=== PATIENT | female | born 1935 | race Hispanic/Latino ===

== ENCOUNTER 2017-12-26 11:17 | Emergency (ER) | payer OTHER, MEDICAID ==
[2017-12-26 12:27] LABS: Absolute Lymphocytes (CBC) 0.4 K/uL (0.7-4.9); Absolute Monocytes 0.3 K/uL (0.1-1.3); Absolute Neutrophil 2.7 K/uL (1.8-8.0); Basophils % 7.4 % (0-1.3); Eosinophils % 3.9 % (0-4.4); Hematocrit 35.8 % (36.0-45.0); Lymphocytes % 9.8 % (15.3-44.8); MCH 31.4 pg (27.0-35.0); MCV 90.5 fL (80-100); MPV 8.7 fL (7.6-11.3); Monocytes % 8.9 % (3.3-12.3); RBC Red Blood Cell Count 3.95 M/uL (3.86-4.86)
[2017-12-26] MEDS ORDERED: ALBUTEROL 2.5 MG/3 ML NEB SOL ONE (12:38)
[2017-12-26] MEDS ORDERED: predniSONE 20 MG TAB ONE (12:38)
[2017-12-26] MEDS ORDERED: IPRATROPIUM BROM 0.5MG/2.5ML ONE (12:38)
--- NOTE | 2017-12-26 12:38 | RAD REPORT ---
EXAM DESCRIPTION: RAD - Chest Pa And Lat (2 Views) - 12/26/2017 12:29 pm CLINICAL HISTORY: COPD Chest pain. COMPARISON: Chest Single View dated 02/20/2016; CHEST SINGLE VIEW dated 05/05/2015; CHEST SINGLE VIEW dated 02/13/2011; CHEST PA AND LAT 2 VIEW dated 02/08/2011 FINDINGS: Mild basilar lung opacity is seen on the left associated with a small left pleural effusio n, suggesting developing pneumonia. The heart is mildly prominent size. No displaced fractures. IMPRESSION: Developing left base pneumonia suspected.
[2017-12-26 12:39] LABS: Protime INR 0.98
[2017-12-26 12:52] LABS: BUN Blood Urea Nitrogen 11 mg/dL (7-18); Bicarbonate 27 mmol/L (21-32); Glucose Level 86 mg/dL (74-106); NT PRO-BNP 467 pg/mL (<450); Sodium Level 138 mmol/L (136-145); Troponin (Emerg Dept Use Only) < 0.02 ng/mL (0.0-0.045)
[2017-12-26 12:53] LABS: Blood Morphology Comment NOT SEEN (NOT SEEN); Platelet Estimate ADEQ; Urine White Blood Cell Casts OK
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
[2017-12-26 14:05] VITALS: O2SAT 99
[2017-12-26 14:06] VITALS: BP 168/82; TEMP 97.9
--- NOTE | 2017-12-26 22:07 | EKG ---
Test Date: 2017-12-26 Test Time: 11:42:27 Senior Adults Director: DIETER MEASUREMENT RESULTS: Intervals: Rate: 66 NH: 316 QRSD: 64 QT: 416 QTc: 436 Hibbs: P: 110 NH: 316 QRS: -40 T: -4 INTERPRETIVE STATEMENTS: Sinus rhythm with 1st degree AV block Left axis deviation Inferior infarct, age undetermined Anterior infarct, age undetermined Abnormal ECG Compared to ECG 02/20/2016 10:52:26 No significant changes Electronically Signed On 12-26-17 22:06:12 TABLEAU ANALYST by Thom Bautista
== END 2017-12-26 13:53 | disposition home or self-care (01) ==
LOC: ER 11:17
DX: J18.1 Lobar pneumonia, unspecified organism (principal); R94.31 Abnormal electrocardiogram [ECG] [EKG]; I25.2 Old myocardial infarction; I44.0 Atrioventricular block, first degree
CPT/HCPCS: 36415; 71046; 80048; 83880; 84484; 85025; 85610; 87804; 93005; 99284; J7512

== ENCOUNTER 2018-02-02 12:44 | Emergency (ER) | payer MEDICAID, OTHER ==
[2018-02-02] MEDS ORDERED: ALBUTEROL 2.5 MG/3 ML NEB SOL ONE (14:17)
[2018-02-02 14:45] LABS: Urine Bacteria <20 /HPF (<20); Urine Culture Reflex Order NOT NEEDED; Urine RBC NONE SEEN /HPF (NONE SEEN)
--- NOTE | 2018-02-02 14:47 | RAD REPORT ---
EXAM DESCRIPTION: Janeth Single View02/02/2018 2:18 pm CLINICAL HISTORY: Cough COMPARISON: December 2017 FINDINGS: Lungs are hyperaerated. The lungs appear clear of acute infiltrate. The heart is normal si ze IMPRESSION: No acute abnormalities displayed
--- NOTE | 2018-02-02 15:33 | EKG ---
Test Date: 2018-02-02 Test Time: 14:51:25 Payroll Services Analyst: DIETER MEASUREMENT RESULTS: Intervals: Rate: 95 WI: 284 QRSD: 68 QT: 434 QTc: 545 [place]: P: 77 WI: 284 QRS: -59 T: 66 INTERPRETIVE STATEMENTS: Sinus rhythm with 1st degree AV block Left anterior fascicular block Anterior infarct, age undetermined Prolonged QT Abnormal ECG Compared to ECG 12/26/2017 11:42:27 Left anterior fascicular block now present Prolonged QT interval now present Left-axis deviation no longer present Myocardial infarct finding still present Electronically Signed On 02-02-18 15:32:51 SENIOR CIVIL ENGINEER by Bryon Dsouza
[2018-02-02 15:51] LABS: Absolute Lymphocytes (CBC) 1.4 K/uL (0.7-4.9); Absolute Monocytes 0.6 K/uL (0.1-1.3); Absolute Neutrophil 11.2 K/uL (1.8-8.0); Basophils % 0.6 % (0-1.3); Eosinophils % 0.4 % (0-4.4); Hematocrit 41.1 % (36.0-45.0); Lymphocytes % 10.3 % (15.3-44.8); Monocytes % 4.8 % (3.3-12.3)
[2018-02-02 16:01] LABS: ALT/SGPT 30 U/L (12-78); AST/SGOT 37 U/L (15-37); Albumin 3.6 g/dL (3.4-5.0); Alkaline Phosphatase 162 U/L (45-117); BUN Blood Urea Nitrogen 16 mg/dL (7-18); Bicarbonate 28 mmol/L (21-32); Bilirubin Direct 0.3 mg/dL (0-0.2); Bilirubin Total 0.9 mg/dL (0.2-1.0); Glucose Level 92 mg/dL (74-106); Magnesium 2.1 mg/dL (1.8-2.4); Potassium 3.9 mmol/L (3.5-5.1); Protein, Total 7.9 g/dL (6.4-8.2); Sodium Level 134 mmol/L (136-145); Troponin (Emerg Dept Use Only) < 0.02 ng/mL (0.0-0.045)
[2018-02-02 16:42] LABS: Urine Blood TRACE (NEG); Urine Glucose NEGATIVE (NEG); Urine Protein NEGATIVE (NEG); Urine Specific Gravity 1.015 (1.005-1.030)
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
[2018-02-02] MEDS ORDERED: KETOROLAC 30 MG/ML INJ ONE (17:11)
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
[2018-02-02] MEDS ORDERED: NA CHLORIDE 0.9% 500 ML ONE (17:41)
[2018-02-02] MEDS ORDERED: levoFLOXacin 500 MG TAB ONE (17:41)
[2018-02-02 20:04] VITALS: TEMP 99.6
[2018-02-02 20:07] VITALS: O2SAT 95
[2018-02-02 20:08] VITALS: BP 162/57
== END 2018-02-02 18:46 | disposition home or self-care (01) ==
LOC: ER 12:44
DX: E86.9 Volume depletion, unspecified (principal); J40 Bronchitis, not specified as acute or chronic; R53.81 Other malaise; R53.83 Other fatigue; I10 Essential (primary) hypertension; I25.2 Old myocardial infarction; G20 Parkinson's disease; Z88.0 Allergy status to penicillin; Z88.2 Allergy status to sulfonamides; Z88.5 Allergy status to narcotic agent; Z88.8 Allergy status to other drugs, medicaments and biological substances
CPT/HCPCS: 36415; 71045; 74176; 76377; 80048; 80076; 81003; 81015; 83735; 84145; 84484; 85025; 87040; 87077; 87086; 87088; 87186; 87804; 93005; 96361; 96374; 99285

== ENCOUNTER 2018-09-12 18:56 | Observation (INO) | payer OTHER ==
[2018-09-12] MEDS ORDERED: ONDANSETRON 4 MG/2 ML VIAL ONE (19:40)
[2018-09-12] MEDS ORDERED: NA CHLORIDE 0.9% 1,000 ML ONE (19:40)
--- NOTE | 2018-09-12 19:52 | RAD REPORT ---
EXAM DESCRIPTION: CT - Head Brain Wo Cont - 09/12/2018 7:43 pm CLINICAL HISTORY: Headache, vomiting COMPARISON: February 2016 TECHNIQUE: Axial 5 mm thick images of the head were obtained without IV contrast. All CT scans are performed using dose optimization technique as appropriate and may include automated exposure control or mA/KV adjustment according to patient size. FINDINGS: No intracranial hemorrhage, mass, edema or shift of mid-line structures. No acute cortical based infarction. No cortical edema or sulcal effacement. Atrophy and chronic ischemic changes are m ild and stable. Ventricles are in proportion. No abnormal extra-axial fluid collections. Intracranial findings are stable since comparison. Mastoid air cells and visualized portions of the paranasal sinuses are clear. No acute bony findings. IMPRESSION: Negative non-contrast CT head examination for acute finding. Mild atrophy and chronic ischemic change matching comparison.
--- NOTE | 2018-09-12 19:59 | RAD REPORT ---
EXAM DESCRIPTION: RAD - Chest Single View - 09/12/2018 7:36 pm CLINICAL HISTORY: Cough, hypertension, shortness of breath COMPARISON: January 2018 TECHNIQUE: AP portable chest image was obtained 1938 hour . FINDINGS: Chronic interstitial opacification is present. Left pericardial fat pad noted. No acute rocio ng parenchymal process seen. Heart and vasculature are normal. No measurable pleural effusion and no pneumothorax. No acute bony abnormality seen. No acute aortic findings suspected. IMPRESSION: Chronic interstitial lung disease similar to comparison. No acute chest finding.
[2018-09-12 20:09] LABS: Absolute Lymphocytes (CBC) 1.3 K/uL (0.7-4.9); Basophils % 1.1 % (0-1.3); Hematocrit 45.6 % (36.0-45.0); Lymphocytes % 17.3 % (15.3-44.8); MPV 8.6 fL (7.6-11.3); RBC Red Blood Cell Count 4.97 M/uL (3.86-4.86)
[2018-09-12 20:10] LABS: Protime INR 0.96
[2018-09-12 20:27] LABS: ALT/SGPT 20 U/L (12-78); AST/SGOT 20 U/L (15-37); Albumin 4.3 g/dL (3.4-5.0); Alkaline Phosphatase 139 U/L (45-117); BUN Blood Urea Nitrogen 19 mg/dL (7-18); Bicarbonate 29 mmol/L (21-32); Bilirubin Direct 0.3 mg/dL (0-0.2); Bilirubin Total 1.4 mg/dL (0.2-1.0); Glucose Level 102 mg/dL (74-106); Lipase 219 U/L (73-393); Magnesium 2.2 mg/dL (1.8-2.4); NT PRO-BNP 136 pg/mL (<450); Potassium 3.7 mmol/L (3.5-5.1); Protein, Total 8.4 g/dL (6.4-8.2); Sodium Level 139 mmol/L (136-145); Troponin (Emerg Dept Use Only) < 0.02 ng/mL (0.0-0.045)
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
[2018-09-12 21:41] LABS: Urine Blood TRACE (NEG); Urine Glucose NEGATIVE (NEG); Urine Protein 1+ (NEG); Urine Specific Gravity 1.025 (1.005-1.030)
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
[2018-09-12] MEDS ORDERED: METOPROLOL TAR 50 MG TAB ONE (22:26)
[2018-09-12] MEDS ORDERED: ONDANSETRON 4 MG/2 ML VIAL IV PRN (23:43)
[2018-09-12] MEDS ORDERED: ACETAMINOPHEN 500 MG TAB PO PRN (23:43)
[2018-09-12] MEDS ORDERED: IPRATROPIUM BROM 0.5MG/2.5ML NEB PRN (23:43)
[2018-09-12] MEDS ORDERED: HYDRALAZINE HCL 20 MG/ML VIAL IV PRN (23:43)
[2018-09-12] MEDS ORDERED: NA CHLORIDE 0.9% 1,000 ML IV SCH (23:43)
[2018-09-12] MEDS ORDERED: ALBUTEROL 2.5 MG/3 ML NEB SOL NEB PRN (23:43)
[2018-09-12 23:45] VITALS: BMI 26.0
[2018-09-13 04:38] LABS: CKMB Creatine Kinase MB 1.4 ng/mL (0.3-3.6); Creatine Phosphokinase 63 U/L (26-192); Magnesium 2.1 mg/dL (1.8-2.4); Potassium 3.5 mmol/L (3.5-5.1); Thyroid Stimulating Hormone 1.85 uIU/mL (0.360-3.740); Troponin I < 0.02 ng/mL (0.0-0.045)
[2018-09-13] MEDS ORDERED: METOPROLOL TAR 25 MG TAB PO SCH (06:00)
--- NOTE | 2018-09-13 07:10 | EKG ---
Test Date: 2018-09-12 Test Time: 20:18:05 Car Cleaner: JOURDAN MEASUREMENT RESULTS: Intervals: Rate: 86 OH: 328 QRSD: 72 QT: 362 QTc: 433 Cope: P: 88 OH: 328 QRS: -64 T: 50 INTERPRETIVE STATEMENTS: Sinus rhythm with 1st degree AV block Incomplete right bundle branch block Left anterior fascicular block Cannot rule out Inferior infarct (masked by fascicular block?), age undetermined Anterior infarct, age undetermined Abnormal ECG Compared to ECG 02/02/2018 14:51:25 Incomplete right bundle branch block now present Myocardial infarct finding still present Electronically Signed On 09-13-18 07:10:04 CDT by Thom Bautista
[2018-09-13] MEDS ORDERED: ARFORMOTEROL TARTRATE 15 MCG/2 ML VIAL.NEB NEB SCH (08:00)
[2018-09-13] MEDS ORDERED: ASPIRIN EC 81 MG TAB PO SCH (09:00)
[2018-09-13] MEDS ORDERED: ENOXAPARIN 30 MG/0.3 ML SQ SCH (09:00)
[2018-09-13] MEDS ORDERED: LISINOPRIL 10 MG TAB PO SCH (09:00)
[2018-09-13] MEDS ORDERED: LORAZEPAM 0.5 MG TABLET PO ONE (09:10)
--- NOTE | 2018-09-13 10:30 | RAD REPORT ---
EXAM DESCRIPTION: MRI - Brain Wo Cont - 09/13/2018 10:17 am CLINICAL HISTORY: CVA/dizziness/hypertension emergency COMPARISON: 2016 MRI TECHNIQUE: Axial, sagittal, and coronal magnetic images of the brain were obtained. Contrast was not requested FINDINGS: Mild to moderate signal within periventricular, deep and subcortical white matter is witho ut significant change. Small old left thalamus lacunar infarction Diffusion-weighted/ADC mapping does not reveal evidence of acute infarction. The ventricles are normal caliber. An extra-axial fluid collection is not present The sinuses and mastoids are clear. IMPRESSION: Mild to moderate signal within periventricular, deep and subcortical white matter is wit hout significant change likely ischemic changes secondary to small vessel disease
--- NOTE | 2018-09-13 10:37 | RAD REPORT ---
EXAM DESCRIPTION: MRI - MRA Neck W/Wo Cont - 09/13/2018 10:16 am CLINICAL HISTORY: CVA/dizziness/hypertension emergency COMPARISON: None. TECHNIQUE: Magnetic resonance angiogram of the neck was performed. 13 cc MultiHance was administered intravenously. 3D MIPS reconstruction performed FINDINGS: Mild narrowing of the proximal right subclavian artery The proximal left internal carotid artery is tortuous. Mild plaque is present within the internal carotid arteries. Mild to moderate stenosis involves the proximal left external carotid artery. An aneurysm is not seen . The vertebral arteries are codominant without visualization of an abnormality. IMPRESSION: Mild plaque within the internal carotid arteries NASCET criteria used. Mild 0-49% stenosis Moderate 50-69% stenosis Severe 70-99% stenosis
[2018-09-13] MEDS ORDERED: hydrOXYzine HCl 25 MG TAB PO PRN (10:44)
--- NOTE | 2018-09-13 10:44 | RAD REPORT ---
EXAM DESCRIPTION: MRI - MRA Head Wo Cont - 09/13/2018 10:13 am CLINICAL HISTORY: CVA/dizziness/hypertension emergency COMPARISON: None. TECHNIQUE: Magnetic resonance angiogram was performed. 3D MIPS reconstruction performed FINDINGS: Images are mildly suboptimal secondary to patient motion artifact 3 millimeter bulge of the A 1 segment of the right anterior cerebral artery appears to be present. Ev aluation however is limited. The remainder of the anterior cerebral, middle cerebral, posterior cerebral, distal internal carotid and basilar arteries do not demonstrate a significant stenosis. An aneurysm is not displayed. IMPRESSION: 3 millimeter bulge of the A 1 segment of the right anterior cerebral artery appears to b e present. Evaluation however is limited. It is unclear if this represents a very small aneurysm or h as appearance of one secondary to technical factors. As a precaution it is recommended that the patie nt a followup MRA head in 3 months for re-evaluation
[2018-09-13] MEDS ORDERED: CYANOCOBALAMIN 1000MCG/ML INJ IM SCH (11:00)
[2018-09-13 11:04] VITALS: O2SAT 97
[2018-09-13] MEDS ORDERED: POTASSIUM CL SA 10 MEQ TAB PO ONE (11:20)
[2018-09-13 12:45] LABS: CKMB Creatine Kinase MB 1.5 ng/mL (0.3-3.6); Creatine Phosphokinase 68 U/L (26-192); Troponin I < 0.02 ng/mL (0.0-0.045)
--- NOTE | 2018-09-13 13:00 | ECHO ---
HEIGHT: 5 ft 0 in WEIGHT: 133 lb 8 oz DATE OF STUDY: 09/13/[address]: Luis Hudson DO 2-DIMENSIONAL: YES M.MODE: YES DOPPLER: YES COLOR FLOW: YES TDS: NO PORTABLE: NO DEFINITY: NO BUBBLE STUDY: NO DIAGNOSIS: HYPERTENSION CARDIAC HISTORY: CATHERIZATION: YES SURGERY: NO PROSTHETIC VALVE: NO PACEMAKER: NO MEASUREMENTS (cm) DIASTOLIC (NORMALS) SYSTOLIC (NORMALS) IVSd 0.9 (0.6-1.2) LA Diam 3.2 (1.9-4.0) LVEF 84% LVIDd 4.2 (3.5-5.7) LVIDs 2.0 (2.0-3.5) %FS 52% LVPWd 1.0 (0.6-1.2) Ao Diam 2.6 (2.0-3.7) 2 DIMENSIONAL ASSESSMENT: RIGHT ATRIUM: NORMAL LEFT ATRIUM: NORMAL RIGHT VENTRICLE: NORMAL LEFT VENTRICLE: NORMAL TRICUSPID VALVE: NORMAL MITRAL VALVE: NORMAL PULMONIC VALVE: NORMAL AORTIC VALVE: NORMAL PERICARDIAL EFFUSION: NONE AORTIC ROOT: NORMAL LEFT VENTRICULAR WALL MOTION: NORMAL. DOPPLER/COLOR FLOW: MILD AORTIC, MITRAL AND TRICUSPID REGURGITATION. NORMAL RIGHT VENTRICULAR SYSTOLIC PRESSURE. COMMENTS: NORMAL 2D ECHO. MILD AORTIC, MITRAL AND TRICUSPID REGURGITATION. TECHNOLOGIST: ALE P[place]TMAN
[2018-09-13] MEDS ORDERED: ROPINIROLE HCL 1 MG TAB PO SCH (14:00)
[2018-09-13 14:52] VITALS: BP 147/59; TEMP 98
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
[2018-09-14] MEDS ORDERED: LEVOTHYROXINE SOD 0.05 MG TABLET PO SCH (06:00)
[2018-09-14] MEDS ORDERED: PANTOPRAZOLE 40MG TABLET PO SCH (06:30)
[2018-09-14] MEDS ORDERED: predniSONE 10 MG TAB PO SCH (09:00)
[2018-09-14] MEDS ORDERED: LISINOPRIL 10 MG TAB PO SCH (09:00)
[2018-09-14] MEDS ORDERED: HOME MED 1 EA UNK (Fluticasone/Vilanterol [Breo Ellipta 200-25 Mcg Inh] 1 EACH) IH SCH (09:00)
[2018-09-14] MEDS ORDERED: DULOXETINE 30 MG CAP PO SCH (09:00)
== END 2018-09-13 14:40 | disposition home or self-care (01) ==
LOC: ER 18:56 → ERHOLD 22:04 → 4TH 22:55
PROVIDERS: ADMIT Family Medicine; ATTEND Family Medicine
DX: I16.0 Hypertensive urgency (principal); J44.9 Chronic obstructive pulmonary disease, unspecified; F03.90 Unspecified dementia, unspecified severity, without behavioral disturbance, psychotic disturbance, mood disturbance, and anxiety; F44.5 Conversion disorder with seizures or convulsions; N17.9 Acute kidney failure, unspecified; I25.10 Atherosclerotic heart disease of native coronary artery without angina pectoris; G47.30 Sleep apnea, unspecified; I10 Essential (primary) hypertension; I25.2 Old myocardial infarction; G20 Parkinson's disease; I34.0 Nonrheumatic mitral (valve) insufficiency; I07.1 Rheumatic tricuspid insufficiency; I35.1 Nonrheumatic aortic (valve) insufficiency; I45.2 Bifascicular block; R94.31 Abnormal electrocardiogram [ECG] [EKG]; Z91.128 Patient's intentional underdosing of medication regimen for other reason; Z86.73 Personal history of transient ischemic attack (TIA), and cerebral infarction without residual deficits; I65.23 Occlusion and stenosis of bilateral carotid arteries
CPT/HCPCS: 96361; 93005; 93306; 87088; 85025; 87086; 80048 ×2; 36415; 83735 ×2; 82550 ×2; 85610; 80061; 80076; 84443; 81003; 84484 ×3; 82553 ×2; 84439; 83690; 83880; 70450; 71045; 70551; 70544; 70549; 97161; 94660; 96374; 99285; A9577 ×2; J0360; J1650; J7605; J7030; J2405 ×2; G0378 ×2; 70553

== ENCOUNTER 2018-12-21 11:56 | Emergency (ER) | payer OTHER ==
--- NOTE | 2018-12-21 12:56 | RAD REPORT ---
EXAM DESCRIPTION: RAD - Chest Single View - 12/21/2018 12:50 pm CLINICAL HISTORY: CHEST PAIN Chest pain. COMPARISON: Chest Single View dated 09/12/2018; Chest Single View dated 02/02/2018; Chest Pa And Lat ( 2 Views) dated 12/26/2017; Chest Single View dated 02/20/2016 FINDINGS: Portable technique limits examination quality. The lungs are mildly emphysematous but grossly clear. The heart is normal in size. No displaced fract ures. IMPRESSION: Mild COPD.
[2018-12-21 13:10] LABS: Absolute Lymphocytes (CBC) 1.4 K/uL (0.7-4.9); Basophils % 1.3 % (0-1.3); Hematocrit 40.7 % (36.0-45.0); Lymphocytes % 24.9 % (15.3-44.8)
[2018-12-21 13:11] LABS: Protime INR 0.94
[2018-12-21 13:27] LABS: ALT/SGPT 18 U/L (12-78); AST/SGOT 19 U/L (15-37); Alkaline Phosphatase 112 U/L (45-117); BUN Blood Urea Nitrogen 15 mg/dL (7-18); Bicarbonate 29 mmol/L (21-32); Bilirubin Direct 0.3 mg/dL (0-0.2); Bilirubin Total 1.2 mg/dL (0.2-1.0); Glucose Level 97 mg/dL (74-106); Magnesium 2.2 mg/dL (1.8-2.4); NT PRO-BNP 81 pg/mL (<450); Potassium 3.4 mmol/L (3.5-5.1); Protein, Total 7.4 g/dL (6.4-8.2); Sodium Level 142 mmol/L (136-145); Troponin (Emerg Dept Use Only) < 0.02 ng/mL (0.0-0.045)
--- NOTE | 2018-12-21 13:52 | RAD REPORT ---
EXAM DESCRIPTION: CT - Abdomen Pelvis W Contrast - 12/21/2018 1:42 pm CLINICAL HISTORY: Abdominal pain COMPARISON: 2016 TECHNIQUE: Computed axial tomography of the abdomen pelvis was obtained. 100 cc Isovue-300 was admin istered intravenously. Oral contrast was not requested which limits evaluation of bowel. All CT scans are performed using dose optimization technique as appropriate and may include automated exposure control or mA/KV adjustment according to patient size. FINDINGS: Areas of scarring are present within right anterior lung base. The liver, spleen, pancreas, adrenal and kidneys appear unremarkable. There is no evidence of diverticulitis. Normal appendix Small hiatal hernia. Hysterectomy IMPRESSION: No acute abnormality is displayed.
--- NOTE | 2018-12-21 14:30 | EKG ---
Test Date: 2018-12-21 Test Time: 12:04:47 [facility]: [facility]ATA MEASUREMENT RESULTS: Intervals: Rate: 82 PA: 326 QRSD: 70 QT: 388 QTc: 453 Edna: P: 86 PA: 326 QRS: -66 T: 40 INTERPRETIVE STATEMENTS: Sinus rhythm with 1st degree AV block Left axis deviation Inferior infarct, age undetermined Cannot rule out Anterior infarct, age undetermined Abnormal ECG Compared to ECG 09/12/2018 20:18:05 Left-axis deviation now present Incomplete right bundle-branch block no longer present Left anterior fascicular block no longer present Myocardial infarct finding still present Electronically Signed On 12-21-18 14:29:56 PORT TRAFFIC MANAGER by Bryon Dsouza
[2018-12-21 15:17] LABS: Urine Blood NEGATIVE (NEG); Urine Glucose NEGATIVE (NEG); Urine Protein NEGATIVE (NEG); Urine Specific Gravity 1.015 (1.005-1.030)
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
[2018-12-21 17:37] VITALS: TEMP 97.8
[2018-12-21 17:38] VITALS: O2SAT 96
[2018-12-21 17:40] VITALS: BP 165/76
== END 2018-12-21 16:00 | disposition home or self-care (01) ==
LOC: ER 11:56
DX: R10.9 Unspecified abdominal pain (principal); I10 Essential (primary) hypertension; E78.5 Hyperlipidemia, unspecified; I25.2 Old myocardial infarction; G20 Parkinson's disease; Z88.0 Allergy status to penicillin; Z88.2 Allergy status to sulfonamides; Z88.5 Allergy status to narcotic agent; Z88.8 Allergy status to other drugs, medicaments and biological substances
CPT/HCPCS: 93005; 85025; 80048; 36415; 83735; 85610; 80076; 81003; 84484; 83880; 74177; 71045; 99285; Q9967

== ENCOUNTER 2020-06-15 15:54 | Observation (INO) | payer OTHER ==
[2020-06-15 16:44] LABS: Absolute Lymphocytes (CBC) 1.8 K/uL (0.7-4.9); Basophils % 1.1 % (0-1.3); Hematocrit 44.1 % (36.0-45.0); Lymphocytes % 18.2 % (15.3-44.8); RBC Red Blood Cell Count 4.76 M/uL (3.86-4.86)
[2020-06-15] MEDS ORDERED: NA CHLORIDE 0.9% 500 ML ONE ×2 (16:47→18:03)
[2020-06-15 16:50] LABS: Protime INR 0.97
[2020-06-15 17:09] LABS: Albumin 4.2 g/dL (3.4-5.0); Bilirubin Direct 0.3 mg/dL (0-0.2); Bilirubin Total 1.6 mg/dL (0.2-1.0); Magnesium 2.2 mg/dL (1.8-2.4); Potassium 3.7 mmol/L (3.5-5.1); Protein, Total 7.8 g/dL (6.4-8.2); Thyroid Stimulating Hormone 2.01 uIU/mL (0.360-3.740); Troponin (Emerg Dept Use Only) 0.03 ng/mL (0.0-0.045)
[2020-06-15 17:41] LABS: SARS-COV-2 RT PCR NEGATIVE (NEGATIVE)
--- NOTE | 2020-06-15 17:46 | RAD REPORT ---
EXAM DESCRIPTION: Janeth Single View06/15/2020 5:04 pm CLINICAL HISTORY: Chest pain COMPARISON: 2018 FINDINGS: The lungs appear clear of acute infiltrate. The heart is normal size IMPRESSION: No acute abnormalities displayed
[2020-06-15] MEDS ORDERED: METOPROLOL TARTRATE 5 MG/5 ML INJ IV ONE (18:03)
[2020-06-15] MEDS ORDERED: METOPROLOL TAR 25 MG TAB ONE (18:03)
[2020-06-15] MEDS ORDERED: ENOXAPARIN 60 MG/0.6 ML SQ ONE (18:04)
--- NOTE | 2020-06-15 18:22 | ER ---
Nurse's Notes [facility] Name: Madiha Breaux Age: 85 yrs Sex: Female : 1935 Arrival Date: 06/15/2020 Time: 15:56 Bed 4 Private MD: Diagnosis: Atrial fibrillation and flutter;Chest pain, unspecified;Shortness of breath Presentation: 06/15 16:18 Chief complaint: Patient's son or daughter states: CP/SOB x3 DAYS. Coronavirus screen: bp At this time, the client does not indicate any symptoms associated with coronavirus-19. Ebola Screen: No symptoms or risks identified at this time. Initial Sepsis Screen: Does the patient meet any 2 criteria? HR > 90 bpm. No. Patient's initial sepsis screen is negative. Does the patient have a suspected source of infection? No. Patient's initial sepsis screen is negative. Risk Assessment: Do you want to hurt yourself or someone else? Patient reports no desire to harm self or others. Onset of symptoms is unknown. 16:18 Method Of Arrival: Wheelchair bp 16:18 Acuity: DAMIR 2 bp Triage Assessment: 16:20 General: Appears distressed, uncomfortable, Behavior is cooperative, appropriate for bp age, anxious. Pain: Complains of pain in chest. EENT: No deficits noted. Neuro: No deficits noted. Cardiovascular: Rhythm is sinus tachycardia. Respiratory: Reports shortness of breath. GI: No signs and/or symptoms were reported involving the gastrointestinal system. : No signs and/or symptoms were reported regarding the genitourinary system. Derm: No deficits noted. Musculoskeletal: No deficits noted. Historical: - Allergies: 16:20 Codeine; bp 16:20 Demerol; bp 16:20 lamital; bp 16:20 PENICILLINS; bp 16:20 Sulfa (Sulfonamide Antibiotics); bp - Home Meds: 16:20 amlodipine 5 mg tab 1 tab once daily [Active]; clonazepam 0.5 mg Oral tab [Active]; bp duloxetine 60 mg Oral cpDR 1 cap once daily [Active]; hydroxyzine HCl 25 mg Oral tab [Active]; lisinopril 20 mg Oral tab 1 tab once daily [Active]; omeprazole 20 mg Oral TbEC [Active]; pramipexole 1 mg Oral tab 3 times per day [Active]; primidone 50 mg Oral tab [Active]; ropinirole 1 mg Oral tab 3 times per day [Active]; tamsulosin 0.4 mg Oral cp24 1 cap once daily [Active]; - PMHx: 16:20 CVA; Hyperlipidemia; Hypertension; Myocardial infarction; Parkinsons; bp - Immunization history:: Adult Immunizations unknown. - Social history:: Smoking status: unknown. Screenin:22 Abuse screen: Denies threats or abuse. Denies injuries from another. Nutritional bp screening: No deficits noted. Tuberculosis screening: No symptoms or risk factors identified. Fall Risk None identified. Assessment: 16:22 General: SEE TRIAGE NOTE. bp 16:30 General: Appears in no apparent distress. comfortable, Behavior is calm, cooperative, ld1 appropriate for age. Pain: Denies pain. Pain: Denies pain. Complains of pain in anterior aspect of left upper chest and left breast Pain does not radiate. Pain currently is 5 out of 10 on a pain scale. Quality of pain is described as heavy, pressure, Pain began 2-3 days ago. Is continuous. Neuro: Level of Consciousness is awake, alert, obeys commands, Oriented to person, place, time, situation. Cardiovascular: Capillary refill < 3 seconds Patient's skin is warm and dry. Respiratory: Airway is patent Respiratory effort is even, unlabored, Respiratory pattern is regular, symmetrical. GI: Abdomen is flat, non-distended. : No signs and/or symptoms were reported regarding the genitourinary system. EENT: No signs and/or symptoms were reported regarding the EENT system. Derm: No signs and/or symptoms reported regarding the dermatologic system. 17:56 Reassessment: Patient is alert, oriented x 3, equal unlabored respirations, skin ld1 warm/dry/pink. Pt in bed with daughter at bedside. Waiting on results. Denies any concerns at this time. 18:45 Reassessment: No changes from previously documented assessment. Patient and/or family ld1 updated on plan of care and expected duration. Pain level reassessed. Pt c/o chest pain 8/10. Notified ERP. See MAR for orders. 20:00 Reassessment: Patient reports chest pain, 6/10 on pain scale; daughter at bedside, lp1 aware of pending plan of admission. 20:00 Neuro: Level of Consciousness is awake, alert, obeys commands. Cardiovascular: lp1 Patient's skin is warm and dry. Respiratory: Respiratory effort is even, unlabored. Derm: Skin is thin, Skin is dry, Skin is pink, warm \T\ dry. 20:28 Reassessment: Hospitalist at bedside to discuss care with patient and patient's lp1 daughter. Vital Signs: 16:18 BP 140 / 75; Pulse 134; Resp 24; Temp 97.5; Pulse Ox 95% ; Weight 56.7 kg; bp 16:29 BP 150 / 63; Pulse 124; Resp 15; Temp 97.5(O); Pulse Ox 97% 2 lpm ; Weight 56.7 kg; ld1 Height 5 ft. 3 in. (160.02 cm); Pain 0/10; 17:00 BP 122 / 69; Pulse 88; Resp 14; Pulse Ox 96% ; sv 17:56 BP 136 / 58; Pulse 75; Resp 15; Pulse Ox 98% on 2 lpm NC; Pain 4/10; ld1 18:45 BP 2 / 63; Pulse 77; Resp 16; Pulse Ox 97% on R/A; ld1 19:30 BP 171 / 64; Pulse 60; Resp 17; Pulse Ox 97% on 2 lpm NC; lp1 20:00 BP 192 / 58; Pulse 56; Resp 14; Pulse Ox 98% on 2 lpm NC; Pain 6/10; lp1 21:24 BP 192 / 64; Pulse 58; Resp 14; Temp 97.8(O); Pulse Ox 96% on 2 lpm NC; lp1 16:29 Body Mass Index 22.14 (56.70 kg, 160.02 cm) ld1 ED Course: 15:56 Patient arrived in ED. bg2 16:13 Donnell Omer NP is PHCP. pm1 16:13 Hao Joyce MD is Attending Physician. pm1 16:15 Inge Holliday, AMY is Primary Nurse. ld1 16:19 Triage completed. bp 16:21 Arm band placed on. bp 16:22 Patient has correct armband on for positive identification. Placed in gown. Bed in low bp position. Call light in reach. Side rails up X2. contact lens edge buffer on. Pulse ox on. NIBP on. 16:29 EKG completed in triage. Results shown to MD. ld1 16:30 No provider procedures requiring assistance completed. Inserted saline lock: 20 gauge ld1 in right forearm, using aseptic technique. Oxygen administration via nasal cannula \T\ 2L/min. 16:30 Initial lab(s) drawn, by ED staff, sent to lab. EKG done, by ED staff, reviewed by ld1 Donnell Omer NP COVID swab sent to lab. Flu and/or RSV swab sent to lab. 17:02 XRAY Chest (1 view) In Process Unspecified. EDMS 17:33 Flu Sent. sv 17:34 Basic Metabolic Panel Sent. sv 17:34 CBC with Diff Sent. sv 17:34 NT PRO-BNP Sent. sv 17:34 Magnesium Sent. sv 17:34 LFT's Sent. sv 18:22 Desmond Molina PA is Hospitalizing Provider. pm1 20:06 Luis Hudson DO is Hospitalizing Provider. pm1 20:29 Patient admitted, IV remains in place. lp1 Administered Medications: 16:42 Drug: NS 0.9% 500 ml Route: IV; Rate: bolus; Site: right forearm; ld1 17:56 Follow up: Response: No adverse reaction; IV Status: Completed infusion ld1 17:06 Not Given (Physician Discretion): Lopressor (metoprolol) 5 mg IVP once; Hold for SBP pm1 <100 or HR <60. 17:54 Drug: Lovenox (enoxaparin) 1 mg/kg Route: Sub-Q; Site: abdomen; ld1 17:56 Follow up: Response: No adverse reaction ld1 17:55 Drug: Lopressor (metoprolol TARTRATE)) 25 mg Route: PO; ld1 18:40 Follow up: Response: No adverse reaction ld1 17:55 Drug: Lopressor (metoprolol) 2.5 mg Route: IVP; Site: left forearm; ld1 18:40 Follow up: Response: No adverse reaction ld1 17:55 Drug: NS 0.9% 500 ml Volume: 500 ml; Route: IV; Rate: 1 bolus; Site: right forearm; ld1 18:43 Follow up: Response: No adverse reaction; IV Status: Completed infusion ld1 18:56 Drug: morphine 2 mg Route: IVP; Site: right forearm; ld1 20:27 Drug: morphine 2 mg Route: IVP; Site: right forearm; lp1 21:22 Follow up: Response: Pain is decreased lp1 Outcome: 18:22 Decision to Hospitalize by Provider. pm1 20:29 Condition: stable lp1 20:29 Instructed on the need for admit. 21:55 Admitted to Tele with chart, Other Bedside report to be given lp1 22:04 Patient left the ED. mw2 Signatures: Dispatcher [employer] EDMS Jodi Bellamy RN Kiersten Heart RN RN lp1 Sheeba Jacobson 2 Donnell Omer, CLIENT SERVICE ADMINISTRATOR CLIENT SERVICE ADMINISTRATOR pm1 Seth Morse RN RN bp Keyshawn Canseco mw2 Inge Holliday, AMY RN ld1 Corrections: (The following items were deleted from the chart) 20:29 20:00 BP 192 / 58; Pulse 56bpm; Resp 14bpm; Pulse Ox 98% 2 lpm Nasal Cannula; lp1 lp1
--- NOTE | 2020-06-15 18:22 | EDPHYS ---
Physician Documentation [facility] Name: Madiha Breaux Age: 85 yrs Sex: Female : 1935 Arrival Date: 06/15/2020 Time: 15:56 Bed 4 Private MD: Hao Mahmood HPI: 06/15 16:47 This 85 yrs old Female presents to ER via Wheelchair with complaints of Chest pm1 Pain, Breathing Difficulty. 16:47 The patient or guardian reports chest pain that is located primarily in the anterior pm1 aspect of left upper chest. Onset: 3 day(s) ago. The pain does not radiate. Associated signs and symptoms: Pertinent positives: cough, shortness of breath, Pertinent negatives: abdominal pain, diaphoresis, dizziness, headache, nausea, vomiting. The chest pain is described as aching. Duration: The patient or guardian reports a single episode, that is still ongoing. Modifying factors: The symptoms are alleviated by nothing. the symptoms are aggravated by nothing. Severity of pain: in the emergency department the pain is actually worse. The patient has not recently seen a physician. Historical: - Allergies: 16:20 Codeine; bp 16:20 Demerol; bp 16:20 lamital; bp 16:20 PENICILLINS; bp 16:20 Sulfa (Sulfonamide Antibiotics); bp - Home Meds: 16:20 amlodipine 5 mg tab 1 tab once daily [Active]; clonazepam 0.5 mg Oral tab [Active]; bp duloxetine 60 mg Oral cpDR 1 cap once daily [Active]; hydroxyzine HCl 25 mg Oral tab [Active]; lisinopril 20 mg Oral tab 1 tab once daily [Active]; omeprazole 20 mg Oral TbEC [Active]; pramipexole 1 mg Oral tab 3 times per day [Active]; primidone 50 mg Oral tab [Active]; ropinirole 1 mg Oral tab 3 times per day [Active]; tamsulosin 0.4 mg Oral cp24 1 cap once daily [Active]; - PMHx: 16:20 CVA; Hyperlipidemia; Hypertension; Myocardial infarction; Parkinsons; bp - Immunization history:: Adult Immunizations unknown. - Social history:: Smoking status: unknown. 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 16:47 Abdomen/GI: Negative for abdominal pain, nausea, vomiting, diarrhea, and constipation, Back: Negative for injury and pain, : Negative for injury, bleeding, discharge, and swelling, MS/Extremity: Negative for injury and deformity, Skin: Negative for injury, rash, and discoloration, Neuro: Negative for headache, weakness, numbness, tingling, and seizure. 16:47 Cardiovascular: Positive for chest pain, Negative for edema. 16:47 Respiratory: Positive for cough, shortness of breath. Exam: 16:47 Constitutional: This is a well developed, well nourished patient who is awake, alert, pm1 and in no acute distress. 16:47 Head/Face: Normocephalic, atraumatic. Eyes: Pupils equal round and reactive to light, extra-ocular motions intact. Lids and lashes normal. Conjunctiva and sclera are non-icteric and not injected. Cornea within normal limits. Periorbital areas with no swelling, redness, or edema. 16:47 Chest/axilla: Normal chest wall appearance and motion. Nontender with no deformity. No lesions are appreciated. 16:47 Back: No spinal tenderness. No costovertebral tenderness. Full range of motion. Skin: Warm, dry with normal turgor. Normal color with no rashes, no lesions, and no evidence of cellulitis. MS/ Extremity: Pulses equal, no cyanosis. Neurovascular intact. Full, normal range of motion. 16:47 ENT: External ear(s): are unremarkable, Posterior pharynx: is normal, airway is patent, no erythema, no exudate, no peritonsilar mass, no pooling of secretions, no swelling, no acute changes, Voice: is normal. 16:47 Cardiovascular: Rate: tachycardic, actual rate is 130 bpm, Rhythm: regular, Pulses: no pulse deficits are appreciated, Heart sounds: normal, normal S1and S2, no murmur, no rub, no gallop, Edema: is not appreciated. 16:47 ECG was reviewed by the Attending Physician. 16:47 Respiratory: Exam negative for acute changes, respiratory distress, shortness of breath, Breath sounds: are clear throughout. 16:47 Abdomen/GI: Inspection: abdomen appears normal, Palpation: abdomen is soft and non-tender, in all quadrants. 16:47 Neuro: Exam negative for acute changes, Orientation: is normal, Mentation: is normal, Motor: is normal, moves all fours, Sensation: is normal, no obvious gross deficits. Vital Signs: 16:18 BP 140 / 75; Pulse 134; Resp 24; Temp 97.5; Pulse Ox 95% ; Weight 56.7 kg; bp 16:29 BP 150 / 63; Pulse 124; Resp 15; Temp 97.5(O); Pulse Ox 97% 2 lpm ; Weight 56.7 kg; ld1 Height 5 ft. 3 in. (160.02 cm); Pain 0/10; 17:00 BP 122 / 69; Pulse 88; Resp 14; Pulse Ox 96% ; sv 17:56 BP 136 / 58; Pulse 75; Resp 15; Pulse Ox 98% on 2 lpm NC; Pain 4/10; ld1 18:45 BP 2 / 63; Pulse 77; Resp 16; Pulse Ox 97% on R/A; ld1 19:30 BP 171 / 64; Pulse 60; Resp 17; Pulse Ox 97% on 2 lpm NC; lp1 20:00 BP 192 / 58; Pulse 56; Resp 14; Pulse Ox 98% on 2 lpm NC; Pain 6/10; lp1 21:24 BP 192 / 64; Pulse 58; Resp 14; Temp 97.8(O); Pulse Ox 96% on 2 lpm NC; lp1 16:29 Body Mass Index 22.14 (56.70 kg, 160.02 cm) ld1 MDM: 16:14 Patient medically screened. [facility] 16:47 Data interpreted: Pulse oximetry: on room air is 96 %. Interpretation: normal. pm1 17:40 Data reviewed: vital signs. pm1 18:21 Counseling: I had a detailed discussion with the patient and/or guardian regarding: the pm1 historical points, exam findings, and any diagnostic results supporting the discharge/admit diagnosis, lab results, radiology results, the need for further work-up and treatment in the hospital. 20:11 Physician consultation: Desmond OCHOA was contacted at 20:11, regarding admission, pm1 patient's condition, and will see patient in ED. 06/15 16:23 Order name: Basic Metabolic Panel pm1 06/15 16:23 Order name: CBC with Diff pm1 06/15 16:23 Order name: LFT's pm06/15 16:23 Order name: Magnesium pm1 06/15 16:23 Order name: NT PRO-BNP pm1 06/15 16:23 Order name: PT-INR; Complete Time: 16:59 pm1 06/15 16:23 Order name: Troponin (emerg Dept Use Only); Complete Time: 17:13 pm1 06/15 16:24 Order name: Basic Metabolic Panel; Complete Time: 17:13 EDMS 06/15 16:24 Order name: CBC with Automated Diff; Complete Time: 16:59 EDMS 06/15 16:24 Order name: Liver (Hepatic) Function; Complete Time: 17:13 EDMS 06/15 16:24 Order name: Magnesium; Complete Time: 17:13 EDMS 06/15 16:24 Order name: NT PRO-BNP; Complete Time: 17:13 EDMS 06/15 16:26 Order name: Flu pm1 06/15 16:23 Order name: XRAY Chest (1 view); Complete Time: 17:47 pm1 06/15 16:23 Order name: EKG; Complete Time: 16:25 pm1 06/15 16:23 Order name: Cardiac monitoring; Complete Time: 16:41 pm1 06/15 16:48 Order name: Thyroid Stimulating Hormone; Complete Time: 17:13 EDMS 06/15 17:07 Order name: EKG; Complete Time: 17:08 pm1 06/15 17:41 Order name: COVID-19/FLU A+B; Complete Time: 17:46 EDMS 06/15 20:41 Order name: CONS Physician Consult EDMS 06/15 16:23 Order name: EKG - Nurse/Tech; Complete Time: 16:41 pm1 06/15 16:23 Order name: IV Saline Lock; Complete Time: 16:41 pm1 06/15 16:23 Order name: Labs collected and sent; Complete Time: 16:43 pm1 06/15 16:23 Order name: O2 Per Protocol; Complete Time: 16:43 pm1 06/15 16:23 Order name: O2 Sat Monitoring; Complete Time: 16:42 pm1 06/15 17:07 Order name: EKG - Nurse/Tech; Complete Time: 18:43 pm1 EC:47 Rate is 130 beats/min. Rhythm is regular, A flutter. No Q waves. T waves are Normal. No pm1 ST changes noted. Clinical impression: Atrial Flutter. 18:20 Rate is 74 beats/min. Rhythm is regular, Normal Sinus Rhythm with 1st degree heart pm1 block. No Q waves. T waves are Normal. No ST changes noted. Clinical impression: NSR with first degree block. Administered Medications: 16:42 Drug: NS 0.9% 500 ml Route: IV; Rate: bolus; Site: right forearm; ld1 17:56 Follow up: Response: No adverse reaction; IV Status: Completed infusion ld1 17:06 Not Given (Physician Discretion): Lopressor (metoprolol) 5 mg IVP once; Hold for SBP pm1 <100 or HR <60. 17:54 Drug: Lovenox (enoxaparin) 1 mg/kg Route: Sub-Q; Site: abdomen; ld1 17:56 Follow up: Response: No adverse reaction ld1 17:55 Drug: Lopressor (metoprolol TARTRATE)) 25 mg Route: PO; ld1 18:40 Follow up: Response: No adverse reaction ld1 17:55 Drug: Lopressor (metoprolol) 2.5 mg Route: IVP; Site: left forearm; ld1 18:40 Follow up: Response: No adverse reaction ld1 17:55 Drug: NS 0.9% 500 ml Volume: 500 ml; Route: IV; Rate: 1 bolus; Site: right forearm; ld1 18:43 Follow up: Response: No adverse reaction; IV Status: Completed infusion ld1 18:56 Drug: morphine 2 mg Route: IVP; Site: right forearm; ld1 20:27 Drug: morphine 2 mg Route: IVP; Site: right forearm; lp1 21:22 Follow up: Response: Pain is decreased lp1 Disposition: 06/16 09:53 Co-signature as Attending Physician, Hao Joyce MD I agree with the assessment and salvador plan of care. Disposition: 06/15/20 18:22 Hospitalization ordered by Luis Hudson for Observation. Preliminary diagnosis are Atrial fibrillation and flutter, Chest pain, unspecified, Shortness of breath. - Bed requested for Telemetry/MedSurg (observation). - Status is Observation. mw2 - Condition is Stable. - Problem is new. - Symptoms have improved. Signatures: Dispatcher [employer] EDVT Ghazal Yun RN Hao Elmore MD MD cha Pena, Laura, RN RN lp1 Donnell Omer, MEAT HANGER MEAT HANGER pm1 Seth Morse, RN RN Keyshawn Canseco mw2 Inge Holliday, RN RN ld1 Corrections: (The following items were deleted from the chart) 05 16:48 16:29 THYROID STIMULAT HORMONE+C.LAB.BRZ ordered. EDVT EDMS 16:57 16:27 Influenza Screen (A ordered. EDVT EDMS 16:58 16:24 CORONAVIRUS+MR.LAB.BRZ ordered. [facility] EDMS 20:06 18:22 Hospitalization Ordered by Desmond OCHOA for Observation. Preliminary diagnosis pm1 is Atrial fibrillation and flutter; Chest pain, unspecified; Shortness of breath. Bed requested for Telemetry/MedSurg (observation). Status is Observation. Condition is Stable. Problem is new. Symptoms have improved. pm1 20:54 20:06 06/15/2020 18:22 Hospitalization Ordered by Luis Hudson DO for Observation. mw Preliminary diagnosis is Atrial fibrillation and flutter; Chest pain, unspecified; Shortness of breath. Bed requested for Telemetry/MedSurg (observation). Status is Observation. Condition is Stable. Problem is new. Symptoms have improved. pm1 22:04 20:54 06/15/2020 18:22 Hospitalization Ordered by Luis Hudson DO for Observation. mw2 Preliminary diagnosis is Atrial fibrillation and flutter; Chest pain, unspecified; Shortness of breath. Bed requested for Telemetry/MedSurg (observation). Status is Observation. Condition is Stable. Problem is new. Symptoms have improved. mw
[2020-06-15] MEDS ORDERED: MORPHINE 2 MG/ML SYR ONE ×2 (19:12→20:41)
[2020-06-15] MEDS ORDERED: NITROGLYCERIN 0.4 MG/TAB SL PRN (21:10)
[2020-06-15] MEDS ORDERED: ACETAMINOPHEN 500 MG TAB PO PRN (21:10)
[2020-06-15] MEDS ORDERED: MORPHINE 2 MG/ML SYR IV PRN (21:10)
[2020-06-15] MEDS ORDERED: NA CHLORIDE 0.9% 1,000 ML IV SCH (21:10)
[2020-06-15] MEDS ORDERED: ONDANSETRON 4 MG/2 ML VIAL IV PRN (21:10)
[2020-06-15] MEDS ORDERED: HYDRALAZINE HCL 20 MG/ML VIAL IV PRN ×2 (21:10→22:49)
[2020-06-15] MEDS: INSULIN -REGULAR HUMAN 50 UNIT/0.5 ML ML SQ SCH (21:10)
[2020-06-15 22:30] VITALS: BMI 3605.0
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
[2020-06-15 22:40] VITALS: O2SAT 97
[2020-06-15] MEDS ORDERED: HYDRALAZINE HCL 20 MG/ML VIAL IV ONE (22:46)
[2020-06-16 03:57] LABS: Urine Appearance CLOUDY (Clear); Urine Bilirubin NEGATIVE (Negataive); Urine Blood NEGATIVE (Negative); Urine Color YELLOW (Yellow); Urine Glucose NEGATIVE (Negative); Urine Protein NEGATIVE (Negative); Urine Specific Gravity 1.015 (1.005-1.030)
[2020-06-16 03:59] LABS: Urine Microscopic Reflex ORDER UMIC
[2020-06-16 04:04] LABS: Absolute Lymphocytes (CBC) 1.3 K/uL (0.7-4.9); Basophils % 2.1 % (0-1.3); Hematocrit 38.4 % (36.0-45.0); Lymphocytes % 24.1 % (15.3-44.8); MPV 9.1 fL (7.6-11.3); RBC Red Blood Cell Count 4.15 M/uL (3.86-4.86)
[2020-06-16 04:21] LABS: Albumin 3.4 g/dL (3.4-5.0); Bilirubin Total 0.9 mg/dL (0.2-1.0); Phosphorus 3.4 mg/dL (2.5-4.9); Potassium 3.3 mmol/L (3.5-5.1); Protein, Total 6.5 g/dL (6.4-8.2)
[2020-06-16 04:39] LABS: Urine Bacteria >50 /HPF (<20); Urine RBC <5 /HPF (NONE SEEN)
[2020-06-16] MEDS ORDERED: METOPROLOL TAR 25 MG TAB PO SCH (06:00)
[2020-06-16] MEDS ORDERED: POTASSIUM 25 MEQ EFFERV TAB PO ONE (06:08)
[2020-06-16] MEDS ORDERED: POTASSIUM CL SA 10 MEQ TAB PO ONE (06:24)
[2020-06-16] MEDS: INSULIN -REGULAR HUMAN 50 UNIT/0.5 ML ML SQ SCH ×2 (07:30→11:30)
[2020-06-16] MEDS ORDERED: DULERA 200/5 (MOMETASONE/FORMOTEROL) INHALER IH SCH (08:00)
[2020-06-16] MEDS ORDERED: HEPARIN 5000 UNIT/ML 1 ML VIAL SQ SCH (09:00)
[2020-06-16] MEDS ORDERED: GLYCERIN OPTH SCH ×2 (09:00→21:00)
[2020-06-16] MEDS ORDERED: ASPIRIN EC 81 MG TAB PO SCH (09:00)
[2020-06-16] MEDS ORDERED: APIXABAN 5 MG TABLET PO SCH ×2 (09:00)
[2020-06-16] MEDS ORDERED: CARBOXYMETHYLCELLULOSE OPTH SCH ×2 (09:00→21:00)
--- NOTE | 2020-06-16 10:23 | P.DS ---
Admission Date: 06/15/20 Discharge Date: 06/16/20 Primary Care Provider: Dr. Nieto Disposition: ROUTINE DISCHARGE Discharge Condition: GOOD Reason for Admission: atrial flutter, chest pain Consultations: Cardiology-Dr. Dsouza Procedures: COVID: Negative CXR: CLINICAL HISTORY: Chest pain COMPARISON: 2019 FINDINGS: The lungs appear clear of acute infiltrate. The heart is normal size IMPRESSION: No acute abnormalities displayed Medical Problem List: Atrial fibrillation with RVR Hyperlipidemia Hypothyroidism COPD Brief History of Present Illness: 85 yo female with HTN, HLD, COPD, afib s/p cardiac ablation, h/o ME and CVA here today for 3 days of chest pain and SOB. She describes 8/10 left sided dull, heavy chest pain that is constant but worse with exertion. She reports feeling like she is about to pass out when she has the chest pain, and both of her arms will feel numb. She says she has noticed her BP has been higher when she is active. Does not take BP medications at home. When she rests the pain subsides but doesn't disappear. Her power press operator is Dr. Elizabeth who she last saw 2 years ago. EKG showed aflutter, rate 130bpm. Rate controlled with lopressor in the ED. BP 192/58 at bedisde. BUN 26, GFR 40, Glu 154. Patient was admitted for further evaluation and treatment. Hospital Course: Patient presented with chest pain and shortness of breath. Patient with history of atrial fibrillation, hypertension, hyperlipidemia. Patient also with history of cardiac ablation. She had been without medication as she recently moved back to the area. Blood pressures were elevated. Patient with atrial fibrillation upon admission. Patient was given IV metoprolol and hydralazine with improvement. Patient now in sinus rhythm. Patient seen and evaluated by cardiology. Patient without chest pain or shortness of breath. At discharge cardiology recommends to continue Eliquis 5 mg 1 pill twice daily for chronic anticoagulation therapy. Education provided. Education on Eliquis and atrial fibrillation provided. Recommend follow-up with cardiology in 1 week to follow- up hospitalization and continue her care. Patient had elevated blood pressure upon admission. Patient was given IV hydralazine and metoprolol. Patient not able to tolerate metoprolol due to low heart rate. Patient was given hydralazine instead. At discharge patient will continue with hydralazine 25 mg 1 pill twice daily for hypertension. Hold medication if blood pressure systolic less than 110. Recommend blood pressure less than 130/80. Further adjustment in medication can be done by PCP or cardiology. Recommend follow-up with cardiology within 1 week to follow-up his hospitalization and continue her care. Patient with hyperlipidemia. LDL elevated at 130. At discharge patient will continue with Lipitor 10 mg daily. Recommend to recheck fasting lipid panel in 4 to 6 weeks to monitor her progress. Further adjustment can be done by her PCP or cardiology. Patient with COPD. At discharge patient will continue with Symbicort 2 puffs t wice daily. Recommend follow-up with pulmonology as an outpatient to further monitor and address. Advance care planning addressed in detail. Patient is full code. Patient will go home at discharge. Vital Signs/Physical Exam: Temp Pulse Resp BP Pulse Ox 96.9 F 53 18 141/64 H 96 06/16/20 07:40 06/16/20 07:40 06/16/20 07:40 06/16/20 07:40 06/16/20 07:40 General: Alert, In no apparent distress, Oriented x3, Cooperative HEENT: Atraumatic Neck: Supple Respiratory: Clear to auscultation bilaterally, Normal air movement Cardiovascular: Normal pulses, Regular rate/rhythm Gastrointestinal: Normal bowel sounds, No tenderness, No masses, No rebound, No guarding Musculoskeletal: No erythema, No tenderness, No warmth Integumentary: No tenderness/swelling Neurological: Normal speech, Normal strength at 5/5 x4 extr, Normal tone, Normal affect Laboratory Data at Discharge: WBC 5.30 K/uL (4.3-10.9) D 06/16/20 02:56 Hgb 12.9 g/dL (12.0-15.0) 06/16/20 02:56 Hct 38.4 % (36.0-45.0) 06/16/20 02:56 Plt Count 198 K/uL (152-406) D 06/16/20 02:56 PT 11.2 SECONDS (9.5-12.5) 06/15/20 16:30 INR 0.97 06/15/20 16:30 Sodium 144 mmol/L (136-145) 06/16/20 02:56 Potassium 3.3 mmol/L (3.5-5.1) L 06/16/20 02:56 BUN 20 mg/dL (7-18) H 06/16/20 02:56 Creatinine 0.89 mg/dL (0.55-1.3) 06/16/20 02:56 Glucose 128 mg/dL (74-106) H 06/16/20 02:56 Phosphorus 3.4 mg/dL (2.5-4.9) 06/16/20 02:56 Magnesium 2.0 mg/dL (1.8-2.4) 06/16/20 02:56 Total Bilirubin 0.9 mg/dL (0.2-1.0) 06/16/20 02:56 AST 15 U/L (15-37) 06/16/20 02:56 ALT 15 U/L (12-78) 06/16/20 02:56 Alkaline Phosphatase 74 U/L (45-117) 06/16/20 02:56 Troponin I 0.04 ng/mL (0.0-0.045) 06/16/20 02:56 Triglycerides 104 mg/dL (<150) 06/16/20 02:56 Cholesterol 215 mg/dL (<200) H 06/16/20 02:56 HDL Cholesterol 64 mg/dL (40-60) H 06/16/20 02:56 Cholesterol/HDL Ratio 3.36 06/16/20 02:56 Home Medications: Carboxymethylcellulos/Glycerin [Refresh Relieva 0.5-0.9% Drop] 1 drop LEFT EYE DAILY 06/15/20 Latanoprost Ophth [Xalatan 0.005%*] 1 drop LEFT EYE BEDTIME 06/15/20 Propylene Glycol [Systane Balance] 2 drops LEFT EYE BEDTIME 06/15/20 Apixaban [Eliquis] 5 mg PO BID #60 tablet 06/16/20 Atorvastatin Calcium [Lipitor] 10 mg PO BEDTIME #30 tab 06/16/20 Budesonide/Formoterol Fumarate [Symbicort 160-4.5 Mcg Inhaler] 2 puff PO BID #1 MDD 2 puffs 06/16/20 Hydralazine [Apresoline*] 25 mg PO BID #60 tab 06/16/20 New Medications: Hydralazine [Apresoline*] 25 mg PO BID #60 tab Apixaban [Eliquis] 5 mg PO BID #60 tablet Atorvastatin Calcium [Lipitor] 10 mg PO BEDTIME #30 tab Budesonide/Formoterol Fumarate [Symbicort 160-4.5 Mcg Inhaler] 2 puff PO BID #1 MDD 2 puffs Physician Discharge Instructions: Patient presented with chest pain and shortness of breath. Patient with history of atrial fibrillation, hypertension, hyperlipidemia. Patient also with history of cardiac ablation. She had been without medication as she recently moved back to the area. Blood pressures were elevated. Patient with atrial fibrillation upon admission. Patient was given IV metoprolol and hydralazine with improvement. Patient now in sinus rhythm. Patient seen and evaluated by cardiology. Patient without chest pain or shortness of breath. At discharge cardiology recommends to continue Eliquis 5 mg 1 pill twice daily for chronic anticoagulation therapy. Education provided. Education on Eliquis and atrial fibrillation provided. Recommend follow-up with cardiology in 1 week to follow- up hospitalization and continue her care. Patient had elevated blood pressure upon admission. Patient was given IV hydralazine and metoprolol. Patient not able to tolerate metoprolol due to low heart rate. Patient was given hydralazine instead. At discharge patient will continue with hydralazine 25 mg 1 pill twice daily for hypertension. Hold medication if blood pressure systolic less than 110. Recommend blood pressure less than 130/80. Further adjustment in medication can be done by PCP or cardiology. Recommend follow-up with cardiology within 1 week to follow-up his hospitalization and continue her care. Patient with hyperlipidemia. LDL elevated at 130. At discharge patient will continue with Lipitor 10 mg daily. Recommend to recheck fasting lipid panel in 4 to 6 weeks to monitor her progress. Further adjustment can be done by her PCP or cardiology. Patient with COPD. At discharge patient will continue with Symbicort 2 puffs twice daily. Recommend follow-up with pulmonology as an outpatient to further monitor and address. Advance care planning addressed in detail. Patient is full code. Patient will go home at discharge. Diet: AHA Activity: Ad angle Followup: Darryl Nieto MD [Primary Care Provider] - Time spent managing pt's care (in minutes): 55
[2020-06-16 12:05] VITALS: BP 138/64; TEMP 97.9
[2020-06-16] MEDS ORDERED: LATANOPROST 0.005% 2.5ML OPTH OPTH SCH (21:00)
[2020-06-16] MEDS ORDERED: SYSTANE BALANCE OPTH SCH (21:00)
[2020-06-16] MEDS ORDERED: ATORVASTATIN 10 MG TAB PO SCH (21:00)
--- NOTE | 2020-06-17 08:24 | ECHO ---
HEIGHT: 5 ft 0 in WEIGHT: 128 lb 3.2 oz DATE OF STUDY: 06/16/[address]: Luis Hudson DO 2-DIMENSIONAL: YES M.MODE: YES DOPPLER: YES COLOR FLOW: YES TDS: NO PORTABLE: NO DEFINITY: NO BUBBLE STUDY: NO DIAGNOSIS: ATRIAL FIBRILLATION CARDIAC HISTORY: CATHERIZATION: YES SURGERY: YES PROSTHETIC VALVE: NO PACEMAKER: NO MEASUREMENTS (cm) DIASTOLIC (NORMALS) SYSTOLIC (NORMALS) IVSd 1.0 (0.6-1.2) LA Diam 4.1 (1.9-4.0) LVEF 60-65% LVIDd 3.9 (3.5-5.7) LVIDs 2.1 (2.0-3.5) %FS 47% LVPWd 1.1 (0.6-1.2) Ao Diam 2.8 (2.0-3.7) 2 DIMENSIONAL ASSESSMENT: RIGHT ATRIUM: NORMAL LEFT ATRIUM: NORMAL RIGHT VENTRICLE: NORMAL LEFT VENTRICLE: NORMAL TRICUSPID VALVE: MITRAL VALVE: PULMONIC VALVE: AORTIC VALVE: PERICARDIAL EFFUSION: NONE AORTIC ROOT: NORMAL LEFT VENTRICULAR WALL MOTION: NORMAL DOPPLER/COLOR FLOW: SEE BELOW. COMMENTS: NORMAL LEFT VENTRICULAR EJECTION FRACTION 60-65% WITH NORMAL WALL MOTION. MILD TRICUSPID, PULMONARY AND MITRAL REGURGITATION. MODERATE AORTIC INSUFFICENCY. TECHNOLOGIST: Danay ELLSWORTH
[2020-06-17] MEDS ORDERED: levoFLOXacin 500 MG TAB PO SCH (09:00)
--- NOTE | 2020-06-18 08:56 | CON ---
Date of Consultation: 06/16/2020 Reason For Consultation: Chest pain, atrial flutter, and shortness of breath. History Of Present Illness: Ms. Breaux is an 85-year-old woman, who has had history of CVA, has had history atrial fibrillation and ablation many years ago. Has a history of hypertension, dyslipidemia , coronary artery disease, neuropathy, gastroesophageal reflux disease. Has had and depre ssion. She normally sees Emilia. Came into the hospital mostly with atypical chest pain and shortness of breath, palpitation, was found to be in flutter, potassium of 3.3. Troponin was negative. She i s in sinus rhythm now, on IV beta-blockers. She is asymptomatic at this point. Past Medical History: As stated above. Allergies: SHE IS ALLERGIC TO FENTANYL, PENICILLIN, SULFA, AND HYDROCODONE. Medications: At home include inhalers only. She is presently being placed on hydralazine, Lipitor, aspirin, and Eliquis because of hypertension and atrial flutter. Review of Systems: Negative. Social History: Negative. Family History: Negative. Physical Examination: Vital Signs: She was in sinus bradycardia at heart rate of 53. HEENT: Negative. Neck: Supple with no bruit. Chest: Clear. Cardiac: Revealed bradycardia with S4 gallops. No murmurs or rubs. Abdomen: Benign. Extremities: Revealed no clubbing, cyanosis, or edema. Diagnostic Data: As listed earlier. Impression And Plan: 1.Paroxysmal atrial flutter. I think the patient should be on a low-dose Eliquis. 2.History of cerebrovascular accident, coronary artery disease, and dyslipidemia. She should be on Lipitor and hydralazine and aspirin. Her other problems including neuropathy, gastroesophageal reflu x disease, arthritis, and depression are stable. Ms. Breaux has already had an ablation. She has a heart rate of 53 right now without any beta-blockers and I am uncomfortable putting her on Betapace o r amiodarone or metoprolol. I think . Meanwhile, I would like to see her in the office as an outpatient. She has an echocardiogram pending outpatient Lexiscan. MCNALLY/KATTY Voice ID: [id number] Report ID: [id number]
== END 2020-06-16 13:05 | disposition home or self-care (01) ==
LOC: ER 15:54 → ERHOLD 20:51 → INTOOBSV 20:51 → 4TH 22:27
PROVIDERS: ADMIT Family Medicine; ATTEND Family Medicine
DX: I48.91 Unspecified atrial fibrillation (principal); E78.5 Hyperlipidemia, unspecified; E03.9 Hypothyroidism, unspecified; J44.9 Chronic obstructive pulmonary disease, unspecified; N39.0 Urinary tract infection, site not specified; Z20.822 Contact with and (suspected) exposure to COVID-19; I10 Essential (primary) hypertension; I25.10 Atherosclerotic heart disease of native coronary artery without angina pectoris; K21.9 Gastro-esophageal reflux disease without esophagitis; G62.9 Polyneuropathy, unspecified; I48.92 Unspecified atrial flutter; Z86.73 Personal history of transient ischemic attack (TIA), and cerebral infarction without residual deficits; M19.90 Unspecified osteoarthritis, unspecified site; F32.9 Major depressive disorder, single episode, unspecified; I25.2 Old myocardial infarction; G47.33 Obstructive sleep apnea (adult) (pediatric); R94.31 Abnormal electrocardiogram [ECG] [EKG]
CPT/HCPCS: 93005 ×4; 93306; 87088; 85025 ×2; 87086; 80048; 36415; 83735 ×2; 84100; 85610; 80061; 82947 ×3; 80076; 84443; 83036; 84484 ×3; 84439; 80053; 83880; 0240U; 71045; 94760; 96372; 99285; J0360; J1650; J2270 ×2; J7040 ×2; J7030; J2405; 81003; 81015; 87077; 87186; G0378

== ENCOUNTER 2021-01-25 13:54 | Emergency (ER) | payer OTHER ==
[2021-01-25 14:41] LABS: Absolute Lymphocytes (CBC) 1.6 K/uL (0.7-4.9); Basophils % 2.9 % (0-1.3); Hematocrit 41.8 % (36.0-45.0); Lymphocytes % 21.4 % (15.3-44.8); MPV 8.4 fL (7.6-11.3); Protime INR 0.94; RBC Red Blood Cell Count 4.53 M/uL (3.86-4.86)
[2021-01-25 14:59] LABS: ALT/SGPT 20 U/L (12-78); AST/SGOT 19 U/L (15-37); Alkaline Phosphatase 117 U/L (45-117); BUN Blood Urea Nitrogen 21 mg/dL (7-18); Bicarbonate 28 mmol/L (21-32); Bilirubin Direct 0.2 mg/dL (0-0.2); Bilirubin Total 0.8 mg/dL (0.2-1.0); Glucose Level 102 mg/dL (74-106); Potassium 3.8 mmol/L (3.5-5.1); Sodium Level 143 mmol/L (136-145)
[2021-01-25 15:00] LABS: Albumin 3.9 g/dL (3.4-5.0); Magnesium 2.3 mg/dL (1.8-2.4); NT PRO-BNP 157 pg/mL (<450); Protein, Total 7.7 g/dL (6.4-8.2); Troponin (Emerg Dept Use Only) < 0.02 ng/mL (0.0-0.045)
--- NOTE | 2021-01-25 15:55 | RAD REPORT ---
EXAM DESCRIPTION: CT - Angio Aorta For Dissection - 01/25/2021 3:33 pm CLINICAL HISTORY: . Chest and abd pain COMPARISON: 2019 TECHNIQUE: Computed tomography angiography of the chest, abdomen pelvis were obtained. 100 cc Isovue 370 was administered intravenously. Coronal and sagittal reconstruction were performed. MIP 3D reconstruction was performed All CT scans are performed using dose optimization technique as appropriate and may include automated exposure control or mA/KV adjustment according to patient size. FINDINGS: Some images are degraded by motion artifact An aortic dissection is not seen. An aortic aneurysm is not displayed. The celiac, SMA and AUBRIE are patent . Mild tree-in-bud opacities right lung. A pericardial effusion is not seen. A pleural effusion is not noted. The liver,spleen, pancreas, adrenals and kidneys demonstrate no acute abnormality. Cortical thinning involves the kidneys. There no evidence diverticulitis. Spondylosis involves lumbar spine resulting in spinal stenosis. No rmal appendix IMPRESSION: Negative for an aortic dissection. Mild tree-in-bud opacities right lung may indicate an atypical pneumonia
--- NOTE | 2021-01-25 15:56 | RAD REPORT ---
EXAM DESCRIPTION: Janeth Single View01/25/2021 2:27 pm CLINICAL HISTORY: Chest pain COMPARISON: 2018 FINDINGS: Mild reticulonodular opacities right lung may indicate a mild atypical pneumonia Left lung appears clear. Heart is normal size
[2021-01-25] MEDS ORDERED: cloNIDine HCL 0.1 MG TAB ONE (16:25)
[2021-01-25] MEDS ORDERED: KETOROLAC 30 MG/ML INJ ONE (16:48)
[2021-01-25] MEDS ORDERED: METHYLPREDNISOLONE 125 MG INJ ONE (16:48)
[2021-01-25] MEDS ORDERED: Levofloxacin500mg IV 500 MG/100 ML BAG IV ONE (16:49)
[2021-01-25 17:06] LABS: SARS-COV-2 RT PCR NEGATIVE (NEGATIVE)
--- NOTE | 2021-01-25 17:12 | ER ---
Nurse's Notes [facility] Name: Madiha Breaux Age: 86 yrs Sex: Female : 1935 Arrival Date: 01/25/2021 Time: 13:57 Bed 2 Private MD: Diagnosis: Pneumonia, unspecified organism;Pleurisy Presentation: 01/25 14:21 Chief complaint: EMS states: Back and shoulder pain that began about an hour ago; vg1 states pain with deep inhalation and movement. Pt family stated pt c/o difficulty breathing and shortness of breath. Coronavirus screen: Vaccine status: Patient reports being unvaccinated. Client denies travel out of the [place] in the last 14 days. Ebola Screen: Patient negative for fever greater than or equal to 101.5 degrees Fahrenheit, and additional compatible Ebola Virus Disease symptoms. Initial Sepsis Screen: Does the patient meet any 2 criteria? No. Patient's initial sepsis screen is negative. Does the patient have a suspected source of infection? No. Patient's initial sepsis screen is negative. Risk Assessment: Do you want to hurt yourself or someone else? Patient reports no desire to harm self or others. Onset of symptoms was January 25, 2021. 14:21 Method Of Arrival: EMS: [facility] vg1 14:21 Acuity: DAMIR 3 vg1 Triage Assessment: 14:22 General: Appears in no apparent distress. comfortable, Behavior is calm, cooperative. vg1 Pain: Complains of pain in left scapular area, right scapular area and thoracic area Pain currently is 7 out of 10 on a pain scale. Pain began 1 hour ago. EENT: No signs and/or symptoms were reported regarding the EENT system. Neuro: Level of Consciousness is awake, alert, obeys commands, Oriented to person, place, time, situation. Cardiovascular: Patient's skin is warm and dry. Respiratory: Reports shortness of breath pain with movement pain with respiration Airway is patent Respiratory effort is even, unlabored. GI: No signs and/or symptoms were reported involving the gastrointestinal system. : No signs and/or symptoms were reported regarding the genitourinary system. Derm: Skin Skin is pink, warm \\T\\ dry. Musculoskeletal: Circulation, motion, and sensation intact. Historical: - Allergies: 14:22 Codeine; vg1 14:22 Demerol; vg1 14:22 lamital; vg1 14:22 PENICILLINS; vg1 14:22 Sulfa (Sulfonamide Antibiotics); vg1 - Home Meds: 14:22 Hydralazine Oral [Active]; atorvastatin oral [Active]; potassium chloride Oral vg1 [Active]; budesonide oral [Active]; - PMHx: 14:22 CVA; Hyperlipidemia; Hypertension; Myocardial infarction; Parkinsons; Congestive heart vg1 failure; PTSD; Hyperlipidemia; - Immunization history:: Client reports having NOT received the Covid vaccine. - Social history:: Smoking status: Patient denies any tobacco usage or history of. - Family history:: not pertinent. - Hospitalizations: : No recent hospitalization is reported. Screenin:29 Abuse screen: Denies threats or abuse. Nutritional screening: No deficits noted. vg1 Tuberculosis screening: No symptoms or risk factors identified. Fall Risk No fall in past 12 months (0 pts). No secondary diagnosis (0 pts). IV access (20 points). Ambulatory Aid- None/Bed Rest/Nurse Assist (0 pts). Gait- Normal/Bed Rest/Wheelchair (0 pts) Mental Status- Oriented to own ability (0 pts). Total Haro Fall Scale indicates No Risk (0-24 pts). Assessment: 14:30 General: see triage. [facility] 15:30 Reassessment: Patient appears in no apparent distress at this time. No changes from [facility] previously documented assessment. Patient and/or family updated on plan of care and expected duration. Pain level reassessed. Patient is alert, oriented x 3, equal unlabored respirations, skin warm/dry/pink. 16:31 Reassessment: Patient appears in no apparent distress at this time. No changes from [facility] previously documented assessment. Patient and/or family updated on plan of care and expected duration. Pain level reassessed. Patient is alert, oriented x 3, equal unlabored respirations, skin warm/dry/pink. Pt reports "They've been trying to get my blood pressure under control from years and can't seem to do it.". 17:16 Reassessment: Pt will be discharged once medication is done infusing. 7 Vital Signs: 14:21 BP 184 / 82; Pulse 85; Resp 20; Temp 98.5; Pulse Ox 96% ; Weight 56.7 kg; Height 5 ft. vg1 0 in. (152.40 cm); Pain 7/10; 15:00 BP 178 / 69; Pulse 69; Resp 15; Pulse Ox 94% ; jl7 15:45 BP 196 / 82; Pulse 81; Resp 17; Pulse Ox 97% ; jl7 16:21 BP 206 / 85; Pulse 79; Resp 15; Pulse Ox 94% ; jl7 17:13 BP 179 / 75; Pulse 72; Resp 16; Pulse Ox 95% ; jl7 18:00 BP 136 / 69; Pulse 62; Resp 15; Pulse Ox 94% ; jl7 14:21 Body Mass Index 24.41 (56.70 kg, 152.40 cm) vg1 ED Course: 13:57 Patient arrived in ED. vg1 14:00 Gatito Stanley MD is Attending Physician. rn 14:00 lift builder whole on. Pulse ox on. NIBP on. jl7 14:21 Celena Britton RN is Primary Nurse. vg1 14:22 Triage completed. vg1 14:22 Arm band placed on. vg1 14:27 XRAY Chest (1 view) In Process Unspecified. EDMS 14:28 Maintain EMS IV. Dressing intact. Good blood return noted. Site clean \\T\\ dry. Gauge \\T\\ vg 1 site: 18 L FA. 14:29 Patient has correct armband on for positive identification. Placed in gown. Bed in low vg1 position. Call light in reach. Side rails up X2. Adult w/ patient. 14:29 No provider procedures requiring assistance completed. vg1 14:30 Initial lab(s) drawn, by ED staff, sent to lab. jl7 15:32 CT Aorta for Dissection In Process Unspecified. EDMS 15:45 EKG done, by ED staff, reviewed by Gatito Stanley MD. jl7 18:18 IV discontinued, intact, bleeding controlled, No redness/swelling at site. Pressure jl7 dressing applied. Administered Medications: 16:28 Drug: cloNIDine 0.1 mg Route: PO; jl7 17:13 Follow up: Response: No adverse reaction; Blood pressure is lowered jl7 17:00 Drug: Ketorolac 15 mg Route: IVP; Site: left antecubital; jl7 17:30 Follow up: Response: No adverse reaction; Pain is decreased jl7 17:03 Drug: SOLU-Medrol (methylPrednisoLONE) 125 mg Route: IVP; Site: left antecubital; jl7 17:30 Follow up: Response: No adverse reaction jl7 17:05 Drug: LevaQUIN (levofloxacin) 500 mg Volume: 100 ml; Route: IVPB; Infused Over: 60 jl7 mins; Site: left antecubital; 18:05 Follow up: Response: No adverse reaction; IV Status: Completed infusion jl7 Outcome: 17:12 Discharge ordered by . rn 18:18 Discharged to home ambulatory, with family. jl7 18:18 Condition: stable 18:18 Discharge instructions given to patient, family, Instructed on discharge instructions, follow up and referral plans. medication usage, Demonstrated understanding of instructions, follow-up care, medications, Prescriptions given X 1. 18:19 Patient left the ED. jl Signatures: Dispatcher [employer] Gatito Carroll MD MD rn Leal, Jahala, RN RN jl7 Celena Britton RN RN vg1
--- NOTE | 2021-01-25 17:13 | EDPHYS ---
Physician Documentation [facility] Name: Madiha Breaux Age: 86 yrs Sex: Female : 1935 Arrival Date: 01/25/2021 Time: 13:57 Bed 2 Private MD: ED Physician Gatito Stanley HPI: 01/25 14:24 This 86 yrs old Female presents to ER via EMS with complaints of Back pain/mid rn scapular pain. 14:24 The patient presents with pain that is acute. The symptoms are located in the thoracic rn area. Onset: The symptoms/episode began/occurred just prior to arrival. The pain does not radiate. 14:25 Associated signs and symptoms: Pertinent negatives: abdominal pain, fever, headache, rn hematuria, incontinence, tingling, urinary retention, vomiting, weakness. Modifying factors: The patient symptoms are alleviated by nothing, the patient symptoms are aggravated by any movement. Severity of symptoms: At their worst the symptoms were moderate, in the emergency department the symptoms have improved. The patient has not experienced similar symptoms in the past. The patient has not recently seen a physician. 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 States radiates down the spine. Denies any chest pain or abdominal pain. Does report pain with deep breath and with movement. Has had back problems in the past but this is more severe. Has not felt ill recently. Denies new cough or hemoptysis. Patient does have COPD. Historical: - Allergies: 14:22 Codeine; vg1 14:22 Demerol; vg1 14:22 lamital; vg1 14:22 PENICILLINS; vg1 14:22 Sulfa (Sulfonamide Antibiotics); vg1 - Home Meds: 14:22 Hydralazine Oral [Active]; atorvastatin oral [Active]; potassium chloride Oral vg1 [Active]; budesonide oral [Active]; - PMHx: 14:22 CVA; Hyperlipidemia; Hypertension; Myocardial infarction; Parkinsons; Congestive heart vg1 failure; PTSD; Hyperlipidemia; - Immunization history:: Client reports having NOT received the Covid vaccine. - Social history:: Smoking status: Patient denies any tobacco usage or history of. - Family history:: not pertinent. - Hospitalizations: : No recent hospitalization is reported. ROS: 14:25 Constitutional: Negative for fever, chills, and weight loss, Eyes: Negative for injury, rn pain, redness, and discharge, Neck: Negative for injury, pain, and swelling, Cardiovascular: Negative for chest pain, palpitations, and edema, Respiratory: Negative for wheezing Abdomen/GI: Negative for abdominal pain, nausea, vomiting, diarrhea, and constipation, Back: Negative for injury : Negative for injury, bleeding, discharge, and swelling, MS/Extremity: Negative for injury and deformity, Skin: Negative for injury, rash, and discoloration, Neuro: Negative for headache, weakness, numbness, tingling, and seizure. Exam: 14:25 Constitutional: This is a well developed, well nourished patient who is awake, alert, rn and in no acute distress. Head/Face: Normocephalic, atraumatic. Eyes: Periorbital areas with no swelling, redness, or edema. Cardiovascular: Regular rate and rhythm. No pulse deficits. Respiratory: No increased work of breathing, no retractions or nasal flaring. Abdomen/GI: Soft, non-tender Back: No spinal tenderness. No costovertebral tenderness. Skin: Warm, dry MS/ Extremity: Pulses equal, no cyanosis. Neurovascular intact. Full, normal range of motion. Equal circumference. Neuro: Awake and alert, GCS 15, oriented to person, place, time, and situation. Cranial nerves II-XII grossly intact. Motor strength 5/5 in all extremities. Sensory grossly intact. Cerebellar exam normal. Vital Signs: 14:21 BP 184 / 82; Pulse 85; Resp 20; Temp 98.5; Pulse Ox 96% ; Weight 56.7 kg; Height 5 ft. vg1 0 in. (152.40 cm); Pain 7/10; 15:00 BP 178 / 69; Pulse 69; Resp 15; Pulse Ox 94% ; jl7 15:45 BP 196 / 82; Pulse 81; Resp 17; Pulse Ox 97% ; jl7 16:21 BP 206 / 85; Pulse 79; Resp 15; Pulse Ox 94% ; jl7 17:13 BP 179 / 75; Pulse 72; Resp 16; Pulse Ox 95% ; jl7 18:00 BP 136 / 69; Pulse 62; Resp 15; Pulse Ox 94% ; jl7 14:21 Body Mass Index 24.41 (56.70 kg, 152.40 cm) vg1 MDM: 14:00 Patient medically screened. rn 17:08 Differential diagnosis: arthritis, Osteoarthritis. rn 17:08 Data reviewed: vital signs, nurses notes, lab test result(s), EKG, radiologic studies, rn CT scan, plain films, and as a result, I will discharge patient. Data interpreted: Pulse oximetry: on room air is 96 %. Interpretation: acceptable. Counseling: I had a detailed discussion with the patient and/or guardian regarding: the historical points, exam findings, and any diagnostic results supporting the discharge/admit diagnosis, lab results, radiology results, the need for outpatient follow up, to return to the emergency department if symptoms worsen or persist or if there are any questions or concerns that arise at home. Response to treatment: the patient's symptoms have mildly improved after treatment, and as a result, I will discharge patient. Special discussion: I discussed with the patient/guardian in detail that at this point there is no indication for admission to the hospital. It is understood, however, that if the symptoms persist or worsen the patient needs to return immediately for re-evaluation. ED course: CT chest abdomen pelvis negative for aortic dissection. Chest x-ray and CT show right atypical pneumonia. Patient with COPD and recurrent pneumonia, but no increase in oxygen requirement. Stable vital signs. Current blood pressure 179/75. Will DC home with steroids and antibiotics with return precautions.. 01/25 14:08 Order name: Basic Metabolic Panel; Complete Time: 15:09 rn 01/25 14:08 Order name: CBC with Diff; Complete Time: 14:59 rn 01/25 14:08 Order name: LFT's; Complete Time: 15:09 rn 01/25 14:08 Order name: Magnesium; Complete Time: 15:09 rn 01/25 14:08 Order name: NT PRO-BNP; Complete Time: 15:09 rn 01/25 14:08 Order name: PT-INR; Complete Time: 14:59 rn 01/25 14:08 Order name: Troponin (emerg Dept Use Only); Complete Time: 15:09 rn 01/25 14:08 Order name: XRAY Chest (1 view); Complete Time: 15:59 rn 01/25 14:08 Order name: CT Aorta for Dissection; Complete Time: 15:59 rn 01/25 16:24 Order name: COVID-19/FLU A+B; Complete Time: 17:07 EDMS 01/25 14:08 Order name: EKG; Complete Time: 14:09 rn 01/25 14:08 Order name: Cardiac monitoring; Complete Time: 14:55 rn 01/25 14:08 Order name: EKG - Nurse/Tech; Complete Time: 15:04 rn 01/25 14:08 Order name: IV Saline Lock; Complete Time: 14:30 rn 01/25 14:08 Order name: Labs collected and sent; Complete Time: 14:30 rn 01/25 14:08 Order name: O2 Per Protocol; Complete Time: 14:30 rn 01/25 14:08 Order name: O2 Sat Monitoring; Complete Time: 14:30 rn Administered Medications: 16:28 Drug: cloNIDine 0.1 mg Route: PO; jl7 17:13 Follow up: Response: No adverse reaction; Blood pressure is lowered jl7 17:00 Drug: Ketorolac 15 mg Route: IVP; Site: left antecubital; jl7 17:30 Follow up: Response: No adverse reaction; Pain is decreased jl7 17:03 Drug: SOLU-Medrol (methylPrednisoLONE) 125 mg Route: IVP; Site: left antecubital; jl7 17:30 Follow up: Response: No adverse reaction jl7 17:05 Drug: LevaQUIN (levofloxacin) 500 mg Volume: 100 ml; Route: IVPB; Infused Over: 60 jl7 mins; Site: left antecubital; 18:05 Follow up: Response: No adverse reaction; IV Status: Completed infusion jl7 Disposition Summary: 01/25/21 17:12 Discharge Ordered Location: Home rn Problem: new rn Symptoms: have improved rn Condition: Stable rn Diagnosis - Pneumonia, unspecified organism rn - Pleurisy rn Followup: rn - With: Private Physician - When: 2 - 3 days - Reason: Recheck today's complaints, Re-evaluation by your physician Discharge Instructions: - Discharge Summary Sheet rn - Pleurisy rn - Community-Acquired Pneumonia, Adult rn Forms: - Medication Reconciliation Form rn - Thank You Letter rn - Antibiotic designer and patternmaker - Prescription Opioid Use rn Prescriptions: - Prednisone 20 mg Oral Tablet - take 3 tablets by ORAL route once daily for 5 days; 15 tablet; Refills: 0, rn Product Selection Permitted - levofloxacin 500 mg Oral Tablet - take 1 tablet by ORAL route once daily for 7 days; 7 tablet; Refills: 0, rn Product Selection Permitted Signatures: Dispatcher [employer] EDGatito Montalvo MD MD rn Leal, Jahala RN RN jl7 Celena Britton, RN RN vg1 Corrections: (The following items were deleted from the chart) 16:24 16:01 SARS-COV-2 RT PCR+MOL.[email or web address].BRZ ordered. EDMS EDMS 16:31 16:01 Influenza Screen (A \T\ B)+BA.LAB.BRZ ordered. EDMS EDMS
[2021-01-25 18:24] VITALS: TEMP 98.5
[2021-01-25 18:31] VITALS: BP 136/69; O2SAT 94
--- NOTE | 2021-01-26 08:10 | EKG ---
Test Date: 2021-01-25 Test Time: 15:02:51 Tool Turret Lathe Set Up Operator: ARTURO MEASUREMENT RESULTS: Intervals: Rate: 69 AK: 324 QRSD: 76 QT: 418 QTc: 447 Elizabeth: P: 60 AK: 324 QRS: -60 T: 36 INTERPRETIVE STATEMENTS: Sinus rhythm with 1st degree AV block with premature atrial complexes Left anterior fascicular block Minimal voltage criteria for LVH, may be normal variant Septal infarct, age undetermined Cannot rule out Inferior infarct (masked by fascicular block?), age undetermined Abnormal ECG Compared to ECG 06/16/2020 12:06:23 Atrial premature complex(es) now present Left anterior fascicular block now present Left ventricular hypertrophy now present Sinus bradycardia no longer present Left-axis deviation no longer present Myocardial infarct finding still present Electronically Signed On 01-26-21 08:08:54 EMERGENCY VEHICLE TECHNICIAN by Bryon Dsouza
== END 2021-01-25 18:19 | disposition home or self-care (01) ==
LOC: ER 13:54
DX: J18.9 Pneumonia, unspecified organism (principal); R09.1 Pleurisy; I10 Essential (primary) hypertension; G20 Parkinson's disease; Z88.0 Allergy status to penicillin; Z88.2 Allergy status to sulfonamides; Z88.5 Allergy status to narcotic agent; Z88.8 Allergy status to other drugs, medicaments and biological substances; Z20.822 Contact with and (suspected) exposure to COVID-19
CPT/HCPCS: 96365; 93005; 85025; 80048; 36415; 83735; 85610; 82565; 80076; 84484; 83880; 0240U; 71275; 74175; 71045; 96375; 99285; Q9967; J2930

== ENCOUNTER 2021-08-19 11:21 | Inpatient (IN) | payer OTHER ==
--- NOTE | 2021-08-19 12:33 | RAD REPORT ---
EXAM DESCRIPTION: CT - Head Brain Wo Cont - 08/19/2021 12:22 pm CLINICAL HISTORY: Seizure COMPARISON: 2019 TECHNIQUE: Computed axial tomography of the head was obtained. IV contrast was not requested. All CT scans are performed using dose optimization technique as appropriate and may include automated exposure control or mA/KV adjustment according to patient size. FINDINGS: An intracranial bleed is not seen . The ventricles are normal in caliber. No extra-axial fluid collection is noted. No significant hypodensity within the brain. Fluid within the sinuses/ mastoids is not seen. IMPRESSION: No acute intracranial abnormality is seen. If patient's symptoms persist MRI of the bra in would be recommended.
[2021-08-19 12:50] LABS: Absolute Lymphocytes (CBC) 0.9 K/uL (0.7-4.9); Hematocrit 39.8 % (36.0-45.0); Lymphocytes % 13.2 % (15.3-44.8); MPV 8.3 fL (7.6-11.3); RBC Red Blood Cell Count 4.32 M/uL (3.86-4.86)
[2021-08-19 12:57] LABS: Protime INR 0.86
--- NOTE | 2021-08-19 13:00 | RAD REPORT ---
EXAM DESCRIPTION: RAD - Chest Single View - 08/19/2021 12:33 pm CLINICAL HISTORY: CHEST PAIN COMPARISON: Portable 01/25/2021 TECHNIQUE: AP portable chest image was obtained 08/19/2021 12:33 pm . FINDINGS: Lung volumes are low accentuating the baseline interstitial fibrotic pattern. The accentua shazia bibasilar pattern is probably atelectasis. A mild edema or infiltrate in 1 or both lung bases cou ld be masked. No dense consolidation. Heart and vasculature are normal. No measurable pleural effusion and no pneumothorax. No acute bony abnormality seen. No acute aortic findings suspected. IMPRESSION: Accentuated fibrotic lung pattern due to low lung volumes. Bibasilar increased interstitial pattern is probably fibrosis and atelectasis combination. Mild inter stitial edema or infiltrate could potentially be masked.
[2021-08-19 13:08] LABS: Albumin 3.6 g/dL (3.4-5.0); Bilirubin Direct 0.3 mg/dL (0-0.2); Bilirubin Total 1.1 mg/dL (0.2-1.0); Potassium 3.5 mmol/L (3.5-5.1); Protein, Total 6.7 g/dL (6.4-8.2); Troponin High Sensitivity 49.1 pg/mL (<58.9)
--- NOTE | 2021-08-19 14:51 | EDPHYS ---
Physician Documentation [facility] Name: Madiha Breaux Age: 86 yrs Sex: Female : 1935 Arrival Date: 08/19/2021 Time: 11:28 Bed 17 Private MD: Hao Mahmood HPI: 08/19 12:16 This 86 yrs old Female presents to ER via EMS with complaints of Probable Seizure. pm1 12:16 The patient presents after having a possible seizure episode, Family reports that she pm1 was having pseudo seizures. Patient complaining of chest pain with left arm pain. Character of seizure(s): generalized shaking and chattering of her teeth without any postictal phase. Seizure onset: today. Context: the seizure(s) was witnessed, by family, occurred at home, Contributing factors: unknown, Family reports stress. Associated injury: The patient did not suffer any apparent associated injury. Current symptoms: Currently, the patient is not experiencing any symptoms. The patient has experienced similar episodes in the past, multiple times. The patient has not recently seen a physician, [facility]. Historical: - Allergies: 11:34 Codeine; bp 11:34 Demerol; bp 11:34 lamital; bp 11:34 PENICILLINS; bp 11:34 Sulfa (Sulfonamide Antibiotics); bp - Home Meds: 11:34 amlodipine 5 mg tab 1 tab once daily [Active]; atorvastatin Oral [Active]; budesonide bp Oral [Active]; clonazepam 0.5 mg Oral tab [Active]; duloxetine 60 mg Oral cpDR 1 cap once daily [Active]; Hydralazine Oral [Active]; hydroxyzine HCl 25 mg Oral tab [Active]; lisinopril 20 mg Oral tab 1 tab once daily [Active]; omeprazole 20 mg Oral TbEC [Active]; Potassium Chloride Oral [Active]; pramipexole 1 mg Oral tab 3 times per day [Active]; primidone 50 mg Oral tab [Active]; ropinirole 1 mg Oral tab 3 times per day [Active]; tamsulosin 0.4 mg Oral cp24 1 cap once daily [Active]; - PMHx: 11:34 Congestive heart failure; Hyperlipidemia; CVA; Hyperlipidemia; Hypertension; Myocardial bp infarction; Parkinsons; PTSD; - Immunization history:: Adult Immunizations up to date. - Social history:: Smoking status: unknown. ROS: 12:16 Constitutional: Negative for fever, chills, and weight loss. pm1 12:16 Respiratory: Negative for shortness of breath, cough, wheezing, and pleuritic chest pain, Abdomen/GI: Negative for abdominal pain, nausea, vomiting, diarrhea, and constipation, Back: Negative for injury and pain, MS/Extremity: Negative for injury and deformity, Skin: Negative for injury, rash, and discoloration. 12:16 Cardiovascular: Positive for chest pain, of the mid-sternal area. 12:16 Neuro: Positive for seizure activity. 12:16 All other systems are negative. Exam: 12:16 Constitutional: This is a well developed, well nourished patient who is awake, alert, pm1 and in no acute distress. Head/Face: Normocephalic, atraumatic. 12:16 Back: No spinal tenderness. No costovertebral tenderness. Full range of motion. Skin: Warm, dry with normal turgor. Normal color with no rashes, no lesions, and no evidence of cellulitis. MS/ Extremity: Pulses equal, no cyanosis. Neurovascular intact. Full, normal range of motion. 12:16 Eyes: Exam is negative for acute changes, Periorbital structures: appear normal, Pupils: no acute changes, Extraocular movements: no acute changes, Conjunctiva: no acute changes, no injection. 12:16 Cardiovascular: Exam negative for acute changes, Rate: tachycardic, Rhythm: regular, Pulses: no pulse deficits are appreciated, Heart sounds: normal, normal S1and S2. 12:16 Respiratory: Exam negative for acute changes, respiratory distress, shortness of breath, Breath sounds: are clear throughout. 12:16 Abdomen/GI: Exam negative for acute changes, Inspection: abdomen appears normal, Palpation: abdomen is soft and non-tender, in all quadrants. 12:16 Neuro: Exam negative for acute changes, Orientation: is normal, Mentation: is normal, Motor: is normal, moves all fours. Vital Signs: 11:32 BP 119 / 63; Pulse 128; Resp 16; Temp 97.5; Pulse Ox 95% on 2 lpm NC; bp 12:30 BP 121 / 58; Pulse 110; Resp 13; Pulse Ox 94% ; Weight 56.7 kg; bp 14:00 BP 114 / 61; Pulse 121; Resp 13; Pulse Ox 96% ; bp 15:00 BP 112 / 59; Pulse 117; Resp 15; Pulse Ox 94% ; bp 16:00 BP 121 / 61; Pulse 74; Resp 12; Pulse Ox 93% ; bp 17:00 BP 150 / 55; Pulse 71; Resp 13; Pulse Ox 93% ; bp 18:00 BP 132 / 43; Pulse 69; Resp 20; Pulse Ox 96% ; bp 20:33 BP 124 / 54; Pulse 70; Resp 15; Pulse Ox 93% on R/A; kd3 Dinesh Coma Score: 11:34 Eye Response: spontaneous(4). Verbal Response: oriented(5). Motor Response: obeys bp commands(6). Total: 15. MDM: 11:41 Patient medically screened. pm1 14:48 Data reviewed: vital signs. Data interpreted: Pulse oximetry: on room air is 96 %. pm1 Interpretation: normal. Counseling: I had a detailed discussion with the patient and/or guardian regarding: the historical points, exam findings, and any diagnostic results supporting the discharge/admit diagnosis, lab results, radiology results, the need for outpatient follow up, to return to the emergency department if symptoms worsen or persist or if there are any questions or concerns that arise at home. 16:04 ED course: Patient's chest pain resolved with digoxin 0.5 IV and metoprolol 5 mg IV x pm1 1. BP 121/61 BPM 72. 08/19 12:07 Order name: Basic Metabolic Panel; Complete Time: 13:20 pm08/19 12:07 Order name: CBC with Diff; Complete Time: 13:20 pm08/19 12:07 Order name: LFT's; Complete Time: 13:20 pm08/19 12:07 Order name: Magnesium; Complete Time: 13:20 pm08/19 12:07 Order name: NT PRO-BNP; Complete Time: 13:20 pm08/19 12:07 Order name: PT-INR; Complete Time: 13:20 pm08/19 12:07 Order name: Troponin HS; Complete Time: 13:20 pm08/19 12:07 Order name: XRAY Chest (1 view); Complete Time: 13:20 pm08/19 12:07 Order name: CT Head Brain wo Cont pm08/19 12:11 Order name: Head Brain Wo Cont; Complete Time: 13:20 EDMS 08/19 15:20 Order name: SARS-COV-2 RT PCR (Document "Date of Onset" if Symptomatic); Complete Time: bp 19:00 08/19 12:07 Order name: EKG; Complete Time: 12:08 pm1 08/19 12:07 Order name: Cardiac monitoring; Complete Time: 12:22 pm08/19 12:07 Order name: EKG - Nurse/Tech; Complete Time: 12:22 pm08/19 12:07 Order name: IV Saline Lock; Complete Time: 12:22 pm08/19 12:07 Order name: Labs collected and sent; Complete Time: 12:51 pm08/19 12:07 Order name: O2 Per Protocol; Complete Time: 12:22 pm08/19 12:07 Order name: O2 Sat Monitoring; Complete Time: 12:22 pm08/19 16:03 Order name: EKG; Complete Time: 16:05 pm08/19 16:03 Order name: EKG - Nurse/Tech; Complete Time: 18:23 pm1 EC:26 Rate is 121 beats/min. Rhythm is regular, A flutter with No ectopy. QRS [place] is Normal. pm1 [place] interval is normal. QRS interval is normal. QT interval is normal. No Q waves. T waves are Normal. No ST changes noted. Clinical impression: Atrial Flutter. Administered Medications: 15:20 Drug: NS 0.9% 500 ml Route: IV; Rate: bolus; Site: left forearm; bp 16:38 Follow up: IV Status: Completed infusion; IV Intake: 500ml bp 15:20 Drug: morphine 4 mg Route: IVP; Infused Over: 4 mins; Site: left antecubital; bp 16:38 Follow up: Response: Pain is decreased bp 15:20 Drug: Zofran (Ondansetron) 4 mg Route: IVP; Site: left antecubital; bp 16:39 Follow up: Response: No adverse reaction bp 15:20 Drug: NS 0.9% 500 ml Route: IV; Rate: bolus; Site: left antecubital; bp 16:39 Follow up: IV Status: Completed infusion; IV Intake: 500ml bp 15:30 Drug: Digoxin 0.5 mg Route: IVP; Site: left forearm; bp 16:39 Follow up: Response: Pain is decreased bp 15:30 Drug: Metoprolol 5 mg Route: IVP; Site: left forearm; bp 16:38 Follow up: Response: Cardiac rhythm changed bp 16:45 Drug: Lovenox (enoxaparin) 1 mg/kg Route: Sub-Q; Site: right lower abdomen; bp 18:32 Follow up: Response: No adverse reaction bp 20:35 Follow up: Response: No adverse reaction kd3 17:15 Drug: Zofran (Ondansetron) 4 mg Route: IVP; Site: left forearm; bp 18:32 Follow up: Response: No change in condition bp 20:34 Follow up: Response: No adverse reaction kd3 18:29 CANCELLED (Physician Discretion): Reglan (metoCLOPramide) 10 mg IVP once; over 1 to 2 pm1 minutes 18:32 Drug: Phenergan (promethazine) 6.25 mg Route: IVP; Site: left forearm; bp 20:34 Follow up: Response: No adverse reaction kd3 Disposition Summary: 08/19/21 14:51 Hospitalization Ordered Hospitalization Status: Observation pm1 Location: Telemetry/MedSurg (observation) pm1 Condition: Stable pm1 Problem: new pm1 Symptoms: have improved pm1 Bed/Room Type: Standard pm1 Provider: Michael Burkett(08/19/21 16:58) pm1 Room Assignment: 403(08/19/21 20:23) eb1 Diagnosis - Chest pain, unspecified pm1 Forms: - Medication Reconciliation Form pm1 - SBAR form pm1 Addendum: 08/23/2021 14:07 Co-signature as Attending Physician, Hao Joyce MD I agree with the assessment and c saldana plan of care. Signatures: Dispatcher [employer] EDNE Hao Joyce MD MD cha Marinas, Patrick, LAURA WELL LOGGING CAPTAIN MUD ANALYSIS pm1 Seth Morse RN RN Leslie Tobin RN RN eb1 Marni Waldrop RN kd3 Corrections: (The following items were deleted from the chart) 08/19 16:56 14:51 Michael Burkett pm1 pm1 16:58 16:56 Siobhan Barillas pm1 pm1 18:29 18:26 Reglan (metoCLOPramide) 10 mg IVP once; over 1 to 2 minutes ordered. pm1 pm1 20:23 14:51 pm1 eb1
--- NOTE | 2021-08-19 14:51 | ER ---
Nurse's Notes [facility] Name: Madiha Breaux Age: 86 yrs Sex: Female : 1935 Arrival Date: 08/19/2021 Time: 11:28 Bed 17 Private MD: Diagnosis: Chest pain, unspecified Presentation: 08/19 11:32 Chief complaint: EMS states: [place] [facility] AT HOME. Coronavirus screen: At bp this time, the client does not indicate any symptoms associated with coronavirus-19. Ebola Screen: No symptoms or risks identified at this time. Initial Sepsis Screen: Does the patient meet any 2 criteria? HR > 90 bpm. No. Patient's initial sepsis screen is negative. Does the patient have a suspected source of infection? No. Patient's initial sepsis screen is negative. Risk Assessment: Do you want to hurt yourself or someone else? Patient reports no desire to harm self or others. Onset of symptoms is unknown. Care prior to arrival: IV initiated. 18 GA, in the left forearm, Glucose check: 111. 11:32 Method Of Arrival: EMS: [facility] bp 11:32 Acuity: DAMIR 3 bp Triage Assessment: 11:34 General: Appears in no apparent distress. comfortable, Behavior is cooperative, bp appropriate for age, anxious. Pain: Denies pain. EENT: No deficits noted. Neuro: Level of Consciousness is awake, alert, obeys commands, Oriented to Appropriate for age. Cardiovascular: Rhythm is sinus tachycardia. Respiratory: No deficits noted. GI: No signs and/or symptoms were reported involving the gastrointestinal system. : No signs and/or symptoms were reported regarding the genitourinary system. Derm: No deficits noted. Musculoskeletal: No deficits noted. Historical: - Allergies: 11:34 Codeine; bp 11:34 Demerol; bp 11:34 lamital; bp 11:34 PENICILLINS; bp 11:34 Sulfa (Sulfonamide Antibiotics); bp - Home Meds: 11:34 amlodipine 5 mg tab 1 tab once daily [Active]; atorvastatin Oral [Active]; budesonide bp Oral [Active]; clonazepam 0.5 mg Oral tab [Active]; duloxetine 60 mg Oral cpDR 1 cap once daily [Active]; Hydralazine Oral [Active]; hydroxyzine HCl 25 mg Oral tab [Active]; lisinopril 20 mg Oral tab 1 tab once daily [Active]; omeprazole 20 mg Oral TbEC [Active]; Potassium Chloride Oral [Active]; pramipexole 1 mg Oral tab 3 times per day [Active]; primidone 50 mg Oral tab [Active]; ropinirole 1 mg Oral tab 3 times per day [Active]; tamsulosin 0.4 mg Oral cp24 1 cap once daily [Active]; - PMHx: 11:34 Congestive heart failure; Hyperlipidemia; CVA; Hyperlipidemia; Hypertension; Myocardial bp infarction; Parkinsons; PTSD; - Immunization history:: Adult Immunizations up to date. - Social history:: Smoking status: unknown. Screenin:36 Abuse screen: Denies threats or abuse. Denies injuries from another. Nutritional bp screening: No deficits noted. Tuberculosis screening: No symptoms or risk factors identified. Fall Risk None identified. Assessment: 11:36 General: SEE TRIAGE NOTE. bp 12:30 Reassessment: No changes from previously documented assessment. Patient and/or family bp updated on plan of care and expected duration. Pain level reassessed. 14:00 Reassessment: No changes from previously documented assessment. Patient and/or family bp updated on plan of care and expected duration. Pain level reassessed. 15:00 Reassessment: No changes from previously documented assessment. Patient and/or family bp updated on plan of care and expected duration. Pain level reassessed. 16:00 Reassessment: No changes from previously documented assessment. ADMIT INITIATED. bp 18:00 Reassessment: No changes from previously documented assessment. Patient and/or family bp updated on plan of care and expected duration. Pain level reassessed. Vital Signs: 11:32 BP 119 / 63; Pulse 128; Resp 16; Temp 97.5; Pulse Ox 95% on 2 lpm NC; bp 12:30 BP 121 / 58; Pulse 110; Resp 13; Pulse Ox 94% ; Weight 56.7 kg; bp 14:00 BP 114 / 61; Pulse 121; Resp 13; Pulse Ox 96% ; bp 15:00 BP 112 / 59; Pulse 117; Resp 15; Pulse Ox 94% ; bp 16:00 BP 121 / 61; Pulse 74; Resp 12; Pulse Ox 93% ; bp 17:00 BP 150 / 55; Pulse 71; Resp 13; Pulse Ox 93% ; bp 18:00 BP 132 / 43; Pulse 69; Resp 20; Pulse Ox 96% ; bp 20:33 BP 124 / 54; Pulse 70; Resp 15; Pulse Ox 93% on R/A; kd3 [place] Coma Score: 11:34 Eye Response: spontaneous(4). Verbal Response: oriented(5). Motor Response: obeys bp commands(6). Total: 15. ED Course: 11:28 Patient arrived in ED. iw 11:32 Seth Morse, RN is Primary Nurse. bp 11:33 Triage completed. bp 11:35 Arm band placed on. bp 11:36 Patient has correct armband on for positive identification. Bed in low position. Call bp light in reach. Side rails up X2. Adult w/ patient. Client placed on continuous cardiac and pulse oximetry monitoring. NIBP monitoring applied. 11:36 Maintain EMS IV. Dressing intact. Good blood return noted. Site clean \T\ dry. Gauge \T\ bp site: 18 GA LEFT FA. 11:41 Donnell Omer NP is PHCP. pm1 11:41 Hao Joyce MD is Attending Physician. pm1 12:24 Head Brain Wo Cont In Process Unspecified. EDMS 12:35 XRAY Chest (1 view) In Process Unspecified. EDMS 14:50 Michael Burkett is Hospitalizing Provider. pm1 16:56 Siobhan Barillas MD is Hospitalizing Provider. pm1 16:58 Michael Burkett is Hospitalizing Provider. pm1 20:33 Seizure precautions initiated. kd3 21:41 No provider procedures requiring assistance completed. Patient admitted, IV remains in kd3 place. Administered Medications: 15:20 Drug: NS 0.9% 500 ml Route: IV; Rate: bolus; Site: left forearm; bp 16:38 Follow up: IV Status: Completed infusion; IV Intake: 500ml bp 15:20 Drug: morphine 4 mg Route: IVP; Infused Over: 4 mins; Site: left antecubital; bp 16:38 Follow up: Response: Pain is decreased bp 15:20 Drug: Zofran (Ondansetron) 4 mg Route: IVP; Site: left antecubital; bp 16:39 Follow up: Response: No adverse reaction bp 15:20 Drug: NS 0.9% 500 ml Route: IV; Rate: bolus; Site: left antecubital; bp 16:39 Follow up: IV Status: Completed infusion; IV Intake: 500ml bp 15:30 Drug: Digoxin 0.5 mg Route: IVP; Site: left forearm; bp 16:39 Follow up: Response: Pain is decreased bp 15:30 Drug: Metoprolol 5 mg Route: IVP; Site: left forearm; bp 16:38 Follow up: Response: Cardiac rhythm changed bp 16:45 Drug: Lovenox (enoxaparin) 1 mg/kg Route: Sub-Q; Site: right lower abdomen; bp 18:32 Follow up: Response: No adverse reaction bp 20:35 Follow up: Response: No adverse reaction kd3 17:15 Drug: Zofran (Ondansetron) 4 mg Route: IVP; Site: left forearm; bp 18:32 Follow up: Response: No change in condition bp 20:34 Follow up: Response: No adverse reaction kd3 18:29 CANCELLED (Physician Discretion): Reglan (metoCLOPramide) 10 mg IVP once; over 1 to 2 pm1 minutes 18:32 Drug: Phenergan (promethazine) 6.25 mg Route: IVP; Site: left forearm; bp 20:34 Follow up: Response: No adverse reaction kd3 Medication: 11:36 VIS not applicable for this client. bp Intake: 16:38 IV: 500ml; Total: 500ml. bp 16:39 IV: 500ml; Total: 1000ml. bp Outcome: 14:51 Decision to Hospitalize by Provider. pm1 21:41 Admitted to Med/surg room 403. kd3 21:41 Condition: stable 21:41 Discharge instructions given to patient, family, Instructed on the need for admit, Demonstrated understanding of instructions. 22:02 Patient left the ED. kd3 Signatures: Dispatcher [employer] EDMS Yamini Noyola RN RN iw Donnell Omer NP ACCOUNT RELATIONSHIP MANAGER pm1 Seth Morse RN RN bp Marni Waldrop RN RN kd3 Corrections: (The following items were deleted from the chart) 16:29 12:30 BP 121 / 58; Pulse 110bpm; Resp 13bpm; Pulse Ox 94%; bp bp
[2021-08-19] MEDS ORDERED: METOPROLOL TARTRATE 5 MG/5 ML INJ IV ONE (15:45)
[2021-08-19] MEDS ORDERED: MORPHINE 4 MG/ML SYR ONE (15:45)
[2021-08-19] MEDS ORDERED: ONDANSETRON 4 MG/2 ML VIAL ONE ×2 (15:45→17:17)
[2021-08-19] MEDS ORDERED: NA CHLORIDE 0.9% 1,000 ML ONE (15:46)
[2021-08-19] MEDS ORDERED: DIGOXIN 0.25 MG/ML AMP ONE (15:47)
[2021-08-19] MEDS ORDERED: ENOXAPARIN 60 MG/0.6 ML SQ ONE (16:29)
[2021-08-19] MEDS ORDERED: METOCLOPRAMIDE 10 MG/2mL INJ ONE (18:35)
[2021-08-19] MEDS ORDERED: PROMETHAZINE INJ 25 MG/ML AMP ONE (18:37)
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
[2021-08-19] MEDS ORDERED: ONDANSETRON 4 MG/2 ML VIAL IV PRN (21:52)
[2021-08-19] MEDS ORDERED: ACETAMINOPHEN 500 MG TAB PO PRN (21:52)
[2021-08-19 23:27] VITALS: BMI 26.2
[2021-08-19] MEDS ORDERED: HEPARIN 5000 UNIT/ML 1 ML VIAL IV SCH (23:45)
[2021-08-19] MEDS ORDERED: HEPARIN/D5W 25,000 UNIT/500 ML BAG IV SCH (23:45)
[2021-08-20 04:40] LABS: Absolute Lymphocytes (CBC) 1.6 K/uL (0.7-4.9); Hematocrit 33.9 % (36.0-45.0); Lymphocytes % 27.6 % (15.3-44.8); MCV 91.1 fL (80-100); MPV 8.4 fL (7.6-11.3); RBC Red Blood Cell Count 3.72 M/uL (3.86-4.86)
[2021-08-20 05:19] LABS: Phosphorus 3.3 mg/dL (2.5-4.9); Potassium 4.1 mmol/L (3.5-5.1); Thyroid Stimulating Hormone 3.06 uIU/mL (0.360-3.740)
[2021-08-20] MEDS ORDERED: PNEUMOCOCCAL VACCINE 0.5 ML IMVAC ONE (08:00)
[2021-08-20] MEDS ORDERED: ENOXAPARIN 40 MG/0.4 ML SQ SCH (09:00)
[2021-08-20] MEDS: ASPIRIN EC 81 MG TAB PO SCH (09:10)
--- NOTE | 2021-08-20 13:06 | EKG ---
Test Date: 2021-08-19 Test Time: 18:21:17 Geriatrician: HARSHAD MEASUREMENT RESULTS: Intervals: Rate: 69 [place]: QRSD: 68 QT: 412 QTc: 441 [place]: P: [place]: QRS: 243 T: 147 INTERPRETIVE STATEMENTS: Suspect arm lead reversal, interpretation assumes no reversal Sinus tachycardia with 2nd degree AV block (Mob[place] I) Inferior infarct, age undetermined Anterolateral infarct, age undetermined Abnormal ECG Compared to ECG 08/19/2021 11:49:09 Left anterior fascicular block no longer present Myocardial infarct finding still present Electronically Signed On 08-20-21 13:04:21 CDT by Chris Strauss
--- NOTE | 2021-08-20 13:07 | EKG ---
Test Date: 2021-08-19 Test Time: 11:49:09 Diamond Sorter: BP MEASUREMENT RESULTS: Intervals: Rate: 121 NC: QRSD: 68 QT: 346 QTc: 491 [place]: P: [place]: QRS: -59 T: 77 INTERPRETIVE STATEMENTS: Supraventricular tachycardia RSR' or QR pattern in V1 suggests right ventricular conduction delay Left anterior fascicular block Anterior infarct, age undetermined Abnormal ECG Compared to ECG 01/25/2021 15:02:51 RSR' in V1 or V2 now present Sinus rhythm no longer present Atrial premature complex(es) no longer present First degree AV block no longer present Left ventricular hypertrophy no longer present Myocardial infarct finding still present Electronically Signed On 08-20-21 13:06:09 CDT by Chris Strauss
--- NOTE | 2021-08-20 14:38 | P.PN ---
Subjective Date of Service: 08/20/21 Chief Complaint: Chest Pain, Psuedoseizure, Afib Patient denies any complaint today. She is awake and alert. No reported seizures since admission. She denies any chest pain at this time. Physical Examination - Vital Signs Temperature: 98.6 F Blood Pressure: 107/51 Pulse: 57 Respirations: 14 Pulse Ox (%): 94 - Physical Exam General: Alert, In no apparent distress, Oriented x3 HEENT: Mucous membr. moist/pink Neck: Supple, JVD not distended Respiratory: Clear to auscultation bilaterally, Normal air movement Cardiovascular: No edema, Regular rate/rhythm, Normal S1 S2 Gastrointestinal: Normal bowel sounds, Soft and benign, Non-distended, No tenderness Musculoskeletal: No clubbing, No swelling Integumentary: No rashes, No erythema, No cyanosis Neurological: Normal speech, Normal strength at 5/5 x4 extr, Cranial nerves 3-12 intact - Studies Laboratory Data (last 24 hrs) 08/20/21 04:26: APTT 95.9 H 08/20/21 04:26: Sodium 139, Potassium 4.1, BUN 22 H, Creatinine 1.12, Glucose 92, Phosphorus 3.3, Magnesium 2.0, Triglycerides 77, Cholesterol 162, HDL Cholesterol 60, Cholesterol/HDL Ratio 2.70 08/20/21 04:26: WBC 5.8 D, Hgb 11.8 L, Hct 33.9 L, Plt Count 205 Assessment And Plan - Current Problems (Diagnosis) (1) Seizure-like activity Current Visit: Yes Status: Acute (2) Atrial fibrillation and flutter Current Visit: Yes Status: Acute (3) Chest pain Current Visit: Yes Status: Acute Qualifiers: Chest pain type: unspecified Qualified Code(s): R07.9 - Chest pain, unspecified (4) History of CVA (cerebrovascular accident) Current Visit: No Status: Chronic (5) History of [place] (myocardial infarction) Current Visit: No Status: Chronic (6) NSTEMI (non-ST elevated myocardial infarction) Current Visit: Yes Status: Acute - Plan Continue heparin drip, aspirin for NSTEMI. Patient seen by cardiology-Dr. Dsouza who is planning cardiac catheterization tomorrow. She is bradycardic precluding beta-javier use. LDL within normal limits but above target of 70. Increase home dose Lipitor from 10 mg to 20 mg daily. EEG done to further evaluate seizure-like activity and the result is pending. Neurology-Dr. So consulted to evaluate.
[2021-08-20] MEDS ORDERED: HOME MED [ALBUTEROL INHALER 60 PUFF/8 GM] IH PRN (14:43)
[2021-08-20 14:51] LABS: Urine Appearance Clear (Clear); Urine Bilirubin NEGATIVE (Negative); Urine Blood Negative (Negative); Urine Color Yellow (Yellow); Urine Glucose NEGATIVE (Negative)
[2021-08-20 14:52] LABS: Urine Protein NEGATIVE (Negative); Urine Urobilinogen 0.2 mg/dL (0.2-1.0)
[2021-08-20] MEDS ORDERED: ATORVASTATIN 20 MG TAB PO SCH (21:00)
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
[2021-08-21 04:48] LABS: Absolute Lymphocytes (CBC) 1.7 K/uL (0.7-4.9); Hematocrit 32.6 % (36.0-45.0); Lymphocytes % 36.4 % (15.3-44.8); MCV 92.4 fL (80-100); MPV 8.6 fL (7.6-11.3); RBC Red Blood Cell Count 3.53 M/uL (3.86-4.86)
[2021-08-21 04:58] LABS: Potassium 3.6 mmol/L (3.5-5.1)
[2021-08-21] MEDS ORDERED: HEPA 1000U/500MLS 1,000 UNIT/500 ML BAG IV ONE (06:53)
[2021-08-21] MEDS: ASPIRIN EC 81 MG TAB PO SCH (08:05)
[2021-08-21] MEDS ORDERED: ATROPINE SULF 1 MG/10 ML SYR IV ONE (08:14)
[2021-08-21] MEDS ORDERED: MIDAZOLAM HCL 2 MG/2 ML INJ ONE ×2 (08:14→08:53)
[2021-08-21] MEDS ORDERED: NITROGLYCERIN 100 MCG/ML SYR (for cath lab use only) IV ONE (08:14)
[2021-08-21] MEDS ORDERED: FENTANYL CITR 100 MCG/2 ML ONE (08:14)
[2021-08-21] MEDS ORDERED: NA CHLORIDE 0.9% 0 ML IV ONE (08:15)
[2021-08-21] MEDS ORDERED: NA CHLORIDE 0.9% 500 ML ONE (08:16)
--- NOTE | 2021-08-21 08:26 | ECHO ---
HEIGHT: 5 ft 0 in WEIGHT: 134 lb 0 oz DATE OF STUDY: 08/20/[address]: Zenaida Canales 2-DIMENSIONAL: YES M.MODE: YES DOPPLER: YES COLOR FLOW: YES TDS: NO PORTABLE: YES DEFINITY: NO BUBBLE STUDY: NO DIAGNOSIS: ATRIAL FIBRILLATION, CONGESTIVE HEART FAILURE, CHEST PAIN CARDIAC HISTORY: CATHERIZATION:YES SURGERY: NO PROSTHETIC VALVE: NO PACEMAKER: NO MEASUREMENTS (cm) DIASTOLIC (NORMALS) SYSTOLIC (NORMALS) IVSd 1.0 (0.6-1.2) LA Diam 2.7 (1.9-4.0) LVEF 78% LVIDd 3.6 (3.5-5.7) LVIDs 1.9 (2.0-3.5) %FS 45% LVPWd 1.1 (0.6-1.2) Ao Diam 2.4 (2.0-3.7) 2 DIMENSIONAL ASSESSMENT: RIGHT ATRIUM: NORMAL LEFT ATRIUM: NORMAL RIGHT VENTRICLE: NORMAL LEFT VENTRICLE: NORMAL TRICUSPID VALVE: NORMAL MITRAL VALVE: NORMAL PULMONIC VALVE: NORMAL AORTIC VALVE: NORMAL PERICARDIAL EFFUSION: NONE AORTIC ROOT: NORMAL LEFT VENTRICULAR WALL MOTION: NORMAL DOPPLER/COLOR FLOW: MILD TRICUSPID REGURGITATION. COMMENTS: NORMAL LEFT VENTRICULAR SIZE AND FUNCTION. ATRIAL FIBRILLATION. NO THROMBUS. NORMAL LEFT ATRIAL SIZE. TECHNOLOGIST: Alisa ROSAS
[2021-08-21] MEDS ORDERED: HYDRALAZINE HCL 20 MG/ML VIAL ONE (09:23)
[2021-08-21 09:56] VITALS: O2SAT 100
[2021-08-21 12:15] VITALS: BP 154/55; TEMP 97.1
--- NOTE | 2021-08-21 15:04 | P.DS ---
Admission Date: 08/20/21 Discharge Date: 08/21/21 Disposition: ROUTINE DISCHARGE Discharge Condition: FAIR Reason for Admission: Chest Pain, Psuedoseizure, Afib - Problems (1) Seizure-like activity Current Visit: Yes Status: Acute (2) Atrial fibrillation and flutter Current Visit: Yes Status: Acute (3) Chest pain Current Visit: Yes Status: Acute Qualifiers: Chest pain type: unspecified Qualified Code(s): R07.9 - Chest pain, unspecified (4) History of CVA (cerebrovascular accident) Current Visit: No Status: Chronic (5) History of [place] (myocardial infarction) Current Visit: No Status: Chronic (6) NSTEMI (non-ST elevated myocardial infarction) Current Visit: Yes Status: Acute Brief History of Present Illness: Patient is an 86-year-old female with CAD, afib, diastolic CHF, hypertension, history of CVA and [place] who presented to the ED via EMS with complaints of chest pain and subjective seizure. Patient reports feeling weak and experiencing pain in her chest that radiated to her left arm. Her daughter states that she also had a seizure (has history). EKG showed aflutter 2:1. She converted to NSR after 0.5 mg of digoxin and 5 mg IV metoprolol. Labs without significant abnormalities. Troponin negative. Patient reports her chest pain resolved when her rhythm converted. She states that she is a patient of Dr. So but had not seen him in 2 years. She was not taking any rate controlling medications or blood thinners. She was given therapeutic Lovenox in the ED. Patient hospitalized for further management. Hospital Course: Patient admitted to the medical floor. Her troponin trended up. She was started on heparin drip and evaluated by cardiology-Dr. Dsouza who performed cardiac catheterization. Dr. Dsouza reports no coronary artery occlusion noted during the cardiac catheterization. Patient also seen by neurology Dr. So and EEG done which per Dr. So is unremarkable. Patient diagnosed with pseudoseizures and follow-up with a psychiatrist recommended by Dr. So. Patient is currently asymptomatic and deemed stable for discharge. Vital Signs/Physical Exam: Temp Pulse Resp BP Pulse Ox 97.1 F 73 16 154/55 H 93 08/21/21 12:00 08/21/21 12:00 08/21/21 12:00 08/21/21 12:00 08/21/21 12:00 General: Alert, In no apparent distress, Oriented x3 HEENT: Mucous membr. moist/pink Neck: Supple, JVD not distended Respiratory: Clear to auscultation bilaterally, Normal air movement Cardiovascular: No edema, Regular rate/rhythm, Normal S1 S2 Capillary refill: <2 Seconds Gastrointestinal: Normal bowel sounds, Soft and benign, Non-distended, No tenderness Musculoskeletal: No swelling Integumentary: No rashes, No cyanosis Neurological: Normal strength at 5/5 x4 extr Laboratory Data at Discharge: WBC 4.5 K/uL (4.3-10.9) D 08/21/21 04:05 Hgb 11.3 g/dL (12.0-15.0) L 08/21/21 04:05 Hct 32.6 % (36.0-45.0) L 08/21/21 04:05 Plt Count 161 K/uL (152-406) D 08/21/21 04:05 PT 10.3 SECONDS (9.2-12.8) 08/19/21 12:35 INR 0.86 08/19/21 12:35 APTT 63.7 SECONDS (24.3-36.9) H 08/21/21 05:42 Sodium 141 mmol/L (136-145) 08/21/21 04:05 Potassium 3.6 mmol/L (3.5-5.1) 08/21/21 04:05 BUN 24 mg/dL (7-18) H 08/21/21 04:05 Creatinine 1.09 mg/dL (0.55-1.3) 08/21/21 04:05 Glucose 87 mg/dL (74-106) 08/21/21 04:05 Phosphorus 3.3 mg/dL (2.5-4.9) 08/20/21 04:26 Magnesium 2.0 mg/dL (1.8-2.4) 08/20/21 04:26 Total Bilirubin 1.1 mg/dL (0.2-1.0) H 08/19/21 12:35 AST 15 U/L (15-37) 08/19/21 12:35 ALT 17 U/L (12-78) 08/19/21 12:35 Alkaline Phosphatase 89 U/L (45-117) 08/19/21 12:35 Triglycerides 77 mg/dL (<150) 08/20/21 04:26 Cholesterol 162 mg/dL (<200) 08/20/21 04:26 HDL Cholesterol 60 mg/dL (40-60) 08/20/21 04:26 Cholesterol/HDL Ratio 2.70 08/20/21 04:26 Home Medications: Albuterol Sulfate [Proair Hfa] 2 puff IH Q4HP PRN 08/19/21 Aspirin Chewable [Aspirin Chewable*] 81 mg PO DAILY 08/19/21 Atorvastatin Calcium [Lipitor*] 10 mg PO BEDTIME 08/19/21 Hydralazine [Apresoline*] 25 mg PO BID 08/19/21 Diet: AHA Activity: Fall precautions Followup: Moisés So MD [ASSOCIATE-ACTIVE - CAN ADMIT] - (Call office for appointment) Deirdre Onofre MD [Primary Care Provider] - 1-2 Weeks Time spent managing pt's care (in minutes): 37
--- NOTE | 2021-08-22 11:11 | CON ---
Date of Consultation: 08/20/2021 The patient was admitted on 08/19/[address] Burkett's service. I saw the patient on 08/20/2021. Reason For Consultation: Unstable angina. History Of Present Illness: Ms. Breaux is an 86-year-old woman. She has a history of posttraumatic stress disorder. Has a history of congestive heart failure, hypertension, dyslipidemia, CVA, radha onism, and seizure disorder. Came in with unstable angina symptoms as well as seizure. Her chest pa in radiating to the left arm and the jaw with shortness of breath and diaphoresis, but was not exerti onal. She has had a negative stress test and echocardiogram in the past, but continued to have sympt oms when I saw her. Past Medical History: As stated above. Allergies: SHE IS ALLERGIC TO CODEINE, DEMEROL, PENICILLIN, AND SULFA. Review of Systems: Negative. Social History: Negative. Family History: Noncontributory. Medications: At home include potassium, primidone, tamsulosin, amlodipine, Lipitor, clonazepam, dulo xetine, hydralazine, hydroxyzine, lisinopril, and omeprazole. Physical Examination: Vital Signs: Stable. She was afebrile. HEENT: Negative. Neck: Supple with no bruit. Chest: Clear to auscultation and percussion. Cardiac: Revealed a regular rhythm and rate. No murmurs, gallops, or rubs. Abdomen: Benign. Extremities: Revealed no clubbing, cyanosis, or edema. Diagnostic Data: Chest x-ray showed fibrotic lung pattern. EKG showed old anterior infarct with lef t anterior hemiblock. Echocardiogram showed an ejection fraction of 78% with mild tricuspid regurgit ation. Normal right ventricular systolic pressure. Impression And Plan: Ms. Breaux' symptoms are very consistent with unstable angina. There is subste rnal chest pressure radiating to the arm and jaw with diaphoresis and shortness of breath. She has a n abnormal EKG. I am very more comfortable with her doing a left heart catheterization with selectiv e coronary arteriogram to define her coronary anatomy. She understands the risk and the benefits of the procedure and she agrees to proceed. There is neurological consultation pending for possible sei zure. Her other problems at this point remain stable and well controlled. She does have a history o f congestive heart failure that is probably diastolic, although her echocardiogram is normal. We albaro l see what the catheterization shows before making further decisions. WESLEY Voice ID: [id number] Report ID: [id number]
--- NOTE | 2021-08-22 12:17 | OP ---
Surgeon: Bryon Dsouza MD Phys Asst: Ms. Jazlyn Britton. Procedures: Left heart catheterization, selective coronary arteriogram, and common femoral artery an giogram. Ms. Breaux came in to the hospital on 08/19/2021. I saw her on 08/20/2021. She underwent left heart catheterization, selective coronary arteriogram, and common femoral artery angiogram on 08/21/2021. Indication: Unstable angina. Procedure In Detail: She was brought to the skilled labor as an inpatient, prepped and draped in routine sterile fashion. Given Versed and fentanyl for sedation. A 6-[place]aur[place] sheath was introduced in the [facility] common femoral artery successfully using 10 cc of Xylocaine and Seldinger technique. Vishal cat heter left and right were used to cannulate the left main and right main respectively. She was right dominant RCA was normal. Her left circumflex, left main, and LAD were also normal. The patient alisa erated the procedure well. There were no complications. Common femoral artery angiogram was normal. Angio-Seal was used to close the case. There were no complications. Blood Loss: 5 cc. Anesthesia: Total conscious sedation was 30 minutes. Final Diagnoses: Unstable angina, normal heart catheterization. Plan: Plan for her to go home in 2 hours after bedrest. Continue home medications and she will see us in the office in the next 2 weeks. ULI/KATTY Voice ID: [id number] Report ID: [id number]
--- NOTE | 2021-08-24 06:52 | EEG ---
CHART: [id number] TEST ID#: [id number] DATE OF STUDY: 08/20/2021 THE EEG WAS RECORDED PORTBALE IN THE PATIENT'S ROOM ON A 17 CHANNEL MACHINE. ELECTRODES WERE APPLIED IN THE USUAL MANNER USING THE INTERNATIONAL 10-20 SYSTEM. THE WAKING BACKGROUND RHYTHM IN THIS RECORD CONSISTS OF VERY WELL DEVELOPED AND WELL ORGANIZED WAVES OF 8.5 HZ., MAXIMAL IN THE POSTERIOR HEAD REGIONS WHICH ATTENUATE NORMALLY WITH EYE OPENING. LOW-VOLTAGE 18-22 HZ ACTIVITY IS EXPRESSED IN TH FRONTAL REGIONS. THERE ARE NO FOCAL OR LATERALIZING FEATURES. NO EPILEPTIFORM ACTIVITY APPEARS. SLEEP DID NOT OCCUR. HYPERVENTILATION WAS NOT PERFORMED. PHOTIC STIMULATION PRODUCED NO DRIVING BILATERALLY. IMPRESSION: NORMAL EEG FOR THE AGE OF THE PATIENT IN [place].
== END 2021-08-21 15:21 | disposition home or self-care (01) | DRG 281 ==
LOC: ER 11:21 → ERHOLD 19:53 → 4TH 21:42 → OBSVTOIN 08-20 08:34 → 2ND 08-21 14:54
PROVIDERS: ADMIT Internal Medicine; ATTEND Internal Medicine
PROC: B2011ZZ Plain Radiography of Multiple Coronary Arteries using Low Osmolar Contrast (ICD-10-PCS; principal; 2021-08-21)
DX: I21.4 Non-ST elevation (NSTEMI) myocardial infarction (principal); I50.32 Chronic diastolic (congestive) heart failure; R56.9 Unspecified convulsions; I11.0 Hypertensive heart disease with heart failure; I48.91 Unspecified atrial fibrillation; J44.9 Chronic obstructive pulmonary disease, unspecified; G47.33 Obstructive sleep apnea (adult) (pediatric); E78.5 Hyperlipidemia, unspecified; F43.10 Post-traumatic stress disorder, unspecified; Z86.73 Personal history of transient ischemic attack (TIA), and cerebral infarction without residual deficits; I25.2 Old myocardial infarction; Z88.2 Allergy status to sulfonamides; Z88.0 Allergy status to penicillin; Z20.822 Contact with and (suspected) exposure to COVID-19; Z23 Encounter for immunization
CPT/HCPCS: 36415; 70450; 71045; 80048; 80061; 80076; 81003; 83735; 83880; 84100; 84443; 84484; 85025; 85610; 85730; 90471; 90732; 93005; 93306; 93454; 95816; 96372; 97116; 97161; 99285; C1893; G0378; J0360; J0583; J1160; J1644; J1650; J2250; J2405; J2550; J2765; J3010; J7030; J7040; Q9966; U0003

== ENCOUNTER 2021-08-25 13:13 | Inpatient (IN) | payer OTHER ==
--- NOTE | 2021-08-25 14:25 | RAD REPORT ---
EXAM DESCRIPTION: RAD - Chest Single View - 08/25/2021 1:49 pm CLINICAL HISTORY: pain all over COMPARISON: Chest Single View dated 08/19/2021; Chest Single View dated 01/25/2021; Chest Single View dated 06/15/2020; Chest Single View dated 12/21/2018; Angio Aorta For Dissection dated 01/25/2021 FINDINGS: Lines: None. Lungs: Nondescript small nodules at the right lung base may be related to the patient's suspected chr onic/indolent infectious process. . Emphysema. No acute process identified. Apical scarring. Pleural: No significant pleural effusions or pneumothorax. Blunting of the left costophrenic angle li aime related to the patient's pericardial fat pad configuration. Cardiac: The heart size is within normal limits. Bones: No acute fractures. Other: IMPRESSION: Chronic changes without a new superimposed acute process identified.
[2021-08-25 15:10] LABS: Protime INR 1.52
[2021-08-25 15:11] LABS: Absolute Lymphocytes (CBC) 0.9 K/uL (0.7-4.9); Hematocrit 38.1 % (36.0-45.0); MPV 8.8 fL (7.6-11.3); RBC Red Blood Cell Count 4.15 M/uL (3.86-4.86)
[2021-08-25 15:28] LABS: Albumin 3.7 g/dL (3.4-5.0); Magnesium 2.1 mg/dL (1.8-2.4); Potassium 3.6 mmol/L (3.5-5.1)
[2021-08-25] MEDS ORDERED: ACETAMINOPHEN 325 MG TABLET ONE (15:41)
[2021-08-25] MEDS ORDERED: NA CHLORIDE 0.9% 250 ML ONE (15:41)
[2021-08-25 15:44] LABS: Bilirubin Direct 0.4 mg/dL (0-0.2); Bilirubin Total 1.6 mg/dL (0.2-1.0); Troponin High Sensitivity 26.3 pg/mL (<58.9)
[2021-08-25] MEDS ORDERED: IBUPROFEN 200 MG TAB PO ONE (15:56)
[2021-08-25] MEDS ORDERED: IBUPROFEN 400 MG TAB ONE (15:56)
[2021-08-25] MEDS ORDERED: MORPHINE 2 MG/ML SYR ONE (16:09)
--- NOTE | 2021-08-25 16:59 | RAD REPORT ---
EXAM DESCRIPTION: CTAngio Aorta For Dissection - 08/25/2021 4:33 pm CLINICAL HISTORY: chest pain, abdomen pain COMPARISON: Angio Aorta For Dissection dated 01/25/2021; Chest Single View dated 08/25/2021 TECHNIQUE: CTA of the chest, abdomen, and pelvis was performed. MIPS were provided of the aorta. All CT scans are performed using dose optimization technique as appropriate and may include automated exposure control or mA/KV adjustment according to patient size. FINDINGS: Thorax: Chest Wall: No abnormal mass Lungs: Scattered mild chronic nodularity and micro nodularity likely reflecting a chronic or indolent infectious process. Pleura: No effusions or pneumothorax. Sandy/Mediastinum: No lymphadenopathy. Mild thickened distal esophagus . Aorta/Pulmonary Arteries: Unremarkable Heart: Normal size. Abdomen/Pelvis: Liver: No acute abnormality or suspicious lesions. Biliary: No biliary ductal dilatation. Stomach: No significant focal abnormality. Duodenum: No significant focal abnormality. Pancreas: No significant abnormality. Spleen: No significant abnormality. Adrenal: No suspicious lesions. Kidney/ureter: No hydronephrosis. No renal calculi. Retroperitoneum: No retroperitoneal adenopathy. Vascular: No aneurysm. Atherosclerosis. Bowel: Sigmoid diverticulitis with pericolonic stranding and reactive wall thickening. No perforation or abscess.. Peritoneum: No ascites or free air. Bladder: Grossly unremarkable. Reproductive: Hysterectomy. Bones: No acute fracture. Other: n/a IMPRESSION: 1. No aortic aneurysm, dissection, or pulmonary embolus identified. 2. Interval development of non perforated sigmoid diverticulitis.
--- NOTE | 2021-08-25 17:23 | ER ---
Nurse's Notes [facility] Name: Madiha Breaux Age: 86 yrs Sex: Female : 1935 Arrival Date: 08/25/2021 Time: 13:16 Bed 5 Private MD: Deirdre Onofre Diagnosis: Diverticulitis of large intestine without perforation or abscess without bleeding Presentation: 08/25 13:31 Chief complaint: Chest pressure, headache, and lower abdominal pain x 2 days, diarrhea hb and nausea today. Recently had a cardiac cath and started Eliquis. Coronavirus screen: At this time, the client does not indicate any symptoms associated with coronavirus-19. Ebola Screen: No symptoms or risks identified at this time. Initial Sepsis Screen: Does the patient meet any 2 criteria? No. Patient's initial sepsis screen is negative. Does the patient have a suspected source of infection? No. Patient's initial sepsis screen is negative. Risk Assessment: Do you want to hurt yourself or someone else? Patient reports no desire to harm self or others. Onset of symptoms was August 25, 2021. 13:31 Method Of Arrival: Wheelchair hb 13:31 Acuity: DAMIR 3 hb Triage Assessment: 13:34 General: Appears in no apparent distress. Behavior is calm, cooperative. Pain: Pain hb currently is 8 out of 10 on a pain scale. Neuro: Level of Consciousness is awake, alert, obeys commands, Oriented to person, place, time, situation. Cardiovascular: Patient's skin is warm and dry. Respiratory: Respiratory effort is even, unlabored, Respiratory pattern is regular, symmetrical. Historical: - Allergies: 13:33 Codeine; hb 13:33 Demerol; hb 13:33 lamital; hb 13:33 PENICILLINS; hb 13:33 Sulfa (Sulfonamide Antibiotics); hb - PMHx: 13:33 Congestive heart failure; Hyperlipidemia; CVA; Hyperlipidemia; Hypertension; Myocardial hb infarction; Parkinsons; PTSD; - Immunization history:: Client reports having NOT received the Covid vaccine. - Social history:: Smoking status: Patient denies any tobacco usage or history of. Screenin:24 Abuse screen: Denies threats or abuse. Denies injuries from another. Nutritional as6 screening: No deficits noted. Tuberculosis screening: No symptoms or risk factors identified. Fall Risk None identified. Assessment: 14:30 Reassessment: Patient is alert, oriented x 3, equal unlabored respirations, skin bm7 warm/dry/pink. 16:13 Reassessment: Patient is alert, oriented x 3, equal unlabored respirations, skin bm7 warm/dry/pink. Patient states symptoms have not improved. pt states she is still having severe lower abdominal pain and a headache. Hao Topete notified and new orders received. In NAP. Granddaughter at bedside. . Vital Signs: 13:31 BP 146 / 69; Pulse 86; Resp 16; Temp 98.5; Pulse Ox 98% on R/A; Pain 8/10; hb 15:31 BP 173 / 57; Pulse 74; Resp 18; Temp 100.0(TE); Pulse Ox 95% on 1 lpm NC; bm7 16:00 BP 204 / 60 LA Sitting (auto/reg); bm7 16:00 BP 200 / 63 RA Sitting (auto/reg); bm7 16:12 BP 163 / 61; Pulse 77; Resp 16; Pulse Ox 97% on 1 lpm NC; Pain 8/10; bm7 20:23 BP 152 / 54; Pulse 57; Resp 11 S; Pulse Ox 96% on R/A; as6 ED Course: 13:16 Patient arrived in ED. mr 13:16 Deirdre Onofre is Private Physician. mr 13:16 Hao Topete PA is PHCP. cp 13:16 Santos Rod DO is Attending Physician. cp 13:33 Triage completed. hb 13:33 Arm band placed on. hb 13:48 XRAY Chest (1 view) In Process Unspecified. EDMS 14:18 Seth Morse, RN is Primary Nurse. bp 14:50 No apparent distress. Resting quietly. Awaiting lab results. bm7 14:50 Initial lab(s) drawn, by me, sent to lab. First set of blood cultures drawn by me, EKG bm7 done, COVID swab sent to lab. Flu and/or RSV swab sent to lab. Inserted saline lock: 20 gauge in right forearm, using aseptic technique. Blood collected. Oxygen administration via nasal cannula \T\ 1L/min. 15:10 Patient has correct armband on for positive identification. Placed in gown. Bed in low bm7 position. Call light in reach. Client placed on continuous cardiac and pulse oximetry monitoring. NIBP monitoring applied. campus monitor on. 15:30 Blood Culture Adult (2) Sent. bm7 15:30 Second set of blood cultures drawn. bm7 16:35 CT Aorta for Dissection In Process Unspecified. EDMS 17:21 Tito Paul is Hospitalizing Provider. cp 18:08 Leo Garcia MD is Hospitalizing Provider. la1 20:24 No provider procedures requiring assistance completed. Patient admitted, IV remains in as6 place. Administered Medications: 15:52 Drug: NS 0.9% 250 ml Route: IV; Rate: bolus; Site: right forearm; bm7 18:49 Follow up: IV Status: Completed infusion; IV Intake: 250ml bp 15:52 Drug: Ibuprofen 600 mg Route: PO; bm7 17:29 Follow up: Response: No adverse reaction bp 15:53 Not Given (Patient Refused): Tylenol 650 mg PO once bm7 16:11 Drug: morphine 2 mg Route: IVP; Infused Over: 4 mins; Site: right forearm; bm7 17:29 Follow up: Response: No adverse reaction; Pain is decreased bp 17:30 Drug: metroNIDAZOLE 500 mg Volume: 100 ml; Route: IVPB; Infused Over: 30 mins; Site: bp right forearm; 18:50 Follow up: IV Status: Completed infusion; IV Intake: 100ml bp 18:30 Drug: Ciprofloxacin 400 mg Volume: 200 ml; Route: IVPB; Infused Over: 60 mins; Site: bp right forearm; 20:03 Follow up: Response: No adverse reaction; IV Status: Completed infusion; IV Intake: as6 200ml Medication: 20:24 VIS not applicable for this client. as6 Intake: 18:49 IV: 250ml; Total: 250ml. bp 18:50 IV: 100ml; Total: 350ml. bp 20:03 IV: 200ml; Total: 550ml. as6 Outcome: 17:22 Decision to Hospitalize by Provider. cp 20:24 Admitted to Med/surg accompanied by tech, via wheelchair, room 224, with chart. as6 20:24 Condition: stable 20:24 Instructed on the need for admit. 20:35 Patient left the ED. kd3 Signatures: Dispatcher [employer] [facility] Lesley Flores mr Tito Paul, BRAKE LINING CURER-C BRAKE LINING CURER-Cla1 Page, GABRIELA Bui cp, Heather, RN RN hb Seth Morse, RN RN bp Sheeba Caballero, RN RN bm7 Rios Agudelo RN RN as6 Marni Wadlrop RN RN kd3 Corrections: (The following items were deleted from the chart) 13:34 13:31 Chief complaint: Chest pressure, headache, and abdominal pain x 2 days. Recently hb had a cardiac cath and started Eliquis. 13:35 13:31 Immunization history: Client reports receiving the 2nd dose of the Covid vaccine, hb hb
--- NOTE | 2021-08-25 17:23 | EDPHYS ---
Physician Documentation [facility] Name: Madiha Breaux Age: 86 yrs Sex: Female : 1935 Arrival Date: 08/25/2021 Time: 13:16 Bed 5 Private MD: Deirdre Onofre ED Physician Santos Rod HPI: 08/25 13:35 This 86 yrs old Female presents to ER via Wheelchair with complaints of cp Reaction to Medication. 13:35 Patient presents to ED with concern for possible reaction to recently started cp medication, Eliquis. Patient c/o chills, body aches, chest pressure, lower abdomen pain. Patient recently discharged from this hospital after undergoing cardiac catheterization. Daughter reports cardiac cath was normal. Historical: - Allergies: 13:33 Codeine; hb 13:33 Demerol; hb 13:33 lamital; hb 13:33 PENICILLINS; hb 13:33 Sulfa (Sulfonamide Antibiotics); hb - PMHx: 13:33 Congestive heart failure; Hyperlipidemia; CVA; Hyperlipidemia; Hypertension; Myocardial hb infarction; Parkinsons; PTSD; - Immunization history:: Client reports having NOT received the Covid vaccine. - Social history:: Smoking status: Patient denies any tobacco usage or history of. ROS: 13:40 Constitutional: Positive for body aches, Negative for fever, poor PO intake. cp 13:40 Eyes: Negative for injury, pain, redness, and discharge. cp 13:40 Cardiovascular: Positive for chest pain, Negative for palpitations. 13:40 Respiratory: Negative for cough, shortness of breath, wheezing. 13:40 Abdomen/GI: Positive for abdominal pain, nausea, diarrhea, Negative for constipation, black/tarry stool, rectal bleeding. 13:40 Neuro: Negative for altered mental status, weakness. 13:40 All other systems are negative. Exam: 13:45 Constitutional: The patient appears in no acute distress, alert, awake, cp non-diaphoretic, non-toxic, well developed, well nourished, uncomfortable. 13:45 Head/Face: Normocephalic, atraumatic. cp 13:45 Eyes: Periorbital structures: appear normal, Conjunctiva: normal, no exudate, no injection, Sclera: no appreciated abnormality, Lids and lashes: appear normal, bilaterally. 13:45 ENT: External ear(s): are unremarkable, Nose: is normal, Mouth: Lips: moist, Oral mucosa: pink and intact, moist, Posterior pharynx: Airway: no evidence of obstruction, patent. 13:45 Neck: ROM/movement: is normal, is supple, without pain, no range of motions limitations. 13:45 Chest/axilla: Inspection: normal. 13:45 Cardiovascular: Rate: normal, Rhythm: regular, Edema: is not appreciated, JVD: is not appreciated. 13:45 Respiratory: the patient does not display signs of respiratory distress, Respirations: normal, no use of accessory muscles, no retractions, labored breathing, is not present, Breath sounds: are clear throughout, no decreased breath sounds, no stridor, no wheezing. 13:45 Abdomen/GI: Inspection: abdomen appears normal, Bowel sounds: active, all quadrants, Palpation: soft, in all quadrants, mild abdominal tenderness, in the right lower quadrant and left lower quadrant, rebound tenderness, is not appreciated, involuntary guarding, is not appreciated. 13:45 Back: CVA tenderness, is absent. 13:45 Skin: cellulitis, is not appreciated, no rash present. 13:45 Neuro: Orientation: to person, place \\T\\ time. Mentation: is normal, Motor: moves all fours, strength is normal. 14:32 ECG was reviewed by the Attending Physician. cp Vital Signs: 13:31 BP 146 / 69; Pulse 86; Resp 16; Temp 98.5; Pulse Ox 98% on R/A; Pain 8/10; hb 15:31 BP 173 / 57; Pulse 74; Resp 18; Temp 100.0(TE); Pulse Ox 95% on 1 lpm NC; bm7 16:00 BP 204 / 60 LA Sitting (auto/reg); bm7 16:00 BP 200 / 63 RA Sitting (auto/reg); bm7 16:12 BP 163 / 61; Pulse 77; Resp 16; Pulse Ox 97% on 1 lpm NC; Pain 8/10; bm7 20:23 BP 152 / 54; Pulse 57; Resp 11 S; Pulse Ox 96% on R/A; as6 MDM: 14:00 Differential diagnosis: viral Infection, bacterial infection, bronchitis, pneumonia cp UTI, gastroenteritis, meningitis. 14:18 Patient medically screened. cp 17:10 Data reviewed: vital signs, nurses notes, lab test result(s), EKG, radiologic studies, cp CT scan, plain films. 17:10 Test interpretation: by ED physician or midlevel provider: ECG, plain radiologic cp studies. 17:20 Physician consultation: Eitan Stanley MD was called at 17:20, was contacted at 17:20, cp regarding admission, to the medical/surgical unit. will await to discuss patient with Tito Paul NP. 08/25 13:39 Order name: Basic Metabolic Panel; Complete Time: 15:46 cp 08/25 15:46 Interpretation: Normal except: GFR 53. 08/25 13:39 Order name: CBC with Diff; Complete Time: 15:21 08/25 15:21 Interpretation: Normal except: WBC 9.5; HCT 38.1; MILADYS% 83.1; LYM% 9.0. 08/25 13:39 Order name: LFT's; Complete Time: 15:46 08/25 15:46 Interpretation: Normal except: BILIT 1.6; BILID 0.4. 08/25 13:39 Order name: Magnesium; Complete Time: 15:46 cp 08/25 13:39 Order name: NT PRO-BNP; Complete Time: 15:46 08/25 13:39 Order name: PT-INR; Complete Time: 15:21 08/25 15:23 Interpretation: Reviewed. 08/25 13:39 Order name: Troponin HS; Complete Time: 15:46 08/25 15:55 Interpretation: Troponin HS 26.3; Reviewed. 08/25 13:39 Order name: Influenza Screen (a \\T\\ B); Complete Time: 15:46 08/25 13:39 Order name: COVID-19 SARS RT PCR (Document "Date of Onset" if Symptomatic); Complete cp Time: 17:08/25 17:07 Interpretation: Reviewed. 08/25 13:39 Order name: Urine Microscopic Only cp 08/25 13:40 Order name: Lactate; Complete Time: 15:46 08/25 13:40 Order name: Procalcitonin; Complete Time: 16:20 08/25 13:40 Order name: Blood Culture Adult (2) 08/25 15:56 Order name: CK; Complete Time: 17:07 cp 08/25 13:39 Order name: XRAY Chest (1 view); Complete Time: 15:21 08/25 15:23 Interpretation: Report review. 08/25 13:39 Order name: EKG; Complete Time: 13:39 08/25 13:39 Order name: Cardiac monitoring; Complete Time: 15:09 08/25 13:39 Order name: EKG - Nurse/Tech; Complete Time: 15:09 08/25 13:39 Order name: IV Saline Lock; Complete Time: 15:09 08/25 13:39 Order name: Labs collected and sent; Complete Time: 15:09 08/25 13:39 Order name: O2 Per Protocol; Complete Time: 15:09 08/25 13:39 Order name: O2 Sat Monitoring; Complete Time: 15: 08/25 15:49 Order name: CT Aorta for Dissection; Complete Time: 17:07 08/25 17:08 Interpretation: Report reviewed. EC:32 Rate is 78 beats/min. Rhythm is regular. WI interval is prolonged at 344 msec. QRS cp interval is normal. QT interval is normal. T waves are Inverted in leads aVR, V2. Interpreted by me. Reviewed by me. Administered Medications: 15:52 Drug: NS 0.9% 250 ml Route: IV; Rate: bolus; Site: right forearm; bm7 18:49 Follow up: IV Status: Completed infusion; IV Intake: 250ml bp 15:52 Drug: Ibuprofen 600 mg Route: PO; bm7 17:29 Follow up: Response: No adverse reaction bp 15:53 Not Given (Patient Refused): Tylenol 650 mg PO once bm7 16:11 Drug: morphine 2 mg Route: IVP; Infused Over: 4 mins; Site: right forearm; bm7 17:29 Follow up: Response: No adverse reaction; Pain is decreased bp 17:30 Drug: metroNIDAZOLE 500 mg Volume: 100 ml; Route: IVPB; Infused Over: 30 mins; Site: bp right forearm; 18:50 Follow up: IV Status: Completed infusion; IV Intake: 100ml bp 18:30 Drug: Ciprofloxacin 400 mg Volume: 200 ml; Route: IVPB; Infused Over: 60 mins; Site: bp right forearm; 20:03 Follow up: Response: No adverse reaction; IV Status: Completed infusion; IV Intake: as6 200ml Disposition: 22:35 Co-signature as Attending Physician, Santos Rod DO I was immediately available on-site ms3 in the Emergency Department for consultation in the care of the patient.. Disposition Summary: 08/25/21 17:22 Hospitalization Ordered Hospitalization Status: Inpatient Admission cp Location: Telemetry/MedSurg (Inpatient) cp Condition: Stable cp Problem: new cp Symptoms: have improved cp Bed/Room Type: Standard cp Provider: Leo Garcia(08/25/21 18:08) rk Room Assignment: [facility](08/25/21 19:38) Diagnosis - Diverticulitis of large intestine without perforation or abscess without bleeding cp Forms: - Medication Reconciliation Form cp - SBAR form cp Signatures: Dispatcher [employer] EDMS Ghazal Yun RN RN mw Attema, Lee, LEAD APPLIER-C LEAD APPLIER-Cla1 Hao Topete PA PA cp Baxter, Heather, RN RN Seth Pruitt RN Santos Davis DO DO ms3 Sheeba Caballero RN RN bm7 Rios Agudelo RN as6 Corrections: (The following items were deleted from the chart) 13:35 13:31 Immunization history: Client reports receiving the 2nd dose of the Covid vaccine, hb hb 18:08 17:22 Tito Paul cp la1 19:38 17:22 cp mw 08/26 15:00 08/25 13:50 Constitutional: Negative for fever, cp cp
[2021-08-25] MEDS ORDERED: METRONIDAZOLE 500mg IVPB 500 MG/100 ML BAG IV ONE (17:38)
[2021-08-25] MEDS ORDERED: CIPROFLOXACIN 400mg IV 400 MG/200 ML BAG IV ONE (17:38)
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
[2021-08-25] MEDS ORDERED: MORPHINE 2 MG/ML SYR IV PRN (20:23)
[2021-08-25] MEDS ORDERED: ONDANSETRON 4 MG/2 ML VIAL IV PRN (20:23)
[2021-08-25] MEDS: HYDRALAZINE HCL 25 MG TABLET PO SCH (21:17)
[2021-08-25] MEDS: NA CHLORIDE 0.9% 1,000 ML IV SCH (21:23)
[2021-08-25 21:50] VITALS: BMI 23.5
[2021-08-25 22:24] LABS: Urine Bacteria <20 /HPF (<20)
[2021-08-26] MEDS: METRONIDAZOLE 500mg IVPB 500 MG/100 ML BAG IV SCH ×3 (00:06→17:43)
[2021-08-26 05:14] LABS: Albumin 3.2 g/dL (3.4-5.0); Bilirubin Total 1.7 mg/dL (0.2-1.0); Potassium 3.4 mmol/L (3.5-5.1); Protein, Total 6.2 g/dL (6.4-8.2)
[2021-08-26 05:15] LABS: Absolute Lymphocytes (CBC) 0.8 K/uL (0.7-4.9); Hematocrit 34.4 % (36.0-45.0); MCV 92.1 fL (80-100); MPV 8.7 fL (7.6-11.3); RBC Red Blood Cell Count 3.74 M/uL (3.86-4.86)
--- NOTE | 2021-08-26 07:23 | EKG ---
Test Date: 2021-08-25 Test Time: 14:25:07 Internal Affairs Commander: LESLY MEASUREMENT RESULTS: Intervals: Rate: 78 MD: 344 QRSD: 70 QT: 384 QTc: 437 [place]: P: 83 MD: 344 QRS: -60 T: 45 INTERPRETIVE STATEMENTS: Sinus rhythm with 1st degree AV block Left axis deviation Anteroseptal infarct, age undetermined Abnormal ECG Compared to ECG 08/19/2021 18:21:17 First degree AV block now present Left-axis deviation now present Sinus tachycardia no longer present Myocardial infarct finding still present Electronically Signed On 08-26-21 07:20:38 CDT by Bryon Dsouza
[2021-08-26] MEDS: APIXABAN 5 MG TABLET PO SCH ×2 (09:00→09:51)
[2021-08-26] MEDS: NA CHLORIDE 0.9% 1,000 ML IV SCH (09:43)
[2021-08-26] MEDS: KCL 20 MEQ/100 mL IVPB 20 MEQ/100 ML BAG IV SCH ×2 (09:47→12:18)
[2021-08-26] MEDS: CIPROFLOXACIN 400mg IV 400 MG/200 ML BAG IV SCH ×2 (09:50→22:29)
[2021-08-26] MEDS: HYDRALAZINE HCL 25 MG TABLET PO SCH ×2 (09:50→21:00)
[2021-08-26] MEDS: ENOXAPARIN 60 MG/0.6 ML SQ SCH ×2 (12:13→22:29)
--- NOTE | 2021-08-26 15:17 | P.CNS ---
Date of Consult: 08/26/21 PC: This 86-year-old female presented to the emergency room with severe abdominal pain for diagnosis and treatment. HPC: Patient apparently recent was in the hospital. Had a cardiac procedure done. She was placed on some Eliquis. She started to have some nausea and vomiting and abdominal pain. She attributed to this medication, but came to the emergency room for evaluation and treatment. On work-up was found to have acute diverticulitis. PSHx: Has had colonoscopy about 12 years ago. PMHx: Coronary artery disease Social Hx: States she is allergic to fentanyl codeine hydrocodone Demerol Sys R: No cough, wheeze, shortness of breath. States she has not had pain like this in the past. Denies any urinary complaints. O/E: Awake alert vital signs are stable, comfortable sitting up chatting HEENT: Nonicteric Chest: Chest movement equal bilaterally Abd: Has some mild lower abdominal tenderness, no true guarding, no masses palpable. Crawford: Intact Data: White cell count 9.8, CT scan suggests acute diverticulitis with some inflammation and congestion, no abscess seen Impression: Acute diverticulitis Plan: Patient is on low residue diet at the moment, is receiving IV antibiotics. Patient is already improved since her initial admission. I imagine this will resolve without any requirements for surgery. We will follow along with you.
--- NOTE | 2021-08-26 18:06 | P.PN ---
Subjective Date of Service: 08/26/21 Chief Complaint: Diverticulitis Subjective: Improving No acute events since admission. She reports that her abdominal pain is still present, but has improved since admission. She denies nausea/vomiting. Review of Systems 10-point ROS is otherwise unremarkable Gastrointestinal: Nausea, Abdominal Pain Physical Examination - Vital Signs Temperature: 98.4 F Blood Pressure: 145/65 Pulse: 85 Respirations: 16 Pulse Ox (%): 91 - Physical Exam General: Alert, In no apparent distress, Oriented x3 HEENT: Atraumatic, Mucous membr. moist/pink, EOMI, Sclerae nonicteric Neck: Supple, JVD not distended Respiratory: Clear to auscultation bilaterally, Normal air movement Cardiovascular: Regular rate/rhythm, Normal S1 S2, No gallops, No rubs, No murmurs Gastrointestinal: Normal bowel sounds, Non-distended, No rebound, No guarding, Tenderness (LLQ) Musculoskeletal: No tenderness Integumentary: No rashes Neurological: Normal speech, Normal affect - Studies Microbiology Data (last 24 hrs): 08/25/21 14:55 Nasopharnyx Influenza Type A Antigen Screen - Final 08/25/21 14:55 Nasopharnyx Influenza Type B Antigen Screen - Final Medications List Reviewed: Yes Assessment And Plan - Plan # Acute Uncomplicated Sigmoid Diverticulitis - General Surgery consulted - recommendations appreciated - CT abdomen/pelvis = "1. No aortic aneurysm, dissection, or pulmonary embolus identified. 2. Interval development of non perforated sigmoid diverticulitis." - Continue ciprofloxacin + metronidazole - NPO - advance diet as tolerated - Lactated Ringers' at 75 mL/hr - Symptomatic treatment with PRN morphine, ondansetron # Chronic Atrial Fibrillation # History of Coronary Artery Disease # History of Prior Cerebrovascular Accident - Switch apixaban to enoxaparin while hospitalized in case surgery is required - Continue atorvastatin # Chronic Compensated Diastolic Congestive Heart Failure - No evidence of acute CHF exacerbation - Resume home medications once able to tolerate PO # Hypertension - Continue hydralazine # Small Pulmonary Nodules - Noted on chest x-ray - Follow-up with PCP for further evaluation Leo Garcia MD Discharge Plan: Home Plan to discharge in: 48 Hours - Code Status/Comfort Care Code Status Assessed: Yes Code Status: Do Not Attempt Resuscitat
[2021-08-26] MEDS: ATORVASTATIN 10 MG TAB PO SCH (21:00)
[2021-08-26] MEDS: Ringers Lactate 1,000 ML IV SCH (22:28)
[2021-08-26 23:00] VITALS: O2SAT 93
[2021-08-27] MEDS: METRONIDAZOLE 500mg IVPB 500 MG/100 ML BAG IV SCH ×3 (01:08→17:06)
[2021-08-27 06:18] LABS: Absolute Lymphocytes (CBC) 0.9 K/uL (0.7-4.9); Hematocrit 32.8 % (36.0-45.0); Lymphocytes % 15.9 % (15.3-44.8); MCV 92.5 fL (80-100); MPV 8.8 fL (7.6-11.3); RBC Red Blood Cell Count 3.55 M/uL (3.86-4.86)
[2021-08-27 06:36] LABS: Albumin 2.9 g/dL (3.4-5.0); Bilirubin Total 1.2 mg/dL (0.2-1.0); Protein, Total 5.7 g/dL (6.4-8.2)
[2021-08-27] MEDS: CIPROFLOXACIN 400mg IV 400 MG/200 ML BAG IV SCH ×2 (09:00→16:20)
[2021-08-27] MEDS: HYDRALAZINE HCL 25 MG TABLET PO SCH ×2 (09:00→21:00)
[2021-08-27] MEDS: ENOXAPARIN 60 MG/0.6 ML SQ SCH ×2 (10:36→22:56)
[2021-08-27 12:50] LABS: Hematocrit 33.4 % (36.0-45.0)
--- NOTE | 2021-08-27 14:53 | P.PN ---
Date of Service: 08/27/21 S: No specific complaints, abdomen feels somewhat better today. O: Abdomen soft, no guarding or rebound A: Abdominal pain appears to be resolving P: Patient is doing well with appearing resolution of her abdominal pain. Recommend diet be advanced as tolerated. Discussed with her possible need for colonoscopy as outpatient. She will not require surgical intervention during his stay and I will sign off the case. Please consult if needed.
[2021-08-27] MEDS: Ringers Lactate 1,000 ML IV SCH (16:20)
--- NOTE | 2021-08-27 19:44 | P.PN ---
Subjective Date of Service: 08/27/21 Chief Complaint: Diverticulitis She reports that her abdominal pain is gradually improving, now reporting a 2- 3/10 in severity. She has had some bloody bowel movements overnight. She is hungry and willing to try a diet today. She denies nausea/vomiting. Review of Systems 10-point ROS is otherwise unremarkable Gastrointestinal: Abdominal Pain, Hematochezia Physical Examination - Vital Signs Temperature: 97.8 F Blood Pressure: 141/62 Pulse: 63 Respirations: 14 Pulse Ox (%): 94 - Studies Medications List Reviewed: Yes Assessment And Plan - Plan - Physical Exam General: Alert, In no apparent distress, Oriented x3 HEENT: Atraumatic, Mucous membr. moist/pink, EOMI, Sclerae nonicteric Neck: Supple, JVD not distended Respiratory: Clear to auscultation bilaterally, Normal air movement Cardiovascular: Regular rate/rhythm, Normal S1 S2, No gallops, No rubs, No murmurs Gastrointestinal: Normal bowel sounds, Non-distended, No rebound, No guarding, Tenderness (mild, LLQ) Musculoskeletal: No tenderness Integumentary: No rashes Neurological: Normal speech, Normal affect ASSESSMENT/PLAN: # Acute Uncomplicated Sigmoid Diverticulitis - General Surgery consulted - recommendations appreciated - CT abdomen/pelvis = "1. No aortic aneurysm, dissection, or pulmonary embolus identified. 2. Interval development of non perforated sigmoid diverticulitis." - Continue ciprofloxacin + metronidazole - Start on Clear Liquid Diet - advance diet as tolerated - Lactated Ringers' at 75 mL/hr - Symptomatic treatment with PRN morphine, ondansetron - Hgb stable. Suspect hematochezia to be self-limiting, but will trend q6 H&H and obtain type & screen - If severe bleeding, will require transfer for Gastroenterology consultation # Chronic Atrial Fibrillation # History of Coronary Artery Disease # History of Prior Cerebrovascular Accident - Switch apixaban to enoxaparin while hospitalized in case surgery is required - Continue atorvastatin # Chronic Compensated Diastolic Congestive Heart Failure - No evidence of acute CHF exacerbation - Resume home medications once able to tolerate PO # Hypertension - Continue hydralazine # Small Pulmonary Nodules - Noted on chest x-ray - Follow-up with PCP for further evaluation # Microscopic Hematuria - Noted on UA - Follow-up with PCP for further evaluation Leo Garcia MD Discharge Plan: Home Plan to discharge in: 48 Hours Physician Review: Patient Assessed, Agree with Above Assessment and Plan Critical Care: No
[2021-08-27] MEDS: ATORVASTATIN 10 MG TAB PO SCH (21:00)
[2021-08-28] MEDS: METRONIDAZOLE 500mg IVPB 500 MG/100 ML BAG IV SCH ×3 (00:30→16:20)
[2021-08-28] MEDS: Ringers Lactate 1,000 ML IV SCH (05:04)
[2021-08-28 06:05] LABS: Absolute Lymphocytes (CBC) 0.8 K/uL (0.7-4.9); Hematocrit 29.2 % (36.0-45.0); Lymphocytes % 21.4 % (15.3-44.8); MCV 91.3 fL (80-100); MPV 8.2 fL (7.6-11.3)
[2021-08-28 06:19] LABS: Albumin 2.8 g/dL (3.4-5.0); Bilirubin Total 0.7 mg/dL (0.2-1.0); Potassium 3.8 mmol/L (3.5-5.1); Protein, Total 5.5 g/dL (6.4-8.2)
[2021-08-28] MEDS ORDERED: POTASSIUM CL SA 10 MEQ TAB PO ONE (07:29)
[2021-08-28] MEDS: CIPROFLOXACIN 400mg IV 400 MG/200 ML BAG IV SCH ×2 (09:16→21:10)
[2021-08-28] MEDS: HYDRALAZINE HCL 25 MG TABLET PO SCH ×2 (09:17→21:10)
[2021-08-28] MEDS: ENOXAPARIN 60 MG/0.6 ML SQ SCH (09:18)
[2021-08-28 12:03] LABS: C.diff Antigen/Toxin Ag neg : Tox neg (NEG : NEG)
--- NOTE | 2021-08-28 15:02 | RAD REPORT ---
EXAM DESCRIPTION: CT - Abdomen Pelvis Wo Contrast - 08/28/2021 2:49 pm CLINICAL HISTORY: Abdominal pain. diverticulitis COMPARISON: Abdomen Pelvis W Contrast dated 12/21/2018; Angio Aorta For Dissection dated 2 TECHNIQUE: CT imaging of the abdomen and pelvis was performed without contrast. Solid organ and vasc ular assessment is limited due to lack of IV contrast. All CT scans are performed using dose optimization technique as appropriate and may include automated exposure control or mA/KV adjustment according to patient size. FINDINGS: Minimal tree-in-bud opacities are seen in both lung bases. The liver, spleen, pancreas, adrenal glands and kidneys are within normal limits for a limited non-co ntrast examination. No bowel obstruction, free air, free fluid or abscess. 6 cm length of sigmoid colon in the left lower quadrant demonstrates mild wall thickening and surrounding inflammation suggesting diverticulitis. T he appendix is normal. No peridiverticular abscess. The osseous structures are within normal limits. IMPRESSION: Mild acute diverticulitis of the sigmoid colon. No abscess is seen. Followup colonoscopy after appropriate therapy would be suggested. A limited non-contrast examination was performed as detailed.
[2021-08-28] MEDS ORDERED: LOPERAMIDE HCL 2 MG CAPSULE PO ONE (16:09)
--- NOTE | 2021-08-28 19:27 | P.PN ---
Subjective Date of Service: 08/28/21 Chief Complaint: Diverticulitis Overnight, she continued to have multiple bouts of diarrhea with hematochezia. She continues to have abdominal pain, grading it a 4/10 in severity this morning. She was able to tolerate a clear liquid diet and denies nausea/vomiting. Review of Systems 10-point ROS is otherwise unremarkable Gastrointestinal: Abdominal Pain, Diarrhea, Hematochezia Physical Examination - Vital Signs Temperature: 98.0 F Blood Pressure: 176/71 Pulse: 59 Respirations: 14 Pulse Ox (%): 95 - Studies Medications List Reviewed: Yes Assessment And Plan - Plan - Physical Exam General: Alert, In no apparent distress, Oriented x3 HEENT: Atraumatic, Mucous membr. moist/pink, EOMI, Sclerae nonicteric Neck: Supple, JVD not distended Respiratory: Clear to auscultation bilaterally, Normal air movement Cardiovascular: Regular rate/rhythm, Normal S1 S2, No gallops, No rubs, No murmurs Gastrointestinal: Normal bowel sounds, Non-distended, No rebound, No guarding, Tenderness (mild, LLQ) Musculoskeletal: No tenderness Integumentary: No rashes Neurological: Normal speech, Normal affect ASSESSMENT/PLAN: # Acute Uncomplicated Sigmoid Diverticulitis - General Surgery consulted - recommendations appreciated - CT abdomen/pelvis = "1. No aortic aneurysm, dissection, or pulmonary embolus identified. 2. Interval development of non perforated sigmoid diverticulitis." - Continue ciprofloxacin + metronidazole - Tolerated clear liquid diet - advance diet as tolerated - Lactated Ringers' at 75 mL/hr - Symptomatic treatment with PRN morphine, ondansetron - Clostridium Difficile stool toxin = negative - Hgb stable, but gradually down-trending. Suspect hematochezia to be self- limiting, will continue to trend H&H - Will hold enoxaparin for now and monitor closely - If severe bleeding, will require transfer for Gastroenterology consultation # Chronic Atrial Fibrillation # History of Coronary Artery Disease # History of Prior Cerebrovascular Accident - Hold enoxaparin for now given hematochezia - Continue atorvastatin # Chronic Compensated Diastolic Congestive Heart Failure - No evidence of acute CHF exacerbation - Resume home medications once able to tolerate PO # Hypertension - Continue hydralazine # Small Pulmonary Nodules - Noted on chest x-ray - Follow-up with PCP for further evaluation # Microscopic Hematuria - Noted on UA - Follow-up with PCP for further evaluation Leo Garcia MD Physician Review: Patient Assessed, Agree with Above Assessment and Plan
[2021-08-28 20:24] LABS: Hematocrit 32.4 % (36.0-45.0)
[2021-08-28] MEDS: ENSURE CLEAR 200 ML CAN PO SCH (21:00)
[2021-08-28] MEDS ORDERED: LOPERAMIDE HCL 2 MG CAPSULE PO STA (21:07)
[2021-08-28] MEDS: ATORVASTATIN 10 MG TAB PO SCH (21:10)
[2021-08-29] MEDS: METRONIDAZOLE 500mg IVPB 500 MG/100 ML BAG IV SCH ×3 (00:06→17:51)
[2021-08-29] MEDS: Ringers Lactate 1,000 ML IV SCH ×3 (00:06→15:10)
[2021-08-29 07:04] LABS: Hematocrit 30.6 % (36.0-45.0); MCV 92.1 fL (80-100); MPV 8.4 fL (7.6-11.3); RBC Red Blood Cell Count 3.32 M/uL (3.86-4.86)
[2021-08-29 07:15] LABS: Magnesium 1.8 mg/dL (1.8-2.4); Phosphorus 2.3 mg/dL (2.5-4.9); Potassium 3.9 mmol/L (3.5-5.1)
[2021-08-29] MEDS: CIPROFLOXACIN 400mg IV 400 MG/200 ML BAG IV SCH ×2 (08:16→20:52)
[2021-08-29] MEDS: HYDRALAZINE HCL 25 MG TABLET PO SCH ×2 (08:16→20:49)
[2021-08-29] MEDS: ENSURE CLEAR 200 ML CAN PO SCH ×2 (08:17→20:52)
--- NOTE | 2021-08-29 19:29 | P.PN ---
Subjective Date of Service: 08/29/21 Chief Complaint: Diverticulitis Subjective: Improving Overnight, she states that her diarrhea has subsided and she is no longer having hematochezia. Her abdominal pain has now also improved, now grading it a 2/10 in severity this morning. She was able to tolerate a clear liquid diet and denies nausea/vomiting. Review of Systems 10-point ROS is otherwise unremarkable Gastrointestinal: Abdominal Pain, Diarrhea Physical Examination - Vital Signs Temperature: 97.6 F Blood Pressure: 142/62 Pulse: 62 Respirations: 16 Pulse Ox (%): 97 - Studies Medications List Reviewed: Yes Assessment And Plan - Plan - Physical Exam General: Alert, In no apparent distress, Oriented x3 HEENT: Atraumatic, Mucous membr. moist/pink, EOMI, Sclerae nonicteric Neck: Supple, JVD not distended Respiratory: Clear to auscultation bilaterally, Normal air movement Cardiovascular: Regular rate/rhythm, Normal S1 S2, No gallops, No rubs, No murmurs Gastrointestinal: Normal bowel sounds, Non-distended, No rebound, No guarding, Tenderness (mild, LLQ) Musculoskeletal: No tenderness Integumentary: No rashes Neurological: Normal speech, Normal affect ASSESSMENT/PLAN: # Acute Uncomplicated Sigmoid Diverticulitis - General Surgery consulted - recommendations appreciated - CT abdomen/pelvis = "1. No aortic aneurysm, dissection, or pulmonary embolus identified. 2. Interval development of non perforated sigmoid diverticulitis." - Continue ciprofloxacin + metronidazole - Tolerated clear liquid diet - advance diet as tolerated - Lactated Ringers' at 75 mL/hr - Symptomatic treatment with PRN morphine, ondansetron - Clostridium Difficile stool toxin = negative - Hematochezia has now completely resolved - last bloody BM about 24 hours ago - Held enoxaparin this morning, will resume tonight - If severe bleeding, will require transfer for Gastroenterology consultation # Chronic Atrial Fibrillation # History of Coronary Artery Disease # History of Prior Cerebrovascular Accident - Held enoxaparin this morning, will resume tonight - Continue atorvastatin # Chronic Compensated Diastolic Congestive Heart Failure - No evidence of acute CHF exacerbation - Resume home medications once able to tolerate PO # Hypertension - Continue hydralazine # Small Pulmonary Nodules - Noted on chest x-ray - Follow-up with PCP for further evaluation # Microscopic Hematuria - Noted on UA - Follow-up with PCP for further evaluation Leo Garcia MD Physician Review: Patient Assessed, Agree with Above Assessment and Plan
[2021-08-29] MEDS: ATORVASTATIN 10 MG TAB PO SCH (20:49)
[2021-08-29] MEDS ORDERED: ENOXAPARIN 60 MG/0.6 ML SQ SCH (21:00)
[2021-08-30] MEDS: METRONIDAZOLE 500mg IVPB 500 MG/100 ML BAG IV SCH ×2 (01:00→09:00)
[2021-08-30 04:33] LABS: Hematocrit 30.8 % (36.0-45.0); MCV 91.5 fL (80-100); MPV 8.1 fL (7.6-11.3); RBC Red Blood Cell Count 3.36 M/uL (3.86-4.86)
[2021-08-30 04:51] LABS: Magnesium 1.6 mg/dL (1.8-2.4); Phosphorus 2.2 mg/dL (2.5-4.9); Potassium 3.5 mmol/L (3.5-5.1)
[2021-08-30] MEDS: Ringers Lactate 1,000 ML IV SCH (05:19)
[2021-08-30] MEDS ORDERED: POTASSIUM CL SA 10 MEQ TAB PO ONE ×2 (06:44→09:00)
--- NOTE | 2021-08-30 08:05 | P.DS ---
Admission Date: 08/25/21 Discharge Date: 08/30/21 Disposition: ROUTINE DISCHARGE Discharge Condition: GOOD Reason for Admission: Diverticulitis Consultations: 1. General Surgery Hospital Course: DIAGNOSES: # Acute Uncomplicated Sigmoid Diverticulitis # Chronic Atrial Fibrillation # History of Coronary Artery Disease # History of Prior Cerebrovascular Accident # Chronic Compensated Diastolic Congestive Heart Failure # Hypertension # Small Pulmonary Nodules # Microscopic Hematuria HOSPITAL COURSE: Ms. Madiha Breaux is a pleasant 86 year old female with a past medical history significant for chronic atrial fibrillation, coronary artery disease, chronic diastolic congestive heart failure, and hypertension who was admitted to the [facility] on 08/25/2021 for abdominal pain. Upon further evaluation, her vital signs were stable. Her laboratory studies were also fairly stable. A CT abdomen/pelvis revealed, "Interval development of non perforated sigmoid diverticulitis." She was admitted for acute uncomplicated sigmoid diverticulitis and General Surgery was consulted. Dr. Busch evaluated her and felt that she could be managed medically. She was placed NPO and started on intravenous ciprofloxacin and metronidazole. Gradually, her symptoms improved and she was advanced to a regular diet without any abdominal pain, nausea, or vomiting. She was educated on a diverticulosis (lowfiber) diet and provided informational worksheets regarding optimal diets for her condition. Of note, I had a detailed discussion with both her and her daughter stating that, in some cases, an episode of diverticulitis can be the preceding event for underlying colonic malignancy. I advised that they follow-up with [facility] to have a colonoscopy in 4-6 weeks for further evaluation. They verbalized understanding and agreed to make this appointment. I have also advised them about her microscopic hematuria and pulmonary nodules, which need to be followed-up by her PCP. On 08/30/2021, she was seen on morning rounds and deemed medically stable for discharge. She was discharged with instructions to schedule follow-up appointments with her PCP (Dr. Onofre) in 3-5 days and with Gastroenterology (Dr. Alcocer) in 2-3 weeks to schedule a colonoscopy in 4-6 weeks. She was provided prescriptions for ciprofloxacin and metronidazole. She and her daughter were given the opportunity to ask questions and reported no further questions. Furthermore, all questions were answered to the best of my ability. Today, I personally spent 35 minutes on her case, of which greater than 50% of the time was spent in patient education, counseling, and coordination of care as described above. - Physical Exam General: Alert, In no apparent distress, Oriented x3 HEENT: Atraumatic, Mucous membr. moist/pink, EOMI, Sclerae nonicteric Neck: Supple, JVD not distended Respiratory: Clear to auscultation bilaterally, Normal air movement Cardiovascular: Regular rate/rhythm, Normal S1 S2, No gallops, No rubs, No murmurs Gastrointestinal: Normal bowel sounds, Non-distended, No rebound, No guarding, Tenderness (mild, LLQ) Musculoskeletal: No tenderness Integumentary: No rashes Neurological: Normal speech, Normal affect Vital Signs/Physical Exam: Temp Pulse Resp BP Pulse Ox 97.4 F 64 19 120/58 L 92 08/30/21 04:00 08/30/21 04:00 08/30/21 04:00 08/30/21 04:00 08/30/21 04:00 Laboratory Data at Discharge: WBC 4.0 K/uL (4.3-10.9) L D 08/30/21 04:02 Hgb 10.9 g/dL (12.0-15.0) L 08/30/21 04:02 Hct 30.8 % (36.0-45.0) L 08/30/21 04:02 Plt Count 217 K/uL (152-406) 08/30/21 04:02 PT 16.9 SECONDS (9.5-12.5) H 08/25/21 14:45 INR 1.52 08/25/21 14:45 Sodium 142 mmol/L (136-145) 08/30/21 04:02 Potassium 3.5 mmol/L (3.5-5.1) 08/30/21 04:02 BUN 4 mg/dL (7-18) L 08/30/21 04:02 Creatinine 0.92 mg/dL (0.55-1.3) 08/30/21 04:02 Glucose 96 mg/dL (74-106) 08/30/21 04:02 Phosphorus 2.2 mg/dL (2.5-4.9) L 08/30/21 04:02 Magnesium 1.6 mg/dL (1.8-2.4) L 08/30/21 04:02 Total Bilirubin 0.7 mg/dL (0.2-1.0) 08/28/21 05:26 AST 13 U/L (15-37) L 08/28/21 05:26 ALT 12 U/L (12-78) 08/28/21 05:26 Alkaline Phosphatase 61 U/L (45-117) 08/28/21 05:26 Home Medications: Aspirin Chewable [Aspirin Chewable*] 81 mg PO DAILY 08/19/21 Atorvastatin Calcium [Lipitor*] 10 mg PO BEDTIME 08/19/21 Hydralazine [Apresoline*] 25 mg PO BID 08/19/21 Apixaban [Eliquis] 5 mg PO BID #60 tablet 08/21/21 Budesonide/Formoterol Fumarate [Symbicort 80-4.5 Mcg Inhaler] 2 puff IH Q4HP PRN 08/25/21 Ciprofloxacin HCl [Cipro 500 MG Tablet] 500 mg PO BID #20 tab 08/30/21 metroNIDAZOLE [Flagyl*] 500 mg PO Q8H #30 tablet 08/30/21 New Medications: Ciprofloxacin HCl [Cipro 500 MG Tablet] 500 mg PO BID #20 tab metroNIDAZOLE [Flagyl*] 500 mg PO Q8H #30 tablet Physician Discharge Instructions: 1. Please schedule a follow-up appointment with your PCP (Dr. Onofre) in 3-5 days for a post-hospital visit and to discuss small amount of blood in urine 2. Please schedule a follow-up appointment with Gastroenterology (Dr. Alcocer) in 2-3 weeks to schedule a colonoscopy in 4-6 weeks Diet: Regular (Diverticulosis diet) Activity: Ad angle Followup: Luiz Alcocer MD [ASSOCIATE-ACTIVE - CAN ADMIT] - Deirdre Onofre MD [Primary Care Provider] - Time spent managing pt's care (in minutes): 35
[2021-08-30] MEDS: HYDRALAZINE HCL 25 MG TABLET PO SCH (09:00)
[2021-08-30] MEDS ORDERED: APIXABAN 5 MG TABLET PO SCH (09:00)
[2021-08-30] MEDS: ENSURE CLEAR 200 ML CAN PO SCH (09:00)
[2021-08-30] MEDS ORDERED: MAGNESIUM SULFATE 1 gm IVPB 1 GM/100 ML BAG IV ONE (09:00)
[2021-08-30] MEDS: CIPROFLOXACIN 400mg IV 400 MG/200 ML BAG IV SCH (09:00)
[2021-08-30 12:09] VITALS: BP 164/70; TEMP 97.7
== END 2021-08-30 13:03 | disposition home or self-care (01) | DRG 378 ==
LOC: ER 13:13 → ERHOLD 19:32 → 2ND 20:00
PROVIDERS: ADMIT Internal Medicine; ATTEND Internal Medicine
DX: K57.33 Diverticulitis of large intestine without perforation or abscess with bleeding (principal); I50.32 Chronic diastolic (congestive) heart failure; I48.20 Chronic atrial fibrillation, unspecified; I11.0 Hypertensive heart disease with heart failure; I25.10 Atherosclerotic heart disease of native coronary artery without angina pectoris; R31.29 Other microscopic hematuria; R91.8 Other nonspecific abnormal finding of lung field; G47.33 Obstructive sleep apnea (adult) (pediatric); J44.9 Chronic obstructive pulmonary disease, unspecified; E78.5 Hyperlipidemia, unspecified; I25.2 Old myocardial infarction; Z88.2 Allergy status to sulfonamides; Z79.01 Long term (current) use of anticoagulants; Z88.0 Allergy status to penicillin; Z79.82 Long term (current) use of aspirin; Z86.73 Personal history of transient ischemic attack (TIA), and cerebral infarction without residual deficits; Z20.822 Contact with and (suspected) exposure to COVID-19
CPT/HCPCS: 36415; 71045; 71275; 74175; 74176; 80048; 80053; 80076; 81015; 82550; 83605; 83735; 83880; 84100; 84145; 84484; 85014; 85018; 85025; 85027; 85610; 86850; 86900; 86901; 87040; 87086; 87088; 87324; 87804; 93005; 96365; 96366; 96367; 96375; 99285; J0744; J1650; J2270; J2405; J3475; J3480; J7030; J7050; J7120; Q9967; U0003

== ENCOUNTER 2021-10-19 11:51 | Emergency (ER) | payer OTHER ==
--- OUTSIDE RECORDS SUMMARY | 2021-10-19 11:56 | XMS REPORT | Continuity of Care Document ---
:1935 Author Organization [facility] t Address [address] [place] [address] Care Team Providers Name Role Phone DENNIS HARRIS Primary Care Physician Unavailable MICHA LYNNE Attending Clinician Unavailable MICHA LYNNE Attending Clinician Unavailable Katya Baum RN Attending Clinician Unavailable Brittanie Sepulveda Attending Clinician Padma Abraham MD Attending Clinician MAO Attending Clinician Unavailable Padma Abraham MD Admitting Clinician MAO Admitting Clinician Unavailable Payers Payer Name Policy Type Policy Number Effective Date Expiration Date Sagar castellano DAWSON/YEMI [id number] 2021 MEDICARE ADVANTAGE 00:00:00 Problems Condition Condition Condition Status Onset Resolution Last Treating Co mments Source Name Details Category Date Date Treatment Clinician Date Rectal Rectal Disease Active Univers bleeding bleeding 10-02 ity of 00:00: [place] 00 Medical Branch Allergies, Adverse Reactions, Alerts Allergy Allergy Status Severity Reaction(s) Onset Inactive Treating Comm ents Source Name Type Date Date Clinician PORK DRUG Active Hives Univers DERIVED INGREDI 10-03 ity of (PORCINE 00:00: [place] ) 00 Medical Branch Pork Propensi Active Hives Eating Univers Derived ty to 10-03 pork gave ity of (Porcine adverse 00:00: [place] ) reaction 00 as a Medical s child Branch HYDROCOD DRUG Active N/V Univers ONE INGREDI 10-02 ity of 00:00: [place] 00 Medical Branch FENTANYL DRUG Active Other-Cmnt Univ ers INGREDI 10-02 ity of 00:00: [place] 00 Medical Branch Codeine Propensi Active Nausea Univers ty to and/or 10-02 ity of adverse Vomiting 00:00: [place] reaction 00 Medical s Branch Meperidi Propensi Active Nausea Univer s ne ty to and/or 10-02 ity of adverse Vomiting 00:00: [place] reaction 00 Medical s Branch Fentanyl Propensi Active Other - See "Put me Univers ty to comments 10-02 in a ity of adverse 00:00: coma" [place] reaction 00 Medical s Branch Hydrocod Propensi Active Nausea Univer s one ty to and/or 10-02 ity of adverse Vomiting 00:00: [place] reaction 00 Medical s Branch Penicill Propensi Active Hives Univer s ins ty to 10-02 ity of adverse 00:00: [place] reaction 00 Medical s Branch Sulfa Propensi Active Other - See Lethargy, Univers (Sulfona ty to comments 10-02 "They ity of mide adverse 00:00: can't [place] Antibiot reaction 00 wake me Medic al ics) s up" Branch MEPERIDI DRUG Active N/V Univers NE INGREDI 10-02 ity of 00:00: [place] 00 Medical Branch PENICILL Drug Active Hives Univers INS Class - ity of 00:00: [place] 00 Medical Branch SULFA Drug Active Other-Cmnt Univer s (SULFONA Class - ity of MIDE 00:00: [place] ANTIBIOT 00 Medical ICS) Branch CODEINE DRUG Active N/V Univers INGREDI 8- ity of 00:00: [place] 00 Medical Branch NO KNOWN Drug Active Univers ALLERGIE Class ity of S [facility] Social History Social Habit Start Date Stop Date Quantity Comments Source History of Cigarette Smoker Universi ty of tobacco use [facility] Exposure to 2021-10-05 2021-10-15 Yes University of SARS-CoV-2 00:00:00 19:48:00 [facility] (event) Branch History SDOH Food 2021-10-06 2021-10-06 1 Univers ity of Worry 00:00:00 00:00:00 [place] [facility] History SDOH Food 2021-10-06 2021-10-06 1 Univers ity of Scarcity 00:00:00 00:00:00 [place] [facility] History SDOH 2021-10-06 2021-10-06 2 University o f Transport Med 00:00:00 00:00:00 [place] Medic al Branch History SDOH 2021-10-06 2021-10-06 2 University o f Transport Non-Med 00:00:00 00:00:00 [facility] edical Branch Tobacco use and 2021-10-02 2021-10-02 Smokeless tobacco Un iversity of exposure 00:00:00 00:00:00 non-user [facility] Alcohol intake 2021-10-02 2021-10-02 Ex-drinker [facility] 00:00:00 00:00:00 (finding) [facility] Sex Ass[birth year] At [birth year] Universit y of 00:00:00 00:00:00 [facility] Smoking Status Start Date Stop Date Source Ex-smoker 2021-10-02 00:00:00 2021-10-02 00:00:00 Universi ty [facility] [place] Medications Ordered Filled Start Stop Current Ordering Indication Dosage Frequency Signature Comments Components Source Medication Medication Date Date Medication? Clinician (SIG) Name Name methylpredn 2021- No 125mg 125 mg, U nivers isolone sod 10-16 Intravenou i ty of succ 02:47: 02:51 s, ONCE, 1 [place] (SOLU-MEDRO 00 :00 dose, On Medi carlyle L) [facility] 10/15/21 Branch injection at 2200, 2 125 mg mL acetaminoph 2021- No 1000mg 1,000 mg, Univers en 10-16 Oral, ONCE ity of (TYLENOL) 01:46: 02:07 NOW, 1 [place] tablet 00 :00 dose, On Medical 1,000 mg Dora 10/15/21 Branc h at 2100, Routine albuterol 2021- No 2{puff} 2 Puff, U nivers (VENTOLIN) 10-16 Inhalation it y of inhaler 2 01:45: 02:18 , ONCE, 1 [place] Puff 00 :00 dose, On Medical Dora 10/15/21 Branch at 2100, HIEU NaCl 0.9% 2021- No 500mL at 999 Univ ers (NS) bolus 10-16 mL/hr, 500 it y of infusion 01:45: 02:53 mL, IV [place] 500 mL 00 :00 Infusion, Medical ONCE, 1 Branch dose, On Dora 10/15/21 at 2045, HIEU nirmatrelvi 2021- Yes [id number] 2{tbl} Take 2 Univers r-ritonavir 10-1514 tablets by i ty of (PAXLOVID, 00:00: 04:59 mouth in [place] EUA,) 00 :00 the Medical 150-100 mg morning Branch tablet and 2 tablets in the evening. Do all this for 5 days. bebtelovima 2021- Yes [id number] 175mg Inject 2 Univers b, No 10-15 mL as ity of Charge, 175 00:00: 04:59 directed [place] mg/2 mL 00 :00 once now Medical (87.5 for 1 Branch mg/mL) Soln dose. atorvastati Yes 10mg Take 10 mg Univers n (LIPITOR) 8-29 by mouth ity of 10 mg 17:52: at [facility] 08 bedtime. Medical Branch zolpidem Yes 5mg Take 5 mg Univ ers (AMBIEN) 5 8-29 by mouth ity o f mg tablet 17:52: at [place] [address] bedtime. Medical Branch brexpiprazo Yes 1mg Take 1 mg U nivers le 8-29 by mouth ity of (REXULTI) 1 17:52: [place]. [place] mg Tab 08 Medical Branch hydrALAZINE Yes 25mg Take 25 mg Univers 25 mg 8-29 by mouth ity of tablet 17:52: in the [place] [address] morning Medical and 25 mg Branch in the evening. FLUoxetine Yes 10mg Take 10 mg U nivers 10 mg 8-29 by mouth ity of capsule 17:52: in the [place] [address] morning. Medical Branch atorvastati Yes 10mg Take 10 mg Univers n (LIPITOR) 8-29 by mouth ity of 10 mg 17:52: at [place] tablet 08 bedtime. Medical Branch zolpidem 2021-0 Yes 5mg Take 5 mg Univ ers (AMBIEN) 5 8-29 by mouth ity o f mg tablet 17:52: at [place] 08 bedtime. Medical Branch brexpiprazo 2021-0 Yes 1mg Take 1 mg U nivers le 8-29 by mouth ity of (REXULTI) 1 17:52: daily. [place] mg Tab 08 Medical Branch hydrALAZINE 0 Yes 25mg Take 25 mg Univers 25 mg 8-29 by mouth ity of tablet 17:52: in the [place] 08 morning Medical and 25 mg Branch in the evening. FLUoxetine 2021-0 Yes 10mg Take 10 mg U nivers 10 mg 8-29 by mouth ity of capsule 17:52: in the [place] 08 morning. Medical Branch atorvastati 2021-0 Yes 10mg Take 10 mg Univers n (LIPITOR) 8-29 by mouth ity of 10 mg 17:52: at [place] tablet 08 bedtime. Medical Branch zolpidem 2021-0 Yes 5mg Take 5 mg Univ ers (AMBIEN) 5 8-29 by mouth ity o f mg tablet 17:52: at [place] 08 bedtime. Medical Branch brexpiprazo 0 Yes 1mg Take 1 mg U nivers le 8-29 by mouth ity of (REXULTI) 1 17:52: daily. [place] mg Tab 08 Medical Branch hydrALAZINE 2021-0 Yes 25mg Take 25 mg Univers 25 mg 8-29 by mouth ity of tablet 17:52: in the [place] 08 morning Medical and 25 mg Branch in the evening. FLUoxetine 2021-0 Yes 10mg Take 10 mg U nivers 10 mg 8-29 by mouth ity of capsule 17:52: in the [place] 08 morning. Medical Branch atorvastati 2021-0 Yes 10mg Take 10 mg Univers n (LIPITOR) 8-29 by mouth ity of 10 mg 17:52: at [place] tablet 08 bedtime. Medical Branch zolpidem 2021-0 Yes 5mg Take 5 mg Univ ers (AMBIEN) 5 8-29 by mouth ity o f mg tablet 17:52: at [place] 08 bedtime. Medical Branch brexpiprazo Yes 1mg Take 1 mg U nivers le 8-29 by mouth ity of (REXULTI) 1 17:52: daily. [place] mg Tab 08 Medical Branch hydrALAZINE Yes 25mg Take 25 mg Univers 25 mg 8-29 by mouth ity of tablet 17:52: in the [place] [address] morning Medical and 25 mg Branch in the evening. FLUoxetine Yes 10mg Take 10 mg U nivers 10 mg 8-29 by mouth ity of capsule 17:52: in the [place] [address] morning. Medical Branch apixaban 0 202- No 5mg Take 5 mg Uni vers (ELIQUIS) 5 -10-05 by mouth ity of mg tablet 14:13: 00:00 in the [place] 20 :00 morning Medical and 5 mg Branch in the evening. apixaban Yes 2.5mg 2.5 mg, Unive rs (ELIQUIS) 8- Oral, BID, ity of tablet 2.5 01:00: First dose [place] mg 00 on [facility] 10/04/21 at Branch 1999, Until Discontinu ed, Routine
Indicatio ns: Non-Valvul ar Atrial Fibrillati on budesonide- Yes [id number] 2{puff} Inhale 2 Univers formoteroL 8-29 Puffs in ity o f 160-4.5 00:00: the [place] mcg/actuati 00 morning Medic al on inhaler and 2 Branch Puffs in the evening. vancomycin Yes [id number] 125mg Take 1 Univers 125 mg 8-29 capsule by ity of capsule 00:00: mouth 4 [place] [address] (four) Medical times Orestes daily. budesonide- Yes [id number] 2{puff} Inhale 2 Univers formoteroL 8-29 Puffs in ity o f 160-4.5 00:00: the [place] mcg/actuati 00 morning Medic al on inhaler and 2 Branch Puffs in the evening. vancomycin Yes [id number] 125mg Take 1 Univers 125 mg 8-29 capsule by ity of capsule 00:00: mouth 4 [place] (four) Medical times Orestes daily. budesonide- Yes [id number] 2{puff} Inhale 2 Univers formoteroL 8-29 Puffs in ity o f 160-4.5 00:00: the [place] mcg/actuati 00 morning Medic al on inhaler and 2 Branch Puffs in the evening. vancomycin Yes [id number] 125mg Take 1 Univers 125 mg 8-29 capsule by ity of capsule 00:00: mouth 4 [place] [address] (four) Medical times Branch daily. budesonide- Yes [id number] 2{puff} Inhale 2 Univers formoteroL 8-29 Puffs in ity o f 160-4.5 00:00: the [place] mcg/actuati 00 morning Medic al on inhaler and 2 Branch Puffs in the evening. vancomycin Yes [id number] 125mg Take 1 Univers 125 mg 8-29 capsule by ity of capsule 00:00: mouth 4 [place] 00 (four) Medical times Branch daily. apixaban 2021- Yes 1358 2.5mg Take 1 Unive rs 2.5 mg 8-29 11-28 tablet by ity of tablet 00:00: 05:59 mouth in [place] 00 :00 the Medical morning Branch and 1 tablet in the evening. Do all this for 90 days. Indication s: atrial fibrillati on apixaban 2021- Yes 1358 2.5mg Take 1 Unive rs 2.5 mg 8-29 11-28 tablet by ity of tablet 00:00: 05:59 mouth in [place] 00 :00 the Medical morning Branch and 1 tablet in the evening. Do all this for 90 days. Indication s: atrial fibrillati on apixaban 2021- Yes 1358 2.5mg Take 1 Unive rs 2.5 mg 8-29 11-28 tablet by ity of tablet 00:00: 05:59 mouth in [place] 00 :00 the Medical morning Branch and 1 tablet in the evening. Do all this for 90 days. Indication s: atrial fibrillati on apixaban 2021- Yes 1358 2.5mg Take 1 Unive rs 2.5 mg 8-29 11-28 tablet by ity of tablet 00:00: 05:59 mouth in [place] 00 :00 the Medical morning Branch and 1 tablet in the evening. Do all this for 90 days. Indication s: atrial fibrillati on vancomycin 2021- No [id number] 125mg Take 1 Univers 125 mg 10-05 capsule by ity of capsule 00:00: 00:00 mouth 4 [place] 00 :00 (four) Medical times Orestes daily for 10 days. zolpidem Yes 5mg 5 mg, Univers (AMBIEN) 10-04 Oral, ity of tablet 5 mg 21:45: QHSPRN, 3 [place] 27 doses, Medical Starting Branch on [place] 10/04/21 at 1645, Until Discontinu ed, Routine, Insomnia brexpiprazo Yes 1mg 1 mg, Unive rs le 10-04 Oral, ity of (REXULTI) 14:00: DAILY, [place] Tab 1 mg 00 First dose Medic al on [facility] 10/04/21 at 0900, Until Discontinu ed, Routine
Medicatio n Name: rexulti
Form: Tablet
Length of Therapy: Indefinite
How soon needed (normally 72 hours needed to procure): 0-24 hrs
Juliana son for non-formul thiago use: PATIENT CURRENTLY TAKING NONFORMULA RY PRODUCT fidaxomicin 2021- Yes 200mg 200 mg, U nivers (DIFICID) 10-04 Oral, BID, ity of tablet 200 13:00: 12:59 20 doses, [place] mg 00 :00 First dose Medical on [facility] 10/04/21 at 0800, Last dose on Tue10/13/21 at 2000, Routine
Reason for Anti-Infec tive: Documented Infection< br>Documen shazia Infection Site: Abdominal< br>Duratio n of Therapy: 10 days atorvastati Yes 10mg 10 mg, Univ ers n (LIPITOR) 10-04 Oral, QHS, it y of tablet 10 02:00: First dose [place] mg 00 on [facility] 10/03/21 at Branch 2100, Until Discontinu ed, Routine budesonide- Yes 2{puff} 2 Puff, Univers formoteroL 10-04 Inhalation ity of (SYMBICORT) 01:00: , BID, [place] 160-4.5 00 First dose Medica l mcg/actuati on Sat Branch on inhaler 10/03/21 at 2 Puff 2000, Until Discontinu ed, Routine zolpidem 2021- No 5mg 5 mg, Univers (AMBIEN) 10-03 Oral, ity of tablet 5 mg 22:04: 02:54 QHSPRN, 1 [place] 06 :00 dose, Medical Starting Branch on 10/03/21 at 1704, Until Discontinu ed, Routine, Insomnia ipratropium Yes 3mL 3 mL, Unive rs -albuteroL 10-03 Inhalation ity of (DUONEB) 14:32: , TIDPRN, [place] 0.5 mg-3 09 Starting Medical mg(2.5 mg on Sat Branch base)/3 mL 10/03/21 at nebulizer 0932, solution 3 Until mL Discontinu ed, Routine, Wheezing, Shortness of Breath pantoprazol Yes 40mg 40 mg, Univ ers e 10-03 Slow IV ity of (PROTONIX) 14:15: Push, [place] injection 00 Q12H, Medical 40 mg First dose Branch (after last modificati on) on 10/03/21 at 0915, Until Discontinu ed FLUoxetine Yes 10mg 10 mg, Unive rs (PROZAC) 10-03 Oral, ity of capsule 10 14:00: DAILY, [place] mg 00 First dose Medical on Sat Branch 10/03/21 at 0900, Until Discontinu ed, Routine pantoprazol No 40mg 40 mg, Uni vers e 10-03 Oral, ity of (PROTONIX) 14:00: 13:58 DAILY, [place] EC tablet 00 :02 First dose Medi carlyle 40 mg on Sat Branch 10/03/21 at 0900, Until Discontinu ed, Routine ARIPiprazol No 5mg 5 mg, Univ ers e (ABILIFY) 10-03 Oral, ity of tablet 5 mg 14:00: 21:35 DAILY, Jeremías as 00 :33 First dose Medical on Sat Branch 10/03/21 at 0900, Until Discontinu ed, Routine metroNIDAZO No 250mg 250 mg, U nivers LE (FLAGYL) 10-03 Oral, ity of tablet 250 13:00: 12:35 Q12H, 20 [place] mg 00 :06 doses, Medical First dose Branch on 10/03/21 at 0800, Last dose on Tue10/12/21 at 2000, Routine
Reason for Anti-Infec tive: Documented Infection< br>Documen shazia Infection Site: Abdominal< br>Duratio n of Therapy: 10 days ciprofloxac 2021- No 500mg 500 mg, U nivers in HCl 10-03 Oral, BID, ity of (CIPRO) 13:00: 12:35 20 doses, [place] tablet 500 00 :06 First dose Med ical mg on Sat Branch 10/03/21 at 0800, Last dose on Tue10/12/21 at 2000, HIEU
Re ason for Anti-Infec tive: Empiric Therapy for Suspected Infection< br>Empiric Therapy Site: Abdominal< br>Duratio n of therapy: 5 days zolpidem 2021- No 5mg 5 mg, Univers (AMBIEN) 10-03 Oral, QHS, ity of tablet 5 mg 03:00: 03:29 1 dose, [place] 00 :00 First dose Medical (after Branch last modificati on) on Tue10/02/21 at 2200, Routine acetaminoph Yes 650mg 650 mg, Un aziza en 10-03 Oral, ity of (TYLENOL) 02:57: Q6HPRN, [place] tablet 650 09 Starting Medic al mg on Fri Branch 10/02/21 at 2157, Until Discontinu ed, Routine, Pain (scale 1-3) iopamidol 2021- No [id number] 60mL 60 mL, U nivers (ISOVUE 10-02 Intravenou ity o f 370-500 mL) 22:30: 22:30 s, ONCE, 1 [place] injection 00 :00 dose, On Medica l 60 mL Fri Branch 10/02/21 at 1730, Routine pantoprazol 2021- No 40mg 40 mg, IV Univers e 10-02 Push, ity of (PROTONIX) 21:30: 21:32 ONCE, 1 [place] as 40 mg in 00 :00 dose, On Medical NaCl 0.9% Fri Branch (NS) 20 mL 10/02/21 at syringe 1630, Administer over 2 Minutes, 20 mL Vital Signs Vital Name Observation Time Observation Value Comments Source Systolic blood 2021-10-16 02:55:00 137 mm[Hg] Univer sity of pressure [facility] Branch Diastolic blood 2021-10-16 02:55:00 53 mm[Hg] Unive rsity of pressure [place] [facility] Heart rate 2021-10-16 02:55:00 67 /min Universi ty of [facility] Branch Respiratory rate 2021-10-16 02:55:00 14 /min Univ ersity of [facility] Branch Oxygen saturation in 2021-10-16 02:55:00 93 /min University of Arterial blood by [employer] Pulse oximetry Branch Body temperature 2021-10-16 00:49:00 38.06 Bel Univ ersity of [place] [facility] Body height 2021-10-16 00:49:00 152.4 cm Universi ty of [place] [facility] Body weight 2021-10-16 00:49:00 55.339 kg Universi ty of [place] [facility] BMI 2021-10-16 00:49:00 23.83 kg/m2 Universi ty of [facility] Branch Systolic blood 2021-10-05 20:21:00 159 mm[Hg] Univer sity of [facility] Branch Diastolic blood 2021-10-05 20:21:00 64 mm[Hg] Unive rsity of pressure [place] [facility] Heart rate 2021-10-05 20:21:00 69 /min Universi ty of [place] [facility] Body temperature 2021-10-05 20:21:00 36.28 Bel Univ ersity of [facility] Branch Respiratory rate 2021-10-05 20:21:00 18 /min Univ ersity of [place] [facility] Oxygen saturation in 2021-10-05 20:21:00 96 /min University of Arterial blood by Modality carlyle Pulse oximetry Branch Body height 2021-10-03 03:00:00 152.4 cm Universi ty of [place] [facility] Body weight 2021-10-03 03:00:00 54.432 kg Universi ty of [facility] Branch BMI 2021-10-03 03:00:00 23.44 kg/m2 [facility] Medical Branch Procedures Procedure Date / Time Performing Source Performed Clinician XR CHEST 1 VW 2021-10-16 Maged [facility] 01:40:24 [facility]00 [facility] TROPONIN I 2021[facility]10-[facility] 01[facility]00 [facility] COMP. METABOLIC PANEL ([id number]) 2021-10-16 Maged [facility] 01:09:00 [facility] CBC WITH DIFF 2021-10-16 Lynne [facility] 01:09:00 [facility] N-TERMINAL PRO-BNP 2021[facility]10[facility]00 [facility] COVID-19 (ID NOW RAPID 2021-10-16 [facility] TESTING) 01:09:00 [facility] LACTIC ACID WHOLE BLOOD [facility]00 [facility] CONSENT/REFUSAL FOR DIAGNOSIS 2021-10-16 Doctor Unassigned, [facility] AND TREATMENT 00:42:00 [place] [facility] Branch MAGNESIUM 2021-10-05 Yimi [facility] 09:12:00 [facility] BASIC METABOLIC PANEL (NA, K, 2021-10-05 Abdoulaye Geller [facility] CL, CO2, GLUCOSE, BUN, 09:12:00 [facility] ran CREATININE, [place]) CBC WITHOUT DIFF 2021-10-05 Yimi [facility] [place] 09:12:00 [facility] ELECTROENCEPHALOGRAM 2021-10-05 Yimi [facility] 00:00:00 [facility] MAGNESIUM 2021-10-04 Daren [facility] 09:50:00 [facility] BASIC METABOLIC PANEL (NA, K, 2021-10-04 [facility], CO2, GLUCOSE, BUN, 09:50:00 [facility] ranch CREATININE, [place]) CBC WITH DIFF 2021-10-04 Kate [facility] 09:50:00 Medical Branch HB ABO GROUPING 2021-10-04 [facility] Branch CBC WITH DIFF 2021-10-04 Nicholas, [facility] 02:49:00 Medical Branch COMP. METABOLIC PANEL ([id number]) 2021-10-03 Nicholas, [facility] 16:43:00 Medical Branch CBC WITH DIFF 2021-10-03 Nicholas, [facility] 16:43:00 Medical Branch CLOSTRIDIUM DIFFICILE TOXIN 2021-10-03 Flash [facility] 11:15:00 Medical Branch FECAL PATHOGENS BY PCR 2021-10-03 [facility] 11:14:00 Medical Branch OCCULT (GUAIAC) BLOOD 2021-10-03 Flash [facility] 11:13:00 Medical Branch PROTHROMBIN TIME / INR 2021-10-03 [facility] 03:52:00 Medical Branch ACTIVATED PARTIAL THRMPLAS 2021-10-03 Flash [facility] ANA 03:52:00 Medical Branch BASIC METABOLIC PANEL (NA, K, 2021-10-03 [facility], CO2, GLUCOSE, BUN, 03:30:00 [facility] B ranch CREATININE, [place]) CBC WITH DIFF 2021-10-03 Flash [facility] 03:30:[address] ABDOMEN PELVIS W CONTRAST 2021-10-02 Brittanie Pal [facility] 21:30:36 Medical Branch ABORH CONFIRMATION (LAB ONLY) 2021-10-02 [facility] 21:30:00 Medical Branch HB ECG ROUTINE & RHYTHM STRIP 2021-10-02 [facility] 20:58:31 Medical Branch COVID-19 (ID NOW RAPID 2021-10-02 Brittanie Pal [facility] TESTING) 20:47:00 Medical Branch LAB ONLY COVID INTERPRETATION 2021-10-02 Brittanie Pal Un [facility] 20:47:00 Medical Branch COMP. METABOLIC PANEL ([id number]) 2021-10-02 Britt[facility] 20:44[facility]00 Medical Branch IRON PANEL 2021-10-02 Yasmani Mercedes [facility] [place] 20:44:00 [facility] CBC WITH DIFF 2021-10-02 Brittanie Pal [facility] xas 20:44:00 Medical Branch GLYCOSYLATED HEMOGLOBIN (A1C) 2021-10-02 T[facility]ha [facility]ales [facility] 20:44:00 Medical Branch PROTHROMBIN TIME / INR 2021-10-02 Brittanie Pal [facility] 20:44:00 Medical Branch ACTIVATED PARTIAL THRMPLAS 2021-10-02 Brittanie Pal [facility] ANA 20:44:00 Medical Branch HB ABO GROUPING 2021-10-02 Brittanie Pal [facility] [place] 20:40:00 Medical Branch NOTICE OF PRIVACY PRACTICES 2021-10-02 Doctor Unassigned, [facility] 19:48:10 [place] [facility] HOSPITAL ADMISSION 2021-10-02 Doctor Unassigned, [facility] 05:01:00 [place] [facility] Branch Encounters Start End Encounter Admission Attending Care Care Encounter Source Date/Time Date/Time Type Type Clinicians Facility Department ID 2021-10-15 2021-10-15 Emergency X LYNNE, MICHA [facility] ERT [id number] Univers 19:43:00 21:57:00 LYNNE, MICHA saima [facility] [place] 2021-10-15 2021-10-15 Emergency Maged [facility] [id number] Univers 19:43:00 21:57:00 Micha AMARO [id number] i ty of [place] [id number] [place] DARDAN[place] [id number] [facility] 084 Branch 2021-10-06 2021-10-06 Transition ADDISON Baum [id number] Univers 00:00:00 00:00:00 of Care Katya GRACIAY [id number] it y of [place] [id number] [place] [id number] [facility] 403 Branch 2021-10-02 2021-10-05 [facility] Brittanie Pal [id number] Univers 15:20:00 17:15:00 Encounter Padma Abraham [id number] ity [facility] [id number] [facility] [place] [id number] [facility] 100 Branch 2021-10-02 2021-10-05 Inpatient X [facility] [id number] Univers 15:20:00 17:15:00 PADMA itjavier [facility] [place] 2021-10-05 2021-10-05 Telephone Mufti [facility] [id number] Univers 00:00:00 00:00:00 Padma [id number] [facility] [id number] [facility] [id number] [facility] AND CHAMPLAIN 067 Branch DIABETES CLINIC 2021-09-02 2021-09-02 Outpatient [facility] [id number] [place] 00:00:00 00:00:00 _MARÍA 0727 [facility] Program Results Test Description Test Time Test Comments Results Result Comments Source TROPONIN I 2021-10-16 01:50:28 Test Item Value Reference Range Interpretation Comme nts TROPONIN I (test code = 0.006 ng/mL See_Comment [Au tomated message] The [id number]) system which ge nerated this result tra nsmitted reference range : <=0.034. The reference r manav was not used to int erpret this result as normal/abnormal . SUZE (test code = SUZE) Reference (Normal) Range (defined by the 99th percentile reference limit): <= 0.034 ng/mL Note: Cardiac troponin begins to rise 3-4 hours after the onset of ischemia. Repeat in 4-6 hours if the sample was drawn within 3-4 hours of the onset of the symptom and found normal. Diagnosis of myocardial injury is made with acute changes in cTn concentrations with at least one serial sample above the 99th percentile upper reference limit (URL), taken together with the patient's clinical presentation. Biotin has been reported to cause a negative bias, interpret results relative to patient's use of biotin. Lab Interpretation Normal (test code = 20740-0) [id number] 01:47:31 Test Item Value Reference Range Interpretation Comments NT-proBNP (test code 488 pg/mL See_Comment H [Autom ated = 7329360157) message] The system which generated this result transmitted reference range : <=450. The reference range was not used to interpret this result as normal/abnormal . SUZE (test code = SUZE) Biotin has been reported to cause a negative bias, interpret results relative to patient's use of biotin. Lab Interpretation Abnormal (test code = 04219-3) [facility]. METABOLIC PANEL ([id number])2021-10-16 01:34:28 Test Item Value Reference Range Interpretation Comments NA (test code = 135 mmol/L 135-145 8693657312) K (test code = 3.6 mmol/L 3.5-5 3033523241) CL (test code = 102 mmol/L 98-108 5641018489) CO2 TOTAL (test code = 25 mmol/L 23-31 5911836820) AGAP (test code = 2-16 9008682842) BUN (test code = 15 mg/dL 7-23 3915012827) GLUCOSE (test code = 92 mg/dL 70-110 0558937103) CREATININE (test code = 0.91 mg/dL 0.5-1.04 9122308262) TOTAL BILI (test code = 1.2 mg/dL 0.1-1.1 H 7501863701) CALCIUM (test code = 9.2 mg/dL 8.6-10.6 2448002854) T PROTEIN (test code = 6.6 g/dL 6.3-8.2 0336507366) ALBUMIN (test code = 4.4 g/dL 3.5-5 4575086391) ALK PHOS (test code = 95 U/L 34-122 2710547710) ALTv (test code = 22 U/L 5-35 1742-6) AST(SGOT) (test code = 34 U/L 13-40 2943829820) eGFR (test code = mL/min/1.73m2 5909023722) SUZE (test code = SUZE) Association of Glomerular Filtration Rate (GFR) and Staging of Kidney Disease* + --+ --+ ------+| GFR (mL/min/1.73 m2) ?| With Kidney Damage ?| ?Without Kidney Damage+ --------+ --------+ +| ?>90 ?| ?Stage one ?| ? Normal ?+ ---+ ---+ -------+| ?60-89 ?| ?Stage two ?| ? Decreased GFR ? + --+ --+ ------+| ?30-59 ?| ?Stage three ?| ? Stage three ? + --+ --+ ------+| ?15-29 ?| ?Stage four ? | ? Stage four ?+ ---+ ---+ -------+| ?<15 (or dialysis) ? ?| ?Stage five ? | ? Stage five ?+ ---+ ---+ -------+ *Each stage assumes the associated GFR level has been in effect for at least three months. ?Stages 1 to 5, with or without kidney disease, indicate chronic kidney disease. Notes: Determination of stages one and two (with eGFR >59mL/min/1.73 m2) requires estimation of kidney damage for at least three months as defined by structural or functional abnormalities of the kidney, manifested by either:Pathological abnormalities or Markers of kidney damage (including abnormalities in the composition of the blood or urine or abnormalities in imaging tests). Lab Interpretation Abnormal (test code = 71839-8) [facility] WITH [id number] 01:21:05 Test Item Value Reference Range Interpretation Comments WBC (test code = See_Comment [Automated 1671-2) message] The sy stem which generated this result transmitted reference range : 4.30 - 11.10 10*3/?L. The reference range was not used to interpret this result as normal/abnormal . RBC (test code = See_Comment [Automated 183-8) message] The sy stem which generated this result transmitted reference range : 3.93 - 5.25 10*6/?L. The reference range was not used to interpret this result as normal/abnormal . HGB (test code = 12.4 g/dL 11.6-15 718-7) HCT (test code = 37.2 % 35.7-45.2 4544-3) MCV (test code = 91.4 fL 80.6-95.5 787-2) MCH (test code = 30.5 pg 25.9-32.8 785-6) MCHC (test code = 33.3 g/dL 31.6-35.1 786-4) RDW-SD (test code = 40.9 fL 39-49.9 11546-3) RDW-CV (test code = 12.2 % 12-15.5 788-0) PLT (test code = See_Comment [Automated 777-3) message] The sy stem which generated this result transmitted reference range : 166 - 358 10*3/ ?L. The reference r manav was not used to interpret this result as normal/abnormal . MPV (test code = 9.9 fL 9.5-12.9 21095-3) NRBC/100 WBC (test See_Comment [Automat ed code = 4422350878) message] The system which generated this result transmitted reference range : 0.0 - 10.0 /100 WBCs. The refer ence range was not u sed to interpret th is result as normal/abnormal . NRBC x10^3 (test code See_Comment [Auto mated = 6359141697) message] The s ystem which generated this result transmitted reference range : 10*3/?L. The reference range was not used to interpret this result as normal/abnormal . GRAN MAT (NEUT) % 76.4 % (test code = 770-8) IMM GRAN % (test code 0.20 % = 3091331701) LYMPH % (test code = 8.3 % 736-9) MONO % (test code = 9.5 % 5905-5) EOS % (test code = 4.4 % 713-8) BASO % (test code = 1.2 % 706-2) GRAN MAT x10^3(ANC) 4.50 10*3/uL 1.88-7.09 (test code = 5771232414) IMM GRAN x10^3 (test 0-0.06 code = 3636286420) LYMPH x10^3 (test code 0.49 10*3/uL 1.32-3.29 L = 731-0) MONO x10^3 (test code 0.56 10*3/uL 0.33-0.92 = 742-7) EOS x10^3 (test code = 0.26 10*3/uL 0.03-0.39 711-2) BASO x10^3 (test code 0.07 10*3/uL 0.01-0.07 = 704-7) Lab Interpretation Abnormal (test code = 90977-2) [facility] METABOLIC PANEL (NA, K, CL, CO2, GLUCOSE, BUN, CREATININE, CA)2021-10-05 10:08:40 Test Item Value Reference Range Interpretation Comments NA (test code = 135 mmol/L 135-145 2097648987) K (test code = 3.9 mmol/L 3.5-5 8010782727) CL (test code = 106 mmol/L 98-108 1135925302) CO2 TOTAL (test code = 27 mmol/L 23-31 3280377784) AGAP (test code = 2-16 9553985719) BUN (test code = 17 mg/dL 7-23 7970656864) GLUCOSE (test code = 100 mg/dL 70-110 0371769894) CREATININE (test code = 1.21 mg/dL 0.5-1.04 H 9274619161) CALCIUM (test code = 8.7 mg/dL 8.6-10.6 9262302497) eGFR (test code = mL/min/1.73m2 0805229471) SUZE (test code = SUZE) Association of Glomerular Filtration Rate (GFR) and Staging of Kidney Disease* + --+ --+ ------+| GFR (mL/min/1.73 m2) ?| With Kidney Damage ?| ?Without Kidney Damage+ --------+ --------+ +| ?>90 ?| ?Stage one ?| ? Normal ?+ ---+ ---+ -------+| ?60-89 ?| ?Stage two ?| ? Decreased GFR ? + --+ --+ ------+| ?30-59 ?| ?Stage three ?| ? Stage three ? + --+ --+ ------+| ?15-29 ?| ?Stage four ? | ? Stage four ?+ ---+ ---+ -------+| ?<15 (or dialysis) ? ?| ?Stage five ? | ? Stage five ?+ ---+ ---+ -------+ *Each stage assumes the associated GFR level has been in effect for at least three months. ?Stages 1 to 5, with or without kidney disease, indicate chronic kidney disease. Notes: Determination of stages one and two (with eGFR >59mL/min/1.73 m2) requires estimation of kidney damage for at least three months as defined by structural or functional abnormalities of the kidney, manifested by either:Pathological abnormalities or Markers of kidney damage (including abnormalities in the composition of the blood or urine or abnormalities in imaging tests). Lab Interpretation Abnormal (test code = 70037-2) [facility] 10:08:40 Test Item Value Reference Range Interpretation Comments MAGNESIUM (test code = 2627356526) 1.8 mg/dL 1.7-2.4 Lab Interpretation (test code = Normal 50136-7) [facility]CBC WITHOUT [id number] 09:30:59 Test Item Value Reference Range Interpretation Comments WBC (test code = 6690-2) See_Comment [A utomated message] The system [employer] generated this result transmit shazia reference range : 4.30 - 11.10 10*3/?L. The reference range was not used to interpret this result as normal/abnormal . RBC (test code = 789-8) See_Comment L [Au tomated message] The system [employer] generated this result transmit shazia reference range : 3.93 - 5.25 10* 6/?L. The reference r manav was not used to interpret this result as normal/abnormal . HGB (test code = 718-7) 10.1 g/dL 11.6-15 L HCT (test code = 4544-3) 29.3 % 35.7-45.2 L MCH (test code = 785-6) 31.9 pg 25.9-32.8 MCV (test code = 787-2) 92.4 fL 80.6-95.5 MCHC (test code = 786-4) 34.5 g/dL 31.6-35.1 PLT (test code = 777-3) See_Comment [Au tomated message] The system [employer] generated this result transmit shazia reference range : 166 - 358 10*3/?L. The reference range was not used to interpret this result as normal/abnormal . MPV (test code = 10.0 fL 9.5-12.9 15312-3) RDW-CV (test code = 12.1 % 12-15.5 788-0) RDW-SD (test code = 41.6 fL 39-49.9 81030-8) NRBC x10^3 (test code = See_Comment [Au tomated message] 2402619194) The system [employer] generated this result transmit shazia reference range : 10*3/?L. The reference range was not used to interpret this result as normal/abnormal . NRBC/100 WBC (test code See_Comment [Au tomated message] = 3229477758) The system [facility] generated this result transmit shazia reference range : 0.0 - 10.0 /100 WBC s. The reference r manav was not used to interpret this result as normal/abnormal . IPF % (test code = 2359983822) Lab Interpretation (test Abnormal code = 58172-4) [facility] WITH [id number] 10:56:20 Test Item Value Reference Range Interpretation Comments WBC (test code = See_Comment L [Automated 6690-2) message] The sy stem which generated this result transmitted reference range : 4.30 - 11.10 10*3/?L. The reference range was not used to interpret this result as normal/abnormal . RBC (test code = See_Comment L [Automated 789-8) message] The sy stem which generated this result transmitted reference range : 3.93 - 5.25 10*6/?L. The reference range was not used to interpret this result as normal/abnormal . HGB (test code = 10.1 g/dL 11.6-15 L 718-7) HCT (test code = 29.1 % 35.7-45.2 L 4544-3) MCV (test code = 92.4 fL 80.6-95.5 787-2) MCH (test code = 32.1 pg 25.9-32.8 785-6) MCHC (test code = 34.7 g/dL 31.6-35.1 786-4) RDW-SD (test code = 41.0 fL 39-49.9 19968-6) RDW-CV (test code = 12.1 % 12-15.5 788-0) PLT (test code = See_Comment [Automated 777-3) message] The sy stem which generated this result transmitted reference range : 166 - 358 10*3/ ?L. The reference r manav was not used to interpret this result as normal/abnormal . MPV (test code = 9.5 fL 9.5-12.9 79700-4) NRBC/100 WBC (test See_Comment [Automat ed code = 3085727117) message] The system which generated this result transmitted reference range : 0.0 - 10.0 /100 WBCs. The refer ence range was not u sed to interpret th is result as normal/abnormal . NRBC x10^3 (test code See_Comment [Auto mated = 4727170051) message] The s ystem which generated this result transmitted reference range : 10*3/?L. The reference range was not used to interpret this result as normal/abnormal . GRAN MAT (NEUT) % 50.7 % (test code = 770-8) IMM GRAN % (test code 0.30 % = 4448310292) LYMPH % (test code = 27.0 % 736-9) MONO % (test code = 10.1 % 5905-5) EOS % (test code = 10.7 % 713-8) BASO % (test code = 1.2 % 706-2) GRAN MAT x10^3(ANC) 1.65 10*3/uL 1.88-7.09 L (test code = 4852232872) IMM GRAN x10^3 (test 0-0.06 code = 4747954055) LYMPH x10^3 (test code 0.88 10*3/uL 1.32-3.29 L = 731-0) MONO x10^3 (test code 0.33 10*3/uL 0.33-0.92 = 742-7) EOS x10^3 (test code = 0.35 10*3/uL 0.03-0.39 711-2) BASO x10^3 (test code 0.04 10*3/uL 0.01-0.07 = 704-7) Lab Interpretation Abnormal (test code = 11328-4) [facility] METABOLIC PANEL (NA, K, CL, CO2, GLUCOSE, BUN, CREATININE, CA)2021-10-04 10:47:23 Test Item Value Reference Range Interpretation Comments NA (test code = 133 mmol/L 135-145 L 5464968763) K (test code = 3.8 mmol/L 3.5-5 6744423197) CL (test code = 105 mmol/L 98-108 0492338574) CO2 TOTAL (test code = 29 mmol/L 23-31 1884175153) AGAP (test code = 2-16 L 0844841232) BUN (test code = 10 mg/dL 7-23 6995695351) GLUCOSE (test code = 89 mg/dL 70-110 1807890703) CREATININE (test code = 1.03 mg/dL 0.5-1.04 0021032151) CALCIUM (test code = 8.6 mg/dL 8.6-10.6 8794547592) eGFR (test code = mL/min/1.73m2 4599907239) SUZE (test code = SUZE) Association of Glomerular Filtration Rate (GFR) and Staging of Kidney Disease* + --+ --+ ------+| GFR (mL/min/1.73 m2) ?| With Kidney Damage ?| ?Without Kidney Damage+ --------+ --------+ +| ?>90 ?| ?Stage one ?| ? Normal ?+ ---+ ---+ -------+| ?60-89 ?| ?Stage two ?| ? Decreased GFR ? + --+ --+ ------+| ?30-59 ?| ?Stage three ?| ? Stage three ? + --+ --+ ------+| ?15-29 ?| ?Stage four ? | ? Stage four ?+ ---+ ---+ -------+| ?<15 (or dialysis) ? ?| ?Stage five ? | ? Stage five ?+ ---+ ---+ -------+ *Each stage assumes the associated GFR level has been in effect for at least three months. ?Stages 1 to 5, with or without kidney disease, indicate chronic kidney disease. Notes: Determination of stages one and two (with eGFR >59mL/min/1.73 m2) requires estimation of kidney damage for at least three months as defined by structural or functional abnormalities of the kidney, manifested by either:Pathological abnormalities or Markers of kidney damage (including abnormalities in the composition of the blood or urine or abnormalities in imaging tests). Lab Interpretation Abnormal (test code = 68003-6) [facility] 10:27:12 Test Item Value Reference Range Interpretation Comments MAGNESIUM (test code = 6107766348) 1.8 mg/dL 1.7-2.4 Lab Interpretation (test code = Normal 49501-9) [facility] WITH [id number] 03:39:50 Test Item Value Reference Range Interpretation Comments WBC (test code = See_Comment L [Automated 6690-2) message] The sy stem which generated this result transmitted reference range : 4.30 - 11.10 10*3/?L. The reference range was not used to interpret this result as normal/abnormal . RBC (test code = See_Comment L [Automated 789-8) message] The sy stem which generated this result transmitted reference range : 3.93 - 5.25 10*6/?L. The reference range was not used to interpret this result as normal/abnormal . HGB (test code = 10.0 g/dL 11.6-15 L 718-7) HCT (test code = 29.4 % 35.7-45.2 L 4544-3) MCV (test code = 92.7 fL 80.6-95.5 787-2) MCH (test code = 31.5 pg 25.9-32.8 785-6) MCHC (test code = 34.0 g/dL 31.6-35.1 786-4) RDW-SD (test code = 40.8 fL 39-49.9 84607-2) RDW-CV (test code = 11.9 % 12-15.5 L 788-0) PLT (test code = See_Comment L [Automated 777-3) message] The sy stem which generated this result transmitted reference range : 166 - 358 10*3/ ?L. The reference r manav was not used to interpret this result as normal/abnormal . MPV (test code = 9.8 fL 9.5-12.9 46333-1) NRBC/100 WBC (test See_Comment [Automat ed code = 6630768784) message] The system which generated this result transmitted reference range : 0.0 - 10.0 /100 WBCs. The refer ence range was not u sed to interpret th is result as normal/abnormal . NRBC x10^3 (test code See_Comment [Auto mated = 8034786840) message] The s ystem which generated this result transmitted reference range : 10*3/?L. The reference range was not used to interpret this result as normal/abnormal . GRAN MAT (NEUT) % 51.4 % (test code = 770-8) IMM GRAN % (test code 0.30 % = 1392357096) LYMPH % (test code = 26.5 % 736-9) MONO % (test code = 10.8 % 5905-5) EOS % (test code = 10.0 % 713-8) BASO % (test code = 1.0 % 706-2) GRAN MAT x10^3(ANC) 1.96 10*3/uL 1.88-7.09 (test code = 3391774236) IMM GRAN x10^3 (test 0-0.06 code = 0564812230) LYMPH x10^3 (test code 1.01 10*3/uL 1.32-3.29 L = 731-0) MONO x10^3 (test code 0.41 10*3/uL 0.33-0.92 = 742-7) EOS x10^3 (test code = 0.38 10*3/uL 0.03-0.39 711-2) BASO x10^3 (test code 0.04 10*3/uL 0.01-0.07 = 704-7) Lab Interpretation Abnormal (test code = 00506-8) [facility] - ONCE [id number] 03:38:54 Test Item Value Reference Range Interpretation Comments ABO & RH (test code O POSITIVE Performe d at [facility] = 20) Laboratory [facility]3 [address] [facility] s [address]Uhxp Free: [phone] A No. [id number] IAT (test code = Negative Performed a t [facility] 1185) Laboratory [facility] s [address]Acio Free: [phone] A No. [id number] [facility] [id number] 15:51:56 Test Item Value Reference Range Interpretation Comments IRON (test code = 8132647776) 78 ug/dL 50-160 TIBC (test code = 7593399102) 296 ug/dL 250-410 % FE SAT (test code = 9007935875) 26 % 20-50 Lab Interpretation (test code = Normal 21654-9) [facility] METABOLIC PANEL (NA, K, CL, CO2, GLUCOSE, BUN, CREATININE, CA)2021-10-03 04:19:41 Test Item Value Reference Range Interpretation Comments NA (test code = 136 mmol/L 135-145 2159799661) K (test code = 3.5 mmol/L 3.5-5 8606650387) CL (test code = 103 mmol/L 98-108 5598378979) CO2 TOTAL (test code = 29 mmol/L 23-31 8011404755) AGAP (test code = 2-16 4009012931) BUN (test code = 14 mg/dL 7-23 2443694622) GLUCOSE (test code = 118 mg/dL 70-110 H 2307932168) CREATININE (test code = 0.90 mg/dL 0.5-1.04 5396315919) CALCIUM (test code = 9.4 mg/dL 8.6-10.6 6840155900) eGFR (test code = mL/min/1.73m2 8273873666) SUZE (test code = SUZE) Association of Glomerular Filtration Rate (GFR) and Staging of Kidney Disease* + --+ --+ ------+| GFR (mL/min/1.73 m2) ?| With Kidney Damage ?| ?Without Kidney Damage+ --------+ --------+ +| ?>90 ?| ?Stage one ?| ? Normal ?+ ---+ ---+ -------+| ?60-89 ?| ?Stage two ?| ? Decreased GFR ? + --+ --+ ------+| ?30-59 ?| ?Stage three ?| ? Stage three ? + --+ --+ ------+| ?15-29 ?| ?Stage four ? | ? Stage four ?+ ---+ ---+ -------+| ?<15 (or dialysis) ? ?| ?Stage five ? | ? Stage five ?+ ---+ ---+ -------+ *Each stage assumes the associated GFR level has been in effect for at least three months. ?Stages 1 to 5, with or without kidney disease, indicate chronic kidney disease. Notes: Determination of stages one and two (with eGFR >59mL/min/1.73 m2) requires estimation of kidney damage for at least three months as defined by structural or functional abnormalities of the kidney, manifested by either:Pathological abnormalities or Markers of kidney damage (including abnormalities in the composition of the blood or urine or abnormalities in imaging tests). Lab Interpretation Abnormal (test code = 01662-0) [facility] WITH [id number] 03:59:15 Test Item Value Reference Range Interpretation Comments WBC (test code = See_Comment [Automated 6943-2) message] The sy stem which generated this result transmitted reference range : 4.30 - 11.10 10*3/?L. The reference range was not used to interpret this result as normal/abnormal . RBC (test code = See_Comment [Automated 989-8) message] The sy stem which generated this result transmitted reference range : 3.93 - 5.25 10*6/?L. The reference range was not used to interpret this result as normal/abnormal . HGB (test code = 12.7 g/dL 11.6-15 718-7) HCT (test code = 37.5 % 35.7-45.2 4544-3) MCV (test code = 93.8 fL 80.6-95.5 787-2) MCH (test code = 31.8 pg 25.9-32.8 785-6) MCHC (test code = 33.9 g/dL 31.6-35.1 786-4) RDW-SD (test code = 42.7 fL 39-49.9 07938-4) RDW-CV (test code = 12.3 % 12-15.5 788-0) PLT (test code = See_Comment [Automated 377-3) message] The sy stem which generated this result transmitted reference range : 166 - 358 10*3/ ?L. The reference r manav was not used to interpret this result as normal/abnormal . MPV (test code = 9.7 fL 9.5-12.9 22325-1) NRBC/100 WBC (test See_Comment [Automat ed code = 1469606426) message] The system which generated this result transmitted reference range : 0.0 - 10.0 /100 WBCs. The refer ence range was not u sed to interpret th is result as normal/abnormal . NRBC x10^3 (test code See_Comment [Auto mated = 0961696348) message] The s ystem which generated this result transmitted reference range : 10*3/?L. The reference range was not used to interpret this result as normal/abnormal . GRAN MAT (NEUT) % 66.4 % (test code = 770-8) IMM GRAN % (test code 0.10 % = 4930987896) LYMPH % (test code = 19.6 % 736-9) MONO % (test code = 7.0 % 5905-5) EOS % (test code = 5.7 % 713-8) BASO % (test code = 1.2 % 706-2) GRAN MAT x10^3(ANC) 4.55 10*3/uL 1.88-7.09 (test code = 5859839052) IMM GRAN x10^3 (test 0-0.06 code = 7709161834) LYMPH x10^3 (test code 1.34 10*3/uL 1.32-3.29 = 731-0) MONO x10^3 (test code 0.48 10*3/uL 0.33-0.92 = 742-7) EOS x10^3 (test code = 0.39 10*3/uL 0.03-0.39 711-2) BASO x10^3 (test code 0.08 10*3/uL 0.01-0.07 H = 704-7) Lab Interpretation Abnormal (test code = 20043-5) [facility] (A1C)2021-10-03 03:46:09 Test Item Value Reference Range Interpretation Comments HGB A1C (test code = 5.0 % 4-5.7 4548-4) SUZE (test code = SUZE) Reference RangesNormal: <5.7%Prediabetes: 5.7 - 6.4%Diabetes: > 6.5% Lab Interpretation (test Normal code = 78040-8) [facility] CampusABOR[facility] Confirmation (Lab Only)2021-10-02 21:53:37 Test Item Value Reference Range Interpretation Comments ABO & RH (test code O Positive Performe d at [facility] = 20) Laboratory [facility] Blood Bank[address] [place], [place] [address]Toll Free: [phone] A No. [id number] [facility] - ONCE [id number] 21:34:44 Test Item Value Reference Range Interpretation Comments ABO & RH (test code O Positive Performe d at [facility] = 20) Laboratory [facility] [place], [place] [address]Toll Free: [phone] A No. [id number] IAT (test code = Negative Performed a t [facility] 1185) Laboratory [facility] [place], [place] [address]Toll Free: [phone] A No. [id number] [facility]. METABOLIC PANEL (72653)2021-10-02 21:13:27 Test Item Value Reference Range Interpretation Comments NA (test code = 139 mmol/L 135-145 0277946285) K (test code = 4.2 mmol/L 3.5-5 3468213544) CL (test code = 102 mmol/L 98-108 9573913184) CO2 TOTAL (test code = 29 mmol/L 23-31 1263490249) AGAP (test code = 2-16 1989744824) BUN (test code = 17 mg/dL 7-23 4689625821) GLUCOSE (test code = 89 mg/dL 70-110 3043303112) CREATININE (test code = 0.85 mg/dL 0.5-1.04 7011613578) TOTAL BILI (test code = 1.5 mg/dL 0.1-1.1 H 7222628934) CALCIUM (test code = 9.5 mg/dL 8.6-10.6 0215027207) T PROTEIN (test code = 6.9 g/dL 6.3-8.2 8446805325) ALBUMIN (test code = 4.5 g/dL 3.5-5 6110157123) ALK PHOS (test code = 83 U/L 34-122 4170034752) ALTv (test code = 24 U/L 5-35 1742-6) AST(SGOT) (test code = 35 U/L 13-40 5063055424) eGFR (test code = mL/min/1.73m2 0615187110) SUZE (test code = SUZE) Association of Glomerular Filtration Rate (GFR) and Staging of Kidney Disease* + --+ --+ ------+| GFR (mL/min/1.73 m2) ?| With Kidney Damage ?| ?Without Kidney Damage+ --------+ --------+ +| ?>90 ?| ?Stage one ?| ? Normal ?+ ---+ ---+ -------+| ?60-89 ?| ?Stage two ?| ? Decreased GFR ? + --+ --+ ------+| ?30-59 ?| ?Stage three ?| ? Stage three ? + --+ --+ ------+| ?15-29 ?| ?Stage four ? | ? Stage four ?+ ---+ ---+ -------+| ?<15 (or dialysis) ? ?| ?Stage five ? | ? Stage five ?+ ---+ ---+ -------+ *Each stage assumes the associated GFR level has been in effect for at least three months. ?Stages 1 to 5, with or without kidney disease, indicate chronic kidney disease. Notes: Determination of stages one and two (with eGFR >59mL/min/1.73 m2) requires estimation of kidney damage for at least three months as defined by structural or functional abnormalities of the kidney, manifested by either:Pathological abnormalities or Markers of kidney damage (including abnormalities in the composition of the blood or urine or abnormalities in imaging tests). Lab Interpretation Abnormal (test code = 02371-2) [facility] CampusACTIVATED PARTIAL THRMPLAS [id number] 21:10:23 Test Item Value Reference Range Interpretation Comments APTT Patient (test See_Comment [Automat ed code = 3173-2) message] The system which generated this result transmitted reference range : 23 - 38 Seconds . The reference range was not used to interpr et this result as normal/abnormal . SUZE (test code = SUZE) The [facility] patient population mean normal value for aPTT is 30 seconds. Lab Interpretation Normal (test code = 88476-9) [facility] / [id number] 21:08:06 Test Item Value Reference Range Interpretation Comments PROTIME PATIENT (test See_Comment H [Auto mated message] code = 5964-2) The system wh ich generated this result transmitted ref erence range: 12.0 - 1 4.7 Seconds. The reference range was not used to int erpret this result as normal/abnormal . INR (test code = 6301-6) Nor mal INR <1.1; Warfarin Therap eutic range 2.0 to 3. 0 or 2.5 to 3.5, dep ending upon the indica tions. Lab Interpretation (test Abnormal code = 20138-9) [facility] WITH [id number] 21:02:42 Test Item Value Reference Range Interpretation Comments WBC (test code = See_Comment [Automated 6690-2) message] The sy stem which generated this result transmitted reference range : 4.30 - 11.10 10*3/?L. The reference range was not used to interpret this result as normal/abnormal . RBC (test code = See_Comment [Automated 569-8) message] The sy stem which generated this result transmitted reference range : 3.93 - 5.25 10*6/?L. The reference range was not used to interpret this result as normal/abnormal . HGB (test code = 13.6 g/dL 11.6-15 718-7) HCT (test code = 40.5 % 35.7-45.2 4544-3) MCV (test code = 93.1 fL 80.6-95.5 787-2) MCH (test code = 31.3 pg 25.9-32.8 785-6) MCHC (test code = 33.6 g/dL 31.6-35.1 786-4) RDW-SD (test code = 42.0 fL 39-49.9 79759-0) RDW-CV (test code = 12.2 % 12-15.5 788-0) PLT (test code = See_Comment [Automated 777-3) message] The sy stem which generated this result transmitted reference range : 166 - 358 10*3/ ?L. The reference r manav was not used to interpret this result as normal/abnormal . MPV (test code = 9.6 fL 9.5-12.9 38739-1) NRBC/100 WBC (test See_Comment [Automat ed code = 4490052021) message] The system which generated this result transmitted reference range : 0.0 - 10.0 /100 WBCs. The refer ence range was not u sed to interpret th is result as normal/abnormal . NRBC x10^3 (test code See_Comment [Auto mated = [id number]) message] The s ystem which generated this result transmitted reference range : 10*3/?L. The reference range was not used to interpret this result as normal/abnormal . GRAN MAT (NEUT) % 66.2 % (test code = 770-8) IMM GRAN % (test code 0.20 % = 6519020955) LYMPH % (test code = 19.5 % 736-9) MONO % (test code = 7.0 % 5905-5) EOS % (test code = 5.7 % 713-8) BASO % (test code = 1.4 % 706-2) GRAN MAT x10^3(ANC) 5.56 10*3/uL 1.88-7.09 (test code = 8676909878) IMM GRAN x10^3 (test 0-0.06 code = 0977593613) LYMPH x10^3 (test code 1.64 10*3/uL 1.32-3.29 = 731-0) MONO x10^3 (test code 0.59 10*3/uL 0.33-0.92 = 742-7) EOS x10^3 (test code = 0.48 10*3/uL 0.03-0.39 H 711-2) BASO x10^3 (test code 0.12 10*3/uL 0.01-0.07 H = 704-7) Lab Interpretation Abnormal (test code = 62142-2) [facility]
[2021-10-19] MEDS ORDERED: NA CHLORIDE 0.9% 500 ML ONE (12:45)
[2021-10-19 12:56] LABS: Urine Blood Negative (Negative); Urine Glucose Negative (Negative); Urine Protein Negative (Negative)
--- NOTE | 2021-10-19 13:18 | RAD REPORT ---
EXAM DESCRIPTION: Janeth Single View10/19/2021 1:12 pm CLINICAL HISTORY: cough COMPARISON: August 2021 FINDINGS: The lungs appear clear of acute infiltrate. The heart is normal size Battery pack overlies the chest IMPRESSION: No acute abnormalities displayed
[2021-10-19 13:39] LABS: Absolute Lymphocytes (CBC) 1.3 K/uL (0.7-4.9); Hematocrit 35.9 % (36.0-45.0); Lymphocytes % 46.9 % (15.3-44.8); MCV 92.8 fL (80-100); MPV 8.2 fL (7.6-11.3); RBC Red Blood Cell Count 3.87 M/uL (3.86-4.86)
[2021-10-19 13:42] LABS: Protime INR 0.96
[2021-10-19] MEDS ORDERED: FAMOTIDINE 20 MG/2 ML VIAL IV ONE (13:46)
[2021-10-19 13:56] LABS: Albumin 3.4 g/dL (3.4-5.0); Bilirubin Direct 0.1 mg/dL (0-0.2); Bilirubin Total 0.4 mg/dL (0.2-1.0); Magnesium 2.2 mg/dL (1.8-2.4); Protein, Total 6.7 g/dL (6.4-8.2); Troponin High Sensitivity 8.2 pg/mL (<58.9)
--- NOTE | 2021-10-19 15:10 | EDPHYS ---
Physician Documentation [facility] Name: Madiha Breaux Age: 86 yrs Sex: Female : 1935 Arrival Date: 10/19/2021 Time: 12:01 Bed 14 Private MD: Darryl Nieto T ED Physician Hao Joyce HPI: 10/19 15:04 This 86 yrs old Female presents to ER via Wheelchair with complaints of salvador COVID+, Doesn't Feel Right. 15:04 This 86 yrs old Female presents to ER via Wheelchair with complaints of salvador COVID+, Doesn't Feel Right. 15:04 WEAK , COVID ON DAY 5 WITH SYMPTOMS, ON PAXLOVID. The patient or guardian reports salvador cough, that is intermittent. Onset: The symptoms/episode began/occurred 3 day(s) ago. Severity of symptoms: At their worst the symptoms were mild, in the emergency department the symptoms are unchanged. Modifying factors: The symptoms are alleviated by nothing, the symptoms are aggravated by nothing. Associated signs and symptoms: Pertinent positives: diarrhea. Severity of symptoms: At their worst the symptoms were mild in the emergency department the symptoms are unchanged. The patient has not experienced similar symptoms in the past. Historical: - Allergies: 12:42 Codeine; bm7 12:42 Demerol; bm7 12:42 lamital; bm7 12:42 PENICILLINS; bm7 12:42 Sulfa (Sulfonamide Antibiotics); bm7 12:42 PORK/PORCINE PRODUCT DERIVATIVES; bm7 12:42 Fentanyl; bm7 12:42 [place]; bm7 - Home Meds: 12:42 amlodipine 5 mg tab 1 tab once daily [Active]; atorvastatin Oral [Active]; budesonide bm7 Oral [Active]; duloxetine 60 mg Oral cpDR 1 cap once daily [Active]; omeprazole 20 mg Oral TbEC [Active]; Hydralazine Oral [Active]; primidone 50 mg Oral tab [Active]; pramipexole 1 mg Oral tab 3 times per day [Active]; tamsulosin 0.4 mg Oral cp24 1 cap once daily [Active]; ropinirole 1 mg Oral tab 3 times per day [Active]; Potassium Chloride Oral [Active]; lisinopril 20 mg Oral tab 1 tab once daily [Active]; hydroxyzine HCl 25 mg Oral tab [Active]; clonazepam 0.5 mg Oral tab [Active]; - PMHx: 12:42 Congestive heart failure; CVA; Hyperlipidemia; Hypertension; Hyperlipidemia; Myocardial bm7 infarction; Parkinsons; PTSD; - Immunization history:: Adult Immunizations up to date, Client reports having NOT received the Covid vaccine. - Social history:: Smoking status: Patient denies any tobacco usage or history of. - Family history:: not pertinent. ROS: 15:04 Constitutional: Negative for fever, chills, and weight loss, Eyes: Negative for injury, salvador pain, redness, and discharge, ENT: Negative for injury, pain, and discharge, Neck: Negative for injury, pain, and swelling, Cardiovascular: Negative for chest pain, palpitations, and edema, Respiratory: Negative for shortness of breath, cough, wheezing, and pleuritic chest pain, Abdomen/GI: Negative for abdominal pain, nausea, vomiting, diarrhea, and constipation, Back: Negative for injury and pain, : Negative for injury, bleeding, discharge, and swelling, MS/Extremity: Negative for injury and deformity, Skin: Negative for injury, rash, and discoloration, Neuro: Negative for headache, weakness, numbness, tingling, and seizure, Psych: Negative for depression, anxiety, suicide ideation, homicidal ideation, and hallucinations, Allergy/Immunology: Negative for hives, rash, and allergies, Endocrine: Negative for neck swelling, polydipsia, polyuria, polyphagia, and marked weight changes, Hematologic/Lymphatic: Negative for swollen nodes, abnormal bleeding, and unusual bruising. Exam: 15:04 Constitutional: This is a well developed, well nourished patient who is awake, alert, salvador and in no acute distress. Head/Face: Normocephalic, atraumatic. Eyes: Pupils equal round and reactive to light, extra-ocular motions intact. Lids and lashes normal. Conjunctiva and sclera are non-icteric and not injected. Cornea within normal limits. Periorbital areas with no swelling, redness, or edema. ENT: Nares patent. No nasal discharge, no septal abnormalities noted. Tympanic membranes are normal and external auditory canals are clear. Oropharynx with no redness, swelling, or masses, exudates, or evidence of obstruction, uvula midline. Mucous membranes moist. Neck: Trachea midline, no thyromegaly or masses palpated, and no cervical lymphadenopathy. Supple, full range of motion without nuchal rigidity, or vertebral point tenderness. No Meningismus. Chest/axilla: Normal chest wall appearance and motion. Nontender with no deformity. No lesions are appreciated. Cardiovascular: Regular rate and rhythm with a normal S1 and S2. No gallops, murmurs, or rubs. Normal PMI, no JVD. No pulse deficits. Respiratory: Lungs have equal breath sounds bilaterally, clear to auscultation and percussion. No rales, rhonchi or wheezes noted. No increased work of breathing, no retractions or nasal flaring. Abdomen/GI: Soft, non-tender, with normal bowel sounds. No distension or tympany. No guarding or rebound. No evidence of tenderness throughout. Back: No spinal tenderness. No costovertebral tenderness. Full range of motion. Female : Normal external genitalia. Skin: Warm, dry with normal turgor. Normal color with no rashes, no lesions, and no evidence of cellulitis. MS/ Extremity: Pulses equal, no cyanosis. Neurovascular intact. Full, normal range of motion. Neuro: Awake and alert, GCS 15, oriented to person, place, time, and situation. Cranial nerves II-XII grossly intact. Motor strength 5/5 in all extremities. Sensory grossly intact. Cerebellar exam normal. Normal gait. Psych: Awake, alert, with orientation to person, place and time. Behavior, mood, and affect are within normal limits. 15:04 ECG was reviewed by the Attending Physician. Vital Signs: 12:36 BP 151 / 59; Pulse 54; Resp 16; Temp 98.7(O); Pulse Ox 95% on R/A; Weight 54.43 kg (R); bm7 Height 5 ft. 4 in. (162.56 cm); Pain 5/10; 14:00 BP 158 / 54; Pulse 50; Resp 17; Pulse Ox 96% ; bp 15:55 BP 173 / 52; Pulse 51; Resp 15; Pulse Ox 96% ; bp 12:36 Body Mass Index 20.60 (54.43 kg, 162.56 cm) bm7 MDM: 12:30 Patient medically screened. salvador 15:13 Differential Diagnosis sepsis, flu, Bronchitis Influenza Upper Respiratory Infection salvador Pharyngitis. Data reviewed: vital signs, nurses notes, lab test result(s), EKG, radiologic studies, plain films. 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 Test interpretation: by ED physician or midlevel provider: ECG, plain radiologic studies. Counseling: I had a detailed discussion with the patient and/or guardian regarding: the historical points, exam findings, and any diagnostic results supporting the discharge/admit diagnosis, lab results, radiology results, the need for outpatient follow up, for definitive care, a family practitioner, a fried cake maker. 10/19 12:32 Order name: Basic Metabolic Panel; Complete Time: 14:31 [facility] 10/19 12:32 Order name: CBC with Diff [facility] 10/19 12:32 Order name: D-Dimer; Complete Time: 14:31 [facility] 10/19 12:32 Order name: LFT's; Complete Time: 14:31 [facility] 10/19 12:32 Order name: Magnesium; Complete Time: 14:31 [facility] 10/19 12:32 Order name: NT PRO-BNP; Complete Time: 14:31 [facility] 10/19 12:32 Order name: PT-INR; Complete Time: 14:31 [facility] 10/19 12:32 Order name: Troponin HS; Complete Time: 14:31 [facility] 10/19 12:32 Order name: XRAY Chest (1 view); Complete Time: 14:31 [facility] 10/19 12:32 Order name: Lipase; Complete Time: 14:31 [facility] 10/19 12:56 Order name: Urine Dipstick-Ancillary; Complete Time: 14:31 [facility] 10/19 15:14 Order name: Manual Differential [facility] 10/19 12:32 Order name: EKG; Complete Time: 12:33 [facility] 10/19 12:32 Order name: Cardiac monitoring; Complete Time: 13:01 [facility] 10/19 12:32 Order name: EKG - Nurse/Tech; Complete Time: 13: [facility] 10/19 12:32 Order name: IV Saline Lock; Complete Time: 13:18 [facility] 10/19 12:32 Order name: Labs collected and sent; Complete Time: 13:18 [facility] 10/19 12:32 Order name: O2 Per Protocol; Complete Time: 13:18 [facility] 10/19 12:32 Order name: O2 Sat Monitoring; Complete Time: 13:18 [facility] 10/19 12:32 Order name: Urine Dipstick-Ancillary (obtain specimen); Complete Time: 13:18 [facility] 10/19 15:04 Order name: Sharon. Order: BEBTELOVIMAB; Complete Time: 15:36 [facility] EC:04 Rate is 52 beats/min. Rhythm is regular. QRS [place] is Normal. CO interval is prolonged [facility] at 294 msec. QRS interval is normal. QT interval is normal. No Q waves. T waves are Normal. No ST changes noted. Clinical impression: NSR w/ Non-specific ST/T Changes and No evidence of ischemia. Interpreted by me. Reviewed by me. Administered Medications: 13:15 Drug: Pepcid (famotidine) 40 mg Route: IVP; Site: right forearm; bp 15:19 Follow up: Response: Pain is decreased bp 13:15 Drug: NS 0.9% 1000 ml Route: IV; Rate: 125 ml/hr; Site: right forearm; bp 15:19 Follow up: IV Status: Completed infusion; IV Intake: 1000ml bp Disposition Summary: 10/19/21 15:10 Discharge Ordered Location: Home [facility] Problem: new [facility] Symptoms: have improved [facility] Condition: Stable salvador Diagnosis - Coronavirus infection, unspecified salvador - SARS-associated coronavirus as the cause of diseases classified elsewhere salvador - Diarrhea, unspecified - RECENT C DIFF salvador Followup: [facility] - With: Darryl Nieto MD - When: 2 - 3 days - Reason: Recheck today's complaints, Continuance of care, Re-evaluation by your physician Discharge Instructions: - Discharge Summary Sheet [facility] - Food Choices to Help Relieve Diarrhea, Adult [facility] - Diarrhea, Adult salvador - Upper Respiratory Infection, Adult salvador - Upper Respiratory Infection, Adult, [id number] [facility] - Diarrhea, Adult, [id number] [facility] - COVID-19 [facility] - Things to Know about the COVID-19 Pandemic - [facility] - 10 Things You Can Do to Manage Your COVID-19 Symptoms at Home - [facility] - Viral Illness, Adult [facility] - COVID-19: Quarantine vs. Isolation - [facility] - Prevent the Spread of COVID-19 if You Are Sick - [facility] Forms: - Medication Reconciliation Form [facility] - Thank You Letter [facility] - Antibiotic Education [facility] - Prescription Opioid Use [facility] Prescriptions: - budesonide 180 mcg/actuation Inhalation aerosol powdr breath activated - inhale 2 puff by INHALATION route 2 times per day; 1 Pump; Refills: 0, Product salvador Selection Permitted - Pepcid 20 mg Oral Tablet - take 1 tablet by ORAL route every 12 hours for 30 days; 60 tablet; Refills: 0, [facility] Product Selection Permitted - Tessalon Perles 100 mg Oral Capsule - take 2 capsule by ORAL route every 8 hours As needed; 30 capsule; Refills: 0, [facility] Product Selection Permitted - Prednisone 20 mg Oral Tablet - take 2 tablets by ORAL route once daily for 5 days; 10 tablet; Refills: 0, [facility] Product Selection Permitted Signatures: Dispatcher [employer] EDHao Rios MD MD cha Peltier, Brian, RN RN Sheeba Pandya RN RN bm7
--- NOTE | 2021-10-19 15:10 | ER ---
Nurse's Notes [facility] Name: Madiha Breaux Age: 86 yrs Sex: Female : 1935 Arrival Date: 10/19/2021 Time: 12:01 Bed 14 Private MD: Darryl Nieto T Diagnosis: Coronavirus infection, unspecified;SARS-associated coronavirus as the cause of diseases classified elsewhere;Diarrhea, unspecified-RECENT C DIFF Presentation: 10/19 12:36 Chief complaint: Patient's son or daughter states: She went to [address] and diagnosed with COVID and they gave her the COVID shot to help but she is getting worse and she is very weak and has been having bad diarrhea. She just finished her medication from getting CDIFF too. Coronavirus screen: Client presents with at least one sign or symptom that may indicate coronavirus-19. Standard/surgical mask placed on the client. Ebola Screen: No symptoms or risks identified at this time. Initial Sepsis Screen: Does the patient meet any 2 criteria? No. Patient's initial sepsis screen is negative. Does the patient have a suspected source of infection? Yes: Other: cdiff and possible cough. Risk Assessment: Do you want to hurt yourself or someone else? Patient reports no desire to harm self or others. Note pt is wearing a continuous heart monitor that gets taken off next week. Onset of symptoms was October 15, 2021. Care prior to arrival: None. 12:36 Method Of Arrival: Wheelchair [facility] 12:36 Acuity: DAMIR 3 [facility] Triage Assessment: 12:42 General: Appears in no apparent distress. comfortable, Behavior is calm, cooperative, 7 appropriate for age. Pain: Complains of pain in chest Pain does not radiate. EENT: No deficits noted. No signs and/or symptoms were reported regarding the EENT system. Neuro: No deficits noted. Cardiovascular: Chest pain is described as vague. Respiratory: Reports cough that is non-productive, dry, hacking, persistent pain with cough pain with respiration Airway is patent Respiratory effort is even, unlabored, Respiratory pattern is regular, symmetrical, Breath sounds are coarse bilaterally. GI: No deficits noted. No signs and/or symptoms were reported involving the gastrointestinal system. : No deficits noted. No signs and/or symptoms were reported regarding the genitourinary system. Derm: No deficits noted. No signs and/or symptoms reported regarding the dermatologic system. Musculoskeletal: No deficits noted. No signs and/or symptoms reported regarding the musculoskeletal system. Historical: - Allergies: 12:42 Codeine; bm7 12:42 Demerol; bm7 12:42 lamital; bm7 12:42 PENICILLINS; bm7 12:42 Sulfa (Sulfonamide Antibiotics); bm7 12:42 PORK/PORCINE PRODUCT DERIVATIVES; bm7 12:42 Fentanyl; bm7 12:42 [place]; bm7 - Home Meds: 12:42 amlodipine 5 mg tab 1 tab once daily [Active]; atorvastatin Oral [Active]; budesonide bm7 Oral [Active]; duloxetine 60 mg Oral cpDR 1 cap once daily [Active]; omeprazole 20 mg Oral TbEC [Active]; Hydralazine Oral [Active]; primidone 50 mg Oral tab [Active]; pramipexole 1 mg Oral tab 3 times per day [Active]; tamsulosin 0.4 mg Oral cp24 1 cap once daily [Active]; ropinirole 1 mg Oral tab 3 times per day [Active]; Potassium Chloride Oral [Active]; lisinopril 20 mg Oral tab 1 tab once daily [Active]; hydroxyzine HCl 25 mg Oral tab [Active]; clonazepam 0.5 mg Oral tab [Active]; - PMHx: 12:42 Congestive heart failure; CVA; Hyperlipidemia; Hypertension; Hyperlipidemia; Myocardial bm7 infarction; Parkinsons; PTSD; - Immunization history:: Adult Immunizations up to date, Client reports having NOT received the Covid vaccine. - Social history:: Smoking status: Patient denies any tobacco usage or history of. - Family history:: not pertinent. Screenin:45 Abuse screen: Denies threats or abuse. Denies injuries from another. Nutritional bp screening: No deficits noted. Tuberculosis screening: No symptoms or risk factors identified. Fall Risk None identified. Assessment: 12:45 General: SEE TRIAGE NOTE. bp 14:00 Reassessment: No changes from previously documented assessment. Patient and/or family bp updated on plan of care and expected duration. Pain level reassessed. 15:56 Reassessment: DC HOME WITH FAMILY. bp Vital Signs: 12:36 BP 151 / 59; Pulse 54; Resp 16; Temp 98.7(O); Pulse Ox 95% on R/A; Weight 54.43 kg (R); bm7 Height 5 ft. 4 in. (162.56 cm); Pain 5/10; 14:00 BP 158 / 54; Pulse 50; Resp 17; Pulse Ox 96% ; bp 15:55 BP 173 / 52; Pulse 51; Resp 15; Pulse Ox 96% ; bp 12:36 Body Mass Index 20.60 (54.43 kg, 162.56 cm) bm7 ED Course: 12:01 Patient arrived in ED. am2 12:02 Darryl Nieto MD is Private Physician. am2 12:23 Seth Morse, AMY is Primary Nurse. bp 12:30 Hao Joyce MD is Attending Physician. salvador 12:42 Triage completed. bm7 12:42 Arm band placed on right wrist. bm7 12:45 Patient has correct armband on for positive identification. Bed in low position. Call bp light in reach. Side rails up X2. Adult w/ patient. 13:01 EKG done, by ED staff, reviewed by Hao Joyce MD. 7 13:14 XRAY Chest (1 view) In Process Unspecified. EDMS 13:15 Inserted saline lock: 22 gauge in right forearm, using aseptic technique. Blood bp collected. 15:09 Darryl Nieto MD is Referral Physician. salvador 15:56 No provider procedures requiring assistance completed. IV discontinued, intact, bp bleeding controlled, No redness/swelling at site. Pressure dressing applied. Administered Medications: 13:15 Drug: Pepcid (famotidine) 40 mg Route: IVP; Site: right forearm; bp 15:19 Follow up: Response: Pain is decreased bp 13:15 Drug: NS 0.9% 1000 ml Route: IV; Rate: 125 ml/hr; Site: right forearm; bp 15:19 Follow up: IV Status: Completed infusion; IV Intake: 1000ml bp Medication: 15:56 VIS not applicable for this client. bp Intake: 15:19 IV: 1000ml; Total: 1000ml. bp Outcome: 15:10 Discharge ordered by . salvador 15:56 Discharged to home via wheelchair, with family. bp 15:56 Condition: stable 15:56 Discharge instructions given to patient, Instructed on discharge instructions, follow up and referral plans. medication usage, Demonstrated understanding of instructions, follow-up care, medications, Prescriptions given X 3. 15:57 Patient left the ED. bp Signatures: Dispatcher [employer] EDMS Hao Joyce MD MD cha Moreno, Amanda am2 Peltier, Brian, RN RN Sheeba Pandya RN RN 7 Lesley Samuel 7
[2021-10-19 15:14] LABS: Blood Morphology Comment NOT SEEN (NOT SEEN); Platelet Estimate ADEQ
[2021-10-19] MEDS ORDERED: BEBTELOVIMAB 175 MG/2 ML VIAL IV ONE (15:32)
[2021-10-19 16:10] VITALS: TEMP 98.7
[2021-10-19 16:20] VITALS: O2SAT 96
[2021-10-19 16:35] VITALS: BP 173/52
--- NOTE | 2021-10-20 15:41 | EKG ---
Test Date: 2021-10-19 Test Time: 13:01:21 Coat Presser: MB MEASUREMENT RESULTS: Intervals: Rate: 52 ME: 294 QRSD: 74 QT: 458 QTc: 425 [place]: P: 79 ME: 294 QRS: -62 T: 60 INTERPRETIVE STATEMENTS: Sinus bradycardia with 1st degree AV block with premature atrial complexes Left anterior fascicular block Anteroseptal infarct, age undetermined Abnormal ECG Compared to ECG 08/25/2021 14:25:07 Atrial premature complex(es) now present Left anterior fascicular block now present Sinus rhythm no longer present Left-axis deviation no longer present Myocardial infarct finding still present Electronically Signed On 10-20-21 15:38:57 CDT by Chris Strauss
== END 2021-10-19 15:57 | disposition home or self-care (01) ==
LOC: ER 11:51
DX: U07.1 COVID-19 (principal); R19.7 Diarrhea, unspecified; I10 Essential (primary) hypertension; G20 Parkinson's disease; Z86.73 Personal history of transient ischemic attack (TIA), and cerebral infarction without residual deficits; Z88.0 Allergy status to penicillin; Z88.2 Allergy status to sulfonamides; Z88.5 Allergy status to narcotic agent; Z91.014 Allergy to mammalian meats
CPT/HCPCS: 96361; 93005; 85025; 80048; 36415; 83735; 85610; 85379; 80076; 81003; 84484; 83690; 83880; 71045; 96374; 99284; J7040

== ENCOUNTER 2022-07-28 06:54 | Emergency (ER) | payer OTHER ==
--- OUTSIDE RECORDS SUMMARY | 2022-07-28 06:59 | XMS REPORT | Continuity of Care Document ---
:1935 Author Organization [facility] t Address [address] [facility]. [address] [place] [address] Care Team Providers Name Role Phone DENNIS HARRIS Primary Care Physician Unavailable LAWANDA ALCARAZ Attending Clinician Unavailable LAWANDA ALCARAZ Attending Clinician Unavailable Doctor Unassigned, [place] Attending Clinician Unavailable Therapist, Ad[facility] Respiratory Attending Clinician Unavailable Una Beltran MD Attending Clinician UNA BELTRAN Attending Clinician Unavailable DANG ESTRELLA Attending Clinician Unavailable Dang Estrella MD Attending Clinician MICHA LYNNE Attending Clinician Unavailable MICHA LYNNE Attending Clinician Unavailable Katya Baum RN Attending Clinician Unavailable Brittanie Sepulveda Attending Clinician Padma Abraham MD Attending Clinician MAO Attending Clinician Unavailable DANG ESTRELLA Admitting Clinician Unavailable Dang Estrella MD Admitting Clinician MICHA LYNNE Admitting Clinician Unavailable Padma Abraham MD Admitting Clinician MAO Admitting Clinician Unavailable Payers Payer Name Policy Type Policy Number Effective Date Expiration Date S ource Problems Condition Condition Condition Status Onset Resolution Last Treating Co mments Source Name Details Category Date Date Treatment Clinician Date Rectal Rectal Disease Active Univers bleeding bleeding 8-26 ity of 00:00: [address] Allergies, Adverse Reactions, Alerts Allergy Allergy Status [...] 00 Medical Branch SULFA Drug Active Other-Cmnt 0 Univer s (SULFONA Class - ity of MIDE 00:00: [place] ANTIBIOT 00 Medical ICS) Branch CODEINE DRUG Active N/V Univers INGREDI 8-26 ity of 00:00: [place] 00 Medical Branch TRAMADOL DRUG Active Med N/V 2017-02 Univers INGREDI 0-30 ity of 00:00: [place] 00 Medical Branch Tramadol Propensi Active Nausea 2017-02 [place] Uni vers ty to and/or 0-30 tions ity of adverse Vomiting 00:00: [place] reaction 00 Medical s Branch NO KNOWN Drug Active Univers ALLERGIE Class ity of S [facility] Social History Social Habit Start Date Stop Date Quantity Comments Source History of Cigarette Smoker Universi ty of tobacco use [facility] Exposure to 2022-04-04 2022-04-14 Not sure [facility] SARS-CoV-2 00:00:00 12:01:00 [facility] (event) [place] Alcohol intake 2022-01-14 2022-01-14 Ex-drinker [facility] 00:00:00 00:00:00 (finding) [facility] Tobacco use and 2022-01-08 2022-01-08 Smokeless tobacco Un iversity of exposure 00:00:00 00:00:00 non-user [place] [facility] History SDOH Food 2021-10-06 2021-10-06 1 Univers ity of Worry 00:00:00 00:00:00 [place] [facility] History SDOH Food 2021-10-06 2021-10-06 1 Univers ity of Scarcity 00:00:00 00:00:00 [place] [facility] History SDOH 2021-10-06 2021-10-06 2 University o f Transport Med 00:00:00 00:00:00 [place] [facility] History SDOH 2021-10-06 2021-10-06 2 University o f Transport Non-Med 00:00:00 00:00:00 [facility] edical Branch Sex Assigned At [birth year] Universit y of 00:00:00 00:00:00 [facility] Smoking Status Start Date Stop Date Source Never smoked tobacco [facility] Ex-smoker 2021-10-02 00:00:00 2021-10-02 00:00:00 Universi ty of [facility] Medications Ordered Filled Start Stop Current Ordering Indication Dosage Frequency Signature Comments Components Source Medication Medication Date Date Medication? Clinician (SIG) Name Name water for 2022-1 2022- No PRN, Univers irrigation 2-08 18- Starting ity of [place] 16:37: 17:56 on Tue [place] solution 00 :43 01/13/22 at Medic al 1037, Branch Until Tue01/13/22 at 1156, Routine, Intra-op simethicone 2021-02- No PRN, Unive rs (GAS RELIEF 03-16 Starting ity of (SIMETHICON 16:37: 17:56 on Tue Jeremías as E)) 40 00 :43 01/13/22 at Medical mg/0.6 mL 1037, Branch drops Until Tue01/13/22 at 1156, Routine, Intra-op lactated 2021-02- [facility] 2- 12-07 mL/hr, ity of infusion 16:15: 16:10 1,000 mL, Jeremías as 1,000 mL 00 :00 IV Medical Infusion, Branch ONCE, 1 dose, On Tue01/13/22 at 1015, Routine, DSU Pre-op lactated 2021-02- No 1000[facility] 2- 12-07 mL/hr, ity of infusion 16:15: 16:10 1,000 mL, Jeremías as 1,000 mL 00 :00 IV Medical Infusion, Branch ONCE, 1 dose, On Tue01/13/22 at 1015, Routine, DSU Pre-op zolpidem 5 2021-02 Yes 5mg Take 5 mg Un aziza mg tablet 2-07 by mouth ity of 13:24: at [place] [address] bedtime. Medical Branch brexpiprazo 2021-02 Yes 1mg Take 1 mg U nivers le 2-07 by mouth ity of (REXULTI) 1 13:24: [place]. [place] mg Tab 06 Medical Branch hydrALAZINE 2021-02 Yes 25mg Take 25 mg Univers 25 mg 2-07 by mouth ity of tablet 13:24: in the [place] [address] morning Medical and 25 mg Branch in the evening. FLUoxetine 2021-02 Yes 20mg Take 20 mg U nivers 20 mg 2-07 by mouth ity of capsule 13:24: in the [place] [address] morning. Medical Branch atorvastati 2021-02 Yes 10mg Take 10 mg Univers n 10 mg 2-07 by mouth ity of tablet 13:24: at [place] [address] bedtime. Medical Branch albuterol 2021-02 Yes 1{ampul Inhale 1 U nivers 0.63 mg/3 2-07 e} Ampule as ity o f mL 13:24: needed. [place] nebulizer 06 Medical solution Branch albuterol 2021-02 Yes 2{puff} Inhale 2 U nivers 90 2-07 Puffs as ity of mcg/actuati 13:24: needed. Jeremías as on inhaler 06 Medical Branch ARIPiprazol 2021-02 Yes 2mg Take 2 mg U nivers e 2 mg 2-07 by mouth ity of tablet 13:24: in the [place] 06 morning. Medical Branch carvediloL 2021-02 Yes 3.125mg Take 3.125 Univers 3.125 mg 2-07 mg by ity of tablet 13:24: mouth in [place] 06 the Medical morning Branch and 3.125 mg in the evening. Take with meals. furosemide 2021-02 Yes 10mg Take 10 mg U nivers 20 mg 2-07 by mouth ity of tablet 13:24: every [place] [address] other day. Medical Branch apixaban 2021-02 Yes 2.5mg Take 2.5 Univ ers (ELIQUIS) 2-07 mg by ity of 2.5 mg 13:24: mouth in [place] [facility] 06 the Medical morning Branch and 2.5 mg in the evening. zolpidem 5 2021-02 Yes 5mg Take 5 mg Un aziza mg tablet 2-07 by mouth ity of 13:24: at [place] [address] bedtime. Medical Branch brexpiprazo 2021-02 Yes 1mg Take 1 mg U nivers le 2-07 by mouth ity of (REXULTI) 1 13:24: [place]. [place] mg Tab Medical Branch hydrALAZINE 2021-02 Yes 25mg Take 25 mg Univers 25 mg 2-07 by mouth ity of tablet 13:24: in the [place] 06 morning Medical and 25 mg Branch in the evening. FLUoxetine 2021-02 Yes 20mg Take 20 mg U nivers 20 mg 2-07 by mouth ity of capsule 13:24: in the [place] 06 morning. Medical Branch atorvastati 2021-02 Yes 10mg Take 10 mg Univers n 10 mg 2-07 by mouth ity of tablet 13:24: at [place] [address] bedtime. Medical Branch albuterol 2021-02 Yes 1{ampul Inhale 1 U nivers 0.63 mg/3 2-07 e} Ampule as ity o f mL 13:24: needed. [place] nebulizer 06 Medical solution Branch albuterol 2021-02 Yes 2{puff} Inhale 2 U nivers 90 2-07 Puffs as ity of mcg/actuati 13:24: needed. Jeremías as on inhaler 06 Medical Branch ARIPiprazol 2021-02 Yes 2mg Take 2 mg U nivers e 2 mg 2-07 by mouth ity of tablet 13:24: in the [place] [address] morning. Medical Branch carvediloL 2021-02 Yes 3.125mg Take 3.125 Univers 3.125 mg 2-07 mg by ity of tablet 13:24: mouth in [place] 06 the Medical morning Branch and 3.125 mg in the evening. Take with meals. furosemide 2021-02 Yes 10mg Take 10 mg U nivers 20 mg 2-07 by mouth ity of tablet 13:24: every [place] [address] other day. Medical Branch apixaban 2021-02 Yes 2.5mg Take 2.5 Univ ers (ELIQUIS) 2-07 mg by ity of 2.5 mg 13:24: mouth in [facility] 06 the Medical morning Branch and 2.5 mg in the evening. zolpidem 5 2021-02 Yes 5mg Take 5 mg Un aziza mg tablet 2-07 by mouth ity of 13:24: at [place] [address] bedtime. Medical Branch brexpiprazo 2021-02 Yes 1mg Take 1 mg U nivers le 2-07 by mouth ity of (REXULTI) 1 13:24: daily. [place] mg Tab Medical Branch hydrALAZINE 2021-02 Yes 25mg Take 25 mg Univers 25 mg 2-07 by mouth ity of tablet 13:24: in the [place] 06 morning Medical and 25 mg Branch in the evening. FLUoxetine 2021-02 Yes 20mg Take 20 mg U nivers 20 mg 2-07 by mouth ity of capsule 13:24: in the [place] [address] morning. Medical Branch atorvastati 2021-02 Yes 10mg Take 10 mg Univers n 10 mg 2-07 by mouth ity of tablet 13:24: at [place] [address] bedtime. Medical Branch albuterol 2021-02 Yes 1{ampul Inhale 1 U nivers 0.63 mg/3 2-07 e} Ampule as ity o f mL 13:24: needed. [place] nebulizer 06 Medical [facility] Branch albuterol 2021-02 Yes 2{puff} Inhale 2 U nivers 90 2-07 Puffs as ity of mcg/actuati 13:24: needed. Jeremías as on inhaler 06 Medical Branch ARIPiprazol 2021-02 Yes 2mg Take 2 mg U nivers e 2 mg 2-07 by mouth ity of tablet 13:24: in the [place] [address] morning. Medical Branch carvediloL 2021-02 Yes 3.125mg Take 3.125 Univers 3.125 mg 2-07 mg by ity of tablet 13:24: mouth in [place] 06 the Medical morning Branch and 3.125 mg in the evening. Take with meals. furosemide 2021-02 Yes 10mg Take 10 mg U nivers 20 mg 2-07 by mouth ity of tablet 13:24: every [place] [address] other day. Medical Branch apixaban 2021-02 Yes 2.5mg Take 2.5 Univ ers (ELIQUIS) 2-07 mg by ity of 2.5 mg 13:24: mouth in [facility] 06 the Medical morning Branch and 2.5 mg in the evening. zolpidem 5 2021-02 Yes 5mg Take 5 mg Un aziza mg tablet 2-07 by mouth ity of 13:24: at [place] [address] bedtime. Medical Branch brexpiprazo 2021-02 Yes 1mg Take 1 mg U nivers le 2-07 by mouth ity of (REXULTI) 1 13:24: [place]. [place] mg Tab Medical Branch hydrALAZINE 2021-02 Yes 25mg Take 25 mg Univers 25 mg 2-07 by mouth ity of tablet 13:24: in the [place] [address] morning Medical and 25 mg Branch in the evening. FLUoxetine 2021-02 Yes 20mg Take 20 mg U nivers 20 mg 2-07 by mouth ity of capsule 13:24: in the [place] [address] morning. Medical Branch atorvastati 2021-02 Yes 10mg Take 10 mg Univers n 10 mg 2-07 by mouth ity of tablet 13:24: at [place] [address] bedtime. Medical Branch albuterol 2021-02 Yes 1{ampul Inhale 1 U nivers 0.63 mg/3 2-07 e} Ampule as ity o f mL 13:24: needed. [place] nebulizer 06 Medical [facility] Branch albuterol 2021-02 Yes 2{puff} Inhale 2 U nivers 90 2-07 Puffs as ity of mcg/actuati 13:24: needed. Jeremías as on inhaler Medical Branch ARIPiprazol 2021-02 Yes 2mg Take 2 mg U nivers e 2 mg 2-07 by mouth ity of tablet 13:24: in the [place] [address] morning. Medical Branch carvediloL 2021-02 Yes 3.125mg Take 3.125 Univers 3.125 mg 2-07 mg by ity of tablet 13:24: mouth in [place] the Medical morning Branch and 3.125 mg in the evening. Take with meals. furosemide 2021-02 Yes 10mg Take 10 mg U nivers 20 mg 2-07 by mouth ity of tablet 13:24: every [place] [address] other day. Medical Branch apixaban 2021-02 Yes 2.5mg Take 2.5 Univ ers (ELIQUIS) 2-07 mg by ity of 2.5 mg 13:24: mouth in [place] [address] the Medical morning Branch and 2.5 mg in the evening. zolpidem 5 2021-02 Yes 5mg Take 5 mg Un aziza mg tablet 2-07 by mouth ity of 13:24: at [place] [address] bedtime. Medical Branch brexpiprazo 2021-02 Yes 1mg Take 1 mg U nivers le 2-07 by mouth ity of (REXULTI) 1 13:24: [place]. [place] mg Tab Medical Branch hydrALAZINE 2021-02 Yes 25mg Take 25 mg Univers 25 mg 2-07 by mouth ity of tablet 13:24: in the [place] [address] morning Medical and 25 mg Branch in the evening. FLUoxetine 2021-02 Yes 20mg Take 20 mg U nivers 20 mg 2-07 by mouth ity of capsule 13:24: in the [place] [address] morning. Medical Branch atorvastati 2021-02 Yes 10mg Take 10 mg Univers n 10 mg 2-07 by mouth ity of tablet 13:24: at [place] [address] bedtime. Medical Branch albuterol 2021-02 Yes 1{ampul Inhale 1 U nivers 0.63 mg/3 2-07 e} Ampule as ity o f mL 13:24: needed. [place] nebulizer 06 Medical [facility] Branch albuterol 2021-02 Yes 2{puff} Inhale 2 U nivers 90 2-07 Puffs as ity of mcg/actuati 13:24: needed. Jeremías as on inhaler 06 Medical Branch ARIPiprazol 2021-02 Yes 2mg Take 2 mg U nivers e 2 mg 2-07 by mouth ity of tablet 13:24: in the [place] [address] morning. Medical Branch carvediloL 2021-02 Yes 3.125mg Take 3.125 Univers 3.125 mg 2-07 mg by ity of tablet 13:24: mouth in [place] 06 the Medical morning Branch and 3.125 mg in the evening. Take with meals. furosemide 2021-02 Yes 10mg Take 10 mg U nivers 20 mg 2-07 by mouth ity of tablet 13:24: every [place] [address] other day. Medical Branch apixaban 2021-02 Yes 2.5mg Take 2.5 Univ ers (ELIQUIS) 2-07 mg by ity of 2.5 mg 13:24: mouth in [facility] 06 the Medical morning Branch and 2.5 mg in the evening. zolpidem 5 2021-02 Yes 5mg Take 5 mg Un aziza mg tablet 2-07 by mouth ity of 13:24: at [place] [address] bedtime. Medical Branch brexpiprazo 2021-02 Yes 1mg Take 1 mg U nivers le 2-07 by mouth ity of (REXULTI) 1 13:24: [place]. [place] mg Tab Medical Branch hydrALAZINE 2021-02 Yes 25mg Take 25 mg Univers 25 mg 2-07 by mouth ity of tablet 13:24: in the [place] [address] morning Medical and 25 mg Branch in the evening. FLUoxetine 2021-02 Yes 20mg Take 20 mg U nivers 20 mg 2-07 by mouth ity of capsule 13:24: in the [place] [address] morning. Medical Branch atorvastati 2021-02 Yes 10mg Take 10 mg Univers n 10 mg 2-07 by mouth ity of tablet 13:24: at [place] [address] bedtime. Medical Branch albuterol 2021-02 Yes 1{ampul Inhale 1 U nivers 0.63 mg/3 2-07 e} Ampule as ity o f mL 13:24: needed. [place] nebulizer [address] [place] [address] Branch albuterol 2021-02 Yes 2{puff} Inhale 2 U nivers 90 2-07 Puffs as ity of mcg/actuati 13:24: needed. Jeremías as on inhaler 06 Medical Branch ARIPiprazol 2021-02 Yes 2mg Take 2 mg U nivers e 2 mg 2-07 by mouth ity of tablet 13:24: in the [place] 06 morning. Medical Branch carvediloL 2021-02 Yes 3.125mg Take 3.125 Univers 3.125 mg 2-07 mg by ity of tablet 13:24: mouth in [place] [address] the Medical morning Branch and 3.125 mg in the evening. Take with meals. furosemide 2021-02 Yes 10mg Take 10 mg U nivers 20 mg 2-07 by mouth ity of tablet 13:24: every [place] [address] other day. Medical Branch apixaban 2021-02 Yes 2.5mg Take 2.5 Univ ers (ELIQUIS) 2-07 mg by ity of 2.5 mg 13:24: mouth in [place] [address] the Medical morning Branch and 2.5 mg in the evening. methylpredn No 125mg 125 mg, U nivers isolone sod 10-16 Intravenou i ty of succ 02:47: 02:51 s, ONCE, 1 [place] (SOLU-MEDRO 00 :00 dose, On Medi carlyle L) [facility] 10/15/21 Branch injection at 2200, 2 125 mg mL acetaminoph 2021- No 1000mg 1,000 mg, Univers en 10-16 Oral, ONCE ity of (TYLENOL) 01:46: 02:07 NOW, 1 [place] tablet 00 :00 dose, On Medical 1,000 [...] Dora 10/15/21 at 2045, HIEU nirmatrelvi 2021- No [id number] 2{tbl} Take 2 Univers r-ritonavir 10-15 tablets by i ty of (PAXLOVID, 00:00: 04:59 [place] in [place] EU[place],) 00 :00 the Medical 150-100 mg morning Branch tablet and 2 tablets in the evening. Do all this for 5 days. bebtelovima 2021- No [id number] 175mg Inject 2 Univers b, No 10-15 mL as ity of Charge, 175 00:00: 04:59 directed [place] mg/2 mL 00 :00 once now Medical (87.5 for 1 Branch mg/mL) Soln dose. zolpidem Yes 5mg Take 5 mg Univ ers (AMBIEN) 5 8-29 by mouth ity o f mg tablet 17:52: at [place] [address] bedtime. Medical Branch brexpiprazo Yes 1mg Take 1 mg U nivers le 8-29 by mouth ity of (REXULTI) 1 17:52: daily. [place] mg Tab Medical Branch hydrALAZINE Yes 25mg Take 25 mg Univers 25 mg 8-29 by mouth ity of tablet 17:52: in the [place] [address] morning Medical and 25 mg Branch in the evening. FLUoxetine Yes 10mg Take 10 mg U nivers 10 mg 8-29 by mouth ity of capsule 17:52: in the [place] [address] morning. Medical Branch atorvastati 0 Yes 10mg Take 10 mg Univers n (LIPITOR) 8-29 by mouth ity of 10 mg 17:52: at [facility] 08 bedtime. Medical Branch zolpidem 0 Yes 5mg Take 5 mg Univ ers (AMBIEN) 5 8-29 by mouth ity o f mg tablet 17:52: at [place] 08 bedtime. Medical Branch brexpiprazo 0 Yes [...] mouth ity of capsule 17:52: in the [place] 08 morning. Medical Branch atorvastati 0 Yes 10mg Take 10 mg Univers n (LIPITOR) 8-29 by mouth ity of 10 mg 17:52: at [facility] 08 bedtime. Medical Branch zolpidem 0 Yes 5mg Take 5 mg Univ ers (AMBIEN) 5 8-29 by mouth ity o f mg tablet 17:52: at [place] [address] bedtime. Medical Branch brexpiprazo 0 Yes 1mg Take 1 mg U nivers le 8-29 by mouth ity of (REXULTI) 1 17:52: daily. [place] mg Tab Medical Branch hydrALAZINE 0 Yes 25mg Take 25 mg Univers 25 mg 8-29 by mouth ity of tablet 17:52: in the [place] 08 morning Medical and 25 mg Branch in the evening. FLUoxetine 2021-0 Yes 10mg Take 10 mg U nivers 10 mg 8-29 by mouth ity of capsule 17:52: in the [place] [address] morning. Medical Branch atorvastati 0 Yes 10mg Take 10 mg Univers n (LIPITOR) 8-29 by mouth ity of 10 mg 17:52: at [place] tablet 08 bedtime. Medical Branch zolpidem 2021-0 Yes 5mg Take 5 mg Univ ers (AMBIEN) 5 8-29 by mouth ity o f mg tablet 17:52: at [place] [address] bedtime. Medical Branch brexpiprazo 0 Yes 1mg Take 1 mg U nivers le 8-29 by mouth ity of (REXULTI) 1 17:52: daily. [place] mg Tab 08 Medical Branch hydrALAZINE 2021-0 Yes 25mg Take 25 mg Univers 25 mg 8-29 by mouth ity of tablet 17:52: in the [place] 08 morning Medical and 25 mg Branch in the evening. FLUoxetine 2021-0 Yes 10mg Take 10 mg U nivers 10 mg 8-29 by mouth ity of capsule 17:52: in the [place] 08 morning. Medical Branch atorvastati 2021-0 Yes 10mg Take 10 mg Univers n (LIPITOR) 8-29 by mouth ity of 10 mg 17:52: at [facility] 08 bedtime. Medical Branch zolpidem 2021-0 Yes 5mg Take 5 mg Univ ers (AMBIEN) 5 8-29 by mouth ity o f mg tablet 17:52: at [place] [address] bedtime. Medical Branch brexpiprazo 2021-0 Yes 1mg Take 1 mg U nivers le 8-29 by mouth ity of (REXULTI) 1 17:52: daily. [place] mg Tab 08 Medical Branch hydrALAZINE 2021-0 Yes 25mg Take 25 mg Univers 25 mg 8-29 by mouth ity of tablet 17:52: in the [place] 08 morning Medical and 25 mg Branch in the evening. FLUoxetine 2021-0 Yes 10mg Take 10 mg U nivers 10 mg 8-29 by mouth ity of capsule 17:52: in the [place] [address] morning. Medical Branch atorvastati 2021-0 Yes 10mg Take 10 mg Univers n (LIPITOR) 8-29 by mouth ity of 10 mg 17:52: at [facility] 08 bedtime. Medical Branch zolpidem 2021-0 Yes 5mg Take 5 mg Univ ers (AMBIEN) 5 8-29 by mouth ity o f mg tablet 17:52: at [place] [address] bedtime. Medical Branch brexpiprazo 2021-0 Yes 1mg Take 1 mg U nivers le 8-29 by mouth ity of (REXULTI) 1 17:52: daily. [place] mg Tab 08 Medical Branch hydrALAZINE 2021-0 Yes 25mg Take 25 mg Univers 25 mg 8-29 by mouth ity of tablet 17:52: in the [place] 08 morning Medical and 25 mg Branch in the evening. FLUoxetine 2-0 Yes 10mg Take 10 mg U nivers 10 mg 8-29 by mouth ity of capsule 17:52: in the [place] 08 morning. Medical Branch atorvastati Yes 10mg Take 10 mg Univers n (LIPITOR) - by mouth ity of 10 mg 17:52: at [place] tablet 08 bedtime. Medical Branch zolpidem 0 Yes 5mg Take 5 mg Univ ers (AMBIEN) 5 10-05 by mouth ity o f mg tablet 17:52: at [place] 08 bedtime. Medical Branch brexpiprazo Yes 1mg Take 1 mg U nivers le 10-05 by mouth ity of (REXULTI) 1 17:52: daily. [place] mg Tab 08 Medical Branch hydrALAZINE Yes 25mg Take 25 mg Univers 25 mg 8-29 by mouth ity of tablet 17:52: in the [place] 08 morning Medical and 25 mg Branch in the evening. FLUoxetine Yes 10mg Take 10 mg U nivers 10 mg 10-05 by mouth ity of capsule 17:52: in the [place] 08 morning. Medical Branch atorvastati Yes 10mg Take 10 mg Univers n (LIPITOR) 10-05 by mouth ity of 10 mg 17:52: at [place] tablet 08 bedtime. Medical Branch apixaban 2021- No 5mg Take 5 mg Uni vers (ELIQUIS) 5 10-05 by mouth ity of mg tablet 14:13: 00:00 in the [place] 20 :00 morning Medical and 5 mg Branch in the evening. apixaban Yes 2.5mg 2.5 mg, Unive rs (ELIQUIS) 10-05 Oral, BID, ity of tablet 2.5 01:00: First dose [place] mg 00 on Sun Medical 10/04/21 at Branch 1999, Until Discontinu ed, Routine
Indicatio ns: Non-Valvul ar Atrial Fibrillati on budesonide- Yes [id number] 2{puff} Inhale 2 Univers formoteroL 8-29 Puffs in ity o f 160-4.5 00:00: the [place] mcg/actuati 00 morning Medic al on inhaler and 2 Branch Puffs in the evening. vancomycin Yes [id number] 125mg Take 1 Univers 125 mg 8-29 capsule by ity of capsule 00:00: mouth 4 [place] ([facility]) Medical times Branch daily. budesonide- Yes [id number] 2{puff} Inhale 2 Univers formoteroL 8-29 Puffs in ity o f 160-4.5 00:00: the [place] mcg/actuati 00 morning Medic al on inhaler and 2 Branch Puffs in the evening. vancomycin Yes [id number] 125mg Take 1 Univers 125 mg 8-29 capsule by ity of capsule 00:00: mouth 4 [place] ([facility]) Medical times Branch daily. budesonide- Yes [id number] 2{puff} Inhale 2 Univers formoteroL 8-29 Puffs in ity o f 160-4.5 00:00: the [place] mcg/actuati 00 morning Medic al on inhaler and 2 Branch Puffs in the evening. vancomycin Yes [id number] 125mg Take 1 Univers 125 mg 8-29 capsule by ity of capsule 00:00: mouth 4 [place] ([facility]) Medical times Branch daily. budesonide- Yes [id number] 2{puff} Inhale 2 Univers formoteroL 8-29 Puffs in ity o f 160-4.5 00:00: the [place] mcg/actuati morning Medic al on inhaler and 2 Branch Puffs in the evening. vancomycin Yes [id number] 125mg Take 1 Univers 125 mg 8-29 capsule by ity of capsule 00:00: mouth 4 [place] ([facility]) Medical times Branch daily. budesonide- Yes [id number] 2{puff} Inhale 2 Univers formoteroL 8-29 Puffs in ity o f 160-4.5 00:00: the [place] mcg/actuati 00 morning Medic al on inhaler and 2 Branch Puffs in the evening. vancomycin 0 Yes [id number] 125mg Take 1 Univers 125 mg 8-29 capsule by ity of capsule 00:00: mouth 4 [place] ([facility]) Medical times Branch daily. budesonide- 0 Yes [id number] 2{puff} Inhale 2 Univers formoteroL 8-29 Puffs in ity o f 160-4.5 00:00: the [place] mcg/actuati 00 morning Medic al on inhaler and 2 Branch Puffs in the evening. vancomycin Yes [id number] 125mg Take 1 Univers 125 mg 8-29 capsule by ity of capsule 00:00: mouth 4 [place] (four) Medical times Branch daily. budesonide- Yes [id number] 2{puff} Inhale 2 Univers formoteroL 8-29 Puffs in ity o f 160-4.5 00:00: the [place] mcg/actuati 00 morning Medic al on inhaler and 2 Branch Puffs in the evening. vancomycin Yes [id number] 125mg Take 1 Univers 125 mg 8-29 capsule by ity of capsule 00:00: mouth 4 [place] (four) Medical times Branch daily. budesonide- Yes [id number] 2{puff} Inhale 2 Univers formoteroL 8-29 Puffs in ity o f 160-4.5 00:00: the [place] mcg/actuati 00 morning Medic al on inhaler and 2 Branch Puffs in the evening. vancomycin Yes [id number] 125mg Take 1 Univers 125 mg 8-29 capsule by ity of capsule 00:00: mouth 4 [place] (four) Medical times Branch daily. budesonide- Yes [id number] 2{puff} Inhale 2 Univers formoteroL 8-29 Puffs in ity o f 160-4.5 00:00: the [place] mcg/actuati 00 morning Medic al on inhaler and 2 Branch Puffs in the evening. vancomycin Yes [id number] 125mg Take 1 Univers 125 mg 8-29 capsule by ity of capsule 00:00: mouth 4 [place] (four) Medical times Branch daily. budesonide- Yes [id number] 2{puff} Inhale 2 Univers formoteroL 8-29 Puffs in ity o f 160-4.5 00:00: the [place] mcg/actuati 00 morning Medic al on inhaler and 2 Branch Puffs in the evening. vancomycin 0 Yes [id number] 125mg Take 1 Univers 125 mg 8-29 capsule by ity of capsule 00:00: mouth 4 [place] (four) Medical times Branch daily. budesonide- Yes [id number] 2{puff} Inhale 2 Univers formoteroL 8-29 Puffs in ity o f 160-4.5 00:00: the [place] mcg/actuati 00 morning Medic al on inhaler and 2 Branch Puffs in the evening. vancomycin Yes [id number] 125mg Take 1 Univers 125 mg 8-29 capsule by ity of capsule 00:00: mouth 4 [place] 00 (four) Medical times Branch daily. budesonide- Yes [id number] 2{puff} Inhale 2 Univers formoteroL 8-29 Puffs in ity o f 160-4.5 00:00: the [place] mcg/actuati 00 morning Medic al on inhaler and 2 Branch Puffs in the evening. vancomycin Yes [id number] 125mg Take 1 Univers 125 mg 8-29 capsule by ity of capsule 00:00: mouth 4 [place] 00 (four) Medical times Branch daily. budesonide- Yes [id number] 2{puff} Inhale 2 Univers formoteroL 8-29 Puffs in ity o f 160-4.5 00:00: the [place] mcg/actuati morning Medic al on inhaler and 2 Branch Puffs in the evening. vancomycin Yes [id number] 125mg Take 1 Univers 125 mg 8-29 capsule by ity of capsule 00:00: mouth 4 [place] [address] (four) Medical times Branch daily. apixaban 2021- No 1358 2.5mg Take 1 Unive rs 2.5 mg 8-29 11-28 tablet by ity of tablet 00:00: 05:59 mouth in [place] 00 :00 the Medical morning Branch and 1 tablet in the evening. Do all this for 90 days. Indication s: atrial fibrillati on apixaban 2021-0 2- No 1358 2.5mg Take 1 Unive rs 2.5 mg 8-29 11-28 tablet by ity of tablet 00:00: 05:59 mouth in [place] 00 :00 the Medical morning Branch and 1 tablet in the evening. Do all this for 90 days. Indication s: atrial fibrillati on apixaban 2021-0 2- No 1358 2.5mg Take 1 Unive rs 2.5 mg 8-29 11-28 tablet by ity of tablet 00:00: 05:59 mouth in [place] 00 :00 the Medical morning Branch and 1 tablet in the evening. Do all this for 90 days. Indication s: atrial fibrillati on apixaban 2021-0 2021- No 1358 2.5mg Take 1 Unive rs 2.5 mg 8-29 11-28 tablet by ity of tablet 00:00: 05:59 mouth in [place] 00 :00 the Medical morning Branch and 1 tablet in the evening. Do all this for 90 days. Indication s: atrial fibrillati on apixaban 2021-0 2021- No 1358 2.5mg Take 1 Unive rs 2.5 mg 8-29 11-28 tablet by ity of tablet 00:00: 05:59 mouth in [place] 00 :00 the Medical morning Branch and 1 tablet in the evening. Do all this for 90 days. Indication s: atrial fibrillati on apixaban 2021-0 2021- No 1358 2.5mg Take 1 Unive rs 2.5 mg 8-29 11-28 tablet by ity of tablet 00:00: 05:59 mouth in [place] 00 :00 the Medical morning Branch and 1 tablet in the evening. Do all this for 90 days. Indication s: atrial fibrillati on apixaban 2021-0 2021- No 1358 2.5mg Take 1 Unive rs 2.5 mg 8-29 11-28 tablet by ity of tablet 00:00: 05:59 mouth in [place] 00 :00 the Medical morning Branch and 1 tablet in the evening. Do all this for 90 days. Indication s: atrial fibrillati on apixaban 2021-0 2021- No 1358 2.5mg Take 1 Unive rs 2.5 mg 8-29 11-28 tablet by ity of tablet 00:00: 05:59 mouth in [place] 00 :00 the Medical morning Branch and 1 tablet in the evening. Do all this for 90 days. Indication s: atrial fibrillati on apixaban 2021-0 2021- No 1358 2.5mg Take 1 Unive rs 2.5 mg 8-29 11-28 tablet by ity of tablet 00:00: 05:59 mouth in [place] 00 :00 the Medical morning Branch and 1 tablet in the evening. Do all this for 90 days. Indication s: atrial fibrillati on vancomycin 2021-2- No [id number] 125mg Take 1 Univers 125 mg 8-29 08-29 capsule by ity of capsule 00:00: 00:00 mouth 4 [place] 00 :00 (four) Medical times Branch daily for 10 days. zolpidem Yes 5mg 5 mg, Univers (AMBIEN) 10-04 Oral, ity of tablet 5 mg 21:45: QHSPRN, 3 [place] 27 doses, Medical Starting Branch on [place] 10/04/21 at 1645, Until Discontinu ed, Routine, Insomnia brexpiprazo Yes 1mg 1 mg, Unive rs le 10-04 Oral, ity of (REXULTI) 14:00: DAILY, [place] Tab 1 mg 00 First dose Medic al on [place] Branch 10/04/21 at 0900, Until Discontinu ed, Routine
Medicatio n Name: rexulti
Form: Tablet
Length of Therapy: Indefinite
How soon needed (normally 72 hours needed to procure): 0-24 hrs
Juliana son for non-formul thiago use: PATIENT CURRENTLY TAKING NONFORMULA RY PRODUCT fidaxomicin No 200mg 200 mg, U nivers (DIFICID) 10-04 09-07 Oral, BID, ity of tablet 200 13:00: 12:59 20 doses, [place] mg 00 :00 First dose Medical on [place] Branch 10/04/21 at 0800, Last dose on Tue10/13/21 at 2000, Routine
Reason for Anti-Infec tive: Documented Infection< br>Documen shazia Infection Site: Abdominal< br>Duratio n of Therapy: 10 days atorvastati Yes 10mg 10 mg, Univ ers n (LIPITOR) 10-04 Oral, QHS, it y of tablet 10 02:00: First dose [place] 00 on [facility] 10/03/21 at Branch 2100, Until Discontinu ed, Routine budesonide- Yes 2{puff} 2 Puff, [facility] formoteroL 10-04 Inhalation ity of (SYMBICORT) 01:00: , BID, [place] 160-4.5 00 First dose Medica l mcg/actuati on [facility] Branch on inhaler 10/03/21 at 2 Puff [...] at 0900, Until Discontinu ed, Routine pantoprazol 2021- No 40mg 40 mg, Uni vers e 10-03 Oral, ity of (PROTONIX) 14:00: 13:58 DAILY, [place] EC tablet 00 :02 First dose Medi carlyle 40 mg on Sat Branch 10/03/21 at 0900, Until Discontinu ed, Routine ARIPiprazol 2021- No 5mg 5 mg, Univ ers e (ABILIFY) 10-03 Oral, ity of tablet 5 mg 14:00: 21:35 DAILY, Jeremías as 00 :33 First dose Medical on Sat Branch 10/03/21 at 0900, Until Discontinu ed, Routine metroNIDAZO 2021- No 250mg 250 mg, U elvi HENSON (FLAGYL) 10-03 Oral, ity of tablet 250 13:00: 12:35 Q12H, 20 [place] mg 00 :06 doses, Medical First dose Branch on 10/03/21 at 0800, Last dose on 10/12/21 at 2000, Routine
Reason for Anti-Infec tive: Documented Infection< br>Documen shazia Infection Site: Abdominal< br>Duratio n of Therapy: 10 days ciprofloxac 2021- No 500mg 500 mg, U nivers in HCl 10-03 Oral, BID, ity of (CIPRO) 13:00: 12:35 20 doses, [place] tablet 500 00 :06 First dose Med ical mg on Sat Branch 10/03/21 at 0800, Last dose on 10/12/21 at 2000, HIEU
Re ason for Anti-Infec [...] 650 09 Starting Medic al mg on Tue Branch 10/02/21 at 2157, Until Discontinu ed, Routine, Pain (scale 1-3) iopamidol 2021- No [id number] 60mL 60 mL, U nivers (ISOVUE 10-02 [...] Time Observation Value Comments Source Systolic blood 2022-01-13 18:10:00 170 mm[Hg] Univer sity of pressure [place] [facility] Diastolic blood 2022-01-13 18:10:00 60 mm[Hg] Unive rsity of pressure [place] [facility] Heart rate 2022-01-13 18:10:00 78 /min Universi ty [facility] [place] [facility] Respiratory rate 2022-01-13 18:10:00 18 /min Univ ersity of [place] [facility] Oxygen saturation in 2022-01-13 18:10:00 94 /min University of Arterial blood by [place] [employer] carlyle Pulse oximetry Branch Body temperature 2022-01-13 17:40:00 36.17 Bel Univ ersity of [place] [facility] Body weight 2022-01-08 18:00:00 52.164 kg [facility]i ty [facility] [place] [facility] BMI 2022-01-08 18:00:00 22.46 kg/m2 [facility] ty [facility] [place] [facility] Systolic blood 2022-01-13 17:50:00 158 mm[Hg] Univer sity of pressure [place] [facility] Diastolic blood 2022-01-13 17:50:00 62 mm[Hg] Unive rsity of pressure [place] [facility] Heart rate 2022-01-13 17:50:00 77 /min Universi ty [facility] [place] [facility] Respiratory rate 2022-01-13 17:50:00 13 /min Univ ersity of [place] [facility] Oxygen saturation in 2022-01-13 17:50:00 95 /min University of Arterial blood by [employer] carlyle Pulse oximetry Branch Body temperature 2022-01-13 17:40:00 36.17 Bel Univ ersity [facility] [place] [facility] Body weight 2022-01-08 18:00:00 52.164 kg Universi ty [facility] [place] [facility] BMI 2022-01-08 18:00:00 22.46 kg/m2 [facility] [place] [facility] Systolic blood 2021-10-16 02:55:00 137 mm[Hg] Univer sity of pressure [place] [facility] Diastolic blood 2021-10-16 02:55:00 53 mm[Hg] Unive rsity of pressure [place] [facility] Heart rate 2021-10-16 02:55:00 67 /min [facility]i ty [facility] [place] [facility] Respiratory rate 2021-10-16 02:55:00 14 /min [facility] ersity [facility] Oxygen saturation in 2021-10-16 02:55:00 93 /min University of Arterial blood by [facility] Pulse oximetry Branch Body temperature 2021-10-16 00:49:00 38.06 Bel [facility] ersity of [place] [facility] [place] Body height 2021-10-16 00:49:00 152.4 cm [facility]i [facility] [place] [facility] Body weight 2021-10-16 00:49:00 55.339 kg [facility] [place] [facility] BMI 2021-10-16 00:49:00 23.83 kg/m2 [facility] [place] [facility] Systolic blood 2021-10-05 20:21:00 159 mm[Hg] Univer sity of [facility] [place] Diastolic blood 2021-10-05 20:21:00 64 mm[Hg] [facility] [place] Heart rate 2021-10-05 20:21:00 69 /min Universi ty [facility] [place] [facility] Body temperature 2021-10-05 20:21:00 36.28 [facility] [place] Respiratory rate 2021-10-05 20:21:00 18 /min [facility] Oxygen saturation in 2021-10-05 20:21:00 96 /min University of Arterial blood by [facility] Pulse oximetry Branch Body height 2021-10-03 03:00:00 152.4 cm [facility] ty [facility] [place] [facility] Body weight 2021-10-03 03:00:00 54.432 kg [facility] [place] [facility] BMI 2021-10-03 03:00:00 23.44 kg/m2 Universi ty [facility] [place] Procedures Procedure Date / Time Performing Source Performed Clinician REFERRAL- REQUEST/RESPONSE 2022-06-30 Doctor Unassigned, [facility] 05:01:00 [place] [facility] ASSIGNMENT OF BENEFITS 2022-04-14 Doctor Unassigned, [facility] 17:43:44 [place] [facility] COLONOSCOPY (ENDO) 2022-01-13 Allyson Ortega [facility] 17:07:41 Medical Branch COLONOSCOPY (ENDO) 2022-01-13 Allyson Ortega [facility] o f [place] 17:07:41 Medical Branch COLONOSCOPY 2022-01-13 Dang Estrella Churdan o f [place] 17:01:00 C Medical Branch PATIENT QUESTIONNAIRE 2022-01-13 Doctor Unassigned, [facility] 06:01:00 [place] [facility] EXTERNAL PROVIDER RECORDS 2021-12-28 Doctor Unassigned, Uni versity [facility] 06:01:00 [place] [facility] EXTERNAL PROVIDER RECORDS 2021-12-28 Doctor Unassigned, Uni versity [facility] 06:01:00 [place] [facility] EXTERNAL PROVIDER RECORDS 2021-12-25 Doctor [facility]igned, [facility] [place] [facility] 06:01:00 [place] [facility] EXTERNAL PROVIDER RECORDS 2021-12-25 Doctor Unassigned, [facility] [place] [facility] 06:01:00 [place] [facility] DIRECTIVE TO PHYSICIAN 2021-10-26 Doctor Unassigned, [facility] 05:01:00 [place] [facility] XR CHEST 1 VW [facility] Branch [facility]YSIS [facility]-10[facility]16 [facility] 01:26:00 [facility] TROPONIN I 2021-10-16 [facility] 01:09:00 [facility] COMP. METABOLIC PANEL (89812) 2021-10-16 Micha Lynne [facility] 01:09:00 Medical Branch CBC WITH DIFF 2021-10-16 [facility] 01:09:00 [facility] N-TERMINAL PRO-BNP 2021-10-16 [facility] 01:09:00 [facility] COVID-19 (ID NOW RAPID [facility] 01:09:00 Medical Branch LACTIC ACID WHOLE BLOOD 2021[facility] 01:08[facility]00 Medical Branch CONSENT/REFUSAL FOR DIAGNOSIS 2021-10-16 [facility] 00:42:00 [place] [facility] [place] [facility] - OTHER 2021-10-07 Doctor Unakrunaligned, [facility] 05:01:00 [place] [facility] AUTHORIZATION FOR RELEASE OF 2021-10-06 Doctor [facility]igned, [facility] PHI 05:01:00 [place] [facility] MAGNESIUM 2021-10-05 Rosalva [facility] xa 09:12:00 Medical Branch BASIC METABOLIC PANEL (NA, K, 2021-10-05 Abdoulaye Geller [facility] CL, CO2, GLUCOSE, BUN, 09:12:00 Medical B ran CREATININE, CA) CBC WITHOUT DIFF 2021-10-05 Rosalva [facility] [place]as 09:12:00 Medical Branch ELECTROENCEPHALOGRAM 2021-10-[address] [facility] 00:00:00 Medical Branch MAGNESIUM 2021-10-04 [facility] xa 09:50:00 [facility] BASIC METABOLIC PANEL (NA, K, 2021-10-04 Daren [facility] CL, CO2, GLUCOSE, BUN, 09:50:00 [facility] ran CREATININE, CA) CBC WITH DIFF 2021-10-04 Long, [facility] 09:50:00 [facility] HB ABO GROUPING 2021-10-04 [facility] xa 02:50:00 [facility] CBC WITH DIFF 2021-10-04 Long, [facility] 02:49:00 Medical Branch COMP. METABOLIC PANEL ([id number]) 2021-10-03 Long, [facility] 16:43:00 Medical Branch CBC WITH DIFF 2021-10-03 Long, [facility] 16:43:00 Medical Branch CLOSTRIDIUM DIFFICILE TOXIN 2021-10-03 Flash [facility] 11:15:00 Medical Branch FECAL PATHOGENS BY PCR 2021-10-03 Vidales [facility] 11:14:00 Medical Branch OCCULT (GUAIAC) BLOOD 2021-10-03 Flash [facility] 11:13:00 Medical Branch PROTHROMBIN TIME / INR 2021-10-03 Flash [facility] 03:52:00 Medical Branch ACTIVATED PARTIAL THRMPLAS 2021-10-03 Flash [facility] ANA 03:52:00 Medical Branch BASIC METABOLIC PANEL (NA, K, 2021-10-03 Tyesha [facility] [place] [facility] CL, CO2, GLUCOSE, BUN, 03:30:00 Medical B ranch CREATININE, [place]) CBC WITH DIFF 2021-10-03 Tyesha Vidales [facility] xa 03:30:[address] ABDOMEN PELVIS W CONTRAST 2021-10-02 Brittanie [facility] [place] 21:30:36 Medical Branch ABORH CONFIRMATION (LAB ONLY) 2021-10-02 Brittanie [facility] [place] 21:30:00 Medical Branch HB ECG ROUTINE & RHYTHM STRIP 2021-10-02 Brittanie [facility] [place] 20:58:31 Medical Branch COVID-19 (ID NOW RAPID 2021-10-02 Brittanie Pal [facility] TESTING) 20:47:00 Medical Branch LAB ONLY COVID INTERPRETATION 2021-10-02 Brittanie Pal [facility] 20:47:00 Medical Branch COMP. METABOLIC PANEL ([id number]) 2021-10-02 Brittanie Pal [facility] 20:44:00 Medical Branch IRON PANEL 2021-10-02 Yasmani Mercedes [facility] 20:44:00 [facility] Branch CBC WITH DIFF 2021-10-02 Brittanie Pal [facility] 20:44:00 Medical Branch GLYCOSYLATED HEMOGLOBIN (A1C) 2021-10-02 Tyesha Vidales [facility] 20:44:00 Medical Branch PROTHROMBIN TIME / INR 2021-10-02 Brittanie Pal [facility] 20:44:00 Medical Branch ACTIVATED PARTIAL THRMPLAS 2021-10-02 Brittanie Pal [facility] ANA 20:44:00 Medical Branch HB ABO GROUPING 2021-10-02 Brittanie Pal [facility] xa 20:40:00 Medical Branch NOTICE OF PRIVACY PRACTICES 2021-10-02 Doctor Unassigned, [facility] 19:48:10 [place] [facility] HOSPITAL ADMISSION 2021-10-02 [facility] 05:01:00 [place] [facility] Encounters Start End Encounter Admission Attending Care Care Encounter Source Date/Time Date/Time Type Type Clinicians Facility Department ID 2022-06-30 2022-06-30 Orders Doctor ROSALVA [id number] Univers 00:00:00 00:00:00 Only Unassigned, ALYSSIA 350.1.13.10 ity of [place] [facility] 4.2.7.2.686 Jeremías as [phone] [address] 2022-06-29 2022-06-29 Outpatient SFA SFA [facility] 10:14:51 10:14:51 [id number] [place] 2022-05-06 2022-05-06 Outpatient SFA [facility] Karlo 13:57:04 13:57:04 [id number] [address] [place] 2022-04-14 2022-04-14 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, [facility] Respiratory [facility] 1.2.840.114 [id number] Univers 11:30:00 12:40:42 Visit Una Beltran 350.1.13.10 ity [facility] 4.2.7.2.686 [place] [facility] [id number] [place] [id number] Branch 2022-04-14 2022-04-14 Outpatient R DEVIN [facility] [id number] Univers 11:30:00 11:30:00 UNA landaverde o f [facility] 2022-04-14 2022-04-14 Orders Doctor ROSALVA 1.2.840.114 [id number] Univers 00:00:00 00:00:00 Only Unassigned, ALYSSIA 350.1.13.10 [facility] 4.2.7.2.686 Jeremías as [phone] [address] 2022-03-22 2022-03-22 Outpatient SFA SFA [place] 16:55:48 16:55:48 [id number] [place] 2022-03-08 2022-03-08 Outpatient SFA SFA [place] 14:40:04 14:40:04 [id number] [place] 2022-03-04 2022-03-04 Outpatient SFA SFA [place] 11:01:10 11:01:10 [id number] [place] 2022-02-18 2022-02-18 Outpatient SFA SFA [place] 09:00:08 09:00:08 [id number] F [place] 2022-02-04 2022-02-04 Outpatient [facility] [id number] Kar[place] 10:49:39 10:49:39 [id number] [place] 2022-01-13 2022-01-13 Outpatient R [facility] BO 007 [id number] Univers 09:58:00 12:30:00 DANG Faria o f [facility] 2022-01-13 2022-01-13 [facility] 1.2.840.114 [id number] Univers 09:58:00 12:30:00 Encounter eDang 350.1.13.10 ity of [place].2.[place] [id number] [facility] 071 Branch 2022-01-13 2022-01-13 Surgery [facility] 1.2.840.114 [id number] Univers 11:07:00 11:51:00 Dang faria 350.1.13.10 ity [facility] 4.2.7.2.[place] [id number] [facility] 020 Branch 2022-01-13 2022-01-13 Orders Doctor ROSALVA 1.2.840.114 [id number] Univers 00:00:00 00:00:00 Only Unassigned, ALYSSIA 350.1.13.10 ity of [place] [facility] 4.2.7.2.686 Jeremías as [phone] [address] 2021-10-26 2021-10-26 Orders Doctor ROSALVA 1.2.840.114 [id number] Univers 00:00:00 00:00:00 Only Unassigned, ALYSSIA 350.1.13.10 ity of [place] [facility] 4.2.7.2.686 Jeremías as [phone] [address] 2021-10-15 2021-10-15 Emergency X MICHA LYNNE [facility] ERT 1 [id number] Univers 19:43:00 21:57:00 MICHA LYNNE of [facility] 2021-10-15 2021-10-15 Emergency Maged [facility] [id number] Univers 19:43:00 21:57:00 Micha AMARO 350.1.13.10 i ty of [place]2.[place] [id number] [facility] 084 Branch 2021-10-07 2021-10-07 Orders Doctor ROSALVA 1.2.840.114 [id number] Univers 00:00:00 00:00:00 Only Unassigned, ALYSSIA 350.1.13.10 ity of [place] [facility] 4.2.7.2.686 Jeremías as [id number] [facility] 009 Branch 2021-10-06 2021-10-06 Transition ADDISON Baum 1.2.840.114 [id number] Univers 00:00:00 00:00:00 of Care Katya CLARKE 350.1.13.10 it y of [place]2.[place].2.[place] [id number] [facility] 403 Branch 2021-10-06 2021-10-06 Orders Doctor ROSALVA 1.2.840.114 [id number] Univers 00:00:00 00:00:00 Only Unassigned, ALYSSIA 350.1.13.10 ity of [place] [facility] 4.2.7.2.686 Jeremías as [id number] [facility] 009 Branch 2021-10-02 2021-10-05 [facility] Kae, K Kasey JUAREZ 1.2.840.1 [id number] Univers 15:20:00 17:15:00 Encounter Padma Abraham 350.1.13.10 ity of [facility] 4.2.7.2.686 Jeremías as [id number] [facility] 100 Branch 2021-10-02 2021-10-05 Outpatient X MUFTI NJBERRY [facility] [id number] Univers 15:20:00 17:15:00 PADMA ity of [facility] 2021-10-05 2021-10-05 Telephone Mufti NJBERRY [id number] Univers 00:00:00 00:00:00 Padma MULTISPEC 350.1.13.10 ity of [place] 4.2.7.2.686 [facility] [id number] Medi carlyle AND RAVI 067 Branch DIABETES CLINIC 2021-09-02 2021-09-02 Outpatient LOUISE BEAR [facility] 953 [place] 00:00:00 00:00:00 _MARÍA 0727 da [facility] h Program Results Test Description Test Time Test Comments Results Result Comments Source TROPONIN I 2021-10-16 01:50:28 Test Item Value Reference Range Interpretation Comme nts TROPONIN I (test code = 0.006 ng/mL See_Comment [Au tomated message] The [id number]) system which ge nerated this result tra [...] biotin. Lab Interpretation Normal (test code = 92768-9) [id number] 01:47:31 Test Item Value Reference Range Interpretation Comments NT-proBNP (test code 488 pg/mL See_Comment H [Autom ated = 7512589348) message] The system which generated this result transmitted reference range : <=450. The reference range was not used to interpret this result as normal/abnormal . SUZE (test code = SUZE) Biotin has been reported to cause a negative bias, interpret results relative to patient's use of biotin. Lab Interpretation Abnormal (test code = 99737-9) [facility] [place] [facility] (40721)2021-10-16 01:34:28 Test Item Value Reference Range Interpretation Comments NA (test code = 135 mmol/L 135-145 3677381135) K (test code = 3.6 mmol/L 3.5-5 7286275065) CL (test code = 102 mmol/L 98-108 0908787740) CO2 TOTAL (test code = 25 mmol/L 23-31 8354746688) AGAP (test code = 2-16 4686807030) BUN (test code = 15 mg/dL 7-23 9355005119) GLUCOSE (test code = 92 mg/dL 70-110 7315055548) CREATININE (test code = 0.91 mg/dL 0.5-1.04 4176941043) TOTAL BILI (test code = 1.2 mg/dL 0.1-1.1 H 1183323901) CALCIUM (test code = 9.2 mg/dL 8.6-10.6 8478397112) T PROTEIN (test code = 6.6 g/dL 6.3-8.2 9440049149) ALBUMIN (test code = 4.4 g/dL 3.5-5 9976954017) ALK PHOS (test code = 95 U/L 34-122 3501392974) ALTv (test code = 22 U/L 5-35 1742-6) AST(SGOT) (test code = 34 U/L 13-40 9123328967) eGFR (test code = mL/min/1.73m2 8809202351) SUZE (test code = SUZE) Association of [...] tests). Lab Interpretation Abnormal (test code = 36441-7) [facility] WITH [id number] 01:21:05 Test Item Value Reference Range Interpretation Comments WBC (test code = See_Comment [Automated 8890-2) message] The sy stem which generated this result transmitted reference range : 4.30 - 11.10 10*3/?L. The reference range was not used to interpret this result as normal/abnormal . RBC (test code = See_Comment [Automated 269-8) message] The sy stem which generated this [...] RDW-SD (test code = 40.9 fL 39-49.9 03812-5) RDW-CV (test code = 12.2 % 12-15.5 788-0) PLT (test code = See_Comment [Automated 777-3) message] The sy stem which generated this result transmitted reference range : 166 - 358 10*3/ ?L. The reference r manav was not used to interpret this result as normal/abnormal . MPV (test code = 9.9 fL 9.5-12.9 91843-7) NRBC/100 WBC (test See_Comment [Automat ed code = 9189686018) message] The system which generated this result transmitted reference range : 0.0 - 10.0 /100 WBCs. The refer ence range was not u sed to interpret th is result as normal/abnormal . NRBC x10^3 (test code See_Comment [Auto mated = 7468350547) message] The s ystem which generated this result transmitted reference range : 10*3/?L. The reference range was not used to interpret this result as normal/abnormal . GRAN MAT (NEUT) % 76.4 % (test code = 770-8) IMM GRAN % (test code 0.20 % = 7876577760) LYMPH % (test code = 8.3 % 736-9) MONO % (test code = 9.5 % 5905-5) EOS % (test code = 4.4 % 713-8) BASO % (test code = 1.2 % 706-2) GRAN MAT x10^3(ANC) 4.50 10*3/uL 1.88-7.09 (test code = 6194351984) IMM GRAN x10^3 (test 0-0.06 code = 8625134259) LYMPH x10^3 (test code 0.49 10*3/uL 1.32-3.29 L = 731-0) MONO x10^3 (test code 0.56 10*3/uL 0.33-0.92 = 742-7) EOS x10^3 (test code = 0.26 10*3/uL 0.03-0.39 711-2) BASO x10^3 (test code 0.07 10*3/uL 0.01-0.07 = 704-7) Lab Interpretation Abnormal (test code = 94469-7) [facility] [place] [facility] (NA, K, CL, CO2, GLUCOSE, BUN, CREATININE, [place])2021-10-05 10:08:40 Test Item Value Reference Range Interpretation Comments NA (test code = 135 mmol/L 135-145 3561383268) K (test code = 3.9 mmol/L 3.5-5 4655178382) CL (test code = 106 mmol/L 98-108 9839656744) CO2 TOTAL (test code = 27 mmol/L 23-31 7477683025) AGAP (test code = 2-16 5412816119) BUN (test code = 17 mg/dL 7-23 1875865885) GLUCOSE (test code = 100 mg/dL 70-110 6075247335) CREATININE (test code = 1.21 mg/dL 0.5-1.04 H 7248279929) CALCIUM (test code = 8.7 mg/dL 8.6-10.6 1237645706) eGFR (test code = mL/min/1.73m2 5958071557) SUZE (test code = SUZE) Association of [...] tests). Lab Interpretation Abnormal (test code = 16829-0) [facility] Test Item Value Reference Range Interpretation Comments MAGNESIUM (test code = 6849635671) 1.8 mg/dL 1.7-2.4 Lab Interpretation (test code = Normal 11707-9) [facility] WITHOUT [id number] 09:30:59 Test Item Value Reference Range Interpretation Comments WBC (test code = 6690-2) See_Comment [A utomated message] The system [employer] generated this result transmit shazia reference range : 4.30 - 11.10 10*3/?L. The reference range was not used to interpret this result as normal/abnormal . RBC (test code = 789-8) See_Comment L [Au tomated message] The system [employer] generated this result transmit shazia reference range [...] 777-3) See_Comment [Au tomated message] The system [employer] generated this result transmit shazia reference range : 166 - 358 10*3/?L. The reference range was not used to interpret this result as normal/abnormal . MPV (test code = 10.0 fL 9.5-12.9 29467-2) RDW-CV (test code = 12.1 % 12-15.5 788-0) RDW-SD (test code = 41.6 fL 39-49.9 57543-5) NRBC x10^3 (test code = See_Comment [Au tomated message] 4152280442) The system [employer] generated this result transmit shazia reference range : 10*3/?L. The reference range was not used to interpret this result as normal/abnormal . NRBC/100 WBC (test code See_Comment [Au tomated message] = 7986914317) The system [facility] generated this result transmit shazia reference range : 0.0 - 10.0 /100 WBC s. The reference r manav was not used to interpret this result as normal/abnormal . IPF % (test code = 5130819224) Lab Interpretation (test Abnormal code = 47245-3) [facility] WITH [id number] 10:56:20 Test Item Value Reference Range Interpretation [...] RDW-SD (test code = 41.0 fL 39-49.9 71558-6) RDW-CV (test code = 12.1 % 12-15.5 788-0) PLT (test code = See_Comment [Automated 777-3) message] The sy stem which generated this result transmitted reference range : 166 - 358 10*3/ ?L. The reference r manav was not used to interpret this result as normal/abnormal . MPV (test code = 9.5 fL 9.5-12.9 75528-4) NRBC/100 WBC (test See_Comment [Automat ed code = 0965709154) message] The system which generated this result transmitted reference range : 0.0 - 10.0 /100 WBCs. The refer ence range was not u sed to interpret th is result as normal/abnormal . NRBC x10^3 (test code See_Comment [Auto mated = 8410749075) message] The s ystem which generated this result transmitted reference range : 10*3/?L. The reference range was not used to interpret this result as normal/abnormal . GRAN MAT (NEUT) % 50.7 % (test code = 770-8) IMM GRAN % (test code 0.30 % = 6355556119) LYMPH % (test code = 27.0 % 736-9) MONO % (test code = 10.1 % 5905-5) EOS % (test code = 10.7 % 713-8) BASO % (test code = 1.2 % 706-2) GRAN MAT x10^3(ANC) 1.65 10*3/uL 1.88-7.09 L (test code = 4760598450) IMM GRAN x10^3 (test 0-0.06 code = 8505299239) LYMPH x10^3 (test code 0.88 10*3/uL 1.32-3.29 L = 731-0) MONO x10^3 (test code 0.33 10*3/uL 0.33-0.92 = 742-7) EOS x10^3 (test code = 0.35 10*3/uL 0.03-0.39 711-2) BASO x10^3 (test code 0.04 10*3/uL 0.01-0.07 = 704-7) Lab Interpretation Abnormal (test code = 78916-7) [facility] METABOLIC PANEL (NA, K, CL, CO2, GLUCOSE, BUN, CREATININE, [place])2021-10-04 10:47:23 Test Item Value Reference Range Interpretation Comments NA (test code = 133 mmol/L 135-145 L 3836142961) K (test code = 3.8 mmol/L 3.5-5 2951631097) CL (test code = 105 mmol/L 98-108 5700678071) CO2 TOTAL (test code = 29 mmol/L 23-31 4098066419) AGAP (test code = 2-16 L 7106356150) BUN (test code = 10 mg/dL 7-23 0897485963) GLUCOSE (test code = 89 mg/dL 70-110 1759807939) CREATININE (test code = 1.03 mg/dL 0.5-1.04 1970473794) CALCIUM (test code = 8.6 mg/dL 8.6-10.6 9697827647) eGFR (test code = mL/min/1.73m2 6030888236) SUZE (test code = SUZE) Association of [...] tests). Lab Interpretation Abnormal (test code = 08158-1) [facility] 10:27:12 Test Item Value Reference Range Interpretation Comments MAGNESIUM (test code = 1251420503) 1.8 mg/dL 1.7-2.4 Lab Interpretation (test code = Normal 81775-9) [facility] WITH [id number] 03:39:50 Test Item Value Reference Range Interpretation [...] RDW-SD (test code = 40.8 fL 39-49.9 48971-6) RDW-CV (test code = 11.9 % 12-15.5 L 788-0) PLT (test code = See_Comment L [Automated 777-3) message] The sy stem which generated this result transmitted reference range : 166 - 358 10*3/ ?L. The reference r manav was not used to interpret this result as normal/abnormal . MPV (test code = 9.8 fL 9.5-12.9 39088-3) NRBC/100 WBC (test See_Comment [Automat ed code = 4225057041) message] The system which generated this result transmitted reference range : 0.0 - 10.0 /100 WBCs. The refer ence range was not u sed to interpret th is result as normal/abnormal . NRBC x10^3 (test code See_Comment [Auto mated = 7125900813) message] The s ystem which generated this result transmitted reference range : 10*3/?L. The reference range was not used to interpret this result as normal/abnormal . GRAN MAT (NEUT) % 51.4 % (test code = 770-8) IMM GRAN % (test code 0.30 % = 2552439200) LYMPH % (test code = 26.5 % 736-9) MONO % (test code = 10.8 % 5905-5) EOS % (test code = 10.0 % 713-8) BASO % (test code = 1.0 % 706-2) GRAN MAT x10^3(ANC) 1.96 10*3/uL 1.88-7.09 (test code = 0061710536) IMM GRAN x10^3 (test 0-0.06 code = 2749301935) LYMPH x10^3 (test code 1.01 10*3/uL 1.32-3.29 L = 731-0) MONO x10^3 (test code 0.41 10*3/uL 0.33-0.92 = 742-7) EOS x10^3 (test code = 0.38 10*3/uL 0.03-0.39 711-2) BASO x10^3 (test code 0.04 10*3/uL 0.01-0.07 = 704-7) Lab Interpretation Abnormal (test code = 98610-4) [facility] [id number] 03:38:54 Test Item Value Reference Range Interpretation Comments ABO & RH (test code O POSITIVE Performe d at [facility] = 20) Laboratory Serv [facility] Blood [facility] [address] [facility] [address]Rgbb Free: [phone] A No. [id number] IAT (test code = Negative Performed a t [facility] 1185) Laboratory Serv [facility] Blood [facility] [address] [facility] s [address]Frcf Free: [phone] A No. [id number] [facility] [id number] 15:51:56 Test Item Value Reference Range Interpretation Comments IRON (test code = 8492689882) 78 ug/dL 50-160 TIBC (test code = 4698831193) 296 ug/dL 250-410 % FE SAT (test code = 9676785716) 26 % 20-50 Lab Interpretation (test code = Normal 80894-4) [facility] METABOLIC PANEL (NA, K, CL, CO2, GLUCOSE, BUN, CREATININE, [place])2021-10-03 04:19:41 Test Item Value Reference Range Interpretation Comments NA (test code = 136 mmol/L 135-145 5701416094) K (test code = 3.5 mmol/L 3.5-5 8326958310) CL (test code = 103 mmol/L 98-108 4320633906) CO2 TOTAL (test code = 29 mmol/L 23-31 9246255322) AGAP (test code = 2-16 1433469466) BUN (test code = 14 mg/dL 7-23 8428762511) GLUCOSE (test code = 118 mg/dL 70-110 H 9647328343) CREATININE (test code = 0.90 mg/dL 0.5-1.04 6199723160) CALCIUM (test code = 9.4 mg/dL 8.6-10.6 6166782395) eGFR (test code = mL/min/1.73m2 1363782930) SUZE (test code = SUZE) Association of [...] tests). Lab Interpretation Abnormal (test code = 42292-7) [facility] WITH [id number] 03:59:15 Test Item Value Reference Range Interpretation Comments WBC (test code = See_Comment [Automated 6690-2) message] The sy stem which generated this result transmitted reference range : 4.30 - 11.10 10*3/?L. The reference range was not used to interpret this result as normal/abnormal . RBC (test code = See_Comment [Automated 789-8) message] The sy stem which [...] RDW-SD (test code = 42.7 fL 39-49.9 58501-4) RDW-CV (test code = 12.3 % 12-15.5 788-0) PLT (test code = See_Comment [Automated 777-3) message] The sy stem which generated this result transmitted reference range : 166 - 358 10*3/ ?L. The reference r manav was not used to interpret this result as normal/abnormal . MPV (test code = 9.7 fL 9.5-12.9 50011-7) NRBC/100 WBC (test See_Comment [Automat ed code = 6028909073) message] The system which generated this result transmitted reference range : 0.0 - 10.0 /100 WBCs. The refer ence range was not u sed to interpret th is result as normal/abnormal . NRBC x10^3 (test code See_Comment [Auto mated = 0212268005) message] The s ystem which generated this result transmitted reference range : 10*3/?L. The reference range was not used to interpret this result as normal/abnormal . GRAN MAT (NEUT) % 66.4 % (test code = 770-8) IMM GRAN % (test code 0.10 % = 7524958591) LYMPH % (test code = 19.6 % 736-9) MONO % (test code = 7.0 % 5905-5) EOS % (test code = 5.7 % 713-8) BASO % (test code = 1.2 % 706-2) GRAN MAT x10^3(ANC) 4.55 10*3/uL 1.88-7.09 (test code = 8326834117) IMM GRAN x10^3 (test 0-0.06 code = 2523154926) LYMPH x10^3 (test code 1.34 10*3/uL 1.32-3.29 = 731-0) MONO x10^3 (test code 0.48 10*3/uL 0.33-0.92 = 742-7) EOS x10^3 (test code = 0.39 10*3/uL 0.03-0.39 711-2) BASO x10^3 (test code 0.08 10*3/uL 0.01-0.07 H = 704-7) Lab Interpretation Abnormal (test code = 88794-7) [facility] (A1C)2021-10-03 03:46:09 Test Item Value Reference Range Interpretation Comments HGB A1C (test code = 5.0 % 4-5.7 4548-4) SUZE (test code = SUZE) Reference RangesNormal: <5.7%Prediabetes: 5.7 - 6.4%Diabetes: > 6.5% Lab Interpretation (test Normal code = 03804-4) [facility] Conf[facility]ation (Lab Only)2021-10-02 21:53:37 Test Item Value Reference Range Interpretation Comments ABO & RH (test code O Positive Performe d at [facility] = 20) Laboratory Serv [facility] Blood Bank1 [address] [place] [address]Frbs Free: [phone] A No. [id number] [facility] ONCE [id number] 21:34:44 Test Item Value Reference Range Interpretation Comments ABO & RH (test code O Positive Performe d at [facility] = 20) Laboratory Serv [facility] Blood [facility] [address] [place] [address]Iqtr Free: [phone] A No. [id number] IAT (test code = Negative Performed a t [facility] 1185) Laboratory Serv [facility] Blood Bank[address] [place] [address]Yxwc Free: [phone] A No. [id number] [facility]. MET[facility]OLIC PANEL ([address])2021-10-02 21:13:27 Test Item Value Reference Range Interpretation Comments NA (test code = 139 mmol/L 135-145 4588662488) K (test code = 4.2 mmol/L 3.5-5 7706387518) CL (test code = 102 mmol/L 98-108 7467297089) CO2 TOTAL (test code = 29 mmol/L 23-31 5908228846) AGAP (test code = 2-16 5952182808) BUN (test code = 17 mg/dL 7-23 6884609904) GLUCOSE (test code = 89 mg/dL 70-110 9153900329) CREATININE (test code = 0.85 mg/dL 0.5-1.04 5232334268) TOTAL BILI (test code = 1.5 mg/dL 0.1-1.1 H 3477659815) CALCIUM (test code = 9.5 mg/dL 8.6-10.6 0808886864) T PROTEIN (test code = 6.9 g/dL 6.3-8.2 2282009650) ALBUMIN (test code = 4.5 g/dL 3.5-5 1075530113) ALK PHOS (test code = 83 U/L 34-122 3079448795) ALTv (test code = 24 U/L 5-35 1742-6) AST(SGOT) (test code = 35 U/L 13-40 2607130851) eGFR (test code = mL/min/1.73m2 8692210106) SUZE (test code = SUZE) Association of [...] tests). Lab Interpretation Abnormal (test code = 30051-2) [facility]RM[facility] [id number] 21:10:23 Test Item Value Reference Range Interpretation Comments APTT Patient (test See_Comment [Automat ed code = 3173-2) message] The system which generated this result transmitted reference range : 23 - 38 Seconds . The reference range was not used to interpr et this result as normal/abnormal . SUZE (test code = SUZE) The [facility] patient population mean normal value for aPTT is 30 seconds. Lab Interpretation Normal (test code = 79134-1) [facility] CenterProthrombin Time / [id number] 21:08:06 Test Item Value Reference Range Interpretation [...] tions. Lab Interpretation (test Abnormal code = 19896-5) [facility] WITH [id number] 21:02:42 Test Item Value Reference Range Interpretation Comments WBC (test code = See_Comment [Automated 1290-2) message] The sy stem which generated this result transmitted reference range : 4.30 - 11.10 10*3/?L. The reference range was not used to interpret this result as normal/abnormal . RBC (test code = See_Comment [Automated 789-8) message] The sy stem which [...] RDW-SD (test code = 42.0 fL 39-49.9 31349-0) RDW-CV (test code = 12.2 % 12-15.5 788-0) PLT (test code = See_Comment [Automated 777-3) message] The sy stem which generated this result transmitted reference range : 166 - 358 10*3/ ?L. The reference r manav was not used to interpret this result as normal/abnormal . MPV (test code = 9.6 fL 9.5-12.9 27825-5) NRBC/100 WBC (test See_Comment [Automat ed code = 3315113942) message] The system which generated this result transmitted reference range : 0.0 - 10.0 /100 WBCs. The refer ence range was not u sed to interpret th is result as normal/abnormal . NRBC x10^3 (test code See_Comment [Auto mated = 7337121742) message] The s ystem which generated this result transmitted reference range : 10*3/?L. The reference range was not used to interpret this result as normal/abnormal . GRAN MAT (NEUT) % 66.2 % (test code = 770-8) IMM GRAN % (test code 0.20 % = 4372501024) LYMPH % (test code = 19.5 % 736-9) MONO % (test code = 7.0 % 5905-5) EOS % (test code = 5.7 % 713-8) BASO % (test code = 1.4 % 706-2) GRAN MAT x10^3(ANC) 5.56 10*3/uL 1.88-7.09 (test code = 2900181431) IMM GRAN x10^3 (test 0-0.06 code = 1728022819) LYMPH x10^3 (test code 1.64 10*3/uL 1.32-3.29 = 731-0) MONO x10^3 (test code 0.59 10*3/uL 0.33-0.92 = 742-7) EOS x10^3 (test code = 0.48 10*3/uL 0.03-0.39 H 711-2) BASO x10^3 (test code 0.12 10*3/uL 0.01-0.07 H = 704-7) Lab Interpretation Abnormal (test code = 49091-2) [facility]
[2022-07-28] MEDS ORDERED: NA CHLORIDE 0.9% 1,000 ML ONE (07:58)
[2022-07-28 08:01] LABS: Lymphocytes % 20.4 % (15.3-44.8); MCV 90.7 fL (80-100); MPV 7.7 fL (7.6-11.3); Protime INR 1.28; RBC Red Blood Cell Count 4.08 M/uL (3.86-4.86)
[2022-07-28 08:17] LABS: Albumin 3.2 g/dL (3.4-5.0); Bilirubin Direct 0.2 mg/dL (0-0.2); Bilirubin Indirect, Calculated 0.6 mg/dL (0.2-0.8); Bilirubin Total 0.8 mg/dL (0.2-1.0); Magnesium 2.1 mg/dL (1.6-2.4); Potassium 3.9 mEq/L (3.5-5.1); Troponin High Sensitivity 9.3 pg/mL (<58.9)
--- NOTE | 2022-07-28 08:32 | RAD REPORT ---
EXAM DESCRIPTION: RAD - Chest Single View - 07/28/2022 8:26 am CLINICAL HISTORY: COUGH Chest pain. COMPARISON: Chest Single View dated 10/19/2021; Chest Single View dated 08/25/2021; Chest Single View dated 08/19/2021; Chest Single View dated 01/25/2021 FINDINGS: Portable technique limits examination quality. Emphysematous changes are seen with mild reticular opacities bilaterally which may indicate chronic a typical infection. Heart is upper limit normal in size. No displaced fractures.
[2022-07-28 08:43] LABS: Specific Gravity 1.017 (1.005-1.030); Urine Bacteria >50 /HPF (<20); Urine Bilirubin NEGATIVE (Negative); Urine Blood Trace (Negative); Urine Clarity Turbid (Clear); Urine Color Light-Yellow (Yellow); Urine Glucose NEGATIVE (Negative); Urine Mucus Slight /HPF (None Seen); Urine Protein NEGATIVE (Negative); Urine Urobilinogen Normal (Normal); Urine pH 5.5 (5.0-7.0)
--- NOTE | 2022-07-28 08:44 | EDPHYS ---
Physician Documentation [facility] Name: Madiha Breaux Age: 87 yrs Sex: Female : 1935 Arrival Date: 07/28/2022 Time: 06:54 Bed 8 Private MD: ED Physician Hao Joyce HPI: 07/28 07:38 This 87 yrs old Female presents to ER via Wheelchair with complaints of near salvador syncope and hypotension. 07:38 weak, near syncope, low bp , low pulse. The patient has experienced near-syncope. salvador Onset: The symptoms/episode began/occurred 2 day(s) ago. Duration: The patient has had multiple episodes, that last 20 second(s). Context: the episode(s) was witnessed, by family, daughter. Associated injury: The patient did not suffer any apparent associated injury. Associated signs and symptoms: The patient has no apparent associated signs or symptoms. Severity of symptoms: At their worst the symptoms were mild in the emergency department the symptoms are unchanged. Historical: - Allergies: 07:12 Codeine; ph 07:12 Demerol; ph 07:12 Fentanyl; ph 07:12 lamital; ph 07:12 [place]; ph 07:12 PENICILLINS; ph 07:12 PORK/PORCINE PRODUCT DERIVATIVES; ph 07:12 Sulfa (Sulfonamide Antibiotics); ph - PMHx: 07:12 Congestive heart failure; CVA; Hyperlipidemia; Hypertension; Myocardial infarction; ph Parkinsons; PTSD; - Immunization history:: Adult Immunizations up to date. - Social history:: Smoking status: Patient denies any tobacco usage or history of. ROS: 07:38 Constitutional: Negative for fever, chills, and weight loss, Eyes: Negative for injury, salvador pain, redness, and discharge, ENT: Negative for injury, pain, and discharge, Neck: Negative for injury, pain, and swelling, Cardiovascular: Negative for chest pain, palpitations, and edema, Respiratory: Negative for shortness of breath, cough, wheezing, and pleuritic chest pain, Abdomen/GI: Negative for abdominal pain, nausea, vomiting, diarrhea, and constipation, Back: Negative for injury and pain, : Negative for injury, bleeding, discharge, and swelling, MS/Extremity: Negative for injury and deformity, Skin: Negative for injury, rash, and discoloration, Psych: Negative for depression, anxiety, suicide ideation, homicidal ideation, and hallucinations, Allergy/Immunology: Negative for hives, rash, and allergies, Endocrine: Negative for neck swelling, polydipsia, polyuria, polyphagia, and marked weight changes, Hematologic/Lymphatic: Negative for swollen nodes, abnormal bleeding, and unusual bruising. 07:38 Neuro: Positive for dizziness, near syncope, weakness. Exam: 07:38 Constitutional: This is a well developed, well nourished patient who is awake, alert, salvador and in no acute distress. Head/Face: Normocephalic, atraumatic. Eyes: Pupils equal round and reactive to light, extra-ocular motions intact. Lids and lashes normal. Conjunctiva and sclera are non-icteric and not injected. Cornea within normal limits. Periorbital areas with no swelling, redness, or edema. ENT: Nares patent. No nasal discharge, no septal abnormalities noted. Tympanic membranes are normal and external auditory canals are clear. Oropharynx with no redness, swelling, or masses, exudates, or evidence of obstruction, uvula midline. Mucous membranes moist. Neck: Trachea midline, no thyromegaly or masses palpated, and no cervical lymphadenopathy. Supple, full range of motion without nuchal rigidity, or vertebral point tenderness. No Meningismus. Chest/axilla: Normal chest wall appearance and motion. Nontender with no deformity. No lesions are appreciated. Cardiovascular: Regular rate and rhythm with a normal S1 and S2. No gallops, murmurs, or rubs. Normal PMI, no JVD. No pulse deficits. Respiratory: Lungs have equal breath sounds bilaterally, clear to auscultation and percussion. No rales, rhonchi or wheezes noted. No increased work of breathing, no retractions or nasal flaring. Abdomen/GI: Soft, non-tender, with normal bowel sounds. No distension or tympany. No guarding or rebound. No evidence of tenderness throughout. Back: No spinal tenderness. No costovertebral tenderness. Full range of motion. Female : Normal external genitalia. Skin: Warm, dry with normal turgor. Normal color with no rashes, no lesions, and no evidence of cellulitis. MS/ Extremity: Pulses equal, no cyanosis. Neurovascular intact. Full, normal range of motion. Neuro: Awake and alert, GCS 15, oriented to person, place, time, and situation. Cranial nerves II-XII grossly intact. Motor strength 5/5 in all extremities. Sensory grossly intact. Cerebellar exam normal. Normal gait. Psych: Awake, alert, with orientation to person, place and time. Behavior, mood, and affect are within normal limits. 07:38 Musculoskeletal/extremity: DVT Exam: No signs of deep vein thrombosis. no pain, no swelling, no tenderness, negative Homans' sign noted on exam, no appreciated bluish discoloration, no erythema, no increased warmth. 08:07 ECG was reviewed by the Attending Physician. [facility] 10:03 ECG was reviewed by the Attending Physician. [facility] Vital Signs: 07:13 BP 192 / 61; Pulse 55; Resp 18; Temp 97.3; Pulse Ox 94% on R/A; Weight 45.36 kg; Height ph 5 ft. 0 in. ; Pain 0/10; 11:09 BP 196 / 72; Pulse 59; Resp 18; Pulse Ox 95% on R/A; ld1 07:13 Body Mass Index 19.53 (45.36 kg, 152.4 cm) ph 07:13 Pain Scale: Adult ph MDM: 07:16 Patient medically screened. salvador 07:42 Differential Diagnosis: cardiac arrhythmia, cerebrovascular accident, GI bleed, salvador idiopathic syncope, vasovagal episode. Data reviewed: vital signs, nurses notes, lab test result(s), EKG, radiologic studies. Consideration of Admission/Observation Patient was admitted/placed on observation. Escalation of care including admission/observation considered. I considered the following discharge prescriptions or medication management in the emergency department Medications were administered in the Emergency Department. See MAR. Test considered but Not performed: CT: no ct brain. Care significantly affected by the following chronic conditions: Hypertension, Congestive Heart Failure, cva, high lipids. 07/28 07:32 Order name: Basic Metabolic Panel; Complete Time: 08:41 [facility] 07/28 07:32 Order name: CBC with Diff; Complete Time: 08:41 [facility] 07/28 07:32 Order name: LFT's; Complete Time: 08:41 [facility] 07/28 07:32 Order name: Magnesium; Complete Time: 08:41 [facility] 07/28 07:32 Order name: NT PRO-BNP; Complete Time: 08:41 [facility] 07/28 07:32 Order name: PT-INR; Complete Time: 08:41 [facility] 07/28 07:32 Order name: Troponin HS; Complete Time: 08:41 [facility] 07/28 07:32 Order name: Urinalysis w/ reflexes; Complete Time: 09:58 [facility] 07/28 07:32 Order name: Lipase; Complete Time: 08:41 [facility] 07/28 08:45 Order name: Urine Culture EDMD 06 07:32 Order name: XRAY Chest (1 view); Complete Time: 08:41 [facility] 07/28 08:08 Order name: Echo w/ Doppler [facility] 07/28 07:32 Order name: EKG; Complete Time: 07:36 [facility] 07/28 07:32 Order name: Cardiac monitoring; Complete Time: 07:54 [facility] 07/28 07:32 Order name: EKG - Nurse/Tech; Complete Time: 07:54 [facility] 07/28 07:32 Order name: IV Saline Lock; Complete Time: 07:54 [facility] 07/28 07:32 Order name: Labs collected and sent; Complete Time: 07:54 [facility] 07/28 07:32 Order name: O2 Per Protocol; Complete Time: 07:35 [facility] 07/28 07:32 Order name: O2 Sat Monitoring; Complete Time: 07:35 [facility] EC:07 Rate is 57 beats/min. Rhythm is regular. QRS [place] is Normal. [place] interval is prolonged salvador at 384 msec. QRS interval is normal. QT interval is normal. No Q waves. T waves are Normal. No ST changes noted. Clinical impression: NSR w/ Non-specific ST/T Changes, 1st degree heart block, and No evidence of ischemia. Interpreted by me. Reviewed by me. 10:03 Rate is 62 beats/min. Rhythm is regular. QRS [place] is Normal. [place] interval is prolonged salvador at 422 msec. QRS interval is normal. QT interval is normal. No Q waves. T waves are Normal. No ST changes noted. Clinical impression: Abnormal EKG without significant change, 1st degree heart block, and No evidence of ischemia. Interpreted by me. Reviewed by me. Administered Medications: 08:23 Drug: NS 0.9% IV 1000 ml Route: IV; Rate: 125 ml/hr; Site: right antecubital; ld1 08:23 Drug: NS 0.9% IV 500 ml Route: IV; Rate: bolus; Site: right antecubital; ld1 10:13 Drug: Rocephin IV 1 grams Route: IV; Rate: per protocol; Site: right antecubital; bp Disposition Summary: 07/28/22 10:21 Discharge Ordered Location: Home(07/28/22 10:21) salvador Problem: new(07/28/22 10:21) salvador Symptoms: have improved(07/28/22 10:21) salvador Condition: Stable(07/28/22 10:21) salvador Diagnosis - Bradycardia, unspecified(07/28/22 10:21) salvador - Hypotension due to drugs salvador - Essential (primary) hypertension salvador - UTI/ Urinary tract infection, site not specified(07/28/22 10:21) salvador - Adverse effect of other drugs, medicaments and biological substances - COREG salvador - Syncope Near(07/28/22 10:21) salvador Followup: salvador - With: Allyson Ortega MD - When: Upon discharge from the Emergency Department - Reason: Recheck today's complaints, Continuance of care, Re-evaluation by your physician Discharge Instructions: - Discharge Summary Sheet salvador - Bradycardia, Adult salvador - Hypertension, Adult salvador - Hypotension salvador - Near-Syncope salvador - Urinary Tract Infection, Adult salvador - Urinary Tract Infection, Adult, Dmum-lm-Wqcz salvador - Near-Syncope, Nbxo-km-Drxu salvador - Hypertension, Adult, Qfgg-ce-Ibmo salvador - How to Take Your Blood Pressure, Xdsb-gb-Lrdi salvador - Weakness, Vsxi-nr-Uusb salvador - Managing Your Hypertension salvador Forms: - Medication Reconciliation Form salvador - Thank You Letter salvador - Antibiotic Education salvador - Prescription Opioid Use salvador Prescriptions: - Cipro 250 mg Oral Tablet - take 1 tablet by ORAL route every 12 hours; 14 tablet; Refills: 0, Product salvador Selection Permitted Signatures: Dispatcher [employer] EDMS Hao Joyce MD MD cha Hall, Patricia RN RN ph Seth Morse RN RN Inge Licona RN RN ld1 Corrections: (The following items were deleted from the chart) 07:36 07:34 Urinalysis+U.LAB.BRZ ordered. EDMD EDMS 10: 08:43 Observation salvador salvador 10: 08:43 Leo Garcia cha salvador 10: 08:43 Telemetry/MedSurg (observation) salvador salvador 10: 08:43 Fair salvador salvador 10: 08:43 new salvador salvador 08:43 have improved salvador salvador :43 Standard salvador salvador :43 salvador salvador :43 Bradycardia, unspecified salvador salvador 08:43 Syncope Near salvador salvador 08:43 Weakness salvador salvador 09:59 UTI/ Urinary tract infection, site not specified salvador salvador
--- NOTE | 2022-07-28 08:44 | ER ---
Nurse's Notes [facility] Name: Madiha Breaux Age: 87 yrs Sex: Female : 1935 Arrival Date: 07/28/2022 Time: 06:54 Bed 8 Private MD: Diagnosis: Bradycardia, unspecified;Hypotension due to drugs;Essential (primary) hypertension;UTI/ Urinary tract infection, site not specified;Adverse effect of other drugs, medicaments and biological substances-COREG;Syncope Near Presentation: 07/28 07:13 Coronavirus screen: Vaccine status: Patient reports being unvaccinated. Ebola Screen: ph No symptoms or risks identified at this time. Initial Sepsis Screen: Does the patient meet any 2 criteria? No. Patient's initial sepsis screen is negative. Does the patient have a suspected source of infection? No. Patient's initial sepsis screen is negative. Risk Assessment: Do you want to hurt yourself or someone else? Patient reports no desire to harm self or others. Onset of symptoms was July 28, 2022. 07:13 Acuity: DAMIR 3 ph 07:22 Chief complaint: Patient states: Low BP readings at home the last few days, spoke w/ ph sprayer automatic spray machine who instructed her to take no medications for a day and then to start taking half of prescribed dose today. Pt takes carvedilol and losartan, lowest BP at home 80s systolic. BP in triage elevated, pt states that she has not taken any medicine this morning. 07:22 Method Of Arrival: Wheelchair ph Triage Assessment: 11:09 General: Appears in no apparent distress. comfortable, Behavior is calm, cooperative, ld1 appropriate for age. Pain: Denies pain. Historical: - Allergies: 07:12 Codeine; ph 07:12 Demerol; ph 07:12 Fentanyl; ph 07:12 lamital; ph 07:12 [place]; ph 07:12 PENICILLINS; ph 07:12 PORK/PORCINE PRODUCT DERIVATIVES; ph 07:12 Sulfa (Sulfonamide Antibiotics); ph - PMHx: 07:12 Congestive heart failure; CVA; Hyperlipidemia; Hypertension; Myocardial infarction; ph Parkinsons; PTSD; - Immunization history:: Adult Immunizations up to date. - Social history:: Smoking status: Patient denies any tobacco usage or history of. Screenin:13 [facility] ED Fall Risk Assessment (Adult) History of falling in the last 3 months, ld1 including since admission No falls in past 3 months (0 pts). Abuse screen: Denies threats or abuse. Denies injuries from another. Nutritional screening: No deficits noted. Tuberculosis screening: No symptoms or risk factors identified. Assessment: 08:13 Reassessment: See triage assessment. ld1 08:48 Reassessment: Taylor [place] - [phone]. ld1 Vital Signs: 07:13 BP 192 / 61; Pulse 55; Resp 18; Temp 97.3; Pulse Ox 94% on R/A; Weight 45.36 kg; Height ph 5 ft. 0 in. ; Pain 0/10; 11:09 BP 196 / 72; Pulse 59; Resp 18; Pulse Ox 95% on R/A; ld1 07:13 Body Mass Index 19.53 (45.36 kg, 152.4 cm) ph 07:13 Pain Scale: Adult ph ED Course: 07:05 Patient arrived in ED. ja2 07:14 Triage completed. ph 07:14 Seth Morse, RN is Primary Nurse. bp 07:14 Arm band placed on Patient placed in an exam room. ph 07:16 Hao Joyce MD is Attending Physician. salvador 07:53 Inserted saline lock: 20 gauge in right antecubital area, using aseptic technique. zm Blood collected. 07:53 Initial lab(s) drawn, by sc, sent to lab. zm 07:53 Lipase Sent. zm 07:53 Basic Metabolic Panel Sent. zm 07:53 CBC with Diff Sent. zm 07:53 LFT's Sent. zm 07:53 Magnesium Sent. zm 07:53 NT PRO-BNP Sent. zm 07:53 PT-INR Sent. zm 07:53 Troponin HS Sent. zm 08:13 Patient has correct armband on for positive identification. Placed in gown. Bed in low ld1 position. Call light in reach. Side rails up X2. court monitor on. Pulse ox on. NIBP on. Door closed. Noise minimized. Warm blanket given. 08:13 No provider procedures requiring assistance completed. ld1 08:23 Urinalysis w/ reflexes Sent. ld1 08:28 XRAY Chest (1 view) In Process Unspecified. EDMS 08:43 Leo Garcia MD is Hospitalizing Provider. salvador 10:19 Allyson Ortega MD is Referral Physician. salvador 11:09 IV discontinued, intact, bleeding controlled, No redness/swelling at site. ld1 Administered Medications: 08:23 Drug: NS 0.9% IV 1000 ml Route: IV; Rate: 125 ml/hr; Site: right antecubital; ld1 08:23 Drug: NS 0.9% IV 500 ml Route: IV; Rate: bolus; Site: right antecubital; ld1 10:13 Drug: Rocephin IV 1 grams Route: IV; Rate: per protocol; Site: right antecubital; bp Medication: 08:13 VIS not applicable for this client. ld1 Outcome: 08:43 Decision to Hospitalize by Provider. salvador 10:21 Discharge ordered by . salvador 11:09 Discharged to home via wheelchair, with family. ld1 11:09 Condition: stable 11:09 Discharge instructions given to patient, family, Instructed on discharge instructions, follow up and referral plans. medication usage, Demonstrated understanding of instructions, follow-up care, medications, Prescriptions given X 1. 11:10 Patient left the ED. ld1 Signatures: Dispatcher [employer] EDMS Hao Joyce MD MD cha Hall, Patricia RN RN Seth Freeman RN RN Inge Licona RN RN ld1 Wilda Bush Zaina zm
[2022-07-28] MEDS ORDERED: CEFTRIAXONE 1000 MG/VIAL ONE (10:17)
[2022-07-28] MEDS ORDERED: NA CHLORIDE 0.9% 100 ML ONE (10:18)
[2022-07-28 11:39] VITALS: TEMP 97.3
[2022-07-28 11:41] VITALS: BP 196/72; O2SAT 95
--- NOTE | 2022-07-29 06:40 | ECHO ---
HEIGHT: 5 ft 0 in WEIGHT: 100 lb 0 oz DATE OF STUDY: 07/28/[address]: Hao Joyce MD 2-DIMENSIONAL: YES M.MODE: YES DOPPLER: YES COLOR FLOW: YES TDS: PORTABLE: YES DEFINITY: BUBBLE STUDY: DIAGNOSIS: SYNCOPE CARDIAC HISTORY: CATHERIZATION: YES SURGERY: PROSTHETIC VALVE: PACEMAKER: MEASUREMENTS (cm) DIASTOLIC (NORMALS) SYSTOLIC (NORMALS) IVSd 0.9 (0.6-1.2) LA Diam 3.5 (1.9-4.0) LVEF 76% LVIDd 4.1 (3.5-5.7) LVIDs 2.3 (2.0-3.5) %FS 44% LVPWd 0.9 (0.6-1.2) Ao Diam 2.5 (2.0-3.7) 2 DIMENSIONAL ASSESSMENT: RIGHT ATRIUM: NORMAL LEFT ATRIUM: NORMAL RIGHT VENTRICLE: NORMAL LEFT VENTRICLE: NORMAL TRICUSPID VALVE: MILD TRICUSPID REGURGITATION MITRAL VALVE: MILD MITRAL REGURGITATION PULMONIC VALVE: MILD PULMONIC INSUFFICIENCY AORTIC VALVE: MILD AORTIC INSUFFICIENCY PERICARDIAL EFFUSION: TRACE AORTIC ROOT: NORMAL LEFT VENTRICULAR WALL MOTION: NORMAL DOPPLER/COLOR FLOW: SEE BELOW COMMENTS: 1. NORMAL LEFT VENTRICULAR EJECTION FRACTION GREATER THAN 60%. 2. NORMAL WALL MOTION 3. MILD MITRAL REGURGITATION, AORTIC INSUFFICIENCY, TRICUSPID REGURGITATION, PULMONIC INSUFFICIENCY 4. RIGHT VENTRICULAR SYSTOLIC PRESSURE IS 45-50 mmHg (ELEVATED). TECHNOLOGIST: ALE ELLSWORTH
--- NOTE | 2022-07-29 17:43 | EKG ---
Test Date: 2022-07-28 Test Time: 09:55:22 Manual Lathe Machinist: NIC MEASUREMENT RESULTS: Intervals: Rate: 62 IA: 422 QRSD: 78 QT: 428 QTc: 434 [place]: P: 72 IA: 422 QRS: -64 T: 76 INTERPRETIVE STATEMENTS: Sinus rhythm with 1st degree AV block Left anterior fascicular block Anteroseptal infarct, age undetermined Abnormal ECG Compared to ECG 10/19/2021 13:01:21 Sinus bradycardia no longer present Atrial premature complex(es) no longer present Myocardial infarct finding still present Electronically Signed On 07-29-22 17:40:03 CDT by Chris Strauss
== END 2022-07-28 11:10 | disposition home or self-care (01) ==
LOC: ER 06:54
DX: I95.2 Hypotension due to drugs (principal); R00.1 Bradycardia, unspecified; N39.0 Urinary tract infection, site not specified; T44.7X5A Adverse effect of beta-adrenoreceptor antagonists, initial encounter; I10 Essential (primary) hypertension; I50.9 Heart failure, unspecified; G20 Parkinson's disease; Z86.73 Personal history of transient ischemic attack (TIA), and cerebral infarction without residual deficits; Z88.0 Allergy status to penicillin; Z88.2 Allergy status to sulfonamides; Z88.5 Allergy status to narcotic agent; Z88.8 Allergy status to other drugs, medicaments and biological substances; Z91.014 Allergy to mammalian meats
CPT/HCPCS: 93306; 87088; 85025; 81001; 87086; 80048; 36415; 83735; 85610; 80076; 84484; 83690; 83880; 71045; J7030; J0696; 93005

== ENCOUNTER 2022-08-21 09:19 | Inpatient (IN) | payer OTHER ==
--- OUTSIDE RECORDS SUMMARY | 2022-08-21 09:25 | XMS REPORT | Continuity of Care Document ---
:1935 Author Organization [facility] t Address [address] [place] [address] Care Team Providers Name Role Phone DENNIS HARRIS Primary Care Physician Unavailable LAWANDA ALCARAZ Attending Clinician Unavailable LAWANDA ALCARAZ Attending Clinician Unavailable Doctor Unassigned, [place] Attending Clinician Unavailable Therapist, Ad[facility] Respiratory Attending [...] Univers bleeding bleeding 8-26 ity of 00:00: [address] Allergies, Adverse Reactions, Alerts Allergy Allergy [...] Active Univers ALLERGIE Class ity of S [facility] Social History Social Habit Start Date Stop Date Quantity Comments Source History of Cigarette Smoker Universi ty of tobacco use [facility] Exposure to 2022-04-04 2022-04-14 Not sure [facility] SARS-CoV-2 00:00:00 12:01:00 [facility] (event) May Alcohol intake 2022-01-14 2022-01-14 Ex-drinker [facility] 00:00:00 00:00:00 (finding) [facility] Tobacco use and 2022-01-08 2022-01-08 Smokeless tobacco Un iversity of exposure 00:00:00 00:00:00 non-user [place] [facility] History SDOH Food 2021-10-06 2021-10-06 1 Univers ity of Worry 00:00:00 00:00:00 [place] [facility] History SDOH Food 2021-10-06 2021-10-06 1 Univers ity of Scarcity 00:00:00 00:00:00 [place] [facility] History SDOH 2021-10-06 2021-10-06 2 University o f Transport Med 00:00:00 00:00:00 [place] [facility] History SDOH 2021-10-06 2021-10-06 2 University o f Transport Non-Med 00:00:00 00:00:00 [facility] [place] [facility] edical Branch Sex Assigned At [birth year] Universit y of 00:00:00 00:00:00 [facility] Smoking Status Start Date Stop Date Source Never smoked tobacco [facility] Ex-smoker 2021-10-02 00:00:00 2021-10-02 00:00:00 Universi ty of [facility] Medications Ordered Filled Start Stop Current Ordering [...] Intra-op lactated 2021-02- No 1000mL at 42 [facility] ringers IV 2- 12-07 mL/hr, ity of infusion 16:15: 16:10 1,000 mL, Jeremías as 1,000 mL 00 :00 IV Medical Infusion, Branch ONCE, 1 dose, On Tue01/13/22 at 1015, Routine, DSU Pre-op lactated 2021-02- No 1000mL at 42 [facility] ringers IV 2- 12-07 mL/hr, ity of infusion 16:15: 16:10 1,000 mL, Jeremías as 1,000 mL 00 :00 IV Medical Infusion, Branch ONCE, 1 dose, On Tue01/13/22 at 1015, Routine, DSU Pre-op zolpidem 5 2021-02 Yes 5mg Take 5 mg Un aziza mg tablet 2-07 by mouth ity of 13:24: at [place] [address] bedtime. Medical Branch brexpiprazo 2021-02 Yes 1mg Take 1 mg U nivers le 2-07 by mouth ity of (REXULTI) 1 13:24: [place] Tab 06 [place] hydrALAZINE 2021-02 Yes 25mg Take 25 mg Univers 25 mg 2-07 by mouth ity of tablet 13:24: in the [place] [address] morning Medical and 25 mg Branch in the evening. FLUoxetine 2021-02 Yes 20mg Take 20 mg U nivers 20 mg 2-07 by mouth ity of capsule 13:24: in the [place] [address] morning. Medical Branch atorvastati 2021-02 Yes 10mg Take 10 mg Univers n 10 mg 2-07 by mouth ity of tablet 13:24: at [place] [address] bedtime. Medical Branch albuterol 2021-02 Yes 1{ampul [...] mouth ity of tablet 13:24: in the [place] 06 morning. Medical Branch carvediloL 2021-02 Yes 3.125mg Take 3.125 Univers 3.125 mg 2-07 mg by ity of tablet 13:24: mouth in [place] 06 the Medical morning Branch and 3.125 mg in the evening. Take with meals. furosemide 2021-02 Yes 10mg Take 10 mg U nivers 20 mg 2-07 by mouth ity of tablet 13:24: every [place] [address] other day. Medical Branch apixaban 2021-02 Yes 2.5mg Take 2.5 Univ ers (ELIQUIS) 2-07 mg by ity of 2.5 mg 13:24: mouth in [place] [facility] 06 the Medical morning Branch and 2.5 mg in the evening. zolpidem 5 2021-02 Yes 5mg Take 5 mg Un aziza mg tablet 2-07 by mouth ity of 13:24: at [place] [address] bedtime. Medical Branch brexpiprazo 2021-02 Yes 1mg Take 1 mg U nivers le 2-07 by mouth ity of (REXULTI) 1 13:24: [place]. [place] mg Tab Medical Branch hydrALAZINE 2021-02 Yes 25mg Take 25 mg Univers 25 mg 2-07 by mouth ity of tablet 13:24: in the [place] 06 morning Medical and 25 mg Branch in the evening. FLUoxetine 2021-02 Yes 20mg Take 20 mg U nivers 20 mg 2-07 by mouth ity of capsule 13:24: in the [place] 06 morning. Medical Branch atorvastati 2021-02 Yes 10mg Take 10 mg Univers n 10 mg 2-07 by mouth ity of tablet 13:24: at [place] [address] bedtime. Medical Branch albuterol 2021-02 Yes 1{ampul [...] mouth ity of tablet 13:24: in the [place] [address] morning. Medical Branch carvediloL 2021-02 Yes 3.125mg Take 3.125 Univers 3.125 mg 2-07 mg by ity of tablet 13:24: mouth in [place] 06 the Medical morning Branch and 3.125 mg in the evening. Take with meals. furosemide 2021-02 Yes 10mg Take 10 mg U nivers 20 mg 2-07 by mouth ity of tablet 13:24: every [place] [address] other day. Medical Branch apixaban 2021-02 Yes 2.5mg Take 2.5 Univ ers (ELIQUIS) 2-07 mg by ity of 2.5 mg 13:24: mouth in [facility] 06 the Medical morning Branch and 2.5 mg in the evening. zolpidem 5 2021-02 Yes 5mg Take 5 mg Un aziza mg tablet 2-07 by mouth ity of 13:24: at [place] [address] bedtime. Medical Branch brexpiprazo 2021-02 Yes 1mg Take 1 mg U nivers le 2-07 by mouth ity of (REXULTI) 1 13:24: [place]. [place] mg Tab Medical Branch hydrALAZINE 2021-02 Yes 25mg Take 25 mg Univers 25 mg 2-07 by mouth ity of tablet 13:24: in the [place] 06 morning Medical and 25 mg Branch in the evening. FLUoxetine 2021-02 Yes 20mg Take 20 mg U nivers 20 mg 2-07 by mouth ity of capsule 13:24: in the [place] [address] morning. Medical Branch atorvastati 2021-02 Yes 10mg Take 10 mg Univers n 10 mg 2-07 by mouth ity of tablet 13:24: at [place] [address] bedtime. Medical Branch albuterol 2021-02 Yes 1{ampul Inhale 1 U nivers 0.63 mg/3 2-07 e} Ampule as ity o f mL 13:24: needed. [place] nebulizer 06 Medical [facility] Branch albuterol 2021-02 Yes 2{puff} Inhale 2 U nivers 90 2-07 Puffs as ity of mcg/actuati 13:24: needed. Jeremías as on inhaler 06 Medical Branch ARIPiprazol 2021-02 Yes 2mg Take 2 mg U nivers e 2 mg 2-07 by mouth ity of tablet 13:24: in the [place] [address] morning. Medical Branch carvediloL 2021-02 Yes 3.125mg Take 3.125 Univers 3.125 mg 2-07 mg by ity of tablet 13:24: mouth in [place] 06 the Medical morning Branch and 3.125 mg in the evening. Take with meals. furosemide 2021-02 Yes 10mg Take 10 mg U nivers 20 mg 2-07 by mouth ity of tablet 13:24: every [place] [address] other day. Medical Branch apixaban 2021-02 Yes 2.5mg Take 2.5 Univ ers (ELIQUIS) 2-07 mg by ity of 2.5 mg 13:24: mouth in [facility] 06 the Medical morning Branch and 2.5 mg in the evening. zolpidem 5 2021-02 Yes 5mg Take 5 mg Un aziza mg tablet 2-07 by mouth ity of 13:24: at [place] [address] bedtime. Medical Branch brexpiprazo 2021-02 Yes 1mg Take 1 mg U nivers le 2-07 by mouth ity of (REXULTI) 1 13:24: [place]. [place] mg Tab Medical Branch hydrALAZINE 2021-02 Yes 25mg Take 25 mg Univers 25 mg 2-07 by mouth ity of tablet 13:24: in the [place] [address] morning Medical and 25 mg Branch in the evening. FLUoxetine 2021-02 Yes 20mg Take 20 mg U nivers 20 mg 2-07 by mouth ity of capsule 13:24: in the [place] [address] morning. Medical Branch atorvastati 2021-02 Yes 10mg Take 10 mg Univers n 10 mg 2-07 by mouth ity of tablet 13:24: at [place] [address] bedtime. Medical Branch albuterol 2021-02 Yes 1{ampul Inhale 1 U nivers 0.63 mg/3 2-07 e} Ampule as ity o f mL 13:24: needed. [place] nebulizer 06 Medical [facility] Branch albuterol 2021-02 Yes 2{puff} Inhale 2 U nivers 90 2-07 Puffs as ity of mcg/actuati 13:24: needed. Jeremías as on inhaler Medical Branch ARIPiprazol 2021-02 Yes 2mg Take 2 mg U nivers e 2 mg 2-07 by mouth ity of tablet 13:24: in the [place] [address] morning. Medical Branch carvediloL 2021-02 Yes 3.125mg Take 3.125 Univers 3.125 mg 2-07 mg by ity of tablet 13:24: mouth in [place] the Medical morning Branch and 3.125 mg in the evening. Take with meals. furosemide 2021-02 Yes 10mg Take 10 mg U nivers 20 mg 2-07 by mouth ity of tablet 13:24: every [place] [address] other day. Medical Branch apixaban 2021-02 Yes 2.5mg Take 2.5 Univ ers (ELIQUIS) 2-07 mg by ity of 2.5 mg 13:24: mouth in [place] [address] the Medical morning Branch and 2.5 mg in the evening. zolpidem 5 2021-02 Yes 5mg Take 5 mg Un aziza mg tablet 2-07 by mouth ity of 13:24: at [place] [address] bedtime. Medical Branch brexpiprazo 2021-02 Yes 1mg Take 1 mg U nivers le 2-07 by mouth ity of (REXULTI) 1 13:24: [place]. [place] mg Tab Medical Branch hydrALAZINE 2021-02 Yes 25mg Take 25 mg Univers 25 mg 2-07 by mouth ity of tablet 13:24: in the [place] [address] morning Medical and 25 mg Branch in the evening. FLUoxetine 2021-02 Yes 20mg Take 20 mg U nivers 20 mg 2-07 by mouth ity of capsule 13:24: in the [place] [address] morning. Medical Branch atorvastati 2021-02 Yes 10mg Take 10 mg Univers n 10 mg 2-07 by mouth ity of tablet 13:24: at [place] [address] bedtime. Medical Branch albuterol 2021-02 Yes 1{ampul Inhale 1 U nivers 0.63 mg/3 2-07 e} Ampule as ity o f mL 13:24: needed. [place] nebulizer 06 Medical [facility] Branch albuterol 2021-02 Yes 2{puff} Inhale 2 U nivers 90 2-07 Puffs as ity of mcg/actuati 13:24: needed. Jeremías as on inhaler 06 Medical Branch ARIPiprazol 2021-02 Yes 2mg Take 2 mg U nivers e 2 mg 2-07 by mouth ity of tablet 13:24: in the [place] [address] morning. Medical Branch carvediloL 2021-02 Yes 3.125mg Take 3.125 Univers 3.125 mg 2-07 mg by ity of tablet 13:24: mouth in [place] 06 the Medical morning Branch and 3.125 mg in the evening. Take with meals. furosemide 2021-02 Yes 10mg Take 10 mg U nivers 20 mg 2-07 by mouth ity of tablet 13:24: every [place] [address] other day. Medical Branch apixaban 2021-02 Yes 2.5mg Take 2.5 Univ ers (ELIQUIS) 2-07 mg by ity of 2.5 mg 13:24: mouth in [facility] 06 the Medical morning Branch and 2.5 mg in the evening. zolpidem 5 2021-02 Yes 5mg Take 5 mg Un aziza mg tablet 2-07 by mouth ity of 13:24: at [place] [address] bedtime. Medical Branch brexpiprazo 2021-02 Yes 1mg Take 1 mg U nivers le 2-07 by mouth ity of (REXULTI) 1 13:24: [place]. [place] mg Tab [place] Branch hydrALAZINE 2021-02 Yes 25mg Take 25 mg Univers 25 mg 2-07 by mouth ity of tablet 13:24: in the [place] [address] morning Medical and 25 mg Branch in the evening. FLUoxetine 2021-02 Yes 20mg Take 20 mg U nivers 20 mg 2-07 by mouth ity of capsule 13:24: in the [place] [address] morning. Medical Branch atorvastati 2021-02 Yes 10mg Take 10 mg Univers n 10 mg 2-07 by mouth ity of tablet 13:24: at [place] [address] bedtime. Medical Branch albuterol 2021-02 Yes 1{ampul Inhale 1 U nivers 0.63 mg/3 2-07 e} Ampule as ity o f mL 13:24: needed. [place] nebulizer [address] [place] [address] Branch albuterol 2021-02 Yes 2{puff} Inhale 2 U nivers 90 2-07 Puffs as ity of mcg/actuati 13:24: needed. Jeremías as on inhaler 06 Medical Branch ARIPiprazol 2021-02 Yes 2mg Take 2 mg U nivers e 2 mg 2-07 by mouth ity of tablet 13:24: in the [place] 06 morning. Medical Branch carvediloL 2021-02 Yes 3.125mg Take 3.125 Univers 3.125 mg 2-07 mg by ity of tablet 13:24: mouth in [place] [address] the Medical morning Branch and 3.125 mg in the evening. Take with meals. furosemide 2021-02 Yes 10mg Take 10 mg U nivers 20 mg 2-07 by mouth ity of tablet 13:24: every [place] [address] other day. Medical Branch apixaban 2021-02 Yes 2.5mg Take 2.5 Univ ers (ELIQUIS) 2-07 mg by ity of 2.5 mg 13:24: mouth in [place] [address] the Medical morning Branch and 2.5 mg in the evening. methylpredn No 125mg 125 mg, U nivers isolone sod 10-16 Intravenou i ty of succ 02:47: 02:51 s, ONCE, 1 [place] (SOLU-MEDRO 00 :00 dose, On Medi carlyle L) [facility] 10/15/21 Branch injection at 2200, 2 125 mg mL acetaminoph 2021- No 1000mg 1,000 mg, Univers en 10-16 Oral, ONCE ity of (TYLENOL) 01:46: 02:07 NOW, 1 [place] tablet 00 :00 dose, On Medical 1,000 [...] 10/15/21 at 2045, HIEU nirmatrelvi 2021- No [id number] 2{tbl} Take 2 Univers r-ritonavir 10-15 tablets by i ty of (PAXLOVID, 00:00: 04:59 mouth in [place] EUA,) 00 :00 the Medical 150-100 mg morning Branch tablet and 2 tablets in the evening. Do all this for 5 days. bebtelovima 2021- No [id number] 175mg Inject 2 Univers b, No 10-15 mL as ity of Charge, 175 00:00: 04:59 directed [place] mg/2 mL 00 :00 once now Medical (87.5 for 1 Branch mg/mL) Soln dose. zolpidem Yes 5mg Take 5 mg Univ ers (AMBIEN) 5 8-29 by mouth ity o f mg tablet 17:52: at [place] [address] bedtime. Medical Branch brexpiprazo Yes 1mg Take 1 mg U nivers le 8-29 by mouth ity of (REXULTI) 1 17:52: [place]. [place] mg Tab Medical Branch hydrALAZINE Yes 25mg Take 25 mg Univers 25 mg 8-29 by mouth ity of tablet 17:52: in the [place] [address] morning Medical and 25 mg Branch in the evening. FLUoxetine Yes 10mg Take 10 mg U nivers 10 mg 8-29 by mouth ity of capsule 17:52: in the [place] [address] morning. Medical Branch atorvastati 0 Yes 10mg Take 10 mg Univers n (LIPITOR) 8-29 by mouth ity of 10 mg 17:52: at [facility] 08 bedtime. Medical Branch zolpidem 0 Yes 5mg Take 5 mg Univ ers (AMBIEN) 5 8-29 by mouth ity o f mg tablet 17:52: at [place] 08 bedtime. Medical Branch brexpiprazo 0 Yes [...] mouth ity of capsule 17:52: in the [place] 08 morning. Medical Branch atorvastati 0 Yes 10mg Take 10 mg Univers n (LIPITOR) 8-29 by mouth ity of 10 mg 17:52: at [facility] 08 bedtime. Medical Branch zolpidem 0 Yes 5mg Take 5 mg Univ ers (AMBIEN) 5 8-29 by mouth ity o f mg tablet 17:52: at [place] [address] bedtime. Medical Branch brexpiprazo 0 Yes 1mg Take 1 mg U nivers le 8-29 by mouth ity of (REXULTI) 1 17:52: [place]. [place] mg Tab Medical Branch hydrALAZINE 0 Yes 25mg Take 25 mg Univers 25 mg 8-29 by mouth ity of tablet 17:52: in the [place] 08 morning Medical and 25 mg Branch in the evening. FLUoxetine 2021-0 Yes 10mg Take 10 mg U nivers 10 mg 8-29 by mouth ity of capsule 17:52: in the [place] [address] morning. Medical Branch atorvastati 0 Yes 10mg Take 10 mg Univers n (LIPITOR) 8-29 by mouth ity of 10 mg 17:52: at [place] tablet 08 bedtime. Medical Branch zolpidem 2021-0 Yes 5mg Take 5 mg Univ ers (AMBIEN) 5 8-29 by mouth ity o f mg tablet 17:52: at [place] [address] bedtime. Medical Branch brexpiprazo 0 Yes 1mg Take 1 mg U nivers le 8-29 by mouth ity of (REXULTI) 1 17:52: daily. [place] mg Tab 08 Medical Branch hydrALAZINE 2021-0 Yes 25mg Take 25 mg Univers 25 mg 8-29 by mouth ity of tablet 17:52: in the [place] 08 morning Medical and 25 mg Branch in the evening. FLUoxetine 2021-0 Yes 10mg Take 10 mg U nivers 10 mg 8-29 by mouth ity of capsule 17:52: in the [place] 08 morning. Medical Branch atorvastati 2021-0 Yes 10mg Take 10 mg Univers n (LIPITOR) 8-29 by mouth ity of 10 mg 17:52: at [facility] 08 bedtime. Medical Branch zolpidem 2021-0 Yes 5mg Take 5 mg Univ ers (AMBIEN) 5 8-29 by mouth ity o f mg tablet 17:52: at [place] [address] bedtime. Medical Branch brexpiprazo 2021-0 Yes 1mg Take 1 mg U nivers le 8-29 by mouth ity of (REXULTI) 1 17:52: daily. [place] mg Tab 08 Medical Branch hydrALAZINE 2021-0 Yes 25mg Take 25 mg Univers 25 mg 8-29 by mouth ity of tablet 17:52: in the [place] 08 morning Medical and 25 mg Branch in the evening. FLUoxetine 2021-0 Yes 10mg Take 10 mg U nivers 10 mg 8-29 by mouth ity of capsule 17:52: in the [place] [address] morning. Medical Branch atorvastati 2021-0 Yes 10mg Take 10 mg Univers n (LIPITOR) 8-29 by mouth ity of 10 mg 17:52: at [facility] 08 bedtime. Medical Branch zolpidem 2021-0 Yes 5mg Take 5 mg Univ ers (AMBIEN) 5 8-29 by mouth ity o f mg tablet 17:52: at [place] [address] bedtime. Medical Branch brexpiprazo 2021-0 Yes 1mg Take 1 mg U nivers le 8-29 by mouth ity of (REXULTI) 1 17:52: daily. [place] mg Tab 08 Medical Branch hydrALAZINE 2021-0 Yes 25mg Take 25 mg Univers 25 mg 8-29 by mouth ity of tablet 17:52: in the [place] 08 morning Medical and 25 mg Branch [...] ity o f mg tablet 17:52: at [place] 08 bedtime. Medical Branch brexpiprazo Yes 1mg Take 1 mg U nivers le 10-05 by mouth ity of (REXULTI) 1 17:52: daily. [place] mg Tab 08 Medical Branch hydrALAZINE Yes 25mg Take 25 mg Univers 25 mg 8-29 by mouth ity of tablet 17:52: in the [place] 08 morning Medical and 25 mg Branch in the evening. FLUoxetine Yes 10mg Take 10 mg U nivers 10 mg 10-05 by mouth ity of capsule 17:52: in the [place] 08 morning. Medical Branch atorvastati Yes 10mg Take 10 mg Univers n (LIPITOR) 10-05 by mouth ity of 10 mg 17:52: at [place] tablet 08 bedtime. Medical Branch apixaban 2021- No 5mg Take 5 mg Uni vers (ELIQUIS) 5 10-05 by mouth ity of mg tablet 14:13: 00:00 in the [place] 20 :00 morning Medical and 5 mg Branch in the evening. apixaban Yes 2.5mg 2.5 mg, Unive rs (ELIQUIS) 10-05 Oral, BID, ity of tablet 2.5 01:00: First dose [place] mg 00 on Sun Medical 10/04/21 at Branch 1999, Until Discontinu ed, Routine
Indicatio ns: Non-Valvul ar Atrial Fibrillati on budesonide- Yes [id number] 2{puff} Inhale 2 Univers formoteroL 8-29 Puffs in ity o f 160-4.5 00:00: the [place] mcg/actuati 00 morning Medic al on inhaler and 2 Branch Puffs in the evening. vancomycin Yes [id number] 125mg Take 1 Univers 125 mg 8-29 capsule by ity of capsule 00:00: mouth 4 [place] ([facility]) Medical times Branch daily. budesonide- Yes [id number] 2{puff} Inhale 2 Univers formoteroL 8-29 Puffs in ity o f 160-4.5 00:00: the [place] mcg/actuati 00 morning Medic al on inhaler and 2 Branch Puffs in the evening. vancomycin Yes [id number] 125mg Take 1 Univers 125 mg 8-29 capsule by ity of capsule 00:00: mouth 4 [place] ([facility]) Medical times Branch daily. budesonide- Yes [id number] 2{puff} Inhale 2 Univers formoteroL 8-29 Puffs in ity o f 160-4.5 00:00: the [place] mcg/actuati 00 morning Medic al on inhaler and 2 Branch Puffs in the evening. vancomycin Yes [id number] 125mg Take 1 Univers 125 mg 8-29 capsule by ity of capsule 00:00: mouth 4 [place] ([facility]) Medical times Branch daily. budesonide- Yes [id number] 2{puff} Inhale 2 Univers formoteroL 8-29 Puffs in ity o f 160-4.5 00:00: the [place] mcg/actuati morning Medic al on inhaler and 2 Branch Puffs in the evening. vancomycin Yes [id number] 125mg Take 1 Univers 125 mg 8-29 capsule by ity of capsule 00:00: mouth 4 [place] ([facility]) Medical times Branch daily. budesonide- Yes [id number] 2{puff} Inhale 2 Univers formoteroL 8-29 Puffs in ity o f 160-4.5 00:00: the [place] mcg/actuati 00 morning Medic al on inhaler and 2 Branch Puffs in the evening. vancomycin 0 Yes [id number] 125mg Take 1 Univers 125 mg 8-29 capsule by ity of capsule 00:00: mouth 4 [place] ([facility]) Medical times Branch daily. budesonide- 0 Yes [id number] 2{puff} Inhale 2 Univers formoteroL 8-29 Puffs in ity o f 160-4.5 00:00: the [place] mcg/actuati 00 morning Medic al on inhaler and 2 Branch Puffs in the evening. vancomycin Yes [id number] 125mg Take 1 Univers 125 mg 8-29 capsule by ity of capsule 00:00: mouth 4 [place] (four) Medical times Branch daily. budesonide- Yes [id number] 2{puff} Inhale 2 Univers formoteroL 8-29 Puffs in ity o f 160-4.5 00:00: the [place] mcg/actuati 00 morning Medic al on inhaler and 2 Branch Puffs in the evening. vancomycin Yes [id number] 125mg Take 1 Univers 125 mg 8-29 capsule by ity of capsule 00:00: mouth 4 [place] (four) Medical times Branch daily. budesonide- Yes [id number] 2{puff} Inhale 2 Univers formoteroL 8-29 Puffs in ity o f 160-4.5 00:00: the [place] mcg/actuati 00 morning Medic al on inhaler and 2 Branch Puffs in the evening. vancomycin Yes [id number] 125mg Take 1 Univers 125 mg 8-29 capsule by ity of capsule 00:00: mouth 4 [place] (four) Medical times Branch daily. budesonide- Yes [id number] 2{puff} Inhale 2 Univers formoteroL 8-29 Puffs in ity o f 160-4.5 00:00: the [place] mcg/actuati 00 morning Medic al on inhaler and 2 Branch Puffs in the evening. vancomycin Yes [id number] 125mg Take 1 Univers 125 mg 8-29 capsule by ity of capsule 00:00: mouth 4 [place] (four) Medical times Branch daily. budesonide- Yes [id number] 2{puff} Inhale 2 Univers formoteroL 8-29 Puffs in ity o f 160-4.5 00:00: the [place] mcg/actuati 00 morning Medic al on inhaler and 2 Branch Puffs in the evening. vancomycin 0 Yes [id number] 125mg Take 1 Univers 125 mg 8-29 capsule by ity of capsule 00:00: mouth 4 [place] (four) Medical times Branch daily. budesonide- Yes [id number] 2{puff} Inhale 2 Univers formoteroL 8-29 Puffs in ity o f 160-4.5 00:00: the [place] mcg/actuati 00 morning Medic al on inhaler and 2 Branch Puffs in the evening. vancomycin Yes [id number] 125mg Take 1 Univers 125 mg 8-29 capsule by ity of capsule 00:00: mouth 4 [place] 00 (four) Medical times Branch daily. budesonide- Yes [id number] 2{puff} Inhale 2 Univers formoteroL 8-29 Puffs in ity o f 160-4.5 00:00: the [place] mcg/actuati 00 morning Medic al on inhaler and 2 Branch Puffs in the evening. vancomycin Yes [id number] 125mg Take 1 Univers 125 mg 8-29 capsule by ity of capsule 00:00: mouth 4 [place] 00 (four) Medical times Branch daily. budesonide- Yes [id number] 2{puff} Inhale 2 Univers formoteroL 8-29 Puffs in ity o f 160-4.5 00:00: the [place] mcg/actuati morning Medic al on inhaler and 2 Branch Puffs in the evening. vancomycin Yes [id number] 125mg Take 1 Univers 125 mg 8-29 capsule by ity of capsule 00:00: mouth 4 [place] [address] (four) Medical times Branch daily. apixaban 2021- No 1358 2.5mg Take 1 Unive rs 2.5 mg 8-29 11-28 tablet by ity of tablet 00:00: 05:59 mouth in [place] 00 :00 the Medical morning Branch and [...] ity of tablet 00:00: 05:59 mouth in [place] 00 :00 the Medical morning Branch and 1 tablet in the evening. Do all this for 90 days. Indication s: atrial fibrillati on apixaban 2021-0 2021- No 1358 2.5mg Take 1 Unive rs 2.5 mg 8-29 11-28 tablet by ity of tablet 00:00: 05:59 mouth in [place] 00 :00 the Medical morning Branch and [...] ity of tablet 00:00: 05:59 mouth in [place] 00 :00 the Medical morning Branch and 1 tablet in the evening. Do all this for 90 days. Indication s: atrial fibrillati on apixaban 2021-0 2021- No 1358 2.5mg Take 1 Unive rs 2.5 mg 8-29 11-28 tablet by ity of tablet 00:00: 05:59 mouth in [place] 00 :00 the Medical morning Branch and 1 tablet in the evening. Do all this for 90 days. Indication s: atrial fibrillati on apixaban 2021-0 2021- No 1358 2.5mg Take 1 Unive rs 2.5 mg 8-29 11-28 tablet by ity of tablet 00:00: 05:59 mouth in [place] 00 :00 the Medical morning Branch and 1 tablet in the evening. Do all this for 90 days. Indication s: atrial fibrillati on apixaban 2021-0 2021- No 1358 2.5mg Take 1 Unive rs 2.5 mg 8-29 11-28 tablet by ity of tablet 00:00: 05:59 mouth in [place] 00 :00 the Medical morning Branch and 1 tablet in the evening. Do all this for 90 days. Indication s: atrial fibrillati on vancomycin 2021-2- No [id number] 125mg Take 1 Univers 125 mg 8-29 08-29 capsule by ity of capsule 00:00: 00:00 mouth 4 [place] 00 :00 (four) Medical times Branch daily for 10 days. zolpidem Yes 5mg 5 mg, Univers (AMBIEN) 10-04 Oral, ity of tablet 5 mg 21:45: QHSPRN, 3 [place] 27 doses, Medical Starting Branch on [place] 10/04/21 at 1645, Until Discontinu ed, Routine, Insomnia brexpiprazo Yes 1mg 1 mg, Unive rs le 10-04 Oral, ity of (REXULTI) 14:00: DAILY, [place] Tab 1 mg 00 First dose Medic al on [place] Branch 10/04/21 at 0900, Until Discontinu ed, [...] mg 00 :00 First dose Medical on [place] Branch 10/04/21 at 0800, Last dose on Tue10/13/21 at 2000, Routine
Reason for Anti-Infec tive: Documented Infection< br>Documen shazia Infection Site: Abdominal< br>Duratio n of Therapy: 10 days atorvastati Yes 10mg 10 mg, Univ ers n (LIPITOR) 10-04 Oral, QHS, it y of tablet 10 02:00: [place] 00 on [facility] 10/03/21 at Branch 2100, Until Discontinu ed, Routine budesonide- Yes 2{puff} 2 Puff, [facility] formoteroL 10-04 Inhalation ity of (SYMBICORT) 01:00: , [place] 160-4.5 00 First dose Med[place] l mcg/actuati on [facility] Branch on inhaler 10/03/21 at 2 Puff [...] Routine, Pain (scale 1-3) iopamidol 2021- No [id number] 60mL 60 mL, U nivers (ISOVUE 10-02 [...] 18:10:00 170 mm[Hg] Univer sity of [facility] [place] [facility] Diastolic blood 2022-01-13 18:10:00 60 mm[Hg] Unive rsity of [facility] [place] [facility] Heart rate 2022-01-13 18:10:00 78 /min [facility] [place] [facility] Respiratory rate 2022-01-13 18:10:00 18 /min Univ [facility] [place] [facility] Oxygen saturation in 2022-01-13 18:10:00 94 /min University of Arterial blood by [place] [employer] car[facility]le Pulse oximetry Branch Body temperature 2022-01-13 17:40:00 36.17 Bel [facility] [place] [facility] Body weight 2022-01-08 18:00:00 52.164 kg [facility] [place] [facility] BMI 2022-01-08 18:00:00 22.46 kg/m2 [facility] [place] [facility] Systolic blood 2022-01-13 17:50:00 158 mm[Hg] Univer sity of [facility] [place] [facility] Diastolic blood 2022-01-13 17:50:00 62 mm[Hg] Unive rsity of [facility] [place] [facility] Heart rate 2022-01-13 17:50:00 77 /min [facility] [place] [facility] Respiratory rate 2022-01-13 17:50:00 13 /min [facility] [place] [facility] Oxygen saturation in 2022-01-13 17:50:00 95 /min University of Arterial blood by [employer] carlyle Pulse oximetry Branch Body temperature 2022-01-13 17:40:00 36.17 Bel [facility] [place] [facility] Body weight 2022-01-08 18:00:00 52.164 kg [facility] [place] [facility] BMI 2022-01-08 18:00:00 22.46 kg/m2 [facility] [place] [facility] Systolic blood 2021-10-16 02:55:00 137 mm[Hg] Univer sity of [facility] [place] [facility] Diastolic blood 2021-10-16 02:55:00 53 mm[Hg] Unive rsity of [facility] [place] [facility] Heart rate 2021-10-16 02:55:00 67 /min [facility] [place] [facility] Respiratory rate 2021-10-16 02:55:00 14 /min [facility] ersity [facility] Oxygen saturation in 2021-10-16 02:55:00 93 /min University of Arterial blood by [facility] Pulse oximetry Branch Body temperature 2021-10-16 00:49:[address] [facility] ersity [facility] [place] [facility] Body height 2021-10-16 00:49:00 152.4 cm [facility] [place] [facility] Body weight 2021-10-16 00:49:00 55.339 kg [facility] [place] [facility] BMI 2021-10-16 00:49:00 23.83 kg/m2 [facility] [place] [facility] Systolic blood 2021-10-05 20:21:00 159 mm[Hg] Univer sity of [facility] Medical May Diastolic blood 2021-10-05 20:21:00 64 mm[Hg] [facility] Medical May Heart rate 2021-10-05 20:21:00 69 /min [facility] [place] [facility] Body temperature 2021-10-05 20:21:[address] [facility] Respiratory rate 2021-10-05 20:21:00 18 /min [facility] Oxygen saturation in 2021-10-05 20:21:00 96 /min University of Arterial blood by [facility] Pulse oximetry Branch Body height 2021-10-03 03:00:00 152.4 cm [facility] [place] [facility] Body weight 2021-10-03 03:00:00 54.432 kg [facility] [place] [facility] BMI 2021-10-03 03:00:00 23.44 kg/m2 Universi ty [facility] Medical May Procedures Procedure Date / Time Performing Source Performed Clinician REFERRAL- REQUEST/RESPONSE 2022-06-30 Doctor Unassigned, [facility] 05:01:00 [place] [facility] ASSIGNMENT OF BENEFITS 2022-04-14 Doctor Unassigned, [facility] 17:43:44 [place] [facility] COLONOSCOPY (ENDO) 2022-01-13 Allyson Ortega [facility] 17:07:41 Medical Branch COLONOSCOPY (ENDO) 2022-01-13 Allyson Ortega [facility] [place] 17:07:41 Medical Branch COLONOSCOPY 2022-01-13 Dang Estrella [place] [facility] [place] 17:01:00 C Medical Branch PATIENT QUESTIONNAIRE 2022-01-13 Doctor Unassigned, [facility] 06:01:00 [place] [facility] EXTERNAL PROVIDER RECORDS 2021-12-28 Doctor Unassigned, Uni versity [facility] 06:01:00 [place] [facility] EXTERNAL PROVIDER RECORDS 2021-12-28 Doctor Unassigned, Uni versity [facility] 06:01:00 [place] [facility] EXTERNAL PROVIDER RECORDS 2021-12-25 Doctor [facility]assigned, [facility] 06:01:00 [place] [facility] EXTERNAL PROVIDER RECORDS 2021-12-25 Doctor Unassigned, [facility] 06:01:00 [place] [facility] DIRECTIVE TO PHYSICIAN 2021-10-26 Doctor Unassigned, [facility] 05:01:00 [place] [facility] XR CHEST 1 VW 2021[facility]10[facility] 01[facility]00 [facility] TROPONIN I 2021-10-16 [facility] 01:09:00 [facility] COMP. METABOLIC PANEL (97601) 2021-10-16 Micha Lynne [facility] 01:09:00 Medical Branch CBC WITH DIFF 2021-10-16 [facility] 01:09[facility]00 [facility] N-TERMINAL PRO-BNP 2021-10-16 [facility] 01:09[facility]00 [facility] COVID-19 (ID NOW RAPID 2021-10-16 [facility] 01:09:00 Medical Branch LACTIC ACID WHOLE BLOOD [facility] 01:[facility] CONSENT/REFUSAL FOR DIAGNOSIS 2021-10-16 Doctor Unassigned, [facility] AND TREATMENT 00:42:00 [place] [facility] HOME HEALTH - OTHER 2021-10-07 Doctor Unakrunaligned, [facility] 05:01:00 [place] [facility] AUTHORIZATION FOR RELEASE OF 2021-10-06 Doctor Unassigned, [facility] PHI 05:01:00 [place] [facility] MAGNESIUM 2021-10-05 Rosalva [facility] xa 09:12:00 Medical Branch BASIC METABOLIC PANEL (NA, K, 2021-10-05 Abdoulaye Blackwell [facility] CL, CO2, GLUCOSE, BUN, 09:12:00 Medical B ran CREATININE, CA) CBC WITHOUT DIFF 2021-10-05 Rosalva [facility] 09:12:00 Medical Branch ELECTROENCEPHALOGRAM 2021-10-[address] [facility] 00:00:00 Medical Branch MAGNESIUM 2021-10-04 [facility] xa 09:50:00 [facility] BASIC METABOLIC PANEL (NA, K, 2021-10-04 [facility] CL, CO2, GLUCOSE, BUN, 09:50:00 [facility] ran CREATININE, CA) CBC WITH DIFF 2021-10-04 [facility] 09:50:00 [facility] Branch HB ABO GROUPING 2021-10-04 [facility] xa 02:50:00 [facility] CBC WITH DIFF 2021-10-04 [facility] 02:49:00 Medical Branch COMP. METABOLIC PANEL ([id number]) 2021-10-03 [facility], [facility] 16:43:00 Medical Branch CBC WITH DIFF 2021-10-03 [facility] 16:43:00 Medical Branch CLOSTRIDIUM DIFFICILE TOXIN 2021-10-03 Flash [facility] 11:15:00 Medical Branch FECAL PATHOGENS BY PCR 2021-10-03 [facility] 11:14:00 Medical Branch OCCULT (GUAIAC) BLOOD 2021-10-03 Flash [facility] 11:13:00 Medical Branch PROTHROMBIN TIME / INR 2021-10-03 [facility] 03:52:00 Medical Branch ACTIVATED PARTIAL THRMPLAS 2021-10-03 [facility] ANA 03:52:00 Medical Branch BASIC METABOLIC PANEL (NA, K, 2021-10-03 Tyesha [facility]ales [facility] CL, CO2, GLUCOSE, BUN, 03:30:00 Medical B ranch CREATININE, CA) CBC WITH DIFF 2021-10-03 Tyesha Vidales [facility] xa 03:30:[address] ABDOMEN PELVIS W CONTRAST 2021-10-02 [facility] [place] 21:30:36 Medical Branch ABORH CONFIRMATION (LAB ONLY) 2021-10-02 Britt[facility] [place] 21:30:00 Medical Branch HB ECG ROUTINE & RHYTHM STRIP 2021-10-02 [facility] [place] 20:58:31 Medical Branch COVID-19 (ID NOW RAPID 2021-10-02 Brittanie Pal [facility] TESTING) 20:47:00 Medical Branch LAB ONLY COVID INTERPRETATION 2021-10-02 Brittanie Pal [facility] 20:47:00 Medical Branch COMP. METABOLIC PANEL (81499) 2021-10-02 Brittanie Pal [facility] 20:44:00 Medical Branch IRON PANEL 2021-10-[address] [facility] 20:44:00 [facility] Branch CBC WITH DIFF 2021-10-[address] [facility] 20:44:00 Medical Branch GLYCOSYLATED HEMOGLOBIN (A1C) 2021-10-02 Tyesha Vidales [facility] 20:44:00 Medical Branch PROTHROMBIN TIME / INR 2021-10-02 Brittanie Pal [facility] 20:44:00 Medical Branch ACTIVATED PARTIAL THRMPLAS 2021-10-02 Brittanie Pal [facility] ANA 20:44:00 Medical Branch HB ABO GROUPING 2021-10-02 Brittanie Pal [facility] xa 20:40:00 Medical Branch NOTICE OF PRIVACY PRACTICES 2021-10-02 Doctor Unassigned, [facility] 19:48:10 [place] [facility] HOSPITAL ADMISSION 2021-10-02 Doctor Unassigned, [facility] 05:01:00 [place] [facility] Encounters Start End Encounter Admission Attending Care Care Encounter Source Date/Time Date/Time Type Type Clinicians Facility Department ID 2022-08-17 2022-08-17 Outpatient [facility] Karlo 10:07:27 10:07:27 [id number] F [place] 2022-08-16 2022-08-16 Outpatient [facility] Karlo 09:37:42 09:37:42 [id number] F Bennie 2022-06-30 2022-06-30 Orders Doctor BLACKWELL 1.2.840.114 [id number] Univers 00:00:00 00:00:00 Only Unassigned, ALYSSIA 350.1.13.10 ity of [place] [facility] 4.2.7.2.686 Jeremías as [id number] [address] 2022-06-29 2022-06-29 Outpatient [facility] Karlo 10:14:51 10:14:51 [id number] F [place] 2022-05-06 2022-05-06 Outpatient [facility] Karlo 13:57:04 13:57:04 [id number] F [place] 2022-04-14 2022-04-14 Doctor Of Radiology Therapist, [facility] Respiratory [facility] 1.2.840.114 [id number] Univers 11:30:00 12:40:42 Visit Una Beltran 350.1.13.10 ity of [facility] 4.2.7.2.686 [place] [facility] [id number] [place] [id number] May 2022-04-14 2022-04-14 Outpatient [facility] [id number] Univers 11:30:00 11:30:00 UNA landaverde o f [facility] 2022-04-14 2022-04-14 Orders Doctor BLACKWELL 1.2.840.114 [id number] Univers 00:00:00 00:00:00 Only Unassigned, ALYSSIA 350.1.13.10 ity of [place] [facility] 4.2.7.2.686 Jeremías as [id number] [address] 2022-03-22 2022-03-22 Outpatient [facility] Karlo 16:55:48 16:55:48 [id number] [facility] 2022-03-08 2022-03-08 Outpatient [facility] Karlo 14:40:04 14:40:04 [id number] F [place] 2022-03-04 2022-03-04 Outpatient [facility] [id number] Karlo 11:01:10 11:01:10 [id number] F Bennie 2022-02-18 2022-02-18 Outpatient [facility] [id number] Kar[place] 09:00:08 09:00:08 [id number] F [place] 2022-02-04 2022-02-04 Outpatient [facility] Karlo 10:49:39 10:49:39 [id number] F [place] 2022-01-13 2022-01-13 Outpatient R [facility] BO 157 [id number] Univers 09:58:00 12:30:00 DANG Faria o f [facility] 2022-01-13 2022-01-13 [facility] 1.2.840.114 [id number] Univers 09:58:00 12:30:00 Encounter Dang faria 350.1.13.10 [place] [id number] [facility] 071 Branch 2022-01-13 2022-01-13 Surgery [facility] 1.2.840.114 [id number] Univers 11:07:00 11:51:00 Dang faria 350.1.13.10 [place] [id number] [facility] 020 Branch 2022-01-13 2022-01-13 Orders Doctor BLACKWELL 1.2.840.114 [id number] Univers 00:00:00 00:00:00 Only Unassigned, ALYSSIA 350.1.13.10 ity of [place] [facility] 4.2.7.2.686 Jeremías as [id number] [facility] 009 Branch 2021-10-26 2021-10-26 Orders Doctor ROSALVA 1.2.840.114 [id number] Univers 00:00:00 00:00:00 Only Unassigned, ALYSSIA 350.1.13.10 ity of [place] [facility] 4.2.7.2.686 Jeremías as [id number] [facility] 009 Branch 2021-10-15 2021-10-15 Emergency X MICHA LYNNE [facility] ERT 1 [id number] Univers 19:43:00 21:57:00 MICHA LYNNE itjavier of [facility] 2021-10-15 2021-10-15 Emergency Maged [facility] 1.2.964.039 [id number] Univers 19:43:00 21:57:00 Micha AMARO 350.1.13.10 i ty of [place].2.[place] [id number] [facility] 084 Branch 2021-10-07 2021-10-07 Orders Doctor ROSALVA 1.2.840.114 [id number] Univers 00:00:00 00:00:00 Only Unassigned, ALYSSIA 350.1.13.10 ity of [place] [facility] 4.2.7.2.686 Jeremías as [id number] [facility] 009 Branch 2021-10-06 2021-10-06 Transition ADDISON Baum 1.2.840.114 [id number] Univers 00:00:00 00:00:00 of Care Katya GRACIAY 350.1.13.10 it y [place] [id number] [facility] 403 Branch 2021-10-06 2021-10-06 Orders Doctor ROSALVA 1.2.840.114 [id number] Univers 00:00:00 00:00:00 Only Unassigned, ALYSSIA 350.1.13.10 ity [facility] [place] [facility] 4.2.7.2.686 Jeremías as [id number] [facility] 009 Branch 2021-10-02 2021-10-05 Hospital Brittanie Pal 1.2.840.1 [id number] Univers 15:20:00 17:15:00 Encounter Padma Abraham 350.1.13.10 ity of HOSPITAL 4.2.7.2.686 Jeremías as [id number] [facility] 100 Branch 2021-10-02 2021-10-05 Outpatient X MUFTI WIBERRY [facility] [id number] Univers 15:20:00 17:15:[address] [facility] 2021-10-05 2021-10-05 Telephone JIGNESH Abraham [id number] [id number] Univers 00:00:00 00:00:00 Padma MULTISPEC 350.1.13.10 itKaleb 4.2.7.2.686 [facility] [id number] [facility] AND RAVI 067 Branch DIABETES CLINIC 2021-09-02 2021-09-02 Outpatient TIBURCIO_SANDRA LACODY [facility] [address]53 [place] 00:00:00 00:00:00 _MARÍA 0727 da [facility] Outre h Program Results Test Description Test Time Test Comments Results Result Comments Source TROPONIN I 2021-10-16 01:50:28 Test Item Value Reference Range Interpretation Comme nts TROPONIN I (test code = 0.006 ng/mL See_Comment [Au tomated message] The 5742299149) system which ge nerated this result tra [...] biotin. Lab Interpretation Normal (test code = 06846-4) [id number] 01:47:31 Test Item Value Reference Range Interpretation Comments NT-proBNP (test code 488 pg/mL See_Comment H [Autom ated = 8534330009) message] The system which generated this result transmitted reference range : <=450. The reference range was not used to interpret this result as normal/abnormal . SUZE (test code = SUZE) Biotin has been reported to cause a negative bias, interpret results relative to patient's use of biotin. Lab Interpretation Abnormal (test code = 72626-9) [facility]. METABOLIC PANEL (79769)2021-10-16 01:34:28 Test Item Value Reference Range Interpretation Comments NA (test code = 135 mmol/L 135-145 4718819948) K (test code = 3.6 mmol/L 3.5-5 0716562356) CL (test code = 102 mmol/L 98-108 5297237921) CO2 TOTAL (test code = 25 mmol/L 23-31 7845853859) AGAP (test code = 2-16 8883282327) BUN (test code = 15 mg/dL 7-23 8707179567) GLUCOSE (test code = 92 mg/dL 70-110 1693392220) CREATININE (test code = 0.91 mg/dL 0.5-1.04 0580791460) TOTAL BILI (test code = 1.2 mg/dL 0.1-1.1 H 0723935868) CALCIUM (test code = 9.2 mg/dL 8.6-10.6 0183413644) T PROTEIN (test code = 6.6 g/dL 6.3-8.2 7223208568) ALBUMIN (test code = 4.4 g/dL 3.5-5 2413295888) ALK PHOS (test code = 95 U/L 34-122 7523267012) ALTv (test code = 22 U/L 5-35 1742-6) AST(SGOT) (test code = 34 U/L 13-40 4771803554) eGFR (test code = mL/min/1.73m2 7143013753) SUZE (test code = SUZE) Association of [...] tests). Lab Interpretation Abnormal (test code = 87330-1) [facility] WITH [id number] 01:21:05 Test Item Value Reference Range Interpretation Comments WBC (test code = See_Comment [Automated 4493-2) message] The sy stem which generated this result transmitted reference range : 4.30 - 11.10 10*3/?L. The reference range was not used to interpret this result as normal/abnormal . RBC (test code = See_Comment [Automated 914-8) message] The sy stem which generated this [...] RDW-SD (test code = 40.9 fL 39-49.9 96458-5) RDW-CV (test code = 12.2 % 12-15.5 788-0) PLT (test code = See_Comment [Automated 307-3) message] The sy stem which generated this result transmitted reference range : 166 - 358 10*3/ ?L. The reference r manav was not used to interpret this result as normal/abnormal . MPV (test code = 9.9 fL 9.5-12.9 30971-2) NRBC/100 WBC (test See_Comment [Automat ed code = 2824058389) message] The system which generated this result transmitted reference range : 0.0 - 10.0 /100 WBCs. The refer ence range was not u sed to interpret th is result as normal/abnormal . NRBC x10^3 (test code See_Comment [Auto mated = 8156304865) message] The s ystem which generated this result transmitted reference range : 10*3/?L. The reference range was not used to interpret this result as normal/abnormal . GRAN MAT (NEUT) % 76.4 % (test code = 770-8) IMM GRAN % (test code 0.20 % = 6384838017) LYMPH % (test code = 8.3 % 736-9) MONO % (test code = 9.5 % 5905-5) EOS % (test code = 4.4 % 713-8) BASO % (test code = 1.2 % 706-2) GRAN MAT x10^3(ANC) 4.50 10*3/uL 1.88-7.09 (test code = 1473677511) IMM GRAN x10^3 (test 0-0.06 code = 1917887749) LYMPH x10^3 (test code 0.49 10*3/uL 1.32-3.29 L = 731-0) MONO x10^3 (test code 0.56 10*3/uL 0.33-0.92 = 742-7) EOS x10^3 (test code = 0.26 10*3/uL 0.03-0.39 711-2) BASO x10^3 (test code 0.07 10*3/uL 0.01-0.07 = 704-7) Lab Interpretation Abnormal (test code = 47499-7) [facility] METABOLIC PANEL (NA, K, CL, CO2, GLUCOSE, BUN, CREATININE, CA)2021-10-05 10:08:40 Test Item Value Reference Range Interpretation Comments NA (test code = 135 mmol/L 135-145 2330966599) K (test code = 3.9 mmol/L 3.5-5 0788718712) CL (test code = 106 mmol/L 98-108 9112475477) CO2 TOTAL (test code = 27 mmol/L 23-31 9743091534) AGAP (test code = 2-16 3166829470) BUN (test code = 17 mg/dL 7-23 6884870355) GLUCOSE (test code = 100 mg/dL 70-110 0813853458) CREATININE (test code = 1.21 mg/dL 0.5-1.04 H 4303971810) CALCIUM (test code = 8.7 mg/dL 8.6-10.6 7269588766) eGFR (test code = mL/min/1.73m2 6548836143) SUZE (test code = SUZE) Association of [...] tests). Lab Interpretation Abnormal (test code = 89931-5) [facility] 10:08:40 Test Item Value Reference Range Interpretation Comments MAGNESIUM (test code = 1864818579) 1.8 mg/dL 1.7-2.4 Lab Interpretation (test code = Normal 92324-8) [facility] [id number] 09:30:59 Test Item Value Reference Range Interpretation Comments WBC (test code = 6690-2) See_Comment [A utomated message] The system [employer] generated this result transmit shazia reference range : 4.30 - 11.10 10*3/?L. The reference range was not used to interpret this result as normal/abnormal . RBC (test code = 789-8) See_Comment L [Au tomated message] The system [employer] generated this result transmit shazia reference range [...] 777-3) See_Comment [Au tomated message] The system [employer] generated this result transmit shazia reference range : 166 - 358 10*3/?L. The reference range was not used to interpret this result as normal/abnormal . MPV (test code = 10.0 fL 9.5-12.9 09080-2) RDW-CV (test code = 12.1 % 12-15.5 788-0) RDW-SD (test code = 41.6 fL 39-49.9 38120-6) NRBC x10^3 (test code = See_Comment [Au tomated message] 5449968281) The system [employer] generated this result transmit shazia reference range : 10*3/?L. The reference range was not used to interpret this result as normal/abnormal . NRBC/100 WBC (test code See_Comment [Au tomated message] = 0296993667) The system [employer] ch generated this result transmit shazia reference range : 0.0 - 10.0 /100 WBC s. The reference r manav was not used to interpret this result as normal/abnormal . IPF % (test code = 5194851792) Lab Interpretation (test Abnormal code = 00217-7) [facility] WITH [id number] 10:56:20 Test Item Value Reference Range Interpretation [...] RDW-SD (test code = 41.0 fL 39-49.9 50920-2) RDW-CV (test code = 12.1 % 12-15.5 788-0) PLT (test code = See_Comment [Automated 777-3) message] The sy stem which generated this result transmitted reference range : 166 - 358 10*3/ ?L. The reference r manav was not used to interpret this result as normal/abnormal . MPV (test code = 9.5 fL 9.5-12.9 85390-8) NRBC/100 WBC (test See_Comment [Automat ed code = 7591869593) message] The system which generated this result transmitted reference range : 0.0 - 10.0 /100 WBCs. The refer ence range was not u sed to interpret th is result as normal/abnormal . NRBC x10^3 (test code See_Comment [Auto mated = 2875964271) message] The s ystem which generated this result transmitted reference range : 10*3/?L. The reference range was not used to interpret this result as normal/abnormal . GRAN MAT (NEUT) % 50.7 % (test code = 770-8) IMM GRAN % (test code 0.30 % = 8339492239) LYMPH % (test code = 27.0 % 736-9) MONO % (test code = 10.1 % 5905-5) EOS % (test code = 10.7 % 713-8) BASO % (test code = 1.2 % 706-2) GRAN MAT x10^3(ANC) 1.65 10*3/uL 1.88-7.09 L (test code = 9620973308) IMM GRAN x10^3 (test 0-0.06 code = 3382658031) LYMPH x10^3 (test code 0.88 10*3/uL 1.32-3.29 L = 731-0) MONO x10^3 (test code 0.33 10*3/uL 0.33-0.92 = 742-7) EOS x10^3 (test code = 0.35 10*3/uL 0.03-0.39 711-2) BASO x10^3 (test code 0.04 10*3/uL 0.01-0.07 = 704-7) Lab Interpretation Abnormal (test code = 67552-9) [facility] METABOLIC PANEL (NA, K, CL, CO2, GLUCOSE, BUN, CREATININE, CA)2021-10-04 10:47:23 Test Item Value Reference Range Interpretation Comments NA (test code = 133 mmol/L 135-145 L 9974529389) K (test code = 3.8 mmol/L 3.5-5 5099998406) CL (test code = 105 mmol/L 98-108 1706635276) CO2 TOTAL (test code = 29 mmol/L 23-31 9553823657) AGAP (test code = 2-16 L 4376422212) BUN (test code = 10 mg/dL 7-23 0178569186) GLUCOSE (test code = 89 mg/dL 70-110 2694428309) CREATININE (test code = 1.03 mg/dL 0.5-1.04 3660809377) CALCIUM (test code = 8.6 mg/dL 8.6-10.6 9626894476) eGFR (test code = mL/min/1.73m2 9469807261) SUZE (test code = SUZE) Association of [...] tests). Lab Interpretation Abnormal (test code = 40590-3) [facility] 10:27:12 Test Item Value Reference Range Interpretation Comments MAGNESIUM (test code = 6851994398) 1.8 mg/dL 1.7-2.4 Lab Interpretation (test code = Normal 08037-7) [facility] WITH [id number] 03:39:50 Test Item Value Reference Range Interpretation [...] RDW-SD (test code = 40.8 fL 39-49.9 71108-4) RDW-CV (test code = 11.9 % 12-15.5 L 788-0) PLT (test code = See_Comment L [Automated 777-3) message] The sy stem which generated this result transmitted reference range : 166 - 358 10*3/ ?L. The reference r manav was not used to interpret this result as normal/abnormal . MPV (test code = 9.8 fL 9.5-12.9 07104-1) NRBC/100 WBC (test See_Comment [Automat ed code = 8685527065) message] The system which generated this result transmitted reference range : 0.0 - 10.0 /100 WBCs. The refer ence range was not u sed to interpret th is result as normal/abnormal . NRBC x10^3 (test code See_Comment [Auto mated = 9950778659) message] The s ystem which generated this result transmitted reference range : 10*3/?L. The reference range was not used to interpret this result as normal/abnormal . GRAN MAT (NEUT) % 51.4 % (test code = 770-8) IMM GRAN % (test code 0.30 % = 9788811350) LYMPH % (test code = 26.5 % 736-9) MONO % (test code = 10.8 % 5905-5) EOS % (test code = 10.0 % 713-8) BASO % (test code = 1.0 % 706-2) GRAN MAT x10^3(ANC) 1.96 10*3/uL 1.88-7.09 (test code = 6571551948) IMM GRAN x10^3 (test 0-0.06 code = 5779273891) LYMPH x10^3 (test code 1.01 10*3/uL 1.32-3.29 L = 731-0) MONO x10^3 (test code 0.41 10*3/uL 0.33-0.92 = 742-7) EOS x10^3 (test code = 0.38 10*3/uL 0.03-0.39 711-2) BASO x10^3 (test code 0.04 10*3/uL 0.01-0.07 = 704-7) Lab Interpretation Abnormal (test code = 05825-1) [facility] [id number] 03:38:54 Test Item Value Reference Range Interpretation Comments ABO & RH (test code O POSITIVE Performe d at [facility] = 20) Laboratory Serv [facility] Blood [facility]3 [address] [facility] s [id number] Free: [phone] A No. [id number] IAT (test code = Negative Performed a t [facility] 1185) Laboratory Serv [facility] [address] [facility] s [address]Iphk Free: [phone] A No. [id number] [facility] [id number] 15:51:56 Test Item Value Reference Range Interpretation Comments IRON (test code = 6647744141) 78 ug/dL 50-160 TIBC (test code = 3459364546) 296 ug/dL 250-410 % FE SAT (test code = 8388047174) 26 % 20-50 Lab Interpretation (test code = Normal 21560-3) [facility] (NA, K, CL, CO2, GLUCOSE, BUN, CREATININE, CA)2021-10-03 04:19:41 Test Item Value Reference Range Interpretation Comments NA (test code = 136 mmol/L 135-145 2737599719) K (test code = 3.5 mmol/L 3.5-5 3569383057) CL (test code = 103 mmol/L 98-108 0663145708) CO2 TOTAL (test code = 29 mmol/L 23-31 7182703168) AGAP (test code = 2-16 5267696836) BUN (test code = 14 mg/dL 7-23 4048886573) GLUCOSE (test code = 118 mg/dL 70-110 H 8086967633) CREATININE (test code = 0.90 mg/dL 0.5-1.04 1367286768) CALCIUM (test code = 9.4 mg/dL 8.6-10.6 8421273901) eGFR (test code = mL/min/1.73m2 4138075979) SUZE (test code = SUZE) Association of [...] tests). Lab Interpretation Abnormal (test code = 59100-7) [facility] WITH [id number] 03:59:15 Test Item Value Reference Range Interpretation [...] RDW-SD (test code = 42.7 fL 39-49.9 38964-7) RDW-CV (test code = 12.3 % 12-15.5 788-0) PLT (test code = See_Comment [Automated 777-3) message] The sy stem which generated this result transmitted reference range : 166 - 358 10*3/ ?L. The reference r manav was not used to interpret this result as normal/abnormal . MPV (test code = 9.7 fL 9.5-12.9 62009-5) NRBC/100 WBC (test See_Comment [Automat ed code = 7423619245) message] The system which generated this result transmitted reference range : 0.0 - 10.0 /100 WBCs. The refer ence range was not u sed to interpret th is result as normal/abnormal . NRBC x10^3 (test code See_Comment [Auto mated = 7963350702) message] The s ystem which generated this result transmitted reference range : 10*3/?L. The reference range was not used to interpret this result as normal/abnormal . GRAN MAT (NEUT) % 66.4 % (test code = 770-8) IMM GRAN % (test code 0.10 % = 3295950011) LYMPH % (test code = 19.6 % 736-9) MONO % (test code = 7.0 % 5905-5) EOS % (test code = 5.7 % 713-8) BASO % (test code = 1.2 % 706-2) GRAN MAT x10^3(ANC) 4.55 10*3/uL 1.88-7.09 (test code = 7314804147) IMM GRAN x10^3 (test 0-0.06 code = 5410640976) LYMPH x10^3 (test code 1.34 10*3/uL 1.32-3.29 = 731-0) MONO x10^3 (test code 0.48 10*3/uL 0.33-0.92 = 742-7) EOS x10^3 (test code = 0.39 10*3/uL 0.03-0.39 711-2) BASO x10^3 (test code 0.08 10*3/uL 0.01-0.07 H = 704-7) Lab Interpretation Abnormal (test code = 24967-8) [facility] (A1C)2021-10-03 03:46:09 Test Item Value Reference Range Interpretation Comments HGB A1C (test code = 5.0 % 4-5.7 4548-4) SUZE (test code = SUZE) Reference RangesNormal: <5.7%Prediabetes: 5.7 - 6.4%Diabetes: > 6.5% Lab Interpretation (test Normal code = 15266-7) [facility]AB[facility] Confirmation (Lab Only)2021-10-02 21:53:37 Test Item Value Reference Range Interpretation Comments ABO & RH (test code O Positive Performe d at [facility] = 20) Laboratory Serv [facility] Blood [facility]1 [address] [place] [address]Flxd Free: [phone] A No. [id number] [facility] [id number] 21:34:44 Test Item Value Reference Range Interpretation Comments ABO & RH (test code O Positive Performe d at [facility] = 20) Laboratory Serv [facility]1 [address] [place] [address]Pcom Free: [phone] A No. [id number] IAT (test code = Negative Performed a t [facility] 1185) Laboratory Serv [facility] [address] [place] [address]Kwzw Free: [phone] A No. [id number] [facility]COMP. METABOLIC PANEL (23587)2021-10-02 21:13:27 Test Item Value Reference Range Interpretation Comments NA (test code = 139 mmol/L 135-145 4321330151) K (test code = 4.2 mmol/L 3.5-5 9633462741) CL (test code = 102 mmol/L 98-108 6354162599) CO2 TOTAL (test code = 29 mmol/L 23-31 3060716257) AGAP (test code = 2-16 5282302182) BUN (test code = 17 mg/dL 7-23 1899811212) GLUCOSE (test code = 89 mg/dL 70-110 3265653838) CREATININE (test code = 0.85 mg/dL 0.5-1.04 7676441822) TOTAL BILI (test code = 1.5 mg/dL 0.1-1.1 H 2070237977) CALCIUM (test code = 9.5 mg/dL 8.6-10.6 5923378251) T PROTEIN (test code = 6.9 g/dL 6.3-8.2 2468019386) ALBUMIN (test code = 4.5 g/dL 3.5-5 9226173708) ALK PHOS (test code = 83 U/L 34-122 7559159410) ALTv (test code = 24 U/L 5-35 1742-6) AST(SGOT) (test code = 35 U/L 13-40 8899403450) eGFR (test code = mL/min/1.73m2 6549989655) SUZE (test code = SUZE) Association of [...] tests). Lab Interpretation Abnormal (test code = 59192-3) [facility]ACT[facility] THRMPLAS [id number] 21:10:23 Test Item Value Reference Range Interpretation Comments APTT Patient (test See_Comment [Automat ed code = 3173-2) message] The system which generated this result transmitted reference range : 23 - 38 Seconds . The reference range was not used to interpr et this result as normal/abnormal . SUZE (test code = SUZE) The [facility] patient population mean normal value for aPTT is 30 seconds. Lab Interpretation Normal (test code = 69668-9) [facility] HospitalProthrombin Time / [id number] 21:08:06 Test Item Value Reference Range Interpretation [...] tions. Lab Interpretation (test Abnormal code = 90861-2) [facility] WITH [id number] 21:02:42 Test Item Value Reference Range Interpretation Comments WBC (test code = See_Comment [Automated 4690-2) message] The sy stem which generated this [...] RDW-SD (test code = 42.0 fL 39-49.9 66786-9) RDW-CV (test code = 12.2 % 12-15.5 788-0) PLT (test code = See_Comment [Automated 777-3) message] The sy stem which generated this result transmitted reference range : 166 - 358 10*3/ ?L. The reference r manav was not used to interpret this result as normal/abnormal . MPV (test code = 9.6 fL 9.5-12.9 74196-3) NRBC/100 WBC (test See_Comment [Automat ed code = 0534668896) message] The system which generated this result transmitted reference range : 0.0 - 10.0 /100 WBCs. The refer ence range was not u sed to interpret th is result as normal/abnormal . NRBC x10^3 (test code See_Comment [Auto mated = 1582154379) message] The s ystem which generated this result transmitted reference range : 10*3/?L. The reference range was not used to interpret this result as normal/abnormal . GRAN MAT (NEUT) % 66.2 % (test code = 770-8) IMM GRAN % (test code 0.20 % = 9640735584) LYMPH % (test code = 19.5 % 736-9) MONO % (test code = 7.0 % 5905-5) EOS % (test code = 5.7 % 713-8) BASO % (test code = 1.4 % 706-2) GRAN MAT x10^3(ANC) 5.56 10*3/uL 1.88-7.09 (test code = 9483991986) IMM GRAN x10^3 (test 0-0.06 code = 1786039482) LYMPH x10^3 (test code 1.64 10*3/uL 1.32-3.29 = 731-0) MONO x10^3 (test code 0.59 10*3/uL 0.33-0.92 = 742-7) EOS x10^3 (test code = 0.48 10*3/uL 0.03-0.39 H 711-2) BASO x10^3 (test code 0.12 10*3/uL 0.01-0.07 H = 704-7) Lab Interpretation Abnormal (test code = 09549-3) [facility]
[2022-08-21] MEDS ORDERED: NA CHLORIDE 0.9% 1,000 ML ONE (09:49)
[2022-08-21] MEDS ORDERED: CIPROFLOXACIN 400mg IV 400 MG/200 ML BAG IV ONE (09:49)
[2022-08-21] MEDS ORDERED: ONDANSETRON 4 MG/2 ML VIAL ONE (09:49)
[2022-08-21] MEDS ORDERED: METRONIDAZOLE 500mg IVPB 500 MG/100 ML BAG IV ONE (09:49)
[2022-08-21] MEDS ORDERED: MORPHINE 2 MG/ML SYR ONE (09:53)
[2022-08-21 10:21] LABS: Absolute Lymphocytes (CBC) 0.8 K/uL (0.7-4.9); Hematocrit 32.1 % (36.0-45.0); Lymphocytes % 11.7 % (15.3-44.8); MCV 89.7 fL (80-100); MPV 8.1 fL (7.6-11.3); RBC Red Blood Cell Count 3.58 M/uL (3.86-4.86)
[2022-08-21 10:28] LABS: Protime INR 1.56
--- NOTE | 2022-08-21 10:29 | RAD REPORT ---
EXAM DESCRIPTION: RAD - Chest Single View - 08/21/2022 10:19 am CLINICAL HISTORY: ABDOMINAL DISTENTION Chest pain. COMPARISON: Chest Single View dated 07/28/2022; Chest Single View dated 10/19/2021; Chest Single View dated 08/25/2021; Chest Single View dated 08/19/2021 FINDINGS: Portable technique limits examination quality. The lungs are emphysematous but grossly clear. Trace pleural fluid. The heart is normal in size. No d isplaced fractures. IMPRESSION: Emphysematous changes are present.
[2022-08-21 10:42] LABS: Albumin 2.8 g/dL (3.4-5.0); Bilirubin Direct 0.3 mg/dL (0-0.2); Bilirubin Indirect, Calculated 1.2 mg/dL (0.2-0.8); Bilirubin Total 1.5 mg/dL (0.2-1.0); Magnesium 1.8 mg/dL (1.6-2.4); Potassium 3.8 mEq/L (3.5-5.1); Protein, Total 6.4 g/dL (6.4-8.2); Troponin High Sensitivity 7.4 pg/mL (<58.9)
--- NOTE | 2022-08-21 11:03 | EDPHYS ---
Physician Documentation [facility] Name: Madiha Breaux Age: 87 yrs Sex: Female : 1935 Arrival Date: 08/21/2022 Time: 09:19 Bed 13 Private MD: JANI Physician Hao Joyce HPI: 08/21 10:50 This 87 yrs old Female presents to ER via EMS with complaints of DIARRHEA, LOW salvador BP , WEAKNESS. 10:50 The patient presents with abdominal pain in the upper abdomen, in the lower abdomen. salvador Onset: The symptoms/episode began/occurred 5 day(s) ago. The patient presents to the emergency department with nausea, diarrhea, abdominal pain, of the right upper quadrant, left upper quadrant, right lower quadrant and left lower quadrant. Onset: The symptoms/episode began/occurred 5 day(s) ago. Possible causes: unknown. The symptoms are aggravated by nothing. The symptoms are alleviated by remaining still, prescription meds. Associated signs and symptoms: Pertinent positives: abdominal pain, diarrhea, nausea. The symptoms do not radiate. Associated signs and symptoms: none. Modifying factors: The symptoms are alleviated by nothing, the symptoms are aggravated by nothing. Severity of pain: At its worst the pain was mild moderate in the emergency department the pain is unchanged. Severity of symptoms: At their worst the symptoms were moderate in the emergency department the symptoms are unchanged. Historical: - Allergies: 09:44 Codeine; ko1 09:44 Demerol; ko1 09:44 Fentanyl; ko1 09:44 lamital; ko1 09:44 Rosebud; ko1 09:44 PENICILLINS; ko1 09:44 PORK/PORCINE PRODUCT DERIVATIVES; ko1 09:44 Sulfa (Sulfonamide Antibiotics); ko1 - Immunization history:: Adult Immunizations unknown. - Social history:: Smoking status: Patient/guardian denies using tobacco, but has a distant history of tobacco abuse. - Family history:: not pertinent. ROS: 10:50 Constitutional: Negative for fever, chills, and weight loss, Eyes: Negative for injury, salvador pain, redness, and discharge, ENT: Negative for injury, pain, and discharge, Neck: Negative for injury, pain, and swelling, Cardiovascular: Negative for chest pain, palpitations, and edema, Respiratory: Negative for shortness of breath, cough, wheezing, and pleuritic chest pain, Back: Negative for injury and pain, : Negative for injury, bleeding, discharge, and swelling, MS/Extremity: Negative for injury and deformity, Skin: Negative for injury, rash, and discoloration, Neuro: Negative for headache, weakness, numbness, tingling, and seizure, Psych: Negative for depression, anxiety, suicide ideation, homicidal ideation, and hallucinations, Allergy/Immunology: Negative for hives, rash, and allergies, Endocrine: Negative for neck swelling, polydipsia, polyuria, polyphagia, and marked weight changes, Hematologic/Lymphatic: Negative for swollen nodes, abnormal bleeding, and unusual bruising. 10:50 Abdomen/GI: Positive for abdominal pain, diarrhea. Exam: 10:50 Constitutional: This is a well developed, well nourished patient who is awake, alert, salvador and in no acute distress. Head/Face: Normocephalic, atraumatic. Eyes: Pupils equal round and reactive to light, extra-ocular motions intact. Lids and lashes normal. Conjunctiva and sclera are non-icteric and not injected. Cornea within normal limits. Periorbital areas with no swelling, redness, or edema. ENT: Nares patent. No nasal discharge, no septal abnormalities noted. Tympanic membranes are normal and external auditory canals are clear. Oropharynx with no redness, swelling, or masses, exudates, or evidence of obstruction, uvula midline. Mucous membranes moist. Neck: Trachea midline, no thyromegaly or masses palpated, and no cervical lymphadenopathy. Supple, full range of motion without nuchal rigidity, or vertebral point tenderness. No Meningismus. Chest/axilla: Normal chest wall appearance and motion. Nontender with no deformity. No lesions are appreciated. Cardiovascular: Regular rate and rhythm with a normal S1 and S2. No gallops, murmurs, or rubs. Normal PMI, no JVD. No pulse deficits. Respiratory: Lungs have equal breath sounds bilaterally, clear to auscultation and percussion. No rales, rhonchi or wheezes noted. No increased work of breathing, no retractions or nasal flaring. Back: No spinal tenderness. No costovertebral tenderness. Full range of motion. Female : Normal external genitalia. Skin: Warm, dry with normal turgor. Normal color with no rashes, no lesions, and no evidence of cellulitis. MS/ Extremity: Pulses equal, no cyanosis. Neurovascular intact. Full, normal range of motion. Neuro: Awake and alert, GCS 15, oriented to person, place, time, and situation. Cranial nerves II-XII grossly intact. Motor strength 5/5 in all extremities. Sensory grossly intact. Cerebellar exam normal. Normal gait. Psych: Awake, alert, with orientation to person, place and time. Behavior, mood, and affect are within normal limits. 10:50 Abdomen/GI: Inspection: bruising, Bowel sounds: normal, Palpation: mild abdominal tenderness, in all quadrants, Liver: no appreciated palpable abnormalities, Hernia: not appreciated. 11:29 ECG was reviewed by the Attending Physician. salvador Vital Signs: 09:30 BP 131 / 51; Pulse 66; Resp 16; Temp 98; Pulse Ox 93% ; ko1 10:00 BP 128 / 49; Pulse 64; Resp 18; Pulse Ox 94% ; ko1 10:30 BP 122 / 49; Pulse 60; Resp 16; Pulse Ox 91% ; ko1 11:00 BP 158 / 62; Pulse 66; Resp 16; Pulse Ox 100% on 2 lpm NC; ko1 MDM: 09:26 Patient medically screened. salvador 10:59 Differential diagnosis: Nonspecific abd pain, gastritis, viral gastroenteritis, salvador gastroenteritis, bowel obstruction, diverticulitis, gastritis, Mesenteric ischemia or infarction, non-specific abd pain, Peptic Ulcer Disease, urinary tract infection. Data reviewed: vital signs, nurses notes, EMS record, lab test result(s), EKG, radiologic studies, CT scan, plain films. Consideration of Admission/Observation Patient was admitted/placed on observation. Escalation of care including admission/observation considered. I considered the following discharge prescriptions or medication management in the emergency department Medications were administered in the Emergency Department. See MAR. Test considered but Not performed: Ultrasound NO ABD USG. Historians other than the Patient: Daughter/Son: DAUGHTER. Care significantly affected by the following chronic conditions: Diabetes, Hypertension, Liver Disease. Counseling: I had a detailed discussion with the patient and/or guardian regarding: the historical points, exam findings, and any diagnostic results supporting the discharge/admit diagnosis, lab results, radiology results, the need for further work-up and treatment in the hospital. 08/21 09:28 Order name: Basic Metabolic Panel; Complete Time: 10:43 salvador 08/21 09:28 Order name: CBC with Diff; Complete Time: 10:43 08/21 09:28 Order name: LFT's; Complete Time: 10:43 08/21 09:28 Order name: Magnesium; Complete Time: 10:43 08/21 09:28 Order name: NT PRO-BNP; Complete Time: 10:43 08/21 09:28 Order name: PT-INR; Complete Time: 10:49 08/21 09:28 Order name: Troponin HS; Complete Time: 10:43 08/21 09:28 Order name: Lipase; Complete Time: 10:43 08/21 09:28 Order name: Urinalysis w/ reflexes; Complete Time: 12:49 salvador 08/21 09:28 Order name: Lactate w/ 2H reflex if indic.; Complete Time: 10:43 08/21 09:28 Order name: Fecal Leukocyte Stain [facility] 08/21 09:28 Order name: Stool Culture [facility] 08/21 11:27 Order name: CBC with Automated Diff [facility]AL 08/21 11:27 Order name: CBC with Automated Diff [facility]AL 08/21 11:27 Order name: Comprehensive Metabolic Panel [facility] 08/21 11:27 Order name: Comprehensive Metabolic Panel [facility] 08/21 11:28 Order name: C.difficile GD Ag ; Complete Time: 12:49 EDAL 08/21 09:28 Order name: XRAY Chest (1 view); Complete Time: 10:43 salvador 08/21 09:28 Order name: CT Abd/Pelvis - IV Contrast Only; Complete Time: 12:49 salvador 08/21 09:28 Order name: EKG; Complete Time: 09:29 [facility] 08/21 11:27 Order name: CONS Physician Consult [facility] 08/21 11:27 Order name: Clear Liquid [facility]AL 08/21 09:28 Order name: Cardiac monitoring; Complete Time: 09:31 08/21 09:28 Order name: EKG - Nurse/Tech; Complete Time: 10:15 08/21 09:28 Order name: IV Saline Lock; Complete Time: 10:15 08/21 09:28 Order name: Labs collected and sent; Complete Time: 10:15 08/21 09:28 Order name: O2 Per Protocol; Complete Time: 09:31 08/21 09:28 Order name: O2 Sat Monitoring; Complete Time: :31 salvador EC:29 Rate is 70 beats/min. Rhythm is regular. QRS Ponce is Normal. TN interval is prolonged salvador at 376 msec. QRS interval is normal. QT interval is normal. No Q waves. T waves are Normal. Clinical impression: NSR w/ Non-specific ST/T Changes and 1st degree heart block. Interpreted by me. Reviewed by me. Administered Medications: 10:15 Drug: NS 0.9% IV 1000 ml Route: IV; Rate: 1 bolus; Site: left forearm; ko1 11:17 Follow up: Response: No adverse reaction; IV Status: Completed infusion; IV Intake: ko1 1000ml 10:15 Drug: Ondansetron IVP 4 mg Route: IVP; Site: left forearm; ko1 11:17 Follow up: Response: No adverse reaction; Nausea is decreased ko1 10:21 Drug: morphine IVP or IV 2 mg Route: IVP; Infused Over: 4 mins; Site: left forearm; ko1 11:16 Follow up: Response: No adverse reaction; Pain is decreased ko1 10:23 Drug: metroNIDAZOLE IVPB 500 mg Volume: 100 ml; Route: IVPB; Rate: 200 ml/hr; Infused ko1 Over: 30 mins; Site: left forearm; 11:18 Follow up: Response: No adverse reaction; IV Status: Completed infusion; IV Intake: ko1 100ml 11:10 Drug: Ciprofloxacin IVPB 400 mg Volume: 200 ml; Route: IVPB; Infused Over: 60 mins; ko1 Site: left forearm; 12:10 Follow up: IV Status: Completed infusion; IV Intake: 200ml ko1 12:33 Follow up: Response: No adverse reaction ko1 Disposition Summary: 08/21/22 11:03 Hospitalization Ordered Hospitalization Status: Observation salvador Provider: Hermilo Worthington cha Location: Telemetry/MedSurg (observation) salvador Condition: Fair salvador Problem: new salvador Symptoms: have improved salvdaor Bed/Room Type: Standard salvador Room Assignment: 427(08/21/22 12:17) Diagnosis - Diarrhea, unspecified salvador - Weakness salvador - Hypotension, unspecified salvador - Enterocolitis due to Clostridium difficile salvador Forms: - Medication Reconciliation Form salvador - SBAR form salvador Signatures: Dispatcher [employer] EDMS [place]a herrera RN RN dw Anderson, Corey, MD MD cha Oliver, Kathy, RN RN ko1 Corrections: (The following items were deleted from the chart) 09:44 PMHx: Hypertension; ko1 ko1 09:44 PMHx: Myocardial infarction; ko1 ko1 09:44 PMHx: Parkinsons; ko1 ko1 09:44 PMHx: Hyperlipidemia; ko1 ko1 09:44 PMHx: CVA; ko1 ko1 09:44 PMHx: Congestive heart failure; ko1 ko1 09:44 PMHx: PTSD; ko1 ko1 09:44 PMHx: Hyperlipidemia; ko1 ko1 12:17 11:03 salvador ruggiero
--- NOTE | 2022-08-21 11:03 | ER ---
Nurse's Notes [facility] Name: Madiha Breaux Age: 87 yrs Sex: Female : 1935 Arrival Date: 08/21/2022 Time: 09:19 Bed 13 Private MD: Diagnosis: Diarrhea, unspecified;Weakness;Hypotension, unspecified;Enterocolitis due to Clostridium difficile Presentation: 08/21 09:30 Chief complaint: EMS states: patient called for diarrhea x 2 weeks, has been to her PCP tasha who did a stool sample and it came back negative for c-diff. She has a hx of diverticulitis. Coronavirus screen: At this time, the client does not indicate any symptoms associated with coronavirus-19. Ebola Screen: No symptoms or risks identified at this time. Initial Sepsis Screen: Does the patient meet any 2 criteria? No. Patient's initial sepsis screen is negative. Does the patient have a suspected source of infection? No. Patient's initial sepsis screen is negative. Risk Assessment: Do you want to hurt yourself or someone else? Patient reports no desire to harm self or others. Onset of symptoms is unknown. 09:30 Method Of Arrival: EMS: [facility] ko1 09:30 Acuity: DAMIR 3 ko1 Triage Assessment: 09:30 General: Appears in no apparent distress. comfortable, Behavior is calm, cooperative, ko1 appropriate for age. Pain: Complains of pain in right lower quadrant and left lower quadrant. 09:30 EENT: No deficits noted. ko1 Historical: - Allergies: 09:44 Codeine; ko1 09:44 Demerol; ko1 09:44 Fentanyl; ko1 09:44 lamital; ko1 09:44 Jones; ko1 09:44 PENICILLINS; ko1 09:44 PORK/PORCINE PRODUCT DERIVATIVES; ko1 09:44 Sulfa (Sulfonamide Antibiotics); ko1 - Immunization history:: Adult Immunizations unknown. - Social history:: Smoking status: Patient/guardian denies using tobacco, but has a distant history of tobacco abuse. - Family history:: not pertinent. Screenin:15 [facility] ED Fall Risk Assessment (Adult) History of falling in the last 3 months, ko1 including since admission No falls in past 3 months (0 pts) Confusion or Disorientation No (0 pts) Intoxicated or Sedated No (0 pts) Impaired Gait No (0 pts) Mobility Assist Device Used No (0 pt) Altered Elimination No (0 pt) Score/Fall Risk Level 0 - 2 = Low Risk Oriented to surroundings, Maintained a safe environment, Educated pt \T\ family on fall prevention, incl call for assistance when getting out of bed, Assessed \T\ reinforced patient's understanding of fall precautions, Provided non-skid footwear, Hourly rounding (assess needs \T\ fall precautionary measures) done, Used ambulatory aids as needed (educated on \T\ assisted with), Used gait belt as appropriate. Abuse screen: Denies threats or abuse. Denies injuries from another. Nutritional screening: No deficits noted. Tuberculosis screening: No symptoms or risk factors identified. Assessment: 10:00 General: Appears in no apparent distress. ill, Behavior is calm, cooperative, ko1 appropriate for age. Pain: Complains of pain in abdomen. Neuro: No deficits noted. Cardiovascular: No deficits noted. Respiratory: No deficits noted. GI: No deficits noted. : No deficits noted. EENT: No deficits noted. Derm: Skin is fragile, Wound noted gluteal cleft Wound is purple fragile area at top of gluteal cleft. Decubitus located on top of gluteal cleft approximately 2.6 cm to 7.5 cm. Musculoskeletal: No deficits noted. Vital Signs: 09:30 BP 131 / 51; Pulse 66; Resp 16; Temp 98; Pulse Ox 93% ; ko1 10:00 BP 128 / 49; Pulse 64; Resp 18; Pulse Ox 94% ; ko1 10:30 BP 122 / 49; Pulse 60; Resp 16; Pulse Ox 91% ; ko1 11:00 BP 158 / 62; Pulse 66; Resp 16; Pulse Ox 100% on 2 lpm NC; ko1 ED Course: 09:22 Patient arrived in ED. mm9 09:25 Tami Amado, AMY is Primary Nurse. ko1 09:26 Hao Joyce MD is Attending Physician. salvador 09:30 Arm band placed on right wrist. Patient placed in an exam room, on a stretcher, on ko1 monitoring analyst, on pulse oximetry, Patient notified of wait time. 10:15 Lactate w/ 2H reflex if indic. Sent. ko1 10:15 Lipase Sent. ko1 10:15 Basic Metabolic Panel Sent. ko1 10:15 CBC with Diff Sent. ko1 10:15 LFT's Sent. ko1 10:15 Magnesium Sent. ko1 10:15 NT PRO-BNP Sent. ko1 10:15 PT-INR Sent. ko1 10:15 Troponin HS Sent. ko1 10:15 Inserted saline lock: 22 gauge in left forearm, using aseptic technique. Blood ko1 collected. 10:15 No provider procedures requiring assistance completed. ko1 10:15 Patient has correct armband on for positive identification. Placed in gown. Bed in low ko1 position. Call light in reach. Side rails up X 1. Provided Education on: na. 10:21 XRAY Chest (1 view) In Process Unspecified. EDMS 10:33 Triage completed. ko1 11:01 Hermilo Worthington MD is Hospitalizing Provider. [facility] 11:06 CT Abd/Pelvis - IV Contrast Only In Process Unspecified. EDMS 11:41 Fecal Leukocyte Stain Sent. ko1 11:41 Stool Culture Sent. ko1 11:41 C.difficile GDH Ag Sent. ko1 11:41 Urinalysis w/ reflexes Sent. ko1 12:28 Patient admitted, IV remains in place. ko1 Administered Medications: 10:15 Drug: NS 0.9% IV 1000 ml Route: IV; Rate: 1 bolus; Site: left forearm; ko1 11:17 Follow up: Response: No adverse reaction; IV Status: Completed infusion; IV Intake: ko1 1000ml 10:15 Drug: Ondansetron IVP 4 mg Route: IVP; Site: left forearm; ko1 11:17 Follow up: Response: No adverse reaction; Nausea is decreased ko1 10:21 Drug: morphine IVP or IV 2 mg Route: IVP; Infused Over: 4 mins; Site: left forearm; ko1 11:16 Follow up: Response: No adverse reaction; Pain is decreased ko1 10:23 Drug: metroNIDAZOLE IVPB 500 mg Volume: 100 ml; Route: IVPB; Rate: 200 ml/hr; Infused ko1 Over: 30 mins; Site: left forearm; 11:18 Follow up: Response: No adverse reaction; IV Status: Completed infusion; IV Intake: ko1 100ml 11:10 Drug: Ciprofloxacin IVPB 400 mg Volume: 200 ml; Route: IVPB; Infused Over: 60 mins; ko1 Site: left forearm; 12:10 Follow up: IV Status: Completed infusion; IV Intake: 200ml ko1 12:33 Follow up: Response: No adverse reaction ko1 Medication: 12:26 VIS not applicable for this client. ko1 Intake: 11:17 IV: 1000ml; Total: 1000ml. ko1 11:18 IV: 100ml; Total: 1100ml. ko1 12:10 IV: 200ml; Total: 1300ml. ko1 Outcome: 11:03 Decision to Hospitalize by Provider. salvador 12:28 Admitted to Med/surg ko1 12:28 Condition: stable 12:28 Instructed on the need for admit. 12:48 Admitted to Med/surg accompanied by sancho, via wheelchair, room 427, with chart, Report ko1 called to [place] 12:49 Patient left the ED. ko1 12:52 Patient left the ED. ko1 Signatures: Dispatcher [employer] EDHao Rios MD MD cha Oliver, Kathy, RN RN cr1 Mariela Miranda mm9 Corrections: (The following items were deleted from the chart) 09:44 09:44 PMHx: Hypertension; ko1 ko1 09:44 09:44 PMHx: Myocardial infarction; ko1 ko1 09:44 09:44 PMHx: Parkinsons; ko1 ko1 09:44 09:44 PMHx: Hyperlipidemia; ko1 ko1 09:44 09:44 PMHx: CVA; ko1 ko1 09:44 09:44 PMHx: Congestive heart failure; ko1 ko1 09:44 09:44 PMHx: PTSD; ko1 ko1 09:44 09:44 PMHx: Hyperlipidemia; ko1 ko1
--- NOTE | 2022-08-21 11:13 | RAD REPORT ---
EXAM DESCRIPTION: CTAbdomen Pelvis W Contrast - 08/21/2022 11:05 am CLINICAL HISTORY: Abdominal pain. ABD PAIN COMPARISON: Abdomen Pelvis W Contrast dated 12/21/2018; CT ABD PELVIS W CONTRAST dated 03/27/2015 TECHNIQUE: Biphasic CT imaging of the abdomen and pelvis was performed with 100 ml non-ionic IV cont rast. All CT scans are performed using dose optimization technique as appropriate and may include automated exposure control or mA/KV adjustment according to patient size. FINDINGS: Poorly defined tree-in-bud opacities are present both lung bases probably chronic. The liver, spleen, pancreas, adrenal glands and kidneys are within normal limits. Aortoiliac atherosc lerosis. No bowel obstruction, free air, free fluid or abscess. There is enhancement seen of the rectosigmoid colon wall with small amount of surrounding fluid and edema in lower pelvic fat suspicious may relate to colitis/proctitis. No abscess seen. The appendix is normal. No evidence of significant lymphaden opathy. Mild to moderate lumbosacral degenerative changes. IMPRESSION: Mild to moderate rectosigmoid proctitis pattern is suspected mild fluid and edema within the intrapelvic fat. No abscess seen.
[2022-08-21] MEDS ORDERED: ALBUTEROL 2.5 MG/3 ML NEB SOL NEB PRN (11:23)
[2022-08-21] MEDS ORDERED: LOPERAMIDE HCL 2 MG CAPSULE PO PRN (11:27)
[2022-08-21] MEDS ORDERED: HOME MED 1 EA UNK (Budesonide/Formoterol Fumarate [Symbicort 80-4.5 Mcg Inhaler] 10.2 GM H IH PRN (11:31)
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
[2022-08-21 12:03] LABS: Specific Gravity 1.018 (1.005-1.030); Urine Bacteria None Seen /HPF (<20); Urine Bilirubin NEGATIVE (Negative); Urine Blood 3+ (Negative); Urine Clarity Turbid (Clear); Urine Color Light-Yellow (Yellow); Urine Glucose NEGATIVE (Negative); Urine Mucus Slight /HPF (None Seen); Urine Protein NEGATIVE (Negative); Urine Urobilinogen Normal (Normal); Urine pH 5.5 (5.0-7.0)
[2022-08-21 12:48] LABS: C.diff Antigen/Toxin Ag pos : Tox pos (NEG : NEG)
[2022-08-21] MEDS: NA CHLORIDE 0.9% 1,000 ML IV SCH ×2 (13:10→22:00)
[2022-08-21 13:19] VITALS: BMI 19.5
[2022-08-21] MEDS: IPRATROPIUM BROM 0.5MG/2.5ML NEB SCH ×2 (14:22→20:45)
--- NOTE | 2022-08-21 14:47 | CON ---
Diagnosis: Colitis. History Of Present Illness: This is the case of an 87-year-old patient with history of diarrhea, adm itted to the hospital with diarrhea and bloody stools, found to have colitis. Apparently, not too lo ng ago, she was diagnosed with diverticulitis and also colitis and on multiple occasions C diff colit is. The patient was admitted to the hospital for IV antibiotics and a surgical consult was obtained. She does not recall her last colonoscopy. She denies any trauma, any dysuria, hematuria, hematoche kris other than mentioned above. No melena. Allergies: FENTANYL, CODEINE, HYDROCODONE, MEPERIDINE, PENICILLIN, SULFA. Medications: Include aspirin, Eliquis, Apresoline, Lipitor, Symbicort, Cipro and Flagyl. Social History: She does not smoke. She does not drink alcohol. Family History: Includes heart disease and unknown cancer. Physical Examination: General: The patient is awake, alert, oriented x3. HEENT: Pupils are equal and reactive. Anicteric. Neck: Supple. Chest: Clear. Heart: S1, S2. Abdomen: Left lower quadrant and pelvic pain. No rebound tenderness. Soft and depressible. Rectal: Deferred. Extremities: Good capillary refill. Breasts: Deferred. Laboratory Data: Blood work shows WBC count of 7.1, hemoglobin of 10.7. INR is 1.56, potassium 3.8, total bilirubin of 1.5, lipase 25. Urine is leukocyte 500, WBC count [address] shows [id number] rectosigmoid proctitis pattern and suspect mild fluid and edema within the intrapelv ic fat. No evidence of lymphadenopathy. Appendix seems to be normal by the radiologist. The enhanc ement of the rectosigmoid colon wall may be related to colitis and proctitis. No bowel obstruction s een. Assessment: An 87-year-old patient with colitis. Apparently, this is a problem she has been caring for the last several months, multiple visits to many doctors, multiple diagnoses of diverticulitis, b ut also C diff colitis. We encouraged culture of the stools, encouraged GI evaluation. From the gil gical standpoint, we explained to them the options for emergent situation or perforation that she may encounter. The benefits, alternatives, and risks were fully discussed and obviously she does not li ke the surgical intervention options, but she will be compliant with the treatment of the medical doc tor to see if she can save herself from that and the family is at bedside, they understood. HELIO/KATTY Voice ID: [id number] Report ID: [id number]
[2022-08-21] MEDS: METRONIDAZOLE 500mg IVPB 500 MG/100 ML BAG IV SCH (16:54)
[2022-08-21] MEDS ORDERED: CIPROFLOXACIN 400mg IV 400 MG/200 ML BAG IV SCH (21:00)
[2022-08-22] MEDS: METRONIDAZOLE 500mg IVPB 500 MG/100 ML BAG IV SCH (00:35)
[2022-08-22] MEDS: NA CHLORIDE 0.9% 1,000 ML IV SCH ×4 (00:36→20:59)
[2022-08-22] MEDS: IPRATROPIUM BROM 0.5MG/2.5ML NEB SCH ×4 (02:30→20:45)
[2022-08-22 04:16] LABS: Hematocrit 26.3 % (36.0-45.0); Lymphocytes % 15.1 % (15.3-44.8); MCV 89.8 fL (80-100); MPV 7.9 fL (7.6-11.3); RBC Red Blood Cell Count 2.92 M/uL (3.86-4.86)
[2022-08-22 04:36] LABS: Albumin 2.2 g/dL (3.4-5.0); Bilirubin Total 1.1 mg/dL (0.2-1.0); Potassium 3.7 mEq/L (3.5-5.1); Protein, Total 4.8 g/dL (6.4-8.2)
[2022-08-22] MEDS: FIDAXOMICIN 200 MG TABLET PO SCH ×2 (08:49→21:04)
[2022-08-22] MEDS: LOSARTAN POTASSIUM 50 MG TABLET PO SCH ×2 (09:00→21:00)
[2022-08-22] MEDS: carvediloL 3.125 MG TAB PO SCH ×2 (09:00→21:00)
[2022-08-22] MEDS: SERTRALINE HCL 50 MG TAB PO SCH (09:10)
[2022-08-22] MEDS: APIXABAN 2.5 MG TABLET PO SCH ×2 (09:10→21:01)
--- NOTE | 2022-08-22 09:39 | P.PN ---
Subjective Date of Service: 08/22/22 Chief Complaint: Diarrhea with bleeding Subjective: Improving (Patient is improving frequency of diarrhea is decreasing C. difficile positive) Review of Systems General: Weakness Gastrointestinal: Abdominal Pain, Diarrhea Physical Examination - Vital Signs Temperature: 98.6 F Blood Pressure: 117/41 Pulse: 53 Respirations: 16 Pulse Ox (%): 99 - Physical Exam General: Alert, In no apparent distress, Oriented x3 Cardiovascular: No edema, Regular rate/rhythm, Normal S1 S2 Gastrointestinal: Normal bowel sounds, Tenderness - Studies Laboratory Data (last 24 hrs) 08/21/22 10:05: PT 17.2 H, INR 1.56 08/21/22 10:05: WBC 7.10, Hgb 10.7 L, Hct 32.1 L, Plt Count 222 08/21/22 10:05: Sodium 133 L, Potassium 3.8, BUN 14, Creatinine 0.90, Glucose 90, Magnesium 1.8, Total Bilirubin 1.5 H, AST 17, ALT 12 L, Alkaline Phosphatase 71, Lipase 25 Assessment And Plan - Current Problems (Diagnosis) (1) Colitis Current Visit: Yes Status: Acute Plan: Patient is 87 years of age admitted with C. difficile colitis C. difficile toxin is positive we will start patient on fidaxomicin 100 mg twice a day for 10 days see IV antibiotics continue with IV fluids patient does not want to be resuscitated labs vital signs reviewed medications resumed mildly anemic Discharge Plan: Home Plan to discharge in: 24 Hours
[2022-08-22] MEDS: ZOLPIDEM TARTRATE 10 MG TABLET PO SCH (21:00)
[2022-08-22] MEDS: ATORVASTATIN 10 MG TAB PO SCH (21:01)
[2022-08-23] MEDS: IPRATROPIUM BROM 0.5MG/2.5ML NEB SCH ×4 (01:05→20:15)
[2022-08-23] MEDS: NA CHLORIDE 0.9% 1,000 ML IV SCH ×2 (07:00→17:37)
[2022-08-23] MEDS: carvediloL 3.125 MG TAB PO SCH ×2 (09:00→20:04)
[2022-08-23] MEDS: SERTRALINE HCL 50 MG TAB PO SCH (09:00)
[2022-08-23] MEDS: APIXABAN 2.5 MG TABLET PO SCH ×2 (09:00→20:04)
[2022-08-23] MEDS: LOSARTAN POTASSIUM 50 MG TABLET PO SCH ×2 (09:00→20:05)
--- NOTE | 2022-08-23 11:49 | EKG ---
Test Date: 2022-08-21 Test Time: 09:42:26 Manager [employer]: EM MEASUREMENT RESULTS: Intervals: Rate: 70 AL: 376 QRSD: 74 QT: 396 QTc: 427 [place]: P: 91 AL: 376 QRS: -58 T: 72 INTERPRETIVE STATEMENTS: Sinus rhythm with 1st degree AV block Left axis deviation Anteroseptal infarct, age undetermined Abnormal ECG Compared to ECG 07/28/2022 09:55:22 Left-axis deviation now present Left anterior fascicular block no longer present Myocardial infarct finding still present Electronically Signed On 08-23-22 11:45:45 CDT by Chris Strauss
[2022-08-23] MEDS: FIDAXOMICIN 200 MG TABLET PO SCH ×2 (14:20→20:05)
--- NOTE | 2022-08-23 15:40 | EKG ---
Test Date: 2022-08-23 Test Time: 12:03:22 Coding Clerk: CHATA MEASUREMENT RESULTS: Intervals: Rate: 51 HI: 384 QRSD: 76 QT: 430 QTc: 396 [place]: P: 73 HI: 384 QRS: -62 T: 30 INTERPRETIVE STATEMENTS: Sinus bradycardia with 1st degree AV block Left axis deviation Septal infarct, age undetermined Abnormal ECG Compared to ECG 08/21/2022 09:42:26 Sinus rhythm no longer present Myocardial infarct finding still present Electronically Signed On 08-23-22 15:40:21 CDT by Chris Strauss
--- NOTE | 2022-08-23 17:40 | P.PN ---
Subjective Date of Service: 08/23/22 Chief Complaint: Diarrhea with bleeding Patient denies any diarrhea today. She states that her stools are formed. She reports abdominal pain, decreased appetite. No recorded fever. She has been experiencing episodes of bradycardia. Physical Examination - Vital Signs Temperature: 97.6 F Blood Pressure: 118/57 Pulse: 54 Respirations: 18 Pulse Ox (%): 96 - Physical Exam General: Alert, In no apparent distress HEENT: Mucous membr. moist/pink Neck: Supple, JVD not distended Respiratory: Clear to auscultation bilaterally, Normal air movement Cardiovascular: No edema, Normal S1 S2, Irregular heart rate/rhythm (Bradycardia) Gastrointestinal: Normal bowel sounds, Non-distended, Tenderness (Diffuse) Musculoskeletal: No swelling, No tenderness Integumentary: No rashes Neurological: Normal strength at 5/5 x4 extr Assessment And Plan - Current Problems (Diagnosis) (1) C. difficile colitis Current Visit: Yes Status: Acute (2) Norm-tachy syndrome Current Visit: Yes Status: Acute (3) Atrial fibrillation and flutter Current Visit: No Status: Acute (4) HTN (hypertension) Current Visit: No Status: Chronic Qualifiers: Hypertension type: primary hypertension Qualified Code(s): I10 - Essential (primary) hypertension (5) History of CVA (cerebrovascular accident) Current Visit: No Status: Chronic - Plan 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 Continue Fidoximide. Hold loperamide given high risk for toxic megacolon. Infectious disease consult. PT consult to evaluate functional status. Diet as tolerated. Patient with bradycardia tachycardia syndrome/ afib. Family states she is scheduled for pacemaker placement with Dr. Gamez. Blood pressure has been stable Continue telemetry. Continue Coreg and Eliquis for A-fib anticoagulation.
[2022-08-23] MEDS: ATORVASTATIN 10 MG TAB PO SCH (20:04)
[2022-08-23] MEDS: ZOLPIDEM TARTRATE 10 MG TABLET PO SCH (20:04)
[2022-08-24] MEDS: IPRATROPIUM BROM 0.5MG/2.5ML NEB SCH ×4 (02:15→19:55)
[2022-08-24] MEDS: NA CHLORIDE 0.9% 1,000 ML IV SCH (03:52)
--- NOTE | 2022-08-24 07:24 | P.PN ---
Date of Service: 08/24/22 Subjective: no acute events overnight no further diarrhea feels she is improving remains on mild O2. ROS: 10 point ROS as noted above, otherwise negative Physical Exam: GEN: Alert, oriented, NAD HEENT: Normal conjunctiva, sclera anicteric CV: Bradycardia, no edema Pulm: Nonlabored respirations on 2L NC ABD: Soft, mild diffuse tenderness Neuro: Normal speech, normal affect vitals reviewed Problem List: C. Diff Colitis asymptomatic bacteruria Marek-tachy syndrome Afib, paroxysmal, chronic Hypertension History of CVA C. Difficile Colitis UTI, E. Coli CT Abdomen (08/21): Mild to moderate rectosigmoid proctitis pattern is suspected mild fluid and edema within the intrapelvic fat. No abscess seen. 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 C.diff antigen positive, toxin positive Stool culture: pending Urine culture: E. Coli denies any uti symptoms this is consistent with asymptomatic bacteruria; will hold off on any further antibiotics for now ID consulted Continue Fidoximide (08/22- ~09/01) x10 days Start probiotic Hold loperamide given high risk for toxic megacolon. IVF DCd Atrial fibrillation with h/o marek-tachy syndrome Patient with bradycardia tachycardia syndrome/ afib. Family states she is scheduled for pacemaker placement with Dr. Ortega. Monitor on telemetry Continue Coreg and Eliquis for A-fib. History of CVA PT consult Hypertension Continue home medications VTE: Home Eliquis Code: DNR Dispo: Home, ~1-2 days
[2022-08-24] MEDS: carvediloL 3.125 MG TAB PO SCH ×2 (09:00→21:19)
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
[2022-08-24] MEDS: LOSARTAN POTASSIUM 50 MG TABLET PO SCH ×2 (09:37→21:18)
[2022-08-24] MEDS: FIDAXOMICIN 200 MG TABLET PO SCH ×2 (09:38→21:00)
[2022-08-24] MEDS: APIXABAN 2.5 MG TABLET PO SCH ×2 (09:41→21:18)
[2022-08-24] MEDS: SERTRALINE HCL 50 MG TAB PO SCH (09:42)
--- NOTE | 2022-08-24 13:38 | PN ---
Date of Progress Note: 08/24/2022 Reason For Service: Colitis. Subjective: The patient is doing better. No nausea, no vomiting. Tolerating diet. Abdomen is gerald gn. WBC count was reviewed with the patient and it is getting lower. The patient has been treated f or C diff colitis. Appreciate Infectious Disease service and Dr. Lizeth mancera. From a surgical st andpoint, no indication for surgery at this moment. Hopefully, she will continue improving. She und erstands that if something goes wrong, sometimes colitis can get worse and need emergent surgery. Sury faria has a family member who from toxic megacolon from C diff colitis, so they are familiarize with the worst of this disease, but in her case, she is improving, so we are going to keep an eye on her. Hopefully, she is compliant and improved from this condition. HELIO/KATTY Voice ID: [id number] Report ID: [id number]
[2022-08-24] MEDS ORDERED: ALBUTEROL 2.5 MG/3 ML NEB SOL NEB PRN ×2 (15:00→15:06)
[2022-08-24] MEDS ORDERED: ALBUTEROL INHALER 60 PUFF/8 GM IH PRN (15:10)
[2022-08-24] MEDS: ZOLPIDEM TARTRATE 10 MG TABLET PO SCH (21:18)
[2022-08-24] MEDS: ATORVASTATIN 10 MG TAB PO SCH (21:18)
[2022-08-25] MEDS: IPRATROPIUM BROM 0.5MG/2.5ML NEB SCH ×4 (01:40→20:15)
[2022-08-25 06:41] LABS: Hematocrit 28.2 % (36.0-45.0); Lymphocytes % 23.6 % (15.3-44.8); MCV 90.1 fL (80-100); MPV 7.8 fL (7.6-11.3); RBC Red Blood Cell Count 3.13 M/uL (3.86-4.86)
[2022-08-25 06:55] LABS: Albumin 2.3 g/dL (3.4-5.0); Bilirubin Total 0.4 mg/dL (0.2-1.0); Magnesium 1.7 mg/dL (1.6-2.4); Potassium 3.7 mEq/L (3.5-5.1); Protein, Total 5.2 g/dL (6.4-8.2)
--- NOTE | 2022-08-25 07:23 | P.PN ---
Date of Service: 08/25/22 Subjective: feeling better each day no further diarrhea for a few days breathing improved, weaning O2, off nasal cannula today no fever ROS: 10 point ROS as noted above, otherwise negative Physical Exam: GEN: Alert, oriented, NAD HEENT: Normal conjunctiva, sclera anicteric CV: Bradycardia intermittently, no edema Pulm: Nonlabored respirations on room air at rest ABD: Soft, mild lower abdominal tenderness, non-distended Neuro: Normal speech, normal affect vitals reviewed Problem List: C. Diff Colitis asymptomatic bacteruria Marek-tachy syndrome Afib, paroxysmal, chronic Hypertension History of CVA C. Difficile Colitis UTI, E. Coli CT Abdomen (08/21): Mild to moderate rectosigmoid proctitis pattern is suspected mild fluid and edema within the intrapelvic fat. No abscess seen. 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 C.diff antigen positive, toxin positive Stool culture: pending Urine culture: E. Coli denies any uti symptoms this is consistent with asymptomatic bacteruria; will hold off on any further antibiotics for now ID consulted Continue Fidaxomicin (08/22- ~09/01) x10 days Start probiotic Hold loperamide given high risk for toxic megacolon. IVF DCd lasix x1 08/25 Atrial fibrillation with h/o marek-tachy syndrome Patient with bradycardia tachycardia syndrome/ afib. Family states she is scheduled for pacemaker placement with Dr. Ortega. Monitor on telemetry Continue Coreg and Eliquis for A-fib. family report patient was taking lasix up until last few weeks stopped on their own due to concern for dehydration due to diarrhea small effusion noted on CXR R lung opacity concerning for edema vs infxn, suspect this is more fluid lasix ordered 08/25 History of CVA PT consult Hypertension Continue home medications VTE: Home Eliquis Code: DNR Dispo: Home, ~1-2 days
--- NOTE | 2022-08-25 07:36 | RAD REPORT ---
EXAM DESCRIPTION: RAD - Chest Single View - 08/25/2022 5:08 am CLINICAL HISTORY: hypoxia Chest pain. COMPARISON: Chest Single View dated 08/21/2022; Chest Single View dated 07/28/2022; Chest Single View dated 10/19/2021; Chest Single View dated 08/25/2021 FINDINGS: Portable technique limits examination quality. The lungs are emphysematous. Moderate opacity is seen in the medial right lung base likely representi ng infiltrate/ pneumonia. A small left pleural effusion is present. The heart is upper limit normal i n size. Aortic atherosclerosis. IMPRESSION: Moderate infiltrate in the right lung base likely pneumonia.
[2022-08-25] MEDS: LOSARTAN POTASSIUM 50 MG TABLET PO SCH ×2 (07:48→21:30)
[2022-08-25] MEDS: SERTRALINE HCL 50 MG TAB PO SCH (07:48)
[2022-08-25] MEDS: APIXABAN 2.5 MG TABLET PO SCH ×2 (07:48→21:29)
[2022-08-25] MEDS: carvediloL 3.125 MG TAB PO SCH ×2 (07:49→21:30)
[2022-08-25] MEDS: FIDAXOMICIN 200 MG TABLET PO SCH ×2 (07:50→21:31)
--- NOTE | 2022-08-25 09:59 | P.PN ---
Date of Service: 08/25/22 Chief Complaint: Diarrhea with bleeding Subjective: Patient seen and examined at bedside. Reports improvement in diarrhea. Reports some shortness of breath. Denies any chest pain, abdominal pain, nausea or vomiting. No dysuria, hematuria, urinary frequency, retention or urgency. Daughter at bedside. Physical Examination Temp Pulse Resp BP Pulse Ox 96.9 F 61 17 137/55 L 96 08/25/22 04:00 08/25/22 04:00 08/25/22 04:00 08/25/22 04:00 08/25/22 04:00 General: Alert, In no apparent distress, Oriented x3 HEENT: Atraumatic, Normocephalic Neck: Supple, JVD not distended Respiratory: Normal air movement, breathing comfortably on room air at this time. Bibasilar crackles noted. Cardiovascular: No edema, Normal pulses Gastrointestinal: Normal bowel sounds, Tenderness Musculoskeletal: No clubbing Integumentary: No rashes Neurological: Normal speech, Normal tone, Normal affect Laboratory Data - Reviewed Microbiology Data - Reviewed Imagings Data: - Reviewed Medications List: Reviewed Assessment and Plan Problem List Hypertension Hyperlipidemia CAD Atrial Fibrillation COPD Chronic diastolic congestive heart failure C. difficile Infection, recurrent Anemia Severe PCM C.difficile Infection, Recurrent - CT Abdomen Pelvis 08/21: " Mild to moderate rectosigmoid proctitis pattern is suspected mild fluid and edema within the intrapelvic fat. No abscess seen." - C.diff antigen positive, toxin positive - Currently on Dificid PO (started 08/22) and probiotic - Stool culture 08/21: negative Urinary Tract Infection - Urine culture 08/21: Escherichia coli - Patient denies any symptoms of dysuria, frequency, urgency, retention, flank pain, suprapubic pain or back pain. Recommendations - C.diff: Continue Fidaxomicin x 10 days. Currently day 4 of 10 - Nutritional support - We will hold off on treating E.coli uti at this time as patient is asymptomatic. ID will follow patient as needed Case discussed with Fahad Shankar
[2022-08-25] MEDS ORDERED: FUROSEMIDE 40 MG TABLET PO ONE (12:55)
--- NOTE | 2022-08-25 16:40 | PN ---
Date of Progress Note: 08/25/2022 Diagnoses: Sigmoid colitis, proctitis, C diff colitis positive. Subjective: The patient is doing better. The pain is almost gone. She finally has a good bowel mov ement without diarrhea. Objective: Chest: Clear. Abdomen: Soft and depressible. No guarding or rebound. Extremities: Good capillary refill. Laboratory Data: The blood work reviewed. Plan: Continue treatment per medical doctors. They understand the options also of emergent surgery for a severe colitis at this moment. Apparently, she is going to recover medically. We advised her to consult her dietitian as an outpatient to make sure that she is eating properly and follow recomme ndations from the Infectious Disease and primary doctor about how to preserve her intestinal normal f lora. CAEDT/KATTY Voice ID: [id number] Report ID: [id number]
[2022-08-25] MEDS: ATORVASTATIN 10 MG TAB PO SCH (21:29)
[2022-08-25] MEDS: ZOLPIDEM TARTRATE 10 MG TABLET PO SCH (21:32)
[2022-08-26] MEDS: IPRATROPIUM BROM 0.5MG/2.5ML NEB SCH ×4 (01:35→19:45)
[2022-08-26 07:04] LABS: Absolute Lymphocytes (CBC) 1.3 K/uL (0.7-4.9); Hematocrit 32.8 % (36.0-45.0); Lymphocytes % 31.3 % (15.3-44.8); MCV 88.5 fL (80-100); MPV 7.4 fL (7.6-11.3); RBC Red Blood Cell Count 3.71 M/uL (3.86-4.86)
[2022-08-26 07:12] LABS: Albumin 2.7 g/dL (3.4-5.0); Bilirubin Total 0.6 mg/dL (0.2-1.0); Potassium 3.5 mEq/L (3.5-5.1); Protein, Total 5.9 g/dL (6.4-8.2)
--- NOTE | 2022-08-26 07:40 | P.PN ---
Date of Service: 08/26/22 Subjective: no further episodes of diarrhea desats to 80s after ambulating with PT, needing breaks to recover afebrile ROS: 10 point ROS as noted above, otherwise negative Physical Exam: GEN: Alert, oriented, NAD HEENT: Normal conjunctiva, sclera anicteric CV: Bradycardia intermittently, no edema Pulm: Nonlabored respirations on 2L NC at rest ABD: Soft, mild lower abdominal tenderness, non-distended Neuro: Normal speech, normal affect vitals reviewed Problem List: C. Diff Colitis asymptomatic bacteruria Marek-tachy syndrome Afib, paroxysmal, chronic Hypertension History of CVA C. Difficile Colitis UTI, E. Coli CT Abdomen (08/21): Mild to moderate rectosigmoid proctitis pattern is suspected mild fluid and edema within the intrapelvic fat. No abscess seen. 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 C.diff antigen positive, toxin positive Stool culture: negative Urine culture: E. Coli denies any uti symptoms this is consistent with asymptomatic bacteruria; will hold off on any further antibiotics for now ID consulted Continue Fidaxomicin (08/22- ~09/01) x10 days Start probiotic Hold loperamide given high risk for toxic megacolon. IVF DCd lasix x1 08/25 Atrial fibrillation with h/o marek-tachy syndrome Patient with bradycardia tachycardia syndrome/ afib. Family states she is scheduled for pacemaker placement with Dr. Ortega. Monitor on telemetry Continue Coreg and Eliquis for A-fib. family report patient was taking lasix up until last few weeks stopped on their own due to concern for dehydration due to diarrhea small effusion noted on CXR R lung opacity concerning for edema vs infxn, suspect this is more fluid lasix ordered 08/25 History of CVA PT consult Hypertension Continue home medications VTE: Home Eliquis Code: DNR Dispo: Home, ~1 day ss/cm consulted for Home oxygen setup
[2022-08-26] MEDS: LOSARTAN POTASSIUM 50 MG TABLET PO SCH ×2 (08:33→20:15)
[2022-08-26] MEDS: carvediloL 3.125 MG TAB PO SCH ×2 (08:33→20:16)
[2022-08-26] MEDS: APIXABAN 2.5 MG TABLET PO SCH ×2 (08:34→20:16)
[2022-08-26] MEDS: LACTOBACILLUS/ACIDOPHILUS TAB PO SCH (08:34)
[2022-08-26] MEDS: SERTRALINE HCL 50 MG TAB PO SCH (08:34)
[2022-08-26] MEDS: FIDAXOMICIN 200 MG TABLET PO SCH ×2 (08:35→20:15)
--- NOTE | 2022-08-26 10:00 | P.PN ---
Date of Service: 08/26/22 Chief Complaint: Diarrhea with bleeding Subjective: Improving. Patient seen and examined at bedside. Reports diarrhea has been resolved as she has not had diarrhea in >24 hours. Patient also reports breathing is a bit better than yesterday. Currently on 2L nasal cannula. Daughter at bedside. Physical Examination Temp Pulse Resp BP Pulse Ox 97.1 F 65 12 187/58 H 99 08/26/22 08:00 08/26/22 08:33 08/26/22 08:00 08/26/22 08:33 08/26/22 08:00 General: Alert, In no apparent distress, Oriented x3 HEENT: Atraumatic, Normocephalic Neck: Supple, JVD not distended Respiratory: Normal air movement, breathing comfortably on room air at this time. Bibasilar crackles noted. Cardiovascular: No edema, Normal pulses Gastrointestinal: Normal bowel sounds, Tenderness Musculoskeletal: No clubbing Integumentary: No rashes Neurological: Normal speech, Normal tone, Normal affect Laboratory Data - Reviewed Microbiology Data - Reviewed Imagings Data: - Reviewed Medications List: Reviewed Assessment and Plan Problem List Hypertension Hyperlipidemia CAD Atrial Fibrillation COPD Chronic diastolic congestive heart failure C. difficile Infection, recurrent Anemia Severe PCM C.difficile Infection, Recurrent - C.diff Antigen positive, Toxin positive - CT Abdomen Pelvis 08/21: " Mild to moderate rectosigmoid proctitis pattern is suspected mild fluid and edema within the intrapelvic fat. No abscess seen." - Currently on Dificid PO (started 08/22) and probiotic - Stool culture 08/21: negative - Diarrhea improved. Asymptomatic Bacteruria - Urine culture 08/21: Escherichia coli - Urinalysis 08/21: [3+ blood, Nitrite negative, LE 500, RBC 5-10, WBC 20-50, No bacteria seen] - Patient denies any symptoms of dysuria, frequency, urgency, retention, flank pain, suprapubic pain or back pain. Recommendations - C.difficile: Currently on day 5 of 10 on Fidaxomicin PO - Nutritional supplementation as needed - Asymptomatic bacteruria: urine culture growing E.coli. Patient is asymptomatic. Will hold off treating at this time. Wean off supplemental O2 as tolerated. Patient to reciveve another dose of lasix today and will eval for improvement in SOB. Obtain XR chest tomorrow. ID will follow patient as needed Case discussed with Fahad Shankar
[2022-08-26] MEDS ORDERED: FUROSEMIDE 40 MG TABLET PO ONE (13:51)
[2022-08-26] MEDS: ZOLPIDEM TARTRATE 10 MG TABLET PO SCH (20:15)
[2022-08-26] MEDS: ATORVASTATIN 10 MG TAB PO SCH (20:16)
[2022-08-27] MEDS: IPRATROPIUM BROM 0.5MG/2.5ML NEB SCH ×4 (01:20→19:30)
[2022-08-27 03:59] LABS: Absolute Lymphocytes (CBC) 1.5 K/uL (0.7-4.9); Hematocrit 30.1 % (36.0-45.0); Lymphocytes % 31.6 % (15.3-44.8); MCV 89.4 fL (80-100); MPV 7.6 fL (7.6-11.3); RBC Red Blood Cell Count 3.37 M/uL (3.86-4.86)
[2022-08-27 04:05] LABS: Magnesium 1.5 mg/dL (1.6-2.4); Potassium 3.2 mEq/L (3.5-5.1)
--- NOTE | 2022-08-27 08:10 | P.PN ---
Date of Service: 08/27/22 Subjective: feeling better breathing more comfortably now stating she was having difficulty swallowing / food stuck 2-3 days ago ROS: 10 point ROS as noted above, otherwise negative Physical Exam: GEN: Alert, oriented, NAD HEENT: Normal conjunctiva, sclera anicteric CV: Bradycardia intermittently, no edema Pulm: Nonlabored respirations on 2L NC at rest ABD: Soft, mild lower abdominal tenderness, non-distended Neuro: Normal speech, normal affect vitals reviewed Problem List: C. Diff Colitis acute hypoxemic resp failure b/l lung opacities, effusion Bacteuria, asymptomatic Marek-tachy syndrome Afib, paroxysmal, chronic Hypertension History of CVA C. Difficile Colitis CT Abdomen (08/21): mild-mod rectosigmoid proctitis pattern is suspected mild fluid and edema within the intrapelvic fat. No abscess seen. 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 C.diff antigen positive, toxin positive Stool culture: negative ID consulted Continue Fidaxomicin (08/22- ~09/01) x10 days continue probiotic acute hypoxemic resp failure b/l lung opacities, effusion CXR (08/25): Moderate infiltrate in the right lung base likely pneumonia vs edema opacities felt to be more likely due to pulm edema /effusion, on background of chronic opacities after covid CXR (08/27): pending CT Chest (08/27): Moderate right and mild-mod left tree-in-bud opacities may indicate an atypical pneumonia 1cm nodule ATILIO. f/u CT chest in 6 months recommended to assess stability/resolution pulm consulted for further input prior to just placing patient on further empi fabi antibiotics possibility of pneumonitis vs pneumonia given her episode of choking / food stuck ~2-3 days ago family report patient was taking lasix up until last few weeks stopped on their own due to concern for dehydration due to diarrhea small effusion noted on CXR lasix Bacteuria, asymptomatic reports prior episodes of being told she has a UTI states she is "always told" she has a UTI, everytime her urine is checked, and never has symptoms Urine culture: E. Coli and Enterococcus Avium denies any uti symptoms this is consistent with asymptomatic bacteruria; continue to hold off on any further antibiotics for now Atrial fibrillation with h/o marek-tachy syndrome Patient with bradycardia tachycardia syndrome/ afib. Family states she is scheduled for pacemaker placement with Dr. Ortega. Monitor on telemetry Continue Coreg and Eliquis for A-fib. History of CVA PT consult Hypertension Continue home medications VTE: Home Eliquis Code: DNR Dispo: Home, ~1-2 days ss/cm consulted for Home oxygen setup - approved
[2022-08-27] MEDS: LACTOBACILLUS/ACIDOPHILUS TAB PO SCH (09:00)
[2022-08-27] MEDS: APIXABAN 2.5 MG TABLET PO SCH ×2 (09:22→20:39)
[2022-08-27] MEDS: SERTRALINE HCL 50 MG TAB PO SCH (09:22)
[2022-08-27] MEDS: LOSARTAN POTASSIUM 50 MG TABLET PO SCH ×2 (09:22→20:40)
[2022-08-27] MEDS: carvediloL 3.125 MG TAB PO SCH ×2 (09:23→20:39)
[2022-08-27] MEDS: FIDAXOMICIN 200 MG TABLET PO SCH ×2 (09:24→20:41)
--- NOTE | 2022-08-27 09:49 | P.PN ---
Date of Service: 08/27/22 Chief Complaint: Diarrhea with bleeding Subjective: Patient still requiring intermittent supplemental O2. Family at bedside. Patient denies any worsening complaints. No acute events reported overnight. Physical Examination Temp Pulse Resp BP Pulse Ox 97.5 F 60 18 138/58 L 95 08/27/22 08:00 08/27/22 09:23 08/27/22 08:00 08/27/22 09:23 08/27/22 08:00 General: Alert, In no apparent distress, Oriented x3 HEENT: Atraumatic, Normocephalic Neck: Supple, JVD not distended Respiratory: Normal air movement, bon 2L NC. . Bibasilar crackles noted. Cardiovascular: No edema, Normal pulses Gastrointestinal: Normal bowel sounds, Tenderness Musculoskeletal: No clubbing Integumentary: No rashes Neurological: Normal speech, Normal tone, Normal affect Laboratory Data - Reviewed Microbiology Data - Reviewed Imagings Data: - Reviewed Medications List: Reviewed Assessment and Plan Problem List Hypertension Hyperlipidemia CAD Atrial Fibrillation COPD Chronic diastolic congestive heart failure C. difficile Infection, recurrent Anemia Severe PCM C.difficile Infection, Recurrent - C.diff Antigen positive, Toxin positive - CT Abdomen Pelvis 08/21: " Mild to moderate rectosigmoid proctitis pattern is suspected mild fluid and edema within the intrapelvic fat. No abscess seen." - Currently on Dificid PO (started 08/22) and probiotic - Stool culture 08/21: negative - Diarrhea improved. Asymptomatic Bacteruria - Urine culture 08/21: Escherichia coli and Enterococcus avium - Urinalysis 08/21: [3+ blood, Nitrite negative, LE 500, RBC 5-10, WBC 20-50, No bacteria seen] - Patient denies any symptoms of dysuria, frequency, urgency, retention, flank pain, suprapubic pain or back pain. Recommendations - C.difficile: Currently on day 6 of 10 on Fidaxomicin PO - Nutritional supplementation as needed - urine culture with e.coli and enterococcus avium. She denies any urinary symptoms. we will hold off on antibiotics at this time and continue to monitor. - Wean off supplemental O2 as tolerated. -Follow up with CT chest results ID will follow patient as needed Case discussed with Fahad Shankar
--- NOTE | 2022-08-27 10:32 | RAD REPORT ---
EXAM DESCRIPTION: CT - Thorax Wo Con - 08/27/2022 10:21 am CLINICAL HISTORY: sob COMPARISON: August 27, 2022 chest x-ray TECHNIQUE: Computed axial tomography of the chest was obtained. Contrast was not requested. All CT scans are performed using dose optimization technique as appropriate and may include automated exposure control or mA/KV adjustment according to patient size. FINDINGS: The evaluation of mediastinum, shahnaz and vessels is limited secondary to lack of IV contras t administration. Moderate tree-in-bud opacities scattered throughout the right lung. Mild to moderate tree-in-bud opac ities left lung. 1 centimeter nodule left upper lobe No mediastinal or hilar lymphadenopathy is seen. Small bilateral pleural effusions. Small pericardial effusion IMPRESSION: Moderate right and [id number] left tree-in-bud opacities may indicate an atypical pneumonia 1 centimeter nodule left upper lobe most likely infectious. Followup CT chest in 6 months recommended to assess stability/resolution
--- NOTE | 2022-08-27 10:45 | RAD REPORT ---
EXAM DESCRIPTION: Janeth Single View08/27/2022 4:48 am CLINICAL HISTORY: Shortness of breath COMPARISON: August 25 FINDINGS: Moderate reticulonodular opacities right lung. Mild to moderate reticulonodular opacities left lung. Small bilateral pleural effusions Heart is normal size IMPRESSION: Moderate right and mild to moderate left reticulonodular opacities probably an atypical pneumonia
[2022-08-27] MEDS ORDERED: FUROSEMIDE 40 MG/4 ML VIAL IV ONE (15:11)
[2022-08-27] MEDS ORDERED: FUROSEMIDE 40 MG TABLET PO ONE (15:30)
[2022-08-27] MEDS: ATORVASTATIN 10 MG TAB PO SCH (20:39)
[2022-08-27] MEDS: ZOLPIDEM TARTRATE 10 MG TABLET PO SCH (20:40)
[2022-08-28] MEDS: IPRATROPIUM BROM 0.5MG/2.5ML NEB SCH ×4 (01:20→19:45)
[2022-08-28 04:37] LABS: Absolute Lymphocytes (CBC) 1.4 K/uL (0.7-4.9); Hematocrit 29.9 % (36.0-45.0); Lymphocytes % 32.1 % (15.3-44.8); MCV 89.1 fL (80-100); MPV 7.6 fL (7.6-11.3); RBC Red Blood Cell Count 3.36 M/uL (3.86-4.86)
[2022-08-28 04:54] LABS: Magnesium 1.7 mg/dL (1.6-2.4); Potassium 3.2 mEq/L (3.5-5.1)
--- NOTE | 2022-08-28 07:34 | P.PN ---
Date of Service: 08/28/22 Subjective: continues to improve, breathing feels a little easier per patient - desat to ~84 after getting up to the bathroom, lasting for a few minutes, improved after breathing treatment midl abdominal discomfort ~unchanged ambulating with PT, +SOB on exertion ROS: 10 point ROS as noted above, otherwise negative Physical Exam: GEN: Alert, oriented, NAD HEENT: Normal conjunctiva, sclera anicteric CV: Bradycardia intermittently, no edema Pulm: Nonlabored respirations on 2L NC at rest ABD: Soft, mild lower abdominal tenderness, non-distended Neuro: Normal speech, normal affect vitals reviewed Problem List: C. Diff Colitis acute hypoxemic resp failure b/l lung opacities, effusion Bacteuria, asymptomatic Marek-tachy syndrome Afib, paroxysmal, chronic Hypertension History of CVA h/o copd C. Difficile Colitis CT Abdomen (08/21): mild-mod rectosigmoid proctitis pattern is suspected mild fluid and edema within the intrapelvic fat. No abscess seen. 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 C.diff antigen positive, toxin positive Stool culture: negative ID consulted Continue Fidaxomicin (08/22- ~09/01) x10 days continue probiotic acute hypoxemic resp failure b/l lung opacities, effusion CXR (08/25): Moderate infiltrate in the right lung base likely pneumonia vs edema opacities felt to be more likely due to pulm edema /effusion, on background of chronic opacities after covid CXR (08/27): Moderate right and mild to moderate left reticulonodular opacities probably an atypical pneumonia CT Chest (08/27): Moderate right and mild-mod left tree-in-bud opacities may indicate an atypical pneumonia 1cm nodule ATILIO. f/u CT chest in 6 months recommended to assess stability/resolution pulm consulted for further input prior to just placing patient on further empiric antibiotics possibility of pneumonitis vs pneumonia given her episode of choking / food stuck ~2-3 days ago family report patient was taking lasix up until last few weeks stopped on their own due to concern for dehydration due to diarrhea small effusion noted on CXR increase to IV lasix 08/28 Bacteuria, asymptomatic reports prior episodes of being told she has a UTI states she is "always told" she has a UTI, everytime her urine is checked, and never has symptoms Urine culture: E. Coli and Enterococcus Avium denies any uti symptoms this is consistent with asymptomatic bacteruria; continue to hold off on any further antibiotics for now Atrial fibrillation with h/o marek-tachy syndrome Patient with bradycardia tachycardia syndrome/ afib. Family states she is scheduled for pacemaker placement with Dr. Ortega. Monitor on telemetry Continue Coreg and Eliquis for A-fib. History of CVA PT consult Hypertension Continue home medications VTE: Home Eliquis Code: DNR Dispo: Home, ~1-2 days ss/cm consulted for Home oxygen setup - approved
[2022-08-28] MEDS: LACTOBACILLUS/ACIDOPHILUS TAB PO SCH (09:00)
[2022-08-28] MEDS: FIDAXOMICIN 200 MG TABLET PO SCH ×2 (09:00→20:47)
[2022-08-28] MEDS: SERTRALINE HCL 50 MG TAB PO SCH (09:24)
[2022-08-28] MEDS: carvediloL 3.125 MG TAB PO SCH ×2 (09:25→20:47)
[2022-08-28] MEDS: APIXABAN 2.5 MG TABLET PO SCH ×2 (09:26→20:46)
[2022-08-28] MEDS: LOSARTAN POTASSIUM 50 MG TABLET PO SCH ×2 (09:26→20:47)
[2022-08-28] MEDS ORDERED: FUROSEMIDE 40 MG/4 ML VIAL IV ONE (16:24)
[2022-08-28] MEDS ORDERED: POTASSIUM CL SA 10 MEQ TAB PO ONE (16:25)
[2022-08-28] MEDS: ATORVASTATIN 10 MG TAB PO SCH (20:46)
[2022-08-28] MEDS: ZOLPIDEM TARTRATE 10 MG TABLET PO SCH (20:47)
[2022-08-28 21:40] VITALS: O2SAT 98
[2022-08-29] MEDS: IPRATROPIUM BROM 0.5MG/2.5ML NEB SCH ×2 (01:30→08:09)
[2022-08-29 04:51] LABS: Magnesium 1.7 mg/dL (1.6-2.4); Potassium 3.6 mEq/L (3.5-5.1)
--- NOTE | 2022-08-29 07:13 | RAD REPORT ---
EXAM DESCRIPTION: RAD - Chest Single View - 08/29/2022 6:55 am CLINICAL HISTORY: f/u effusions COMPARISON: Chest Single View dated 08/27/2022; Chest Single View dated 08/25/2022; Chest Single View dated 08/21/2022; Chest Single View dated 07/28/2022; Thorax Wo Con dated 08/27/2022 FINDINGS: Lines: None. Lungs: Widespread nodularity as was seen on the recent chest CT again identified. Modest improvement in aeration of the right lung base. Large lung volumes. Pleural: Small bilateral pleural effusions. Cardiac: The heart size is within normal limits. Mediastinum: Within normal limits. Bones: No acute fractures. Other: None IMPRESSION: Mild improved aeration of the right lung base. Widespread nodularity again noted as seen on the recent chest CT. Small unchanged pleural effusions.
[2022-08-29] MEDS: APIXABAN 2.5 MG TABLET PO SCH (08:54)
[2022-08-29] MEDS: LOSARTAN POTASSIUM 50 MG TABLET PO SCH (08:54)
[2022-08-29] MEDS: SERTRALINE HCL 50 MG TAB PO SCH (08:55)
[2022-08-29] MEDS: LACTOBACILLUS/ACIDOPHILUS TAB PO SCH (08:58)
[2022-08-29] MEDS: carvediloL 3.125 MG TAB PO SCH (09:00)
[2022-08-29] MEDS: FIDAXOMICIN 200 MG TABLET PO SCH (09:00)
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
[2022-08-29 09:35] VITALS: BP 158/57; TEMP 98.2
--- NOTE | 2022-08-29 10:22 | P.DS ---
Admission Date: 08/21/22 Discharge Date: 08/29/22 Disposition: ROUTINE DISCHARGE Reason for Admission: Possible pneumonia possible pneumonia Consultations: General Surgery - Dr. Miranda Infectious Disease - Dr. Worthington Pulmonology - Dr. Worthington Brief History of Present Illness: Patient is 87 years of age who was on a trip developed severe diarrhea ended up here back in [place] she has been having persistent diarrhea with bloody stools. She has had colitis before was diagnosed by a GI specialist in [place] with a diagnosis of diverticulitis and colitis. She also has a history of C. difficile that was again diagnosed in November last year patient denies any nausea or vomiting has general abdominal discomfort Hospital Course: Problem List: C. Diff Colitis acute hypoxemic resp failure b/l lung opacities, effusion Bacteuria, asymptomatic Norm-tachy syndrome Afib, paroxysmal, chronic Hypertension History of CVA h/o copd Patient presented with persistent diarrhea with bloody stools. CT Abdomen reported mild-mod rectosigmoid proctitis pattern is suspected mild fluid and edema within the intrapelvic fat. She was found to have C. Diff Colitis. Infectious disease was consulted. Patient was treated with Fidaxomicin and had significant improvement of her symptoms. No further episodes of diarrhea for several days. Recommended to complete a 10 day course of Fidaxomicin. During her hospitalization, she reports having a history of frequent UTIs. States she is "always told" she has a UTI, everytime her urine is checked, and never has symptoms. Urine culture grew E. Coli and Enterococcus Avium. Patient denied any UTI related symptoms, remained afebrile without leukocytosis, asymptomatic. this is consistent with asymptomatic bacteruria. Discussed with ID, patient was not given any antibiotics, and continued to remain asymptomatic throughout her hospitalization. CT Chest reported moderate right and mild-mod left tree-in-bud opacities, possible atelectasis / edema, or an atypical pneumonia. Pulmonology was consulted. On day of discharge, xray showed improvement of the right lung base. No antibiotics warranted for pneumonia as patient has been asymptomatic and clinically no evidence of pneumonia. Patient remained afebrile throughout hospitalization. Denied worsening shortness of breath. Patient does have underlying COPD. Patient had improvement of her oxygenation and chest x-rays with restarting her lasix. She required 1-2 L of nasal cannula. Given her history of fluid retention and COPD, home O2 was set up on discharge. During her hospitalization a 1cm nodule ATILIO. was incidentally seen on CT. Recommended follow up CT chest in 6 months to assess stability/resolution. new / change in prescriptions Fidaxomicin for ~4 more days (started 08/22) probiotic Follow up: PCP 3-5 days Pulmonology within 1-2 weeks Cardiology as previously planned for pacemaker placement with Dr. Ortega. Physical Exam: GEN: Alert, oriented, NAD HEENT: Normal conjunctiva, sclera anicteric CV: Bradycardia intermittently, no edema Pulm: Nonlabored respirations on 2L NC at rest ABD: Soft, no tenderness, non-distended MSK: no tenderness Integumentary: No rashes Neuro: Normal speech, normal affect Vital Signs/Physical Exam: Temp Pulse Resp BP Pulse Ox 98.2 F 54 18 158/57 H 99 08/29/22 08:00 08/29/22 08:00 08/29/22 08:00 08/29/22 08:00 08/29/22 08:00 Laboratory Data at Discharge: WBC 4.20 thou/uL (4.3-10.9) L 08/28/22 03:58 Hgb 10.3 g/dL (12.0-15.0) L 08/28/22 03:58 Hct 29.9 % (36.0-45.0) L 08/28/22 03:58 Plt Count 243 thou/uL (152-406) 08/28/22 03:58 PT 17.2 SECONDS (9.5-12.5) H 08/21/22 10:05 INR 1.56 08/21/22 10:05 Sodium 135 mEq/L (136-145) L 08/29/22 04:02 Potassium 3.6 mEq/L (3.5-5.1) 08/29/22 04:02 BUN 25 mg/dL (7-18) H 08/29/22 04:02 Creatinine 1.19 mg/dL (0.55-1.02) H 08/29/22 04:02 Glucose 88 mg/dL (74-106) 08/29/22 04:02 Magnesium 1.7 mg/dL (1.6-2.4) 08/29/22 04:02 Total Bilirubin 0.6 mg/dL (0.2-1.0) 08/26/22 06:33 AST 35 U/L (15-37) 08/26/22 06:33 ALT 22 U/L (13-56) 08/26/22 06:33 Alkaline Phosphatase 67 U/L (45-117) 08/26/22 06:33 Lipase 25 U/L (13-75) 08/21/22 10:05 Home Medications: Atorvastatin Calcium [Lipitor*] 10 mg PO BEDTIME 08/19/21 Budesonide/Formoterol Fumarate [Symbicort 80-4.5 Mcg Inhaler] 2 puff IH Q4HP PRN 08/25/21 Albuterol Inhaler [Ventolin Inhaler*] 2 puff IH Q6H PRN 08/21/22 Apixaban [Eliquis] 2.5 mg PO BID 08/21/22 Carvedilol [Coreg] 3.125 mg PO BID 08/21/22 Cholecalciferol (Vitamin D3) [Vitamin D3] 2,000 unit PO DAILY 08/21/22 Losartan Potassium [Cozaar] 12.5 mg PO BID 08/21/22 Sertraline [Zoloft*] 25 mg PO DAILY 08/21/22 Zolpidem Tartrate 10 mg PO BEDTIME 08/21/22 Brexpiprazole [Rexulti] 1 mg PO BEDTIME 08/22/22 Albuterol Sulfate [Proair Hfa] 8.5 gm IH Q6HP PRN 08/24/22 Fidaxomicin [Dificid] 200 mg PO BID 4 Days #8 tab 08/29/22 Lactobacillus Acidophilus [Acidophilus Lactobacillus] 500 gm MC BID 7 Days #14 pkt 08/29/22 New Medications: Lactobacillus Acidophilus [Acidophilus Lactobacillus] 500 gm MC BID 7 Days #14 pkt Fidaxomicin [Dificid] 200 mg PO BID 4 Days #8 tab Physician Discharge Instructions: Patient presented with persistent diarrhea with bloody stools. CT Abdomen reported mild-mod rectosigmoid proctitis pattern is suspected mild fluid and edema within the intrapelvic fat. She was found to have C. Diff Colitis. Infectious disease was consulted. Patient was treated with Fidaxomicin and had significant improvement of her symptoms. No further episodes of diarrhea for several days. Recommended to complete a 10 day course of Fidaxomicin. During her hospitalization, she reports having a history of frequent UTIs. States she is "always told" she has a UTI, everytime her urine is checked, and never has symptoms. Urine culture grew E. Coli and Enterococcus Avium. Patient denied any UTI related symptoms, remained afebrile without leukocytosis, asymptomatic. this is consistent with asymptomatic bacteruria. Discussed with ID, patient was not given any antibiotics, and continued to remain asymptomatic throughout her hospitalization. CT Chest reported moderate right and mild-mod left tree-in-bud opacities, possible atelectasis / edema, or an atypical pneumonia. Pulmonology was consulted. On day of discharge, xray showed improvement of the right lung base. No antibiotics warranted for pneumonia as patient has been asymptomatic and clinically no evidence of pneumonia. Patient remained afebrile throughout hospitalization. Denied worsening shortness of breath. Patient does have underlying COPD. Patient had improvement of her oxygenation and chest x-rays with restarting her lasix. She required 1-2 L of nasal cannula. Given her history of fluid retention and COPD, home O2 was set up on discharge. During her hospitalization a 1cm nodule ATILIO. was incidentally seen on CT. Recommended follow up CT chest in 6 months to assess stability/resolution. new / change in prescriptions Fidaxomicin for ~4 more days (started 08/22) probiotic Follow up: PCP 3-5 days Pulmonology within 1-2 weeks Cardiology as previously planned for pacemaker placement with Dr. Ortega. Followup: NONE,NONE [Primary Care Provider] - Time spent managing pt's care (in minutes): 45
--- NOTE | 2022-08-31 15:09 | EKG ---
Test Date: 2022-08-26 Test Time: 20:31:50 [employer] Worker: Augustus MEASUREMENT RESULTS: Intervals: Rate: 74 LA: 360 QRSD: 74 QT: 444 QTc: 492 [place]: P: 101 LA: 360 QRS: -59 T: 64 INTERPRETIVE STATEMENTS: Sinus rhythm with 1st degree AV block Left axis deviation Anteroseptal infarct, age undetermined Abnormal ECG Compared to ECG 08/26/2022 20:28:26 Atrial premature complex(es) no longer present Myocardial infarct finding still present Electronically Signed On 08-31-22 15:01:06 CDT by Chris Strauss
--- NOTE | 2022-08-31 15:10 | EKG ---
Test Date: 2022-08-26 Test Time: 20:28:26 Scientific Recruiter: Augustus MEASUREMENT RESULTS: Intervals: Rate: 65 AL: 332 QRSD: 72 QT: 458 QTc: 476 [place]: P: 82 AL: 332 QRS: -66 T: 74 INTERPRETIVE STATEMENTS: Sinus rhythm with 1st degree AV block with premature atrial complexes Left axis deviation Anteroseptal infarct, age undetermined Abnormal ECG Compared to ECG 08/23/2022 12:03:22 Atrial premature complex(es) now present Sinus bradycardia no longer present Myocardial infarct finding still present Electronically Signed On 08-31-22 15:01:08 CDT by Chris Strauss
== END 2022-08-29 12:10 | disposition home health service (06) | DRG 371 ==
LOC: ER 09:19 → ERHOLD 11:23 → 4TH 12:36
PROVIDERS: ADMIT Internal Medicine Sleep Medicine; ATTEND Hospitalist
DX: A04.71 Enterocolitis due to Clostridium difficile, recurrent (principal); E43 Unspecified severe protein-calorie malnutrition; J96.01 Acute respiratory failure with hypoxia; E87.1 Hypo-osmolality and hyponatremia; I50.32 Chronic diastolic (congestive) heart failure; I48.92 Unspecified atrial flutter; N39.0 Urinary tract infection, site not specified; Z68.1 Body mass index [BMI] 19.9 or less, adult; Z88.5 Allergy status to narcotic agent; Z88.0 Allergy status to penicillin; Z88.8 Allergy status to other drugs, medicaments and biological substances; Z88.2 Allergy status to sulfonamides; Z91.014 Allergy to mammalian meats; Z87.891 Personal history of nicotine dependence; Z79.82 Long term (current) use of aspirin; Z79.899 Other long term (current) drug therapy; Z79.01 Long term (current) use of anticoagulants; I25.10 Atherosclerotic heart disease of native coronary artery without angina pectoris; Z86.73 Personal history of transient ischemic attack (TIA), and cerebral infarction without residual deficits; J44.9 Chronic obstructive pulmonary disease, unspecified; E78.5 Hyperlipidemia, unspecified; I25.2 Old myocardial infarction; Z90.710 Acquired absence of both cervix and uterus; D64.9 Anemia, unspecified; Z79.51 Long term (current) use of inhaled steroids; Z66 Do not resuscitate; I49.5 Sick sinus syndrome; I48.0 Paroxysmal atrial fibrillation; B96.20 Unspecified Escherichia coli [E. coli] as the cause of diseases classified elsewhere; K62.89 Other specified diseases of anus and rectum; R82.71 Bacteriuria; B95.2 Enterococcus as the cause of diseases classified elsewhere
CPT/HCPCS: 36415; 71045; 71250; 74177; 80048; 80053; 80076; 81001; 83605; 83690; 83735; 83880; 84484; 85025; 85610; 87045; 87046; 87077; 87086; 87088; 87186; 87324; 89055; 93005; 94640; 96365; 96375; 97110; 97116; 97161; 99285; J0744; J1940; J2270; J2405; J7030; J7644; J8499; Q9967

== ENCOUNTER 2022-10-08 00:50 | Emergency (ER) | payer OTHER ==
--- OUTSIDE RECORDS SUMMARY | 2022-10-08 00:53 | XMS REPORT | Continuity of Care Document ---
:1935 Author Organization [facility] t Address [address] [place] [address] Care Team Providers Name Role Phone Unavailable Unavailable Unavailable Problems This patient has no known problems. Allergies, Adverse Reactions, Alerts This patient has no known allergies or adverse reactions. Medications This patient has no known medications. Procedures This patient has no known procedures. Encounters Start End Encounter Admission Attending Care Care Encounter Source Date/Time Date/Time Type Type Clinicians Facility Department ID 2022-09-16 2022-09-16 Outpatient [facility] 15:01:08 15:01:08 [id number] [facility] 2022-08-17 2022-08-17 Outpatient [facility] 10:07:27 10:07:27 [id number] [facility] 2022-08-16 2022-08-16 Outpatient [facility] 09:37:42 09:37:42 [id number] [facility] 2022-06-29 2022-06-29 Outpatient [facility] 10:14:51 10:14:51 [id number] [facility] 2022-05-06 2022-05-06 Outpatient [facility] 13:57:04 13:57:04 [id number] [facility] 2022-03-22 2022-03-22 Outpatient [facility] 16:55:48 16:55:48 [id number] [facility] 2022-03-08 2022-03-08 Outpatient [facility] 14:40:04 14:40:04 [id number] [facility] 2022-03-04 2022-03-04 Outpatient [facility] 11:01:10 11:01:10 [id number] [facility] 2022-02-18 2022-02-18 Outpatient [facility]FA [id number] [facility] 09:00:08 09:00:08 [id number] [facility] 2022-02-04 2022-02-04 Outpatient [facility] [id number] [facility] 10:49:39 10:49:39 [id number] [facility] Results This patient has no known results.
[2022-10-08] MEDS ORDERED: DIPHENHYDRAMINE 25 MG TAB/CAP ONE (01:20)
[2022-10-08] MEDS ORDERED: BUPIVACAINE 0.5% PF 10 ML VIAL ONE (01:20)
[2022-10-08] MEDS ORDERED: ACETAMINOPHEN 500 MG TAB ONE (01:20)
--- NOTE | 2022-10-08 03:36 | EDPHYS ---
Physician Documentation [facility] Name: Madiha Breaux Age: 87 yrs Sex: Female : 1935 Arrival Date: 10/08/2022 Time: 00:50 Bed 6 Private MD: ED Physician Gallo Clay HPI: 10/08 00:57 This 87 yrs old Female presents to ER via Unassigned with complaints of fall sp4 at home, facial injury. 03:25 87-year-old female presents with acute fall at home. Patient went to the bathroom and sp4 stumbled accidentally fell down striking the left side of her face on the floor. Patient sustained laceration to the left lateral eyebrow also abrasion small laceration to the left cheek.. Patient denied LOC, denied any other injury. . Historical: - Allergies: 00:59 Codeine; lg3 00:59 Fentanyl; lg3 00:59 Lidocaine; lg3 00:59 Meperidine; lg3 00:59 Morphine; lg3 00:59 PENICILLINS; lg3 00:59 Sulfa (Sulfonamide Antibiotics); lg3 00:59 Demerol; lg3 00:59 lamital; lg3 00:59 Gleason; lg3 00:59 PORK/PORCINE PRODUCT DERIVATIVES; lg3 - Home Meds: 01:02 Eliquis oral [Active]; lg3 - Immunization history:: Adult Immunizations up to date. - Social history:: Smoking status: Patient denies any tobacco usage or history of. Patient/guardian denies using alcohol, street drugs. - Family history:: not pertinent. ROS: 03:25 Constitutional: Negative for fever, chills, and weight loss, Skin: Positive facial sp4 contusion left eyebrow laceration positive left cheek laceration 03:25 All other systems are negative. Exam: 03:25 Constitutional: This is a well developed, well nourished patient who is awake, alert, sp4 and in no acute distress. Patient is frail elderly female Head/Face: Normocephalic, left lateral eyebrow laceration there is roughly vertical orientation, 3 cm long, there is also left cheek abrasion and small 1 cm laceration. Eyes: Pupils equal round and reactive to light, extra-ocular motions intact. Lids and lashes normal. Conjunctiva and sclera are not injected. Cornea within normal limits. Periorbital areas with no swelling, redness, or edema. ENT: Nares patent. No nasal discharge, no septal abnormalities noted. Tympanic membranes are normal and external auditory canals are clear. Oropharynx with no redness, swelling, or masses, exudates, or evidence of obstruction, uvula midline. Mucous membranes moist. Neck: Trachea midline, no thyromegaly or masses palpated, and no cervical lymphadenopathy. Supple, full range of motion without nuchal rigidity, or vertebral point tenderness. Chest/axilla: Normal chest wall appearance and motion. Nontender with no deformity. No lesions are appreciated. Cardiovascular: Regular rate and rhythm with a normal S1 and S2. No gallops, murmurs, or rubs. Normal PMI, no JVD. No pulse deficits. Respiratory: Lungs have equal breath sounds bilaterally, clear to auscultation and percussion. No rales, rhonchi or wheezes noted. No increased work of breathing, no retractions or nasal flaring. Abdomen/GI: Soft, non-tender, with normal bowel sounds. No distension or tympany. No guarding or rebound. No evidence of tenderness throughout. Back: No spinal tenderness. No costovertebral tenderness. Skin: Warm, dry with normal turgor. Normal color with no rashes, no lesions, and no evidence of cellulitis. MS/ Extremity: Pulses equal, no cyanosis. Neurovascular intact. Full, normal range of motion. Neuro: Awake and alert, GCS 15, oriented to person, place, time, and situation. Cranial nerves II-XII grossly intact. Motor strength 5/5 in all extremities. Sensory grossly intact. Psych: Awake, alert, with orientation to person, place and time. Behavior, mood, and affect are within normal limits 03:32 ECG was reviewed by the Attending Physician. EKG. 0100 reveals atrial flutter at the sp4 rate of 85, left axis deviation, low voltage QRS, no ST elevation or depression. Vital Signs: 00:57 BP 118 / 84; Pulse 86; Resp 24 S; Temp 98.2(O); Pulse Ox 98% on 2 lpm NC; Weight 49.9 lg3 kg (M); Height 5 ft. 0 in. (R); 01:52 BP 178 / 77; Pulse 82; Resp 19 S; Pulse Ox 100% on 2 lpm NC; lg3 03:24 BP 155 / 71; Pulse 76; Resp 21; Pulse Ox 96% ; vc1 00:57 Body Mass Index 21.48 (49.90 kg, 152.4 cm) lg3 Laceration: 03:25 Wound Repair of 3cm ( 1.2in ) subcutaneous laceration to outer aspect of left eyebrow, sp4 left lateral eyebrow laceration 3 cm long. Irregularly shaped.. Minimal bleeding noted.. Vertical orientation. Distal neuro/vascular/tendon intact. Anesthesia: Wound infiltrated with 8 mls of Sensorcaine. Wound prep: Moderate cleansing by me, Copious irrigation. Skin closed with 8 5-0 Prolene using interrupted sutures and sterile technique. Dressed with left to air . Patient tolerated well. 03:25 Wound Repair of 1cm ( 0.4in ) subcutaneous laceration to left cheek. Linear shaped.. sp4 Minimal bleeding noted.. Distal neuro/vascular/tendon intact. Anesthesia: Wound infiltrated with 3 mls of Sensorcaine . Wound prep: Moderate cleansing by me, Copious irrigation. Skin closed with 3 5-0 Prolene using interrupted sutures and sterile technique. Dressed with Neosporin. Patient tolerated well. MDM: 00:58 Patient medically screened. sp4 02:29 ED course: CT head - COMPARISON: 08/19/2021. FINDINGS: Multiple transaxial tomograms of sp4 the brain were obtained from the base of the skull to the vertex without contrast. 2-D multiplanar reformats and the coronal and sagittal plane were performed and reviewed. This exam was performed according to our departmental dose-optimization protocol, which includes automated exposure control, adjustment of the mA and/or kV according to patient size and/or use of iterative reconstruction technique. Brain parenchyma demonstrate mild prominence of the sulci and gyri are corresponding to mild cerebral and cerebellar atrophy the lytic the. There is no midline shift and/or mass effect. There is no evidence for acute intracranial hemorrhage. Lateral ventricles and cisterns displace normal appearance. No intra or extra axial fluid collections were seen. The calvarium is intact with no evidence for fracture. The visualized portions of the paranasal sinuses and orbits demonstrate to be clear. IMPRESSION: No acute intracranial hemorrhage identified. Mild brain atrophy. Electronically signed by: Yimi Polanco MD 10/08/2022 . ED course: CT is negative . 03:32 Differential Diagnosis Acute fall, head injury, closed head injury, laceration, sp4 abrasion, contusion, hematoma. Data reviewed: vital signs, nurses notes, EKG, radiologic studies, CT scan. 03:32 Consideration of Admission/Observation Escalation of care including sp4 admission/observation considered. ED course: CT brain is negative at this time, is no sign of intracranial bleeding, laceration repaired, patient is stable for discharge home. 10/08 00:58 Order name: CT Head C Spine sp4 10/08 00:58 Order name: Dressing - Wound; Complete Time: 01:57 sp4 10/08 00:58 Order name: Gloves, Sterile; Complete Time: :57 sp4 10/08 00:58 Order name: Setup Suture Tray; Complete Time: 01:58 sp4 EC:32 Rate is 85 beats/min. Rhythm is irregularly irregular, A flutter. Left axis deviation sp4 noted. QRS interval is normal. QT interval is normal. No ST changes noted. Clinical impression: No evidence of ischemia. Interpreted by me. Administered Medications: 01:10 Drug: diphenhydrAMINE PO 25 mg Route: PO; lg3 01:58 Follow up: Response: No adverse reaction lg3 01:12 Drug: Acetaminophen PO 500 mg Route: PO; vc1 01:58 Follow up: Response: No adverse reaction lg3 01:26 Not Given (Other Intervention Used): Lidocaine Infiltration (1 %) 20 ml 20 ml lg3 Infiltration once; to bedside 04:06 Drug: Bupivacaine Infiltration (0.5 %) 10 ml {Note: Dr. Aaron.} Volume: 10 ml; pf1 Route: Infiltration; 04:06 Drug: [id number]-Ygetzegedi-[id number] Topical Ointment 1 application Route: Topical; pf1 Site: wound; Disposition Summary: 10/08/22 03:35 Discharge Ordered Location: Home sp4 Problem: new sp4 Symptoms: have improved sp4 Condition: Stable sp4 Diagnosis - Acute fall at home, left facial contusion, closed head injury, left lateral eyebrow sp4 laceration, left cheek laceration, left cheek abrasion Followup: sp4 - With: Private Physician - When: 10 - 14 days - Reason: Recheck today's complaints Discharge Instructions: - Discharge Summary Sheet sp4 - Facial Laceration, [id number] sp4 Forms: - Patient Portal Instructions sp4 - Leadership Thank You Letter sp4 Prescriptions: - Ibuprofen 600 mg Oral Tablet - take 1 tablet by ORAL route every 6 hours As needed take with food; 30 tablet; sp4 Refills: 0, Product Selection Permitted Signatures: Dispatcher [employer] EDMarce Salomon RN RN lg3 Destini Bowie RN RN 1 Ariela Thrasher RN RN pf1 Gallo Clay MD MD sp4 Corrections: (The following items were deleted from the chart) 01:02 00:59 Allergies: Hydrocodone-Acetaminophen; lg3 lg3
--- NOTE | 2022-10-08 03:36 | ER ---
Nurse's Notes [facility] Name: Madiha Breaux Age: 87 yrs Sex: Female : 1935 Arrival Date: 10/08/2022 Time: 00:50 Bed 6 Private MD: Diagnosis: Acute fall at home, left facial contusion, closed head injury, left lateral eyebrow laceration, left cheek laceration, left cheek abrasion Presentation: 10/08 00:57 Chief complaint: EMS states: fell off commode landing on face. laceration to left upper lg3 eyebrow and abrasion to left cheek. denies loc. complaints of headache. Coronavirus screen: Client denies travel out of the [place] in the last 14 days. At this time, the client does not indicate any symptoms associated with coronavirus-19. Ebola Screen: No symptoms or risks identified at this time. Initial Sepsis Screen: Does the patient meet any 2 criteria? No. Patient's initial sepsis screen is negative. Does the patient have a suspected source of infection? No. Patient's initial sepsis screen is negative. Risk Assessment: Do you want to hurt yourself or someone else? Patient reports no desire to harm self or others. Onset of symptoms was October 08, 2022. 00:57 Method Of Arrival: EMS: [place] [id number] 00:57 Acuity: DAMIR 3 lg3 Triage Assessment: 01:02 General: Appears in no apparent distress. comfortable, Behavior is calm, cooperative. lg3 Pain: Complains of pain in head. EENT: No deficits noted. No signs and/or symptoms were reported regarding the EENT system. Neuro: No deficits noted. Vang Agitation-Sedation Scale (RASS): 0 - Alert and Calm Level of Consciousness is awake, alert, obeys commands, Oriented to person, place, time, situation, Reports headache. Cardiovascular: No deficits noted. Denies chest pain, shortness of breath, Capillary refill < 3 seconds Clubbing of nail beds is absent JVD is absent Patient's skin is warm and dry. Rhythm is atrial flutter. Respiratory: No deficits noted. Airway is patent Respiratory effort is even, unlabored, Respiratory pattern is regular, tachypnea. GI: No deficits noted. No signs and/or symptoms were reported involving the gastrointestinal system. Abdomen is flat, non-distended. : No deficits noted. No signs and/or symptoms were reported regarding the genitourinary system. Derm: Skin is intact, is fragile, is thin, Skin is dry, Skin is normal, Skin temperature is warm Wound noted left supraorbital ridge. Musculoskeletal: No deficits noted. No signs and/or symptoms reported regarding the musculoskeletal system. Circulation, motion, and sensation intact. Range of motion: intact in all extremities. Historical: - Allergies: 00:59 Codeine; lg3 00:59 Fentanyl; lg3 00:59 Lidocaine; lg3 00:59 Meperidine; lg3 00:59 Morphine; lg3 00:59 PENICILLINS; lg3 00:59 Sulfa (Sulfonamide Antibiotics); lg3 00:59 Demerol; lg3 00:59 lamital; lg3 00:59 [place]; lg3 00:59 PORK/PORCINE PRODUCT DERIVATIVES; lg3 - Home Meds: 01:02 Eliquis oral [Active]; lg3 - Immunization history:: Adult Immunizations up to date. - Social history:: Smoking status: Patient denies any tobacco usage or history of. Patient/guardian denies using alcohol, street drugs. - Family history:: not pertinent. Screenin:09 [facility] ED Fall Risk Assessment (Adult) History of falling in the last 3 months, lg3 including since admission Yes- single mechanical fall (1 pt) Confusion or Disorientation No (0 pts) Intoxicated or Sedated No (0 pts) Impaired Gait Yes (1 pt) Mobility Assist Device Used Yes (1 pt) Altered Elimination No (0 pt) Score/Fall Risk Level 3 or more points = High Risk Oriented to surroundings, Maintained a safe environment, Educated pt \T\ family on fall prevention, incl call for assistance when getting out of bed, Assessed \T\ reinforced patient's understanding of fall precautions, Provided non-skid footwear, Utilized family, sitter, or virtual assembler equipment as indicated. Abuse screen: Denies threats or abuse. Denies injuries from another. Nutritional screening: No deficits noted. Tuberculosis screening: No symptoms or risk factors identified. Assessment: 01:08 General: see triage assessment . lg3 01:52 Reassessment: Patient appears in no apparent distress at this time. No changes from lg3 previously documented assessment. Patient and/or family updated on plan of care and expected duration. Pain level reassessed. Patient is alert, oriented x 3, equal unlabored respirations, skin warm/dry/pink. Vital Signs: 00:57 BP 118 / 84; Pulse 86; Resp 24 S; Temp 98.2(O); Pulse Ox 98% on 2 lpm NC; Weight 49.9 lg3 kg (M); Height 5 ft. 0 in. (R); 01:52 BP 178 / 77; Pulse 82; Resp 19 S; Pulse Ox 100% on 2 lpm NC; lg3 03:24 BP 155 / 71; Pulse 76; Resp 21; Pulse Ox 96% ; vc1 00:57 Body Mass Index 21.48 (49.90 kg, 152.4 cm) lg3 ED Course: 00:51 Patient arrived in ED. sb4 00:57 Gallo Clay MD is Attending Physician. sp4 00:57 Marce Narvaez, RN is Primary Nurse. lg3 00:59 Triage completed. lg3 01:02 Arm band placed on right wrist. lg3 01:09 Patient has correct armband on for positive identification. Placed in gown. Bed in low lg3 position. Call light in reach. Side rails up X2. Client placed on continuous cardiac and pulse oximetry monitoring. NIBP monitoring applied. vet assistant on. Door closed. Noise minimized. Warm blanket given. Family accompanied patient. 01:09 Maintain EMS IV. Dressing intact. Good blood return noted. Site clean \T\ dry. Gauge \T\ lg 3 site: 20 LFA. Oxygen administration via nasal cannula \T\ 2L/min. 01:30 CT Head C Spine In Process Unspecified. EDMS 04:29 No provider procedures requiring assistance completed. IV discontinued, intact, vc1 bleeding controlled, No redness/swelling at site. Pressure dressing applied. Administered Medications: 01:10 Drug: diphenhydrAMINE PO 25 mg Route: PO; lg3 01:58 Follow up: Response: No adverse reaction lg3 01:12 Drug: Acetaminophen PO 500 mg Route: PO; vc1 01:58 Follow up: Response: No adverse reaction lg3 01:26 Not Given (Other Intervention Used): Lidocaine Infiltration (1 %) 20 ml 20 ml lg3 Infiltration once; to bedside 04:06 Drug: Bupivacaine Infiltration (0.5 %) 10 ml {Note: Dr. Aaron.} Volume: 10 ml; pf1 Route: Infiltration; 04:06 Drug: Fkapeqbl-Jaqsbhtpnm-Xczseyxzv Topical Ointment 1 application Route: Topical; pf1 Site: wound; Medication: 04:29 VIS not applicable for this client. vc1 Outcome: 03:35 Discharge ordered by . sp4 04:29 Discharged to home ambulatory. vc1 04:29 Condition: good 04:29 Discharge instructions given to patient, Instructed on discharge instructions, follow up and referral plans. medication usage, Demonstrated understanding of instructions, follow-up care, medications, Prescriptions given X 1. 04:30 Patient left the ED. vc1 Signatures: Dispatcher [employer] EDMS Marce Narvaez RN RN lg3 Destini Bowie RN RN vc1 Zenaida Canales, PA-C PA-Ariela Newsome RN RN pf1 Gallo Clay MD MD sp4 Corrections: (The following items were deleted from the chart) 01:02 00:59 Allergies: Hydrocodone-Acetaminophen; lg3 lg3
[2022-10-08 04:35] VITALS: TEMP 98.2
[2022-10-08 04:37] VITALS: BP 155/71; O2SAT 96
--- NOTE | 2022-10-08 15:21 | EKG ---
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
--- NOTE | 2022-10-08 18:23 | RAD REPORT ---
EXAM DESCRIPTION: CT - Head C Spine Mpr Wo Con - 10/08/2022 5:24 am CLINICAL HISTORY: 87 years, Female, fall , acute , head injury COMPARISON: 08/19/2021. FINDINGS: Multiple transaxial tomograms of the brain were obtained from the base of the skull to the vertex without contrast. 2-D multiplanar reformats and the coronal and sagittal plane were performed and reviewed. This exam was performed according to our departmental dose-optimization protocol, which includes auto mated exposure control, adjustment of the mA and/or kV according to patient size and/or use of iterat stacy reconstruction technique. Brain parenchyma demonstrate mild prominence of the sulci and gyri are corresponding to mild cerebral and cerebellar atrophy the lytic the. There is no midline shift and/or mass effect. There is no evid ence for acute intracranial hemorrhage. Lateral ventricles and cisterns displace normal appearance. No intra or extra axial fluid collections were seen. The calvarium is intact with no evidence for fracture. The visualized portions of the paranasal sinuses and orbits demonstrate to be clear. IMPRESSION: No acute intracranial hemorrhage identified. Mild brain atrophy. Electronically signed by: Yimi Polanco MD 10/08/2022 1:42 AM CDT Due to temporary technical issues with the PACS/Fluency reporting system, reports are being signed by the in house radiologists without review as a courtesy to insure prompt reporting. The interpreting radiologist is fully responsible for the content of the report.
== END 2022-10-08 04:30 | disposition home or self-care (01) ==
LOC: ER 00:50
PROC: 0HQ1XZZ Repair Face Skin, External Approach (ICD-10-PCS; principal; 2022-10-08)
DX: S01.112A Laceration without foreign body of left eyelid and periocular area, initial encounter (principal); S01.412A Laceration without foreign body of left cheek and temporomandibular area, initial encounter; W18.30XA Fall on same level, unspecified, initial encounter; Y92.009 Unspecified place in unspecified non-institutional (private) residence as the place of occurrence of the external cause; Z88.0 Allergy status to penicillin; Z88.2 Allergy status to sulfonamides; Z88.5 Allergy status to narcotic agent; Z88.6 Allergy status to analgesic agent; Z88.8 Allergy status to other drugs, medicaments and biological substances; Z91.014 Allergy to mammalian meats
CPT/HCPCS: 70450; 72125; 93005; 99285

== ENCOUNTER 2022-10-14 11:40 | Inpatient (IN) | payer OTHER ==
[2022-10-14 12:36] LABS: Absolute Lymphocytes (CBC) 0.9 K/uL (0.7-4.9); Hematocrit 33.7 % (36.0-45.0); Lymphocytes % 15.5 % (15.3-44.8); MCV 91.6 fL (80-100); MPV 7.8 fL (7.6-11.3); Platelets 203 thou/uL (152-406); RBC Red Blood Cell Count 3.68 M/uL (3.86-4.86)
[2022-10-14 12:54] LABS: Albumin 2.9 g/dL (3.4-5.0); Bilirubin Total 0.6 mg/dL (0.2-1.0); Potassium 3.3 mEq/L (3.5-5.1); Protein, Total 6.4 g/dL (6.4-8.2)
--- OUTSIDE RECORDS SUMMARY | 2022-10-14 12:57 | XMS REPORT | Continuity of Care Document ---
:1935 Author Organization [facility] t Address [address] [place] [address] Care Team Providers Name Role Phone DENNIS HARRIS Primary Care Physician Unavailable LAWANDA ALCARAZ Attending Clinician Unavailable LAWANDA ALCARAZ Attending Clinician Unavailable Gissel Ortega Cardiology Attending Clinician Unavailable Lawanda Alcaraz DO Attending Clinician Doctor Unassigned, [place] Attending Clinician Unavailable Therapist, [facility] Respiratory Attending Clinician Unavailable Una Hall MD Attending Clinician UNA HALL Attending Clinician Unavailable GISSELL HARDIN Attending Clinician Unavailable Gissell Hardin MD Attending Clinician ALTAF QUEVEDO Attending Clinician Unavailable ALTAF QUEVEDO Attending Clinician Unavailable Katya Baum RN Attending Clinician Unavailable Brittanie Sepulveda Attending Clinician Padma Abraham MD Attending Clinician MAO Attending Clinician Unavailable Tejinder Toribio Admitting Clinician Unavailable GISSELL HARDIN Admitting Clinician Unavailable Gissell Hardin MD Admitting Clinician ALTAF QUEVEDO Admitting Clinician Unavailable Mufti MCCABE, Padma Admitting Clinician MAO Admitting Clinician Unavailable Payers [...] ents Source Name Type Date Date Clinician lidocain DA Active U [facility]-UN[facility] A e 8-13 [place] 00:00: d [facility] Penicill DA Active [place] HIVES [facility] ins 8-10 [place] 00:00: d [facility] Sulfa DA Active MO MAKES HER [facility] (Sulfona PASS OUT 8-10 [place] 00:00: d Antibiot 00 Medical [facility]) [place] morphine DA Active DC HIVES [facility] 8-10 [place] 00:00: d 00 [facility] codeine DA Active [place] VOMITING 2022- [facility] 8-10 [place] 00:00: d 00 [facility] hydrocod DA Active [place] VOMITING [facility] one 8-10 [place] 00:00: d 00 [facility] fentanyl DA Active SV COMA 2022- [facility] 8-10 [place] 00:00: d 00 [facility] meperidi DA Active MO THROW UP [facility] ne 8-10 [place] 00:00: d 00 [facility] PORK DRUG Active Hives Univers DERIVED INGREDI 10-03 ity of (PORCINE 00:00: [place] ) 00 Medical Branch Pork Propensi Active Hives Eating Univers Derived ty to 10-03 pork gave ity of (Porcine adverse 00:[place] reaction 00 as a Medical [place] Branch HYDROCOD DRUG Active N/V Univers ONE INGREDI 10-02 ity of 00:00: [place] 00 Medical [place] FENTANYL DRUG Active Other-Cmnt Univ ers INGREDI [...] ity of adverse 00:00: coma" [place] reaction Medical s Branch Hydrocod Propensi Active Nausea Univer s one ty to and/or 10-02 ity of adverse Vomiting 00:00: [place] reaction 00 Medical s Branch Penicill Propensi Active Hives Univer s ins ty to 10-02 ity of adverse 00:00: [place] reaction Medical s Branch Sulfa Propensi Active Other [...] Univers INGREDI 8- ity of 00:00: [place] [facility] TRAMADOL DRUG Active Med N/V 2017-02 Univers INGREDI 0-30 ity of 00:00: [place] 00 Medical Branch Tramadol Propensi Active Nausea 2017-02 [place] Uni vers ty to and/or 0-30 tions ity of adverse Vomiting 00:00: [place] reaction 00 Medical s Branch NO KNOWN Drug Active Univers ALLERGIE Class ity of S [facility] Social History Social Habit Start Date Stop Date Quantity Comments Source History of tobacco Cigarette Smoker University of use [facility] Gender identity Universit y of [facility] Sexual orientation Univer sity of [facility] Exposure to 2022-04-04 2022-04-14 Not [facility] of SARS-CoV-2 (event) 00:00:00 12:01:00 [facility] Alcohol intake 2022-01-14 2022-01-14 Ex-drinker [facility] 00:00:00 00:00:00 (finding) [facility] History of Social 2022-01-13 2022-01-13 Univers ity of function 00:00:00 00:00:00 [facility] Tobacco use and 2022-01-08 2022-01-08 Smokeless Universit y of exposure 00:00:00 00:00:00 tobacco non-user [facility] dical Branch History SDOH Food 2021-10-06 2021-10-06 1 Univers ity of Worry 00:00:00 00:00:00 [place] [facility] History SDOH Food 2021-10-06 2021-10-06 1 Univers ity of Scarcity 00:00:00 00:00:00 [place] [facility] History [facility] 2021-10-06 2021-10-06 2 University o f Transport Med 00:00:00 00:00:00 [place] Medic al Branch History [facility] 2021-10-06 2021-10-06 2 University o f Transport Non-Med 00:00:00 00:00:00 [facility] edical [place] Sex Assigned At [birth year] Universit y of 00:00:00 00:00:00 [facility] Smoking Status Start Date Stop Date Source Never smoked tobacco [facility] Ex-smoker 2021-10-02 00:00:00 2021-10-02 00:00:00 Universi [facility] Medications Ordered Filled Start Stop Current Ordering Indication Dosage Frequency Signature Comments Components Source Medication Medication Date Date Medication? Clinician (SIG) Name Name albuterol Yes [id number] 2{puff} Inhale 2 Univers 90 7-25 Puffs ity of mcg/actuati 00:00: every 6 Jeremías as on inhaler 00 (six) Medical hours as Branch needed for Wheezing or Shortness of Breath. albuterol Yes [id number] 2{puff} Inhale 2 Univers 90 7-25 Puffs ity of mcg/actuati 00:00: every 6 Jerem[place] as on inhaler 00 (six) Medical hours as Branch needed for Wheezing or Shortness of Breath. water for 2021-02- No PRN, Univers irrigation 03-16- Starting ity of irrigation 16:37: 17:56 on [...] Intra-op lactated 2021-02- No 1000mL at 42 [facility] rs ringers IV 03-16 12-07 mL/hr, ity of infusion 16:15: 16:10 1,000 mL, Jeremías as 1,000 mL 00 :00 IV Medical Infusion, Branch ONCE, 1 dose, On Tue01/13/22 at 1015, Routine, DSU Pre-op lactated 2021-02- No 1000mL at 42 [facility] rs ringers IV 2 12-07 mL/hr, ity of infusion 16:15: 16:10 1,000 mL, Jeremías as 1,000 mL 00 :00 IV Medical Infusion, Branch ONCE, 1 dose, On Tue01/13/22 at 1015, Routine, DSU Pre-op zolpidem 5 2021-02 Yes 5mg Take 5 mg Un aziza mg tablet 2-07 by mouth ity of 13:24: at [place] [address] bedtime. Medical Branch brexpiprazo 2021-02 Yes 1mg Take 1 mg U nivers le 2-07 by mouth ity of (REXULTI) 1 13:24: [place]. [place] mg Tab 06 [place] Branch hydrALAZINE 2021-02 Yes 25mg Take 25 mg Univers 25 mg 2-07 by mouth ity of tablet 13:24: in the [place] [address] morning Medical and 25 mg Branch in the evening. FLUoxetine 2021-02 Yes 20mg Take 20 mg U nivers 20 mg 2-07 by mouth ity of capsule 13:24: in the [place] [address] morning. Medical Branch atorvastati 2021-02 Yes 10mg Take 10 mg Univers n 10 mg 2-07 by mouth ity of tablet 13:24: at [place] [address] bedtime. Medical Branch albuterol 2021-02 Yes 1{ampul [...] mouth ity of tablet 13:24: in the [place] 06 morning. Medical Branch carvediloL 2021-02 Yes 3.125mg Take 3.125 Univers 3.125 mg 2-07 mg by ity of tablet 13:24: mouth in [place] 06 the Medical morning Branch and 3.125 mg in the evening. Take with meals. furosemide 2021-02 Yes 10mg Take 10 mg U nivers 20 mg 2-07 by mouth ity of tablet 13:24: every [place] [address] other day. Medical Branch apixaban 2021-02 Yes 2.5mg Take 2.5 Univ ers (ELIQUIS) 2-07 mg by ity of 2.5 mg 13:24: mouth in [place] tablet 06 the Medical morning Branch and 2.5 mg in the evening. zolpidem 5 2021-02 Yes 5mg Take 5 mg Un aziza mg tablet 2-07 by mouth ity of 13:24: at [place] [address] bedtime. Medical Branch brexpiprazo 2021-02 Yes 1mg Take 1 mg U nivers le 2-07 by mouth ity of (REXULTI) 1 13:24: [place]. [place] mg Tab Medical Branch hydrALAZINE 2021-02 Yes 25mg Take 25 mg Univers 25 mg 2-07 by mouth ity of tablet 13:24: in the [place] 06 morning Medical and 25 mg Branch in the evening. FLUoxetine 2021-02 Yes 20mg Take 20 mg U nivers 20 mg 2-07 by mouth ity of capsule 13:24: in the [place] 06 morning. Medical Branch atorvastati 2021-02 Yes 10mg Take 10 mg Univers n 10 mg 2-07 by mouth ity of tablet 13:24: at [place] [address] bedtime. Medical Branch albuterol 2021-02 Yes 1{ampul [...] mouth ity of tablet 13:24: in the [place] 06 morning. Medical Branch carvediloL 2021-02 Yes 3.125mg Take 3.125 Univers 3.125 mg 2-07 mg by ity of tablet 13:24: mouth in [place] 06 the Medical morning Branch and 3.125 mg in the evening. Take with meals. furosemide 2021-02 Yes 10mg Take 10 mg U nivers 20 mg 2-07 by mouth ity of tablet 13:24: every [place] [address] other day. Medical Branch apixaban 2021-02 Yes 2.5mg Take 2.5 Univ ers (ELIQUIS) 2-07 mg by ity of 2.5 mg 13:24: mouth in [place] tablet 06 the Medical morning Branch and 2.5 mg in the evening. zolpidem 5 2021-02 Yes 5mg Take 5 mg Un aziza mg tablet 2-07 by mouth ity of 13:24: at [place] [address] bedtime. Medical Branch brexpiprazo 2021-02 Yes 1mg Take 1 mg U nivers le 2-07 by mouth ity of (REXULTI) 1 13:24: [place]. [place] mg Tab Medical Branch hydrALAZINE 2021-02 Yes 25mg Take 25 mg Univers 25 mg 2-07 by mouth ity of tablet 13:24: in the [place] 06 morning Medical and 25 mg Branch in the evening. FLUoxetine 2021-02 Yes 20mg Take 20 mg U nivers 20 mg 2-07 by mouth ity of capsule 13:24: in the [place] 06 morning. Medical Branch atorvastati 2021-02 Yes 10mg Take 10 mg Univers n 10 mg 2-07 by mouth ity of tablet 13:24: at [place] [address] bedtime. Medical Branch albuterol 2021-02 Yes 1{ampul [...] mouth ity of tablet 13:24: in the [place] [address] morning. Medical Branch carvediloL 2021-02 Yes 3.125mg Take 3.125 Univers 3.125 mg 2-07 mg by ity of tablet 13:24: mouth in [place] 06 the Medical morning Branch and 3.125 mg in the evening. Take with meals. furosemide 2021-02 Yes 10mg Take 10 mg U nivers 20 mg 2-07 by mouth ity of tablet 13:24: every [place] [address] other day. Medical Branch apixaban 2021-02 Yes 2.5mg Take 2.5 Univ ers (ELIQUIS) 2-07 mg by ity of 2.5 mg 13:24: mouth in [place] [facility] 06 the Medical morning Branch and 2.5 mg in the evening. zolpidem 5 2021-02 Yes 5mg Take 5 mg Un aziza mg tablet 2-07 by mouth ity of 13:24: at [place] [address] bedtime. Medical Branch brexpiprazo 2021-02 Yes 1mg Take 1 mg U nivers le 2-07 by mouth ity of (REXULTI) 1 13:24: [place]. [place] mg Tab Medical Branch hydrALAZINE 2021-02 Yes 25mg Take 25 mg Univers 25 mg 2-07 by mouth ity of tablet 13:24: in the [place] 06 morning Medical and 25 mg Branch in the evening. FLUoxetine 2021-02 Yes 20mg Take 20 mg U nivers 20 mg 2-07 by mouth ity of capsule 13:24: in the [place] 06 morning. Medical Branch atorvastati 2021-02 Yes 10mg Take 10 mg Univers n 10 mg 2-07 by mouth ity of tablet 13:24: at [place] [address] bedtime. Medical Branch albuterol 2021-02 Yes 1{ampul [...] mouth ity of tablet 13:24: in the [place] [address] morning. Medical Branch carvediloL 2021-02 Yes 3.125mg Take 3.125 Univers 3.125 mg 2-07 mg by ity of tablet 13:24: mouth in [place] 06 the Medical morning Branch and 3.125 mg in the evening. Take with meals. furosemide 2021-02 Yes 10mg Take 10 mg U nivers 20 mg 2-07 by mouth ity of tablet 13:24: every [place] [address] other day. Medical Branch apixaban 2021-02 Yes 2.5mg Take 2.5 Univ ers (ELIQUIS) 2-07 mg by ity of 2.5 mg 13:24: mouth in [facility] 06 the Medical morning Branch and 2.5 mg in the evening. zolpidem 5 2021-02 Yes 5mg Take 5 mg Un aziza mg tablet 2-07 by mouth ity of 13:24: at [place] [address] bedtime. Medical Branch brexpiprazo 2021-02 Yes 1mg Take 1 mg U nivers le 2-07 by mouth ity of (REXULTI) 1 13:24: [place]. [place] mg Tab Medical Branch hydrALAZINE 2021-02 Yes 25mg Take 25 mg Univers 25 mg 2-07 by mouth ity of tablet 13:24: in the [place] [address] morning Medical and 25 mg Branch in the evening. FLUoxetine 2021-02 Yes 20mg Take 20 mg U nivers 20 mg 2-07 by mouth ity of capsule 13:24: in the [place] [address] morning. Medical Branch atorvastati 2021-02 Yes 10mg Take 10 mg Univers n 10 mg 2-07 by mouth ity of tablet 13:24: at [place] [address] bedtime. Medical Branch albuterol 2021-02 Yes 1{ampul Inhale 1 U nivers 0.63 mg/3 2-07 e} Ampule as ity o f mL 13:24: needed. [place] nebulizer 06 Medical [employer] Branch albuterol 2021-02 Yes 2{puff} Inhale 2 U nivers 90 2-07 Puffs as ity of mcg/actuati 13:24: needed. Jeremías as on inhaler 06 Medical Branch ARIPiprazol 2021-02 Yes 2mg Take 2 mg U nivers e 2 mg 2-07 by mouth ity of tablet 13:24: in the [place] [address] morning. Medical Branch carvediloL 2021-02 Yes 3.125mg Take 3.125 Univers 3.125 mg 2-07 mg by ity of tablet 13:24: mouth in [place] 06 the Medical morning Branch and 3.125 mg in the evening. Take with meals. furosemide 2021-02 Yes 10mg Take 10 mg U nivers 20 mg 2-07 by mouth ity of tablet 13:24: every [place] [address] other day. Medical Branch apixaban 2021-02 Yes 2.5mg Take 2.5 Univ ers (ELIQUIS) 2-07 mg by ity of 2.5 mg 13:24: mouth in [facility] 06 the Medical morning Branch and 2.5 mg in the evening. zolpidem 5 2021-02 Yes 5mg Take 5 mg Un aziza mg tablet 2-07 by mouth ity of 13:24: at [place] [address] bedtime. Medical Branch brexpiprazo 2021-02 Yes 1mg Take 1 mg U nivers le 2-07 by mouth ity of (REXULTI) 1 13:24: [place]. [place] mg Tab Medical Branch hydrALAZINE 2021-02 Yes 25mg Take 25 mg Univers 25 mg 2-07 by mouth ity of tablet 13:24: in the [place] [address] morning Medical and 25 mg Branch in the evening. FLUoxetine 2021-02 Yes 20mg Take 20 mg U nivers 20 mg 2-07 by mouth ity of capsule 13:24: in the [place] 06 morning. Medical Branch atorvastati 2021-02 Yes 10mg Take 10 mg Univers n 10 mg 2-07 by mouth ity of tablet 13:24: at [place] [address] bedtime. Medical Branch albuterol 2021-02 Yes 1{ampul Inhale 1 U nivers 0.63 mg/3 2-07 e} Ampule as ity o f mL 13:24: needed. [place] nebulizer 06 Medical [employer] Branch albuterol 2021-02 Yes 2{puff} Inhale 2 U nivers 90 2-07 Puffs as ity of mcg/actuati 13:24: needed. Jeremías as on inhaler Medical Branch ARIPiprazol 2021-02 Yes 2mg Take 2 mg U nivers e 2 mg 2-07 by mouth ity of tablet 13:24: in the [place] [address] morning. Medical Branch carvediloL 2021-02 Yes 3.125mg Take 3.125 Univers 3.125 mg 2-07 mg by ity of tablet 13:24: mouth in [place] the Medical morning Branch and 3.125 mg in the evening. Take with meals. furosemide 2021-02 Yes 10mg Take 10 mg U nivers 20 mg 2-07 by mouth ity of tablet 13:24: every [place] [address] other day. Medical Branch apixaban 2021-02 Yes 2.5mg Take 2.5 Univ ers (ELIQUIS) 2-07 mg by ity of 2.5 mg 13:24: mouth in [place] [address] the Medical morning Branch and 2.5 mg in the evening. zolpidem 5 2021-02 Yes 5mg Take 5 mg Un aziza mg tablet 2-07 by mouth ity of 13:24: at [place] [address] bedtime. Medical Branch brexpiprazo 2021-02 Yes 1mg Take 1 mg U nivers le 2-07 by mouth ity of (REXULTI) 1 13:24: [place]. [place] mg Tab Medical Branch hydrALAZINE 2021-02 Yes 25mg Take 25 mg Univers 25 mg 2-07 by mouth ity of tablet 13:24: in the [place] [address] morning Medical and 25 mg Branch in the evening. FLUoxetine 2021-02 Yes 20mg Take 20 mg U nivers 20 mg 2-07 by mouth ity of capsule 13:24: in the [place] [address] morning. Medical Branch atorvastati 2021-02 Yes 10mg Take 10 mg Univers n 10 mg 2-07 by mouth ity of tablet 13:24: at [place] [address] bedtime. Medical Branch albuterol 2021-02 Yes 1{ampul Inhale 1 U nivers 0.63 mg/3 2-07 e} Ampule as ity o f mL 13:24: needed. [place] nebulizer 06 Medical [employer] Branch albuterol 2021-02 Yes 2{puff} Inhale 2 U nivers 90 2-07 Puffs as ity of mcg/actuati 13:24: needed. Jeremías as on inhaler Medical Branch ARIPiprazol 2021-02 Yes 2mg Take 2 mg U nivers e 2 mg 2-07 by mouth ity of tablet 13:24: in the [place] [address] morning. Medical Branch carvediloL 2021-02 Yes 3.125mg Take 3.125 Univers 3.125 mg 2-07 mg by ity of tablet 13:24: mouth in [place] 06 the Medical morning Branch and 3.125 mg in the evening. Take with meals. furosemide 2021-02 Yes 10mg Take 10 mg U nivers 20 mg 2-07 by mouth ity of tablet 13:24: every [place] [address] other day. Medical Branch apixaban 2021-02 Yes 2.5mg Take 2.5 Univ ers (ELIQUIS) 2-07 mg by ity of 2.5 mg 13:24: mouth in [facility] 06 the Medical morning Branch and 2.5 mg in the evening. zolpidem 5 2021-02 Yes 5mg Take 5 mg Un aziza mg tablet 2-07 by mouth ity of 13:24: at [place] [address] bedtime. Medical Branch brexpiprazo 2021-02 Yes 1mg Take 1 mg U nivers le 2-07 by mouth ity of (REXULTI) 1 13:24: [place]. [place] mg Tab Medical Branch hydrALAZINE 2021-02 Yes 25mg Take 25 mg Univers 25 mg 2-07 by mouth ity of tablet 13:24: in the [place] 06 morning Medical and 25 mg Branch in the evening. FLUoxetine 2021-02 Yes 20mg Take 20 mg U nivers 20 mg 2-07 by mouth ity of capsule 13:24: in the [place] 06 morning. Medical Branch atorvastati 2021-02 Yes 10mg Take 10 mg Univers n 10 mg 2-07 by mouth ity of tablet 13:24: at [place] [address] bedtime. Medical Branch albuterol 2021-02 Yes 1{ampul Inhale 1 U nivers 0.63 mg/3 2-07 e} Ampule as ity o f mL 13:24: needed. [place] nebulizer 06 Medical [employer] Branch albuterol 2021-02 Yes 2{puff} Inhale 2 U nivers 90 2-07 Puffs as ity of mcg/actuati 13:24: needed. Jeremías as on inhaler Medical Branch ARIPiprazol 2021-02 Yes 2mg Take 2 mg U nivers e 2 mg 2-07 by mouth ity of tablet 13:24: in the [place] [address] morning. Medical Branch carvediloL 2021-02 Yes 3.125mg Take 3.125 Univers 3.125 mg 2-07 mg by ity of tablet 13:24: mouth in [place] 06 the Medical morning Branch and 3.125 mg in the evening. Take with meals. furosemide 2021-02 Yes 10mg Take 10 mg U nivers 20 mg 2-07 by mouth ity of tablet 13:24: every [place] [address] other day. Medical Branch apixaban 2021-02 Yes 2.5mg Take 2.5 Univ ers (ELIQUIS) 2-07 mg by ity of 2.5 mg 13:24: mouth in [facility] 06 the Medical morning Branch and 2.5 mg in the evening. zolpidem 5 2021-02 Yes 5mg Take 5 mg Un aziza mg tablet 2-07 by mouth ity of 13:24: at [place] [address] bedtime. Medical Branch brexpiprazo 2021-02 Yes 1mg Take 1 mg U nivers le 2-07 by mouth ity of (REXULTI) 1 13:24: [place]. [place] mg Tab Medical Branch hydrALAZINE 2021-02 Yes 25mg Take 25 mg Univers 25 mg 2-07 by mouth ity of tablet 13:24: in the [place] [address] morning Medical and 25 mg Branch in the evening. FLUoxetine 2021-02 Yes 20mg Take 20 mg U nivers 20 mg 2-07 by mouth ity of capsule 13:24: in the [place] [address] morning. Medical Branch atorvastati 2021-02 Yes 10mg Take 10 mg Univers n 10 mg 2-07 by mouth ity of tablet 13:24: at [place] [address] bedtime. Medical Branch albuterol 2021-02 Yes 1{ampul Inhale 1 U nivers 0.63 mg/3 2-07 e} Ampule as ity o f mL 13:24: needed. [place] nebulizer 06 [facility] Branch albuterol 2021-02 Yes 2{puff} Inhale 2 U nivers 90 2-07 Puffs as ity of mcg/actuati 13:24: needed. Jeremías as on inhaler 06 Medical Branch ARIPiprazol 2021-02 Yes 2mg Take 2 mg U nivers e 2 mg 2-07 by mouth ity of tablet 13:24: in the [place] 06 morning. Medical Branch carvediloL 2021-02 Yes 3.125mg Take 3.125 Univers 3.125 mg 2-07 mg by ity of tablet 13:24: mouth in [place] 06 the Medical morning Branch and 3.125 mg in the evening. Take with meals. furosemide 2021-02 Yes 10mg Take 10 mg U nivers 20 mg 2-07 by mouth ity of tablet 13:24: every [place] [address] other day. Medical Branch apixaban 2021-02 Yes 2.5mg Take 2.5 Univ ers (ELIQUIS) 2-07 mg by ity of 2.5 mg 13:24: mouth in [facility] 06 the Medical morning Branch and 2.5 mg in the evening. methylpredn 2021- No 125mg 125 mg, U nivers isolone sod 10-16 Intravenou i ty of succ 02:47: 02:51 s, ONCE, 1 [place] (SOLU-MEDRO 00 :00 dose, On Medi carlyle L) [facility] 10/15/21 Branch injection at 2200, 2 125 mg mL acetaminoph 2021- No 1000mg 1,000 mg, Univers en 10-16 Oral, ONCE ity of (TYLENOL) 01:46: 02:07 NOW, 1 [place] tablet 00 :00 dose, On Medical 1,000 mg [facility] 10/15/21 Bran h at 2100, Routine albuterol 2021- No [...] 10/15/21 at 2045, HIEU nirmatrelvi 2021- No [id number] 2{tbl} Take 2 Univers r-ritonavir 10-15 tablets by i ty of (PAXLOVID, 00:00: 04:59 [place] in [place] EUA,) 00 :00 the Medical 150-100 mg morning Branch tablet and 2 tablets in the evening. Do all this for 5 days. bebtelovima 2021- No [id number] 175mg Inject 2 Univers b, No 10-15 mL as ity of Charge, 175 00:00: 04:59 directed [place] mg/2 mL 00 :00 once now Medical (87.5 for 1 Branch mg/mL) Soln dose. zolpidem Yes 5mg Take 5 mg Univ ers (AMBIEN) 5 8-29 by mouth ity o f mg tablet 17:52: at [place] [address] bedtime. Medical Branch brexpiprazo Yes 1mg Take 1 mg U nivers le 8-29 by mouth ity of (REXULTI) 1 17:52: [place]. [place] mg Tab 08 Medical Branch hydrALAZINE 0 Yes 25mg Take 25 mg Univers 25 mg 8-29 by mouth ity of tablet 17:52: in the [place] [address] morning Medical and 25 mg Branch in the evening. FLUoxetine 0 Yes 10mg Take 10 mg U nivers 10 mg 8-29 by mouth ity of capsule 17:52: in the [place] [address] morning. Medical Branch atorvastati 0 Yes 10mg Take 10 mg Univers n (LIPITOR) 8-29 by mouth ity of 10 mg 17:52: at [facility] 08 bedtime. Medical Branch zolpidem 0 Yes 5mg Take 5 mg Univ ers (AMBIEN) 5 8-29 by mouth ity o f mg tablet 17:52: at [place] 08 bedtime. Medical Branch brexpiprazo 0 Yes [...] mouth ity of capsule 17:52: in the [place] 08 morning. Medical Branch atorvastati 0 Yes 10mg Take 10 mg Univers n (LIPITOR) 8-29 by mouth ity of 10 mg 17:52: at [facility] 08 bedtime. Medical Branch zolpidem 0 Yes 5mg Take 5 mg Univ ers (AMBIEN) 5 8-29 by mouth ity o f mg tablet 17:52: at [place] [address] bedtime. Medical Branch brexpiprazo 0 Yes 1mg Take 1 mg U nivers le 8-29 by mouth ity of (REXULTI) 1 17:52: [place]. [place] mg Tab Medical Branch hydrALAZINE 0 Yes 25mg Take 25 mg Univers 25 mg 8-29 by mouth ity of tablet 17:52: in the [place] 08 morning Medical and 25 mg Branch in the evening. FLUoxetine 2021-0 Yes 10mg Take 10 mg U nivers 10 mg 8-29 by mouth ity of capsule 17:52: in the [place] 08 morning. Medical Branch atorvastati 0 Yes 10mg Take 10 mg Univers n (LIPITOR) 8-29 by mouth ity of 10 mg 17:52: at [place] tablet 08 bedtime. Medical Branch zolpidem 0 Yes 5mg Take 5 mg Univ ers (AMBIEN) 5 8-29 by mouth ity o f mg tablet 17:52: at [place] 08 bedtime. Medical Branch brexpiprazo 0 Yes 1mg Take 1 mg U nivers le 8-29 by mouth ity of (REXULTI) 1 17:52: [place]. [place] mg Tab 08 Medical Branch hydrALAZINE 2022-0 Yes 25mg Take 25 mg Univers 25 mg 8-29 by mouth ity of tablet 17:52: in the [place] 08 morning Medical and 25 mg Branch in the evening. FLUoxetine 2021-0 Yes 10mg Take 10 mg U nivers 10 mg 8-29 by mouth ity of capsule 17:52: in the [place] 08 morning. Medical Branch atorvastati 2021-0 Yes 10mg Take 10 mg Univers n (LIPITOR) 8-29 by mouth ity of 10 mg 17:52: at [place] [facility] 08 bedtime. Medical Branch zolpidem 2021-0 Yes 5mg Take 5 mg Univ ers (AMBIEN) 5 8-29 by mouth ity o f mg tablet 17:52: at [place] [address] bedtime. Medical Branch brexpiprazo 2021-0 Yes 1mg [...] mouth ity of capsule 17:52: in the [place] 08 morning. Medical Branch atorvastati 0 Yes 10mg Take 10 mg Univers n (LIPITOR) 8-29 by mouth ity of 10 mg 17:52: at [facility] 08 bedtime. Medical Branch zolpidem 2021-0 Yes 5mg Take 5 mg Univ ers (AMBIEN) 5 8-29 by mouth ity o f mg tablet 17:52: at [place] [address] bedtime. Medical Branch brexpiprazo 2021-0 Yes 1mg [...] [place] tablet 08 bedtime. Medical Branch zolpidem Yes 5mg Take 5 mg Univ ers (AMBIEN) 5 10-05 by mouth ity o f mg tablet 17:52: at [place] 08 bedtime. Medical Branch brexpiprazo Yes 1mg Take 1 mg U nivers le - by mouth ity of (REXULTI) 1 17:52: [place]. [place] mg Tab 08 Medical Branch hydrALAZINE Yes 25mg Take 25 mg Univers 25 mg 8-29 by mouth ity of tablet 17:52: in the [place] 08 morning Medical and 25 mg Branch in the evening. FLUoxetine Yes 10mg Take 10 mg U nivers 10 mg - by mouth ity of capsule 17:52: in the [place] 08 morning. Medical Branch atorvastati Yes 10mg Take 10 mg Univers n (LIPITOR) 8- by mouth ity of 10 mg 17:52: at [place] tablet 08 bedtime. Medical Branch apixaban 2021- No 5mg Take 5 mg Uni vers (ELIQUIS) 5 10-05 by mouth ity of mg tablet 14:13: 00:00 in the [place] 20 :00 morning Medical and 5 mg Branch in the evening. apixaban Yes 2.5mg 2.5 mg, Unive rs (ELIQUIS) 8- Oral, BID, ity of tablet 2.5 01:00: First dose [place] mg 00 on Sun Medical 10/04/21 at Branch 1999, Until Discontinu ed, Routine
Indicatio ns: Non-Valvul ar Atrial Fibrillati on budesonide- Yes [id number] 2{puff} Inhale 2 Univers formoteroL 8-29 Puffs in ity o f 160-4.5 00:00: the [place] mcg/actuati 00 morning Medic al on inhaler and 2 Branch Puffs in the evening. vancomycin Yes [id number] 125mg Take 1 Univers 125 mg 8-29 capsule by ity of capsule 00:00: mouth 4 ([facility]) Medical times Branch daily. budesonide- Yes [id number] 2{puff} Inhale 2 Univers formoteroL 8-29 Puffs in ity o f 160-4.5 00:00: the [place] mcg/actuati 00 morning Medic al on inhaler and 2 Branch Puffs in the evening. vancomycin Yes [id number] 125mg Take 1 Univers 125 mg 8-29 capsule by ity of capsule 00:00: mouth 4 [place] ([facility]) Medical times Branch daily. budesonide- Yes [id number] 2{puff} Inhale 2 Univers formoteroL 8-29 Puffs in ity o f 160-4.5 00:00: the [place] mcg/actuati 00 morning Medic al on inhaler and 2 Branch Puffs in the evening. vancomycin Yes [id number] 125mg Take 1 Univers 125 mg 8-29 capsule by ity of capsule 00:00: mouth [place] ([facility]) Medical times Branch daily. budesonide- Yes [id number] 2{puff} Inhale 2 Univers formoteroL 8-29 Puffs in ity o f 160-4.5 00:00: the [place] mcg/actuati morning Medic al on inhaler and 2 Branch Puffs in the evening. vancomycin 0 Yes [id number] 125mg Take 1 Univers 125 mg 8-29 capsule by ity of capsule 00:00: mouth 4 [place] ([facility]) Medical times Branch daily. budesonide- 0 Yes [id number] 2{puff} Inhale 2 Univers formoteroL 8-29 Puffs in ity o f 160-4.5 00:00: the [place] mcg/actuati 00 morning Medic al on inhaler and 2 Branch Puffs in the evening. vancomycin 0 Yes [id number] 125mg Take 1 Univers 125 mg 8-29 capsule by ity of capsule 00:00: mouth 4 [place] ([facility]) Medical times Branch daily. budesonide- 0 Yes [id number] 2{puff} Inhale 2 Univers formoteroL 8-29 Puffs in ity o f 160-4.5 00:00: the [place] mcg/actuati 00 morning Medic al on inhaler and 2 Branch Puffs in the evening. vancomycin Yes [id number] 125mg Take 1 Univers 125 mg 8-29 capsule by ity of capsule 00:00: mouth 4 (four) Medical times Branch daily. budesonide- 0 Yes [id number] 2{puff} Inhale 2 Univers formoteroL 8-29 Puffs in ity o f 160-4.5 00:00: the [place] mcg/actuati 00 morning Medic al on inhaler and 2 Branch Puffs in the evening. vancomycin 0 Yes [id number] 125mg Take 1 Univers 125 mg 8-29 capsule by ity of capsule 00:00: mouth 4 [place] (four) Medical times Branch daily. budesonide- 0 Yes [id number] 2{puff} Inhale 2 Univers formoteroL 8-29 Puffs in ity o f 160-4.5 00:00: the [place] mcg/actuati 00 morning Medic al on inhaler and 2 Branch Puffs in the evening. vancomycin Yes [id number] 125mg Take 1 Univers 125 mg 8-29 capsule by ity of capsule 00:00: mouth 4 [place] ([facility]) Medical times Branch daily. budesonide- 0 Yes [id number] 2{puff} Inhale 2 Univers formoteroL 8-29 Puffs in ity o f 160-4.5 00:00: the [place] mcg/actuati 00 morning Medic al on inhaler and 2 Branch Puffs in the evening. vancomycin 0 Yes [id number] 125mg Take 1 Univers 125 mg 8-29 capsule by ity of capsule 00:00: mouth 4 [place] ([facility]) Medical times Branch daily. budesonide- 0 Yes [id number] 2{puff} Inhale 2 Univers formoteroL 8-29 Puffs in ity o f 160-4.5 00:00: the [place] mcg/actuati 00 morning Medic al on inhaler and 2 Branch Puffs in the evening. vancomycin 0 Yes [id number] 125mg Take 1 Univers 125 mg 8-29 capsule by ity of capsule 00:00: mouth 4 [place] (four) Medical times Branch daily. budesonide- 0 Yes [id number] 2{puff} Inhale 2 Univers formoteroL 8-29 Puffs in ity o f 160-4.5 00:00: the [place] mcg/actuati 00 morning Medic al on inhaler and 2 Branch Puffs in the evening. vancomycin 0 Yes [id number] 125mg Take 1 Univers 125 mg 8-29 capsule by ity of capsule 00:00: mouth 4 (four) Medical times Branch daily. budesonide- Yes [id number] 2{puff} Inhale 2 Univers formoteroL 8-29 Puffs in ity o f 160-4.5 00:00: the [place] mcg/actuati 00 morning Medic al on inhaler and 2 Branch Puffs in the evening. vancomycin Yes [id number] 125mg Take 1 Univers 125 mg 8-29 capsule by ity of capsule 00:00: mouth 4 [place] (four) Medical times Branch daily. budesonide- Yes [id number] 2{puff} Inhale 2 Univers formoteroL 8-29 Puffs in ity o f 160-4.5 00:00: the [place] mcg/actuati morning Medic al on inhaler and 2 Branch Puffs in the evening. vancomycin Yes [id number] 125mg Take 1 Univers 125 mg 8-29 capsule by ity of capsule 00:00: mouth 4 [place] ([facility]) Medical times Branch daily. budesonide- 0 Yes [id number] 2{puff} Inhale 2 Univers formoteroL 8-29 Puffs in ity o f 160-4.5 00:00: the [place] mcg/actuati 00 morning Medic al on inhaler and 2 Branch Puffs in the evening. vancomycin 0 Yes [id number] 125mg Take 1 Univers 125 mg 8-29 capsule by ity of capsule 00:00: mouth 4 [place] (four) Medical times Branch daily. budesonide- 0 Yes [id number] 2{puff} Inhale 2 Univers formoteroL 8-29 Puffs in ity o f 160-4.5 00:00: the [place] mcg/actuati 00 morning Medic al on inhaler and 2 Branch Puffs in the evening. vancomycin 0 Yes [id number] 125mg Take 1 Univers 125 mg 8-29 capsule by ity of capsule 00:00: mouth 4 [place] (four) Medical times Branch daily. budesonide- Yes [id number] 2{puff} Inhale 2 Univers formoteroL 8-29 Puffs in ity o f 160-4.5 00:00: the [facility] morning Medic al on inhaler and 2 Branch Puffs in the evening. vancomycin Yes [id number] 125mg Take 1 Univers 125 mg 8-29 capsule by ity of capsule 00:00: mouth 4 [place] 00 (four) Medical times Branch daily. apixaban 2021- No 1358 2.5mg Take 1 Unive rs 2.5 mg 8-29 11-28 tablet by ity of tablet 00:00: 05:59 mouth in [place] 00 :00 the Medical morning Branch and 1 tablet in the evening. Do all this for 90 days. Indication s: atrial fibrillati on apixaban 2021- No 1358 2.5mg Take 1 Unive rs 2.5 mg 8-29 11-28 tablet by ity of tablet 00:00: 05:59 mouth in [place] 00 :00 the Medical morning Branch and 1 tablet in the evening. Do all this for 90 days. Indication s: atrial fibrillati on apixaban 2021-2021- No 1358 2.5mg Take 1 Unive rs [...] ity of tablet 00:00: 05:59 mouth in [place] 00 :00 the Medical morning Branch and 1 tablet in the evening. Do all this for 90 days. Indication s: atrial fibrillati on apixaban 2021-0 2021- No 1358 2.5mg Take 1 Unive rs 2.5 mg 10-05 tablet by ity of tablet 00:00: 05:59 mouth in [place] 00 :00 the Medical morning Branch and 1 tablet in the evening. Do all this for 90 days. Indication s: atrial fibrillati on apixaban 2021- No 1358 2.5mg Take 1 Unive rs 2.5 mg 10-05 tablet by ity of tablet 00:00: 05:59 mouth in [place] 00 :00 the Medical morning Branch and 1 tablet in the evening. Do all this for 90 days. Indication s: atrial fibrillati on apixaban 2021- No 1358 2.5mg Take 1 Unive rs 2.5 mg 10-05 tablet by ity of tablet 00:00: 05:59 mouth in [place] 00 :00 the Medical morning Branch and 1 tablet in the evening. Do all this for 90 days. Indication s: atrial fibrillati on apixaban 2021- No 1358 2.5mg Take 1 Unive rs 2.5 mg 10-05 tablet by ity of tablet 00:00: 05:59 mouth in [place] 00 :00 the Medical morning Branch and 1 tablet in the evening. Do all this for 90 days. Indication s: atrial fibrillati on vancomycin 2021- No [id number] 125mg Take 1 Univers 125 mg 10-05 capsule by ity of capsule 00:00: 00:00 mouth 4 [place] 00 :00 (four) Medical times Branch daily for 10 days. zolpidem Yes 5mg 5 mg, Univers (AMBIEN) 10-04 Oral, ity of tablet 5 mg 21:45: QHSPRN, 3 [place] 27 doses, Medical Starting Branch on [place] 10/04/21 at 1645, Until Discontinu ed, Routine, Insomnia brexpiprazo Yes 1mg 1 mg, Unive rs le 10-04 Oral, ity of (REXULTI) 14:00: DAILY, [place] Tab 1 mg 00 First dose Medic al on Sun Branch 10/04/21 at 0900, Until Discontinu ed, Routine
Medicatio n Name: rexulti
Form: Tablet
Length of Therapy: Indefinite
How soon needed (normally 72 hours needed to procure): 0-24 hrs
Juliana son for non-formul thiago use: PATIENT CURRENTLY TAKING NONFORMULA RY PRODUCT fidaxomicin 2021- No 200mg 200 mg, U nivers (DIFICID) 10-04 09-07 Oral, BID, ity of tablet 200 13:00: 12:59 20 doses, [place] mg 00 :00 First dose Medical on [place] Branch 10/04/21 at 0800, Last dose on Tue10/13/21 at 2000, Routine
Reason for Anti-Infec tive: Documented Infection< br>Documen shazia Infection Site: Abdominal< br>Duratio n of Therapy: 10 days atorvastati Yes 10mg 10 mg, Univ ers n (LIPITOR) 10-04 Oral, QHS, it y of tablet 10 02:00: First dose [place] 00 on [facility] Medical 10/03/21 at Branch 2100, Until Discontinu ed, Routine budesonide- Yes 2{puff} 2 Puff, Univers formoteroL 10-04 Inhalation ity of (SYMBICORT) 01:00: , BID, [place] 160-4.5 00 First dose Medica l mcg/actuati on [facility] on inhaler 10/03/21 at 2 Puff 2000, Until Discontinu ed, Routine zolpidem No 5mg 5 mg, Univers (AMBIEN) 10-03 Oral, ity of tablet 5 mg 22:04: 02:54 QHSPRN, 1 [place] 06 :00 dose, Medical Starting Branch on 10/03/21 at 1704, Until Discontinu ed, Routine, Insomnia ipratropium Yes 3mL 3 mL, Unive rs -albuteroL 10-03 Inhalation ity of (DUONEB) 14:32: , TIDPRN, [place] 0.5 mg-3 09 Starting Medical mg(2.5 mg on [facility] Branch base)/3 mL 10/03/21 at nebulizer 0932, solution 3 Until mL Discontinu ed, Routine, Wheezing, Shortness of Breath pantoprazol 2022-0 Yes 40mg 40 mg, Univ ers e [...] Routine metroNIDAZO No 250mg 250 mg, U elvi LE (FLAGYL) 10-03 Oral, ity of tablet 250 13:00: 12:35 Q12H, 20 [place] mg 00 :06 doses, Medical First dose Branch on [facility] 10/03/21 at 0800, Last dose on Tue10/12/21 at 2000, Routine
Reason for Anti-Infec tive: Documented Infection< br>Documen shazia Infection Site: Abdominal< br>Duratio n of Therapy: 10 days ciprofloxac No 500mg 500 mg, U elvi in HCl 10-03 Oral, BID, ity of [...] Medical (after Branch last modificati on) on 10/02/21 at 2200, Routine acetaminoph Yes 650mg 650 mg, Un aziza en 10-03 Oral, ity of (TYLENOL) 02:57: Q6HPRN, [place] tablet 650 09 Starting Medic al mg on Fri Branch 10/02/21 at 2157, Until Discontinu ed, Routine, Pain (scale 1-3) iopamidol 2021- No [id number] 60mL 60 mL, U nivers (ISOVUE 10-02 Intravenou ity o f 370-500 mL) 22:30: 22:30 s, ONCE, 1 [place] injection 00 :00 dose, On Medica l 60 mL Fri Branch 10/02/21 at 1730, Routine pantoprazol No 40mg 40 mg, IV Univers e 10-02 Push, ity of (PROTONIX) 21:30: 21:32 ONCE, 1 Jeremías as 40 mg in 00 :00 dose, On Medical NaCl 0.9% Fri Branch (NS) 20 mL 10/02/21 at syringe 1630, Administer over 2 Minutes, 20 mL Vital Signs Vital Name Observation Time Observation Value Comments Source Systolic blood 2022-08-31 16:06:00 166 mm[Hg] Univer [facility]ity of [facility] Diastolic blood 2022-08-31 16:06:00 61 mm[facility]Hg[facility] 2022-08-31 16:06:00 69 /min [facility] Respiratory rate 2022-08-31 16:06:00 17 /min [facility] Body height 2022-08-31 16:06:00 152.4 cm [facility] Body weight 2022-08-31 16:06:00 46.267 kg [facility] BMI 2022-08-31 16:06:00 19.92 kg/m2 [facility]i ty [facility] [place] [facility] Oxygen saturation in 2022-08-31 16:06:00 95 /min University of Arterial blood by [facility] Pulse oximetry Branch Systolic blood 2022-01-13 18:10:00 170 mm[Hg] Univer sity of pressure [place] [facility] Diastolic blood 2022-01-13 18:10:00 60 mm[Hg] Unive rsity of pressure [place] [facility] Heart rate 2022-01-13 18:10:00 78 /min Universi ty [facility] [place] [facility] Respiratory rate 2022-01-13 18:10:00 18 /min Univ ersity [facility] [place] [facility] Oxygen saturation in 2022-01-13 18:10:00 94 /min University of Arterial blood by [facility] Pulse oximetry Branch Body temperature 2022-01-13 17:40:00 36.17 Bel Univ ersity of [place] [facility] Body weight 2022-01-08 18:00:00 52.164 kg Universi ty [facility] [place] [facility] BMI 2022-01-08 18:00:00 22.46 kg/m2 [facility] [place] [facility] Systolic blood 2022-01-13 17:50:00 158 mm[Hg] Univer sity of pressure [place] [facility] Diastolic blood 2022-01-13 17:50:00 62 mm[Hg] Unive rsity of pressure [place] [facility] Heart rate 2022-01-13 17:50:00 77 /min Universi ty [facility] [place] [facility] Respiratory rate 2022-01-13 17:50:00 13 /min Univ ersity of [place] [facility] Oxygen saturation in 2022-01-13 17:50:00 95 /min University of Arterial blood by [facility] Pulse oximetry Branch Body temperature 2022-01-13 17:40:00 36.17 [place] Univ ers[facility] [place] [facility] Body weight 2022-01-08 18:00:00 52.164 kg Universi ty [facility] [place] [facility] BMI 2022-01-08 18:00:00 22.46 kg/m2 Universi ty [facility] [place] [facility] Systolic blood 2021-10-16 02:55:00 137 mm[Hg] Univer sity of pressure [place] [facility] Diastolic blood 2021-10-16 02:55:00 53 mm[Hg] Unive rsity of pressure [place] [facility] Heart rate 2021-10-16 02:55:00 67 /min [facility]i [facility] [place] [facility] Respiratory rate 2021-10-16 02:55:00 14 /min Univ ers[facility] [place] [facility] Oxygen saturation in 2021-10-16 02:55:00 93 /min University of Arterial blood by [place] [facility] car[facility]le Pulse oximetry Branch Body temperature 2021-10-16 00:49:00 38.06 [place] Univ [facility] [place] [facility] Body height 2021-10-16 00:49:00 152.4 cm [facility] [place] [facility] Body weight 2021-10-16 00:49:00 55.339 kg [facility] [place] [facility] BMI 2021-10-16 00:49:00 23.83 kg/m2 [facility] [place] [facility] Systolic blood 2021-10-05 20:21:00 159 mm[Hg] Univer sity of pressure [place] [facility] Diastolic blood 2021-10-05 20:21:00 64 mm[Hg] Unive rsity of pressure [place] [facility] Heart rate 2021-10-05 20:21:00 69 /min [facility] [place] [facility] Body temperature 2021-10-05 20:21:00 36.28 [place] Univ ers[facility] [place] [facility] Respiratory rate 2021-10-05 20:21:00 18 /min Univ ers[facility] [place] [facility] Oxygen saturation in 2021-10-05 20:21:00 96 /min University of Arterial blood by [place] Medi carlyle Pulse oximetry Branch Body height 2021-10-03 03:00:00 152.4 cm [facility] [place] [facility] Body weight 2021-10-03 03:00:00 54.432 kg [facility] [place] [facility] BMI 2021-10-03 03:00:00 23.44 kg/m2 [facility] [place] [facility] Procedures Procedure Date / Time Performing Source Performed Clinician [id number] 2022-09-26 MARCOS [facility] 00:[facility]:00 [facility] [id number] 2022-09-21 MARGARET [facility] 00:00:00 Medical [place] [id number] 2022-09-18 MARCOS [facility] 00[facility]00:00 Medical Center [id number] 2022-09-18 [facility] 00:00:00 Medical Center [id number] 2022-09-18 [facility] 00:00:00 Medical Center NO SHOW OR MISSED APPOINTMENT 2022-08-31 Doctor Unassigned, [facility] POLICY ACKNOWLEDGEMENT 15:26:16 [facility] Medical B ranch ASSIGNMENT OF BENEFITS 2022-08-31 Doctor Unassigned, [facility] 15:25:46 [facility] Branch REFERRAL- REQUEST/RESPONSE 2022-06-30 Doctor Unassigned, [facility] 05:01:00 [facility] Medical Branch ASSIGNMENT OF BENEFITS 2022-04-14 Doctor Unassigned, [facility] 17:43:44 [facility] Branch COLONOSCOPY (ENDO) 2022-01-13 [facility] 17:07:41 Medical Branch COLONOSCOPY (ENDO) 2022-01-13 [facility] 17:07:41 Medical Branch COLONOSCOPY 2022-01-13 [facility] 17:01:00 C Medical Branch PATIENT QUESTIONNAIRE 2022-01-13 Doctor Unassigned, [facility] 06:01:00 [facility] EXTERNAL PROVIDER RECORDS 2021-12-28 Doctor Unassigned, [facility] 06:01:00 [facility] EXTERNAL PROVIDER RECORDS 2021-12-28 Doctor Unassigned, [facility] 06:01:00 [facility] EXTERNAL PROVIDER RECORDS 2021-12-25 Doctor Unassigned, [facility] 06:01:00 [facility] Branch EXTERNAL PROVIDER RECORDS 2021-12-25 Doctor Unassigned, [facility] 06:01:00 [facility] DIRECTIVE TO PHYSICIAN 2021-10-26 Doctor Unassigned, [facility] 05:01:00 [facility] XR CHEST 1 VW 2021-10-16 Maged [facility] xa 01:40:24 Medical Branch [facility]YSIS [facility] 01:[facility] Medical Branch [facility]ONIN [facility] COMP. METABOLIC PANEL ([id number]) 2021-10-16 Altaf Quevedo [facility] 01:09:00 Medical Branch CBC WITH DIFF 2021-10-16 Maged [facility] 01:09:00 [facility] N-TERMINAL PRO-BNP 2021-10-16 Maged [facility] 01:09:00 [facility] Branch COVID-19 (ID NOW RAPID [facility]:09[facility]00 [facility] LACTIC ACID WHOLE BLOOD 2021-10-16 Maged [facility] 01:08:00 Medical Branch CONSENT/REFUSAL FOR DIAGNOSIS 2021-10-16 Doctor Unassigned, [facility] AND TREATMENT 00:42:00 [facility] [place] [facility] - OTHER 2021-10-07 Doctor Unassigned, [facility] 05:01:00 [facility] [place] AUTHORIZATION FOR RELEASE OF 2021-10-06 Doctor Unassigned, [facility] PHI 05:01:00 [facility] MAGNESIUM 2021-10-05 Rosalva [facility] 09:12:00 [facility] BASIC METABOLIC PANEL (NA, K, 2021-10-05 Abdoulaye Blackwell [facility] CL, CO2, GLUCOSE, BUN, 09:12:00 Medical ran CREATININE, [place]) CBC WITHOUT DIFF 2021-10-05 Abdoulaye [facility]well [facility] [place] 09:12:00 [facility] ELECTROENCEPHALOGRAM 2021-10-05 Rosalva [facility] 00:00:00 [facility] Branch MAGNESIUM 2021-10-04 Daren [facility] 09:50:00 [facility] [place] BASIC METABOLIC PANEL (NA, K, 2021-10-04 [facility], CO2, GLUCOSE, BUN, 09:50:00 [facility] ran CREATININE, [place]) CBC WITH DIFF 2021-10-04 Waldo, [facility] 09:50:00 [facility] Branch HB ABO GROUPING 2021-10-04 [place] [facility] 02:50:00 [facility] [place] CBC WITH DIFF 2021-10-04 Waldo, [facility] 02:49:00 [facility] Branch COMP. METABOLIC PANEL ([id number]) 2021-10-03 Lisseth Love e [facility] 16:43:00 Medical Branch CBC WITH DIFF 2021-10-03 [facility] 16:43:00 Medical Branch CLOSTRIDIUM DIFFICILE TOXIN 2021-10-03 Flash [facility] 11:15:00 Medical Branch FECAL PATHOGENS BY PCR 2021-10-03 [facility] 11:14:00 Medical Branch OCCULT (GUAIAC) BLOOD 2021-10-03 Flash [facility] 11:13:00 Medical Branch PROTHROMBIN TIME / INR 2021-10-03 Flash [facility] 03:52:00 Medical Branch ACTIVATED PARTIAL THRMPLAS 2021-10-03 Flash [facility] ANA 03:52:00 Medical Branch BASIC METABOLIC PANEL (NA, K, 2021-10-03 [facility], CO2, GLUCOSE, BUN, 03:30:00 Medical B ranch CREATININE, [place]) CBC WITH DIFF 2021-10-03 Flash [facility] [place] 03:30:[address] ABDOMEN PELVIS W CONTRAST 2021-10-02 Brittanie Pal [facility] 21:30:36 Medical Branch ABORH CONFIRMATION (LAB ONLY) 2021-10-02 Brittanie [facility] [place] 21:30:00 Medical Branch HB ECG ROUTINE & RHYTHM STRIP 2021-10-02 Brittanie Pal [facility] [place] 20:58:31 Medical Branch COVID-19 (ID NOW RAPID 2021-10-[address] [facility] TESTING) 20:47:00 Medical Branch LAB ONLY COVID INTERPRETATION 2021-10-02 Brittanie Pal [facility] [place] 20:47:00 Medical Branch COMP. METABOLIC PANEL ([id number]) 2021-10-02 Brittanie [facility] [place] 20:44:00 Medical Branch IRON PANEL 2021-10-02 Yasmani Mercedes [facility] [place] 20:44:00 [facility] Medical Branch CBC WITH DIFF 2021-10-02 Brittanie Pal [facility] [place] 20:44:00 Medical Branch GLYCOSYLATED HEMOGLOBIN (A1C) 2021-10-02 [facility]ha [facility]ales [facility] 20:44:00 Medical Branch PROTHROMBIN TIME / INR 2021-10-[address] [facility] 20:44:00 Medical Branch ACTIVATED PARTIAL THRMPLAS 2021-10-02 Brittanie Pal [facility] ANA 20:44:00 Medical Branch HB ABO GROUPING 2021-10-02 Brittanie Pal [facility] [place] 20:40:00 Medical Branch NOTICE OF PRIVACY PRACTICES 2021-10-02 Doctor Unassloyda, [facility] 19:48:10 [facility] [place] [facility] ADMISSION 2021-10-02 Doctor Unassigned, [facility] 05:01:00 [facility] Encounters Start End Encounter Admission Attending Care Care Encounter Source Date/Time Date/Time Type Type Clinicians Facility Department ID 2022-10-08 2022-10-08 Outpatient [facility] [id number] Karlo 11:25:17 11:25:17 [id number] F [place] 2022-09-19 2022-10-01 Inpatient KINGSLEY LorenzanaPM INTE.02 [id number] [facility] 12:29:00 15:01:00 Sali 72 [facility] [place] 2022-09-16 2022-09-16 Outpatient [facility] [id number] Karlo 15:01:08 15:01:08 [id number] F [place] 2022-08-31 2022-08-31 Office Glenn NJBERRY [id number] Univers 10:00:00 10:30:00 Visit Lawanda AMARO [id number] i ty of [place]2.[place] PROFESS[place] [id number] Nj dical NAL 085 Branch [facility] 2022-08-31 2022-08-31 Outpatient R LAWANDA ALCARAZ [facility] [id number] Univers 10:00:00 10:00:00 LAWANDA ALCARAZ i ty of [facility] 2022-08-31 2022-08-31 Orders Doctor BLACKWELL [id number] Univers 00:00:00 00:00:00 Only Unassigned, ALYSSIA [id number] ity of [facility] 4.2.7.2.686 Jeremías as [id number] [address] 2022-08-17 2022-08-17 Outpatient [facility] Karlo 10:07:27 10:07:27 [id number] F [place] 2022-08-16 2022-08-16 Outpatient [facility] Karlo 09:37:42 09:37:42 [id number] F [place] 2022-06-30 2022-06-30 Orders Doctor ROSALVA [id number] Univers 00:00:00 00:00:00 Only Unassigned, ALYSSIA [id number] ity of [facility] 4.2.7.2.686 Jeremías as [id number] [address] 2022-06-29 2022-06-29 Outpatient [facility] Karlo 10:14:51 10:14:51 [id number] F [place] 2022-05-06 2022-05-06 Outpatient [facility] Karlo 13:57:04 13:57:04 [id number] F [place] 2022-04-14 2022-04-14 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, 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 [facility] [id number] Univers 11:30:00 12:40:42 Visit Una Hall [id number] ity of [facility] 4[place]2.[place].2.[place] [id number] [place] [id number] [place] 2022-04-14 2022-04-14 Outpatient R DEVIN [facility] [id number] [facility] 11:30:00 11:30:00 UNA landaverde o f [facility] 2022-04-14 2022-04-14 Orders Doctor BLACKWELL [id number] Univers 00:00:00 00:00:00 Only Unassigned, ALYSSIA 350.1.13.10 ity of [facility] 4.2.7.2.686 Jeremías as [phone] [address] 2022-03-22 2022-03-22 Outpatient [facility] Karlo 16:55:48 16:55:48 [id number] F [place] 2022-03-08 2022-03-[address] [facility] [id number] [place] 14:40:04 14:40:04 [address]54 F [place] 2022-03-04 2022-03-[address] [facility] [id number] [place] 11:01:10 11:01:10 [id number] F [place] 2022-02-18 2022-02-18 Outpatient [facility] Kar[place] 09:00:08 09:00:08 [id number] F [place] 2022-02-04 2022-02-[address] [facility] Karlo 10:49:39 10:49:39 [id number] F [place] 2022-01-13 2022-01-13 Outpatient R [facility] BO 969 [id number] Univers 09:58:00 12:30:00 GISSELL Mora o f [facility] 2022-01-13 2022-01-13 [facility] 1.2.840.114 [id number] Univers 09:58:00 12:30:00 Encounter eGissell 350.1.13.10 it[place] [id number] [facility] [address] 2022-01-13 2022-01-13 Surgery [facility] 1.2.840.114 [id number] Univers 11:07:00 11:51:00 Gissell mora 350.1.13.10 ity [facility] [place] [phone] [facility] [address] 2022-01-13 2022-01-13 Orders Doctor BLACKWELL 1.2.840.114 [id number] Univers 00:00:00 00:00:00 Only Unassigned, ALYSSIA 350.1.13.10 [facility] 4.2.7.2.686 Jeremías as [phone] [facility] [address] 2021-10-26 2021-10-26 Orders Doctor BLACKWELL 1.2.840.114 [id number] Univers 00:00:00 00:00:00 Only Unassigned, ALYSSIA 350.1.13.10 ity of [facility] 4.2.7.2.686 Jeremías as [phone] [facility] [address] 2021-10-15 2021-10-15 Emergency X ALTAF QUEVEDO [facility] ERT 1 [id number] Univers 19:43:00 21:57:00 ALTAF QUEVEDO ity of [facility] 2021-10-15 2021-10-15 Emergency Maged [facility] [id number] Univers 19:43:00 21:57:00 Altaf AMARO 350.1.13.10 i ty of [place] [phone] [facility] [address] 2021-10-07 2021-10-07 Orders Doctor ROSALVA 1.2.840.114 [id number] Univers 00:00:00 00:00:00 Only Unassigned, ALYSSIA 350.1.13.10 ity of [facility] 4.2.7.2.686 Jeremías as [phone] [facility] [address]9 [address] 2021-10-06 2021-10-06 Transition ADDISON Baum 1.2.840.114 [id number] Univers 00:00:00 00:00:00 of Care Katya GRACIAY 350.1.13.10 [place] [phone] [facility] 403 [address] 2021-10-06 2021-10-06 Orders Doctor ROSALVA 1.2.840.114 [id number] Univers 00:00:00 00:00:00 Only Unassigned, ALYSSIA 350.1.13.10 ity of [facility] 4.2.7.2.686 Jeremías as [phone] [facility] 009 [address] 2021-10-02 2021-10-05 Hospital Brittanie Pal 1.2.840.1 [id number] Univers 15:20:00 17:15:00 Encounter Mufti Padmaaurora CADE 350.1.13.10 ity of HOSPITAL 4.2.7.2.686 Jeremías as [phone] [facility] 100 [address] 2021-10-02 2021-10-05 Outpatient X JIGNESH ABRAHAM [facility] [id number] Univers 15:20:00 17:15:00 PADMA ity [facility] 2021-10-05 2021-10-05 Telephone JIGNESH Abraham [id number] Univers 00:00:00 00:00:00 Padma MULTISPEC 350.1.13.10 ity [facility] 4.2.7.2.686 [facility] [phone] [facility] AND RAVI [address] [facility] 2021-09-02 2021-09-02 Outpatient TIBURCIO[facility]SANDRA [facility] 953 [place] 00:00:00 00:00:00 _MARÍA 0727 [facility] Program Results Test Description Test Time Test Comments Results Result Comments Source GLUCOSE BEDSIDE TESTING 2022-10-01 12:27:00 Test Item Value Reference Range Interpretation Comme nts GLUCOSE BEDSIDE TESTING (test code = GLUBED) 99 mg/dL 70-110 N BASIC METABOLIC [id number] 05:35:00 Test Item Value Reference Range Interpretation Comments SODIUM (test code 143 mmol/L 134-147 N = NA) POTASSIUM (test 3.7 mmol/L 3.4-5.0 N code = K) CHLORIDE (test 107 mmol/L 100-108 N code = CL) CARBON DIOXIDE 34 mmol/L 21-32 H (test code = CO2) ANION GAP (test 2.0 GAP calc 4.0-15.0 L code = GAP) GLUCOSE (test code 94 MG/DL 70-110 N = GLU) BLOOD UREA 17 MG/DL 7-18 N NITROGEN (test code = BUN) GLOMERULAR >=60 max >60 The Glomerular FILTRATION RATE estimate estGFR Filtratio n Rate is a (test code = GFR) calculated parameterbased on serum Creatinin e, patient age and sex. GFR valuesless than 60 mL/min/1.73 square meters are hipolito cative ofChronic Kidne y Disease. Values less than 15 mL/min/1.73squa re meters indicate Kidney failure. The calculation for GFR is based on the CK D-EPI (2020) calculat ion. This formulais race indifferent and is the recommended formula for GFR by the National Kidney Foundation for Adults.The GFR will not calculate i f the sex is unknown or if thepatient's ag e is <18 years. CREATININE (test 0.9 MG/DL 0.6-1.0 N code = CREAT) CALCIUM (test code 8.3 MG/DL 8.5-10.1 L = CA) [id number] 05:35:00 Test Item Value Reference Range Interpretation Comments PHOSPHOROUS (test code = PHOS) 3.0 MG/DL 2.5-4.9 [id number] 05:35:00 Test Item Value Reference Range Interpretation Comments MAGNESIUM (test code = MAG) 2.0 MG/DL 1.8-2.4 N CBC W/AUTO [id number] 05:06:00 Test Item Value Reference Range Interpretation Comments WHITE BLOOD CELL (test code = 6.3 K/mm3 3.5-11.0 N WBC) RED BLOOD CELL (test code = 3.03 M/mm3 4.70-6.10 L RBC) HEMOGLOBIN (test code = HGB) 9.0 G/DL 10.4-14.9 L HEMATOCRIT (test code = HCT) 27.5 % 31.5-44.1 L MEAN CELL VOLUME (test code = 90.8 Fl 84.5-98.6 N MCV) MEAN CELL HGB (test code = MCH) 29.7 pg 27.0-34.2 N MEAN CELL HGB CONCETRATION 32.7 G/DL 31.5-34.0 N (test code = MCHC) RED CELL DISTRIBUTION WIDTH 14.0 SD 11.5-14.5 N (test code = RDW) PLATELET COUNT (test code = 353 K/mm3 150-450 N PLT) MEAN PLATELET VOLUME (test code 8.70 fL 7.0-10.5 N = MPV) NEUTROPHIL % (test code = NT%) 69.6 % 40-76 N IMMATURE GRANULOCYTE % (test 0.9 % 0.0-5.0 N code = IG%) LYMPHOCYTE % (test code = LY%) 15.0 % 20.5-51.1 L MONOCYTE % (test code = MO%) 5.8 % 1.7-9.3 N EOSINOPHIL % (test code = EO%) 7.9 % 0.0-6.0 H BASOPHIL % (test code = BA%) 0.8 % 0.0-2.0 N NUCLEATED RBC % (test code = 0.0 /100WBC% 0.0-1.0 N NRBC%) NEUTROPHIL # (test code = NT#) 4.4 K/mm3 1.8-7.6 N IMMATURE GRANULOCYTE # (test 0.06 x10 3/uL 0.00-0.03 H code = IG#) LYMPHOCYTE # (test code = LY#) 1.0 K/mm3 0.6-3.2 N MONOCYTE # (test code = MO#) 0.4 K/mm3 0.3-1.1 N EOSINOPHIL # (test code = EO#) 0.5 K/mm3 0.0-0.4 H BASOPHIL # (test code = BA#) 0.1 K/mm3 0.0-0.1 N NUCLEATED RBC # (test code = 0.0 K/mm3 0.0-0.1 N NRBC#) MANUAL DIFF REQUIRED (test code NO DIFF/SCN CRITERIA = MDIFF) BASIC METABOLIC [id number] 05:51:00 Test Item Value Reference Range Interpretation Comments SODIUM (test code = 140 mmol/L 134-147 N NA) POTASSIUM (test 3.0 mmol/L 3.4-5.0 L code = K) CHLORIDE (test code 105 mmol/L 100-108 N = CL) CARBON DIOXIDE 33 mmol/L 21-32 H (test code = CO2) ANION GAP (test 2.0 GAP calc 4.0-15.0 L code = GAP) GLUCOSE (test code 102 MG/DL 70-110 N = GLU) BLOOD UREA NITROGEN 20 MG/DL 7-18 H (test code = BUN) GLOMERULAR 55 estGFR >60 L The Glomerular FILTRATION RATE Filtration R ate is a (test code = GFR) calculated parameterbased on serum Creatinin e, patient age and sex. GFR valuesless than 60 mL/min/1.73 squ are meters are hipolito cative ofChronic Kidne y Disease. Values less than 15 mL/min/1.73squa re meters indicate Kidney failure. The calculation for GFR is based on the CK D-EPI (2020) calculat ion. This formulais race indifferent and is the recommended for dewey for GFRby the N ational Kidney Foundati on for Adults.The GFR will not calculate i f the sex is unknown or if thepatient's ag e is <18 years. CREATININE (test 1.0 MG/DL 0.6-1.0 N code = CREAT) CALCIUM (test code 8.0 MG/DL 8.5-10.1 L = CA) [id number] 05:51:00 Test Item Value Reference Range Interpretation Comments PHOSPHOROUS (test code = PHOS) 1.7 MG/DL 2.5-4.9 L [id number] 05:51:00 Test Item Value Reference Range Interpretation Comments MAGNESIUM (test code = MAG) 1.3 MG/DL 1.8-2.4 L CBC W/AUTO [id number] 05:18:00 Test Item Value Reference Range Interpretation Comments WHITE BLOOD CELL (test code = 7.2 K/mm3 3.5-11.0 N WBC) RED BLOOD CELL (test code = 3.10 M/mm3 4.70-6.10 L RBC) HEMOGLOBIN (test code = HGB) 9.1 G/DL 10.4-14.9 L HEMATOCRIT (test code = HCT) 27.4 % 31.5-44.1 L MEAN CELL VOLUME (test code = 88.4 Fl 84.5-98.6 N MCV) MEAN CELL HGB (test code = MCH) 29.4 pg 27.0-34.2 N MEAN CELL HGB CONCETRATION 33.2 G/DL 31.5-34.0 N (test code = MCHC) RED CELL DISTRIBUTION WIDTH 13.6 SD 11.5-14.5 N (test code = RDW) PLATELET COUNT (test code = 311 K/mm3 150-450 N PLT) MEAN PLATELET VOLUME (test code 8.90 fL 7.0-10.5 N = MPV) NEUTROPHIL % (test code = NT%) 72.0 % 40-76 N IMMATURE GRANULOCYTE % (test 1.0 % 0.0-5.0 N code = IG%) LYMPHOCYTE % (test code = LY%) 13.7 % 20.5-51.1 L MONOCYTE % (test code = MO%) 7.3 % 1.7-9.3 N EOSINOPHIL % (test code = EO%) 5.6 % 0.0-6.0 N BASOPHIL % (test code = BA%) 0.4 % 0.0-2.0 N NUCLEATED RBC % (test code = 0.0 /100WBC% 0.0-1.0 N NRBC%) NEUTROPHIL # (test code = NT#) 5.2 K/mm3 1.8-7.6 N IMMATURE GRANULOCYTE # (test 0.07 x10 3/uL 0.00-0.03 H code = IG#) LYMPHOCYTE # (test code = LY#) 1.0 K/mm3 0.6-3.2 N MONOCYTE # (test code = MO#) 0.5 K/mm3 0.3-1.1 N EOSINOPHIL # (test code = EO#) 0.4 K/mm3 0.0-0.4 N BASOPHIL # (test code = BA#) 0.0 K/mm3 0.0-0.1 N NUCLEATED RBC # (test code = 0.0 K/mm3 0.0-0.1 N NRBC#) MANUAL DIFF REQUIRED (test code NO DIFF/SCN CRITERIA = MDIFF) COMPREHENSIVE METABOLIC [id number] 05:24:00 Test Item Value Reference Range Interpretation Comments SODIUM (test code 139 mmol/L 134-147 N = NA) POTASSIUM (test 3.6 mmol/L 3.4-5.0 N code = K) CHLORIDE (test 104 mmol/L 100-108 N code = CL) CARBON DIOXIDE 29 mmol/L 21-32 N (test code = CO2) ANION GAP (test 6.0 GAP calc 4.0-15.0 N code = GAP) GLUCOSE (test code 93 MG/DL 70-110 N = GLU) BLOOD UREA 21 MG/DL 7-18 H NITROGEN (test code = BUN) GLOMERULAR >=60 max >60 The Glomerular FILTRATION RATE estimate estGFR Filtratio n Rate is a (test code = GFR) calculated parameterbased on serum Creatinin e, patient age and sex. GFR valuesless than 60 mL/min/1.73 square meters are hipolito cative ofChronic Kidne y Disease. Values less than 15 mL/min/1.73squa re meters indicate Kidney failure. The calculation for GFR is based on the CK D-EPI (2020) calculat ion. This formulais race indifferent and is the recommended formula for GFR by the National Kidney Foundation for Adults.The GFR will not calculate i f the sex is unknown or if thepatient's ag e is <18 years. CREATININE (test 0.8 MG/DL 0.6-1.0 N code = CREAT) TOTAL PROTEIN 4.6 G/DL 6.4-8.2 L (test code = PROT) ALBUMIN (test code 1.9 G/DL 3.4-5.0 L = ALB) GLOBULIN (test 2.7 GM/dL code = GLOB) ALBUMIN/GLOBULIN 0.7 RATIO 1.2-2.2 L RATIO (test code = A/G) CALCIUM (test code 8.5 MG/DL 8.5-10.1 N = CA) BILIRUBIN TOTAL 1.00 MG/DL 0.2-1.2 N (test code = BILT) SGOT/AST (test 33 Unit/L 15-37 N code = AST) SGPT/ALT (test 23 Unit/L 12-78 N code = ALT) ALKALINE 109 Unit/L 45-117 N PHOSPHATASE TOTAL (test code = ALKP) [id number] 05:24:00 Test Item Value Reference Range Interpretation Comments PHOSPHOROUS (test code = PHOS) 2.5 MG/DL 2.5-4.9 N [id number] 05:24:00 Test Item Value Reference Range Interpretation Comments MAGNESIUM (test code = MAG) 1.8 MG/DL 1.8-2.4 N CBC W/AUTO [id number] 04:52:00 Test Item Value Reference Range Interpretation Comments WHITE BLOOD CELL (test code = 7.0 K/mm3 3.5-11.0 N WBC) RED BLOOD CELL (test code = 3.01 M/mm3 4.70-6.10 L RBC) HEMOGLOBIN (test code = HGB) 8.9 G/DL 10.4-14.9 L HEMATOCRIT (test code = HCT) 27.0 % 31.5-44.1 L MEAN CELL VOLUME (test code = 89.7 Fl 84.5-98.6 N MCV) MEAN CELL HGB (test code = MCH) 29.6 pg 27.0-34.2 N MEAN CELL HGB CONCETRATION 33.0 G/DL 31.5-34.0 N (test code = MCHC) RED CELL DISTRIBUTION WIDTH 13.7 SD 11.5-14.5 N (test code = RDW) PLATELET COUNT (test code = 286 K/mm3 150-450 N PLT) MEAN PLATELET VOLUME (test code 9.10 fL 7.0-10.5 N = MPV) NEUTROPHIL % (test code = NT%) 72.5 % 40-76 N IMMATURE GRANULOCYTE % (test 1.1 % 0.0-5.0 N code = IG%) LYMPHOCYTE % (test code = LY%) 11.6 % 20.5-51.1 L MONOCYTE % (test code = MO%) 6.9 % 1.7-9.3 N EOSINOPHIL % (test code = EO%) 7.3 % 0.0-6.0 H BASOPHIL % (test code = BA%) 0.6 % 0.0-2.0 N NUCLEATED RBC % (test code = 0.0 /100WBC% 0.0-1.0 N NRBC%) NEUTROPHIL # (test code = NT#) 5.1 K/mm3 1.8-7.6 N IMMATURE GRANULOCYTE # (test 0.08 x10 3/uL 0.00-0.03 H code = IG#) LYMPHOCYTE # (test code = LY#) 0.8 K/mm3 0.6-3.2 N MONOCYTE # (test code = MO#) 0.5 K/mm3 0.3-1.1 N EOSINOPHIL # (test code = EO#) 0.5 K/mm3 0.0-0.4 H BASOPHIL # (test code = BA#) 0.0 K/mm3 0.0-0.1 N NUCLEATED RBC # (test code = 0.0 K/mm3 0.0-0.1 N NRBC#) MANUAL DIFF REQUIRED (test code NO DIFF/SCN CRITERIA = MDIFF) [id number] 06:13:00 Test Item Value Reference Range Interpretation Comments CORTISOL (test code = 18.2 ug/dL 6.2-19.4 Please Note: The CORTR) reference inter kenan and flagging for th is test is for an AM collection. If this is a PM collection please use: Cortisol P M: 2.3-11.9Perform ed At: [facility] [id number] [facility] [place], [place] [id number] alberto Holt MD [phone] BASIC METABOLIC [id number] 02:58:00 Test Item Value Reference Range Interpretation Comments SODIUM (test code 136 mmol/L 134-147 N = NA) POTASSIUM (test 3.8 mmol/L 3.4-5.0 N code = K) CHLORIDE (test 103 mmol/L 100-108 N code = CL) CARBON DIOXIDE 31 mmol/L 21-32 N (test code = CO2) ANION GAP (test 2.0 GAP calc 4.0-15.0 L code = GAP) GLUCOSE (test code 89 MG/DL 70-110 N = GLU) BLOOD UREA 30 MG/DL 7-18 H NITROGEN (test code = BUN) GLOMERULAR >=60 max >60 The Glomerular FILTRATION RATE estimate estGFR Filtratio n Rate is a (test code = GFR) calculated parameterbased on serum Creatinin e, patient age and sex. GFR valuesless than 60 mL/min/1.73 square meters are hipolito cative ofChronic Kidne y Disease. Values less than 15 mL/min/1.73squa re meters indicate Kidney failure. The calculation for GFR is based on the CK D-EPI (2020) calculat ion. This formulais race indifferent and is the recommended formula for GFR by the National Kidney Foundation for Adults.The GFR will not calculate i f the sex is unknown or if thepatient's ag e is <18 years. CREATININE (test 0.7 MG/DL 0.6-1.0 N code = CREAT) CALCIUM (test code 7.9 MG/DL 8.5-10.1 L = CA) [id number] 02:58:00 Test Item Value Reference Range Interpretation Comments PHOSPHOROUS (test code = PHOS) 2.9 MG/DL 2.5-4.9 N [id number] 02:58:00 Test Item Value Reference Range Interpretation Comments MAGNESIUM (test code = MAG) 1.7 MG/DL 1.8-2.4 L CBC W/AUTO [id number] 02:43:00 Test Item Value Reference Range Interpretation Comments WHITE BLOOD CELL (test code = 8.7 K/mm3 3.5-11.0 N WBC) RED BLOOD CELL (test code = 3.08 M/mm3 4.70-6.10 L RBC) HEMOGLOBIN (test code = HGB) 9.2 G/DL 10.4-14.9 L HEMATOCRIT (test code = HCT) 27.5 % 31.5-44.1 L MEAN CELL VOLUME (test code = 89.3 Fl 84.5-98.6 N MCV) MEAN CELL HGB (test code = MCH) 29.9 pg 27.0-34.2 N MEAN CELL HGB CONCETRATION 33.5 G/DL 31.5-34.0 N (test code = MCHC) RED CELL DISTRIBUTION WIDTH 13.7 SD 11.5-14.5 N (test code = RDW) PLATELET COUNT (test code = 241 K/mm3 150-450 N PLT) MEAN PLATELET VOLUME (test code 9.60 fL 7.0-10.5 N = MPV) NEUTROPHIL % (test code = NT%) 74.7 % 40-76 N IMMATURE GRANULOCYTE % (test 0.9 % 0.0-5.0 N code = IG%) LYMPHOCYTE % (test code = LY%) 9.0 % 20.5-51.1 L MONOCYTE % (test code = MO%) 7.6 % 1.7-9.3 N EOSINOPHIL % (test code = EO%) 7.2 % 0.0-6.0 H BASOPHIL % (test code = BA%) 0.6 % 0.0-2.0 N NUCLEATED RBC % (test code = 0.0 /100WBC% 0.0-1.0 N NRBC%) NEUTROPHIL # (test code = NT#) 6.5 K/mm3 1.8-7.6 N IMMATURE GRANULOCYTE # (test 0.08 x10 3/uL 0.00-0.03 H code = IG#) LYMPHOCYTE # (test code = LY#) 0.8 K/mm3 0.6-3.2 N MONOCYTE # (test code = MO#) 0.7 K/mm3 0.3-1.1 N EOSINOPHIL # (test code = EO#) 0.6 K/mm3 0.0-0.4 H BASOPHIL # (test code = BA#) 0.1 K/mm3 0.0-0.1 N NUCLEATED RBC # (test code = 0.0 K/mm3 0.0-0.1 N NRBC#) MANUAL DIFF REQUIRED (test code NO DIFF/SCN CRITERIA = MDIFF) CBC W/AUTO [id number] 03:45:00 Test Item Value Reference Range Interpretation Comments WHITE BLOOD CELL (test code = 14.6 K/mm3 3.5-11.0 H WBC) RED BLOOD CELL (test code = 3.32 M/mm3 4.70-6.10 L RBC) HEMOGLOBIN (test code = HGB) 10.0 G/DL 10.4-14.9 L HEMATOCRIT (test code = HCT) 29.7 % 31.5-44.1 L MEAN CELL VOLUME (test code = 89.5 Fl 84.5-98.6 N MCV) MEAN CELL HGB (test code = MCH) 30.1 pg 27.0-34.2 N MEAN CELL HGB CONCETRATION 33.7 G/DL 31.5-34.0 N (test code = MCHC) RED CELL DISTRIBUTION WIDTH 13.3 SD 11.5-14.5 N (test code = RDW) PLATELET COUNT (test code = 229 K/mm3 150-450 N PLT) MEAN PLATELET VOLUME (test code 9.60 fL 7.0-10.5 N = MPV) NEUTROPHIL % (test code = NT%) 78.8 % 40-76 H IMMATURE GRANULOCYTE % (test 1.0 % 0.0-5.0 N code = IG%) LYMPHOCYTE % (test code = LY%) 6.7 % 20.5-51.1 L MONOCYTE % (test code = MO%) 8.0 % 1.7-9.3 N EOSINOPHIL % (test code = EO%) 5.2 % 0.0-6.0 N BASOPHIL % (test code = BA%) 0.3 % 0.0-2.0 N NUCLEATED RBC % (test code = 0.0 /100WBC% 0.0-1.0 N NRBC%) NEUTROPHIL # (test code = NT#) 11.5 K/mm3 1.8-7.6 H IMMATURE GRANULOCYTE # (test 0.15 x10 3/uL 0.00-0.03 H code = IG#) LYMPHOCYTE # (test code = LY#) 1.0 K/mm3 0.6-3.2 N MONOCYTE # (test code = MO#) 1.2 K/mm3 0.3-1.1 H EOSINOPHIL # (test code = EO#) 0.8 K/mm3 0.0-0.4 H BASOPHIL # (test code = BA#) 0.0 K/mm3 0.0-0.1 N NUCLEATED RBC # (test code = 0.0 K/mm3 0.0-0.1 N NRBC#) MANUAL DIFF REQUIRED (test code NO DIFF/SCN CRITERIA = MDIFF) BASIC METABOLIC [id number] 02:37:00 Test Item Value Reference Range Interpretation Comments SODIUM (test code 134 mmol/L 134-147 N = NA) POTASSIUM (test 3.5 mmol/L 3.4-5.0 N code = K) CHLORIDE (test 101 mmol/L 100-108 N code = CL) CARBON DIOXIDE 29 mmol/L 21-32 N (test code = CO2) ANION GAP (test 4.0 GAP calc 4.0-15.0 N code = GAP) GLUCOSE (test code 107 MG/DL 70-110 N = GLU) BLOOD UREA 45 MG/DL 7-18 H NITROGEN (test code = BUN) GLOMERULAR >=60 max >60 The Glomerular FILTRATION RATE estimate estGFR Filtratio n Rate is a (test code = GFR) calculated parameterbased on serum Creatinin e, patient age and sex. GFR valuesless than 60 mL/min/1.73 square meters are hipolito cative ofChronic Kidne y Disease. Values less than 15 mL/min/1.73squa re meters indicate Kidney failure. The calculation for GFR is based on the CK D-EPI (2020) calculat ion. This formulais race indifferent and is the recommended formula for GFR by the National Kidney Foundation for Adults.The GFR will not calculate i f the sex is unknown or if thepatient's ag e is <18 years. CREATININE (test 0.8 MG/DL 0.6-1.0 N code = CREAT) CALCIUM (test code 8.3 MG/DL 8.5-10.1 L = CA) [id number] 02:37:00 Test Item Value Reference Range Interpretation Comments PHOSPHOROUS (test code = PHOS) 2.4 MG/DL 2.5-4.9 L [id number] 02:37:00 Test Item Value Reference Range Interpretation Comments MAGNESIUM (test code = MAG) 1.9 MG/DL 1.8-2.4 - XR ABDOMEN 1 [id number] 09:57:00 [facility] : 1935 Sex: F Name: LESLEY BREAUX [place] : 1935 Age/S: 87 / [place] [employer] [place] Unit #: [id number] Loc: [place] [address] Phys: Giorgi Chavarria MD Acct: [id number] Dis Date: Status: ADM IN PHONE #: [phone] Exam Date: 09/26/2022929 FAX #: Reason: ABDOMINAL PAIN EXAMS: CPT: [id number] XR ABDOMEN 1 V [id number] Fluoro Time: DAP (Gy m2): Air Kerma (mGy): EXAM: Abdomen 1 view LOCATION:T18 HISTORY: ABDOMINAL PAIN COMPARISON: None available time of interpretation. FINDINGS: Single frontal view of the abdomen. The bowel gas pattern is nonobstructive. No suspicious calcifications identified. No acute osseous findings. IMPRESSION: Nonobstructive bowel gas pattern. at 0957 Reported and signed by: Abhinav Fajardo M.D. CC: Gissel Ortega MD; Giorgi Chavarria MD PAGE 1 Signed Report Name: LESLEY BREAUX [place] : 1935 Age/S: / 1 [facility] [place] Unit #: [id number] Loc: [place] [address] Phys: Giorgi Chavarria MD Acct: [id number] Dis Date: Status: ADM IN PHONE #: [phone] Exam Date: 09/26/2022929 FAX#: Reason: ABDOMINAL PAIN EXAMS: CPT: [id number] XR ABDOMEN 1 V 06632 Fluoro Time: DAP (Gy m2): Air Kerma (mGy): (Continued) Technologist: Justina Keenan, RT(R) Trnscb Date/Time: 09/26/2022 ([id number]) [email or web address] Orig Print D/T: S: 09/26/2022 (1000) PAGE 2 Signed ReportCBC W/AUTO [id number] 06:54:00 Test Item Value Reference Range Interpretation Comments WHITE BLOOD CELL (test code = 21.1 K/mm3 3.5-11.0 H WBC) RED BLOOD CELL (test code = 3.59 M/mm3 4.70-6.10 L RBC) HEMOGLOBIN (test code = HGB) 10.6 G/DL 10.4-14.9 N HEMATOCRIT (test code = HCT) 31.2 % 31.5-44.1 L MEAN CELL VOLUME (test code = 86.9 Fl 84.5-98.6 N MCV) MEAN CELL HGB (test code = MCH) 29.5 pg 27.0-34.2 N MEAN CELL HGB CONCETRATION 34.0 G/DL 31.5-34.0 N (test code = MCHC) RED CELL DISTRIBUTION WIDTH 13.4 SD 11.5-14.5 N (test code = RDW) PLATELET COUNT (test code = 244 K/mm3 150-450 N PLT) MEAN PLATELET VOLUME (test code 9.80 fL 7.0-10.5 N = MPV) NEUTROPHIL % (test code = NT%) 80.4 % 40-76 H IMMATURE GRANULOCYTE % (test 2.2 % 0.0-5.0 N code = IG%) LYMPHOCYTE % (test code = LY%) 5.3 % 20.5-51.1 L MONOCYTE % (test code = MO%) 8.8 % 1.7-9.3 N EOSINOPHIL % (test code = EO%) 3.0 % 0.0-6.0 N BASOPHIL % (test code = BA%) 0.3 % 0.0-2.0 N NUCLEATED RBC % (test code = 0.0 /100WBC% 0.0-1.0 N NRBC%) NEUTROPHIL # (test code = NT#) 16.9 K/mm3 1.8-7.6 H IMMATURE GRANULOCYTE # (test 0.47 x10 3/uL 0.00-0.03 H code = IG#) LYMPHOCYTE # (test code = LY#) 1.1 K/mm3 0.6-3.2 N MONOCYTE # (test code = MO#) 1.9 K/mm3 0.3-1.1 H EOSINOPHIL # (test code = EO#) 0.6 K/mm3 0.0-0.4 H BASOPHIL # (test code = BA#) 0.1 K/mm3 0.0-0.1 N NUCLEATED RBC # (test code = 0.0 K/mm3 0.0-0.1 N NRBC#) MANUAL DIFF REQUIRED (test code NO DIFF/SCN CRITERIA = MDIFF) [id number] 06:46:00 Test Item Value Reference Range Interpretation Comments PHOSPHOROUS (test code = PHOS) 2.8 MG/DL 2.5-4.9 N [id number] 06:46:00 Test Item Value Reference Range Interpretation Comments MAGNESIUM (test code = MAG) 2.3 MG/DL 1.8-2.4 BASIC METABOLIC [id number] 06:46:00 Test Item Value Reference Range Interpretation Comments SODIUM (test code = 129 mmol/L 134-147 L NA) POTASSIUM (test 3.4 mmol/L 3.4-5.0 N code = K) CHLORIDE (test code 97 mmol/L 100-108 L = CL) CARBON DIOXIDE 27 mmol/L 21-32 N (test code = CO2) ANION GAP (test 5.0 GAP calc 4.0-15.0 N code = GAP) GLUCOSE (test code 115 MG/DL 70-110 H = GLU) BLOOD UREA NITROGEN 48 MG/DL 7-18 H (test code = BUN) GLOMERULAR 55 estGFR >60 L The Glomerular FILTRATION RATE Filtration R ate is a (test code = GFR) calculated parameterbased on serum Creatinin e, patient age and sex. GFR valuesless than 60 mL/min/1.73 squ are meters are hipolito cative ofChronic Kidne y Disease. Values less than 15 mL/min/1.73squa re meters indicate Kidney failure. The calculation for GFR is based on the CK D-EPI (2020) calculat ion. This formulais race indifferent and is the recommended for dewey for GFRby the atreplaced by [facility] for Adults.The GFR will not calculate i f the sex is unknown or if thepatient's ag e is <18 years. CREATININE (test 1.0 MG/DL 0.6-1.0 N code = CREAT) CALCIUM (test code 8.2 MG/DL 8.5-10.1 L = CA) - XR CHEST 1 [id number] 06:24:00 [facility] : 1935 Sex: F Name: LESLEY BREAUX [facility] : 1935 Age/S: 87 / F [address] [address] Unit #: [id number] Loc: [place] [address] Phys: LuanaHeath sosaJessikayojanaestefanía APRNNP Acct: [id number] Dis Date: Status: ADM IN PHONE #: [phone] Exam Date: 09/26/2022 0552 FAX #: Reason: S/P PICC LINE PLACEMENT EXAMS: CPT: [id number] XR CHEST 1 V 18203 Fluoro Time: DAP (Gy m2): Air Kerma (mGy): EXAMINATION: - XR CHEST 1 V LOCATION: H101 INDICATION/CLINICAL HISTORY: S/P PICC LINE PLACEMENT COMPARISON: Chest x-ray September 25, 2022 at 2347 TECHNIQUE: AP view of the chest. FINDINGS: Right upper extremity PICC has been placed withtip located in the mid SVC. 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 Cardiac silhouette is normal in s ize. Patchy left basilar opacities are unchanged. No pneumothorax or pleural effusion. IMPRESSION: 1. Interval placement of a right upper extremity PICC with tip located in mid SVC. No pneumothorax. 2.Unchanged mild left basilar opacities, which may reflect atelectasis or pneumonia. ElectronicallySigned by Faith Ford on 09/26/2022 at 0624 Reported and signed by: Blake Ford M.D. CC: Eliu Duarte; Gissel Ortega MD PAGE 1 Signed Report Name: LESLEY BREAUX [facility] : 1935 Age/S: 87 / F [address] [address] Unit #: [id number] Loc: [place] [address] Phys: Everardo Duarte Acct: [id number] Dis Date: Status: ADM IN PHONE #: [phone] Exam Date: 09/26/2022 0552 FAX #: Reason: S/P PICC LINE PLACEMENT EXAMS: CPT: [id number] XR CHEST 1 V 03468Udfcho Time: DAP (Gy m2): Air Kerma (mGy): (Continued) Technologist: Adali Chapman, RT(R)(CT) Trnscb Date/Time: 09/26/2022 (623) [email or web address] Orig Print D/T: S: 09/26/2022 (06) PAGE 2 Signed Report- XR CHEST 1 [id number] 00:37:00 [facility] 1935 Sex: F Name: LESLEY BREAUX [facility] : 1935 Age/S: 87 / F [address] [address] Unit #: [id number] Loc: [place] [address] Phys: Eliu Duarte APRANAHI Acct: [id number] Dis Date: Status: ADM IN PHONE #: [phone] Exam Date: 09/25/2022 1156 FAX #: Reason: SOB/PULM EDEMA EXAMS: CPT: [id number] XR CHEST 1 V 17168 Fluoro Time: DAP (Gy m2): Air Kerma (mGy): AP Portable Chest Location Code M12 HISTORY: SOB/PULM EDEMA FINDINGS: Stable patchy opacity is noted in the left lung base. There are coarse chronic appearing bilateral interstitial markings without evidence of overt edema. There is no significant change from 09/24/2022. There is no pneumothorax. Cardiac silhouette and mediastinum appear within normal limits. Left-sided pacer is in place. IMPRESSION: No significant interval change in faint leftbasilar atelectasis or pneumonia. at 0037 Reported and signed by: Siobhan Friend M.D. CC: Eliu Duarte; Gissel Ortega MD PAGE 1 Signed Report Name: LESLEY BREAUX [facility] : 1935 Age/S:87 / F [address] [address] Unit #: [id number] Loc: [place] [address] Phys: Eliu Duarte APRANAHI Acct: [id number] Dis Date: Status: ADM IN PHONE #: [phone] Exam Date: 09/25/2022 1156 FAX #: Reason: SOB/PULM EDEMA EXAMS: CPT: [id number] XR CHEST 1 V 49729 Fluoro Time: DAP (Gy m2): Air Kerma (mGy): (Continued) Technologist: Munira Hahn Date/Time: 09/26/2022 (0037) Denny Welch PrintD/T: S: 09/26/2022 (5680) PAGE 2 Signed ReportBASIC METABOLIC [id number] 21:20:00 Test Item Value Reference Range Interpretation Comments SODIUM (test code = 129 mmol/L 134-147 L NA) POTASSIUM (test 3.4 mmol/L 3.4-5.0 N code = K) CHLORIDE (test code 97 mmol/L 100-108 L = CL) CARBON DIOXIDE 27 mmol/L 21-32 N (test code = CO2) ANION GAP (test 5.0 GAP calc 4.0-15.0 N code = GAP) GLUCOSE (test code 114 MG/DL 70-110 H = GLU) BLOOD UREA NITROGEN 47 MG/DL 7-18 H (test code = BUN) GLOMERULAR 49 estGFR >60 L The Glomerular FILTRATION RATE Filtration R ate is a (test code = GFR) calculated parameterbased on serum Creatinin e, patient age and sex. GFR valuesless than 60 mL/min/1.73 squ are meters are hipolito cative ofChronic Kidne y Disease. Values less than 15 mL/min/1.73squa re meters indicate Kidney failure. The calculation for GFR is based on the CK D-EPI (2020) calculat ion. This formulais race indifferent and is the recommended for dewey for GFRby the [facility] Kidney Foundati on for Adults.The GFR will not calculate i f the sex is unknown or if thepatient's ag e is <18 years. CREATININE (test 1.1 MG/DL 0.6-1.0 H code = CREAT) CALCIUM (test code 8.3 MG/DL 8.5-10.1 L = CA) [id number] 21:20:00 Test Item Value Reference Range Interpretation Comments MAGNESIUM (test code = MAG) 1.7 MG/DL 1.8-2.4 L CBC W/AUTO [id number] 21:09:00 Test Item Value Reference Range Interpretation Comments WHITE BLOOD CELL (test code = 19.6 K/mm3 3.5-11.0 H WBC) RED BLOOD CELL (test code = 3.51 M/mm3 4.70-6.10 L RBC) HEMOGLOBIN (test code = HGB) 10.4 G/DL 10.4-14.9 N HEMATOCRIT (test code = HCT) 30.5 % 31.5-44.1 L MEAN CELL VOLUME (test code = 86.9 Fl 84.5-98.6 N MCV) MEAN CELL HGB (test code = MCH) 29.6 pg 27.0-34.2 N MEAN CELL HGB CONCETRATION 34.1 G/DL 31.5-34.0 H (test code = MCHC) RED CELL DISTRIBUTION WIDTH 13.6 SD 11.5-14.5 N (test code = RDW) PLATELET COUNT (test code = 191 K/mm3 150-450 N PLT) MEAN PLATELET VOLUME (test code 10.00 fL 7.0-10.5 N = MPV) NEUTROPHIL % (test code = NT%) 82.3 % 40-76 H IMMATURE GRANULOCYTE % (test 1.8 % 0.0-5.0 N code = IG%) LYMPHOCYTE % (test code = LY%) 5.4 % 20.5-51.1 L MONOCYTE % (test code = MO%) 8.4 % 1.7-9.3 N EOSINOPHIL % (test code = EO%) 1.6 % 0.0-6.0 N BASOPHIL % (test code = BA%) 0.5 % 0.0-2.0 N NUCLEATED RBC % (test code = 0.0 /100WBC% 0.0-1.0 N NRBC%) NEUTROPHIL # (test code = NT#) 16.1 K/mm3 1.8-7.6 H IMMATURE GRANULOCYTE # (test 0.35 x10 3/uL 0.00-0.03 H code = IG#) LYMPHOCYTE # (test code = LY#) 1.1 K/mm3 0.6-3.2 N MONOCYTE # (test code = MO#) 1.6 K/mm3 0.3-1.1 H EOSINOPHIL # (test code = EO#) 0.3 K/mm3 0.0-0.4 N BASOPHIL # (test code = BA#) 0.1 K/mm3 0.0-0.1 N NUCLEATED RBC # (test code = 0.0 K/mm3 0.0-0.1 N NRBC#) MANUAL DIFF REQUIRED (test code NO DIFF/SCN CRITERIA = MDIFF) GLUCOSE BEDSIDE [id number] 18:26:00 Test Item Value Reference Range Interpretation Comments GLUCOSE BEDSIDE TESTING (test code 121 mg/dL 70-110 H = GLUBED) CBC W/AUTO [id number] 13:09:00 Test Item Value Reference Range Interpretation Comments WHITE BLOOD CELL (test code = 15.3 K/mm3 3.5-11.0 H WBC) RED BLOOD CELL (test code = 4.03 M/mm3 4.70-6.10 L RBC) HEMOGLOBIN (test code = HGB) 12.0 G/DL 10.4-14.9 N HEMATOCRIT (test code = HCT) 35.9 % 31.5-44.1 N MEAN CELL VOLUME (test code = 89.1 Fl 84.5-98.6 N MCV) MEAN CELL HGB (test code = MCH) 29.8 pg 27.0-34.2 N MEAN CELL HGB CONCETRATION 33.4 G/DL 31.5-34.0 N (test code = MCHC) RED CELL DISTRIBUTION WIDTH 13.4 SD 11.5-14.5 N (test code = RDW) PLATELET COUNT (test code = 186 K/mm3 150-450 N PLT) MEAN PLATELET VOLUME (test code 10.00 fL 7.0-10.5 N = MPV) NEUTROPHIL % (test code = NT%) 86.2 % 40-76 H IMMATURE GRANULOCYTE % (test 0.5 % 0.0-5.0 N code = IG%) LYMPHOCYTE % (test code = LY%) 4.2 % 20.5-51.1 L MONOCYTE % (test code = MO%) 7.8 % 1.7-9.3 N EOSINOPHIL % (test code = EO%) 1.0 % 0.0-6.0 N BASOPHIL % (test code = BA%) 0.3 % 0.0-2.0 N NUCLEATED RBC % (test code = 0.0 /100WBC% 0.0-1.0 N NRBC%) NEUTROPHIL # (test code = NT#) 13.2 K/mm3 1.8-7.6 H IMMATURE GRANULOCYTE # (test 0.08 x10 3/uL 0.00-0.03 H code = IG#) LYMPHOCYTE # (test code = LY#) 0.7 K/mm3 0.6-3.2 N MONOCYTE # (test code = MO#) 1.2 K/mm3 0.3-1.1 H EOSINOPHIL # (test code = EO#) 0.2 K/mm3 0.0-0.4 N BASOPHIL # (test code = BA#) 0.1 K/mm3 0.0-0.1 N NUCLEATED RBC # (test code = 0.0 K/mm3 0.0-0.1 N NRBC#) MANUAL DIFF REQUIRED (test code NO DIFF/SCN CRITERIA = MDIFF) COMPREHENSIVE METABOLIC [id number] 13:07:00 Test Item Value Reference Range Interpretation Comments SODIUM (test code 132 mmol/L 134-147 L = NA) POTASSIUM (test 3.8 mmol/L 3.4-5.0 N code = K) CHLORIDE (test 97 mmol/L 100-108 L code = CL) CARBON DIOXIDE 30 mmol/L 21-32 N (test code = CO2) ANION GAP (test 5.0 GAP calc 4.0-15.0 N code = GAP) GLUCOSE (test code 115 MG/DL 70-110 H = GLU) BLOOD UREA 35 MG/DL 7-18 H NITROGEN (test code = BUN) GLOMERULAR >=60 max >60 The Glomerular FILTRATION RATE estimate estGFR Filtratio n Rate is a (test code = GFR) calculated parameterbased on serum Creatinin e, patient age and sex. GFR valuesless than 60 mL/min/1.73 square meters are hipolito cative ofChronic Kidne y Disease. Values less than 15 mL/min/1.73squa re meters indicate Kidney failure. The calculation for GFR is based on the CK D-EPI (2020) calculat ion. This formulais race indifferent and is the recommended formula for GFR by the National Kidney Foundation for Adults.The GFR will not calculate i f the sex is unknown or if thepatient's ag e is <18 years. CREATININE (test 0.9 MG/DL 0.6-1.0 N code = CREAT) TOTAL PROTEIN 6.1 G/DL 6.4-8.2 L (test code = PROT) ALBUMIN (test code 2.3 G/DL 3.4-5.0 L = ALB) GLOBULIN (test 3.8 GM/dL code = GLOB) ALBUMIN/GLOBULIN 0.6 RATIO 1.2-2.2 L RATIO (test code = A/G) CALCIUM (test code 9.3 MG/DL 8.5-10.1 N = CA) BILIRUBIN TOTAL 1.20 MG/DL 0.2-1.2 N (test code = BILT) SGOT/AST (test 133 Unit/L 15-37 H code = AST) SGPT/ALT (test 65 Unit/L 12-78 N code = ALT) ALKALINE 147 Unit/L 45-117 H PHOSPHATASE TOTAL (test code = ALKP) - XR CHEST 1 [id number] 09:19:00 [facility] : 1935 Sex: F Name: LESLEY BREAUX [facility] : 1935 Age/S: 87 / F [address] [address] [place] Unit #: [id number] Loc: [place] [address] Phys: Art Tavera MD Acct: [id number] Dis Date: Status: ADM IN PHONE #: [phone] Exam Date: 09/24/202228 FAX #: Reason: h/o chest tube EXAMS: CPT: [id number] XR CHEST 1V 18027 Fluoro Time: DAP (Gy m2): Air Kerma (mGy): Chest Radiograph History: h/o chest tube Comparison: September 23, 2022 Location: [facility] A single frontal view of the chest is submitted. The heart appearsunchanged in size. Pulmonary vasculature is unremarkable. There is a minimal patchy opacity in the left lung base. There is a tiny left pleural effusion. The bones appear unchanged. IMPRESSION: Minimalpatchy opacity left lung base. This could be due to atelectasis or pneumonia. There is a tiny left pleural effusion. Compared to the prior exam, there has been no significant change. at 0919 Reported and signed by: Terrence Chapman M.D. CC: Gissel Ortega MD; Art Tavera MD PAGE 1 Signed Report Name: LESLEY BREAUX [facility] : 1935 Age/S: 87 / F [address] [address] [place] Unit #: [id number] Loc: [place] [address] Phys: Art Tavera MD Acct: [id number] Dis Date: Status: ADM IN PHONE #: [phone] Date: 09/24/2022827 FAX #: Reason: h/o chest tube EXAMS: CPT: [id number] XR CHEST 1 V 14976 Fluoro Time: DAP (Gy m2): Air Kerma (mGy): (Continued) Technologist: Verena Frost, RT,(R),(CT) Trnscb Date/Time: 09/24/2022 (918) t.SDR.PMT Orig Print D/T: S: 09/24/2022 (7722) PAGE 2 Signed ReportGLUCOSE BEDSIDE [id number] 08:24:00 Test Item Value Reference Range Interpretation Comments GLUCOSE BEDSIDE TESTING (test code 112 mg/dL 70-110 H = GLUBED) GLUCOSE BEDSIDE [id number] 21:09:00 Test Item Value Reference Range Interpretation Comments GLUCOSE BEDSIDE TESTING (test code 144 mg/dL 70-110 H = GLUBED) - XR CHEST 1 [id number] 17:44:00 [facility] : 1935 Sex: F [facility] 1935 Age/S: 87 / F [address] [address] [place] Unit #: [id number] Loc: [place] [address] Phys: Art Tavera MD Acct: [id number] Dis Date: Status: ADM IN PHONE #: [phone] Exam Date: 09/23/2022 1728 FAX #: Reason: S/p Chest Tube removal EXAMS: CPT: [id number] XR CHEST 1 V 56001 Fluoro Time: DAP (Gy m2): Air Kerma (mGy): EXAMINATION: - XR CHEST 1 V CLINICAL IND ICATION: Female, 87 years year old with S/p Chest Tube removal COMPARISON: 09/22/2022 Location: T 18 FINDINGS: Single view(s) of the chest submitted. Support Devices: Interval removal of the left-sided pigtail catheter. Left subclavian pacemaker is stable. Heart: Cardiac silhouette is normal in size. Me diastinum: Mediastinal contours are unchanged. Lungs: Pulmonary vessels are enlarged consistent withcongestion. Stable bilateral opacities Pleura: Left costophrenic sulcus is minimally blunted, unchanged. No pneumothorax is present. Bones: Visualized skeleton is stable in appearance. IMPRESSION: Interval removal of the left-sided pigtail catheter. No pneumothorax. at 6791 Reported and signed by: Kiersten Padilla MD CC: Gissel Rice MD; Art Tavera MD PAGE 1 Signed Report Name: LESLEY BREAUX [facility] : 1935 Age/S: 87 / F [address] [address] [place] Unit #: [id number] Loc: [place] [address] Phys: Art Tavera MD Acct: [id number] Dis Date: Status: ADM IN PHONE #: [phone] Exam Date: 09/23/2022 1728 FAX #: Reason: S/p Chest Tube removal EXAMS: CPT: [id number] XR CHEST 1 V 42705 Fluoro Time: DAP (Gy m2): Air Kerma (mGy): (Continued) Technologist: Leigh Bright RT(R)(CT) Trnscb Date/Time: 09/23/2022 (9082) [id number] Orig Print D/T: S: 09/23/2022 (6415) PAGE 2 Signed ReportBASIC METABOLIC [id number] 04:07:00 Test Item Value Reference Range Interpretation Comments SODIUM (test code 135 mmol/L 134-147 N = NA) POTASSIUM (test 3.7 mmol/L 3.4-5.0 N code = K) CHLORIDE (test 101 mmol/L 100-108 N code = CL) CARBON DIOXIDE 31 mmol/L 21-32 N (test code = CO2) ANION GAP (test 3.0 GAP calc 4.0-15.0 L code = GAP) GLUCOSE (test code 121 MG/DL 70-110 H = GLU) BLOOD UREA 41 MG/DL 7-18 H NITROGEN (test code = BUN) GLOMERULAR >=60 max >60 The Glomerular FILTRATION RATE estimate estGFR Filtratio n Rate is a (test code = GFR) calculated parameterbased on serum Creatinin e, patient age and sex. GFR valuesless than 60 mL/min/1.73 square meters are hipolito cative ofChronic Kidne y Disease. Values less than 15 mL/min/1.73squa re meters indicate Kidney failure. The calculation for GFR is based on the CK D-EPI (2020) calculat ion. This formulais race indifferent and is the recommended formula for GFR by the National Kidney Foundation for Adults.The GFR will not calculate i f the sex is unknown or if thepatient's ag e is <18 years. CREATININE (test 0.9 MG/DL 0.6-1.0 N code = CREAT) CALCIUM (test code 8.6 MG/DL 8.5-10.1 N = CA) CBC W/AUTO [id number] 03:56:00 Test Item Value Reference Range Interpretation Comments WHITE BLOOD CELL (test code = 12.7 K/mm3 3.5-11.0 H WBC) RED BLOOD CELL (test code = 3.48 M/mm3 4.70-6.10 L RBC) HEMOGLOBIN (test code = HGB) 10.4 G/DL 10.4-14.9 N HEMATOCRIT (test code = HCT) 30.5 % 31.5-44.1 L MEAN CELL VOLUME (test code = 87.6 Fl 84.5-98.6 N MCV) MEAN CELL HGB (test code = MCH) 29.9 pg 27.0-34.2 N MEAN CELL HGB CONCETRATION 34.1 G/DL 31.5-34.0 H (test code = MCHC) RED CELL DISTRIBUTION WIDTH 13.9 SD 11.5-14.5 N (test code = RDW) PLATELET COUNT (test code = 166 K/mm3 150-450 N PLT) MEAN PLATELET VOLUME (test code 10.20 fL 7.0-10.5 N = MPV) NEUTROPHIL % (test code = NT%) 81.7 % 40-76 H IMMATURE GRANULOCYTE % (test 0.5 % 0.0-5.0 N code = IG%) LYMPHOCYTE % (test code = LY%) 7.1 % 20.5-51.1 L MONOCYTE % (test code = MO%) 6.9 % 1.7-9.3 N EOSINOPHIL % (test code = EO%) 3.6 % 0.0-6.0 N BASOPHIL % (test code = BA%) 0.2 % 0.0-2.0 N NUCLEATED RBC % (test code = 0.0 /100WBC% 0.0-1.0 N NRBC%) NEUTROPHIL # (test code = NT#) 10.4 K/mm3 1.8-7.6 H IMMATURE GRANULOCYTE # (test 0.06 x10 3/uL 0.00-0.03 H code = IG#) LYMPHOCYTE # (test code = LY#) 0.9 K/mm3 0.6-3.2 N MONOCYTE # (test code = MO#) 0.9 K/mm3 0.3-1.1 N EOSINOPHIL # (test code = EO#) 0.5 K/mm3 0.0-0.4 H BASOPHIL # (test code = BA#) 0.0 K/mm3 0.0-0.1 N NUCLEATED RBC # (test code = 0.0 K/mm3 0.0-0.1 N NRBC#) MANUAL DIFF REQUIRED (test code NO DIFF/SCN CRITERIA = MDIFF) GLUCOSE BEDSIDE [id number] 20:11:00 Test Item Value Reference Range Interpretation Comments GLUCOSE BEDSIDE TESTING (test code 140 mg/dL 70-110 H = GLUBED) - XR CHEST 1 [id number] 10:47:00 [facility] : 1935 Sex: F Name: LESLEY BREAUX [facility] : 1935 Age/S: 87 / F [address] [address] [place] Unit #: [id number] Loc: [place] [address] Phys: Mauro Arce MD Acct: [id number] Dis Date: Status: ADM IN PHONE #: [phone] Exam Date: 09/22/2022 1011 FAX #: Reason: chest pain EXAMS: CPT: [id number] XR CHEST 1 Q53630 Fluoro Time: DAP (Gy m2): Air Kerma (mGy): EXAMINATION: - XR CHEST 1 V CLINICAL INDICATION: Female, 87 years year old with chest pain COMPARISON: 09/21/2022 Location: T 18 FINDINGS: Single view(s)of the chest submitted. Support Devices: Stable Heart: Cardiac silhouette is stable in size. Mediastinum: Mediastinal contours are unchanged. Lungs: Pulmonary vessels are enlarged consistent with congestion, unchanged. Patchy bilateral opacities are stable. Emphysematous change noted. Pleura: No pleural effusion is identified. No pneumothorax is present. Bones: Degenerative changes are present in the thoracic spine. IMPRESSION: Stable chest. at 1047 Reported and signed by: Kiersten Padilla MD CC: Mauro Arce MD; Gissel Ortega MD PAGE 1 Signed Report Name: LESLEY BREAUX [place] : 1935 Age/S: 87 / F [address] [address] Unit #: [id number] Loc: [place] [address] Phys: Mauro Arce MD Acct: [id number] DisDate: Status: ADM IN PHONE #: [phone] Exam Date: 09/22/2022 1011 FAX #: Reason: chest pain EXAMS: CPT: [id number] XR CHEST 1 V 60417 Fluoro Time: DAP (Gy m2): Air Kerma (mGy): (Continued) Technologist: PARK HAN Trnmab Date/Time: 09/22/2022 (1047) [id number] Orig Print D/T: S: 09/22/2022 (2862) PAGE 2 Signed ReportGLUCOSE BEDSIDE [id number] 08:35:00 Test Item Value Reference Range Interpretation Comments GLUCOSE BEDSIDE TESTING (test code = 83 mg/dL 70-110 N GLUBED) CBC W/AUTO [id number] 06:14:00 Test Item Value Reference Range Interpretation Comments WHITE BLOOD CELL 11.6 K/mm3 3.5-11.0 H (test code = WBC) RED BLOOD CELL (test 3.58 M/mm3 4.70-6.10 L code = RBC) HEMOGLOBIN (test code 10.7 G/DL 10.4-14.9 N = HGB) HEMATOCRIT (test code 31.7 % 31.5-44.1 N = HCT) MEAN CELL VOLUME 88.5 Fl 84.5-98.6 N (test code = MCV) MEAN CELL HGB (test 29.9 pg 27.0-34.2 N code = MCH) MEAN CELL HGB 33.8 G/DL 31.5-34.0 N CONCETRATION (test code = MCHC) RED CELL DISTRIBUTION 13.9 SD 11.5-14.5 N WIDTH (test code = RDW) PLATELET COUNT (test 141 K/mm3 150-450 L code = PLT) MEAN PLATELET VOLUME 10.60 fL 7.0-10.5 H (test code = MPV) NEUTROPHIL % (test 86.8 % 40-76 H code = NT%) IMMATURE GRANULOCYTE 0.3 % 0.0-5.0 N % (test code = IG%) LYMPHOCYTE % (test 5.0 % 20.5-51.1 L code = LY%) MONOCYTE % (test code 6.8 % 1.7-9.3 N = MO%) EOSINOPHIL % (test 0.8 % 0.0-6.0 N code = EO%) BASOPHIL % (test code 0.3 % 0.0-2.0 N = BA%) NUCLEATED RBC % (test 0.0 /100WBC% 0.0-1.0 N code = NRBC%) NEUTROPHIL # (test 10.0 K/mm3 1.8-7.6 H code = NT#) IMMATURE GRANULOCYTE 0.04 x10 3/uL 0.00-0.03 H # (test code = IG#) LYMPHOCYTE # (test 0.6 K/mm3 0.6-3.2 N code = LY#) MONOCYTE # (test code 0.8 K/mm3 0.3-1.1 N = MO#) EOSINOPHIL # (test 0.1 K/mm3 0.0-0.4 N code = EO#) BASOPHIL # (test code 0.0 K/mm3 0.0-0.1 N = BA#) NUCLEATED RBC # (test 0.0 K/mm3 0.0-0.1 N code = NRBC#) MANUAL DIFF REQUIRED NO DIFF/SCN CRITERIA SLIDE R EVIEW (test code = MDIFF) CONSISTA NT WITH AUTO DIFFERENTI AL. BASIC METABOLIC [id number] 04:36:00 Test Item Value Reference Range Interpretation Comments SODIUM (test code = 139 mmol/L 134-147 N NA) POTASSIUM (test 3.9 mmol/L 3.4-5.0 N code = K) CHLORIDE (test code 103 mmol/L 100-108 N = CL) CARBON DIOXIDE 30 mmol/L 21-32 N (test code = CO2) ANION GAP (test 6.0 GAP calc 4.0-15.0 N code = GAP) GLUCOSE (test code 108 MG/DL 70-110 N = GLU) BLOOD UREA NITROGEN 39 MG/DL 7-18 H (test code = BUN) GLOMERULAR 55 estGFR >60 L The Glomerular FILTRATION RATE Filtration R ate is a (test code = GFR) calculated parameterbased on serum Creatinin e, patient age and sex. GFR valuesless than 60 mL/min/1.73 squ are meters are hipolito cative ofChronic Kidne y Disease. Values less than 15 mL/min/1.73squa re meters indicate Kidney failure. The calculation for GFR is based on the CK D-EPI (2020) calculat ion. This formulais race indifferent and is the recommended for dewey for GFRby the [facility] Kidney Foundati on for Adults.The GFR will not calculate i f the sex is unknown or if thepatient's ag e is <18 years. CREATININE (test 1.0 MG/DL 0.6-1.0 N code = CREAT) CALCIUM (test code 8.8 MG/DL 8.5-10.1 N = CA) HGB [id number] 20:26:00 Test Item Value Reference Range Interpretation Comments HEMOGLOBIN (test code = HGB) 9.7 G/DL 10.4-14.9 L HEMATOCRIT (test code = HCT) 28.8 % 31.5-44.1 L - [id number] 14:35:00 [facility] 1935 Sex: F Name: LESLEY BREAUX [facility] : 1935 Age/S: 87 / F [address] [address] Unit #: [id number] Loc: [place] [address] Phys: Gissel Ortega MD Cardiology Acct: [id number] Dis Date: Status: ADM IN PHONE #: [phone] Exam Date: 09/21/2022 1100 FAX #: Reason: LEFT PLEURAL EFFUSION EXAMS: CPT:[id number] [facility]MEDIASTINUM 29533 Ultrasound of the chest History: LEFT PLEURAL EFFUSION Comparison: None at this time Location: 5 A limited ultrasound of the left chest was performed to assess for the possibility of pleural effusion. IMPRESSION: There is a small to moderate complex left pleural effusion. at 1435 Reported and signed by: Terrence Chapman M.D. CC: Gissel Roldan Cardiology Jordan MCCABE Technologist: Shilpa Bauman Trnmab Date/Time: 09/21/2022 (1435) BrettPMT PAGE 1 Signed Report Name: LESLEY BREAUX [facility] : 1935 Age/S: 87 / [birth year] [address] [facility] [place] [facility] [place] Unit #: [id number] Loc: [place] [address] Phys: Gissel Ortega MD Cardiology Acct: [id number] Dis Date: Status: ADM IN PHONE #: [phone] Exam Date: 09/21/2022 1100 FAX #: Reason: LEFT PLEURAL EFFUSION EXAMS: CPT: [id number] [facility] [address]72 (Continued) Orig Print D/T: S: 09/21/2022 (1439) Probe: PAGE 2 Signed Report- XR CHEST 1 [id number] 13:10:00[facility] : 1935 Sex: F Name: LESLEY BREAUX [facility] : 1935 Age/S: 87 / F [id number] [address] [place] [address] [place] Unit #: [id number] Loc: [place] [address] Phys: Mauro Arce MD Acct: [id number] Dis Date: Status: ADM IN PHONE #: [phone] Exam Date: 09/21/2022 1224 FAX #: Reason: S/P CHEST TUBE PLACEMENT EXAMS: CPT: [id number] XR CHEST 1 V 99806 Fluoro Time: DAP (Gy m2): Air Kerma (mGy): EXAM: Portable chest x-ray, one view INDICATION: S/P CHEST TUBE PLACEMENT ADMITTING DIAGNOSIS: LOCATION CODE: C3 COMPARISON: September 20t 1101 hours TECHNIQUE: Single Portable AP upright view of the chest DISCUSSION: Patient is moderately rotated towards the right side. Catheter and Tubes: This a pigtail catheter projects of the leftupper chest. This is newly inserted since previous study. It appears to be in satisfactory position.Lung: Bilateral hyperinflation are noted. Increased lucency throughout suggest emphysematous changes. Previous study demonstrate scattered patchy density bilaterally which has demonstrate improvement. No pneumothorax No Pleural effusion Mediastinum: Unremarkable Cardiac: Unremarkable Osseous structures are within normal limits. IMPRESSION: 1. Emphysematous changes. 2. Improvement of bilateral infiltrate. 3. Interval placement of left pigtail catheter placement. No pneumothorax. at 1310 Reported and signed by: Bandar Kirby M.D. CC: Mauro Arce MD; Gissel Ortega MD PAGE 1 Signed Report Name: LESLEY BREAUX [facility] : 1935 Age/S: 87 / F [address] [address] [place] Unit #: [id number] Loc: [place], [place] [address]Nwou: Mauro Arce MD Acct: [id number] Dis Date: Status: ADM IN PHONE #: [phone] Exam Date: 09/21/2022 1224 FAX #: Reason: S/P CHEST TUBE PLACEMENT EXAMS: CPT: [id number] XR CHEST 1 V 77854 Fluoro Time: DAP (Gy m2): Air Kerma (mGy): (Continued) Technologist: Wilda Burr Trnscb Date/Time: 09/21/2022 (1310) [email or web address] Orig Print D/T: S: 09/21/2022 (1313) PAGE 2 Signed ReportBASIC METABOLIC [id number] 03:46:00 Test Item Value Reference Range Interpretation Comments SODIUM (test code 138 mmol/L 134-147 N = NA) POTASSIUM (test 3.9 mmol/L 3.4-5.0 N code = K) CHLORIDE (test 102 mmol/L 100-108 N code = CL) CARBON DIOXIDE 33 mmol/L 21-32 H (test code = CO2) ANION GAP (test 3.0 GAP calc 4.0-15.0 L code = GAP) GLUCOSE (test code 99 MG/DL 70-110 N = GLU) BLOOD UREA 29 MG/DL 7-18 H NITROGEN (test code = BUN) GLOMERULAR >=60 max >60 The Glomerular FILTRATION RATE estimate estGFR Filtratio n Rate is a (test code = GFR) calculated parameterbased on serum Creatinin e, patient age and sex. GFR valuesless than 60 mL/min/1.73 square meters are hipolito cative ofChronic Kidne y Disease. Values less than 15 mL/min/1.73squa re meters indicate Kidney failure. The calculation for GFR is based on the CK D-EPI (2020) calculat ion. This formulais race indifferent and is the recommended formula for GFR by the National Kid[employer] Foundation for Adults.The GFR will not calculate i f the sex is unknown or if thepatient's ag e is <18 years. CREATININE (test 0.9 MG/DL 0.6-1.0 N code = CREAT) CALCIUM (test code 8.7 MG/DL 8.5-10.1 N = CA) CBC W/AUTO [id number] 03:31:00 Test Item Value Reference Range Interpretation Comments WHITE BLOOD CELL (test code = 9.1 K/mm3 3.5-11.0 N WBC) RED BLOOD CELL (test code = 2.54 M/mm3 4.70-6.10 L RBC) HEMOGLOBIN (test code = HGB) 7.6 G/DL 10.4-14.9 L HEMATOCRIT (test code = HCT) 23.7 % 31.5-44.1 L MEAN CELL VOLUME (test code = 93.3 Fl 84.5-98.6 N MCV) MEAN CELL HGB (test code = MCH) 29.9 pg 27.0-34.2 N MEAN CELL HGB CONCETRATION 32.1 G/DL 31.5-34.0 N (test code = MCHC) RED CELL DISTRIBUTION WIDTH 13.3 SD 11.5-14.5 N (test code = RDW) PLATELET COUNT (test code = 141 K/mm3 150-450 L PLT) MEAN PLATELET VOLUME (test code 10.20 fL 7.0-10.5 N = MPV) NEUTROPHIL % (test code = NT%) 75.8 % 40-76 N IMMATURE GRANULOCYTE % (test 0.4 % 0.0-5.0 N code = IG%) LYMPHOCYTE % (test code = LY%) 12.3 % 20.5-51.1 L MONOCYTE % (test code = MO%) 7.9 % 1.7-9.3 N EOSINOPHIL % (test code = EO%) 3.3 % 0.0-6.0 N BASOPHIL % (test code = BA%) 0.3 % 0.0-2.0 N NUCLEATED RBC % (test code = 0.0 /100WBC% 0.0-1.0 N NRBC%) NEUTROPHIL # (test code = NT#) 6.9 K/mm3 1.8-7.6 N IMMATURE GRANULOCYTE # (test 0.04 x10 3/uL 0.00-0.03 H code = IG#) LYMPHOCYTE # (test code = LY#) 1.1 K/mm3 0.6-3.2 N MONOCYTE # (test code = MO#) 0.7 K/mm3 0.3-1.1 N EOSINOPHIL # (test code = EO#) 0.3 K/mm3 0.0-0.4 N BASOPHIL # (test code = BA#) 0.0 K/mm3 0.0-0.1 N NUCLEATED RBC # (test code = 0.0 K/mm3 0.0-0.1 N NRBC#) MANUAL DIFF REQUIRED (test code NO DIFF/SCN CRITERIA = MDIFF) HGB [id number] 20:15:00 Test Item Value Reference Range Interpretation Comments HEMOGLOBIN (test code = HGB) 8.7 G/DL 10.4-14.9 L HEMATOCRIT (test code = HCT) 26.2 % 31.5-44.1 L - CT ABD PELVIS W/O [id number] 14:37:00 [facility] 1935 Sex: F Name: LESLEY BREAUX [facility] : 1935 Age/S: 87 / F [address] [address] [place] Unit #: [id number] Loc: [place] [address] Phys: Mauro Arce MD Acct: [id number] Dis Date: Status: ADM IN PHONE #: [phone] Exam Date: 09/20/2022 0112 FAX #: Reason: anemia EXAMS: CPT: [id number] CT ABD PELVIS W/OCONT 41568 EXAMINATION: - CT ABD PELVIS W/O CONT COMPARISON: Limited comparison is made to chest CT p erformed the previous day HISTORY: Anemia LOCATION CODE: C3 TECHNIQUE: CT of the Abdomen and Pelviswithout intravenous contrast .Oral contrast was not administered Axial noncontrast enhanced images of the abdomen and pelvis were obtained and reviewed in soft tissue, bone and lung windows. Coronal and sagittal reconstructed images were also provided for review. All CT scans are performed using doseoptimization techniques as appropriate to a performed exam including one or more of the following: ?Automated exposure control ?Adjustment of the mA and/or kV according to patient size ?Use of iterative reconstruction technique FINDINGS ABDOMEN: Within the limits of this noncontrast CT the liver, spleen, pancreas and adrenal glands are normal. High density material in the gallbladder lumen is presentand most likely represents vicarious excreted contrast from the prior CT scan of the chest. Excretedcontrast material is also noted in both renal collecting systems. The kidneys are otherwise grossly n ormal. There is no free air, free fluid or lymphadenopathy. Atheromatous plaquing is present in the vessels. No suspicious bowel lesions are identified. Scattered tree-in-bud opacities in the right lower lung are stable in appearance as are less extensive but similar appearing changes in the visualized portions of the left lung. A small to moderate left pleural effusion with dependent high density material again noted, stable. Bones are osteopenic and degenerative changes are noted in the spine. FINDINGS PELVIS: Urinary bladder is filled with thick excreted contrast material but is otherwise unremarkable. The uterus and ovaries are not visualized presumed surgically absent. There is no free air, fr ee fluid or lymphadenopathy. Atheromatous plaquing is present in the vessels. No PAGE 1 Signed Report (CONTINUED) Name: LESLEY BREAUX [facility] : 1935 Age/S: 87 / F [address] [address] [place] Unit #: [id number] Loc: [place] [address] Phys: Mauro Arce MD Acct: [id number] Dis Date: Status: ADM IN PHONE #: [phone] Exam Date: 09/20/2022 1422 FAX #: Reason: anemia EXAMS: CPT: [id number] CT ABD PELVIS W/O CONT 59560 (Continued) suspicious bowel lesions are identified. Bones are osteopenicand mild osteoarthritic changes are seen in the hips and sacroiliac joints. IMPRESSION: No acute abnormality in the abdomen or pelvis Left pleural effusion with dependent high density material, and scattered tree-in-bud opacities in the visualized portions of both lower lungs, also stable. Other findings as above at 1437 Reported and signed by: Anabela Juares M.D. CC: Mauro Arce MD; Gissel Ortega MD Technologist:Justina Keenan RT(R) CTDI: DLP: Trnscb Date/Time: 09/20/2022 (1437) [email or web address] Orig Print D/T: S: 09/20/2022 (1446) PAGE 2 Signed ReportHGB [id number] 12:06:00 Test Item Value Reference Range Interpretation Comments HEMOGLOBIN (test code = HGB) 8.2 G/DL 10.4-14.9 L HEMATOCRIT (test code = HCT) 25.4 % 31.5-44.1 L PROTHROMBIN [id number] 12:06:00 Test Item Value Reference Range Interpretation Comments PT PATIENT (test 12.7 SECONDS 9.3-12.9 N code = PTP) INTERNATIONAL NORMAL 1.14 INR Unit 0.8-1.2 N TARGE T INR BY RATIO (test code = INDICATIO N Indication INR) INR1. Prophylax is of venous thrombos is 2.0 - 3.0 (orthoped ic surgery), Proph ylaxis of venous throm bosis (other than hig h-risk surgery), Treat ment of Deep Vein Thrombosis/Pulm onary Embolism, Preve ntion of systemic emb olism - Tissue heart va lves, Acute Myocardia l Infarction (to prevent systemic emboli sm), Valvular heart disease, Acute Myocardial Infa rction (to prevent sys temic embolism), Valv ular heart disease, Atrial Fibrillation, Bileaflet mecha nical valve in aortic position.2. Mec hanical prosthetic valv es (high risk), 2. 5 - 3.5 Presence of Lup us Anticoagulant o r Antiphospholipi d Antibodies, Pre vention of systemic emb olism - Acute Myocardia l Infarction (to prevent recurrent infar ct). Comment: FOR L THORACENTESIS 2.5MG BID ELIQUIS - LAST USED 09/14/22 ON HOME MED CHART- XR CHEST 1 [id number] 11:20:00 [facility] : 1935 Sex: F Name: LESLEY BREAUX [facility] : 1935 Age/S: 87 / F [address] [address] [place] [address] [place] Unit #: [id number] Loc: [place] [address] Phys: Ora Mackay Acct: [id number] Dis Date: Status: ADM IN PHONE #: [phone] Exam Date: 09/20/2022 1055 FAX #: Reason: SOB, POSS HEMOTHORAX ON CT EXAMS: CPT: [id number] XRCHEST 1 V 77458 Fluoro Time: DAP (Gy m2): Air Kerma (mGy): Chest Radiograph History: SOB, POSS HEMOTHORAX ON CT Comparison: None at this time Location: H45 A single frontal view of the chest is submitted. The heart appears unchanged in size. Pulmonary vasculature is unremarkable. There are minimal patchy opacities in the lungs bilaterally. There is a small left pleural effusion. The bones appear unc hanged. IMPRESSION: There are minimal patchy opacities in the lungs bilaterally. This could be due to pneumonia. There is a small left pleural effusion. Compared to the prior exam, there has been little change. at 1120 Reported and signed by: Terrence Chapman M.D. CC: Gissel Ortega MD; Ora OCHOA PAGE 1 Signed Report Name: LESLEY BREAUX [facility] : 1935 Age/S: 87 / F [address] [address] [place] Unit #: [id number] Loc: [place] [address] Phys: Ora Mackay Acct: [id number] Dis Date: Status: ADM IN PHONE #: [phone] Exam Date: 09/20/2022 1055 FAX #: Reason: SOB, POSS HEMOTHORAX ON CT EXAMS: CPT: [id number] XR CHEST 1 V 50023 Fluoro Time: DAP (Gy m2): Air Kerma (mGy): (Continued) Technologist: RT Almas,(R),(CT) Trnscb Date/Time: 09/20/2022 (112) [email or web address] Orig Print D/T: S: 09/20/2022 (1123) PAGE 2 Signed ReportBASIC METABOLIC [id number] 04:49:00 Test Item Value Reference Range Interpretation Comments SODIUM (test code = 142 mmol/L 134-147 N NA) POTASSIUM (test 3.7 mmol/L 3.4-5.0 N code = K) CHLORIDE (test code 104 mmol/L 100-108 N = CL) CARBON DIOXIDE 36 mmol/L 21-32 H (test code = CO2) ANION GAP (test 2.0 GAP calc 4.0-15.0 L code = GAP) GLUCOSE (test code 111 MG/DL 70-110 H = GLU) BLOOD UREA NITROGEN 28 MG/DL 7-18 H (test code = BUN) GLOMERULAR 44 estGFR >60 L The Glomerular FILTRATION RATE Filtration R ate is a (test code = GFR) calculated parameterbased on serum Creatinin e, patient age and sex. GFR valuesless than 60 mL/min/1.73 squ are meters are hipolito cative ofChronic Kidne y Disease. Values less than 15 mL/min/1.73squa re meters indicate Kidney failure. The calculation for GFR is based on the CK D-EPI (2020) calculat ion. This formulais race indifferent and is the recommended for dewey for GFRby the N atreplaced by [facility] on for Adults.The GFR will not calculate i f the sex is unknown or if thepatient's ag e is <18 years. CREATININE (test 1.2 MG/DL 0.6-1.0 H code = CREAT) CALCIUM (test code 8.6 MG/DL 8.5-10.1 N = CA) CBC W/AUTO [id number] 04:20:00 Test Item Value Reference Range Interpretation Comments WHITE BLOOD CELL (test code = 9.5 K/mm3 3.5-11.0 N WBC) RED BLOOD CELL (test code = 2.69 M/mm3 4.70-6.10 L RBC) HEMOGLOBIN (test code = HGB) 8.1 G/DL 10.4-14.9 L HEMATOCRIT (test code = HCT) 24.6 % 31.5-44.1 L MEAN CELL VOLUME (test code = 91.4 Fl 84.5-98.6 N MCV) MEAN CELL HGB (test code = MCH) 30.1 pg 27.0-34.2 N MEAN CELL HGB CONCETRATION 32.9 G/DL 31.5-34.0 N (test code = MCHC) RED CELL DISTRIBUTION WIDTH 13.5 SD 11.5-14.5 N (test code = RDW) PLATELET COUNT (test code = 154 K/mm3 150-450 N PLT) MEAN PLATELET VOLUME (test code 10.60 fL 7.0-10.5 H = MPV) NEUTROPHIL % (test code = NT%) 72.8 % 40-76 N IMMATURE GRANULOCYTE % (test 0.4 % 0.0-5.0 N code = IG%) LYMPHOCYTE % (test code = LY%) 14.0 % 20.5-51.1 L MONOCYTE % (test code = MO%) 8.6 % 1.7-9.3 N EOSINOPHIL % (test code = EO%) 3.8 % 0.0-6.0 N BASOPHIL % (test code = BA%) 0.4 % 0.0-2.0 N NUCLEATED RBC % (test code = 0.0 /100WBC% 0.0-1.0 N NRBC%) NEUTROPHIL # (test code = NT#) 6.9 K/mm3 1.8-7.6 N IMMATURE GRANULOCYTE # (test 0.04 x10 3/uL 0.00-0.03 H code = IG#) LYMPHOCYTE # (test code = LY#) 1.3 K/mm3 0.6-3.2 N MONOCYTE # (test code = MO#) 0.8 K/mm3 0.3-1.1 N EOSINOPHIL # (test code = EO#) 0.4 K/mm3 0.0-0.4 N BASOPHIL # (test code = BA#) 0.0 K/mm3 0.0-0.1 N NUCLEATED RBC # (test code = 0.0 K/mm3 0.0-0.1 N NRBC#) MANUAL DIFF REQUIRED (test code NO DIFF/SCN CRITERIA = MDIFF) - CTA CHEST FOR [id number] 11:25:00 [facility] : 1935 Sex: F Name: LESLEY BREAUX [facility] : 1935 Age/S: 87 / F [address] [address] [place] Unit #: [id number] Loc: [place] [address] Phys: Ora Mackay PA Acct: [id number] Dis Date: Status: ADM IN PHONE #: [phone] Exam Date: 09/19/2022 1040 FAX #: Reason: CHEST PAIN, SOB, R/O PE EXAMS: CPT: [id number] [place] [address] EXAM: CTA CHEST WITH CONTRAST. INDICATION: Chest pain, shortness of breath COMPARISON: Chest radiograph dated September 19, 2022 TECHNIQUE: Axial CTA imaging of the chest was obtained with administration of intravenous contrast. Coronal and sagittal MIP images were submitted for review. IVcontrast: 100 mL of Isovue-370 DLP: 142.34 mGy-cm FINDINGS: No filling defect is identified within the pulmonary vasculature. The main pulmonary artery is normal in size. The thoracic aorta and great vessels are normal. The heart size is normal. No pericardial effusion. There are patchy areas of tree-in-bud nodular opacities throughout both lungs most consistent with an infectious/inflammatory process. There is a moderate left pleural effusion with layering hyperdensity. The trachea and central airw ays are patent. No mediastinal, hilar, supraclavicular, or axillary adenopathy is identified. The thyroid gland is normal in appearance. The upper abdomen is unremarkable. No acute osseous abnormality of the thoracic spine. IMPRESSION: No pulmonary embolus is identified. Moderate left pleural effusionwhich appears complex with layering hyperdensity. This may represent hemothorax however fluid sampling should be considered. Patchy areas of tree-in-bud nodular opacities throughout both lungs is most consistent with an acute infectious/inflammatory process. LOCATION: B2 This CT exam was performed according to our departmental dose optimization program, which includes automated exposure control, adjustment of the mA and or kV according to patient size and/or use of iterative reconstruction technique. PAGE 1 Signed Report (CONTINUED) Name: LESLEY BREAUX [facility] : 1935 Age/S: 87 / [id number] [place] Unit #: [id number] Loc: [place] [address] Phys: Ora Mackay Acct: [id number] Dis Date: Status: ADM IN PHONE #: [phone] Exam Date: 09/19/2022 1040 FAX #: Reason: CHEST PAIN, SOB, R/O PE EXAMS: CPT: [id number] [place] [address] (Continued) at 1125 Reported and signed by: Lay Beltrán M.D. CC: Gissel FCardiology Jordan MCCABE; Ora OCHOA Technologist:Justina Keenan, RT(R) CTDI: DLP: Trnscb Date/Time: 09/19/2022 (1124) 16 Orig Print D/T: S: 09/19/2022 (1123) PAGE 2 Signed Report- XR CHEST 1 [id number] 06:11:00 [facility] : 1935 Sex: F Name: LESLEY BREAUX [facility] : 1935 Age/S: 87 / F [address] [address] [place] Unit #: [id number] Loc: [place] [address] Phys: Gissel Ortega MD Cardiology Acct: [id number] Dis Date: Status: ADM IN PHONE #: [phone] Exam Date: 09/19/2022 0252 FAX #: Reason: Post implanted device EXAMS: CPT: [id number] XR CHEST 1 V 45208 Fluoro Time: DAP (Gy m2): Air Kerma (mGy): Location: H 77 EXAM: - XR CHEST 1 V DATE: 09/19/2022 12:01 PM HISTORY: Post implanted device COMPARISON: Chest x-ray 09/18/2022 FINDINGS: Trace left pleural effusion versus thickening. Subsegmental atelectasis versus scarring in the left lung base. The right lung is clear. No pneumothorax. The cardiovascular silhouette is within no rmal limits. The right subclavian central venous line has been removed. Stable position of the left-sided pacemaker. IMPRESSION: Interval removal of the right sided central venous line at 0611 Reported and signed by: Mariela Mancia M.D. CC: Gissel Roldan Cardiology Jordan MCCABE PAGE 1 Signed Report Name: LESLEY BREAUX [facility] : 1935 Age/S: 87 / F [address] [address] [place] Unit #: [id number] Loc: [place] [address] Phys: Gissel Ortega MD Cardiology Acct: [id number] Dis Date: Status: ADM IN PHONE #: [phone] Exam Date: 09/19/2022251 FAX #: Reason: Post implanted device EXAMS: CPT: [id number] XR CHEST 1 V 34502 Fluoro Time: DAP (Gy m2): Air Kerma (mGy): (Continued) Technologist: Adali Chapman, RT(R)(CT) Trnscb Date/Time: 09/19/2022 (610) t.KARI Orig Print D/T: S: 09/19/2022 (14) PAGE 2 Signed ReportBASIC METABOLIC [id number] 05:17:00 Test Item Value Reference Range Interpretation Comments SODIUM (test code = 142 mmol/L 134-147 N NA) POTASSIUM (test 3.6 mmol/L 3.4-5.0 N code = K) CHLORIDE (test code 107 mmol/L 100-108 N = CL) CARBON DIOXIDE 31 mmol/L 21-32 N (test code = CO2) ANION GAP (test 4.0 GAP calc 4.0-15.0 N code = GAP) GLUCOSE (test code 99 MG/DL 70-110 N = GLU) BLOOD UREA NITROGEN 31 MG/DL 7-18 H (test code = BUN) GLOMERULAR 49 estGFR >60 L The Glomerular FILTRATION RATE Filtration R ate is a (test code = GFR) calculated parameterbased on serum Creatinin e, patient age and sex. GFR valuesless than 60 mL/min/1.73 squ are meters are hipolito cative ofChronic Kidne y Disease. Values less than 15 mL/min/1.73squa re meters indicate Kidney failure. The calculation for GFR is based on the CK D-EPI (2020) calculat ion. This formulais race indifferent and is the recommended for dewey for GFRby the [facility] Kidney Foundati on for Adults.The GFR will not calculate i f the sex is unknown or if thepatient's ag e is <18 years. CREATININE (test 1.1 MG/DL 0.6-1.0 H code = CREAT) CALCIUM (test code 8.6 MG/DL 8.5-10.1 N = CA) CBC W/AUTO [id number] 04:50:00 Test Item Value Reference Range Interpretation Comments WHITE BLOOD CELL (test code = 6.0 K/mm3 3.5-11.0 N WBC) RED BLOOD CELL (test code = 3.00 M/mm3 4.70-6.10 L RBC) HEMOGLOBIN (test code = HGB) 9.0 G/DL 10.4-14.9 L HEMATOCRIT (test code = HCT) 27.7 % 31.5-44.1 L MEAN CELL VOLUME (test code = 92.3 Fl 84.5-98.6 N MCV) MEAN CELL HGB (test code = MCH) 30.0 pg 27.0-34.2 N MEAN CELL HGB CONCETRATION 32.5 G/DL 31.5-34.0 N (test code = MCHC) RED CELL DISTRIBUTION WIDTH 13.4 SD 11.5-14.5 N (test code = RDW) PLATELET COUNT (test code = 148 K/mm3 150-450 L PLT) MEAN PLATELET VOLUME (test code 10.30 fL 7.0-10.5 N = MPV) NEUTROPHIL % (test code = NT%) 66.3 % 40-76 N IMMATURE GRANULOCYTE % (test 0.3 % 0.0-5.0 N code = IG%) LYMPHOCYTE % (test code = LY%) 18.8 % 20.5-51.1 L MONOCYTE % (test code = MO%) 7.5 % 1.7-9.3 N EOSINOPHIL % (test code = EO%) 6.3 % 0.0-6.0 H BASOPHIL % (test code = BA%) 0.8 % 0.0-2.0 N NUCLEATED RBC % (test code = 0.0 /100WBC% 0.0-1.0 N NRBC%) NEUTROPHIL # (test code = NT#) 4.0 K/mm3 1.8-7.6 N IMMATURE GRANULOCYTE # (test 0.02 x10 3/uL 0.00-0.03 N code = IG#) LYMPHOCYTE # (test code = LY#) 1.1 K/mm3 0.6-3.2 N MONOCYTE # (test code = MO#) 0.5 K/mm3 0.3-1.1 N EOSINOPHIL # (test code = EO#) 0.4 K/mm3 0.0-0.4 N BASOPHIL # (test code = BA#) 0.1 K/mm3 0.0-0.1 N NUCLEATED RBC # (test code = 0.0 K/mm3 0.0-0.1 N NRBC#) MANUAL DIFF REQUIRED (test code NO DIFF/SCN CRITERIA = MDIFF) - CHEST 1 [id number] 12:45:00 [facility] : 1935 Sex: F Name: LESLEY BREAUX [facility] : 1935 Age/S: 87 / F [address] [address] [place] Unit #: [id number] Loc: [place] [address] Phys: Gissel Ortega MD Cardiology Acct: [id number] Dis Date: Status: ADM IN PHONE #: [phone] Exam Date: 09/18/2022 1208 FAX #: Reason: Post implanted device EXAMS: CPT: [id number] XR CHEST 1 V 07946 Fluoro Time: DAP (Gy m2): Air Kerma (mGy): EXAM: CHEST ONE VIEW INDICATION: Post implanted device LOCATION: B2 COMPARISON: None available TECHNIQUE: AP view of the chest FINDINGS: The heart size is normal. There is a left cardiac pacing device with no apparent discontinuityof the leads. There are mild congestive changes bilaterally. No pneumothorax or pleural effusion is identified. The osseous structures are normal. IMPRESSION: Mild congestive changes bilaterally. at 1245 Reported and signed by: Lay Beltrán M.D. CC: Gissel Roldan Cardiology Jordan MCCABE PAGE 1 Signed Report Name: LESLEY BREAUX [place] : 1935 Age/S: 87 / F [facility] Unit #: [id number] Loc: [place] [address] Phys: Gissel Ortega MD Cardiology Acct: [id number] Dis Date: Status: ADM IN PHONE #: [phone] Date: 09/18/2022 1208 FAX #: Reason: Post implanted device EXAMS: CPT: [id number] XR CHEST 1 V 33171 Fluoro Time: DAP (Gy m2): Air Kerma (mGy): (Continued) Technologist: RT Paolo(R) Trncurtb Date/Time: 09/18/2022 (9401) 16 Orig Print D/T: S: 09/18/2022 (3639) PAGE 2 Signed ReportPROTHROMBIN [id number] 08:52:00 Test Item Value Reference Range Interpretation Comments PT PATIENT (test 11.6 SECONDS 9.3-12.9 N code = PTP) INTERNATIONAL NORMAL 1.04 INR Unit 0.8-1.2 N TARGE T INR BY RATIO (test code = INDICATIO N Indication INR) INR1. Prophylax is of venous thrombos is 2.0 - 3.0 (orthoped ic surgery), Proph ylaxis of venous throm bosis (other than hig h-risk surgery), Treat ment of Deep Vein Thrombosis/Pulm onary Embolism, Preve ntion of systemic emb olism - Tissue heart va lves, Acute Myocardia l Infarction (to prevent systemic emboli sm), Valvular heart disease, Acute Myocardial Infa rction (to prevent sys temic embolism), Valv ular heart disease, Atrial Fibrillation, Bileaflet mecha nical valve in aortic position.2. Mec hanical prosthetic valv es (high risk), 2. 5 - 3.5 Presence of Lup us Anticoagulant o r Antiphospholipi d Antibodies, Pre vention of systemic emb olism - Acute Myocardia l Infarction (to prevent recurrent infar ct). COMPREHENSIVE METABOLIC [id number] 08:50:00 Test Item Value Reference Range Interpretation Comments SODIUM (test code = 140 mmol/L 134-147 N NA) POTASSIUM (test 3.7 mmol/L 3.4-5.0 N code = K) CHLORIDE (test code 104 mmol/L 100-108 N = CL) CARBON DIOXIDE 32 mmol/L 21-32 N (test code = CO2) ANION GAP (test 4.0 GAP calc 4.0-15.0 N code = GAP) GLUCOSE (test code 95 MG/DL 70-110 N = GLU) BLOOD UREA NITROGEN 20 MG/DL 7-18 H (test code = BUN) GLOMERULAR 55 estGFR >60 L The Glomerular FILTRATION RATE Filtration R ate is a (test code = GFR) calculated parameterbased on serum Creatinin e, patient age and sex. GFR valuesless than 60 mL/min/1.73 squ are meters are hipolito cative ofChronic Kidne y Disease. Values less than 15 mL/min/1.73squa re meters indicate Kidney failure. The calculation for GFR is based on the CK D-EPI (2020) calculat ion. This formulais race indifferent and is the recommended for dewey for GFRby the N ational Kidney Foundati on for Adults.The GFR will not calculate i f the sex is unknown or if thepatient's ag e is <18 years. CREATININE (test 1.0 MG/DL 0.6-1.0 N code = CREAT) TOTAL PROTEIN (test 7.6 G/DL 6.4-8.2 N code = PROT) ALBUMIN (test code 3.6 G/DL 3.4-5.0 N = ALB) GLOBULIN (test code 4.0 GM/dL = GLOB) ALBUMIN/GLOBULIN 0.9 RATIO 1.2-2.2 L RATIO (test code = A/G) CALCIUM (test code 9.9 MG/DL 8.5-10.1 N = CA) BILIRUBIN TOTAL 1.10 MG/DL 0.2-1.2 N (test code = BILT) SGOT/AST (test code 21 Unit/L 15-37 N = AST) SGPT/ALT (test code 27 Unit/L 12-78 N = ALT) ALKALINE 99 Unit/L 45-117 N PHOSPHATASE TOTAL (test code = ALKP) LIPID PROFILE (CORONARY RISK)2022-09-18 08:50:00 Test Item Value Reference Range Interpretation Comments TRIGLYCERIDES (test 100 MG/DL 0-150 N code = TRIG) CHOLESTEROL (test 148 MG/DL 133-200 N code = CHOL) CHOLESTEROL/HDL 1.87 RATIO See_Comment RISK ASSOCIA SHAZIA WITH RATIO (test code = CHOL/HDL RATIOS: RISK CHOLHDL) MALE FEMALE1/2 AVERAGE 3.43 3.27AVERAG E 4.97 4.442X AVERAGE 9.55 7.053X AVERAGE 23.39 11.04 NOTE THAT THE REFERENCE VALUE IS RELATED TO RISK LEVELS ASRECOMMENDED B Y [facility] . [Automated mess age] The system which ge nerated this result tra nsmitted reference range : 0-. The reference range was not used to interpr et this result as normal/abnormal . HDL CHOLESTEROL 79 MG/DL 40-59 H (test code = HDL) NON-HDL CHOLESTEROL 69 mg/dL <130 (test code = NHDL) LIPOPROTEIN LDL 58 MG/DL 0-129 N <100 OPTIMA L100 - 129 (test code = LDL) NEAR OPTIM AL/ABOVE [id number] - 15 9 [id number] - 189 HIGH>OR= 190 VE RY HIGHNOTE THAT G UIDELINES ARE PROVIDED BY NATIONAL CHOLESTEROLEDUC ATION PROGRAM ADULT T REATMENT PANEL III LDL/HDL (test code 0.73 Ratio See_Comment L [Automat ed message] The = LDL/HDL) system which ge nerated this result tra nsmitted reference range : 1.48-3.22 Avg. The reference range was not used to interpr et this result as normal/abnormal . [id number] 08:50:00 Test Item Value Reference Range Interpretation Comments MAGNESIUM (test code = MAG) 2.1 MG/DL 1.8-2.4 N CBC W/AUTO [id number] 08:50:00 Test Item Value Reference Range Interpretation Comments WHITE BLOOD CELL (test code = 5.6 K/mm3 3.5-11.0 N WBC) RED BLOOD CELL (test code = 4.11 M/mm3 4.70-6.10 L RBC) HEMOGLOBIN (test code = HGB) 12.2 G/DL 10.4-14.9 N HEMATOCRIT (test code = HCT) 37.4 % 31.5-44.1 N MEAN CELL VOLUME (test code = 91.0 Fl 84.5-98.6 N MCV) MEAN CELL HGB (test code = MCH) 29.7 pg 27.0-34.2 N MEAN CELL HGB CONCETRATION 32.6 G/DL 31.5-34.0 N (test code = MCHC) RED CELL DISTRIBUTION WIDTH 13.1 SD 11.5-14.5 N (test code = RDW) PLATELET COUNT (test code = 217 K/mm3 150-450 N PLT) MEAN PLATELET VOLUME (test code 10.00 fL 7.0-10.5 N = MPV) NEUTROPHIL % (test code = NT%) 61.2 % 40-76 N IMMATURE GRANULOCYTE % (test 0.4 % 0.0-5.0 N code = IG%) LYMPHOCYTE % (test code = LY%) 24.0 % 20.5-51.1 N MONOCYTE % (test code = MO%) 6.1 % 1.7-9.3 N EOSINOPHIL % (test code = EO%) 7.2 % 0.0-6.0 H BASOPHIL % (test code = BA%) 1.1 % 0.0-2.0 N NUCLEATED RBC % (test code = 0.0 /100WBC% 0.0-1.0 N NRBC%) NEUTROPHIL # (test code = NT#) 3.4 K/mm3 1.8-7.6 N IMMATURE GRANULOCYTE # (test 0.02 x10 3/uL 0.00-0.03 N code = IG#) LYMPHOCYTE # (test code = LY#) 1.3 K/mm3 0.6-3.2 N MONOCYTE # (test code = MO#) 0.3 K/mm3 0.3-1.1 N EOSINOPHIL # (test code = EO#) 0.4 K/mm3 0.0-0.4 N BASOPHIL # (test code = BA#) 0.1 K/mm3 0.0-0.1 N NUCLEATED RBC # (test code = 0.0 K/mm3 0.0-0.1 N NRBC#) MANUAL DIFF REQUIRED (test code NO DIFF/SCN CRITERIA = MDIFF) TROPONIN [id number] 01:50:28 Test Item Value Reference Interpretation Comments Range TROPONIN I (test 0.006 ng/mL See_Comment [Automated code = 3823158888) message] The system which generated this result transmitted reference range : <=0.034. The reference range was not used to interpret this result as normal/abnormal . PAL (test code = Reference (Normal) PAL) Range (defined by the 99th percentile reference [...] biotin. Lab Interpretation Normal (test code = 12048-6) [id number] 01:47:31 Test Item Value Reference Range Interpretation Comments NT-proBNP (test code 488 pg/mL See_Comment H [Autom ated = 3758062486) message] The system which generated this result transmitted reference range : <=450. The reference range was not used to interpret this result as normal/abnormal . PAL (test code = PAL) Biotin has been reported to cause a negative bias, interpret results relative to patient's use of biotin. Lab Interpretation Abnormal (test code = 12501-1) [facility]. METABOLIC PANEL ([id number])2021-10-16 01:34:28 Test Item Value Reference Range Interpretation Comments NA (test code = 135 mmol/L 135-145 8420319563) K (test code = 3.6 mmol/L 3.5-5 3708163667) CL (test code = 102 mmol/L 98-108 0104045532) CO2 TOTAL (test code = 25 mmol/L 23-31 4062410141) AGAP (test code = 2-16 6983575872) BUN (test code = 15 mg/dL 7-23 4614657797) GLUCOSE (test code = 92 mg/dL 70-110 3826548445) CREATININE (test code = 0.91 mg/dL 0.5-1.04 1546888508) TOTAL BILI (test code = 1.2 mg/dL 0.1-1.1 H 4730632867) CALCIUM (test code = 9.2 mg/dL 8.6-10.6 3233117906) T PROTEIN (test code = 6.6 g/dL 6.3-8.2 2284982624) ALBUMIN (test code = 4.4 g/dL 3.5-5 1828494768) ALK PHOS (test code = 95 U/L 34-122 0758202067) ALTv (test code = 22 U/L 5-35 1742-6) AST(SGOT) (test code = 34 U/L 13-40 0125900895) eGFR (test code = mL/min/1.73m2 5545209544) PAL (test code = PAL) Association of Glomerular Filtration Rate (GFR) and [...] tests). Lab Interpretation Abnormal (test code = 29026-7) [facility] WITH [id number] 01:21:05 Test Item Value Reference Range Interpretation Comments WBC (test code = See_Comment [Automated 9290-2) message] The sy stem which generated this result transmitted reference range : 4.30 - 11.10 10*3/?L. The reference range was not used to interpret this result as normal/abnormal . RBC (test code = See_Comment [Automated 975-8) message] The sy stem which generated this [...] RDW-SD (test code = 40.9 fL 39-49.9 59340-5) RDW-CV (test code = 12.2 % 12-15.5 788-0) PLT (test code = See_Comment [Automated 777-3) message] The sy stem which generated this result transmitted reference range : 166 - 358 10*3/ ?L. The reference r manav was not used to interpret this result as normal/abnormal . MPV (test code = 9.9 fL 9.5-12.9 11455-6) NRBC/100 WBC (test See_Comment [Automat ed code = 3076319022) message] The system which generated this result transmitted reference range : 0.0 - 10.0 /100 WBCs. The refer ence range was not u sed to interpret th is result as normal/abnormal . NRBC x10^3 (test code See_Comment [Auto mated = 0335552627) message] The s ystem which generated this result transmitted reference range : 10*3/?L. The reference range was not used to interpret this result as normal/abnormal . GRAN MAT (NEUT) % 76.4 % (test code = 770-8) IMM GRAN % (test code 0.20 % = 1144444370) LYMPH % (test code = 8.3 % 736-9) MONO % (test code = 9.5 % 5905-5) EOS % (test code = 4.4 % 713-8) BASO % (test code = 1.2 % 706-2) GRAN MAT x10^3(ANC) 4.50 10*3/uL 1.88-7.09 (test code = 0518965756) IMM GRAN x10^3 (test 0-0.06 code = 3033525500) LYMPH x10^3 (test code 0.49 10*3/uL 1.32-3.29 L = 731-0) MONO x10^3 (test code 0.56 10*3/uL 0.33-0.92 = 742-7) EOS x10^3 (test code = 0.26 10*3/uL 0.03-0.39 711-2) BASO x10^3 (test code 0.07 10*3/uL 0.01-0.07 = 704-7) Lab Interpretation Abnormal (test code = 69878-5) [facility] METABOLIC PANEL (NA, K, CL, CO2, GLUCOSE, BUN, CREATININE, CA)2021-10-05 10:08:40 Test Item Value Reference Range Interpretation Comments NA (test code = 135 mmol/L 135-145 5635346439) K (test code = 3.9 mmol/L 3.5-5 8048268508) CL (test code = 106 mmol/L 98-108 3439670119) CO2 TOTAL (test code = 27 mmol/L 23-31 7065917133) AGAP (test code = 2-16 7138883358) BUN (test code = 17 mg/dL 7-23 2908868051) GLUCOSE (test code = 100 mg/dL 70-110 3832847400) CREATININE (test code = 1.21 mg/dL 0.5-1.04 H 5232850678) CALCIUM (test code = 8.7 mg/dL 8.6-10.6 3584205525) eGFR (test code = mL/min/1.73m2 1788805591) PAL (test code = PAL) Association of Glomerular Filtration Rate (GFR) and [...] tests). Lab Interpretation Abnormal (test code = 40860-9) [facility] 10:08:40 Test Item Value Reference Range Interpretation Comments MAGNESIUM (test code = 1927183849) 1.8 mg/dL 1.7-2.4 Lab Interpretation (test code = Normal 51816-1) [facility] WITHOUT [id number] 09:30:59 Test Item Value Reference Range Interpretation Comments WBC (test code = 6690-2) See_Comment [A utomated message] The system [employer] generated this result transmit shazia reference range : 4.30 - 11.10 10*3/?L. The reference range was not used to interpret this result as normal/abnormal . RBC (test code = 789-8) See_Comment L [Au tomated message] The system [employer] generated this result transmit shazia reference range [...] 777-3) See_Comment [Au tomated message] The system [employer] generated this result transmit shazia reference range : 166 - 358 10*3/?L. The reference range was not used to interpret this result as normal/abnormal . MPV (test code = 10.0 fL 9.5-12.9 49212-7) RDW-CV (test code = 12.1 % 12-15.5 788-0) RDW-SD (test code = 41.6 fL 39-49.9 71496-0) NRBC x10^3 (test code = See_Comment [Au tomated message] 5811331331) The system whic h generated this result transmit shazia reference range : 10*3/?L. The reference range was not used to interpret this result as normal/abnormal . NRBC/100 WBC (test code See_Comment [Au tomated message] = 6721535114) The system [facility] ch generated this result transmit shazia reference range : 0.0 - 10.0 /100 WBC s. The reference r manav was not used to interpret this result as normal/abnormal . IPF % (test code = 5653641825) Lab Interpretation (test Abnormal code = 00139-9) [facility] WITH [id number] 10:56:20 Test Item Value Reference Range Interpretation [...] RDW-SD (test code = 41.0 fL 39-49.9 06270-1) RDW-CV (test code = 12.1 % 12-15.5 788-0) PLT (test code = See_Comment [Automated 777-3) message] The sy stem which generated this result transmitted reference range : 166 - 358 10*3/ ?L. The reference r manav was not used to interpret this result as normal/abnormal . MPV (test code = 9.5 fL 9.5-12.9 49012-0) NRBC/100 WBC (test See_Comment [Automat ed code = 6294500818) message] The system which generated this result transmitted reference range : 0.0 - 10.0 /100 WBCs. The refer ence range was not u sed to interpret th is result as normal/abnormal . NRBC x10^3 (test code See_Comment [Auto mated = 0265791672) message] The s ystem which generated this result transmitted reference range : 10*3/?L. The reference range was not used to interpret this result as normal/abnormal . GRAN MAT (NEUT) % 50.7 % (test code = 770-8) IMM GRAN % (test code 0.30 % = 0049692020) LYMPH % (test code = 27.0 % 736-9) MONO % (test code = 10.1 % 5905-5) EOS % (test code = 10.7 % 713-8) BASO % (test code = 1.2 % 706-2) GRAN MAT x10^3(ANC) 1.65 10*3/uL 1.88-7.09 L (test code = 9528286699) IMM GRAN x10^3 (test 0-0.06 code = 9784605844) LYMPH x10^3 (test code 0.88 10*3/uL 1.32-3.29 L = 731-0) MONO x10^3 (test code 0.33 10*3/uL 0.33-0.92 = 742-7) EOS x10^3 (test code = 0.35 10*3/uL 0.03-0.39 711-2) BASO x10^3 (test code 0.04 10*3/uL 0.01-0.07 = 704-7) Lab Interpretation Abnormal (test code = 17135-0) [facility] (NA, K, CL, CO2, GLUCOSE, BUN, CREATININE, CA)2021-10-04 10:47:23 Test Item Value Reference Range Interpretation Comments NA (test code = 133 mmol/L 135-145 L 0000613668) K (test code = 3.8 mmol/L 3.5-5 6603799147) CL (test code = 105 mmol/L 98-108 9033962238) CO2 TOTAL (test code = 29 mmol/L 23-31 2044204481) AGAP (test code = 2-16 L 5312015136) BUN (test code = 10 mg/dL 7-23 8721048912) GLUCOSE (test code = 89 mg/dL 70-110 6561708886) CREATININE (test code = 1.03 mg/dL 0.5-1.04 3797021302) CALCIUM (test code = 8.6 mg/dL 8.6-10.6 5035036407) eGFR (test code = mL/min/1.73m2 3354804032) PAL (test code = PAL) Association of Glomerular Filtration Rate (GFR) and [...] tests). Lab Interpretation Abnormal (test code = 32741-3) [facility]2022-[facility]-28 10:27:12 Test Item Value Reference Range Interpretation Comments MAGNESIUM (test code = 2165145631) 1.8 mg/dL 1.7-2.4 Lab Interpretation (test code = Normal 61347-6) [facility] WITH [id number] 03:39:50 Test Item Value Reference Range Interpretation [...] RDW-SD (test code = 40.8 fL 39-49.9 09094-5) RDW-CV (test code = 11.9 % 12-15.5 L 788-0) PLT (test code = See_Comment L [Automated 777-3) message] The sy stem which generated this result transmitted reference range : 166 - 358 10*3/ ?L. The reference r manav was not used to interpret this result as normal/abnormal . MPV (test code = 9.8 fL 9.5-12.9 04211-4) NRBC/100 WBC (test See_Comment [Automat ed code = 2747794178) message] The system which generated this result transmitted reference range : 0.0 - 10.0 /100 WBCs. The refer ence range was not u sed to interpret th is result as normal/abnormal . NRBC x10^3 (test code See_Comment [Auto mated = 6371063455) message] The s ystem which generated this result transmitted reference range : 10*3/?L. The reference range was not used to interpret this result as normal/abnormal . GRAN MAT (NEUT) % 51.4 % (test code = 770-8) IMM GRAN % (test code 0.30 % = 0261478589) LYMPH % (test code = 26.5 % 736-9) MONO % (test code = 10.8 % 5905-5) EOS % (test code = 10.0 % 713-8) BASO % (test code = 1.0 % 706-2) GRAN MAT x10^3(ANC) 1.96 10*3/uL 1.88-7.09 (test code = 4969899237) IMM GRAN x10^3 (test 0-0.06 code = 3144204423) LYMPH x10^3 (test code 1.01 10*3/uL 1.32-3.29 L = 731-0) MONO x10^3 (test code 0.41 10*3/uL 0.33-0.92 = 742-7) EOS x10^3 (test code = 0.38 10*3/uL 0.03-0.39 711-2) BASO x10^3 (test code 0.04 10*3/uL 0.01-0.07 = 704-7) Lab Interpretation Abnormal (test code = 68604-5) [facility] and Screen - ONCE [id number] 03:38:54 Test Item Value Reference Range Interpretation Comments ABO & RH (test code O POSITIVE Performe d at [facility] = 20) Laboratory Serv [facility] Blood [facility]3 [address] [facility] s [address]Nzrl Free: [phone] A No. [id number] IAT (test code = Negative Performed a t [facility] 1185) Laboratory Serv [facility] Blood [facility]3 [address] [facility] s [address]Adyu Free: [phone] A No. [id number] [facility] [id number] 15:51:56 Test Item Value Reference Range Interpretation Comments IRON (test code = 6645457791) 78 ug/dL 50-160 TIBC (test code = 0383363357) 296 ug/dL 250-410 % FE SAT (test code = 7757297834) 26 % 20-50 Lab Interpretation (test code = Normal 04537-4) [facility] METABOLIC PANEL (NA, K, CL, CO2, GLUCOSE, BUN, CREATININE, CA)2021-10-03 04:19:41 Test Item Value Reference Range Interpretation Comments NA (test code = 136 mmol/L 135-145 6859218599) K (test code = 3.5 mmol/L 3.5-5 9250181449) CL (test code = 103 mmol/L 98-108 3740428172) CO2 TOTAL (test code = 29 mmol/L 23-31 1381942003) AGAP (test code = 2-16 5621038614) BUN (test code = 14 mg/dL 7-23 4457120398) GLUCOSE (test code = 118 mg/dL 70-110 H 7940552123) CREATININE (test code = 0.90 mg/dL 0.5-1.04 6150173416) CALCIUM (test code = 9.4 mg/dL 8.6-10.6 6754962283) eGFR (test code = mL/min/1.73m2 6546769437) PAL (test code = PAL) Association of Glomerular Filtration Rate (GFR) and [...] tests). Lab Interpretation Abnormal (test code = 27921-0) [facility] WITH [id number] 03:59:15 Test Item Value Reference Range Interpretation Comments WBC (test code = See_Comment [Automated 7990-2) message] The sy stem which generated this [...] RDW-SD (test code = 42.7 fL 39-49.9 56447-7) RDW-CV (test code = 12.3 % 12-15.5 788-0) PLT (test code = See_Comment [Automated 777-3) message] The sy stem which generated this result transmitted reference range : 166 - 358 10*3/ ?L. The reference r manav was not used to interpret this result as normal/abnormal . MPV (test code = 9.7 fL 9.5-12.9 04442-1) NRBC/100 WBC (test See_Comment [Automat ed code = 3891169120) message] The system which generated this result transmitted reference range : 0.0 - 10.0 /100 WBCs. The refer ence range was not u sed to interpret th is result as normal/abnormal . NRBC x10^3 (test code See_Comment [Auto mated = 8992422960) message] The s ystem which generated this result transmitted reference range : 10*3/?L. The reference range was not used to interpret this result as normal/abnormal . GRAN MAT (NEUT) % 66.4 % (test code = 770-8) IMM GRAN % (test code 0.10 % = 5531103949) LYMPH % (test code = 19.6 % 736-9) MONO % (test code = 7.0 % 5905-5) EOS % (test code = 5.7 % 713-8) BASO % (test code = 1.2 % 706-2) GRAN MAT x10^3(ANC) 4.55 10*3/uL 1.88-7.09 (test code = 2954983581) IMM GRAN x10^3 (test 0-0.06 code = 9642873849) LYMPH x10^3 (test code 1.34 10*3/uL 1.32-3.29 = 731-0) MONO x10^3 (test code 0.48 10*3/uL 0.33-0.92 = 742-7) EOS x10^3 (test code = 0.39 10*3/uL 0.03-0.39 711-2) BASO x10^3 (test code 0.08 10*3/uL 0.01-0.07 H = 704-7) Lab Interpretation Abnormal (test code = 93433-9) [facility]YC[facility]YL[facility] HEMOGLOBIN (A1C)2021-10-03 03:46:09 Test Item Value Reference Range Interpretation Comments HGB A1C (test code = 5.0 % 4-5.7 4548-4) PAL (test code = PAL) Reference RangesNormal: <5.7%Prediabetes: 5.7 - 6.4%Diabetes: > 6.5% Lab Interpretation (test Normal code = 81148-4) [facility]ABORH Confirmation (Lab Only)2021-10-02 21:53:37 Test Item Value Reference Range Interpretation Comments ABO & RH (test code O Positive Performe d at [facility] = 20) Laboratory Serv [facility] Blood Bank1 [address] [place], [place] [id number] Free: [phone] A No. [id number] [facility] Screen - ONCE [id number] 21:34:44 Test Item Value Reference Range Interpretation Comments ABO & RH (test code O Positive Performe d at [facility] = 20) Laboratory Serv [facility] Blood Bank1 [address] [place], [place] [address]Toll Free: [phone] A No. [id number] IAT (test code = Negative Performed a t [facility] 1185) Laboratory Serv [facility] Blood Bank1 [address] [place], [place] [address]Toll Free: [phone] A No. [id number] [facility]. METABOLIC PANEL (76238)2021-10-02 21:13:27 Test Item Value Reference Range Interpretation Comments NA (test code = 139 mmol/L 135-145 3946055314) K (test code = 4.2 mmol/L 3.5-5 0116783049) CL (test code = 102 mmol/L 98-108 4439283614) CO2 TOTAL (test code = 29 mmol/L 23-31 2633200463) AGAP (test code = 2-16 3043496543) BUN (test code = 17 mg/dL 7-23 0568920527) GLUCOSE (test code = 89 mg/dL 70-110 3523924158) CREATININE (test code = 0.85 mg/dL 0.5-1.04 5048658214) TOTAL BILI (test code = 1.5 mg/dL 0.1-1.1 H 6743309490) CALCIUM (test code = 9.5 mg/dL 8.6-10.6 4887487565) T PROTEIN (test code = 6.9 g/dL 6.3-8.2 3873052097) ALBUMIN (test code = 4.5 g/dL 3.5-5 3097884844) ALK PHOS (test code = 83 U/L 34-122 8388703850) ALTv (test code = 24 U/L 5-35 1742-6) AST(SGOT) (test code = 35 U/L 13-40 1458363221) eGFR (test code = mL/min/1.73m2 4071188560) PAL (test code = PAL) Association of Glomerular Filtration Rate (GFR) and [...] tests). Lab Interpretation Abnormal (test code = 04363-6) [facility]IV[facility] PARTIAL THRMPLAS [id number] 21:10:23 Test Item Value Reference Range Interpretation Comments APTT Patient (test See_Comment [Automat ed code = 3173-2) message] The system which generated this result transmitted reference range : 23 - 38 Seconds . The reference range was not used to interpr et this result as normal/abnormal . PAL (test code = PAL) The [facility] patient population mean normal value for aPTT is 30 seconds. Lab Interpretation Normal (test code = 00818-5) [facility] SouthProthrombin Time / [id number] 21:08:06 Test Item Value Reference Range Interpretation [...] tions. Lab Interpretation (test Abnormal code = 11437-2) [facility] WITH [id number] 21:02:42 Test Item Value Reference Range Interpretation Comments WBC (test code = See_Comment [Automated 0290-2) message] The sy stem which generated this [...] RDW-SD (test code = 42.0 fL 39-49.9 06901-8) RDW-CV (test code = 12.2 % 12-15.5 788-0) PLT (test code = See_Comment [Automated 777-3) message] The sy stem which generated this result transmitted reference range : 166 - 358 10*3/ ?L. The reference r manav was not used to interpret this result as normal/abnormal . MPV (test code = 9.6 fL 9.5-12.9 83969-2) NRBC/100 WBC (test See_Comment [Automat ed code = 8885533918) message] The system which generated this result transmitted reference range : 0.0 - 10.0 /100 WBCs. The refer ence range was not u sed to interpret th is result as normal/abnormal . NRBC x10^3 (test code See_Comment [Auto mated = 5242033274) message] The s ystem which generated this result transmitted reference range : 10*3/?L. The reference range was not used to interpret this result as normal/abnormal . GRAN MAT (NEUT) % 66.2 % (test code = 770-8) IMM GRAN % (test code 0.20 % = 7536584349) LYMPH % (test code = 19.5 % 736-9) MONO % (test code = 7.0 % 5905-5) EOS % (test code = 5.7 % 713-8) BASO % (test code = 1.4 % 706-2) GRAN MAT x10^3(ANC) 5.56 10*3/uL 1.88-7.09 (test code = 7093275475) IMM GRAN x10^3 (test 0-0.06 code = 9257189087) LYMPH x10^3 (test code 1.64 10*3/uL 1.32-3.29 = 731-0) MONO x10^3 (test code 0.59 10*3/uL 0.33-0.92 = 742-7) EOS x10^3 (test code = 0.48 10*3/uL 0.03-0.39 H 711-2) BASO x10^3 (test code 0.12 10*3/uL 0.01-0.07 H = 704-7) Lab Interpretation Abnormal (test code = 30545-0) [facility] Notes Date/Time Note Provider Source 2022-10-06 18:28:00-00:00 [id number] [address] PATIENT NAME: LESLEY BREAUX ADMIT DATE: ACCOUNT NO: [id number] ROOM NO: [facility] AGE: 87 REPORT TYPE: 360 - QUERY RESPONSE DOCUMENT SEX: F ADMITTING PHYSICIAN: Tejinder Toribio MD ATTENDING PHYSICIAN: Gissel Ortega MD Cardiolo gy Provider Query QUERY TEXT: Clarification Infectious Status POA 360MD Query related questions should be directed to: Yohannes donita [facility] Coding Query Helpline Based on your clinical judgment, please clarify the condition(s) that represent(s) the clinical ind icators listed below and if the condition(s) are presen t on admission (POA). The following definitions are provided based on industry literature and in collaboration with [facility] for your reference only: --Localized Infection - An infection that affect s only one organ or body part (e.g., UTI, Pneumonia) --Bacteremia - Nonspecific laboratory finding of bacteria in the blood --Sepsis - A presumed or confirmed systemic resp onse to infectious process with >2 clinical indicators such as: Temperature >38.3C or <36.0C, tachycardia, > 20 respiratory rate, WBC >12,000 or < 4,000 or > 1 0% bands --Severe Sepsis - Sepsis with additional clinica l indicators such as Organ failure with any of th e following: systolic BP < 90 or MAP < 65 or SBP decrease more 40 mm Hg from last recorded SBP considered normal for patient, Creatinine > 2.0, urine output < 0.5 ml /kg/hour for 2 hours, Bilirubin > 2 mg/dL, platelet coun t < 100,000, INR > 1.5, PTT > 60 sec, lactate > 2 m mol/L --Septic Shock - Severe Sepsis with Lactic acid > 4 mmol/L or persistent hypotension The patient's Clinical Indicators include: SIRS (fever, leukocytosis) likely due to above-I nfectious Dis. Progress Note 10/01/2022 ventricular tachycardia. -CARDIAC CATHETERIZATIO N 09/18/2022 Recurrent C. difficile colitis-Pulmonology Progr ess Note 09/30/2022 ceFAZolin SODIUM 1 GM VIAL-MAR NOREPINEPHRINE BIT/0.9 % NACL 16 MG/250 ML ML - MAR Options provided: -- Sepsis, Please specify POA status (i.e., Y=Ye s, N=No, W=Unable to clinically determine) and causative organism if known. -- Severe Sepsis, Please specify POA status (i.e ., Y=Yes, N=No, W=Unable to clinically determine) and cau sative organism if known. -- Severe Sepsis with septic shock, Please speci fy POA status (i.e., Y=Yes, N=No, W=Unable to clinical ly determine) and causative organism if known. -- Localized infection, Please specify the infec tion and POA status (i.e., Y=Yes, N=No, W=Unable to clin ically determine). -- Other - I will add my own diagnosis -- Dismiss - Not applicable / Not valid -- Dismiss - Clinically unable to determine / Un known -- Assign to another provider QUERY RESPONSE: The patient has localized infection. Query created by: Andre Wilson on 023 1:14 PM Electronically Signed by Art Tavera MD on 0 10/06/22 at 1828 PATIENT NAME: LESLEY BREAUX [id number] 2022-10-01 15:46:00-00:00 [facility] ([facility]) Wound Care Progress Note REPORT#:[id number] REPORT STATUS: Signed DATE:10/01/22 TIME:1546 PATIENT: LESLEY BREAUX UNIT #: [id number] ROOM/BED: [place] [id number] : 36 AGE: 87 SEX: F ATTEND: Tuan Ortega MD Cardiology ADM AUTHOR: Karlo Francis MD * ALL edits or amendments must be made on the Aerospike/computer document * Subjective Chief complaint: Wound Care HPI: no acute events Unable to obtain: medical condition Objective General VS: Last Documented: Result Date Time O2 Delivery Nasal cannula 10/01 1457 O2 Flow Rate 2 10/01 1457 Pulse Ox 94 10/01 1202 B/P 127/71 10/01 1202 B/P Mean 89.3 10/01 1202 Temp 97.7 10/01 1202 Pulse 75 10/01 1202 Resp 18 10/01 1202 FiO2 21 10/01 0640 PATIENT WEIGHT: Weight (lb): 99 Weight (oz): 3.33 Weight (kg): 44.906 Medications: Active Meds + DC'd Last 24 Hrs Patient Own Medication (PATIENT'S OWN MEDICATION ) REXULTI 1MG BEDTIME PO (DCD) Magnesium Oxide (MAG-OX 400) 400 MG Q8H PRN PRN PO (DCD) Magnesium Sulfate (MAGNESIUM SULFATE 2 G IN SWFI 50 ML) 50 ML ASDIR PRN IV (DCD) Magnesium Sulfate (MAGNESIUM SULFATE 2 G IN SWFI 50 ML) 50 ML Q2H PRN PRN IV (DCD) Magnesium Oxide (MAG-OX 400) 400 MG Q8H PRN PRN PO (DCD) Magnesium Sulfate (MAGNESIUM SULFATE 2 G IN SWFI 50 ML) 50 ML ASDIR PRN IV (DCD) Magnesium Sulfate (MAGNESIUM SULFATE 2 G IN SWFI 50 ML) 50 ML Q2H PRN PRN IV (DCD) Potassium Chloride (POTASSIUM CHLORIDE 10 MEQ/SW FI 50 ML) 50 ML ASDIR PRN IV (DCD) Potassium Chloride (KCL 20 MEQ/SWFI 100 ML) 100 ML ASDIR PRN IV (DCD) Potassium Chloride (KCL 20 MEQ/SWFI 100 ML) 100 ML ASDIR PRN IV (DCD) Potassium Chloride (KCL 20 MEQ/SWFI 100 ML) 100 ML ASDIR PRN IV (DCD) Potassium Chloride (K-DUR 20 mEq) 20 MEQ ASDIR P RN PO (DCD) Potassium Chloride (K-DUR 20 mEq) 20 MEQ ASDIR P RN PO (DCD) Midodrine (PROAMATINE) 5 MG TID PO (DCD) Enoxaparin Sodium (lovENOX) 30 MG Q24H SUBQ (DCD ) Metronidazole/Sodium Chloride (metroNIDAZOLE 500 MG / 100 MLNS) 100 ML Q8HR IV (DCD) Nystatin (MYCOSTATIN 15 GM POWDER) 1 APPLIC Q12H TOPICAL (DCD) Ondansetron HCl (ZOFRAN) 4 MG Q6H PRN PRN IV (DC D) Norepinephrine Bitartrate (Levophed 16 MG/250 ML NS) 250 ML ASDIR IV ( DCD) Lactobacillus Acidophilus (BACID) 1 CAP BID PO ( DCD) Fidaxomicin (DIFICID) 200 MG Q12HR PO (DCD) Furosemide (LASIX 20MG INJ) 20 MG Q12HR IV (DCD) Sodium Chloride (SODIUM CHLORIDE) 10 ML ASDIR IV (DCD) Zolpidem Tartrate (AMBIEN) 5 MG BEDTIME PRN PRN PO (DC) Acetylcysteine (MUCOMYST 20% 4 ML) 200 MG RTQ6H NEB (DCD) Iopamidol (ISOVUE-300) 100 ML ONCE PRN IV (DCD) Sodium Chloride (0.9% Sodium Chloride) 50 ML ONC E PRN IV (DCD) Albuterol/Ipratropium (DUONEB) 3 ML RTQ6H PRN NV N NEB (DCD) Iopamidol (ISOVUE-370) 100 ML ONCE PRN IV (DCD) Atorvastatin Calcium (LIPITOR) 10 MG BEDTIME PO (DCD) Sertraline HCl (ZOLOFT) 25 MG DAILY PO (DCD) Acetaminophen (TYLENOL) 650 MG Q4H PRN PRN PO (D CD) Ondansetron HCl (ZOFRAN ODT) 4 MG Q8H PRN PRN PO (DCD) Sodium Chloride (SODIUM CHLORIDE) SALINE FLUSH ASDIR PRN IV (DCD) Dietitian Nutrition assessment The data set between the solid lines has been im ported from the dietitian's assessment. BMI Calculated: 19.3 Nutrition related diagnosis: Severe malnutrition Nutrition diagnosis details: Nutrition problem: Severe malnutrition Nutrition etiology: Acute illness, Decreased/poo r appetite, Diarrhea Nutrition signs and symptoms: Moderate muscle lo ss, Moderate subcutaneous fat loss, 20% or more weight loss, Less than 25% int keesha Nutrition prescription: 1) Continue regular diet , honor food preferences 2) Will d/c Ensure Clear - pt reports they are too sweet 3) Continue Bannatrol 4) Encourage oral intake of food/supplements Dietitian name: Sandi Leal RD,AKOSUA Assessment completed: 09/30/22 Physical Exam General appearance: chronically ill appearing Respiratory: no distress Abdomen: non-tender Extremities: no edema Wound Assessment Wound Assessment 1: Type/cause: pressure Wound location: buttock, sacral region Tissue layers: limited to skin breakdown Site condition: no drainage, no ecchymosis, no erythema Stage of pressure ulcer: stage II Diagnosis, Assessment Plan Problem List/A P: 1. Decubitus ulcer of sacral region, stage 2 slight expansion in dimension. cleanse with soap and water, spray pt's home diaper rash supply then add in nystatin powder leave open to air carry this out once per RN shift. 2. Decubitus ulcer of buttock, stage 2 cleanse with soap and water, spray pt's home diaper rash supply then add in nystatin powder leave open to air carry this out once per RN shift. 3. Intertrigo cleanse with soap and water, spray pt's home diaper rash supply then add in nystatin powder leave open to air carry this out once per RN shift. 4. C. difficile diarrhea Electronically Signed by Karlo Francis MD on at 1547 RPT #: [id number] END OF REPORT 2022-10-01 12:21:00-00:00 [facility] ([facility] Hospitalist Discharge Summary REPORT#:[id number] REPORT STATUS: Signed DATE:10/01/22 TIME:1221 PATIENT: LESLEY BREAUX UNIT #: [id number] ROOM/BED: [place] [id number] : 36 AGE: 87 SEX: F ATTEND: Tuan Ortega MD Cardiology ADM AUTHOR: Art Tavera MD * ALL edits or amendments must be made on the el [email or web address]/computer document * General Information Discharge date: 10/01/22 Discharge diagnosis: Paroxysmal Afib, sick sinus syndrome, tachybrady syndrome s/p PPM placement s/p PPM placement by Cardiology Dr. Ortega 09/18 Complex moderate left pleural effusion / hemotho rax, s/p R sided Cx tube in place with 600c of bloody fluid removed Status post removal of the chest tube Acute normocytic anemia, possibly due to acute b lood loss with possible hemothorax Status post transfusion Hypotension with a history of hypertension COPD C. difficile colitis Hyponatremia Acute kidney injury Hospital course: 87 y/o female with PMHx of H TN, HLD, COPD, paroxysmal Afib, sick sinus syndrome, tachybrady syndome admitted for: Paroxysmal Afib, sick sinus syndrome, tachybrady syndrome s/p PPM placement s/p PPM placement by Cardiology Dr. 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 Pain control with Tylenol/Tramadol PRN Continue home coreg Hold home Eliquis due to anemia with possible he mothorax Complex moderate left pleural effusion / hemotho rax, s/p R sided Cx tube in place with 600c of bloody fluid removed Appreciate pulm medicine, pain control Status post removal of the chest tube Acute normocytic anemia, possibly due to acute b lood loss with possible hemothorax Status post transfusion Monitor H H closely Hypotension with a history of hypertension Hold home coreg, losartan Transferred to ICU Started on Levophed We will try to wean down to MAP of 65 Added on midodrine COPD Not in acute exacerbation Duoneb tx PRN C. difficile colitis Started on fidaxomicin ID consulted Continues to have diarrhea Add on probiotics Hyponatremia Electrolytes monitor and replace accordingly Acute kidney injury Renal parameters monitored DVT prophylaxis with SCDs, held home Eliquis due to anemia Full code Total critical care time used was 33 minutes Off Levophed Noted to have some bleeding in the rectal tube Hemoglobin monitored We will DC rectal tube PT OT evaluation May need placement Discussed with case management Discussed with ID and pulmonology Monitor closely under telemetry Patient has been psychosis , Possibly ICU relate d We will give Seroquel at night Hemoglobin monitored And is stable Awaiting placement Discussed with case management Patient and family wants to go home with home he alth Will DC home today Med Rec Med Rec Discharge meds: Stop taking the following medications: LOSARTAN (COZAAR) 25 MG TAB 12.5 MILLIGRAM ORAL DAILY. CARVEDILOL (COREG) 6.25 MG TAB 3.125 MILLIGRAM ORAL DAILY. Continue taking these medications: APIXABAN (ELIQUIS) 2.5 MG TAB 2.5 MILLIGRAM ORAL TWICE DAILY. FUROSEMIDE (LASIX) 20 MG TAB 10 MILLIGRAM ORAL DAILY. ZOLPIDEM (AMBIEN) 10 MG TAB 10 MILLIGRAM ORAL BEDTIME. SERTRALINE (ZOLOFT) 25 MG TAB 25 MILLIGRAM ORAL DAILY. ATORVASTATIN (LIPITOR) 10 MG TAB 10 MILLIGRAM ORAL DAILY. [REXULTI] 1 MILLIGRAM ORAL BEDTIME. CHOLECALCIFEROL (VITAMIN D3) (VITAMIN D3) 50 MCG (2,000 UNIT) CAP 2,000 UNITS ORAL DAILY. ALBUTEROL (PROAIR DIGIHALER 90 MCG/ACT 0.65 GM) 90 MCG INHALER 2 PUFF INHALATION TWICE DAILY. as needed for SO B Start taking the following new medications: FIDAXOMICIN (DIFICID) 200 MG TAB 200 MILLIGRAM ORAL EVERY 12 HOURS. Qty = 8 No Refills LACTOBACILLUS ACIDOPHILUS (PROBIOTIC ACIDOPHILUS ) 1 CAP CAP 1 CAPSULE ORAL TWICE DAILY. Qty = 20 No Refills metroNIDAZOLE (FLAGYL) 500 MG TAB 500 MILLIGRAM ORAL EVERY 12 HOURS. Qty = 14 No Refills Objective VS/I O Last Documented: Result Date Time Pulse Ox 94 10/01 1202 B/P 127/71 10/01 1202 B/P Mean 89.3 10/01 1202 O2 Delivery Room air 10/01 1202 Temp 97.7 10/01 1202 Pulse 75 10/01 1202 Resp 18 10/01 1202 FiO2 21 10/01 0640 O2 Flow Rate 4 10/01 1999 24 hour I O ending at 0700: 10/01 0700 09/30 1900 Intake Total Output Total 1500 Balance -1500 Output, Urine 1500 General appearance: alert, awake Head/Eyes: atraumatic, normocephalic ENT: dry mucosal membrane Neck: supple/no meningismus Cardiovascular: normal heart sounds, regular rat e rhythm Respiratory: decreased breath sounds, on oxygen, symmetric expansion, no distress, PPM site c/d/i, no overlying edema, er ythema or warmth Abdomen: non-tender, soft Genitourinary: no bladder distention Extremities: moves all, no edema Musculoskeletal: no CVA tenderness Neuro/ENGINEERING INSPECTION ASSISTANT: alert, normal speech Skin: dry Psychiatry: normal affect, normal mood Discharge Instructions PCP Discharge to: Home Health wPlan of Care Additional Discharge Routines: PCP Follow-Up, Co nsultant Follow-Up Diet: Resume Home Diet/Feeds Discharge management: greater than 30 mins Follow-up Appointments PCP follow-up: PCP: Gissel Ortega MD Cardiology PCP follow up timeframe: In 1-2 weeks Consulting provider 1: Provider 1: Mauro Arce MD Specialty: Pulmonary Disease Consult follow up timeframe: In 1-2 weeks Consulting provider 2: Provider 2: Curtis Sun MD Specialty: Infectious Disease Follow up timeframe: In 1-2 weeks Electronically Signed by Art Tavera MD on at 1459 [facility] #: [id number] END OF REPORT 2022-10-01 11:55:00-00:[address] [facility] Pulmonology Progress Note REPORT#:[id number] REPORT STATUS: Signed DATE:10/01/22 TIME:1155 PATIENT: LESLEY BREAUX UNIT #: [id number] ROOM/BED: [place] [id number] : 36 AGE: 87 SEX: F ATTEND: Sa chapo Ortega MD Cardiology ADM AUTHOR: Mauro Arce MD * ALL edits or amendments must be made on the Aerospike/computer document * Subjective Chief complaint: No distress stable breathing on nasal cannula hemodynamically stable HPI: Pleasant 87-year-old lady who underwent pacemake r placement yesterday for tachybradycardia syndrome. She was having more shortnes s of breath and left-sided chest pain for which a CT angiogram of the chest was done, see full report . Images reviewed and discussed with patient and cheyanne hoover. There is a small to moderate size left pleural effusion with different densities suggesting possible blood product. There are als o chronic appearing reticular nodular, tree-in-bud type peripheral mostly lowe r zone infiltrates right more than left, no prior CT images to compare. The patient denies much in the way of chronic sp utum fevers chills sweats or significant weight loss. The patient has emphysema has seen pulmo abisai doctors in the outpatient setting at [facility] but never smoked. Except described above, review of systems x14 is negative and normal. Review of Systems ROS Skin: Denies: itching, laceration. Allergy/Immun: Denies: anaphylaxis, hives. ENT: Denies: hearing loss, mouth pain. GI: Reports: abdominal pain, diarrhea. Denies: hemat emesis, hematochezia. Neuro: Denies: lightheaded, numbness. Objective General VS/I O: Last Documented: Result Date Time Pulse Ox 93 10/01 0646 B/P 115/68 10/01 0746 B/P Mean 83.5 10/01 0646 O2 Delivery Nasal cannula 10/01 745 Temp 36.7 10/01 745 Pulse 84 10/01 0746 Resp 20 10/01 745 FiO2 21 10/01 0640 O2 Flow Rate 4 10/01 1999 24 hour I O ending at 0700: 10/01 0700 09/30 1900 Intake Total Output Total 1500 Balance -1500 Output, Urine 1500 PATIENT WEIGHT: Weight (lb): 99 Weight (oz): 3.33 Weight (kg): 44.906 Medications: Active Meds + DC'd Last 24 Hrs Patient Own Medication (PATIENT'S OWN MEDICATION ) REXULTI 1MG BEDTIME PO Potassium Phosphate (POTASSIUM PHOSPHATE) 15 MMO L ONCE ONE IV (DC) Sodium Chloride (SODIUM CHLORIDE 0.9%) 250 ML Magnesium Oxide (MAG-OX 400) 400 MG Q8H PRN PRN PO Magnesium Sulfate (MAGNESIUM SULFATE 2 G IN SWFI 50 ML) 50 ML ASDIR PRN IV Magnesium Sulfate (MAGNESIUM SULFATE 2 G IN SWFI 50 ML) 50 ML Q2H PRN PRN IV Quetiapine Fumarate (SEROqueL) 12.5 MG BEDTIME P O (DC) Olanzapine (ZyPREXA) 2.5 MG DAILY PO (DC) Magnesium Oxide (MAG-OX 400) 400 MG Q8H PRN PRN PO Magnesium Sulfate (MAGNESIUM SULFATE 2 G IN SWFI 50 ML) 50 ML ASDIR PRN IV Magnesium Sulfate (MAGNESIUM SULFATE 2 G IN SWFI 50 ML) 50 ML Q2H PRN PRN IV Potassium Chloride (POTASSIUM CHLORIDE 10 MEQ/SW FI 50 ML) 50 ML ASDIR PRN IV Potassium Chloride (KCL 20 MEQ/SWFI 100 ML) 100 ML ASDIR PRN IV Potassium Chloride (KCL 20 MEQ/SWFI 100 ML) 100 ML ASDIR PRN IV Potassium Chloride (KCL 20 MEQ/SWFI 100 ML) 100 ML ASDIR PRN IV Potassium Chloride (K-DUR 20 mEq) 20 MEQ ASDIR P RN PO Potassium Chloride (K-DUR 20 mEq) 20 MEQ ASDIR P RN PO Midodrine (PROAMATINE) 5 MG TID PO Enoxaparin Sodium (lovENOX) 30 MG Q24H SUBQ Metronidazole/Sodium Chloride (metroNIDAZOLE 500 MG / 100 MLNS) 100 ML Q8HR IV Nystatin (MYCOSTATIN 15 GM POWDER) 1 APPLIC Q12H TOPICAL Mupirocin (BACTROBAN NASAL-ADULT ICU/STEVE MRSA PATIENTS) 1 APPLIC 0900,1700 NASAL (DC) Ondansetron HCl (ZOFRAN) 4 MG Q6H PRN PRN IV Norepinephrine Bitartrate (Levophed 16 MG/250 ML NS) 250 ML ASDIR IV Lactobacillus Acidophilus (BACID) 1 CAP BID PO Fidaxomicin (DIFICID) 200 MG Q12HR PO Furosemide (LASIX 20MG INJ) 20 MG Q12HR IV Sodium Chloride (SODIUM CHLORIDE) 10 ML ASDIR IV Zolpidem Tartrate (AMBIEN) 5 MG BEDTIME PRN PRN PO (DC) Acetylcysteine (MUCOMYST 20% 4 ML) 200 MG RTQ6H NEB Iopamidol (ISOVUE-300) 100 ML ONCE PRN IV Sodium Chloride (0.9% Sodium Chloride) 50 ML ONC E PRN IV Albuterol/Ipratropium (DUONEB) 3 ML RTQ6H PRN NV N NEB Iopamidol (ISOVUE-370) 100 ML ONCE PRN IV Atorvastatin Calcium (LIPITOR) 10 MG BEDTIME PO Sertraline HCl (ZOLOFT) 25 MG DAILY PO Acetaminophen (TYLENOL) 650 MG Q4H PRN PRN PO Ondansetron HCl (ZOFRAN ODT) 4 MG Q8H PRN PRN PO Sodium Chloride (SODIUM CHLORIDE) SALINE FLUSH ASDIR PRN IV Physical Exam Head/eyes: atraumatic, normocephalic, normal con junctiva/sclera ENT: ENT: moist mucosal membranes, normal pharynx Neck: non-tender, supple/no meningismus Cardiovascular: normal S1/S2, regular rate rhyth m Respiratory/chest: decreased breath sounds, on o xygen, rales, bandage, sling Abdomen: soft, non-tender Extremities: edema, no clubbing, no cyanosis Musculoskeletal: normal inspection, no muscle sp asm Neuro/ENGINEERING INSPECTION ASSISTANT: alert, oriented X 3, no motor deficit s Skin: dry, intact Lymphatics: neck normal, no lymphadenopathy Results Findings/Data: Laboratory Tests 10/01/22451: [Embedded Image Not Available] Laboratory Tests 10/02 451 Chemistry Sodium (134 - 147 mmol/L) 143 Potassium (3.4 - 5.0 mmol/L) 3.7 Chloride (100 - 108 mmol/L) 107 Carbon Dioxide (21 - 32 mmol/L) 34 H Anion Gap (4.0 - 15.0 GAP calc) 2.0 L BUN (7 - 18 MG/DL) 17 Creatinine (0.6 - 1.0 MG/DL) 0.9 Glomerular Filtr Rate (>60 estGFR) >=60 max est imate Glucose (70 - 110 MG/DL) 94 Calcium (8.5 - 10.1 MG/DL) 8.3 L Phosphorus (2.5 - 4.9 MG/DL) 3.0 Magnesium (1.8 - 2.4 MG/DL) 2.0 Laboratory Tests 10/02 451 Hematology WBC (3.5 - 11.0 K/mm3) 6.3 RBC (4.70 - 6.10 M/mm3) 3.03 L Hgb (10.4 - 14.9 G/DL) 9.0 L Hct (31.5 - 44.1 %) 27.5 L MCV (84.5 - 98.6 Fl) 90.8 MCH (27.0 - 34.2 pg) 29.7 MCHC (31.5 - 34.0 G/DL) 32.7 RDW (11.5 - 14.5 SD) 14.0 Plt Count (150 - 450 K/mm3) 353 MPV (7.0 - 10.5 fL) 8.70 Neut % (Auto) (40 - 76 %) 69.6 Lymph % (Auto) (20.5 - 51.1 %) 15.0 L [place] % (Auto) (1.7 - 9.3 %) 5.8 Eos % (Auto) (0.0 - 6.0 %) 7.9 H Baso % (Auto) (0.0 - 2.0 %) 0.8 Neut # (Auto) (1.8 - 7.6 K/mm3) 4.4 Lymph # (Auto) (0.6 - 3.2 K/mm3) 1.0 [place] # (Auto) (0.3 - 1.1 K/mm3) 0.4 Eos # (Auto) (0.0 - 0.4 K/mm3) 0.5 H Baso # (Auto) (0.0 - 0.1 K/mm3) 0.1 Abs Immat Gran (auto) (0.00 - 0.03 x10 3/uL) 0. 06 H Add Manual Diff (CRITERIA DIFF/SCN) NO Immature Gran % (0.0 - 5.0 %) 0.9 Nucleated RBC % (0.0 - 1.0 /100WBC%) 0.0 Diagnosis, Assessment Plan Free Text A P: 1.Status post pacemaker, tachybradycardia syndr ome, history of atrial fibrillation 2. Left hemothorax that was drained 3. Recurrent C. difficile colitis 4. Emphysema 5. Hypertension 6. Lidocaine allergy cont midodrine TID Replace electrolytes She was noted to have C. difficile colitis Antibiotics for C Diff Probiotics Incentive spirometry Last chest x-ray stable ok to DC on home oxygen 2 /M Wound care for sacral wound Electronically Signed by Mauro Arce MD on 09/08 06/29 at 1158 RPT #: [id number] END OF REPORT 2022-10-01 10:32:00-00:00 [facility] ([facility] Hospitalist Progress Note REPORT#:[id number] REPORT STATUS: Signed DATE:10/01/22 TIME:1032 PATIENT: LESLEY BREAUX UNIT #: [id number] ROOM/BED: [address] : 36 AGE: 87 SEX: F ATTEND: Tuan Ortega MD Cardiology ADM AUTHOR: Art Tavera MD * ALL edits or amendments must be made on the el ectronic/computer document * Subjective Chief complaint: Sleeping comfortably Denies any abdominal pain Continues to have some diarrhea on and off Objective General VS/I O: Vital Signs: Date Time Temp Pulse Resp B/P B/P Pulse O2 O2 F low FiO2 Mean Ox Delivery Rate 10/01 0746 98.1 84 20 115/68 83.5 93 Nasal cannula 10/01 0640 92 Room air 21 10/01 0359 97.2 82 12 117/66 82.7 94 09/30 2329 97.5 81 16 127/74 91.8 94 Nasal cannula 09/30 2000 Nasal 4 cannula 09/30 1903 95 Nasal 4 36 cannula 09/30 1228 97.5 77 15 134/73 93.5 96 Nasal cannula 09/30 1100 Nasal 4 cannula 24 hour I O ending at 0700: 10/01 0700 09/30 1900 Intake Total Output Total 1500 Balance -1500 Output, Urine 1500 PATIENT WEIGHT: Weight (lb): 99 Weight (oz): 3.33 Weight (kg): 44.906 Medications: Active Meds + DC'd Last 24 Hrs Patient Own Medication (PATIENT'S OWN MEDICATION ) REXULTI 1MG BEDTIME PO Magnesium Sulfate (MAGNESIUM SULFATE 2 G IN SWFI 50 ML) 50 ML ONCE ONE IV (DC) Potassium Phosphate (POTASSIUM PHOSPHATE) 15 MMO L ONCE ONE IV (DC) Sodium Chloride (SODIUM CHLORIDE 0.9%) 250 ML Magnesium Oxide (MAG-OX 400) 400 MG Q8H PRN PRN PO Magnesium Sulfate (MAGNESIUM SULFATE 2 G IN SWFI 50 ML) 50 ML ASDIR PRN IV Magnesium Sulfate (MAGNESIUM SULFATE 2 G IN SWFI 50 ML) 50 ML Q2H PRN PRN IV Quetiapine Fumarate (SEROqueL) 12.5 MG BEDTIME P O (DC) Olanzapine (ZyPREXA) 2.5 MG DAILY PO (DC) Magnesium Oxide (MAG-OX 400) 400 MG Q8H PRN PRN PO Magnesium Sulfate (MAGNESIUM SULFATE 2 G IN SWFI 50 ML) 50 ML ASDIR PRN IV Magnesium Sulfate (MAGNESIUM SULFATE 2 G IN SWFI 50 ML) 50 ML Q2H PRN PRN IV Potassium Chloride (POTASSIUM CHLORIDE 10 MEQ/SW FI 50 ML) 50 ML ASDIR PRN IV Potassium Chloride (KCL 20 MEQ/SWFI 100 ML) 100 ML ASDIR PRN IV Potassium Chloride (KCL 20 MEQ/SWFI 100 ML) 100 ML ASDIR PRN IV Potassium Chloride (KCL 20 MEQ/SWFI 100 ML) 100 ML ASDIR PRN IV Potassium Chloride (K-DUR 20 mEq) 20 MEQ ASDIR P RN PO Potassium Chloride (K-DUR 20 mEq) 20 MEQ ASDIR P RN PO Midodrine (PROAMATINE) 5 MG TID PO Enoxaparin Sodium (lovENOX) 30 MG Q24H SUBQ Metronidazole/Sodium Chloride (metroNIDAZOLE 500 MG / 100 MLNS) 100 ML Q8HR IV Nystatin (MYCOSTATIN 15 GM POWDER) 1 APPLIC Q12H TOPICAL Mupirocin (BACTROBAN NASAL-ADULT ICU/STEVE MRSA PATIENTS) 1 APPLIC 0900,1700 NASAL (DC) Ondansetron HCl (ZOFRAN) 4 MG Q6H PRN PRN IV Norepinephrine Bitartrate (Levophed 16 MG/250 ML NS) 250 ML ASDIR IV Lactobacillus Acidophilus (BACID) 1 CAP BID PO Fidaxomicin (DIFICID) 200 MG Q12HR PO Furosemide (LASIX 20MG INJ) 20 MG Q12HR IV Sodium Chloride (SODIUM CHLORIDE) 10 ML ASDIR IV Zolpidem Tartrate (AMBIEN) 5 MG BEDTIME PRN PRN PO (DC) Acetylcysteine (MUCOMYST 20% 4 ML) 200 MG RTQ6H NEB Iopamidol (ISOVUE-300) 100 ML ONCE PRN IV Sodium Chloride (0.9% Sodium Chloride) 50 ML ONC E PRN IV Albuterol/Ipratropium (DUONEB) 3 ML RTQ6H PRN NV N NEB Iopamidol (ISOVUE-370) 100 ML ONCE PRN IV Atorvastatin Calcium (LIPITOR) 10 MG BEDTIME PO Sertraline HCl (ZOLOFT) 25 MG DAILY PO Acetaminophen (TYLENOL) 650 MG Q4H PRN PRN PO Ondansetron HCl (ZOFRAN ODT) 4 MG Q8H PRN PRN PO Sodium Chloride (SODIUM CHLORIDE) SALINE FLUSH ASDIR PRN IV Dietitian nutrition assessment The data set between the solid lines has been im ported from the dietitian's assessment. BMI Calculated: 19.3 Nutrition related diagnosis: Severe malnutrition Nutrition diagnosis details: Nutrition problem: Severe malnutrition Nutrition etiology: Acute illness, Decreased/poo r appetite, Diarrhea Nutrition signs and symptoms: Moderate muscle lo ss, Moderate subcutaneous fat loss, 20% or more weight loss, Less than 25% int keesha Nutrition prescription: 1) Continue regular diet , honor food preferences 2) Will d/c Ensure Clear - pt reports they are too sweet 3) Continue Bannatrol 4) Encourage oral intake of food/supplements Dietitian name: Sandi Leal RD,LD Assessment completed: 09/30/22 Physical Exam General appearance: alert, awake Head/Eyes: atraumatic, normocephalic ENT: dry mucosal membrane Neck: supple/no meningismus Cardiovascular: normal heart sounds, regular rat e rhythm Respiratory: decreased breath sounds, on oxygen, symmetric expansion, no distress, PPM site c/d/i, no overlying edema, er ythema or warmth Abdomen: non-tender, soft Genitourinary: no bladder distention Extremities: moves all, no edema Musculoskeletal: no CVA tenderness Neuro/ENGINEERING INSPECTION ASSISTANT: alert, normal speech Skin: dry Psychiatry: normal affect, normal mood Results Findings/Data: Laboratory Tests 10/02 451 Chemistry Sodium (134 - 147 mmol/L) 143 Potassium (3.4 - 5.0 mmol/L) 3.7 Chloride (100 - 108 mmol/L) 107 Carbon Dioxide (21 - 32 mmol/L) 34 H Anion Gap (4.0 - 15.0 GAP calc) 2.0 L BUN (7 - 18 MG/DL) 17 Creatinine (0.6 - 1.0 MG/DL) 0.9 Glomerular Filtr Rate (>60 estGFR) >=60 max est imate Glucose (70 - 110 MG/DL) 94 Calcium (8.5 - 10.1 MG/DL) 8.3 L Phosphorus (2.5 - 4.9 MG/DL) 3.0 Magnesium (1.8 - 2.4 MG/DL) 2.0 Laboratory Tests 10/02 451 Hematology WBC (3.5 - 11.0 K/mm3) 6.3 RBC (4.70 - 6.10 M/mm3) 3.03 L Hgb (10.4 - 14.9 G/DL) 9.0 L Hct (31.5 - 44.1 %) 27.5 L MCV (84.5 - 98.6 Fl) 90.8 MCH (27.0 - 34.2 pg) 29.7 MCHC (31.5 - 34.0 G/DL) 32.7 RDW (11.5 - 14.5 SD) 14.0 Plt Count (150 - 450 K/mm3) 353 MPV (7.0 - 10.5 fL) 8.70 Neut % (Auto) (40 - 76 %) 69.6 Lymph % (Auto) (20.5 - 51.1 %) 15.0 L [place] % (Auto) (1.7 - 9.3 %) 5.8 Eos % (Auto) (0.0 - 6.0 %) 7.9 H Baso % (Auto) (0.0 - 2.0 %) 0.8 Neut # (Auto) (1.8 - 7.6 K/mm3) 4.4 Lymph # (Auto) (0.6 - 3.2 K/mm3) 1.0 [place] # (Auto) (0.3 - 1.1 K/mm3) 0.4 Eos # (Auto) (0.0 - 0.4 K/mm3) 0.5 H Baso # (Auto) (0.0 - 0.1 K/mm3) 0.1 Abs Immat Gran (auto) (0.00 - 0.03 x10 3/uL) 0. 06 H Add Manual Diff (CRITERIA DIFF/SCN) NO Immature Gran % (0.0 - 5.0 %) 0.9 Nucleated RBC % (0.0 - 1.0 /100WBC%) 0.0 Diagnosis, Assessment Plan Free Text DxA P Notes Free text DxA P notes: 87 y/o female with PMHx of H TN, HLD, COPD, paroxysmal Afib, sick sinus syndrome, tachybrady syndome admitted for: Paroxysmal Afib, sick sinus syndrome, tachybrady syndrome s/p PPM placement s/p PPM placement by Cardiology Dr. 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 Pain control with Tylenol/Tramadol PRN Continue home coreg Hold home Eliquis due to anemia with possible he mothorax Complex moderate left pleural effusion / hemotho rax, s/p R sided Cx tube in place with 600c of bloody fluid removed Appreciate pulm medicine, pain control Status post removal of the chest tube Acute normocytic anemia, possibly due to acute b lood loss with possible hemothorax Status post transfusion Monitor H H closely Hypotension with a history of hypertension Hold home coreg, losartan Transferred to ICU Started on Levophed We will try to wean down to MAP of 65 Added on midodrine COPD Not in acute exacerbation Duoneb tx PRN C. difficile colitis Started on fidaxomicin ID consulted Continues to have diarrhea Add on probiotics Hyponatremia Electrolytes monitor and replace accordingly Acute kidney injury Renal parameters monitored DVT prophylaxis with SCDs, held home Eliquis due to anemia Full code Total critical care time used was 33 minutes Off Levophed Noted to have some bleeding in the rectal tube Hemoglobin monitored We will DC rectal tube PT OT evaluation May need placement Discussed with case management Discussed with ID and pulmonology Monitor closely under telemetry Patient has been psychosis , Possibly ICU relate d We will give Seroquel at night Hemoglobin monitored And is stable Awaiting placement Discussed with case management Patient and family wants to go home with home he alth Will DC home today Electronically Signed by Art Tavera MD on at 1443 RPT #: [id number] END OF REPORT 2022-10-01 09:55:00-00:00 [facility] ([facility]) Infectious Dis. Progress Note REPORT#:[id number] REPORT STATUS: Signed DATE:10/01/22 TIME:954 PATIENT: LESLEY BREAUX UNIT #: [id number] ROOM[facility]BED: [facility] : 36 AGE: 87 SEX: F ATTEND: Sa chapo Ortega MD Cardiology ADM AUTHOR: Curtis Sun MD * ALL edits or amendments must be made on the el [email or web address]/computer document * Subjective Chief complaint: Recurrent C. diff. HPI: WBC remains normal. Pt is on fidamoxicin and IV metronidazole. Review of Systems Constitutional: Denies: fever. Objective Physical Exam General appearance: awake Head/Eyes: atraumatic, clear cornea, normal conjunctiva/sclera, normal eyelids/ periorb, normocephalic Neck: full range of motion, non-tender, supple/n o meningismus Cardiovascular: regular rate rhythm Respiratory: symmetric expansion, no distress Abdomen: soft, no CVA tenderness, no distention, no guarding, no mass/ organomegaly, no rebound, Less tenderness Extremities: normal temperature, no cyanosis Neuro/ENGINEERING INSPECTION ASSISTANT: alert, normal speech Skin: normal turgor, no rash Diagnosis, Assessment Plan Free Text A P: Laboratory Tests 10/01/22 0452: [Embedded Image Not Available] Imaging: CXR reviewed 09/24 CTAP reviewed 09/20 Assessment: 1. Recurrent C. difficile colitis. Per family, p t responded better to fidaxomicin compared with vancomycin during prev ious episodes. 2. SIRS (fever, leukocytosis) likely due to abov e. 3. Left pleural effusion s/p chest tube removal. 4. 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 5. Allergy to penicillin (hives) and sulfas (pas sed out). Plan: 1. Fidaxomicin (day 8 of 10). 2. IV metronidazole (day 6 of 7) added as WBC in creased while on fidaxomicin. 3. Avoid systemic abxs if possible. 4. Monitor CBC. 5. Monitor kidney function. at 1149 RPT #: [id number] END OF REPORT 2022-09-30 16:43:00-00:00 [facility] ([facility]) Wound Care Progress Note REPORT#:[id number] REPORT STATUS: Signed DATE:09/30/22 TIME:1642 PATIENT: LESLEY BREAUX UNIT #: [id number] ROOM/BED: [place] [id number] : 36 AGE: 87 SEX: F ATTEND: Taun Ortega MD Cardiology ADM AUTHOR: Karlo Francis MD * ALL edits or amendments must be made on the el [employer]/computer document * Subjective Chief complaint: Wound Care HPI: no acute events Unable to obtain: medical condition Objective General VS: Last Documented: Result Date Time Pulse Ox 96 09/30 1228 B/P 134/73 09/30 1228 B/P Mean 93.5 09/30 1228 O2 Delivery Nasal cannula 09/30 1228 Temp 97.5 09/30 1228 Pulse 77 09/30 1228 Resp 15 09/30 1228 FiO2 32 09/30 0855 O2 Flow Rate 3 09/30 0855 PATIENT WEIGHT: Weight (lb): 99 Weight (oz): 3.33 Weight (kg): 44.906 Medications: Active Meds + DC'd Last 24 Hrs Patient Own Medication (PATIENT'S OWN MEDICATION ) REXULTI 1MG BEDTIME PO (PEND) Magnesium Sulfate (MAGNESIUM SULFATE 2 G IN SWFI 50 ML) 50 ML ONCE ONE IV (DC) Potassium Phosphate (POTASSIUM PHOSPHATE) 15 MMO L ONCE ONE IV (DC) Sodium Chloride (SODIUM CHLORIDE 0.9%) 250 ML Magnesium Oxide (MAG-OX 400) 400 MG Q8H PRN PRN PO Magnesium Sulfate (MAGNESIUM SULFATE 2 G IN SWFI 50 ML) 50 ML ASDIR PRN IV Magnesium Sulfate (MAGNESIUM SULFATE 2 G IN SWFI 50 ML) 50 ML Q2H PRN PRN IV Quetiapine Fumarate (SEROqueL) 12.5 MG BEDTIME P O (DC) Olanzapine (ZyPREXA) 2.5 MG DAILY PO (DC) Magnesium Oxide (MAG-OX 400) 400 MG Q8H PRN PRN PO Magnesium Sulfate (MAGNESIUM SULFATE 2 G IN SWFI 50 ML) 50 ML ASDIR PRN IV Magnesium Sulfate (MAGNESIUM SULFATE 2 G IN SWFI 50 ML) 50 ML Q2H PRN PRN IV Potassium Chloride (POTASSIUM CHLORIDE 10 MEQ/SW FI 50 ML) 50 ML ASDIR PRN IV Potassium Chloride (KCL 20 MEQ/SWFI 100 ML) 100 ML ASDIR PRN IV Potassium Chloride (KCL 20 MEQ/SWFI 100 ML) 100 ML ASDIR PRN IV Potassium Chloride (KCL 20 MEQ/SWFI 100 ML) 100 ML ASDIR PRN IV Potassium Chloride (K-DUR 20 mEq) 20 MEQ ASDIR P RN PO Potassium Chloride (K-DUR 20 mEq) 20 MEQ ASDIR P RN PO Midodrine (PROAMATINE) 5 MG TID PO Enoxaparin Sodium (lovENOX) 30 MG Q24H SUBQ Metronidazole/Sodium Chloride (metroNIDAZOLE 500 MG / 100 MLNS) 100 ML Q8HR IV Nystatin (MYCOSTATIN 15 GM POWDER) 1 APPLIC Q12H TOPICAL Mupirocin (BACTROBAN NASAL-ADULT ICU/STEVE MRSA PATIENTS) 1 APPLIC 0900,1700 NASAL (DC) Ondansetron HCl (ZOFRAN) 4 MG Q6H PRN PRN IV Norepinephrine Bitartrate (Levophed 16 MG/250 ML NS) 250 ML ASDIR IV Lactobacillus Acidophilus (BACID) 1 CAP BID PO Fidaxomicin (DIFICID) 200 MG Q12HR PO Furosemide (LASIX 20MG INJ) 20 MG Q12HR IV Sodium Chloride (SODIUM CHLORIDE) 10 ML ASDIR IV Zolpidem Tartrate (AMBIEN) 5 MG BEDTIME PRN PRN PO Acetylcysteine (MUCOMYST 20% 4 ML) 200 MG RTQ6H NEB Iopamidol (ISOVUE-300) 100 ML ONCE PRN IV Sodium Chloride (0.9% Sodium Chloride) 50 ML ONC E PRN IV Albuterol/Ipratropium (DUONEB) 3 ML RTQ6H PRN NV N NEB Iopamidol (ISOVUE-370) 100 ML ONCE PRN IV Atorvastatin Calcium (LIPITOR) 10 MG BEDTIME PO Sertraline HCl (ZOLOFT) 25 MG DAILY PO Acetaminophen (TYLENOL) 650 MG Q4H PRN PRN PO Ondansetron HCl (ZOFRAN ODT) 4 MG Q8H PRN PRN PO Sodium Chloride (SODIUM CHLORIDE) SALINE FLUSH ASDIR PRN IV Dietitian Nutrition assessment The data set between the solid lines has been im ported from the dietitian's assessment. BMI Calculated: 19.3 Nutrition related diagnosis: Severe malnutrition Nutrition diagnosis details: Nutrition problem: Severe malnutrition Nutrition etiology: Acute illness, Decreased/poo r appetite, Diarrhea Nutrition signs and symptoms: Moderate muscle lo ss, Moderate subcutaneous fat loss, 20% or more weight loss, Less than 25% int keesha Nutrition prescription: 1) Continue regular diet , honor food preferences 2) Will d/c Ensure Clear - pt reports they are too sweet 3) Continue Bannatrol 4) Encourage oral intake of food/supplements Dietitian name: Sandi Leal RD,AKOSUA Assessment completed: 09/30/22 Physical Exam General appearance: chronically ill appearing Respiratory: no distress Abdomen: non-tender Extremities: no edema Wound Assessment Wound Assessment 1: Type/cause: pressure Wound location: buttock, sacral region Tissue layers: limited to skin breakdown Site condition: no drainage, no ecchymosis, no erythema Stage of pressure ulcer: stage II Diagnosis, Assessment Plan Problem List/A P: 1. Decubitus ulcer of sacral region, stage 2 slight expansion in dimension. cleanse with soap and water, spray pt's home diaper rash supply then add in nystatin powder leave open to air carry this out once per RN shift. 2. Decubitus ulcer of buttock, stage 2 cleanse with soap and water, spray pt's home diaper rash supply then add in nystatin powder leave open to air carry this out once per RN shift. 3. Intertrigo cleanse with soap and water, spray pt's home diaper rash supply then add in nystatin powder leave open to air carry this out once per RN shift. 4. C. difficile diarrhea Electronically Signed by Karlo Francis MD on at 1644 RPT #: [id number] END OF REPORT 2022-09-30 12:57:00-00:00 [facility] ([facility]) Infectious Dis. Progress Note REPORT#:[id number] REPORT STATUS: Signed DATE:09/30/22 TIME:1257 PATIENT: LESLEY BREAUX UNIT #: [id number] ROOM/BED: [place] [id number] : 36 AGE: 87 SEX: F ATTEND: Tuan Ortega MD Cardiology ADM AUTHOR: Curtis Sun MD * ALL edits or amendments must be made on the el [employer]/computer document * Subjective Chief complaint: Recurrent C. diff. HPI: WBC remains normal. Pt is on fidamoxicin and IV metronidazole. Review of Systems Constitutional: Denies: fever. Objective General VS/I O: Vital Signs Date Temp Pulse Resp B/P B/P Mean Pulse Ox FiO2 09/29-09/30 36.4-37.3 77-83 15-16 132-147/60-73 87.8-95.4 93-98 32 Last Documented: Result Date Time Pulse Ox 96 09/30 1228 B/P 134/73 09/30 1228 B/P Mean 93.5 09/30 1228 O2 Delivery Nasal cannula 09/30 1228 Temp 36.4 09/30 1228 Pulse 77 09/30 1228 Resp 15 09/30 1228 FiO2 32 09/30 0855 O2 Flow Rate 3 09/30 0855 Vital Signs: Date Time Temp Pulse Resp B/P B/P Pulse O2 O2 F low FiO2 Mean Ox Delivery Rate 09/30 1228 36.4 77 15 134/73 93.5 96 Nasal cannula 09/30 0855 98 Nasal 3 32 cannula 09/30 0828 37.3 77 15 138/72 93.9 93 Room air 09/30 0540 36.4 79 16 147/60 89 98 Nasal 2 cannula 09/30 0043 36.5 82 16 147/70 95.4 95 09/29 2011 95 Nasal 3 cannula 09/29 1609 36.5 83 16 132/66 87.8 96 Room air 09/29 1600 Nasal 2 cannula 24 hour I O ending at 0700: 09/30 0700 09/29 1900 Intake Total 500 625.00 Output Total 1000 2150 Balance -500 -1525.00 Intake, IV 625.00 Intake, Oral 500 Output, Urine 1000 2150 PATIENT WEIGHT: Weight (lb): 99 Weight (oz): 3.33 Weight (kg): 44.906 Physical Exam General appearance: awake Head/Eyes: atraumatic, clear cornea, EOMI, staci l conjunctiva/sclera, normal eyelids/periorb, normocephalic Neck: full range of motion, non-tender, supple/n o meningismus Cardiovascular: regular rate rhythm Respiratory: symmetric expansion, no distress Abdomen: soft, no CVA tenderness, no distention, no guarding, no mass/ organomegaly, no rebound, Less tenderness Genitourinary: no flank pain Extremities: normal temperature, no cyanosis Neuro/ENGINEERING INSPECTION ASSISTANT: alert, normal speech Skin: normal turgor, no rash Diagnosis, Assessment Plan Free Text A P: Laboratory Tests 09/30/22 0421: [Embedded Image Not Available] 09/29/22 0425: [Embedded Image Not Available] Imaging: CXR reviewed 09/24 CTAP reviewed 09/20 Assessment: 1. Recurrent C. difficile colitis. Per family, p t responded better to fidaxomicin compared with vancomycin during prev ious episodes. 2. SIRS (fever, leukocytosis) likely due to abov e. 3. Left pleural effusion s/p chest tube removal. 4. 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 5. Allergy to penicillin (hives) and sulfas (pas sed out). Plan: 1. Fidaxomicin (day 7 of 10). 2. IV metronidazole (day 5 of 7) added as WBC in creased while on fidaxomicin. 3. Avoid systemic abxs if possible. 4. Monitor CBC. 5. Monitor kidney function. at 1259 RPT #: [id number] END OF REPORT 2022-09-30 10:09:00-00:00 [facility] ([facility]) Pulmonology Progress Note REPORT#:[id number] REPORT STATUS: Signed DATE:09/30/22 TIME:1009 PATIENT: LESLEY BREAUX UNIT #: [id number] ROOM/BED: [place] [id number] : 36 AGE: 87 SEX: F ATTEND: Tuan Ortega MD Cardiology ADM AUTHOR: Mauro Arce MD * ALL edits or amendments must be made on the [employer]/computer document * Subjective Chief complaint: mild abdominal pain No distress stable breathing on nasal cannula hemodynamically stable HPI: Pleasant 87-year-old lady who underwent pacemake r placement yesterday for tachybradycardia syndrome. She was having more shortnes s of breath and left-sided chest pain for which a CT angiogram of the chest was done, see full report . Images reviewed and discussed with patient and cheyanne hoover. There is a small to moderate size left pleural effusion with different densities suggesting possible blood product. There are als o chronic appearing reticular nodular, tree-in-bud type peripheral mostly lowe r zone infiltrates right more than left, no prior CT images to compare. The patient denies much in the way of chronic sp utum fevers chills sweats or significant weight loss. The patient has emphysema has seen [facility] doctors in the outpatient setting at [facility] but never smoked. Except described above, review of systems x14 is negative and normal. Review of Systems ROS Skin: Denies: itching, laceration. Allergy/Immun: Denies: anaphylaxis, hives. ENT: Denies: hearing loss, mouth pain. GI: Reports: abdominal pain, diarrhea. Denies: hemat emesis, hematochezia. Neuro: Denies: numbness, seizure. Objective General VS/I O: Last Documented: Result Date Time Pulse Ox 98 09/30 0855 FiO2 32 09/30 0855 O2 Delivery Nasal cannula 09/30 0855 O2 Flow Rate 3 09/30 0855 B/P 138/72 09/30 0828 B/P Mean 93.9 09/30 08 Temp 37.3 09/30 0828 Pulse 77 09/30 0828 Resp 15 09/30 0828 24 hour I O ending at 0700: 09/30 0700 09/29 1900 Intake Total 500 625.00 Output Total 1000 2150 Balance -500 -1525.00 Intake, IV 625.00 Intake, Oral 500 Output, Urine 1000 2150 PATIENT WEIGHT: Weight (lb): 99 Weight (oz): 3.33 Weight (kg): 44.906 Medications: Active Meds + DC'd Last 24 Hrs Magnesium Sulfate (MAGNESIUM SULFATE 2 G IN SWFI 50 ML) 50 ML ONCE ONE IV Potassium Phosphate (POTASSIUM PHOSPHATE) 15 MMO L ONCE ONE IV Sodium Chloride (SODIUM CHLORIDE 0.9%) 250 ML Magnesium Oxide (MAG-OX 400) 400 MG Q8H PRN PRN PO Magnesium Sulfate (MAGNESIUM SULFATE 2 G IN SWFI 50 ML) 50 ML ASDIR PRN IV Magnesium Sulfate (MAGNESIUM SULFATE 2 G IN SWFI 50 ML) 50 ML Q2H PRN PRN IV Quetiapine Fumarate (SEROqueL) 12.5 MG BEDTIME P O Olanzapine (ZyPREXA) 2.5 MG DAILY PO Magnesium Oxide (MAG-OX 400) 400 MG Q8H PRN PRN PO Magnesium Sulfate (MAGNESIUM SULFATE 2 G IN SWFI 50 ML) 50 ML ASDIR PRN IV Magnesium Sulfate (MAGNESIUM SULFATE 2 G IN SWFI 50 ML) 50 ML Q2H PRN PRN IV Potassium Chloride (POTASSIUM CHLORIDE 10 MEQ/SW FI 50 ML) 50 ML ASDIR PRN IV Potassium Chloride (KCL 20 MEQ/SWFI 100 ML) 100 ML ASDIR PRN IV Potassium Chloride (KCL 20 MEQ/SWFI 100 ML) 100 ML ASDIR PRN IV Potassium Chloride (KCL 20 MEQ/SWFI 100 ML) 100 ML ASDIR PRN IV Potassium Chloride (K-DUR 20 mEq) 20 MEQ ASDIR P RN PO Potassium Chloride (K-DUR 20 mEq) 20 MEQ ASDIR P RN PO Midodrine (PROAMATINE) 5 MG TID PO Enoxaparin Sodium (lovENOX) 30 MG Q24H SUBQ Metronidazole/Sodium Chloride (metroNIDAZOLE 500 MG / 100 MLNS) 100 ML Q8HR IV Nystatin (MYCOSTATIN 15 GM POWDER) 1 APPLIC Q12H TOPICAL Mupirocin (BACTROBAN NASAL-ADULT ICU/STEVE MRSA PATIENTS) 1 APPLIC 0900,1700 NASAL Ondansetron HCl (ZOFRAN) 4 MG Q6H PRN PRN IV Norepinephrine Bitartrate (Levophed 16 MG/250 ML NS) 250 ML ASDIR IV Lactated Ringer's (LACTATED RINGERS) 1,000 ML .Q 8H IV (DC) Lactobacillus Acidophilus (BACID) 1 CAP BID PO Fidaxomicin (DIFICID) 200 MG Q12HR PO Furosemide (LASIX 20MG INJ) 20 MG Q12HR IV Sodium Chloride (SODIUM CHLORIDE) 10 ML ASDIR IV Zolpidem Tartrate (AMBIEN) 5 MG BEDTIME PRN PRN PO Acetylcysteine (MUCOMYST 20% 4 ML) 200 MG RTQ6H NEB Iopamidol (ISOVUE-300) 100 ML ONCE PRN IV Sodium Chloride (0.9% Sodium Chloride) 50 ML ON CE PRN IV Tramadol HCl (ULTRAM) 25 MG Q4H PRN PRN PO (DC) Albuterol/Ipratropium (DUONEB) 3 ML RTQ6H PRN NV N NEB Iopamidol (ISOVUE-370) 100 ML ONCE PRN IV Atorvastatin Calcium (LIPITOR) 10 MG BEDTIME PO Sertraline HCl (ZOLOFT) 25 MG DAILY PO Acetaminophen (TYLENOL) 650 MG Q4H PRN PRN PO Ondansetron HCl (ZOFRAN ODT) 4 MG Q8H PRN PRN PO Sodium Chloride (SODIUM CHLORIDE) SALINE FLUSH ASDIR PRN IV Physical Exam Head/eyes: atraumatic, normocephalic, normal con junctiva/sclera ENT: ENT: moist mucosal membranes, normal pharynx Neck: non-tender, supple/no meningismus Cardiovascular: normal S1/S2, regular rate rhyt hm Respiratory/chest: decreased breath sounds, on o xygen, rales, bandage, sling Abdomen: soft, non-tender Extremities: edema, no clubbing, no cyanosis Musculoskeletal: normal inspection, no muscle sp asm Neuro/ENGINEERING INSPECTION ASSISTANT: alert, oriented X 3, no motor deficit s Skin: dry, intact Lymphatics: neck normal, no lymphadenopathy Results Findings/Data: Laboratory Tests 09/30/22420: [Embedded Image Not Available] Laboratory Tests 09/30 420 Chemistry Sodium (134 - 147 mmol/L) 140 Potassium (3.4 - 5.0 mmol/L) 3.0 L Chloride (100 - 108 mmol/L) 105 Carbon Dioxide (21 - 32 mmol/L) 33 H Anion Gap (4.0 - 15.0 GAP calc) 2.0 L BUN (7 - 18 MG/DL) 20 H Creatinine (0.6 - 1.0 MG/DL) 1.0 Glomerular Filtr Rate (>60 estGFR) 55 L Glucose (70 - 110 MG/DL) 102 Calcium (8.5 - 10.1 MG/DL) 8.0 L Phosphorus (2.5 - 4.9 MG/DL) 1.7 L Magnesium (1.8 - 2.4 MG/DL) 1.3 L Laboratory Tests 09/30 420 Hematology WBC (3.5 - 11.0 K/mm3) 7.2 RBC (4.70 - 6.10 M/mm3) 3.10 L Hgb (10.4 - 14.9 G/DL) 9.1 L Hct (31.5 - 44.1 %) 27.4 L MCV (84.5 - 98.6 Fl) 88.4 MCH (27.0 - 34.2 pg) 29.4 MCHC (31.5 - 34.0 G/DL) 33.2 RDW (11.5 - 14.5 SD) 13.6 Plt Count (150 - 450 K/mm3) 311 MPV (7.0 - 10.5 fL) 8.90 Neut % (Auto) (40 - 76 %) 72.0 Lymph % (Auto) (20.5 - 51.1 %) 13.7 L [place] % (Auto) (1.7 - 9.3 %) 7.3 Eos % (Auto) (0.0 - 6.0 %) 5.6 Baso % (Auto) (0.0 - 2.0 %) 0.4 Neut # (Auto) (1.8 - 7.6 K/mm3) 5.2 Lymph # (Auto) (0.6 - 3.2 K/mm3) 1.0 [place] # (Auto) (0.3 - 1.1 K/mm3) 0.5 Eos # (Auto) (0.0 - 0.4 K/mm3) 0.4 Baso # (Auto) (0.0 - 0.1 K/mm3) 0.0 Abs Immat Gran (auto) (0.00 - 0.03 x10 3/uL) 0. 07 H Add Manual Diff (CRITERIA DIFF/SCN) NO Immature Gran % (0.0 - 5.0 %) 1.0 Nucleated RBC % (0.0 - 1.0 /100WBC%) 0.0 Diagnosis, Assessment Plan Free Text A P: 1.Status post pacemaker, tachybradycardia syndr ome, history of atrial fibrillation 2. Left hemothorax that was drained 3. Recurrent C. difficile colitis 4. Emphysema 5. Hypertension 6. Lidocaine allergy cont midodrine TID Replace electrolytes She was noted to have C. difficile colitis Antibiotics for C Diff Probiotics Incentive spirometry Last chest x-ray stable Taper oxygen Wound care for sacral wound Electronically Signed by Mauro Arce MD on 09/08 05/30 at 1009 RPT #: [id number] END OF REPORT 2022-09-30 10:03:00-00:00 [facility] ([facility]) Hospitalist Progress Note REPORT#:[id number] REPORT STATUS: Signed DATE:09/30/22 TIME:1002 PATIENT: LESLEY BREAUX UNIT #: [id number] ROOM/BED: [place] [id number] : 36 AGE: 87 SEX: F ATTEND: Tuan Ortega MD Cardiology ADM AUTHOR: Art Tavera MD * ALL edits or amendments must be made on the [employer] document * Subjective Chief complaint: Sleeping comfortably Denies any abdominal pain Continues to have some diarrhea on and off Objective General VS/I O: Vital Signs: Date Time Temp Pulse Resp B/P B/P Pulse O2 O2 F low FiO2 Mean Ox Delivery Rate 09/30 0855 98 Nasal 3 32 cannula 09/30 0828 99.1 77 15 138/72 93.9 93 Room air 09/30 0540 97.6 79 16 147/60 89 98 Nasal 2 cannula 09/30 0043 97.7 82 16 147/70 95.4 95 09/29 2010 95 Nasal 3 cannula 09/29 1609 97.7 83 16 132/66 87.8 96 Room air 09/29 1600 Nasal 2 cannula 09/29 1236 97.7 75 16 148/63 91.1 96 Nasal cannula 09/29 1200 Nasal 2 cannula 24 hour I O ending at 0700: 09/30 0700 09/29 1900 Intake Total 500 625.00 Output Total 1000 2150 Balance -500 -1525.00 Intake, IV 625.00 Intake, Oral 500 Output, Urine 1000 2150 PATIENT WEIGHT: Weight (lb): 99 Weight (oz): 3.33 Weight (kg): 44.906 Medications: Active Meds + DC'd Last 24 Hrs Magnesium Sulfate (MAGNESIUM SULFATE 2 G IN SWFI 50 ML) 50 ML ONCE ONE IV Potassium Phosphate (POTASSIUM PHOSPHATE) 15 MMO L ONCE ONE IV Sodium Chloride (SODIUM CHLORIDE 0.9%) 250 ML Magnesium Oxide (MAG-OX 400) 400 MG Q8H PRN PRN PO Magnesium Sulfate (MAGNESIUM SULFATE 2 G IN SWFI 50 ML) 50 ML ASDIR PRN IV Magnesium Sulfate (MAGNESIUM SULFATE 2 G IN SWFI 50 ML) 50 ML Q2H PRN PRN IV Quetiapine Fumarate (SEROqueL) 12.5 MG BEDTIME P O Olanzapine (ZyPREXA) 2.5 MG DAILY PO Magnesium Oxide (MAG-OX 400) 400 MG Q8H PRN PRN PO Magnesium Sulfate (MAGNESIUM SULFATE 2 G IN SWFI 50 ML) 50 ML ASDIR PRN IV Magnesium Sulfate (MAGNESIUM SULFATE 2 G IN SWFI 50 ML) 50 ML Q2H PRN PRN IV Potassium Chloride (POTASSIUM CHLORIDE 10 MEQ/SW FI 50 ML) 50 ML ASDIR PRN IV Potassium Chloride (KCL 20 MEQ/SWFI 100 ML) 100 ML ASDIR PRN IV Potassium Chloride (KCL 20 MEQ/SWFI 100 ML) 100 ML ASDIR PRN IV Potassium Chloride (KCL 20 MEQ/SWFI 100 ML) 100 ML ASDIR PRN IV Potassium Chloride (K-DUR 20 mEq) 20 MEQ ASDIR P RN PO Potassium Chloride (K-DUR 20 mEq) 20 MEQ ASDIR P RN PO Midodrine (PROAMATINE) 5 MG TID PO Enoxaparin Sodium (lovENOX) 30 MG Q24H SUBQ Metronidazole/Sodium Chloride (metroNIDAZOLE 500 MG / 100 MLNS) 100 ML Q8HR IV Nystatin (MYCOSTATIN 15 GM POWDER) 1 APPLIC Q12H TOPICAL Mupirocin (BACTROBAN NASAL-ADULT ICU/STEVE MRSA PATIENTS) 1 APPLIC 0900,1700 NASAL Ondansetron HCl (ZOFRAN) 4 MG Q6H PRN PRN IV Norepinephrine Bitartrate (Levophed 16 MG/250 ML NS) 250 ML ASDIR IV Lactated Ringer's (LACTATED RINGERS) 1,000 ML .Q 8H IV (DC) Lactobacillus Acidophilus (BACID) 1 CAP BID PO Fidaxomicin (DIFICID) 200 MG Q12HR PO Furosemide (LASIX 20MG INJ) 20 MG Q12HR IV Sodium Chloride (SODIUM CHLORIDE) 10 ML ASDIR IV Zolpidem Tartrate (AMBIEN) 5 MG BEDTIME PRN PRN PO Acetylcysteine (MUCOMYST 20% 4 ML) 200 MG RTQ6H NEB Iopamidol (ISOVUE-300) 100 ML ONCE PRN IV Sodium Chloride (0.9% Sodium Chloride) 50 ML ONC E PRN IV Tramadol HCl (ULTRAM) 25 MG Q4H PRN PRN PO (DC) Albuterol/Ipratropium (DUONEB) 3 ML RTQ6H PRN NV N NEB Iopamidol (ISOVUE-370) 100 ML ONCE PRN IV Atorvastatin Calcium (LIPITOR) 10 MG BEDTIME PO Sertraline HCl (ZOLOFT) 25 MG DAILY PO Acetaminophen (TYLENOL) 650 MG Q4H PRN PRN PO Ondansetron HCl (ZOFRAN ODT) 4 MG Q8H PRN PRN PO Sodium Chloride (SODIUM CHLORIDE) SALINE FLUSH ASDIR PRN IV Dietitian nutrition assessment The data set between the solid lines has been im ported from the dietitian's assessment. BMI Calculated: 19.3 Nutrition related diagnosis: Severe malnutrition Nutrition diagnosis details: Nutrition problem: Severe malnutrition Nutrition etiology: Acute illness, Decreased/poo r appetite, Diarrhea Nutrition signs and symptoms: Moderate muscle lo ss, Moderate subcutaneous fat loss, 20% or more weight loss, Less than 25% int keesha Nutrition prescription: 1) Continue full liquid diet, advance as tolerated 2) Changed Ensure HP to Ensure clear per pt request . 3) Banatrol for diarrhea 4) Encourage oral intake of food/supplements Dietitian name: Marcia Espinal, DIET Assessment completed: 09/27/22 Physical Exam General appearance: sleeping comfortably Head/Eyes: atraumatic, normocephalic ENT: dry mucosal membrane Neck: supple/no meningismus Cardiovascular: normal heart sounds, regular rat e rhythm Respiratory: decreased breath sounds, on oxygen, symmetric expansion, no distress, PPM site c/d/i, no overlying edema, er ythema or warmth Abdomen: non-tender, soft Genitourinary: no bladder distention Extremities: moves all, no edema Musculoskeletal: no CVA tenderness Neuro/ENGINEERING INSPECTION ASSISTANT: alert, normal speech Skin: dry Psychiatry: normal affect, normal mood Results Findings/Data: Laboratory Tests 09/30/22420: [Embedded Image Not Available] 09/29/22 0426: [Embedded Image Not Available] 09/29/22424: [Embedded Image Not Available] Laboratory Tests 09/30 420 Chemistry Sodium (134 - 147 mmol/L) 140 Potassium (3.4 - 5.0 mmol/L) 3.0 L Chloride (100 - 108 mmol/L) 105 Carbon Dioxide (21 - 32 mmol/L) 33 H Anion Gap (4.0 - 15.0 GAP calc) 2.0 L BUN (7 - 18 MG/DL) 20 H Creatinine (0.6 - 1.0 MG/DL) 1.0 Glomerular Filtr Rate (>60 estGFR) 55 L Glucose (70 - 110 MG/DL) 102 Calcium (8.5 - 10.1 MG/DL) 8.0 L Phosphorus (2.5 - 4.9 MG/DL) 1.7 L Magnesium (1.8 - 2.4 MG/DL) 1.3 L Laboratory Tests 09/30 420 Hematology WBC (3.5 - 11.0 K/mm3) 7.2 RBC (4.70 - 6.10 M/mm3) 3.10 L Hgb (10.4 - 14.9 G/DL) 9.1 L Hct (31.5 - 44.1 %) 27.4 L MCV (84.5 - 98.6 Fl) 88.4 MCH (27.0 - 34.2 pg) 29.4 MCHC (31.5 - 34.0 G/DL) 33.2 RDW (11.5 - 14.5 SD) 13.6 Plt Count (150 - 450 K/mm3) 311 MPV (7.0 - 10.5 fL) 8.90 Neut % (Auto) (40 - 76 %) 72.0 Lymph % (Auto) (20.5 - 51.1 %) 13.7 L [place] % (Auto) (1.7 - 9.3 %) 7.3 Eos % (Auto) (0.0 - 6.0 %) 5.6 Baso % (Auto) (0.0 - 2.0 %) 0.4 Neut # (Auto) (1.8 - 7.6 K/mm3) 5.2 Lymph # (Auto) (0.6 - 3.2 K/mm3) 1.0 [place] # (Auto) (0.3 - 1.1 K/mm3) 0.5 Eos # (Auto) (0.0 - 0.4 K/mm3) 0.4 Baso # (Auto) (0.0 - 0.1 K/mm3) 0.0 Abs Immat Gran (auto) (0.00 - 0.03 x10 3/uL) 0. 07 H Add Manual Diff (CRITERIA DIFF/SCN) NO Immature Gran % (0.0 - 5.0 %) 1.0 Nucleated RBC % (0.0 - 1.0 /100WBC%) 0.0 Diagnosis, Assessment Plan Free Text DxA P Notes Free text DxA P notes: 87 y/o female with PMHx of H TN, HLD, COPD, paroxysmal Afib, sick sinus syndrome, tachybrady syndome admitted for: Paroxysmal Afib, sick sinus syndrome, tachybrady syndrome s/p PPM placement s/p PPM placement by Cardiology Dr. 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 Pain control with Tylenol/Tramadol PRN Continue home coreg Hold home Eliquis due to anemia with possible he mothorax Complex moderate left pleural effusion / hemotho rax, s/p R sided Cx tube in place with 600c of bloody fluid removed Appreciate pulm medicine, pain control Status post removal of the chest tube Acute normocytic anemia, possibly due to acute b lood loss with possible hemothorax Status post transfusion Monitor H H closely Hypotension with a history of hypertension Hold home coreg, losartan Transferred to ICU Started on Levophed We will try to wean down to MAP of 65 Added on midodrine COPD Not in acute exacerbation Duoneb tx PRN C. difficile colitis Started on fidaxomicin ID consulted Continues to have diarrhea Add on probiotics Hyponatremia Electrolytes monitor and replace accordingly Acute kidney injury Renal parameters monitored DVT prophylaxis with SCDs, held home Eliquis due to anemia Full code Total critical care time used was 33 minutes Off Levophed Noted to have some bleeding in the rectal tube Hemoglobin monitored We will DC rectal tube PT OT evaluation May need placement Discussed with case management Discussed with ID and pulmonology Monitor closely under telemetry Patient has been psychosis , Possibly ICU relate d We will give Seroquel at night Hemoglobin monitored And is stable Awaiting placement Discussed with case management Electronically Signed by Art Tavera MD on at 1008 RPT #: [id number] END OF REPORT 2022-09-29 22:39:00-00:00 [facility] ([facility]) Wound Care Progress Note REPORT#:[id number] REPORT STATUS: Signed DATE:09/29/22 TIME:2238 PATIENT: LESLEY BREAUX UNIT #: [id number] ROOM/BED: [place] [id number] : 36 AGE: 87 SEX: F ATTEND: Tuan Ortega MD Cardiology ADM AUTHOR: Karlo Francis MD * ALL edits or amendments must be made on the [employer]/computer document * Subjective Chief complaint: Wound Care HPI: no acute events Unable to obtain: medical condition Objective General VS: Last Documented: Result Date Time Pulse Ox 95 09/29 2010 O2 Delivery Nasal cannula 09/29 2010 O2 Flow Rate 3 09/29 2010 B/P 132/66 09/29 1609 B/P Mean 87.8 09/29 1609 Temp 97.7 09/29 1609 Pulse 83 09/29 1609 Resp 16 09/29 1609 FiO2 30 09/28 1909 PATIENT WEIGHT: Weight (lb): 99 Weight (oz): 3.33 Weight (kg): 44.906 Medications: Active Meds + DC'd Last 24 Hrs Quetiapine Fumarate (SEROqueL) 12.5 MG BEDTIME P O Olanzapine (ZyPREXA) 2.5 MG DAILY PO Magnesium Oxide (MAG-OX 400) 400 MG Q8H PRN PRN PO Magnesium Sulfate (MAGNESIUM SULFATE 2 G IN SWFI 50 ML) 50 ML ASDIR PRN IV Magnesium Sulfate (MAGNESIUM SULFATE 2 G IN SWFI 50 ML) 50 ML Q2H PRN PRN IV Potassium Chloride (POTASSIUM CHLORIDE 10 MEQ/SW FI 50 ML) 50 ML ASDIR PRN IV Potassium Chloride (KCL 20 MEQ/SWFI 100 ML) 100 ML ASDIR PRN IV Potassium Chloride (KCL 20 MEQ/SWFI 100 ML) 100 ML ASDIR PRN IV Potassium Chloride (KCL 20 MEQ/SWFI 100 ML) 100 ML ASDIR PRN IV Potassium Chloride (K-DUR 20 mEq) 20 MEQ ASDIR P RN PO Potassium Chloride (K-DUR 20 mEq) 20 MEQ ASDIR P RN PO Midodrine (PROAMATINE) 5 MG TID PO Enoxaparin Sodium (lovENOX) 30 MG Q24H SUBQ Metronidazole/Sodium Chloride (metroNIDAZOLE 500 MG / 100 MLNS) 100 ML Q8HR IV Nystatin (MYCOSTATIN 15 GM POWDER) 1 APPLIC Q12H TOPICAL Mupirocin (BACTROBAN NASAL-ADULT ICU/STEVE MRSA PATIENTS) 1 APPLIC 0900,1700 NASAL Ondansetron HCl (ZOFRAN) 4 MG Q6H PRN PRN IV Norepinephrine Bitartrate (Levophed 16 MG/250 ML NS) 250 ML ASDIR IV Lactated Ringer's (LACTATED RINGERS) 1,000 ML .Q 8H IV (DC) Lactobacillus Acidophilus (BACID) 1 CAP BID PO Fidaxomicin (DIFICID) 200 MG Q12HR PO Furosemide (LASIX 20MG INJ) 20 MG Q12HR IV Sodium Chloride (SODIUM CHLORIDE) 10 ML ASDIR IV Zolpidem Tartrate (AMBIEN) 5 MG BEDTIME PRN PRN PO Acetylcysteine (MUCOMYST 20% 4 ML) 200 MG RTQ6H NEB Iopamidol (ISOVUE-300) 100 ML ONCE PRN IV Sodium Chloride (0.9% Sodium Chloride) 50 ML ONC E PRN IV Tramadol HCl (ULTRAM) 25 MG Q4H PRN PRN PO (DC) Albuterol/Ipratropium (DUONEB) 3 ML RTQ6H PRN NV N NEB Iopamidol (ISOVUE-370) 100 ML ONCE PRN IV Atorvastatin Calcium (LIPITOR) 10 MG BEDTIME PO Sertraline HCl (ZOLOFT) 25 MG DAILY PO Acetaminophen (TYLENOL) 650 MG Q4H PRN PRN PO Ondansetron HCl (ZOFRAN ODT) 4 MG Q8H PRN PRN PO Sodium Chloride (SODIUM CHLORIDE) SALINE FLUSH ASDIR PRN IV Dietitian Nutrition assessment The data set between the solid lines has been im ported from the dietitian's assessment. BMI Calculated: 19.3 Nutrition related diagnosis: Severe malnutrition Nutrition diagnosis details: Nutrition problem: Severe malnutrition Nutrition etiology: Acute illness, Decreased/poo r appetite, Diarrhea Nutrition signs and symptoms: Moderate muscle lo ss, Moderate subcutaneous fat loss, 20% or more weight loss, Less than 25% int keesha Nutrition prescription: 1) Continue full liquid diet, advance as tolerated 2) Changed Ensure HP to Ensure clear per pt request . 3) Banatrol for diarrhea 4) Encourage oral intake of food/supplements Dietitian name: Marcia Espinal, DIET Assessment completed: 09/27/22 Physical Exam General appearance: chronically ill appearing Respiratory: no distress Abdomen: non-tender Extremities: no edema Wound Assessment Wound Assessment 1: Type/cause: pressure Wound location: buttock, sacral region Tissue layers: limited to skin breakdown Site condition: no drainage, no ecchymosis, no erythema Stage of pressure ulcer: stage II Diagnosis, Assessment Plan Problem List/A P: 1. Decubitus ulcer of sacral region, stage 2 slight expansion in dimension. cleanse with soap and water, spray pt's home diaper rash supply then add in nystatin powder leave open to air carry this out once per RN shift. 2. Decubitus ulcer of buttock, stage 2 cleanse with soap and water, spray pt's home diaper rash supply then add in nystatin powder leave open to air carry this out once per RN shift. 3. Intertrigo cleanse with soap and water, spray pt's home diaper rash supply then add in nystatin powder leave open to air carry this out once per RN shift. 4. C. difficile diarrhea Electronically Signed by Karlo Francis MD on at 2241 RPT #: [id number] END OF REPORT 2022-09-29 11:47:00-00:00 [facility] ([facility] Pulmonology Progress Note REPORT#:[id number] REPORT STATUS: Signed DATE:09/29/22 TIME:1147 PATIENT: LESLEY BREAUX UNIT #: [id number] ROOM/BED: [place] [id number] : 36 AGE: 87 SEX: F ATTEND: Tuan Ortega MD Cardiology ADM AUTHOR: Mauro Arce MD * ALL edits or amendments must be made on the [employer]/computer document * Subjective Chief complaint: mild abdominal pain rectal tube hemodynamically stable HPI: Pleasant 87-year-old lady who underwent pacemake r placement yesterday for tachybradycardia syndrome. She was having more shortnes s of breath and left-sided chest pain for which a CT angiogram of the chest was done, see full report . Images reviewed and discussed with patient and cheyanne hoover. There is a small to moderate size left pleural effusion with different densities suggesting possible blood product. There are als o chronic appearing reticular nodular, tree-in-bud type peripheral mostly lowe r zone infiltrates right more than left, no prior CT images to compare. The patient denies much in the way of chronic sp utum fevers chills sweats or significant weight loss. The patient has emphysema has seen pulmo paly doctors in the outpatient setting at [facility] but never smoked. Except described above, review of systems x14 is negative and normal. Review of Systems ROS Skin: Denies: itching, laceration. Allergy/Immun: Denies: anaphylaxis, hives. ENT: Denies: hearing loss, mouth pain. GI: Reports: abdominal pain, diarrhea. Denies: hemat emesis, hematochezia. Neuro: Denies: numbness, seizure. Objective General VS/I O: Last Documented: Result Date Time O2 Delivery Nasal cannula 09/29 0800 O2 Flow Rate 2 09/29 0800 Pulse Ox 95 09/29 0755 B/P 144/57 09/29 0755 B/P Mean 86.0 09/29 0755 Temp 36.5 09/29 0755 Pulse 89 09/29 0755 Resp 16 09/29 0755 FiO2 30 09/28 1909 24 hour I O ending at 0700: 09/29 0700 09/28 1900 Intake Total 20 Output Total 800 1100 Balance -800 -1080 Intake, Oral 20 Intake, Oral 0 Supplement Number 1 Bowel Movements Output, Urine 800 1100 PATIENT WEIGHT: Weight (lb): 99 Weight (oz): 3.33 Weight (kg): 44.906 Medications: Active Meds + DC'd Last 24 Hrs Magnesium Sulfate/Dextrose (MAGNESIUM SULFATE 1 G IN DEXTROSE 5% 100 ML) 100 ML ONCE ONE IV (CAN) Magnesium Oxide (MAG-OX 400) 400 MG Q8H PRN PRN PO Magnesium Sulfate (MAGNESIUM SULFATE 2 G IN SWFI 50 ML) 50 ML ASDIR PRN IV Magnesium Sulfate (MAGNESIUM SULFATE 2 G IN SWFI 50 ML) 50 ML Q2H PRN PRN IV Potassium Chloride (POTASSIUM CHLORIDE 10 MEQ/SW FI 50 ML) 50 ML ASDIR PRN IV Potassium Chloride (KCL 20 MEQ/SWFI 100 ML) 100 ML ASDIR PRN IV Potassium Chloride (KCL 20 MEQ/SWFI 100 ML) 100 ML ASDIR PRN IV Potassium Chloride (KCL 20 MEQ/SWFI 100 ML) 100 ML ASDIR PRN IV Potassium Chloride (K-DUR 20 mEq) 20 MEQ ASDIR P RN PO Potassium Chloride (K-DUR 20 mEq) 20 MEQ ASDIR P RN PO Midodrine (PROAMATINE) 5 MG TID PO Enoxaparin Sodium (lovENOX) 30 MG Q24H SUBQ Pantoprazole (PROTONIX) 40 MG DAILY PO (DC) Metronidazole/Sodium Chloride (metroNIDAZOLE 500 MG / 100 MLNS) 100 ML Q8HR IV Nystatin (MYCOSTATIN 15 GM POWDER) 1 APPLIC Q12H TOPICAL Mupirocin (BACTROBAN NASAL-ADULT ICU/STEVE MRSA PATIENTS) 1 APPLIC 0900,1700 NASAL Ondansetron HCl (ZOFRAN) 4 MG Q6H PRN PRN IV Norepinephrine Bitartrate (Levophed 16 MG/250 ML NS) 250 ML ASDIR IV Lactated Ringer's (LACTATED RINGERS) 1,000 ML .Q 8H IV Lactobacillus Acidophilus (BACID) 1 CAP BID PO Fidaxomicin (DIFICID) 200 MG Q12HR PO Furosemide (LASIX 20MG INJ) 20 MG Q12HR IV Sodium Chloride (SODIUM CHLORIDE) 10 ML ASDIR IV Zolpidem Tartrate (AMBIEN) 5 MG BEDTIME PRN PRN PO Acetylcysteine (MUCOMYST 20% 4 ML) 200 MG RTQ6H NEB Iopamidol (ISOVUE-300) 100 ML ONCE PRN IV Sodium Chloride (0.9% Sodium Chloride) 50 ML ONC E PRN IV Tramadol HCl (ULTRAM) 25 MG Q4H PRN PRN PO Albuterol/Ipratropium (DUONEB) 3 ML RTQ6H PRN NV N NEB Iopamidol (ISOVUE-370) 100 ML ONCE PRN IV Atorvastatin Calcium (LIPITOR) 10 MG BEDTIME PO Sertraline HCl (ZOLOFT) 25 MG DAILY PO Acetaminophen (TYLENOL) 650 MG Q4H PRN PRN PO Ondansetron HCl (ZOFRAN ODT) 4 MG Q8H PRN PRN PO Sodium Chloride (SODIUM CHLORIDE) SALINE FLUSH ASDIR PRN IV Physical Exam Head/eyes: atraumatic, normocephalic, normal con junctiva/sclera ENT: ENT: moist mucosal membranes, normal pharynx Neck: non-tender, supple/no meningismus Cardiovascular: normal S1/S2, regular rate rhyth m Respiratory/chest: decreased breath sounds, on o xygen, rales, bandage, sling Abdomen: soft, non-tender Extremities: edema, no clubbing, no cyanosis Musculoskeletal: normal inspection, no muscle sp asm Neuro/ENGINEERING INSPECTION ASSISTANT: alert, oriented X 3, no motor deficit s Skin: dry, intact Lymphatics: neck normal, no lymphadenopathy Results Findings/Data: Laboratory Tests 09/29/22425: [Embedded Image Not Available] 09/29/22424: [Embedded Image Not Available] Laboratory Tests 09/29 425 Chemistry Sodium (134 - 147 mmol/L) 139 Potassium (3.4 - 5.0 mmol/L) 3.6 Chloride (100 - 108 mmol/L) 104 Carbon Dioxide (21 - 32 mmol/L) 29 Anion Gap (4.0 - 15.0 GAP calc) 6.0 BUN (7 - 18 MG/DL) 21 H Creatinine (0.6 - 1.0 MG/DL) 0.8 Glomerular Filtr Rate (>60 estGFR) >=60 max est imate Glucose (70 - 110 MG/DL) 93 Calcium (8.5 - 10.1 MG/DL) 8.5 Phosphorus (2.5 - 4.9 MG/DL) 2.5 Magnesium (1.8 - 2.4 MG/DL) 1.8 Total Bilirubin (0.2 - 1.2 MG/DL) 1.00 AST (15 - 37 Unit/L) 33 ALT (12 - 78 Unit/L) 23 Total Alk Phosphatase (45 - 117 Unit/L) 109 Total Protein (6.4 - 8.2 G/DL) 4.6 L Albumin (3.4 - 5.0 G/DL) 1.9 L Globulin (GM/dL) 2.7 Albumin/Globulin Ratio (1.2 - 2.2 RATIO) 0.7 L Laboratory Tests 09/29 0425 Hematology WBC (3.5 - 11.0 K/mm3) 7.0 RBC (4.70 - 6.10 M/mm3) 3.01 L Hgb (10.4 - 14.9 G/DL) 8.9 L Hct (31.5 - 44.1 %) 27.0 L MCV (84.5 - 98.6 Fl) 89.7 MCH (27.0 - 34.2 pg) 29.6 MCHC (31.5 - 34.0 G/DL) 33.0 RDW (11.5 - 14.5 SD) 13.7 Plt Count (150 - 450 K/mm3) 286 MPV (7.0 - 10.5 fL) 9.10 Neut % (Auto) (40 - 76 %) 72.5 Lymph % (Auto) (20.5 - 51.1 %) 11.6 L [place] % (Auto) (1.7 - 9.3 %) 6.9 Eos % (Auto) (0.0 - 6.0 %) 7.3 H Baso % (Auto) (0.0 - 2.0 %) 0.6 Neut # (Auto) (1.8 - 7.6 K/mm3) 5.1 Lymph # (Auto) (0.6 - 3.2 K/mm3) 0.8 [place] # (Auto) (0.3 - 1.1 K/mm3) 0.5 Eos # (Auto) (0.0 - 0.4 K/mm3) 0.5 H Baso # (Auto) (0.0 - 0.1 K/mm3) 0.0 Abs Immat Gran (auto) (0.00 - 0.03 x10 3/uL) 0. 08 H Add Manual Diff (CRITERIA DIFF/SCN) NO Immature Gran % (0.0 - 5.0 %) 1.1 Nucleated RBC % (0.0 - 1.0 /100WBC%) 0.0 Diagnosis, Assessment Plan Free Text A P: 1.Status post pacemaker, tachybradycardia syndr ome, history of atrial fibrillation 2. Left hemothorax that was drained 3. Recurrent C. difficile colitis 4. Emphysema 5. Hypertension 6. Lidocaine allergy cont midodrine TID PT OT She was noted to have C. difficile colitis Antibiotics for C Diff Probiotics Wound care for sacral wound Incentive spirometer Oxygen by nasal cannula Electronically Signed by Mauro Arce MD on 09/08 04/29 at 1149 RPT #: [id number] END OF REPORT 2022-09-29 10:22:00-00:00 [facility] ([facility]) Infectious Dis. Progress Note REPORT#:[id number] REPORT STATUS: Signed DATE:09/29/22 TIME:1022 PATIENT: LESLEY BREAUX UNIT #: [id number] ROOM/BED: [place] [id number] : 36 AGE: 87 SEX: F ATTEND: Tuan Ortega MD Cardiology ADM AUTHOR: Curtis Sun MD * ALL edits or amendments must be made on the el [email or web address] document * Subjective Chief complaint: Recurrent C. diff. HPI: Leukocytosis resolved. Pt is on fidamoxi earl and IV metronidazole. Diarrhea and abdominal pain resolving. Review of Systems Constitutional: Denies: fever. Objective Physical Exam Head/Eyes: atraumatic, clear cornea, EOMI, staci l conjunctiva/sclera, normal eyelids/periorb, normocephalic Neck: full range of motion, non-tender, supple/n o meningismus Cardiovascular: regular rate rhythm Respiratory: symmetric expansion, no distress Abdomen: normal bowel sounds, soft, no CVA tende rness, no distention, no guarding, no mass/organomegaly, no rebound, Less tenderness Extremities: normal temperature, no cyanosis Neuro/ENGINEERING INSPECTION ASSISTANT: alert, normal speech Skin: normal turgor, no rash Diagnosis, Assessment Plan Free Text A P: Laboratory Tests 09/28/22 0221: [Embedded Image Not Available] 09/28/22 0220: [Embedded Image Not Available] Imaging: CXR reviewed 09/24 CTAP reviewed 09/20 Assessment: 1. Recurrent C. difficile colitis. Per family, p t responded better to fidaxomicin compared with vancomycin during prev ious episodes. 2. SIRS (fever, leukocytosis) likely due to abov e. 3. Left pleural effusion s/p chest tube removal. 4. 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 5. Allergy to penicillin (hives) and sulfas (pas sed out). Plan: 1. Fidaxomicin (day 6 of 10). 2. IV metronidazole (day 4) added as WBC increas ed while on fidaxomicin. 3. Avoid systemic abxs if possible. 4. Monitor CBC. 5. Monitor kidney function. at 1316 RPT #: [id number] END OF REPORT 2022-09-29 10:19:00-00:00 [facility] ([facility] Hospitalist Progress Note REPORT#:[id number] REPORT STATUS: Signed DATE:09/29/22 TIME:1019 PATIENT: LESLEY BREAUX UNIT #: [id number] ROOM/BED: [place] [id number] : 36 AGE: 87 SEX: F ATTEND: Tuan Ortega MD Cardiology ADM AUTHOR: Art Tavera MD * ALL edits or amendments must be made on the el [email or web address] document * Subjective Chief complaint: Still has some blood in the rectal tube Denies any abdominal pain Continues to have some diarrhea on and off Objective General VS/I O: Vital Signs: Date Time Temp Pulse Resp B/P B/P Pulse O2 O2 F low FiO2 Mean Ox Delivery Rate 09/29 0755 97.7 89 16 144/57 86.0 95 Room air 09/29 0644 96 Nasal 2 cannula 09/29 0406 97.7 73 16 125/65 85.1 96 09/29 0000 Nasal 2 cannula 09/28 2340 97.7 77 16 134/76 95.4 96 09/28 1948 97.5 74 16 141/63 88.6 96 09/28 1909 97 Nasal 2 30 cannula 09/28 1733 97.5 74 16 118/53 74.3 97 Room air 09/28 1540 99.0 72 14 119/70 86 96 09/28 1341 96 Nasal 2 28 cannula 09/28 1330 70 16 122/45 79 99 09/28 1315 72 14 139/63 91 98 09/28 1300 75 15 101/55 76 99 09/28 1245 78 18 104/53 77 98 09/28 1230 81 17 99/49 70 97 09/28 1215 80 17 107/51 73 96 09/28 1200 72 14 96/49 70 100 09/28 1145 73 16 94/45 65 100 09/28 1130 71 15 101/50 72 100 09/28 1115 73 18 103/49 71 97 24 hour I O ending at 0700: 09/29 0700 09/28 1900 Intake Total 20 Output Total 800 1100 Balance -800 -1080 Intake, Oral 20 Intake, Oral 0 Supplement Number 1 Bowel Movements Output, Urine 800 1100 PATIENT WEIGHT: Weight (lb): 99 Weight (oz): 3.33 Weight (kg): 44.906 Medications: Active Meds + DC'd Last 24 Hrs Magnesium Sulfate/Dextrose (MAGNESIUM SULFATE 1 G IN DEXTROSE 5% 100 ML) 100 ML ONCE ONE IV (CAN) Magnesium Oxide (MAG-OX 400) 400 MG Q8H PRN PRN PO Magnesium Sulfate (MAGNESIUM SULFATE 2 G IN SWFI 50 ML) 50 ML ASDIR PRN IV Magnesium Sulfate (MAGNESIUM SULFATE 2 G IN SWFI 50 ML) 50 ML Q2H PRN PRN IV Potassium Chloride (POTASSIUM CHLORIDE 10 MEQ/SW FI 50 ML) 50 ML ASDIR PRN IV Potassium Chloride (KCL 20 MEQ/SWFI 100 ML) 100 ML ASDIR PRN IV Potassium Chloride (KCL 20 MEQ/SWFI 100 ML) 100 ML ASDIR PRN IV Potassium Chloride (KCL 20 MEQ/SWFI 100 ML) 100 ML ASDIR PRN IV Potassium Chloride (K-DUR 20 mEq) 20 MEQ ASDIR P RN PO Potassium Chloride (K-DUR 20 mEq) 20 MEQ ASDIR PRN PO Midodrine (PROAMATINE) 5 MG TID PO Enoxaparin Sodium (lovENOX) 30 MG Q24H SUBQ Pantoprazole (PROTONIX) 40 MG DAILY PO (DC) Metronidazole/Sodium Chloride (metroNIDAZOLE 500 MG / 100 MLNS) 100 ML Q8HR IV Nystatin (MYCOSTATIN 15 GM POWDER) 1 APPLIC Q12H TOPICAL Mupirocin (BACTROBAN NASAL-ADULT ICU/STEVE MRSA PATIENTS) 1 APPLIC 0900,1700 NASAL Ondansetron HCl (ZOFRAN) 4 MG Q6H PRN PRN IV Norepinephrine Bitartrate (Levophed 16 MG/250 ML NS) 250 ML ASDIR IV Lactated Ringer's (LACTATED RINGERS) 1,000 ML .Q 8H IV Lactobacillus Acidophilus (BACID) 1 CAP BID PO Fidaxomicin (DIFICID) 200 MG Q12HR PO Furosemide (LASIX 20MG INJ) 20 MG Q12HR IV Sodium Chloride (SODIUM CHLORIDE) 10 ML ASDIR IV Zolpidem Tartrate (AMBIEN) 5 MG BEDTIME PRN PRN PO Acetylcysteine (MUCOMYST 20% 4 ML) 200 MG RTQ6H NEB Iopamidol (ISOVUE-300) 100 ML ONCE PRN IV Sodium Chloride (0.9% Sodium Chloride) 50 ML ONC E PRN IV Tramadol HCl (ULTRAM) 25 MG Q4H PRN PRN PO Albuterol/Ipratropium (DUONEB) 3 ML RTQ6H PRN NV N NEB Iopamidol (ISOVUE-370) 100 ML ONCE PRN IV Atorvastatin Calcium (LIPITOR) 10 MG BEDTIME PO Sertraline HCl (ZOLOFT) 25 MG DAILY PO Acetaminophen (TYLENOL) 650 MG Q4H PRN PRN PO Ondansetron HCl (ZOFRAN ODT) 4 MG Q8H PRN PRN P O Sodium Chloride (SODIUM CHLORIDE) SALINE FLUSH ASDIR PRN IV Dietitian nutrition assessment The data set between the solid lines has been im ported from the dietitian's assessment. BMI Calculated: 19.3 Nutrition related diagnosis: Severe malnutrition Nutrition diagnosis details: Nutrition problem: Severe malnutrition Nutrition etiology: Acute illness, Decreased/poo r appetite, Diarrhea Nutrition signs and symptoms: Moderate muscle lo ss, Moderate subcutaneous fat loss, 20% or more weight loss, Less than 25% int keesha Nutrition prescription: 1) Continue full liquid diet, advance as tolerated 2) Changed Ensure HP to Ensure clear per pt request . 3) Banatrol for diarrhea 4) Encourage oral intake of food/supplements Dietitian name: Marcia Kylie, DIET Assessment completed: 09/27/22 Physical Exam General appearance: alert, awake Head/Eyes: atraumatic, normocephalic ENT: dry mucosal membrane Neck: supple/no meningismus Cardiovascular: normal heart sounds, regular rat e rhythm Respiratory: decreased breath sounds, on oxygen, symmetric expansion, no distress, PPM site c/d/i, no overlying edema, er ythema or warmth Abdomen: non-tender, soft Genitourinary: no bladder distention Extremities: moves all, no edema Musculoskeletal: no CVA tenderness Neuro/ENGINEERING INSPECTION ASSISTANT: alert, normal speech Skin: dry Psychiatry: normal affect, normal mood Results Findings/Data: Laboratory Tests 09/29/22425: [Embedded Image Not Available] 09/29/22 0425: [Embedded Image Not Available] 09/28/22 0221: [Embedded Image Not Available] 09/28/22 0220: [Embedded Image Not Available] Laboratory Tests 09/29 425 Chemistry Sodium (134 - 147 mmol/L) 139 Potassium (3.4 - 5.0 mmol/L) 3.6 Chloride (100 - 108 mmol/L) 104 Carbon Dioxide (21 - 32 mmol/L) 29 Anion Gap (4.0 - 15.0 GAP calc) 6.0 BUN (7 - 18 MG/DL) 21 H Creatinine (0.6 - 1.0 MG/DL) 0.8 Glomerular Filtr Rate (>60 estGFR) >=60 max est imate Glucose (70 - 110 MG/DL) 93 Calcium (8.5 - 10.1 MG/DL) 8.5 Phosphorus (2.5 - 4.9 MG/DL) 2.5 Magnesium (1.8 - 2.4 MG/DL) 1.8 Total Bilirubin (0.2 - 1.2 MG/DL) 1.00 AST (15 - 37 Unit/L) 33 ALT (12 - 78 Unit/L) 23 Total Alk Phosphatase (45 - 117 Unit/L) 109 Total Protein (6.4 - 8.2 G/DL) 4.6 L Albumin (3.4 - 5.0 G/DL) 1.9 L Globulin (GM/dL) 2.7 Albumin/Globulin Ratio (1.2 - 2.2 RATIO) 0.7 L Laboratory Tests 09/29 0425 Hematology WBC (3.5 - 11.0 K/mm3) 7.0 RBC (4.70 - 6.10 M/mm3) 3.01 L Hgb (10.4 - 14.9 G/DL) 8.9 L Hct (31.5 - 44.1 %) 27.0 L MCV (84.5 - 98.6 Fl) 89.7 MCH (27.0 - 34.2 pg) 29.6 MCHC (31.5 - 34.0 G/DL) 33.0 RDW (11.5 - 14.5 SD) 13.7 Plt Count (150 - 450 K/mm3) 286 MPV (7.0 - 10.5 fL) 9.10 Neut % (Auto) (40 - 76 %) 72.5 Lymph % (Auto) (20.5 - 51.1 %) 11.6 L [place] % (Auto) (1.7 - 9.3 %) 6.9 Eos % (Auto) (0.0 - 6.0 %) 7.3 H Baso % (Auto) (0.0 - 2.0 %) 0.6 Neut # (Auto) (1.8 - 7.6 K/mm3) 5.1 Lymph # (Auto) (0.6 - 3.2 K/mm3) 0.8 [place] # (Auto) (0.3 - 1.1 K/mm3) 0.5 Eos # (Auto) (0.0 - 0.4 K/mm3) 0.5 H Baso # (Auto) (0.0 - 0.1 K/mm3) 0.0 Abs Immat Gran (auto) (0.00 - 0.03 x10 3/uL) 0. 08 H Add Manual Diff (CRITERIA DIFF/SCN) NO Immature Gran % (0.0 - 5.0 %) 1.1 Nucleated RBC % (0.0 - 1.0 /100WBC%) 0.0 Diagnosis, Assessment Plan Free Text DxA P Notes Free text DxA P notes: 87 y/o female with PMHx of H TN, HLD, COPD, paroxysmal Afib, sick sinus syndrome, tachybrady syndome admitted for: Paroxysmal Afib, sick sinus syndrome, tachybrady syndrome s/p PPM placement s/p PPM placement by Cardiology Dr. 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 Pain control with Tylenol/Tramadol PRN Continue home coreg Hold home Eliquis due to anemia with possible he mothorax Complex moderate left pleural effusion / hemotho rax, s/p R sided Cx tube in place with 600c of bloody fluid removed Appreciate pulm medicine, pain control Status post removal of the chest tube Acute normocytic anemia, possibly due to acute b lood loss with possible hemothorax Status post transfusion Monitor H H closely Hypotension with a history of hypertension Hold home coreg, losartan Transferred to ICU Started on Levophed We will try to wean down to MAP of 65 Added on midodrine COPD Not in acute exacerbation Duoneb tx PRN C. difficile colitis Started on fidaxomicin ID consulted Continues to have diarrhea Add on probiotics Hyponatremia Electrolytes monitor and replace accordingly Acute kidney injury Renal parameters monitored DVT prophylaxis with SCDs, held home Eliquis due to anemia Full code Total critical care time used was 33 minutes Off Levophed Noted to have some bleeding in the rectal tube Hemoglobin monitored We will DC rectal tube PT OT evaluation May need placement Discussed with case management Discussed with ID and pulmonology Electronically Signed by Art Tavera MD on at 1101 RPT #: [id number] END OF REPORT 2022-09-28 19:19:00-00:00 [facility] [place] ([facility]) Wound Care Progress Note REPORT#:[id number] REPORT STATUS: Signed DATE:09/28/22 TIME:1918 PATIENT: LESLEY BREAUX UNIT #: [id number] ROOM/BED: [address] : 36 AGE: 87 SEX: F ATTEND: Tuan Ortega MD Cardiology ADM AUTHOR: Karlo Francis MD * ALL edits or amendments must be made on the el [employer]/computer document * Subjective Chief complaint: Wound Care HPI: downgraded to medsur Patient reports: Yes: able to communicate, feeling better, pain c ontrolled. No: drainage from wound. Objective General VS: Last Documented: Result Date Time Pulse Ox 97 09/28 1733 B/P 118/53 09/28 1733 B/P Mean 74.3 09/28 1733 O2 Delivery Room air 09/28 1733 Temp 97.5 09/28 1733 Pulse 74 09/28 1733 Resp 16 09/28 1733 FiO2 28 09/28 1341 O2 Flow Rate 2 09/28 1341 PATIENT WEIGHT: Weight (lb): 99 Weight (oz): 3.33 Weight (kg): 44.906 Medications: Active Meds + DC'd Last 24 Hrs Magnesium Sulfate/Dextrose (MAGNESIUM SULFATE 1 G IN DEXTROSE 5% 100 ML) 100 ML ONCE ONE IV (CAN) Calcium Gluconate/Sodium Chloride (Calcium Gluco rogelio 1GM/100ML) 100 ML ONCE ONE IV (DC) Magnesium Oxide (MAG-OX 400) 400 MG Q8H PRN PRN PO Magnesium Sulfate (MAGNESIUM SULFATE 2 G IN SWFI 50 ML) 50 ML ASDIR PRN IV Magnesium Sulfate (MAGNESIUM SULFATE 2 G IN SWFI 50 ML) 50 ML Q2H PRN PRN IV Potassium Chloride (POTASSIUM CHLORIDE 10 MEQ/SW FI 50 ML) 50 ML ASDIR PRN IV Potassium Chloride (KCL 20 MEQ/SWFI 100 ML) 100 ML ASDIR PRN IV Potassium Chloride (KCL 20 MEQ/SWFI 100 ML) 100 ML ASDIR PRN IV Potassium Chloride (KCL 20 MEQ/SWFI 100 ML) 100 ML ASDIR PRN IV Potassium Chloride (K-DUR 20 mEq) 20 MEQ ASDIR P RN PO Potassium Chloride (K-DUR 20 mEq) 20 MEQ ASDIR P RN PO Midodrine (PROAMATINE) 5 MG TID PO Enoxaparin Sodium (lovENOX) 30 MG Q24H SUBQ Pantoprazole (PROTONIX) 40 MG DAILY PO (DC) Metronidazole/Sodium Chloride (metroNIDAZOLE 500 MG / 100 MLNS) 100 ML Q8HR IV Nystatin (MYCOSTATIN 15 GM POWDER) 1 APPLIC Q12H TOPICAL Mupirocin (BACTROBAN NASAL-ADULT ICU/STEVE MRSA PATIENTS) 1 APPLIC 0900,1700 NASAL Ondansetron HCl (ZOFRAN) 4 MG Q6H PRN PRN IV Norepinephrine Bitartrate (Levophed 16 MG/250 ML NS) 250 ML ASDIR IV Lactated Ringer's (LACTATED RINGERS) 1,000 ML .Q 8H IV Lactobacillus Acidophilus (BACID) 1 CAP BID PO Fidaxomicin (DIFICID) 200 MG Q12HR PO Furosemide (LASIX 20MG INJ) 20 MG Q12HR IV Sodium Chloride (SODIUM CHLORIDE) 10 ML ASDIR IV Zolpidem Tartrate (AMBIEN) 5 MG BEDTIME PRN PRN PO Acetylcysteine (MUCOMYST 20% 4 ML) 200 MG RTQ6H NEB Iopamidol (ISOVUE-300) 100 ML ONCE PRN IV Sodium Chloride (0.9% Sodium Chloride) 50 ML ONC E PRN IV Tramadol HCl (ULTRAM) 25 MG Q4H PRN PRN PO Albuterol/Ipratropium (DUONEB) 3 ML RTQ6H PRN NV N NEB Iopamidol (ISOVUE-370) 100 ML ONCE PRN IV Atorvastatin Calcium (LIPITOR) 10 MG BEDTIME PO Sertraline HCl (ZOLOFT) 25 MG DAILY PO Acetaminophen (TYLENOL) 650 MG Q4H PRN PRN PO Ondansetron HCl (ZOFRAN ODT) 4 MG Q8H PRN PRN PO Sodium Chloride (SODIUM CHLORIDE) SALINE FLUSH ASDIR PRN IV Dietitian Nutrition assessment The data set between the solid lines has been im ported from the dietitian's assessment. BMI Calculated: 19.3 Nutrition related diagnosis: Severe malnutrition Nutrition diagnosis details: Nutrition problem: Severe malnutrition Nutrition etiology: Acute illness, Decreased/poo r appetite, Diarrhea Nutrition signs and symptoms: Moderate muscle lo ss, Moderate subcutaneous fat loss, 20% or more weight loss, Less than 25% int keesha Nutrition prescription: 1) Continue full liquid diet, advance as tolerated 2) Changed Ensure HP to Ensure clear per pt request . 3) Banatrol for diarrhea 4) Encourage oral intake of food/supplements Dietitian name: Marcia Espinal, DIET Assessment completed: 09/27/22 Physical Exam General appearance: chronically ill appearing Respiratory: no distress Abdomen: non-tender Extremities: no edema Wound Assessment Wound Assessment 1: Type/cause: pressure Wound location: buttock, sacral region Tissue layers: limited to skin breakdown Site condition: no drainage, no ecchymosis, no erythema Stage of pressure ulcer: stage II Diagnosis, Assessment Plan Problem List/A P: 1. Decubitus ulcer of sacral region, stage 2 slight expansion in dimension. cleanse with soap and water, spray pt's home diaper rash supply then add in nystatin powder leave open to air carry this out once per RN shift. 2. Decubitus ulcer of buttock, stage 2 cleanse with soap and water, spray pt's home diaper rash supply then add in nystatin powder leave open to air carry this out once per RN shift. 3. Intertrigo cleanse with soap and water, spray pt's home diaper rash supply then add in nystatin powder leave open to air carry this out once per RN shift. 4. C. difficile diarrhea Electronically Signed by Karlo Francis MD on at 1929 RPT #: [id number] END OF REPORT 2022-09-28 11:35:00-00:[address] [facility] Infectious Dis. Progress Note REPORT#:[id number] REPORT STATUS: Signed DATE:09/28/22 TIME:113 PATIENT: LESLEY BREAUX UNIT #: [id number] [address]BED[address] : [address] AGE: 87 SEX: F ATTEND: Tuan Ortega MD Cardiology ADM AUTHOR: Curtis Sun MD * ALL edits or amendments must be made on the [employer]/computer document * Subjective Chief complaint: Recurrent C. diff. HPI: Leukocytosis resolved. Pt is on fidamoxi earl and IV metronidazole. Diarreha and abdominal pain resolving. Review of Systems Constitutional: Denies: fever. Objective General VS/I O: Vital Signs Date Temp Pulse Resp B/P B/P Mean Pulse Ox FiO2 09/27-09/28 36.3-36.6 60-82 9-21 87-139/35-64 6 1-92 94-100 28 Last Documented: Result Date Time Pulse Ox 97 09/28 0916 B/P 106/51 09/28 0916 B/P Mean 74 09/28 0916 Pulse 76 / 0916 Resp 19 09/28 0916 O2 Delivery Nasal cannula 09/28 0827 O2 Flow Rate 2 09/28 0827 Temp 36.6 09/28 0745 FiO2 28 09/28 0648 Vital Signs: Date Time Temp Pulse Resp B/P B/P Pulse O2 O2 F low FiO2 Mean Ox Delivery Rate 09/28 0916 76 19 106/51 74 97 09/28 0900 82 17 113/56 81 97 09/28 0845 73 17 112/54 78 98 09/28 0830 76 14 112/54 78 96 09/28 0827 Nasal 2 cannula 09/28 0815 73 13 115/52 79 96 09/28 0800 77 14 121/58 84 95 09/28 0745 36.6 79 14 125/63 87 94 09/28 0730 77 15 112/56 81 96 09/28 0715 76 15 112/53 76 97 09/28 0700 73 16 116/57 82 99 09/28 0648 96 Nasal 2 28 cannula 09/28 0645 74 14 108/54 78 98 09/28 0630 76 13 103/49 71 96 08/22 0615 74 14 98/47 68 96 08/22 0600 74 14 103/51 73 98 08/22 0545 75 13 101/50 72 98 08/22 0530 78 13 104/51 73 97 08/22 0515 78 14 91/48 68 97 08/22 0500 80 14 102/50 72 97 08/22 0445 76 14 94/47 68 96 08/22 0430 76 13 97/49 70 96 08/22 0415 80 14 95/48 69 95 08/22 0400 36.3 79 16 97/46 63 95 Nasal 2 cannula 08/22 0400 79 16 97/46 67 95 08/22 0345 79 17 101/49 71 95 08/22 0330 80 16 100/49 71 95 08/22 0315 76 15 100/48 69 96 08/22 0300 76 17 107/49 70 96 08/22 0245 75 17 100/48 69 96 08/22 0230 75 16 93/44 64 96 08/22 0215 75 16 103/50 72 97 08/22 0200 71 13 94/53 72 96 08/22 0145 73 12 104/53 76 97 08/22 0130 73 12 101/49 71 96 08/22 0115 73 12 106/55 79 97 08/22 0100 73 13 101/52 74 97 08/22 0045 74 10 101/52 72 97 08/22 0030 75 12 104/54 76 97 08/22 0015 77 12 103/51 74 97 08/22 0000 36.4 72 16 108/54 72 97 Nasal 2 cannula 08/22 0000 72 12 108/54 78 97 08/21 2345 75 12 102/51 74 96 08/21 2330 75 15 100/49 71 95 08/21 2315 78 12 101/54 75 96 08/21 2300 77 16 108/35 69 96 08/21 2245 77 17 135/62 89 99 08/21 2230 75 18 139/64 92 98 08/21 2215 74 19 131/59 85 99 08/21 2200 76 15 121/57 82 97 08/21 2145 75 14 124/59 85 97 08/21 2130 69 16 118/58 83 99 08/21 2115 71 15 129/61 88 99 08/21 2100 66 15 129/62 89 99 08/21 2045 70 14 117/58 83 98 08/21 2030 64 14 108/54 78 98 08/21 2014 61 14 102/48 69 99 08/21 2000 98 Nasal 2 28 cannula 08/21 1999 36.3 61 15 107/53 71 99 Nasal 2 cannula 08/21 1999 60 17 107/53 76 98 08/21 1945 62 12 110/55 79 98 08/21 1930 62 15 118/56 80 99 08/21 1915 Nasal 2 cannula 08/21 1915 61 14 111/51 74 100 08/21 1900 64 14 106/53 76 98 08/21 1845 67 11 109/54 78 98 08/21 1830 69 12 120/56 81 96 08/21 1815 64 14 125/58 84 98 08/21 1800 68 14 102/51 74 98 08/21 1745 68 13 105/51 74 99 08/21 1730 66 21 111/56 81 99 08/21 1726 67 15 123/60 86 99 08/21 1715 64 15 137/62 90 100 08/21 1704 69 15 92/44 63 99 08/21 1700 73 15 94/42 61 99 08/21 1645 69 15 90/43 62 98 08/21 1630 71 16 98/48 69 98 08/21 1615 76 17 128/58 84 100 08/21 1607 73 11 129/63 90 97 08/21 1600 36.3 08/21 1600 73 14 87/44 63 97 08/21 1545 72 15 93/49 69 96 08/21 1530 69 16 98/51 72 96 08/21 1515 67 14 96/50 69 97 08/21 1500 68 13 96/54 71 97 08/21 1445 60 13 128/58 84 98 08/21 1431 71 13 120/55 79 100 08/21 1415 62 13 117/56 81 98 08/21 1400 63 13 112/56 80 99 08/21 1345 73 14 101/51 74 98 08/21 1330 69 9 103/51 73 99 08/21 1315 68 13 96/48 69 98 08/21 1300 65 13 94/49 69 99 08/21 1245 67 15 115/55 79 98 08/21 1230 65 15 108/53 76 99 08/21 1215 64 14 109/47 68 100 08/21 1200 68 17 112/51 74 100 08/21 1145 68 15 137/62 89 99 24 hour I O ending at 0700: 08/22 0700 09/27 1900 Intake Total 2108.70 2768.83 Output Total 1050 1010 Balance 1058.70 1758.83 Intake, IV 1928.70 1738.83 Intake, Oral 180 930 Intake, Oral 100 Supplement Output, Stool 100 120 Output, Urine 950 890 Patient 44.906 kg Weight PATIENT WEIGHT: Weight (lb): 99 Weight (oz): 3.33 Weight (kg): 44.906 Physical Exam General appearance: alert, awake Head/Eyes: atraumatic, clear cornea, EOMI, staci l conjunctiva/sclera, normal eyelids/periorb, normocephalic Neck: full range of motion, non-tender, supple/n o meningismus Cardiovascular: regular rate rhythm Respiratory: symmetric expansion, no distress Abdomen: normal bowel sounds, soft, no CVA tende rness, no distention, no guarding, no mass/organomegaly, no rebound, Less tenderness Extremities: normal temperature, no cyanosis Neuro/ENGINEERING INSPECTION ASSISTANT: alert, normal speech Skin: normal turgor, no rash Diagnosis, Assessment Plan Free Text A P: Laboratory Tests 09/28/22 0221: [Embedded Image Not Available] 09/28/22 0220: [Embedded Image Not Available] Imaging: CXR reviewed 09/24 CTAP reviewed 09/20 Assessment: 1. Recurrent C. difficile colitis. Per family, p t responded better to fidaxomicin compared with vancomycin during prev ious episodes. 2. SIRS (fever, leukocytosis) likely due to abov e. 3. Left pleural effusion s/p chest tube removal. 4. 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 5. Allergy to penicillin (hives) and sulfas (pas sed out). Plan: 1. Fidaxomicin (day 5 of 10). 2. IV metronidazole (day 3) as WBC increased whi le on fidaxomicin. 3. Avoid systemic abxs if possible. 4. Monitor CBC. 5. Monitor kidney function. 6. Case discussed with hospitalist. at 1319 RPT #: [id number] END OF REPORT 2022-09-28 11:19:00-00:00 [facility] [place] ([facility]) Hospitalist Progress Note REPORT#:[id number] REPORT STATUS: Signed DATE:09/28/22 TIME:1119 PATIENT: LESLEY BREAUX UNIT #: [id number] ROOM/BED: [facility]-1 : 36 AGE: 87 SEX: F ATTEND: Tuan Ortega MD Cardiology ADM AUTHOR: Art Tavera MD * ALL edits or amendments must be made on the [employer] document * Subjective Chief complaint: Had some blood in the rectal tube Denies any abdominal pain Continues to have some diarrhea on and off Off Levophed Objective General VS/I O: Vital Signs: Date Time Temp Pulse Resp B/P B/P Pulse O2 O2 F low FiO2 Mean Ox Delivery Rate 09/28 1948 97.5 74 16 141/63 88.6 96 09/28 1909 97 Nasal 2 30 cannula 09/28 1733 97.5 74 16 118/53 74.3 97 Room air 09/28 1540 99.0 72 14 119/70 86 96 09/28 1341 96 Nasal 2 28 cannula 09/28 1330 70 16 122/45 79 99 09/28 1315 72 14 139/63 91 98 09/28 1300 75 15 101/55 76 99 09/28 1245 78 18 104/53 77 98 09/28 1230 81 17 99/49 70 97 09/28 1215 80 17 107/51 73 96 09/28 1200 72 14 96/49 70 100 09/28 1145 73 16 94/45 65 100 09/28 1130 71 15 101/50 72 100 09/28 1115 73 18 103/49 71 97 09/28 1100 98.1 Nasal 2 cannula 09/28 1100 79 21 122/56 80 97 09/28 1045 75 17 101/51 73 99 09/28 1030 74 17 109/53 76 99 09/28 1015 74 18 113/56 80 98 / 1000 84 18 125/58 84 98 09/28 0945 94 23 129/60 87 88 09/28 0938 82 24 124/58 84 93 09/28 0930 76 13 119/56 81 99 09/28 0916 76 19 106/51 74 97 08/22 0900 82 17 113/56 81 97 08/22 0845 73 17 112/54 78 98 08/22 0830 76 14 112/54 78 96 08/22 0827 Nasal 2 cannula 08/22 0815 73 13 115/52 79 96 08/22 0800 77 14 121/58 84 95 08/22 0745 97.9 79 14 125/63 87 94 08/22 0730 77 15 112/56 81 96 08/22 0715 76 15 112/53 76 97 08/22 0700 73 16 116/57 82 99 08/22 0648 96 Nasal 2 28 cannula 08/22 0645 74 14 108/54 78 98 08/22 0630 76 13 103/49 71 96 08/22 0615 74 14 98/47 68 96 08/22 0600 74 14 103/51 73 98 08/22 0545 75 13 101/50 72 98 08/22 0530 78 13 104/51 73 97 08/22 0515 78 14 91/48 68 97 08/22 0500 80 14 102/50 72 97 08/22 0445 76 14 94/47 68 96 08/22 0430 76 13 97/49 70 96 08/22 0415 80 14 95/48 69 95 08/22 0400 97.4 79 16 97/46 63 95 Nasal 2 cannula 08/22 0400 79 16 97/46 67 95 08/22 0345 79 17 101/49 71 95 08/22 0330 80 16 100/49 71 95 08/22 0315 76 15 100/48 69 96 08/22 0300 76 17 107/49 70 96 08/22 0245 75 17 100/48 69 96 08/22 0230 75 16 93/44 64 96 08/22 0215 75 16 103/50 72 97 08/22 0200 71 13 94/53 72 96 08/22 0145 73 12 104/53 76 97 08/22 0130 73 12 101/49 71 96 08/22 0115 73 12 106/55 79 97 08/22 0100 73 13 101/52 74 97 08/22 0045 74 10 101/52 72 97 08/22 0030 75 12 104/54 76 97 08/22 0015 77 12 103/51 74 97 08/22 0000 97.5 72 16 108/54 72 97 Nasal 2 cannula 08/22 0000 72 12 108/54 78 97 08/21 2345 75 12 102/51 74 96 09/27 2330 75 15 100/49 71 95 09/27 2315 78 12 101/54 75 96 09/27 2300 77 16 108/35 69 96 09/27 2245 77 17 135/62 89 99 09/27 2230 75 18 139/64 92 98 09/27 2215 74 19 131/59 85 99 09/27 2200 76 15 121/57 82 97 24 hour I O ending at 0700: 09/28 0700 09/27 1900 Intake Total 2108.70 2768.83 Output Total 1050 1010 Balance 1058.70 1758.83 Intake, IV 1928.70 1738.83 Intake, Oral 180 930 Intake, Oral 100 Supplement Output, Stool 100 120 Output, Urine 950 890 Patient 99 lb Weight PATIENT WEIGHT: Weight (lb): 99 Weight (oz): 3.33 Weight (kg): 44.906 Medications: Active Meds + DC'd Last 24 Hrs Magnesium Sulfate/Dextrose (MAGNESIUM SULFATE 1 G IN DEXTROSE 5% 100 ML) 100 ML ONCE ONE IV (CAN) Calcium Gluconate/Sodium Chloride (Calcium Gluco rogelio 1GM/100ML) 100 ML ONCE ONE IV (DC) Magnesium Oxide (MAG-OX 400) 400 MG Q8H PRN PRN PO Magnesium Sulfate (MAGNESIUM SULFATE 2 G IN SWFI 50 ML) 50 ML ASDIR PRN IV Magnesium Sulfate (MAGNESIUM SULFATE 2 G IN SWFI 50 ML) 50 ML Q2H PRN PRN IV Potassium Chloride (POTASSIUM CHLORIDE 10 MEQ/SW FI 50 ML) 50 ML ASDIR PRN IV Potassium Chloride (KCL 20 MEQ/SWFI 100 ML) 100 ML ASDIR PRN IV Potassium Chloride (KCL 20 MEQ/SWFI 100 ML) 100 ML ASDIR PRN IV Potassium Chloride (KCL 20 MEQ/SWFI 100 ML) 100 ML ASDIR PRN IV Potassium Chloride (K-DUR 20 mEq) 20 MEQ ASDIR P RN PO Potassium Chloride (K-DUR 20 mEq) 20 MEQ ASDIR P RN PO Midodrine (PROAMATINE) 5 MG TID PO Enoxaparin Sodium (lovENOX) 30 MG Q24H SUBQ Pantoprazole (PROTONIX) 40 MG DAILY PO (DC) Metronidazole/Sodium Chloride (metroNIDAZOLE 500 MG / 100 MLNS) 100 ML Q8HR IV Nystatin (MYCOSTATIN 15 GM POWDER) 1 APPLIC Q12H TOPICAL Mupirocin (BACTROBAN NASAL-ADULT ICU/STEVE MRSA PATIENTS) 1 APPLIC 0900,1700 NASAL Ondansetron HCl (ZOFRAN) 4 MG Q6H PRN PRN IV Norepinephrine Bitartrate (Levophed 16 MG/250 ML NS) 250 ML ASDIR IV Lactated Ringer's (LACTATED RINGERS) 1,000 ML .Q 8H IV Lactobacillus Acidophilus (BACID) 1 CAP BID PO Fidaxomicin (DIFICID) 200 MG Q12HR PO Furosemide (LASIX 20MG INJ) 20 MG Q12HR IV Sodium Chloride (SODIUM CHLORIDE) 10 ML ASDIR IV Zolpidem Tartrate (AMBIEN) 5 MG BEDTIME PRN PRN PO Acetylcysteine (MUCOMYST 20% 4 ML) 200 MG RTQ6H NEB Iopamidol (ISOVUE-300) 100 ML ONCE PRN IV Sodium Chloride (0.9% Sodium Chloride) 50 ML ONC E PRN IV Tramadol HCl (ULTRAM) 25 MG Q4H PRN PRN PO Albuterol/Ipratropium (DUONEB) 3 ML RTQ6H PRN NV N NEB Iopamidol (ISOVUE-370) 100 ML ONCE PRN IV Atorvastatin Calcium (LIPITOR) 10 MG BEDTIME PO Sertraline HCl (ZOLOFT) 25 MG DAILY PO Acetaminophen (TYLENOL) 650 MG Q4H PRN PRN PO Ondansetron HCl (ZOFRAN ODT) 4 MG Q8H PRN PRN PO Sodium Chloride (SODIUM CHLORIDE) SALINE FLUSH ASDIR PRN IV Dietitian nutrition assessment The data set between the solid lines has been im ported from the dietitian's assessment. BMI Calculated: 19.3 Nutrition related diagnosis: Severe malnutrition Nutrition diagnosis details: Nutrition problem: Severe malnutrition Nutrition etiology: Acute illness, Decreased/poo r appetite, Diarrhea Nutrition signs and symptoms: Moderate muscle lo ss, Moderate subcutaneous fat loss, 20% or more weight loss, Less than 25% int keesha Nutrition prescription: 1) Continue full liquid diet, advance as tolerated 2) Changed Ensure HP to Ensure clear per pt request . 3) Banatrol for diarrhea 4) Encourage oral intake of food/supplements Dietitian name: Marcia Espinal, DIET Assessment completed: 09/27/22 Physical Exam General appearance: alert, awake Head/Eyes: atraumatic, normocephalic ENT: dry mucosal membrane Neck: supple/no meningismus Cardiovascular: normal heart sounds, regular rat e rhythm Respiratory: decreased breath sounds, on oxygen, symmetric expansion, no distress, PPM site c/d/i, no overlying edema, er ythema or warmth Abdomen: non-tender, soft Genitourinary: no bladder distention Extremities: moves all, no edema Musculoskeletal: no CVA tenderness Neuro/ENGINEERING INSPECTION ASSISTANT: alert, normal speech Skin: dry Psychiatry: normal affect, normal mood Results Findings/Data: Laboratory Tests 09/28/22220: [Embedded Image Not Available] 09/28/22219: [Embedded Image Not Available] 09/27/22210: [Embedded Image Not Available] Laboratory Tests 09/29 219 Chemistry Sodium (134 - 147 mmol/L) 136 Potassium (3.4 - 5.0 mmol/L) 3.8 Chloride (100 - 108 mmol/L) 103 Carbon Dioxide (21 - 32 mmol/L) 31 Anion Gap (4.0 - 15.0 GAP calc) 2.0 L BUN (7 - 18 MG/DL) 30 H Creatinine (0.6 - 1.0 MG/DL) 0.7 Glomerular Filtr Rate (>60 estGFR) >=60 max est imate Glucose (70 - 110 MG/DL) 89 Calcium (8.5 - 10.1 MG/DL) 7.9 L Phosphorus (2.5 - 4.9 MG/DL) 2.9 Magnesium (1.8 - 2.4 MG/DL) 1.7 L Laboratory Tests 09/28 220 Hematology WBC (3.5 - 11.0 K/mm3) 8.7 RBC (4.70 - 6.10 M/mm3) 3.08 L Hgb (10.4 - 14.9 G/DL) 9.2 L Hct (31.5 - 44.1 %) 27.5 L MCV (84.5 - 98.6 Fl) 89.3 MCH (27.0 - 34.2 pg) 29.9 MCHC (31.5 - 34.0 G/DL) 33.5 RDW (11.5 - 14.5 SD) 13.7 Plt Count (150 - 450 K/mm3) 241 MPV (7.0 - 10.5 fL) 9.60 Neut % (Auto) (40 - 76 %) 74.7 Lymph % (Auto) (20.5 - 51.1 %) 9.0 L [place] % (Auto) (1.7 - 9.3 %) 7.6 Eos % (Auto) (0.0 - 6.0 %) 7.2 H Baso % (Auto) (0.0 - 2.0 %) 0.6 Neut # (Auto) (1.8 - 7.6 K/mm3) 6.5 Lymph # (Auto) (0.6 - 3.2 K/mm3) 0.8 [place] # (Auto) (0.3 - 1.1 K/mm3) 0.7 Eos # (Auto) (0.0 - 0.4 K/mm3) 0.6 H Baso # (Auto) (0.0 - 0.1 K/mm3) 0.1 Abs Immat Gran (auto) (0.00 - 0.03 x10 3/uL) 0. 08 H Add Manual Diff (CRITERIA DIFF/SCN) NO Immature Gran % (0.0 - 5.0 %) 0.9 Nucleated RBC % (0.0 - 1.0 /100WBC%) 0.0 Diagnosis, Assessment Plan Free Text DxA P Notes Free text DxA P notes: 87 y/o female with PMHx of H TN, HLD, COPD, paroxysmal Afib, sick sinus syndrome, tachybrady syndome admitted for: Paroxysmal Afib, sick sinus syndrome, tachybrady syndrome s/p PPM placement s/p PPM placement by Cardiology Dr. 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 Pain control with Tylenol/Tramadol PRN Continue home coreg Hold home Eliquis due to anemia with possible he mothorax Complex moderate left pleural effusion / hemotho rax, s/p R sided Cx tube in place with 600c of bloody fluid removed Appreciate pulm medicine, pain control Status post removal of the chest tube Acute normocytic anemia, possibly due to acute b lood loss with possible hemothorax Status post transfusion Monitor H H closely Hypotension with a history of hypertension Hold home coreg, losartan Transferred to ICU Started on Levophed We will try to wean down to MAP of 65 Added on midodrine COPD Not in acute exacerbation Duoneb tx PRN C. difficile colitis Started on fidaxomicin ID consulted Continues to have diarrhea Add on probiotics Hyponatremia Electrolytes monitor and replace accordingly Acute kidney injury Renal parameters monitored DVT prophylaxis with SCDs, held home Eliquis due to anemia Full code Total critical care time used was 33 minutes Off Levophed Noted to have some bleeding in the rectal tube Hemoglobin stable at 9.2 We will DC rectal tube X-ray findings noted We will downgrade to telemetry PT OT evaluation May need placement Discussed with case management Discussed with ID and pulmonology Electronically Signed by Art Tavera MD on at 2147 RPT #: [id number] END OF REPORT 2022-09-28 09:12:00-00:00 [facility] [place] ([facility]) Pulmonology Progress Note REPORT#:[id number] REPORT STATUS: Signed DATE:09/28/22 TIME:911 PATIENT: LSELEY BREAUX UNIT #: [id number] ROOM/BED: [place] [address]-1 : 36 AGE: 87 SEX: F ATTEND: Tuan Ortega MD Cardiology ADM AUTHOR: Mauro Arce MD * ALL edits or amendments must be made on the el [email or web address]/computer document * Subjective Chief complaint: LESS abdominal pain and diarrhea off pressors stioll hemodynamically stable HPI: Pleasant 87-year-old lady who underwent pacemake r placement yesterday for tachybradycardia syndrome. She was having more shortnes s of breath and left-sided chest pain for which a CT angiogram of the chest was done, see full report . Images reviewed and discussed with patient and cheyanne hoover. There is a small to moderate size left pleural effusion with different densities suggesting possible blood product. There are als o chronic appearing reticular nodular, tree-in-bud type peripheral mostly lowe r zone infiltrates right more than left, no prior CT images to compare. The patient denies much in the way of chronic sp utum fevers chills sweats or significant weight loss. The patient has emphysema has seen pulmo paly doctors in the outpatient setting at [facility] but never smoked. Except described above, review of systems x14 is negative and normal. Review of Systems ROS Allergy/Immun: Denies: anaphylaxis, hives. ENT: Denies: hearing loss, mouth pain. GI: Reports: abdominal pain, diarrhea. Denies: hemat emesis, hematochezia. Neuro: Denies: numbness, seizure. Objective General VS/I O: Last Documented: Result Date Time O2 Delivery Nasal cannula 09/28 826 O2 Flow Rate 2 09/28 826 Pulse Ox 94 09/28 0745 B/P 125/63 09/28 0745 B/P Mean 87 09/28 0745 Temp 36.6 09/28 0745 Pulse 79 09/28 0745 Resp 14 09/28 0745 FiO2 28 09/28 0648 24 hour I O ending at 0700: 09/28 0700 09/27 1900 Intake Total 2108.70 2768.83 Output Total 1050 1010 Balance 1058.70 1758.83 Intake, IV 1928.70 1738.83 Intake, Oral 180 930 Intake, Oral 100 Supplement Output, Stool 100 120 Output, Urine 950 890 Patient 44.906 kg Weight PATIENT WEIGHT: Weight (lb): 99 Weight (oz): 3.33 Weight (kg): 44.906 Medications: Active Meds + DC'd Last 24 Hrs Calcium Gluconate/Sodium Chloride (Calcium Gluco rogelio 1GM/100ML) 100 ML ONCE ONE IV (DC) Magnesium Oxide (MAG-OX 400) 400 MG Q8H PRN PRN PO Magnesium Sulfate (MAGNESIUM SULFATE 2 G IN SWFI 50 ML) 50 ML ASDIR PRN IV Magnesium Sulfate (MAGNESIUM SULFATE 2 G IN SWFI 50 ML) 50 ML Q2H PRN PRN IV Potassium Chloride (POTASSIUM CHLORIDE 10 MEQ/SW FI 50 ML) 50 ML ASDIR PRN IV Potassium Chloride (KCL 20 MEQ/SWFI 100 ML) 100 ML ASDIR PRN IV Potassium Chloride (KCL 20 MEQ/SWFI 100 ML) 100 ML ASDIR PRN IV Potassium Chloride (KCL 20 MEQ/SWFI 100 ML) 100 ML ASDIR PRN IV Potassium Chloride (K-DUR 20 mEq) 20 MEQ ASDIR P RN PO Potassium Chloride (K-DUR 20 mEq) 20 MEQ ASDIR P RN PO Metronidazole (FLAGYL) 500 MG Q8HR PO (CAN) Midodrine (PROAMATINE) 5 MG TID PO Enoxaparin Sodium (lovENOX) 30 MG Q24H SUBQ Pantoprazole (PROTONIX) 40 MG DAILY PO Undefined Medication (POTASSIUM PHOS 15 MMOL/ NS 250ML) 250 ML ONCE ONE IV (DC) Metronidazole/Sodium Chloride (metroNIDAZOLE 500 MG / 100 MLNS) 100 ML Q8HR IV Nystatin (MYCOSTATIN 15 GM POWDER) 1 APPLIC Q12H TOPICAL Mupirocin (BACTROBAN NASAL-ADULT ICU/STEVE MRSA PATIENTS) 1 APPLIC 0900,1700 NASAL Ondansetron HCl (ZOFRAN) 4 MG Q6H PRN PRN IV Norepinephrine Bitartrate (Levophed 16 MG/250 ML NS) 250 ML ASDIR IV Lactated Ringer's (LACTATED RINGERS) 1,000 ML . Q8H IV Lactobacillus Acidophilus (BACID) 1 CAP BID PO Fidaxomicin (DIFICID) 200 MG Q12HR PO Furosemide (LASIX 20MG INJ) 20 MG Q12HR IV Sodium Chloride (SODIUM CHLORIDE) 10 ML ASDIR IV Zolpidem Tartrate (AMBIEN) 5 MG BEDTIME PRN PRN PO Acetylcysteine (MUCOMYST 20% 4 ML) 200 MG RTQ6H NEB Iopamidol (ISOVUE-300) 100 ML ONCE PRN IV Sodium Chloride (0.9% Sodium Chloride) 50 ML ONC E PRN IV Tramadol HCl (ULTRAM) 25 MG Q4H PRN PRN PO Albuterol/Ipratropium (DUONEB) 3 ML RTQ6H PRN NV N NEB Iopamidol (ISOVUE-370) 100 ML ONCE PRN IV Atorvastatin Calcium (LIPITOR) 10 MG BEDTIME PO Sertraline HCl (ZOLOFT) 25 MG DAILY PO Acetaminophen (TYLENOL) 650 MG Q4H PRN PRN PO Ondansetron HCl (ZOFRAN ODT) 4 MG Q8H PRN PRN PO Sodium Chloride (SODIUM CHLORIDE) SALINE FLUSH ASDIR PRN IV Dietitian nutrition assessment The data set between the solid lines has been im ported from the dietitian's assessment. BMI Calculated: 19.3 Nutrition related diagnosis: Severe malnutrition Nutrition diagnosis details: Nutrition problem: Severe malnutrition Nutrition etiology: Acute illness, Decreased/poo r appetite, Diarrhea Nutrition signs and symptoms: Moderate muscle lo ss, Moderate subcutaneous fat loss, 20% or more weight loss, Less than 25% int keesha Nutrition prescription: 1) Continue full liquid diet, advance as tolerated 2) Changed Ensure HP to Ensure clear per pt request . 3) Banatrol for diarrhea 4) Encourage oral intake of food/supplements Dietitian name: Marcia Espinal, DIET Assessment completed: 09/27/22 Physical Exam Head/eyes: atraumatic, normocephalic, normal con junctiva/sclera ENT: ENT: moist mucosal membranes, normal pharynx Neck: non-tender, supple/no meningismus Cardiovascular: normal S1/S2, regular rate rhyth m Respiratory/chest: decreased breath sounds, on o xygen, rales, bandage, sling Abdomen: soft, non-tender Extremities: edema, no clubbing, no cyanosis Musculoskeletal: normal inspection, no muscle sp asm Neuro/ENGINEERING INSPECTION ASSISTANT: alert, oriented X 3, no motor deficit s Skin: dry, intact Lymphatics: neck normal, no lymphadenopathy Results Findings/Data: Laboratory Tests 09/28/22220: [Embedded Image Not Available] 09/28/22219: [Embedded Image Not Available] Laboratory Tests 08/22 0220 Chemistry Sodium (134 - 147 mmol/L) 136 Potassium (3.4 - 5.0 mmol/L) 3.8 Chloride (100 - 108 mmol/L) 103 Carbon Dioxide (21 - 32 mmol/L) 31 Anion Gap (4.0 - 15.0 GAP calc) 2.0 L BUN (7 - 18 MG/DL) 30 H Creatinine (0.6 - 1.0 MG/DL) 0.7 Glomerular Filtr Rate (>60 estGFR) >=60 max est imate Glucose (70 - 110 MG/DL) 89 Calcium (8.5 - 10.1 MG/DL) 7.9 L Phosphorus (2.5 - 4.9 MG/DL) 2.9 Magnesium (1.8 - 2.4 MG/DL) 1.7 L Laboratory Tests 09/28 0221 Hematology WBC (3.5 - 11.0 K/mm3) 8.7 RBC (4.70 - 6.10 M/mm3) 3.08 L Hgb (10.4 - 14.9 G/DL) 9.2 L Hct (31.5 - 44.1 %) 27.5 L MCV (84.5 - 98.6 Fl) 89.3 MCH (27.0 - 34.2 pg) 29.9 MCHC (31.5 - 34.0 G/DL) 33.5 RDW (11.5 - 14.5 SD) 13.7 Plt Count (150 - 450 K/mm3) 241 MPV (7.0 - 10.5 fL) 9.60 Neut % (Auto) (40 - 76 %) 74.7 Lymph % (Auto) (20.5 - 51.1 %) 9.0 L [place] % (Auto) (1.7 - 9.3 %) 7.6 Eos % (Auto) (0.0 - 6.0 %) 7.2 H Baso % (Auto) (0.0 - 2.0 %) 0.6 Neut # (Auto) (1.8 - 7.6 K/mm3) 6.5 Lymph # (Auto) (0.6 - 3.2 K/mm3) 0.8 [place] # (Auto) (0.3 - 1.1 K/mm3) 0.7 Eos # (Auto) (0.0 - 0.4 K/mm3) 0.6 H Baso # (Auto) (0.0 - 0.1 K/mm3) 0.1 Abs Immat Gran (auto) (0.00 - 0.03 x10 3/uL) 0. 08 H Add Manual Diff (CRITERIA DIFF/SCN) NO Immature Gran % (0.0 - 5.0 %) 0.9 Nucleated RBC % (0.0 - 1.0 /100WBC%) 0.0 Diagnosis, Assessment Plan Free Text A P: 1.Status post pacemaker, tachybradycardia syndro me, history of atrial fibrillation 2. Left hemothorax that was drained 3. Recurrent C. difficile colitis 4. Emphysema 5. Hypertension 6. Lidocaine allergy Discussion s/p Volume resusitation cont midodrine TID PT OT She was noted to have C. difficile colitis Antibiotics Deficit Wound care for wond DG to tele Discussed with her daughter and discussed with t nursing staff. Electronically Signed by Mauro Arce MD on 09/08 04/01 at 1147 RPT #: [id number] END OF REPORT 2022-09-27 15:23:00-00:00 [facility] ([facility]) Wound Care Progress Note REPORT#:[id number] REPORT STATUS: Signed DATE:09/27/22 TIME:1523 PATIENT: LESLEY BREAUX UNIT #: [id number] ROOM/BED: [place] [id number] : 36 AGE: 87 SEX: F ATTEND: Tuan Ortgea MD Cardiology ADM AUTHOR: Karlo Francis MD * ALL edits or amendments must be made on the el [employer]/computer document * Subjective Chief complaint: Wound Care HPI: Pt remains in C.diff iso in the ICU Unable to obtain: medical condition Objective General VS: Last Documented: Result Date Time Pulse Ox 97 09/27 1500 B/P 96/54 09/27 1500 B/P Mean 71 09/27 1500 Pulse 68 09/27 1500 Resp 13 09/27 1500 O2 Delivery Nasal cannula 09/27 1115 O2 Flow Rate 2 09/27 1115 Temp 97.4 09/27 1100 FiO2 28 09/27 0741 PATIENT WEIGHT: Weight (lb): 99 Weight (oz): 3.33 Weight (kg): 44.906 Medications: Active Meds + DC'd Last 24 Hrs Metronidazole (FLAGYL) 500 MG Q8HR PO (CAN) Midodrine (PROAMATINE) 5 MG TID PO Enoxaparin Sodium (lovENOX) 30 MG Q24H SUBQ Pantoprazole (PROTONIX) 40 MG DAILY PO Undefined Medication (POTASSIUM PHOS 15 MMOL/ NS 250ML) 250 ML ONCE ONE IV (DC) Metronidazole/Sodium Chloride (metroNIDAZOLE 500 MG / 100 MLNS) 100 ML Q8HR IV Nystatin (MYCOSTATIN 15 GM POWDER) 1 APPLIC Q12H TOPICAL Mupirocin (BACTROBAN NASAL-ADULT ICU/STEVE MRSA PATIENTS) 1 APPLIC 0900,1700 NASAL Ondansetron HCl (ZOFRAN) 4 MG Q6H PRN PRN IV Norepinephrine Bitartrate (Levophed 16 MG/250 ML NS) 250 ML ASDIR IV Lactated Ringer's (LACTATED RINGERS) 1,000 ML .Q 8H IV Lactobacillus Acidophilus (BACID) 1 CAP BID PO Fidaxomicin (DIFICID) 200 MG Q12HR PO Furosemide (LASIX 20MG INJ) 20 MG Q12HR IV Sodium Chloride (SODIUM CHLORIDE) 10 ML ASDIR IV Zolpidem Tartrate (AMBIEN) 5 MG BEDTIME PRN PRN PO Acetylcysteine (MUCOMYST 20% 4 ML) 200 MG RTQ6H NEB Iopamidol (ISOVUE-300) 100 ML ONCE PRN IV Sodium Chloride (0.9% Sodium Chloride) 50 ML ONC E PRN IV Tramadol HCl (ULTRAM) 25 MG Q4H PRN PRN PO Albuterol/Ipratropium (DUONEB) 3 ML RTQ6H PRN NV N NEB Iopamidol (ISOVUE-370) 100 ML ONCE PRN IV Atorvastatin Calcium (LIPITOR) 10 MG BEDTIME PO Sertraline HCl (ZOLOFT) 25 MG DAILY PO Acetaminophen (TYLENOL) 650 MG Q4H PRN PRN PO Ondansetron HCl (ZOFRAN ODT) 4 MG Q8H PRN PRN PO Sodium Chloride (SODIUM CHLORIDE) SALINE FLUSH ASDIR PRN IV Dietitian Nutrition assessment The data set between the solid lines has been im ported from the dietitian's assessment. BMI Calculated: 19.4 Nutrition related diagnosis: Nutrition diagnosis details: Nutrition problem: Nutrition etiology: Nutrition signs and symptoms: Nutrition prescription: Dietitian name: Assessment completed: Physical Exam General appearance: chronically ill appearing Respiratory: no distress Abdomen: non-tender Extremities: no edema Wound Assessment Wound Assessment 1: Type/cause: pressure Wound location: buttock, sacral region Tissue layers: limited to skin breakdown Site condition: no drainage, no ecchymosis, no erythema Stage of pressure ulcer: stage II Diagnosis, Assessment Plan Problem List/A P: 1. Decubitus ulcer of sacral region, stage 2 cleanse with soap and water, spray pt's home diaper rash supply then add in nystatin powder leave open to air carry this out once per RN shift. 2. Decubitus ulcer of buttock, stage 2 cleanse with soap and water, spray pt's home diaper rash supply then add in nystatin powder leave open to air carry this out once per RN shift. 3. Intertrigo cleanse with soap and water, spray pt's home diaper rash supply then add in nystatin powder leave open to air carry this out once per RN shift. 4. C. difficile diarrhea Electronically Signed by Karlo Francis MD on at 1526 RPT #: [id number] END OF REPORT 2022-09-27 13:02:00-00:[address] [facility] Infectious Dis. Progress Note REPORT#:[id number] REPORT STATUS: Signed DATE:09/27/22 TIME:1302 PATIENT: LESLEY BREAUX UNIT #: [id number] ROOM/BED: [place] [id number] : 36 AGE: 87 SEX: F ATTEND: Tuan Ortega MD Cardiology ADM AUTHOR: Curtis Sun MD * ALL edits or amendments must be made on the el [employer]/computer document * Subjective Chief complaint: Recurrent C. diff. HPI: Leukocytosis decreased. Pt is on fidamoxicin and IV metronidazole. Review of Systems Constitutional: Denies: fever. Objective General VS/I O: Vital Signs Date Temp Pulse Resp B/P B/P Mean Pulse Ox FiO2 09/26-09/27 36.1-36.4 63-85 12-22 84-155/42-76 60-95 96-100 28 Last Documented: Result Date Time Pulse Ox 99 09/27 1300 B/P 94/49 09/27 1300 B/P Mean 69 09/27 1300 Pulse 65 09/27 1300 Resp 13 09/27 1300 O2 Delivery Nasal cannula 09/27 1115 O2 Flow Rate 2 09/27 1115 Temp 36.3 09/27 1100 FiO2 28 09/27 0741 Vital Signs: Date Time Temp Pulse Resp B/P B/P Pulse O2 O2 F low FiO2 Mean Ox Delivery Rate 09/27 1300 65 13 94/49 69 99 09/27 1245 67 15 115/55 79 98 09/27 1230 65 15 108/53 76 99 09/27 1215 64 14 109/47 68 100 09/27 1200 68 17 112/51 74 100 09/27 1145 68 15 137/62 89 99 09/27 1130 63 14 131/60 86 99 09/27 1115 Nasal 2 cannula 09/27 1115 64 14 116/54 78 99 09/27 1100 36.3 09/27 1100 63 15 141/60 87 100 09/27 1045 68 16 154/66 95 100 09/27 1030 75 14 116/55 79 100 09/27 1015 74 14 123/56 80 99 / 1000 78 17 134/61 88 100 / 0958 81 19 142/63 90 100 09/27 0947 74 20 149/64 92 97 / 0945 72 19 128/60 86 100 08/ 0930 67 14 114/57 82 100 / 0928 70 13 131/61 88 100 / 0915 66 14 125/61 88 100 08/21 0900 76 13 84/46 61 97 08/21 0845 72 14 120/60 86 99 08/21 0830 70 15 115/59 81 99 08/21 0815 72 18 120/58 83 98 08/21 0800 71 15 134/62 89 98 08/21 0745 66 14 133/59 85 100 08/21 0741 100 Nasal 2 28 cannula 08/21 0730 73 13 155/61 88 99 08/21 0715 69 13 113/58 80 98 08/21 0700 36.1 08/21 0700 66 16 116/57 82 99 08/21 0645 69 14 125/60 87 97 08/21 0615 71 15 122/59 85 98 08/21 0600 67 14 133/58 84 99 08/21 0545 68 16 109/52 75 99 08/21 0530 69 13 116/55 79 99 08/21 0515 73 14 135/60 86 98 08/21 0500 74 15 130/61 88 97 08/21 0445 74 13 133/63 90 99 08/21 0430 71 15 111/54 78 98 08/21 0415 75 14 120/57 82 98 08/21 0400 36.4 08/21 0400 75 16 123/57 82 97 08/21 0345 70 16 118/54 78 98 08/21 0330 73 16 109/53 77 98 08/21 0315 77 12 112/53 76 98 08/21 0300 76 15 113/57 82 98 08/21 0245 74 15 114/55 79 97 08/21 0230 78 15 125/58 84 08/21 0215 76 16 104/51 74 98 08/21 0200 75 14 109/54 78 98 08/21 0145 77 14 112/53 76 97 08/21 0130 76 15 120/52 75 97 08/21 0115 76 14 130/58 84 98 08/21 0100 79 15 106/49 71 97 08/21 0045 75 16 121/56 81 97 08/21 0030 73 14 124/57 82 99 08/21 0022 75 16 91/46 66 98 08/21 0015 76 16 90/44 63 98 08/21 0000 36.3 08/21 0000 76 15 103/51 73 99 08/20 2345 75 16 95/47 68 98 08/20 2330 77 17 105/49 71 98 08/20 2315 82 16 117/53 76 99 08/20 2300 74 18 100/49 70 99 08/20 2245 85 16 105/53 77 97 08/20 2230 82 18 111/56 81 97 08/20 2215 77 18 107/53 77 97 08/20 2200 75 16 108/52 75 98 08/20 2145 73 17 108/55 78 97 08/20 2130 75 16 107/52 75 99 08/20 2115 76 19 117/55 79 98 08/20 2100 76 18 115/53 77 98 08/20 2045 72 15 106/50 72 98 08/20 2029 74 17 102/50 72 99 08/20 2014 73 19 107/49 70 99 08/20 1999 36.3 08/20 1999 Nasal 2 cannula 08/20 1999 80 19 102/56 74 99 08/20 1948 98 Nasal 2 28 cannula 08/20 1945 81 19 99/49 70 98 08/20 1930 77 17 97/47 68 97 08/20 1915 79 19 96/44 64 97 08/20 1900 76 22 100/49 70 97 08/20 1845 84 18 99/48 69 97 08/20 1830 79 16 96/46 66 97 08/20 1815 70 18 94/48 69 97 08/20 1800 81 20 108/52 75 98 08/20 1745 80 17 110/55 79 98 08/20 1730 74 16 105/50 72 99 08/20 1715 71 18 102/50 72 99 08/20 1700 77 20 123/76 94 99 08/20 1645 68 15 93/48 68 97 08/20 1630 69 13 96/47 68 99 08/20 1615 78 16 95/51 71 97 08/20 1600 36.4 08/20 1600 71 14 91/47 66 99 08/20 1545 72 16 93/47 68 98 08/20 1530 68 14 106/51 74 98 08/20 1515 69 15 102/50 72 96 08/20 1500 76 17 103/52 74 96 08/20 1445 71 15 100/49 70 97 08/20 1430 72 14 93/42 60 97 08/20 1415 72 16 108/52 75 99 08/20 1400 79 16 99/49 70 97 08/20 1345 80 16 98/49 70 96 08/20 1330 82 17 97/51 72 98 08/20 1315 73 17 109/52 75 97 24 hour I O ending at 0700: 09/27 0700 09/26 1900 Intake Total 2648.20 2476.60 Output Total 1650 845 Balance 998.20 1631.60 Intake, IV 1848.20 2002.60 Intake, Oral 800 Intake, Oral 474 Supplement Output, Stool 100 Output, Urine 1650 745 PATIENT WEIGHT: Weight (lb): 99 Weight (oz): 3.33 Weight (kg): 44.906 Physical Exam General appearance: alert, awake Head/Eyes: atraumatic, clear cornea, EOMI, staci l conjunctiva/sclera, normal eyelids/periorb, normocephalic Neck: full range of motion, non-tender, supple/n o meningismus Cardiovascular: regular rate rhythm Respiratory: symmetric expansion, no distress Abdomen: tenderness, normal bowel sounds, soft, no CVA tenderness, no distention , no guarding, no mass/organomegaly, no rebound Extremities: normal temperature, no cyanosis Neuro/ENGINEERING INSPECTION ASSISTANT: alert, normal speech Skin: normal turgor, no rash Diagnosis, Assessment Plan Free Text A P: Laboratory Tests 09/27/22 0211: [Embedded Image Not Available] 09/26/22 0626: [Embedded Image Not Available] Imaging: CXR reviewed 09/24 CTAP reviewed 09/20 Assessment: 1. Recurrent C. difficile colitis. Per family, p t responded better to fidaxomicin compared with vancomycin during prev ious episodes. 2. SIRS (fever, leukocytosis) likely due to abov e. 3. Left pleural effusion s/p chest tube removal. 4. 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 5. Allergy to penicillin (hives) and sulfas (pas sed out). Plan: 1. Fidaxomicin (day 4 of 10). 2. IV metronidazole (day 2) as WBC increased whi le on fidaxomicin. 3. Avoid systemic abxs if possible. 4. Monitor CBC. 5. Monitor kidney function. 6. Case discussed with hospitalist. 7. Plan discussed with daughter RICARDO. at 1438 RPT #: [id number] END OF REPORT 2022-09-27 12:58:00-00:00 [facility] ([facility]) Hospitalist Progress Note REPORT#:[id number] REPORT STATUS: Signed DATE:09/27/22 TIME:1258 PATIENT: LESLEY BREAUX UNIT #: [id number] ROOM/BED: [place] [id number] : 36 AGE: 87 SEX: F ATTEND: Tuan Ortega MD Cardiology ADM AUTHOR: Art Tavera MD * ALL edits or amendments must be made on the [employer]/computer document * Subjective Chief complaint: Still on Levophed We will try to wean off Objective General VS/I O: Vital Signs: Date Time Temp Pulse Resp B/P B/P Pulse O2 O2 F low FiO2 Mean Ox Delivery Rate 09/27 1400 63 13 112/56 80 99 09/27 1345 73 14 101/51 74 98 09/27 1330 69 9 103/51 73 99 09/27 1315 68 13 96/48 69 98 09/27 1300 65 13 94/49 69 99 09/27 1245 67 15 115/55 79 98 09/27 1230 65 15 108/53 76 99 09/27 1215 64 14 109/47 68 100 09/27 1200 68 17 112/51 74 100 / 1145 68 15 137/62 89 99 09/27 1130 63 14 131/60 86 99 09/27 1115 Nasal 2 cannula 09/27 1115 64 14 116/54 78 99 09/27 1100 97.4 09/27 1100 63 15 141/60 87 100 / 1045 68 16 154/66 95 100 / 1030 75 14 116/55 79 100 / 1015 74 14 123/56 80 99 08/ 1000 78 17 134/61 88 100 08/ 0958 81 19 142/63 90 100 / 0947 74 20 149/64 92 97 08/ 0945 72 19 128/60 86 100 08/ 0930 67 14 114/57 82 100 08/ 0928 70 13 131/61 88 100 08/ 0915 66 14 125/61 88 100 08/ 0900 76 13 84/46 61 97 / 0845 72 14 120/60 86 99 08/21 0830 70 15 115/59 81 99 08/21 0815 72 18 120/58 83 98 08/21 0800 71 15 134/62 89 98 08/21 0745 66 14 133/59 85 100 08/21 0741 100 Nasal 2 28 cannula 08/21 0730 73 13 155/61 88 99 08/21 0715 69 13 113/58 80 98 08/21 0700 96.9 08/21 0700 66 16 116/57 82 99 08/21 0645 69 14 125/60 87 97 08/21 0615 71 15 122/59 85 98 08/21 0600 67 14 133/58 84 99 08/21 0545 68 16 109/52 75 99 08/21 0530 69 13 116/55 79 99 08/21 0515 73 14 135/60 86 98 08/21 0500 74 15 130/61 88 97 08/21 0445 74 13 133/63 90 99 08/21 0430 71 15 111/54 78 98 08/21 0415 75 14 120/57 82 98 08/21 0400 97.6 08/21 0400 75 16 123/57 82 97 08/21 0345 70 16 118/54 78 98 08/21 0330 73 16 109/53 77 98 08/21 0315 77 12 112/53 76 98 08/21 0300 76 15 113/57 82 98 08/21 0245 74 15 114/55 79 97 08/21 0230 78 15 125/58 84 08/21 0215 76 16 104/51 74 98 08/21 0200 75 14 109/54 78 98 08/21 0145 77 14 112/53 76 97 08/21 0130 76 15 120/52 75 97 08/21 0115 76 14 130/58 84 98 08/21 0100 79 15 106/49 71 97 08/21 0045 75 16 121/56 81 97 08/21 0030 73 14 124/57 82 99 08/21 0022 75 16 91/46 66 98 08/21 0015 76 16 90/44 63 98 08/21 0000 97.4 08/21 0000 76 15 103/51 73 99 08/20 2345 75 16 95/47 68 98 08/20 2330 77 17 105/49 71 98 08/20 2315 82 16 117/53 76 99 08/20 2300 74 18 100/49 70 99 08/20 2245 85 16 105/53 77 97 08/20 2230 82 18 111/56 81 97 08/20 2215 77 18 107/53 77 97 08/20 2200 75 16 108/52 75 98 08/20 2145 73 17 108/55 78 97 08/20 2130 75 16 107/52 75 99 08/20 2115 76 19 117/55 79 98 08/20 2100 76 18 115/53 77 98 08/20 2045 72 15 106/50 72 98 08/20 2029 74 17 102/50 72 99 08/20 2014 73 19 107/49 70 99 08/20 1999 97.4 08/20 1999 Nasal 2 cannula 08/20 1999 80 19 102/56 74 99 08/20 1948 98 Nasal 2 28 cannula 08/20 1945 81 19 99/49 70 98 08/20 1930 77 17 97/47 68 97 08/20 1915 79 19 96/44 64 97 08/20 1900 76 22 100/49 70 97 08/20 1845 84 18 99/48 69 97 08/20 1830 79 16 96/46 66 97 08/20 1815 70 18 94/48 69 97 08/20 1800 81 20 108/52 75 98 08/20 1745 80 17 110/55 79 98 08/20 1730 74 16 105/50 72 99 08/20 1715 71 18 102/50 72 99 08/20 1700 77 20 123/76 94 99 08/20 1645 68 15 93/48 68 97 08/20 1630 69 13 96/47 68 99 08/20 1615 78 16 95/51 71 97 08/20 1600 97.6 08/20 1600 71 14 91/47 66 99 08/20 1545 72 16 93/47 68 98 08/20 1530 68 14 106/51 74 98 08/20 1515 69 15 102/50 72 96 08/20 1500 76 17 103/52 74 96 08/20 1445 71 15 100/49 70 97 24 hour I O ending at 0700: 09/27 0700 09/26 1900 Intake Total 2648.20 2476.60 Output Total 1650 845 Balance 998.20 1631.60 Intake, IV 1848.20 2002.60 Intake, Oral 800 Intake, Oral 474 Supplement Output, Stool 100 Output, Urine 1650 745 PATIENT WEIGHT: Weight (lb): 99 Weight (oz): 3.33 Weight (kg): 44.906 Medications: Active Meds + DC'd Last 24 Hrs Metronidazole (FLAGYL) 500 MG Q8HR PO (CAN) Midodrine (PROAMATINE) 5 MG TID PO Enoxaparin Sodium (lovENOX) 30 MG Q24H SUBQ Pantoprazole (PROTONIX) 40 MG DAILY PO Undefined Medication (POTASSIUM PHOS 15 MMOL/ NS 250ML) 250 ML ONCE ONE IV (DC) Metronidazole/Sodium Chloride (metroNIDAZOLE 500 MG / 100 MLNS) 100 ML Q8HR IV Nystatin (MYCOSTATIN 15 GM POWDER) 1 APPLIC Q12H TOPICAL Mupirocin (BACTROBAN NASAL-ADULT ICU/STEVE MRSA PATIENTS) 1 APPLIC 0900,1700 NASAL Ondansetron HCl (ZOFRAN) 4 MG Q6H PRN PRN IV Norepinephrine Bitartrate (Levophed 16 MG/250 ML NS) 250 ML ASDIR IV Lactated Ringer's (LACTATED RINGERS) 1,000 ML .Q 8H IV Lactobacillus Acidophilus (BACID) 1 CAP BID PO Fidaxomicin (DIFICID) 200 MG Q12HR PO Furosemide (LASIX 20MG INJ) 20 MG Q12HR IV Sodium Chloride (SODIUM CHLORIDE) 10 ML ASDIR IV Zolpidem Tartrate (AMBIEN) 5 MG BEDTIME PRN PRN PO Acetylcysteine (MUCOMYST 20% 4 ML) 200 MG RTQ6H NEB Iopamidol (ISOVUE-300) 100 ML ONCE PRN IV Sodium Chloride (0.9% Sodium Chloride) 50 ML ONC E PRN IV Tramadol HCl (ULTRAM) 25 MG Q4H PRN PRN PO Albuterol/Ipratropium (DUONEB) 3 ML RTQ6H PRN NV N NEB Iopamidol (ISOVUE-370) 100 ML ONCE PRN IV Atorvastatin Calcium (LIPITOR) 10 MG BEDTIME PO Sertraline HCl (ZOLOFT) 25 MG DAILY PO Acetaminophen (TYLENOL) 650 MG Q4H PRN PRN PO Ondansetron HCl (ZOFRAN ODT) 4 MG Q8H PRN PRN PO Sodium Chloride (SODIUM CHLORIDE) SALINE FLUSH ASDIR PRN IV Dietitian nutrition assessment The data set between the solid lines has been im ported from the dietitian's assessment. BMI Calculated: 19.4 Nutrition related diagnosis: Nutrition diagnosis details: Nutrition problem: Nutrition etiology: Nutrition signs and symptoms: Nutrition prescription: Dietitian name: Assessment completed: Physical Exam General appearance: chronically ill appearing, a lert, awake Head/Eyes: atraumatic, normocephalic ENT: dry mucosal membrane Neck: supple/no meningismus Cardiovascular: normal heart sounds, regular rat e rhythm Respiratory: decreased breath sounds, on oxygen, symmetric expansion, no distress, PPM site c/d/i, no overlying edema, er ythema or warmth Abdomen: non-tender, soft Genitourinary: no bladder distention Extremities: moves all, no edema Musculoskeletal: no CVA tenderness Neuro/ENGINEERING INSPECTION ASSISTANT: alert, normal speech Skin: dry Psychiatry: normal affect, normal mood Results Findings/Data: Laboratory Tests 09/27/22 021: [Embedded Image Not Available] 09/26/22 06: [Embedded Image Not Available] 09/25/222051: [Embedded Image Not Available] Laboratory Tests 09/27 210 Chemistry Sodium (134 - 147 mmol/L) 134 Potassium (3.4 - 5.0 mmol/L) 3.5 Chloride (100 - 108 mmol/L) 101 Carbon Dioxide (21 - 32 mmol/L) 29 Anion Gap (4.0 - 15.0 GAP calc) 4.0 BUN (7 - 18 MG/DL) 45 H Creatinine (0.6 - 1.0 MG/DL) 0.8 Glomerular Filtr Rate (>60 estGFR) >=60 max est imate Glucose (70 - 110 MG/DL) 107 Calcium (8.5 - 10.1 MG/DL) 8.3 L Phosphorus (2.5 - 4.9 MG/DL) 2.4 L Magnesium (1.8 - 2.4 MG/DL) 1.9 Laboratory Tests 09/27 0211 Hematology WBC (3.5 - 11.0 K/mm3) 14.6 H RBC (4.70 - 6.10 M/mm3) 3.32 L Hgb (10.4 - 14.9 G/DL) 10.0 L Hct (31.5 - 44.1 %) 29.7 L MCV (84.5 - 98.6 Fl) 89.5 MCH (27.0 - 34.2 pg) 30.1 MCHC (31.5 - 34.0 G/DL) 33.7 RDW (11.5 - 14.5 SD) 13.3 Plt Count (150 - 450 K/mm3) 229 MPV (7.0 - 10.5 fL) 9.60 Neut % (Auto) (40 - 76 %) 78.8 H Lymph % (Auto) (20.5 - 51.1 %) 6.7 L [place] % (Auto) (1.7 - 9.3 %) 8.0 Eos % (Auto) (0.0 - 6.0 %) 5.2 Baso % (Auto) (0.0 - 2.0 %) 0.3 Neut # (Auto) (1.8 - 7.6 K/mm3) 11.5 H Lymph # (Auto) (0.6 - 3.2 K/mm3) 1.0 [place] # (Auto) (0.3 - 1.1 K/mm3) 1.2 H Eos # (Auto) (0.0 - 0.4 K/mm3) 0.8 H Baso # (Auto) (0.0 - 0.1 K/mm3) 0.0 Abs Immat Gran (auto) (0.00 - 0.03 x10 3/uL) 0. 15 H Add Manual Diff (CRITERIA DIFF/SCN) NO Immature Gran % (0.0 - 5.0 %) 1.0 Nucleated RBC % (0.0 - 1.0 /100WBC%) 0.0 Diagnosis, Assessment Plan Free Text DxA P Notes Free text DxA P notes: 87 y/o female with PMHx of H TN, HLD, COPD, paroxysmal Afib, sick sinus syndrome, tachybrady syndome admitted for: Paroxysmal Afib, sick sinus syndrome, tachybrady syndrome s/p PPM placement s/p PPM placement by Cardiology Dr. 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 Pain control with Tylenol/Tramadol PRN Continue home coreg Hold home Eliquis due to anemia with possible he mothorax Complex moderate left pleural effusion / hemotho rax, s/p R sided Cx tube in place with 600c of bloody fluid removed Appreciate pulm medicine, pain control Status post removal of the chest tube Acute normocytic anemia, possibly due to acute b lood loss with possible hemothorax Status post transfusion Monitor H H closely Hypotension with a history of hypertension Hold home coreg, losartan Transferred to ICU Started on Levophed We will try to wean down to MAP of 65 Added on midodrine COPD Not in acute exacerbation Duoneb tx PRN C. difficile colitis Started on fidaxomicin ID consulted Continues to have diarrhea Add on probiotics Hyponatremia Electrolytes monitor and replace accordingly Acute kidney injury Renal parameters monitored DVT prophylaxis with SCDs, held home Eliquis due to anemia Full code Total critical care time used was 33 minutes Electronically Signed by Art Tavera MD on at 1446 RPT #: [id number] END OF REPORT 2022-09-27 10:28:00-00:00 [facility] ([facility]) Pulmonology Progress Note REPORT#:[id number] REPORT STATUS: Signed DATE:09/27/22 TIME:1028 PATIENT: LESLEY BREAUX UNIT #: [id number] ROOM/BED: [address] : 36 AGE: 87 SEX: F ATTEND: Tuan Ortega MD Cardiology ADM AUTHOR: Muaro Arce MD * ALL edits or amendments must be made on the [employer] document * Subjective Chief complaint: LESS abdominal pain and diarrhea Improved Left-sided chest pain, no shortness of breath on pressors stioll hemodynamically unstable HPI: Pleasant 87-year-old lady who underwent pacemake r placement yesterday for tachybradycardia syndrome. She was having more shortnes s of breath and left-sided chest pain for which a CT angiogram of the chest was done, see full report . Images reviewed and discussed with patient and cheyanne hoover. There is a small to moderate size left pleural effusion with different densities suggesting possible blood product. There are als o chronic appearing reticular nodular, tree-in-bud type peripheral mostly lowe r zone infiltrates right more than left, no prior CT images to compare. The patient denies much in the way of chronic sp utum fevers chills sweats or significant weight loss. The patient has emphysema has seen pulangeles barone doctors in the outpatient setting at [facility] but never smoked. Except described above, review of systems x14 is negative and normal. Review of Systems ROS Allergy/Immun: Denies: anaphylaxis, hives. ENT: Denies: hearing loss, mouth pain. GI: Reports: abdominal pain, diarrhea. Denies: hemat emesis, hematochezia. Neuro: Denies: numbness, seizure. Objective General VS/I O: Last Documented: Result Date Time Pulse Ox 97 09/27 0900 B/P 84/46 09/27 0900 B/P Mean 61 09/27 0900 Pulse 76 09/27 0900 Resp 13 09/27 0900 FiO2 28 09/27 0741 O2 Delivery Nasal cannula 09/27 0741 O2 Flow Rate 2 09/27 0741 Temp 36.1 09/27 0700 24 hour I O ending at 0700: 09/27 0700 09/26 1900 Intake Total 2648.20 2476.60 Output Total 1650 845 Balance 998.20 1631.60 Intake, IV 1848.20 2002.60 Intake, Oral 800 Intake, Oral 474 Supplement Output, Stool 100 Output, Urine 1650 745 PATIENT WEIGHT: Weight (lb): 99 Weight (oz): 3.33 Weight (kg): 45.000 Medications: Active Meds + DC'd Last 24 Hrs Metronidazole (FLAGYL) 500 MG Q8HR PO (CAN) Midodrine (PROAMATINE) 5 MG TID PO Enoxaparin Sodium (lovENOX) 30 MG Q24H SUBQ Pantoprazole (PROTONIX) 40 MG DAILY PO Undefined Medication (POTASSIUM PHOS 15 MMOL/ NS 250ML) 250 ML ONCE ONE IV Metronidazole/Sodium Chloride (metroNIDAZOLE 500 MG / 100 MLNS) 100 ML Q8HR IV Nystatin (MYCOSTATIN 15 GM POWDER) 1 APPLIC Q12H TOPICAL Mupirocin (BACTROBAN NASAL-ADULT ICU/STEVE MRSA PATIENTS) 1 APPLIC 0900,1700 NASAL Ondansetron HCl (ZOFRAN) 4 MG Q6H PRN PRN IV Norepinephrine Bitartrate (Levophed 16 MG/250 ML NS) 250 ML ASDIR IV Lactated Ringer's (LACTATED RINGERS) 1,000 ML .Q 8H IV Lactobacillus Acidophilus (BACID) 1 CAP BID PO Fidaxomicin (DIFICID) 200 MG Q12HR PO Furosemide (LASIX 20MG INJ) 20 MG Q12HR IV Sodium Chloride (SODIUM CHLORIDE) 10 ML ASDIR IV Zolpidem Tartrate (AMBIEN) 5 MG BEDTIME PRN PRN PO Acetylcysteine (MUCOMYST 20% 4 ML) 200 MG RTQ6H NEB Iopamidol (ISOVUE-300) 100 ML ONCE PRN IV Sodium Chloride (0.9% Sodium Chloride) 50 ML ONC E PRN IV Tramadol HCl (ULTRAM) 25 MG Q4H PRN PRN PO Albuterol/Ipratropium (DUONEB) 3 ML RTQ6H PRN NV N NEB Iopamidol (ISOVUE-370) 100 ML ONCE PRN IV Atorvastatin Calcium (LIPITOR) 10 MG BEDTIME PO Sertraline HCl (ZOLOFT) 25 MG DAILY PO Acetaminophen (TYLENOL) 650 MG Q4H PRN PRN PO Ondansetron HCl (ZOFRAN ODT) 4 MG Q8H PRN PRN PO Sodium Chloride (SODIUM CHLORIDE) SALINE FLUSH ASDIR PRN IV Physical Exam Head/eyes: atraumatic, normocephalic, normal con junctiva/sclera ENT: ENT: moist mucosal membranes, normal pharynx Neck: non-tender, supple/no meningismus Cardiovascular: normal S1/S2, regular rate rhyth m Respiratory/chest: decreased breath sounds, on o xygen, rales, bandage, sling Abdomen: soft, non-tender Extremities: edema, no clubbing, no cyanosis Musculoskeletal: normal inspection, no muscle sp asm Neuro/ENGINEERING INSPECTION ASSISTANT: alert, oriented X 3, no motor deficit s Skin: dry, intact Lymphatics: neck normal, no lymphadenopathy Results Findings/Data: Laboratory Tests 09/27/22 0211: [Embedded Image Not Available] Laboratory Tests 09/27 210 Chemistry Sodium (134 - 147 mmol/L) 134 Potassium (3.4 - 5.0 mmol/L) 3.5 Chloride (100 - 108 mmol/L) 101 Carbon Dioxide (21 - 32 mmol/L) 29 Anion Gap (4.0 - 15.0 GAP calc) 4.0 BUN (7 - 18 MG/DL) 45 H Creatinine (0.6 - 1.0 MG/DL) 0.8 Glomerular Filtr Rate (>60 estGFR) >=60 max est imate Glucose (70 - 110 MG/DL) 107 Calcium (8.5 - 10.1 MG/DL) 8.3 L Phosphorus (2.5 - 4.9 MG/DL) 2.4 L Magnesium (1.8 - 2.4 MG/DL) 1.9 Laboratory Tests 09/27 210 Hematology WBC (3.5 - 11.0 K/mm3) 14.6 H RBC (4.70 - 6.10 M/mm3) 3.32 L Hgb (10.4 - 14.9 G/DL) 10.0 L Hct (31.5 - 44.1 %) 29.7 L MCV (84.5 - 98.6 Fl) 89.5 MCH (27.0 - 34.2 pg) 30.1 MCHC (31.5 - 34.0 G/DL) 33.7 RDW (11.5 - 14.5 SD) 13.3 Plt Count (150 - 450 K/mm3) 229 MPV (7.0 - 10.5 fL) 9.60 Neut % (Auto) (40 - 76 %) 78.8 H Lymph % (Auto) (20.5 - 51.1 %) 6.7 L [place] % (Auto) (1.7 - 9.3 %) 8.0 Eos % (Auto) (0.0 - 6.0 %) 5.2 Baso % (Auto) (0.0 - 2.0 %) 0.3 Neut # (Auto) (1.8 - 7.6 K/mm3) 11.5 H Lymph # (Auto) (0.6 - 3.2 K/mm3) 1.0 [place] # (Auto) (0.3 - 1.1 K/mm3) 1.2 H Eos # (Auto) (0.0 - 0.4 K/mm3) 0.8 H Baso # (Auto) (0.0 - 0.1 K/mm3) 0.0 Abs Immat Gran (auto) (0.00 - 0.03 x10 3/uL) 0. 15 H Add Manual Diff (CRITERIA DIFF/SCN) NO Immature Gran % (0.0 - 5.0 %) 1.0 Nucleated RBC % (0.0 - 1.0 /100WBC%) 0.0 Diagnosis, Assessment Plan Free Text A P: 1.Status post pacemaker, tachybradycardia syndro me, history of atrial fibrillation 2. Left hemothorax that was drained 3. Recurrent C. difficile colitis 4. Emphysema 5. Hypertension 6. Lidocaine allergy Discussion s/p Volume resusitation She is requiring Levophed at low-dose. We will start midodrine Tapering her Levophed then DC PT OT I reviewed her x-ray improving infiltrate in the left side She was noted to have C. difficile colitis She continues to have diarrhea and she has a rec cassidy tube now. Antibiotics for stated Wound care We will consult gastroenterology in addition to infectious diseases while addressing her C. difficile. Consider adding IV Flagyl. Discussed with her daughter and discussed with t nursing staff. Continue close ICU monitoring Once more stable will downgrade Critical care time 32 minutes Electronically Signed by Mauro Arce MD on 09/08 03/01 at 1031 RPT #: [id number] END OF REPORT 2022-09-27 06:34:00-00:00 [facility] ([facility]) GE Consultation Note REPORT#:[id number] REPORT STATUS: Signed DATE:09/27/22 TIME:06 PATIENT: LESLEY BREAUX UNIT #: [id number] ROOM/BED: [place] [id number] : 36 AGE: 87 SEX: F ATTEND: uTan Ortega MD Cardiology ADM AUTHOR: Lonnie Turpin MD * ALL edits or amendments must be made on the el ectronic/computer document * History of Present Illness Requesting clinician: Giorgi Chavarria MD Reason for consult: recurrent C diff Chief complaint: i'm tired HPI: 87 y/o female with PMHx of H TN, HLD, COPD, paroxysmal Afib, sick sinus syndrome, tachybrady syndome admitted for: Paroxysmal Afib, sick sinus syndrome, tachybrady syndrome s/p PPM placement s/p PPM placement by Cardiology Dr. 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 Pain control with Tylenol/Tramadol PRN Continue home coreg Hold home Eliquis due to anemia with possible he mothorax Complex moderate left pleural effusion / hemotho rax, s/p R sided Cx tube in place with 600c of bloody fluid removed Appreciate pulm medicine, pain control Status post removal of the chest tube Acute normocytic anemia, possibly due to acute b lood loss with possible hemothorax Status post transfusion Monitor H H closely Hypotension with a history of hypertension Hold home coreg, losartan Transferred to ICU Started on Levophed We will try to wean down to MAP of 65 Added on midodrine COPD Not in acute exacerbation Duoneb tx PRN C. difficile colitis Started on fidaxomicin ID consulted Continues to have diarrhea Add on probiotics Hyponatremia Electrolytes monitor and replace accordingly Acute kidney injury Renal parameters monitored No colonic dilation on abd imaging. No overt gib noted by nursing staff. History - Adult longitudinal Past medical history: Reports: Hypertension. Additional medical history: None. Family history: Reports: Heart disease, Hypertension. Smoking status for patients 13 years old or olde r: Never Smoker Allergies: Coded Allergies: fentanyl (Severe, COMA 09/16/22) Penicillins (Intermediate, HIVES 09/16/22) Sulfa (Sulfonamide Antibiotics) (Intermediate, M AKES HER PASS OUT 09/16/22) codeine (Intermediate, VOMITING 09/16/22) hydrocodone (Intermediate, VOMITING 09/16/22) meperidine (From DEMEROL) (Intermediate, THROW U P 09/16/22) morphine (Mild, HIVES 09/16/22) lidocaine (RASH-UNKNOWN 09/19/22) Review of Systems Constitutional: Reports: fatigue. GI: Reports: diarrhea. All systems rev neg: except as marked Objective Physical Exam VS/I O: Last Documented: Result Date Time Pulse Ox 98 09/27 0615 B/P 122/59 09/27 0615 B/P Mean 85 09/27 0615 Pulse 71 09/27 0615 Resp 15 09/27 0615 Temp 97.6 09/27 0400 O2 Delivery Nasal cannula 09/27 1999 O2 Flow Rate 2 09/27 1999 FiO2 28 09/26 1948 24 hour I O ending at 0700: 09/27 0700 09/26 1900 Intake Total 2648.20 2476.60 Output Total 1650 845 Balance 998.20 1631.60 Intake, IV 1848.20 2002.60 Intake, Oral 800 Intake, Oral 474 Supplement Output, Stool 100 Output, Urine 1650 745 PATIENT WEIGHT: Weight (lb): 99 Weight (oz): 3.33 Weight (kg): 45.000 Medications: Active Meds + DC'd Last 24 Hrs Pantoprazole (PROTONIX) 40 MG DAILY PO Undefined Medication (POTASSIUM PHOS 15 MMOL/ NS 250ML) 250 ML ONCE ONE IV Metronidazole/Sodium Chloride (metroNIDAZOLE 500 MG / 100 MLNS) 100 ML Q8HR IV Nystatin (MYCOSTATIN 15 GM POWDER) 1 APPLIC Q12H TOPICAL Lactated Ringer's (LACTATED RINGERS) 500 ML BOLU S IV (DC) Mupirocin (BACTROBAN NASAL-ADULT ICU/STEVE MRSA PATIENTS) 1 APPLIC 0900,1700 NASAL Ondansetron HCl (ZOFRAN) 4 MG Q6H PRN PRN IV Norepinephrine Bitartrate (Levophed 16 MG/250 ML NS) 250 ML ASDIR IV Lactated Ringer's (LACTATED RINGERS) 1,000 ML .Q 8H IV Lactobacillus Acidophilus (BACID) 1 CAP BID PO Fidaxomicin (DIFICID) 200 MG Q12HR PO Furosemide (LASIX 20MG INJ) 20 MG Q12HR IV Sodium Chloride (SODIUM CHLORIDE) 10 ML ASDIR IV Zolpidem Tartrate (AMBIEN) 5 MG BEDTIME PRN PRN PO Acetylcysteine (MUCOMYST 20% 4 ML) 200 MG RTQ6H NEB Iopamidol (ISOVUE-300) 100 ML ONCE PRN IV Sodium Chloride (0.9% Sodium Chloride) 50 ML ONC E PRN IV Tramadol HCl (ULTRAM) 25 MG Q4H PRN PRN PO Albuterol/Ipratropium (DUONEB) 3 ML RTQ6H PRN NV N NEB Iopamidol (ISOVUE-370) 100 ML ONCE PRN IV Atorvastatin Calcium (LIPITOR) 10 MG BEDTIME PO Sertraline HCl (ZOLOFT) 25 MG DAILY PO Acetaminophen (TYLENOL) 650 MG Q4H PRN PRN PO Ondansetron HCl (ZOFRAN ODT) 4 MG Q8H PRN PRN PO Sodium Chloride (SODIUM CHLORIDE) SALINE FLUSH ASDIR PRN IV General appearance: alert, awake, oriented HEENT: normal ear, normal nose Neck: no JVD, no lymphadenopathy Cardiovascular: normal heart sounds, normal S1/S 2 Respiratory: symmetric expansion, no distress Abdomen: soft, no distention Extremities: no clubbing, no cyanosis Musculoskeletal: normal inspection Neuro/ENGINEERING INSPECTION ASSISTANT: alert, oriented X 3 Skin: no ecchymosis, no rash Psychiatry: normal affect, normal judgment/insig ht Results Findings/Data: Laboratory Tests 09/27/22210: [Embedded Image Not Available] Laboratory Tests 09/27 210 Chemistry Sodium (134 - 147 mmol/L) 134 Potassium (3.4 - 5.0 mmol/L) 3.5 Chloride (100 - 108 mmol/L) 101 Carbon Dioxide (21 - 32 mmol/L) 29 Anion Gap (4.0 - 15.0 GAP calc) 4.0 BUN (7 - 18 MG/DL) 45 H Creatinine (0.6 - 1.0 MG/DL) 0.8 Glomerular Filtr Rate (>60 estGFR) >=60 max est imate Glucose (70 - 110 MG/DL) 107 Calcium (8.5 - 10.1 MG/DL) 8.3 L Phosphorus (2.5 - 4.9 MG/DL) 2.4 L Magnesium (1.8 - 2.4 MG/DL) 1.9 Laboratory Tests 09/27 210 Hematology WBC (3.5 - 11.0 K/mm3) 14.6 H RBC (4.70 - 6.10 M/mm3) 3.32 L Hgb (10.4 - 14.9 G/DL) 10.0 L Hct (31.5 - 44.1 %) 29.7 L MCV (84.5 - 98.6 Fl) 89.5 MCH (27.0 - 34.2 pg) 30.1 MCHC (31.5 - 34.0 G/DL) 33.7 RDW (11.5 - 14.5 SD) 13.3 Plt Count (150 - 450 K/mm3) 229 MPV (7.0 - 10.5 fL) 9.60 Neut % (Auto) (40 - 76 %) 78.8 H Lymph % (Auto) (20.5 - 51.1 %) 6.7 L [place] % (Auto) (1.7 - 9.3 %) 8.0 Eos % (Auto) (0.0 - 6.0 %) 5.2 Baso % (Auto) (0.0 - 2.0 %) 0.3 Neut # (Auto) (1.8 - 7.6 K/mm3) 11.5 H Lymph # (Auto) (0.6 - 3.2 K/mm3) 1.0 [place] # (Auto) (0.3 - 1.1 K/mm3) 1.2 H Eos # (Auto) (0.0 - 0.4 K/mm3) 0.8 H Baso # (Auto) (0.0 - 0.1 K/mm3) 0.0 Abs Immat Gran (auto) (0.00 - 0.03 x10 3/uL) 0. 15 H Add Manual Diff (CRITERIA DIFF/SCN) NO Immature Gran % (0.0 - 5.0 %) 1.0 Nucleated RBC % (0.0 - 1.0 /100WBC%) 0.0 Radiology data: Recent Impressions: RADIOLOGY - XR ABDOMEN 1 V 09/26 926 Report Impression - Status: SIGNED Entered: 09/26/2022 1000 IMPRESSION: Nonobstructive bowel gas pattern. Impression By: [email or web address] - Abhinav Fajardo M.D. Diagnosis, Assessment Plan Free Text DxA P Notes Free Text DxA P Notes: 87 y/o female with PMHx of H TN, HLD, COPD, paroxysmal Afib, sick sinus syndrome, tachybrady syndome admitted for: Paroxysmal Afib, sick sinus syndrome, tachybrady syndrome s/p PPM placement s/p PPM placement by Cardiology Dr. 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 Pain control with Tylenol/Tramadol PRN Continue home coreg Hold home Eliquis due to anemia with possible he mothorax Complex moderate left pleural effusion / hemotho rax, s/p R sided Cx tube in place with 600c of bloody fluid removed Appreciate pulm medicine, pain control Status post removal of the chest tube Acute normocytic anemia, possibly due to acute b lood loss with possible hemothorax Status post transfusion Monitor H H closely Hypotension with a history of hypertension Hold home coreg, losartan Transferred to ICU Started on Levophed We will try to wean down to MAP of 65 Added on midodrine COPD Not in acute exacerbation Duoneb tx PRN C. difficile colitis Started on fidaxomicin ID consulted Continues to have diarrhea Add on probiotics Hyponatremia Electrolytes monitor and replace accordingly Acute kidney injury Renal parameters monitored No further recommendations. Agree with assessmen t and treatment by ID, supportive care. No role for colonoscopy at this time Electronically Signed by Lonnie Turpin MD on 0 09/27/22 at 0637 RPT #: [id number] END OF REPORT 2022-09-26 11:03:00-00:00 [facility] ([facility]) Infectious Dis. Progress Note REPORT#:[id number] REPORT STATUS: Signed DATE:09/26/22 TIME:1103 PATIENT: LESLEY BREAUX UNIT #: [id number] ROOM/BED: [place] [id number] : 36 AGE: 87 SEX: F ATTEND: Tuan Ortega MD Cardiology ADM AUTHOR: Curtis Sun MD * ALL edits or amendments must be made on the el [email or web address]/computer document * Subjective Chief complaint: Recurrent C. diff. HPI: WBC increased and BP dropped. No fever overnight . Pt transferred to ICU. Review of Systems Unable to obtain due to: Poor historian Objective Physical Exam General appearance: chronically ill appearing Head/Eyes: atraumatic, clear cornea, EOMI, staci l conjunctiva/sclera, normal eyelids/periorb, normocephalic Neck: full range of motion, non-tender, supple/n o meningismus Cardiovascular: regular rate rhythm Respiratory: symmetric expansion, no distress Abdomen: tenderness, normal bowel sounds, soft, no CVA tenderness, no distention , no guarding, no mass/organomegaly, no rebound Genitourinary: no flank pain Extremities: normal temperature, no cyanosis Neuro/ENGINEERING INSPECTION ASSISTANT: alert, normal speech Skin: normal turgor, no rash Diagnosis, Assessment Plan Free Text A P: Laboratory Tests 09/26/22 0626: [Embedded Image Not Available] 09/25/222051: [Embedded Image Not Available] 09/24/22 1229: [Embedded Image Not Available] Imaging: CXR reviewed 09/24 CTAP reviewed 09/20 Assessment: 1. Recurrent C. difficile colitis. 2. SIRS (fever, leukocytosis) likely due to abov e. 3. Left pleural effusion s/p chest tube removal. 4. 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 5. Allergy to penicillin (hives) and sulfas (pas sed out). Plan: 1. Fidaxomicin (day 3 of 10). 2. Add ICV metronidazole as WBC increased. 3. Avoid systemic abxs if possible. 4. KUB. 5. Monitor CBC. 6. Monitor kidney function. 7. Case discussed with ICU. 8. Case discussed with hospitalist. 9. Plan discussed with daughter RICARDO. at 1106 RPT #: [id number] END OF REPORT 2022-09-26 10:07:00-00:00 [facility] ([facility] Pulmonology Progress Note REPORT#:[id number] REPORT STATUS: Signed DATE:09/26/22 TIME:1007 PATIENT: LESLEY BREAUX UNIT #: [id number] ROOM/BED: [place] [id number] : 36 AGE: 87 SEX: F ATTEND: Tuan Ortega MD Cardiology ADM AUTHOR: Giorgi Chavarria MD * ALL edits or amendments must be made on the [employer]/computer document * Subjective HPI: Pleasant 87-year-old lady who underwent pacemake r placement yesterday for tachybradycardia syndrome. She was having more shortnes s of breath and left-sided chest pain for which a CT angiogram of the chest was done, see full report . Images reviewed and discussed with patient and cheyanne hoover. There is a small to moderate size left pleural effusion with different densities suggesting possible blood product. There are als o chronic appearing reticular nodular, tree-in-bud type peripheral mostly lowe r zone infiltrates right more than left, no prior CT images to compare. The patient denies much in the way of chronic sp utum fevers chills sweats or significant weight loss. The patient has emphysema has seen pulangeles barone doctors in the outpatient setting at [facility] but never smoked. Except described above, review of systems x14 is negative and normal. Review of Systems ROS Allergy/Immun: Denies: anaphylaxis, hives. ENT: Denies: hearing loss, mouth pain. GI: Reports: abdominal pain, diarrhea. Denies: hemat emesis, hematochezia. Neuro: Denies: numbness, seizure. Objective General VS/I O: Last Documented: Result Date Time Pulse Ox 97 09/26 0815 B/P 97/54 09/26 0815 B/P Mean 73 09/26 0815 Pulse 80 09/26 0815 Resp 17 09/26 0815 Temp 36.1 09/26 0700 FiO2 28 09/26 0644 O2 Delivery Nasal cannula 09/26 0644 O2 Flow Rate 2 09/26 0644 24 hour I O ending at 0700: 09/26 0700 09/25 1900 Intake Total 1483.80 Output Total 375 Balance 1108.80 Intake, IV 1483.80 Output, Urine 375 PATIENT WEIGHT: Weight (lb): 99 Weight (oz): 3.33 Weight (kg): 45.000 Medications: Active Meds + DC'd Last 24 Hrs Lactated Ringer's (LACTATED RINGERS) 500 ML BOLU S IV (DC) Mupirocin (BACTROBAN NASAL-ADULT ICU/STEVE MRSA PATIENTS) 1 APPLIC 0900,1700 NASAL Ondansetron HCl (ZOFRAN) 4 MG Q6H PRN PRN IV Norepinephrine Bitartrate (Levophed 16 MG/250 ML NS) 250 ML ASDIR IV Sodium Chloride (0.9% Sodium Chloride) 500 ML CHRISTOPHER JEAN MARIE IV (DC) Magnesium Sulfate/Dextrose (MAGNESIUM SULFATE 1 G IN DEXTROSE 5% 100 ML) 100 ML ONCE ONE IV (DC) Lactated Ringer's (LACTATED RINGERS) 1,000 ML .Q 8H IV Sodium Chloride (0.9% Sodium Chloride) 500 ML CHRISTOPHER JEAN MARIE IV (DC) Lactobacillus Acidophilus (BACID) 1 CAP BID PO Fidaxomicin (DIFICID) 200 MG Q12HR PO Furosemide (LASIX 20MG INJ) 20 MG Q12HR IV Sodium Chloride (SODIUM CHLORIDE) 10 ML ASDIR IV Zolpidem Tartrate (AMBIEN) 5 MG BEDTIME PRN PRN PO Acetylcysteine (MUCOMYST 20% 4 ML) 200 MG RTQ6H NEB Iopamidol (ISOVUE-300) 100 ML ONCE PRN IV Sodium Chloride (0.9% Sodium Chloride) 50 ML ONC E PRN IV Tramadol HCl (ULTRAM) 25 MG Q4H PRN PRN PO Albuterol/Ipratropium (DUONEB) 3 ML RTQ6H PRN NV N NEB Iopamidol (ISOVUE-370) 100 ML ONCE PRN IV Losartan Potassium (COZAAR) 12.5 MG DAILY PO (DC ) Atorvastatin Calcium (LIPITOR) 10 MG BEDTIME PO Carvedilol (COREG) 3.125 MG DAILY PO (DC) Sertraline HCl (ZOLOFT) 25 MG DAILY PO Acetaminophen (TYLENOL) 650 MG Q4H PRN PRN PO Ondansetron HCl (ZOFRAN ODT) 4 MG Q8H PRN PRN PO Sodium Chloride (SODIUM CHLORIDE) SALINE FLUSH ASDIR PRN IV Physical Exam General appearance: confused Head/eyes: atraumatic, normocephalic, normal con junctiva/sclera ENT: ENT: moist mucosal membranes, normal pharynx Neck: non-tender, supple/no meningismus Cardiovascular: normal S1/S2, regular rate rhyth m Respiratory/chest: decreased breath sounds, on o xygen, rales, bandage, sling Abdomen: soft, non-tender Extremities: edema, no clubbing, no cyanosis Musculoskeletal: normal inspection, no muscle sp asm Neuro/ENGINEERING INSPECTION ASSISTANT: alert, oriented X 3, no motor deficit s Skin: dry, intact Lymphatics: neck normal, no lymphadenopathy Results Findings/Data: Laboratory Tests 09/26/22625: [Embedded Image Not Available] 09/25/222051: [Embedded Image Not Available] Laboratory Tests 09/26 Chemistry Sodium (134 - 147 mmol/L) 129 L 129 L Potassium (3.4 - 5.0 mmol/L) 3.4 3.4 Chloride (100 - 108 mmol/L) 97 L 97 L Carbon Dioxide (21 - 32 mmol/L) 27 27 Anion Gap (4.0 - 15.0 GAP calc) 5.0 5.0 BUN (7 - 18 MG/DL) 48 H 47 H Creatinine (0.6 - 1.0 MG/DL) 1.0 1.1 H Glomerular Filtr Rate (>60 estGFR) 55 L 49 L Glucose (70 - 110 MG/DL) 115 H 114 H Calcium (8.5 - 10.1 MG/DL) 8.2 L 8.3 L Phosphorus (2.5 - 4.9 MG/DL) 2.8 Magnesium (1.8 - 2.4 MG/DL) 2.3 1.7 L Laboratory Tests 09/26 09/25 0626 2052 Hematology WBC (3.5 - 11.0 K/mm3) 21.1 H 19.6 H RBC (4.70 - 6.10 M/mm3) 3.59 L 3.51 L Hgb (10.4 - 14.9 G/DL) 10.6 10.4 Hct (31.5 - 44.1 %) 31.2 L 30.5 L MCV (84.5 - 98.6 Fl) 86.9 86.9 MCH (27.0 - 34.2 pg) 29.5 29.6 MCHC (31.5 - 34.0 G/DL) 34.0 34.1 H RDW (11.5 - 14.5 SD) 13.4 13.6 Plt Count (150 - 450 K/mm3) 244 191 MPV (7.0 - 10.5 fL) 9.80 10.00 Neut % (Auto) (40 - 76 %) 80.4 H 82.3 H Lymph % (Auto) (20.5 - 51.1 %) 5.3 L 5.4 L [place] % (Auto) (1.7 - 9.3 %) 8.8 8.4 Eos % (Auto) (0.0 - 6.0 %) 3.0 1.6 Baso % (Auto) (0.0 - 2.0 %) 0.3 0.5 Neut # (Auto) (1.8 - 7.6 K/mm3) 16.9 H 16.1 H Lymph # (Auto) (0.6 - 3.2 K/mm3) 1.1 1.1 [place] # (Auto) (0.3 - 1.1 K/mm3) 1.9 H 1.6 H Eos # (Auto) (0.0 - 0.4 K/mm3) 0.6 H 0.3 Baso # (Auto) (0.0 - 0.1 K/mm3) 0.1 0.1 Abs Immat Gran (auto) (0.00 - 0.03 x10 3/uL) 0. 47 H 0.35 H Add Manual Diff (CRITERIA DIFF/SCN) NO NO Immature Gran % (0.0 - 5.0 %) 2.2 1.8 Nucleated RBC % (0.0 - 1.0 /100WBC%) 0.0 0.0 Radiology data: Recent Impressions: RADIOLOGY - XR CHEST 1 V 09/25 1155 Report Impression - Status: SIGNED Entered: 09/26/2022 0040 IMPRESSION: No significant interval change in faint left bas ilar atelectasis or pneumonia. Impression By: [email or web address] - Aurora Sheikh RADIOLOGY - XR CHEST 1 V 09/26 0530 Report Impression - Status: SIGNED Entered: 09/26/2022 0627 IMPRESSION: 1. Interval placement of a right upper extremity PICC with tip located in mid SVC. No pneumothorax. 2. Unchanged mild left basilar opacities, which may reflect atelectasis or pneumonia. Impression By: [email or web address] - Blake Ford M.D. RADIOLOGY - XR ABDOMEN 1 V 09/26 0927 Report Impression - Status: SIGNED Entered: 09/26/2022 1000 IMPRESSION: Nonobstructive bowel gas pattern. Impression By: [email or web address] - Abhinav Fajardo M.D. 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 Emphysema 5. Hypertension 6. Lidocaine allergy Discussion The patient was moved to ICU yesterday evening b ecause her blood pressure remained in the 80s. She received 1 L of fluid and she is on lactated Ringer at this time. She has an acceptable urine output about 200 cc since th is morning. She is requiring Levophed at low-dose. I will give her 1 more sma ll bolus. I reviewed her history from pacemaker insertion followed by drainage of left hemothorax. She was noted to have C. difficile colitis durin g this hospital stay and her daughter thinks it is related to the antibiotic given for prophylaxis. She had C. difficile initial ly about 15 years ago then about a year ago and then in August. She continues to have diarrhea and she has a rec cassidy tube now. Her abdomen is tender only to palpation mostly in the left lower quadrant. She had been on full liquid diet. Her white blood cell count is up to 21,000. CT scan of the abdomen few days ago was negative . I just had her do a KUB that did not show dilate d bowel. We will consult gastroenterology in addition to infectious diseases while addressing her C. difficile. Consider adding IV Flagyl. Consider repeat CT sc an of the abdomen. Discussed with her daughter and discussed with the nursing staff. Critical care time 32 minutes at 1014 RPT #: [id number] END OF REPORT 2022-09-26 08:41:00-00:00 [facility] ([facility]) Wound Care Consultation Note REPORT#:[id number] REPORT STATUS: Signed DATE:09/26/22 TIME:08 PATIENT: LESLEY BREAUX UNIT #: [id number] [address]: [address] : [address] AGE: 87 SEX: F ATTEND: Sa chapo Ortega MD Cardiology ADM AUTHOR: Karlo Francis MD * ALL edits or amendments must be made on the el [email or web address]/computer document * History of Present Illness Requesting Clinician: Art Tavera MD Reason for consult: Wound Care HPI: Ms. Lesley Breaux is an 87 year old lady with hx of HTN, HLD, COPD, paroxysmal Afib, sick sinus syndrome, tachybrady sy ndome was admitted to the hospital for postoperative monitoring after PPM place ment by Dr. Ortega today. Pt c/o mild chest wall pain at site of PPM History Past History Allergies: Coded Allergies: fentanyl (Severe, COMA 09/16/22) Penicillins (Intermediate, HIVES 09/16/22) Sulfa (Sulfonamide Antibiotics) (Intermediate, M AKES HER PASS OUT 09/16/22) codeine (Intermediate, VOMITING 09/16/22) hydrocodone (Intermediate, VOMITING 09/16/22) meperidine (From DEMEROL) (Intermediate, THROW U P 09/16/22) morphine (Mild, HIVES 09/16/22) lidocaine (RASH-UNKNOWN 09/19/22) Unable to Obtain History Unable to obtain due to: medical condition Review of Systems Unable to obtain due to: medical condition Objective VS/I O: Last Documented: Result Date Time Pulse Ox 97 09/26 0815 B/P 97/54 09/26 0815 B/P Mean 73 09/26 0815 Pulse 80 09/26 0815 Resp 17 09/26 0815 Temp 97.0 09/26 0700 FiO2 28 09/26 0644 O2 Delivery Nasal cannula 09/26 0644 O2 Flow Rate 2 09/26 0644 24 hour I O ending at 0700: 09/26 0700 09/25 1900 Intake Total 1483.80 Output Total 375 Balance 1108.80 Intake, IV 1483.80 Output, Urine 375 General appearance: chronically ill appearing Head/Eyes: atraumatic Neck: no JVD Cardiovascular: no rub Respiratory: on oxygen Abdomen: soft, non-tender Extremities: no edema Musculoskeletal: atrophy of the limbs Skin: rash (intertriginous) Wound Assessment Wound Assessment 1: Type/cause: pressure Wound location: buttock, sacral region Tissue layers: limited to skin breakdown Site condition: no drainage, no ecchymosis, no erythema Stage of pressure ulcer: stage II Diagnosis, Assessment Plan Problem List/A P: 1. Decubitus ulcer of sacral region, stage 2 A P cleanse with soap and water, spray pt's home diaper rash supply then add in nystatin powder leave open to air carry this out once per RN shift. 2. Decubitus ulcer of buttock, stage 2 A P cleanse with soap and water, spray pt's home diaper rash supply then add in nystatin powder leave open to air carry this out once per RN shift. 3. Intertrigo A P cleanse with soap and water, spray pt's home diaper rash supply then add in nystatin powder leave open to air carry this out once per RN shift. 4. C. difficile diarrhea Electronically Signed by Karlo Francis MD on at 1021 RPT #: [id number] END OF REPORT 2022-09-26 08:40:00-00:00 [facility] ([facility]) Hospitalist Progress Note REPORT#:[id number] REPORT STATUS: Signed DATE:09/26/22 TIME:08 PATIENT: LESLEY BREAUX UNIT #: [id number] ROOM/BED: [place] [id number] : 36 AGE: 87 SEX: F ATTEND: Tuan Ortega MD Cardiology ADM AUTHOR: Art Tavera MD * ALL edits or amendments must be made on the Aeros[employer]/computer document * Subjective Chief complaint: Patient was hypotensive and had to be placed on Levophed Transferred to ICU Objective General VS/I O: Vital Signs: Date Time Temp Pulse Resp B/P B/P Pulse O2 O2 F low FiO2 Mean Ox Delivery Rate 08/ 0815 80 17 97/54 73 97 08/20 0800 78 16 95/49 70 97 08/20 0745 76 17 94/46 67 96 08/20 0730 79 16 96/49 71 96 08/20 0715 80 18 96/52 66 94 08/20 0700 97.0 08/20 0700 75 15 109/55 79 97 08/20 0645 82 18 103/54 77 97 08/20 0644 96 Nasal 2 28 cannula 08/20 0630 75 18 112/57 82 97 08/20 0615 78 15 112/55 79 97 08/20 0600 69 17 110/53 76 96 08/20 0545 75 17 105/52 75 97 08/20 0530 84 18 116/55 79 97 08/20 0515 80 17 96/50 70 96 08/20 0500 82 17 109/54 78 96 08/20 0445 72 14 101/51 73 98 08/20 0430 77 17 106/53 74 97 08/20 0415 76 16 105/52 75 96 08/20 0400 85 18 101/49 71 98 08/20 0400 98.3 85 18 101/49 66 98 Nasal 2 cannula 08/20 0345 82 17 103/51 74 96 08/20 0330 80 20 114/56 81 96 08/20 0315 86 19 107/55 77 96 08/20 0300 82 21 97/46 67 96 08/20 0245 69 19 105/50 72 96 08/20 0230 82 17 104/50 72 96 08/20 0215 83 18 112/53 77 97 08/20 0200 87 93/44 64 95 08/20 0157 74 99/50 66 96 08/20 0145 74 131/61 88 97 08/20 0144 74 134/58 84 97 08/20 0142 79 148/66 95 98 08/20 0140 79 159/69 99 98 08/20 0138 75 86/44 61 95 08/20 0136 81 93/47 65 94 08/20 0134 87 92/46 65 94 08/20 0132 90 91/45 65 95 08/20 0130 76 92/51 68 94 08/20 0128 80 87/47 65 94 08/20 0126 79 92/45 65 94 08/20 0124 84 87/49 64 95 08/20 0122 81 99/49 70 95 08/20 0120 79 96/48 69 95 08/20 0118 78 91/48 66 95 08/20 0116 83 90/47 65 94 08/20 0114 80 78/43 58 94 08/20 0113 80 69/36 49 94 08/20 0112 88 80/41 56 94 08/20 0110 80 82/42 59 94 08/20 0108 82 80/43 56 93 08/20 0106 81 75/36 51 93 08/20 0103 77 77/40 53 93 08/20 0101 80 76/40 54 94 08/20 0100 72 74/37 49 93 08/20 0045 75 91/49 63 93 08/20 0030 72 98/50 72 97 08/20 0029 Non 15 rebreather mask 08/20 0029 97.4 79 17 95/48 63 97 Non 15 rebreather mask 08/20 0029 79 95/48 68 97 08/20 0017 95 Nasal 3 32 cannula 08/20 0015 86 86/45 62 97 08/20 0001 89 103/51 73 100 08/19 2354 76 22 112/54 78 99 08/19 2345 78 20 100/49 71 99 08/19 2339 71 20 101/49 70 98 08/19 2331 80 21 217/89 128 100 08/19 2321 83 19 104/52 75 96 08/19 2315 71 19 95/46 67 96 08/19 2300 81 20 91/44 63 96 08/19 2245 76 18 86/45 61 95 08/19 2230 78 20 83/45 60 95 08/19 2215 85 24 65/43 50 96 08/19 2200 73 17 105/51 74 96 08/19 2145 73 18 95/47 68 96 08/19 2130 82 18 103/50 72 98 08/19 2115 81 18 104/51 74 98 08/19 2101 87 19 102/53 74 98 08/19 2049 88 24 109/43 62 98 08/19 2045 78 18 92/51 67 95 08/19 2029 87 20 85/43 61 96 08/19 2014 76 20 88/44 63 95 08/19 1999 97.3 08/19 1999 Nasal 2 cannula 08/19 1999 86 16 88/44 63 96 08/19 1945 82 18 96/46 66 95 08/19 1930 84 21 86/45 61 95 08/19 1915 78 22 76/38 54 95 08/19 1913 87 20 72/36 48 94 08/19 1912 83 20 66/35 45 94 08/19 1911 73 20 84/40 58 94 08/19 1900 80 18 87/51 66 94 08/19 1826 95 Nasal 2 28 cannula 08/19 1731 88 08/19 1700 75 20 75/41 53 95 08/19 1656 97.7 08/19 1600 80 21 89/53 69 95 08/19 1600 97.7 96 Nasal 2 cannula 08/19 1558 83 22 81/43 56 97 08/19 1500 75 20 87/51 66 94 08/19 1400 80 21 89/46 64 95 08/19 1300 80 24 98/52 72 98 08/19 1200 80 26 97/51 72 100 08/19 1200 98.1 95 2 08/19 1158 98.1 08/19 1142 82 21 108/53 76 08/19 1000 98 21 103/54 76 95 08/19 0913 95 Nasal 2 28 cannula 08/19 0900 98 22 111/52 75 96 24 hour I O ending at 0700: 09/26 0700 09/25 1900 Intake Total 1483.80 Output Total 375 Balance 1108.80 Intake, IV 1483.80 Output, Urine 375 PATIENT WEIGHT: Weight (lb): 99 Weight (oz): 3.33 Weight (kg): 45.000 Medications: Active Meds + DC'd Last 24 Hrs Mupirocin (BACTROBAN NASAL-ADULT ICU/STEVE MRSA PATIENTS) 1 APPLIC 0900,1700 NASAL Ondansetron HCl (ZOFRAN) 4 MG Q6H PRN PRN IV Norepinephrine Bitartrate (Levophed 16 MG/250 ML NS) 250 ML ASDIR IV Sodium Chloride (0.9% Sodium Chloride) 500 ML CHRISTOPHER JEAN MARIE IV (DC) Magnesium Sulfate/Dextrose (MAGNESIUM SULFATE 1 G IN DEXTROSE 5% 100 ML) 100 ML ONCE ONE IV (DC) Lactated Ringer's (LACTATED RINGERS) 1,000 ML .Q 8H IV Sodium Chloride (0.9% Sodium Chloride) 500 ML CHRISTOPHER JEAN MARIE IV (DC) Lactobacillus Acidophilus (BACID) 1 CAP BID PO Fidaxomicin (DIFICID) 200 MG Q12HR PO Furosemide (LASIX 20MG INJ) 20 MG Q12HR IV Sodium Chloride (SODIUM CHLORIDE) 10 ML ASDIR IV Zolpidem Tartrate (AMBIEN) 5 MG BEDTIME PRN PRN PO Acetylcysteine (MUCOMYST 20% 4 ML) 200 MG RTQ6H NEB Iopamidol (ISOVUE-300) 100 ML ONCE PRN IV Sodium Chloride (0.9% Sodium Chloride) 50 ML ONC E PRN IV Tramadol HCl (ULTRAM) 25 MG Q4H PRN PRN PO Albuterol/Ipratropium (DUONEB) 3 ML RTQ6H PRN NV N NEB Iopamidol (ISOVUE-370) 100 ML ONCE PRN IV Losartan Potassium (COZAAR) 12.5 MG DAILY PO (DC ) Atorvastatin Calcium (LIPITOR) 10 MG BEDTIME PO Carvedilol (COREG) 3.125 MG DAILY PO (DC) Sertraline HCl (ZOLOFT) 25 MG DAILY PO Acetaminophen (TYLENOL) 650 MG Q4H PRN PRN PO Ondansetron HCl (ZOFRAN ODT) 4 MG Q8H PRN PRN PO Sodium Chloride (SODIUM CHLORIDE) SALINE FLUSH ASDIR PRN IV Dietitian nutrition assessment The data set between the solid lines has been im ported from the dietitian's assessment. BMI Calculated: 19.4 Nutrition related diagnosis: Nutrition diagnosis details: Nutrition problem: Nutrition etiology: Nutrition signs and symptoms: Nutrition prescription: Dietitian name: Assessment completed: Physical Exam General appearance: lethargic, alert, awake Head/Eyes: atraumatic, normocephalic ENT: dry mucosal membrane Neck: supple/no meningismus Cardiovascular: normal heart sounds, regular rat e rhythm Respiratory: decreased breath sounds, on oxygen, symmetric expansion, no distress, PPM site c/d/i, no overlying edema, er ythema or warmth Abdomen: non-tender, soft Genitourinary: no bladder distention Extremities: moves all, no edema Musculoskeletal: no CVA tenderness Neuro/ENGINEERING INSPECTION ASSISTANT: alert, normal speech Skin: dry Psychiatry: normal affect, normal mood Results Findings/Data: Laboratory Tests 09/26/22625: [Embedded Image Not Available] 09/25/222051: [Embedded Image Not Available] 09/24/22 1229: [Embedded Image Not Available] Laboratory Tests 09/26 Chemistry Sodium (134 - 147 mmol/L) 129 L 129 L Potassium (3.4 - 5.0 mmol/L) 3.4 3.4 Chloride (100 - 108 mmol/L) 97 L 97 L Carbon Dioxide (21 - 32 mmol/L) 27 27 Anion Gap (4.0 - 15.0 GAP calc) 5.0 5.0 BUN (7 - 18 MG/DL) 48 H 47 H Creatinine (0.6 - 1.0 MG/DL) 1.0 1.1 H Glomerular Filtr Rate (>60 estGFR) 55 L 49 L Glucose (70 - 110 MG/DL) 115 H 114 H Calcium (8.5 - 10.1 MG/DL) 8.2 L 8.3 L Phosphorus (2.5 - 4.9 MG/DL) 2.8 Magnesium (1.8 - 2.4 MG/DL) 2.3 1.7 L Laboratory Tests 09/26 09/25 0626 2052 Hematology WBC (3.5 - 11.0 K/mm3) 21.1 H 19.6 H RBC (4.70 - 6.10 M/mm3) 3.59 L 3.51 L Hgb (10.4 - 14.9 G/DL) 10.6 10.4 Hct (31.5 - 44.1 %) 31.2 L 30.5 L MCV (84.5 - 98.6 Fl) 86.9 86.9 MCH (27.0 - 34.2 pg) 29.5 29.6 MCHC (31.5 - 34.0 G/DL) 34.0 34.1 H RDW (11.5 - 14.5 SD) 13.4 13.6 Plt Count (150 - 450 K/mm3) 244 191 MPV (7.0 - 10.5 fL) 9.80 10.00 Neut % (Auto) (40 - 76 %) 80.4 H 82.3 H Lymph % (Auto) (20.5 - 51.1 %) 5.3 L 5.4 L [place] % (Auto) (1.7 - 9.3 %) 8.8 8.4 Eos % (Auto) (0.0 - 6.0 %) 3.0 1.6 Baso % (Auto) (0.0 - 2.0 %) 0.3 0.5 Neut # (Auto) (1.8 - 7.6 K/mm3) 16.9 H 16.1 H Lymph # (Auto) (0.6 - 3.2 K/mm3) 1.1 1.1 [place] # (Auto) (0.3 - 1.1 K/mm3) 1.9 H 1.6 H Eos # (Auto) (0.0 - 0.4 K/mm3) 0.6 H 0.3 Baso # (Auto) (0.0 - 0.1 K/mm3) 0.1 0.1 Abs Immat Gran (auto) (0.00 - 0.03 x10 3/uL) 0. 47 H 0.35 H Add Manual Diff (CRITERIA DIFF/SCN) NO NO Immature Gran % (0.0 - 5.0 %) 2.2 1.8 Nucleated RBC % (0.0 - 1.0 /100WBC%) 0.0 0.0 Radiology data: Recent Impressions: RADIOLOGY - XR CHEST 1 V 09/25 1155 Report Impression - Status: SIGNED Entered: 09/26/2022 0040 IMPRESSION: No significant interval change in faint left bas ilar atelectasis or pneumonia. Impression By: [email or web address] - Aurora Sheikh RADIOLOGY - XR CHEST 1 V 09/26 0530 Report Impression - Status: SIGNED Entered: 09/26/2022 0627 IMPRESSION: 1. Interval placement of a right upper extremity PICC with tip located in mid SVC. No pneumothorax. 2. Unchanged mild left basilar opacities, which may reflect atelectasis or pneumonia. Impression By: [email or web address] - Blake Ford M.D. Diagnosis, Assessment Plan Free Text DxA P Notes Free text DxA P notes: 87 y/o female with PMHx of H TN, HLD, COPD, paroxysmal Afib, sick sinus syndrome, tachybrady syndome admitted for: Paroxysmal Afib, sick sinus syndrome, tachybrady syndrome s/p PPM placement s/p PPM placement by Cardiology Dr. 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 Pain control with Tylenol/Tramadol PRN Continue home coreg Hold home Eliquis due to anemia with possible he mothorax Complex moderate left pleural effusion / hemotho rax, s/p R sided Cx tube in place with 600c of bloody fluid removed Appreciate pulm medicine, pain control Status post removal of the chest tube Acute normocytic anemia, possibly due to acute b lood loss with possible hemothorax Status post transfusion Monitor H H closely Hypotension with a history of hypertension Hold home coreg, losartan Transferred to ICU Started on Levophed We will try to wean down to MAP of 65 Added on midodrine COPD Not in acute exacerbation Duoneb tx PRN C. difficile colitis Started on fidaxomicin ID consulted Continues to have diarrhea Add on probiotics Hyponatremia Electrolytes monitor and replace accordingly Acute kidney injury Renal parameters monitored DVT prophylaxis with SCDs, held home Eliquis due to anemia Full code Total critical care time used was 38 minutes Electronically Signed by Art Tavera MD on at 0848 RPT #: [id number] END OF REPORT 2022-09-25 19:35:00-00:00 [facility] ([facility]) Clinical Note REPORT#:[id number] REPORT STATUS: Signed DATE:09/25/22 TIME:1934 PATIENT: LESLEY BREAUX UNIT #: [id number] ROOM/BED: [place] [id number] : 36 AGE: 87 SEX: F ATTEND: Tuan Ortega MD Cardiology ADM AUTHOR: Eliu Duarte * ALL edits or amendments must be made on the Aerospike/computer document * Clinical Note Note: (NOT a rapid response case) Nursing repo rting patient's low bp 75/41, trending down. Patient is seen and examined. Patient is a lert and oriented x3, Trendelenburg position, not in distress. Denies chest pain or shortness of breath, O2 94% on NC. Denies dizziness, but saying "feel terrible". Per nursing and family , patient has not been eating well, h as had 4 times of diarrhea today. She is C-diff positive. Patient has been on fluid restriction due to pleural effusion. She is s/p chest tube , a david keann, had hemothorax, s/p transfusion. Patient is on diuretics as well. Ne ck, no JVD, CV RRR, Pul clear to auscultation, nonlabored breathing, abdomen s oft, nontender, skin dry. Clinical impression: Hypotension due to hypovole rayshawn secondary to dehydration. Place 500cc NV bolus and maintain with LR 125cc/ h, closely monitoring respiratory status. Will get cbc, bmp. c heck renal parameter. Will get CXR for baseline at this moment as patient is getting IV fluids. Will hydrate and see her respond. Will consider ICU upgrade if not re sponding well. Target SBP 90- 100mmHg. Hold all bp medicat ions. May give diuretics if BP stabilized. Discussed with nursing staff and family at bedside. Electronically Signed by Eliu Duarte 09/25/22 at 1950 Electronically Signed by Art Tavera MD on at 2128 RPT #: [id number] END OF REPORT 2022-09-25 11:05:00-00:00 [facility] ([facility]) Hospitalist Progress Note REPORT#:[id number] REPORT STATUS: Signed DATE:09/25/22 TIME:1105 PATIENT: LESLEY BREAUX UNIT #: [id number] ROOM/BED: [place] [id number] : 36 AGE: 87 SEX: F ATTEND: Tuan Ortega MD Cardiology ADM AUTHOR: Art Tavera MD * ALL edits or amendments must be made on the Aerospike/computer document * Subjective Chief complaint: No acute events Feeling slightly better HPI: pt appears weak and frail today, c/o intermitten t dizziness telemetry reviewed, pt has short intermittent pa uses with HR as low as 31, cardiology notified labs reviewed, Hgb trending down to 8.1 from 12. 2 09/18/22 will upgrade to IMCU for closer monitoring Objective General VS/I O: Vital Signs: Temp Pulse Resp B/P B/P Pulse O2 O2 Flow FiO2 Mean Ox Delivery Rate 80 17 97/54 73 97 78 16 95/49 70 97 76 17 94/46 67 96 79 16 96/49 71 96 80 18 96/52 66 94 97.0 75 15 109/55 79 97 82 18 103/54 77 97 96 Nasal 2 28 cannula 75 18 112/57 82 97 78 15 112/55 79 97 69 17 110/53 76 96 75 17 105/52 75 97 84 18 116/55 79 97 80 17 96/50 70 96 82 17 109/54 78 96 72 14 101/51 73 98 77 17 106/53 74 97 76 16 105/52 75 96 85 18 101/49 71 98 98.3 85 18 101/49 66 98 Nasal 2 cannula 82 17 103/51 74 96 80 20 114/56 81 96 86 19 107/55 77 96 82 21 97/46 67 96 69 19 105/50 72 96 82 17 104/50 72 96 83 18 112/53 77 97 87 93/44 64 95 74 99/50 66 96 74 131/61 88 97 74 134/58 84 97 79 148/66 95 98 79 159/69 99 98 75 86/44 61 95 81 93/47 65 94 87 92/46 65 94 90 91/45 65 95 76 92/51 68 94 80 87/47 65 94 79 92/45 65 94 84 87/49 64 95 81 99/49 70 95 79 96/48 69 95 78 91/48 66 95 83 90/47 65 94 80 78/43 58 94 80 69/36 49 94 88 80/41 56 94 80 82/42 59 94 82 80/43 56 93 81 75/36 51 93 77 77/40 53 93 80 76/40 54 94 72 74/37 49 93 75 91/49 63 93 72 98/50 72 97 Non 15 rebreather mask 97.4 79 17 95/48 63 97 Non 15 rebreather mask 79 95/48 68 97 95 Nasal 3 32 cannula 86 86/45 62 97 89 103/51 73 100 76 22 112/54 78 99 78 20 100/49 71 99 71 20 101/49 70 98 80 21 217/89 128 100 83 19 104/52 75 96 71 19 95/46 67 96 81 20 91/44 63 96 76 18 86/45 61 95 78 20 83/45 60 95 85 24 65/43 50 96 73 17 105/51 74 96 73 18 95/47 68 96 82 18 103/50 72 98 81 18 104/51 74 98 87 19 102/53 74 98 88 24 109/43 62 98 78 18 92/51 67 95 87 20 85/43 61 96 76 20 88/44 63 95 97.3 Nasal 2 cannula 86 16 88/44 63 96 82 18 96/46 66 95 84 21 86/45 61 95 78 22 76/38 54 95 87 20 72/36 48 94 83 20 66/35 45 94 73 20 84/40 58 94 80 18 87/51 66 94 95 Nasal 2 28 cannula 88 75 20 75/41 53 95 97.7 80 21 89/53 69 95 97.7 96 Nasal 2 cannula 83 22 81/43 56 97 75 20 87/51 66 94 80 21 89/46 64 95 80 24 98/52 72 98 80 26 97/51 72 100 98.1 95 2 98.1 82 21 108/53 76 98 21 103/54 76 95 95 Nasal 2 28 cannula 98 22 111/52 75 96 24 hour I O ending at 0700: 09/26 0700 09/25 1900 Intake Total 1483.80 Output Total 375 Balance 1108.80 Intake, IV 1483.80 Output, Urine 375 PATIENT WEIGHT: Weight (lb): 99 Weight (oz): 3.33 Weight (kg): 45.000 Medications: Active Meds + DC'd Last 24 Hrs Mupirocin (BACTROBAN NASAL-ADULT ICU/STEVE MRSA PATIENTS) 1 APPLIC 0900,1700 NASAL Ondansetron HCl (ZOFRAN) 4 MG Q6H PRN PRN IV Norepinephrine Bitartrate (Levophed 16 MG/250 ML NS) 250 ML ASDIR IV Sodium Chloride (0.9% Sodium Chloride) 500 ML CHRISTOPHER JEAN MARIE IV (DC) Magnesium Sulfate/Dextrose (MAGNESIUM SULFATE 1 G IN DEXTROSE 5% 100 ML) 100 ML ONCE ONE IV (DC) Lactated Ringer's (LACTATED RINGERS) 1,000 ML .Q 8H IV Sodium Chloride (0.9% Sodium Chloride) 500 ML CHRISTOPHER JEAN MARIE IV (DC) Lactobacillus Acidophilus (BACID) 1 CAP BID PO Fidaxomicin (DIFICID) 200 MG Q12HR PO Furosemide (LASIX 20MG INJ) 20 MG Q12HR IV Sodium Chloride (SODIUM CHLORIDE) 10 ML ASDIR IV Zolpidem Tartrate (AMBIEN) 5 MG BEDTIME PRN PRN PO Acetylcysteine (MUCOMYST 20% 4 ML) 200 MG RTQ6H NEB Iopamidol (ISOVUE-300) 100 ML ONCE PRN IV Sodium Chloride (0.9% Sodium Chloride) 50 ML ONC E PRN IV Tramadol HCl (ULTRAM) 25 MG Q4H PRN PRN PO Albuterol/Ipratropium (DUONEB) 3 ML RTQ6H PRN NV N NEB Iopamidol (ISOVUE-370) 100 ML ONCE PRN IV Losartan Potassium (COZAAR) 12.5 MG DAILY PO (D C) Atorvastatin Calcium (LIPITOR) 10 MG BEDTIME PO Carvedilol (COREG) 3.125 MG DAILY PO (DC) Sertraline HCl (ZOLOFT) 25 MG DAILY PO Acetaminophen (TYLENOL) 650 MG Q4H PRN PRN PO Ondansetron HCl (ZOFRAN ODT) 4 MG Q8H PRN PRN PO Sodium Chloride (SODIUM CHLORIDE) SALINE FLUSH ASDIR PRN IV Dietitian nutrition assessment The data set between the solid lines has been im ported from the dietitian's assessment. BMI Calculated: 19.4 Nutrition related diagnosis: Nutrition diagnosis details: Nutrition problem: Nutrition etiology: Nutrition signs and symptoms: Nutrition prescription: Dietitian name: Assessment completed: Physical Exam General appearance: chronically ill appearing, a lert, awake Head/Eyes: atraumatic, normocephalic ENT: poor dentition, moist mucosal membranes Cardiovascular: normal heart sounds, regular rat e rhythm Respiratory: decreased breath sounds, on oxygen, symmetric expansion, no distress, PPM site c/d/i, no overlying edema, er ythema or warmth Abdomen: non-tender, soft Extremities: moves all, no edema Neuro/ENGINEERING INSPECTION ASSISTANT: alert, normal speech Psychiatry: normal affect, normal mood Results Findings/Data: Laboratory Tests 09/25/222051: [Embedded Image Not Available] Radiology data: Recent Impressions: RADIOLOGY - XR CHEST 1 V 09/25 1155 Report Impression - Status: SIGNED Entered: 09/26/2022 0040 IMPRESSION: No significant interval change in faint left bas ilar atelectasis or pneumonia. Impression By: Aurora Skaggs Diagnosis, Assessment Plan Free Text DxA P Notes Free text DxA P notes: 87 y/o female with PMHx of H TN, HLD, COPD, paroxysmal Afib, sick sinus syndrome, tachybrady syndome admitted for: Paroxysmal Afib, sick sinus syndrome, tachybrady syndrome s/p PPM placement s/p PPM placement by Cardiology Dr. 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 difficile colitis Started on fidaxomicin ID consulted Continues to have diarrhea Add on probiotics Hyponatremia Electrolytes monitor and replace accordingly Acute kidney injury Renal parameters monitored DVT prophylaxis with SCDs, held home Eliquis due to anemia Full code Total critical care time used was 32minutes Electronically Signed by Art Tavera MD on at 0850 RPT #: [id number] END OF REPORT 2022-09-24 14:06:00-00:00 [facility] ([facility]) Infect Disease Consult Note REPORT#:[id number] REPORT STATUS: Signed DATE:09/24/22 TIME:1406 PATIENT: LESLEY BREAUX UNIT #: [id number] ROOM/BED: [place] [id number] : 36 AGE: 87 SEX: F ATTEND: Tuan Ortega MD Cardiology ADM AUTHOR: Curtis Sun MD * ALL edits or amendments must be made on the [email or web address]/computer document * See Addendum History of Present Illness Chief complaint: Recurrent C. diff. HPI: 87 yo female with h/o HTN, HLD, COPD, paroxysmal Afib, sick sinus syndrome, tachybrady syndome who was admitted for postoper ative monitoring after PPM placement by Dr. Ortega. Pt developed worsening intermittent diarrhea associated with abdominal cramps. C. dif f test came back positive. Fidaxomicin ordered today. History - Adult longitudinal Past medical history: Reports: Hypertension. Additional medical history: None. Family history: Reports: Heart disease, Hypertension. Smoking status for patients 13 years old or olde r: Never Smoker Allergies: Coded Allergies: fentanyl (Severe, COMA 09/16/22) Penicillins (Intermediate, HIVES 09/16/22) Sulfa (Sulfonamide Antibiotics) (Intermediate, M AKES HER PASS OUT 09/16/22) codeine (Intermediate, VOMITING 09/16/22) hydrocodone (Intermediate, VOMITING 09/16/22) meperidine (From DEMEROL) (Intermediate, THROW U P 09/16/22) morphine (Mild, HIVES 09/16/22) lidocaine (RASH-UNKNOWN 09/19/22) Review of Systems Unable to obtain due to: Poor historian. Objective General VS/I O: Vital Signs Date Temp Pulse Resp B/P B/P Mean Pulse Ox FiO2 09/23-09/24 36.8-39.3 70-87 15-49 102-155/51-67 73-97 92-99 28 Last Documented: Result Date Time Temp 37.6 09/24 1321 Pulse Ox 92 / 0803 FiO2 28 / 0803 O2 Delivery Nasal cannula 09/24 0803 O2 Flow Rate 2 / 0803 B/P 115/53 08/18 0645 B/P Mean 77 / 0645 Pulse 71 /18 0645 Resp 18 08/ 0645 Vital Signs: Date Time Temp Pulse Resp B/P B/P Pulse O2 O2 F low FiO2 Mean Ox Delivery Rate 09/24 1321 37.6 08/18 0814 36.8 08/18 0803 92 Nasal 2 28 cannula 08/18 0645 71 18 115/53 77 95 08/18 0630 70 15 118/55 79 96 08/18 0615 72 17 128/60 87 96 08/18 0600 72 17 116/57 82 96 08/18 0448 37.0 08/18 0230 73 19 107/53 76 95 08/18 0215 73 19 111/55 79 96 08/18 0200 73 20 112/54 78 95 08/18 0145 73 20 115/56 81 95 /18 0130 71 20 112/54 78 96 /18 0115 71 20 122/58 83 97 08/18 0100 71 19 113/56 80 97 08/18 0030 71 20 109/51 73 97 08/18 0015 75 20 120/58 83 96 08/18 0003 36.9 09/24 0000 74 21 102/51 73 95 /17 2245 74 22 110/53 77 94 /17 2230 73 22 110/52 75 95 /17 2215 74 20 121/59 85 95 /17 2200 76 21 126/61 88 96 / 2145 75 20 125/60 86 98 / 2130 75 19 133/59 85 99 / 2115 74 26 123/59 85 98 / 2100 75 20 116/55 79 95 09/23 2000 37.1 09/23 2000 Nasal 2 cannula 09/23 1953 37.5 09/23 1922 95 Nasal 2 cannula 09/23 1900 38.0 09/23 1900 83 31 132/59 85 94 09/23 1856 83 09/23 1845 84 21 120/57 82 94 / 1830 83 18 121/57 82 95 09/23 1800 87 33 153/67 97 97 09/23 1723 87 49 140/63 91 96 09/23 1700 85 36 151/67 96 93 09/23 1638 39.3 26 09/23 1637 38.7 28 09/23 1630 85 32 144/64 92 96 09/23 1600 84 26 155/67 96 99 24 hour I O ending at 0700: 09/24 0700 09/23 1900 Intake Total 440 920.00 Output Total 1250 10 Balance -810 910.00 Intake, IV 20.00 Intake, Oral 440 700 Intake, Oral 200 Supplement Number 6 1 Bowel Movements Output, Chest 10 Tube Drainage Output, Urine 1250 PATIENT WEIGHT: Weight (lb): 99 Weight (oz): 3.33 Weight (kg): 45.000 Physical Exam General appearance: chronically ill appearing, f rail, awake, no respiratory distress Head/Eyes: atraumatic, clear cornea, EOMI, staci l conjunctiva/sclera, normal eyelids/periorb, normocephalic ENT: moist mucosal membranes, normal nose Neck: full range of motion, non-tender, supple/n o meningismus Cardiovascular: regular rate rhythm Respiratory: symmetric expansion, no distress Abdomen: non-tender, normal bowel sounds, soft, no CVA tenderness, no distention , no guarding, no mass/organomegaly Genitourinary: no flank pain Extremities: normal temperature, no cyanosis Neuro/ENGINEERING INSPECTION ASSISTANT: alert, normal speech Skin: normal turgor, no rash Psychiatry: normal affect, normal mood Diagnosis, Assessment Plan Free Text DxA P Notes Free text DxA P notes: Laboratory Tests 09/24/22 1229: [Embedded Image Not Available] 09/23/22 0333: [Embedded Image Not Available] Imaging: CXR reviewed 09/24 CTAP reviewed 09/20 Assessment: 1. Recurrent C. difficile colitis. 2. SIRS (fever, leukocytosis) likely due to abov e. 3. Left pleural effusion s/p chest tube removal. 4. 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 5. Allergy to penicillin (hives) and sulfas (pas sed out). Plan: 1. Fidaxomicin (day 1 of 10). 2. Avoid systemic abxs if possible. 3. Monitor CBC. 4. Monitor kidney function. 5. Pulmonary following. 6. Contact isolation. 7. Case discussed with hospitalist. Thank you for this consult. at 1543 Addendum 1: 09/25/22 1146 by Reji Sun MD Pt reports having C. diff in the past. at 1146 RPT #: [id number] END OF REPORT 2022-09-24 12:15:00-00:00 [facility] ([facility]) Pulmonology Progress Note REPORT#:[id number] REPORT STATUS: Signed DATE:09/24/22 TIME:1214 PATIENT: LESLEY BREAUX UNIT #: [id number] ROOM/BED: [place] [address] : 36 AGE: 87 SEX: F ATTEND: Sa chapo Ortega MD Cardiology ADM AUTHOR: Mauro Arce MD * ALL edits or amendments must be made on the el [employer]/computer document * Subjective Chief complaint: abdominal pain and diarrhea Improved Left-sided chest pain, no shortness of breath HPI: Pleasant 87-year-old lady who underwent pacemake r placement yesterday for tachybradycardia syndrome. She was having more shortnes s of breath and left-sided chest pain for which a CT angiogram of the chest was done, see full report . Images reviewed and discussed with patient and cheyanne hoover. There is a small to moderate size left pleural effusion with different densities suggesting possible blood product. There are als o chronic appearing reticular nodular, tree-in-bud type peripheral mostly lowe r zone infiltrates right more than left, no prior CT images to compare. The patient denies much in the way of chronic sp utum fevers chills sweats or significant weight loss. The patient has emphysema has seen pulmo abisai doctors in the outpatient setting at [facility] but never smoked. Except described above, review of systems x14 is negative and normal. Review of Systems ROS Allergy/Immun: Denies: anaphylaxis, hives. ENT: Denies: hearing loss, mouth pain. GI: Reports: abdominal pain, diarrhea. Denies: hemat emesis, hematochezia. Neuro: Denies: numbness, seizure. Objective General VS/I O: Last Documented: Result Date Time Temp 36.8 09/24 0814 Pulse Ox 92 09/24 0803 FiO2 28 09/24 0803 O2 Delivery Nasal cannula 09/24 0803 O2 Flow Rate 2 09/24 0803 B/P 115/53 09/24 0645 B/P Mean 77 09/24 0645 Pulse 71 09/24 0645 Resp 18 09/24 0645 24 hour I O ending at 0700: 09/24 0700 09/23 1900 Intake Total 440 920.00 Output Total 1250 10 Balance -810 910.00 Intake, IV 20.00 Intake, Oral 440 700 Intake, Oral 200 Supplement Number 6 1 Bowel Movements Output, Chest 10 Tube Drainage Output, Urine 1250 PATIENT WEIGHT: Weight (lb): 99 Weight (oz): 3.33 Weight (kg): 45.000 Medications: Active Meds + DC'd Last 24 Hrs Fidaxomicin (DIFICID) 200 MG Q12HR PO Furosemide (LASIX 20MG INJ) 20 MG Q12HR IV Hydromorphone HCl (DILAUDID) 0.5 MG Q6H PRN PRN IV (DC) Sodium Chloride (SODIUM CHLORIDE) 10 ML ASDIR IV Zolpidem Tartrate (AMBIEN) 5 MG BEDTIME PRN PRN PO Acetylcysteine (MUCOMYST 20% 4 ML) 200 MG RTQ6H NEB Cefazolin Sodium (KEFZOL) 1 GM Q8HR IV (DC) Sterile Water (WATER FOR INJECTION) 10 ML Iopamidol (ISOVUE-300) 100 ML ONCE PRN IV Sodium Chloride (0.9% Sodium Chloride) 50 ML ONC E PRN IV Tramadol HCl (ULTRAM) 25 MG Q4H PRN PRN PO Albuterol/Ipratropium (DUONEB) 3 ML RTQ6H PRN NV N NEB Iopamidol (ISOVUE-370) 100 ML ONCE PRN IV Losartan Potassium (COZAAR) 12.5 MG DAILY PO Atorvastatin Calcium (LIPITOR) 10 MG BEDTIME PO Carvedilol (COREG) 3.125 MG DAILY PO Sertraline HCl (ZOLOFT) 25 MG DAILY PO Acetaminophen (TYLENOL) 650 MG Q4H PRN PRN PO Ondansetron HCl (ZOFRAN ODT) 4 MG Q8H PRN PRN P O Sodium Chloride (SODIUM CHLORIDE) SALINE FLUSH ASDIR PRN IV Physical Exam Head/eyes: atraumatic, normocephalic, normal con junctiva/sclera ENT: ENT: moist mucosal membranes, normal pharynx Neck: non-tender, supple/no meningismus Cardiovascular: normal S1/S2, regular rate rhyth m Respiratory/chest: decreased breath sounds, on o xygen, rales, bandage, sling Abdomen: soft, non-tender Extremities: edema, no clubbing, no cyanosis Musculoskeletal: normal inspection, no muscle sp asm Neuro/ENGINEERING INSPECTION ASSISTANT: alert, oriented X 3, no motor deficit s Skin: dry, intact Lymphatics: neck normal, no lymphadenopathy Results Findings/Data: Laboratory Tests 09/24 Chemistry POC Glucose (70 - 110 mg/dL) 112 H 144 H Radiology data: Recent Impressions: RADIOLOGY - XR CHEST 1 V 09/23 1726 Report Impression - Status: SIGNED Entered: 09/23/2022 1747 IMPRESSION: Interval removal of the left-sided pigtail thuan ter. No pneumothorax. Impression By: [email or web address] - Kiersten Padilla MD RADIOLOGY - XR CHEST 1 V 09/25 0724 Report Impression - Status: SIGNED Entered: 09/24/2022 0922 IMPRESSION: Minimal patchy opacity left lung base. This coul d be due to atelectasis or pneumonia. There is a tiny left pleural effusion. Compared to the prior exam, there has been no si gnificant change. Impression By: BrettPMT - Cinthia Smith Diagnosis, Assessment Plan Free Text A P: Impression 1. Left pleural effusion apparently new blood la yering densities, unclear etiology 2. Chronic appearing lung parenchymal changes, r ecommend outpatient follow-up Evaluation, she can follow-up with her pulmonary doctor that has she has recently seen in the office 3. Status post pacemaker, tachybradycardia syndr ome, history of atrial fibrillation 4. Emphysema 5. Hypertension 6. Lidocaine allergy Discussion The patient is allergic to lidocaine, states xiomara t she developed diffuse rash, hives, welts however this wa s many years ago after a dental procedure but she is not sure of the exact details. I spoke with nursing staff as well as ph armacist regarding alternative topical anesthetics of a different class than lidocaine however this is not available here. Due to patient's poor respiratory status a nd lack of monitoring and resources of the weekend wou ld like to avoid systemic sedation as was done with pacemaker placement. She is also allergic to opi ates. Recommendation 1. Consultation with interventional radiology an d pharmacy and possibly anesthesia to conduct left diagnostic and therap eutic thoracentesis tomorrow. She will need closer monitoring. 2. Send pleural fluid for analysis 3. Follow-up imaging 4. Patient advised to follow-up with her pulmona ry doctor in the outpatient setting in regards to the abnormal CT chest that seen her as far as the lung parenchymal changes 09/20 Reviewed her imaging studies evidence of moderat e effusion with possible left lower lobe atelectasis Both do not explain the drop in hemoglobin 4 g We will order CT abdomen and pelvis PPI IV Chest PT using a flutter device and Mucomyst twi ce daily Thoracentesis by IR ordered Incentive spirometry IV antibiotics Follow-up imaging studies of the chest 09/21 Patient has severe pain with continuing to have dropping hemoglobin I did an ultrasound showed evidence of effusion I placed chest tube Bloody fluid was noted I drained [address] under suction for the next 24 hour s If stable in a.m. we will remove to I give the patient Dilaudid 0.25 mg We will give 2 units packed RBC 09/22 sp severe pain with continuing to have dropping hemoglobin I did an ultrasound showed evidence of effusion sp[ chest tube sp blood tranusion stable HH follow up CXR Follow up IO 09/23 sp severe pain with continuing to have dropping hemoglobin sp chest tube minimal output sp blood tranusion stable HH follow up CXR improving remove chest tube Follow up IO OK for DC from pulmonary stand point 09/24 sp chest tube removal CXR reviewedd and stable Diarrhea On treatments sp blood tranusion stable follow up CXR improving Follow up IO stable pulmonary status Electronically Signed by Mauro Arce MD on 09/07 09/29 at 1221 RPT #: [id number] END OF REPORT 2022-09-24 10:33:00-00:00 [facility] ([facility]) Hospitalist Progress Note REPORT#:[id number] REPORT STATUS: Signed DATE:09/24/22 TIME:1033 PATIENT: LESLEY BREAUX UNIT #: [id number] ROOM/BED: [place] [address] : 36 AGE: 87 SEX: F ATTEND: Tuan Ortega MD Cardiology ADM AUTHOR: Art Tavera MD * ALL edits or amendments must be made on the el [email or web address]/computer document * Subjective Chief complaint: dressing in place, no nausea, no vomiting, no fever HPI: pt appears weak and frail today, c/o intermitten t dizziness telemetry reviewed, pt has short intermittent pa uses with HR as low as 31, cardiology notified labs reviewed, Hgb trending down to 8.1 from 12. 2 09/18/22 will upgrade to IMCU for closer monitoring Objective General VS/I O: Vital Signs: Temp Pulse Resp B/P B/P Pulse O2 O2 Flow FiO2 Mean Ox Delivery Rate 80 17 97/54 73 97 78 16 95/49 70 97 76 17 94/46 67 96 79 16 96/49 71 96 80 18 96/52 66 94 97.0 75 15 109/55 79 97 82 18 103/54 77 97 96 Nasal 2 28 cannula 75 18 112/57 82 97 78 15 112/55 79 97 69 17 110/53 76 96 75 17 105/52 75 97 84 18 116/55 79 97 80 17 96/50 70 96 82 17 109/54 78 96 72 14 101/51 73 98 77 17 106/53 74 97 76 16 105/52 75 96 85 18 101/49 71 98 98.3 85 18 101/49 66 98 Nasal 2 cannula 82 17 103/51 74 96 80 20 114/56 81 96 86 19 107/55 77 96 82 21 97/46 67 96 69 19 105/50 72 96 82 17 104/50 72 96 83 18 112/53 77 97 87 93/44 64 95 74 99/50 66 96 74 131/61 88 97 74 134/58 84 97 79 148/66 95 98 79 159/69 99 98 75 86/44 61 95 81 93/47 65 94 87 92/46 65 94 90 91/45 65 95 76 92/51 68 94 80 87/47 65 94 79 92/45 65 94 84 87/49 64 95 81 99/49 70 95 79 96/48 69 95 78 91/48 66 95 83 90/47 65 94 80 78/43 58 94 80 69/36 49 94 88 80/41 56 94 80 82/42 59 94 82 80/43 56 93 81 75/36 51 93 77 77/40 53 93 80 76/40 54 94 72 74/37 49 93 75 91/49 63 93 72 98/50 72 97 Non 15 rebreather mask 97.4 79 17 95/48 63 97 Non 15 rebreather mask 79 95/48 68 97 95 Nasal 3 32 cannula 86 86/45 62 97 89 103/51 73 100 76 22 112/54 78 99 78 20 100/49 71 99 71 20 101/49 70 98 80 21 217/89 128 100 83 19 104/52 75 96 71 19 95/46 67 96 81 20 91/44 63 96 76 18 86/45 61 95 78 20 83/45 60 95 85 24 65/43 50 96 73 17 105/51 74 96 73 18 95/47 68 96 82 18 103/50 72 98 81 18 104/51 74 98 87 19 102/53 74 98 88 24 109/43 62 98 78 18 92/51 67 95 87 20 85/43 61 96 76 20 88/44 63 95 97.3 Nasal 2 cannula 86 16 88/44 63 96 82 18 96/46 66 95 84 21 86/45 61 95 78 22 76/38 54 95 87 20 72/36 48 94 83 20 66/35 45 94 73 20 84/40 58 94 80 18 87/51 66 94 95 Nasal 2 28 cannula 88 75 20 75/41 53 95 97.7 80 21 89/53 69 95 97.7 96 Nasal 2 cannula 83 22 81/43 56 97 75 20 87/51 66 94 80 21 89/46 64 95 80 24 98/52 72 98 80 26 97/51 72 100 98.1 95 2 98.1 82 21 108/53 76 98 21 103/54 76 95 95 Nasal 2 28 cannula 98 22 111/52 75 96 PATIENT WEIGHT: Weight (lb): 99 Weight (oz): 3.33 Weight (kg): 45.000 Medications: Active Meds + DC'd Last 24 Hrs Mupirocin (BACTROBAN NASAL-ADULT ICU/STEVE MRSA PATIENTS) 1 APPLIC 0900,1700 NASAL Ondansetron HCl (ZOFRAN) 4 MG Q6H PRN PRN IV Norepinephrine Bitartrate (Levophed 16 MG/250 ML NS) 250 ML ASDIR IV Sodium Chloride (0.9% Sodium Chloride) 500 ML CHRISTOPHER JEAN MARIE IV (DC) Magnesium Sulfate/Dextrose (MAGNESIUM SULFATE 1 G IN DEXTROSE 5% 100 ML) 100 ML ONCE ONE IV (DC) Lactated Ringer's (LACTATED RINGERS) 1,000 ML .Q 8H IV Sodium Chloride (0.9% Sodium Chloride) 500 ML CHRISTOPHER JEAN MARIE IV (DC) Lactobacillus Acidophilus (BACID) 1 CAP BID PO Fidaxomicin (DIFICID) 200 MG Q12HR PO Furosemide (LASIX 20MG INJ) 20 MG Q12HR IV Sodium Chloride (SODIUM CHLORIDE) 10 ML ASDIR IV Zolpidem Tartrate (AMBIEN) 5 MG BEDTIME PRN PRN PO Acetylcysteine (MUCOMYST 20% 4 ML) 200 MG RTQ6H NEB Iopamidol (ISOVUE-300) 100 ML ONCE PRN IV Sodium Chloride (0.9% Sodium Chloride) 50 ML ONC E PRN IV Tramadol HCl (ULTRAM) 25 MG Q4H PRN PRN PO Albuterol/Ipratropium (DUONEB) 3 ML RTQ6H PRN NV N NEB Iopamidol (ISOVUE-370) 100 ML ONCE PRN IV Losartan Potassium (COZAAR) 12.5 MG DAILY PO (DC ) Atorvastatin Calcium (LIPITOR) 10 MG BEDTIME PO Carvedilol (COREG) 3.125 MG DAILY PO (DC) Sertraline HCl (ZOLOFT) 25 MG DAILY PO Acetaminophen (TYLENOL) 650 MG Q4H PRN PRN PO Ondansetron HCl (ZOFRAN ODT) 4 MG Q8H PRN PRN PO Sodium Chloride (SODIUM CHLORIDE) SALINE FLUSH ASDIR PRN IV Dietitian nutrition assessment The data set between the solid lines has been im ported from the dietitian's assessment. BMI Calculated: 19.4 Nutrition related diagnosis: Nutrition diagnosis details: Nutrition problem: Nutrition etiology: Nutrition signs and symptoms: Nutrition prescription: Dietitian name: Assessment completed: Physical Exam General appearance: frail, alert, awake Head/Eyes: atraumatic, normocephalic ENT: poor dentition, moist mucosal membranes Cardiovascular: normal heart sounds, regular rat e rhythm Respiratory: decreased breath sounds, on oxygen, symmetric expansion, no distress, PPM site c/d/i, no overlying edema, er ythema or warmth Abdomen: non-tender, soft Extremities: moves all, no edema Neuro/ENGINEERING INSPECTION ASSISTANT: alert, normal speech Psychiatry: normal affect, normal mood Results Findings/Data: Laboratory Tests 09/24/22 1229: [Embedded Image Not Available] Diagnosis, Assessment Plan Free Text DxA P Notes Free text DxA P notes: 87 y/o female with PMHx of H TN, HLD, COPD, paroxysmal Afib, sick sinus syndrome, tachybrady syndome admitted for: #Paroxysmal Afib, sick sinus syndrome, tachybrad y syndrome s/p PPM placement s/p PPM placement by Cardiology Dr. 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 Pain control with Tylenol/Tramadol PRN Continue home coreg Hold home Eliquis due to anemia with possible he mothorax #Complex moderate left pleural effusion / hemoth orax, s/p R sided Cx tube in place with 600c of bloody fl uid removed - appreciate pulm medicine, pain control #Acute normocytic anemia, possibly due to acute blood loss with possible hemothorax being transfused PRBCs today #Hypertension Continue home coreg, losartan IV hydralazine PRN #Hx of COPD Not in acute exacerbation Duoneb tx PRN DVT prophylaxis with SCDs, held home Eliquis due to anemia with possible hemothorax Full code Ct tube in place , called and left msg for april Rooney [phone] Clamping chest tube appreciate help from pulmonology discussed about the findings C. difficile still pending As the patient continues to have diarrhea History of C. difficile previously treated with vancomycin and Flagyl and fidaxomicin We will start on fidaxomicin empirically Total critical care time used was 38 minutes Electronically Signed by Art Tavera MD on at 0858 RPT #: [id number] END OF REPORT 2022-09-23 11:59:00-00:00 [facility] ([facility]) Pulmonology Progress Note REPORT#:[id number] REPORT STATUS: Signed DATE:09/23/22 TIME:1159 PATIENT: LESLEY BREAUX UNIT #: [id number] ROOM/BED: [place] [address] : 36 AGE: 87 SEX: F ATTEND: Tuan Ortega MD Cardiology ADM AUTHOR: Mauro Arce MD * ALL edits or amendments must be made on the [email or web address]/computer document * Subjective Chief complaint: improvinmg Left-sided chest pain, no shortness o f breath HPI: Pleasant 87-year-old lady who underwent pacemake r placement yesterday for tachybradycardia syndrome. She was having more shortnes s of breath and left-sided chest pain for which a CT angiogram of the chest was done, see full report . Images reviewed and discussed with patient and cheyanne hoover. There is a small to moderate size left pleural effusion with different densities suggesting possible blood product. There are als o chronic appearing reticular nodular, tree-in-bud type peripheral mostly lowe r zone infiltrates right more than left, no prior CT images to compare. The patient denies much in the way of chronic sp utum fevers chills sweats or significant weight loss. The patient has emphysema has seen pulmo abisai doctors in the outpatient setting at [facility] but never smoked. Except described above, review of systems x14 is negative and normal. Review of Systems ROS All systems rev neg: except as marked Objective General VS/I O: Last Documented: Result Date Time Pulse 74 09/23 1138 Pulse Ox 98 09/23 1130 B/P 124/56 09/23 1130 B/P Mean 81 09/23 1130 Resp 40 09/23 1130 FiO2 28 09/23 0800 O2 Delivery Nasal cannula 09/23 0800 O2 Flow Rate 2 09/23 0800 Temp 36.8 09/23 0744 24 hour I O ending at 0700: 09/23 0700 09/22 1900 Intake Total 900 Output Total 100 340 Balance -100 560 Intake, Oral 700 Intake, Oral 200 Supplement Number 1 3 Bowel Movements Output, Chest 40 Tube Drainage Output, Urine 100 300 PATIENT WEIGHT: Weight (lb): 99 Weight (oz): 3.33 Weight (kg): 45.000 Medications: Active Meds + DC'd Last 24 Hrs Hydromorphone HCl (DILAUDID) 0.5 MG Q6H PRN PRN IV Sodium Chloride (SODIUM CHLORIDE) 10 ML ASDIR IV Sodium Chloride (0.9% Sodium Chloride) 500 ML ON CE ONE IV (DC) Zolpidem Tartrate (AMBIEN) 5 MG BEDTIME PRN PRN PO Acetylcysteine (MUCOMYST 20% 4 ML) 200 MG RTQ6H NEB Cefazolin Sodium (KEFZOL) 1 GM Q8HR IV Sterile Water (WATER FOR INJECTION) 10 ML Iopamidol (ISOVUE-300) 100 ML ONCE PRN IV Sodium Chloride (0.9% Sodium Chloride) 50 ML ONC E PRN IV Tramadol HCl (ULTRAM) 25 MG Q4H PRN PRN PO Albuterol/Ipratropium (DUONEB) 3 ML RTQ6H PRN NV N NEB Iopamidol (ISOVUE-370) 100 ML ONCE PRN IV Losartan Potassium (COZAAR) 12.5 MG DAILY PO Atorvastatin Calcium (LIPITOR) 10 MG BEDTIME PO Carvedilol (COREG) 3.125 MG DAILY PO Sertraline HCl (ZOLOFT) 25 MG DAILY PO Acetaminophen (TYLENOL) 650 MG Q4H PRN PRN PO Ondansetron HCl (ZOFRAN ODT) 4 MG Q8H PRN PRN PO Sodium Chloride (SODIUM CHLORIDE) SALINE FLUSH ASDIR PRN IV Physical Exam Head/eyes: atraumatic, normocephalic, normal con junctiva/sclera ENT: ENT: moist mucosal membranes, normal pharynx Neck: non-tender, supple/no meningismus Cardiovascular: normal S1/S2, regular rate rhyth m Respiratory/chest: decreased breath sounds, on o xygen, rales, bandage, sling Abdomen: soft, non-tender Extremities: edema, no clubbing, no cyanosis Musculoskeletal: normal inspection, no muscle sp asm Neuro/ENGINEERING INSPECTION ASSISTANT: alert, oriented X 3, no motor deficit s Skin: dry, intact Lymphatics: neck normal, no lymphadenopathy Results Findings/Data: Laboratory Tests 09/23/22332: [Embedded Image Not Available] Laboratory Tests 09/23 Chemistry Sodium (134 - 147 mmol/L) 135 Potassium (3.4 - 5.0 mmol/L) 3.7 Chloride (100 - 108 mmol/L) 101 Carbon Dioxide (21 - 32 mmol/L) 31 Anion Gap (4.0 - 15.0 GAP calc) 3.0 L BUN (7 - 18 MG/DL) 41 H Creatinine (0.6 - 1.0 MG/DL) 0.9 Glomerular Filtr Rate (>60 estGFR) >=60 max est imate Glucose (70 - 110 MG/DL) 121 H POC Glucose (70 - 110 mg/dL) 140 H Calcium (8.5 - 10.1 MG/DL) 8.6 Laboratory Tests 08/17 0333 Hematology WBC (3.5 - 11.0 K/mm3) 12.7 H RBC (4.70 - 6.10 M/mm3) 3.48 L Hgb (10.4 - 14.9 G/DL) 10.4 Hct (31.5 - 44.1 %) 30.5 L MCV (84.5 - 98.6 Fl) 87.6 MCH (27.0 - 34.2 pg) 29.9 MCHC (31.5 - 34.0 G/DL) 34.1 H RDW (11.5 - 14.5 SD) 13.9 Plt Count (150 - 450 K/mm3) 166 MPV (7.0 - 10.5 fL) 10.20 Neut % (Auto) (40 - 76 %) 81.7 H Lymph % (Auto) (20.5 - 51.1 %) 7.1 L [place] % (Auto) (1.7 - 9.3 %) 6.9 Eos % (Auto) (0.0 - 6.0 %) 3.6 Baso % (Auto) (0.0 - 2.0 %) 0.2 Neut # (Auto) (1.8 - 7.6 K/mm3) 10.4 H Lymph # (Auto) (0.6 - 3.2 K/mm3) 0.9 [place] # (Auto) (0.3 - 1.1 K/mm3) 0.9 Eos # (Auto) (0.0 - 0.4 K/mm3) 0.5 H Baso # (Auto) (0.0 - 0.1 K/mm3) 0.0 Abs Immat Gran (auto) (0.00 - 0.03 x10 3/uL) 0. 06 H Add Manual Diff (CRITERIA DIFF/SCN) NO Immature Gran % (0.0 - 5.0 %) 0.5 Nucleated RBC % (0.0 - 1.0 /100WBC%) 0.0 Diagnosis, Assessment Plan Free Text A P: Impression 1. Left pleural effusion apparently new blood la yering densities, unclear etiology 2. Chronic appearing lung parenchymal changes, r ecommend outpatient follow-up Evaluation, she can follow-up with her pulmonary doctor that has she has recently seen in the office 3. Status post pacemaker, tachybradycardia syndr ome, history of atrial fibrillation 4. Emphysema 5. Hypertension 6. Lidocaine allergy Discussion The patient is allergic to lidocaine, states xiomara t she developed diffuse rash, hives, welts however this wa s many years ago after a dental procedure but she is not sure of the exact details. I spoke with nursing staff as well as daniela munson regarding alternative topical anesthetics of a different class than lidocaine however this is not available here. Due to patient's poor respiratory status a nd lack of monitoring and resources of the weekend wou ld like to avoid systemic sedation as was done with pacemaker placement. She is also allergic to opi ates. Recommendation 1. Consultation with interventional radiology an d pharmacy and possibly anesthesia to conduct left diagnostic and therap eutic thoracentesis tomorrow. She will need closer monitoring. 2. Send pleural fluid for analysis 3. Follow-up imaging 4. Patient advised to follow-up with her pulmona ry doctor in the outpatient setting in regards to the abnormal CT chest that seen her as far as the lung parenchymal changes 09/20 Reviewed her imaging studies evidence of moderat e effusion with possible left lower lobe atelectasis Both do not explain the drop in hemoglobin 4 g We will order CT abdomen and pelvis PPI IV Chest PT using a flutter device and Mucomyst twi ce daily Thoracentesis by IR ordered Incentive spirometry IV antibiotics Follow-up imaging studies of the chest 09/21 Patient has severe pain with continuing to have dropping hemoglobin I did an ultrasound showed evidence of effusion I placed chest tube Bloody fluid was noted I drained [address] under suction for the next 24 hour s If stable in a.m. we will remove to I give the patient Dilaudid 0.25 mg We will give 2 units packed RBC 09/22 sp severe pain with continuing to have dropping hemoglobin I did an ultrasound showed evidence of effusion sp[ chest tube sp blood tranusion stable HH follow up CXR Follow up IO 09/23 sp severe pain with continuing to have dropping hemoglobin sp chest tube minimal output sp blood tranusion stable follow up CXR improving remove chest tube Follow up IO OK for DC from pulmonary stand point Electronically Signed by Mauro Arce MD on 09/07 08/29 at 1201 RPT #: [id number] END OF REPORT 2022-09-23 11:31:00-00:00 [facility] ([facility]) Hospitalist Progress Note REPORT#:[id number] REPORT STATUS: Signed DATE:09/23/22 TIME:1131 PATIENT: LESLEY BREAUX UNIT #: [id number] ROOM/BED: ICU02-1 : 36 AGE: 87 SEX: F ATTEND: Tuan Ortega MD Cardiology ADM AUTHOR: Art Tavera MD * ALL edits or amendments must be made on the el [email or web address]/computer document * Subjective Chief complaint: c/p R sided chest pain, better, dressing in plac e, no nausea, no vomiting, no fever HPI: pt appears weak and frail today, c/o intermitten t dizziness telemetry reviewed, pt has short intermittent pa uses with HR as low as 31, cardiology notified labs reviewed, Hgb trending down to 8.1 from 12. 2 09/18/22 will upgrade to IMCU for closer monitoring Objective General VS/I O: Vital Signs: Temp Pulse Resp B/P B/P Pulse O2 O2 Flow FiO2 Mean Ox Delivery Rate 80 17 97/54 73 97 78 16 95/49 70 97 76 17 94/46 67 96 79 16 96/49 71 96 80 18 96/52 66 94 97.0 75 15 109/55 79 97 82 18 103/54 77 97 96 Nasal 2 28 cannula 75 18 112/57 82 97 78 15 112/55 79 97 69 17 110/53 76 96 75 17 105/52 75 97 84 18 116/55 79 97 80 17 96/50 70 96 82 17 109/54 78 96 72 14 101/51 73 98 77 17 106/53 74 97 76 16 105/52 75 96 85 18 101/49 71 98 98.3 85 18 101/49 66 98 Nasal 2 cannula 82 17 103/51 74 96 80 20 114/56 81 96 86 19 107/55 77 96 82 21 97/46 67 96 69 19 105/50 72 96 82 17 104/50 72 96 83 18 112/53 77 97 87 93/44 64 95 74 99/50 66 96 74 131/61 88 97 74 134/58 84 97 79 148/66 95 98 79 159/69 99 98 75 86/44 61 95 81 93/47 65 94 87 92/46 65 94 90 91/45 65 95 76 92/51 68 94 80 87/47 65 94 79 92/45 65 94 84 87/49 64 95 81 99/49 70 95 79 96/48 69 95 78 91/48 66 95 83 90/47 65 94 80 78/43 58 94 80 69/36 49 94 88 80/41 56 94 80 82/42 59 94 82 80/43 56 93 81 75/36 51 93 77 77/40 53 93 80 76/40 54 94 72 74/37 49 93 75 91/49 63 93 72 98/50 72 97 Non 15 rebreather mask 97.4 79 17 95/48 63 97 Non 15 rebreather mask 79 95/48 68 97 95 Nasal 3 32 cannula 86 86/45 62 97 89 103/51 73 100 76 22 112/54 78 99 78 20 100/49 71 99 71 20 101/49 70 98 80 21 217/89 128 100 83 19 104/52 75 96 71 19 95/46 67 96 81 20 91/44 63 96 76 18 86/45 61 95 78 20 83/45 60 95 85 24 65/43 50 96 73 17 105/51 74 96 73 18 95/47 68 96 82 18 103/50 72 98 81 18 104/51 74 98 87 19 102/53 74 98 88 24 109/43 62 98 78 18 92/51 67 95 87 20 85/43 61 96 76 20 88/44 63 95 97.3 Nasal 2 cannula 86 16 88/44 63 96 82 18 96/46 66 95 84 21 86/45 61 95 78 22 76/38 54 95 87 20 72/36 48 94 83 20 66/35 45 94 73 20 84/40 58 94 80 18 87/51 66 94 95 Nasal 2 28 cannula 88 75 20 75/41 53 95 97.7 80 21 89/53 69 95 97.7 96 Nasal 2 cannula 83 22 81/43 56 97 75 20 87/51 66 94 80 21 89/46 64 95 80 24 98/52 72 98 80 26 97/51 72 100 98.1 95 2 98.1 82 21 108/53 76 98 21 103/54 76 95 95 Nasal 2 28 cannula 98 22 111/52 75 96 24 hour I O ending at 0700: 09/26 0700 09/25 1900 Intake Total 1483.80 Output Total 375 Balance 1108.80 Intake, IV 1483.80 Output, Urine 375 PATIENT WEIGHT: Weight (lb): 99 Weight (oz): 3.33 Weight (kg): 45.000 Medications: Active Meds + DC'd Last 24 Hrs Mupirocin (BACTROBAN NASAL-ADULT ICU/STEVE MRSA PATIENTS) 1 APPLIC 0900,1700 NASAL Ondansetron HCl (ZOFRAN) 4 MG Q6H PRN PRN IV Norepinephrine Bitartrate (Levophed 16 MG/250 ML NS) 250 ML ASDIR IV Sodium Chloride (0.9% Sodium Chloride) 500 ML CHRISTOPHER JEAN MARIE IV (DC) Magnesium Sulfate/Dextrose (MAGNESIUM SULFATE 1 G IN DEXTROSE 5% 100 ML) 100 ML ONCE ONE IV (DC) Lactated Ringer's (LACTATED RINGERS) 1,000 ML .Q 8H IV Sodium Chloride (0.9% Sodium Chloride) 500 ML CHRISTOPHER JEAN MARIE IV (DC) Lactobacillus Acidophilus (BACID) 1 CAP BID PO Fidaxomicin (DIFICID) 200 MG Q12HR PO Furosemide (LASIX 20MG INJ) 20 MG Q12HR IV Sodium Chloride (SODIUM CHLORIDE) 10 ML ASDIR IV Zolpidem Tartrate (AMBIEN) 5 MG BEDTIME PRN PRN PO Acetylcysteine (MUCOMYST 20% 4 ML) 200 MG RTQ6H NEB Iopamidol (ISOVUE-300) 100 ML ONCE PRN IV Sodium Chloride (0.9% Sodium Chloride) 50 ML ONC E PRN IV Tramadol HCl (ULTRAM) 25 MG Q4H PRN PRN PO Albuterol/Ipratropium (DUONEB) 3 ML RTQ6H PRN NV N NEB Iopamidol (ISOVUE-370) 100 ML ONCE PRN IV Losartan Potassium (COZAAR) 12.5 MG DAILY PO (DC ) Atorvastatin Calcium (LIPITOR) 10 MG BEDTIME PO Carvedilol (COREG) 3.125 MG DAILY PO (DC) Sertraline HCl (ZOLOFT) 25 MG DAILY PO Acetaminophen (TYLENOL) 650 MG Q4H PRN PRN PO Ondansetron HCl (ZOFRAN ODT) 4 MG Q8H PRN PRN PO Sodium Chloride (SODIUM CHLORIDE) SALINE FLUSH ASDIR PRN IV Physical Exam General appearance: alert Head/Eyes: atraumatic, normocephalic ENT: poor dentition, moist mucosal membranes Cardiovascular: normal heart sounds, regular rat e rhythm Respiratory: decreased breath sounds, on oxygen, symmetric expansion, no distress, PPM site c/d/i, no overlying edema, er ythema or warmth Abdomen: non-tender, soft Extremities: moves all, no edema Neuro/ENGINEERING INSPECTION ASSISTANT: alert, normal speech Psychiatry: normal affect, normal mood Diagnosis, Assessment Plan Free Text DxA P Notes Free text DxA P notes: 87 y/o female with PMHx of H TN, HLD, COPD, paroxysmal Afib, sick sinus syndrome, tachybrady syndome admitted for: #Paroxysmal Afib, sick sinus syndrome, tachybrad y syndrome s/p PPM placement s/p PPM placement by Cardiology Dr. 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 Pain control with Tylenol/Tramadol PRN Continue home coreg Hold home Eliquis due to anemia with possible he mothorax #Complex moderate left pleural effusion / hemoth orax, s/p R sided Cx tube in place with 600c of bloody fl uid removed - appreciate pulm medicine, pain control #Acute normocytic anemia, possibly due to acute blood loss with possible hemothorax being transfused PRBCs today #Hypertension Continue home coreg, losartan IV hydralazine PRN #Hx of COPD Not in acute exacerbation Duoneb tx PRN DVT prophylaxis with SCDs, held home Eliquis due to anemia with possible hemothorax Full code Ct tube in place , called and left msg for dalatricia Rooney [phone] Electronically Signed by Art Tavera MD on at 0858 RPT #: [id number] END OF REPORT 2022-09-22 14:04:00-00:00 [facility] ([facility]) Hospitalist Progress Note REPORT#:[id number] REPORT STATUS: Signed DATE:09/22/22 TIME:1404 PATIENT: LESLEY BREAUX UNIT #: [id number] ROOM/BED: [facility] : 36 AGE: 87 SEX: F ATTEND: Tuan Ortega MD Cardiology ADM AUTHOR: Tejinder Toribio MD * ALL edits or amendments must be made on the el [employer]/computer document * Subjective Chief complaint: c/p R sided chest pain, better, dressing in plac e, no nausea, no vomiting, no fever HPI: pt appears weak and frail today, c/o intermitten t dizziness telemetry reviewed, pt has short intermittent pa uses with HR as low as 31, cardiology notified labs reviewed, Hgb trending down to 8.1 from 12. 2 09/18/22 will upgrade to IMCU for closer monitoring Objective General VS/I O: Vital Signs: Date Time Temp Pulse Resp B/P B/P Pulse O2 O2 Flow FiO2 Mean Ox Delivery Rate 09/22 1204 99.0 / 0900 Nasal 2 cannula 09/22 0824 98.2 / 0727 100 Nasal 2 28 cannula /16 0630 78 57 109/52 75 100 08/16 0600 73 78 118/58 83 100 08/16 0530 87 67 116/56 76 100 08/16 0500 75 47 106/52 75 99 08/16 0430 77 49 107/52 75 99 08/16 0400 98.0 08/16 0400 78 40 120/56 80 100 08/16 0330 77 46 109/51 73 99 08/16 0300 79 33 112/53 76 99 08/16 0230 97.6 08/16 0230 78 49 109/52 75 100 08/16 0200 79 46 110/53 77 100 08/16 0145 80 36 113/52 75 100 08/16 0130 79 27 109/53 76 100 08/16 0115 97.7 08/16 0115 79 50 111/53 77 98 08/16 0100 79 23 119/58 83 100 08/16 0045 77 37 113/51 74 100 08/16 0030 77 36 114/55 79 100 08/16 0015 97.5 08/16 0015 77 23 115/56 80 99 08/16 0000 97.7 08/16 0000 76 42 108/52 75 100 08/15 2350 97.6 08/15 2323 Nasal 2 cannula /15 2300 78 55 94/48 69 100 08/15 2219 79 20 90/51 64 98 08/15 2130 82 14 95/46 66 97 08/15 2100 82 13 104/51 73 99 08/15 2029 83 12 106/50 72 99 08/15 2000 84 16 118/56 81 100 08/15 1945 97.7 09/21 1930 85 14 102/48 69 99 09/21 1900 84 17 112/53 76 100 09/21 1847 100 Nasal 5 60 cannula 09/21 1830 98.3 84 20 117/56 100 / 1800 85 29 124/56 81 99 / 1730 98.3 84 15 136/61 99 / 1700 91 16 144/63 90 100 / 1630 99.1 96 18 107/54 97 09/21 1600 120 11 104/51 68 97 / 1530 99.1 127 16 129/76 97 09/21 1505 97.8 131 14 109/59 97 09/21 1500 132 58 118/54 78 96 09/21 1415 132 18 175/116 132 97 24 hour I O ending at 0700: 09/22 0700 09/21 1900 Intake Total 890.00 50 Output Total 500 1025 Balance 390.00 -975 Intake, IV 140.00 50 Intake, Oral 50 Intake, 700 Packed Cells Number 2 Bowel Movements Output, Chest 50 675 Tube Drainage Output, Urine 450 350 PATIENT WEIGHT: Weight (lb): 99 Weight (oz): 3.33 Weight (kg): 45.000 Dietitian nutrition assessment The data set between the solid lines has been im ported from the dietitian's assessment. BMI Calculated: 19.4 Nutrition related diagnosis: Nutrition diagnosis details: Nutrition problem: Nutrition etiology: Nutrition signs and symptoms: Nutrition prescription: Dietitian name: Assessment completed: Physical Exam General appearance: awake Head/Eyes: atraumatic, normocephalic ENT: poor dentition, moist mucosal membranes Cardiovascular: normal heart sounds, regular rat e rhythm Respiratory: decreased breath sounds, on oxygen, symmetric expansion, no distress, PPM site c/d/i, no overlying edema, er ythema or warmth Abdomen: non-tender, soft Extremities: moves all, no edema Neuro/ENGINEERING INSPECTION ASSISTANT: alert, normal speech Psychiatry: normal affect, normal mood Results Findings/Data: Laboratory Tests 09/22 09/22 0824 0352 Chemistry Sodium (134 - 147 mmol/L) 139 Potassium (3.4 - 5.0 mmol/L) 3.9 Chloride (100 - 108 mmol/L) 103 Carbon Dioxide (21 - 32 mmol/L) 30 Anion Gap (4.0 - 15.0 GAP calc) 6.0 BUN (7 - 18 MG/DL) 39 H Creatinine (0.6 - 1.0 MG/DL) 1.0 Glomerular Filtr Rate (>60 estGFR) 55 L Glucose (70 - 110 MG/DL) 108 POC Glucose (70 - 110 mg/dL) 83 Calcium (8.5 - 10.1 MG/DL) 8.8 Laboratory Tests 09/22 Hematology WBC (3.5 - 11.0 K/mm3) 11.6 H RBC (4.70 - 6.10 M/mm3) 3.58 L Hgb (10.4 - 14.9 G/DL) 10.7 9.7 L Hct (31.5 - 44.1 %) 31.7 28.8 L MCV (84.5 - 98.6 Fl) 88.5 MCH (27.0 - 34.2 pg) 29.9 MCHC (31.5 - 34.0 G/DL) 33.8 RDW (11.5 - 14.5 SD) 13.9 Plt Count (150 - 450 K/mm3) 141 L MPV (7.0 - 10.5 fL) 10.60 H Neut % (Auto) (40 - 76 %) 86.8 H Lymph % (Auto) (20.5 - 51.1 %) 5.0 L [place] % (Auto) (1.7 - 9.3 %) 6.8 Eos % (Auto) (0.0 - 6.0 %) 0.8 Baso % (Auto) (0.0 - 2.0 %) 0.3 Neut # (Auto) (1.8 - 7.6 K/mm3) 10.0 H Lymph # (Auto) (0.6 - 3.2 K/mm3) 0.6 [place] # (Auto) (0.3 - 1.1 K/mm3) 0.8 Eos # (Auto) (0.0 - 0.4 K/mm3) 0.1 Baso # (Auto) (0.0 - 0.1 K/mm3) 0.0 Abs Immat Gran (auto) (0.00 - 0.03 x10 3/uL) 0. 04 H Add Manual Diff (CRITERIA DIFF/SCN) NO Immature Gran % (0.0 - 5.0 %) 0.3 Nucleated RBC % (0.0 - 1.0 /100WBC%) 0.0 Radiology data: Recent Impressions: RADIOLOGY - XR CHEST 1 V 09/22 1010 Report Impression - Status: SIGNED Entered: 09/22/2022 1050 IMPRESSION: Stable chest. Impression By: [email or web address] - Kiersten Padilla MD Diagnosis, Assessment Plan Free Text DxA P Notes Free text DxA P notes: 87 y/o female with PMHx of H TN, HLD, COPD, paroxysmal Afib, sick sinus syndrome, tachybrady syndome admitted for: #Paroxysmal Afib, sick sinus syndrome, tachybrad y syndrome s/p PPM placement s/p PPM placement by Cardiology Dr. 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 Pain control with Tylenol/Tramadol PRN Continue home coreg Hold home Eliquis due to anemia with possible he mothorax #Complex moderate left pleural effusion / hemoth orax, s/p R sided Cx tube in place with 600c of bloody fl uid removed - appreciate pulm medicine, pain control #Acute normocytic anemia, possibly due to acute blood loss with possible hemothorax being transfused PRBCs today #Hypertension Continue home coreg, losartan IV hydralazine PRN #Hx of COPD Not in acute exacerbation Duoneb tx PRN DVT prophylaxis with SCDs, held home Eliquis due to anemia with possible hemothorax Full code Ct tube in place , called and left msg for april Rooney [phone] Electronically Signed by Tejinder Toribio MD on 0 09/22/22 at 1409 RPT #: [id number] END OF REPORT 2022-09-22 09:47:00-00:00 [facility] ([facility] Pulmonology Progress Note REPORT#:[id number] REPORT STATUS: Signed DATE:09/22/22 TIME:946 PATIENT: LESLEY BREAUX UNIT #: [id number] ROOM/BED: [place] [address] : 36 AGE: 87 SEX: F ATTEND: Tuan Ortega MD Cardiology ADM AUTHOR: Mauro Arce MD * ALL edits or amendments must be made on the [employer]/computer document * Subjective Chief complaint: less Left-sided chest pain, shortness of breath HPI: Pleasant 87-year-old lady who underwent pacemake r placement yesterday for tachybradycardia syndrome. She was having more shortnes s of breath and left-sided chest pain for which a CT angiogram of the chest was done, see full report . Images reviewed and discussed with patient and cheyanne hoover. There is a small to moderate size left pleural effusion with different densities suggesting possible blood product. There are als o chronic appearing reticular nodular, tree-in-bud type peripheral mostly lowe r zone infiltrates right more than left, no prior CT images to compare. The patient denies much in the way of chronic sp utum fevers chills sweats or significant weight loss. The patient has emphysema has seen pulmo abisai doctors in the outpatient setting at [facility] but never smoked. Except described above, review of systems x14 is negative and normal. Objective General VS/I O: Last Documented: Result Date Time Temp 36.8 09/23 823 Pulse Ox 100 09/22 726 FiO2 28 09/22 726 O2 Delivery Nasal cannula 09/22 726 O2 Flow Rate 2 09/22 726 B/P 109/52 09/22 629 B/P Mean 75 09/22 629 Pulse 78 09/22 629 Resp 57 09/22 629 24 hour I O ending at 0700: 09/22 0700 09/21 1900 Intake Total 890.00 50 Output Total 500 1025 Balance 390.00 -975 Intake, IV 140.00 50 Intake, Oral 50 Intake, 700 Packed Cells Number 2 Bowel Movements Output, Chest 50 675 Tube Drainage Output, Urine 450 350 PATIENT WEIGHT: Weight (lb): 99 Weight (oz): 3.33 Weight (kg): 45.000 Medications: Active Meds + DC'd Last 24 Hrs Hydromorphone HCl (DILAUDID) 0.5 MG Q6H PRN PRN IV Metoprolol Tartrate (LOPRESSOR) 5 MG Q6H PRN PRN IV (CAN) Sodium Chloride (0.9% Sodium Chloride) 500 ML CHRISTOPHER JEAN MARIE IV (CAN) Sodium Chloride (SODIUM CHLORIDE) 10 ML ASDIR IV Sodium Chloride (0.9% Sodium Chloride) 500 ML ON CE ONE IV Hydromorphone HCl (DILAUDID) 0.25 MG ONCE ONE IV (DC) Hydromorphone HCl (DILAUDID) 0.5 MG ONCE ONE IV (DC) Zolpidem Tartrate (AMBIEN) 5 MG BEDTIME PRN PRN PO Acetylcysteine (MUCOMYST 20% 4 ML) 200 MG RTQ6H NEB Cefazolin Sodium (KEFZOL) 1 GM Q8HR IV Sterile Water (WATER FOR INJECTION) 10 ML Iopamidol (ISOVUE-300) 100 ML ONCE PRN IV Sodium Chloride (0.9% Sodium Chloride) 50 ML ONC E PRN IV Tramadol HCl (ULTRAM) 25 MG Q4H PRN PRN PO Albuterol/Ipratropium (DUONEB) 3 ML RTQ6H PRN NV N NEB Iopamidol (ISOVUE-370) 100 ML ONCE PRN IV Losartan Potassium (COZAAR) 12.5 MG DAILY PO Atorvastatin Calcium (LIPITOR) 10 MG BEDTIME PO Carvedilol (COREG) 3.125 MG DAILY PO Sertraline HCl (ZOLOFT) 25 MG DAILY PO Acetaminophen (TYLENOL) 650 MG Q4H PRN PRN PO Ondansetron HCl (ZOFRAN ODT) 4 MG Q8H PRN PRN PO Sodium Chloride (SODIUM CHLORIDE) SALINE FLUSH ASDIR PRN IV Physical Exam General appearance: alert, awake Head/eyes: atraumatic, normocephalic, normal con junctiva/sclera ENT: ENT: moist mucosal membranes, normal pharynx Neck: non-tender, supple/no meningismus Cardiovascular: normal S1/S2, regular rate rhyth m Respiratory/chest: decreased breath sounds, on o xygen, rales, bandage, sling Abdomen: soft, non-tender Extremities: edema, no clubbing, no cyanosis Musculoskeletal: normal inspection, no muscle sp asm Neuro/ENGINEERING INSPECTION ASSISTANT: alert, oriented X 3, no motor deficit s Skin: dry, intact Lymphatics: neck normal, no lymphadenopathy Results Findings/Data: Laboratory Tests 09/22/22351: [Embedded Image Not Available] 09/21/222002: [Embedded Image Not Available] Laboratory Tests 09/22 0352 Chemistry Sodium (134 - 147 mmol/L) 139 Potassium (3.4 - 5.0 mmol/L) 3.9 Chloride (100 - 108 mmol/L) 103 Carbon Dioxide (21 - 32 mmol/L) 30 Anion Gap (4.0 - 15.0 GAP calc) 6.0 BUN (7 - 18 MG/DL) 39 H Creatinine (0.6 - 1.0 MG/DL) 1.0 Glomerular Filtr Rate (>60 estGFR) 55 L Glucose (70 - 110 MG/DL) 108 POC Glucose (70 - 110 mg/dL) 83 Calcium (8.5 - 10.1 MG/DL) 8.8 Laboratory Tests 09/22 Hematology WBC (3.5 - 11.0 K/mm3) 11.6 H RBC (4.70 - 6.10 M/mm3) 3.58 L Hgb (10.4 - 14.9 G/DL) 10.7 9.7 L Hct (31.5 - 44.1 %) 31.7 28.8 L MCV (84.5 - 98.6 Fl) 88.5 MCH (27.0 - 34.2 pg) 29.9 MCHC (31.5 - 34.0 G/DL) 33.8 RDW (11.5 - 14.5 SD) 13.9 Plt Count (150 - 450 K/mm3) 141 L MPV (7.0 - 10.5 fL) 10.60 H Neut % (Auto) (40 - 76 %) 86.8 H Lymph % (Auto) (20.5 - 51.1 %) 5.0 L [place] % (Auto) (1.7 - 9.3 %) 6.8 Eos % (Auto) (0.0 - 6.0 %) 0.8 Baso % (Auto) (0.0 - 2.0 %) 0.3 Neut # (Auto) (1.8 - 7.6 K/mm3) 10.0 H Lymph # (Auto) (0.6 - 3.2 K/mm3) 0.6 [place] # (Auto) (0.3 - 1.1 K/mm3) 0.8 Eos # (Auto) (0.0 - 0.4 K/mm3) 0.1 Baso # (Auto) (0.0 - 0.1 K/mm3) 0.0 Abs Immat Gran (auto) (0.00 - 0.03 x10 3/uL) 0. 04 H Add Manual Diff (CRITERIA DIFF/SCN) NO Immature Gran % (0.0 - 5.0 %) 0.3 Nucleated RBC % (0.0 - 1.0 /100WBC%) 0.0 Radiology data: Recent Impressions: ULTRASOUND - US CHST W/MEDIASTINUM 09/21 1000 Report Impression - Status: SIGNED Entered: 09/21/2022 1439 IMPRESSION: There is a small to moderate complex left pleura l effusion. Impression By: Cinthia Mart RADIOLOGY - XR CHEST 1 V 09/21 1222 Report Impression - Status: SIGNED Entered: 09/21/2022 1313 IMPRESSION: 1. Emphysematous changes. 2. Improvement of bilateral infiltrate. 3. Interval placement of left pigtail catheter p lacement. No pneumothorax. Impression By: BrettHPD - Bandar Reinaldo Kirby M.D. Diagnosis, Assessment Plan Free Text A P: Impression 1. Left pleural effusion apparently new blood la yering densities, unclear etiology 2. Chronic appearing lung parenchymal changes, r ecommend outpatient follow-up Evaluation, she can follow-up with her pulmonary doctor that has she has recently seen in the office 3. Status post pacemaker, tachybradycardia syndr ome, history of atrial fibrillation 4. Emphysema 5. Hypertension 6. Lidocaine allergy Discussion The patient is allergic to lidocaine, states xiomara t she developed diffuse rash, hives, welts however this wa s many years ago after a dental procedure but she is not sure of the exact details. I spoke with nursing staff as well as ph armacist regarding alternative topical anesthetics of a different class than lidocaine however this is not available here. Due to patient's poor respiratory status a nd lack of monitoring and resources of the weekend wou ld like to avoid systemic sedation as was done with pacemaker placement. She is also allergic to opi ates. Recommendation 1. Consultation with interventional radiology an d pharmacy and possibly anesthesia to conduct left diagnostic and therap eutic thoracentesis tomorrow. She will need closer monitoring. 2. Send pleural fluid for analysis 3. Follow-up imaging 4. Patient advised to follow-up with her pulmona ry doctor in the outpatient setting in regards to the abnormal CT chest that seen her as far as the lung parenchymal changes 09/20 Reviewed her imaging studies evidence of moderat e effusion with possible left lower lobe atelectasis Both do not explain the drop in hemoglobin 4 g We will order CT abdomen and pelvis PPI IV Chest PT using a flutter device and Mucomyst twi ce daily Thoracentesis by IR ordered Incentive spirometry IV antibiotics Follow-up imaging studies of the chest 09/21 Patient has severe pain with continuing to have dropping hemoglobin I did an ultrasound showed evidence of effusion I placed chest tube Bloody fluid was noted I drained [address] under suction for the next 24 hour s If stable in a.m. we will remove to I give the patient Dilaudid 0.25 mg We will give 2 units packed RBC 09/22 sp severe pain with continuing to have dropping hemoglobin I did an ultrasound showed evidence of effusion sp[ chest tube sp blood tranusion stable HH follow up CXR Follow up IO Electronically Signed by Mauro Arce MD on 09/07 07/30 at 0952 [facility] #: [id number] END OF REPORT 2022-09-21 13:52:00-00:00 [facility] ([facility]) Hospitalist Progress Note REPORT#:[id number] REPORT STATUS: Signed DATE:09/21/22 TIME:1352 PATIENT: LESLEY BREAUX UNIT #: [id number] ROOM/BED: 310-1 : 36 AGE: 87 SEX: F ATTEND: Tuan Ortega MD Cardiology ADM AUTHOR: Tejinder Toribio MD * ALL edits or amendments must be made on the el [employer]/computer document * Subjective Chief complaint: c/p R sided chest pain HPI: pt appears weak and frail today, c/o intermitten t dizziness telemetry reviewed, pt has short intermittent pa uses with HR as low as 31, cardiology notified labs reviewed, Hgb trending down to 8.1 from 12. 2 09/18/22 will upgrade to IMCU for closer monitoring Objective General VS/I O: Vital Signs: Date Time Temp Pulse Resp B/P B/P Pulse O2 O2 F low FiO2 Mean Ox Delivery Rate 09/21 1000 81 21 117/56 81 98 09/21 0900 79 12 110/51 74 96 09/21 0845 96 Nasal 2 28 cannula 09/21 08 98.2 Nasal 2 cannula 09/21 0800 78 15 101/48 69 95 09/21 0700 75 24 107/52 75 98 09/21 0500 77 19 106/49 71 96 09/21 0412 98.6 09/21 0412 17 105/51 09/21 0400 82 13 96 09/21 0200 83 50 105/51 74 96 09/21 0000 76 29 109/51 74 97 09/20 2334 99.9 09/20 2239 29 09/20 2215 14 09/20 2200 78 112/56 81 100 09/20 2100 77 15 137/61 88 98 09/20 2050 98.1 09/20 2000 Nasal 2 cannula 09/20 2000 79 22 164/69 99 100 09/20 1954 100 Nasal 2 28 cannula 09/20 1550 99.0 74 18 115/55 75.1 89 24 hour I O ending at 0700: 09/21 0700 09/20 1900 Intake Total 260.00 420 Output Total 400 4 Balance -140.00 416 Intake, IV 40.00 Intake, Oral 220 420 Number 0 Incontinent Voids Output, Urine 400 4 PATIENT WEIGHT: Weight (lb): 99 Weight (oz): 3.33 Weight (kg): 45.000 Dietitian nutrition assessment The data set between the solid lines has been im ported from the dietitian's assessment. BMI Calculated: 19.4 Nutrition related diagnosis: Nutrition diagnosis details: Nutrition problem: Nutrition etiology: Nutrition signs and symptoms: Nutrition prescription: Dietitian name: Assessment completed: Physical Exam General appearance: awake Head/Eyes: atraumatic, normocephalic ENT: poor dentition, moist mucosal membranes Cardiovascular: normal heart sounds, regular rat e rhythm Respiratory: decreased breath sounds, on oxygen, symmetric expansion, no distress, PPM site c/d/i, no overlying edema, er ythema or warmth Abdomen: non-tender, soft Extremities: moves all, no edema Neuro/ENGINEERING INSPECTION ASSISTANT: alert, normal speech Psychiatry: normal affect, normal mood Results Findings/Data: Laboratory Tests 09/21 032 Chemistry Sodium (134 - 147 mmol/L) 138 Potassium (3.4 - 5.0 mmol/L) 3.9 Chloride (100 - 108 mmol/L) 102 Carbon Dioxide (21 - 32 mmol/L) 33 H Anion Gap (4.0 - 15.0 GAP calc) 3.0 L BUN (7 - 18 MG/DL) 29 H Creatinine (0.6 - 1.0 MG/DL) 0.9 Glomerular Filtr Rate (>60 estGFR) >=60 max est imate Glucose (70 - 110 MG/DL) 99 Calcium (8.5 - 10.1 MG/DL) 8.7 Laboratory Tests 09/210 1856 Hematology WBC (3.5 - 11.0 K/mm3) 9.1 RBC (4.70 - 6.10 M/mm3) 2.54 L Hgb (10.4 - 14.9 G/DL) 7.6 L 8.7 L Hct (31.5 - 44.1 %) 23.7 L 26.2 L MCV (84.5 - 98.6 Fl) 93.3 MCH (27.0 - 34.2 pg) 29.9 MCHC (31.5 - 34.0 G/DL) 32.1 RDW (11.5 - 14.5 SD) 13.3 Plt Count (150 - 450 K/mm3) 141 L MPV (7.0 - 10.5 fL) 10.20 Neut % (Auto) (40 - 76 %) 75.8 Lymph % (Auto) (20.5 - 51.1 %) 12.3 L [place] % (Auto) (1.7 - 9.3 %) 7.9 Eos % (Auto) (0.0 - 6.0 %) 3.3 Baso % (Auto) (0.0 - 2.0 %) 0.3 Neut # (Auto) (1.8 - 7.6 K/mm3) 6.9 Lymph # (Auto) (0.6 - 3.2 K/mm3) 1.1 [place] # (Auto) (0.3 - 1.1 K/mm3) 0.7 Eos # (Auto) (0.0 - 0.4 K/mm3) 0.3 Baso # (Auto) (0.0 - 0.1 K/mm3) 0.0 Abs Immat Gran (auto) (0.00 - 0.03 x10 3/uL) 0. 04 H Add Manual Diff (CRITERIA DIFF/SCN) NO Immature Gran % (0.0 - 5.0 %) 0.4 Nucleated RBC % (0.0 - 1.0 /100WBC%) 0.0 Radiology data: Recent Impressions: CAT SCAN - CT ABD PELVIS W/O CONT 09/20 1420 Report Impression - Status: SIGNED Entered: 09/20/2022 1441 IMPRESSION: No acute abnormality in the abdomen or pelvis Left pleural effusion with dependent high densit y material, and scattered tree-in-bud opacities in the visualize d portions of both lower lungs, also stable. Other findings as above Impression By: BrettAGRubia Juares M.D. RADIOLOGY - XR CHEST 1 V 09/21 1222 Report Impression - Status: SIGNED Entered: 09/21/2022 1313 IMPRESSION: 1. Emphysematous changes. 2. Improvement of bilateral infiltrate. 3. Interval placement of left pigtail catheter p lacement. No pneumothorax. Impression By: BrettHPD Jessika Kirby M.D. Diagnosis, Assessment Plan Free Text DxA P Notes Free text DxA P notes: 87 y/o female with PMHx of H TN, HLD, COPD, paroxysmal Afib, sick sinus syndrome, tachybrady syndome admitted for: #Paroxysmal Afib, sick sinus syndrome, tachybrad y syndrome s/p PPM placement s/p PPM placement by Cardiology Dr. 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 Pain control with Tylenol/Tramadol PRN Continue home coreg Hold home Eliquis due to anemia with possible he mothorax #Complex moderate left pleural effusion / hemothorax, s/p R sided Cx tube with 600c of bloody fluid removed - appreciate pulm m edicine, pain control #Acute normocytic anemia, possibly due to acute blood loss with possible hemothorax being transfused PRBCs today #Hypertension Continue home coreg, losartan IV hydralazine PRN #Hx of COPD Not in acute exacerbation Duoneb tx PRN DVT prophylaxis with SCDs, hold home Eliquis due to anemia with possible hemothorax Full code Electronically Signed by Tejinder Toribio MD on 0 09/21/22 at 1354 RPT #: [id number] END OF REPORT 2022-09-21 13:39:00-00:00 [facility] ([facility]) DT Operative Note REPORT#:[id number] REPORT STATUS: Signed DATE:09/21/22 TIME:1339 PATIENT: LESLEY BREAUX UNIT #: [id number] ROOM/BED: [place] [address] : 36 AGE: 87 SEX: F ATTEND: Tuan Ortega MD Cardiology ADM AUTHOR: Mauro Arce MD * ALL edits or amendments must be made on the el [employer]/computer document * Operative Report Operative Note Note: Procedure note preoperative diagnosis: Complicated pleural effu ar left Postoperative diagnosis: Hemothorax Procedure : Chest tube insertion under ultrasoun d guidance procedure description After reviewing the imaging studies we obtained consent from the patient explained risks and benefits of the procedure. A fter obtaining the consent we positioned the patient prope rly for the procedure aseptic techniques were used, we utilized 1% lidocaine for local anesthesia. P atient was positioned and we introduced the lidocaine nee dle to the subcutaneous tissue. A 1 cm cut was done using the blade then insertion of the gu iding needle was done into the pleural space. After aspirating the pleural flui d we introduced a guidewire, a dilator was used for 14 German with no complications, a Chente chest tube was inserted under the guidance of the guidewire the chest tu be was secured and no complications or bleeding was noted during the p rocedure. Findings. Bloody content was noted Diagnosis and plan 1. Left hemothorax; will place tube under suctio n and monitor output. Electronically Signed by Mauro Arce MD on 09/07 06/29 at 1340 RPT #: [id number] END OF REPORT 2022-09-21 13:38:00-00:00 [facility] ([facility] Pulmonology Progress Note REPORT#:[id number] REPORT STATUS: Signed DATE:09/21/22 TIME:1338 PATIENT: LESLEY BREAUX UNIT #: [id number] ROOM/BED: [place] [address] : 36 AGE: 87 SEX: F ATTEND: Tuan Ortega MD Cardiology ADM AUTHOR: Mauro Arce MD * ALL edits or amendments must be made on the [employer]/computer document * Subjective Chief complaint: Left-sided chest pain, shortness of breath HPI: Pleasant 87-year-old lady who underwent pacemake r placement yesterday for tachybradycardia syndrome. She was having more shortnes s of breath and left-sided chest pain for which a CT angiogram of the chest was done, see full report . Images reviewed and discussed with patient and cheyanne hoover. There is a small to moderate size left pleural effusion with different densities suggesting possible blood product. There are als o chronic appearing reticular nodular, tree-in-bud type peripheral mostly lowe r zone infiltrates right more than left, no prior CT images to compare. The patient denies much in the way of chronic sp utum fevers chills sweats or significant weight loss. The patient has emphysema has seen pulmo abisai doctors in the outpatient setting at [facility] but never smoked. Except described above, review of systems x14 is negative and normal. Review of Systems ROS All systems rev neg: except as marked Objective General VS/I O: Last Documented: Result Date Time Pulse Ox 98 09/21 1000 B/P 117/56 09/21 1000 B/P Mean 81 09/21 1000 Pulse 81 09/21 1000 Resp 21 09/21 1000 FiO2 28 09/21 0845 O2 Delivery Nasal cannula 09/21 0845 O2 Flow Rate 2 09/21 0845 Temp 36.8 09/21 0800 24 hour I O ending at 0700: 09/21 0700 09/20 1900 Intake Total 260.00 420 Output Total 400 4 Balance -140.00 416 Intake, IV 40.00 Intake, Oral 220 420 Number 0 Incontinent Voids Output, Urine 400 4 PATIENT WEIGHT: Weight (lb): 99 Weight (oz): 3.33 Weight (kg): 45.000 Medications: Active Meds + DC'd Last 24 Hrs Sodium Chloride (SODIUM CHLORIDE) 10 ML ASDIR IV Sodium Chloride (0.9% Sodium Chloride) 500 ML ON CE ONE IV Hydromorphone HCl (DILAUDID) 0.25 MG ONCE ONE IV (DC) Hydromorphone HCl (DILAUDID) 0.5 MG ONCE ONE IV (DC) Zolpidem Tartrate (AMBIEN) 5 MG BEDTIME PRN PRN PO Acetylcysteine (MUCOMYST 20% 4 ML) 200 MG RTQ6H NEB Cefazolin Sodium (KEFZOL) 1 GM Q8HR IV Sterile Water (WATER FOR INJECTION) 10 ML Iopamidol (ISOVUE-300) 100 ML ONCE PRN IV Sodium Chloride (0.9% Sodium Chloride) 50 ML ONC E PRN IV Tramadol HCl (ULTRAM) 25 MG Q4H PRN PRN PO Albuterol/Ipratropium (DUONEB) 3 ML RTQ6H PRN NV N NEB Iopamidol (ISOVUE-370) 100 ML ONCE PRN IV Losartan Potassium (COZAAR) 12.5 MG DAILY PO Atorvastatin Calcium (LIPITOR) 10 MG BEDTIME PO Carvedilol (COREG) 3.125 MG DAILY PO Sertraline HCl (ZOLOFT) 25 MG DAILY PO Acetaminophen (TYLENOL) 650 MG Q4H PRN PRN PO Ondansetron HCl (ZOFRAN ODT) 4 MG Q8H PRN PRN PO Sodium Chloride (SODIUM CHLORIDE) SALINE FLUSH ASDIR PRN IV Physical Exam Head/eyes: atraumatic, normocephalic, normal con junctiva/sclera ENT: ENT: moist mucosal membranes, normal pharynx Neck: non-tender, supple/no meningismus Cardiovascular: normal S1/S2, regular rate rhyth m Respiratory/chest: decreased breath sounds, on o xygen, rales, bandage, sling Abdomen: soft, non-tender Extremities: edema, no clubbing, no cyanosis Musculoskeletal: normal inspection, no muscle sp asm Neuro/ENGINEERING INSPECTION ASSISTANT: alert, oriented X 3, no motor deficit s Skin: dry, intact Lymphatics: neck normal, no lymphadenopathy Results Findings/Data: Laboratory Tests 09/21/22319: [Embedded Image Not Available] 09/20/221855: [Embedded Image Not Available] Laboratory Tests 09/22 319 Chemistry Sodium (134 - 147 mmol/L) 138 Potassium (3.4 - 5.0 mmol/L) 3.9 Chloride (100 - 108 mmol/L) 102 Carbon Dioxide (21 - 32 mmol/L) 33 H Anion Gap (4.0 - 15.0 GAP calc) 3.0 L BUN (7 - 18 MG/DL) 29 H Creatinine (0.6 - 1.0 MG/DL) 0.9 Glomerular Filtr Rate (>60 estGFR) >=60 max est imate Glucose (70 - 110 MG/DL) 99 Calcium (8.5 - 10.1 MG/DL) 8.7 Laboratory Tests 09/21 Hematology WBC (3.5 - 11.0 K/mm3) 9.1 RBC (4.70 - 6.10 M/mm3) 2.54 L Hgb (10.4 - 14.9 G/DL) 7.6 L 8.7 L Hct (31.5 - 44.1 %) 23.7 L 26.2 L MCV (84.5 - 98.6 Fl) 93.3 MCH (27.0 - 34.2 pg) 29.9 MCHC (31.5 - 34.0 G/DL) 32.1 RDW (11.5 - 14.5 SD) 13.3 Plt Count (150 - 450 K/mm3) 141 L MPV (7.0 - 10.5 fL) 10.20 Neut % (Auto) (40 - 76 %) 75.8 Lymph % (Auto) (20.5 - 51.1 %) 12.3 L [place] % (Auto) (1.7 - 9.3 %) 7.9 Eos % (Auto) (0.0 - 6.0 %) 3.3 Baso % (Auto) (0.0 - 2.0 %) 0.3 Neut # (Auto) (1.8 - 7.6 K/mm3) 6.9 Lymph # (Auto) (0.6 - 3.2 K/mm3) 1.1 [place] # (Auto) (0.3 - 1.1 K/mm3) 0.7 Eos # (Auto) (0.0 - 0.4 K/mm3) 0.3 Baso # (Auto) (0.0 - 0.1 K/mm3) 0.0 Abs Immat Gran (auto) (0.00 - 0.03 x10 3/uL) 0. 04 H Add Manual Diff (CRITERIA DIFF/SCN) NO Immature Gran % (0.0 - 5.0 %) 0.4 Nucleated RBC % (0.0 - 1.0 /100WBC%) 0.0 Radiology data: Recent Impressions: CAT SCAN - CT ABD PELVIS W/O CONT 09/20 1420 Report Impression - Status: SIGNED Entered: 09/20/2022 1441 IMPRESSION: No acute abnormality in the abdomen or pelvis Left pleural effusion with dependent high densit y material, and scattered tree-in-bud opacities in the visualize d portions of both lower lungs, also stable. Other findings as above Impression By: [email or web address] - Anabela Juares M.D. RADIOLOGY - XR CHEST 1 V 09/21 1222 Report Impression - Status: SIGNED Entered: 09/21/2022 1313 IMPRESSION: 1. Emphysematous changes. 2. Improvement of bilateral infiltrate. 3. Interval placement of left pigtail catheter p lacement. No pneumothorax. Impression By: BrettHPAndrew Kirby M.D. Diagnosis, Assessment Plan Free Text A P: Impression 1. Left pleural effusion apparently new blood la yering densities, unclear etiology 2. Chronic appearing lung parenchymal changes, r ecommend outpatient follow-up Evaluation, she can follow-up with her pulmonary doctor that has she has recently seen in the office 3. Status post pacemaker, tachybradycardia syndr ome, history of atrial fibrillation 4. Emphysema 5. Hypertension 6. Lidocaine allergy Discussion The patient is allergic to lidocaine, states xiomara t she developed diffuse rash, hives, welts however this wa s many years ago after a dental procedure but she is not sure of the exact details. I spoke with nursing staff as well as jeimy regarding alternative topical anesthetics of a different class than lidocaine however this is not available here. Due to patient's poor respiratory status a nd lack of monitoring and resources of the weekend wou ld like to avoid systemic sedation as was done with pacemaker placement. She is also allergic to opi ates. Recommendation 1. Consultation with interventional radiology an d pharmacy and possibly anesthesia to conduct left diagnostic and therap eutic thoracentesis tomorrow. She will need closer monitoring. 2. Send pleural fluid for analysis 3. Follow-up imaging 4. Patient advised to follow-up with her pulmona ry doctor in the outpatient setting in regards to the abnormal CT chest that seen her as far as the lung parenchymal changes 09/20 Reviewed her imaging studies evidence of moderat e effusion with possible left lower lobe atelectasis Both do not explain the drop in hemoglobin 4 g We will order CT abdomen and pelvis PPI IV Chest PT using a flutter device and Mucomyst twi ce daily Thoracentesis by IR ordered Incentive spirometry IV antibiotics Follow-up imaging studies of the chest 09/21 Patient has severe pain with continuing to have dropping hemoglobin I did an ultrasound showed evidence of effusion I placed chest tube Bloody fluid was noted I drained [address] under suction for the next 24 hour s If stable in a.m. we will remove to I give the patient Dilaudid 0.25 mg We will give 2 units packed RBC Electronically Signed by Mauro Arce MD on 09/07 06/29 at 1339 RPT #: [id number] END OF REPORT 2022-09-20 14:03:00-00:00 [facility] ([facility]) Pulmonology Progress Note REPORT#:[id number] REPORT STATUS: Signed DATE:09/20/22 TIME:1403 PATIENT: LESLEY BREAUX UNIT #: [id number] RO[address]BED: [address] : [address] AGE: 87 SEX: F ATTEND: Tuan Ortega MD Cardiology ADM AUTHOR: Mauro Arce MD * ALL edits or amendments must be made on the el [email or web address]/computer document * Subjective Chief complaint: Left-sided chest pain, shortness of breath HPI: Pleasant 87-year-old lady who underwent pacemake r placement yesterday for tachybradycardia syndrome. She was having more shortnes s of breath and left-sided chest pain for which a CT angiogram of the chest was done, see full report . Images reviewed and discussed with patient and cheyanne hoover. There is a small to moderate size left pleural effusion with different densities suggesting possible blood product. There are als o chronic appearing reticular nodular, tree-in-bud type peripheral mostly lowe r zone infiltrates right more than left, no prior CT images to compare. The patient denies much in the way of chronic sp utum fevers chills sweats or significant weight loss. The patient has emphysema has seen pulmo paly doctors in the outpatient setting at [facility] but never smoked. Except described above, review of systems x14 is negative and normal. Objective General VS/I O: Last Documented: Result Date Time Pulse Ox 96 09/20 1215 B/P 164/64 09/20 1215 B/P Mean 97.4 09/20 1215 Temp 36.7 09/20 1215 Pulse 84 09/20 1215 Resp 18 09/20 1215 FiO2 21 09/20 0932 O2 Delivery Room air 09/20 0932 O2 Flow Rate 2 09/20 1999 24 hour I O ending at 0700: 09/20 0700 09/19 1900 Intake Total 750 Output Total Balance 750 Intake, Oral 750 Number Voids 1 3 PATIENT WEIGHT: Weight (lb): 99 Weight (oz): 3.33 Weight (kg): 45.000 Medications: Active Meds + DC'd Last 24 Hrs Cefazolin Sodium (KEFZOL) 1 GM Q8HR IV Sterile Water (WATER FOR INJECTION) 10 ML Iopamidol (ISOVUE-300) 0 .STK-MED ONE .ROUTE (DC ) Iopamidol (ISOVUE-300) 100 ML ONCE PRN IV Sodium Chloride (0.9% Sodium Chloride) 50 ML ONC E PRN IV Tramadol HCl (ULTRAM) 25 MG Q4H PRN PRN PO Albuterol/Ipratropium (DUONEB) 3 ML RTQ6H PRN NV N NEB Iopamidol (ISOVUE-370) 100 ML ONCE PRN IV Losartan Potassium (COZAAR) 12.5 MG DAILY PO Atorvastatin Calcium (LIPITOR) 10 MG BEDTIME PO Zolpidem Tartrate (AMBIEN) 5 MG BEDTIME PRN PO ( DC) Carvedilol (COREG) 3.125 MG DAILY PO Sertraline HCl (ZOLOFT) 25 MG DAILY PO Acetaminophen (TYLENOL) 650 MG Q4H PRN PRN PO Ondansetron HCl (ZOFRAN ODT) 4 MG Q8H PRN PRN PO Sodium Chloride (SODIUM CHLORIDE) SALINE FLUSH ASDIR PRN IV Physical Exam Head/eyes: atraumatic, normocephalic, normal con junctiva/sclera ENT: ENT: moist mucosal membranes, normal pharynx Neck: non-tender, supple/no meningismus Cardiovascular: normal S1/S2, regular rate rhyth m Respiratory/chest: decreased breath sounds, on o xygen, rales, bandage, sling Abdomen: soft, non-tender Extremities: edema, no clubbing, no cyanosis Musculoskeletal: normal inspection, no muscle sp asm Neuro/ENGINEERING INSPECTION ASSISTANT: alert, oriented X 3, no motor deficit s Skin: dry, intact Lymphatics: neck normal, no lymphadenopathy Results Findings/Data: Laboratory Tests 09/20/22 1120: [Embedded Image Not Available] 09/20/22411: [Embedded Image Not Available] Laboratory Tests 09/21 411 Chemistry Sodium (134 - 147 mmol/L) 142 Potassium (3.4 - 5.0 mmol/L) 3.7 Chloride (100 - 108 mmol/L) 104 Carbon Dioxide (21 - 32 mmol/L) 36 H Anion Gap (4.0 - 15.0 GAP calc) 2.0 L BUN (7 - 18 MG/DL) 28 H Creatinine (0.6 - 1.0 MG/DL) 1.2 H Glomerular Filtr Rate (>60 estGFR) 44 L Glucose (70 - 110 MG/DL) 111 H Calcium (8.5 - 10.1 MG/DL) 8.6 Laboratory Tests 09/20 1120 Coagulation INR (0.8 - 1.2 INR Unit) 1.14 PT Patient/Control Mix (9.3 - 12.9 SECONDS) 12. 7 Laboratory Tests 09/20 09/20 1120 0412 Hematology WBC (3.5 - 11.0 K/mm3) 9.5 RBC (4.70 - 6.10 M/mm3) 2.69 L Hgb (10.4 - 14.9 G/DL) 8.2 L 8.1 L Hct (31.5 - 44.1 %) 25.4 L 24.6 L MCV (84.5 - 98.6 Fl) 91.4 MCH (27.0 - 34.2 pg) 30.1 MCHC (31.5 - 34.0 G/DL) 32.9 RDW (11.5 - 14.5 SD) 13.5 Plt Count (150 - 450 K/mm3) 154 MPV (7.0 - 10.5 fL) 10.60 H Neut % (Auto) (40 - 76 %) 72.8 Lymph % (Auto) (20.5 - 51.1 %) 14.0 L [place] % (Auto) (1.7 - 9.3 %) 8.6 Eos % (Auto) (0.0 - 6.0 %) 3.8 Baso % (Auto) (0.0 - 2.0 %) 0.4 Neut # (Auto) (1.8 - 7.6 K/mm3) 6.9 Lymph # (Auto) (0.6 - 3.2 K/mm3) 1.3 [place] # (Auto) (0.3 - 1.1 K/mm3) 0.8 Eos # (Auto) (0.0 - 0.4 K/mm3) 0.4 Baso # (Auto) (0.0 - 0.1 K/mm3) 0.0 Abs Immat Gran (auto) (0.00 - 0.03 x10 3/uL) 0. 04 H Add Manual Diff (CRITERIA DIFF/SCN) NO Immature Gran % (0.0 - 5.0 %) 0.4 Nucleated RBC % (0.0 - 1.0 /100WBC%) 0.0 Radiology data: Recent Impressions: RADIOLOGY - XR CHEST 1 V 09/20 1050 Report Impression - Status: SIGNED Entered: 09/20/2022 1123 IMPRESSION: There are minimal patchy opacities in the lungs bilaterally. This could be due to pneumonia. There is a small left pleural effusion. Compared to the prior exam, there has been littl e change. Impression By: [email or web address] - Terrence Chapman M.D . Diagnosis, Assessment Plan Free Text A P: Impression 1. Left pleural effusion apparently new blood la yering densities, unclear etiology 2. Chronic appearing lung parenchymal changes, r ecommend outpatient follow-up Evaluation, she can follow-up with her pulmonary doctor that has she has recently seen in the office 3. Status post pacemaker, tachybradycardia syndr ome, history of atrial fibrillation 4. Emphysema 5. Hypertension 6. Lidocaine allergy Discussion The patient is allergic to lidocaine, states xiomara t she developed diffuse rash, hives, welts however this wa s many years ago after a dental procedure but she is not sure of the exact details. I spoke with nursing staff as well as ph armacist regarding alternative topical anesthetics of a different class than lidocaine however this is not available here. Due to patient's poor respiratory status a nd lack of monitoring and resources of the weekend wou ld like to avoid systemic sedation as was done with pacemaker placement. She is also allergic to opi ates. Recommendation 1. Consultation with interventional radiology an d pharmacy and possibly anesthesia to conduct left diagnostic and therap eutic thoracentesis tomorrow. She will need closer monitoring. 2. Send pleural fluid for analysis 3. Follow-up imaging 4. Patient advised to follow-up with her pulmona ry doctor in the outpatient setting in regards to the abnormal CT chest that seen her as far as the lung parenchymal changes 09/20 Reviewed her imaging studies evidence of moderat e effusion with possible left lower lobe atelectasis Both do not explain the drop in hemoglobin 4 g We will order CT abdomen and pelvis PPI IV Chest PT using a flutter device and Mucomyst twi ce daily Thoracentesis by IR ordered Incentive spirometry IV antibiotics Follow-up imaging studies of the chest Electronically Signed by Mauro Arce MD on 09/07 05/30 at 1405 RPT #: [id number] END OF REPORT 2022-09-20 11:12:00[facility]00:[facility] REPORT#:[id number] REPORT STATUS: Signed DATE:09/20/22 TIME:1112 PATIENT: LESLEY BREAUX UNIT #: [id number] ROOM/BED: [place] [id number] : 36 AGE: 87 SEX: F ATTEND: Tuan Ortega MD Cardiology ADM AUTHOR: Ora Mackay * ALL edits or amendments must be made on the [employer]/computer document * Subjective Chief complaint: chest wall pain HPI: pt appears weak and frail today, c/o intermitten t dizziness telemetry reviewed, pt has short intermittent pa uses with HR as low as 31, cardiology notified labs reviewed, Hgb trending down to 8.1 from 12. 2 09/18/22 will upgrade to IMCU for closer monitoring Review of Systems Constitutional: Reports: generalized weakness. Denies: fever. Respiratory: Reports: SOB. Cardiovascular: Denies: chest pain. Neuro: Reports: dizziness. Objective General VS/I O: Vital Signs: Date Time Temp Pulse Resp B/P B/P Pulse O2 O2 F low FiO2 Mean Ox Delivery Rate 09/20 0932 92 Room air 09/20 0745 98.2 90 18 137/65 88.7 96 09/20 0401 98.1 75 16 121/66 84.2 99 Nasal cannula 09/19 2306 98.8 80 18 118/56 76.3 97 Nasal cannula 09/19 2131 92 Room air 09/19 2000 Nasal 2 cannula 09/19 1943 98.8 80 16 125/57 79.4 92 Nasal cannula 09/19 1640 98.1 76 15 147/70 95.5 97 Room air 09/19 1254 97.9 82 15 135/64 0.0 93 Nasal cannula 24 hour I O ending at 0700: 09/20 0700 09/19 1900 Intake Total 750 Output Total Balance 750 Intake, Oral 750 Number Voids 1 3 PATIENT WEIGHT: Weight (lb): 99 Weight (oz): 3.33 Weight (kg): 45.000 Medications: Active Meds + DC'd Last 24 Hrs Cefazolin Sodium (KEFZOL) 1 GM Q8HR IV Sterile Water (WATER FOR INJECTION) 10 ML Tramadol HCl (ULTRAM) 25 MG Q4H PRN PRN PO Albuterol/Ipratropium (DUONEB) 3 ML RTQ6H PRN NV N NEB Furosemide (LASIX 20MG INJ) 20 MG ONCE ONE IV (D C) Iopamidol (ISOVUE-370) 100 ML ONCE PRN IV Losartan Potassium (COZAAR) 12.5 MG DAILY PO Atorvastatin Calcium (LIPITOR) 10 MG BEDTIME PO Zolpidem Tartrate (AMBIEN) 5 MG BEDTIME PRN PO ( DC) Carvedilol (COREG) 3.125 MG DAILY PO Sertraline HCl (ZOLOFT) 25 MG DAILY PO Acetaminophen (TYLENOL) 650 MG Q4H PRN PRN PO Cefazolin Sodium (KEFZOL) 1 GM Q8H IV (DC) Sterile Water (WATER FOR INJECTION) 10 ML Ondansetron HCl (ZOFRAN ODT) 4 MG Q8H PRN PRN PO Sodium Chloride (SODIUM CHLORIDE) SALINE FLUSH ASDIR PRN IV Dietitian nutrition assessment The data set between the solid lines has been im ported from the dietitian's assessment. BMI Calculated: 19.4 Nutrition related diagnosis: Nutrition diagnosis details: Nutrition problem: Nutrition etiology: Nutrition signs and symptoms: Nutrition prescription: Dietitian name: Assessment completed: Physical Exam General appearance: chronically ill appe aring, frail, alert, no acute distress Head/Eyes: atraumatic, normocephalic ENT: poor dentition, moist mucosal membranes Cardiovascular: normal heart sounds, regular rat e rhythm Respiratory: decreased breath sounds, on oxygen, symmetric expansion, no distress, PPM site c/d/i, no overlying edema, er ythema or warmth Abdomen: non-tender, soft Extremities: moves all, no edema Neuro/ENGINEERING INSPECTION ASSISTANT: alert, normal speech Psychiatry: normal affect, normal mood Results Findings/Data: Laboratory Tests 09/21 411 Chemistry Sodium (134 - 147 mmol/L) 142 Potassium (3.4 - 5.0 mmol/L) 3.7 Chloride (100 - 108 mmol/L) 104 Carbon Dioxide (21 - 32 mmol/L) 36 H Anion Gap (4.0 - 15.0 GAP calc) 2.0 L BUN (7 - 18 MG/DL) 28 H Creatinine (0.6 - 1.0 MG/DL) 1.2 H Glomerular Filtr Rate (>60 estGFR) 44 L Glucose (70 - 110 MG/DL) 111 H Calcium (8.5 - 10.1 MG/DL) 8.6 Laboratory Tests 09/21 411 Hematology WBC (3.5 - 11.0 K/mm3) 9.5 RBC (4.70 - 6.10 M/mm3) 2.69 L Hgb (10.4 - 14.9 G/DL) 8.1 L Hct (31.5 - 44.1 %) 24.6 L MCV (84.5 - 98.6 Fl) 91.4 MCH (27.0 - 34.2 pg) 30.1 MCHC (31.5 - 34.0 G/DL) 32.9 RDW (11.5 - 14.5 SD) 13.5 Plt Count (150 - 450 K/mm3) 154 MPV (7.0 - 10.5 fL) 10.60 H Neut % (Auto) (40 - 76 %) 72.8 Lymph % (Auto) (20.5 - 51.1 %) 14.0 L [place] % (Auto) (1.7 - 9.3 %) 8.6 Eos % (Auto) (0.0 - 6.0 %) 3.8 Baso % (Auto) (0.0 - 2.0 %) 0.4 Neut # (Auto) (1.8 - 7.6 K/mm3) 6.9 Lymph # (Auto) (0.6 - 3.2 K/mm3) 1.3 [place] # (Auto) (0.3 - 1.1 K/mm3) 0.8 Eos # (Auto) (0.0 - 0.4 K/mm3) 0.4 Baso # (Auto) (0.0 - 0.1 K/mm3) 0.0 Abs Immat Gran (auto) (0.00 - 0.03 x10 3/uL) 0. 04 H Add Manual Diff (CRITERIA DIFF/SCN) NO Immature Gran % (0.0 - 5.0 %) 0.4 Nucleated RBC % (0.0 - 1.0 /100WBC%) 0.0 Diagnosis, Assessment Plan Free Text DxA P Notes Free text DxA P notes: 87 y/o female with PMHx of H TN, HLD, COPD, paroxysmal Afib, sick sinus syndrome, tachybrady syndome admitted for: #Paroxysmal Afib, sick sinus syndrome, tachybrad y syndrome s/p PPM placement s/p PPM placement by Cardiology Dr. 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 monitor under continuous telemetry Telemetry reviewed, pt is having intermittent pa uses with HR as low as 31, Cardiology notified Will upgrade to IMCU for closer monitoring Monitor PPM insertion site Pain control with Tylenol/Tramadol PRN Continue home coreg Hold home Eliquis due to anemia with possible he mothorax #Complex moderate left pleural effusion CTA Chest negative for PE, noted complex moderat e left pleural effusion, possible hemothorax Respiratory status stable, s upplemental O2 PRN to maintain SpO2 >92%, currently on 2L O2 Pulmonology following, recs for IR consult for d iagnostic and therapeutic thoracentesis Pt is allergic to lidocaine, may need anesthesia for procedure #Acute normocytic anemia, possibly due to acute blood loss with possible hemothorax Hgb trending down to 8.1 tod ay from 12.2 on 09/18/22, possible hemothorax on CTA Chest with plan for thoracentesis for further ev aluation Hold anticoagulation Monitor H/H q8hr, transfuse PRN for Hgb <7 #Hypertension Continue home coreg, losartan IV hydralazine PRN #Hx of COPD Not in acute exacerbation Duoneb tx PRN DVT prophylaxis with SCDs, hold home Eliquis due to anemia with possible hemothorax Full code at 1122 Electronically Signed by Tejinder Toribio MD on 0 09/20/22 at 1510 RPT #: [id number] END OF REPORT 2022-09-19 14:20:00-00:00 [facility] ([facility]) Pulmonary Consultation Note REPORT#:[id number] REPORT STATUS: Signed DATE:09/19/22 TIME:1420 PATIENT: LESLEY BREAUX UNIT #: [id number] ROOM/BED: [place] [id number] : 36 AGE: 87 SEX: F ATTEND: Tuan Ortega MD Cardiology ADM AUTHOR: Aaron Chavis MD * ALL edits or amendments must be made on the [employer] document * History of Present Illness HPI Chief complaint: Left-sided chest pain, shortness of breath HPI: Pleasant 87-year-old lady who underwent pacemake r placement yesterday for tachybradycardia syndrome. She was having more shortnes s of breath and left-sided chest pain for which a CT angiogram of the chest was done, see full report . Images reviewed and discussed with patient and cheyanne hoover. There is a small to moderate size left pleural effusion with different densities suggesting possible blood product. There are als o chronic appearing reticular nodular, tree-in-bud type peripheral mostly lowe r zone infiltrates right more than left, no prior CT images to compare. The patient denies much in the way of chronic sp utum fevers chills sweats or significant weight loss. The patient has emphysema has seen pulmo abisai doctors in the outpatient setting at [facility] but never smoked. Except described above, review of systems x14 is negative and normal. History - Adult longitudinal Family history: Reports: Heart disease, Hypertension. Smoking status for patients 13 years old or olde r: Never Smoker Allergies: Coded Allergies: fentanyl (Severe, COMA 09/16/22) Penicillins (Intermediate, HIVES 09/16/22) Sulfa (Sulfonamide Antibiotics) (Intermediate, M AKES HER PASS OUT 09/16/22) codeine (Intermediate, VOMITING 09/16/22) hydrocodone (Intermediate, VOMITING 09/16/22) meperidine (From DEMEROL) (Intermediate, THROW U P 09/16/22) morphine (Mild, HIVES 09/16/22) lidocaine (RASH-UNKNOWN 09/19/22) Objective Physical Exam Vitals: Laboratory Tests: 09/19 0437 Chemistry Sodium (134 - 147 mmol/L) 142 Potassium (3.4 - 5.0 mmol/L) 3.6 Chloride (100 - 108 mmol/L) 107 Carbon Dioxide (21 - 32 mmol/L) 31 Anion Gap (4.0 - 15.0 GAP calc) 4.0 BUN (7 - 18 MG/DL) 31 H Creatinine (0.6 - 1.0 MG/DL) 1.1 H Glomerular Filtr Rate (>60 estGFR) 49 L Glucose (70 - 110 MG/DL) 99 Calcium (8.5 - 10.1 MG/DL) 8.6 Hematology WBC (3.5 - 11.0 K/mm3) 6.0 RBC (4.70 - 6.10 M/mm3) 3.00 L Hgb (10.4 - 14.9 G/DL) 9.0 L Hct (31.5 - 44.1 %) 27.7 L MCV (84.5 - 98.6 Fl) 92.3 MCH (27.0 - 34.2 pg) 30.0 MCHC (31.5 - 34.0 G/DL) 32.5 RDW (11.5 - 14.5 SD) 13.4 Plt Count (150 - 450 K/mm3) 148 L MPV (7.0 - 10.5 fL) 10.30 Neut % (Auto) (40 - 76 %) 66.3 Lymph % (Auto) (20.5 - 51.1 %) 18.8 L [place] % (Auto) (1.7 - 9.3 %) 7.5 Eos % (Auto) (0.0 - 6.0 %) 6.3 H Baso % (Auto) (0.0 - 2.0 %) 0.8 Neut # (Auto) (1.8 - 7.6 K/mm3) 4.0 Lymph # (Auto) (0.6 - 3.2 K/mm3) 1.1 [place] # (Auto) (0.3 - 1.1 K/mm3) 0.5 Eos # (Auto) (0.0 - 0.4 K/mm3) 0.4 Baso # (Auto) (0.0 - 0.1 K/mm3) 0.1 Abs Immat Gran (auto) (0.00 - 0.03 x10 3/uL) 0. 02 Add Manual Diff (CRITERIA DIFF/SCN) NO Immature Gran % (0.0 - 5.0 %) 0.3 Nucleated RBC % (0.0 - 1.0 /100WBC%) 0.0 Recent Impressions: RADIOLOGY - XR CHEST 1 V 09/19 0250 Report Impression - Status: SIGNED Entered: 09/19/2022 0614 IMPRESSION: Interval removal of the right sided central veno us line Impression By: Maurice Mancia M.D. CAT SCAN - CTA CHEST FOR PE 09/19 1030 Report Impression - Status: SIGNED Entered: 09/19/2022 1128 IMPRESSION: No pulmonary embolus is identified. Moderate left pleural effusion which appears com plex with layering hyperdensity. This may represent hemothorax delgado anraldo fluid sampling should be considered. Patchy areas of tree-in-bud nodular opacities th roughout both lungs is most consistent with an acute infectious/inflamm atory process. LOCATION: B2 This CT exam was performed according to our depa rtmental dose optimization program, which includes automated e xposure control, adjustment of the mA and or kV according to destiny ent size and/or use of iterative reconstruction technique. Impression By: Tato Beltrán M.D. Current Medications Sig/Johnny Start time Last Medication Dose Route Stop Time Status Admin Tramadol HCl 25 MG Q4H PRN PRN 09/19 1400 AC PO 09/29 1359 Albuterol/Ipratropium 3 ML RTQ6H PRN PRN 09/19 1245 AC NEB 10/03 1244 Furosemide 20 MG ONCE ONE 09/19 1200 DC 09/19 IV 09/19 1201 1247 Iopamidol 100 ML ONCE PRN 09/19 0945 AC 09/19 IV 1045 Sodium Chloride 100 ML ONCE PRN 09/19 0945 DC 0 09/19 IV 1045 Tramadol HCl 25 MG ONCE ONE 09/19 0915 DC 09/19 PO 09/19 0916 0947 Losartan Potassium 12.5 MG DAILY 09/19 0900 AC 09/19 PO 10/19 0859 0829 Ibuprofen 400 MG Q8H PRN PRN 09/19 0000 DC PO 0831 Atorvastatin Calcium 10 MG BEDTIME 09/18 2100 AC 09/18 PO 10/18 Zolpidem Tartrate 5 MG BEDTIME PRN 09/18 2045 A C 09/18 PO 09/20 Ibuprofen 400 MG ONCE ONE 09/18 1845 DC 09/18 PO 09/18 Carvedilol 3.125 MG DAILY 09/18 1300 AC 09/19 PO 10/18 1259 0832 Sertraline HCl 25 MG DAILY 09/18 1300 AC 09/19 PO 10/18 1259 0831 Acetaminophen 650 MG Q4H PRN PRN 09/18 1200 AC PO 10/18 1159 Cefazolin Sodium 1 GM Q8H 09/18 1200 DC 09/19 Sterile Water 10 ML IV 09/19 1159 0418 Ondansetron HCl 4 MG Q8H PRN PRN 09/18 1200 AC 09/19 PO 10/18 1159 0946 Sodium Chloride See Dose ASDIR PRN 09/18 1200 A C Insts (1) IV 10/18 1159 Dose Instructions: (1)Sodium Chloride: SALINE FLUSH Recent Impressions-Last 72 Hrs RADIOLOGY - XR CHEST 1 V 09/18 1200 Report Impression - Status: SIGNED Entered: 09/18/2022 1248 IMPRESSION: Mild congestive changes bilaterally. Impression By: Tato Beltrán M.D. RADIOLOGY - XR CHEST 1 V 09/19 0250 Report Impression - Status: SIGNED Entered: 09/19/2022 0614 IMPRESSION: Interval removal of the right sided central veno us line Impression By: Maurice Mancia M.D. CAT SCAN - CTA CHEST FOR PE 09/19 1030 Report Impression - Status: SIGNED Entered: 09/19/2022 1128 IMPRESSION: No pulmonary embolus is identified. Moderate left pleural effusion which appears com plex with layering hyperdensity. This may represent hemothorax delgado arnaldo fluid sampling should be considered. Patchy areas of tree-in-bud nodular opacities th roughout both lungs is most consistent with an acute infectious/inflamm atory process. LOCATION: B2 This CT exam was performed according to our depa rtmental dose optimization program, which includes automated e xposure control, adjustment of the mA and or kV according to destiny ent size and/or use of iterative reconstruction technique. Impression By: Tato Beltrán M.D. Last Documented: Result Date Time Pulse Ox 93 09/19 1254 B/P 135/64 09/19 1254 B/P Mean 0.0 09/19 1254 O2 Delivery Nasal cannula 09/19 1254 Temp 97.9 09/19 1254 Pulse 82 09/19 1254 Resp 15 09/19 1254 O2 Flow Rate 2 09/19 0746 General appearance: alert, no acute distress Head/eyes: atraumatic, normocephalic, normal con junctiva/sclera ENT: ENT: moist mucosal membranes, normal pharynx Neck: non-tender, supple/no meningismus Cardiovascular: normal S1/S2, regular rate rhyth m Respiratory/chest: decreased breath sounds, on o xygen, rales, bandage, sling Abdomen: soft, non-tender Extremities: edema, no clubbing, no cyanosis Musculoskeletal: normal inspection, no muscle sp asm Neuro/ENGINEERING INSPECTION ASSISTANT: alert, oriented X 3, no motor deficit s Skin: dry, intact Lymphatics: neck normal, no lymphadenopathy Diagnosis, Assessment Plan Free Text DxA P Notes Free Text DxA P Notes: Impression 1. Left pleural effusion apparently new blood la yering densities, unclear etiology 2. Chronic appearing lung parenchymal changes, r ecommend outpatient follow-up Evaluation, she can follow-up with her pulmonary doctor that has she has recently seen in the office 3. Status post pacemaker, tachybradycardia syndr ome, history of atrial fibrillation 4. Emphysema 5. Hypertension 6. Lidocaine allergy Discussion The patient is allergic to lidocaine, states xiomara t she developed diffuse rash, hives, welts however this wa s many years ago after a dental procedure but she is not sure of the exact details. I spoke with nursing staff as well as armacist regarding alternative topical anesthetics of a different class than lidocaine however this is not available here. Due to patient's poor respiratory status a nd lack of monitoring and resources of the weekend wou ld like to avoid systemic sedation as was done with pacemaker placement. She is also allergic to opi ates. Recommendation 1. Consultation with interventional radiology an d pharmacy and possibly anesthesia to conduct left diagnostic and therap eutic thoracentesis tomorrow. She will need closer monitoring. 2. Send pleural fluid for analysis 3. Follow-up imaging 4. Patient advised to follow-up with her pulmona ry doctor in the outpatient setting in regards to the abnormal CT chest that seen her as far as the lung parenchymal changes Thanks much for this consultation. I spoke with patient, granddaughter, daughter by phone and nursing staff. Electronically Signed by Aaron Chavis MD on 0 09/19/22 at 1432 RPT #: [id number] END OF REPORT 2022-09-19 12:29:00-00:00 [facility] ([facility]) Hospitalist Progress Note REPORT#:[id number] REPORT STATUS: Signed DATE:09/19/22 TIME:1229 PATIENT: LESLEY BREAUX UNIT #: [id number] ROOM/BED: [place] [id number] : 36 AGE: 87 SEX: F ATTEND: Tuan Ortega MD Cardiology ADM AUTHOR: Ora Mackay * ALL edits or amendments must be made on the [employer]/computer document * Subjective Chief complaint: chest wall pain HPI: pt c/o left lower chest wall pain with SOB, CTA Chest was negative for PE but noted complex moderate pleural effusion, possibl e hemothorax respiratory status stable, no hypoxia, o n intermittent 2L O2 nasal cannula for comfort Review of Systems Constitutional: Denies: fever. Respiratory: Reports: SOB. Cardiovascular: Reports: chest pain. GI: Denies: nausea, vomiting. Objective General VS/I O: Vital Signs: Date Time Temp Pulse Resp B/P B/P Pulse O2 O2 F low FiO2 Mean Ox Delivery Rate 09/19 0749 98.4 82 15 145/72 96.2 97 Nasal cannula 09/19 0746 Nasal 2 cannula 09/19 0357 97.3 66 16 117/58 77.7 100 Room air 09/18 2338 97.9 66 16 106/61 75.8 98 Room air 09/18 1928 97.9 75 16 114/63 79.7 99 Room air 09/18 1619 97.3 72 15 129/69 89.4 97 Nasal 2 cannula 09/18 1416 Nasal 2 cannula 09/18 1347 75 15 135/77 96.2 96 Nasal 2 cannula 09/18 1337 97.9 76 16 166/72 103.0 95 Nasal 2 cannula 09/18 1315 97.4 70 16 142/65 99 Nasal cannula 09/18 1245 63 14 161/89 93 Nasal cannula 24 hour I O ending at 0700: 09/19 0700 09/18 1900 Intake Total 500 Output Total Balance 500 Intake, Oral 500 Number Voids 2 1 Patient 45 kg Weight Weight Bed scale Measurement Method PATIENT WEIGHT: Weight (lb): 99 Weight (oz): 3.33 Weight (kg): 45.000 Medications: Active Meds + DC'd Last 24 Hrs Tramadol HCl (ULTRAM) 25 MG Q4H PRN PRN PO Furosemide (LASIX 20MG INJ) 20 MG ONCE ONE IV (D C) Iopamidol (ISOVUE-370) 100 ML ONCE PRN IV Sodium Chloride (SODIUM CHLORIDE 0.9%) 100 ML ON CE PRN IV (DC) Tramadol HCl (ULTRAM) 25 MG ONCE ONE PO (DC) Losartan Potassium (COZAAR) 12.5 MG DAILY PO Ibuprofen (IBUPROFEN) 400 MG Q8H PRN PRN PO (DC) Atorvastatin Calcium (LIPITOR) 10 MG BEDTIME PO Zolpidem Tartrate (AMBIEN) 5 MG BEDTIME PRN PO Ibuprofen (IBUPROFEN) 400 MG ONCE ONE PO (DC) Carvedilol (COREG) 3.125 MG DAILY PO Sertraline HCl (ZOLOFT) 25 MG DAILY PO Acetaminophen (TYLENOL) 650 MG Q4H PRN PRN PO Cefazolin Sodium (KEFZOL) 1 GM Q8H IV (DC) Sterile Water (WATER FOR INJECTION) 10 ML Ondansetron HCl (ZOFRAN ODT) 4 MG Q8H PRN PRN PO Sodium Chloride (SODIUM CHLORIDE) SALINE FLUSH ASDIR PRN IV Dietitian nutrition assessment The data set between the solid lines has been im ported from the dietitian's assessment. BMI Calculated: 19.4 Nutrition related diagnosis: Nutrition diagnosis details: Nutrition problem: Nutrition etiology: Nutrition signs and symptoms: Nutrition prescription: Dietitian name: Assessment completed: Physical Exam General appearance: chronically ill appearing, f rail, alert, awake, no acute distress Head/Eyes: atraumatic, normocephalic ENT: poor dentition, moist mucosal membranes Cardiovascular: normal heart sounds, regular rat e rhythm Respiratory: decreased breat h sounds, symmetric expansion, no distress, PPM site c/d/i, no overlying edema, erythema or warmth Abdomen: non-tender, soft Extremities: moves all, no edema Neuro/ENGINEERING INSPECTION ASSISTANT: alert, normal speech Psychiatry: normal affect, normal mood Results Findings/Data: Laboratory Tests 09/19 436 Chemistry Sodium (134 - 147 mmol/L) 142 Potassium (3.4 - 5.0 mmol/L) 3.6 Chloride (100 - 108 mmol/L) 107 Carbon Dioxide (21 - 32 mmol/L) 31 Anion Gap (4.0 - 15.0 GAP calc) 4.0 BUN (7 - 18 MG/DL) 31 H Creatinine (0.6 - 1.0 MG/DL) 1.1 H Glomerular Filtr Rate (>60 estGFR) 49 L Glucose (70 - 110 MG/DL) 99 Calcium (8.5 - 10.1 MG/DL) 8.6 Laboratory Tests 09/19 436 Hematology WBC (3.5 - 11.0 K/mm3) 6.0 RBC (4.70 - 6.10 M/mm3) 3.00 L Hgb (10.4 - 14.9 G/DL) 9.0 L Hct (31.5 - 44.1 %) 27.7 L MCV (84.5 - 98.6 Fl) 92.3 MCH (27.0 - 34.2 pg) 30.0 MCHC (31.5 - 34.0 G/DL) 32.5 RDW (11.5 - 14.5 SD) 13.4 Plt Count (150 - 450 K/mm3) 148 L MPV (7.0 - 10.5 fL) 10.30 Neut % (Auto) (40 - 76 %) 66.3 Lymph % (Auto) (20.5 - 51.1 %) 18.8 L [place] % (Auto) (1.7 - 9.3 %) 7.5 Eos % (Auto) (0.0 - 6.0 %) 6.3 H Baso % (Auto) (0.0 - 2.0 %) 0.8 Neut # (Auto) (1.8 - 7.6 K/mm3) 4.0 Lymph # (Auto) (0.6 - 3.2 K/mm3) 1.1 [place] # (Auto) (0.3 - 1.1 K/mm3) 0.5 Eos # (Auto) (0.0 - 0.4 K/mm3) 0.4 Baso # (Auto) (0.0 - 0.1 K/mm3) 0.1 Abs Immat Gran (auto) (0.00 - 0.03 x10 3/uL) 0. 02 Add Manual Diff (CRITERIA DIFF/SCN) NO Immature Gran % (0.0 - 5.0 %) 0.3 Nucleated RBC % (0.0 - 1.0 /100WBC%) 0.0 Radiology data: Recent Impressions: RADIOLOGY - XR CHEST 1 V 09/19 0250 Report Impression - Status: SIGNED Entered: 09/19/2022 0614 IMPRESSION: Interval removal of the right sided central veno us line Impression By: Maurice Mancia M.D. CAT SCAN - CTA CHEST FOR PE 09/19 1030 Report Impression - Status: SIGNED Entered: 09/19/2022 1128 IMPRESSION: No pulmonary embolus is identified. Moderate left pleural effusion which appears com plex with layering hyperdensity. This may represent hemothorax delgado arnaldo fluid sampling should be considered. Patchy areas of tree-in-bud nodular opacities th roughout both lungs is most consistent with an acute infectious/inflamm atory process. LOCATION: B2 This CT exam was performed according to our depa rtmental dose optimization program, which includes automated e xposure control, adjustment of the mA and or kV according to destiny ent size and/or use of iterative reconstruction technique. Impression By: Tato Beltrán M.D. Diagnosis, Assessment Plan Free Text DxA P Notes Free text DxA P notes: 87 y/o female with PMHx of H TN, HLD, COPD, paroxysmal Afib, sick sinus syndrome, tachybrady syndome admitted for: #Paroxysmal Afib, sick sinus syndrome, tachybrad y syndrome s/p PPM placement s/p PPM placement by Cardiology Dr. Ortega 09/18 Monitor under continuous dental laboratory supervisor PPM insertion site Pain control with Tylenol/Tramadol PRN Continue home coreg Hold Eliquis for possible hemothorax on CTA Ches t #Complex moderate left pleural effusion CTA Chest negative for PE, noted complex moderat e left pleural effusion, possible hemothorax Respiratory status stable, supplemental O2 PRN t o maintain SpO2 >92% Will give IV lasix 20mg x1 Consult Pulmonology #Hypertension Continue home coreg, losartan IV hydralazine PRN #Hx of COPD Not in acute exacerbation Duoneb tx PRN DVT prophylaxis with SCDs, hold home Eliquis for possible hemothorax Full code at 1236 Electronically Signed by Tejinder Toribio MD on 0 09/19/22 at 1307 RPT #: [id number] END OF REPORT 2022-09-19 11:30:00-00:00 [id number] [address] PATIENT NAME: LESLEY BREAUX ADMIT DATE: ACCOUNT NO: [id number] ROOM NO: [facility] AGE: 87 REPORT TYPE: eELECTROCARDIOGRAM SEX: F ADMITTING PHYSICIAN: Tejinder Toribio MD ATTENDING PHYSICIAN: Gissel Ortega MD Order: [id number] Test Reason : S/P PPI Test Date/Time Stamp: TueSep 19 2022 11:30:57 Blood Pressure : / mmHG Vent. Rate : 066 BPM Atrial Rate : 066 BPM P-R Int : 242 ms QRS Dur : 158 ms QT Int : 480 ms P-R-T Axes : 000 -75 105 degree s QTc Int : 503 ms AV dual-paced rhythm with prolonged AV conductio n Abnormal ECG When compared with ECG of 18-SEP-2022 12:20, Vent. rate has decreased BY 2 BPM Confirmed by GISSEL ORTEGA ([id number]) on 09/19/2022 5:56:33 PM Referred By: Gissel Ortega Confirmed by:GISSEL CABALLERO at 1756 PATIENT NAME: LESLEY BREAUX [id number] 2022-09-18 12:20:00-00:00 [id number] [address] PATIENT NAME: LESLEY BREAUX ADMIT DATE: ACCOUNT NO: [id number] ROOM NO: [facility] AGE: 87 REPORT TYPE: eELECTROCARDIOGRAM SEX: F ADMITTING PHYSICIAN: Tejinder Toribio MD ATTENDING PHYSICIAN: Gissel Ortega MD Order: [id number] Test Reason : Post insertion procedure Test Date/Time Stamp: [facility] Sep 18 2022 12:20:50 Blood Pressure : / mmHG Vent. Rate : 068 BPM Atrial Rate : 068 BPM P-R Int : 340 ms QRS Dur : 144 ms QT Int : 462 ms P-R-T Axes : 079 -81 086 degree s QTc Int : 491 ms AV dual-paced rhythm with prolonged AV conductio n with occasional ventricular-paced complexes Abnormal ECG When compared with ECG of 18-SEP-2022 08:11, Electronic ventricular pacemaker has replaced Si nus rhythm Confirmed by GISSEL ORTEGA ([id number]) on 09/18/2022 1:01:23 PM Referred By: Gissel Ortega Confirmed by:GISSEL CABALLERO at 1301 PATIENT NAME: LESLEY BREAUX [id number] 2022-09-18 12:17:00-00:00 [facility] ([facility]) Hospitalist History Physical REPORT#:[id number] REPORT STATUS: Signed DATE:09/18/22 TIME:1217 PATIENT: LESLEY BREAUX UNIT #: [id number] ROOM/BED: [place] [id number] : 36 AGE: 87 SEX: F ATTEND: Tuan Ortega MD Cardiology ADM AUTHOR: Ora Mackay * ALL edits or amendments must be made on the [employer]erospike/computer document * History of Present Illness HPI Chief complaint: chest wall pain HPI: 87 y/o female with PMHx of H TN, HLD, COPD, paroxysmal Afib, sick sinus syndrome, tachybrady syndome was admitted to the hospital for postoperative monitoring after PPM placement by Dr. Andrew villanueva today. Pt c/o mild chest wall pain at site of PPM, no other complaints. De nies any palpitations or SOB. No nausea or vomiting. History Family History Family history: Reports: Heart disease, Hypertension. Social History Smoking status for patients 13 years old or olde r: Never Smoker Medication/Allergy-Vaccine Hx Medications: Home Medications: APIXABAN (ELIQUIS) 2.5 MG PO BID LOSARTAN (COZAAR) 12.5 MG PO DAILY FUROSEMIDE (LASIX) 10 MG PO DAILY ZOLPIDEM (AMBIEN) 10 MG PO BEDTIME SERTRALINE (ZOLOFT) 25 MG PO DAILY ATORVASTATIN (LIPITOR) 10 MG PO DAILY CARVEDILOL (COREG) 3.125 MG PO DAILY [REXULTI] 1 MG PO BEDTIME CHOLECALCIFEROL (VITAMIN D3) (VITAMIN D3) 2,000 UNITS PO DAILY ALBUTEROL (PROAIR DIGIHALER 90 MCG/ACT 0.65 GM) 2 PUFF INH BID PRN SOB Allergies: Coded Allergies: fentanyl (Severe, COMA 09/16/22) Penicillins (Intermediate, HIVES 09/16/22) Sulfa (Sulfonamide Antibiotics) (Intermediate, M AKES HER PASS OUT 09/16/22) codeine (Intermediate, VOMITING 09/16/22) hydrocodone (Intermediate, VOMITING 09/16/22) meperidine (From DEMEROL) (Intermediate, THROW U P 09/16/22) morphine (Mild, HIVES 09/16/22) Review of Systems Constitutional: Denies: chills, fever. Skin: Denies: bruising, rash. Eyes: Denies: visual loss/blurred, eye pain. ENT: Denies: nasal congestion, sore throat. Respiratory: Denies: productive cough (sputum), SOB. Cardiovascular: Denies: chest pain, palpitations. GI: Denies: nausea, vomiting. : Denies: dysuria, hematuria. Musculoskeletal: Denies: extremity pain, extremity swelling. Neuro: Denies: headache, syncope. OBJECTIVE VS/I O: Vital Signs Date Temp Pulse Resp B/P B/P Mean Pulse Ox FiO2 09/18 97.0-97.9 60-76 14-18 135-226/65-96 96.2- 103.0 93-100 Last Documented: Result Date Time O2 Delivery Nasal cannula 09/18 1416 O2 Flow Rate 2 09/18 1416 Pulse Ox 96 09/18 1347 B/P 135/77 09/18 1347 B/P Mean 96.2 09/18 1347 Pulse 75 09/18 1347 Resp 15 09/18 1347 Temp 97.9 09/18 1337 Patient Weight and BMI Weight (kg): 45.000 BMI: 19.4 Medications: Active Meds + DC'd Last 24 Hrs Losartan Potassium (COZAAR) 12.5 MG DAILY PO Atorvastatin Calcium (LIPITOR) 10 MG BEDTIME PO Carvedilol (COREG) 3.125 MG DAILY PO Sertraline HCl (ZOLOFT) 25 MG DAILY PO Acetaminophen (TYLENOL) 650 MG Q4H PRN PRN PO Cefazolin Sodium (KEFZOL) 1 GM Q8H IV Sterile Water (WATER FOR INJECTION) 10 ML Ondansetron HCl (ZOFRAN ODT) 4 MG Q8H PRN PRN PO Sodium Chloride (SODIUM CHLORIDE) SALINE FLUSH ASDIR PRN IV Flumazenil (ROMAZICON) 0 .STK-MED ONE .ROUTE (DC ) Flumazenil (ROMAZICON) 0 .STK-MED ONE .ROUTE (D C) Midazolam HCl (VERSED) 0 .STK-MED ONE .ROUTE (DC ) Nitroglycerin (NITRO-BID) 0 .STK-MED ONE .ROUTE (DC) Midazolam HCl (VERSED) 0 .STK-MED ONE .ROUTE (DC ) Cefazolin Sodium (KEFZOL) 0 .STK-MED ONE .ROUTE (DC) Gentamicin Sulfate (GARAMYCIN) 0 .STK-MED ONE .R OUTE (DC) Lidocaine HCl (lidocaine HCL) 0 .STK-MED ONE .RO CL (DC) Gentamicin Sulfate (GARAMYCIN) 0 .STK-MED ONE .R OUTE (DC) Lidocaine HCl (lidocaine HCL) 0 .STK-MED ONE .RO CL (DC) Diazepam (VALIUM) 5 MG ONCE ONE PO (DC) Diphenhydramine HCl (BENADRYL) 25 MG ONCE ONE PO (DC) General appearance: chronically ill appearing, f rail, alert, awake, no acute distress Head/Eyes: atraumatic, normocephalic ENT: poor dentition, moist mucosal membranes Cardiovascular: normal heart sounds, regular rat e rhythm Respiratory: symmetric expansion, no distress, P PM site c/d/i, no overlying edema, erythema or warmth Abdomen: non-tender, soft Extremities: moves all, no edema Neuro/ENGINEERING INSPECTION ASSISTANT: alert, normal speech Psychiatry: normal affect, normal mood Results Findings/Data: Laboratory Tests: 09/18 0744 Chemistry Sodium (134 - 147 mmol/L) 140 Potassium (3.4 - 5.0 mmol/L) 3.7 Chloride (100 - 108 mmol/L) 104 Carbon Dioxide (21 - 32 mmol/L) 32 Anion Gap (4.0 - 15.0 GAP calc) 4.0 BUN (7 - 18 MG/DL) 20 H Creatinine (0.6 - 1.0 MG/DL) 1.0 Glomerular Filtr Rate (>60 estGFR) 55 L Glucose (70 - 110 MG/DL) 95 Calcium (8.5 - 10.1 MG/DL) 9.9 Magnesium (1.8 - 2.4 MG/DL) 2.1 Total Bilirubin (0.2 - 1.2 MG/DL) 1.10 AST (15 - 37 Unit/L) 21 ALT (12 - 78 Unit/L) 27 Total Alk Phosphatase (45 - 117 Unit/L) 99 Total Protein (6.4 - 8.2 G/DL) 7.6 Albumin (3.4 - 5.0 G/DL) 3.6 Globulin (GM/dL) 4.0 Albumin/Globulin Ratio (1.2 - 2.2 RATIO) 0.9 L Triglycerides (0 - 150 MG/DL) 100 Cholesterol (133 - 200 MG/DL) 148 LDL Cholesterol Measurd (0 - 129 MG/DL) 58 Non-HDL Cholesterol (<130 mg/dL) 69 HDL Cholesterol (40 - 59 MG/DL) 79 H LDL/HDL Ratio (1.48 - 3.22 Avg Ratio) 0.73 L Cholesterol/HDL Ratio (0 RATIO) 1.87 Coagulation INR (0.8 - 1.2 INR Unit) 1.04 PT Patient/Control Mix (9.3 - 12.9 SECONDS) 11. 6 Hematology WBC (3.5 - 11.0 K/mm3) 5.6 RBC (4.70 - 6.10 M/mm3) 4.11 L Hgb (10.4 - 14.9 G/DL) 12.2 Hct (31.5 - 44.1 %) 37.4 MCV (84.5 - 98.6 Fl) 91.0 MCH (27.0 - 34.2 pg) 29.7 MCHC (31.5 - 34.0 G/DL) 32.6 RDW (11.5 - 14.5 SD) 13.1 Plt Count (150 - 450 K/mm3) 217 MPV (7.0 - 10.5 fL) 10.00 Neut % (Auto) (40 - 76 %) 61.2 Lymph % (Auto) (20.5 - 51.1 %) 24.0 [place] % (Auto) (1.7 - 9.3 %) 6.1 Eos % (Auto) (0.0 - 6.0 %) 7.2 H Baso % (Auto) (0.0 - 2.0 %) 1.1 Neut # (Auto) (1.8 - 7.6 K/mm3) 3.4 Lymph # (Auto) (0.6 - 3.2 K/mm3) 1.3 [place] # (Auto) (0.3 - 1.1 K/mm3) 0.3 Eos # (Auto) (0.0 - 0.4 K/mm3) 0.4 Baso # (Auto) (0.0 - 0.1 K/mm3) 0.1 Abs Immat Gran (auto) (0.00 - 0.03 x10 3/uL) 0. 02 Add Manual Diff (CRITERIA DIFF/SCN) NO Immature Gran % (0.0 - 5.0 %) 0.4 Nucleated RBC % (0.0 - 1.0 /100WBC%) 0.0 Laboratory Tests 08/12/23 0744: [Embedded Image Not Available] Radiology data: Recent Impressions: RADIOLOGY - XR CHEST 1 V 09/18 1200 Report Impression - Status: SIGNED Entered: 09/18/2022 1248 IMPRESSION: Mild congestive changes bilaterally. Impression By: Tato Beltrán M.D. Diagnosis, Assessment Plan Free Text A P: 87 y/o female with PMHx of H TN, HLD, COPD, paroxysmal Afib, sick sinus syndrome, tachybrady syndome admitted for: #Paroxysmal Afib, sick sinus syndrome, tachybrad y syndrome s/p PPM placement s/p PPM placement by Cardiology Dr. Jordan bravo y Monitor under continuous dental laboratory supervisor PPM insertion site Pain control with Tylenol/Tramadol PRN Continue home coreg, Eliquis #Hypertension Continue home coreg, losartan IV hydralazine PRN #Hx of COPD Not in acute exacerbation Duoneb tx PRN DVT prophylaxis with home Eliquis Full code Dispo- plan DC home tomorrow morning if pain con trolled and tolerating po at 1516 Electronically Signed by Tejinder Toribio MD on 0 09/19/22 at 1306 RPT #: [id number] END OF REPORT 2022-09-18 11:57:00-00:00 [id number] HCAPM [facility] [id number] [place] [id number] PATIENT NAME: LESLEY BREAUX ADMIT DATE: ACCOUNT NO: [id number] ROOM NO: L.PO10 AGE: 87 REPORT TYPE: CARDIAC CATHETERIZATION REPORT SEX : F ADMITTING PHYSICIAN: Tejinder Toribio MD ATTENDING PHYSICIAN: Gissel Ortega MD PROCEDURE DATE: 09/18/2022 DOOR CLOSER MECHANIC: Gissel Ortega MD. INDICATION FOR THE PROCEDURE: Symptomatic sick s inus syndrome with paroxysmal atrial fibrillation and history of nonsustained ventricular tachycardia. TITLE OF PROCEDURE: Dual salvador mber permanent pacemaker, MRI compatible pacemaker. ESTIMATED BLOOD LOSS: Minimal. COMPLICATIONS: None. The patient had transient hypotension from overs edation and resolved after wiping off the nitro paste and then reversing so me of the sedation. CONTRAST: None. ANESTHESIA: Conscious sedation with Versed. No o ther medications were given due to the patient's allergies. FINAL DIAGNOSES: Successful dual chamber permanent pacemaker implantation, MRI compatible. DISPOSITION: Observation overnight. The patient did get Ancef pr ior to the procedure and did get only Versed for the sedation. PROCEDURE IN DETAIL: Please see enclosed report in the chart. Dictated By: Gissel Ortega MD Date Dictated: 09/18/2022 11:57:24 Date Transcribed: 09/18/2022 14:28:58 [facility] Receipt ID: [id number] Authenticated by iGssel Ortega MD On 09/07 10:28:01 AM PATIENT NAME: LESLEY BREAUX [id number] at 1028 PATIENT NAME: LESLEY BREAUX [id number] 2022-09-18 08:11:00-00:00 [id number] [place] [address] PATIENT NAME: LESLEY BREAUX ADMIT DATE: ACCOUNT NO: [id number] ROOM NO: AGE: 87 REPORT TYPE: eELECTROCARDIOGRAM SEX: F ADMITTING PHYSICIAN: ATTENDING PHYSICIAN: Gissel Ortega MD Order: [id number] Test Reason : ABN STRESS Test Date/Time Stamp: TueSep 18 2022 08:11:41 Blood Pressure : / mmHG Vent. Rate : 062 BPM Atrial Rate : 062 BPM P-R Int : 368 ms QRS Dur : 068 ms QT Int : 418 ms P-R-T Axes : 084 -58 052 degree s QTc Int : 424 ms Sinus rhythm with marked sinus arrhythmia with 1 st degree AV block with premature ventricular complexes or fusion comple xes Left axis deviation Anteroseptal infarct , age undetermined Abnormal ECG No previous ECGs available Confirmed by GISSEL ORTEGA ([id number]) on 09/18/2022 9:34:02 AM Referred By: Gissel Ortega Confirmed by:GISSEL CABALLERO at 0934 PATIENT NAME: LESLEY BREAUX [id number] 2022-09-17 08:06:00-00:00 [id number] [facility] [id number] [place] [id number] PATIENT NAME: LESLEY BREAUX ADMIT DATE: ACCOUNT NO: [id number] ROOM NO: AGE: 87 REPORT TYPE: HISTORY AND PHYSICAL SEX: F ADMITTING PHYSICIAN: ATTENDING PHYSICIAN: Gissel Ortega MD Cardiolo gy PATIENT NAME: LESLEY BREAUX ADMIT DATE: 023 ADMISSION DATE: 09/18/2022 10:00:00 DOOR CLOSER MECHANIC: Gissel Ortega MD. REASON FOR CONSULTATION: The title of t he procedure is dual chamber permanent pacemaker implantation for s ymptomatic sick sinus syndrome and paroxysmal atrial fibrillation in a patient with no coronary histo ry. HISTORY OF PRESENT ILLNESS: Lesley is an 87-year-o ld lady with symptomatic paroxysmal atrial fibrillation and sick sinus syndrome, who has been evaluated by Dr. Tenorio for her tachybrady syndrome and Dr Rivka Tenorio reviewed her records including a recent event recorder that showed po ssible nonsustained ventricular tachycardia versus aberration runs. She had significant sinus bradycardia. She had pauses up to 3.3 seconds al ternating with paroxysmal atrial fibrillation. He felt that the patient's best option for treatment would be dual chamber permanent pacemaker implantation and medical therapy for her paroxysmal atrial fibrillation. So, after discus ar with the patient and Dr. Tenorio and the patient's fam brandon, the patient is here for dual chamber permanent pacemaker implantation. The patient has had hist ory of angina for some time. She has had 2 negative cardiac catheterizations in 2010 and 2021. Her carotid Doppler shows less than 50% disease, mon itoring was described above. She has a baseline of sinus bradycardia and first-degree A V block. Echocardiography showing hypertensive changes and mild mitral reg urgitation, moderate aortic insufficiency, normal ejection fraction. She has pulmonary hypertension, 50-60 mmHg. Has had a negative chemical stress test for ischemia. The patient's main issues at this time is sympt omatic tachybrady syndrome and need for dual chamber permanent pacemaker implantation. PAST MEDICAL HISTORY: As per above the patient h as had also history of hypertension, hyperlipidemia. She said she may h ave had an old myocardial infarction. She said she may have had a stroke in the past. Has hypothyroidism, seizures, insomnia, osteoart hritis, asthma, glaucoma, anxiety, depression, COPD; C. diff , recently hospitalized for it a nd recovered and COVID in October of 2021 and allergies. PAST SURGICAL HISTORY: She has had a complete hy sterectomy and history of ablation for the fibrillation that failed in . SOCIAL HISTORY: There is no history of smoking, alcohol or street drug use. FAMILY HISTORY: Positive for atherosclerotic car diovascular disease. PATIENT NAME: LESLEY BREAUX [id number] ALLERGIES: DEMEROL, SULFA, CODEINE, HYDROCODONE AND FENTANYL CAUSES RASH. MEDICATIONS: Vitamin D3, Ambien, atorvastatin, f urosemide, sertraline, carvedilol, losartan, Eliqui s and aspirin, Eliquis is on hold and the carvedilol is 6.25 b.i.d. and losartan is 25 mg half twice daily. REVIEW OF SYSTEMS: Remarkable for the ab ove in addition to fatigue, allergies, generalized weakness, recent hospitaliza tion for C. diff, history of stroke in 2003. She has also history of anxiety and depres ar. The rest of the review of systems is enclosed. PHYSICAL EXAMINATION: GENERAL: Reveals a pleasant elderly lady, in no acute distress. VITAL SIGNS: Blood pressure 154/70, pulse 58 and regular, respiratory rate 16 and unlabored, temperature afebrile. HEENT: Head atraumatic, normocephalic. Eyes and ENT examination within normal for age. NECK: Supple. Elevated jugular venous pressure i s noted. No bruits. Normal upstroke. LUNGS: Clear and resonant with diminishe d breath sounds at the bases. She uses oxygen on and off. HEART: Regular rate and rhyt hm with II/ systolic and diastolic murmurs at the mitral and aortic area respectively and bradycar ramo noted. No gallops. ABDOMEN: Soft. No tenderness, no organomegaly, n o masses or bruits. EXTREMITIES: 2+ distal pulses. No edema, cyanosi s or clubbing. NEUROLOGIC: Alert and oriented x3. The examinati on appears to be nonfocal. LABORATORY AND DIAGNOSTIC DATA: Pending. Noninva sive cardiovascular workup enclosed. IMPRESSION: This is an 87-year-old lady with mul tiple medical problems and significant cardiovascular history whose main pr oblem right now is paroxysmal atrial fibrillation, alternating with symptomati c sick sinus syndrome, tachybrady syndrome. The patient was evaluated b y Electrophysiology and dual chamber permanent pacemaker implantation was adv ised. The patient is here for that procedure. The patient is otherwise stable from the cardiovascular standpoint. The patient is r ight handed, so proceed with dual chamber permanent pacemaker implantation from the left side. PLAN: The recommendation is to proceed with the above-mentioned procedures. The risks and benefits of the planned procedure were discussed in detail with the patient and available [facility] members and she is willing to proceed. Rest as per orders. Dictated By: Gissel Ortega MD Date Dictated: 09/17/2022 08:06:04 Date Transcribed: 09/17/2022 09:56:45 [facility] PATIENT NAME: LESLEY BREAUX [id number] Receipt ID: [id number] Authenticated and Edited by Gissel Ortega MD On 09/17/22 5:36:56 PM at 0539 PATIENT NAME: LESLEY BREAUX [id number]
--- NOTE | 2022-10-14 19:09 | EDPHYS ---
Physician Documentation [facility] Name: Madiha Breaux Age: 87 yrs Sex: Female : 1935 Arrival Date: 10/14/2022 Time: 11:40 Bed 20 Private MD: ED Physician Santos Rod HPI: 10/14 14:56 This 87 yrs old Female presents to ER via Wheelchair with complaints of ms3 Diarrhea, Abdominal Pain. 14:56 87-year-old female with past medical history of COPD, CHF, atrial fibrillation, CVA, ms3 myocardial infarction, pacemaker presents for generalized abdominal pain, diarrhea that began at 3 AM. Patient states she has had 4 episodes of diarrhea. Patient rates her pain a 6/10 located generally throughout her abdomen. Patient denies alleviating or inciting factors. Historical: - Allergies: 12:15 Codeine; cm10 12:15 Demerol; cm10 12:15 Fentanyl; cm10 12:15 lamital; cm10 12:15 Lidocaine; cm10 12:15 meperidine; cm10 12:15 Morphine; cm10 12:15 [place]; cm10 12:15 PENICILLINS; cm10 12:15 PORK/PORCINE PRODUCT DERIVATIVES; cm10 12:15 Sulfa (Sulfonamide Antibiotics); cm10 - Home Meds: 20:31 sertraline 25 mg oral tablet 1 tab daily [Active]; furosemide 20 mg Oral tablet 1/2 ha1 tablet [Active]; atorvastatin 10 mg oral tablet daily [Active]; zolpidem 10 mg Oral tablet every day at bedtime [Active]; losartan 25 mg oral tablet 1 tab daily [Active]; Eliquis 2.5 mg oral tablet 1 tab 2 times per day [Active]; Rexulti 1 mg oral tablet daily [Active]; - PMHx: 12:15 COPD; C-Diff; Atrial fibrillation; Pacemaker; CVA; Myocardial infarction; cm10 - Immunization history:: Adult Immunizations. - Social history:: Smoking status: Patient denies any tobacco usage or history of. ROS: 19:08 Constitutional: Negative for fever, and chills. Neck: Negative for injury, pain, and ms3 swelling, Cardiovascular: Negative for chest pain, and palpitations. Respiratory: Negative for shortness of breath, cough, wheezing, and pleuritic chest pain. 19:08 MS/Extremity: Negative for injury and deformity, Skin: Negative for injury, rash, and discoloration. 19:08 Abdomen/GI: Positive for abdominal pain, diarrhea. 19:08 All other systems are negative. Exam: 19:08 Constitutional: This is a well developed, well nourished patient who is awake, alert, ms3 and in no acute distress. Head/Face: Normocephalic, atraumatic. Chest/axilla: Normal chest wall appearance and motion. Nontender with no deformity. Cardiovascular: Regular rate and rhythm with a normal S1 and S2. No gallops, murmurs, or rubs. Normal PMI, no JVD. No pulse deficits. Respiratory: Lungs have equal breath sounds bilaterally, clear to auscultation and percussion. No rales, rhonchi or wheezes noted. No increased work of breathing, no retractions or nasal flaring. Abdomen/GI: Soft, non-tender, with normal bowel sounds. No distension or tympany. No guarding or rebound. No evidence of tenderness throughout. Skin: Warm, dry with normal turgor. Normal color with no rashes, no lesions, and no evidence of cellulitis. MS/ Extremity: Pulses equal, no cyanosis. Neurovascular intact. Full, normal range of motion. Vital Signs: 12:10 BP 138 / 62; Pulse 95; Resp 18; Temp 98.2; Pulse Ox 96% on 3 lpm NC; Weight 45.36 kg; cm10 Height 5 ft. 0 in. ; Pain 6/10; 15:31 BP 191 / 85; Pulse 89; Resp 16 S; Temp 97.5; Pulse Ox 100% on 3 lpm NC; kc6 16:27 BP 163 / 71; Pulse 85; Resp 17 S; Pulse Ox 100% on 3 lpm NC; kc6 17:28 BP 172 / 73; Pulse 88; Resp 18 S; Pulse Ox 100% on R/A; kc6 18:13 BP 158 / 67; Pulse 82; Resp 17 S; Pulse Ox 99% on R/A; kc6 19:30 BP 170 / 72; Pulse 88; Resp 17 S; Pulse Ox 99% on 3 lpm NC; ha1 12:10 Body Mass Index 19.53 (45.36 kg, 152.4 cm) cm10 12:10 Pain Scale: Adult cm10 MDM: 12:29 Patient medically screened. ms3 19:08 Differential diagnosis: Nonspecific abd pain, gastritis, viral gastroenteritis, C. ms3 Diff. Data reviewed: vital signs, nurses notes, lab test result(s), and as a result, I will admit patient. Consideration of Admission/Observation Patient was admitted/placed on observation. Management of patient was discussed with the following: Hospitalist: . I considered the following discharge prescriptions or medication management in the emergency department. Historians other than the Patient: Daughter/Son: Patient's daughter. Counseling: I had a detailed discussion with the patient and/or guardian regarding the historical points, exam findings, and any diagnostic results supporting the discharge/admit diagnosis, lab results, the need for further work-up and treatment in the hospital. ED course: Prior lab C. difficile testing is batched at 5:30 AM. Patient and her daughter feel patient's symptoms consistent with her C. difficile infections in the past. Patient with multiple loose stools. Will place patient in observation. Discussed patient with nurse practitioner Lizbet, with the hospitalist service. All questions were answered.. 10/14 12:18 Order name: CBC with Diff; Complete Time: 16:50 ms3 10/14 12:18 Order name: CMP; Complete Time: 16:50 ms3 10/14 17:55 Order name: Ova And Parasites ms3 10/14 19:26 Order name: Basic Metabolic Panel EDMS 10/14 19:26 Order name: Basic Metabolic Panel EDMS 10/14 19:26 Order name: CBC with Automated Diff EDMS 10/14 19:26 Order name: CBC with Automated Diff EDMS 10/14 19:26 Order name: Magnesium EDMS 10/14 19:26 Order name: Magnesium EDMS 10/14 19:23 Order name: CONS Physician Consult EDMS 10/14 19:26 Order name: Heart Healthy EDMS Administered Medications: No medications were administered Disposition Summary: 10/14/22 19:08 Hospitalization Ordered Hospitalization Status: Observation ms3 Provider: Siobhan Barillas ms3 Condition: Stable ms3 Problem: new ms3 Symptoms: are unchanged ms3 Bed/Room Type: Standard ms3 Location: Telemetry/MedSurg (observation)(10/15/22 06:08) Room Assignment: 204(10/15/22 06:08) mw Diagnosis - Diarrhea, unspecified ms3 - History of C. Diff ms3 Forms: - Medication Reconciliation Form ms3 - SBAR form ms3 - Leadership Thank You Letter ms3 Signatures: Dispatcher [employer] EDMS Ghazal Yun RN RN Santos Rod DO DO ms3 Danni Peace RN RN ha1 Lakeshia Miranda RN RN cm10 Corrections: (The following items were deleted from the chart) 19: 12:18 C.difficile [facility] Ag \T\ Toxin AB+LAB.BRZ ordered. EDMS EDMS :26 12:22 C.difficile [facility] Ag \T\ Toxin AB+LAB.BRZ ordered. EDMS EDMS : 16:50 C.difficile [facility] Ag \T\ Toxin AB+LAB.BRZ reviewed. ms3 EDMS 20:40 19:08 Telemetry/MedSurg (observation) ms3 mw 20:40 19:08 ms3 mw 10/15 06:08 10/14 20:40 [facility] ER HOLD mw mw 10/15 06:08 10/14 20:40 ERHOLD- mw mw
--- NOTE | 2022-10-14 19:09 | ER ---
Nurse's Notes [facility] Name: Madiha Breaux Age: 87 yrs Sex: Female : 1935 Arrival Date: 10/14/2022 Time: 11:40 Bed 20 Private MD: Diagnosis: Diarrhea, unspecified;History of C. Diff Presentation: 10/14 12:10 Chief complaint: Patient states: "I have C-diff again." Pt was in the hospital September for a pacemaker and was started on ABX and while in the hospital was diagnosed with C-diff. Pt states that the diarrhea stopped 1 week ago and started up again last night. Pt states that she has gone to the restroom 6 times, denies fever and reports abdominal pain. Coronavirus screen: Vaccine status: Patient reports being unvaccinated. Ebola Screen: Patient denies travel to an Ebola-affected area in the 21 days before illness onset. No symptoms or risks identified at this time. Initial Sepsis Screen: Does the patient meet any 2 criteria? No. Patient's initial sepsis screen is negative. Does the patient have a suspected source of infection? No. Patient's initial sepsis screen is negative. Risk Assessment: Do you want to hurt yourself or someone else? Patient reports no desire to harm self or others. Onset of symptoms was October 14, 2022. 12:10 Method Of Arrival: Wheelchair cm10 12:10 Acuity: DAMIR 3 cm10 Historical: - Allergies: 12:15 Codeine; cm10 12:15 Demerol; cm10 12:15 Fentanyl; cm10 12:15 lamital; cm10 12:15 Lidocaine; cm10 12:15 meperidine; cm10 12:15 Morphine; cm10 12:15 [place]; cm10 12:15 PENICILLINS; cm10 12:15 PORK/PORCINE PRODUCT DERIVATIVES; cm10 12:15 Sulfa (Sulfonamide Antibiotics); cm10 - Home Meds: 20:31 sertraline 25 mg oral tablet 1 tab daily [Active]; furosemide 20 mg Oral tablet 1/2 ha1 tablet [Active]; atorvastatin 10 mg oral tablet daily [Active]; zolpidem 10 mg Oral tablet every day at bedtime [Active]; losartan 25 mg oral tablet 1 tab daily [Active]; Eliquis 2.5 mg oral tablet 1 tab 2 times per day [Active]; Rexulti 1 mg oral tablet daily [Active]; - PMHx: 12:15 COPD; C-Diff; Atrial fibrillation; Pacemaker; CVA; Myocardial infarction; cm10 - Immunization history:: Adult Immunizations. - Social history:: Smoking status: Patient denies any tobacco usage or history of. Screenin:29 [facility] ED Fall Risk Assessment (Adult) History of falling in the last 3 months, kc6 including since admission Yes- single mechanical fall (1 pt) Confusion or Disorientation No (0 pts) Intoxicated or Sedated No (0 pts) Impaired Gait Yes (1 pt) Mobility Assist Device Used Yes (1 pt) Altered Elimination No (0 pt) Score/Fall Risk Level 3 or more points = High Risk. Abuse screen: Denies threats or abuse. Denies injuries from another. Nutritional screening: No deficits noted. Tuberculosis screening: No symptoms or risk factors identified. Assessment: 15:30 General: Appears in no apparent distress. comfortable, slender, Behavior is calm, kc6 cooperative, appropriate for age. Pain: Complains of pain in abdomen. Neuro: Level of Consciousness is awake, alert, obeys commands, Oriented to person, place, time, situation, Appropriate for age. Cardiovascular: Capillary refill < 3 seconds. Respiratory: Airway is patent Trachea midline Respiratory effort is even, unlabored, Respiratory pattern is regular, symmetrical. GI: Abdomen is flat, distended, Last BM was October 14, 2022. Bowel sounds present X 4 quads. Abd is soft X 4 quads Reports diarrhea, Patient currently denies nausea, vomiting. : No signs and/or symptoms were reported regarding the genitourinary system. EENT: No signs and/or symptoms were reported regarding the EENT system. Derm: No signs and/or symptoms reported regarding the dermatologic system. Skin is intact, is healthy with good turgor, Skin is pink, warm \\T\\ dry. Bruising that is yellow, on left cheek. Musculoskeletal: No signs and/or symptoms reported regarding the musculoskeletal system. Circulation, motion, and sensation intact. Capillary refill < 3 seconds, Range of motion: intact in all extremities. 16:27 Reassessment: Patient appears in no apparent distress at this time. No changes from kc6 previously documented assessment. Patient and/or family updated on plan of care and expected duration. Pain level reassessed. Patient is alert, oriented x 3, equal unlabored respirations, skin warm/dry/pink. 16:57 Reassessment: assisted pt to bedside commode. pt voided clear, yellow urine with a very kc6 small amount of brown liquid stool. unable to collect stool sample at this time, not enough for collection and mixed with urine. 17:23 Reassessment: Patient appears in no apparent distress at this time. No changes from kc6 previously documented assessment. Patient and/or family updated on plan of care and expected duration. Pain level reassessed. Patient is alert, oriented x 3, equal unlabored respirations, skin warm/dry/pink. 18:12 Reassessment: Patient appears in no apparent distress at this time. No changes from kc6 previously documented assessment. Patient and/or family updated on plan of care and expected duration. Pain level reassessed. Patient is alert, oriented x 3, equal unlabored respirations, skin warm/dry/pink. 19:25 General: Appears comfortable, Behavior is calm, cooperative. Pain: Complains of pain in ha1 abdomen Pain does not radiate. Pain currently is 4 out of 10 on a pain scale. Quality of pain is described as crampy. Neuro: Level of Consciousness is awake, alert, obeys commands, Oriented to person, place, time, situation. Cardiovascular: Heart tones S1 S2 present Patient's skin is warm and dry. Respiratory: Airway is patent Respiratory effort is even, unlabored, Respiratory pattern is regular, symmetrical. Derm: Skin is fragile, Skin is pink, warm \\T\\ dry. Musculoskeletal: Circulation, motion, and sensation intact. 10/15 07:08 Reassessment: attempted report. was informed nurse will return my call. ap3 Vital Signs: 10/14 12:10 BP 138 / 62; Pulse 95; Resp 18; Temp 98.2; Pulse Ox 96% on 3 lpm NC; Weight 45.36 kg; cm10 Height 5 ft. 0 in. ; Pain 6/10; 15:31 BP 191 / 85; Pulse 89; Resp 16 S; Temp 97.5; Pulse Ox 100% on 3 lpm NC; kc6 16:27 BP 163 / 71; Pulse 85; Resp 17 S; Pulse Ox 100% on 3 lpm NC; kc6 17:28 BP 172 / 73; Pulse 88; Resp 18 S; Pulse Ox 100% on R/A; kc6 18:13 BP 158 / 67; Pulse 82; Resp 17 S; Pulse Ox 99% on R/A; kc6 19:30 BP 170 / 72; Pulse 88; Resp 17 S; Pulse Ox 99% on 3 lpm NC; ha1 12:10 Body Mass Index 19.53 (45.36 kg, 152.4 cm) cm10 12:10 Pain Scale: Adult cm10 ED Course: 11:43 Patient arrived in ED. im 12:15 Triage completed. cm10 12:16 Arm band placed on Patient placed in waiting room, in a wheelchair. cm10 12:18 Santos Rod DO is Attending Physician. ms3 12:31 CMP Sent. bc6 12:31 CBC with Diff Sent. bc6 12:31 Inserted saline lock: 22 gauge in right forearm, using aseptic technique. Blood bc6 collected. 15:17 Melodie Ayers, RN is Primary Nurse. kc6 15:30 Patient has correct armband on for positive identification. Bed in low position. Call kc6 light in reach. Side rails up X2. Adult w/ patient. Client placed on continuous cardiac and pulse oximetry monitoring. NIBP monitoring applied. 19:08 Siobhan Barillas MD is Hospitalizing Provider. ms3 10/15 07:50 Provided Education on: need for admit. ap3 07:50 No provider procedures requiring assistance completed. Patient admitted, IV remains in ap3 place. Administered Medications: No medications were administered Medication: 07:50 VIS not applicable for this client. ap3 Outcome: 10/14 19:08 Decision to Hospitalize by Provider. ms3 10/15 07:50 Admitted to Med/surg ap3 Condition: good Instructed on the need for admit. 08:05 Patient left the ED. ap3 Signatures: Sheila Locke RN RN ap3 Santos Rod DO DO ms3 Danni Peace RN RN ha1 Melodie Ayers, RN RN kc6 Alexa Murray bc6 Keturah Wells Clarissa, RN RN cm10 Corrections: (The following items were deleted from the chart) 10/14 12:17 12:16 Arm band placed on Patient placed in an exam room, on a stretcher, cm10 cm10
[2022-10-14] MEDS ORDERED: ALBUTEROL 2.5 MG/3 ML NEB SOL NEB PRN (19:23)
[2022-10-14] MEDS ORDERED: IPRATROPIUM BROM 0.5MG/2.5ML NEB PRN (19:23)
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
[2022-10-14] MEDS: NA CHLORIDE 0.9% 1,000 ML IV SCH (20:00)
[2022-10-14] MEDS ORDERED: LACTOBACILLUS ACIDOPHILUS MC SCH (21:00)
[2022-10-14] MEDS: carvediloL 3.125 MG TAB PO SCH (21:00)
[2022-10-14] MEDS: APIXABAN 2.5 MG TABLET PO SCH (21:00)
[2022-10-14] MEDS ORDERED: NA CHLORIDE 0.9% 1,000 ML ONE (22:35)
[2022-10-14 23:42] VITALS: BMI 19.5
[2022-10-15] MEDS: METRONIDAZOLE 500mg IVPB 500 MG/100 ML BAG IV SCH ×3 (01:00→17:40)
[2022-10-15] MEDS ORDERED: METRONIDAZOLE 500mg IVPB 500 MG/100 ML BAG IV ONE (01:39)
[2022-10-15 05:17] LABS: Absolute Lymphocytes (CBC) 1.2 K/uL (0.7-4.9); Hematocrit 28.1 % (36.0-45.0); Lymphocytes % 24.7 % (15.3-44.8); MCV 91.4 fL (80-100); MPV 7.9 fL (7.6-11.3); Platelets 160 thou/uL (152-406); RBC Red Blood Cell Count 3.07 M/uL (3.86-4.86)
[2022-10-15 05:33] LABS: Magnesium 1.9 mg/dL (1.6-2.4); Potassium 3.3 mEq/L (3.5-5.1)
[2022-10-15] MEDS ORDERED: KCL 20 MEQ/100 mL IVPB 20 MEQ/100 ML BAG IV SCH (08:00)
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
[2022-10-15] MEDS: Banana Flakes/T-Galactooligos 1 Dose Packet PO SCH ×2 (09:00→20:40)
[2022-10-15] MEDS: APIXABAN 2.5 MG TABLET PO SCH ×2 (10:52→20:40)
[2022-10-15] MEDS: carvediloL 3.125 MG TAB PO SCH ×2 (10:52→17:39)
[2022-10-15] MEDS: NA CHLORIDE 0.9% 1,000 ML IV SCH (13:15)
[2022-10-15] MEDS ORDERED: SERTRALINE HCL 50 MG TAB PO SCH (16:00)
[2022-10-15] MEDS: SERTRALINE HCL 50 MG TAB PO SCH (17:40)
[2022-10-15] MEDS ORDERED: ZOLPIDEM TARTRATE 10 MG TABLET PO PRN (20:59)
[2022-10-15] MEDS ORDERED: BREXPIPRAZOLE 1 MG PO SCH (21:05)
[2022-10-15 21:18] VITALS: O2SAT 97
[2022-10-15] MEDS: LOSARTAN POTASSIUM 50 MG TABLET PO SCH (21:35)
[2022-10-16] MEDS: METRONIDAZOLE 500mg IVPB 500 MG/100 ML BAG IV SCH ×2 (01:49→08:13)
[2022-10-16 05:30] LABS: C.diff Antigen/Toxin Ag neg : Tox neg (NEG : NEG)
[2022-10-16] MEDS ORDERED: METOPROLOL TAR 25 MG TAB PO SCH (06:00)
[2022-10-16] MEDS: SERTRALINE HCL 50 MG TAB PO SCH (08:13)
[2022-10-16] MEDS: LOSARTAN POTASSIUM 50 MG TABLET PO SCH (08:13)
[2022-10-16] MEDS: APIXABAN 2.5 MG TABLET PO SCH (08:16)
[2022-10-16] MEDS: Banana Flakes/T-Galactooligos 1 Dose Packet PO SCH (08:16)
[2022-10-16 09:11] VITALS: BP 160/64; TEMP 97.7
[2022-10-16] MEDS ORDERED: ALBUTEROL 2.5 MG/3 ML NEB SOL NEB PRN (10:00)
--- NOTE | 2022-11-08 03:43 | P.DS ---
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 She reports unable to obtain antibiotics due to over priced, she reports having C. difficile x4 over the last few months. Reports diarrhea over the last 2 days progressively getting worse, reports associated generalized weakness. She has had colitis before was diagnosed by a GI specialist in [place] with a diagnosis of diverticulitis and colitis. She also has a history of C. difficile that was again diagnosed in November last year patient denies any fever nausea or vomiting has general abdominal discomfort Hospital Course: Patient was worked up for her diarrhea. C diff was negative. Diarrhea resolved. Patient is doing well and clinical symptoms are stable. At this time, patient is stable for discharge home. Vital Signs/Physical Exam: Temp Pulse Resp BP Pulse Ox 97.7 F 73 16 160/64 H 98 10/16/22 08:00 10/16/22 08:00 10/16/22 08:00 10/16/22 08:00 10/16/22 08:00 General: Alert, In no apparent distress, Oriented x3 Laboratory Data at Discharge: WBC 4.80 thou/uL (4.3-10.9) 10/15/22 05:05 Hgb 9.5 g/dL (12.0-15.0) L D 10/15/22 05:05 Hct 28.1 % (36.0-45.0) L 10/15/22 05:05 Plt Count 160 thou/uL (152-406) 10/15/22 05:05 Sodium 143 mEq/L (136-145) 10/15/22 05:05 Potassium 3.3 mEq/L (3.5-5.1) L 10/15/22 05:05 BUN 13 mg/dL (7-18) 10/15/22 05:05 Creatinine 0.66 mg/dL (0.55-1.02) 10/15/22 05:05 Glucose 95 mg/dL (74-106) 10/15/22 05:05 Magnesium 1.9 mg/dL (1.6-2.4) 10/15/22 05:05 Total Bilirubin 0.6 mg/dL (0.2-1.0) 10/14/22 12:30 AST 17 U/L (15-37) 10/14/22 12:30 ALT 15 U/L (13-56) 10/14/22 12:30 Alkaline Phosphatase 75 U/L (45-117) 10/14/22 12:30 Home Medications: Atorvastatin Calcium [Lipitor*] 10 mg PO BEDTIME 08/19/21 Budesonide/Formoterol Fumarate [Symbicort 80-4.5 Mcg Inhaler] 2 puff IH Q4HP PRN 08/25/21 Albuterol Inhaler [Ventolin Inhaler*] 2 puff IH Q6H PRN 08/21/22 Apixaban [Eliquis] 2.5 mg PO BID 08/21/22 Carvedilol [Coreg] 3.125 mg PO BID 08/21/22 Cholecalciferol (Vitamin D3) [Vitamin D3] 2,000 unit PO DAILY 08/21/22 Losartan Potassium [Cozaar] 12.5 mg PO BID 08/21/22 Sertraline [Zoloft*] 25 mg PO DAILY 08/21/22 Zolpidem Tartrate 10 mg PO BEDTIME 08/21/22 Brexpiprazole [Rexulti] 1 mg PO BEDTIME 08/22/22 Albuterol Sulfate [Proair Hfa] 8.5 gm IH Q6HP PRN 08/24/22 Fidaxomicin [Dificid] 200 mg PO BID 4 Days #8 tab 08/29/22 Lactobacillus Acidophilus [Acidophilus Lactobacillus] 500 gm MC BID 7 Days #14 pkt 08/29/22 Nutritional Supplement/Fiber [Ensure Plant-Based Protein Vanilla] 330 ml PO BID #60 bottle 10/16/22 New Medications: Nutritional Supplement/Fiber [Ensure Plant-Based Protein Vanilla] 330 ml PO BID #60 bottle Physician Discharge Instructions: -DC IV and DC home -Follow-up with PCP in 1 to 2 weeks -Follow-up with GI in 1 to 2 weeks -Please call Dr. Barillas at [phone] if any questions regarding hospital stay -Please call nursing station at [phone] if any nursing or medication questions -Return to the emergency room if symptoms worsen Diet: AHA Activity: Fall precautions Followup: ROCIO ESPINOZA [Primary Care Provider] - 1-2 Weeks (call to schedule an appointment) Luiz Alcocer MD [ASSOCIATE-ACTIVE - CAN ADMIT] - 1-2 Weeks (call to schedule an appointment) Time spent managing pt's care (in minutes): 35
--- NOTE | 2022-11-08 03:45 | P.PN ---
Subjective Date of Service: 10/15/22 Patient denies any new complaints. Symptoms are improved. Awaiting for C diff. Review of Systems 10-point ROS is otherwise unremarkable Physical Examination - Vital Signs Temperature: 97.7 F Blood Pressure: 160/64 Pulse: 73 Respirations: 16 Pulse Ox (%): 98 - Physical Exam General: Alert, In no apparent distress HEENT: Atraumatic, PERRLA, EOMI Neck: Supple, JVD not distended Respiratory: Clear to auscultation bilaterally, Normal air movement Cardiovascular: Regular rate/rhythm, Normal S1 S2 Gastrointestinal: Normal bowel sounds, No tenderness Musculoskeletal: No tenderness Integumentary: No rashes Neurological: Normal speech, Normal tone, Normal affect Lymphatics: No axilla or inguinal lymphadenopathy - Studies Medications List Reviewed: Yes Assessment & Plan - Problems (Diagnosis) (1) Colitis Status: Acute (2) CHF (congestive heart failure) Status: Chronic Qualifiers: Heart failure type: diastolic Heart failure chronicity: chronic Qualified Code(s): I50.32 - Chronic diastolic (congestive) heart failure (3) COPD (chronic obstructive pulmonary disease) Status: Chronic Qualifiers: COPD type: chronic bronchitis Chronic bronchitis type: simple Qualified Code(s): J41.0 - Simple chronic bronchitis (4) Dementia Status: Chronic Qualifiers: Dementia type: unspecified type Qualified Code(s): F03.90 - Unspecified dementia, unspecified severity, without behavioral disturbance, psychotic disturbance, mood disturbance, and anxiety (5) HLD (hyperlipidemia) Status: Chronic Qualifiers: Hyperlipidemia type: unspecified Qualified Code(s): E78.5 - Hyperlipidemia, unspecified (6) HTN (hypertension) Status: Chronic Qualifiers: Hypertension type: primary hypertension Qualified Code(s): I10 - Essential (primary) hypertension (7) History of CVA (cerebrovascular accident) Status: Chronic (8) History of [place] (myocardial infarction) Status: Chronic - Plan Plan: 1. Continue with IV fluids 2. Continue monitoring patient's abdominal complaints 3. C diff was negative 4. Anticipate discharge in the morning if patient's clinical symptoms continue to improve Discharge Plan: Home Plan to discharge in: 24 Hours - Advance Directives Does patient have a Living Will: Yes Does patient have a Durable POA for Healthcare: No - Code Status/Comfort Care Code Status: Full Code Physician Review: Patient Assessed, Agree with Above Assessment and Plan Critical Care: No Time Spent Managing PTS Care (In Minutes): 35
== END 2022-10-16 14:20 | disposition home or self-care (01) | DRG 392 ==
LOC: ER 11:40 → ERHOLD 19:19 → 2ND 10-15 06:15 → OBSVTOIN 10-16 11:37
PROVIDERS: ADMIT Hospitalist; ATTEND Hospitalist
DX: K52.9 Noninfective gastroenteritis and colitis, unspecified (principal); E44.1 Mild protein-calorie malnutrition; I50.32 Chronic diastolic (congestive) heart failure; Z68.1 Body mass index [BMI] 19.9 or less, adult; J44.9 Chronic obstructive pulmonary disease, unspecified; I11.0 Hypertensive heart disease with heart failure; I48.91 Unspecified atrial fibrillation; E78.5 Hyperlipidemia, unspecified; F03.90 Unspecified dementia, unspecified severity, without behavioral disturbance, psychotic disturbance, mood disturbance, and anxiety; I25.10 Atherosclerotic heart disease of native coronary artery without angina pectoris; I25.2 Old myocardial infarction; R30.0 Dysuria; Z95.0 Presence of cardiac pacemaker; Z88.5 Allergy status to narcotic agent; Z88.0 Allergy status to penicillin; Z88.2 Allergy status to sulfonamides; Z79.01 Long term (current) use of anticoagulants; Z86.73 Personal history of transient ischemic attack (TIA), and cerebral infarction without residual deficits; Z91.014 Allergy to mammalian meats; Z79.899 Other long term (current) drug therapy; Z90.710 Acquired absence of both cervix and uterus; Z87.891 Personal history of nicotine dependence
CPT/HCPCS: 36415; 80048; 80053; 83735; 85025; 87177; 87209; 87324; 99285; G0378; J3480; J7030

== ENCOUNTER 2023-02-12 11:48 | Inpatient (IN) | payer OTHER ==
--- OUTSIDE RECORDS SUMMARY | 2023-02-12 11:58 | XMS REPORT | Continuity of Care Document ---
Author Name Unknown Address [address] [facility] [address] [place] [address] [facility] Address [address] [facility] [place] [address] Care Team Providers Care Cupola Liner Helper Name Role Phone DENNIS HARRIS Primary Care Physician UnaLAWANDA Camacho Attending Clinician Unavailable LAWANDA ALCARAZ Attending Clinician Unavailable Lawanda Alcaraz DO Attending Clinician [phone] Doctor Unassigned, Blue Attending Clinician U reza Therapist, Adc Respiratory Attending Clinician U Una Pizarro MD Attending Clinician [phone] UNA BELTRAN Attending Clinician Unavailable DANG ESTRELLA Attending Clinician Patrica Estrella MD, Dang Meza Attending Clinician + [phone] MICHA LYNNE Attending Clinician Unavailable MICHA LYNNE Attending Clinician Unavailable Katya Baum RN Attending Clinician Unavailable Brittanie Sepulveda Attending Clinician [phone] Padma Danielson MD Attending Clinician [phone] MAO Attending Clinician UnavailDANG Grayson Admitting Clinician Dang Perez MD Admitting Clinician + [phone] MICHA LYNNE Admitting Clinician Unavailable Padma Danielson MD Admitting Clinician [phone] MAO Admitting Clinician Unavaila ricardo Payers Payer Name Policy Type Policy Number Effective Date Expirati on Date Source [employer] MED[employer]VANTAGE [id number] 2021 00:00:00 Problems Condition Name Condition Details Condition Category Status Onset Date Resolution Date Last Treatment Date Treating Clinician Comments Source Rectal bleeding Rectal bleeding Disease Active 10-02 00:00: 00 [facility] Allergies, Adverse Reactions, Alerts Allergy Name Allergy Type Status Severity Reaction(s) Onset Date Inactive Date Treating Clinician Comments Source PORK DERIVED (PORCINE ) DRUG INGREDI Active Hives 10-03 00:00: 00 [facility] Pork Derived (Porcine ) Propensi ty to adverse reaction s Active Hives 10-03 00:00: 00 Eating pork gave her hives as a child [facility] HYDROCOD ONE DRUG INGREDI Active N/V 10-02 00:00: 00 [facility] FENTANYL DRUG INGREDI Active Other-Cmnt 10-02 00:00: 00 [facility] Codeine Propensi ty to adverse reaction s Active Nausea and/or Vomiting 10-02 00:00: 00 [facility] Meperidi ne Propensi ty to adverse reaction s Active Nausea and/or Vomiting 10-02 00:00: 00 [facility] Fentanyl Propensi ty to adverse reaction s Active Other - See comments 10-02 00:00: 00 "Put me in a coma" [facility] Hydrocod one Propensi ty to adverse reaction s Active Nausea and/or Vomiting 10-02 00:00: 00 [facility] Penicill ins Propensi ty to adverse reaction s Active Hives 10-02 00:00: 00 [facility] Sulfa (Sulfona mide Antibiot ics) Propensi ty to adverse reaction s Active Other - See comments 10-02 00:00: 00 Lethargy, "They can't wake me up" [facility] MEPERIDI NE DRUG INGREDI Active N/V 10-02 00:00: 00 [facility] PENICILL INS Drug Class Active Hives 10-02 00:00: 00 [facility] SULFA (SULFONA MIDE ANTIBIOT ICS) Drug Class Active Other-Cmnt 10-02 00:00: 00 [facility] CODEINE DRUG INGREDI Active N/V 10-02 00:00: 00 [facility] TRAMADOL DRUG INGREDI Active Med N/V 2017-02 00:00: 00 [facility] Tramadol Propensi ty to adverse reaction s Active Nausea and/or Vomiting 2017-02 0 00:00: 00 Hallucina tions [facility] NO KNOWN ALLERGIE S Drug Class Active [facility] Social History Social Habit Start Date Stop Date Quantity Comments Source History of tobacco use Cigarette Smoker [facility] Gender identity [facility] Exposure to SARS-CoV-2 (event) 2022-04-04 00:00:00 2022-04-14 12:01:00 Not sure [facility] Alcohol intake 2022-01-14 00:00:00 2022-01-14 00:00:00 Ex-drinker (finding) [facility] History of Social function 2022-01-13 00:00:00 2022-01-13 00:00:00 [facility] Tobacco use and exposure 2022-01-08 00:00:00 2022-01-08 00:00:00 Smokeless tobacco non-user [facility] History SDOH Food Worry 2021-10-06 00:00:00 2021-10-06 00:00:00 1 [facility] History SDOH Food Scarcity 2021-10-06 00:00:00 2021-10-06 00:00:00 1 [facility] History SDOH Transport Med 2021-10-06 00:00:00 2021-10-06 00:00:00 2 [facility] History SDOH Transport Non-Med 2021-10-06 00:00:00 2021-10-06 00:00:00 2 [facility] Sex Assigned At 1935 00:00:00 1935 00:00:00 [facility] Smoking Status Start Date Stop Date Source Never smoked tobacco [facility] Ex-smoker 2021-10-02 00:00:00 2021-10-02 00:00:00 U [facility] Medications Ordered Medication Name Filled Medication Name Start Date Stop Date Current Medication? Ordering Clinician Indication Dosage Frequency Signature (SIG) Comments Components Source albuterol 90 mcg/actuati on inhaler 08-31 00:00: 00 Yes [id number] 2{puff} Inhale 2 Puffs every 6 (six) hours as needed for Wheezing or Shortness of Breath. [facility] albuterol 90 mcg/actuati on inhaler 08-31 00:00: 00 Yes [id number] 2{puff} Inhale 2 Puffs every 6 (six) hours as needed for Wheezing or Shortness of Breath. [facility] water for irrigation irrigation solution 2021-02 16:37: 00 01-13 17:56 :43 No PRN, Starting on Tue01/13/22 at 1037, Until Tue01/13/22 at 1156, Routine, Intra-op [facility] simethicone (GAS RELIEF (SIMETHICON E)) 40 mg/0.6 mL drops 2021-02 16:37: 00 01-13 17:56 :43 No PRN, Starting on Tue01/13/22 at 1037, Until Tue01/13/22 at 1156, Routine, Intra-op [facility] lactated ringers IV infusion 1,000 mL 2021-02 16:15: 00 01-13 16:10 :00 No 1000mL at 42 mL/hr, 1,000 mL, IV Infusion, ONCE, 1 dose, On Tue01/13/22 at 1015, Routine, DSU Pre-op [facility] lactated ringers IV infusion 1,000 mL 2021-02 16:15: 00 01-13 16:10 :00 No 1000mL at 42 mL/hr, 1,000 mL, IV Infusion, ONCE, 1 dose, On Tue01/13/22 at 1015, Routine, DSU Pre-op [facility] zolpidem 5 mg tablet 2021-02 13:24: 06 Yes 5mg Take 5 mg by mouth at bedtime. [facility] brexpiprazo le (REXULTI) 1 mg Tab 2021-02 13:24: 06 Yes 1mg Take 1 mg by mouth daily. [facility] hydrALAZINE 25 mg tablet 2021-02 13:24: 06 Yes 25mg Take 25 mg by mouth in the morning and 25 mg in the evening. [facility] FLUoxetine 20 mg capsule 2021-02 13:24: 06 Yes 20mg Take 20 mg by mouth in the morning. [facility] atorvastati n 10 mg tablet 2021-02 13:24: 06 Yes 10mg Take 10 mg by mouth at bedtime. [facility] albuterol 0.63 mg/3 mL nebulizer solution 2021-02 13:24: 06 Yes 1{ampul e} Inhale 1 Ampule as needed. [facility] albuterol 90 mcg/actuati on inhaler 2021-02 13:24: 06 Yes 2{puff} Inhale 2 Puffs as needed. [facility] ARIPiprazol e 2 mg tablet 2021-02 13:24: 06 Yes 2mg Take 2 mg by mouth in the morning. [facility] carvediloL 3.125 mg tablet 2021-02 13:24: 06 Yes 3.125mg Take 3.125 mg by mouth in the morning and 3.125 mg in the evening. Take with meals. [facility] furosemide 20 mg tablet 2021-02 13:24: 06 Yes 10mg Take 10 mg by mouth every other day. [facility] apixaban (ELIQUIS) 2.5 mg tablet 2021-02 13:24: 06 Yes 2.5mg Take 2.5 mg by mouth in the morning and 2.5 mg in the evening. [facility] zolpidem 5 mg tablet 2021-02 13:24: 06 Yes 5mg Take 5 mg by mouth at bedtime. [facility] brexpiprazo le (REXULTI) 1 mg Tab 2021-02 13:24: 06 Yes 1mg Take 1 mg by mouth daily. [facility] hydrALAZINE 25 mg tablet 2021-02 13:24: 06 Yes 25mg Take 25 mg by mouth in the morning and 25 mg in the evening. [facility] FLUoxetine 20 mg capsule 2021-02 13:24: 06 Yes 20mg Take 20 mg by mouth in the morning. [facility] atorvastati n 10 mg tablet 2021-02 13:24: 06 Yes 10mg Take 10 mg by mouth at bedtime. [facility] albuterol 0.63 mg/3 mL nebulizer solution 2021-02 13:24: 06 Yes 1{ampul e} Inhale 1 Ampule as needed. [facility] albuterol 90 mcg/actuati on inhaler 2021-02 13:24: 06 Yes 2{puff} Inhale 2 Puffs as needed. [facility] ARIPiprazol e 2 mg tablet 2021-02 13:24: 06 Yes 2mg Take 2 mg by mouth in the morning. [facility] carvediloL 3.125 mg tablet 2021-02 13:24: 06 Yes 3.125mg Take 3.125 mg by mouth in the morning and 3.125 mg in the evening. Take with meals. [facility] furosemide 20 mg tablet 2021-02 13:24: 06 Yes 10mg Take 10 mg by mouth every other day. [facility] apixaban (ELIQUIS) 2.5 mg tablet 2021-02 13:24: 06 Yes 2.5mg Take 2.5 mg by mouth in the morning and 2.5 mg in the evening. [facility] zolpidem 5 mg tablet 2021-02 13:24: 06 Yes 5mg Take 5 mg by mouth at bedtime. [facility] brexpiprazo le (REXULTI) 1 mg Tab 2021-02 13:24: 06 Yes 1mg Take 1 mg by mouth daily. [facility] hydrALAZINE 25 mg tablet 2021-02 13:24: 06 Yes 25mg Take 25 mg by mouth in the morning and 25 mg in the evening. [facility] FLUoxetine 20 mg capsule 2021-02 13:24: 06 Yes 20mg Take 20 mg by mouth in the morning. [facility] atorvastati n 10 mg tablet 2021-02 13:24: 06 Yes 10mg Take 10 mg by mouth at bedtime. [facility] albuterol 0.63 mg/3 mL nebulizer solution 2021-02 13:24: 06 Yes 1{ampul e} Inhale 1 Ampule as needed. [facility] albuterol 90 mcg/actuati on inhaler 2021-02 13:24: 06 Yes 2{puff} Inhale 2 Puffs as needed. [facility] ARIPiprazol e 2 mg tablet 2021-02 13:24: 06 Yes 2mg Take 2 mg by mouth in the morning. [facility] carvediloL 3.125 mg tablet 2021-02 13:24: 06 Yes 3.125mg Take 3.125 mg by mouth in the morning and 3.125 mg in the evening. Take with meals. [facility] furosemide 20 mg tablet 2021-02 13:24: 06 Yes 10mg Take 10 mg by mouth every other day. [facility] apixaban (ELIQUIS) 2.5 mg tablet 2021-02 13:24: 06 Yes 2.5mg Take 2.5 mg by mouth in the morning and 2.5 mg in the evening. [facility] zolpidem 5 mg tablet 2021-02 13:24: 06 Yes 5mg Take 5 mg by mouth at bedtime. [facility] brexpiprazo le (REXULTI) 1 mg Tab 2021-02 13:24: 06 Yes 1mg Take 1 mg by mouth daily. [facility] hydrALAZINE 25 mg tablet 2021-02 13:24: 06 Yes 25mg Take 25 mg by mouth in the morning and 25 mg in the evening. [facility] FLUoxetine 20 mg capsule 2021-02 13:24: 06 Yes 20mg Take 20 mg by mouth in the morning. [facility] atorvastati n 10 mg tablet 2021-02 13:24: 06 Yes 10mg Take 10 mg by mouth at bedtime. [facility] albuterol 0.63 mg/3 mL nebulizer solution 2021-02 13:24: 06 Yes 1{ampul e} Inhale 1 Ampule as needed. [facility] albuterol 90 mcg/actuati on inhaler 2021-02 13:24: 06 Yes 2{puff} Inhale 2 Puffs as needed. [facility] ARIPiprazol e 2 mg tablet 2021-02 13:24: 06 Yes 2mg Take 2 mg by mouth in the morning. [facility] carvediloL 3.125 mg tablet 2021-02 13:24: 06 Yes 3.125mg Take 3.125 mg by mouth in the morning and 3.125 mg in the evening. Take with meals. [facility] furosemide 20 mg tablet 2021-02 13:24: 06 Yes 10mg Take 10 mg by mouth every other day. [facility] apixaban (ELIQUIS) 2.5 mg tablet 2021-02 13:24: 06 Yes 2.5mg Take 2.5 mg by mouth in the morning and 2.5 mg in the evening. [facility] zolpidem 5 mg tablet 2021-02 13:24: 06 Yes 5mg Take 5 mg by mouth at bedtime. [facility] brexpiprazo le (REXULTI) 1 mg Tab 2021-02 13:24: 06 Yes 1mg Take 1 mg by mouth daily. [facility] hydrALAZINE 25 mg tablet 2021-02 13:24: 06 Yes 25mg Take 25 mg by mouth in the morning and 25 mg in the evening. [facility] FLUoxetine 20 mg capsule 2021-02 13:24: 06 Yes 20mg Take 20 mg by mouth in the morning. [facility] atorvastati n 10 mg tablet 2021-02 13:24: 06 Yes 10mg Take 10 mg by mouth at bedtime. [facility] albuterol 0.63 mg/3 mL nebulizer solution 2021-02 13:24: 06 Yes 1{ampul e} Inhale 1 Ampule as needed. [facility] albuterol 90 mcg/actuati on inhaler 2021-02 13:24: 06 Yes 2{puff} Inhale 2 Puffs as needed. [facility] ARIPiprazol e 2 mg tablet 2021-02 13:24: 06 Yes 2mg Take 2 mg by mouth in the morning. [facility] carvediloL 3.125 mg tablet 2021-02 13:24: 06 Yes 3.125mg Take 3.125 mg by mouth in the morning and 3.125 mg in the evening. Take with meals. [facility] furosemide 20 mg tablet 2021-02 13:24: 06 Yes 10mg Take 10 mg by mouth every other day. [facility] apixaban (ELIQUIS) 2.5 mg tablet 2021-02 13:24: 06 Yes 2.5mg Take 2.5 mg by mouth in the morning and 2.5 mg in the evening. [facility] zolpidem 5 mg tablet 2021-02 13:24: 06 Yes 5mg Take 5 mg by mouth at bedtime. [facility] brexpiprazo le (REXULTI) 1 mg Tab 2021-02 13:24: 06 Yes 1mg Take 1 mg by mouth daily. [facility] hydrALAZINE 25 mg tablet 2021-02 13:24: 06 Yes 25mg Take 25 mg by mouth in the morning and 25 mg in the evening. [facility] FLUoxetine 20 mg capsule 2021-02 13:24: 06 Yes 20mg Take 20 mg by mouth in the morning. [facility] atorvastati n 10 mg tablet 2021-02 13:24: 06 Yes 10mg Take 10 mg by mouth at bedtime. [facility] albuterol 0.63 mg/3 mL nebulizer solution 2021-02 13:24: 06 Yes 1{ampul e} Inhale 1 Ampule as needed. [facility] albuterol 90 mcg/actuati on inhaler 2021-02 13:24: 06 Yes 2{puff} Inhale 2 Puffs as needed. [facility] ARIPiprazol e 2 mg tablet 2021-02 13:24: 06 Yes 2mg Take 2 mg by mouth in the morning. [facility] carvediloL 3.125 mg tablet 2021-02 13:24: 06 Yes 3.125mg Take 3.125 mg by mouth in the morning and 3.125 mg in the evening. Take with meals. [facility] furosemide 20 mg tablet 2021-02 13:24: 06 Yes 10mg Take 10 mg by mouth every other day. [facility] apixaban (ELIQUIS) 2.5 mg tablet 2021-02 13:24: 06 Yes 2.5mg Take 2.5 mg by mouth in the morning and 2.5 mg in the evening. [facility] zolpidem 5 mg tablet 2021-02 13:24: 06 Yes 5mg Take 5 mg by mouth at bedtime. [facility] brexpiprazo le (REXULTI) 1 mg Tab 2021-02 13:24: 06 Yes 1mg Take 1 mg by mouth daily. [facility] hydrALAZINE 25 mg tablet 2021-02 13:24: 06 Yes 25mg Take 25 mg by mouth in the morning and 25 mg in the evening. [facility] FLUoxetine 20 mg capsule 2021-02 13:24: 06 Yes 20mg Take 20 mg by mouth in the morning. [facility] atorvastati n 10 mg tablet 2021-02 13:24: 06 Yes 10mg Take 10 mg by mouth at bedtime. [facility] albuterol 0.63 mg/3 mL nebulizer solution 2021-02 13:24: 06 Yes 1{ampul e} Inhale 1 Ampule as needed. [facility] albuterol 90 mcg/actuati on inhaler 2021-02 13:24: 06 Yes 2{puff} Inhale 2 Puffs as needed. [facility] ARIPiprazol e 2 mg tablet 2021-02 13:24: 06 Yes 2mg Take 2 mg by mouth in the morning. [facility] carvediloL 3.125 mg tablet 2021-02 13:24: 06 Yes 3.125mg Take 3.125 mg by mouth in the morning and 3.125 mg in the evening. Take with meals. [facility] furosemide 20 mg tablet 2021-02 13:24: 06 Yes 10mg Take 10 mg by mouth every other day. [facility] apixaban (ELIQUIS) 2.5 mg tablet 2021-02 13:24: 06 Yes 2.5mg Take 2.5 mg by mouth in the morning and 2.5 mg in the evening. [facility] zolpidem 5 mg tablet 2021-02 13:24: 06 Yes 5mg Take 5 mg by mouth at bedtime. [facility] brexpiprazo le (REXULTI) 1 mg Tab 2021-02 13:24: 06 Yes 1mg Take 1 mg by mouth daily. [facility] hydrALAZINE 25 mg tablet 2021-02 13:24: 06 Yes 25mg Take 25 mg by mouth in the morning and 25 mg in the evening. [facility] FLUoxetine 20 mg capsule 2021-02 13:24: 06 Yes 20mg Take 20 mg by mouth in the morning. [facility] atorvastati n 10 mg tablet 2021-02 13:24: 06 Yes 10mg Take 10 mg by mouth at bedtime. [facility] albuterol 0.63 mg/3 mL nebulizer solution 2021-02 13:24: 06 Yes 1{ampul e} Inhale 1 Ampule as needed. [facility] albuterol 90 mcg/actuati on inhaler 2021-02 13:24: 06 Yes 2{puff} Inhale 2 Puffs as needed. [facility] ARIPiprazol e 2 mg tablet 2021-02 13:24: 06 Yes 2mg Take 2 mg by mouth in the morning. [facility] carvediloL 3.125 mg tablet 2021-02 13:24: 06 Yes 3.125mg Take 3.125 mg by mouth in the morning and 3.125 mg in the evening. Take with meals. [facility] furosemide 20 mg tablet 2021-02 13:24: 06 Yes 10mg Take 10 mg by mouth every other day. [facility] apixaban (ELIQUIS) 2.5 mg tablet 2021-02 13:24: 06 Yes 2.5mg Take 2.5 mg by mouth in the morning and 2.5 mg in the evening. [facility] zolpidem 5 mg tablet 2021-02 13:24: 06 Yes 5mg Take 5 mg by mouth at bedtime. [facility] brexpiprazo le (REXULTI) 1 mg Tab 2021-02 13:24: 06 Yes 1mg Take 1 mg by mouth daily. [facility] hydrALAZINE 25 mg tablet 2021-02 13:24: 06 Yes 25mg Take 25 mg by mouth in the morning and 25 mg in the evening. [facility] FLUoxetine 20 mg capsule 2021-02 13:24: 06 Yes 20mg Take 20 mg by mouth in the morning. [facility] atorvastati n 10 mg tablet 2021-02 13:24: 06 Yes 10mg Take 10 mg by mouth at bedtime. [facility] albuterol 0.63 mg/3 mL nebulizer solution 2021-02 13:24: 06 Yes 1{ampul e} Inhale 1 Ampule as needed. [facility] albuterol 90 mcg/actuati on inhaler 2021-02 13:24: 06 Yes 2{puff} Inhale 2 Puffs as needed. [facility] ARIPiprazol e 2 mg tablet 2021-02 13:24: 06 Yes 2mg Take 2 mg by mouth in the morning. [facility] carvediloL 3.125 mg tablet 2021-02 13:24: 06 Yes 3.125mg Take 3.125 mg by mouth in the morning and 3.125 mg in the evening. Take with meals. [facility] furosemide 20 mg tablet 2021-02 13:24: 06 Yes 10mg Take 10 mg by mouth every other day. [facility] apixaban (ELIQUIS) 2.5 mg tablet 2021-02 13:24: 06 Yes 2.5mg Take 2.5 mg by mouth in the morning and 2.5 mg in the evening. [facility] methylpredn isolone sod succ (SOLU-MEDRO L) injection 125 mg 10-16 02:47: 00 10-16 02:51 :00 No 125mg 125 mg, Intravenou s, ONCE, 1 dose, On Dora 10/15/21 at 2200, 2 mL [facility] acetaminoph en (TYLENOL) tablet 1,000 mg 10-16 01:46: 00 10-16 02:07 :00 No 1000mg 1,000 mg, Oral, ONCE NOW, 1 dose, On Dora 10/15/21 at 2100, Routine [facility] albuterol (VENTOLIN) inhaler 2 Puff 10-16 01:45: 00 10-16 02:18 :00 No 2{puff} 2 Puff, Inhalation , ONCE, 1 dose, On Dora 10/15/21 at 2100, HIEU [facility] NaCl 0.9% (NS) bolus infusion 500 mL 10-16 01:45: 00 10-16 02:53 :00 No 500mL at 999 mL/hr, 500 mL, IV Infusion, ONCE, 1 dose, On Dora 10/15/21 at 2045, HIEU [facility] nirmatrelvi r-ritonavir (PAXLOVID, EUA,) 150-100 mg tablet 10-15 00:00: 00 10-21 04:59 :00 No [id number] 2{tbl} Take 2 tablets by mouth in the morning and 2 tablets in the evening. Do all this for 5 days. [facility] bebtelovima b, No Charge, 175 mg/2 mL (87.5 mg/mL) Soln 10-15 00:00: 00 10-16 04:59 :00 No [id number] 175mg Inject 2 mL as directed once now for 1 dose. [facility] zolpidem (AMBIEN) 5 mg tablet 10-05 17:52: 08 Yes 5mg Take 5 mg by mouth at bedtime. [facility] brexpiprazo le (REXULTI) 1 mg Tab 10-05 17:52: 08 Yes 1mg Take 1 mg by mouth daily. [facility] hydrALAZINE 25 mg tablet 10-05 17:52: 08 Yes 25mg Take 25 mg by mouth in the morning and 25 mg in the evening. [facility] FLUoxetine 10 mg capsule 10-05 17:52: 08 Yes 10mg Take 10 mg by mouth in the morning. [facility] atorvastati n (LIPITOR) 10 mg tablet 10-05 17:52: 08 Yes 10mg Take 10 mg by mouth at bedtime. [facility] zolpidem (AMBIEN) 5 mg tablet 10-05 17:52: 08 Yes 5mg Take 5 mg by mouth at bedtime. [facility] brexpiprazo le (REXULTI) 1 mg Tab 10-05 17:52: 08 Yes 1mg Take 1 mg by mouth daily. [facility] hydrALAZINE 25 mg tablet 10-05 17:52: 08 Yes 25mg Take 25 mg by mouth in the morning and 25 mg in the evening. [facility] FLUoxetine 10 mg capsule 10-05 17:52: 08 Yes 10mg Take 10 mg by mouth in the morning. [facility] atorvastati n (LIPITOR) 10 mg tablet 10-05 17:52: 08 Yes 10mg Take 10 mg by mouth at bedtime. [facility] zolpidem (AMBIEN) 5 mg tablet 10-05 17:52: 08 Yes 5mg Take 5 mg by mouth at bedtime. [facility] brexpiprazo le (REXULTI) 1 mg Tab 10-05 17:52: 08 Yes 1mg Take 1 mg by mouth daily. [facility] hydrALAZINE 25 mg tablet 10-05 17:52: 08 Yes 25mg Take 25 mg by mouth in the morning and 25 mg in the evening. [facility] FLUoxetine 10 mg capsule 10-05 17:52: 08 Yes 10mg Take 10 mg by mouth in the morning. [facility] atorvastati n (LIPITOR) 10 mg tablet 10-05 17:52: 08 Yes 10mg Take 10 mg by mouth at bedtime. [facility] zolpidem (AMBIEN) 5 mg tablet 10-05 17:52: 08 Yes 5mg Take 5 mg by mouth at bedtime. [facility] brexpiprazo le (REXULTI) 1 mg Tab 10-05 17:52: 08 Yes 1mg Take 1 mg by mouth daily. [facility] hydrALAZINE 25 mg tablet 10-05 17:52: 08 Yes 25mg Take 25 mg by mouth in the morning and 25 mg in the evening. [facility] FLUoxetine 10 mg capsule 10-05 17:52: 08 Yes 10mg Take 10 mg by mouth in the morning. [facility] atorvastati n (LIPITOR) 10 mg tablet 10-05 17:52: 08 Yes 10mg Take 10 mg by mouth at bedtime. [facility] zolpidem (AMBIEN) 5 mg tablet 10-05 17:52: 08 Yes 5mg Take 5 mg by mouth at bedtime. [facility] brexpiprazo le (REXULTI) 1 mg Tab 10-05 17:52: 08 Yes 1mg Take 1 mg by mouth daily. [facility] hydrALAZINE 25 mg tablet 10-05 17:52: 08 Yes 25mg Take 25 mg by mouth in the morning and 25 mg in the evening. [facility] FLUoxetine 10 mg capsule 10-05 17:52: 08 Yes 10mg Take 10 mg by mouth in the morning. [facility] atorvastati n (LIPITOR) 10 mg tablet 10-05 17:52: 08 Yes 10mg Take 10 mg by mouth at bedtime. [facility] zolpidem (AMBIEN) 5 mg tablet 10-05 17:52: 08 Yes 5mg Take 5 mg by mouth at bedtime. [facility] brexpiprazo le (REXULTI) 1 mg Tab 10-05 17:52: 08 Yes 1mg Take 1 mg by mouth daily. [facility] hydrALAZINE 25 mg tablet 10-05 17:52: 08 Yes 25mg Take 25 mg by mouth in the morning and 25 mg in the evening. [facility] FLUoxetine 10 mg capsule 10-05 17:52: 08 Yes 10mg Take 10 mg by mouth in the morning. [facility] atorvastati n (LIPITOR) 10 mg tablet 10-05 17:52: 08 Yes 10mg Take 10 mg by mouth at bedtime. [facility] zolpidem (AMBIEN) 5 mg tablet 10-05 17:52: 08 Yes 5mg Take 5 mg by mouth at bedtime. [facility] brexpiprazo le (REXULTI) 1 mg Tab 10-05 17:52: 08 Yes 1mg Take 1 mg by mouth daily. [facility] hydrALAZINE 25 mg tablet 10-05 17:52: 08 Yes 25mg Take 25 mg by mouth in the morning and 25 mg in the evening. [facility] FLUoxetine 10 mg capsule 10-05 17:52: 08 Yes 10mg Take 10 mg by mouth in the morning. [facility] atorvastati n (LIPITOR) 10 mg tablet 10-05 17:52: 08 Yes 10mg Take 10 mg by mouth at bedtime. [facility] apixaban (ELIQUIS) 5 mg tablet 10-05 14:13: 20 10-05 00:00 :00 No 5mg Take 5 mg by mouth in the morning and 5 mg in the evening. [facility] apixaban (ELIQUIS) tablet 2.5 mg 10-05 01:00: 00 Yes 2.5mg 2.5 mg, Oral, BID, First dose on 10/04/21 at 1999, Until Discontinu ed, Routine
Indicatio ns: Non-Valvul ar Atrial Fibrillati on [facility] budesonide- formoteroL 160-4.5 mcg/actuati on inhaler 10-05 00:00: 00 Yes [id number] 2{puff} Inhale 2 Puffs in the morning and 2 Puffs in the evening. [facility] vancomycin 125 mg capsule 10-05 00:00: 00 Yes [id number] 125mg Take 1 capsule by mouth 4 (four) times daily. [facility] budesonide- formoteroL 160-4.5 mcg/actuati on inhaler 10-05 00:00: 00 Yes [id number] 2{puff} Inhale 2 Puffs in the morning and 2 Puffs in the evening. [facility] vancomycin 125 mg capsule 10-05 00:00: 00 Yes [id number] 125mg Take 1 capsule by mouth 4 (four) times daily. [facility] budesonide- formoteroL 160-4.5 mcg/actuati on inhaler 10-05 00:00: 00 Yes [id number] 2{puff} Inhale 2 Puffs in the morning and 2 Puffs in the evening. [facility] vancomycin 125 mg capsule 10-05 00:00: 00 Yes [id number] 125mg Take 1 capsule by mouth 4 (four) times daily. [facility] budesonide- formoteroL 160-4.5 mcg/actuati on inhaler 10-05 00:00: 00 Yes [id number] 2{puff} Inhale 2 Puffs in the morning and 2 Puffs in the evening. [facility] vancomycin 125 mg capsule 10-05 00:00: 00 Yes [id number] 125mg Take 1 capsule by mouth 4 (four) times daily. [facility] budesonide- formoteroL 160-4.5 mcg/actuati on inhaler 10-05 00:00: 00 Yes [id number] 2{puff} Inhale 2 Puffs in the morning and 2 Puffs in the evening. [facility] vancomycin 125 mg capsule 10-05 00:00: 00 Yes [id number] 125mg Take 1 capsule by mouth 4 (four) times daily. [facility] budesonide- formoteroL 160-4.5 mcg/actuati on inhaler 10-05 00:00: 00 Yes [id number] 2{puff} Inhale 2 Puffs in the morning and 2 Puffs in the evening. [facility] vancomycin 125 mg capsule 10-05 00:00: 00 Yes [id number] 125mg Take 1 capsule by mouth 4 (four) times daily. [facility] budesonide- formoteroL 160-4.5 mcg/actuati on inhaler 10-05 00:00: 00 Yes [id number] 2{puff} Inhale 2 Puffs in the morning and 2 Puffs in the evening. [facility] vancomycin 125 mg capsule 10-05 00:00: 00 Yes [id number] 125mg Take 1 capsule by mouth 4 (four) times daily. [facility] budesonide- formoteroL 160-4.5 mcg/actuati on inhaler 10-05 00:00: 00 Yes [id number] 2{puff} Inhale 2 Puffs in the morning and 2 Puffs in the evening. [facility] vancomycin 125 mg capsule 10-05 00:00: 00 Yes [id number] 125mg Take 1 capsule by mouth 4 (four) times daily. [facility] budesonide- formoteroL 160-4.5 mcg/actuati on inhaler 10-05 00:00: 00 Yes [id number] 2{puff} Inhale 2 Puffs in the morning and 2 Puffs in the evening. [facility] vancomycin 125 mg capsule 10-05 00:00: 00 Yes [id number] 125mg Take 1 capsule by mouth 4 (four) times daily. [facility] budesonide- formoteroL 160-4.5 mcg/actuati on inhaler 10-05 00:00: 00 Yes [id number] 2{puff} Inhale 2 Puffs in the morning and 2 Puffs in the evening. [facility] vancomycin 125 mg capsule 10-05 00:00: 00 Yes [id number] 125mg Take 1 capsule by mouth 4 (four) times daily. [facility] budesonide- formoteroL 160-4.5 mcg/actuati on inhaler 10-05 00:00: 00 Yes [id number] 2{puff} Inhale 2 Puffs in the morning and 2 Puffs in the evening. [facility] vancomycin 125 mg capsule 10-05 00:00: 00 Yes [id number] 125mg Take 1 capsule by mouth 4 (four) times daily. [facility] budesonide- formoteroL 160-4.5 mcg/actuati on inhaler 10-05 00:00: 00 Yes [id number] 2{puff} Inhale 2 Puffs in the morning and 2 Puffs in the evening. [facility] vancomycin 125 mg capsule 10-05 00:00: 00 Yes [id number] 125mg Take 1 capsule by mouth 4 (four) times daily. [facility] budesonide- formoteroL 160-4.5 mcg/actuati on inhaler 10-05 00:00: 00 Yes [id number] 2{puff} Inhale 2 Puffs in the morning and 2 Puffs in the evening. [facility] vancomycin 125 mg capsule 10-05 00:00: 00 Yes [id number] 125mg Take 1 capsule by mouth 4 (four) times daily. [facility] budesonide- formoteroL 160-4.5 mcg/actuati on inhaler 10-05 00:00: 00 Yes [id number] 2{puff} Inhale 2 Puffs in the morning and 2 Puffs in the evening. [facility] vancomycin 125 mg capsule 10-05 00:00: 00 Yes [id number] 125mg Take 1 capsule by mouth 4 (four) times daily. [facility] budesonide- formoteroL 160-4.5 mcg/actuati on inhaler 10-05 00:00: 00 Yes [id number] 2{puff} Inhale 2 Puffs in the morning and 2 Puffs in the evening. [facility] vancomycin 125 mg capsule 10-05 00:00: 00 Yes [id number] 125mg Take 1 capsule by mouth 4 (four) times daily. [facility] budesonide- formoteroL 160-4.5 mcg/actuati on inhaler 10-05 00:00: 00 Yes [id number] 2{puff} Inhale 2 Puffs in the morning and 2 Puffs in the evening. [facility] vancomycin 125 mg capsule 10-05 00:00: 00 Yes [id number] 125mg Take 1 capsule by mouth 4 (four) times daily. [facility] apixaban 2.5 mg tablet 2021-0 10-05 00:00: 00 01-04 05:59 :00 No 1358 2.5mg Take 1 tablet by mouth in the morning and 1 tablet in the evening. Do all this for 90 days. Indication s: atrial fibrillati on [facility] apixaban 2.5 mg tablet 2021-10-05 00:00: 00 01-04 05:59 :00 No 1358 2.5mg Take 1 tablet by mouth in the morning and 1 tablet in the evening. Do all this for 90 days. Indication s: atrial fibrillati on [facility] apixaban 2.5 mg tablet 2021-10-05 00:00: 00 01-04 05:59 :00 No 1358 2.5mg Take 1 tablet by mouth in the morning and 1 tablet in the evening. Do all this for 90 days. Indication s: atrial fibrillati on [facility] apixaban 2.5 mg tablet 2021-0 10-05 00:00: 00 01-04 05:59 :00 No 1358 2.5mg Take 1 tablet by mouth in the morning and 1 tablet in the evening. Do all this for 90 days. Indication s: atrial fibrillati on [facility] apixaban 2.5 mg tablet 2021-10-05 00:00: 00 01-04 05:59 :00 No 1358 2.5mg Take 1 tablet by mouth in the morning and 1 tablet in the evening. Do all this for 90 days. Indication s: atrial fibrillati on [facility] apixaban 2.5 mg tablet 2021-0 10-05 00:00: 00 01-04 05:59 :00 No 1358 2.5mg Take 1 tablet by mouth in the morning and 1 tablet in the evening. Do all this for 90 days. Indication s: atrial fibrillati on [facility] apixaban 2.5 mg tablet 2021-0 10-05 00:00: 00 01-04 05:59 :00 No 1358 2.5mg Take 1 tablet by mouth in the morning and 1 tablet in the evening. Do all this for 90 days. Indication s: atrial fibrillati on [facility] apixaban 2.5 mg tablet 10-05 00:00: 00 01-04 05:59 :00 No 1358 2.5mg Take 1 tablet by mouth in the morning and 1 tablet in the evening. Do all this for 90 days. Indication s: atrial fibrillati on [facility] apixaban 2.5 mg tablet 10-05 00:00: 00 01-04 05:59 :00 No 1358 2.5mg Take 1 tablet by mouth in the morning and 1 tablet in the evening. Do all this for 90 days. Indication s: atrial fibrillati on [facility] vancomycin 125 mg capsule 10-05 00:00: 00 10-05 00:00 :00 No [id number] 125mg Take 1 capsule by mouth 4 (four) times daily for 10 days. [facility] zolpidem (AMBIEN) tablet 5 mg 10-04 21:45: 27 Yes 5mg 5 mg, Oral, QHSPRN, 3 doses, Starting on 10/04/21 at 1645, Until Discontinu ed, Routine, Insomnia [facility] brexpiprazo le (REXULTI) Tab 1 mg 10-04 14:00: 00 Yes 1mg 1 mg, Oral, DAILY, First dose on Tue10/04/21 at 0900, Until Discontinu ed, Routine
Medicatio n Name: rexulti
Form: Tablet
Length of Therapy: Indefinite
How soon needed (normally 72 hours needed to procure): 0-24 hrs
Juliana son for non-formul thiago use: PATIENT CURRENTLY TAKING NONFORMULA RY PRODUCT [facility] fidaxomicin (DIFICID) tablet 200 mg 10-04 13:00: 00 10-14 12:59 :00 No 200mg 200 mg, Oral, BID, 20 doses, First dose on Tue10/04/21 at 0800, Last dose on Tue10/13/21 at 2000, Routine
Reason for Anti-Infec tive: Documented Infection< br>Documen shazia Infection Site: Abdominal< br>Duratio n of Therapy: 10 days [facility] atorvastati n (LIPITOR) tablet 10 mg 10-04 02:00: 00 Yes 10mg 10 mg, Oral, QHS, First dose on [facility] 10/03/21 at 2100, Until Discontinu ed, Routine [facility] budesonide- formoteroL (SYMBICORT) 160-4.5 mcg/actuati on inhaler 2 Puff 10-04 01:00: 00 Yes 2{puff} 2 Puff, Inhalation , BID, First dose on [facility] 10/03/21 at 2000, Until Discontinu ed, Routine [facility] zolpidem (AMBIEN) tablet 5 mg 10-03 22:04: 06 10-04 02:54 :00 No 5mg 5 mg, Oral, QHSPRN, 1 dose, Starting on [facility] 10/03/21 at 1704, Until Discontinu ed, Routine, Insomnia [facility] ipratropium -albuteroL (DUONEB) 0.5 mg-3 mg(2.5 mg base)/3 mL nebulizer solution 3 mL 10-03 14:32: 09 Yes 3mL 3 mL, Inhalation , TIDPRN, Starting on Tue10/03/21 at 0932, Until Discontinu ed, Routine, Wheezing, Shortness of Breath [facility] pantoprazol e (PROTONIX) injection 40 mg 10-03 14:15: 00 Yes 40mg 40 mg, Slow IV Push, Q12H, First dose (after last modificati on) on [facility] 10/03/21 at 0915, Until Discontinu ed [facility] FLUoxetine (PROZAC) capsule 10 mg 10-03 14:00: 00 Yes 10mg 10 mg, Oral, DAILY, First dose on [facility] 10/03/21 at 0900, Until Discontinu ed, Routine [facility] pantoprazol e (PROTONIX) EC tablet 40 mg 10-03 14:00: 00 10-03 13:58 :02 No 40mg 40 mg, Oral, DAILY, First dose on 10/03/21 at 0900, Until Discontinu ed, Routine [facility] ARIPiprazol e (ABILIFY) tablet 5 mg 10-03 14:00: 00 10-03 21:35 :33 No 5mg 5 mg, Oral, DAILY, First dose on 10/03/21 at 0900, Until Discontinu ed, Routine [facility] metroNIDAZO LE (FLAGYL) tablet 250 mg 10-03 13:00: 00 10-04 12:35 :06 No 250mg 250 mg, Oral, Q12H, 20 doses, First dose on 10/03/21 at 0800, Last dose on Tue10/12/21 at 2000, Routine
Reason for Anti-Infec tive: Documented Infection< br>Documen shazia Infection Site: Abdominal< br>Duratio n of Therapy: 10 days [facility] ciprofloxac in HCl (CIPRO) tablet 500 mg 10-03 13:00: 00 10-04 12:35 :06 No 500mg 500 mg, Oral, BID, 20 doses, First dose on 10/03/21 at 0800, Last dose on Tue10/12/21 at 2000, HIEU
Re ason for Anti-Infec tive: Empiric Therapy for Suspected Infection< br>Empiric Therapy Site: Abdominal< br>Duratio n of therapy: 5 days [facility] zolpidem (AMBIEN) tablet 5 mg 10-03 03:00: 00 10-03 03:29 :00 No 5mg 5 mg, Oral, QHS, 1 dose, First dose (after last modificati on) on Tue10/02/21 at 2200, Routine [facility] acetaminoph en (TYLENOL) tablet 650 mg 10-03 02:57: 09 Yes 650mg 650 mg, Oral, Q6HPRN, Starting on Tue10/02/21 at 2157, Until Discontinu ed, Routine, Pain (scale 1-3) [facility] iopamidol (ISOVUE 370-500 mL) injection 60 mL 10-02 22:30: 00 10-02 22:30 :00 No [id number] 60mL 60 mL, Intravenou s, ONCE, 1 dose, On Tue10/02/21 at 1730, Routine [facility] pantoprazol e (PROTONIX) 40 mg in NaCl 0.9% (NS) 20 mL syringe 10-02 21:30: 00 10-02 21:32 :00 No 40mg 40 mg, IV Push, ONCE, 1 dose, On Tue10/02/21 at 1630, Administer over 2 Minutes, 20 mL [facility] Vital Signs Vital Name Observation Time Observation Value Comments S ource Systolic blood pressure 2022-08-31 16:06:00 166 mm[Hg] [facility] Diastolic blood pressure 2022-08-31 16:06:00 61 mm[Hg] [facility] Heart rate 2022-08-31 16:06:00 69 /min [facility] Respiratory rate 2022-08-31 16:06:00 17 /min [facility] Body height 2022-08-31 16:06:00 152.4 cm [facility] Body weight 2022-08-31 16:06:00 46.267 kg [facility] BMI 2022-08-31 16:06:00 19.92 kg/m2 [facility] Oxygen saturation in Arterial blood by Pulse oximetry 2022-08-31 16:06:00 95 /min [facility] Systolic blood pressure 2022-01-13 18:10:00 170 mm[Hg] [facility] Diastolic blood pressure 2022-01-13 18:10:00 60 mm[Hg] [facility] Heart rate 2022-01-13 18:10:00 78 /min [facility] Respiratory rate 2022-01-13 18:10:00 18 /min [facility] Oxygen saturation in Arterial blood by Pulse oximetry 2022-01-13 18:10:00 94 /min [facility] Body temperature 2022-01-13 17:40:00 36.17 Bel [facility] Body weight 2022-01-08 18:00:00 52.164 kg [facility] BMI 2022-01-08 18:00:00 22.46 kg/m2 [facility] Systolic blood pressure 2022-01-13 17:50:00 158 mm[Hg] [facility] Diastolic blood pressure 2022-01-13 17:50:00 62 mm[Hg] [facility] Heart rate 2022-01-13 17:50:00 77 /min [facility] Respiratory rate 2022-01-13 17:50:00 13 /min [facility] Oxygen saturation in Arterial blood by Pulse oximetry 2022-01-13 17:50:00 95 /min [facility] Body temperature 2022-01-13 17:40:00 36.17 [facility] Body weight 2022-01-08 18:00:00 52.164 kg [facility] BMI 2022-01-08 18:00:00 22.46 kg/m2 [facility] Systolic blood pressure 2021-10-16 02:55:00 137 mm[Hg] [facility] Diastolic blood pressure 2021-10-16 02:55:00 53 mm[Hg] [facility] Heart rate 2021-10-16 02:55:00 67 /min [facility] Respiratory rate 2021-10-16 02:55:00 14 /min [facility] Oxygen saturation in Arterial blood by Pulse oximetry 2021-10-16 02:55:00 93 /min [facility] Body temperature 2021-10-16 00:49:00 38.06 Bel [facility] Body height 2021-10-16 00:49:00 152.4 cm [facility] Body weight 2021-10-16 00:49:00 55.339 kg [facility] BMI 2021-10-16 00:49:00 23.83 kg/m2 [facility] Systolic blood pressure 2021-10-05 20:21:00 159 mm[Hg] [facility] Diastolic blood pressure 2021-10-05 20:21:00 64 mm[Hg] [facility] Heart rate 2021-10-05 20:21:00 69 /min [facility] Body temperature 2021-10-05 20:21:00 36.28 Bel [facility] Respiratory rate 2021-10-05 20:21:00 18 /min [facility] Oxygen saturation in Arterial blood by Pulse oximetry 2021-10-05 20:21:00 96 /min [facility] Body height 2021-10-03 03:00:00 152.4 cm [facility] Body weight 2021-10-03 03:00:00 54.432 kg [facility] BMI 2021-10-03 03:00:00 23.44 kg/m2 [facility] Procedures Procedure Date / Time Performed Performing Clinician Source NO SHOW OR MISSED APPOINTMEN T POLICY ACKNOWLEDGEMENT 2022-08-31 15:26:16 Doctor Unassigned, Blue [facility] ASSIGNMENT OF BENEFITS 2022-08-31 15:25:46 Doctor Unassigned, Blue [facility] REFERRAL- REQUEST/RESPONSE 2022-06-30 05:01:00 Doctor Unassigned, Blue [facility] ASSIGNMENT OF BENEFITS 2022-04-14 17:43:44 Doctor Unassigned, Blue [facility] COLONOSCOPY (ENDO) 2022-01-13 17:07:41 Allyson Ortega [facility] COLONOSCOPY (ENDO) 2022-01-13 17:07:41 Allyson Ortega [facility] COLONOSCOPY 2022-01-13 17:01:00 Dang Estrella [facility] PATIENT QUESTIONNAIRE 2022-01-13 06:01:00 Doctor Unassigned, Blue [facility] EXTERNAL PROVIDER RECORDS 2021-12-28 06:01:00 Doctor Unassigned, Blue [facility] EXTERNAL PROVIDER RECORDS 2021-12-28 06:01:00 Doctor Unassigned, Blue [facility] EXTERNAL PROVIDER RECORDS 2021-12-25 06:01:00 Doctor Unassigned, Blue [facility] EXTERNAL PROVIDER RECORDS 2021-12-25 06:01:00 Doctor Unassigned, Blue [facility] DIRECTIVE TO PHYSICIAN 2021-10-26 05:01:00 Doctor Unassigned, Blue [facility] XR CHEST 1 VW 2021-10-16 01:40:24 Maged [facility] URINALYSIS 2021-10-16 01:26:00 Maged [facility] TROPONIN I 2021-10-16 01:09:00 Maged [facility] COMP. METABOLIC PANEL ([id number]) 2021-10-16 01:09:00 Maged [facility] CBC WITH DIFF 2021-10-16 01:09:00 Maged [facility] N-TERMINAL PRO-BNP 2021-10-16 01:09:00 Maged [facility] COVID-19 (ID NOW RAPID TESTING) 2021-10-16 01:09:00 Maged [facility] LACTIC ACID WHOLE BLOOD 2021-10-16 01:08:00 Maged [facility] CONSENT/REFUSAL FOR DIAGNOSI S AND TREATMENT 2021-10-16 00:42:00 Doctor Unassigned, Blue [facility] HOME HEALTH - OTHER 2021-10-07 05:01:00 Doctor Unassigned, Blue [facility] AUTHORIZATION FOR RELEASE OF PHI 2021-10-06 05:01:00 Doctor Unassigned, Blue [facility] MAGNESIUM 2021-10-05 09:12:00 Abdoulaye Geller [facility] BASIC METABOLIC PANEL (NA, K , CL, CO2, GLUCOSE, BUN, CREATININE, CA) 2021-10-05 09:12:00 Abdoulaye Geller [facility] CBC WITHOUT DIFF 2021-10-05 09:12:00 Abdoulaye Geller [facility] ELECTROENCEPHALOGRAM 2021-10-05 00:00:00 Abdoulaye Geller [facility] MAGNESIUM 2021-10-04 09:50:00 Yasmani Mercedes [facility] BASIC METABOLIC [facility] (NA, K , CL, CO2, GLUCOSE, BUN, CREATININE, CA) 2021-10-04 09:50:[address] [facility] CBC WITH DIFF 2021-10-04 09:50:00 [place], [facility] HB ABO GROUPING 2021-10-04 02:50:[address] [facility] CBC WITH DIFF 2021-10-04 02:49:00 [place] [facility] COMP. METABOLIC PANEL ([id number]) 2021-10-03 16:43:00 [place] [facility] CBC WITH DIFF 2021-10-03 16:43:00 [place], [facility] CLOSTRIDIUM DIFFICILE TOXIN 2021-10-03 11:15:00 Flash [facility] FECAL PATHOGENS BY PCR 2021-10-03 11:14:00 Flash [facility] OCCULT (GUAIAC) BLOOD 2021-10-03 11:13:00 Flash [facility] PROTHROMBIN TIME / INR 2021-10-03 03:52:00 Flash [facility] ACTIVATED PARTIAL THRMPLAS ANA 2021-10-03 03:52:00 Flash [facility] BASIC METABOLIC PANEL (NA, K , CL, CO2, GLUCOSE, BUN, CREATININE, CA) 2021-10-03 03:30:00 Flash [facility] CBC WITH DIFF 2021-10-03 03:30:00 Flash [facility] CT ABDOMEN PELVIS W CONTRAST 2021-10-02 21:30:36 Brittanie Pal [facility] ABORH CONFIRMATION (LAB ONLY) 2021-10-02 21:30:00 Brittanie Pal [facility] HB ECG ROUTINE & RHYTHM STRIP 2021-10-02 20:58:31 Brittanie Pal [facility] COVID-19 (ID NOW RAPID TESTING) 2021-10-02 20:47:00 Brittanie Pal [facility] LAB ONLY COVID INTERPRETATION 2021-10-02 20:47:00 Brittanie Pal [facility] COMP. METABOLIC PANEL ([id number]) 2021-10-02 20:44:00 Brittanie Pal [facility] IRON PANEL 2021-10-02 20:44:00 Yasmani Mercedes [facility] CBC WITH DIFF 2021-10-02 20:44:00 Brittanie Pal [facility] GLYCOSYLATED HEMOGLOBIN (A1C) 2021-10-02 20:44:00 Tyesha Vidales [facility] PROTHROMBIN TIME / INR 2021-10-02 20:44:00 Brittanie Pal [facility] ACTIVATED PARTIAL THRMPLAS ANA 2021-10-02 20:44:00 Brittanie Pal [facility] HB ABO GROUPING 2021-10-02 20:40:00 Brittanie Pal [facility] NOTICE OF PRIVACY PRACTICES 2021-10-02 19:48:10 Doctor Unassigned, Blue [facility] HOSPITAL ADMISSION 2021-10-02 05:01:00 Doctor Unassigned, Blue [facility] Encounters Start Date/Time End Date/Time Encounter Type Admission Type Attending [facility] Facility Care Department Encounter ID Source 2022-12-23 09:47:37 2022-12-23 09:47:37 Outpatient [facility] S[facility] [id number] Karlo F Bennie 2022-12-14 11:43:25 2022-12-14 11:43:25 Outpatient S[facility] SFA [id number] Karlo Roldan Bennie 2022-12-09 09:00:00 2022-12-09 09:00:00 Outpatient LAWANDA LEE SHIWAN [facility] [id number] [facility] 2022-11-03 11:10:16 2022-11-03 11:10:16 Outpatient SFA SFA [id number] Karlo F Bennie 2022-10-25 11:02:06 2022-10-25 11:02:06 Outpatient SFA SFA [id number] Karlo Roldan Bennie 2022-10-19 10:59:45 2022-10-19 10:59:45 Outpatient SFA [facility] [id number] Karlo Avery 2022-10-08 11:25:17 2022-10-08 11:25:17 Outpatient SFA [facility] [id number] Karlo Avery 2022-09-16 15:01:08 2022-09-16 15:01:08 Outpatient [facility] [id number] Karlo Avery 2022-08-31 10:00:00 2022-08-31 10:30:00 Office Visit Lawanda Alcaraz [facility] [id number] [facility] 2022-08-31 10:00:00 2022-08-31 10:00:00 Outpatient R LAWANDA ALCARAZ SHIMSAbigail [facility] [id number] [facility] 2022-08-31 00:00:00 2022-08-31 00:00:00 Orders Only Doctor Unassigned, Blue [id number] [facility] 2022-08-17 10:07:27 2022-08-17 10:07:27 Outpatient [facility] [id number] Karlo Avery 2022-08-16 09:37:42 2022-08-16 09:37:42 Outpatient [facility] [id number] Karlo Avery 2022-06-30 00:00:00 2022-06-30 00:00:00 Orders Only Doctor Unassigned, Blue [id number] [facility] 2022-06-29 10:14:51 2022-06-29 10:14:51 Outpatient [facility] [id number] Karlo Avery 2022-05-06 13:57:04 2022-05-06 13:57:04 Outpatient [facility]FA SFA [id number] Karlo Avery 2022-04-14 11:30:00 2022-04-14 12:40:42 Piano Stringer Visit Therapist, Silvia Go Una Beltran [facility] [id number] [facility] 2022-04-14 11:30:00 2022-04-14 11:30:00 [facility] [id number] 2022-04-14 00:00:00 2022-04-14 00:00:00 Orders Only Doctor Unassigned, Blue [facility] [id number] [facility] 2022-03-22 16:55:48 2022-03-22 16:55:48 Outpatient SFA SFA [id number] Karlo Avery 2022-03-08 14:40:04 2022-03-08 14:40:04 Outpatient SFA SFA [id number] Karlo Avery 2022-03-04 11:01:10 2022-03-04 11:01:10 Outpatient SFA SFA [id number] Karlo Avery 2022-02-18 09:00:08 2022-02-18 09:00:08 Outpatient SFA SFA [id number] Karlo Avery 2022-02-04 10:49:39 2022-02-04 10:49:39 Outpatient SFA SFA [id number] Karlo Avery 2022-01-13 09:58:00 2022-01-13 12:30:00 Outpatient R DANG MALDONADO [facility] [id number] [facility] 2022-01-13 09:58:00 2022-01-13 12:30:00 Hospital Encounter Dang Maldonado [facility] [place] 1.2.840.114 350.1.13.10 4.2.7.2.686 [id number] [facility] 2022-01-13 11:07:00 2022-01-13 11:51:00 Surgery Jonnie fariaDang [facility] [place] 1.2.840.114 350.1.13.10 4.2.7.2.686 [id number] [facility] 2022-01-13 00:00:00 2022-01-13 00:00:00 Orders Only Doctor Unassigned, Blue [facility] 1.2.840.114 350.1.13.10 4.2.7.2.686 [id number] [facility] 2021-10-26 00:00:00 2021-10-26 00:00:00 Orders Only Doctor Unassigned, Blue [facility] 1.2.840.114 350.1.13.10 4.2.7.2.686 [id number] [facility] 2021-10-15 19:43:00 2021-10-15 21:57:00 Emergency X MICHA LYNNE TIMOTHY [facility] ERT [id number] [facility] 2021-10-15 19:43:00 2021-10-15 21:57:00 Emergency Micha Lynne [facility] 1.2.840.114 350.1.13.10 4.2.7.2.686 [id number] [facility] 2021-10-07 00:00:00 2021-10-07 00:00:00 Orders Only Doctor Unassigned, Blue [facility] 1.2.840.114 350.1.13.10 4.2.7.2.686 [id number] [id number] [facility] 2021-10-06 00:00:00 2021-10-06 00:00:00 Transition of Care Katya Baum 1.2840.114 350.1.13.10 4.2.7.2.686 [id number] [facility] 2021-10-06 00:00:00 2021-10-06 00:00:00 Orders Only Doctor Unassigned, Blue [facility] 1.2840.114 350.1.13.10 4.2.7.2.686 [id number] 009 [id number] [facility] 2021-10-02 15:20:00 2021-10-05 17:15:00 Hospital Encounter [facility] 1.0.114 350.1.13.10 4.2.7.2.686 [id number] [facility] 2021-10-02 15:20:00 2021-10-05 17:15:00 Outpatient X PADMA DANIELSON [facility] [id number] [facility] 2021-10-05 00:00:00 2021-10-05 00:00:00 Telephone PaulPadma goodman [facility] M[facility]PEC [facility] 1.114 350.1.13.10 4.2.7.2.686 [id number] [facility] 2021-09-02 00:00:00 2021-09-02 00:00:00 Outpatient LOUISE SOLO [facility] [id number] [facility] h Program Results Test Description Test Time Test Comments Results Result Co mments Source [facility] [id number] 01:47:31* Test Item Value Reference Range Interpretation Comme nts NT-proBNP (test code = 6089259106) 488 pg/mL See_Comment H [Automated message] The system which generated this result transmitted reference range: <=450. The reference range was not used to interpret this result as normal/abnormal. SUZE (test code = USZE) Biotin has been reported to cause a negative bias, interpret results relative to patient's use of biotin. Lab Interpretation (test code = 21190-5) Abnormal [facility]. METABOLIC PANEL (18684)2021-10-16 01:34:28* Test Item Value Reference Range Interpretation Comme nts NA (test code = 3735266564) 135 mmol/L 135-145 K (test code = 2713216978) 3.6 mmol/L 3.5-5 CL (test code = 2776391355) 102 mmol/L 98-108 CO2 TOTAL (test code = 0110331315) 25 mmol/L 23-31 AGAP (test code = 3914267579) 2-16 BUN (test code = 1077263890) 15 mg/dL 7-23 GLUCOSE (test code = 6300720471) 92 mg/dL 70-110 CREATININE (test code = 5403123742) 0.91 mg/dL 0.5-1.04 TOTAL BILI (test code = 7127280438) 1.2 mg/dL 0.1-1.1 H CALCIUM (test code = 2888942407) 9.2 mg/dL 8.6-10.6 T PROTEIN (test code = 4049126443) 6.6 g/dL 6.3-8.2 ALBUMIN (test code = 3565395528) 4.4 g/dL 3.5-5 ALK PHOS (test code = 2510985608) 95 U/L 34-122 ALTv (test code = 1742-6) 22 U/L 5-35 AST(SGOT) (test code = 4530355343) 34 U/L 13-40 eGFR (test code = 8830008921) mL/min/1.73m2 SUZE (test code = SUZE) Association of [...] or abnormalities in imaging tests). Lab Interpretation (test code = 48655-8) Abnormal [facility] WITH [id number] 01:21:05* Test Item Value Reference Range Interpretation Comme nts WBC (test code = 6690-2) See_Comment [Innoverne] The system which generated this result transmitted reference range: 4.30 - 11.10 10*3/?L. The reference range was not used to interpret this result as normal/abnormal. RBC (test code = 789-8) See_Comment [Innoverne] The system which generated this result transmitted reference range: 3.93 - 5.25 10*6/?L. The reference range was not used to interpret this result as normal/abnormal. HGB (test code = 718-7) 12.4 g/dL 11.6-15 HCT (test code = 4544-3) 37.2 % 35.7-45.2 MCV (test code = 787-2) 91.4 fL 80.6-95.5 MCH (test code = 785-6) 30.5 pg 25.9-32.8 MCHC (test code = 786-4) 33.3 g/dL 31.6-35.1 RDW-SD (test code = 68562-9) 40.9 fL 39-49.9 RDW-CV (test code = 788-0) 12.2 % 12-15.5 PLT (test code = 777-3) See_Comment [Automated [employer]] The system which generated this result transmitted reference range: 166 - 358 10*3/?L. The reference range was not used to interpret this result as normal/abnormal. MPV (test code = 34308-8) 9.9 fL 9.5-12.9 NRBC/100 WBC (test code = 0269396199) See_Comment [Automated [employer] ssage] The system which generated this result transmitted reference range: 0.0 - 10.0 /100 WBCs. The reference range was not used to interpret this result as normal/abnormal. NRBC x10^3 (test code = 7943333848) See_Comment [Automated [employer]] The system which generated this result transmitted reference range: 10*3/?L. The reference range was not used to interpret this result as normal/abnormal. GRAN MAT (NEUT) % (test code = 770-8) 76.4 % IMM GRAN % (test code = 0385205436) 0.20 % LYMPH % (test code = 736-9) 8.3 % MONO % (test code = 5905-5) 9.5 % EOS % (test code = 713-8) 4.4 % BASO % (test code = 706-2) 1.2 % GRAN MAT x10^3(ANC) (test code = 6689466775) 4.50 10*3/uL 1.88-7.09 IMM GRAN x10^3 (test code = 9166898107) 0-0.06 LYMPH x10^3 (test code = 731-0) 0.49 10*3/uL 1.32-3.29 L MONO x10^3 (test code = 742-7) 0.56 10*3/uL 0.33-0.92 EOS x10^3 (test code = 711-2) 0.26 10*3/uL 0.03-0.39 BASO x10^3 (test code = 704-7) 0.07 10*3/uL 0.01-0.07 Lab Interpretation (test code = 47764-3) [facility] (NA, K, CL, CO2, GLUCOSE, BUN, CREATININE, CA)2021-10-05 10:08:40* Test Item Value Reference Range Interpretation Comme nts NA (test code = 7010684042) 135 mmol/L 135-145 K (test code = 1424117746) 3.9 mmol/L 3.5-5 CL (test code = 2675625042) 106 mmol/L 98-108 CO2 TOTAL (test code = 4578404853) 27 mmol/L 23-31 AGAP (test code = 1216203576) 2-16 BUN (test code = 8981534490) 17 mg/dL 7-23 GLUCOSE (test code = 5922157094) 100 mg/dL 70-110 CREATININE (test code = 9487168220) 1.21 mg/dL 0.5-1.04 H CALCIUM (test code = 5595776516) 8.7 mg/dL 8.6-10.6 eGFR (test code = 9592701255) mL/min/1.73m2 SUZE (test code = SUZE) Association of [...] or abnormalities in imaging tests). Lab Interpretation (test code = 18102-5) [facility]normal [facility]2022-08-29 10:08:40* Test Item Value Reference Range Interpretation Comme nts MAGNESIUM (test code = 7660674195) 1.8 mg/dL 1.7-2.4 Lab Interpretation (test cod e = 80765-6) Normal [facility] Station[facility] WITHOUT [id number] 09:30:59* Test Item Value Reference Range Interpretation Comme nts WBC (test code = 6690-2) See_Comment [Automated message] The system which generated this result transmitted reference range: 4.30 - 11.10 10*3/?L. The reference range was not used to interpret this result as normal/abnormal. RBC (test code = 789-8) See_Comment L [Automated message] The system which generated this result transmitted reference range: 3.93 - 5.25 10*6/?L. The reference range was not used to interpret this result as normal/abnormal. HGB (test code = 718-7) 10.1 g/dL 11.6-15 L HCT (test code = 4544-3) 29.3 % 35.7-45.2 L MCH (test code = 785-6) 31.9 pg 25.9-32.8 MCV (test code = 787-2) 92.4 fL 80.6-95.5 MCHC (test code = 786-4) 34.5 g/dL 31.6-35.1 PLT (test code = 777-3) See_Comment [Automated message] The system which generated this result transmitted reference range: 166 - 358 10*3/?L. The reference range was not used to interpret this result as normal/abnormal. MPV (test code = 98492-7) 10.0 fL 9.5-12.9 RDW-CV (test code = 788-0) 12.1 % 12-15.5 RDW-SD (test code = 92608-2) 41.6 fL 39-49.9 NRBC x10^3 (test code = 8076181220) See_Comment [Automated messa ge] The system which generated this result transmitted reference range: 10*3/?L. The reference range was not used to interpret this result as normal/abnormal. NRBC/100 WBC (test code = 8515785782) See_Comment [Automated messa ge] The system which generated this result transmitted reference range: 0.0 - 10.0 /100 WBCs. The reference range was not used to interpret this result as normal/abnormal. IPF % (test code = 8464751636) Lab Interpretation (test code = 07287-2) Abnormal [facility] WITH [id number] 10:56:20* Test Item Value Reference Range Interpretation Comme nts WBC (test code = 6690-2) See_Comment L [Automated messa ge] The system which generated this result transmitted reference range: 4.30 - 11.10 10*3/?L. The reference range was not used to interpret this result as normal/abnormal. RBC (test code = 789-8) See_Comment L [Automated messa ge] The system which generated this result transmitted reference range: 3.93 - 5.25 10*6/?L. The reference range was not used to interpret this result as normal/abnormal. HGB (test code = 718-7) 10.1 g/dL 11.6-15 L HCT (test code = 4544-3) 29.1 % 35.7-45.2 L MCV (test code = 787-2) 92.4 fL 80.6-95.5 MCH (test code = 785-6) 32.1 pg 25.9-32.8 MCHC (test code = 786-4) 34.7 g/dL 31.6-35.1 RDW-SD (test code = 42231-7) 41.0 fL 39-49.9 RDW-CV (test code = 788-0) 12.1 % 12-15.5 PLT (test code = 777-3) See_Comment [Automated messa ge] The system which generated this result transmitted reference range: 166 - 358 10*3/?L. The reference range was not used to interpret this result as normal/abnormal. MPV (test code = 71371-1) 9.5 fL 9.5-12.9 NRBC/100 WBC (test code = 4709355804) See_Comment [Automated me ssage] The system which generated this result transmitted reference range: 0.0 - 10.0 /100 WBCs. The reference range was not used to interpret this result as normal/abnormal. NRBC x10^3 (test code = 7697277264) See_Comment [Automated messa ge] The system which generated this result transmitted reference range: 10*3/?L. The reference range was not used to interpret this result as normal/abnormal. GRAN MAT (NEUT) % (test code = 770-8) 50.7 % IMM GRAN % (test code = 2849393171) 0.30 % LYMPH % (test code = 736-9) 27.0 % MONO % (test code = 5905-5) 10.1 % EOS % (test code = 713-8) 10.7 % BASO % (test code = 706-2) 1.2 % GRAN MAT x10^3(ANC) (test code = 7118433410) 1.65 10*3/uL 1.88-7.09 L IMM GRAN x10^3 (test code = 7807264157) 0-0.06 LYMPH x10^3 (test code = 731-0) 0.88 10*3/uL 1.32-3.29 L MONO x10^3 (test code = 742-7) 0.33 10*3/uL 0.33-0.92 EOS x10^3 (test code = 711-2) 0.35 10*3/uL 0.03-0.39 BASO x10^3 (test code = 704-7) 0.04 10*3/uL 0.01-0.07 Lab Interpretation (test code = 14513-0) Abnormal [facility] METABOLIC PANEL (NA, K, CL, CO2, GLUCOSE, BUN, CREATININE, CA)2021-10-04 10:47:23* Test Item Value Reference Range Interpretation Comme nts NA (test code = 8605415984) 133 mmol/L 135-145 L K (test code = 5959882784) 3.8 mmol/L 3.5-5 CL (test code = 1614710446) 105 mmol/L 98-108 CO2 TOTAL (test code = 7757172334) 29 mmol/L 23-31 AGAP (test code = 3170065812) 2-16 L BUN (test code = 8373464410) 10 mg/dL 7-23 GLUCOSE (test code = 7157073555) 89 mg/dL 70-110 CREATININE (test code = 3336181844) 1.03 mg/dL 0.5-1.04 CALCIUM (test code = 8689668811) 8.6 mg/dL 8.6-10.6 eGFR (test code = 5688524822) mL/min/1.73m2 SUZE (test code = SUZE) Association of [...] or abnormalities in imaging tests). Lab Interpretation (test code = 31465-8) Abnormal [facility]2022-08-28 10:27:12* Test Item Value Reference Range Interpretation Comme nts MAGNESIUM (test code = 0139819967) 1.8 mg/dL 1.7-2.4 Lab Interpretation (test cod e = 68528-8) Normal [facility] WITH [id number] 03:39:50* Test Item Value Reference Range Interpretation Comme nts WBC (test code = 6690-2) See_Comment L [Automated messa ge] The system which generated this result transmitted reference range: 4.30 - 11.10 10*3/?L. The reference range was not used to interpret this result as normal/abnormal. RBC (test code = 789-8) See_Comment L [Automated messa ge] The system which generated this result transmitted reference range: 3.93 - 5.25 10*6/?L. The reference range was not used to interpret this result as normal/abnormal. HGB (test code = 718-7) 10.0 g/dL 11.6-15 L HCT (test code = 4544-3) 29.4 % 35.7-45.2 L MCV (test code = 787-2) 92.7 fL 80.6-95.5 MCH (test code = 785-6) 31.5 pg 25.9-32.8 MCHC (test code = 786-4) 34.0 g/dL 31.6-35.1 RDW-SD (test code = 12785-9) 40.8 fL 39-49.9 RDW-CV (test code = 788-0) 11.9 % 12-15.5 L PLT (test code = 777-3) See_Comment L [Automated messa ge] The system which generated this result transmitted reference range: 166 - 358 10*3/?L. The reference range was not used to interpret this result as normal/abnormal. MPV (test code = 66132-0) 9.8 fL 9.5-12.9 NRBC/100 WBC (test code = 4403622448) See_Comment [Automated me ssage] The system which generated this result transmitted reference range: 0.0 - 10.0 /100 WBCs. The reference range was not used to interpret this result as normal/abnormal. NRBC x10^3 (test code = 0394549798) See_Comment [Automated messa ge] The system which generated this result transmitted reference range: 10*3/?L. The reference range was not used to interpret this result as normal/abnormal. GRAN MAT (NEUT) % (test code = 770-8) 51.4 % IMM GRAN % (test code = 9632693452) 0.30 % LYMPH % (test code = 736-9) 26.5 % MONO % (test code = 5905-5) 10.8 % EOS % (test code = 713-8) 10.0 % BASO % (test code = 706-2) 1.0 % GRAN MAT x10^3(ANC) (test code = 3128076508) 1.96 10*3/uL 1.88-7.09 IMM GRAN x10^3 (test code = 6794811184) 0-0.06 LYMPH x10^3 (test code = 731-0) 1.01 10*3/uL 1.32-3.29 L MONO x10^3 (test code = 742-7) 0.41 10*3/uL 0.33-0.92 EOS x10^3 (test code = 711-2) 0.38 10*3/uL 0.03-0.39 BASO x10^3 (test code = 704-7) 0.04 10*3/uL 0.01-0.07 Lab Interpretation (test code = 54699-5) Abnormal [facility] Station[facility] and Screen - ONCE [id number] 03:38:54* Test Item Value Reference Range Interpretation Comme nts ABO & RH (test code = 20) O POSITIVE Performed at [facility] Laboratory Services - [facility] Blood [place] [address]Toll Free: [phone] No. [id number] IAT (test code = 1185) Negative Performed at [facility] Laboratory Services - [facility] Blood [place] [address]Toll Free: [phone] No. [id number] [facility] StationIRON [id number] 15:51:56* Test Item Value Reference Range Interpretation Comme nts IRON (test code = 1178351207) 78 ug/dL 50-160 TIBC (test code = 5760700692) 296 ug/dL 250-410 % FE SAT (test code = 2689472612) 26 % 20-50 Lab Interpretation (test cod e = 30511-9) Normal [facility] (NA, K, CL, CO2, GLUCOSE, BUN, CREATININE, CA)2021-10-03 04:19:41* Test Item Value Reference Range Interpretation Comme nts NA (test code = 3656423599) 136 mmol/L 135-145 K (test code = 5530742769) 3.5 mmol/L 3.5-5 CL (test code = 9313645208) 103 mmol/L 98-108 CO2 TOTAL (test code = 7101683163) 29 mmol/L 23-31 AGAP (test code = 8695644198) 2-16 BUN (test code = 8619141521) 14 mg/dL 7-23 GLUCOSE (test code = 0691054819) 118 mg/dL 70-110 H CREATININE (test code = 5945243010) 0.90 mg/dL 0.5-1.04 CALCIUM (test code = 9590613419) 9.4 mg/dL 8.6-10.6 eGFR (test code = 8390430767) mL/min/1.73m2 SUZE (test code = SUZE) Association of [...] or abnormalities in imaging tests). Lab Interpretation (test code = 24530-5) Abnormal [facility] WITH [id number] 03:59:15* Test Item Value Reference Range Interpretation Comme nts WBC (test code = 6690-2) See_Comment [Automated [employer]] The system which generated this result transmitted reference range: 4.30 - 11.10 10*3/?L. The reference range was not used to interpret this result as normal/abnormal. RBC (test code = 789-8) See_Comment [Automated [employer]] The system which generated this result transmitted reference range: 3.93 - 5.25 10*6/?L. The reference range was not used to interpret this result as normal/abnormal. HGB (test code = 718-7) 12.7 g/dL 11.6-15 HCT (test code = 4544-3) 37.5 % 35.7-45.2 MCV (test code = 787-2) 93.8 fL 80.6-95.5 MCH (test code = 785-6) 31.8 pg 25.9-32.8 MCHC (test code = 786-4) 33.9 g/dL 31.6-35.1 RDW-SD (test code = 72712-6) 42.7 fL 39-49.9 RDW-CV (test code = 788-0) 12.3 % 12-15.5 PLT (test code = 777-3) See_Comment [Automated [employer]] The system which generated this result transmitted reference range: 166 - 358 10*3/?L. The reference range was not used to interpret this result as normal/abnormal. MPV (test code = 60097-1) 9.7 fL 9.5-12.9 NRBC/100 WBC (test code = 6575678856) See_Comment [Automated [employer] ssage] The system which generated this result transmitted reference range: 0.0 - 10.0 /100 WBCs. The reference range was not used to interpret this result as normal/abnormal. NRBC x10^3 (test code = 7629078403) See_Comment [Automated messa ge] The system which generated this result transmitted reference range: 10*3/?L. The reference range was not used to interpret this result as normal/abnormal. GRAN MAT (NEUT) % (test code = 770-8) 66.4 % IMM GRAN % (test code = 9479387609) 0.10 % LYMPH % (test code = 736-9) 19.6 % MONO % (test code = 5905-5) 7.0 % EOS % (test code = 713-8) 5.7 % BASO % (test code = 706-2) 1.2 % GRAN MAT x10^3(ANC) (test code = 7632069634) 4.55 10*3/uL 1.88-7.09 IMM GRAN x10^3 (test code = 3590358058) 0-0.06 LYMPH x10^3 (test code = 731-0) 1.34 10*3/uL 1.32-3.29 MONO x10^3 (test code = 742-7) 0.48 10*3/uL 0.33-0.92 EOS x10^3 (test code = 711-2) 0.39 10*3/uL 0.03-0.39 BASO x10^3 (test code = 704-7) 0.08 10*3/uL 0.01-0.07 H Lab Interpretation (test code = 37136-1) Abnormal [facility] StationGLYCOSYLATED HEMOGLOBIN (A1C)2021-10-03 03:46:09* Test Item Value Reference Range Interpretation Comme nts HGB A1C (test code = 4548-4) 5.0 % 4-5.7 SUZE (test code = SUZE) Reference RangesNormal: <5.7%Prediabetes: 5.7 - 6.4%Diabetes: > 6.5% Lab Interpretation (test code = 08087-2) Normal [facility] StationABORH Confirmation (Lab Only)2021-10-02 21:53:37* Test Item Value Reference Range Interpretation Comme nts ABO & RH (test code = 20) O Positive Performed at [facility] B Laboratory Services - [facility] Blood [address] [place], [place] [address]Toll Free: [phone] No. [id number] [facility] StationType and Screen - ONCE [id number] 21:34:44 * Test Item Value Reference Range Interpretation Comme nts ABO & RH (test code = 20) O Positive Performed at [facility] Laboratory Services [facility] Blood [place] [address]Toll Free: [phone] No. [id number] IAT (test code = 1185) Negative Performed at [facility] Laboratory Services - [facility] Blood [address]Toll Free: [phone] No. [id number] [facility] StationCOMP. METABOLIC PANEL (71719)2021-10-02 21:13:27* Test Item Value Reference Range Interpretation Comme nts NA (test code = 6058733274) 139 mmol/L 135-145 K (test code = 8875183570) 4.2 mmol/L 3.5-5 CL (test code = 1877008083) 102 mmol/L 98-108 CO2 TOTAL (test code = 8941526206) 29 mmol/L 23-31 AGAP (test code = 6125238193) 2-16 BUN (test code = 7283862003) 17 mg/dL 7-23 GLUCOSE (test code = 3264919546) 89 mg/dL 70-110 CREATININE (test code = 5782158410) 0.85 mg/dL 0.5-1.04 TOTAL BILI (test code = 6290352245) 1.5 mg/dL 0.1-1.1 H CALCIUM (test code = 2234975563) 9.5 mg/dL 8.6-10.6 T PROTEIN (test code = 8283566168) 6.9 g/dL 6.3-8.2 ALBUMIN (test code = 7283543684) 4.5 g/dL 3.5-5 ALK PHOS (test code = 2797709149) 83 U/L 34-122 ALTv (test code = 1742-6) 24 U/L 5-35 AST(SGOT) (test code = 5387497523) 35 U/L 13-40 eGFR (test code = 4371835385) mL/min/1.73m2 SUZE (test code = SUZE) Association of [...] or abnormalities in imaging tests). Lab Interpretation (test code = 37854-8) Abnormal [facility] StationACTIVATED PARTIAL THRMPLAS [id number] 21:10:23* Test Item Value Reference Range Interpretation Comme [facility] APTT Patient (test code = 3173-2) See_Comment [Automated message] The system which generated this result transmitted reference range: 23 - 38 Seconds. The reference range was not used to interpret this result as normal/abnormal. SUZE (test code = SUZE) The [facility] patient population mean normal value for aPTT is 30 seconds. Lab Interpretation (test code = 20770-8) Normal [facility] StationProthrombin Time / [id number] 21:08:06* Test Item Value Reference Range Interpretation Comme [facility] PROTIME PATIENT (test code = 5964-2) See_Comment H [Automated messa ge] The system which generated this result transmitted reference range: 12.0 - 14.7 Seconds. The reference range was not used to interpret this result as normal/abnormal. INR (test code = 6301-6) Normal INR <1.1; Warfarin Therapeutic range 2.0 to 3.0 or 2.5 to 3.5, depending upon the indications. Lab Interpretation (test code = 01388-9) Abnormal [facility] WITH [id number] 21:02:42* Test Item Value Reference Range Interpretation Comme [facility] WBC (test code = 6690-2) See_Comment [Automated [employer]] The system which generated this result transmitted reference range: 4.30 - 11.10 10*3/?L. The reference range was not used to interpret this result as normal/abnormal. RBC (test code = 789-8) See_Comment [Automated [employer]] The system which generated this result transmitted reference range: 3.93 - 5.25 10*6/?L. The reference range was not used to interpret this result as normal/abnormal. HGB (test code = 718-7) 13.6 g/dL 11.6-15 HCT (test code = 4544-3) 40.5 % 35.7-45.2 MCV (test code = 787-2) 93.1 fL 80.6-95.5 MCH (test code = 785-6) 31.3 pg 25.9-32.8 MCHC (test code = 786-4) 33.6 g/dL 31.6-35.1 RDW-SD (test code = 55901-3) 42.0 fL 39-49.9 RDW-CV (test code = 788-0) 12.2 % 12-15.5 PLT (test code = 777-3) See_Comment [Automated [employer]] The system which generated this result transmitted reference range: 166 - 358 10*3/?L. The reference range was not used to interpret this result as normal/abnormal. MPV (test code = 27036-9) 9.6 fL 9.5-12.9 NRBC/100 WBC (test code = 9985145759) See_Comment [Automated me ssage] The system which generated this result transmitted reference range: 0.0 - 10.0 /100 WBCs. The reference range was not used to interpret this result as normal/abnormal. NRBC x10^3 (test code = 4203354618) See_Comment [Automated messa ge] The system which generated this result transmitted reference range: 10*3/?L. The reference range was not used to interpret this result as normal/abnormal. GRAN MAT (NEUT) % (test code = 770-8) 66.2 % IMM GRAN % (test code = 0531702436) 0.20 % LYMPH % (test code = 736-9) 19.5 % MONO % (test code = 5905-5) 7.0 % EOS % (test code = 713-8) 5.7 % BASO % (test code = 706-2) 1.4 % GRAN MAT x10^3(ANC) (test code = 3608029358) 5.56 10*3/uL 1.88-7.09 IMM GRAN x10^3 (test code = 7439101883) 0-0.06 LYMPH x10^3 (test code = 731-0) 1.64 10*3/uL 1.32-3.29 MONO x10^3 (test code = 742-7) 0.59 10*3/uL 0.33-0.92 EOS x10^3 (test code = 711-2) 0.48 10*3/uL 0.03-0.39 H BASO x10^3 (test code = 704-7) 0.12 10*3/uL 0.01-0.07 H Lab Interpretation (test code = 89364-8) Abnormal [facility]
[2023-02-12 12:47] LABS: Hematocrit 37.5 % (36.0-45.0); Lymphocytes % 14.9 % (15.3-44.8); MCV 90.4 fL (80-100); MPV 7.9 fL (7.6-11.3); Platelets 257 thou/uL (152-406); RBC Red Blood Cell Count 4.15 M/uL (3.86-4.86)
[2023-02-12 12:54] LABS: Protime INR 1.53
[2023-02-12 13:06] LABS: Albumin 3.1 g/dL (3.4-5.0); Bilirubin Total 0.9 mg/dL (0.2-1.0); Potassium 4.3 mEq/L (3.5-5.1); Protein, Total 7.3 g/dL (6.4-8.2); SARS-CoV-2 Antigen Rapid Res Negative (Negative)
[2023-02-12 13:07] LABS: Troponin High Sensitivity 79.5 pg/mL (<58.9)
--- NOTE | 2023-02-12 13:17 | ER ---
Nurse's Notes [facility] Name: Madiha Breaux Age: 88 yrs Sex: Female : 1935 Arrival Date: 02/12/2023 Time: 11:48 Bed 4 Private MD: Diagnosis: Unspecified systolic (congestive) heart failure Presentation: 02/12 11:57 Chief complaint: EMS states: SOB, cough, congestion since Mima, denies fever or ph pain, BP elevated at 180s systolic, HR 80s-120s hx of a-fib, uses home oxygen continuously at 2-2.5 L/m, Spo2 was 94% on 2L NC w/ extensive tubing noted. Coronavirus screen: Vaccine status: Patient reports receiving the 2nd dose of the covid vaccine. Ebola Screen: No symptoms or risks identified at this time. Initial Sepsis Screen: Does the patient meet any 2 criteria? RR > 20 per min. Does the patient have a suspected source of infection? Yes: Productive cough/pneumonia. Risk Assessment: Do you want to hurt yourself or someone else? Patient reports no desire to harm self or others. Onset of symptoms was February 12, 2023. 11:57 Method Of Arrival: EMS: [facility] 11:57 Acuity: DAMIR 2 ph Triage Assessment: 12:01 General: Appears in no apparent distress. uncomfortable, well groomed, Behavior is ph calm, cooperative, quiet, Reports feeling ill for > 3 days, Denies fever. Pain: Denies pain. Neuro: Level of Consciousness is awake, alert, obeys commands, Oriented to person, place, time, situation. Cardiovascular: Capillary refill < 3 seconds in bilateral fingers Patient's skin is warm and dry. Cardiovascular: Reports shortness of breath, Denies chest pain, Rhythm is atrial fibrillation. Respiratory: Reports shortness of breath at rest cough that is Airway is patent Respiratory pattern is tachypnea Onset: The symptoms/episode began/occurred 01/31/23. GI: No signs and/or symptoms were reported involving the gastrointestinal system. : No signs and/or symptoms were reported regarding the genitourinary system. Derm: Skin is pale, Skin temperature is cool. Musculoskeletal: Circulation, motion, and sensation intact. Range of motion: intact in all extremities. 12:05 Respiratory: the patient has moderate shortness of breath. ap3 Historical: - Allergies: 12:00 Codeine; ph 12:00 Demerol; ph 12:00 Fentanyl; ph 12:00 lamital; ph 12:00 Lidocaine; ph 12:00 meperidine; ph 12:00 Morphine; ph 12:00 [place]; ph 12:00 PENICILLINS; ph 12:00 PORK/PORCINE PRODUCT DERIVATIVES; ph 12:00 Sulfa (Sulfonamide Antibiotics); ph - PMHx: 12:00 Atrial fibrillation; C-diff; COPD; CVA; Myocardial infarction; Pacemaker; ph - Immunization history:: Adult Immunizations unknown. - Social history:: Smoking status: unknown. Screenin:03 [facility] ED Fall Risk Assessment (Adult) History of falling in the last 3 months, ph including since admission No falls in past 3 months (0 pts) Confusion or Disorientation No (0 pts) Intoxicated or Sedated No (0 pts) Impaired Gait No (0 pts) Mobility Assist Device Used Yes (1 pt) Altered Elimination Yes (1 pt) Score/Fall Risk Level 0 - 2 = Low Risk Oriented to surroundings, Maintained a safe environment, Assessed \\T\\ reinforced patient's understanding of fall precautions, Provided non-skid footwear, Hourly rounding (assess needs \\T\\ fall precautionary measures) done. Abuse screen: Denies threats or abuse. Denies injuries from another. Nutritional screening: No deficits noted. Tuberculosis screening: No symptoms or risk factors identified. Assessment: 12:05 Respiratory: Reports cough that is Respiratory effort is even. ap3 14:55 Reassessment: Attempted to call report to second floor, no answer. ph 15:15 Reassessment: Patient appears in no apparent distress at this time. Patient and/or ph family updated on plan of care and expected duration. Pain level reassessed. Patient is alert, oriented x 3, equal unlabored respirations, skin warm/dry/pink. Attempted to call report to 2nd floor, no answer. 15:31 Reassessment: Attempted to call report, nurse stated that she was "finishing a ph discharge." Asked that I call back in a few minutes. Vital Signs: 11:57 BP 213 / 106; Pulse 89; Resp 26; Temp 97.9(O); Pulse Ox 99% on 2 lpm NC; Weight 40.82 ph kg; Height 5 ft. 0 in. ; 12:16 BP 195 / 88; Pulse 86; Pulse Ox 98% on 2 lpm NC; ap3 12:39 BP 179 / 68; Pulse 86; Resp 24; Pulse Ox 99% on 2 lpm NC; ph 11:57 Body Mass Index 17.58 (40.82 kg, 152.4 cm) ph ED Course: 11:57 Patient arrived in ED. ph 12:00 Jeff Hines MD is Attending Physician. ec2 12:00 Triage completed. ph 12:02 Arm band placed on Patient placed in an exam room, on a stretcher, on oxygen, on ph quality assurance monitor final, on pulse oximetry. 12:03 Patient has correct armband on for positive identification. Bed in low position. Call ph light in reach. Side rails up X2. Client placed on continuous cardiac and pulse oximetry monitoring. NIBP monitoring applied. Warm blanket given. 12:04 EKG done, by ED staff, reviewed by Jeff Hines MD. ap3 12:30 First set of blood cultures drawn by me. Inserted saline lock: 20 gauge in right ph forearm, using aseptic technique. Blood collected. 12:37 Initial lab(s) drawn, by me, sent to lab. ap3 12:39 Sydnee Casas, RN is Primary Nurse. ph 12:40 Ptt, Activated Sent. ph 12:40 Protime (+inr) Sent. ph 12:40 Lactate w/ 2H reflex if indic. Sent. ph 12:40 Influenza Screen (a \\T\\ B) Sent. ph 12:40 SARS RAPID Sent. ph 12:40 CMP Sent. ph 12:40 CBC with Diff Sent. ph 12:40 NT PRO-BNP Sent. ph 12:40 Troponin HS Sent. ph 13:16 Eitan Stanley MD is Hospitalizing Provider. ec2 13:21 XRAY Chest (1 view) In Process Unspecified. EDMS Administered Medications: 13:45 Drug: Furosemide IVP 40 mg IVP once; give over 2 minutes Route: IVP; Site: right ap3 forearm; 14:12 Not Given (Physician Discretion): rocephin1 grams IV at calculated rate once; Given la1 slow IV push per pharmacy instructions 14:12 Not Given (Physician Discretion): [id number] mg IVPB once over 1 hrs; (mix in 250 la1 mL NS) 14:23 Drug: MethylPrednisoLONE IVP 125 mg IVP once Route: IVP; Site: right forearm; ap3 Medication: 12:03 VIS not applicable for this client. ph Outcome: 13:17 Decision to Hospitalize by Provider. ec2 16:24 Patient left the ED. ph Signatures: Dispatcher [employer] Sydnee Carpenter RN RN ph Prokisch, Amanda, RN RN ap3 Jeff Hines MD MD ec2 Tito Paul [facility]
--- NOTE | 2023-02-12 13:17 | EDPHYS ---
Physician Documentation [facility] Name: Madiha Breaux Age: 88 yrs Sex: Female : 1935 Arrival Date: 02/12/2023 Time: 11:48 Bed 4 Private MD: ED Physician Jeff Hines HPI: 02/12 12:08 This 88 yrs old Female presents to ER via EMS with complaints of Shortness Of ec2 Breath. 13:13 This 88 yrs old Female presents to ER via EMS with complaints of Shortness Of Breath. ec2 12:08 Patient arrives today for evaluation of shortness of breath. Patient reports that she ec2 has been having worsening shortness of breath for the past several weeks. States that she is having improved productive cough. Patient reports no fevers or chills, no nausea or vomiting. Patient with baseline COPD, baseline oxygen requirement.. Historical: - Allergies: 12:00 Codeine; ph 12:00 Demerol; ph 12:00 Fentanyl; ph 12:00 lamital; ph 12:00 Lidocaine; ph 12:00 meperidine; ph 12:00 Morphine; ph 12:00 [place]; ph 12:00 PENICILLINS; ph 12:00 PORK/PORCINE PRODUCT DERIVATIVES; ph 12:00 Sulfa (Sulfonamide Antibiotics); ph - PMHx: 12:00 Atrial fibrillation; C-diff; COPD; CVA; Myocardial infarction; Pacemaker; ph - Immunization history:: Adult Immunizations unknown. - Social history:: Smoking status: unknown. ROS: 12:08 Constitutional: as per hpi ec2 Exam: 12:08 Constitutional: GEN: NAD Head: atraumatic Eyes: EOMI Ears: External ears are ec2 normal. CV: regular rate LUNGS: no respiratory distress, tachypnea, no wheezes, no rales ABD: non-distended SKIN: no evidence of rashes MSK: no evidence of trauma NEURO: moves all extremities equally Vital Signs: 11:57 BP 213 / 106; Pulse 89; Resp 26; Temp 97.9(O); Pulse Ox 99% on 2 lpm NC; Weight 40.82 ph kg; Height 5 ft. 0 in. ; 12:16 BP 195 / 88; Pulse 86; Pulse Ox 98% on 2 lpm NC; ap3 12:39 BP 179 / 68; Pulse 86; Resp 24; Pulse Ox 99% on 2 lpm NC; ph 11:57 Body Mass Index 17.58 (40.82 kg, 152.4 cm) ph MDM: 12:01 Patient medically screened. ec2 12:08 Data reviewed: vital signs. ED course: Patient arrives today due to concern for ec2 shortness of breath. Examination remarkable for well-appearing nontoxic dividual is otherwise in no acute distress. Will obtain lab work, EKG, chest x-ray. Will empirically treat for pulmonary pathology as well. Currently considering viral infection, pneumonia, COPD exacerbation, lower suspicion for ACS or PE.. 12:11 ED course: EKG independently reviewed and interpreted by me, shows atrial flutter with ec2 variable conduction, shows a rate of 88, no acute ST segment elevations, QTc with slight prolongation at 469. . 13:12 ED course: CBC is reassuring without leukocytosis. Negative COVID testing, lactic ec2 within normal ranges. Troponin elevated at 79. BNP elevated at 7300. Metabolic profile is unremarkable. . 13:13 ED course: Chest x-ray independently reviewed and interpreted by me, shows ec2 cardiomegaly, right-sided small pleural effusion, increased vascular congestion compared to previous chest x-ray. . 13:16 ED course: I suspect a component of volume overload, will give the patient Lasix, ec2 patient is on Lasix 20 mg daily. . 02/12 12:07 Order name: CBC with Diff; Complete Time: 13:06 ec2 02/12 12:07 Order name: NT PRO-BNP; Complete Time: 13:12 ec2 02/12 12:07 Order name: Troponin HS; Complete Time: 13:12 ec2 02/12 12:07 Order name: CMP; Complete Time: 13:12 ec2 02/12 12:07 Order name: SARS RAPID; Complete Time: 13:06 ec2 02/12 12:07 Order name: Influenza Screen (a \T\ B); Complete Time: 13:27 ec2 02/12 12:08 Order name: Blood Culture Adult (2) ec2 02/12 12:08 Order name: Lactate w/ 2H reflex if indic.; Complete Time: 13:06 ec2 02/12 12:08 Order name: Protime (+inr); Complete Time: 13:06 ec2 02/12 12:08 Order name: Ptt, Activated; Complete Time: 13:06 ec2 02/12 12:07 Order name: XRAY Chest (1 view); Complete Time: 13:40 ec2 02/12 12:07 Order name: EKG; Complete Time: 12:07 ec2 02/12 12:07 Order name: Cardiac monitoring; Complete Time: 12:15 ec2 02/12 12:07 Order name: EKG - Nurse/Tech; Complete Time: 12:15 ec2 02/12 12:07 Order name: IV Saline Lock; Complete Time: 12:40 ec2 02/12 12:07 Order name: Labs collected and sent; Complete Time: 12:40 ec2 02/12 12:07 Order name: O2 Per Protocol; Complete Time: 12:15 ec2 02/12 12:07 Order name: O2 Sat Monitoring; Complete Time: 12:15 ec2 02/12 12:08 Order name: Accucheck; Complete Time: 12:40 ec2 02/12 12:08 Order name: IV Saline Lock - Large Bore; Complete Time: 12:37 ec2 02/12 12:08 Order name: Vital Signs; Complete Time: 12:16 ec2 Administered Medications: 13:45 Drug: Furosemide IVP 40 mg IVP once; give over 2 minutes Route: IVP; Site: right ap3 forearm; 14:12 Not Given (Physician Discretion): rocephin1 grams IV at calculated rate once; Given la1 slow IV push per pharmacy instructions 14:12 Not Given (Physician Discretion): [id number] mg IVPB once over 1 hrs; (mix in 250 la1 mL NS) 14:23 Drug: MethylPrednisoLONE IVP 125 mg IVP once Route: IVP; Site: right forearm; ap3 Disposition Summary: 02/12/23 13:17 Hospitalization Ordered Notes: Hospitalization Status: Inpatient Admission ec2 Provider: Eitan Stanley ec2 Location: Telemetry/MedSurg (Inpatient) ec2 Condition: Stable ec2 Problem: an acute exacerbation ec2 Symptoms: are unchanged ec2 Bed/Room Type: Standard ec2 Room Assignment: 224(02/12/23 16:15) hb Diagnosis - Unspecified systolic (congestive) heart failure ec2 Forms: - Medication Reconciliation Form ec2 - SBAR form ec2 - Leadership Thank You Letter ec2 Signatures: Dispatcher [employer] EDMS Casas, Sydnee, RN RN Nuria Barajas RN RN hb Sheila Locke RN RN ap3 Guera Gandhi Edwin, MD MD ec2 Tito Paul [facility] Corrections: (The following items were deleted from the chart) 14: 13:17 ec2 eb 16:15 14:29 223 [facility]
--- NOTE | 2023-02-12 13:26 | RAD REPORT ---
EXAM DESCRIPTION: RAD - Chest Single View - 02/12/2023 1:19 pm CLINICAL HISTORY: SOB Chest pain. COMPARISON: Chest Pa And Lat (2 Views) dated 12/17/2022; Chest Single View dated 08/29/2022; Chest Si ngle View dated 08/27/2022; Chest Single View dated 08/25/2022 FINDINGS: Portable technique limits examination quality. The lungs are significantly emphysematous but grossly clear. The heart is normal in size. No displace d fractures.Dual lead pacer device. IMPRESSION: Prominent COPD.
[2023-02-12] MEDS ORDERED: FUROSEMIDE 40 MG/4 ML VIAL ONE (13:34)
[2023-02-12] MEDS ORDERED: METHYLPREDNISOLONE 125 MG INJ ONE (14:19)
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
[2023-02-12 17:27] VITALS: BMI 18.5
[2023-02-12] MEDS ORDERED: ALBUTEROL 2.5 MG/3 ML NEB SOL NEB PRN (18:22)
[2023-02-12] MEDS ORDERED: ACETAMINOPHEN 500 MG TAB PO PRN (18:22)
[2023-02-12] MEDS ORDERED: ZOLPIDEM TARTRATE 10 MG TABLET PO PRN (18:22)
[2023-02-12] MEDS ORDERED: IPRATROPIUM BROM 0.5MG/2.5ML NEB PRN (18:22)
[2023-02-12] MEDS: FUROSEMIDE 20 MG/ 2ML VIAL IV SCH (20:39)
[2023-02-12] MEDS: predniSONE 20 MG TAB PO SCH (20:39)
[2023-02-12] MEDS: ATORVASTATIN 10 MG TAB PO SCH (20:39)
[2023-02-12] MEDS: ENSURE PLANT-BASED PROTEIN VANILLA 330 ML CAN PO SCH ×2 (20:40→20:48)
[2023-02-12] MEDS: carvediloL 3.125 MG TAB PO SCH (20:40)
[2023-02-12] MEDS: BREXPIPRAZOLE 1 MG PO SCH (21:00)
[2023-02-12] MEDS ORDERED: APIXABAN 2.5 MG TABLET PO SCH (21:00)
[2023-02-12] MEDS: LOSARTAN POTASSIUM 50 MG TABLET PO SCH (21:42)
[2023-02-13 03:36] LABS: Absolute Lymphocytes (CBC) 0.6 K/uL (0.7-4.9); Hematocrit 35.9 % (36.0-45.0); Lymphocytes % 16.6 % (15.3-44.8); MCV 89.4 fL (80-100); MPV 8.3 fL (7.6-11.3); Platelets 251 thou/uL (152-406); RBC Red Blood Cell Count 4.01 M/uL (3.86-4.86)
[2023-02-13 03:59] LABS: Albumin 2.9 g/dL (3.4-5.0); Bilirubin Total 0.7 mg/dL (0.2-1.0); Magnesium 1.7 mg/dL (1.6-2.4); Potassium 3.6 mEq/L (3.5-5.1); Protein, Total 6.9 g/dL (6.4-8.2); Thyroid Stimulating Hormone 0.808 uIU/mL (0.358-3.740)
[2023-02-13 04:04] LABS: Troponin High Sensitivity 233.3 pg/mL (<58.9)
[2023-02-13] MEDS: carvediloL 3.125 MG TAB PO SCH ×2 (06:15→17:28)
[2023-02-13] MEDS: ENSURE PLANT-BASED PROTEIN VANILLA 330 ML CAN PO SCH ×2 (09:00→20:14)
[2023-02-13] MEDS: LOSARTAN POTASSIUM 50 MG TABLET PO SCH ×2 (09:00→20:17)
[2023-02-13] MEDS ORDERED: POTASSIUM CL SA 10 MEQ TAB PO ONE (09:00)
[2023-02-13] MEDS: ENOXAPARIN 40 MG/0.4 ML SQ SCH (09:25)
[2023-02-13] MEDS: VITAMIN D 1000 UNIT TAB PO SCH (09:25)
[2023-02-13] MEDS: SERTRALINE HCL 50 MG TAB PO SCH (09:26)
[2023-02-13] MEDS: FUROSEMIDE 20 MG/ 2ML VIAL IV SCH (09:26)
[2023-02-13] MEDS: predniSONE 20 MG TAB PO SCH ×2 (09:26→20:13)
[2023-02-13] MEDS ORDERED: INFLUENZA VACCINE (for 6+ mo) 0.5 ML DOSE IMVAC ONE (10:00)
--- NOTE | 2023-02-13 10:21 | P.PN ---
Date of Service: 02/13/23 Subjective: Dyspnea improving overnight ROS: 10 point ROS as noted above, otherwise negative Physical exam GEN: Alert, oriented, NAD HEENT: Normal conjunctiva, sclera anicteric CV: Afib rate controlled, no edema Pulm: Nonlabored respirations on 2.5L NC ABD: Soft, nontender, nondistended MSK: No joint tenderness Integumentary: No rashes Neuro: Normal speech, normal affect Vitals reviewed Assessment: Dyspnea, COPD exacerbation-on chronic O2 2.5L Suspected acute on chronic diastolic congestive heart failure Elevated troponin Atrial fibrillation on chronic anticoagulation History of CVA History of CAD Insomnia Plan: Dyspnea, COPD exacerbation-on chronic O2 2.5L WBC normal, no fevers Continue steroids, as needed nebs Continue supplemental 02, pulmonology consult Suspected acute on chronic diastolic congestive heart failure Elevated troponin Last echo 2022 with normal EF, elevated right ventricular pressure, among insufficiency Has been on diuretics previously Troponin trended 79.5-347.2-233.[address] Denies chest pain Continue gentle diuresis, trend troponins and monitor inflammatory Atrial fibrillation on chronic anticoagulation Continue carvedilol, Eliquis History of CVA History of CAD Insomnia Home medications continued DVT PPX: Continue Eliquis 2.5 Code status: DNR Discharge Plan: Home Plan to discharge in: 24-48 Hours Time Spent Managing Pts Care (In Minutes): 35
[2023-02-13] MEDS: DULERA 200/5 (MOMETASONE/FORMOTEROL) INHALER IH SCH ×2 (11:01→20:14)
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
[2023-02-13] MEDS ORDERED: NA CHLORIDE 0.9% 250 ML IV ONE (12:00)
[2023-02-13] MEDS: ATORVASTATIN 10 MG TAB PO SCH (20:12)
[2023-02-13] MEDS: BREXPIPRAZOLE 1 MG PO SCH (20:18)
[2023-02-13] MEDS ORDERED: MELATONIN 3 MG TABLET PO PRN (21:02)
[2023-02-13 21:13] LABS: Urine Bacteria 20-50 /HPF (<20); Urine Bilirubin NEGATIVE (Negative); Urine Blood Negative (Negative); Urine Clarity Extremely Turbid (Clear); Urine Color Light-Yellow (Yellow); Urine Glucose NEGATIVE (Negative); Urine Mucus 2+ /HPF (None Seen); Urine Protein NEGATIVE (Negative); Urine RBC <5 /HPF (None Seen); Urine Urobilinogen Normal (Normal)
[2023-02-14 03:28] LABS: Absolute Lymphocytes (CBC) 0.7 K/uL (0.7-4.9); Hematocrit 31.7 % (36.0-45.0); Lymphocytes % 5.7 % (15.3-44.8); MCV 88.6 fL (80-100); MPV 8.1 fL (7.6-11.3); Platelets 231 thou/uL (152-406); RBC Red Blood Cell Count 3.57 M/uL (3.86-4.86)
[2023-02-14 03:41] LABS: Albumin 2.7 g/dL (3.4-5.0); Bilirubin Total 0.4 mg/dL (0.2-1.0); Magnesium 1.9 mg/dL (1.6-2.4); Potassium 3.9 mEq/L (3.5-5.1)
[2023-02-14 04:47] LABS: Blood Morphology Comment NOT SEEN (NOT SEEN); Platelet Estimate ADEQ
[2023-02-14] MEDS: carvediloL 3.125 MG TAB PO SCH ×2 (05:37→17:49)
[2023-02-14] MEDS: NA CHLORIDE 0.9% 1,000 ML IV SCH (07:00)
--- NOTE | 2023-02-14 07:28 | RAD REPORT ---
EXAM DESCRIPTION: RAD - Chest Single View - 02/14/2023 4:34 am CLINICAL HISTORY: dyspnea Chest pain. COMPARISON: Chest Single View dated 02/12/2023; Chest Pa And Lat (2 Views) dated 12/17/2022; Chest Sin gle View dated 08/29/2022; Chest Single View dated 08/27/2022 FINDINGS: Portable technique limits examination quality. Emphysematous with prominent interstitial lung markings in both lung bases. Trace bilateral pleural e ffusions. The heart is mildly prominent in size. No displaced fractures.Dual lead pacer device is pre sent. IMPRESSION: Stable chest since 02/12/2023 prior study.
[2023-02-14] MEDS ORDERED: POTASSIUM CL SA 10 MEQ TAB PO ONE ×2 (07:37→09:00)
[2023-02-14] MEDS: ENSURE PLANT-BASED PROTEIN VANILLA 330 ML CAN PO SCH ×2 (09:00→21:00)
[2023-02-14] MEDS: LOSARTAN POTASSIUM 50 MG TABLET PO SCH ×2 (09:00→21:00)
[2023-02-14] MEDS: predniSONE 20 MG TAB PO SCH ×2 (09:34→22:04)
[2023-02-14] MEDS: SERTRALINE HCL 50 MG TAB PO SCH (09:34)
[2023-02-14] MEDS: ENOXAPARIN 40 MG/0.4 ML SQ SCH (09:35)
[2023-02-14] MEDS: VITAMIN D 1000 UNIT TAB PO SCH (09:35)
[2023-02-14] MEDS: DULERA 200/5 (MOMETASONE/FORMOTEROL) INHALER IH SCH ×2 (09:36→21:00)
--- NOTE | 2023-02-14 09:42 | RAD REPORT ---
EXAM DESCRIPTION: US - Renal Ultrasound-Complete - 02/14/2023 9:29 am CLINICAL HISTORY: isaiah, h/o renal stones, recent U/S Flank pain COMPARISON: ABDOMINAL EXAM COMPLETE dated 06/03/2008 FINDINGS: Both kidneys are somewhat small in size and echogenic. The right kidney measures 8.0 x 3.8 x 3.7 cm. No hydronephrosis, focal mass or perinephric fluid. The left kidney measures 8.0 x 3.8 x 3.3 cm.. No hydronephrosis, focal mass or perinephric fluid. The urinary bladder is incompletely distended without gross abnormality seen. IMPRESSION: Echogenic kidneys bilaterally likely representing underlying medical renal disease.
--- NOTE | 2023-02-14 11:37 | CON ---
Date of Consultation: 02/14/2023 Reason For Consultation: Elevated troponin. History Of Present Illness: An 88-year-old female, history of COPD, on oxygen at home, diastolic hea rt failure, atrial fibrillation, coronary artery disease, diabetes, and hypertension, presented to [facility] emergency room with shortness of breath, wheezing and coughing, congestion. No sputum production. No fever. Denies having any active chest pain. Past Medical History: As outlined above in HPI. Medications: Refer reconciliation sheet for detailed list. Allergies: FENTANYL, CODEINE, HYDROCODONE, MEPERIDINE, AND MORPHINE. Family History: No mention of coronary artery disease or cancer. Social History: She does not smoke at the present time. Does not drink, use any drugs. Review of Systems: All systems reviewed and they were negative except as mentioned in the HPI. Physical Examination: Vital Signs: Reviewed. Head and Neck: Pupils are equal, reactive to light. Intact eye movements. No JVD. No swelling. N mitchell is supple. Thyroid is not enlarged. Lungs: Decreased breathing sounds with scattered wheezing. No accessory muscle use or muscle retrac tion. Heart: Regular rate and rhythm. No extra sounds. Abdomen: Soft, nontender. Bowel sounds positive. No organomegaly. No masses or hernia. No rigidi ty or rebound. Extremities: No edema, clubbing, or cyanosis. Intact pulses. Skin: No rash. Neurologic: Alert, awake, oriented x3. No acute focal deficits appreciated. Lymph nodes: No cervical or axillary lymphadenopathy. Investigations: BUN is 18, creatinine 0.96. Troponin peaked at 347. Hemoglobin is 11.0. Assessment/recommendation: 1.Elevated troponin. No chest pain, but there is history of coronary artery disease and multiple ri sk factors. This is likely demand ischemia due to COPD exacerbation. Once her COPD status is contro lled, recommend to obtain a Lexiscan nuclear stress test and please obtain an echo and baby aspirin d aily. 2.COPD exacerbation, appears to be stable. Continue current management. 3.Elevated NT-proBNP, likely heart failure. Obtain an echo. 4.Dyslipidemia. Continue with statin. SR/MODL Voice ID: [id number] Report ID: [id number]
--- NOTE | 2023-02-14 12:19 | EKG ---
Test Date: 2023-02-14 Test Time: 08:15:58 Senior Clinical Project Manager: CHATA MEASUREMENT RESULTS: Intervals: Rate: 66 MN: QRSD: 80 QT: 460 QTc: 482 [place]: P: 92 MN: QRS: -42 T: 237 INTERPRETIVE STATEMENTS: Demand pacemaker, interpretation is based on intrinsic rhythm Atrial flutter with variable AV block with premature ventricular or aberrantly conducted complexes Left axis deviation ST & T wave abnormality, consider inferior ischemia ST & T wave abnormality, consider anterolateral ischemia Prolonged QT Abnormal ECG Compared to ECG 02/12/2023 12:01:50 Ventricular premature complex(es) now present ST (T wave) deviation now present Prolonged QT interval now present T-wave abnormality no longer present Possible ischemia still present Electronically Signed On 02-14-23 12:18:25 CIGARETTE MACHINE OPERATOR by Chris Strauss
--- NOTE | 2023-02-14 12:26 | EKG ---
Test Date: 2023-02-12 Test Time: 12:01:50 Computer Assembler: ALP MEASUREMENT RESULTS: Intervals: Rate: 88 [place]: QRSD: 78 QT: 388 QTc: 469 [place]: P: [place]: QRS: -49 T: 260 INTERPRETIVE STATEMENTS: Atrial flutter with variable AV block Left axis deviation T wave abnormality, consider inferolateral ischemia Abnormal ECG Compared to ECG 10/08/2022 01:00:56 T-wave abnormality now present Possible ischemia now present Myocardial infarct finding no longer present Electronically Signed On 02-14-23 12:20:49 QUALITY COMPLIANCE CONSULTANT by Chris Strauss
--- NOTE | 2023-02-14 12:56 | P.PN ---
Date of Service: 02/14/23 Subjective: Breathing continues to improve Family at bedside No acute events overnight ROS: 10 point ROS as noted above, otherwise negative Physical exam GEN: Alert, oriented, NAD HEENT: Normal conjunctiva, sclera anicteric CV: Afib rate controlled, no edema Pulm: Nonlabored respirations on 2.5L NC ABD: Soft, nontender, nondistended MSK: No joint tenderness Integumentary: No rashes Neuro: Normal speech, normal affect Vitals reviewed Assessment: Dyspnea, COPD exacerbation-on chronic O2 2.5L Suspected acute on chronic diastolic congestive heart failure Elevated troponin [place] Atrial fibrillation on chronic anticoagulation History of CVA History of CAD Insomnia Plan: Dyspnea, COPD exacerbation-on chronic O2 2.5L no fevers Continue steroids, as needed nebs Continue supplemental 02, pulmonology consult Multiple episodes of C. difficile in the past, strongly consider before providing antibiotics Suspected acute on chronic diastolic congestive heart failure Elevated troponin Last echo 2022 with normal EF, elevated right ventricular pressure, among insufficiency Has been on diuretics previously Troponin trended 79.5-347.2-233.[address]-recommend stress test [place] Blood pressures are on the low side yesterday, Lasix discontinued Continue gentle hydration Renal ultrasound obtained showed echogenic kidneys bilaterally likely representing underlying medical renal disease Consider nephrology consult if there is continued worsening Atrial fibrillation on chronic anticoagulation Continue carvedilol, Eliquis History of CVA History of CAD Insomnia Home medications continued DVT PPX: Continue Eliquis 2.5 Code status: DNR Discharge Plan: Home Plan to discharge in: 24-48 Hours Time Spent Managing Pts Care (In Minutes): 35
[2023-02-14] MEDS: BREXPIPRAZOLE 1 MG PO SCH (21:00)
[2023-02-14] MEDS: ATORVASTATIN 10 MG TAB PO SCH (22:04)
[2023-02-15] MEDS: NA CHLORIDE 0.9% 1,000 ML IV SCH ×2 (01:11→03:15)
[2023-02-15 02:57] LABS: Absolute Lymphocytes (CBC) 0.5 K/uL (0.7-4.9); Hematocrit 29.1 % (36.0-45.0); Lymphocytes % 6.8 % (15.3-44.8); MCV 89.4 fL (80-100); MPV 7.9 fL (7.6-11.3); Platelets 195 thou/uL (152-406); RBC Red Blood Cell Count 3.26 M/uL (3.86-4.86)
[2023-02-15 03:10] LABS: Albumin 2.7 g/dL (3.4-5.0); Bilirubin Total 0.4 mg/dL (0.2-1.0); Magnesium 1.9 mg/dL (1.6-2.4); Potassium 4.1 mEq/L (3.5-5.1); Protein, Total 5.6 g/dL (6.4-8.2)
[2023-02-15] MEDS: carvediloL 3.125 MG TAB PO SCH (06:00)
[2023-02-15] MEDS ORDERED: REGADENOSON 0.4 MG/5 ML SYR IV ONE (08:57)
[2023-02-15] MEDS: ENSURE PLANT-BASED PROTEIN VANILLA 330 ML CAN PO SCH (09:00)
--- NOTE | 2023-02-15 09:59 | RAD REPORT ---
EXAM DESCRIPTION: NM - Rest Stress Cardiac Imaging - 02/15/2023 9:52 am CLINICAL HISTORY: elevated troponin COMPARISON: None. TECHNIQUE: The patient was administered 10.6 mCi of Tc 99m Sestamibi prior to resting SPECT imaging of the heart. The patient was then administered 29.9 mCi of Tc 99m Sestamibi following exercise or ph armacologic stress. Multiplanar SPECT images were reviewed. FINDINGS: There is uniformity of radiotracer uptake involving the entire left ventricular myocardiu m on rest and stress images. The left ventricular ejection fraction equals 75% IMPRESSION: Negative for a myocardial perfusion defect
[2023-02-15] MEDS: VITAMIN D 1000 UNIT TAB PO SCH (11:09)
[2023-02-15] MEDS: ENOXAPARIN 40 MG/0.4 ML SQ SCH (11:10)
[2023-02-15] MEDS: predniSONE 20 MG TAB PO SCH (11:10)
[2023-02-15] MEDS: SERTRALINE HCL 50 MG TAB PO SCH (11:10)
[2023-02-15] MEDS: DULERA 200/5 (MOMETASONE/FORMOTEROL) INHALER IH SCH (11:11)
[2023-02-15] MEDS: LOSARTAN POTASSIUM 50 MG TABLET PO SCH (11:14)
[2023-02-15 12:27] VITALS: BP 117/55; TEMP 98.3
--- NOTE | 2023-02-15 13:37 | P.DS ---
Admission Date: 02/12/23 Discharge Date: 02/15/23 Disposition: DC HOME/HOME HEALTH CARE Discharge Condition: FAIR Reason for Admission: COPD exacerbation Brief History of Present Illness: 88-year-old female with history of COPD on chronic home O22.5 L, CHFchronic diastolic, atrial fibrillation on chronic anticoagulation, CAD, [id number] diabetes multiple C. difficile infections in the past presented to the emergency department with complaint of shortness of breath. Her symptoms began around January 31, she was having significant dyspnea on exertion, cough with increased sputum production the past few days. She was evaluated in the emergency department labs are significant for glucose 126 high-sensitivity opponent initially 79.5 AST 119 ALT 84 alk phos 122 BNP 7362 lactic acid 1.0 COVID test was negative chest x-ray was obtained which showed prominent COPD. Last echocardiogram 07/28/2022 with LVEF 76%, normal wall motion, elevated right ventricular systolic pressure, pulmonic insufficiency. In the ER she was given Solu-Medrol, IV Lasix ED provider wishes to admit for further management. Hospital Course: Diagnosis Dyspnea, COPD exacerbation-on chronic O2 2.5L Suspected acute on chronic diastolic congestive heart failure Elevated troponin [place] Atrial fibrillation on chronic anticoagulation History of CVA History of CAD Insomnia Patient admitted to the medical floor on the following medical problems addressed: Dyspnea, COPD exacerbation-on chronic O2 2.5L no fevers Managed with steroids, bronchodilators and nebulizers. Pulmonary Dr. Worthington assisted with management Acute on chronic diastolic congestive heart failure Elevated troponin Last echo 2022 with normal EF, elevated right ventricular pressure, among insufficiency Has been on diuretics previously Troponin trended 79.5-347.2-233.3 Patient was briefly treated with IV Lasix. Patient seen and evaluated by cardiology Dr. Strauss. Stress test done which was reported as negative. No ACS. Patient is on Eliquis anticoagulation. KY Lasix discontinued [place] resolved with brief IV hydration. Renal ultrasound obtained showed echogenic kidneys bilaterally likely representing underlying medical renal disease Atrial fibrillation on chronic anticoagulation Continued carvedilol, Eliquis History of CVA History of CAD Insomnia Home medications continued. Overall patient has clinically improved to baseline and deemed stable for discharge. Vital Signs/Physical Exam: Temp Pulse Resp BP Pulse Ox 98.3 F 67 16 117/55 L 100 02/15/23 12:00 02/15/23 12:00 02/15/23 12:00 02/15/23 12:00 02/15/23 12:00 General: Alert, In no apparent distress, Oriented x3 HEENT: Mucous membr. moist/pink, Sclerae nonicteric Neck: Supple, JVD not distended Respiratory: Clear to auscultation bilaterally, Normal air movement Cardiovascular: No edema, Normal S1 S2, Irregular heart rate/rhythm Gastrointestinal: Soft and benign, Non-distended Musculoskeletal: No swelling Integumentary: No rashes, No cyanosis Neurological: Normal strength at 5/5 x4 extr Laboratory Data at Discharge: WBC 7.90 thou/uL (4.3-10.9) 02/15/23 02:18 Hgb 10.2 g/dL (12.0-15.0) L 02/15/23 02:18 Hct 29.1 % (36.0-45.0) L 02/15/23 02:18 Plt Count 195 thou/uL (152-406) 02/15/23 02:18 PT 16.6 SECONDS (9.5-12.5) H 02/12/23 12:30 INR 1.53 02/12/23 12:30 APTT 32.4 SECONDS (24.3-36.9) 02/12/23 12:30 Sodium 137 mEq/L (136-145) 02/15/23 02:18 Potassium 4.1 mEq/L (3.5-5.1) 02/15/23 02:18 BUN 38 mg/dL (7-18) H 02/15/23 02:18 Creatinine 1.09 mg/dL (0.55-1.02) H 02/15/23 02:18 Glucose 129 mg/dL (74-106) H 02/15/23 02:18 Magnesium 1.9 mg/dL (1.6-2.4) 02/15/23 02:18 Total Bilirubin 0.4 mg/dL (0.2-1.0) 02/15/23 02:18 AST 48 U/L (15-37) H 02/15/23 02:18 ALT 65 U/L (13-56) H 02/15/23 02:18 Alkaline Phosphatase 80 U/L (45-117) 02/15/23 02:18 Triglycerides 58 mg/dL (<150) 02/13/23 03:04 Cholesterol 143 mg/dL (<200) 02/13/23 03:04 HDL Cholesterol 62 mg/dL (40-60) H 02/13/23 03:04 Cholesterol/HDL Ratio 2.31 02/13/23 03:04 Home Medications: Atorvastatin Calcium [Lipitor*] 10 mg PO BEDTIME 08/19/21 Budesonide/Formoterol Fumarate [Symbicort 80-4.5 Mcg Inhaler] 2 puff IH Q4HP PRN 08/25/21 Albuterol Inhaler [Ventolin Inhaler*] 2 puff IH Q6H PRN 08/21/22 Apixaban [Eliquis] 2.5 mg PO BID 08/21/22 Carvedilol [Coreg] 3.125 mg PO BID 08/21/22 Cholecalciferol (Vitamin D3) [Vitamin D3] 2,000 unit PO DAILY 08/21/22 Losartan Potassium [Cozaar] 12.5 mg PO BID 08/21/22 Sertraline [Zoloft*] 50 mg PO DAILY 08/21/22 Zolpidem Tartrate 10 mg PO BEDTIME 08/21/22 Brexpiprazole [Rexulti] 1 mg PO BEDTIME 08/22/22 Nutritional Supplement/Fiber [Ensure Plant-Based Protein Vanilla] 330 ml PO BID #60 bottle 10/16/22 predniSONE [Prednisone*] 20 mg PO BID #10 tab 02/15/23 New Medications: predniSONE [Prednisone*] 20 mg PO BID #10 tab Diet: AHA Activity: Fall precautions Followup: Hermilo Worthington MD [ACTIVE - CAN ADMIT] - 1-2 Weeks ROCIO HERNÁNDEZ [Primary Care Provider] - Time spent managing pt's care (in minutes): 34
[2023-02-15 17:24] VITALS: O2SAT 100
--- NOTE | 2023-02-16 11:20 | TREADPHA ---
DX: CHEST PAIN Date of Study: 02/14/2023 Ht: 5' 0 " Wt: 95 lb 0 oz Consulting Physician: DANIS MEDICATIONS: TYLENOL, PROVENTIL, ELIQUIS, LIPITOR, COREG, VITAMIN D, LOVENOX, ATROVENT, COZAAR, MELATONIN, DELTASONE, ZOLOFT, AMBIEN HISTORY: 88 YEAR OLD FEMALE WITH COMPLAINTS OF SHORTNESS OF BREATH. HISTORY OF HYPERTENSION, ATRIAL FIBRILLATION, PACEMAKER, CEREBRAL VASCULAR ACCIDENT, CHRONIC OBSTRUCTIVE PULMONARY DISEASE, HYPERLIPIDEMIA, ATRIAL FLUTTER, CONGESTIVE HEART FAILURE, DEMENTIA PHYSICIAL EXAMINATION: RESTING B.P.: 60 RESTING H.R.: 141/69 RESTING EKG: PACED WITH ATRIAL FLUTTER PROTOCOL: PHARMACOLOGIC EXERCISE TIME: 3:30 B.P. AT PEAK STRESS: 137/57 IMPRESSION: LEXISCAN INJECTED. CARDIOLITE INJECTED - SEE NUCLEAR MEDICINE REPORT. PREMATURE VENTRICULAR COMPLEXES NOTED THROUGHOUT. PATIENT STATES SHORTNESS OF BREATH AND NAUSEA. NO VENTRICULAR TACHYCARDIA, SUPRAVENTRICULAR TACHYCARDIA, OR PREMATURE ATRIAL COMPLEXES NOTED. PATIENT DENIES CHEST PAIN. NON-DIAGNOSTIC ELECTROCARDIOGRAM PART DUE TO ABNORMAL BASELINE.
== END 2023-02-15 14:59 | disposition home health service (06) | DRG 280 ==
LOC: ER 11:48 → ERHOLD 14:20 → 2ND 14:32
PROVIDERS: ADMIT Hospitalist; ATTEND Internal Medicine
DX: I11.0 Hypertensive heart disease with heart failure (principal); I50.33 Acute on chronic diastolic (congestive) heart failure; I21.A1 Myocardial infarction type 2; J44.1 Chronic obstructive pulmonary disease with (acute) exacerbation; I48.92 Unspecified atrial flutter; N17.9 Acute kidney failure, unspecified; E11.9 Type 2 diabetes mellitus without complications; I48.91 Unspecified atrial fibrillation; G47.00 Insomnia, unspecified; I25.2 Old myocardial infarction; I25.10 Atherosclerotic heart disease of native coronary artery without angina pectoris; R77.8 Other specified abnormalities of plasma proteins; Z66 Do not resuscitate; Z88.5 Allergy status to narcotic agent; Z95.0 Presence of cardiac pacemaker; Z88.2 Allergy status to sulfonamides; Z88.8 Allergy status to other drugs, medicaments and biological substances; Z11.52 Encounter for screening for COVID-19; Z86.73 Personal history of transient ischemic attack (TIA), and cerebral infarction without residual deficits; Z99.81 Dependence on supplemental oxygen; Z79.01 Long term (current) use of anticoagulants; Z79.51 Long term (current) use of inhaled steroids; Z91.014 Allergy to mammalian meats; Z79.52 Long term (current) use of systemic steroids; Z79.899 Other long term (current) drug therapy; Z90.710 Acquired absence of both cervix and uterus
CPT/HCPCS: 36415; 71045; 76770; 78452; 80053; 80061; 81001; 83605; 83735; 83880; 84439; 84443; 84484; 85025; 85610; 85730; 87040; 87804; 87811; 93005; 93017; 96374; 96375; 99285; A9500; J1650; J1940; J2785; J2930; J3535; J7030; J7050; J7512

== ENCOUNTER 2023-02-28 18:43 | Inpatient (IN) | payer OTHER ==
--- OUTSIDE RECORDS SUMMARY | 2023-02-28 18:51 | XMS REPORT | Continuity of Care Document ---
Author Name Unknown Address [address] [facility]. [address] [place] [address] [facility] Address [address] [facility] [address] [place] [address] Care Team Providers Care Investigator Vice Name Role Phone DENNIS HARRIS Primary Care Physician Unav LAWANDA Garcia Attending Clinician Unavailable LAWANDA ALCARAZ Attending Clinician Unavailable Gissel Ortega Cardiology Attending Clinician Unavailable Lawanda Alcaraz DO Attending Clinician Doctor Unassigned, [place] Attending Clinician U reza Therapist, Adc Respiratory Attending Clinician U Una Pizarro MD Attending Clinician [phone] UNA HALL Attending Clinician Unavailable GISSELL HARDIN Attending Clinician Gissell Perez MD Attending Clinician [phone]- [phone] ALTAF QUEVEDO Attending Clinician Unavailable ALTAF QUEVEDO Attending Clinician Unavailable Katya Baum RN Attending Clinician Unavailable Brittanie Sepulveda Attending Clinician [phone] Padma Abraham MD Attending Clinician [phone] MAO Attending Clinician Qiana silva Malu, Musaddiq Admitting Clinician Unavailable GISSELL HARDIN Admitting Clinician Gissell Perez MD Admitting Clinician [phone] ALTAF QUEVEDO Admitting Clinician Unavailable Mufti MCCABE, Padma Admitting Clinician [phone] MAO Admitting Clinician Qiana silva Payers Payer Name Policy Type Policy Number Effective Date Expirati on Date Source [employer]AGE [id number] 2021 00:00:00 Problems Condition Name Condition Details Condition Category Status Onset Date Resolution Date Last Treatment Date Treating Clinician Comments Source Rectal bleeding Rectal bleeding Disease Active 10-02 00:00: 00 [facility] Allergies, Adverse Reactions, Alerts Allergy Name Allergy Type Status Severity Reaction(s) Onset Date Inactive Date Treating Clinician Comments Source lidocain e DA Active U RASH-UNKNOWN 09-19 00:00: 00 [facility] Penicill ins DA Active MO HIVES 09-16 00:00: 00 [facility] Sulfa (Sulfona mide Antibiot ics) DA Active MO MAKES HER PASS OUT 09-16 00:00: 00 [facility] morphine DA Active SC HIVES 09-16 00:00: 00 [facility] codeine DA Active MO VOMITING 8 00:00: 00 [facility] hydrocod one DA Active MO VOMITING - 00:00: 00 [facility] fentanyl DA Active SV COMA 8- 00:00: 00 [facility] meperidi ne DA Active MO THROW UP 09-16 00:00: 00 [facility] PORK DERIVED (PORCINE ) DRUG INGREDI Active Hives 10-03 00:00: 00 [facility] Pork Derived (Porcine ) Propensi ty to adverse reaction s Active Hives 10-03 00:00: 00 Eating pork gave her hives as a child [facility] HYDROCOD ONE DRUG INGREDI Active N/V 10-02 00:00: 00 [facility] FENTANYL DRUG INGREDI Active Other-Cmnt 10-02 00:00: 00 [facility] Codeine Propensi ty to adverse reaction s Active Nausea and/or Vomiting 10-02 00:00: 00 [facility] Meperidi ne Propensi ty to adverse reaction s Active Nausea and/or Vomiting 10-02 00:00: 00 [facility] Fentanyl Propensi ty to adverse reaction s Active Other - See comments 10-02 00:00: 00 "Put me in a coma" [facility] Hydrocod one Propensi ty to adverse reaction s Active Nausea and/or Vomiting 10-02 00:00: 00 [facility] Penicill ins Propensi ty to adverse reaction s Active Hives 10-02 00:00: 00 [facility] Sulfa (Sulfona mide Antibiot ics) Propensi ty to adverse reaction s Active Other - See comments 10-02 00:00: 00 Lethargy, "They can't wake me up" [facility] MEPERIDI NE DRUG INGREDI Active N/V 10-02 00:00: 00 [facility] PENICILL INS Drug Class Active Hives 10-02 00:00: 00 [facility] SULFA (SULFONA MIDE ANTIBIOT ICS) Drug Class Active Other-Cmnt 10-02 00:00: 00 [facility] CODEINE DRUG INGREDI Active N/V 10-02 00:00: 00 [facility] TRAMADOL DRUG INGREDI Active Med N/V 2017-02 00:00: 00 [facility] Tramadol Propensi ty to adverse reaction s Active Nausea and/or Vomiting 2017-02 00:00: 00 Hallucina tions [facility] NO KNOWN ALLERGIE S Drug Class Active [facility] Social History Social Habit Start Date Stop Date Quantity Comments Source History of tobacco use Cigarette Smoker [facility] Gender identity [facility] Sexual orientation [facility] Exposure to SARS-CoV-2 (event) 2022-04-04 00:00:00 2022-04-14 12:01:00 Not sure [facility] Alcohol intake 2022-01-14 00:00:00 2022-01-14 00:00:00 Ex-drinker (finding) [facility] History of Social function 2022-01-13 00:00:00 2022-01-13 00:00:00 [facility] Tobacco use and exposure 2022-01-08 00:00:00 2022-01-08 00:00:00 Smokeless tobacco non-user [facility] History SDOH Food Worry 2021-10-06 00:00:00 2021-10-06 00:00:00 1 [facility] History SDOH Food Scarcity 2021-10-06 00:00:00 2021-10-06 00:00:00 1 [facility] History SDOH Transport Med 2021-10-06 00:00:00 2021-10-06 00:00:00 2 [facility] History SDOH Transport Non-Med 2021-10-06 00:00:00 2021-10-06 00:00:00 2 [facility] Sex Assigned At 1935 00:00:00 1935 00:00:00 [facility] Smoking Status Start Date Stop Date Source Never smoked tobacco [facility] Ex-smoker 2021-10-02 00:00:00 2021-10-02 00:00:00 [facility] Medications Ordered Medication Name Filled Medication Name Start Date Stop Date Current Medication? Ordering Clinician Indication Dosage Frequency Signature (SIG) Comments Components Source albuterol 90 mcg/actuati on inhaler 08-31 00:00: 00 Yes [id number] 2{puff} Inhale 2 Puffs every 6 (six) hours as needed for Wheezing or Shortness of Breath. [facility] albuterol 90 mcg/actuati on inhaler 08-31 00:00: 00 Yes [id number] 2{puff} Inhale 2 Puffs every 6 (six) hours as needed for Wheezing or Shortness of Breath. [facility] water for irrigation irrigation solution 2021-02 16:37: 00 01-13 17:56 :43 No PRN, Starting on Tue01/13/22 at 1037, Until Tue01/13/22 at 1156, Routine, Intra-op [facility] simethicone (GAS RELIEF (SIMETHICON E)) 40 mg/0.6 mL drops 2021-02 16:37: 00 01-13 17:56 :43 No PRN, Starting on Tue01/13/22 at 1037, Until Tue01/13/22 at 1156, Routine, Intra-op [facility] lactated ringers IV infusion 1,000 mL 2021-02 16:15: 00 01-13 16:10 :00 No 1000mL at 42 mL/hr, 1,000 mL, IV Infusion, ONCE, 1 dose, On Tue01/13/22 at 1015, Routine, DSU Pre-op [facility] lactated ringers IV infusion 1,000 mL 2021-02 16:15: 00 01-13 16:10 :00 No 1000mL at 42 mL/hr, 1,000 mL, IV Infusion, ONCE, 1 dose, On Tue01/13/22 at 1015, Routine, DSU Pre-op [facility] zolpidem 5 mg tablet 2021-02 13:24: 06 Yes 5mg Take 5 mg by mouth at bedtime. [facility] brexpiprazo le (REXULTI) 1 mg Tab 2021-02 13:24: 06 Yes 1mg Take 1 mg by mouth daily. [facility] hydrALAZINE 25 mg tablet 2021-02 13:24: 06 Yes 25mg Take 25 mg by mouth in the morning and 25 mg in the evening. [facility] FLUoxetine 20 mg capsule 2021-02 13:24: 06 Yes 20mg Take 20 mg by mouth in the morning. [facility] atorvastati n 10 mg tablet 2021-02 13:24: 06 Yes 10mg Take 10 mg by mouth at bedtime. [facility] albuterol 0.63 mg/3 mL nebulizer solution 2021-02 13:24: 06 Yes 1{ampul e} Inhale 1 Ampule as needed. [facility] albuterol 90 mcg/actuati on inhaler 2021-02 13:24: 06 Yes 2{puff} Inhale 2 Puffs as needed. [facility] ARIPiprazol e 2 mg tablet 2021-02 13:24: 06 Yes 2mg Take 2 mg by mouth in the morning. [facility] carvediloL 3.125 mg tablet 2021-02 13:24: 06 Yes 3.125mg Take 3.125 mg by mouth in the morning and 3.125 mg in the evening. Take with meals. [facility] furosemide 20 mg tablet 2021-02 13:24: 06 Yes 10mg Take 10 mg by mouth every other day. [facility] apixaban (ELIQUIS) 2.5 mg tablet 2021-02 13:24: 06 Yes 2.5mg Take 2.5 mg by mouth in the morning and 2.5 mg in the evening. [facility] zolpidem 5 mg tablet 2021-02 13:24: 06 Yes 5mg Take 5 mg by mouth at bedtime. [facility] brexpiprazo le (REXULTI) 1 mg Tab 2021-02 13:24: 06 Yes 1mg Take 1 mg by mouth daily. [facility] hydrALAZINE 25 mg tablet 2021-02 13:24: 06 Yes 25mg Take 25 mg by mouth in the morning and 25 mg in the evening. [facility] FLUoxetine 20 mg capsule 2021-02 13:24: 06 Yes 20mg Take 20 mg by mouth in the morning. [facility] atorvastati n 10 mg tablet 2021-02 13:24: 06 Yes 10mg Take 10 mg by mouth at bedtime. [facility] albuterol 0.63 mg/3 mL nebulizer solution 2021-02 13:24: 06 Yes 1{ampul e} Inhale 1 Ampule as needed. [facility] albuterol 90 mcg/actuati on inhaler 2021-02 13:24: 06 Yes 2{puff} Inhale 2 Puffs as needed. [facility] ARIPiprazol e 2 mg tablet 2021-02 13:24: 06 Yes 2mg Take 2 mg by mouth in the morning. [facility] carvediloL 3.125 mg tablet 2021-02 13:24: 06 Yes 3.125mg Take 3.125 mg by mouth in the morning and 3.125 mg in the evening. Take with meals. [facility] furosemide 20 mg tablet 2021-02 13:24: 06 Yes 10mg Take 10 mg by mouth every other day. [facility] apixaban (ELIQUIS) 2.5 mg tablet 2021-02 13:24: 06 Yes 2.5mg Take 2.5 mg by mouth in the morning and 2.5 mg in the evening. [facility] zolpidem 5 mg tablet 2021-02 13:24: 06 Yes 5mg Take 5 mg by mouth at bedtime. [facility] brexpiprazo le (REXULTI) 1 mg Tab 2021-02 13:24: 06 Yes 1mg Take 1 mg by mouth daily. [facility] hydrALAZINE 25 mg tablet 2021-02 13:24: 06 Yes 25mg Take 25 mg by mouth in the morning and 25 mg in the evening. [facility] FLUoxetine 20 mg capsule 2021-02 13:24: 06 Yes 20mg Take 20 mg by mouth in the morning. [facility] atorvastati n 10 mg tablet 2021-02 13:24: 06 Yes 10mg Take 10 mg by mouth at bedtime. [facility] albuterol 0.63 mg/3 mL nebulizer solution 2021-02 13:24: 06 Yes 1{ampul e} Inhale 1 Ampule as needed. [facility] albuterol 90 mcg/actuati on inhaler 2021-02 13:24: 06 Yes 2{puff} Inhale 2 Puffs as needed. [facility] ARIPiprazol e 2 mg tablet 2021-02 13:24: 06 Yes 2mg Take 2 mg by mouth in the morning. [facility] carvediloL 3.125 mg tablet 2021-02 13:24: 06 Yes 3.125mg Take 3.125 mg by mouth in the morning and 3.125 mg in the evening. Take with meals. [facility] furosemide 20 mg tablet 2021-02 13:24: 06 Yes 10mg Take 10 mg by mouth every other day. [facility] apixaban (ELIQUIS) 2.5 mg tablet 2021-02 13:24: 06 Yes 2.5mg Take 2.5 mg by mouth in the morning and 2.5 mg in the evening. [facility] zolpidem 5 mg tablet 2021-02 13:24: 06 Yes 5mg Take 5 mg by mouth at bedtime. [facility] brexpiprazo le (REXULTI) 1 mg Tab 2021-02 13:24: 06 Yes 1mg Take 1 mg by mouth daily. [facility] hydrALAZINE 25 mg tablet 2021-02 13:24: 06 Yes 25mg Take 25 mg by mouth in the morning and 25 mg in the evening. [facility] FLUoxetine 20 mg capsule 2021-02 13:24: 06 Yes 20mg Take 20 mg by mouth in the morning. [facility] atorvastati n 10 mg tablet 2021-02 13:24: 06 Yes 10mg Take 10 mg by mouth at bedtime. [facility] albuterol 0.63 mg/3 mL nebulizer solution 2021-02 13:24: 06 Yes 1{ampul e} Inhale 1 Ampule as needed. [facility] albuterol 90 mcg/actuati on inhaler 2021-02 13:24: 06 Yes 2{puff} Inhale 2 Puffs as needed. [facility] ARIPiprazol e 2 mg tablet 2021-02 13:24: 06 Yes 2mg Take 2 mg by mouth in the morning. [facility] carvediloL 3.125 mg tablet 2021-02 13:24: 06 Yes 3.125mg Take 3.125 mg by mouth in the morning and 3.125 mg in the evening. Take with meals. [facility] furosemide 20 mg tablet 2021-02 13:24: 06 Yes 10mg Take 10 mg by mouth every other day. [facility] apixaban (ELIQUIS) 2.5 mg tablet 2021-02 13:24: 06 Yes 2.5mg Take 2.5 mg by mouth in the morning and 2.5 mg in the evening. [facility] zolpidem 5 mg tablet 2021-02 13:24: 06 Yes 5mg Take 5 mg by mouth at bedtime. [facility] brexpiprazo le (REXULTI) 1 mg Tab 2021-02 13:24: 06 Yes 1mg Take 1 mg by mouth daily. [facility] hydrALAZINE 25 mg tablet 2021-02 13:24: 06 Yes 25mg Take 25 mg by mouth in the morning and 25 mg in the evening. [facility] FLUoxetine 20 mg capsule 2021-02 13:24: 06 Yes 20mg Take 20 mg by mouth in the morning. [facility] atorvastati n 10 mg tablet 2021-02 13:24: 06 Yes 10mg Take 10 mg by mouth at bedtime. [facility] albuterol 0.63 mg/3 mL nebulizer solution 2021-02 13:24: 06 Yes 1{ampul e} Inhale 1 Ampule as needed. [facility] albuterol 90 mcg/actuati on inhaler 2021-02 13:24: 06 Yes 2{puff} Inhale 2 Puffs as needed. [facility] ARIPiprazol e 2 mg tablet 2021-02 13:24: 06 Yes 2mg Take 2 mg by mouth in the morning. [facility] carvediloL 3.125 mg tablet 2021-02 13:24: 06 Yes 3.125mg Take 3.125 mg by mouth in the morning and 3.125 mg in the evening. Take with meals. [facility] furosemide 20 mg tablet 2021-02 13:24: 06 Yes 10mg Take 10 mg by mouth every other day. [facility] apixaban (ELIQUIS) 2.5 mg tablet 2021-02 13:24: 06 Yes 2.5mg Take 2.5 mg by mouth in the morning and 2.5 mg in the evening. [facility] zolpidem 5 mg tablet 2021-02 13:24: 06 Yes 5mg Take 5 mg by mouth at bedtime. [facility] brexpiprazo le (REXULTI) 1 mg Tab 2021-02 13:24: 06 Yes 1mg Take 1 mg by mouth daily. [facility] hydrALAZINE 25 mg tablet 2021-02 13:24: 06 Yes 25mg Take 25 mg by mouth in the morning and 25 mg in the evening. [facility] FLUoxetine 20 mg capsule 2021-02 13:24: 06 Yes 20mg Take 20 mg by mouth in the morning. [facility] atorvastati n 10 mg tablet 2021-02 13:24: 06 Yes 10mg Take 10 mg by mouth at bedtime. [facility] albuterol 0.63 mg/3 mL nebulizer solution 2021-02 13:24: 06 Yes 1{ampul e} Inhale 1 Ampule as needed. [facility] albuterol 90 mcg/actuati on inhaler 2021-02 13:24: 06 Yes 2{puff} Inhale 2 Puffs as needed. [facility] ARIPiprazol e 2 mg tablet 2021-02 13:24: 06 Yes 2mg Take 2 mg by mouth in the morning. [facility] carvediloL 3.125 mg tablet 2021-02 13:24: 06 Yes 3.125mg Take 3.125 mg by mouth in the morning and 3.125 mg in the evening. Take with meals. [facility] furosemide 20 mg tablet 2021-02 13:24: 06 Yes 10mg Take 10 mg by mouth every other day. [facility] apixaban (ELIQUIS) 2.5 mg tablet 2021-02 13:24: 06 Yes 2.5mg Take 2.5 mg by mouth in the morning and 2.5 mg in the evening. [facility] zolpidem 5 mg tablet 2021-02 13:24: 06 Yes 5mg Take 5 mg by mouth at bedtime. [facility] brexpiprazo le (REXULTI) 1 mg Tab 2021-02 13:24: 06 Yes 1mg Take 1 mg by mouth daily. [facility] hydrALAZINE 25 mg tablet 2021-02 13:24: 06 Yes 25mg Take 25 mg by mouth in the morning and 25 mg in the evening. [facility] FLUoxetine 20 mg capsule 2021-02 13:24: 06 Yes 20mg Take 20 mg by mouth in the morning. [facility] atorvastati n 10 mg tablet 2021-02 13:24: 06 Yes 10mg Take 10 mg by mouth at bedtime. [facility] albuterol 0.63 mg/3 mL nebulizer solution 2021-02 13:24: 06 Yes 1{ampul e} Inhale 1 Ampule as needed. [facility] albuterol 90 mcg/actuati on inhaler 2021-02 13:24: 06 Yes 2{puff} Inhale 2 Puffs as needed. [facility] ARIPiprazol e 2 mg tablet 2021-02 13:24: 06 Yes 2mg Take 2 mg by mouth in the morning. [facility] carvediloL 3.125 mg tablet 2021-02 13:24: 06 Yes 3.125mg Take 3.125 mg by mouth in the morning and 3.125 mg in the evening. Take with meals. [facility] furosemide 20 mg tablet 2021-02 13:24: 06 Yes 10mg Take 10 mg by mouth every other day. [facility] apixaban (ELIQUIS) 2.5 mg tablet 2021-02 13:24: 06 Yes 2.5mg Take 2.5 mg by mouth in the morning and 2.5 mg in the evening. [facility] zolpidem 5 mg tablet 2021-02 13:24: 06 Yes 5mg Take 5 mg by mouth at bedtime. [facility] brexpiprazo le (REXULTI) 1 mg Tab 2021-02 13:24: 06 Yes 1mg Take 1 mg by mouth daily. [facility] hydrALAZINE 25 mg tablet 2021-02 13:24: 06 Yes 25mg Take 25 mg by mouth in the morning and 25 mg in the evening. [facility] FLUoxetine 20 mg capsule 2021-02 13:24: 06 Yes 20mg Take 20 mg by mouth in the morning. [facility] atorvastati n 10 mg tablet 2021-02 13:24: 06 Yes 10mg Take 10 mg by mouth at bedtime. [facility] albuterol 0.63 mg/3 mL nebulizer solution 2021-02 13:24: 06 Yes 1{ampul e} Inhale 1 Ampule as needed. [facility] albuterol 90 mcg/actuati on inhaler 2021-02 13:24: 06 Yes 2{puff} Inhale 2 Puffs as needed. [facility] ARIPiprazol e 2 mg tablet 2021-02 13:24: 06 Yes 2mg Take 2 mg by mouth in the morning. [facility] carvediloL 3.125 mg tablet 2021-02 13:24: 06 Yes 3.125mg Take 3.125 mg by mouth in the morning and 3.125 mg in the evening. Take with meals. [facility] furosemide 20 mg tablet 2021-02 13:24: 06 Yes 10mg Take 10 mg by mouth every other day. [facility] apixaban (ELIQUIS) 2.5 mg tablet 2021-02 13:24: 06 Yes 2.5mg Take 2.5 mg by mouth in the morning and 2.5 mg in the evening. [facility] zolpidem 5 mg tablet 2021-02 13:24: 06 Yes 5mg Take 5 mg by mouth at bedtime. [facility] brexpiprazo le (REXULTI) 1 mg Tab 2021-02 13:24: 06 Yes 1mg Take 1 mg by mouth daily. [facility] hydrALAZINE 25 mg tablet 2021-02 13:24: 06 Yes 25mg Take 25 mg by mouth in the morning and 25 mg in the evening. [facility] FLUoxetine 20 mg capsule 2021-02 13:24: 06 Yes 20mg Take 20 mg by mouth in the morning. [facility] atorvastati n 10 mg tablet 2021-02 13:24: 06 Yes 10mg Take 10 mg by mouth at bedtime. [facility] albuterol 0.63 mg/3 mL nebulizer solution 2021-02 13:24: 06 Yes 1{ampul e} Inhale 1 Ampule as needed. [facility] albuterol 90 mcg/actuati on inhaler 2021-02 13:24: 06 Yes 2{puff} Inhale 2 Puffs as needed. [facility] ARIPiprazol e 2 mg tablet 2021-02 13:24: 06 Yes 2mg Take 2 mg by mouth in the morning. [facility] carvediloL 3.125 mg tablet 2021-02 13:24: 06 Yes 3.125mg Take 3.125 mg by mouth in the morning and 3.125 mg in the evening. Take with meals. [facility] furosemide 20 mg tablet 2021-02 13:24: 06 Yes 10mg Take 10 mg by mouth every other day. [facility] apixaban (ELIQUIS) 2.5 mg tablet 2021-02 13:24: 06 Yes 2.5mg Take 2.5 mg by mouth in the morning and 2.5 mg in the evening. [facility] methylpredn isolone sod succ (SOLU-MEDRO L) injection 125 mg 10-16 02:47: 00 10-16 02:51 :00 No 125mg 125 mg, Intravenou s, ONCE, 1 dose, On [facility] 10/15/21 at 2200, 2 mL [facility] acetaminoph en (TYLENOL) tablet 1,000 mg 10-16 01:46: 00 10-16 02:07 :00 No 1000mg 1,000 mg, Oral, ONCE NOW, 1 dose, On [facility] 10/15/21 at 2100, Routine [facility] albuterol (VENTOLIN) inhaler 2 Puff 10-16 01:45: 00 10-16 02:18 :00 No 2{puff} 2 Puff, Inhalation , ONCE, 1 dose, On [facility] 10/15/21 at 2100, HIEU [facility] NaCl 0.9% (NS) bolus infusion 500 mL 10-16 01:45: 00 10-16 02:53 :00 No 500mL at 999 mL/hr, 500 mL, IV Infusion, ONCE, 1 dose, On [facility] 10/15/21 at 2045, HIEU [facility] nirmatrelvi r-ritonavir (PAXLOVID, EUA,) 150-100 mg tablet 10-15 00:00: 00 10-21 04:59 :00 No [id number] 2{tbl} Take 2 tablets by mouth in the morning and 2 tablets in the evening. Do all this for 5 days. [facility] blake b, No Charge, 175 mg/2 mL (87.5 mg/mL) Soln 10-15 00:00: 00 10-16 04:59 :00 No [id number] 175mg Inject 2 mL as directed once now for 1 dose. [facility] zolpidem (AMBIEN) 5 mg tablet 10-05 17:52: 08 Yes 5mg Take 5 mg by mouth at bedtime. [facility] brexpiprazo le (REXULTI) 1 mg Tab 10-05 17:52: 08 Yes 1mg Take 1 mg by mouth daily. [facility] hydrALAZINE 25 mg tablet 10-05 17:52: 08 Yes 25mg Take 25 mg by mouth in the morning and 25 mg in the evening. [facility] FLUoxetine 10 mg capsule 10-05 17:52: 08 Yes 10mg Take 10 mg by mouth in the morning. [facility] atorvastati n (LIPITOR) 10 mg tablet 10-05 17:52: 08 Yes 10mg Take 10 mg by mouth at bedtime. [facility] zolpidem (AMBIEN) 5 mg tablet 10-05 17:52: 08 Yes 5mg Take 5 mg by mouth at bedtime. [facility] brexpiprazo le (REXULTI) 1 mg Tab 10-05 17:52: 08 Yes 1mg Take 1 mg by mouth daily. [facility] hydrALAZINE 25 mg tablet 10-05 17:52: 08 Yes 25mg Take 25 mg by mouth in the morning and 25 mg in the evening. [facility] FLUoxetine 10 mg capsule 10-05 17:52: 08 Yes 10mg Take 10 mg by mouth in the morning. [facility] atorvastati n (LIPITOR) 10 mg tablet 10-05 17:52: 08 Yes 10mg Take 10 mg by mouth at bedtime. [facility] zolpidem (AMBIEN) 5 mg tablet 10-05 17:52: 08 Yes 5mg Take 5 mg by mouth at bedtime. [facility] brexpiprazo le (REXULTI) 1 mg Tab 10-05 17:52: 08 Yes 1mg Take 1 mg by mouth daily. [facility] hydrALAZINE 25 mg tablet 10-05 17:52: 08 Yes 25mg Take 25 mg by mouth in the morning and 25 mg in the evening. [facility] FLUoxetine 10 mg capsule 10-05 17:52: 08 Yes 10mg Take 10 mg by mouth in the morning. [facility] atorvastati n (LIPITOR) 10 mg tablet 10-05 17:52: 08 Yes 10mg Take 10 mg by mouth at bedtime. [facility] zolpidem (AMBIEN) 5 mg tablet 10-05 17:52: 08 Yes 5mg Take 5 mg by mouth at bedtime. [facility] brexpiprazo le (REXULTI) 1 mg Tab 10-05 17:52: 08 Yes 1mg Take 1 mg by mouth daily. [facility] hydrALAZINE 25 mg tablet 10-05 17:52: 08 Yes 25mg Take 25 mg by mouth in the morning and 25 mg in the evening. [facility] FLUoxetine 10 mg capsule 10-05 17:52: 08 Yes 10mg Take 10 mg by mouth in the morning. [facility] atorvastati n (LIPITOR) 10 mg tablet 10-05 17:52: 08 Yes 10mg Take 10 mg by mouth at bedtime. [facility] zolpidem (AMBIEN) 5 mg tablet 10-05 17:52: 08 Yes 5mg Take 5 mg by mouth at bedtime. [facility] brexpiprazo le (REXULTI) 1 mg Tab 10-05 17:52: 08 Yes 1mg Take 1 mg by mouth daily. [facility] hydrALAZINE 25 mg tablet 10-05 17:52: 08 Yes 25mg Take 25 mg by mouth in the morning and 25 mg in the evening. [facility] FLUoxetine 10 mg capsule 10-05 17:52: 08 Yes 10mg Take 10 mg by mouth in the morning. [facility] atorvastati n (LIPITOR) 10 mg tablet 10-05 17:52: 08 Yes 10mg Take 10 mg by mouth at bedtime. [facility] zolpidem (AMBIEN) 5 mg tablet 10-05 17:52: 08 Yes 5mg Take 5 mg by mouth at bedtime. [facility] brexpiprazo le (REXULTI) 1 mg Tab 10-05 17:52: 08 Yes 1mg Take 1 mg by mouth daily. [facility] hydrALAZINE 25 mg tablet 10-05 17:52: 08 Yes 25mg Take 25 mg by mouth in the morning and 25 mg in the evening. [facility] FLUoxetine 10 mg capsule 10-05 17:52: 08 Yes 10mg Take 10 mg by mouth in the morning. [facility] atorvastati n (LIPITOR) 10 mg tablet 10-05 17:52: 08 Yes 10mg Take 10 mg by mouth at bedtime. [facility] zolpidem (AMBIEN) 5 mg tablet 10-05 17:52: 08 Yes 5mg Take 5 mg by mouth at bedtime. [facility] brexpiprazo le (REXULTI) 1 mg Tab 10-05 17:52: 08 Yes 1mg Take 1 mg by mouth daily. [facility] hydrALAZINE 25 mg tablet 10-05 17:52: 08 Yes 25mg Take 25 mg by mouth in the morning and 25 mg in the evening. [facility] FLUoxetine 10 mg capsule 10-05 17:52: 08 Yes 10mg Take 10 mg by mouth in the morning. [facility] atorvastati n (LIPITOR) 10 mg tablet 10-05 17:52: 08 Yes 10mg Take 10 mg by mouth at bedtime. [facility] apixaban (ELIQUIS) 5 mg tablet 10-05 14:13: 20 10-05 00:00 :00 No 5mg Take 5 mg by mouth in the morning and 5 mg in the evening. [facility] apixaban (ELIQUIS) tablet 2.5 mg 10-05 01:00: 00 Yes 2.5mg 2.5 mg, Oral, BID, First dose on 10/04/21 at 1999, Until Discontinu ed, Routine
Indicatio ns: Non-Valvul ar Atrial Fibrillati on [facility] budesonide- formoteroL 160-4.5 mcg/actuati on inhaler 10-05 00:00: 00 Yes [id number] 2{puff} Inhale 2 Puffs in the morning and 2 Puffs in the evening. [facility] vancomycin 125 mg capsule 10-05 00:00: 00 Yes [id number] 125mg Take 1 capsule by mouth 4 (four) times daily. [facility] budesonide- formoteroL 160-4.5 mcg/actuati on inhaler 10-05 00:00: 00 Yes [id number] 2{puff} Inhale 2 Puffs in the morning and 2 Puffs in the evening. [facility] vancomycin 125 mg capsule 10-05 00:00: 00 Yes [id number] 125mg Take 1 capsule by mouth 4 (four) times daily. [facility] budesonide- formoteroL 160-4.5 mcg/actuati on inhaler 10-05 00:00: 00 Yes [id number] 2{puff} Inhale 2 Puffs in the morning and 2 Puffs in the evening. [facility] vancomycin 125 mg capsule 10-05 00:00: 00 Yes [id number] 125mg Take 1 capsule by mouth 4 (four) times daily. [facility] budesonide- formoteroL 160-4.5 mcg/actuati on inhaler 10-05 00:00: 00 Yes [id number] 2{puff} Inhale 2 Puffs in the morning and 2 Puffs in the evening. [facility] vancomycin 125 mg capsule 10-05 00:00: 00 Yes [id number] 125mg Take 1 capsule by mouth 4 (four) times daily. [facility] budesonide- formoteroL 160-4.5 mcg/actuati on inhaler 10-05 00:00: 00 Yes [id number] 2{puff} Inhale 2 Puffs in the morning and 2 Puffs in the evening. [facility] vancomycin 125 mg capsule 10-05 00:00: 00 Yes [id number] 125mg Take 1 capsule by mouth 4 (four) times daily. [facility] budesonide- formoteroL 160-4.5 mcg/actuati on inhaler 10-05 00:00: 00 Yes [id number] 2{puff} Inhale 2 Puffs in the morning and 2 Puffs in the evening. [facility] vancomycin 125 mg capsule 10-05 00:00: 00 Yes [id number] 125mg Take 1 capsule by mouth 4 (four) times daily. [facility] budesonide- formoteroL 160-4.5 mcg/actuati on inhaler 10-05 00:00: 00 Yes [id number] 2{puff} Inhale 2 Puffs in the morning and 2 Puffs in the evening. [facility] vancomycin 125 mg capsule 10-05 00:00: 00 Yes [id number] 125mg Take 1 capsule by mouth 4 (four) times daily. [facility] budesonide- formoteroL 160-4.5 mcg/actuati on inhaler 10-05 00:00: 00 Yes [id number] 2{puff} Inhale 2 Puffs in the morning and 2 Puffs in the evening. [facility] vancomycin 125 mg capsule 10-05 00:00: 00 Yes [id number] 125mg Take 1 capsule by mouth 4 (four) times daily. [facility] budesonide- formoteroL 160-4.5 mcg/actuati on inhaler 10-05 00:00: 00 Yes [id number] 2{puff} Inhale 2 Puffs in the morning and 2 Puffs in the evening. [facility] vancomycin 125 mg capsule 10-05 00:00: 00 Yes [id number] 125mg Take 1 capsule by mouth 4 (four) times daily. [facility] budesonide- formoteroL 160-4.5 mcg/actuati on inhaler 10-05 00:00: 00 Yes [id number] 2{puff} Inhale 2 Puffs in the morning and 2 Puffs in the evening. [facility] vancomycin 125 mg capsule 10-05 00:00: 00 Yes [id number] 125mg Take 1 capsule by mouth 4 (four) times daily. [facility] budesonide- formoteroL 160-4.5 mcg/actuati on inhaler 10-05 00:00: 00 Yes [id number] 2{puff} Inhale 2 Puffs in the morning and 2 Puffs in the evening. [facility] vancomycin 125 mg capsule 10-05 00:00: 00 Yes [id number] 125mg Take 1 capsule by mouth 4 (four) times daily. [facility] budesonide- formoteroL 160-4.5 mcg/actuati on inhaler 10-05 00:00: 00 Yes [id number] 2{puff} Inhale 2 Puffs in the morning and 2 Puffs in the evening. [facility] vancomycin 125 mg capsule 10-05 00:00: 00 Yes [id number] 125mg Take 1 capsule by mouth 4 (four) times daily. [facility] budesonide- formoteroL 160-4.5 mcg/actuati on inhaler 10-05 00:00: 00 Yes [id number] 2{puff} Inhale 2 Puffs in the morning and 2 Puffs in the evening. [facility] vancomycin 125 mg capsule 10-05 00:00: 00 Yes [id number] 125mg Take 1 capsule by mouth 4 (four) times daily. [facility] budesonide- formoteroL 160-4.5 mcg/actuati on inhaler 10-05 00:00: 00 Yes [id number] 2{puff} Inhale 2 Puffs in the morning and 2 Puffs in the evening. [facility] vancomycin 125 mg capsule 10-05 00:00: 00 Yes [id number] 125mg Take 1 capsule by mouth 4 (four) times daily. [facility] budesonide- formoteroL 160-4.5 mcg/actuati on inhaler 10-05 00:00: 00 Yes [id number] 2{puff} Inhale 2 Puffs in the morning and 2 Puffs in the evening. [facility] vancomycin 125 mg capsule 10-05 00:00: 00 Yes [id number] 125mg Take 1 capsule by mouth 4 (four) times daily. [facility] budesonide- formoteroL 160-4.5 mcg/actuati on inhaler 10-05 00:00: 00 Yes [id number] 2{puff} Inhale 2 Puffs in the morning and 2 Puffs in the evening. [facility] vancomycin 125 mg capsule 10-05 00:00: 00 Yes [id number] 125mg Take 1 capsule by mouth 4 (four) times daily. [facility] apixaban 2.5 mg tablet 10-05 00:00: 00 01-04 05:59 :00 No 1358 2.5mg Take 1 tablet by mouth in the morning and 1 tablet in the evening. Do all this for 90 days. Indication s: atrial fibrillati on [facility] apixaban 2.5 mg tablet 10-05 00:00: 00 01-04 05:59 :00 No 1358 2.5mg Take 1 tablet by mouth in the morning and 1 tablet in the evening. Do all this for 90 days. Indication s: atrial fibrillati on [facility] apixaban 2.5 mg tablet 2-0 8-29 00:00: 00 01-04 05:59 :00 No 1358 2.5mg Take 1 tablet by mouth in the morning and 1 tablet in the evening. Do all this for 90 days. Indication s: atrial fibrillati on [facility] apixaban 2.5 mg tablet 2021-0 8-29 00:00: 00 01-04 05:59 :00 No 1358 2.5mg Take 1 tablet by mouth in the morning and 1 tablet in the evening. Do all this for 90 days. Indication s: atrial fibrillati on [facility] apixaban 2.5 mg tablet 2021-0 8- 00:00: 00 01-04 05:59 :00 No 1358 2.5mg Take 1 tablet by mouth in the morning and 1 tablet in the evening. Do all this for 90 days. Indication s: atrial fibrillati on [facility] apixaban 2.5 mg tablet 2021-0 8- 00:00: 00 01-04 05:59 :00 No 1358 2.5mg Take 1 tablet by mouth in the morning and 1 tablet in the evening. Do all this for 90 days. Indication s: atrial fibrillati on [facility] apixaban 2.5 mg tablet 2021-0 8-29 00:00: 00 01-04 05:59 :00 No 1358 2.5mg Take 1 tablet by mouth in the morning and 1 tablet in the evening. Do all this for 90 days. Indication s: atrial fibrillati on [facility] apixaban 2.5 mg tablet 2021-0 8-29 00:00: 00 01-04 05:59 :00 No 1358 2.5mg Take 1 tablet by mouth in the morning and 1 tablet in the evening. Do all this for 90 days. Indication s: atrial fibrillati on [facility] apixaban 2.5 mg tablet 2-0 8-29 00:00: 00 01-04 05:59 :00 No 1358 2.5mg Take 1 tablet by mouth in the morning and 1 tablet in the evening. Do all this for 90 days. Indication s: atrial fibrillati on [facility] vancomycin 125 mg capsule 10-05 00:00: 00 10-05 00:00 :00 No [id number] 125mg Take 1 capsule by mouth 4 (four) times daily for 10 days. [facility] zolpidem (AMBIEN) tablet 5 mg 10-04 21:45: 27 Yes 5mg 5 mg, Oral, QHSPRN, 3 doses, Starting on Tue10/04/21 at 1645, Until Discontinu ed, Routine, Insomnia [facility] brexpiprazo le (REXULTI) Tab 1 mg 10-04 14:00: 00 Yes 1mg 1 mg, Oral, DAILY, First dose on Tue10/04/21 at 0900, Until Discontinu ed, Routine
Medicatio n Name: rexulti
Form: Tablet
Length of Therapy: Indefinite
How soon needed (normally 72 hours needed to procure): 0-24 hrs
Juliana son for non-formul thiago use: PATIENT CURRENTLY TAKING NONFORMULA RY PRODUCT [facility] fidaxomicin (DIFICID) tablet 200 mg 10-04 13:00: 00 10-14 12:59 :00 No 200mg 200 mg, Oral, BID, 20 doses, First dose on Tue10/04/21 at 0800, Last dose on Tue10/13/21 at 2000, Routine
Reason for Anti-Infec tive: Documented Infection< br>Documen shazia Infection Site: Abdominal< br>Duratio n of Therapy: 10 days [facility] atorvastati n (LIPITOR) tablet 10 mg 10-04 02:00: 00 Yes 10mg 10 mg, Oral, QHS, First dose on 10/03/21 at 2100, Until Discontinu ed, Routine [facility] budesonide- formoteroL (SYMBICORT) 160-4.5 mcg/actuati on inhaler 2 Puff 10-04 01:00: 00 Yes 2{puff} 2 Puff, Inhalation , BID, First dose on 10/03/21 at 2000, Until Discontinu ed, Routine [facility] zolpidem (AMBIEN) tablet 5 mg 10-03 22:04: 06 10-04 02:54 :00 No 5mg 5 mg, Oral, QHSPRN, 1 dose, Starting on 10/03/21 at 1704, Until Discontinu ed, Routine, Insomnia [facility] ipratropium -albuteroL (DUONEB) 0.5 mg-3 mg(2.5 mg base)/3 mL nebulizer solution 3 mL 10-03 14:32: 09 Yes 3mL 3 mL, Inhalation , TIDPRN, Starting on 10/03/21 at 0932, Until Discontinu ed, Routine, Wheezing, Shortness of Breath [facility] pantoprazol e (PROTONIX) injection 40 mg 10-03 14:15: 00 Yes 40mg 40 mg, Slow IV Push, Q12H, First dose (after last modificati on) on 10/03/21 at 0915, Until Discontinu ed [facility] FLUoxetine (PROZAC) capsule 10 mg 10-03 14:00: 00 Yes 10mg 10 mg, Oral, DAILY, First dose on 10/03/21 at 0900, Until Discontinu ed, [facility] EC tablet 40 mg 10-03 14:00: 00 10-03 13:58 :02 No 40mg 40 mg, Oral, DAILY, First dose on 10/03/21 at 0900, Until Discontinu ed, Routine [facility] ARIPiprazol e (ABILIFY) tablet 5 mg 10-03 14:00: 00 10-03 21:35 :33 No 5mg 5 mg, Oral, DAILY, First dose on 10/03/21 at 0900, Until Discontinu ed, Routine [facility] metroNIDAZO LE (FLAGYL) tablet 250 mg 10-03 13:00: 00 10-04 12:35 :06 No 250mg 250 mg, Oral, Q12H, 20 doses, First dose on Tue10/03/21 at 0800, Last dose on Tue10/12/21 at 2000, Routine
Reason for Anti-Infec tive: Documented Infection< br>Documen shazia Infection Site: Abdominal< br>Duratio n of Therapy: 10 days [facility] ciprofloxac in HCl (CIPRO) tablet 500 mg 10-03 13:00: 00 10-04 12:35 :06 No 500mg 500 mg, Oral, BID, 20 doses, First dose on Tue10/03/21 at 0800, Last dose on Tue10/12/21 at 2000, HIEU
Re ason for Anti-Infec tive: Empiric Therapy for Suspected Infection< br>Empiric Therapy Site: Abdominal< br>Duratio n of therapy: 5 days [facility] zolpidem (AMBIEN) tablet 5 mg 10-03 03:00: 00 10-03 03:29 :00 No 5mg 5 mg, Oral, QHS, 1 dose, First dose (after last modificati on) on Tue10/02/21 at 2200, Routine [facility] acetaminoph en (TYLENOL) tablet 650 mg 10-03 02:57: 09 Yes 650mg 650 mg, Oral, Q6HPRN, Starting on Tue10/02/21 at 2157, Until Discontinu ed, Routine, Pain (scale 1-3) [facility] iopamidol (ISOVUE 370-500 mL) injection 60 mL 10-02 22:30: 00 10-02 22:30 :00 No [id number] 60mL 60 mL, Intravenou s, ONCE, 1 dose, On Tue10/02/21 at 1730, Routine [facility] pantoprazol e (PROTONIX) 40 mg in NaCl 0.9% (NS) 20 mL syringe 10-02 21:30: 00 10-02 21:32 :00 No 40mg 40 mg, IV Push, ONCE, 1 dose, On Tue10/02/21 at 1630, Administer over 2 Minutes, 20 mL [facility] Vital Signs Vital Name Observation Time Observation Value Comments Sagar castellano Systolic blood pressure 2022-08-31 16:06:00 166 mm[Hg] [facility] Diastolic blood pressure 2022-08-31 16:06:00 61 mm[Hg] [facility] Heart rate 2022-08-31 16:06:00 69 /min [facility] Respiratory rate 2022-08-31 16:06:00 17 /min [facility] Body height 2022-08-31 16:06:00 152.4 cm [facility] Body weight 2022-08-31 16:06:00 46.267 kg [facility] BMI 2022-08-31 16:06:00 19.92 kg/m2 [facility] Oxygen saturation in Arterial blood by Pulse oximetry 2022-08-31 16:06:00 95 /min [facility] Systolic blood pressure 2022-01-13 18:10:00 170 mm[Hg] [facility] Diastolic blood pressure 2022-01-13 18:10:00 60 mm[Hg] [facility] Heart rate 2022-01-13 18:10:00 78 /min [facility] Respiratory rate 2022-01-13 18:10:00 18 /min [facility] Oxygen saturation in Arterial blood by Pulse oximetry 2022-01-13 18:10:00 94 /min [facility] Body temperature 2022-01-13 17:40:00 36.17 Bel [facility] Body weight 2022-01-08 18:00:00 52.164 kg [facility] BMI 2022-01-08 18:00:00 22.46 kg/m2 [facility] Systolic blood pressure 2022-01-13 17:50:00 158 mm[Hg] [facility] Diastolic blood pressure 2022-01-13 17:50:00 62 mm[Hg] [facility] Heart rate 2022-01-13 17:50:00 77 /min [facility] Respiratory rate 2022-01-13 17:50:00 13 /min [facility] Oxygen saturation in Arterial blood by Pulse oximetry 2022-01-13 17:50:00 95 /min [facility] Body temperature 2022-01-13 17:40:00 36.17 Bel [facility] Body weight 2022-01-08 18:00:00 52.164 kg [facility] BMI 2022-01-08 18:00:00 22.46 kg/m2 [facility] Systolic blood pressure 2021-10-16 02:55:00 137 mm[Hg] [facility] Diastolic blood pressure 2021-10-16 02:55:00 53 mm[Hg] [facility] Heart rate 2021-10-16 02:55:00 67 /min [facility] Respiratory rate 2021-10-16 02:55:00 14 /min [facility] Oxygen saturation in Arterial blood by Pulse oximetry 2021-10-16 02:55:00 93 /min [facility] Body temperature 2021-10-16 00:49:00 38.06 Bel [facility] Body height 2021-10-16 00:49:00 152.4 cm [facility] Body weight 2021-10-16 00:49:00 55.339 kg [facility] BMI 2021-10-16 00:49:00 23.83 kg/m2 [facility] Systolic blood pressure 2021-10-05 20:21:00 159 mm[Hg] [facility] Diastolic blood pressure 2021-10-05 20:21:00 64 mm[Hg] [facility] Heart rate 2021-10-05 20:21:00 69 /min [facility] Body temperature 2021-10-05 20:21:00 36.28 Bel [facility] Respiratory rate 2021-10-05 20:21:00 18 /min [facility] Oxygen saturation in Arterial blood by Pulse oximetry 2021-10-05 20:21:00 96 /min [facility] Body height 2021-10-03 03:00:00 152.4 cm [facility] Body weight 2021-10-03 03:00:00 54.432 kg [facility] BMI 2021-10-03 03:00:00 23.44 kg/m2 [facility] Procedures Procedure Date / Time Performed Performing Clinician Source [id number] 2022-09-26 00:00:[address] [facility] [id number] 2022-09-21 00:00:[address] [facility] [id number] 2022-09-18 00:00:[address] [facility] [id number] 2022-09-18 00:00:[address] [facility] [id number] 2022-09-18 00:00:00 [facility] NO SHOW OR MISSED APPOINTMEN T POLICY ACKNOWLEDGEMENT 2022-08-31 15:26:16 Doctor Unassigned, [place] [facility] ASSIGNMENT OF BENEFITS 2022-08-31 15:25:46 Doctor Unassigned, [place] [facility] REFERRAL- REQUEST/RESPONSE 2022-06-30 05:01:00 Doctor Unassigned, [place] [facility] ASSIGNMENT OF BENEFITS 2022-04-14 17:43:44 Doctor Unassigned, [place] [facility] COLONOSCOPY (ENDO) 2022-01-13 17:07:41 Gissel Ortega [facility] COLONOSCOPY (ENDO) 2022-01-13 17:07:41 Gissel Ortega [facility] COLONOSCOPY 2022-01-13 17:01:00 Gissell Hardin [facility] PATIENT QUESTIONNAIRE 2022-01-13 06:01:00 Doctor Unassigned, [place] [facility] EXTERNAL PROVIDER RECORDS 2021-12-28 06:01:00 Doctor Unassigned, [place] [facility] EXTERNAL PROVIDER RECORDS 2021-12-28 06:01:00 Doctor Unassigned, [place] [facility] EXTERNAL PROVIDER RECORDS 2021-12-25 06:01:00 Doctor Unassigned, [place] [facility] EXTERNAL PROVIDER RECORDS 2021-12-25 06:01:00 Doctor Unassigned, [place] [facility] DIRECTIVE TO PHYSICIAN 2021-10-26 05:01:00 Doctor Unassigned, [place] [facility] XR CHEST 1 VW 2021-10-16 01:40:24 Maged [facility] URINALYSIS 2021-10-16 01:26:00 Maged [facility] TROPONIN I 2021-10-16 01:09:00 Maged [facility] COMP. METABOLIC PANEL ([id number]) 2021-10-16 01:09:00 Maged [facility] CBC WITH DIFF 2021-10-16 01:09:00 Maged [facility] N-TERMINAL PRO-BNP 2021-10-16 01:09:00 Maged [facility] COVID-19 (ID NOW RAPID TESTING) 2021-10-16 01:09:00 Maged [facility] LACTIC ACID WHOLE BLOOD 2021-10-16 01:08:00 Maged [facility] CONSENT/REFUSAL FOR DIAGNOSI S AND TREATMENT 2021-10-16 00:42:00 Doctor Unassigned, [place] [facility] HOME HEALTH - OTHER 2021-10-07 05:01:00 Doctor Unassigned, [place] [facility] AUTHORIZATION FOR RELEASE OF PHI 2021-10-06 05:01:00 Doctor Unassigned, [place] [facility] MAGNESIUM 2021-10-05 09:12:00 Abdoulaye Geller [facility] BASIC METABOLIC PANEL (NA, K , CL, CO2, GLUCOSE, BUN, CREATININE, CA) 2021-10-05 09:12:00 Yimi Abdoulaye [facility] CBC WITHOUT DIFF 2021-10-05 09:12:00 Abdoulaye Geller [facility] ELECTROENCEPHALOGRAM 2021-10-05 00:00:00 Abdoulaye Geller [facility] MAGNESIUM 2021-10-04 09:50:00 Yasmani Mercedes [facility] BASIC METABOLIC PANEL (NA, K , CL, CO2, GLUCOSE, BUN, CREATININE, CA) 2021-10-04 09:50:00 Yasmani Mercedes [facility] CBC WITH DIFF 2021-10-04 09:50:00 [place], Lisseth [facility] HB ABO GROUPING 2021-10-04 02:50:00 Daren Yasmani [facility] CBC WITH DIFF 2021-10-04 02:49:00 [place], Lisseth [facility] COMP. METABOLIC PANEL ([id number]) 2021-10-03 16:43:00 [place], Lisseth [facility] CBC WITH DIFF 2021-10-03 16:43:00 [place], Lisseth [facility] CLOSTRIDIUM DIFFICILE TOXIN 2021-10-03 11:15:00 [facility] FECAL PATHOGENS BY PCR 2021-10-03 11:14:00 [facility] OCCULT (GUAIAC) BLOOD 2021-10-03 11:13:00 [facility] PROTHROMBIN TIME / INR 2021-10-03 03:52:00 [facility] ACTIVATED PARTIAL THRMPLAS ANA 2021-10-03 03:52:00 Flash [facility] BASIC METABOLIC PANEL (NA, K , CL, CO2, GLUCOSE, BUN, CREATININE, CA) 2021-10-03 03:30:00 [facility] CBC WITH DIFF 2021-10-03 03:30:[address] [facility] [address] ABDOMEN PELVIS W CONTRAST 2021-10-02 21:30:36 Brittanie Pal [facility] ABORH CONFIRMATION (LAB ONLY) 2021-10-02 21:30:00 Brittanie Pal [facility] HB ECG ROUTINE & RHYTHM STRIP 2021-10-02 20:58:31 Brittanie Pal [facility] COVID-19 (ID NOW RAPID TESTING) 2021-10-02 20:47:00 Brittanie Pal [facility] LAB ONLY COVID INTERPRETATION 2021-10-02 20:47:00 Brittanie Pal [facility] COMP. METABOLIC PANEL ([id number]) 2021-10-02 20:44:00 Brittanie Pal [facility] IRON PANEL 2021-10-02 20:44:00 Yasmani Mercedes [facility] CBC WITH DIFF 2021-10-02 20:44:00 Brittanie Pal [facility] GLYCOSYLATED HEMOGLOBIN (A1C) 2021-10-02 20:44:00 Tyesha Vidales [facility] PROTHROMBIN TIME / INR 2021-10-02 20:44:00 Brittanie Pal [facility] ACTIVATED PARTIAL THRMPLAS ANA 2021-10-02 20:44:00 Brittanie Pal [facility] HB ABO GROUPING 2021-10-02 20:40:00 Brittanie Pal [facility] NOTICE OF PRIVACY PRACTICES 2021-10-02 19:48:10 Doctor Unassigned, [place] [facility] HOSPITAL ADMISSION 2021-10-02 05:01:00 Doctor Unassigned, [place] [facility] Encounters Start Date/Time End Date/Time Encounter Type Admission Type Attending [facility] Care Department Encounter ID Source 2022-12-23 09:47:37 2022-12-23 09:47:37 Outpatient SFA S[facility] [id number] Karlo Roldan Bennie 2022-12-14 11:43:25 2022-12-14 11:43:25 Outpatient SFA S[facility] [id number] Karlo Roldan Bennie 2022-12-09 09:00:00 2022-12-09 09:00:00 Outpatient LAWANDA LEE [facility] [id number] [facility] 2022-11-03 11:10:16 2022-11-03 11:10:16 Outpatient SFA SFA [id number] Karlo Yuli Bennie 2022-10-25 11:02:06 2022-10-25 11:02:06 Outpatient SFA SFA [id number] Karlo Roldan Bennie 2022-10-19 10:59:45 2022-10-19 10:59:45 Outpatient SFA SFA [id number] Karlo Yuli Bennie 2022-10-08 11:25:17 2022-10-08 11:25:17 Outpatient [facility] [id number] Karlo Avery 2022-09-19 12:29:00 2022-10-01 15:01:00 Inpatient Gissel Lorenzana [facility].02 [id number] [facility] 2022-09-16 15:01:08 2022-09-16 15:01:08 Outpatient SFA [facility] [id number] Karlo Avery 2022-08-31 10:00:00 2022-08-31 10:30:00 Office Visit Lawanda Alcaraz [facility] [id number] [facility] 2022-08-31 10:00:00 2022-08-31 10:00:00 Outpatient R LAWANDA ALCARAZ [facility]IN[facility] [id number] [facility] 2022-08-31 00:00:00 2022-08-31 00:00:00 Orders Only Doctor Unassigned, [place] [id number] [id number] [id number] [facility] 2022-08-17 10:07:27 2022-08-17 10:07:27 Outpatient [facility] [id number] Karlo Avery 2022-08-16 09:37:42 2022-08-16 09:37:42 Outpatient [facility] [id number] Karlo Avery 2022-06-30 00:00:00 2022-06-30 00:00:00 Orders Only Doctor Unassigned, [place] [id number] [id number] [id number] [facility] 2022-06-29 10:14:51 2022-06-29 10:14:51 Outpatient [facility] [id number] Karlo Avery 2022-05-06 13:57:04 2022-05-06 13:57:04 Outpatient SFA SFA [id number] Karlo Avery 2022-04-14 11:30:00 2022-04-14 12:40:42 Customer Support Specialist Visit Therapist, Silvia Go Una Hall [facility] [id number] [id number] [id number] [facility] 2022-04-14 11:30:00 2022-04-14 11:30:00 [id number] [facility] 2022-04-14 00:00:00 2022-04-14 00:00:00 Orders Only Doctor Unassigned, [place] [facility] [id number] [id number] [facility] 2022-03-22 16:55:48 2022-03-22 16:55:48 Outpatient SFA SFA [id number] Karlo Avery 2022-03-08 14:40:04 2022-03-08 14:40:04 Outpatient SFA SFA [id number] Karlo Avery 2022-03-04 11:01:10 2022-03-04 11:01:10 Outpatient SFA SFA [id number] Karlo Avery 2022-02-18 09:00:08 2022-02-18 09:00:08 Outpatient SFA SFA [id number] Karlo Avery 2022-02-04 10:49:39 2022-02-04 10:49:39 Outpatient SFA SFA [id number] Karlo Avery 2022-01-13 09:58:00 2022-01-13 12:30:00 Outpatient R GISSELL JONES [facility] [id number] [facility] 2022-01-13 09:58:00 2022-01-13 12:30:00 Hospital Encounter Gissell Jones [facility] 1.2.840.114 350.1.13.10 4.2.7.2.686 [id number] [facility] 2022-01-13 11:07:00 2022-01-13 11:51:00 Surgery Gissell Jones [facility] 1.2.840.114 350.1.13.10 4.2.7.2.686 [id number] [facility] 2022-01-13 00:00:00 2022-01-13 00:00:00 Orders Only Doctor Unassigned, [place] [facility] 1.2.840.114 350.1.13.10 4.2.7.2.686 [id number] [facility] 2021-10-26 00:00:00 2021-10-26 00:00:00 Orders Only Doctor Unassigned, [place] [facility] 1.2.840.114 350.1.13.10 4.2.7.2.686 [id number] [facility] 2021-10-15 19:43:00 2021-10-15 21:57:00 Emergency X ALTAF QUEVEDO [facility] [id number] [facility] 2021-10-15 19:43:00 2021-10-15 21:57:00 Emergency Altaf Quevedo [facility] 1.2.840.114 350.1.13.10 4.2.7.2.686 [id number] [facility] 2021-10-07 00:00:00 2021-10-07 00:00:00 Orders Only Doctor Unassigned, [place] [facility] 1.2.840.114 350.1.13.10 4.2.7.2.686 [id number] [facility] 2021-10-06 00:00:00 2021-10-06 00:00:00 Transition of Care Katya Baum 1..114 350.1.13.10 4.2.7.2.686 [id number] [facility] 2021-10-06 00:00:00 2021-10-06 00:00:00 Orders Only Doctor Unassigned, [place] [facility] 1..114 350.1.13.10 4.2.7.2.686 [id number] [facility] 2021-10-02 15:20:00 2021-10-05 17:15:00 Hospital Encounter [facility]anie [facility] 1.114 350.1.13.10 4.2.7.2.686 [id number] [facility] 2021-10-02 15:20:00 2021-10-05 17:15:00 Outpatient X [facility]MA [facility] [id number] [facility] 2021-10-05 00:00:00 2021-10-05 00:00:00 Telephone Padma Abraham [facility] 1.114 350.1.13.10 4.2.7.2.686 [id number] [facility] 2021-09-02 00:00:00 2021-09-02 00:00:00 Outpatient LOUISE SOLO [facility] [id number] [facility] Program Results Test Description Test Time Test Comments Results Result Co mments Source BASIC METABOLIC [id number] 05:35:00* Test Item Value Reference Range Interpretation Comme nts SODIUM (test code = NA) 143 mmol/L 134-147 N POTASSIUM (test code = K) 3.7 mmol/L 3.4-5.0 N CHLORIDE (test code = CL) 107 mmol/L 100-108 N CARBON DIOXIDE (test code = CO2) 34 mmol/L 21-32 H ANION GAP (test code = GAP) 2.0 GAP calc 4.0-15.0 L GLUCOSE (test code = GLU) 94 MG/DL 70-110 N BLOOD UREA NITROGEN (test code = BUN) 17 MG/DL 7-18 N GLOMERULAR FILTRATION RATE (test code = GFR) >=60 max estimate estGFR >60 The Glomerular Filtration Rate is a calculated parameterbased on serum Creatinine, patient age and sex. GFR valuesless than 60 mL/min/1.73 square meters are indicative ofChronic Kidney Disease. Values less than 15 mL/min/1.73square meters indicate Kidney failure. The calculation forGFR is based on the CKD-EPI (202) calculation. This formulais race indifferent and is the recommended formula for GFRby the National Kidney Foundation for Adults.The GFR will not calculate if the sex is unknown or if thepatient's age is <18 years. CREATININE (test code = CREAT) 0.9 MG/DL 0.6-1.0 N CALCIUM (test code = CA) 8.3 MG/DL 8.5-10.1 L [id number] 05:35:00* Test Item Value Reference Range Interpretation Comme nts PHOSPHOROUS (test code = PHOS) 3.0 MG/DL 2.5-4.9 [id number] 05:35:00* Test Item Value Reference Range Interpretation Comme nts MAGNESIUM (test code = MAG) 2.0 MG/DL 1.8-2.4 N CBC W/AUTO [id number] 05:06:00* Test Item Value Reference Range Interpretation Comme nts WHITE BLOOD CELL (test code = WBC) 6.3 K/mm3 3.5-11.0 N RED BLOOD CELL (test code = RBC) 3.03 M/mm3 4.70-6.10 L HEMOGLOBIN (test code = HGB) 9.0 G/DL 10.4-14.9 L HEMATOCRIT (test code = HCT) 27.5 % 31.5-44.1 L MEAN CELL VOLUME (test code = MCV) 90.8 Fl 84.5-98.6 N MEAN CELL HGB (test code = MCH) 29.7 pg 27.0-34.2 N MEAN CELL HGB CONCETRATION (test code = MCHC) 32.7 G/DL 31.5-34.0 N RED CELL DISTRIBUTION WIDTH (test code = RDW) 14.0 SD 11.5-14.5 N PLATELET COUNT (test code = PLT) 353 K/mm3 150-450 N MEAN PLATELET VOLUME (test c ode = MPV) 8.70 fL 7.0-10.5 N NEUTROPHIL % (test code = NT%) 69.6 % 40-76 N IMMATURE GRANULOCYTE % (test code = IG%) 0.9 % 0.0-5.0 N LYMPHOCYTE % (test code = LY%) 15.0 % 20.5-51.1 L MONOCYTE % (test code = MO%) 5.8 % 1.7-9.3 N EOSINOPHIL % (test code = EO%) 7.9 % 0.0-6.0 H BASOPHIL % (test code = BA%) 0.8 % 0.0-2.0 N NUCLEATED RBC % (test code = NRBC%) 0.0 /100WBC% 0.0-1.0 N NEUTROPHIL # (test code = NT#) 4.4 K/mm3 1.8-7.6 N IMMATURE GRANULOCYTE # (test code = IG#) 0.06 x10 3/uL 0.00-0.03 H LYMPHOCYTE # (test code = LY#) 1.0 K/mm3 0.6-3.2 N MONOCYTE # (test code = MO#) 0.4 K/mm3 0.3-1.1 N EOSINOPHIL # (test code = EO#) 0.5 K/mm3 0.0-0.4 H BASOPHIL # (test code = BA#) 0.1 K/mm3 0.0-0.1 N NUCLEATED RBC # (test code = NRBC#) 0.0 K/mm3 0.0-0.1 N MANUAL DIFF REQUIRED (test c ode = MDIFF) NO DIFF/SCN CRITERIA BASIC METABOLIC [id number] 05:51:00* Test Item Value Reference Range Interpretation Comme nts SODIUM (test code = NA) 140 mmol/L 134-147 N POTASSIUM (test code = K) 3.0 mmol/L 3.4-5.0 L CHLORIDE (test code = CL) 105 mmol/L 100-108 N CARBON DIOXIDE (test code = CO2) 33 mmol/L 21-32 H ANION GAP (test code = GAP) 2.0 GAP calc 4.0-15.0 L GLUCOSE (test code = GLU) 102 MG/DL 70-110 N BLOOD UREA NITROGEN (test code = BUN) 20 MG/DL 7-18 H GLOMERULAR FILTRATION RATE (test code = GFR) 55 estGFR >60 L The Glomerular Filtration Rate is a calculated parameterbased on serum Creatinine, patient age and sex. GFR valuesless than 60 mL/min/1.73 square meters are indicative ofChronic Kidney Disease. Values less than 15 mL/min/1.73square meters indicate Kidney failure. The calculation forGFR is based on the CKD-EPI (2020) calculation. This formulais race indifferent and is the recommended formula for GFRby the National Kidney Foundation for Adults.The GFR will not calculate if the sex is unknown or if thepatient's age is <18 years. CREATININE (test code = CREAT) 1.0 MG/DL 0.6-1.0 N CALCIUM (test code = CA) 8.0 MG/DL 8.5-10.1 L [id number] 05:51:00* Test Item Value Reference Range Interpretation Comme nts PHOSPHOROUS (test code = PHOS) 1.7 MG/DL 2.5-4.9 L [id number] 05:51:00* Test Item Value Reference Range Interpretation Comme nts MAGNESIUM (test code = MAG) 1.3 MG/DL 1.8-2.4 L CBC W/AUTO [id number] 05:18:00* Test Item Value Reference Range Interpretation Comme nts WHITE BLOOD CELL (test code = WBC) 7.2 K/mm3 3.5-11.0 N RED BLOOD CELL (test code = RBC) 3.10 M/mm3 4.70-6.10 L HEMOGLOBIN (test code = HGB) 9.1 G/DL 10.4-14.9 L HEMATOCRIT (test code = HCT) 27.4 % 31.5-44.1 L MEAN CELL VOLUME (test code = MCV) 88.4 Fl 84.5-98.6 N MEAN CELL HGB (test code = MCH) 29.4 pg 27.0-34.2 N MEAN CELL HGB CONCETRATION (test code = MCHC) 33.2 G/DL 31.5-34.0 N RED CELL DISTRIBUTION WIDTH (test code = RDW) 13.6 SD 11.5-14.5 N PLATELET COUNT (test code = PLT) 311 K/mm3 150-450 N MEAN PLATELET VOLUME (test c ode = MPV) 8.90 fL 7.0-10.5 N NEUTROPHIL % (test code = NT%) 72.0 % 40-76 N IMMATURE GRANULOCYTE % (test code = IG%) 1.0 % 0.0-5.0 N LYMPHOCYTE % (test code = LY%) 13.7 % 20.5-51.1 L MONOCYTE % (test code = MO%) 7.3 % 1.7-9.3 N EOSINOPHIL % (test code = EO%) 5.6 % 0.0-6.0 N BASOPHIL % (test code = BA%) 0.4 % 0.0-2.0 N NUCLEATED RBC % (test code = NRBC%) 0.0 /100WBC% 0.0-1.0 N NEUTROPHIL # (test code = NT#) 5.2 K/mm3 1.8-7.6 N IMMATURE GRANULOCYTE # (test code = IG#) 0.07 x10 3/uL 0.00-0.03 H LYMPHOCYTE # (test code = LY#) 1.0 K/mm3 0.6-3.2 N MONOCYTE # (test code = MO#) 0.5 K/mm3 0.3-1.1 N EOSINOPHIL # (test code = EO#) 0.4 K/mm3 0.0-0.4 N BASOPHIL # (test code = BA#) 0.0 K/mm3 0.0-0.1 N NUCLEATED RBC # (test code = NRBC#) 0.0 K/mm3 0.0-0.1 N MANUAL DIFF REQUIRED (test c ode = MDIFF) NO DIFF/SCN CRITERIA COMPREHENSIVE METABOLIC [id number] 05:24:00* Test Item Value Reference Range Interpretation Comme nts SODIUM (test code = NA) 139 mmol/L 134-147 N POTASSIUM (test code = K) 3.6 mmol/L 3.4-5.0 N CHLORIDE (test code = CL) 104 mmol/L 100-108 N CARBON DIOXIDE (test code = CO2) 29 mmol/L 21-32 N ANION GAP (test code = GAP) 6.0 GAP calc 4.0-15.0 N GLUCOSE (test code = GLU) 93 MG/DL 70-110 N BLOOD UREA NITROGEN (test code = BUN) 21 MG/DL 7-18 H GLOMERULAR FILTRATION RATE (test code = GFR) >=60 max estimate estGFR >60 The Glomerular Filtration Rate is a calculated parameterbased on serum Creatinine, patient age and sex. GFR valuesless than 60 mL/min/1.73 square meters are indicative ofChronic Kidney Disease. Values less than 15 mL/min/1.73square meters indicate Kidney failure. The calculation forGFR is based on the CKD-EPI (2020) calculation. This formulais race indifferent and is the recommended formula for GFRby the National Kidney Foundation for Adults.The GFR will not calculate if the sex is unknown or if thepatient's age is <18 years. CREATININE (test code = CREAT) 0.8 MG/DL 0.6-1.0 N TOTAL PROTEIN (test code = PROT) 4.6 G/DL 6.4-8.2 L ALBUMIN (test code = ALB) 1.9 G/DL 3.4-5.0 L GLOBULIN (test code = GLOB) 2.7 GM/dL ALBUMIN/GLOBULIN RATIO (test code = A/G) 0.7 RATIO 1.2-2.2 L CALCIUM (test code = CA) 8.5 MG/DL 8.5-10.1 N BILIRUBIN TOTAL (test code = BILT) 1.00 MG/DL 0.2-1.2 N SGOT/AST (test code = AST) 33 Unit/L 15-37 N SGPT/ALT (test code = ALT) 23 Unit/L 12-78 N ALKALINE PHOSPHATASE TOTAL (test code = ALKP) 109 Unit/L 45-117 N [id number] 05:24:00* Test Item Value Reference Range Interpretation Comme nts PHOSPHOROUS (test code = PHOS) 2.5 MG/DL 2.5-4.9 N [id number] 05:24:00* Test Item Value Reference Range Interpretation Comme nts MAGNESIUM (test code = MAG) 1.8 MG/DL 1.8-2.4 N CBC W/AUTO [id number] 04:52:00* Test Item Value Reference Range Interpretation Comme nts WHITE BLOOD CELL (test code = WBC) 7.0 K/mm3 3.5-11.0 N RED BLOOD CELL (test code = RBC) 3.01 M/mm3 4.70-6.10 L HEMOGLOBIN (test code = HGB) 8.9 G/DL 10.4-14.9 L HEMATOCRIT (test code = HCT) 27.0 % 31.5-44.1 L MEAN CELL VOLUME (test code = MCV) 89.7 Fl 84.5-98.6 N MEAN CELL HGB (test code = MCH) 29.6 pg 27.0-34.2 N MEAN CELL HGB CONCETRATION (test code = MCHC) 33.0 G/DL 31.5-34.0 N RED CELL DISTRIBUTION WIDTH (test code = RDW) 13.7 SD 11.5-14.5 N PLATELET COUNT (test code = PLT) 286 K/mm3 150-450 N MEAN PLATELET VOLUME (test c ode = MPV) 9.10 fL 7.0-10.5 N NEUTROPHIL % (test code = NT%) 72.5 % 40-76 N IMMATURE GRANULOCYTE % (test code = IG%) 1.1 % 0.0-5.0 N LYMPHOCYTE % (test code = LY%) 11.6 % 20.5-51.1 L MONOCYTE % (test code = MO%) 6.9 % 1.7-9.3 N EOSINOPHIL % (test code = EO%) 7.3 % 0.0-6.0 H BASOPHIL % (test code = BA%) 0.6 % 0.0-2.0 N NUCLEATED RBC % (test code = NRBC%) 0.0 /100WBC% 0.0-1.0 N NEUTROPHIL # (test code = NT#) 5.1 K/mm3 1.8-7.6 N IMMATURE GRANULOCYTE # (test code = IG#) 0.08 x10 3/uL 0.00-0.03 H LYMPHOCYTE # (test code = LY#) 0.8 K/mm3 0.6-3.2 N MONOCYTE # (test code = MO#) 0.5 K/mm3 0.3-1.1 N EOSINOPHIL # (test code = EO#) 0.5 K/mm3 0.0-0.4 H BASOPHIL # (test code = BA#) 0.0 K/mm3 0.0-0.1 N NUCLEATED RBC # (test code = NRBC#) 0.0 K/mm3 0.0-0.1 N MANUAL DIFF REQUIRED (test c ode = MDIFF) NO DIFF/SCN CRITERIA [id number] 06:13:00* Test Item Value Reference Range Interpretation Comme nts CORTISOL (test code = CORTR) 18.2 ug/dL 6.2-19.4 Please Note: The reference interval and flagging for this test is for an AM collection. If this is a PM collection please use: Cortisol PM: 2.3-11.9Performed At: [facility] [address] [id number] Trae Holt MD Ph:[phone] BASIC METABOLIC [id number] 02:58:00* Test Item Value Reference Range Interpretation Comme nts SODIUM (test code = NA) 136 mmol/L 134-147 N POTASSIUM (test code = K) 3.8 mmol/L 3.4-5.0 N CHLORIDE (test code = CL) 103 mmol/L 100-108 N CARBON DIOXIDE (test code = CO2) 31 mmol/L 21-32 N ANION GAP (test code = GAP) 2.0 GAP calc 4.0-15.0 L GLUCOSE (test code = GLU) 89 MG/DL 70-110 N BLOOD UREA NITROGEN (test code = BUN) 30 MG/DL 7-18 H GLOMERULAR FILTRATION RATE (test code = GFR) >=60 max estimate estGFR >60 The Glomerular Filtration Rate is a calculated parameterbased on serum Creatinine, patient age and sex. GFR valuesless than 60 mL/min/1.73 square meters are indicative ofChronic Kidney Disease. Values less than 15 mL/min/1.73square meters indicate Kidney failure. The calculation forGFR is based on the CKD-EPI (202) calculation. This formulais race indifferent and is the recommended formula for GFRby the National Kidney Foundation for Adults.The GFR will not calculate if the sex is unknown or if thepatient's age is <18 years. CREATININE (test code = CREAT) 0.7 MG/DL 0.6-1.0 N CALCIUM (test code = CA) 7.9 MG/DL 8.5-10.1 L [id number] 02:58:00* Test Item Value Reference Range Interpretation Comme nts PHOSPHOROUS (test code = PHOS) 2.9 MG/DL 2.5-4.9 N [id number] 02:58:00* Test Item Value Reference Range Interpretation Comme nts MAGNESIUM (test code = MAG) 1.7 MG/DL 1.8-2.4 L CBC W/AUTO [id number] 02:43:00* Test Item Value Reference Range Interpretation Comme nts WHITE BLOOD CELL (test code = WBC) 8.7 K/mm3 3.5-11.0 N RED BLOOD CELL (test code = RBC) 3.08 M/mm3 4.70-6.10 L HEMOGLOBIN (test code = HGB) 9.2 G/DL 10.4-14.9 L HEMATOCRIT (test code = HCT) 27.5 % 31.5-44.1 L MEAN CELL VOLUME (test code = MCV) 89.3 Fl 84.5-98.6 N MEAN CELL HGB (test code = MCH) 29.9 pg 27.0-34.2 N MEAN CELL HGB CONCETRATION (test code = MCHC) 33.5 G/DL 31.5-34.0 N RED CELL DISTRIBUTION WIDTH (test code = RDW) 13.7 SD 11.5-14.5 N PLATELET COUNT (test code = PLT) 241 K/mm3 150-450 N MEAN PLATELET VOLUME (test c ode = MPV) 9.60 fL 7.0-10.5 N NEUTROPHIL % (test code = NT%) 74.7 % 40-76 N IMMATURE GRANULOCYTE % (test code = IG%) 0.9 % 0.0-5.0 N LYMPHOCYTE % (test code = LY%) 9.0 % 20.5-51.1 L MONOCYTE % (test code = MO%) 7.6 % 1.7-9.3 N EOSINOPHIL % (test code = EO%) 7.2 % 0.0-6.0 H BASOPHIL % (test code = BA%) 0.6 % 0.0-2.0 N NUCLEATED RBC % (test code = NRBC%) 0.0 /100WBC% 0.0-1.0 N NEUTROPHIL # (test code = NT#) 6.5 K/mm3 1.8-7.6 N IMMATURE GRANULOCYTE # (test code = IG#) 0.08 x10 3/uL 0.00-0.03 H LYMPHOCYTE # (test code = LY#) 0.8 K/mm3 0.6-3.2 N MONOCYTE # (test code = MO#) 0.7 K/mm3 0.3-1.1 N EOSINOPHIL # (test code = EO#) 0.6 K/mm3 0.0-0.4 H BASOPHIL # (test code = BA#) 0.1 K/mm3 0.0-0.1 N NUCLEATED RBC # (test code = NRBC#) 0.0 K/mm3 0.0-0.1 N MANUAL DIFF REQUIRED (test c ode = MDIFF) NO DIFF/SCN CRITERIA CBC W/AUTO [id number] 03:45:00* Test Item Value Reference Range Interpretation Comme nts WHITE BLOOD CELL (test code = WBC) 14.6 K/mm3 3.5-11.0 H RED BLOOD CELL (test code = RBC) 3.32 M/mm3 4.70-6.10 L HEMOGLOBIN (test code = HGB) 10.0 G/DL 10.4-14.9 L HEMATOCRIT (test code = HCT) 29.7 % 31.5-44.1 L MEAN CELL VOLUME (test code = MCV) 89.5 Fl 84.5-98.6 N MEAN CELL HGB (test code = MCH) 30.1 pg 27.0-34.2 N MEAN CELL HGB CONCETRATION (test code = MCHC) 33.7 G/DL 31.5-34.0 N RED CELL DISTRIBUTION WIDTH (test code = RDW) 13.3 SD 11.5-14.5 N PLATELET COUNT (test code = PLT) 229 K/mm3 150-450 N MEAN PLATELET VOLUME (test c ode = MPV) 9.60 fL 7.0-10.5 N NEUTROPHIL % (test code = NT%) 78.8 % 40-76 H IMMATURE GRANULOCYTE % (test code = IG%) 1.0 % 0.0-5.0 N LYMPHOCYTE % (test code = LY%) 6.7 % 20.5-51.1 L MONOCYTE % (test code = MO%) 8.0 % 1.7-9.3 N EOSINOPHIL % (test code = EO%) 5.2 % 0.0-6.0 N BASOPHIL % (test code = BA%) 0.3 % 0.0-2.0 N NUCLEATED RBC % (test code = NRBC%) 0.0 /100WBC% 0.0-1.0 N NEUTROPHIL # (test code = NT#) 11.5 K/mm3 1.8-7.6 H IMMATURE GRANULOCYTE # (test code = IG#) 0.15 x10 3/uL 0.00-0.03 H LYMPHOCYTE # (test code = LY#) 1.0 K/mm3 0.6-3.2 N MONOCYTE # (test code = MO#) 1.2 K/mm3 0.3-1.1 H EOSINOPHIL # (test code = EO#) 0.8 K/mm3 0.0-0.4 H BASOPHIL # (test code = BA#) 0.0 K/mm3 0.0-0.1 N NUCLEATED RBC # (test code = NRBC#) 0.0 K/mm3 0.0-0.1 N MANUAL DIFF REQUIRED (test c ode = MDIFF) NO DIFF/SCN CRITERIA BASIC METABOLIC [id number] 02:37:00* Test Item Value Reference Range Interpretation Comme nts SODIUM (test code = NA) 134 mmol/L 134-147 N POTASSIUM (test code = K) 3.5 mmol/L 3.4-5.0 N CHLORIDE (test code = CL) 101 mmol/L 100-108 N CARBON DIOXIDE (test code = CO2) 29 mmol/L 21-32 N ANION GAP (test code = GAP) 4.0 GAP calc 4.0-15.0 N GLUCOSE (test code = GLU) 107 MG/DL 70-110 N BLOOD UREA NITROGEN (test code = BUN) 45 MG/DL 7-18 H GLOMERULAR FILTRATION RATE (test code = GFR) >=60 max estimate estGFR >60 The Glomerular Filtration Rate is a calculated parameterbased on serum Creatinine, patient age and sex. GFR valuesless than 60 mL/min/1.73 square meters are indicative ofChronic Kidney Disease. Values less than 15 mL/min/1.73square meters indicate Kidney failure. The calculation forGFR is based on the CKD-EPI (2020) calculation. This formulais race indifferent and is the recommended formula for GFRby the National Kidney Foundation for Adults.The GFR will not calculate if the sex is unknown or if thepatient's age is <18 years. CREATININE (test code = CREAT) 0.8 MG/DL 0.6-1.0 N CALCIUM (test code = CA) 8.3 MG/DL 8.5-10.1 L [id number] 02:37:00* Test Item Value Reference Range Interpretation Comme nts PHOSPHOROUS (test code = PHOS) 2.4 MG/DL 2.5-4.9 L [id number] 02:37:00* Test Item Value Reference Range Interpretation Comme nts MAGNESIUM (test code = MAG) 1.9 MG/DL 1.8-2.4 - XR ABDOMEN 1 [id number] 09:57:00 [facility] 1935 Sex: F Name: LESLEY BREAUX [facility] : 1935 Age/S: 87 / F [address] Unit #: [id number] Loc: [place] [address] Phys: Giorgi Chavarria MD Acct: [id number] Dis Date: Status: ADM IN PHONE #: [phone] Exam Date: 09/26/2022929 FAX #: Reason: ABDOMINAL PAIN EXAMS: CPT: [id number] XRABDOMEN 1 V 23396 Fluoro Time: DAP (Gy m2): Air Kerma (mGy): EXAM: Abdomen 1 view LOCATION:[id number] HISTORY: ABDOMINAL PAIN COMPARISON: None available time of interpretation. FINDINGS: Single frontal viewof the abdomen. The bowel gas pattern is nonobstructive. No suspicious calcifications identified. No acute osseous findings. IMPRESSION: Nonobstructive bowel gas pattern. at 0957 Reported and signed by: Abhinav Fajardo M.D. CC: Gissel Ortega MD; Giorgi Chavarria MD PAGE 1 Signed Report Name[facility] 1935 Age/S: 87 / F [address] Unit #: [id number] Loc: [place] [address] Phys: Giorgi Chavarria MD Acct: [id number] Dis Date: Status: ADM IN PHONE #: [phone] Exam Date: 2022 FAX #: Reason: ABDOMINAL PAIN EXAMS: CPT: [id number] XR ABDOMEN 1 V [id number] Fluoro Time: DAP (Gy m2): Air Kerma (mGy): (Continued) Technologist: Justina Keenan, RT(R) Trnscb Date/Time: 09/26/2022 (0957) [email or web address] Orig Print D/T: S: 09/26/2022 (1000) PAGE 2 Signed ReportCBC W/AUTO [id number] 06:54:00* Test Item Value Reference Range Interpretation Comme nts WHITE BLOOD CELL (test code = WBC) 21.1 K/mm3 3.5-11.0 H RED BLOOD CELL (test code = RBC) 3.59 M/mm3 4.70-6.10 L HEMOGLOBIN (test code = HGB) 10.6 G/DL 10.4-14.9 N HEMATOCRIT (test code = HCT) 31.2 % 31.5-44.1 L MEAN CELL VOLUME (test code = MCV) 86.9 Fl 84.5-98.6 N MEAN CELL HGB (test code = MCH) 29.5 pg 27.0-34.2 N MEAN CELL HGB CONCETRATION (test code = MCHC) 34.0 G/DL 31.5-34.0 N RED CELL DISTRIBUTION WIDTH (test code = RDW) 13.4 SD 11.5-14.5 N PLATELET COUNT (test code = PLT) 244 K/mm3 150-450 N MEAN PLATELET VOLUME (test c ode = MPV) 9.80 fL 7.0-10.5 N NEUTROPHIL % (test code = NT%) 80.4 % 40-76 H IMMATURE GRANULOCYTE % (test code = IG%) 2.2 % 0.0-5.0 N LYMPHOCYTE % (test code = LY%) 5.3 % 20.5-51.1 L MONOCYTE % (test code = MO%) 8.8 % 1.7-9.3 N EOSINOPHIL % (test code = EO%) 3.0 % 0.0-6.0 N BASOPHIL % (test code = BA%) 0.3 % 0.0-2.0 N NUCLEATED RBC % (test code = NRBC%) 0.0 /100WBC% 0.0-1.0 N NEUTROPHIL # (test code = NT#) 16.9 K/mm3 1.8-7.6 H IMMATURE GRANULOCYTE # (test code = IG#) 0.47 x10 3/uL 0.00-0.03 H LYMPHOCYTE # (test code = LY#) 1.1 K/mm3 0.6-3.2 N MONOCYTE # (test code = MO#) 1.9 K/mm3 0.3-1.1 H EOSINOPHIL # (test code = EO#) 0.6 K/mm3 0.0-0.4 H BASOPHIL # (test code = BA#) 0.1 K/mm3 0.0-0.1 N NUCLEATED RBC # (test code = NRBC#) 0.0 K/mm3 0.0-0.1 N MANUAL DIFF REQUIRED (test c ode = MDIFF) NO DIFF/SCN CRITERIA [id number] 06:46:00* Test Item Value Reference Range Interpretation Comme nts PHOSPHOROUS (test code = PHOS) 2.8 MG/DL 2.5-4.9 N [id number] 06:46:00* Test Item Value Reference Range Interpretation Comme nts MAGNESIUM (test code = MAG) 2.3 MG/DL 1.8-2.4 BASIC METABOLIC [id number] 06:46:00* Test Item Value Reference Range Interpretation Comme nts SODIUM (test code = NA) 129 mmol/L 134-147 L POTASSIUM (test code = K) 3.4 mmol/L 3.4-5.0 N CHLORIDE (test code = CL) 97 mmol/L 100-108 L CARBON DIOXIDE (test code = CO2) 27 mmol/L 21-32 N ANION GAP (test code = GAP) 5.0 GAP calc 4.0-15.0 N GLUCOSE (test code = GLU) 115 MG/DL 70-110 H BLOOD UREA NITROGEN (test code = BUN) 48 MG/DL 7-18 H GLOMERULAR FILTRATION RATE (test code = GFR) 55 estGFR >60 L The Glomerular Filtration Rate is a calculated parameterbased on serum Creatinine, patient age and sex. GFR valuesless than 60 mL/min/1.73 square meters are indicative ofChronic Kidney Disease. Values less than 15 mL/min/1.73square meters indicate Kidney failure. The calculation forGFR is based on the CKD-EPI (2020) calculation. This formulais race indifferent and is the recommended formula for GFRby the National Kidney Foundation for Adults.The GFR will not calculate if the sex is unknown or if thepatient's age is <18 years. CREATININE (test code = CREAT) 1.0 MG/DL 0.6-1.0 N CALCIUM (test code = CA) 8.2 MG/DL 8.5-10.1 L - XR CHEST 1 [id number] 06:24:00 [facility] 1935 Sex: F Name: LESLEY BREAUX [facility] : 1935 Age/S: 87 / F [address] Unit #: [id number] Loc: [place] [address] Phys: Eliu Duarte Acct: [id number] Dis Date: Status: ADM IN PHONE #: [phone] Exam Date: 09/26/2022 0552 FAX #: Reason: S/P PICC LINE PLACEMENT EXAMS: CPT:[id number] XR CHEST 1 V 60874 Fluoro Time: DAP (Gy m2): Air Kerma (mGy): EXAMINATION: - XR CHEST 1 VLOCATION: H101 INDICATION/CLINICAL HISTORY: S/P PICC LINE PLACEMENT COMPARISON: Chest x-ray September 25, 2022 at 2347 TECHNIQUE: AP view of the chest. FINDINGS: Right upper extremity PICC has been placed with tip located in the mid SVC. 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 Cardiac silhouette is no rmal in size. Patchy left basilar opacities are unchanged. No pneumothorax or pleural effusion. IMPRESSION: 1. Interval placement of a right upper extremity PICC with tip located in mid SVC. No pneumothorax. 2. Unchanged mild left basilar opacities, which may reflect atelectasis or pneumonia. El ectronically Signed by Faith Ford on 09/26/2022 at 0624 Reported and signed by: Blake Ford M.D. CC: Eliu Duarte; Gissel Ortega MD PAGE 1 Signed Report Name: LESLEY BREAUX [facility] : 1935 Age/S: 87 / F [address] Unit #: [id number] Loc: [place] [address] Phys: Marcus Duarteesky RIOJAS Acct: [id number] Dis Date: Status: ADM IN PHONE #: [phone] Exam Date: 09/26/2022 0552 FAX #: Reason: S/P PICC LINE PLACEMENT EXAMS: CPT: [id number] XRCHEST 1 V 06218 Fluoro Time: DAP (Gy m2): Air Kerma (mGy): (Continued) Technologist: Adali Chapman, RT(R)(CT) Trnscb Date/Time: 09/26/2022 (0624) [id number] Orig Print D/T: S: 09/26/2022 (27) P AGE 3 Signed Report- XR CHEST 1 [id number] 00:37:00 [facility] : 1935 Sex: F Name: LESLEY BREAUX [facility] : 1935 Age/S: 87 / F [address] Unit #: [id number] Loc: [place] [address] Phys: Eliu Duarte Acct: [id number] Dis Date: Status: ADM IN PHONE #: [phone] Exam Date: 09/25/2022 1156 FAX #: Reason: SOB/PULM EDEMA EXAMS: CPT: [id number] XR CHEST 1 V 22760 Fluoro Time: DAP (Gy m2): Air Kerma [...] in place. IMPRESSION: No significant interval change infaint left basilar atelectasis or pneumonia. at 0037 Reported and signed by: Siobhan Friend M.D. CC: Eliu Ortega MD PAGE 1 Signed Report Name: LESLEY BREAUX [facility] : [birth year] Age/S: 87 / F [address] Unit #: [id number] Loc: [place] [address] Phys: Eliu Duarte APRNNEli Acct: [id number] Dis Date: Status: ADM IN PHONE #: [phone] Exam Date: 09/25/2022 115 FAX #: Reason: SOB/PULM EDEMA EXAMS: CPT: [id number] XR CHEST 1 V 53545 Fluoro Time: DAP (Gy m2):Air Kerma (mGy): (Continued) Technologist: Munira Lovell Trnscb Date/Time: 09/26/2022 (0037) [id number] Orig Print D/T: S: 09/26/2022 (0040) PAGE 2 Signed Report BASIC METABOLIC [id number] 21:20:00* Test Item Value Reference Range Interpretation Comme nts SODIUM (test code = NA) 129 mmol/L 134-147 L POTASSIUM (test code = K) 3.4 mmol/L 3.4-5.0 N CHLORIDE (test code = CL) 97 mmol/L 100-108 L CARBON DIOXIDE (test code = CO2) 27 mmol/L 21-32 N ANION GAP (test code = GAP) 5.0 GAP calc 4.0-15.0 N GLUCOSE (test code = GLU) 114 MG/DL 70-110 H BLOOD UREA NITROGEN (test code = BUN) 47 MG/DL 7-18 H GLOMERULAR FILTRATION RATE (test code = GFR) 49 estGFR >60 L The Glomerular Filtration Rate is a calculated parameterbased on serum Creatinine, patient age and sex. GFR valuesless than 60 mL/min/1.73 square meters are indicative ofChronic Kidney Disease. Values less than 15 mL/min/1.73square meters indicate Kidney failure. The calculation forGFR is based on the CKD-EPI (2020) calculation. This formulais race indifferent and is the recommended formula for GFRby the National Kidney Foundation for Adults.The GFR will not calculate if the sex is unknown or if thepatient's age is <18 years. CREATININE (test code = CREAT) 1.1 MG/DL 0.6-1.0 H CALCIUM (test code = CA) 8.3 MG/DL 8.5-10.1 L [id number] 21:20:00* Test Item Value Reference Range Interpretation Comme nts MAGNESIUM (test code = MAG) 1.7 MG/DL 1.8-2.4 L CBC W/AUTO [id number] 21:09:00* Test Item Value Reference Range Interpretation Comme nts WHITE BLOOD CELL (test code = WBC) 19.6 K/mm3 3.5-11.0 H RED BLOOD CELL (test code = RBC) 3.51 M/mm3 4.70-6.10 L HEMOGLOBIN (test code = HGB) 10.4 G/DL 10.4-14.9 N HEMATOCRIT (test code = HCT) 30.5 % 31.5-44.1 L MEAN CELL VOLUME (test code = MCV) 86.9 Fl 84.5-98.6 N MEAN CELL HGB (test code = MCH) 29.6 pg 27.0-34.2 N MEAN CELL HGB CONCETRATION (test code = MCHC) 34.1 G/DL 31.5-34.0 H RED CELL DISTRIBUTION WIDTH (test code = RDW) 13.6 SD 11.5-14.5 N PLATELET COUNT (test code = PLT) 191 K/mm3 150-450 N MEAN PLATELET VOLUME (test c ode = MPV) 10.00 fL 7.0-10.5 N NEUTROPHIL % (test code = NT%) 82.3 % 40-76 H IMMATURE GRANULOCYTE % (test code = IG%) 1.8 % 0.0-5.0 N LYMPHOCYTE % (test code = LY%) 5.4 % 20.5-51.1 L MONOCYTE % (test code = MO%) 8.4 % 1.7-9.3 N EOSINOPHIL % (test code = EO%) 1.6 % 0.0-6.0 N BASOPHIL % (test code = BA%) 0.5 % 0.0-2.0 N NUCLEATED RBC % (test code = NRBC%) 0.0 /100WBC% 0.0-1.0 N NEUTROPHIL # (test code = NT#) 16.1 K/mm3 1.8-7.6 H IMMATURE GRANULOCYTE # (test code = IG#) 0.35 x10 3/uL 0.00-0.03 H LYMPHOCYTE # (test code = LY#) 1.1 K/mm3 0.6-3.2 N MONOCYTE # (test code = MO#) 1.6 K/mm3 0.3-1.1 H EOSINOPHIL # (test code = EO#) 0.3 K/mm3 0.0-0.4 N BASOPHIL # (test code = BA#) 0.1 K/mm3 0.0-0.1 N NUCLEATED RBC # (test code = NRBC#) 0.0 K/mm3 0.0-0.1 N MANUAL DIFF REQUIRED (test c ode = MDIFF) NO DIFF/SCN CRITERIA GLUCOSE BEDSIDE [id number] 18:26:00* Test Item Value Reference Range Interpretation Comme nts GLUCOSE BEDSIDE TESTING (tiki t code = GLUBED) 121 mg/dL 70-110 H CBC W/AUTO [id number] 13:09:00* Test Item Value Reference Range Interpretation Comme nts WHITE BLOOD CELL (test code = WBC) 15.3 K/mm3 3.5-11.0 H RED BLOOD CELL (test code = RBC) 4.03 M/mm3 4.70-6.10 L HEMOGLOBIN (test code = HGB) 12.0 G/DL 10.4-14.9 N HEMATOCRIT (test code = HCT) 35.9 % 31.5-44.1 N MEAN CELL VOLUME (test code = MCV) 89.1 Fl 84.5-98.6 N MEAN CELL HGB (test code = MCH) 29.8 pg 27.0-34.2 N MEAN CELL HGB CONCETRATION (test code = MCHC) 33.4 G/DL 31.5-34.0 N RED CELL DISTRIBUTION WIDTH (test code = RDW) 13.4 SD 11.5-14.5 N PLATELET COUNT (test code = PLT) 186 K/mm3 150-450 N MEAN PLATELET VOLUME (test c ode = MPV) 10.00 fL 7.0-10.5 N NEUTROPHIL % (test code = NT%) 86.2 % 40-76 H IMMATURE GRANULOCYTE % (test code = IG%) 0.5 % 0.0-5.0 N LYMPHOCYTE % (test code = LY%) 4.2 % 20.5-51.1 L MONOCYTE % (test code = MO%) 7.8 % 1.7-9.3 N EOSINOPHIL % (test code = EO%) 1.0 % 0.0-6.0 N BASOPHIL % (test code = BA%) 0.3 % 0.0-2.0 N NUCLEATED RBC % (test code = NRBC%) 0.0 /100WBC% 0.0-1.0 N NEUTROPHIL # (test code = NT#) 13.2 K/mm3 1.8-7.6 H IMMATURE GRANULOCYTE # (test code = IG#) 0.08 x10 3/uL 0.00-0.03 H LYMPHOCYTE # (test code = LY#) 0.7 K/mm3 0.6-3.2 N MONOCYTE # (test code = MO#) 1.2 K/mm3 0.3-1.1 H EOSINOPHIL # (test code = EO#) 0.2 K/mm3 0.0-0.4 N BASOPHIL # (test code = BA#) 0.1 K/mm3 0.0-0.1 N NUCLEATED RBC # (test code = NRBC#) 0.0 K/mm3 0.0-0.1 N MANUAL DIFF REQUIRED (test c ode = MDIFF) NO DIFF/SCN CRITERIA COMPREHENSIVE METABOLIC [id number] 13:07:00* Test Item Value Reference Range Interpretation Comme nts SODIUM (test code = NA) 132 mmol/L 134-147 L POTASSIUM (test code = K) 3.8 mmol/L 3.4-5.0 N CHLORIDE (test code = CL) 97 mmol/L 100-108 L CARBON DIOXIDE (test code = CO2) 30 mmol/L 21-32 N ANION GAP (test code = GAP) 5.0 GAP calc 4.0-15.0 N GLUCOSE (test code = GLU) 115 MG/DL 70-110 H BLOOD UREA NITROGEN (test code = BUN) 35 MG/DL 7-18 H GLOMERULAR FILTRATION RATE (test code = GFR) >=60 max estimate estGFR >60 The Glomerular Filtration Rate is a calculated parameterbased on serum Creatinine, patient age and sex. GFR valuesless than 60 mL/min/1.73 square meters are indicative ofChronic Kidney Disease. Values less than 15 mL/min/1.73square meters indicate Kidney failure. The calculation forGFR is based on the CKD-EPI (2020) calculation. This formulais race indifferent and is the recommended formula for GFRby the National Kidney Foundation for Adults.The GFR will not calculate if the sex is unknown or if thepatient's age is <18 years. CREATININE (test code = CREAT) 0.9 MG/DL 0.6-1.0 N TOTAL PROTEIN (test code = PROT) 6.1 G/DL 6.4-8.2 L ALBUMIN (test code = ALB) 2.3 G/DL 3.4-5.0 L GLOBULIN (test code = GLOB) 3.8 GM/dL ALBUMIN/GLOBULIN RATIO (test code = A/G) 0.6 RATIO 1.2-2.2 L CALCIUM (test code = CA) 9.3 MG/DL 8.5-10.1 N BILIRUBIN TOTAL (test code = BILT) 1.20 MG/DL 0.2-1.2 N SGOT/AST (test code = AST) 133 Unit/L 15-37 H SGPT/ALT (test code = ALT) 65 Unit/L 12-78 N ALKALINE PHOSPHATASE TOTAL (test code = ALKP) 147 Unit/L 45-117 H - XR CHEST 1 [id number] 09:19:00 [facility] 1935 Sex: F Name: LESLEY BREAUX [facility] : 1935 Age/S: 87 / F [address] Unit #: [id number] Loc: [place] [address] Phys: Art Tavera MD Acct: [id number] Dis Date: Status: ADM IN PHONE #: [phone] Exam Date: 09/24/2022827 FAX #: Reason: h/o chest tube EXAMS: CPT: [id number] XR CHEST 1 V 92880 Fluoro Time: DAP (Gy m2): Air Kerma (mGy): Chest Radiograph History: h/o chest tube C omparison: September 23, 2022 Location: H45 A single frontal view of the chest is submitted. The heartappears unchanged in size. Pulmonary vasculature is unremarkable. There is a minimal patchy opacityin the left lung base. There is a tiny left pleural effusion. The bones appear unchanged. IMPRESSION: Minimal patchy opacity left lung base. This could be due to atelectasis or pneumonia. There is atiny left pleural effusion. Compared to the prior exam, there has been no significant change. at 0919 Reported and signed by: Terrence Chapman M.D. CC: Gissel Ortega MD; Art Tavera MD PAGE 1 Signed Report Name: LESLEY BREAUX [facility] : 1935 Age/S: 87 / F [address] Unit #: [id number]: [place] [address] Phys: Art Tavera MD Acct: [id number] Dis Date: Status: ADM IN PHONE #: [phone] Exam Date: 09/24/2022827 FAX #: Reason: h/o chest tube EXAMS: CPT: [id number] XR CHEST 1 V 31622 Fluoro Time: DAP (Gy m2): Air Kerma (mGy): (Continued) Technologist: Verena Frost RT,(R),(CT) Trnscb Date/Time: 09/24/2022 (918) t.SDR.PMT Orig Print D/T: S: 09/24/2022 (921) PAGE 2 Signed ReportGLUCOSE BEDSIDE TESTING 2022-09-24 08:24:00* Test Item Value Reference Range Interpretation Comme nts GLUCOSE BEDSIDE TESTING (tiki t code = GLUBED) 112 mg/dL 70-110 H GLUCOSE BEDSIDE [id number] 21:09:00* Test Item Value Reference Range Interpretation Comme nts GLUCOSE BEDSIDE TESTING (tiki t code = GLUBED) 144 mg/dL 70-110 H - XR CHEST 1 [id number] 17:44:00 [facility] 1935 Sex: F Name: LESLEY BREAUX [facility] : 1935 Age/S: 87 / F [address] [address] Unit #: [id number] Loc: [place] [address] Phys: Art Tavera MD Acct: [id number] Dis Date: Status: ADM IN PHONE #: [phone] Exam Date: 09/23/20221727 FAX #: Reason: S/p Chest Tube removal EXAMS: CPT: [id number] XR CHEST 1 V 23432 Fluoro Time: DAP (Gy m2): Air Kerma (mGy): EXAMINATION: - XR CHEST 1 V CLINICAL INDICATION: Female, 87 years year old with S/p Chest Tube removal COMPARISON: 09/22/2022 Location:T 18 FINDINGS: Single view(s) of the chest submitted. Support Devices: Interval removal of the left-sided pigtail catheter. Left subclavian pacemaker is stable. Heart: Cardiac silhouette is normal in size. Mediastinum: Mediastinal contours are unchanged. Lungs: Pulmonary vessels are enlarged consistent with congestion. Stable bilateral opacities Pleura: Left costophrenic sulcus is minimally blunted, unchanged. No pneumothorax is present. Bones: Visualized skeleton is stable in appearance. IMPRESSION: Interval removal of the left-sided pigtail catheter. No pneumothorax. at 1744 Reported and signed by: Kiersten Padilla MD CC: Gissel Ortega MD; Art Tavera MD PAGE 1 Signed Report Name: LESLEY BREAUX [facility] : 1935 Age/S: 87 / F [address] Unit #: [id number] Loc: [place] [address] Phys: Art Tavera MD Acct: [id number] Dis Date: Status: ADM IN PHONE #: [phone] Exam Date: 09/23/2022 172 FAX #: Reason: S/p Chest Tube removal EXAMS: CPT: [id number] XR CHEST 1 V 86242 FluoroTime: DAP (Gy m2): Air Kerma (mGy): (Continued) Technologist: Leigh Bright RT(R)(CT) Trnscb Date/Time: 09/23/2022 (1743) [email or web address] Orig Print D/T: S: 09/23/2022 (3998) PAGE 2 Signed ReportBASIC METABOLIC [id number] 04:07:00* Test Item Value Reference Range Interpretation Comme nts SODIUM (test code = NA) 135 mmol/L 134-147 N POTASSIUM (test code = K) 3.7 mmol/L 3.4-5.0 N CHLORIDE (test code = CL) 101 mmol/L 100-108 N CARBON DIOXIDE (test code = CO2) 31 mmol/L 21-32 N ANION GAP (test code = GAP) 3.0 GAP calc 4.0-15.0 L GLUCOSE (test code = GLU) 121 MG/DL 70-110 H BLOOD UREA NITROGEN (test code = BUN) 41 MG/DL 7-18 H GLOMERULAR FILTRATION RATE (test code = GFR) >=60 max estimate estGFR >60 The Glomerular Filtration Rate is a calculated parameterbased on serum Creatinine, patient age and sex. GFR valuesless than 60 mL/min/1.73 square meters are indicative ofChronic Kidney Disease. Values less than 15 mL/min/1.73square meters indicate Kidney failure. The calculation forGFR is based on the CKD-EPI (2020) calculation. This formulais race indifferent and is the recommended formula for GFRby the National Kidney Foundation for Adults.The GFR will not calculate if the sex is unknown or if thepatient's age is <18 years. CREATININE (test code = CREAT) 0.9 MG/DL 0.6-1.0 N CALCIUM (test code = CA) 8.6 MG/DL 8.5-10.1 N CBC W/AUTO [id number] 03:56:00* Test Item Value Reference Range Interpretation Comme nts WHITE BLOOD CELL (test code = WBC) 12.7 K/mm3 3.5-11.0 H RED BLOOD CELL (test code = RBC) 3.48 M/mm3 4.70-6.10 L HEMOGLOBIN (test code = HGB) 10.4 G/DL 10.4-14.9 N HEMATOCRIT (test code = HCT) 30.5 % 31.5-44.1 L MEAN CELL VOLUME (test code = MCV) 87.6 Fl 84.5-98.6 N MEAN CELL HGB (test code = MCH) 29.9 pg 27.0-34.2 N MEAN CELL HGB CONCETRATION (test code = MCHC) 34.1 G/DL 31.5-34.0 H RED CELL DISTRIBUTION WIDTH (test code = RDW) 13.9 SD 11.5-14.5 N PLATELET COUNT (test code = PLT) 166 K/mm3 150-450 N MEAN PLATELET VOLUME (test c ode = MPV) 10.20 fL 7.0-10.5 N NEUTROPHIL % (test code = NT%) 81.7 % 40-76 H IMMATURE GRANULOCYTE % (test code = IG%) 0.5 % 0.0-5.0 N LYMPHOCYTE % (test code = LY%) 7.1 % 20.5-51.1 L MONOCYTE % (test code = MO%) 6.9 % 1.7-9.3 N EOSINOPHIL % (test code = EO%) 3.6 % 0.0-6.0 N BASOPHIL % (test code = BA%) 0.2 % 0.0-2.0 N NUCLEATED RBC % (test code = NRBC%) 0.0 /100WBC% 0.0-1.0 N NEUTROPHIL # (test code = NT#) 10.4 K/mm3 1.8-7.6 H IMMATURE GRANULOCYTE # (test code = IG#) 0.06 x10 3/uL 0.00-0.03 H LYMPHOCYTE # (test code = LY#) 0.9 K/mm3 0.6-3.2 N MONOCYTE # (test code = MO#) 0.9 K/mm3 0.3-1.1 N EOSINOPHIL # (test code = EO#) 0.5 K/mm3 0.0-0.4 H BASOPHIL # (test code = BA#) 0.0 K/mm3 0.0-0.1 N NUCLEATED RBC # (test code = NRBC#) 0.0 K/mm3 0.0-0.1 N MANUAL DIFF REQUIRED (test c ode = MDIFF) NO DIFF/SCN CRITERIA GLUCOSE BEDSIDE [id number] 20:11:00* Test Item Value Reference Range Interpretation Comme nts GLUCOSE BEDSIDE TESTING (tiki t code = GLUBED) 140 mg/dL 70-110 H - XR CHEST 1 [id number] 10:47:00 [facility] 1935 Sex: F Name: LESLEY BREAUX [facility] : 1935 Age/S: 87 / F [address] Unit #: [id number] Loc: [place] [address] Phys: Mauro Arce MD Acct: [id number] Dis Date: Status: ADM IN PHONE #: [phone] Exam Date: 09/22/2022 1011 FAX #: Reason: chest pain EXAMS: CPT: [id number] XR CHEST1 V 82412 Fluoro Time: DAP (Gy m2): Air Kerma (mGy): EXAMINATION: - XR CHEST 1 V CLINICAL INDICATION: Female, 87 years year old with chest pain COMPARISON: 09/21/2022 Location: T 18 FINDINGS: Single view(s) of the chest submitted. Support Devices: Stable Heart: Cardiac silhouette is stable in size.Mediastinum: Mediastinal contours are unchanged. Lungs: Pulmonary vessels are enlarged consistent with congestion, unchanged. Patchy bilateral opacities are stable. Emphysematous change noted. Pleura: No pleural effusion is identified. No pneumothorax is present. Bones: Degenerative changes are present in the thoracic spine. IMPRESSION: Stable chest. at 1047 Reported and signed by: Kiersten Padilla MD CC: Mauro Arce MD; Gissel Fitch rdiology Jordan MCCABE PAGE 1 Signed Report Name: LESLEY BREAUX [facility] : 1935 Age/S: 87 / F [address] Unit #: [id number] Loc: [place] [address] Phys: Mauro Arce MD Acct: [id number] Dis Date: Status: ADM IN PHONE #: [phone] Exam Date: 09/22/2022 1011 FAX #: Reason: chest pain EXAMS: CPT: [id number] XR CHEST 1 V 02574 Fluoro Time: DAP (Gy m2): Air Kerma (mGy): (Continued) Technologist: PARK HAN Trnscb Date/Time: 09/22/2022 (1047) [id number] Orig Print D/T: S: 09/22/2022 (6933) PAGE 2 Signed Report GLUCOSE BEDSIDE [id number] 08:35:00* Test Item Value Reference Range Interpretation Comme nts GLUCOSE BEDSIDE TESTING (tiki t code = GLUBED) 83 mg/dL 70-110 N CBC W/AUTO [id number] 06:14:00* Test Item Value Reference Range Interpretation Comme nts WHITE BLOOD CELL (test code = WBC) 11.6 K/mm3 3.5-11.0 H RED BLOOD CELL (test code = RBC) 3.58 M/mm3 4.70-6.10 L HEMOGLOBIN (test code = HGB) 10.7 G/DL 10.4-14.9 N HEMATOCRIT (test code = HCT) 31.7 % 31.5-44.1 N MEAN CELL VOLUME (test code = MCV) 88.5 Fl 84.5-98.6 N MEAN CELL HGB (test code = MCH) 29.9 pg 27.0-34.2 N MEAN CELL HGB CONCETRATION (test code = MCHC) 33.8 G/DL 31.5-34.0 N RED CELL DISTRIBUTION WIDTH (test code = RDW) 13.9 SD 11.5-14.5 N PLATELET COUNT (test code = PLT) 141 K/mm3 150-450 L MEAN PLATELET VOLUME (test code = MPV) 10.60 fL 7.0-10.5 H NEUTROPHIL % (test code = NT%) 86.8 % 40-76 H IMMATURE GRANULOCYTE % (test code = IG%) 0.3 % 0.0-5.0 N LYMPHOCYTE % (test code = LY%) 5.0 % 20.5-51.1 L MONOCYTE % (test code = MO%) 6.8 % 1.7-9.3 N EOSINOPHIL % (test code = EO%) 0.8 % 0.0-6.0 N BASOPHIL % (test code = BA%) 0.3 % 0.0-2.0 N NUCLEATED RBC % (test code = NRBC%) 0.0 /100WBC% 0.0-1.0 N NEUTROPHIL # (test code = NT#) 10.0 K/mm3 1.8-7.6 H IMMATURE GRANULOCYTE # (test code = IG#) 0.04 x10 3/uL 0.00-0.03 H LYMPHOCYTE # (test code = LY#) 0.6 K/mm3 0.6-3.2 N MONOCYTE # (test code = MO#) 0.8 K/mm3 0.3-1.1 N EOSINOPHIL # (test code = EO#) 0.1 K/mm3 0.0-0.4 N BASOPHIL # (test code = BA#) 0.0 K/mm3 0.0-0.1 N NUCLEATED RBC # (test code = NRBC#) 0.0 K/mm3 0.0-0.1 N MANUAL DIFF REQUIRED (test code = MDIFF) NO DIFF/SCN CRITERIA SLIDE REVIEW CONSISTANT WITH AUTO DIFFERENTIAL. BASIC METABOLIC [id number] 04:36:00* Test Item Value Reference Range Interpretation Comme nts SODIUM (test code = NA) 139 mmol/L 134-147 N POTASSIUM (test code = K) 3.9 mmol/L 3.4-5.0 N CHLORIDE (test code = CL) 103 mmol/L 100-108 N CARBON DIOXIDE (test code = CO2) 30 mmol/L 21-32 N ANION GAP (test code = GAP) 6.0 GAP calc 4.0-15.0 N GLUCOSE (test code = GLU) 108 MG/DL 70-110 N BLOOD UREA NITROGEN (test code = BUN) 39 MG/DL 7-18 H GLOMERULAR FILTRATION RATE (test code = GFR) 55 estGFR >60 L The Glomerular Filtration Rate is a calculated parameterbased on serum Creatinine, patient age and sex. GFR valuesless than 60 mL/min/1.73 square meters are indicative ofChronic Kidney Disease. Values less than 15 mL/min/1.73square meters indicate Kidney failure. The calculation forGFR is based on the CKD-EPI (2020) calculation. This formulais race indifferent and is the recommended formula for GFRby the National Kidney Foundation for Adults.The GFR will not calculate if the sex is unknown or if thepatient's age is <18 years. CREATININE (test code = CREAT) 1.0 MG/DL 0.6-1.0 N CALCIUM (test code = CA) 8.8 MG/DL 8.5-10.1 N HGB [id number] 20:26:00* Test Item Value Reference Range Interpretation Comme nts HEMOGLOBIN (test code = HGB) 9.7 G/DL 10.4-14.9 L HEMATOCRIT (test code = HCT) 28.8 % 31.5-44.1 L - [facility] W/[id number] 14:35:00 [facility] 1935 Sex: F Name: LESLEY BREAUX [facility] : 1935 Age/S: 87 / F [address] Unit #: [id number] Loc: [place] [address] Phys: Gissel Ortega MD Cardiology Acct: [id number] Dis Date: Status: ADM IN PHONE #: [phone] Exam Date: 09/21/2022 1100 FAX #: Reason: LEFT PLEURAL EFFUSION EXAMS: CPT: [id number] US CHST W/MEDIASTINUM 60025 Ultrasound of the chest History: LEFT PLEURAL EFFUSION Comparison: None at this time Location: H45 A limited ultrasound of the left chest was performed to assess for the possibility of pleural effusion. IMPRESSION: There is a small to moderate complex leftpleural effusion. at 1435 Reported and signed by: Terrence Chapman M.D. CC: Gissel Roldan Cardiology Jordan MCCABE Technologist: Shilpa Bauman [facility] Date/Time: 09/21/2022 (1435) tSTIVENPMT PAGE 1 Signed Report Name: LESLEY BREAUX [place] : 1935 Age/S: 87 / F [address] Unit #: [id number] Loc: [place] Phys: Gissel Ortega MD Cardiology Acct: [id number] Dis Date: Status: ADM IN PHONE #: [phone] Exam Date: 09/21/2022 1100 FAX #: Reason: LEFT PLEURAL EFFUSION EXAMS: CPT: [id number] US CHST W/MEDIASTINUM 57998 (Continued) Orig Print D/T: S: 09/21/2022 (1439) Probe: PAGE 2 Signed Report- XR CHEST 1 [id number] 13:10:00 [facility] 1935 Sex: F Name: LESLEY BREAUX [place] : 1935 Age/S: 87 / F [address] Unit #: [id number] Loc: [place] [address] Phys: Mauro Arce MD Acct: [id number] Dis Date: Status: ADM IN PHONE #: [phone] Exam Date: 09/21/2022 1224 FAX #: Reason: S/P CHEST TUBE PLACEMENT EXAMS: CPT: [id number] XR CHEST 1 V 64553 Fluoro Time: DAP (Gy m2): Air Kerma (mGy): EXAM: Portable chest x-ray, one view INDICATION: S/P CHEST TUBE PLACEMENT ADMITTING DIAGNOSIS: LOCATION CODE: C3 COMPARISON: September 20, 2022 at 1101 hours TECHNIQUE: Single Portable AP upright view of the chest DISCUSSION: Patient ismoderately rotated towards the right side. Catheter and Tubes: This a pigtail catheter projects of the left upper chest. This is newly inserted since previous study. It appears to be in satisfactory position. Lung: Bilateral hyperinflation are noted. Increased lucency throughout [...] PAGE 1 Signed Report Name: LESLEY BREAUX [place] : 1935 Age/S: 87 / F [address] Unit #: [id number] Loc: [place] [address] Phys: Mauro Arce MD Acct: [id number] Dis Date: Status: ADM IN PHONE #: [phone] Exam Date: 09/21/2022 1224 FAX #: Reason: S/P CHEST TUBE PLACEMENT EXAMS: CPT: [id number] XR CHEST 1 V 97770 Fluoro Time: DAP (Gy m2): Air Kerma (mGy): (Continued) Technologist: Wilda Burr Trnscb Date/Time: 09/21/2022 (4870) [email or web address] Orig Print D/T: S: 09/21/2022 (1430) PAGE 2 Signed ReportBASIC METABOLIC PANEL 2022-09-21 03:46:00* Test Item Value Reference Range Interpretation Comme nts SODIUM (test code = NA) 138 mmol/L 134-147 N POTASSIUM (test code = K) 3.9 mmol/L 3.4-5.0 N CHLORIDE (test code = CL) 102 mmol/L 100-108 N CARBON DIOXIDE (test code = CO2) 33 mmol/L 21-32 H ANION GAP (test code = GAP) 3.0 GAP calc 4.0-15.0 L GLUCOSE (test code = GLU) 99 MG/DL 70-110 N BLOOD UREA NITROGEN (test code = BUN) 29 MG/DL 7-18 H GLOMERULAR FILTRATION RATE (test code = GFR) >=60 max estimate estGFR >60 The Glomerular Filtration Rate is a calculated parameterbased on serum Creatinine, patient age and sex. GFR valuesless than 60 mL/min/1.73 square meters are indicative ofChronic Kidney Disease. Values less than 15 mL/min/1.73square meters indicate Kidney failure. The calculation forGFR is based on the CKD-EPI (2020) calculation. This formulais race indifferent and is the recommended formula for GFRby the National Kidney Foundation for Adults.The GFR will not calculate if the sex is unknown or if thepatient's age is <18 years. CREATININE (test code = CREAT) 0.9 MG/DL 0.6-1.0 N CALCIUM (test code = CA) 8.7 MG/DL 8.5-10.1 N CBC W/AUTO [id number] 03:31:00* Test Item Value Reference Range Interpretation Comme nts WHITE BLOOD CELL (test code = WBC) 9.1 K/mm3 3.5-11.0 N RED BLOOD CELL (test code = RBC) 2.54 M/mm3 4.70-6.10 L HEMOGLOBIN (test code = HGB) 7.6 G/DL 10.4-14.9 L HEMATOCRIT (test code = HCT) 23.7 % 31.5-44.1 L MEAN CELL VOLUME (test code = MCV) 93.3 Fl 84.5-98.6 N MEAN CELL HGB (test code = MCH) 29.9 pg 27.0-34.2 N MEAN CELL HGB CONCETRATION (test code = MCHC) 32.1 G/DL 31.5-34.0 N RED CELL DISTRIBUTION WIDTH (test code = RDW) 13.3 SD 11.5-14.5 N PLATELET COUNT (test code = PLT) 141 K/mm3 150-450 L MEAN PLATELET VOLUME (test c ode = MPV) 10.20 fL 7.0-10.5 N NEUTROPHIL % (test code = NT%) 75.8 % 40-76 N IMMATURE GRANULOCYTE % (test code = IG%) 0.4 % 0.0-5.0 N LYMPHOCYTE % (test code = LY%) 12.3 % 20.5-51.1 L MONOCYTE % (test code = MO%) 7.9 % 1.7-9.3 N EOSINOPHIL % (test code = EO%) 3.3 % 0.0-6.0 N BASOPHIL % (test code = BA%) 0.3 % 0.0-2.0 N NUCLEATED RBC % (test code = NRBC%) 0.0 /100WBC% 0.0-1.0 N NEUTROPHIL # (test code = NT#) 6.9 K/mm3 1.8-7.6 N IMMATURE GRANULOCYTE # (test code = IG#) 0.04 x10 3/uL 0.00-0.03 H LYMPHOCYTE # (test code = LY#) 1.1 K/mm3 0.6-3.2 N MONOCYTE # (test code = MO#) 0.7 K/mm3 0.3-1.1 N EOSINOPHIL # (test code = EO#) 0.3 K/mm3 0.0-0.4 N BASOPHIL # (test code = BA#) 0.0 K/mm3 0.0-0.1 N NUCLEATED RBC # (test code = NRBC#) 0.0 K/mm3 0.0-0.1 N MANUAL DIFF REQUIRED (test c ode = MDIFF) NO DIFF/SCN CRITERIA HGB [id number] 20:15:00* Test Item Value Reference Range Interpretation Comme nts HEMOGLOBIN (test code = HGB) 8.7 G/DL 10.4-14.9 L HEMATOCRIT (test code = HCT) 26.2 % 31.5-44.1 L - CT ABD PELVIS W/O [id number] 14:37:00 [facility] 1935 Sex: F Name: LESLEY BREAUX [facility] : 1935 Age/S: 87 / F [id number] [address] [address] #: [id number] Loc: [place] [address] Phys: Mauro Arce MD Acct: [id number] Dis Date: Status: ADM IN PHONE #: [phone] Exam Date: 09/20/2022 7128 FAX #: Reason: anemia EXAMS: CPT: [id number] CT ABD PELVIS W/O CONT 26811 EXAMINATION: - CT ABD PELVIS W/O CONT COMPARISON: Limited comparison is made to chest CT performed the previous day HISTORY: Anemia LOCATION CODE: C3 TECHNIQUE: CT of the Abdomen and Pelvis without intravenous contrast .Oral contrast was not administered Axial noncontrast enhanced images of the abdomen and pelvis were obtained and reviewed in soft tissue, bone and lung windows. Coronal and sagittal reconstructed images were also provided for review. All CT scans are performed using dose optimization techniques as appropriate to a performed exam including one or more of the following: ?Automated exposure control ?Adjustment of the mA and/or kV according to patient size ?Use of iterative reconstruction technique FINDINGS ABDOMEN: Within the limits of this noncontrast CT the liver, spleen, pancreas and adrenal glands are normal. High density material in the gallbladder lumen is present and most likely represents vicarious excreted contrast from the prior CT scan of the chest. Excreted contrast material is also noted in both renal collecting systems. The kidneys are otherwise grossly normal. There is no free air, free fluid or lymphadenopathy. Atheromatous plaquing ispresent in the vessels. No suspicious bowel lesions are identified. Scattered tree-in-bud opacitiesin the right lower lung are stable in [...] surgically absent. There is no free air, free fluid or lymphadenopathy. Atheromatous plaquing is present in the vessels. No PAGE 1 Signed Report (CONTINUED) Name: LESLEY BREAUX [facility] : 1935 Age/S: 87/ F [address] #: [id number] Loc: [place] [address] Phys: Mauro Arce MD Acct: [id number] Dis Date: Status: ADM IN PHONE #: [phone] Exam Date: 09/20/2022 1428 FAX #: Reason: anemia EXAMS: CPT: [id number] CT ABD PELVIS W/O CONT 18261 (Continued) suspicious bowel lesions are identified. Bones are osteopenic and mild osteoarthritic changes are seen in the hips and sacroiliac joints. IMPRESSION: No acute abnormality in the abdomen or pelvis Left pleural effusion with dependenthigh density material, and scattered tree-in-bud opacities in the visualized portions of both lowerlungs, also stable. Other findings as above at 1437 Reported and signed by: Anabela Juares M.D. CC: Mauro Arce MD; Gissel Rice MD Technologist:RT Paolo(R) CTDI: DLP: Trnscb Date/Time: 09/20/2022 (4843) [id number] Orig Print D/T: S: 09/20/2022 (2757) PAGE 2 Signed ReportHGB [id number] 12:06:00* Test Item Value Reference Range Interpretation Comme nts HEMOGLOBIN (test code = HGB) 8.2 G/DL 10.4-14.9 L HEMATOCRIT (test code = HCT) 25.4 % 31.5-44.1 L PROTHROMBIN [id number] 12:06:00* Test Item Value Reference Range Interpretation Comme nts PT PATIENT (test code = PTP) 12.7 SECONDS 9.3-12.9 N INTERNATIONAL NORMAL RATIO (test code = INR) 1.14 INR Unit 0.8-1.2 N TARGET INR BY INDICATION Indication INR1. Prophylaxis of venous thrombosis 2.0 - 3.0 (orthopedic surgery), Prophylaxis of venous thrombosis (other than high-risk surgery), Treatment of Deep Vein Thrombosis/Pulmonary Embolism, Prevention of systemic embolism - Tissue heart valves, Acute Myocardial Infarction (to prevent systemic embolism), Valvular heart disease, Acute Myocardial Infarction (to prevent systemic embolism), Valvular heart disease, Atrial Fibrillation, Bileaflet mechanical valve in aortic position.2. Mechanical prosthetic valves (high risk), 2.5 - 3.5 Presence of Lupus Anticoagulant or Antiphospholipid Antibodies, Prevention of systemic embolism - Acute Myocardial Infarction (to prevent recurrent infarct). Comment: FOR L THORACENTESIS 2.5MG BID ELIQUIS - LAST USED 09/14/22 ON HOME MED CHART- XR CHEST 1 [id number] 11:20:00 [facility] 1935 Sex: F Name: LESLEY BREAUX [facility] : 1935 Age/S: 87 / F [address] #: [id number] Loc: [place] [address] Phys: Ora Mackay Acct: [id number] Dis Date: Status: ADM IN PHONE #: [phone] Exam Date: 09/20/2022 1055 FAX #: Reason: SOB, POSS HEMOTHORAX ON CT EXAMS: CPT: [id number] XR CHEST 1 V 81352 Fluoro Time: DAP (Gy m2): Air Kerma (mGy): Chest Radiograph History: SOB, POSS HEMOTHORAX ON CT Comparison: None at this time Location: H45 A single frontal view of the chest is submitted. The heart appears unchanged in size. Pulmonary vasculature is unremarkable. There are minimal patchy opacities in the lungs bilaterally. There is a small left pleural effusion. The bones appear unchanged. IMPRESSION: There are minimal patchy opacities in the lungs bilaterally. This could be due to pneumonia. There is a small left pleural effusion. Compared to the prior exam, there has been little change. at 1120 Reported and signed by: Terrence Chapman M.D. CC: Gissel Ortega MD; Ora OCHOA PAGE 1 Signed Report Name: [facility] [place] : 1935 Age/S: 87 / F [address] #: [id number] Loc: [place] [address] Phys: Ora Mackay Acct: [id number] Dis Date: Status:ADM IN PHONE #: [phone] Exam Date: 09/20/2022 1055 FAX #: Reason: SOB, POSS HEMOTHORAX ON CT EXAMS: CPT: [id number] XR CHEST 1 V 35655 Fluoro Time: DAP (Gy m2): Air Kerma (mGy): (Continued) Technologist: Verena Frost, RT,(R),(CT) Trnscb Date/Time: 09/20/2022 (1120) [email or web address] Orig Print D/T: S: 09/20/2022 (9349) PAGE 2 Signed ReportBASIC METABOLIC PANEL 2022-09-20 04:49:00* Test Item Value Reference Range Interpretation Comme nts SODIUM (test code = NA) 142 mmol/L 134-147 N POTASSIUM (test code = K) 3.7 mmol/L 3.4-5.0 N CHLORIDE (test code = CL) 104 mmol/L 100-108 N CARBON DIOXIDE (test code = CO2) 36 mmol/L 21-32 H ANION GAP (test code = GAP) 2.0 GAP calc 4.0-15.0 L GLUCOSE (test code = GLU) 111 MG/DL 70-110 H BLOOD UREA NITROGEN (test code = BUN) 28 MG/DL 7-18 H GLOMERULAR FILTRATION RATE (test code = GFR) 44 estGFR >60 L The Glomerular Filtration Rate is a calculated parameterbased on serum Creatinine, patient age and sex. GFR valuesless than 60 mL/min/1.73 square meters are indicative ofChronic Kidney Disease. Values less than 15 mL/min/1.73square meters indicate Kidney failure. The calculation forGFR is based on the CKD-EPI (2020) calculation. This formulais race indifferent and is the recommended formula for GFRby the National Kidney Foundation for Adults.The GFR will not calculate if the sex is unknown or if thepatient's age is <18 years. CREATININE (test code = CREAT) 1.2 MG/DL 0.6-1.0 H CALCIUM (test code = CA) 8.6 MG/DL 8.5-10.1 N CBC W/AUTO [id number] 04:20:00* Test Item Value Reference Range Interpretation Comme nts WHITE BLOOD CELL (test code = WBC) 9.5 K/mm3 3.5-11.0 N RED BLOOD CELL (test code = RBC) 2.69 M/mm3 4.70-6.10 L HEMOGLOBIN (test code = HGB) 8.1 G/DL 10.4-14.9 L HEMATOCRIT (test code = HCT) 24.6 % 31.5-44.1 L MEAN CELL VOLUME (test code = MCV) 91.4 Fl 84.5-98.6 N MEAN CELL HGB (test code = MCH) 30.1 pg 27.0-34.2 N MEAN CELL HGB CONCETRATION (test code = MCHC) 32.9 G/DL 31.5-34.0 N RED CELL DISTRIBUTION WIDTH (test code = RDW) 13.5 SD 11.5-14.5 N PLATELET COUNT (test code = PLT) 154 K/mm3 150-450 N MEAN PLATELET VOLUME (test c ode = MPV) 10.60 fL 7.0-10.5 H NEUTROPHIL % (test code = NT%) 72.8 % 40-76 N IMMATURE GRANULOCYTE % (test code = IG%) 0.4 % 0.0-5.0 N LYMPHOCYTE % (test code = LY%) 14.0 % 20.5-51.1 L MONOCYTE % (test code = MO%) 8.6 % 1.7-9.3 N EOSINOPHIL % (test code = EO%) 3.8 % 0.0-6.0 N BASOPHIL % (test code = BA%) 0.4 % 0.0-2.0 N NUCLEATED RBC % (test code = NRBC%) 0.0 /100WBC% 0.0-1.0 N NEUTROPHIL # (test code = NT#) 6.9 K/mm3 1.8-7.6 N IMMATURE GRANULOCYTE # (test code = IG#) 0.04 x10 3/uL 0.00-0.03 H LYMPHOCYTE # (test code = LY#) 1.3 K/mm3 0.6-3.2 N MONOCYTE # (test code = MO#) 0.8 K/mm3 0.3-1.1 N EOSINOPHIL # (test code = EO#) 0.4 K/mm3 0.0-0.4 N BASOPHIL # (test code = BA#) 0.0 K/mm3 0.0-0.1 N NUCLEATED RBC # (test code = NRBC#) 0.0 K/mm3 0.0-0.1 N MANUAL DIFF REQUIRED (test c ode = MDIFF) NO DIFF/SCN CRITERIA - CTA CHEST FOR [id number] 11:25:00 [facility] : 1935 Sex: F Name: LESLEY BREAUX [facility] : 1935 Age/S: 87 / F [address] #: [id number] Loc: [place] [address] Phys: Vu,Ora PA Acct: [id number] Dis Date: Status: ADM IN PHONE #: [phone] Exam Date: 09/19/2022 1040 FAX #: Reason: CHEST PAIN, SOB, R/O PE EXAMS: CPT: [id number] [place] [address] EXAM: CTA CHEST WITH CONTRAST. INDICATION: Chest pain, shortness of breath COMPARISON: Chest radiograph dated September 19, 2022 TECHNIQUE: Axial CTA imaging of the chest was obtained with administration of intravenous contrast. Coronal and sagittal MIP images were submitted for review. IV contrast: 100 mL of Isovue-370 DLP: 142.34 mGy-cm [...] with layering hyperdensity. The trachea and central airways are patent. No mediastinal, hilar, supraclavicular, or axillary adenopathy is identified. The thyroid gland is normal in appearance. The upper abdomen is unremarkable. No acute osseous abnormality of the thoracic spine. IMPRESSION: No pulmonary embolus is identified. Moderate leftpleural effusion which appears complex with layering hyperdensity. This may [...] technique. PAGE 1 Signed Report (CONTINUED) Name: ELSLEY BREAUX [facility] : 1935 Age/S: 87 / F [address] #: [id number] Loc: [place] [address] Phys: Ora Mackay Acct: [id number] Dis Date: Status: ADM IN PHONE #: [phone] Exam Date: 09/19/2022 1040 FAX #: Reason: CHEST PAIN, SOB, R/O PE EXAMS: CPT: [id number] [place] [address] (Continued) at 1125 Reported and signed by: Lay Beltrán M.D. CC: Gissel Ortega MD; Ora OCHOA Technologist:Justina Keenan, RT(R) CTDI: DLP: Trnscb Date/Time: 09/19/2022 (1124) [email or web address] Orig Print D/T: S: 09/19/2022 (1128) PAGE 2 Signed Report- XR CHEST 1 [id number] 06:11:00 [facility] : 1935 Sex: F Name: LESLEY BREAUX [facility] : 1935 Age/S: 87 / F [address] #: [id number] Loc: [place] [address] Phys: Gissel Ortega MD Cardiology Acct: [id number] Dis Date: Status: ADM IN PHONE #: [phone] Exam Date: 09/19/2022251 FAX #: Reason: Post implanted device EXAMS: CPT: [id number] XR CHEST 1 V 31774 Fluoro Time: DAP (Gy m2): Air Kerma (mGy): Location: H 77 EXAM: - XR CHEST 1 V DATE: 09/19/2022 12:01 PM HISTORY: Post implanted device COMPARISON: Chest x-ray 09/18/2022 FINDINGS: Trace left pleural effusion versus thickening. Subsegmental atelectasis versus scarringin the left lung base. The right lung is clear. No pneumothorax. The cardiovascular silhouette is within normal limits. The right subclavian central venous line has been removed. Stable position of the left-sided pacemaker. IMPRESSION: Interval removal of the right sided central venous line at 0611 Reported and signed by: Mariela Mancia M.D. CC: Gissel Roldan Cardiology Jordan MCCABE PAGE 1 Signed Report Name: LESLEY BREAUX [facility] : 1935 Age/S: 87 / F [address] [address] #: [id number] Loc: [place] [address] Phys: Gissel Ortega MD Cardiology Acct: [id number] Dis Date: Status: ADM IN PHONE #: [phone] Exam Date: 09/19/2022251 FAX #: Reason: Post implanted device EXAMS: CPT: [id number] XR CHEST 1 V 78329 Fluoro Time: DAP (Gy m2): Air Kerma (mGy): (Continued) Technologist: Adali Chapman, RT(R)(CT) Trnscb Date/Time: 09/19/2022 (610) [email or web address] Orig Print D/T: S: 09/19/2022 (14) PAGE 2 Signed ReportBASIC METABOLIC [id number] 05:17:00* Test Item Value Reference Range Interpretation Comme nts SODIUM (test code = NA) 142 mmol/L 134-147 N POTASSIUM (test code = K) 3.6 mmol/L 3.4-5.0 N CHLORIDE (test code = CL) 107 mmol/L 100-108 N CARBON DIOXIDE (test code = CO2) 31 mmol/L 21-32 N ANION GAP (test code = GAP) 4.0 GAP calc 4.0-15.0 N GLUCOSE (test code = GLU) 99 MG/DL 70-110 N BLOOD UREA NITROGEN (test code = BUN) 31 MG/DL 7-18 H GLOMERULAR FILTRATION RATE (test code = GFR) 49 estGFR >60 L The Glomerular Filtration Rate is a calculated parameterbased on serum Creatinine, patient age and sex. GFR valuesless than 60 mL/min/1.73 square meters are indicative ofChronic Kidney Disease. Values less than 15 mL/min/1.73square meters indicate Kidney failure. The calculation forGFR is based on the CKD-EPI (2020) calculation. This formulais race indifferent and is the recommended formula for GFRby the National Kidney Foundation for Adults.The GFR will not calculate if the sex is unknown or if thepatient's age is <18 years. CREATININE (test code = CREAT) 1.1 MG/DL 0.6-1.0 H CALCIUM (test code = CA) 8.6 MG/DL 8.5-10.1 N CBC W/AUTO [id number] 04:50:00* Test Item Value Reference Range Interpretation Comme nts WHITE BLOOD CELL (test code = WBC) 6.0 K/mm3 3.5-11.0 N RED BLOOD CELL (test code = RBC) 3.00 M/mm3 4.70-6.10 L HEMOGLOBIN (test code = HGB) 9.0 G/DL 10.4-14.9 L HEMATOCRIT (test code = HCT) 27.7 % 31.5-44.1 L MEAN CELL VOLUME (test code = MCV) 92.3 Fl 84.5-98.6 N MEAN CELL HGB (test code = MCH) 30.0 pg 27.0-34.2 N MEAN CELL HGB CONCETRATION (test code = MCHC) 32.5 G/DL 31.5-34.0 N RED CELL DISTRIBUTION WIDTH (test code = RDW) 13.4 SD 11.5-14.5 N PLATELET COUNT (test code = PLT) 148 K/mm3 150-450 L MEAN PLATELET VOLUME (test c ode = MPV) 10.30 fL 7.0-10.5 N NEUTROPHIL % (test code = NT%) 66.3 % 40-76 N IMMATURE GRANULOCYTE % (test code = IG%) 0.3 % 0.0-5.0 N LYMPHOCYTE % (test code = LY%) 18.8 % 20.5-51.1 L MONOCYTE % (test code = MO%) 7.5 % 1.7-9.3 N EOSINOPHIL % (test code = EO%) 6.3 % 0.0-6.0 H BASOPHIL % (test code = BA%) 0.8 % 0.0-2.0 N NUCLEATED RBC % (test code = NRBC%) 0.0 /100WBC% 0.0-1.0 N NEUTROPHIL # (test code = NT#) 4.0 K/mm3 1.8-7.6 N IMMATURE GRANULOCYTE # (test code = IG#) 0.02 x10 3/uL 0.00-0.03 N LYMPHOCYTE # (test code = LY#) 1.1 K/mm3 0.6-3.2 N MONOCYTE # (test code = MO#) 0.5 K/mm3 0.3-1.1 N EOSINOPHIL # (test code = EO#) 0.4 K/mm3 0.0-0.4 N BASOPHIL # (test code = BA#) 0.1 K/mm3 0.0-0.1 N NUCLEATED RBC # (test code = NRBC#) 0.0 K/mm3 0.0-0.1 N MANUAL DIFF REQUIRED (test c ode = MDIFF) NO DIFF/SCN CRITERIA - XR CHEST 1 [id number] 12:45:00 [facility] 1935 Sex: F Name: LESLEY BREAUX [place] : 1935 Age/S: 87 / F [address] [address] #: [id number] Loc: [place] [address] Phys: Gissel Ortega MD Cardiology Acct: [id number] Dis Date: Status: ADM IN PHONE #: [phone] Exam Date: 09/18/2022 1208 FAX #: Reason: Post implanted device EXAMS: CPT: [id number] XR CHEST 1 V 29064 Fluoro Time: DAP (Gy m2): Air Kerma (mGy): EXAM: CHEST ONE VIEW INDICATION: Post implanted device LOCATION: B2 COMPARISON: None available TECHNIQUE: AP view of the chest FINDINGS: The heart size is normal. There is a left cardiac pacing device with no apparent discontinuity of the leads. There are mild congestive changes bilaterally. No pneumothorax or pleural effusion is identified. The osseous structures are normal. IMPRESSION: Mild congestive changes bilaterally. at 1245 Reported and signed by: Lay Beltrán M.D. CC: Gissel Roldan Cardiology Jordan MCCABE PAGE 1 Signed Report Name: LESLEY BREAUX [place] : 1935 Age/S: 87 / F [address] [address] #: [id number] Loc: [place] [address] Phys: Gissel Ortega MD Cardiology Acct: [id number] Dis Date: Status: ADM IN PHONE #: [phone] Exam Date: 09/18/2022 1208 FAX #: Reason: Post implanted device EXAMS: CPT: [id number] CHEST 1 V 17818 Fluoro Time: DAP (Gy m2): Air Kerma (mGy): (Continued) Technologist: Justina ventura RT(R) Trnscb Date/Time: 09/18/2022 (5600) 16 Orig Print D/T: S: 09/18/2022 (7797) PAGE 2 Signed ReportPROTHROMBIN [id number] 08:52:00* Test Item Value Reference Range Interpretation Comme nts PT PATIENT (test code = PTP) 11.6 SECONDS 9.3-12.9 N INTERNATIONAL NORMAL RATIO (test code = INR) 1.04 INR Unit 0.8-1.2 N TARGET INR BY INDICATION Indication INR1. Prophylaxis of venous thrombosis 2.0 - 3.0 (orthopedic surgery), Prophylaxis of venous thrombosis (other than high-risk surgery), Treatment of Deep Vein Thrombosis/Pulmonary Embolism, Prevention of systemic embolism - Tissue heart valves, Acute Myocardial Infarction (to prevent systemic embolism), Valvular heart disease, Acute Myocardial Infarction (to prevent systemic embolism), Valvular heart disease, Atrial Fibrillation, Bileaflet mechanical valve in aortic position.2. Mechanical prosthetic valves (high risk), 2.5 - 3.5 Presence of Lupus Anticoagulant or Antiphospholipid Antibodies, Prevention of systemic embolism - Acute Myocardial Infarction (to prevent recurrent infarct). COMPREHENSIVE METABOLIC [id number] 08:50:00* Test Item Value Reference Range Interpretation Comme nts SODIUM (test code = NA) 140 mmol/L 134-147 N POTASSIUM (test code = K) 3.7 mmol/L 3.4-5.0 N CHLORIDE (test code = CL) 104 mmol/L 100-108 N CARBON DIOXIDE (test code = CO2) 32 mmol/L 21-32 N ANION GAP (test code = GAP) 4.0 GAP calc 4.0-15.0 N GLUCOSE (test code = GLU) 95 MG/DL 70-110 N BLOOD UREA NITROGEN (test code = BUN) 20 MG/DL 7-18 H GLOMERULAR FILTRATION RATE (test code = GFR) 55 estGFR >60 L The Glomerular Filtration Rate is a calculated parameterbased on serum Creatinine, patient age and sex. GFR valuesless than 60 mL/min/1.73 square meters are indicative ofChronic Kidney Disease. Values less than 15 mL/min/1.73square meters indicate Kidney failure. The calculation forGFR is based on the CKD-EPI (2020) calculation. This formulais race indifferent and is the recommended formula for GFRby the National Kidney Foundation for Adults.The GFR will not calculate if the sex is unknown or if thepatient's age is <18 years. CREATININE (test code = CREAT) 1.0 MG/DL 0.6-1.0 N TOTAL PROTEIN (test code = PROT) 7.6 G/DL 6.4-8.2 N ALBUMIN (test code = ALB) 3.6 G/DL 3.4-5.0 N GLOBULIN (test code = GLOB) 4.0 GM/dL ALBUMIN/GLOBULIN RATIO (test code = A/G) 0.9 RATIO 1.2-2.2 L CALCIUM (test code = CA) 9.9 MG/DL 8.5-10.1 N BILIRUBIN TOTAL (test code = BILT) 1.10 MG/DL 0.2-1.2 N SGOT/AST (test code = AST) 21 Unit/L 15-37 N SGPT/ALT (test code = ALT) 27 Unit/L 12-78 N ALKALINE PHOSPHATASE TOTAL (test code = ALKP) 99 Unit/L 45-117 N LIPID PROFILE (CORONARY RISK)2022-09-18 08:50:00* Test Item Value Reference Range Interpretation Comme nts TRIGLYCERIDES (test code = TRIG) 100 MG/DL 0-150 N CHOLESTEROL (test code = CHOL) 148 MG/DL 133-200 N CHOLESTEROL/HDL RATIO (test code = CHOLHDL) 1.87 RATIO See_Comment RISK ASSOCIATED WITH CHOL/HDL RATIOS: RISK MALE FEMALE1/2 AVERAGE 3.43 3.27AVERAGE 4.97 4.442X AVERAGE 9.55 7.053X AVERAGE 23.39 11.04 NOTE THAT THE REFERENCE VALUE IS RELATED TO RISK LEVELS ASRECOMMENDED BY THE [facility]ATIONAL [facility]. [Automated message] The system which generated this result transmitted reference range: 0-. The reference range was not used to interpret this result as normal/abnormal. HDL CHOLESTEROL (test code = HDL) 79 MG/DL 40-59 H NON-HDL CHOLESTEROL (test code = NHDL) 69 mg/dL <130 LIPOPROTEIN LDL (test code = LDL) 58 MG/DL 0-129 N <100 [id number] 0 - 129 NEAR OPTIMAL/ABOVE [id number] - 159 [id number] - 189 HIGH>OR= 190 VERY HIGHNOTE THAT GUIDELINES ARE PROVIDED BY NATIONAL CHOLESTEROLEDUCATION PROGRAM ADULT TREATMENT PANEL III LDL/HDL (test code = LDL/HDL) 0.73 Ratio See_Comment L [Automated messa ge] The system which generated this result transmitted reference range: 1.48-3.22 Avg. The reference range was not used to interpret this result as normal/abnormal. [id number] 08:50:00* Test Item Value Reference Range Interpretation Comme nts MAGNESIUM (test code = MAG) 2.1 MG/DL 1.8-2.4 N CBC W/AUTO [id number] 08:50:00* Test Item Value Reference Range Interpretation Comme nts WHITE BLOOD CELL (test code = WBC) 5.6 K/mm3 3.5-11.0 N RED BLOOD CELL (test code = RBC) 4.11 M/mm3 4.70-6.10 L HEMOGLOBIN (test code = HGB) 12.2 G/DL 10.4-14.9 N HEMATOCRIT (test code = HCT) 37.4 % 31.5-44.1 N MEAN CELL VOLUME (test code = MCV) 91.0 Fl 84.5-98.6 N MEAN CELL HGB (test code = MCH) 29.7 pg 27.0-34.2 N MEAN CELL HGB CONCETRATION (test code = MCHC) 32.6 G/DL 31.5-34.0 N RED CELL DISTRIBUTION WIDTH (test code = RDW) 13.1 SD 11.5-14.5 N PLATELET COUNT (test code = PLT) 217 K/mm3 150-450 N MEAN PLATELET VOLUME (test c ode = MPV) 10.00 fL 7.0-10.5 N NEUTROPHIL % (test code = NT%) 61.2 % 40-76 N IMMATURE GRANULOCYTE % (test code = IG%) 0.4 % 0.0-5.0 N LYMPHOCYTE % (test code = LY%) 24.0 % 20.5-51.1 N MONOCYTE % (test code = MO%) 6.1 % 1.7-9.3 N EOSINOPHIL % (test code = EO%) 7.2 % 0.0-6.0 H BASOPHIL % (test code = BA%) 1.1 % 0.0-2.0 N NUCLEATED RBC % (test code = NRBC%) 0.0 /100WBC% 0.0-1.0 N NEUTROPHIL # (test code = NT#) 3.4 K/mm3 1.8-7.6 N IMMATURE GRANULOCYTE # (test code = IG#) 0.02 x10 3/uL 0.00-0.03 N LYMPHOCYTE # (test code = LY#) 1.3 K/mm3 0.6-3.2 N MONOCYTE # (test code = MO#) 0.3 K/mm3 0.3-1.1 N EOSINOPHIL # (test code = EO#) 0.4 K/mm3 0.0-0.4 N BASOPHIL # (test code = BA#) 0.1 K/mm3 0.0-0.1 N NUCLEATED RBC # (test code = NRBC#) 0.0 K/mm3 0.0-0.1 N MANUAL DIFF REQUIRED (test c ode = MDIFF) NO DIFF/SCN CRITERIA TROPONIN [id number] 01:50:28* Test Item Value Reference Range Interpretation Comments TROPONIN I (test code = 9231541149) 0.006 ng/mL See_Comment [Automated message] The system which generated this result transmitted reference range: <=0.034. The reference range was not used to interpret this result as normal/abnormal. SUZE (test code = SUZE) Reference (Normal) [...] of biotin. Lab Interpretation (test code = 49220-6) [id number] 01:47:31* Test Item Value Reference Range Interpretation Comme nts NT-proBNP (test code = 6459791096) 488 pg/mL See_Comment H [Automated message] The system which generated this result transmitted reference range: <=450. The reference range was not used to interpret this result as normal/abnormal. SUZE (test code = SUZE) Biotin has been reported to cause a negative bias, interpret results relative to patient's use of biotin. Lab Interpretation (test code = 31348-3) [facility] (10509)2021-10-16 01:34:28* Test Item Value Reference Range Interpretation Comme nts NA (test code = 3121094738) 135 mmol/L 135-145 K (test code = 4248412686) 3.6 mmol/L 3.5-5 CL (test code = 9505722446) 102 mmol/L 98-108 CO2 TOTAL (test code = 1146252223) 25 mmol/L 23-31 AGAP (test code = 1170904506) 2-16 BUN (test code = 2581477165) 15 mg/dL 7-23 GLUCOSE (test code = 5876611990) 92 mg/dL 70-110 CREATININE (test code = 0866909239) 0.91 mg/dL 0.5-1.04 TOTAL BILI (test code = 2485235791) 1.2 mg/dL 0.1-1.1 H CALCIUM (test code = 3830981402) 9.2 mg/dL 8.6-10.6 T PROTEIN (test code = 5252307200) 6.6 g/dL 6.3-8.2 ALBUMIN (test code = 2272917204) 4.4 g/dL 3.5-5 ALK PHOS (test code = 6673211783) 95 U/L 34-122 ALTv (test code = 1742-6) 22 U/L 5-35 AST(SGOT) (test code = 0343841912) 34 U/L 13-40 eGFR (test code = 2895380654) mL/min/1.73m2 SUZE (test code = SUZE) Association [...] imaging tests). Lab Interpretation (test code = 00836-2) Abnormal [facility] WITH [id number] 01:21:05* Test Item Value Reference Range Interpretation Comme nts WBC (test code = 6690-2) See_Comment [Automated [employer]] The system which generated this result transmitted reference range: 4.30 - 11.10 10*3/?L. The reference range was not used to interpret this result as normal/abnormal. RBC (test code = 789-8) See_Comment [Automated [employer]] The system which generated this result transmitted [...] 33.3 g/dL 31.6-35.1 RDW-SD (test code = 80224-4) 40.9 fL 39-49.9 RDW-CV (test code = 788-0) 12.2 % 12-15.5 PLT (test code = 777-3) See_Comment [[employer]] The system which generated this result transmitted reference range: 166 - 358 10*3/?L. The reference range was not used to interpret this result as normal/abnormal. MPV (test code = 73732-5) 9.9 fL 9.5-12.9 NRBC/100 WBC (test code = 3470737660) See_Comment [Automated me ssage] The system which generated this result transmitted reference range: 0.0 - 10.0 /100 WBCs. The reference range was not used to interpret this result as normal/abnormal. NRBC x10^3 (test code = 6218765145) See_Comment [Automated messa ge] The system which generated this result transmitted reference range: 10*3/?L. The reference range was not used to interpret this result as normal/abnormal. GRAN MAT (NEUT) % (test code = 770-8) 76.4 % IMM GRAN % (test code = 2831337819) 0.20 % LYMPH % (test code = 736-9) 8.3 % MONO % (test code = 5905-5) 9.5 % EOS % (test code = 713-8) 4.4 % BASO % (test code = 706-2) 1.2 % GRAN MAT x10^3(ANC) (test code = 1476398567) 4.50 10*3/uL 1.88-7.09 IMM GRAN x10^3 (test code = 9303755261) 0-0.06 LYMPH x10^3 (test code = 731-0) 0.49 10*3/uL 1.32-3.29 L MONO x10^3 (test code = 742-7) 0.56 10*3/uL 0.33-0.92 EOS x10^3 (test code = 711-2) 0.26 10*3/uL 0.03-0.39 BASO x10^3 (test code = 704-7) 0.07 10*3/uL 0.01-0.07 Lab Interpretation (test code = 99701-5) Abnormal [facility] METABOLIC PANEL (NA, K, CL, CO2, GLUCOSE, BUN, CREATININE, CA)2021-10-05 10:08:40* Test Item Value Reference Range Interpretation Comme nts NA (test code = 3376803775) 135 mmol/L 135-145 K (test code = 1503142164) 3.9 mmol/L 3.5-5 CL (test code = 5685687275) 106 mmol/L 98-108 CO2 TOTAL (test code = 8652634563) 27 mmol/L 23-31 AGAP (test code = 5677849176) 2-16 BUN (test code = 9152435724) 17 mg/dL 7-23 GLUCOSE (test code = 4188471835) 100 mg/dL 70-110 CREATININE (test code = 4415622034) 1.21 mg/dL 0.5-1.04 H CALCIUM (test code = 4197578612) 8.7 mg/dL 8.6-10.6 eGFR (test code = 0059061948) mL/min/1.73m2 SUZE (test code = SUZE) Association [...] imaging tests). Lab Interpretation (test code = 60170-8) Abnormal [facility]2022-08-29 10:08:40* Test Item Value Reference Range Interpretation Comme nts MAGNESIUM (test code = 9777256569) 1.8 mg/dL 1.7-2.4 Lab Interpretation (test cod e = 42606-8) Normal [facility] WITHOUT [id number] 09:30:59* Test Item Value Reference Range Interpretation [...] result as normal/abnormal. MPV (test code = 73560-0) 10.0 fL 9.5-12.9 RDW-CV (test code = 788-0) 12.1 % 12-15.5 RDW-SD (test code = 75366-6) 41.6 fL 39-49.9 NRBC x10^3 (test code = 8291166123) See_Comment [Automated messa ge] The system which generated this result transmitted reference range: 10*3/?L. The reference range was not used to interpret this result as normal/abnormal. NRBC/100 WBC (test code = 2795654015) See_Comment [Automated messa ge] The system which generated this result transmitted reference range: 0.0 - 10.0 /100 WBCs. The reference range was not used to interpret this result as normal/abnormal. IPF % (test code = 8881045475) Lab Interpretation (test code = 54873-3) Abnormal [facility] WITH QQFM4277-13-60 10:56:20* Test Item Value Reference Range Interpretation Comme nts WBC (test code = 6690-2) See_Comment L [Automated Entegriona ge] The system which generated this result transmitted reference range: 4.30 - 11.10 10*3/?L. The reference range was not used to interpret this result as normal/abnormal. RBC (test code = 789-8) See_Comment L [Automated Entegriona ge] The system which generated this result [...] 34.7 g/dL 31.6-35.1 RDW-SD (test code = 38961-1) 41.0 fL 39-49.9 RDW-CV (test code = 788-0) 12.1 % 12-15.5 PLT (test code = 777-3) See_Comment [Automated messa ge] The system which generated this result transmitted reference range: 166 - 358 10*3/?L. The reference range was not used to interpret this result as normal/abnormal. MPV (test code = 91271-8) 9.5 fL 9.5-12.9 NRBC/100 WBC (test code = 1874084381) See_Comment [Automated [employer] ssage] The system which generated this result transmitted reference range: 0.0 - 10.0 /100 WBCs. The reference range was not used to interpret this result as normal/abnormal. NRBC x10^3 (test code = 4689735696) See_Comment [Automated messa ge] The system which generated this result transmitted reference range: 10*3/?L. The reference range was not used to interpret this result as normal/abnormal. GRAN MAT (NEUT) % (test code = 770-8) 50.7 % IMM GRAN % (test code = 1894920769) 0.30 % LYMPH % (test code = 736-9) 27.0 % MONO % (test code = 5905-5) 10.1 % EOS % (test code = 713-8) 10.7 % BASO % (test code = 706-2) 1.2 % GRAN MAT x10^3(ANC) (test code = 2668865488) 1.65 10*3/uL 1.88-7.09 L IMM GRAN x10^3 (test code = 1172686735) 0-0.06 LYMPH x10^3 (test code = 731-0) 0.88 10*3/uL 1.32-3.29 L MONO x10^3 (test code = 742-7) 0.33 10*3/uL 0.33-0.92 EOS x10^3 (test code = 711-2) 0.35 10*3/uL 0.03-0.39 BASO x10^3 (test code = 704-7) 0.04 10*3/uL 0.01-0.07 Lab Interpretation (test code = 92494-9) Abnormal [facility] METABOLIC PANEL (NA, K, CL, CO2, GLUCOSE, BUN, CREATININE, CA)2021-10-04 10:47:23* Test Item Value Reference Range Interpretation Comme nts NA (test code = 1407945677) 133 mmol/L 135-145 L K (test code = 9398697325) 3.8 mmol/L 3.5-5 CL (test code = 9687561576) 105 mmol/L 98-108 CO2 TOTAL (test code = 7687818569) 29 mmol/L 23-31 AGAP (test code = 0326082982) 2-16 L BUN (test code = 6125477010) 10 mg/dL 7-23 GLUCOSE (test code = 3668214110) 89 mg/dL 70-110 CREATININE (test code = 2074215947) 1.03 mg/dL 0.5-1.04 CALCIUM (test code = 6782028324) 8.6 mg/dL 8.6-10.6 eGFR (test code = 0367325779) mL/min/1.73m2 SZUE (test code = SUZE) Association of Glomerular [...] imaging tests). Lab Interpretation (test code = 87770-7) [facility] 10:27:12* Test Item Value Reference Range Interpretation Comme nts MAGNESIUM (test code = 2862098689) 1.8 mg/dL 1.7-2.4 Lab Interpretation (test cod e = 53643-4) Normal [facility] WITH [id number] 03:39:50* Test Item Value Reference Range Interpretation [...] 34.0 g/dL 31.6-35.1 RDW-SD (test code = 86911-4) 40.8 fL 39-49.9 RDW-CV (test code = 788-0) 11.9 % 12-15.5 L PLT (test code = 777-3) See_Comment L [Automated messa ge] The system which generated this result transmitted reference range: 166 - 358 10*3/?L. The reference range was not used to interpret this result as normal/abnormal. MPV (test code = 96751-1) 9.8 fL 9.5-12.9 NRBC/100 WBC (test code = 5875286995) See_Comment [Automated [employer] ssage] The system which generated this result transmitted reference range: 0.0 - 10.0 /100 WBCs. The reference range was not used to interpret this result as normal/abnormal. NRBC x10^3 (test code = 6934961493) See_Comment [Automated messa ge] The system which generated this result transmitted reference range: 10*3/?L. The reference range was not used to interpret this result as normal/abnormal. GRAN MAT (NEUT) % (test code = 770-8) 51.4 % IMM GRAN % (test code = 1776062310) 0.30 % LYMPH % (test code = 736-9) 26.5 % MONO % (test code = 5905-5) 10.8 % EOS % (test code = 713-8) 10.0 % BASO % (test code = 706-2) 1.0 % GRAN MAT x10^3(ANC) (test code = 5718263620) 1.96 10*3/uL 1.88-7.09 IMM GRAN x10^3 (test code = 6868001993) 0-0.06 LYMPH x10^3 (test code = 731-0) 1.01 10*3/uL 1.32-3.29 L MONO x10^3 (test code = 742-7) 0.41 10*3/uL 0.33-0.92 EOS x10^3 (test code = 711-2) 0.38 10*3/uL 0.03-0.39 BASO x10^3 (test code = 704-7) 0.04 10*3/uL 0.01-0.07 Lab Interpretation (test code = 75566-0) [facility] - ONCE Poenwox9269-16-82 03:38:54* Test Item Value Reference Range Interpretation Comme nts ABO & RH (test code = 20) O POSITIVE Performed at [facility] Laboratory Services [facility] Blood [place] [address]Toll Free: [phone] No. [id number] IAT (test code = 1185) Negative Performed at [facility] Laboratory Services [facility] Blood [place] [address]Toll Free: [phone] No. [id number] [facility] VUYVR3083-62-41 15:51:56* Test Item Value Reference Range Interpretation Comme nts IRON (test code = 9799844840) 78 ug/dL 50-160 TIBC (test code = 3517003263) 296 ug/dL 250-410 % FE SAT (test code = 6291818679) 26 % 20-50 Lab Interpretation (test cod e = 22235-7) Normal [facility]OL[facility] (NA, K, CL, CO2, GLUCOSE, BUN, CREATININE, CA)2021-10-03 04:19:41* Test Item Value Reference Range Interpretation Comme nts NA (test code = 9201808238) 136 mmol/L 135-145 K (test code = 6410749944) 3.5 mmol/L 3.5-5 CL (test code = 2235301552) 103 mmol/L 98-108 CO2 TOTAL (test code = 9144547943) 29 mmol/L 23-31 AGAP (test code = 0833054350) 2-16 BUN (test code = 0562614563) 14 mg/dL 7-23 GLUCOSE (test code = 6253559082) 118 mg/dL 70-110 H CREATININE (test code = 6393768026) 0.90 mg/dL 0.5-1.04 CALCIUM (test code = 8773507964) 9.4 mg/dL 8.6-10.6 eGFR (test code = 9791431564) mL/min/1.73m2 SUZE (test code = SUZE) Association [...] imaging tests). Lab Interpretation (test code = 85145-4) Abnormal [facility] WITH [id number] 03:59:15* Test Item Value Reference Range Interpretation Comme nts WBC (test code = 6690-2) See_Comment [Automated messa ge] The system which generated this result transmitted reference range: 4.30 - 11.10 10*3/?L. The reference range was not used to interpret this result as normal/abnormal. RBC (test code = 789-8) See_Comment [Automated messa ge] The system which [...] 33.9 g/dL 31.6-35.1 RDW-SD (test code = 81993-6) 42.7 fL 39-49.9 RDW-CV (test code = 788-0) 12.3 % 12-15.5 PLT (test code = 777-3) See_Comment [Automated messa ge] The system which generated this result transmitted reference range: 166 - 358 10*3/?L. The reference range was not used to interpret this result as normal/abnormal. MPV (test code = 74697-9) 9.7 fL 9.5-12.9 NRBC/100 WBC (test code = 8508679164) See_Comment [Automated [employer] ssage] The system which generated this result transmitted reference range: 0.0 - 10.0 /100 WBCs. The reference range was not used to interpret this result as normal/abnormal. NRBC x10^3 (test code = 1229957411) See_Comment [Automated messa ge] The system which generated this result transmitted reference range: 10*3/?L. The reference range was not used to interpret this result as normal/abnormal. GRAN MAT (NEUT) % (test code = 770-8) 66.4 % IMM GRAN % (test code = 4789909084) 0.10 % LYMPH % (test code = 736-9) 19.6 % MONO % (test code = 5905-5) 7.0 % EOS % (test code = 713-8) 5.7 % BASO % (test code = 706-2) 1.2 % GRAN MAT x10^3(ANC) (test code = 9144886311) 4.55 10*3/uL 1.88-7.09 IMM GRAN x10^3 (test code = 0133170858) 0-0.06 LYMPH x10^3 (test code = 731-0) 1.34 10*3/uL 1.32-3.29 MONO x10^3 (test code = 742-7) 0.48 10*3/uL 0.33-0.92 EOS x10^3 (test code = 711-2) 0.39 10*3/uL 0.03-0.39 BASO x10^3 (test code = 704-7) 0.08 10*3/uL 0.01-0.07 H Lab Interpretation (test code = 45414-8) [facility]normal [facility]GLOBIN (A1C)2021-10-03 03:46:09* Test Item Value Reference Range Interpretation Comme nts HGB A1C (test code = 4548-4) 5.0 % 4-5.7 SUZE (test code = SUZE) Reference RangesNormal: <5.7%Prediabetes: 5.7 - 6.4%Diabetes: > 6.5% Lab Interpretation (test code = 33206-5) Normal [facility] Confirmation (Lab Only)2021-10-02 21:53:37* Test Item Value Reference Range Interpretation Comme nts ABO & RH (test code = 20) O Positive Performed at [facility] Laboratory Services - [facility] Blood [address] [place] [address]Olwv Free: [phone] No. [id number] [facility] - ONCE [id number] 21:34:44 * Test Item Value Reference Range Interpretation Comme nts ABO & RH (test code = 20) O Positive Performed at [facility] Laboratory [facility] Blood [address] [place], [place] [address]Toll Free: [phone] No. [id number] IAT (test code = 1185) Negative Performed at [facility] Laboratory [facility] Blood [address] [place], [place] [address]Toll Free: [phone] No. [id number] [facility] Hospital[facility] METABOLIC PANEL (25591)2021-10-02 21:13:27* Test Item Value Reference Range Interpretation Comme nts NA (test code = 8332827302) 139 mmol/L 135-145 K (test code = 3817571810) 4.2 mmol/L 3.5-5 CL (test code = 6120620811) 102 mmol/L 98-108 CO2 TOTAL (test code = 1684481982) 29 mmol/L 23-31 AGAP (test code = 5342057932) 2-16 BUN (test code = 3224761820) 17 mg/dL 7-23 GLUCOSE (test code = 7217196257) 89 mg/dL 70-110 CREATININE (test code = 7653579483) 0.85 mg/dL 0.5-1.04 TOTAL BILI (test code = 3764324580) 1.5 mg/dL 0.1-1.1 H CALCIUM (test code = 2656211113) 9.5 mg/dL 8.6-10.6 T PROTEIN (test code = 3416659409) 6.9 g/dL 6.3-8.2 ALBUMIN (test code = 0242740436) 4.5 g/dL 3.5-5 ALK PHOS (test code = 3180958158) 83 U/L 34-122 ALTv (test code = 1742-6) 24 U/L 5-35 AST(SGOT) (test code = 0786500708) 35 U/L 13-40 eGFR (test code = 6228265325) mL/min/1.73m2 SUZE (test code = SUZE) Association [...] imaging tests). Lab Interpretation (test code = 92737-7) Abnormal [facility] HospitalACTIVATED PARTIAL THRMPLAS ERN5230-12-24 21:10:23* Test Item Value Reference Range Interpretation Comme [facility] APTT Patient (test code = 3173-2) See_Comment [Automated message] The system which generated this result transmitted reference range: 23 - 38 Seconds. The reference range was not used to interpret this result as normal/abnormal. SUZE (test code = SUZE) The [facility] patient population mean normal value for aPTT is 30 seconds. Lab Interpretation (test code = 10900-1) Normal [facility] HospitalProthrombin Time / LAB2004-08-54 21:08:06* Test Item Value Reference Range Interpretation Comme [facility] PROTIME PATIENT (test code = 5964-2) [...] the indications. Lab Interpretation (test code = 34412-8) Abnormal [facility] WITH [id number] 21:02:42* Test Item Value Reference Range Interpretation Comme nts WBC (test code = 6690-2) See_Comment [Automated messa ge] The system which generated this result transmitted reference range: 4.30 - 11.10 10*3/?L. The reference range was not used to interpret this result as normal/abnormal. RBC (test code = 789-8) See_Comment [Automated messa ge] The system which [...] 33.6 g/dL 31.6-35.1 RDW-SD (test code = 83107-7) 42.0 fL 39-49.9 RDW-CV (test code = 788-0) 12.2 % 12-15.5 PLT (test code = 777-3) See_Comment [Automated messa ge] The system which generated this result transmitted reference range: 166 - 358 10*3/?L. The reference range was not used to interpret this result as normal/abnormal. MPV (test code = 21985-5) 9.6 fL 9.5-12.9 NRBC/100 WBC (test code = 4405661619) See_Comment [Automated me ssage] The system which generated this result transmitted reference range: 0.0 - 10.0 /100 WBCs. The reference range was not used to interpret this result as normal/abnormal. NRBC x10^3 (test code = 4857045529) See_Comment [Automated messa ge] The system which generated this result transmitted reference range: 10*3/?L. The reference range was not used to interpret this result as normal/abnormal. GRAN MAT (NEUT) % (test code = 770-8) 66.2 % IMM GRAN % (test code = 1600446940) 0.20 % LYMPH % (test code = 736-9) 19.5 % MONO % (test code = 5905-5) 7.0 % EOS % (test code = 713-8) 5.7 % BASO % (test code = 706-2) 1.4 % GRAN MAT x10^3(ANC) (test code = 6590230358) 5.56 10*3/uL 1.88-7.09 IMM GRAN x10^3 (test code = 4551681186) 0-0.06 LYMPH x10^3 (test code = 731-0) 1.64 10*3/uL 1.32-3.29 MONO x10^3 (test code = 742-7) 0.59 10*3/uL 0.33-0.92 EOS x10^3 (test code = 711-2) 0.48 10*3/uL 0.03-0.39 H BASO x10^3 (test code = 704-7) 0.12 10*3/uL 0.01-0.07 H Lab Interpretation (test code = 37359-7) Abnormal [facility] Notes Date/Time Note Provider Source 2022-10-18 21:29:00 [id number]/2lilc AxlOnXBAMGDLunP4rTesLRw+OKl5F 2JL/iW4NjtFT9DVw7Ddfq58WQ5h7759-84-53T75:29:02751 -[address] [address] PATIENT NAME: LESLEY BREAUX ADMIT DATE: 09/19/22ACCOUNT NO: [id number] ROOM NO: L.S201 AGE: 87 REPORT TYPE: 360 - QUERY RESPONSE DOCUMENT SEX: F ADMITTING PHYSICIAN: Tejinder Toribio MD ATTENDING PHYSICIAN: Gissel Ortega MD Cardiology Provider Query QUERY TEXT: Condition Nutritional Status 360MD Query related questions should be directed to:[facility] Coding Query Helpline Based on your clinical judgment, please clarify the condition(s) that represent(s) the clinical indicators listed below. The patient's Clinical Indicators include:BMI Calculated: 19.3Nutrition related diagnosis: Severe malnutrition- Wound Care Progress Note 10/01/2022 Total Protein (6.4 - 8.2 G/DL) 4.6 L-Pulmonology Progress Note 09/29/2022 Albumin (3.4 - 5.0 G/DL) 1.9 L-Pulmonology Progress Note 09/29/2022 SODIUM CHLORIDE 0.9% 100 ML BAG-MARSODIUM CHLORIDE 0.9% 500 ML BAG-MAROptions provided:-- Mild protein-calorie/protein-energy malnutrition, Please specify supporting clinical documentation for severity (e.g. BMI, serum albumin, total lymphocyte count, CD4+, etc.) as well as supporting conditions such as disorders that affect GI function, wasting disorders, or metabolic conditions.-- Moderate protein-calorie/protein-energy malnutrition, Please specify supporting clinical documentation for severity (e.g. BMI, serum albumin, total lymphocyte count, CD4+, etc.) as well as supporting conditions such as disorders that affect GI function, wasting disorders, or metabolic conditions.-- Severe protein-calorie/protein-energy malnutrition, Please specify supporting clinical documentation for severity (e.g. BMI, serum albumin, total lymphocyte count, CD4+, etc.) as well as supporting conditions such as disorders that affect GI function, wasting disorders, or metabolic conditions.-- Unspecified protein-calorie/protein-energy malnutrition-- Failure to thrive-- Weight Loss-- Underweight-- Other - I will add my own diagnosis-- Dismiss - Not applicable / Not valid-- Dismiss - Clinically unable to determine / Unknown-- Assign to another provider QUERY RESPONSE: The patient has mild protein-calorie/protein-energy malnutrition. Query created by: BRENT Gomez on 10/06/2022 2:32 AM at 8582 PATIENT NAME: LESLEY BREAUX noteL.[id number] for patient voiuSDZACKQJCAEHRE4469-17-25S40:30:11 [facility] 2022-10-06 18:28:00 [id number] ozhtxgsVIHpzGt1ERo/k/qr+diQHB 7bsdA0RyrBqc9NJ8vDEK+GcVNfS2892-52-67X84:28:73288 0-[address] [address] PATIENT NAME: LESLEY BREAUX ADMIT DATE: 09/19/22ACCOUNT NO: [id number] ROOM NO: L.S201 AGE: 87 REPORT TYPE: 360 - QUERY RESPONSE DOCUMENT SEX: F ADMITTING PHYSICIAN: Tejinder Toribio MD ATTENDING PHYSICIAN: Gissel Ortega MD Cardiology Provider Query QUERY TEXT: Clarification Infectious Status POA 360MD Query related questions should be directed to: [facility] Coding Query Helpline Based on your clinical judgment, please clarify the condition(s) that represent(s) the clinical indicators listed below and if the condition(s) are present on admission (POA). The following definitions are provided based on industry literature and in collaboration with [facility] Clinical Services Group for your reference only:--Localized Infection - An infection that affects only one organ or body part (e.g., UTI, Pneumonia)--Bacteremia - Nonspecific laboratory finding of bacteria in the blood--Sepsis - A presumed or confirmed systemic response to infectious process with >2 clinical indicators such as: Temperature >38.3C or <36.0C, tachycardia, > 20 respiratory rate, WBC >12,000 or < 4,000 or > 10% bands--Severe Sepsis - Sepsis with additional clinical indicators such as Organ failure with any of the following: systolic BP < 90 or MAP < 65 or SBP decrease more 40 mm Hg from last recorded SBP considered normal for patient, Creatinine > 2.0, urine output < 0.5 ml/kg/hour for 2 hours, Bilirubin > 2 mg/dL, platelet count < 100,000, INR > 1.5, PTT > 60 sec, lactate > 2 mmol/L--Septic Shock - Severe Sepsis with Lactic acid > 4 mmol/L or persistent hypotension The patient's Clinical Indicators include:SIRS (fever, leukocytosis) likely due to above-Infectious Dis. Progress Note 10/01/2022ventricular tachycardia. -CARDIAC CATHETERIZATION 09/18/2022Recurrent C. difficile colitis-Pulmonology Progress Note 09/30/2022eFAZolin SODIUM 1 GM VIAL-MARNOREPINEPHRINE BIT/0.9 % NACL 16 MG/250 ML ML - MAROptions provided:-- Sepsis, Please specify POA status (i.e., Y=Yes, N=No, W=Unable to clinically determine) and causative organism if known.-- Severe Sepsis, Please specify POA status (i.e., Y=Yes, N=No, W=Unable to clinically determine) and causative organism if known.-- Severe Sepsis with septic shock, Please specify POA status (i.e., Y=Yes, N=No, W=Unable to clinically determine) and causative organism if known.-- Localized infection, Please specify the infection and POA status (i.e., Y=Yes, N=No, W=Unable to clinically determine).-- Other - I will add my own diagnosis-- Dismiss - Not applicable / Not valid-- Dismiss - Clinically unable to determine / Unknown-- Assign to another provider QUERY RESPONSE: The patient has localized infection. Query created by: Andre Wilson on 10/05/2022 1:14 PM at 1828 PATIENT NAME: LESLEY BREAUX noteL.[id number] for patient dxnwIWVHKILKSVLTKU2961-88-53U81:29:27 [facility] 2022-10-01 15:46:00 [id number] PFaNVmpsL0ALN9Ic8Op25P9SCh3hO TDm0ddfgPYkAlHiywGNcJ8/6ecY3110-63-13C62:46:00 [facility] ([facility])Wound Care Progress NoteREPORT#:[id number] REPORT STATUS: SignedDATE:10/01/22 TIME:1546 PATIENT: LESLEY BREAUX UNIT #: [id number]#: [id number] [address] AGE: 87 SEX: F ATTEND: Gissel Ortega MD CardiologyADM AUTHOR: Karlo Francis MD * ALL edits or amendments must be made on the electronic/computer document * SubjectiveChief complaint:Wound CareHPI:no acute eventsUnable to obtain: medical condition Objective GeneralVS:Last Documented: Result Date Time O2 Delivery Nasal cannula 10/01 1457 O2 Flow Rate 2 10/01 1457 Pulse Ox 94 10/01 1202 B/P 127/71 10/01 1202 B/P Mean 89.3 10/01 1202 Temp 97.7 10/01 1202 Pulse 75 10/01 1202 Resp 18 10/01 1202 FiO2 21 10/01 0640 PATIENT WEIGHT: Weight (lb): 99Weight (oz): 3.33Weight (kg): 44.906 Medications:Active Meds + DC'd Last 24 HrsPatient Own Medication (PATIENT'S OWN MEDICATION) REXULTI 1MG BEDTIME PO (DCD) Magnesium Oxide [...] IV (DCD) Potassium Chloride (POTASSIUM CHLORIDE 10 MEQ/SWFI 50 ML) 50 ML ASDIR PRN IV (DCD) Potassium Chloride (KCL 20 MEQ/SWFI 100 ML) 100 ML ASDIR PRN IV (DCD) Potassium Chloride (KCL 20 MEQ/SWFI 100 ML) 100 ML ASDIR PRN IV (DCD) Potassium Chloride (KCL 20 MEQ/SWFI 100 ML) 100 ML ASDIR PRN IV (DCD) Potassium Chloride (K-DUR 20 mEq) 20 MEQ ASDIR PRN PO (DCD) Potassium Chloride (K-DUR 20 mEq) 20 MEQ ASDIR PRN PO (DCD) Midodrine (PROAMATINE) 5 MG TID PO (DCD) Enoxaparin Sodium (lovENOX) 30 MG Q24H SUBQ (DCD) Metronidazole/Sodium Chloride (metroNIDAZOLE 500MG / 100 MLNS) 100 ML Q8HR IV (DCD) Nystatin (MYCOSTATIN 15 GM POWDER) 1 APPLIC Q12H TOPICAL (DCD) Ondansetron HCl (ZOFRAN) 4 MG Q6H PRN PRN IV (DCD) Norepinephrine Bitartrate (Levophed 16 MG/250 ML NS) 250 ML ASDIR IV (DCD) Lactobacillus Acidophilus (BACID) 1 CAP BID PO (DCD) Fidaxomicin (DIFICID) 200 MG Q12HR PO (DCD) Furosemide (LASIX 20MG INJ) 20 MG Q12HR IV (DCD) Sodium Chloride (SODIUM CHLORIDE) 10 ML ASDIR IV (DCD) Zolpidem Tartrate (AMBIEN) 5 MG BEDTIME PRN PRN PO (DC) Acetylcysteine (MUCOMYST 20% 4 ML) 200 MG RTQ6H NEB (DCD) Iopamidol (ISOVUE-300) 100 ML ONCE PRN IV (DCD) Sodium Chloride (0.9% Sodium Chloride) 50 ML ONCE PRN IV (DCD) Albuterol/Ipratropium (DUONEB) 3 ML RTQ6H PRN PRN NEB (DCD) Iopamidol (ISOVUE-370) 100 ML ONCE PRN IV (DCD) Atorvastatin Calcium (LIPITOR) 10 MG BEDTIME PO (DCD) Sertraline HCl (ZOLOFT) 25 MG DAILY PO (DCD) Acetaminophen (TYLENOL) 650 MG Q4H PRN PRN PO (DCD) Ondansetron HCl (ZOFRAN ODT) 4 MG Q8H PRN PRN PO (DCD) Sodium Chloride (SODIUM CHLORIDE) SALINE FLUSH ASDIR PRN IV (DCD) Dietitian Nutrition assessmentThe data set between the solid lines has been imported from the dietitian's assessment. BMI Calculated: 19.3Nutrition related diagnosis: Severe malnutritionNutrition diagnosis details: Nutrition problem: Severe malnutritionNutrition etiology: Acute illness, Decreased/poor appetite, DiarrheaNutrition signs and symptoms: Moderate muscle loss, Moderate subcutaneous fat loss, 20% or more weight loss, Less than 25% intakeNutrition prescription: 1) Continue regular diet, honor food preferences 2) Will d/c Ensure Clear - pt reports they are too sweet 3) Continue Bannatrol 4) Encourage oral intake of food/supplementsDietitian name: Sandi Leal RD,LDAssessment completed: 09/30/22 Physical ExamGeneral appearance: chronically ill appearingRespiratory: no distressAbdomen: non-tenderExtremities: no edema Wound AssessmentWound Assessment 1: Type/cause: pressure Wound location: buttock, sacral region Tissue layers: limited to skin breakdown Site condition: no drainage, no ecchymosis, no erythema Stage of pressure ulcer: stage II Diagnosis, Assessment PlanProblem List/A P: 1. Decubitus ulcer of sacral [...] per RN shift. 4. C. difficile diarrhea at 1547 RPT #: [id number] OF REPORT PNProcedure [id number]:46:00L.[id number] able for patient aqmhJWPIZNQJBJAWWK0349-26-43U58:47:16 [facility] 2022-10-01 12:21:00 [id number] lk2Pmu7qCYBO0bkU1KRcrn4eFNcYn fwHiL6dkiN2y8wKDLt/95lYSElq6041-02-04G49:21:00 [facility] ([facility])Hospitalist Discharge SummaryREPORT#:[id number] REPORT STATUS: SignedDATE:10/01/22 TIME:1221 PATIENT: LELSEY BREAUX UNIT #: [id number]#: [id number] [address] [birth year] AGE: 87 SEX: F ATTEND: Gissel Ortega MD CardiologyADM AUTHOR: Art Tavera MD * ALL edits or amendments must be made on the electronic/computer document * General InformationDischarge date: 10/01/22Discharge diagnosis:Paroxysmal Afib, sick sinus syndrome, tachybrady syndrome s/p PPM placements/p PPM placement by Cardiology Dr. Ortega 09/18/22Complex moderate left pleural effusion / hemothorax, s/p R sided Cx tube in place with 600c of bloody fluid removedStatus post removal of the chest tubeAcute normocytic anemia, possibly due to acute blood loss with possible hemothoraxStatus post transfusionHypotension with a history of hypertensionCOPDC. difficile colitisHyponatremiaAcute kidney injury Hospital course:87 y/o female with PMHx of HTN, HLD, COPD, paroxysmal Afib, sick sinus syndrome,tachybrady syndome admitted for: Paroxysmal Afib, sick sinus syndrome, tachybrady syndrome s/p PPM placements/p PPM placement by Cardiology Dr. Ortega 09/18/22Continue to monitor under continuous telemetryMonitor PPM insertion sitePain control with Tylenol/Tramadol PRNContinue home coregHold home Eliquis due to anemia with possible hemothorax Complex moderate left pleural effusion / hemothorax, s/p R sided Cx tube in place with 600c of bloody fluid removedAppreciate pulm medicine, pain controlStatus post removal of the chest tube Acute normocytic anemia, possibly due to acute blood loss with possible hemothoraxStatus post transfusionMonitor H H closely Hypotension with a history of hypertensionHold home coreg, losartanTransferred to ICUStarted on LevophedWe will try to wean down to MAP of 65Added on midodrine COPDNot in acute exacerbationDuoneb tx PRN C. difficile colitisStarted on fidaxomicinID consultedContinues to have diarrheaAdd on probiotics HyponatremiaElectrolytes monitor and replace accordingly Acute kidney injuryRenal parameters monitored DVT prophylaxis with SCDs, held home Eliquis due to anemia Full code Total critical care time used was 33 minutes Off LevophedNoted to have some bleeding in the rectal tubeHemoglobin monitored We will DC rectal tubePT OT evaluationMay need placementDiscussed with case managementDiscussed with ID and pulmonology Monitor closely under telemetryPatient has been psychosis , Possibly ICU relatedWe will give Seroquel at nightHemoglobin monitoredAnd is stableAwaiting placementDiscussed with case management Patient and family wants to go home with home health Will DC home today Med Rec Med RecDischarge meds:Stop taking the following medications:LOSARTAN (COZAAR) 25 MG TAB 12.5 MILLIGRAM ORAL DAILY. CARVEDILOL (COREG) 6.25 MG TAB 3.125 MILLIGRAM ORAL DAILY. Continue taking these medications:APIXABAN (ELIQUIS) 2.5 MG TAB 2.5 MILLIGRAM ORAL [...] PUFF INHALATION TWICE DAILY. as needed for SOB Start taking the following new medications:FIDAXOMICIN (DIFICID) 200 MG TAB 200 MILLIGRAM ORAL EVERY 12 HOURS. Qty = 8 No Refills LACTOBACILLUS ACIDOPHILUS (PROBIOTIC ACIDOPHILUS) 1 CAP CAP 1 CAPSULE ORAL TWICE DAILY. Qty = 20 No Refills metroNIDAZOLE (FLAGYL) 500 MG TAB 500 MILLIGRAM ORAL EVERY 12 HOURS. Qty = 14 No Refills ObjectiveVS/I OLast Documented: Result Date Time Pulse Ox 94 10/01 1202 B/P 127/71 10/01 1202 B/P Mean 89.3 10/01 1202 O2 Delivery Room air 10/01 1202 Temp 97.7 10/01 1202 Pulse 75 10/01 1202 Resp 18 10/01 1202 FiO2 21 10/01 0640 O2 Flow Rate 4 09/30 2000 24 hour I O ending at 0700: 10/01 0700 09/30 1900 Intake Total Output Total 1500 Balance -1500 Output, Urine 1500 General appearance: alert, awakeHead/Eyes: atraumatic, normocephalicENT: dry mucosal membraneNeck: supple/no meningismusCardiovascular: normal heart sounds, regular rate rhythmRespiratory: decreased breath sounds, on oxygen, symmetric expansion, no distress, PPM site c/d/i, no overlying edema, erythema or warmthAbdomen: non-tender, softGenitourinary: no bladder distentionExtremities: moves all, no edemaMusculoskeletal: no CVA tendernessNeuro/BRIM WELT SEWING MACHINE OPERATOR: alert, normal speechSkin: dryPsychiatry: normal affect, normal mood Discharge Instructions PCPDischarge to: Home Health wPlan of CareAdditional Discharge Routines: PCP Follow-Up, Dry Talc Racker Follow-UpDiet: Resume Home Diet/FeedsDischarge management: greater than 30 mins Follow-up AppointmentsPCP follow-up: PCP: Gissel Ortega MD Cardiology PCP follow up timeframe: In 1-2 weeksConsulting provider 1: Provider 1: Mauro Arce MD Specialty: Pulmonary Disease Consult follow up timeframe: In 1-2 weeksConsulting provider 2: Provider 2: Curtis Sun MD Specialty: Infectious Disease Follow up timeframe: In 1-2 weeks at 1459 RPT #: [id number] OF REPORT DSDischarge ytiumee5416-28-37A39:21:00L.[id number] ailable for patient ikeeZALXWEIYTQUSOR0504-34-28P97:00:34 [facility] 2022-10-01 11:55:00 [id number] Q6ppYt3LCV48fUM4ACalM6cZYrPZ2 NPL4Gs8KAdChMpe7AozOqmFXroP3673-30-04F46:55:00 [facility]ulmon[facility] Progress NoteREPORT#:[id number] REPORT STATUS: SignedDATE:10/01/22 TIME:1155 PATIENT: LESLEY BREAUX UNIT #: [id number]#: [id number] [address]HDF: [birth year] AGE: 87 SEX: F ATTEND: Gissel Ortega MD CardiologyADM AUTHOR: Mauro Arce MD * ALL edits or amendments must be made on the electronic/computer document * SubjectiveChief complaint: No distress stable breathing on nasal cannulahemodynamically stableHPI:Pleasant 87-year-old lady who underwent pacemaker placement yesterday for tachybradycardia syndrome.She was having more shortness of breath and left-sided chest pain for which a CTangiogram of the chest was done, see full report.Images reviewed and discussed with patient and granddaughter.There is a small to moderate size left pleural effusion with different densitiessuggesting possible blood product. There are also chronic appearing reticular nodular, tree-in-bud type peripheral mostly lower zone infiltrates right more than left, no prior CT images to compare.The patient denies much in the way of chronic sputum fevers chills sweats or significant weight loss.The patient has emphysema has seen pulmonary doctors in the outpatient setting at [facility] but never smoked.Except described above, review of systems x14 is negative and normal. Review of Systems ROSSkin:Denies: itching, laceration. Allergy/Immun:Denies: anaphylaxis, hives. ENT:Denies: hearing loss, mouth pain. GI:Reports: abdominal pain, diarrhea. Denies: hematemesis, hematochezia. Neuro:Denies: lightheaded, numbness. Objective GeneralVS/I O:Last Documented: Result Date Time Pulse Ox 93 10/01 0746 B/P 115/68 10/01 0746 B/P Mean 83.5 10/01 0746 O2 Delivery Nasal cannula 10/01 745 Temp 36.7 10/01 0646 Pulse 84 10/01 0746 Resp 20 10/01 745 FiO2 21 10/01 0640 O2 Flow Rate 4 10/01 1999 24 hour I O ending at 0700: 10/01 0700 09/30 1900 Intake Total Output Total 1500 Balance -1500 Output, Urine 1500 PATIENT WEIGHT: Weight (lb): 99Weight (oz): 3.33Weight (kg): 44.906 Medications:Active Meds + DC'd Last 24 HrsPatient Own Medication (PATIENT'S OWN MEDICATION) REXULTI 1MG BEDTIME PO Potassium Phosphate (POTASSIUM PHOSPHATE) 15 MMOL ONCE ONE IV (DC) Sodium Chloride (SODIUM CHLORIDE 0.9%) 250 MLMagnesium Oxide (MAG-OX 400) 400 MG Q8H PRN PRN PO Magnesium Sulfate (MAGNESIUM SULFATE 2 G IN SWFI 50 ML) 50 ML ASDIR PRN IV Magnesium Sulfate (MAGNESIUM SULFATE 2 G IN SWFI 50 ML) 50 ML Q2H PRN PRN IV Quetiapine Fumarate (SEROqueL) 12.5 MG BEDTIME PO (DC) Olanzapine (ZyPREXA) 2.5 MG DAILY PO (DC) Magnesium Oxide (MAG-OX 400) 400 MG Q8H PRN PRN PO Magnesium Sulfate (MAGNESIUM SULFATE 2 G IN SWFI 50 ML) 50 ML ASDIR PRN IV Magnesium Sulfate (MAGNESIUM SULFATE 2 G IN SWFI 50 ML) 50 ML Q2H PRN PRN IV Potassium Chloride (POTASSIUM CHLORIDE 10 MEQ/SWFI 50 ML) 50 ML ASDIR PRN IV Potassium Chloride (KCL 20 MEQ/SWFI 100 ML) 100 ML ASDIR PRN IV Potassium Chloride (KCL 20 MEQ/SWFI 100 ML) 100 ML ASDIR PRN IV Potassium Chloride (KCL 20 MEQ/SWFI 100 ML) 100 ML ASDIR PRN IV Potassium Chloride (K-DUR 20 mEq) 20 MEQ ASDIR PRN PO Potassium Chloride (K-DUR 20 mEq) 20 MEQ ASDIR PRN PO Midodrine (PROAMATINE) 5 MG TID PO Enoxaparin Sodium (lovENOX) 30 MG Q24H SUBQ Metronidazole/Sodium Chloride (metroNIDAZOLE 500MG / 100 MLNS) 100 ML Q8HR IV [...] Sodium Chloride (0.9% Sodium Chloride) 50 ML ONCE PRN IV Albuterol/Ipratropium (DUONEB) 3 ML RTQ6H PRN PRN NEB Iopamidol (ISOVUE-370) 100 ML ONCE PRN IV Atorvastatin Calcium (LIPITOR) 10 MG BEDTIME PO Sertraline HCl (ZOLOFT) 25 MG DAILY PO Acetaminophen (TYLENOL) 650 MG Q4H PRN PRN PO Ondansetron HCl (ZOFRAN ODT) 4 MG Q8H PRN PRN PO Sodium Chloride (SODIUM CHLORIDE) SALINE FLUSH ASDIR PRN IV Physical ExamHead/eyes: atraumatic, normocephalic, normal conjunctiva/scleraENT: ENT: moist mucosal membranes, normal pharynxNeck: non-tender, supple/no meningismusCardiovascular: normal S1/S2, regular rate rhythmRespiratory/chest: decreased breath sounds, on oxygen, rales, bandage, slingAbdomen: soft, non-tenderExtremities: edema, no clubbing, no cyanosisMusculoskeletal: normal inspection, no muscle spasmNeuro/BRIM WELT SEWING MACHINE OPERATOR: alert, oriented X 3, no motor deficitsSkin: dry, intactLymphatics: neck normal, no lymphadenopathy ResultsFindings/Data:Laboratory Tests 10/01/22451:[Embedded Image Not Available]Laboratory Tests 10/02 451 Chemistry Sodium (134 - 147 mmol/L) 143 Potassium (3.4 - 5.0 mmol/L) 3.7 Chloride (100 - 108 mmol/L) 107 Carbon Dioxide (21 - 32 mmol/L) 34 H Anion Gap (4.0 - 15.0 GAP calc) 2.0 L BUN (7 - 18 MG/DL) 17 Creatinine (0.6 - 1.0 MG/DL) 0.9 Glomerular Filtr Rate (>60 estGFR) >=60 max estimate Glucose (70 - 110 MG/DL) 94 Calcium [...] (Auto) (20.5 - 51.1 %) 15.0 L Erath % (Auto) (1.7 - 9.3 %) 5.8 Eos % (Auto) (0.0 - 6.0 %) 7.9 H Baso % (Auto) (0.0 - 2.0 %) 0.8 Neut # (Auto) (1.8 - 7.6 K/mm3) 4.4 Lymph # (Auto) (0.6 - 3.2 K/mm3) 1.0 Erath # (Auto) (0.3 - 1.1 K/mm3) 0.4 Eos # (Auto) (0.0 - 0.4 K/mm3) 0.5 H Baso # (Auto) (0.0 - 0.1 K/mm3) 0.1 Abs Immat Gran (auto) (0.00 - 0.03 x10 3/uL) 0.06 H Add Manual Diff (CRITERIA DIFF/SCN) NO Immature Gran % (0.0 - 5.0 %) 0.9 Nucleated RBC % (0.0 - 1.0 /100WBC%) 0.0 Diagnosis, Assessment PlanFree Text A P: 1.Status post pacemaker, tachybradycardia syndrome, history of atrial fibrillation2. Left hemothorax that was drained3. Recurrent C. difficile colitis 4. Emphysema5. Hypertension6. Lidocaine allergy cont midodrine TID Replace electrolytesShe was noted to have C. difficile colitis Antibiotics for C Diff ProbioticsIncentive spirometryLast chest x-ray stableok to DC on home oxygen 2 /M Wound care for sacral wound at 1158 RPT #: [id number] OF REPORT PRProgress [id number]:55:00L.[id number] able for patient qxnlLZMVLVATAMPHRE3404-77-91M44:58:29 [facility] 2022-10-01 10:32:00 [id number] DRWpEHF2AuasaNkpYZGxIImQ37DTb AqRVU8/4+xfjZm5XppTUTlHkBD00752-63-56Y38:32:00 [facility] ([facility])Hospitalist Progress NoteREPORT#:[id number] REPORT STATUS: SignedDATE:10/01/22 TIME:1032 PATIENT: LESLEY BREAUX UNIT #: [id number]#: [id number] ROOM/BED: [address]NER: [address] AGE: 87 SEX: F ATTEND: Gissel Ortega MD CardiologyADM AUTHOR: Art Tavera MD * ALL edits or amendments must be made on the electronic/computer document * SubjectiveChief complaint:Sleeping comfortablyDenies any abdominal painContinues to have some diarrhea on and off Objective GeneralVS/I O:Vital Signs: Date Time Temp Pulse Resp B/P B/P Pulse O2 O2 Flow FiO2 Mean Ox Delivery Rate 10/01 0746 [...] Output, Urine 1500 PATIENT WEIGHT: Weight (lb): 99Weight (oz): 3.33Weight (kg): 44.906 Medications:Active Meds + DC'd Last 24 HrsPatient Own Medication (PATIENT'S OWN MEDICATION) REXULTI 1MG BEDTIME PO Magnesium Sulfate (MAGNESIUM SULFATE 2 G IN SWFI 50 ML) 50 ML ONCE ONE IV (DC) Potassium Phosphate (POTASSIUM PHOSPHATE) 15 MMOL ONCE ONE IV (DC) Sodium Chloride (SODIUM CHLORIDE 0.9%) 250 MLMagnesium Oxide (MAG-OX 400) 400 MG Q8H PRN PRN PO Magnesium Sulfate (MAGNESIUM SULFATE 2 G IN SWFI 50 ML) 50 ML ASDIR PRN IV Magnesium Sulfate (MAGNESIUM SULFATE 2 G IN SWFI 50 ML) 50 ML Q2H PRN PRN IV Quetiapine Fumarate (SEROqueL) 12.5 MG BEDTIME PO (DC) Olanzapine (ZyPREXA) 2.5 MG DAILY PO (DC) Magnesium Oxide (MAG-OX 400) 400 MG Q8H PRN PRN PO Magnesium Sulfate (MAGNESIUM SULFATE 2 G IN SWFI 50 ML) 50 ML ASDIR PRN IV Magnesium Sulfate (MAGNESIUM SULFATE 2 G IN SWFI 50 ML) 50 ML Q2H PRN PRN IV Potassium Chloride (POTASSIUM CHLORIDE 10 MEQ/SWFI 50 ML) 50 ML ASDIR PRN IV Potassium Chloride (KCL 20 MEQ/SWFI 100 ML) 100 ML ASDIR PRN IV Potassium Chloride (KCL 20 MEQ/SWFI 100 ML) 100 ML ASDIR PRN IV Potassium Chloride (KCL 20 MEQ/SWFI 100 ML) 100 ML ASDIR PRN IV Potassium Chloride (K-DUR 20 mEq) 20 MEQ ASDIR PRN PO Potassium Chloride (K-DUR 20 mEq) 20 MEQ ASDIR PRN PO Midodrine (PROAMATINE) 5 MG TID PO Enoxaparin Sodium (lovENOX) 30 MG Q24H SUBQ Metronidazole/Sodium Chloride (metroNIDAZOLE 500MG / 100 MLNS) 100 ML Q8HR IV [...] Sodium Chloride (0.9% Sodium Chloride) 50 ML ONCE PRN IV Albuterol/Ipratropium (DUONEB) 3 ML RTQ6H PRN PRN NEB Iopamidol (ISOVUE-370) 100 ML ONCE PRN IV Atorvastatin Calcium (LIPITOR) 10 MG BEDTIME PO Sertraline HCl (ZOLOFT) 25 MG DAILY PO Acetaminophen (TYLENOL) 650 MG Q4H PRN PRN PO Ondansetron HCl (ZOFRAN ODT) 4 MG Q8H PRN PRN PO Sodium Chloride (SODIUM CHLORIDE) SALINE FLUSH ASDIR PRN IV Dietitian nutrition assessmentThe data set between the solid lines has been imported from the dietitian's assessment. BMI Calculated: 19.3Nutrition related diagnosis: Severe malnutritionNutrition diagnosis details: Nutrition problem: Severe malnutritionNutrition etiology: Acute illness, Decreased/poor appetite, DiarrheaNutrition signs and symptoms: Moderate muscle loss, Moderate subcutaneous fat loss, 20% or more weight loss, Less than 25% intakeNutrition prescription: 1) Continue regular diet, honor food preferences 2) Will d/c Ensure Clear - pt reports they are too sweet 3) Continue Bannatrol 4) Encourage oral intake of food/supplementsDietitian name: Sandi Leal RD,LDAssessment completed: 09/30/22 Physical ExamGeneral appearance: alert, awakeHead/Eyes: atraumatic, normocephalicENT: dry mucosal membraneNeck: supple/no meningismusCardiovascular: normal heart sounds, regular rate rhythmRespiratory: decreased breath sounds, on oxygen, symmetric expansion, no distress, PPM site c/d/i, no overlying edema, erythema or warmthAbdomen: non-tender, softGenitourinary: no bladder distentionExtremities: moves all, no edemaMusculoskeletal: no CVA tendernessNeuro/BRIM WELT SEWING MACHINE OPERATOR: alert, normal speechSkin: dryPsychiatry: normal affect, normal mood ResultsFindings/Data:Laboratory Tests 10/01 0452 Chemistry Sodium (134 - 147 mmol/L) 143 Potassium (3.4 - 5.0 mmol/L) 3.7 Chloride (100 - 108 mmol/L) 107 Carbon Dioxide (21 - 32 mmol/L) 34 H Anion Gap (4.0 - 15.0 GAP calc) 2.0 L BUN (7 - 18 MG/DL) 17 Creatinine (0.6 - 1.0 MG/DL) 0.9 Glomerular Filtr Rate (>60 estGFR) >=60 max estimate Glucose (70 - 110 MG/DL) 94 Calcium (8.5 - 10.1 MG/DL) 8.3 L Phosphorus (2.5 - 4.9 MG/DL) 3.0 Magnesium (1.8 - 2.4 MG/DL) 2.0 Laboratory Tests 10/01 0452 Hematology WBC (3.5 - 11.0 K/mm3) 6.3 [...] (Auto) (20.5 - 51.1 %) 15.0 L Erath % (Auto) (1.7 - 9.3 %) 5.8 Eos % (Auto) (0.0 - 6.0 %) 7.9 H Baso % (Auto) (0.0 - 2.0 %) 0.8 Neut # (Auto) (1.8 - 7.6 K/mm3) 4.4 Lymph # (Auto) (0.6 - 3.2 K/mm3) 1.0 Erath # (Auto) (0.3 - 1.1 K/mm3) 0.4 Eos # (Auto) (0.0 - 0.4 K/mm3) 0.5 H Baso # (Auto) (0.0 - 0.1 K/mm3) 0.1 Abs Immat Gran (auto) (0.00 - 0.03 x10 3/uL) 0.06 H Add Manual Diff (CRITERIA DIFF/SCN) NO Immature Gran % (0.0 - 5.0 %) 0.9 Nucleated RBC % (0.0 - 1.0 /100WBC%) 0.0 Diagnosis, Assessment Plan Free Text DxA P NotesFree text DxA P notes:87 y/o female with PMHx of HTN, HLD, COPD, paroxysmal Afib, sick sinus syndrome,tachybrady syndome admitted for: Paroxysmal Afib, sick sinus syndrome, tachybrady syndrome s/p PPM placements/p PPM placement by Cardiology Dr. Ortega 09/18/22Continue to monitor under continuous telemetryMonitor PPM insertion sitePain control with Tylenol/Tramadol PRNContinue home coregHold home Eliquis due to anemia with possible hemothorax Complex moderate left pleural effusion / hemothorax, s/p R sided Cx tube in place with 600c of bloody fluid removedAppreciate pulm medicine, pain controlStatus post removal of the chest tube Acute normocytic anemia, possibly due to acute blood loss with possible hemothoraxStatus post transfusionMonitor H H closely Hypotension with a history of hypertensionHold home coreg, losartanTransferred to ICUStarted on LevophedWe will try to wean down to MAP of 65Added on midodrine COPDNot in acute exacerbationDuoneb tx PRN C. difficile colitisStarted on fidaxomicinID consultedContinues to have diarrheaAdd on probiotics HyponatremiaElectrolytes monitor and replace accordingly Acute kidney injuryRenal parameters monitored DVT prophylaxis with SCDs, held home Eliquis due to anemia Full code Total critical care time used was 33 minutes Off LevophedNoted to have some bleeding in the rectal tubeHemoglobin monitored We will DC rectal tubePT OT evaluationMay need placementDiscussed with case managementDiscussed with ID and pulmonology Monitor closely under telemetryPatient has been psychosis , Possibly ICU relatedWe will give Seroquel at nightHemoglobin monitoredAnd is stableAwaiting placementDiscussed with case management Patient and family wants to go home with home health Will DC home today at 1443 RPT #: [id number] OF REPORT PRProgress ldwv5709-33-83V79:32:00L.[id number] able for patient cdalFFGEJXHQKOSKEH7872-11-25S45:44:23 [facility] 2022-10-01 09:55:00 [id number] sV3wA2X5jK91kRmcjoLZwgWf0TBBB P3oGINdatCdR1J1GRapiRXYGong9964-92-93L81:55:00 [facility] ([facility])Infectious Dis. Progress NoteREPORT#:[id number] REPORT STATUS: SignedDATE:10/01/22 TIME:954 PATIENT: LESLEY BREAUX UNIT #: [id number]#: [id number] [address] AGE: 87 SEX: F ATTEND: Gissel Ortega MD CardiologyADM AUTHOR: Curtis Sun MD * ALL edits or amendments must be made on the electronic/computer document * SubjectiveChief complaint:Recurrent C. diff.HPI:WBC remains normal. Pt is on fidamoxicin and IV metronidazole. Review of SystemsConstitutional:Denies: fever. Objective Physical ExamGeneral appearance: awakeHead/Eyes: atraumatic, clear cornea, normal conjunctiva/sclera, normal eyelids/periorb, normocephalicNeck: full range of motion, non-tender, supple/no meningismusCardiovascular: regular rate rhythmRespiratory: symmetric expansion, no distressAbdomen: soft, no CVA tenderness, no distention, no guarding, no mass/organomegaly, no rebound, Less tendernessExtremities: normal temperature, no cyanosisNeuro/BRIM WELT SEWING MACHINE OPERATOR: alert, normal speechSkin: normal turgor, no rash Diagnosis, Assessment PlanFree Text A P:Laboratory Tests 10/01/22 0452:[Embedded Image Not Available] Imaging:CXR reviewed 09/24CTAP reviewed 09/20 Assessment:1. Recurrent C. difficile colitis. Per family, pt responded better to fidaxomicin compared with vancomycin during previous episodes.2. SIRS (fever, leukocytosis) likely due to above.3. Left pleural effusion s/p chest tube removal.4. S/p pacemaker placement 8/12/23.5. Allergy to penicillin (hives) and sulfas (passed out). Plan:1. Fidaxomicin (day 8 of ).2. IV metronidazole (day 6 of ) added as WBC increased while on fidaxomicin.3. Avoid systemic abxs if possible.4. Monitor CBC.5. Monitor kidney function. at 1149 RPT #: [id number] OF REPORT PRProgress fmku7793-52-49C79:55:00L.[id number] able for patient xmfjRETSEQVDMFPRIV2742-70-18F85:49:48 [facility] 2022-09-30 16:43:00 [id number] zRMu09MqTZBpEYU6108S/JlktHpk/ q8sroPPgj3fomHGjrwngIDPpz576206-11-70M94:43:00 [facility]Wound Care Progress NoteREPORT#:[id number] REPORT STATUS: SignedDATE:09/30/22 TIME:1643 PATIENT: LESLEY BREAUX UNIT #: [id number]#: [id number] [address] AGE: 87 SEX: F ATTEND: Gissel Ortega MD CardiologyADM AUTHOR: Karlo Francis MD * ALL edits or amendments must be made on the electronic/computer document * SubjectiveChief complaint:Wound CareHPI:no acute eventsUnable to obtain: medical condition Objective GeneralVS:Last Documented: Result Date Time Pulse Ox 96 09/30 1228 B/P 134/73 09/30 1228 B/P Mean 93.5 09/30 1228 O2 Delivery Nasal cannula 09/30 1228 Temp 97.5 09/30 1228 Pulse 77 09/30 1228 Resp 15 09/30 1228 FiO2 32 09/30 0855 O2 Flow Rate 3 09/30 0855 PATIENT WEIGHT: Weight (lb): 99Weight (oz): 3.33Weight (kg): 44.906 Medications:Active Meds + DC'd Last 24 HrsPatient Own Medication (PATIENT'S OWN MEDICATION) REXULTI 1MG BEDTIME PO (PEND) Magnesium Sulfate (MAGNESIUM SULFATE 2 G IN SWFI 50 ML) 50 ML ONCE ONE IV (DC) Potassium Phosphate (POTASSIUM PHOSPHATE) 15 MMOL ONCE ONE IV (DC) Sodium Chloride (SODIUM CHLORIDE 0.9%) 250 MLMagnesium Oxide (MAG-OX 400) 400 MG Q8H PRN PRN PO Magnesium Sulfate (MAGNESIUM SULFATE 2 G IN SWFI 50 ML) 50 ML ASDIR PRN IV Magnesium Sulfate (MAGNESIUM SULFATE 2 G IN SWFI 50 ML) 50 ML Q2H PRN PRN IV Quetiapine Fumarate (SEROqueL) 12.5 MG BEDTIME PO (DC) Olanzapine (ZyPREXA) 2.5 MG DAILY PO (DC) Magnesium Oxide (MAG-OX 400) 400 MG Q8H PRN PRN PO Magnesium Sulfate (MAGNESIUM SULFATE 2 G IN SWFI 50 ML) 50 ML ASDIR PRN IV Magnesium Sulfate (MAGNESIUM SULFATE 2 G IN SWFI 50 ML) 50 ML Q2H PRN PRN IV Potassium Chloride (POTASSIUM CHLORIDE 10 MEQ/SWFI 50 ML) 50 ML ASDIR PRN IV Potassium Chloride (KCL 20 MEQ/SWFI 100 ML) 100 ML ASDIR PRN IV Potassium Chloride (KCL 20 MEQ/SWFI 100 ML) 100 ML ASDIR PRN IV Potassium Chloride (KCL 20 MEQ/SWFI 100 ML) 100 ML ASDIR PRN IV Potassium Chloride (K-DUR 20 mEq) 20 MEQ ASDIR PRN PO Potassium Chloride (K-DUR 20 mEq) 20 MEQ ASDIR PRN PO Midodrine (PROAMATINE) 5 MG TID PO Enoxaparin Sodium (lovENOX) 30 MG Q24H SUBQ Metronidazole/Sodium Chloride (metroNIDAZOLE 500MG / 100 MLNS) 100 ML Q8HR IV [...] Sodium Chloride (0.9% Sodium Chloride) 50 ML ONCE PRN IV Albuterol/Ipratropium (DUONEB) 3 ML RTQ6H PRN PRN NEB Iopamidol (ISOVUE-370) 100 ML ONCE PRN IV Atorvastatin Calcium (LIPITOR) 10 MG BEDTIME PO Sertraline HCl (ZOLOFT) 25 MG DAILY PO Acetaminophen (TYLENOL) 650 MG Q4H PRN PRN PO Ondansetron HCl (ZOFRAN ODT) 4 MG Q8H PRN PRN PO Sodium Chloride (SODIUM CHLORIDE) SALINE FLUSH ASDIR PRN IV Dietitian Nutrition assessmentThe data set between the solid lines has been imported from the dietitian's assessment. BMI Calculated: 19.3Nutrition related diagnosis: Severe malnutritionNutrition diagnosis details: Nutrition problem: Severe malnutritionNutrition etiology: Acute illness, Decreased/poor appetite, DiarrheaNutrition signs and symptoms: Moderate muscle loss, Moderate subcutaneous fat loss, 20% or more weight loss, Less than 25% intakeNutrition prescription: 1) Continue regular diet, honor food preferences 2) Will d/c Ensure Clear - pt reports they are too sweet 3) Continue Bannatrol 4) Encourage oral intake of food/supplementsDietitian name: Sandi Leal RD,LDAssessment completed: 09/30/22 Physical ExamGeneral appearance: chronically ill appearingRespiratory: no distressAbdomen: non-tenderExtremities: no edema Wound AssessmentWound Assessment 1: Type/cause: pressure Wound location: buttock, sacral region Tissue layers: limited to skin breakdown Site condition: no drainage, no ecchymosis, no erythema Stage of pressure ulcer: stage II Diagnosis, Assessment PlanProblem List/A P: 1. Decubitus ulcer of sacral [...] per RN shift. 4. C. difficile diarrhea at 1644 RPT #: [id number] OF REPORT PNProcedure [id number]:43:00L.[id number] able for patient yjjyMIRYKSNOYLXDZR7986-75-48J00:45:16 [facility] 2022-09-30 12:57:00 [id number] E06AhNMNieHJbglb4vT/lsdEVBn5983-25-86W05:57:00 [facility] ([facility])Infectious Dis. Progress NoteREPORT#:[id number] REPORT STATUS: SignedDATE:09/30/22 TIME:1257 PATIENT: LESLEY BREAUX UNIT #: [id number]#: [id number] [address] AGE: 87 SEX: F ATTEND: Gissel Ortega MD CardiologyADM AUTHOR: Curtis Sun MD * ALL edits or amendments must be made on the electronic/computer document * SubjectiveChief complaint:Recurrent C. diff.HPI:WBC remains normal. Pt is on fidamoxicin and IV metronidazole. Review of SystemsConstitutional:Denies: fever. Objective GeneralVS/I O:Vital Signs Date Temp Pulse Resp B/P B/P [...] O2 Flow FiO2 Mean Ox Delivery Rate 09/30 1228 [...] Urine 1000 2150 PATIENT WEIGHT: Weight (lb): 99Weight (oz): 3.33Weight (kg): 44.906 Physical ExamGeneral appearance: awakeHead/Eyes: atraumatic, clear cornea, EOMI, normal conjunctiva/sclera, normal eyelids/periorb, normocephalicNeck: full range of motion, non-tender, supple/no meningismusCardiovascular: regular rate rhythmRespiratory: symmetric expansion, no distressAbdomen: soft, no CVA tenderness, no distention, no guarding, no mass/organomegaly, no rebound, Less tendernessGenitourinary: no flank painExtremities: normal temperature, no cyanosisNeuro/BRIM WELT SEWING MACHINE OPERATOR: alert, normal speechSkin: normal turgor, no rash Diagnosis, Assessment PlanFree Text A P:Laboratory Tests 09/30/22 0421:[Embedded Image Not Available] 09/29/22 0425:[Embedded Image Not Available] Imaging:CXR reviewed 09/24CTAP reviewed 09/20 Assessment:1. Recurrent C. difficile colitis. Per family, pt responded better to fidaxomicin compared with vancomycin during previous episodes.2. SIRS (fever, leukocytosis) likely due to above.3. Left pleural effusion s/p chest tube removal.4. S/p pacemaker placement 09/18/22.5. Allergy to penicillin (hives) and sulfas (passed out). Plan:1. Fidaxomicin (day 7 of 10).2. IV metronidazole (day 5 of ) added as WBC increased while on fidaxomicin.3. Avoid systemic abxs if possible.4. Monitor CBC.5. Monitor kidney function. at 1259 RPT #: [id number] OF REPORT PRProgress [id number]:57:00L.[id number] able for patient jijsBSXAHJTLVMCQYS1843-54-06X68:59:25 [facility] 2022-09-30 10:09:00 [id number]+HxR SAhqEm4+PE0Hn0B0AKO1L0v6AHT8263-16-93D20:09:00 [facility] ([facility])Pulmonology Progress NoteREPORT#:[id number] REPORT STATUS: SignedDATE:09/30/22 TIME:1009 PATIENT: LESLEY BREAUX UNIT #: [id number]#: [id number] [address] AGE: 87 SEX: F ATTEND: Gissel Ortega MD CardiologyADM AUTHOR: Mauro Arce MD * ALL edits or amendments must be made on the electronic/computer document * SubjectiveChief complaint:mild abdominal painNo distress stable breathing on nasal cannulahemodynamically stableHPI:Pleasant 87-year-old lady who underwent pacemaker placement yesterday for tachybradycardia syndrome.She was having more shortness of breath and left-sided chest pain for which a CTangiogram of the chest was done, see full report.Images reviewed and discussed with patient and granddaughter.There is a small to moderate size left pleural effusion with different densitiessuggesting possible blood product. There are also chronic appearing reticular nodular, tree-in-bud type peripheral mostly lower zone infiltrates right more than left, no prior CT images to compare.The patient denies much in the way of chronic sputum fevers chills sweats or significant weight loss.The patient has emphysema has seen pulmonary doctors in the outpatient setting at [facility] but never smoked.Except described above, review of systems x14 is negative and normal. Review of Systems ROSSkin:Denies: itching, laceration. Allergy/Immun:Denies: anaphylaxis, hives. ENT:Denies: hearing loss, mouth pain. GI:Reports: abdominal pain, diarrhea. Denies: hematemesis, hematochezia. Neuro:Denies: numbness, seizure. Objective GeneralVS/I O:Last Documented: Result Date Time Pulse Ox 98 09/30 0855 FiO2 32 09/30 0855 O2 Delivery Nasal cannula 09/30 0855 O2 Flow Rate 3 09/30 0855 B/P 138/72 10/01 827 B/P Mean 93.9 10/01 827 Temp 37.3 09/30 08 Pulse 77 09/30 08 Resp 15 10/01 827 24 hour I O ending at 0700: 09/30 0700 09/29 1900 Intake Total 500 625.00 Output Total 1000 2150 Balance -500 -1525.00 Intake, IV 625.00 Intake, Oral 500 Output, Urine 1000 2150 PATIENT WEIGHT: Weight (lb): 99Weight (oz): 3.33Weight (kg): 44.906 Medications:Active Meds + DC'd Last 24 HrsMagnesium Sulfate (MAGNESIUM SULFATE 2 G IN SWFI 50 ML) 50 ML ONCE ONE IV Potassium Phosphate (POTASSIUM PHOSPHATE) 15 MMOL ONCE ONE IV Sodium Chloride (SODIUM CHLORIDE 0.9%) 250 MLMagnesium Oxide (MAG-OX 400) 400 MG Q8H PRN PRN PO Magnesium Sulfate (MAGNESIUM SULFATE 2 G IN SWFI 50 ML) 50 ML ASDIR PRN IV Magnesium Sulfate (MAGNESIUM SULFATE 2 G IN SWFI 50 ML) 50 ML Q2H PRN PRN IV Quetiapine Fumarate (SEROqueL) 12.5 MG BEDTIME PO Olanzapine (ZyPREXA) 2.5 MG DAILY PO Magnesium Oxide (MAG-OX 400) 400 MG Q8H PRN PRN PO Magnesium Sulfate (MAGNESIUM SULFATE 2 G IN SWFI 50 ML) 50 ML ASDIR PRN IV Magnesium Sulfate (MAGNESIUM SULFATE 2 G IN SWFI 50 ML) 50 ML Q2H PRN PRN IV Potassium Chloride (POTASSIUM CHLORIDE 10 MEQ/SWFI 50 ML) 50 ML ASDIR PRN IV Potassium Chloride (KCL 20 MEQ/SWFI 100 ML) 100 ML ASDIR PRN IV Potassium Chloride (KCL 20 MEQ/SWFI 100 ML) 100 ML ASDIR PRN IV Potassium Chloride (KCL 20 MEQ/SWFI 100 ML) 100 ML ASDIR PRN IV Potassium Chloride (K-DUR 20 mEq) 20 MEQ ASDIR PRN PO Potassium Chloride (K-DUR 20 mEq) 20 MEQ ASDIR PRN PO Midodrine (PROAMATINE) 5 MG TID PO Enoxaparin Sodium (lovENOX) 30 MG Q24H SUBQ Metronidazole/Sodium Chloride (metroNIDAZOLE 500MG / 100 MLNS) 100 ML Q8HR IV Nystatin (MYCOSTATIN 15 GM POWDER) 1 APPLIC Q12H TOPICAL Mupirocin (BACTROBAN NASAL-ADULT ICU/STEVE MRSA PATIENTS) 1 APPLIC 0900,1700 NASAL Ondansetron HCl (ZOFRAN) 4 MG Q6H PRN PRN IV Norepinephrine Bitartrate (Levophed 16 MG/250 ML NS) 250 ML ASDIR IV Lactated Ringer's (LACTATED RINGERS) 1,000 ML .Q8H IV (DC) Lactobacillus Acidophilus (BACID) 1 CAP BID PO Fidaxomicin (DIFICID) 200 MG Q12HR PO Furosemide (LASIX 20MG INJ) 20 MG Q12HR IV Sodium Chloride (SODIUM CHLORIDE) 10 ML ASDIR IV Zolpidem Tartrate (AMBIEN) 5 MG BEDTIME PRN PRN PO Acetylcysteine (MUCOMYST 20% 4 ML) 200 MG RTQ6H NEB Iopamidol (ISOVUE-300) 100 ML ONCE PRN IV Sodium Chloride (0.9% Sodium Chloride) 50 ML ONCE PRN IV Tramadol HCl (ULTRAM) 25 MG Q4H PRN PRN PO (DC) Albuterol/Ipratropium (DUONEB) 3 ML RTQ6H PRN PRN NEB Iopamidol (ISOVUE-370) 100 ML ONCE PRN IV Atorvastatin Calcium (LIPITOR) 10 MG BEDTIME PO Sertraline HCl (ZOLOFT) 25 MG DAILY PO Acetaminophen (TYLENOL) 650 MG Q4H PRN PRN PO Ondansetron HCl (ZOFRAN ODT) 4 MG Q8H PRN PRN PO Sodium Chloride (SODIUM CHLORIDE) SALINE FLUSH ASDIR PRN IV Physical ExamHead/eyes: atraumatic, normocephalic, normal conjunctiva/scleraENT: ENT: moist mucosal membranes, normal pharynxNeck: non-tender, supple/no meningismusCardiovascular: normal S1/S2, regular rate rhythmRespiratory/chest: decreased breath sounds, on oxygen, rales, bandage, slingAbdomen: soft, non-tenderExtremities: edema, no clubbing, no cyanosisMusculoskeletal: normal inspection, no muscle spasmNeuro/BRIM WELT SEWING MACHINE OPERATOR: alert, oriented X 3, no motor deficitsSkin: dry, intactLymphatics: neck normal, no lymphadenopathy ResultsFindings/Data:Laboratory Tests 09/30/22420:[Embedded Image Not Available]Laboratory Tests 09/30 420 Chemistry Sodium (134 - [...] 2.4 MG/DL) 1.3 L Laboratory Tests 09/30 0421 Hematology WBC (3.5 - 11.0 K/mm3) 7.2 [...] (Auto) (20.5 - 51.1 %) 13.7 L Erath % (Auto) (1.7 - 9.3 %) 7.3 Eos % (Auto) (0.0 - 6.0 %) 5.6 Baso % (Auto) (0.0 - 2.0 %) 0.4 Neut # (Auto) (1.8 - 7.6 K/mm3) 5.2 Lymph # (Auto) (0.6 - 3.2 K/mm3) 1.0 Erath # (Auto) (0.3 - 1.1 K/mm3) 0.5 Eos # (Auto) (0.0 - 0.4 K/mm3) 0.4 Baso # (Auto) (0.0 - 0.1 K/mm3) 0.0 Abs Immat Gran (auto) (0.00 - 0.03 x10 3/uL) 0.07 H Add Manual Diff (CRITERIA DIFF/SCN) NO Immature Gran % (0.0 - 5.0 %) 1.0 Nucleated RBC % (0.0 - 1.0 /100WBC%) 0.0 Diagnosis, Assessment PlanFree Text A P: 1.Status post pacemaker, tachybradycardia syndrome, history of atrial fibrillation2. Left hemothorax that was drained3. Recurrent C. difficile colitis 4. Emphysema5. Hypertension6. Lidocaine allergy cont midodrine TID Replace electrolytesShe was noted to have C. difficile colitis Antibiotics for C Diff ProbioticsIncentive spirometryLast chest x-ray stableTaper oxygenWound care for sacral wound at 1009 RPT #: [id number] OF REPORT PRProgress [id number]:09:00L.[id number] able for patient tgtdUJNDZKXKZHPPOF5821-30-08S98:10:06 [facility] 2022-09-30 10:03:00 [id number] l2a4+CO71O1/Y2VsPgbhHnFyBxQQl VTUb8ayLfwNEIhv83rBo06x3BD36233-14-94L00:03:00 [facility] Progress NoteREPORT#:[id number] REPORT STATUS: SignedDATE:09/30/22 TIME:1003 PATIENT: LESLEY BREAUX UNIT #: [id number]#: [id number] [address] AGE: 87 SEX: F ATTEND: Gissel Ortega MD CardiologyADM AUTHOR: Art Tavera MD * ALL edits or amendments must be made on the electronic/computer document * SubjectiveChief complaint:Sleeping comfortablyDenies any abdominal painContinues to have some diarrhea on and off Objective GeneralVS/I O:Vital Signs: Date Time Temp Pulse Resp B/P B/P Pulse O2 O2 Flow FiO2 Mean Ox Delivery Rate 09/30 0855 98 Nasal 3 32 cannula 09/30 0828 99.1 77 15 138/72 93.9 93 Room air 09/30 0540 97.6 79 16 147/60 89 98 Nasal 2 cannula 09/30 0043 97.7 82 16 147/70 95.4 95 09/29 Nasal 3 cannula 09/29 1609 97.7 83 [...] Urine 1000 2150 PATIENT WEIGHT: Weight (lb): 99Weight (oz): 3.33Weight (kg): 44.906 Medications:Active Meds + DC'd Last 24 HrsMagnesium Sulfate (MAGNESIUM SULFATE 2 G IN SWFI 50 ML) 50 ML ONCE ONE IV Potassium Phosphate (POTASSIUM PHOSPHATE) 15 MMOL ONCE ONE IV Sodium Chloride (SODIUM CHLORIDE 0.9%) 250 MLMagnesium Oxide (MAG-OX 400) 400 MG Q8H PRN PRN PO Magnesium Sulfate (MAGNESIUM SULFATE 2 G IN SWFI 50 ML) 50 ML ASDIR PRN IV Magnesium Sulfate (MAGNESIUM SULFATE 2 G IN SWFI 50 ML) 50 ML Q2H PRN PRN IV Quetiapine Fumarate (SEROqueL) 12.5 MG BEDTIME PO Olanzapine (ZyPREXA) 2.5 MG DAILY PO Magnesium Oxide (MAG-OX 400) 400 MG Q8H PRN PRN PO Magnesium Sulfate (MAGNESIUM SULFATE 2 G IN SWFI 50 ML) 50 ML ASDIR PRN IV Magnesium Sulfate (MAGNESIUM SULFATE 2 G IN SWFI 50 ML) 50 ML Q2H PRN PRN IV Potassium Chloride (POTASSIUM CHLORIDE 10 MEQ/SWFI 50 ML) 50 ML ASDIR PRN IV Potassium Chloride (KCL 20 MEQ/SWFI 100 ML) 100 ML ASDIR PRN IV Potassium Chloride (KCL 20 MEQ/SWFI 100 ML) 100 ML ASDIR PRN IV Potassium Chloride (KCL 20 MEQ/SWFI 100 ML) 100 ML ASDIR PRN IV Potassium Chloride (K-DUR 20 mEq) 20 MEQ ASDIR PRN PO Potassium Chloride (K-DUR 20 mEq) 20 MEQ ASDIR PRN PO Midodrine (PROAMATINE) 5 MG TID PO Enoxaparin Sodium (lovENOX) 30 MG Q24H SUBQ Metronidazole/Sodium Chloride (metroNIDAZOLE 500MG / 100 MLNS) 100 ML Q8HR IV Nystatin (MYCOSTATIN 15 GM POWDER) 1 APPLIC Q12H TOPICAL Mupirocin (BACTROBAN NASAL-ADULT ICU/STEVE MRSA PATIENTS) 1 APPLIC 0900,1700 NASAL Ondansetron HCl (ZOFRAN) 4 MG Q6H PRN PRN IV Norepinephrine Bitartrate (Levophed 16 MG/250 ML NS) 250 ML ASDIR IV Lactated Ringer's (LACTATED RINGERS) 1,000 ML .Q8H IV (DC) Lactobacillus Acidophilus (BACID) 1 CAP BID PO Fidaxomicin (DIFICID) 200 MG Q12HR PO Furosemide (LASIX 20MG INJ) 20 MG Q12HR IV Sodium Chloride (SODIUM CHLORIDE) 10 ML ASDIR IV Zolpidem Tartrate (AMBIEN) 5 MG BEDTIME PRN PRN PO Acetylcysteine (MUCOMYST 20% 4 ML) 200 MG RTQ6H NEB Iopamidol (ISOVUE-300) 100 ML ONCE PRN IV Sodium Chloride (0.9% Sodium Chloride) 50 ML ONCE PRN IV Tramadol HCl (ULTRAM) 25 MG Q4H PRN PRN PO (DC) Albuterol/Ipratropium (DUONEB) 3 ML RTQ6H PRN PRN NEB Iopamidol (ISOVUE-370) 100 ML ONCE PRN IV Atorvastatin Calcium (LIPITOR) 10 MG BEDTIME PO Sertraline HCl (ZOLOFT) 25 MG DAILY PO Acetaminophen (TYLENOL) 650 MG Q4H PRN PRN PO Ondansetron HCl (ZOFRAN ODT) 4 MG Q8H PRN PRN PO Sodium Chloride (SODIUM CHLORIDE) SALINE FLUSH ASDIR PRN IV Dietitian nutrition assessmentThe data set between the solid lines has been imported from the dietitian's assessment. BMI Calculated: 19.3Nutrition related diagnosis: Severe malnutritionNutrition diagnosis details: Nutrition problem: Severe malnutritionNutrition etiology: Acute illness, Decreased/poor appetite, DiarrheaNutrition signs and symptoms: Moderate muscle loss, Moderate subcutaneous fat loss, 20% or more weight loss, Less than 25% intakeNutrition prescription: 1) Continue full liquid diet, advance as tolerated 2) Changed Ensure HP to Ensure clear per pt request. 3) Banatrol for diarrhea 4) Encourage oral intake of food/supplementsDietitian name: Marcia Espinal, DIETAssessment completed: 09/27/22 Physical ExamGeneral appearance: sleeping comfortablyHead/Eyes: atraumatic, normocephalicENT: dry mucosal membraneNeck: supple/no meningismusCardiovascular: normal heart sounds, regular rate rhythmRespiratory: decreased breath sounds, on oxygen, symmetric expansion, no distress, PPM site c/d/i, no overlying edema, erythema or warmthAbdomen: non-tender, softGenitourinary: no bladder distentionExtremities: moves all, no edemaMusculoskeletal: no CVA tendernessNeuro/BRIM WELT SEWING MACHINE OPERATOR: alert, normal speechSkin: dryPsychiatry: normal affect, normal mood ResultsFindings/Data:Laboratory Tests 09/30/22420:[Embedded Image Not Available] 09/29/22 0426:[Embedded Image Not Available] 09/29/22 0425:[Embedded Image Not Available]Laboratory Tests 09/30 420 Chemistry Sodium (134 - [...] (Auto) (20.5 - 51.1 %) 13.7 L Erath % (Auto) (1.7 - 9.3 %) 7.3 Eos % (Auto) (0.0 - 6.0 %) 5.6 Baso % (Auto) (0.0 - 2.0 %) 0.4 Neut # (Auto) (1.8 - 7.6 K/mm3) 5.2 Lymph # (Auto) (0.6 - 3.2 K/mm3) 1.0 Erath # (Auto) (0.3 - 1.1 K/mm3) 0.5 Eos # (Auto) (0.0 - 0.4 K/mm3) 0.4 Baso # (Auto) (0.0 - 0.1 K/mm3) 0.0 Abs Immat Gran (auto) (0.00 - 0.03 x10 3/uL) 0.07 H Add Manual Diff (CRITERIA DIFF/SCN) NO Immature Gran % (0.0 - 5.0 %) 1.0 Nucleated RBC % (0.0 - 1.0 /100WBC%) 0.0 Diagnosis, Assessment Plan Free Text DxA P NotesFree text DxA P notes:87 y/o female with PMHx of HTN, HLD, COPD, paroxysmal Afib, sick sinus syndrome,tachybrady syndome admitted for: Paroxysmal Afib, sick sinus syndrome, tachybrady syndrome s/p PPM placements/p PPM placement by Cardiology Dr. Ortega 09/18/22Continue to monitor under continuous telemetryMonitor PPM insertion sitePain control with Tylenol/Tramadol PRNContinue home coregHold home Eliquis due to anemia with possible hemothorax Complex moderate left pleural effusion / hemothorax, s/p R sided Cx tube in place with 600c of bloody fluid removedAppreciate pulm medicine, pain controlStatus post removal of the chest tube Acute normocytic anemia, possibly due to acute blood loss with possible hemothoraxStatus post transfusionMonitor H H closely Hypotension with a history of hypertensionHold home coreg, losartanTransferred to ICUStarted on LevophedWe will try to wean down to MAP of 65Added on midodrine COPDNot in acute exacerbationDuoneb tx PRN C. difficile colitisStarted on fidaxomicinID consultedContinues to have diarrheaAdd on probiotics HyponatremiaElectrolytes monitor and replace accordingly Acute kidney injuryRenal parameters monitored DVT prophylaxis with SCDs, held home Eliquis due to anemia Full code Total critical care time used was 33 minutes Off LevophedNoted to have some bleeding in the rectal tubeHemoglobin monitored We will DC rectal tubePT OT evaluationMay need placementDiscussed with case managementDiscussed with ID and pulmonology Monitor closely under telemetryPatient has been psychosis , Possibly ICU relatedWe will give Seroquel at nightHemoglobin monitoredAnd is stableAwaiting placementDiscussed with case management at 1008 RPT #: [id number] OF REPORT PRProgress [id number]:03:00L.[id number] able for patient ucgiKUMFSMYDTNCBAE7766-25-11S57:09:26 [facility] 2022-09-29 22:39:00 [id number] qNKTvW+0ksWz9i6lPhQkWATLdu7KO 3yfxntrFJDfA9tciGPsxJS4rngg8026-63-42H84:39:00 [facility] ([facility])Wound Care Progress NoteREPORT#:[id number] REPORT STATUS: SignedDATE:09/29/22 TIME:2238 PATIENT: LESLEY BREAUX UNIT #: [id number]#: [id number] [address] AGE: 87 SEX: F ATTEND: Gissel Ortega MD CardiologyADM AUTHOR: Karlo Francis MD * ALL edits or amendments must be made on the electronic/computer document * SubjectiveChief complaint:Wound CareHPI:no acute eventsUnable to obtain: medical condition Objective GeneralVS:Last Documented: Result Date Time Pulse Ox 95 09/29 2010 O2 Delivery Nasal cannula 09/29 2010 O2 Flow Rate 3 09/29 2010 B/P 132/66 09/29 160 B/P Mean 87.8 09/29 1608 Temp 97.7 09/29 1609 Pulse 83 09/29 1609 Resp 16 09/29 1609 FiO2 30 09/28 1909 PATIENT WEIGHT: Weight (lb): 99Weight (oz): 3.33Weight (kg): 44.906 Medications:Active Meds + DC'd Last 24 HrsQuetiapine Fumarate (SEROqueL) 12.5 MG BEDTIME PO Olanzapine (ZyPREXA) 2.5 MG DAILY PO Magnesium Oxide (MAG-OX 400) 400 MG Q8H PRN PRN PO Magnesium Sulfate (MAGNESIUM SULFATE 2 G IN SWFI 50 ML) 50 ML ASDIR PRN IV Magnesium Sulfate (MAGNESIUM SULFATE 2 G IN SWFI 50 ML) 50 ML Q2H PRN PRN IV Potassium Chloride (POTASSIUM CHLORIDE 10 MEQ/SWFI 50 ML) 50 ML ASDIR PRN IV Potassium Chloride (KCL 20 MEQ/SWFI 100 ML) 100 ML ASDIR PRN IV Potassium Chloride (KCL 20 MEQ/SWFI 100 ML) 100 ML ASDIR PRN IV Potassium Chloride (KCL 20 MEQ/SWFI 100 ML) 100 ML ASDIR PRN IV Potassium Chloride (K-DUR 20 mEq) 20 MEQ ASDIR PRN PO Potassium Chloride (K-DUR 20 mEq) 20 MEQ ASDIR PRN PO Midodrine (PROAMATINE) 5 MG TID PO Enoxaparin Sodium (lovENOX) 30 MG Q24H SUBQ Metronidazole/Sodium Chloride (metroNIDAZOLE 500MG / 100 MLNS) 100 ML Q8HR IV Nystatin (MYCOSTATIN 15 GM POWDER) 1 APPLIC Q12H TOPICAL Mupirocin (BACTROBAN NASAL-ADULT ICU/STEVE MRSA PATIENTS) 1 APPLIC 0900,1700 NASAL Ondansetron HCl (ZOFRAN) 4 MG Q6H PRN PRN IV Norepinephrine Bitartrate (Levophed 16 MG/250 ML NS) 250 ML ASDIR IV Lactated Ringer's (LACTATED RINGERS) 1,000 ML .Q8H IV (DC) Lactobacillus Acidophilus (BACID) 1 CAP BID PO Fidaxomicin (DIFICID) 200 MG Q12HR PO Furosemide (LASIX 20MG INJ) 20 MG Q12HR IV Sodium Chloride (SODIUM CHLORIDE) 10 ML ASDIR IV Zolpidem Tartrate (AMBIEN) 5 MG BEDTIME PRN PRN PO Acetylcysteine (MUCOMYST 20% 4 ML) 200 MG RTQ6H NEB Iopamidol (ISOVUE-300) 100 ML ONCE PRN IV Sodium Chloride (0.9% Sodium Chloride) 50 ML ONCE PRN IV Tramadol HCl (ULTRAM) 25 MG Q4H PRN PRN PO (DC) Albuterol/Ipratropium (DUONEB) 3 ML RTQ6H PRN PRN NEB Iopamidol (ISOVUE-370) 100 ML ONCE PRN IV Atorvastatin Calcium (LIPITOR) 10 MG BEDTIME PO Sertraline HCl (ZOLOFT) 25 MG DAILY PO Acetaminophen (TYLENOL) 650 MG Q4H PRN PRN PO Ondansetron HCl (ZOFRAN ODT) 4 MG Q8H PRN PRN PO Sodium Chloride (SODIUM CHLORIDE) SALINE FLUSH ASDIR PRN IV Dietitian Nutrition assessmentThe data set between the solid lines has been imported from the dietitian's assessment. BMI Calculated: 19.3Nutrition related diagnosis: Severe malnutritionNutrition diagnosis details: Nutrition problem: Severe malnutritionNutrition etiology: Acute illness, Decreased/poor appetite, DiarrheaNutrition signs and symptoms: Moderate muscle loss, Moderate subcutaneous fat loss, 20% or more weight loss, Less than 25% intakeNutrition prescription: 1) Continue full liquid diet, advance as tolerated 2) Changed Ensure HP to Ensure clear per pt request. 3) Banatrol for diarrhea 4) Encourage oral intake of food/supplementsDietitian name: Marcia Espinal, DIETAssessment completed: 09/27/22 Physical ExamGeneral appearance: chronically ill appearingRespiratory: no distressAbdomen: non-tenderExtremities: no edema Wound AssessmentWound Assessment 1: Type/cause: pressure Wound location: buttock, sacral region Tissue layers: limited to skin breakdown Site condition: no drainage, no ecchymosis, no erythema Stage of pressure ulcer: stage II Diagnosis, Assessment PlanProblem List/A P: 1. Decubitus ulcer of sacral [...] per RN shift. 4. C. difficile diarrhea at 2241 [facility] #: [id number] OF REPORT PNProcedure [id number]:39:00L.[id number] able for patient hoqgKPODAVJACOHNJX5446-38-48L58:42:26 [facility] 2022-09-29 11:47:00 [id number] ZwJZcl/wIZrUJEHO1GpkjTo+n74aQ UGd3aDFrPMO/sJO4j/dQYdlcCpz0870-48-28L34:47:00 [facility] ([facility])Pulmonology Progress NoteREPORT#:[id number] REPORT STATUS: SignedDATE:09/29/22 TIME:1147 PATIENT: LESLEY BREAUX UNIT #: [id number]#: [id number] [address] AGE: 87 SEX: F ATTEND: Gissel Ortega MD CardiologyADM AUTHOR: Mauro Arce MD * ALL edits or amendments must be made on the electronic/computer document * SubjectiveChief complaint:mild abdominal painrectal tube hemodynamically stableHPI:Pleasant 87-year-old lady who underwent pacemaker placement yesterday for tachybradycardia syndrome.She was having more shortness of breath and left-sided chest pain for which a CTangiogram of the chest was done, see full report.Images reviewed and discussed with patient and granddaughter.There is a small to moderate size left pleural effusion with different densitiessuggesting possible blood product. There are also chronic appearing reticular nodular, tree-in-bud type peripheral mostly lower zone infiltrates right more than left, no prior CT images to compare.The patient denies much in the way of chronic sputum fevers chills sweats or significant weight loss.The patient has emphysema has seen pulmonary doctors in the outpatient setting at [facility] but never smoked.Except described above, review of systems x14 is negative and normal. Review of Systems ROSSkin:Denies: itching, laceration. Allergy/Immun:Denies: anaphylaxis, hives. ENT:Denies: hearing loss, mouth pain. GI:Reports: abdominal pain, diarrhea. Denies: hematemesis, hematochezia. Neuro:Denies: numbness, seizure. Objective GeneralVS/I O:Last Documented: Result Date Time O2 Delivery Nasal [...] Urine 800 1100 PATIENT WEIGHT: Weight (lb): 99Weight (oz): 3.33Weight (kg): 44.906 Medications:Active Meds + DC'd Last 24 HrsMagnesium Sulfate/Dextrose (MAGNESIUM SULFATE 1 G IN DEXTROSE 5% 100 ML) 100 ML ONCE ONE IV (CAN) Magnesium Oxide (MAG-OX 400) 400 MG Q8H PRN PRN PO Magnesium Sulfate (MAGNESIUM SULFATE 2 G IN SWFI 50 ML) 50 ML ASDIR PRN IV Magnesium Sulfate (MAGNESIUM SULFATE 2 G IN SWFI 50 ML) 50 ML Q2H PRN PRN IV Potassium Chloride (POTASSIUM CHLORIDE 10 MEQ/SWFI 50 ML) 50 ML ASDIR PRN IV Potassium Chloride (KCL 20 MEQ/SWFI 100 ML) 100 ML ASDIR PRN IV Potassium Chloride (KCL 20 MEQ/SWFI 100 ML) 100 ML ASDIR PRN IV Potassium Chloride (KCL 20 MEQ/SWFI 100 ML) 100 ML ASDIR PRN IV Potassium Chloride (K-DUR 20 mEq) 20 MEQ ASDIR PRN PO Potassium Chloride (K-DUR 20 mEq) 20 MEQ ASDIR PRN PO Midodrine (PROAMATINE) 5 MG TID PO Enoxaparin Sodium (lovENOX) 30 MG Q24H SUBQ Pantoprazole (PROTONIX) 40 MG DAILY PO (DC) Metronidazole/Sodium Chloride (metroNIDAZOLE 500MG / 100 MLNS) 100 ML Q8HR IV Nystatin (MYCOSTATIN 15 GM POWDER) 1 APPLIC Q12H TOPICAL Mupirocin (BACTROBAN NASAL-ADULT ICU/STEVE MRSA PATIENTS) 1 APPLIC 0900,1700 NASAL Ondansetron HCl (ZOFRAN) 4 MG Q6H PRN PRN IV Norepinephrine Bitartrate (Levophed 16 MG/250 ML NS) 250 ML ASDIR IV Lactated Ringer's (LACTATED RINGERS) 1,000 ML .Q8H IV Lactobacillus Acidophilus (BACID) 1 CAP BID PO Fidaxomicin (DIFICID) 200 MG Q12HR PO Furosemide (LASIX 20MG INJ) 20 MG Q12HR IV Sodium Chloride (SODIUM CHLORIDE) 10 ML ASDIR IV Zolpidem Tartrate (AMBIEN) 5 MG BEDTIME PRN PRN PO Acetylcysteine (MUCOMYST 20% 4 ML) 200 MG RTQ6H NEB Iopamidol (ISOVUE-300) 100 ML ONCE PRN IV Sodium Chloride (0.9% Sodium Chloride) 50 ML ONCE PRN IV Tramadol HCl (ULTRAM) 25 MG Q4H PRN PRN PO Albuterol/Ipratropium (DUONEB) 3 ML RTQ6H PRN PRN NEB Iopamidol (ISOVUE-370) 100 ML ONCE PRN IV Atorvastatin Calcium (LIPITOR) 10 MG BEDTIME PO Sertraline HCl (ZOLOFT) 25 MG DAILY PO Acetaminophen (TYLENOL) 650 MG Q4H PRN PRN PO Ondansetron HCl (ZOFRAN ODT) 4 MG Q8H PRN PRN PO Sodium Chloride (SODIUM CHLORIDE) SALINE FLUSH ASDIR PRN IV Physical ExamHead/eyes: atraumatic, normocephalic, normal conjunctiva/scleraENT: ENT: moist mucosal membranes, normal pharynxNeck: non-tender, supple/no meningismusCardiovascular: normal S1/S2, regular rate rhythmRespiratory/chest: decreased breath sounds, on oxygen, rales, bandage, slingAbdomen: soft, non-tenderExtremities: edema, no clubbing, no cyanosisMusculoskeletal: normal inspection, no muscle spasmNeuro/BRIM WELT SEWING MACHINE OPERATOR: alert, oriented X 3, no motor deficitsSkin: dry, intactLymphatics: neck normal, no lymphadenopathy ResultsFindings/Data:Laboratory Tests 09/29/22425:[Embedded Image Not Available] 09/29/22424:[Embedded Image Not Available]Laboratory Tests 09/29 425 Chemistry Sodium (134 - 147 mmol/L) 139 Potassium (3.4 - 5.0 mmol/L) 3.6 Chloride (100 - 108 mmol/L) 104 Carbon Dioxide (21 - 32 mmol/L) 29 Anion Gap (4.0 - 15.0 GAP calc) 6.0 BUN (7 - 18 MG/DL) 21 H Creatinine (0.6 - 1.0 MG/DL) 0.8 Glomerular Filtr Rate (>60 estGFR) >=60 max estimate Glucose (70 - 110 MG/DL) 93 Calcium [...] (Auto) (20.5 - 51.1 %) 11.6 L Erath % (Auto) (1.7 - 9.3 %) 6.9 Eos % (Auto) (0.0 - 6.0 %) 7.3 H Baso % (Auto) (0.0 - 2.0 %) 0.6 Neut # (Auto) (1.8 - 7.6 K/mm3) 5.1 Lymph # (Auto) (0.6 - 3.2 K/mm3) 0.8 Erath # (Auto) (0.3 - 1.1 K/mm3) 0.5 Eos # (Auto) (0.0 - 0.4 K/mm3) 0.5 H Baso # (Auto) (0.0 - 0.1 K/mm3) 0.0 Abs Immat Gran (auto) (0.00 - 0.03 x10 3/uL) 0.08 H Add Manual Diff (CRITERIA DIFF/SCN) NO Immature Gran % (0.0 - 5.0 %) 1.1 Nucleated RBC % (0.0 - 1.0 /100WBC%) 0.0 Diagnosis, Assessment PlanFree Text A P: 1.Status post pacemaker, tachybradycardia syndrome, history of atrial fibrillation2. Left hemothorax that was drained3. Recurrent C. difficile colitis 4. Emphysema5. Hypertension6. Lidocaine allergy cont midodrine TID PT OTShe was noted to have C. difficile colitis Antibiotics for C Diff ProbioticsWound care for sacral wound Incentive spirometerOxygen by nasal cannula at 1149 RPT #: [id number] OF REPORT PRProgress elyd3523-18-89Q64:47:00L.[id number] able for patient glqaGJRCCFISIKCNGF2764-40-83P97:50:16 [facility] 2022-09-29 10:22:00 [id number] ezcdRoA+Mjd7BqiUuWLfRmxhXBdd2 EpiupxqcuixuHPz0UZaZ9yMjnvn1494-76-93U30:22:00 [facility] ([facility])Infectious Dis. Progress NoteREPORT#:[id number] REPORT STATUS: SignedDATE:09/29/22 TIME:1022 PATIENT: LESLEY BREAUX UNIT #: [id number]#: [id number] [address] AGE: 87 SEX: F ATTEND: Gissel Ortega MD CardiologyADM AUTHOR: Curtis Sun MD * ALL edits or amendments must be made on the electronic/computer document * SubjectiveChief complaint:Recurrent C. diff.HPI:Leukocytosis resolved. Pt is on fidamoxicin and IV metronidazole. Diarrhea and abdominal pain resolving. Review of SystemsConstitutional:Denies: fever. Objective Physical ExamHead/Eyes: atraumatic, clear cornea, EOMI, normal conjunctiva/sclera, normal eyelids/periorb, normocephalicNeck: full range of motion, non-tender, supple/no meningismusCardiovascular: regular rate rhythmRespiratory: symmetric expansion, no distressAbdomen: normal bowel sounds, soft, no CVA tenderness, no distention, no guarding, no mass/organomegaly, no rebound, Less tendernessExtremities: normal temperature, no cyanosisNeuro/BRIM WELT SEWING MACHINE OPERATOR: alert, normal speechSkin: normal turgor, no rash Diagnosis, Assessment PlanFree Text A P:Laboratory Tests 09/28/22 0221:[Embedded Image Not Available] 09/28/22 0220:[Embedded Image Not Available] Imaging:CXR reviewed 09/24CTAP reviewed 09/20 Assessment:1. Recurrent C. difficile colitis. Per family, pt responded better to fidaxomicin compared with vancomycin during previous episodes.2. SIRS (fever, leukocytosis) likely due to above.3. Left pleural effusion s/p chest tube removal.4. S/p pacemaker placement 09/18/22.5. Allergy to penicillin (hives) and sulfas (passed out). Plan:1. Fidaxomicin (day 6 of 10).2. IV metronidazole (day 4) added as WBC increased while on fidaxomicin.3. Avoid systemic abxs if possible.4. Monitor CBC.5. Monitor kidney function. at 1316 [facility] #: [id number] OF REPORT PRProgress gstj1465-61-33F97:22:00L.[id number] able for patient bjnmXSQPGEZUIMXENM5808-01-05B02:17:04 [facility] 2022-09-29 10:19:00 [id number] q2SoZfObQFXEYeyPhWGxbpxpzwVil J/hi2Jj8yoLMXUElX1/qKY6H1oG4832-02-73Z43:19:00 [facility])Hospitalist Progress NoteREPORT#:[id number] REPORT STATUS: SignedDATE:09/29/22 TIME:1019 PATIENT: LESLEY BREAUX UNIT #: [id number]#: [id number] [facility] AGE: 87 SEX: F ATTEND: Gissel Ortega MD CardiologyADM AUTHOR: Art Tavera MD * ALL edits or amendments must be made on the electronic/computer document * SubjectiveChief complaint:Still has some blood in the rectal tubeDenies any abdominal painContinues to have some diarrhea on and off Objective GeneralVS/I O:Vital Signs: Date Time Temp Pulse Resp B/P B/P Pulse O2 O2 Flow FiO2 Mean Ox Delivery Rate 09/29 0755 [...] Urine 800 1100 PATIENT WEIGHT: Weight (lb): 99Weight (oz): 3.33Weight (kg): 44.906 Medications:Active Meds + DC'd Last 24 HrsMagnesium Sulfate/Dextrose (MAGNESIUM SULFATE 1 G IN DEXTROSE 5% 100 ML) 100 ML ONCE ONE IV (CAN) Magnesium Oxide (MAG-OX 400) 400 MG Q8H PRN PRN PO Magnesium Sulfate (MAGNESIUM SULFATE 2 G IN SWFI 50 ML) 50 ML ASDIR PRN IV Magnesium Sulfate (MAGNESIUM SULFATE 2 G IN SWFI 50 ML) 50 ML Q2H PRN PRN IV Potassium Chloride (POTASSIUM CHLORIDE 10 MEQ/SWFI 50 ML) 50 ML ASDIR PRN IV Potassium Chloride (KCL 20 MEQ/SWFI 100 ML) 100 ML ASDIR PRN IV Potassium Chloride (KCL 20 MEQ/SWFI 100 ML) 100 ML ASDIR PRN IV Potassium Chloride (KCL 20 MEQ/SWFI 100 ML) 100 ML ASDIR PRN IV Potassium Chloride (K-DUR 20 mEq) 20 MEQ ASDIR PRN PO Potassium Chloride (K-DUR 20 mEq) 20 MEQ ASDIR PRN PO Midodrine (PROAMATINE) 5 MG TID PO Enoxaparin Sodium (lovENOX) 30 MG Q24H SUBQ Pantoprazole (PROTONIX) 40 MG DAILY PO (DC) Metronidazole/Sodium Chloride (metroNIDAZOLE 500MG / 100 MLNS) 100 ML Q8HR IV Nystatin (MYCOSTATIN 15 GM POWDER) 1 APPLIC Q12H TOPICAL Mupirocin (BACTROBAN NASAL-ADULT ICU/STEVE MRSA PATIENTS) 1 APPLIC 0900,1700 NASAL Ondansetron HCl (ZOFRAN) 4 MG Q6H PRN PRN IV Norepinephrine Bitartrate (Levophed 16 MG/250 ML NS) 250 ML ASDIR IV Lactated Ringer's (LACTATED RINGERS) 1,000 ML .Q8H IV Lactobacillus Acidophilus (BACID) 1 CAP BID PO Fidaxomicin (DIFICID) 200 MG Q12HR PO Furosemide (LASIX 20MG INJ) 20 MG Q12HR IV Sodium Chloride (SODIUM CHLORIDE) 10 ML ASDIR IV Zolpidem Tartrate (AMBIEN) 5 MG BEDTIME PRN PRN PO Acetylcysteine (MUCOMYST 20% 4 ML) 200 MG RTQ6H NEB Iopamidol (ISOVUE-300) 100 ML ONCE PRN IV Sodium Chloride (0.9% Sodium Chloride) 50 ML ONCE PRN IV Tramadol HCl (ULTRAM) 25 MG Q4H PRN PRN PO Albuterol/Ipratropium (DUONEB) 3 ML RTQ6H PRN PRN NEB Iopamidol (ISOVUE-370) 100 ML ONCE PRN IV Atorvastatin Calcium (LIPITOR) 10 MG BEDTIME PO Sertraline HCl (ZOLOFT) 25 MG DAILY PO Acetaminophen (TYLENOL) 650 MG Q4H PRN PRN PO Ondansetron HCl (ZOFRAN ODT) 4 MG Q8H PRN PRN PO Sodium Chloride (SODIUM CHLORIDE) SALINE FLUSH ASDIR PRN IV Dietitian nutrition assessmentThe data set between the solid lines has been imported from the dietitian's assessment. BMI Calculated: 19.3Nutrition related diagnosis: Severe malnutritionNutrition diagnosis details: Nutrition problem: Severe malnutritionNutrition etiology: Acute illness, Decreased/poor appetite, DiarrheaNutrition signs and symptoms: Moderate muscle loss, Moderate subcutaneous fat loss, 20% or more weight loss, Less than 25% intakeNutrition prescription: 1) Continue full liquid diet, advance as tolerated 2) Changed Ensure HP to Ensure clear per pt request. 3) Banatrol for diarrhea 4) Encourage oral intake of food/supplementsDietitian name: Marcia Espinal, DIETAssessment completed: 09/27/22 Physical ExamGeneral appearance: alert, awakeHead/Eyes: atraumatic, normocephalicENT: dry mucosal membraneNeck: supple/no meningismusCardiovascular: normal heart sounds, regular rate rhythmRespiratory: decreased breath sounds, on oxygen, symmetric expansion, no distress, PPM site c/d/i, no overlying edema, erythema or warmthAbdomen: non-tender, softGenitourinary: no bladder distentionExtremities: moves all, no edemaMusculoskeletal: no CVA tendernessNeuro/BRIM WELT SEWING MACHINE OPERATOR: alert, normal speechSkin: dryPsychiatry: normal affect, normal mood ResultsFindings/Data:Laboratory Tests 09/29/22425:[Embedded Image Not Available] 09/29/22424:[Embedded Image Not Available] 09/28/22220:[Embedded Image Not Available] 09/28/22219:[Embedded Image Not Available]Laboratory Tests 09/29 425 Chemistry Sodium (134 - 147 mmol/L) 139 Potassium (3.4 - 5.0 mmol/L) 3.6 Chloride (100 - 108 mmol/L) 104 Carbon Dioxide (21 - 32 mmol/L) 29 Anion Gap (4.0 - 15.0 GAP calc) 6.0 BUN (7 - 18 MG/DL) 21 H Creatinine (0.6 - 1.0 MG/DL) 0.8 Glomerular Filtr Rate (>60 estGFR) >=60 max estimate Glucose (70 - 110 MG/DL) 93 Calcium [...] 2.2 RATIO) 0.7 L Laboratory Tests 09/29 424 Hematology WBC (3.5 - 11.0 K/mm3) 7.0 [...] (Auto) (20.5 - 51.1 %) 11.6 L Erath % (Auto) (1.7 - 9.3 %) 6.9 Eos % (Auto) (0.0 - 6.0 %) 7.3 H Baso % (Auto) (0.0 - 2.0 %) 0.6 Neut # (Auto) (1.8 - 7.6 K/mm3) 5.1 Lymph # (Auto) (0.6 - 3.2 K/mm3) 0.8 Erath # (Auto) (0.3 - 1.1 K/mm3) 0.5 Eos # (Auto) (0.0 - 0.4 K/mm3) 0.5 H Baso # (Auto) (0.0 - 0.1 K/mm3) 0.0 Abs Immat Gran (auto) (0.00 - 0.03 x10 3/uL) 0.08 H Add Manual Diff (CRITERIA DIFF/SCN) NO Immature Gran % (0.0 - 5.0 %) 1.1 Nucleated RBC % (0.0 - 1.0 /100WBC%) 0.0 Diagnosis, Assessment Plan Free Text DxA P NotesFree text DxA P notes:87 y/o female with PMHx of HTN, HLD, COPD, paroxysmal Afib, sick sinus syndrome,tachybrady syndome admitted for: Paroxysmal Afib, sick sinus syndrome, tachybrady syndrome s/p PPM placements/p PPM placement by Cardiology Dr. Ortega 09/18/22Continue to monitor under continuous telemetryMonitor PPM insertion sitePain control with Tylenol/Tramadol PRNContinue home coregHold home Eliquis due to anemia with possible hemothorax Complex moderate left pleural effusion / hemothorax, s/p R sided Cx tube in place with 600c of bloody fluid removedAppreciate pulm medicine, pain controlStatus post removal of the chest tube Acute normocytic anemia, possibly due to acute blood loss with possible hemothoraxStatus post transfusionMonitor H H closely Hypotension with a history of hypertensionHold home coreg, losartanTransferred to ICUStarted on LevophedWe will try to wean down to MAP of 65Added on midodrine COPDNot in acute exacerbationDuoneb tx PRN C. difficile colitisStarted on fidaxomicinID consultedContinues to have diarrheaAdd on probiotics HyponatremiaElectrolytes monitor and replace accordingly Acute kidney injuryRenal parameters monitored DVT prophylaxis with SCDs, held home Eliquis due to anemia Full code Total critical care time used was 33 minutes Off LevophedNoted to have some bleeding in the rectal tubeHemoglobin monitored We will DC rectal tubePT OT evaluationMay need placementDiscussed with case managementDiscussed with ID and pulmonology at 1101 RPT #: [id number] OF REPORT PRProgress ybmc3166-79-23U48:19:00L.ULKB50120067-3171MCPngsa able for patient onqmPIQZEIMDVUDZDH7349-82-60X75:02:05 [facility] 2022-09-28 19:19:00 [id number] fM+VcTaDmTSOCAr4yAiFRieur4sCq Wftfw2svUX5pInwmX6YfWXhm4Df0035-68-54D52:19:00 [facility] ([facility])Wound Care Progress NoteREPORT#:[id number] REPORT STATUS: SignedDATE:09/28/22 TIME:1918 PATIENT: LESLEY BREAUX UNIT #: [id number]#: [id number] [id number]: [address] AGE: 87 SEX: F ATTEND: Gissel Ortega MD CardiologyADM AUTHOR: Karlo Francis MD * ALL edits or amendments must be made on the electronic/computer document * SubjectiveChief complaint:Wound CareHPI:downgraded to medsurgPatient reports:Yes: able to communicate, feeling better, pain controlled. No: drainage from wound. Objective GeneralVS:Last Documented: Result Date Time Pulse Ox 97 09/28 1733 B/P 118/53 09/28 1733 B/P Mean 74.3 09/28 1733 O2 Delivery Room air 09/28 1733 Temp 97.5 09/28 1733 Pulse 74 09/28 1733 Resp 16 09/28 1733 FiO2 28 09/28 1341 O2 Flow Rate 2 09/28 1341 PATIENT WEIGHT: Weight (lb): 99Weight (oz): 3.33Weight (kg): 44.906 Medications:Active Meds + DC'd Last 24 HrsMagnesium Sulfate/Dextrose (MAGNESIUM SULFATE 1 G IN DEXTROSE 5% 100 ML) 100 ML ONCE ONE IV (CAN) Calcium Gluconate/Sodium Chloride (Calcium Gluconate 1GM/100ML) 100 ML ONCE ONE IV (DC) Magnesium Oxide (MAG-OX 400) 400 MG Q8H PRN PRN PO Magnesium Sulfate (MAGNESIUM SULFATE 2 G IN SWFI 50 ML) 50 ML ASDIR PRN IV Magnesium Sulfate (MAGNESIUM SULFATE 2 G IN SWFI 50 ML) 50 ML Q2H PRN PRN IV Potassium Chloride (POTASSIUM CHLORIDE 10 MEQ/SWFI 50 ML) 50 ML ASDIR PRN IV Potassium Chloride (KCL 20 MEQ/SWFI 100 ML) 100 ML ASDIR PRN IV Potassium Chloride (KCL 20 MEQ/SWFI 100 ML) 100 ML ASDIR PRN IV Potassium Chloride (KCL 20 MEQ/SWFI 100 ML) 100 ML ASDIR PRN IV Potassium Chloride (K-DUR 20 mEq) 20 MEQ ASDIR PRN PO Potassium Chloride (K-DUR 20 mEq) 20 MEQ ASDIR PRN PO Midodrine (PROAMATINE) 5 MG TID PO Enoxaparin Sodium (lovENOX) 30 MG Q24H SUBQ Pantoprazole (PROTONIX) 40 MG DAILY PO (DC) Metronidazole/Sodium Chloride (metroNIDAZOLE 500MG / 100 MLNS) 100 ML Q8HR IV Nystatin (MYCOSTATIN 15 GM POWDER) 1 APPLIC Q12H TOPICAL Mupirocin (BACTROBAN NASAL-ADULT ICU/STEVE MRSA PATIENTS) 1 APPLIC 0900,1700 NASAL Ondansetron HCl (ZOFRAN) 4 MG Q6H PRN PRN IV Norepinephrine Bitartrate (Levophed 16 MG/250 ML NS) 250 ML ASDIR IV Lactated Ringer's (LACTATED RINGERS) 1,000 ML .Q8H IV Lactobacillus Acidophilus (BACID) 1 CAP BID PO Fidaxomicin (DIFICID) 200 MG Q12HR PO Furosemide (LASIX 20MG INJ) 20 MG Q12HR IV Sodium Chloride (SODIUM CHLORIDE) 10 ML ASDIR IV Zolpidem Tartrate (AMBIEN) 5 MG BEDTIME PRN PRN PO Acetylcysteine (MUCOMYST 20% 4 ML) 200 MG RTQ6H NEB Iopamidol (ISOVUE-300) 100 ML ONCE PRN IV Sodium Chloride (0.9% Sodium Chloride) 50 ML ONCE PRN IV Tramadol HCl (ULTRAM) 25 MG Q4H PRN PRN PO Albuterol/Ipratropium (DUONEB) 3 ML RTQ6H PRN PRN NEB Iopamidol (ISOVUE-370) 100 ML ONCE PRN IV Atorvastatin Calcium (LIPITOR) 10 MG BEDTIME PO Sertraline HCl (ZOLOFT) 25 MG DAILY PO Acetaminophen (TYLENOL) 650 MG Q4H PRN PRN PO Ondansetron HCl (ZOFRAN ODT) 4 MG Q8H PRN PRN PO Sodium Chloride (SODIUM CHLORIDE) SALINE FLUSH ASDIR PRN IV Dietitian Nutrition assessmentThe data set between the solid lines has been imported from the dietitian's assessment. BMI Calculated: 19.3Nutrition related diagnosis: Severe malnutritionNutrition diagnosis details: Nutrition problem: Severe malnutritionNutrition etiology: Acute illness, Decreased/poor appetite, DiarrheaNutrition signs and symptoms: Moderate muscle loss, Moderate subcutaneous fat loss, 20% or more weight loss, Less than 25% intakeNutrition prescription: 1) Continue full liquid diet, advance as tolerated 2) Changed Ensure HP to Ensure clear per pt request. 3) Banatrol for diarrhea 4) Encourage oral intake of food/supplementsDietitian name: Marcia Espinal, DIETAssessment completed: 09/27/22 Physical ExamGeneral appearance: chronically ill appearingRespiratory: no distressAbdomen: non-tenderExtremities: no edema Wound AssessmentWound Assessment 1: Type/cause: pressure Wound location: buttock, sacral region Tissue layers: limited to skin breakdown Site condition: no drainage, no ecchymosis, no erythema Stage of pressure ulcer: stage II Diagnosis, Assessment PlanProblem List/A P: 1. Decubitus ulcer of sacral [...] per RN shift. 4. C. difficile diarrhea at 1929 RPT #: [id number] OF REPORT PNProcedure rlwf3468-62-81T87:19:00L.[id number] able for patient qflyFVBBNYPIBKBGFG0618-69-15T37:29:46 [facility] 2022-09-28 11:35:00 [id number] FhLkkrBSmGb2V8YV9gr1WHdFpcrEr gy7xDvTQHdxXMcMKpZTF6ByG7Wx4464-08-60C62:35:00 [facility] ([facility])Infectious Dis. Progress NoteREPORT#:[id number] REPORT STATUS: SignedDATE:09/28/22 TIME:1135 PATIENT: LESLEY BREAUX UNIT #: [id number]#: [id number] ROOM/BED: [id number]: 36 AGE: 87 SEX: F ATTEND: Gissel Ortega MD CardiologyADM AUTHOR: Curtis Sun MD * ALL edits or amendments must be made on the electronic/computer document * SubjectiveChief complaint:Recurrent C. diff.HPI:Leukocytosis resolved. Pt is on fidamoxicin and IV metronidazole. Diarreha and abdominal pain resolving. Review of SystemsConstitutional:Denies: fever. Objective GeneralVS/I O:Vital Signs Date Temp Pulse Resp B/P B/P Mean Pulse Ox FiO2 09/27-09/28 36.3-36.6 60-82 9-21 87-139/35-64 61-92 94-100 28 Last Documented: Result Date Time Pulse Ox 97 09/28 0916 B/P 106/51 09/28 0916 B/P Mean 74 09/28 0916 Pulse 76 09/28 0916 Resp 19 09/28 0916 O2 Delivery Nasal cannula 09/28 0827 O2 Flow Rate 2 09/28 0827 Temp 36.6 09/28 0745 FiO2 28 09/28 0648 Vital Signs: Date Time Temp Pulse Resp B/P B/P Pulse O2 O2 Flow FiO2 Mean Ox Delivery Rate 09/28 0916 76 19 106/51 74 97 09/28 0900 82 17 113/56 81 97 09/28 0845 73 17 112/54 78 98 09/28 0830 76 14 112/54 78 96 / 0827 Nasal 2 cannula 09/28 0815 73 13 115/52 79 96 09/28 0800 77 14 121/58 84 95 09/28 0745 36.6 79 14 125/63 87 94 09/28 0730 77 15 112/56 81 96 09/28 0715 76 15 112/53 76 97 / 0700 73 16 116/57 82 99 09/28 0648 96 Nasal 2 28 cannula 09/28 0645 74 14 108/54 78 98 09/28 0630 76 13 103/49 71 96 09/28 0615 74 14 98/47 68 96 08/ 0600 74 14 103/51 73 98 08/ 0545 75 13 101/50 72 98 09/28 0530 78 13 104/51 73 97 08/22 [...] 16 108/54 72 97 Nasal 2 cannula /22 0000 72 12 108/54 78 97 08/21 [...] 08/21 2000 98 Nasal 2 28 cannula 09/28 1999 36.3 61 15 107/53 71 99 Nasal 2 cannula 09/28 1999 60 17 107/53 76 98 08/21 1945 62 12 110/55 79 98 08/21 1930 62 15 118/56 80 99 08/21 1915 Nasal 2 cannula 09/27 1915 61 14 111/51 74 100 08/21 [...] I O ending at 0700: 09/28 0700 08/ 1900 Intake Total 2108.70 2768.83 Output Total 1050 1010 Balance 1058.70 1758.83 Intake, IV 1928.70 1738.83 Intake, Oral 180 930 Intake, Oral 100 Supplement Output, Stool 100 120 Output, Urine 950 890 Patient 44.906 kg Weight PATIENT WEIGHT: Weight (lb): 99Weight (oz): 3.33Weight (kg): 44.906 Physical ExamGeneral appearance: alert, awakeHead/Eyes: atraumatic, clear cornea, EOMI, normal conjunctiva/sclera, normal eyelids/periorb, normocephalicNeck: full range of motion, non-tender, supple/no meningismusCardiovascular: regular rate rhythmRespiratory: symmetric expansion, no distressAbdomen: normal bowel sounds, soft, no CVA tenderness, no distention, no guarding, no mass/organomegaly, no rebound, Less tendernessExtremities: normal temperature, no cyanosisNeuro/BRIM WELT SEWING MACHINE OPERATOR: alert, normal speechSkin: normal turgor, no rash Diagnosis, Assessment PlanFree Text A P:Laboratory Tests 09/28/22 0221:[Embedded Image Not Available] 09/28/22 0220:[Embedded Image Not Available] Imaging:CXR reviewed 09/24CTAP reviewed 09/20 Assessment:1. Recurrent C. difficile colitis. Per family, pt responded better to fidaxomicin compared with vancomycin during previous episodes.2. SIRS (fever, leukocytosis) likely due to above.3. Left pleural effusion s/p chest tube removal.4. S/p pacemaker placement 09/18/22.5. Allergy to penicillin (hives) and sulfas (passed out). Plan:1. Fidaxomicin (day 5 of 10).2. IV metronidazole (day 3) as WBC increased while on fidaxomicin.3. Avoid systemic abxs if possible.4. Monitor CBC.5. Monitor kidney function.6. Case discussed with hospitalist. at 1319 [facility] #: [id number] OF REPORT PRProgress tpsb0505-64-49G79:35:00L.[id number] able for patient swnoUBQNILJUMWVCVG9373-99-58R19:20:13 [facility] 2022-09-28 11:19:00 [id number] ha1Jq4BjN2A0Ed2xjq7uB12MH18xQ krjjyXuuQ0oIAe/T3BeLZmaMpNk9813-58-26Z03:19:00 [facility] Progress NoteREPORT#:[id number] REPORT STATUS: SignedDATE:09/28/22 TIME:1119 PATIENT: LESLEY BREAUX UNIT #: [id number]#: [id number] [address] AGE: 87 SEX: F ATTEND: Gissel Ortega MD CardiologyADM AUTHOR: Art Tavera MD * ALL edits or amendments must be made on the electronic/computer document * SubjectiveChief complaint:Had some blood in the rectal tubeDenies any abdominal painContinues to have some diarrhea on and offOff Levophed Objective GeneralVS/I O:Vital Signs: Date Time Temp Pulse Resp B/P B/P Pulse O2 O2 Flow FiO2 Mean Ox Delivery Rate 09/28 1948 [...] 09/28 1015 74 18 113/56 80 98 08/22 1000 84 18 125/58 84 98 08/22 0945 94 23 129/60 87 88 08/22 0938 82 24 124/58 84 93 08/22 0930 76 13 119/56 81 99 08/22 0916 76 19 106/51 74 97 08/22 [...] 08/22 0030 75 12 104/54 76 97 09/28 0015 77 12 103/51 74 97 09/28 0000 97.5 72 16 108/54 72 97 Nasal 2 cannula 09/28 0000 72 12 108/54 78 97 09/27 2345 75 12 102/51 74 96 09/27 [...] 99 lb Weight PATIENT WEIGHT: Weight (lb): 99Weight (oz): 3.33Weight (kg): 44.906 Medications:Active Meds + DC'd Last 24 HrsMagnesium Sulfate/Dextrose (MAGNESIUM SULFATE 1 G IN DEXTROSE 5% 100 ML) 100 ML ONCE ONE IV (CAN) Calcium Gluconate/Sodium Chloride (Calcium Gluconate 1GM/100ML) 100 ML ONCE ONE IV (DC) Magnesium Oxide (MAG-OX 400) 400 MG Q8H PRN PRN PO Magnesium Sulfate (MAGNESIUM SULFATE 2 G IN SWFI 50 ML) 50 ML ASDIR PRN IV Magnesium Sulfate (MAGNESIUM SULFATE 2 G IN SWFI 50 ML) 50 ML Q2H PRN PRN IV Potassium Chloride (POTASSIUM CHLORIDE 10 MEQ/SWFI 50 ML) 50 ML ASDIR PRN IV Potassium Chloride (KCL 20 MEQ/SWFI 100 ML) 100 ML ASDIR PRN IV Potassium Chloride (KCL 20 MEQ/SWFI 100 ML) 100 ML ASDIR PRN IV Potassium Chloride (KCL 20 MEQ/SWFI 100 ML) 100 ML ASDIR PRN IV Potassium Chloride (K-DUR 20 mEq) 20 MEQ ASDIR PRN PO Potassium Chloride (K-DUR 20 mEq) 20 MEQ ASDIR PRN PO Midodrine (PROAMATINE) 5 MG TID PO Enoxaparin Sodium (lovENOX) 30 MG Q24H SUBQ Pantoprazole (PROTONIX) 40 MG DAILY PO (DC) Metronidazole/Sodium Chloride (metroNIDAZOLE 500MG / 100 MLNS) 100 ML Q8HR IV Nystatin (MYCOSTATIN 15 GM POWDER) 1 APPLIC Q12H TOPICAL Mupirocin (BACTROBAN NASAL-ADULT ICU/STEVE MRSA PATIENTS) 1 APPLIC 0900,1700 NASAL Ondansetron HCl (ZOFRAN) 4 MG Q6H PRN PRN IV Norepinephrine Bitartrate (Levophed 16 MG/250 ML NS) 250 ML ASDIR IV Lactated Ringer's (LACTATED RINGERS) 1,000 ML .Q8H IV Lactobacillus Acidophilus (BACID) 1 CAP BID PO Fidaxomicin (DIFICID) 200 MG Q12HR PO Furosemide (LASIX 20MG INJ) 20 MG Q12HR IV Sodium Chloride (SODIUM CHLORIDE) 10 ML ASDIR IV Zolpidem Tartrate (AMBIEN) 5 MG BEDTIME PRN PRN PO Acetylcysteine (MUCOMYST 20% 4 ML) 200 MG RTQ6H NEB Iopamidol (ISOVUE-300) 100 ML ONCE PRN IV Sodium Chloride (0.9% Sodium Chloride) 50 ML ONCE PRN IV Tramadol HCl (ULTRAM) 25 MG Q4H PRN PRN PO Albuterol/Ipratropium (DUONEB) 3 ML RTQ6H PRN PRN NEB Iopamidol (ISOVUE-370) 100 ML ONCE PRN IV Atorvastatin Calcium (LIPITOR) 10 MG BEDTIME PO Sertraline HCl (ZOLOFT) 25 MG DAILY PO Acetaminophen (TYLENOL) 650 MG Q4H PRN PRN PO Ondansetron HCl (ZOFRAN ODT) 4 MG Q8H PRN PRN PO Sodium Chloride (SODIUM CHLORIDE) SALINE FLUSH ASDIR PRN IV Dietitian nutrition assessmentThe data set between the solid lines has been imported from the dietitian's assessment. BMI Calculated: 19.3Nutrition related diagnosis: Severe malnutritionNutrition diagnosis details: Nutrition problem: Severe malnutritionNutrition etiology: Acute illness, Decreased/poor appetite, DiarrheaNutrition signs and symptoms: Moderate muscle loss, Moderate subcutaneous fat loss, 20% or more weight loss, Less than 25% intakeNutrition prescription: 1) Continue full liquid diet, advance as tolerated 2) Changed Ensure HP to Ensure clear per pt request. 3) Banatrol for diarrhea 4) Encourage oral intake of food/supplementsDietitian name: Marcia Espinal, DIETAssessment completed: 09/27/22 Physical ExamGeneral appearance: alert, awakeHead/Eyes: atraumatic, normocephalicENT: dry mucosal membraneNeck: supple/no meningismusCardiovascular: normal heart sounds, regular rate rhythmRespiratory: decreased breath sounds, on oxygen, symmetric expansion, no distress, PPM site c/d/i, no overlying edema, erythema or warmthAbdomen: non-tender, softGenitourinary: no bladder distentionExtremities: moves all, no edemaMusculoskeletal: no CVA tendernessNeuro/BRIM WELT SEWING MACHINE OPERATOR: alert, normal speechSkin: dryPsychiatry: normal affect, normal mood ResultsFindings/Data:Laboratory Tests 09/28/22 0221:[Embedded Image Not Available] 09/28/22 022:[Embedded Image Not Available] 09/27/22 0211:[Embedded Image Not Available]Laboratory Tests 09/29 219 Chemistry Sodium (134 - 147 mmol/L) 136 Potassium (3.4 - 5.0 mmol/L) 3.8 Chloride (100 - 108 mmol/L) 103 Carbon Dioxide (21 - 32 mmol/L) 31 Anion Gap (4.0 - 15.0 GAP calc) 2.0 L BUN (7 - 18 MG/DL) 30 H Creatinine (0.6 - 1.0 MG/DL) 0.7 Glomerular Filtr Rate (>60 estGFR) >=60 max estimate Glucose (70 - 110 MG/DL) 89 Calcium [...] (Auto) (20.5 - 51.1 %) 9.0 L Erath % (Auto) (1.7 - 9.3 %) 7.6 Eos % (Auto) (0.0 - 6.0 %) 7.2 H Baso % (Auto) (0.0 - 2.0 %) 0.6 Neut # (Auto) (1.8 - 7.6 K/mm3) 6.5 Lymph # (Auto) (0.6 - 3.2 K/mm3) 0.8 Erath # (Auto) (0.3 - 1.1 K/mm3) 0.7 Eos # (Auto) (0.0 - 0.4 K/mm3) 0.6 H Baso # (Auto) (0.0 - 0.1 K/mm3) 0.1 Abs Immat Gran (auto) (0.00 - 0.03 x10 3/uL) 0.08 H Add Manual Diff (CRITERIA DIFF/SCN) NO Immature Gran % (0.0 - 5.0 %) 0.9 Nucleated RBC % (0.0 - 1.0 /100WBC%) 0.0 Diagnosis, Assessment Plan Free Text DxA P NotesFree text DxA P notes:87 y/o female with PMHx of HTN, HLD, COPD, paroxysmal Afib, sick sinus syndrome,tachybrady syndome admitted for: Paroxysmal Afib, sick sinus syndrome, tachybrady syndrome s/p PPM placements/p PPM placement by Cardiology Dr. Ortega 09/18/22Continue to monitor under continuous telemetryMonitor PPM insertion sitePain control with Tylenol/Tramadol PRNContinue home coregHold home Eliquis due to anemia with possible hemothorax Complex moderate left pleural effusion / hemothorax, s/p R sided Cx tube in place with 600c of bloody fluid removedAppreciate pulm medicine, pain controlStatus post removal of the chest tube Acute normocytic anemia, possibly due to acute blood loss with possible hemothoraxStatus post transfusionMonitor H H closely Hypotension with a history of hypertensionHold home coreg, losartanTransferred to ICUStarted on LevophedWe will try to wean down to MAP of 65Added on midodrine COPDNot in acute exacerbationDuoneb tx PRN C. difficile colitisStarted on fidaxomicinID consultedContinues to have diarrheaAdd on probiotics HyponatremiaElectrolytes monitor and replace accordingly Acute kidney injuryRenal parameters monitored DVT prophylaxis with SCDs, held home Eliquis due to anemia Full code Total critical care time used was 33 minutes Off LevophedNoted to have some bleeding in the rectal tubeHemoglobin stable at 9.2We will DC rectal tubeX-ray findings notedWe will downgrade to telemetryPT OT evaluationMay need placementDiscussed with case managementDiscussed with ID and pulmonology at [address] [facility] #: [id number] OF REPORT PRProgress [id number]:19:00L.[id number] able for patient llfyHLFXCDZTUGIHYO0117-85-73J91:48:20 [facility] 2022-09-28 09:12:00 [id number] sXfmlpCUGEGloSCzQiclAaMLd1p9i 9y4M8ZZjBRVUOJkZmpc8heeojWZ0371-72-94N98:12:00 [facility])Pulmonology Progress NoteREPORT#:[id number] REPORT STATUS: SignedDATE:09/28/22 TIME:09 PATIENT: LESLEY BREAUX UNIT #: [id number]#: [id number] ROOM/BED: L.YDN79-1SKV: 36 AGE: 87 SEX: F ATTEND: Gissel Ortega MD CardiologyADM AUTHOR: Mauro Arce MD * ALL edits or amendments must be made on the electronic/computer document * SubjectiveChief complaint:LESS abdominal pain and diarrheaoff pressors stioll hemodynamically stableHPI:Pleasant 87-year-old lady who underwent pacemaker placement yesterday for tachybradycardia syndrome.She was having more shortness of breath and left-sided chest pain for which a CTangiogram of the chest was done, see full report.Images reviewed and discussed with patient and granddaughter.There is a small to moderate size left pleural effusion with different densitiessuggesting possible blood product. There are also chronic appearing reticular nodular, tree-in-bud type peripheral mostly lower zone infiltrates right more than left, no prior CT images to compare.The patient denies much in the way of chronic sputum fevers chills sweats or significant weight loss.The patient has emphysema has seen pulmonary doctors in the outpatient setting at [facility] but never smoked.Except described above, review of systems x14 is negative and normal. Review of Systems ROSAllergy/Immun:Denies: anaphylaxis, hives. ENT:Denies: hearing loss, mouth pain. GI:Reports: abdominal pain, diarrhea. Denies: hematemesis, hematochezia. Neuro:Denies: numbness, seizure. Objective GeneralVS/I O:Last Documented: Result Date Time O2 Delivery Nasal cannula 09/28 826 O2 Flow Rate 2 09/28 826 Pulse Ox 94 09/28 0645 B/P 125/63 09/28 744 B/P Mean 87 09/28 744 Temp 36.6 09/28 744 Pulse 79 09/28 0745 Resp 14 09/28 0745 FiO2 28 09/28 0648 24 hour I O ending at 0700: 09/28 0700 09/27 1900 Intake Total 2108.70 2768.83 Output Total 1050 1010 Balance 1058.70 1758.83 Intake, IV 1928.70 1738.83 Intake, Oral 180 930 Intake, Oral 100 Supplement Output, Stool 100 120 Output, Urine 950 890 Patient 44.906 kg Weight PATIENT WEIGHT: Weight (lb): 99Weight (oz): 3.33Weight (kg): 44.906 Medications:Active Meds + DC'd Last 24 HrsCalcium Gluconate/Sodium Chloride (Calcium Gluconate 1GM/100ML) 100 ML ONCE ONE IV (DC) Magnesium Oxide (MAG-OX 400) 400 MG Q8H PRN PRN PO Magnesium Sulfate (MAGNESIUM SULFATE 2 G IN SWFI 50 ML) 50 ML ASDIR PRN IV Magnesium Sulfate (MAGNESIUM SULFATE 2 G IN SWFI 50 ML) 50 ML Q2H PRN PRN IV Potassium Chloride (POTASSIUM CHLORIDE 10 MEQ/SWFI 50 ML) 50 ML ASDIR PRN IV Potassium Chloride (KCL 20 MEQ/SWFI 100 ML) 100 ML ASDIR PRN IV Potassium Chloride (KCL 20 MEQ/SWFI 100 ML) 100 ML ASDIR PRN IV Potassium Chloride (KCL 20 MEQ/SWFI 100 ML) 100 ML ASDIR PRN IV Potassium Chloride (K-DUR 20 mEq) 20 MEQ ASDIR PRN PO Potassium Chloride (K-DUR 20 mEq) 20 MEQ ASDIR PRN PO Metronidazole (FLAGYL) 500 MG Q8HR PO (CAN) Midodrine (PROAMATINE) 5 MG TID PO Enoxaparin Sodium (lovENOX) 30 MG Q24H SUBQ Pantoprazole (PROTONIX) 40 MG DAILY PO Undefined Medication (POTASSIUM PHOS 15 MMOL/ NS 250ML) 250 ML ONCE ONE IV (DC) Metronidazole/Sodium Chloride (metroNIDAZOLE 500MG / 100 MLNS) 100 ML Q8HR IV Nystatin (MYCOSTATIN 15 GM POWDER) 1 APPLIC Q12H TOPICAL Mupirocin (BACTROBAN NASAL-ADULT ICU/STEVE MRSA PATIENTS) 1 APPLIC 0900,1700 NASAL Ondansetron HCl (ZOFRAN) 4 MG Q6H PRN PRN IV Norepinephrine Bitartrate (Levophed 16 MG/250 ML NS) 250 ML ASDIR IV Lactated Ringer's (LACTATED RINGERS) 1,000 ML .Q8H IV Lactobacillus Acidophilus (BACID) 1 CAP BID PO Fidaxomicin (DIFICID) 200 MG Q12HR PO Furosemide (LASIX 20MG INJ) 20 MG Q12HR IV Sodium Chloride (SODIUM CHLORIDE) 10 ML ASDIR IV Zolpidem Tartrate (AMBIEN) 5 MG BEDTIME PRN PRN PO Acetylcysteine (MUCOMYST 20% 4 ML) 200 MG RTQ6H NEB Iopamidol (ISOVUE-300) 100 ML ONCE PRN IV Sodium Chloride (0.9% Sodium Chloride) 50 ML ONCE PRN IV Tramadol HCl (ULTRAM) 25 MG Q4H PRN PRN PO Albuterol/Ipratropium (DUONEB) 3 ML RTQ6H PRN PRN NEB Iopamidol (ISOVUE-370) 100 ML ONCE PRN IV Atorvastatin Calcium (LIPITOR) 10 MG BEDTIME PO Sertraline HCl (ZOLOFT) 25 MG DAILY PO Acetaminophen (TYLENOL) 650 MG Q4H PRN PRN PO Ondansetron HCl (ZOFRAN ODT) 4 MG Q8H PRN PRN PO Sodium Chloride (SODIUM CHLORIDE) SALINE FLUSH ASDIR PRN IV Dietitian nutrition assessmentThe data set between the solid lines has been imported from the dietitian's assessment. BMI Calculated: 19.3Nutrition related diagnosis: Severe malnutritionNutrition diagnosis details: Nutrition problem: Severe malnutritionNutrition etiology: Acute illness, Decreased/poor appetite, DiarrheaNutrition signs and symptoms: Moderate muscle loss, Moderate subcutaneous fat loss, 20% or more weight loss, Less than 25% intakeNutrition prescription: 1) Continue full liquid diet, advance as tolerated 2) Changed Ensure HP to Ensure clear per pt request. 3) Banatrol for diarrhea 4) Encourage oral intake of food/supplementsDietitian name: Marcia Espinal, DIETAssessment completed: 09/27/22 Physical ExamHead/eyes: atraumatic, normocephalic, normal conjunctiva/scleraENT: ENT: moist mucosal membranes, normal pharynxNeck: non-tender, supple/no meningismusCardiovascular: normal S1/S2, regular rate rhythmRespiratory/chest: decreased breath sounds, on oxygen, rales, bandage, slingAbdomen: soft, non-tenderExtremities: edema, no clubbing, no cyanosisMusculoskeletal: normal inspection, no muscle spasmNeuro/BRIM WELT SEWING MACHINE OPERATOR: alert, oriented X 3, no motor deficitsSkin: dry, intactLymphatics: neck normal, no lymphadenopathy ResultsFindings/Data:Laboratory Tests 09/28/22220:[Embedded Image Not Available] 09/28/22219:[Embedded Image Not Available]Laboratory Tests 09/29 219 Chemistry Sodium (134 - 147 mmol/L) 136 Potassium (3.4 - 5.0 mmol/L) 3.8 Chloride (100 - 108 mmol/L) 103 Carbon Dioxide (21 - 32 mmol/L) 31 Anion Gap (4.0 - 15.0 GAP calc) 2.0 L BUN (7 - 18 MG/DL) 30 H Creatinine (0.6 - 1.0 MG/DL) 0.7 Glomerular Filtr Rate (>60 estGFR) >=60 max estimate Glucose (70 - 110 MG/DL) 89 Calcium [...] (Auto) (20.5 - 51.1 %) 9.0 L Erath % (Auto) (1.7 - 9.3 %) 7.6 Eos % (Auto) (0.0 - 6.0 %) 7.2 H Baso % (Auto) (0.0 - 2.0 %) 0.6 Neut # (Auto) (1.8 - 7.6 K/mm3) 6.5 Lymph # (Auto) (0.6 - 3.2 K/mm3) 0.8 Erath # (Auto) (0.3 - 1.1 K/mm3) 0.7 Eos # (Auto) (0.0 - 0.4 K/mm3) 0.6 H Baso # (Auto) (0.0 - 0.1 K/mm3) 0.1 Abs Immat Gran (auto) (0.00 - 0.03 x10 3/uL) 0.08 H Add Manual Diff (CRITERIA DIFF/SCN) NO Immature Gran % (0.0 - 5.0 %) 0.9 Nucleated RBC % (0.0 - 1.0 /100WBC%) 0.0 Diagnosis, Assessment PlanFree Text A P:1.Status post pacemaker, tachybradycardia syndrome, history of atrial fibrillation2. Left hemothorax that was drained3. Recurrent C. difficile colitis 4. Emphysema5. Hypertension6. Lidocaine allergy Discussion s/p Volume resusitationcont midodrine TID PT OTShe was noted to have C. difficile colitis Antibiotics Deficit Wound care for wond DG to tele Discussed with her daughter and discussed with the nursing staff. at 1147 RPT #: [id number] OF REPORT PRProgress [id number]:12:00L.[id number] able for patient gcdhIYYYDQQTUICLOO5995-09-05D24:48:04 [facility] 2022-09-27 15:23:00 [id number] C8JsKcv/gYvZFur2innVypAZ8Dii/ 6A9yAo/O1TucEJz8i5nDakiIRI89222-14-90C64:23:00 [facility] ([facility])Wound Care Progress NoteREPORT#:[id number] REPORT STATUS: SignedDATE:09/27/22 TIME:1523 PATIENT: LESLEY BREAUX UNIT #: [id number]#: [id number] [address] AGE: 87 SEX: F ATTEND: Gissel Ortega MD CardiologyADM AUTHOR: Karlo Francis MD * ALL edits or amendments must be made on the electronic/computer document * SubjectiveChief complaint:Wound CareHPI:Pt remains in C.diff iso in the ICUUnable to obtain: medical condition Objective GeneralVS:Last Documented: Result Date Time Pulse Ox 97 09/27 1500 B/P 96/54 09/27 1500 B/P Mean 71 09/27 1500 Pulse 68 09/27 1500 Resp 13 09/27 1500 O2 Delivery Nasal cannula 09/27 1115 O2 Flow Rate 2 09/27 1115 Temp 97.4 09/27 1100 FiO2 28 09/27 0741 PATIENT WEIGHT: Weight (lb): 99Weight (oz): 3.33Weight (kg): 44.906 Medications:Active Meds + DC'd Last 24 HrsMetronidazole (FLAGYL) 500 MG Q8HR PO (CAN) Midodrine (PROAMATINE) 5 MG TID PO Enoxaparin Sodium (lovENOX) 30 MG Q24H SUBQ Pantoprazole (PROTONIX) 40 MG DAILY PO Undefined Medication (POTASSIUM PHOS 15 MMOL/ NS 250ML) 250 ML ONCE ONE IV (DC) Metronidazole/Sodium Chloride (metroNIDAZOLE 500MG / 100 MLNS) 100 ML Q8HR IV Nystatin (MYCOSTATIN 15 GM POWDER) 1 APPLIC Q12H TOPICAL Mupirocin (BACTROBAN NASAL-ADULT ICU/STEVE MRSA PATIENTS) 1 APPLIC 0900,1700 NASAL Ondansetron HCl (ZOFRAN) 4 MG Q6H PRN PRN IV Norepinephrine Bitartrate (Levophed 16 MG/250 ML NS) 250 ML ASDIR IV Lactated Ringer's (LACTATED RINGERS) 1,000 ML .Q8H IV Lactobacillus Acidophilus (BACID) 1 CAP BID PO Fidaxomicin (DIFICID) 200 MG Q12HR PO Furosemide (LASIX 20MG INJ) 20 MG Q12HR IV Sodium Chloride (SODIUM CHLORIDE) 10 ML ASDIR IV Zolpidem Tartrate (AMBIEN) 5 MG BEDTIME PRN PRN PO Acetylcysteine (MUCOMYST 20% 4 ML) 200 MG RTQ6H NEB Iopamidol (ISOVUE-300) 100 ML ONCE PRN IV Sodium Chloride (0.9% Sodium Chloride) 50 ML ONCE PRN IV Tramadol HCl (ULTRAM) 25 MG Q4H PRN PRN PO Albuterol/Ipratropium (DUONEB) 3 ML RTQ6H PRN PRN NEB Iopamidol (ISOVUE-370) 100 ML ONCE PRN IV Atorvastatin Calcium (LIPITOR) 10 MG BEDTIME PO Sertraline HCl (ZOLOFT) 25 MG DAILY PO Acetaminophen (TYLENOL) 650 MG Q4H PRN PRN PO Ondansetron HCl (ZOFRAN ODT) 4 MG Q8H PRN PRN PO Sodium Chloride (SODIUM CHLORIDE) SALINE FLUSH ASDIR PRN IV Dietitian Nutrition assessmentThe data set between the solid lines has been imported from the dietitian's assessment. BMI Calculated: 19.4Nutrition related diagnosis: Nutrition diagnosis details: Nutrition problem: Nutrition etiology: Nutrition signs and symptoms: Nutrition prescription: Dietitian name: Assessment completed: Physical ExamGeneral appearance: chronically ill appearingRespiratory: no distressAbdomen: non-tenderExtremities: no edema Wound AssessmentWound Assessment 1: Type/cause: pressure Wound location: buttock, sacral region Tissue layers: limited to skin breakdown Site condition: no drainage, no ecchymosis, no erythema Stage of pressure ulcer: stage II Diagnosis, Assessment PlanProblem List/A P: 1. Decubitus ulcer of sacral [...] per RN shift. 4. C. difficile diarrhea at 1526 RPT #: [id number] OF REPORT PNProcedure [id number]:23:00L.[id number] able for patient [id number]:27:13 [facility] 2022-09-27 13:02:00 [id number] klDbqSdNRYLYk8nk4pOKgINlszXWw Q5KXDM/82ZjHE3jiBjTp1L/HLav0115-77-75N64:02:00 [facility] ([facility])Infectious Dis. Progress NoteREPORT#:[id number] REPORT STATUS: SignedDATE:09/27/22 TIME:1302 PATIENT: LESLEY BREAUX UNIT #: [id number]#: [id number] ROOM/BED: [id number]: 36 AGE: 87 SEX: F ATTEND: Gissel Ortega MD CardiologyADM AUTHOR: Curtis Sun MD * ALL edits or amendments must be made on the electronic/computer document * SubjectiveChief complaint:Recurrent C. diff.HPI:Leukocytosis decreased. Pt is on fidamoxicin and IV metronidazole. Review of SystemsConstitutional:Denies: fever. Objective GeneralVS/I O:Vital Signs Date Temp Pulse Resp B/P B/P [...] O2 Flow FiO2 Mean Ox Delivery Rate 09/27 1300 65 13 94/49 69 99 09/27 1245 67 15 115/55 79 98 09/27 1230 65 15 108/53 76 99 09/27 1215 64 14 109/47 68 100 / 1200 68 17 112/51 74 100 / 1145 68 15 137/62 89 99 / 1130 63 14 131/60 86 99 09/27 1115 Nasal 2 cannula 09/27 1115 64 14 116/54 78 99 / 1100 36.3 / 1100 63 15 141/60 87 100 / 1045 68 16 154/66 95 100 / 1030 75 14 116/55 79 100 / 1015 74 14 123/56 80 99 / 1000 78 17 134/61 88 100 / 0958 81 19 142/63 90 100 / 0947 74 20 149/64 92 97 / 0945 72 19 128/60 86 100 / 0930 67 14 114/57 82 100 08/ 0928 70 13 131/61 88 100 / 0915 66 14 125/61 88 100 08/21 0900 76 13 84/46 61 97 / 0845 72 14 120/60 86 99 08/21 0830 70 15 115/59 81 99 08/ 0815 72 18 120/58 83 98 08/21 0800 71 15 134/62 89 98 / 0745 66 14 133/59 85 100 08/21 [...] 2045 72 15 106/50 72 98 08/20 2030 74 17 102/50 72 99 08/20 2014 [...] I O ending at 0700: 09/27 0700 08 1900 Intake Total 2648.20 2476.60 Output Total 1650 845 Balance 998.20 1631.60 Intake, IV 1848.20 2002.60 Intake, Oral 800 Intake, Oral 474 Supplement Output, Stool 100 Output, Urine 1650 745 PATIENT WEIGHT: Weight (lb): 99Weight (oz): 3.33Weight (kg): 44.906 Physical ExamGeneral appearance: alert, awakeHead/Eyes: atraumatic, clear cornea, EOMI, normal conjunctiva/sclera, normal eyelids/periorb, normocephalicNeck: full range of motion, non-tender, supple/no meningismusCardiovascular: regular rate rhythmRespiratory: symmetric expansion, no distressAbdomen: tenderness, normal bowel sounds, soft, no CVA tenderness, no distention, no guarding, no mass/organomegaly, no reboundExtremities: normal temperature, no cyanosisNeuro/BRIM WELT SEWING MACHINE OPERATOR: alert, normal speechSkin: normal turgor, no rash Diagnosis, Assessment PlanFree Text A P:Laboratory Tests 09/27/22 0211:[Embedded Image Not Available] 09/26/22 0626:[Embedded Image Not Available] Imaging:CXR reviewed 09/24CTAP reviewed 09/20 Assessment:1. Recurrent C. difficile colitis. Per family, pt responded better to fidaxomicin compared with vancomycin during previous episodes.2. SIRS (fever, leukocytosis) likely due to above.3. Left pleural effusion s/p chest tube removal.4. S/p pacemaker placement 09/18/22.5. Allergy to penicillin (hives) and sulfas (passed out). Plan:1. Fidaxomicin (day 4 of 10).2. IV metronidazole (day 2) as WBC increased while on fidaxomicin.3. Avoid systemic abxs if possible.4. Monitor CBC.5. Monitor kidney function.6. Case discussed with hospitalist.7. Plan discussed with daughter RICARDO. at 1438 RPT #: [id number] OF REPORT PRProgress [id number]:02:00L.[id number] able for patient ikraCAUOBNHCPPFKSD9342-08-83U85:39:11 [facility] 2022-09-27 12:58:00 [id number] Dx+16aSFRxo2UIbzfYRAZeZEsgkbD KeLiwOHokMhIuwkqRz+eDyOKc2m0558-31-76I67:58:00 [facility] Progress NoteREPORT#:[id number] REPORT STATUS: SignedDATE:09/27/22 TIME:1258 PATIENT: LESLEY BREAUX UNIT #: [id number]#: [id number] [address] AGE: 87 SEX: F ATTEND: Gissel Ortega MD CardiologyADM AUTHOR: Art Tavera MD * ALL edits or amendments must be made on the electronic/computer document * SubjectiveChief complaint:Still on LevophedWe will try to wean off Objective GeneralVS/I O:Vital Signs: Date Time Temp Pulse Resp B/P B/P Pulse O2 O2 Flow FiO2 Mean Ox Delivery Rate 09/27 1400 [...] / 1000 78 17 134/61 88 100 09/27 0958 81 19 142/63 90 100 09/27 0947 74 20 149/64 92 97 09/27 0945 72 19 128/60 86 100 09/27 0930 67 14 114/57 82 100 09/27 0928 70 13 131/61 88 100 08/21 0915 66 14 125/61 88 100 08/21 [...] 2045 72 15 106/50 72 98 08/20 2030 74 17 102/50 72 99 08/20 2014 [...] I O ending at 0700: 09/27 0700 08 1900 Intake Total 2648.20 2476.60 Output Total 1650 845 Balance 998.20 1631.60 Intake, IV 1848.20 2002.60 Intake, Oral 800 Intake, Oral 474 Supplement Output, Stool 100 Output, Urine 1650 745 PATIENT WEIGHT: Weight (lb): 99Weight (oz): 3.33Weight (kg): 44.906 Medications:Active Meds + DC'd Last 24 HrsMetronidazole (FLAGYL) 500 MG Q8HR PO (CAN) Midodrine (PROAMATINE) 5 MG TID PO Enoxaparin Sodium (lovENOX) 30 MG Q24H SUBQ Pantoprazole (PROTONIX) 40 MG DAILY PO Undefined Medication (POTASSIUM PHOS 15 MMOL/ NS 250ML) 250 ML ONCE ONE IV (DC) Metronidazole/Sodium Chloride (metroNIDAZOLE 500MG / 100 MLNS) 100 ML Q8HR IV Nystatin (MYCOSTATIN 15 GM POWDER) 1 APPLIC Q12H TOPICAL Mupirocin (BACTROBAN NASAL-ADULT ICU/STEVE MRSA PATIENTS) 1 APPLIC 0900,1700 NASAL Ondansetron HCl (ZOFRAN) 4 MG Q6H PRN PRN IV Norepinephrine Bitartrate (Levophed 16 MG/250 ML NS) 250 ML ASDIR IV Lactated Ringer's (LACTATED RINGERS) 1,000 ML .Q8H IV Lactobacillus Acidophilus (BACID) 1 CAP BID PO Fidaxomicin (DIFICID) 200 MG Q12HR PO Furosemide (LASIX 20MG INJ) 20 MG Q12HR IV Sodium Chloride (SODIUM CHLORIDE) 10 ML ASDIR IV Zolpidem Tartrate (AMBIEN) 5 MG BEDTIME PRN PRN PO Acetylcysteine (MUCOMYST 20% 4 ML) 200 MG RTQ6H NEB Iopamidol (ISOVUE-300) 100 ML ONCE PRN IV Sodium Chloride (0.9% Sodium Chloride) 50 ML ONCE PRN IV Tramadol HCl (ULTRAM) 25 MG Q4H PRN PRN PO Albuterol/Ipratropium (DUONEB) 3 ML RTQ6H PRN PRN NEB Iopamidol (ISOVUE-370) 100 ML ONCE PRN IV Atorvastatin Calcium (LIPITOR) 10 MG BEDTIME PO Sertraline HCl (ZOLOFT) 25 MG DAILY PO Acetaminophen (TYLENOL) 650 MG Q4H PRN PRN PO Ondansetron HCl (ZOFRAN ODT) 4 MG Q8H PRN PRN PO Sodium Chloride (SODIUM CHLORIDE) SALINE FLUSH ASDIR PRN IV Dietitian nutrition assessmentThe data set between the solid lines has been imported from the dietitian's assessment. BMI Calculated: 19.4Nutrition related diagnosis: Nutrition diagnosis details: Nutrition problem: Nutrition etiology: Nutrition signs and symptoms: Nutrition prescription: Dietitian name: Assessment completed: Physical ExamGeneral appearance: chronically ill appearing, alert, awakeHead/Eyes: atraumatic, normocephalicENT: dry mucosal membraneNeck: supple/no meningismusCardiovascular: normal heart sounds, regular rate rhythmRespiratory: decreased breath sounds, on oxygen, symmetric expansion, no distress, PPM site c/d/i, no overlying edema, erythema or warmthAbdomen: non-tender, softGenitourinary: no bladder distentionExtremities: moves all, no edemaMusculoskeletal: no CVA tendernessNeuro/BRIM WELT SEWING MACHINE OPERATOR: alert, normal speechSkin: dryPsychiatry: normal affect, normal mood ResultsFindings/Data:Laboratory Tests 09/27/22 0211:[Embedded Image Not Available] 09/26/22 06:[Embedded Image Not Available] 09/25/222051:[Embedded Image Not Available]Laboratory Tests 09/27 210 Chemistry Sodium (134 - 147 mmol/L) 134 Potassium (3.4 - 5.0 mmol/L) 3.5 Chloride (100 - 108 mmol/L) 101 Carbon Dioxide (21 - 32 mmol/L) 29 Anion Gap (4.0 - 15.0 GAP calc) 4.0 BUN (7 - 18 MG/DL) 45 H Creatinine (0.6 - 1.0 MG/DL) 0.8 Glomerular Filtr Rate (>60 estGFR) >=60 max estimate Glucose (70 - 110 MG/DL) 107 Calcium [...] (Auto) (20.5 - 51.1 %) 6.7 L Erath % (Auto) (1.7 - 9.3 %) 8.0 Eos % (Auto) (0.0 - 6.0 %) 5.2 Baso % (Auto) (0.0 - 2.0 %) 0.3 Neut # (Auto) (1.8 - 7.6 K/mm3) 11.5 H Lymph # (Auto) (0.6 - 3.2 K/mm3) 1.0 Erath # (Auto) (0.3 - 1.1 K/mm3) 1.2 H Eos # (Auto) (0.0 - 0.4 K/mm3) 0.8 H Baso # (Auto) (0.0 - 0.1 K/mm3) 0.0 Abs Immat Gran (auto) (0.00 - 0.03 x10 3/uL) 0.15 H Add Manual Diff (CRITERIA DIFF/SCN) NO Immature Gran % (0.0 - 5.0 %) 1.0 Nucleated RBC % (0.0 - 1.0 /100WBC%) 0.0 Diagnosis, Assessment Plan Free Text DxA P NotesFree text DxA P notes:87 y/o female with PMHx of HTN, HLD, COPD, paroxysmal Afib, sick sinus syndrome,tachybrady syndome admitted for: Paroxysmal Afib, sick sinus syndrome, tachybrady syndrome s/p PPM placements/p PPM placement by Cardiology Dr. Ortega 09/18/22Continue to monitor under continuous telemetryMonitor PPM insertion sitePain control with Tylenol/Tramadol PRNContinue home coregHold home Eliquis due to anemia with possible hemothorax Complex moderate left pleural effusion / hemothorax, s/p R sided Cx tube in place with 600c of bloody fluid removedAppreciate pulm medicine, pain controlStatus post removal of the chest tube Acute normocytic anemia, possibly due to acute blood loss with possible hemothoraxStatus post transfusionMonitor H H closely Hypotension with a history of hypertensionHold home coreg, losartanTransferred to ICUStarted on LevophedWe will try to wean down to MAP of 65Added on midodrine COPDNot in acute exacerbationDuoneb tx PRN C. difficile colitisStarted on fidaxomicinID consultedContinues to have diarrheaAdd on probiotics HyponatremiaElectrolytes monitor and replace accordingly Acute kidney injuryRenal parameters monitored DVT prophylaxis with SCDs, held home Eliquis due to anemia Full code Total critical care time used was 33 minutes at 1446 RPT #: [id number] OF REPORT PRProgress hhrp3038-29-72H54:58:00L.[id number] able for patient raoeFOAZKVKQPGJGDS7908-42-15S75:47:21 [facility] 2022-09-27 10:28:00 [id number] HwQF1k+oAhYx/3k4Cb/fj6ao8Fd4S tU7sRarrAssoeMJzlk8YMIgFOx49481-48-56E30:28:00 [facility] ([facility])Pulmonology Progress NoteREPORT#:[id number] REPORT STATUS: SignedDATE:09/27/22 TIME:1028 PATIENT: LESLEY BREAUX UNIT #: [id number]#: [id number] [address]QJ: 36 AGE: 87 SEX: F ATTEND: Gissel Ortega MD CardiologyADM AUTHOR: Mauro Arce MD * ALL edits or amendments must be made on the electronic/computer document * SubjectiveChief complaint:LESS abdominal pain and diarrheaImproved Left-sided chest pain, no shortness of breathon pressors stioll hemodynamically unstableHPI:Pleasant 87-year-old lady who underwent pacemaker placement yesterday for tachybradycardia syndrome.She was having more shortness of breath and left-sided chest pain for which a CTangiogram of the chest was done, see full report.Images reviewed and discussed with patient and granddaughter.There is a small to moderate size left pleural effusion with different densitiessuggesting possible blood product. There are also chronic appearing reticular nodular, tree-in-bud type peripheral mostly lower zone infiltrates right more than left, no prior CT images to compare.The patient denies much in the way of chronic sputum fevers chills sweats or significant weight loss.The patient has emphysema has seen pulmonary doctors in the outpatient setting at [facility] but never smoked.Except described above, review of systems x14 is negative and normal. Review of Systems ROSAllergy/Immun:Denies: anaphylaxis, hives. ENT:Denies: hearing loss, mouth pain. GI:Reports: abdominal pain, diarrhea. Denies: hematemesis, hematochezia. Neuro:Denies: numbness, seizure. Objective GeneralVS/I O:Last Documented: Result Date Time Pulse Ox 97 09/27 09 B/P 84/46 09/27 09 B/P Mean 61 09/27 0900 Pulse 76 09/27 0900 Resp 13 09/27 0900 FiO2 28 09/27 0741 O2 Delivery Nasal cannula 09/27 07 O2 Flow Rate 2 09/27 0641 Temp 36.1 09/27 0700 24 hour I O ending at 0700: 09/27 0700 09/26 1900 Intake Total 2648.20 2476.60 Output Total 1650 845 Balance 998.20 1631.60 Intake, IV 1848.20 2002.60 Intake, Oral 800 Intake, Oral 474 Supplement Output, Stool 100 Output, Urine 1650 745 PATIENT WEIGHT: Weight (lb): 99Weight (oz): 3.33Weight (kg): 45.000 Medications:Active Meds + DC'd Last 24 HrsMetronidazole (FLAGYL) 500 MG Q8HR PO (CAN) Midodrine (PROAMATINE) 5 MG TID PO Enoxaparin Sodium (lovENOX) 30 MG Q24H SUBQ Pantoprazole (PROTONIX) 40 MG DAILY PO Undefined Medication (POTASSIUM PHOS 15 MMOL/ NS 250ML) 250 ML ONCE ONE IV Metronidazole/Sodium Chloride (metroNIDAZOLE 500MG / 100 MLNS) 100 ML Q8HR IV Nystatin (MYCOSTATIN 15 GM POWDER) 1 APPLIC Q12H TOPICAL Mupirocin (BACTROBAN NASAL-ADULT ICU/STEVE MRSA PATIENTS) 1 APPLIC 0900,1700 NASAL Ondansetron HCl (ZOFRAN) 4 MG Q6H PRN PRN IV Norepinephrine Bitartrate (Levophed 16 MG/250 ML NS) 250 ML ASDIR IV Lactated Ringer's (LACTATED RINGERS) 1,000 ML .Q8H IV Lactobacillus Acidophilus (BACID) 1 CAP BID PO Fidaxomicin (DIFICID) 200 MG Q12HR PO Furosemide (LASIX 20MG INJ) 20 MG Q12HR IV Sodium Chloride (SODIUM CHLORIDE) 10 ML ASDIR IV Zolpidem Tartrate (AMBIEN) 5 MG BEDTIME PRN PRN PO Acetylcysteine (MUCOMYST 20% 4 ML) 200 MG RTQ6H NEB Iopamidol (ISOVUE-300) 100 ML ONCE PRN IV Sodium Chloride (0.9% Sodium Chloride) 50 ML ONCE PRN IV Tramadol HCl (ULTRAM) 25 MG Q4H PRN PRN PO Albuterol/Ipratropium (DUONEB) 3 ML RTQ6H PRN PRN NEB Iopamidol (ISOVUE-370) 100 ML ONCE PRN IV Atorvastatin Calcium (LIPITOR) 10 MG BEDTIME PO Sertraline HCl (ZOLOFT) 25 MG DAILY PO Acetaminophen (TYLENOL) 650 MG Q4H PRN PRN PO Ondansetron HCl (ZOFRAN ODT) 4 MG Q8H PRN PRN PO Sodium Chloride (SODIUM CHLORIDE) SALINE FLUSH ASDIR PRN IV Physical ExamHead/eyes: atraumatic, normocephalic, normal conjunctiva/scleraENT: ENT: moist mucosal membranes, normal pharynxNeck: non-tender, supple/no meningismusCardiovascular: normal S1/S2, regular rate rhythmRespiratory/chest: decreased breath sounds, on oxygen, rales, bandage, slingAbdomen: soft, non-tenderExtremities: edema, no clubbing, no cyanosisMusculoskeletal: normal inspection, no muscle spasmNeuro/BRIM WELT SEWING MACHINE OPERATOR: alert, oriented X 3, no motor deficitsSkin: dry, intactLymphatics: neck normal, no lymphadenopathy ResultsFindings/Data:Laboratory Tests 09/27/22210:[Embedded Image Not Available]Laboratory Tests 09/27 210 Chemistry Sodium (134 - 147 mmol/L) 134 Potassium (3.4 - 5.0 mmol/L) 3.5 Chloride (100 - 108 mmol/L) 101 Carbon Dioxide (21 - 32 mmol/L) 29 Anion Gap (4.0 - 15.0 GAP calc) 4.0 BUN (7 - 18 MG/DL) 45 H Creatinine (0.6 - 1.0 MG/DL) 0.8 Glomerular Filtr Rate (>60 estGFR) >=60 max estimate Glucose (70 - 110 MG/DL) 107 Calcium [...] (Auto) (20.5 - 51.1 %) 6.7 L Erath % (Auto) (1.7 - 9.3 %) 8.0 Eos % (Auto) (0.0 - 6.0 %) 5.2 Baso % (Auto) (0.0 - 2.0 %) 0.3 Neut # (Auto) (1.8 - 7.6 K/mm3) 11.5 H Lymph # (Auto) (0.6 - 3.2 K/mm3) 1.0 Erath # (Auto) (0.3 - 1.1 K/mm3) 1.2 H Eos # (Auto) (0.0 - 0.4 K/mm3) 0.8 H Baso # (Auto) (0.0 - 0.1 K/mm3) 0.0 Abs Immat Gran (auto) (0.00 - 0.03 x10 3/uL) 0.15 H Add Manual Diff (CRITERIA DIFF/SCN) NO Immature Gran % (0.0 - 5.0 %) 1.0 Nucleated RBC % (0.0 - 1.0 /100WBC%) 0.0 Diagnosis, Assessment PlanFree Text A P:1.Status post pacemaker, tachybradycardia syndrome, history of atrial fibrillation2. Left hemothorax that was drained3. Recurrent C. difficile colitis 4. Emphysema5. Hypertension6. Lidocaine allergy Discussion s/p Volume resusitation She is requiring Levophed at low-dose.We will start midodrineTapering her Levophed then DCPT SHARON reviewed her x-ray improving infiltrate in the left sideShe was noted to have C. difficile colitis She continues to have diarrhea and she has a rectal tube now.Antibiotics for statedWound careWe will consult gastroenterology in addition to infectious diseases while addressing her C. difficile.Consider adding IV Flagyl. Discussed with her daughter and discussed with the nursing staff. Continue close ICU monitoringOnce more stable will downgrade Critical care time 32 minutes at 1031 RPT #: [id number] OF REPORT PRProgress [id number]:28:00L.[id number] able for patient xawgLBMGQQKGQWJKPW8673-10-90R32:32:11 [facility] 2022-09-27 06:34:00 [id number] KiNngUTHSdIzkHEcP9P6+IW8Nb7eY blyrVCOkCOZ4uF8lC92saUEteub0417-74-41Y41:34:00 [facility] Consultation NoteREPORT#:[id number] REPORT STATUS: SignedDATE:09/27/22 TIME:633 PATIENT: LESLEY BREAUX UNIT #: [id number]#: [id number] [address] AGE: 87 SEX: F ATTEND: Gissel Ortega MD CardiologyADM AUTHOR: Lonnie Turpin MD * ALL edits or amendments must be made on the electronic/computer document * History of Present IllnessRequesting clinician: Susan Pal for consult:recurrent C diffChief complaint:i'm tiredHPI:87 y/o female with PMHx of HTN, HLD, COPD, paroxysmal Afib, sick sinus syndrome,tachybrady syndome admitted for: Paroxysmal Afib, sick sinus syndrome, tachybrady syndrome s/p PPM placements/p PPM placement by Cardiology Dr. Ortega 09/18/22Continue to monitor under continuous telemetryMonitor PPM insertion sitePain control with Tylenol/Tramadol PRNContinue home coregHold home Eliquis due to anemia with possible hemothorax Complex moderate left pleural effusion / hemothorax, s/p R sided Cx tube in place with 600c of bloody fluid removedAppreciate pulm medicine, pain controlStatus post removal of the chest tube Acute normocytic anemia, possibly due to acute blood loss with possible hemothoraxStatus post transfusionMonitor H H closely Hypotension with a history of hypertensionHold home coreg, losartanTransferred to ICUStarted on LevophedWe will try to wean down to MAP of 65Added on midodrine COPDNot in acute exacerbationDuoneb tx PRN C. difficile colitisStarted on fidaxomicinID consultedContinues to have diarrheaAdd on probiotics HyponatremiaElectrolytes monitor and replace accordingly Acute kidney injuryRenal parameters monitored No colonic dilation on abd imaging. No overt gib noted by nursing staff. History - Adult longitudinalPast medical history:Reports: Hypertension. Additional medical history:None.Family history:Reports: Heart disease, Hypertension. Smoking status for patients 13 years old or older: Never SmokerAllergies:Coded Allergies:fentanyl (Severe, COMA 09/16/22)Penicillins (Intermediate, HIVES 09/16/22)Sulfa (Sulfonamide Antibiotics) (Intermediate, MAKES HER PASS OUT 09/16/22)codeine (Intermediate, VOMITING 09/16/22)hydrocodone (Intermediate, VOMITING 09/16/22)meperidine (From DEMEROL) (Intermediate, THROW UP 09/16/22)morphine (Mild, HIVES 09/16/22)lidocaine (RASH-UNKNOWN 09/19/22) Review of SystemsConstitutional:Reports: fatigue. GI:Reports: diarrhea. All systems rev neg: except as marked Objective Physical ExamVS/I O:Last Documented: Result Date Time Pulse Ox 98 09/27 0615 B/P 122/59 09/27 0615 B/P Mean 85 09/27 0615 Pulse 71 09/27 0615 Resp 15 09/27 0615 Temp 97.6 09/27 0400 O2 Delivery Nasal cannula 09/27 1999 O2 Flow Rate 2 09/26 2000 FiO2 28 09/26 1948 24 hour I O ending at 0700: 09/27 0700 09/26 1900 Intake Total 2648.20 2476.60 Output Total 1650 845 Balance 998.20 1631.60 Intake, IV 1848.20 2002.60 Intake, Oral 800 Intake, Oral 474 Supplement Output, Stool 100 Output, Urine 1650 745 PATIENT WEIGHT: Weight (lb): 99Weight (oz): 3.33Weight (kg): 45.000 Medications:Active Meds + DC'd Last 24 HrsPantoprazole (PROTONIX) 40 MG DAILY PO Undefined Medication (POTASSIUM PHOS 15 MMOL/ NS 250ML) 250 ML ONCE ONE IV Metronidazole/Sodium Chloride (metroNIDAZOLE 500MG / 100 MLNS) 100 ML Q8HR IV Nystatin (MYCOSTATIN 15 GM POWDER) 1 APPLIC Q12H TOPICAL Lactated Ringer's (LACTATED RINGERS) 500 ML BOLUS IV (DC) Mupirocin (BACTROBAN NASAL-ADULT ICU/STEVE MRSA PATIENTS) 1 APPLIC 0900,1700 NASAL Ondansetron HCl (ZOFRAN) 4 MG Q6H PRN PRN IV Norepinephrine Bitartrate (Levophed 16 MG/250 ML NS) 250 ML ASDIR IV Lactated Ringer's (LACTATED RINGERS) 1,000 ML .Q8H IV Lactobacillus Acidophilus (BACID) 1 CAP BID PO Fidaxomicin (DIFICID) 200 MG Q12HR PO Furosemide (LASIX 20MG INJ) 20 MG Q12HR IV Sodium Chloride (SODIUM CHLORIDE) 10 ML ASDIR IV Zolpidem Tartrate (AMBIEN) 5 MG BEDTIME PRN PRN PO Acetylcysteine (MUCOMYST 20% 4 ML) 200 MG RTQ6H NEB Iopamidol (ISOVUE-300) 100 ML ONCE PRN IV Sodium Chloride (0.9% Sodium Chloride) 50 ML ONCE PRN IV Tramadol HCl (ULTRAM) 25 MG Q4H PRN PRN PO Albuterol/Ipratropium (DUONEB) 3 ML RTQ6H PRN PRN NEB Iopamidol (ISOVUE-370) 100 ML ONCE PRN IV Atorvastatin Calcium (LIPITOR) 10 MG BEDTIME PO Sertraline HCl (ZOLOFT) 25 MG DAILY PO Acetaminophen (TYLENOL) 650 MG Q4H PRN PRN PO Ondansetron HCl (ZOFRAN ODT) 4 MG Q8H PRN PRN PO Sodium Chloride (SODIUM CHLORIDE) SALINE FLUSH ASDIR PRN IV General appearance: alert, awake, orientedHEENT: normal ear, normal noseNeck: no JVD, no lymphadenopathyCardiovascular: normal heart sounds, normal S1/L5Bwkhjoywxyq: symmetric expansion, no distressAbdomen: soft, no distentionExtremities: no clubbing, no cyanosisMusculoskeletal: normal inspectionNeuro/BRIM WELT SEWING MACHINE OPERATOR: alert, oriented X 3Skin: no ecchymosis, no rashPsychiatry: normal affect, normal judgment/insight ResultsFindings/Data:Laboratory Tests 09/27/22 0211:[Embedded Image Not Available]Laboratory Tests 09/27 210 Chemistry Sodium (134 - 147 mmol/L) 134 Potassium (3.4 - 5.0 mmol/L) 3.5 Chloride (100 - 108 mmol/L) 101 Carbon Dioxide (21 - 32 mmol/L) 29 Anion Gap (4.0 - 15.0 GAP calc) 4.0 BUN (7 - 18 MG/DL) 45 H Creatinine (0.6 - 1.0 MG/DL) 0.8 Glomerular Filtr Rate (>60 estGFR) >=60 max estimate Glucose (70 - 110 MG/DL) 107 Calcium [...] (Auto) (20.5 - 51.1 %) 6.7 L Erath % (Auto) (1.7 - 9.3 %) 8.0 Eos % (Auto) (0.0 - 6.0 %) 5.2 Baso % (Auto) (0.0 - 2.0 %) 0.3 Neut # (Auto) (1.8 - 7.6 K/mm3) 11.5 H Lymph # (Auto) (0.6 - 3.2 K/mm3) 1.0 Erath # (Auto) (0.3 - 1.1 K/mm3) 1.2 H Eos # (Auto) (0.0 - 0.4 K/mm3) 0.8 H Baso # (Auto) (0.0 - 0.1 K/mm3) 0.0 Abs Immat Gran (auto) (0.00 - 0.03 x10 3/uL) 0.15 H Add Manual Diff (CRITERIA DIFF/SCN) NO Immature Gran % (0.0 - 5.0 %) 1.0 Nucleated RBC % (0.0 - 1.0 /100WBC%) 0.0 Radiology data:Recent Impressions:RADIOLOGY - XR ABDOMEN 1 V 09/26 926 Report Impression - Status: SIGNED Entered: 09/26/2022 1000 IMPRESSION:Nonobstructive bowel gas pattern.Impression By: Venus Fajardo M.D. Diagnosis, Assessment Plan Free Text DxA P NotesFree Text DxA P Notes:87 y/o female with PMHx of HTN, HLD, COPD, paroxysmal Afib, sick sinus syndrome,tachybrady syndome admitted for: Paroxysmal Afib, sick sinus syndrome, tachybrady syndrome s/p PPM placements/p PPM placement by Cardiology Dr. Ortega 09/18/22Continue to monitor under continuous telemetryMonitor PPM insertion sitePain control with Tylenol/Tramadol PRNContinue home coregHold home Eliquis due to anemia with possible hemothorax Complex moderate left pleural effusion / hemothorax, s/p R sided Cx tube in place with 600c of bloody fluid removedAppreciate pulm medicine, pain controlStatus post removal of the chest tube Acute normocytic anemia, possibly due to acute blood loss with possible hemothoraxStatus post transfusionMonitor H H closely Hypotension with a history of hypertensionHold home coreg, losartanTransferred to ICUStarted on LevophedWe will try to wean down to MAP of 65Added on midodrine COPDNot in acute exacerbationDuoneb tx PRN C. difficile colitisStarted on fidaxomicinID consultedContinues to have diarrheaAdd on probiotics HyponatremiaElectrolytes monitor and replace accordingly Acute kidney injuryRenal parameters monitored No further recommendations. Agree with assessment and treatment by ID, supportive care.No role for colonoscopy at this time at 0637 RPT #: [id number] OF REPORT MDQbpkdltebbpx0458-11-05G75:34:00L.[id number] 012AVAvailable for patient zkhlQXXZALYMQHWQAN2395-52-63T80:37:44 [facility] 2022-09-26 11:03:00 [id number] a9YXzrlVmY9AyhrjbBzGWUXNmfxa9 jCaCWMLvKIOT2INLUov3PF4/jXZ2686-37-29Z52:03:00 [facility] ([facility])Infectious Dis. Progress NoteREPORT#:[id number] REPORT STATUS: SignedDATE:09/26/22 TIME:1103 PATIENT: LESLEY BREAUX UNIT #: [id number]#: [id number] [address] AGE: 87 SEX: F ATTEND: Gissel Ortega MD CardiologyADM AUTHOR: Curtis Sun MD * ALL edits or amendments must be made on the electronic/computer document * SubjectiveChief complaint:Recurrent C. diff.HPI:WBC increased and BP dropped. No fever overnight. Pt transferred to ICU. Review of SystemsUnable to obtain due to:Poor historian Objective Physical ExamGeneral appearance: chronically ill appearingHead/Eyes: atraumatic, clear cornea, EOMI, normal conjunctiva/sclera, normal eyelids/periorb, normocephalicNeck: full range of motion, non-tender, supple/no meningismusCardiovascular: regular rate rhythmRespiratory: symmetric expansion, no distressAbdomen: tenderness, normal bowel sounds, soft, no CVA tenderness, no distention, no guarding, no mass/organomegaly, no reboundGenitourinary: no flank painExtremities: normal temperature, no cyanosisNeuro/BRIM WELT SEWING MACHINE OPERATOR: alert, normal speechSkin: normal turgor, no rash Diagnosis, Assessment PlanFree Text A P:Laboratory Tests 09/26/22 0626:[Embedded Image Not Available] 09/25/222051:[Embedded Image Not Available] 09/24/22 1229:[Embedded Image Not Available] Imaging:CXR reviewed 09/24CTAP reviewed 09/20 Assessment:1. Recurrent C. difficile colitis.2. SIRS (fever, leukocytosis) likely due to above.3. Left pleural effusion s/p chest tube removal.4. S/p pacemaker placement 09/18/22.5. Allergy to penicillin (hives) and sulfas (passed out). Plan:1. Fidaxomicin (day 3 of 10).2. Add ICV metronidazole as WBC increased.3. Avoid systemic abxs if possible.4. KUB.5. Monitor CBC.6. Monitor kidney function.7. Case discussed with ICU.8. Case discussed with hospitalist.9. Plan discussed with daughter RICARDO. at 1106 RPT #: [id number] OF REPORT PRProgress hbxt8034-21-39O51:03:00L.[id number] able for patient secjKHLXVKWYWMQURT3284-16-66J50:06:53 [facility] 2022-09-26 10:07:00 [id number] 8jA7Sgyb1oy3NfmBpr2gdoAY+T+n5 uT+L2anOSzO++6wLUGUK7uxOyEX5537-54-66V69:07:00 [facility] ([facility])Pulmonology Progress NoteREPORT#:[id number] REPORT STATUS: SignedDATE:09/26/22 TIME:1007 PATIENT: LESLEY BREAUX UNIT #: [id number]#: [id number] [address]AM26-[address]JQZ: 36 AGE: 87 SEX: F ATTEND: Gissel Ortega MD CardiologyADM AUTHOR: Giorgi Chavarria MD * ALL edits or amendments must be made on the electronic/computer document * SubjectiveHPI:Pleasant 87-year-old lady who underwent pacemaker placement yesterday for tachybradycardia syndrome.She was having more shortness of breath and left-sided chest pain for which a CTangiogram of the chest was done, see full report.Images reviewed and discussed with patient and granddaughter.There is a small to moderate size left pleural effusion with different densitiessuggesting possible blood product. There are also chronic appearing reticular nodular, tree-in-bud type peripheral mostly lower zone infiltrates right more than left, no prior CT images to compare.The patient denies much in the way of chronic sputum fevers chills sweats or significant weight loss.The patient has emphysema has seen pulmonary doctors in the outpatient setting at [facility] but never smoked.Except described above, review of systems x14 is negative and normal. Review of Systems ROSAllergy/Immun:Denies: anaphylaxis, hives. ENT:Denies: hearing loss, mouth pain. GI:Reports: abdominal pain, diarrhea. Denies: hematemesis, hematochezia. Neuro:Denies: numbness, seizure. Objective GeneralVS/I O:Last Documented: Result Date Time Pulse Ox 97 [...] Output, Urine 375 PATIENT WEIGHT: Weight (lb): 99Weight (oz): 3.33Weight (kg): 45.000 Medications:Active Meds + DC'd Last 24 HrsLactated Ringer's (LACTATED RINGERS) 500 ML BOLUS IV (DC) Mupirocin (BACTROBAN NASAL-ADULT ICU/STEVE MRSA PATIENTS) 1 APPLIC 0900,1700 NASAL Ondansetron HCl (ZOFRAN) 4 MG Q6H PRN PRN IV Norepinephrine Bitartrate (Levophed 16 MG/250 ML NS) 250 ML ASDIR IV Sodium Chloride (0.9% Sodium Chloride) 500 ML BOLUS IV (DC) Magnesium Sulfate/Dextrose (MAGNESIUM SULFATE 1 G IN DEXTROSE 5% 100 ML) 100 ML ONCE ONE IV (DC) Lactated Ringer's (LACTATED RINGERS) 1,000 ML .Q8H IV Sodium Chloride (0.9% Sodium Chloride) 500 ML BOLUS IV (DC) Lactobacillus Acidophilus (BACID) 1 CAP BID PO Fidaxomicin (DIFICID) 200 MG Q12HR PO Furosemide (LASIX 20MG INJ) 20 MG Q12HR IV Sodium Chloride (SODIUM CHLORIDE) 10 ML ASDIR IV Zolpidem Tartrate (AMBIEN) 5 MG BEDTIME PRN PRN PO Acetylcysteine (MUCOMYST 20% 4 ML) 200 MG RTQ6H NEB Iopamidol (ISOVUE-300) 100 ML ONCE PRN IV Sodium Chloride (0.9% Sodium Chloride) 50 ML ONCE PRN IV Tramadol HCl (ULTRAM) 25 MG Q4H PRN PRN PO Albuterol/Ipratropium (DUONEB) 3 ML RTQ6H PRN PRN NEB Iopamidol (ISOVUE-370) 100 ML ONCE PRN IV Losartan Potassium (COZAAR) 12.5 MG DAILY PO (DC) Atorvastatin Calcium (LIPITOR) 10 MG BEDTIME PO Carvedilol (COREG) 3.125 MG DAILY PO (DC) Sertraline HCl (ZOLOFT) 25 MG DAILY PO Acetaminophen (TYLENOL) 650 MG Q4H PRN PRN PO Ondansetron HCl (ZOFRAN ODT) 4 MG Q8H PRN PRN PO Sodium Chloride (SODIUM CHLORIDE) SALINE FLUSH ASDIR PRN IV Physical ExamGeneral appearance: confusedHead/eyes: atraumatic, normocephalic, normal conjunctiva/scleraENT: ENT: moist mucosal membranes, normal pharynxNeck: non-tender, supple/no meningismusCardiovascular: normal S1/S2, regular rate rhythmRespiratory/chest: decreased breath sounds, on oxygen, rales, bandage, slingAbdomen: soft, non-tenderExtremities: edema, no clubbing, no cyanosisMusculoskeletal: normal inspection, no muscle spasmNeuro/BRIM WELT SEWING MACHINE OPERATOR: alert, oriented X 3, no motor deficitsSkin: dry, intactLymphatics: neck normal, no lymphadenopathy ResultsFindings/Data:Laboratory Tests 09/26/22625:[Embedded Image Not Available] 09/25/222051:[Embedded Image Not Available]Laboratory Tests 09/26 Chemistry Sodium (134 - 147 [...] MG/DL) 2.3 1.7 L Laboratory Tests 09/26 Hematology WBC (3.5 - 11.0 K/mm3) 21.1 [...] - 51.1 %) 5.3 L 5.4 L Erath % (Auto) (1.7 - 9.3 %) 8.8 8.4 Eos % (Auto) (0.0 - 6.0 %) 3.0 1.6 Baso % (Auto) (0.0 - 2.0 %) 0.3 0.5 Neut # (Auto) (1.8 - 7.6 K/mm3) 16.9 H 16.1 H Lymph # (Auto) (0.6 - 3.2 K/mm3) 1.1 1.1 Erath # (Auto) (0.3 - 1.1 K/mm3) 1.9 H 1.6 H Eos # (Auto) (0.0 - 0.4 K/mm3) 0.6 H 0.3 Baso # (Auto) (0.0 - 0.1 K/mm3) 0.1 0.1 Abs Immat Gran (auto) (0.00 - 0.03 x10 3/uL) 0.47 H 0.35 H Add Manual Diff (CRITERIA DIFF/SCN) NO NO Immature Gran % (0.0 - 5.0 %) 2.2 1.8 Nucleated RBC % (0.0 - 1.0 /100WBC%) 0.0 0.0 Radiology data:Recent Impressions:RADIOLOGY - XR CHEST 1 V 09/25 1155 Report Impression - Status: SIGNED Entered: 09/26/2022 0040 IMPRESSION: No significant interval change in faint left basilar atelectasis orpneumonia.Impression By: [email or web address] - Siobhan Friend M.D.RADIOLOGY - XR CHEST 1 V 09/26 0530 Report Impression - Status: SIGNED Entered: 09/26/2022 0627 IMPRESSION: 1. Interval placement of a right upper extremity PICC with tiplocated in mid SVC. No pneumothorax.2. Unchanged mild left basilar opacities, which may reflectatelectasis or pneumonia.Impression By: [id number] - Blake Ford M.D.RADIOLOGY - XR ABDOMEN 1 V 09/26 0927 Report Impression - Status: SIGNED Entered: 09/26/2022 1000 IMPRESSION:Nonobstructive bowel gas pattern.Impression By: [email or web address] - Abhinav Fajardo M.D. Diagnosis, Assessment PlanFree Text A P:ImpressionStatus post pacemaker, tachybradycardia syndrome, history of atrial fibrillationLeft hemothorax that was drainedRecurrent C. difficile colitis which is the third time nowChronic appearing lung parenchymal changes, recommend outpatient follow-up 4. Emphysema5. Hypertension6. Lidocaine allergy Discussion The patient was moved to ICU yesterday evening because her blood pressure remained in the 80s.She received 1 L of fluid and she is on lactated Ringer at this time. She has an acceptable urine output about 200 cc since this morning. She is requiring Levophed at low-dose. I will give her 1 more small bolus.I reviewed her history from pacemaker insertion followed by drainage of left hemothorax.She was noted to have C. difficile colitis during this hospital stay and her daughter thinks it is related to the antibiotic given for prophylaxis.She had C. difficile initially about 15 years ago then about a year ago and thenin August.She continues to have diarrhea and she has a rectal tube now.Her abdomen is tender only to palpation mostly in the left lower quadrant. She had been on full liquid diet.Her white blood cell count is up to 21,000.CT scan of the abdomen few days ago was negative.I just had her do a KUB that did not show dilated bowel.We will consult gastroenterology in addition to infectious diseases while addressing her C. difficile.Consider adding IV Flagyl. Consider repeat CT scan of the abdomen.Discussed with her daughter and discussed with the nursing staff. Critical caretime 32 minutes at 1014 [facility] #: [id number] OF REPORT PRProgress wveq8499-72-40A95:07:00L.[id number] able for patient kpzjASPXMDCFIUWMHJ2952-00-25A69:15:11 [facility] 2022-09-26 08:41:00 [id number] /PmwfYpbu1/i/AnMm2vgFmJl0zLVj 29FShYJSQD26v2JNo8UMSD+j6D91827-25-94V36:41:00 [facility] ([facility])Wound Care Consultation NoteREPORT#:[id number] REPORT STATUS: SignedDATE:09/26/22 TIME:0841 PATIENT: LESLEY BREAUX UNIT #: [id number]#: [id number] ROOM/BED: NIZ56-1OOP: 36 AGE: 87 SEX: F ATTEND: Gissel Ortega MD CardiologyADM AUTHOR: Karlo Francis MD * ALL edits or amendments must be made on the electronic/computer document * History of Present IllnessRequesting Clinician: Susan Bowman for consult:Wound CareHPI:Ms. Lesley Breaux is an 87 year old lady with hx of HTN, HLD, COPD, paroxysmalAfib, sick sinus syndrome, tachybrady syndome was admitted to the hospital for postoperative monitoring after PPM placement by Dr. Ortega today. Pt c/o mild chest wall pain at site of PPM History Past HistoryAllergies:Coded Allergies:fentanyl (Severe, COMA 09/16/22)Penicillins (Intermediate, HIVES 09/16/22)Sulfa (Sulfonamide Antibiotics) (Intermediate, MAKES HER PASS OUT 09/16/22)codeine (Intermediate, VOMITING 09/16/22)hydrocodone (Intermediate, VOMITING 09/16/22)meperidine (From DEMEROL) (Intermediate, THROW UP 09/16/22)morphine (Mild, HIVES 09/16/22)lidocaine (RASH-UNKNOWN 09/19/22) Unable to Obtain HistoryUnable to obtain due to: medical condition Review of SystemsUnable to obtain due to:medical condition ObjectiveVS/I O:Last Documented: Result Date Time Pulse Ox 97 [...] Output, Urine 375 General appearance: chronically ill appearingHead/Eyes: atraumaticNeck: no JVDCardiovascular: no rubRespiratory: on oxygenAbdomen: soft, non-tenderExtremities: no edemaMusculoskeletal: atrophy of the limbsSkin: rash (intertriginous) Wound AssessmentWound Assessment 1: Type/cause: pressure Wound location: buttock, sacral region Tissue layers: limited to skin breakdown Site condition: no drainage, no ecchymosis, no erythema Stage of pressure ulcer: stage II Diagnosis, Assessment PlanProblem List/A P: 1. Decubitus ulcer of sacral [...] per RN shift. 4. C. difficile diarrhea at 1021 RPT #: [id number] OF REPORT CMJwbsvxoavkju6148-22-17D48:41:00L.[id number] 022AVAvailable for patient aaivUAFKQZMEGQSKMB5159-82-07S75:21:21 [facility] 2022-09-26 08:40:00 [id number] Ru8AI/KfkA8rSzamrZAYr077w12bl Slz+pvr8aMPY3uB4f53e+Z7wiXL8295-20-95I11:40:00 [facility] ([facility]ospitalist Progress NoteREPORT#:[id number] REPORT STATUS: SignedDATE:09/26/22 TIME:0840 PATIENT: LESLEY BREAUX UNIT #: [id number]#: [id number] ROOM/BED: VOF51-7LDQ: 36 AGE: 87 SEX: F ATTEND: Gissel Ortega MD CardiologyADM AUTHOR: Art Tavera MD * ALL edits or amendments must be made on the electronic/computer document * SubjectiveChief complaint:Patient was hypotensive and had to be placed on LevophedTransferred to ICU Objective GeneralVS/I O:Vital Signs: Date Time Temp Pulse Resp B/P B/P Pulse O2 O2 Flow FiO2 Mean Ox Delivery Rate 08/20 0815 80 17 97/54 73 97 08/20 [...] 2049 88 24 109/43 62 98 08/19 2044 78 18 92/51 67 95 08/19 2029 87 20 85/43 61 96 08/19 2014 76 20 88/44 63 95 09/26 1999 97.3 09/26 1999 Nasal 2 cannula 09/26 1999 86 16 88/44 63 96 09/25 1945 82 18 96/46 66 95 09/25 1930 84 21 86/45 61 95 09/25 1915 78 22 76/38 54 95 09/25 1913 87 20 72/36 48 94 / 1912 83 20 66/35 45 94 09/25 1911 73 20 84/40 58 94 09/25 1900 80 18 87/51 66 94 09/25 1826 95 Nasal 2 28 cannula 09/25 1731 88 09/25 1700 75 20 75/41 53 95 09/25 1656 97.7 09/25 1600 80 21 89/53 69 95 09/25 1600 97.7 96 Nasal 2 cannula 09/25 1558 83 22 81/43 56 97 09/25 1500 75 20 87/51 66 94 09/25 1400 80 21 89/46 64 95 09/25 1300 80 24 98/52 72 98 09/25 1200 80 26 97/51 72 100 09/25 1200 98.1 95 2 09/25 1158 98.1 09/25 1142 82 21 108/53 76 09/25 1000 98 21 103/54 76 95 09/25 0913 95 Nasal 2 28 cannula 09/25 0900 98 22 111/52 75 96 24 hour I O ending at 0700: 09/26 0700 09/25 1900 Intake Total 1483.80 Output Total 375 Balance 1108.80 Intake, IV 1483.80 Output, Urine 375 PATIENT WEIGHT: Weight (lb): 99Weight (oz): 3.33Weight (kg): 45.000 Medications:Active Meds + DC'd Last 24 HrsMupirocin (BACTROBAN NASAL-ADULT ICU/STEVE MRSA PATIENTS) 1 APPLIC 0900,1700 NASAL Ondansetron HCl (ZOFRAN) 4 MG Q6H PRN PRN IV Norepinephrine Bitartrate (Levophed 16 MG/250 ML NS) 250 ML ASDIR IV Sodium Chloride (0.9% Sodium Chloride) 500 ML BOLUS IV (DC) Magnesium Sulfate/Dextrose (MAGNESIUM SULFATE 1 G IN DEXTROSE 5% 100 ML) 100 ML ONCE ONE IV (DC) Lactated Ringer's (LACTATED RINGERS) 1,000 ML .Q8H IV Sodium Chloride (0.9% Sodium Chloride) 500 ML BOLUS IV (DC) Lactobacillus Acidophilus (BACID) 1 CAP BID PO Fidaxomicin (DIFICID) 200 MG Q12HR PO Furosemide (LASIX 20MG INJ) 20 MG Q12HR IV Sodium Chloride (SODIUM CHLORIDE) 10 ML ASDIR IV Zolpidem Tartrate (AMBIEN) 5 MG BEDTIME PRN PRN PO Acetylcysteine (MUCOMYST 20% 4 ML) 200 MG RTQ6H NEB Iopamidol (ISOVUE-300) 100 ML ONCE PRN IV Sodium Chloride (0.9% Sodium Chloride) 50 ML ONCE PRN IV Tramadol HCl (ULTRAM) 25 MG Q4H PRN PRN PO Albuterol/Ipratropium (DUONEB) 3 ML RTQ6H PRN PRN NEB Iopamidol (ISOVUE-370) 100 ML ONCE PRN IV Losartan Potassium (COZAAR) 12.5 MG DAILY PO (DC) Atorvastatin Calcium (LIPITOR) 10 MG BEDTIME PO Carvedilol (COREG) 3.125 MG DAILY PO (DC) Sertraline HCl (ZOLOFT) 25 MG DAILY PO Acetaminophen (TYLENOL) 650 MG Q4H PRN PRN PO Ondansetron HCl (ZOFRAN ODT) 4 MG Q8H PRN PRN PO Sodium Chloride (SODIUM CHLORIDE) SALINE FLUSH ASDIR PRN IV Dietitian nutrition assessmentThe data set between the solid lines has been imported from the dietitian's assessment. BMI Calculated: 19.4Nutrition related diagnosis: Nutrition diagnosis details: Nutrition problem: Nutrition etiology: Nutrition signs and symptoms: Nutrition prescription: Dietitian name: Assessment completed: Physical ExamGeneral appearance: lethargic, alert, awakeHead/Eyes: atraumatic, normocephalicENT: dry mucosal membraneNeck: supple/no meningismusCardiovascular: normal heart sounds, regular rate rhythmRespiratory: decreased breath sounds, on oxygen, symmetric expansion, no distress, PPM site c/d/i, no overlying edema, erythema or warmthAbdomen: non-tender, softGenitourinary: no bladder distentionExtremities: moves all, no edemaMusculoskeletal: no CVA tendernessNeuro/BRIM WELT SEWING MACHINE OPERATOR: alert, normal speechSkin: dryPsychiatry: normal affect, normal mood ResultsFindings/Data:Laboratory Tests 09/26/22625:[Embedded Image Not Available] 09/25/222051:[Embedded Image Not Available] 09/24/22 1229:[Embedded Image Not Available]Laboratory Tests 09/26 Chemistry Sodium (134 - 147 [...] MG/DL) 2.3 1.7 L Laboratory Tests 09/26 Hematology WBC (3.5 - 11.0 K/mm3) 21.1 [...] - 51.1 %) 5.3 L 5.4 L [place] % (Auto) (1.7 - 9.3 %) 8.8 8.4 Eos % (Auto) (0.0 - 6.0 %) 3.0 1.6 Baso % (Auto) (0.0 - 2.0 %) 0.3 0.5 Neut # (Auto) (1.8 - 7.6 K/mm3) 16.9 H 16.1 H Lymph # (Auto) (0.6 - 3.2 K/mm3) 1.1 1.1 [place] # (Auto) (0.3 - 1.1 K/mm3) 1.9 H 1.6 H Eos # (Auto) (0.0 - 0.4 K/mm3) 0.6 H 0.3 Baso # (Auto) (0.0 - 0.1 K/mm3) 0.1 0.1 Abs Immat Gran (auto) (0.00 - 0.03 x10 3/uL) 0.47 H 0.35 H Add Manual Diff (CRITERIA DIFF/SCN) NO NO Immature Gran % (0.0 - 5.0 %) 2.2 1.8 Nucleated RBC % (0.0 - 1.0 /100WBC%) 0.0 0.0 Radiology data:Recent Impressions:RADIOLOGY - XR CHEST 1 V 09/25 1155 Report Impression - Status: SIGNED Entered: 09/26/2022 0040 IMPRESSION: No significant interval change in faint left basilar atelectasis orpneumonia.Impression By: Denny Friend M.D.RADIOLOGY - XR CHEST 1 V 09/26 0530 Report Impression - Status: SIGNED Entered: 09/26/2022 0627 IMPRESSION: 1. Interval placement of a right upper extremity PICC with tiplocated in mid SVC. No pneumothorax.2. Unchanged mild left basilar opacities, which may reflectatelectasis or pneumonia.Impression By: [email or web address] Jessika Ford M.D. Diagnosis, Assessment Plan Free Text DxA P NotesFree text DxA P notes:87 y/o female with PMHx of HTN, HLD, COPD, paroxysmal Afib, sick sinus syndrome,tachybrady syndome admitted for: Paroxysmal Afib, sick sinus syndrome, tachybrady syndrome s/p PPM placements/p PPM placement by Cardiology Dr. Ortega 09/18/22Continue to monitor under continuous telemetryMonitor PPM insertion sitePain control with Tylenol/Tramadol PRNContinue home coregHold home Eliquis due to anemia with possible hemothorax Complex moderate left pleural effusion / hemothorax, s/p R sided Cx tube in place with 600c of bloody fluid removedAppreciate pulm medicine, pain controlStatus post removal of the chest tube Acute normocytic anemia, possibly due to acute blood loss with possible hemothoraxStatus post transfusionMonitor H H closely Hypotension with a history of hypertensionHold home coreg, losartanTransferred to ICUStarted on LevophedWe will try to wean down to MAP of 65Added on midodrine COPDNot in acute exacerbationDuoneb tx PRN C. difficile colitisStarted on fidaxomicinID consultedContinues to have diarrheaAdd on probiotics HyponatremiaElectrolytes monitor and replace accordingly Acute kidney injuryRenal parameters monitored DVT prophylaxis with SCDs, held home Eliquis due to anemia Full code Total critical care time used was 38 minutes at 0848 RPT #: [id number] OF REPORT PRProgress mwir2073-78-17X36:40:00L.[id number] able for patient wdejUDCPDNGOOYBOHP3834-75-66N36:48:59 HCAPM 2022-09-25 19:35:00 [id number]+ rmLDin9jz2CcGqp1rbAbWVcXqb/Choudhary tR0ifGQ1EO+H8jJI4BEIaS5NsaT4639-18-67X98:35:00 [facility] ([facility])Clinical NoteREPORT#:[id number] REPORT STATUS: SignedDATE:09/25/22 TIME:1934 PATIENT: LESLEY BREAUX UNIT #: [id number]#: [id number] [address] AGE: 87 SEX: F ATTEND: Gissel Ortega MD CardiologyADM AUTHOR: Eliu Duarte * ALL edits or amendments must be made on the electronic/computer document * Clinical NoteNote:(NOT a rapid response case) Nursing reporting patient's low bp 75/41, trending down. Patient is seen and examined. Patient is alert and oriented x3, Trendelenburg position, not in distress. Denies chest pain or shortness of breath, O2 94% on NC. Denies dizziness, but saying "feel terrible". Per nursingand family , patient has not been eating well, has had 4 times of diarrhea today. She is C-diff positive. Patient has been on fluid restriction due to pleural effusion. She is s/p chest tube , a removal, had hemothorax, s/p transfusion. Patient is on diuretics as well. Neck, no JVD, CV RRR, Pul clear to auscultation, nonlabored breathing, abdomen soft, nontender, skin dry. Clinical impression: Hypotension due to hypovolemia secondary to dehydration. Place 500cc NV bolus and maintain with LR 125cc/h, closely monitoring respiratory status. Will get cbc, bmp. check renal parameter. Will get CXR for baseline at this moment as patient is getting IV fluids. Will hydrate and see her respond. Will consider ICU upgrade if not responding well. Target SBP 90-100mmHg. Hold all bp medications. May give diuretics if BP stabilized. Discussedwith nursing staff and family at bedside. at 1950 at 2128 RPT #: [id number] OF REPORT CLClinical zfmg0918-60-74X28:35:00L.[id number] able for patient ibcwCNEPIXNRCRVDNX7805-61-83Y99:50:55 [facility] 2022-09-25 11:05:00 [id number] Lsl7VU0inNn3ZGI2vbvuOw4NTzQ45 /BX/PiNnsr2fo10TMY0wWPnnD9q6401-97-35F10:05:00 [facility] ([facility])Hospitalist Progress NoteREPORT#:[id number] REPORT STATUS: SignedDATE:09/25/22 TIME:1105 PATIENT: LESLEY BREAUX UNIT #: [id number]#: [id number] [address] AGE: 87 SEX: F ATTEND: Gissel Ortega MD CardiologyADM AUTHOR: Art Tavera MD * ALL edits or amendments must be made on the electronic/computer document * SubjectiveChief complaint:No acute eventsFeeling slightly betterHPI:pt appears weak and frail today, c/o intermittent dizzinesstelemetry reviewed, pt has short intermittent pauses with HR as low as 31, cardiology notifiedlabs reviewed, Hgb trending down to 8.1 from 12.2 09/18/22will upgrade to IMCU for closer monitoring Objective GeneralVS/I O:Vital Signs: Temp Pulse Resp B/P B/P Pulse [...] Output, Urine 375 PATIENT WEIGHT: Weight (lb): 99Weight (oz): 3.33Weight (kg): 45.000 Medications:Active Meds + DC'd Last 24 HrsMupirocin (BACTROBAN NASAL-ADULT ICU/STEVE MRSA PATIENTS) 1 APPLIC 0900,1700 NASAL Ondansetron HCl (ZOFRAN) 4 MG Q6H PRN PRN IV Norepinephrine Bitartrate (Levophed 16 MG/250 ML NS) 250 ML ASDIR IV Sodium Chloride (0.9% Sodium Chloride) 500 ML BOLUS IV (DC) Magnesium Sulfate/Dextrose (MAGNESIUM SULFATE 1 G IN DEXTROSE 5% 100 ML) 100 ML ONCE ONE IV (DC) Lactated Ringer's (LACTATED RINGERS) 1,000 ML .Q8H IV Sodium Chloride (0.9% Sodium Chloride) 500 ML BOLUS IV (DC) Lactobacillus Acidophilus (BACID) 1 CAP BID PO Fidaxomicin (DIFICID) 200 MG Q12HR PO Furosemide (LASIX 20MG INJ) 20 MG Q12HR IV Sodium Chloride (SODIUM CHLORIDE) 10 ML ASDIR IV Zolpidem Tartrate (AMBIEN) 5 MG BEDTIME PRN PRN PO Acetylcysteine (MUCOMYST 20% 4 ML) 200 MG RTQ6H NEB Iopamidol (ISOVUE-300) 100 ML ONCE PRN IV Sodium Chloride (0.9% Sodium Chloride) 50 ML ONCE PRN IV Tramadol HCl (ULTRAM) 25 MG Q4H PRN PRN PO Albuterol/Ipratropium (DUONEB) 3 ML RTQ6H PRN PRN NEB Iopamidol (ISOVUE-370) 100 ML ONCE PRN IV Losartan Potassium (COZAAR) 12.5 MG DAILY PO (DC) Atorvastatin Calcium (LIPITOR) 10 MG BEDTIME PO Carvedilol (COREG) 3.125 MG DAILY PO (DC) Sertraline HCl (ZOLOFT) 25 MG DAILY PO Acetaminophen (TYLENOL) 650 MG Q4H PRN PRN PO Ondansetron HCl (ZOFRAN ODT) 4 MG Q8H PRN PRN PO Sodium Chloride (SODIUM CHLORIDE) SALINE FLUSH ASDIR PRN IV Dietitian nutrition assessmentThe data set between the solid lines has been imported from the dietitian's assessment. BMI Calculated: 19.4Nutrition related diagnosis: Nutrition diagnosis details: Nutrition problem: Nutrition etiology: Nutrition signs and symptoms: Nutrition prescription: Dietitian name: Assessment completed: Physical ExamGeneral appearance: chronically ill appearing, alert, awakeHead/Eyes: atraumatic, normocephalicENT: poor dentition, moist mucosal membranesCardiovascular: normal heart sounds, regular rate rhythmRespiratory: decreased breath sounds, on oxygen, symmetric expansion, no distress, PPM site c/d/i, no overlying edema, erythema or warmthAbdomen: non-tender, softExtremities: moves all, no edemaNeuro/BRIM WELT SEWING MACHINE OPERATOR: alert, normal speechPsychiatry: normal affect, normal mood ResultsFindings/Data:Laboratory Tests 09/25/222051:[Embedded Image Not Available] Radiology data:Recent Impressions:RADIOLOGY - XR CHEST 1 V 09/25 1155 Report Impression - Status: SIGNED Entered: 09/26/2022 0040 IMPRESSION: No significant interval change in faint left basilar atelectasis orpneumonia.Impression By: Denny - Mohammad Phuc, M.D. Diagnosis, Assessment Plan Free Text DxA P NotesFree text DxA P notes:87 y/o female with PMHx of HTN, HLD, COPD, paroxysmal Afib, sick sinus syndrome,tachybrady syndome admitted for: Paroxysmal Afib, sick sinus syndrome, tachybrady syndrome s/p PPM placements/p PPM placement by Cardiology Dr. Ortega 09/18/22Continue to monitor under continuous telemetryMonitor PPM insertion sitePain control with Tylenol/Tramadol PRNContinue home coregHold home Eliquis due to anemia with possible hemothorax Complex moderate left pleural effusion / hemothorax, s/p R sided Cx tube in place with 600c of bloody fluid removedAppreciate pulm medicine, pain controlStatus post removal of the chest tube Acute normocytic anemia, possibly due to acute blood loss with possible hemothoraxStatus post transfusionMonitor H H closely Hypotension with a history of hypertensionHold home coreg, losartan COPDNot in acute exacerbationDuoneb tx PRN C. difficile colitisStarted on fidaxomicinID consultedContinues to have diarrheaAdd on probiotics HyponatremiaElectrolytes monitor and replace accordingly Acute kidney injuryRenal parameters monitored DVT prophylaxis with SCDs, held home Eliquis due to anemia Full code Total critical care time used was 32minutes at 0850 RPT #: [id number] OF REPORT PRProgress lzdw2345-93-70T89:05:00L.[id number] able for patient ogzyLTYCGGGRLWXIFP7257-16-65K96:50:39 [facility] 2022-09-24 14:06:00 [id number] 0wHlzzzZ/R8hzSeCQP6B0G32icMI0 4efvA1PGzIckrNaai6BdVs0fxMa1991-23-40Y34:06:00 [facility] ([facility])Infect Disease Consult NoteREPORT#:[id number] REPORT STATUS: SignedDATE:09/24/22 TIME:1406 PATIENT: LESLEY BREAUX UNIT #: [id number]#: [id number] ROOM/BED: 310-1DOB: [birth year] AGE: 87 SEX: F ATTEND: Gissel Ortega MD CardiologyADM AUTHOR: Curtis Sun MD * ALL edits or amendments must be made on the electronic/computer document * See AddendumHistory of Present IllnessChief complaint:Recurrent C. diff.HPI:87 yo female with h/o HTN, HLD, COPD, paroxysmal Afib, sick sinus syndrome, tachybrady syndome who was admitted for postoperative monitoring after PPM placement by Dr. Ortega. Pt developed worsening intermittent diarrhea associated with abdominal cramps. C. diff test came back positive. Fidaxomicin ordered today. History - Adult longitudinalPast medical history:Reports: Hypertension. Additional medical history:None.Family history:Reports: Heart disease, Hypertension. Smoking status for patients 13 years old or older: Never SmokerAllergies:Coded Allergies:fentanyl (Severe, COMA 09/16/22)Penicillins (Intermediate, HIVES 09/16/22)Sulfa (Sulfonamide Antibiotics) (Intermediate, MAKES HER PASS OUT 09/16/22)codeine (Intermediate, VOMITING 09/16/22)hydrocodone (Intermediate, VOMITING 09/16/22)meperidine (From DEMEROL) (Intermediate, THROW UP 09/16/22)morphine (Mild, HIVES 09/16/22)lidocaine (RASH-UNKNOWN 09/19/22) Review of SystemsUnable to obtain due to:Poor historian. Objective GeneralVS/I O:Vital Signs Date Temp Pulse Resp B/P B/P Mean Pulse Ox FiO2 09/23-09/24 36.8-39.3 70-87 15-49 102-155/51-67 73-97 92-99 28 Last Documented: Result Date Time Temp 37.6 09/24 1321 Pulse Ox 92 09/24 0803 FiO2 28 09/24 0803 O2 Delivery Nasal cannula 09/24 0803 O2 Flow Rate 2 09/24 0803 B/P 115/53 09/24 0645 B/P Mean 77 09/24 0645 Pulse 71 09/24 0645 Resp 18 09/24 0645 Vital Signs: Date Time Temp Pulse Resp B/P B/P Pulse O2 O2 Flow FiO2 Mean Ox Delivery Rate 09/24 1321 [...] 08/18 0145 73 20 115/56 81 95 08/18 0130 71 20 112/54 78 96 08/18 0115 71 20 122/58 83 97 08/18 0100 71 19 113/56 80 97 08/18 0030 71 20 109/51 73 97 08/18 0015 75 20 120/58 83 96 08/18 0003 36.9 08/18 0000 74 21 102/51 73 95 08/17 2245 74 22 110/53 77 94 /17 2230 73 22 110/52 75 95 08/17 2215 74 20 121/59 85 95 /17 2200 76 21 126/61 88 96 08/17 2145 75 20 125/60 86 98 /17 2130 75 19 133/59 85 99 /17 2115 74 26 123/59 85 98 08/17 2100 75 20 116/55 79 95 /17 2000 37.1 09/24 1999 Nasal 2 cannula 09/23 1953 37.5 / 1922 95 Nasal 2 cannula 09/23 1900 38.0 / 1900 83 31 132/59 85 94 /17 1856 83 /17 1845 84 21 120/57 82 94 /17 1830 83 18 121/57 82 95 / 1800 87 33 153/67 97 97 /17 1723 87 49 140/63 91 96 /17 1700 85 36 151/67 96 93 / 1638 39.3 26 / 1637 38.7 28 / 1630 85 32 144/64 92 96 08/ 1600 84 26 155/67 96 99 24 hour I O ending at 0700: 09/24 0700 09/23 1900 Intake Total 440 920.00 Output Total 1250 10 Balance -810 910.00 Intake, IV 20.00 Intake, Oral 440 700 Intake, Oral 200 Supplement Number 6 1 Bowel Movements Output, Chest 10 Tube Drainage Output, Urine 1250 PATIENT WEIGHT: Weight (lb): 99Weight (oz): 3.33Weight (kg): 45.000 Physical ExamGeneral appearance: chronically ill appearing, frail, awake, no respiratory distressHead/Eyes: atraumatic, clear cornea, EOMI, normal conjunctiva/sclera, normal eyelids/periorb, normocephalicENT: moist mucosal membranes, normal noseNeck: full range of motion, non-tender, supple/no meningismusCardiovascular: regular rate rhythmRespiratory: symmetric expansion, no distressAbdomen: non-tender, normal bowel sounds, soft, no CVA tenderness, no distention, no guarding, no mass/organomegalyGenitourinary: no flank painExtremities: normal temperature, no cyanosisNeuro/BRIM WELT SEWING MACHINE OPERATOR: alert, normal speechSkin: normal turgor, no rashPsychiatry: normal affect, normal mood Diagnosis, Assessment Plan Free Text DxA P NotesFree text DxA P notes:Laboratory Tests 09/24/22 1229:[Embedded Image Not Available] 09/23/22 0333:[Embedded Image Not Available] Imaging:CXR reviewed 09/24CTAP reviewed 09/20 Assessment:1. Recurrent C. difficile colitis.2. SIRS (fever, leukocytosis) likely due to above.3. Left pleural effusion s/p chest tube removal.4. S/p pacemaker placement 09/18/22.5. Allergy to penicillin (hives) and sulfas (passed out). Plan:1. Fidaxomicin (day 1 of 10).2. Avoid systemic abxs if possible.3. Monitor CBC.4. Monitor kidney function.5. Pulmonary following.6. Contact isolation.7. Case discussed with hospitalist. Thank you for this consult. at 6327 Addendum 1: 09/25/22 1146 by Curtis Sun MD Pt reports having C. diff in the past. at 1146 RPT #: [id number] OF REPORT XWRzkzfurqcvyk9813-61-07F73:06:00L.[id number] 168AVAvailable for patient bkfjWLHFFPLFWLUZYA4892-89-28O87:44:04 [facility] 2022-09-24 12:15:00 [id number] /WpurPNm4pano0NrMqL08sB+ck3c6 qQmngtwd9K9hU8uNVpirDhpYqeB0883-00-34R54:15:00 [facility] ([facility])Pulmonology Progress NoteREPORT#:[id number] REPORT STATUS: SignedDATE:09/24/22 TIME:1215 PATIENT: LESLEY BREAUX UNIT #: [id number]#: [id number] [address] [birth year] AGE: 87 SEX: F ATTEND: Gissel Ortega MD CardiologyADM AUTHOR: Mauro Arce MD * ALL edits or amendments must be made on the electronic/computer document * SubjectiveChief complaint:abdominal pain and diarrheaImproved Left-sided chest pain, no shortness of breathHPI:Pleasant 87-year-old lady who underwent pacemaker placement yesterday for tachybradycardia syndrome.She was having more shortness of breath and left-sided chest pain for which a CTangiogram of the chest was done, see full report.Images reviewed and discussed with patient and granddaughter.There is a small to moderate size left pleural effusion with different densitiessuggesting possible blood product. There are also chronic appearing reticular nodular, tree-in-bud type peripheral mostly lower zone infiltrates right more than left, no prior CT images to compare.The patient denies much in the way of chronic sputum fevers chills sweats or significant weight loss.The patient has emphysema has seen pulmonary doctors in the outpatient setting at [facility] but never smoked.Except described above, review of systems x14 is negative and normal. Review of Systems ROSAllergy/Immun:Denies: anaphylaxis, hives. ENT:Denies: hearing loss, mouth pain. GI:Reports: abdominal pain, diarrhea. Denies: hematemesis, hematochezia. Neuro:Denies: numbness, seizure. Objective GeneralVS/I O:Last Documented: Result Date Time Temp 36.8 09/24 08 Pulse Ox 92 09/24 802 FiO2 28 09/24 802 O2 Delivery Nasal cannula 09/24 802 O2 Flow Rate 2 09/24 802 B/P 115/53 09/24 0645 B/P Mean 77 [...] Output, Urine 1250 PATIENT WEIGHT: Weight (lb): 99Weight (oz): 3.33Weight (kg): 45.000 Medications:Active Meds + DC'd Last 24 HrsFidaxomicin (DIFICID) 200 MG Q12HR PO Furosemide (LASIX 20MG INJ) 20 MG Q12HR IV Hydromorphone HCl (DILAUDID) 0.5 MG Q6H PRN PRN IV (DC) Sodium Chloride (SODIUM CHLORIDE) 10 ML ASDIR IV Zolpidem Tartrate (AMBIEN) 5 MG BEDTIME PRN PRN PO Acetylcysteine (MUCOMYST 20% 4 ML) 200 MG RTQ6H NEB Cefazolin Sodium (KEFZOL) 1 GM Q8HR IV (DC) Sterile Water (WATER FOR INJECTION) 10 MLIopamidol (ISOVUE-300) 100 ML ONCE PRN IV Sodium Chloride (0.9% Sodium Chloride) 50 ML ONCE PRN IV Tramadol HCl (ULTRAM) 25 MG Q4H PRN PRN PO Albuterol/Ipratropium (DUONEB) 3 ML RTQ6H PRN PRN NEB Iopamidol (ISOVUE-370) 100 ML ONCE PRN IV Losartan Potassium (COZAAR) 12.5 MG DAILY PO Atorvastatin Calcium (LIPITOR) 10 MG BEDTIME PO Carvedilol (COREG) 3.125 MG DAILY PO Sertraline HCl (ZOLOFT) 25 MG DAILY PO Acetaminophen (TYLENOL) 650 MG Q4H PRN PRN PO Ondansetron HCl (ZOFRAN ODT) 4 MG Q8H PRN PRN PO Sodium Chloride (SODIUM CHLORIDE) SALINE FLUSH ASDIR PRN IV Physical ExamHead/eyes: atraumatic, normocephalic, normal conjunctiva/scleraENT: ENT: moist mucosal membranes, normal pharynxNeck: non-tender, supple/no meningismusCardiovascular: normal S1/S2, regular rate rhythmRespiratory/chest: decreased breath sounds, on oxygen, rales, bandage, slingAbdomen: soft, non-tenderExtremities: edema, no clubbing, no cyanosisMusculoskeletal: normal inspection, no muscle spasmNeuro/BRIM WELT SEWING MACHINE OPERATOR: alert, oriented X 3, no motor deficitsSkin: dry, intactLymphatics: neck normal, no lymphadenopathy ResultsFindings/Data:Laboratory Tests 09/24 Chemistry POC Glucose (70 - 110 mg/dL) 112 H 144 H Radiology data:Recent Impressions:RADIOLOGY - XR CHEST 1 V 09/23 1726 Report Impression - Status: SIGNED Entered: 09/23/2022 174 IMPRESSION:Interval removal of the left-sided pigtail catheter. No pneumothorax.Impression By: Linwood Padilla MDRADIOLOGY - XR CHEST 1 V 09/25 823 Report Impression - Status: SIGNED Entered: 09/24/2022 0922 IMPRESSION: Minimal patchy opacity left lung base. This could be due toatelectasis or pneumonia. There is a tiny left pleural effusion. Compared to the prior exam, there has been no significant change. Impression By: Skyler Chapman M.D. Diagnosis, Assessment PlanFree Text A P:Impression 1. Left pleural effusion apparently new blood layering densities, unclear etiology2. Chronic appearing lung parenchymal changes, recommend outpatient follow-upEvaluation, she can follow-up with her pulmonary doctor that has she has recently seen in the office3. Status post pacemaker, tachybradycardia syndrome, history of atrial fibrillation4. Emphysema5. Hypertension6. Lidocaine allergy DiscussionThe patient is allergic to lidocaine, states that she developed diffuse rash, hives, welts however this was many years ago after a dental procedure but she isnot sure of the exact details.I spoke with nursing staff as well as pharmacist regarding alternative topical anesthetics of a different class than lidocaine however this is not available here. Due to patient's poor respiratory status and lack of monitoring and resources of the weekend would like to avoid systemic sedation as was done with pacemaker placement. She is also allergic to opiates. Recommendation 1. Consultation with interventional radiology and pharmacy and possibly anesthesia to conduct left diagnostic and therapeutic thoracentesis tomorrow. She will need closer monitoring.2. Send pleural fluid for analysis3. Follow-up imaging4. Patient advised to follow-up with her pulmonary doctor in the outpatient setting in regards to the abnormal CT chest that seen her as far as the lung parenchymal changes 09/20 Reviewed her imaging studies evidence of moderate effusion with possible left lower lobe atelectasisBoth do not explain the drop in hemoglobin [address] abdomen and pelvisPPI IVChest PT using a flutter device and Mucomyst twice dailyThoracentesis by IR orderedIncentive spirometryIV antibioticsFollow-up imaging studies of the chest 09/21 Patient has severe pain with continuing to have dropping hemoglobinI did an ultrasound showed evidence of effusionI placed chest tubeBloody fluid was notedI drained [address] under suction for the next 24 hoursIf stable in a.m. we will remove Kandace give the patient Dilaudid 0.25 mgWe will give 2 units packed RBC 09/22 sp severe pain with continuing to have dropping hemoglobinI did an ultrasound showed evidence of effusionsp[ chest tubesp blood tranusionstable HHfollow up CXR Follow up IO 09/23 sp severe pain with continuing to have dropping hemoglobinsp chest tube minimal outputsp blood tranusionstable HHfollow up CXR improving remove chest tubeFollow up IOOK for DC from pulmonary stand point 09/24 sp chest tube removal CXR reviewedd and stable DiarrheaOn treatmentssp blood tranusionstable HHfollow up CXR improving Follow up IOstable pulmonary status at 1221 RPT #: [id number] OF REPORT PRProgress [id number]:15:00L.[id number] able for patient zqnbZEGXUHWXDKIOZV2528-22-88T82:22:18 [facility] 2022-09-24 10:33:00 [id number] cwcnER03egIIIafqR9GsinbhkTV9109-33-92O70:33:00 [facility] ([facility])Hospitalist Progress NoteREPORT#:[id number] REPORT STATUS: SignedDATE:09/24/22 TIME:1033 PATIENT: LESLEY BREAUX UNIT #: [id number]#: [id number] [address] AGE: 87 SEX: F ATTEND: Gissel Ortega MD CardiologyADM AUTHOR: Art Tavera MD * ALL edits or amendments must be made on the electronic/computer document * SubjectiveChief complaint: dressing in place, no nausea, no vomiting,no feverHPI:pt appears weak and frail today, c/o intermittent dizzinesstelemetry reviewed, pt has short intermittent pauses with HR as low as 31, cardiology notifiedlabs reviewed, Hgb trending down to 8.1 from 12.2 09/18/22will upgrade to IMCU for closer monitoring Objective GeneralVS/I O:Vital Signs: Temp Pulse Resp B/P B/P Pulse [...] 111/52 75 96 PATIENT WEIGHT: Weight (lb): 99Weight (oz): 3.33Weight (kg): 45.000 Medications:Active Meds + DC'd Last 24 HrsMupirocin (BACTROBAN NASAL-ADULT ICU/STEVE MRSA PATIENTS) 1 APPLIC 0900,1700 NASAL Ondansetron HCl (ZOFRAN) 4 MG Q6H PRN PRN IV Norepinephrine Bitartrate (Levophed 16 MG/250 ML NS) 250 ML ASDIR IV Sodium Chloride (0.9% Sodium Chloride) 500 ML BOLUS IV (DC) Magnesium Sulfate/Dextrose (MAGNESIUM SULFATE 1 G IN DEXTROSE 5% 100 ML) 100 ML ONCE ONE IV (DC) Lactated Ringer's (LACTATED RINGERS) 1,000 ML .Q8H IV Sodium Chloride (0.9% Sodium Chloride) 500 ML BOLUS IV (DC) Lactobacillus Acidophilus (BACID) 1 CAP BID PO Fidaxomicin (DIFICID) 200 MG Q12HR PO Furosemide (LASIX 20MG INJ) 20 MG Q12HR IV Sodium Chloride (SODIUM CHLORIDE) 10 ML ASDIR IV Zolpidem Tartrate (AMBIEN) 5 MG BEDTIME PRN PRN PO Acetylcysteine (MUCOMYST 20% 4 ML) 200 MG RTQ6H NEB Iopamidol (ISOVUE-300) 100 ML ONCE PRN IV Sodium Chloride (0.9% Sodium Chloride) 50 ML ONCE PRN IV Tramadol HCl (ULTRAM) 25 MG Q4H PRN PRN PO Albuterol/Ipratropium (DUONEB) 3 ML RTQ6H PRN PRN NEB Iopamidol (ISOVUE-370) 100 ML ONCE PRN IV Losartan Potassium (COZAAR) 12.5 MG DAILY PO (DC) Atorvastatin Calcium (LIPITOR) 10 MG BEDTIME PO Carvedilol (COREG) 3.125 MG DAILY PO (DC) Sertraline HCl (ZOLOFT) 25 MG DAILY PO Acetaminophen (TYLENOL) 650 MG Q4H PRN PRN PO Ondansetron HCl (ZOFRAN ODT) 4 MG Q8H PRN PRN PO Sodium Chloride (SODIUM CHLORIDE) SALINE FLUSH ASDIR PRN IV Dietitian nutrition assessmentThe data set between the solid lines has been imported from the dietitian's assessment. BMI Calculated: 19.4Nutrition related diagnosis: Nutrition diagnosis details: Nutrition problem: Nutrition etiology: Nutrition signs and symptoms: Nutrition prescription: Dietitian name: Assessment completed: Physical ExamGeneral appearance: frail, alert, awakeHead/Eyes: atraumatic, normocephalicENT: poor dentition, moist mucosal membranesCardiovascular: normal heart sounds, regular rate rhythmRespiratory: decreased breath sounds, on oxygen, symmetric expansion, no distress, PPM site c/d/i, no overlying edema, erythema or warmthAbdomen: non-tender, softExtremities: moves all, no edemaNeuro/BRIM WELT SEWING MACHINE OPERATOR: alert, normal speechPsychiatry: normal affect, normal mood ResultsFindings/Data:Laboratory Tests 09/24/22 1229:[Embedded Image Not Available] Diagnosis, Assessment Plan Free Text DxA P NotesFree text DxA P notes:87 y/o female with PMHx of HTN, HLD, COPD, paroxysmal Afib, sick sinus syndrome,tachybrady syndome admitted for: #Paroxysmal Afib, sick sinus syndrome, tachybrady syndrome s/p PPM placements/p PPM placement by Cardiology Dr. Ortega 09/18/22Continue to monitor under continuous telemetryMonitor PPM insertion sitePain control with Tylenol/Tramadol PRNContinue home coregHold home Eliquis due to anemia with possible hemothorax #Complex moderate left pleural effusion / hemothorax, s/p R sided Cx tube in place with 600c of bloody fluid removed - appreciate pulm medicine, pain control #Acute normocytic anemia, possibly due to acute blood loss with possible hemothoraxbeing transfused PRBCs today #HypertensionContinue home coreg, losartanIV hydralazine PRN #Hx of COPDNot in acute exacerbationDuoneb tx PRN DVT prophylaxis with SCDs, held home Eliquis due to anemia with possible hemothorax Full code Ct tube in place , called and left msg for daughter Taylor [phone] Clamping chest tube appreciate help from pulmonology discussed about the findingsC. difficile still pendingAs the patient continues to have diarrheaHistory of C. difficile previously treated with vancomycin and Flagyl and fidaxomicinWe will start on fidaxomicin empirically Total critical care time used was 38 minutes at 0858 RPT #: [id number] OF REPORT PRProgress bywl2631-63-67G77:33:00L.[id number] able for patient ozdgLIBQBEBUQEGJFH7833-33-79F72:58:40 [facility] 2022-09-23 11:59:00 [id number]rUUr TCVqi/WC3UaBSeei/88fa6mbysy0140-47-73X47:59:00 [facility] ([facility])Pulmonology Progress NoteREPORT#:[id number] REPORT STATUS: SignedDATE:09/23/22 TIME:1159 PATIENT: LESLEY BREAUX UNIT #: [id number]#: [id number] [address] AGE: 87 SEX: F ATTEND: Gissel Ortega MD CardiologyADM AUTHOR: Mauro Arce MD * ALL edits or amendments must be made on the electronic/computer document * SubjectiveChief complaint:improvinmg Left-sided chest pain, no shortness of breathHPI:Pleasant 87-year-old lady who underwent pacemaker placement yesterday for tachybradycardia syndrome.She was having more shortness of breath and left-sided chest pain for which a CTangiogram of the chest was done, see full report.Images reviewed and discussed with patient and granddaughter.There is a small to moderate size left pleural effusion with different densitiessuggesting possible blood product. There are also chronic appearing reticular nodular, tree-in-bud type peripheral mostly lower zone infiltrates right more than left, no prior CT images to compare.The patient denies much in the way of chronic sputum fevers chills sweats or significant weight loss.The patient has emphysema has seen pulmonary doctors in the outpatient setting at [facility] but never smoked.Except described above, review of systems x14 is negative and normal. Review of Systems ROSAll systems rev neg: except as marked Objective GeneralVS/I O:Last Documented: Result Date Time Pulse 74 09/23 [...] Urine 100 300 PATIENT WEIGHT: Weight (lb): 99Weight (oz): 3.33Weight (kg): 45.000 Medications:Active Meds + DC'd Last 24 HrsHydromorphone HCl (DILAUDID) 0.5 MG Q6H PRN PRN IV Sodium Chloride (SODIUM CHLORIDE) 10 ML ASDIR IV Sodium Chloride (0.9% Sodium Chloride) 500 ML ONCE ONE IV (DC) Zolpidem Tartrate (AMBIEN) 5 MG BEDTIME PRN PRN PO Acetylcysteine (MUCOMYST 20% 4 ML) 200 MG RTQ6H NEB Cefazolin Sodium (KEFZOL) 1 GM Q8HR IV Sterile Water (WATER FOR INJECTION) 10 MLIopamidol (ISOVUE-300) 100 ML ONCE PRN IV Sodium Chloride (0.9% Sodium Chloride) 50 ML ONCE PRN IV Tramadol HCl (ULTRAM) 25 MG Q4H PRN PRN PO Albuterol/Ipratropium (DUONEB) 3 ML RTQ6H PRN PRN NEB Iopamidol (ISOVUE-370) 100 ML ONCE PRN IV Losartan Potassium (COZAAR) 12.5 MG DAILY PO Atorvastatin Calcium (LIPITOR) 10 MG BEDTIME PO Carvedilol (COREG) 3.125 MG DAILY PO Sertraline HCl (ZOLOFT) 25 MG DAILY PO Acetaminophen (TYLENOL) 650 MG Q4H PRN PRN PO Ondansetron HCl (ZOFRAN ODT) 4 MG Q8H PRN PRN PO Sodium Chloride (SODIUM CHLORIDE) SALINE FLUSH ASDIR PRN IV Physical ExamHead/eyes: atraumatic, normocephalic, normal conjunctiva/scleraENT: ENT: moist mucosal membranes, normal pharynxNeck: non-tender, supple/no meningismusCardiovascular: normal S1/S2, regular rate rhythmRespiratory/chest: decreased breath sounds, on oxygen, rales, bandage, slingAbdomen: soft, non-tenderExtremities: edema, no clubbing, no cyanosisMusculoskeletal: normal inspection, no muscle spasmNeuro/BRIM WELT SEWING MACHINE OPERATOR: alert, oriented X 3, no motor deficitsSkin: dry, intactLymphatics: neck normal, no lymphadenopathy ResultsFindings/Data:Laboratory Tests 09/23/22332:[Embedded Image Not Available]Laboratory Tests 09/23 Chemistry Sodium (134 - 147 mmol/L) 135 Potassium (3.4 - 5.0 mmol/L) 3.7 Chloride (100 - 108 mmol/L) 101 Carbon Dioxide (21 - 32 mmol/L) 31 Anion Gap (4.0 - 15.0 GAP calc) 3.0 L BUN (7 - 18 MG/DL) 41 H Creatinine (0.6 - 1.0 MG/DL) 0.9 Glomerular Filtr Rate (>60 estGFR) >=60 max estimate Glucose (70 - 110 MG/DL) 121 H POC Glucose (70 - 110 mg/dL) 140 H Calcium (8.5 - 10.1 MG/DL) 8.6 Laboratory Tests 09/23 332 Hematology WBC (3.5 - 11.0 K/mm3) 12.7 [...] (Auto) (20.5 - 51.1 %) 7.1 L Erath % (Auto) (1.7 - 9.3 %) 6.9 Eos % (Auto) (0.0 - 6.0 %) 3.6 Baso % (Auto) (0.0 - 2.0 %) 0.2 Neut # (Auto) (1.8 - 7.6 K/mm3) 10.4 H Lymph # (Auto) (0.6 - 3.2 K/mm3) 0.9 Erath # (Auto) (0.3 - 1.1 K/mm3) 0.9 Eos # (Auto) (0.0 - 0.4 K/mm3) 0.5 H Baso # (Auto) (0.0 - 0.1 K/mm3) 0.0 Abs Immat Gran (auto) (0.00 - 0.03 x10 3/uL) 0.06 H Add Manual Diff (CRITERIA DIFF/SCN) NO Immature Gran % (0.0 - 5.0 %) 0.5 Nucleated RBC % (0.0 - 1.0 /100WBC%) 0.0 Diagnosis, Assessment PlanFree Text A P:Impression 1. Left pleural effusion apparently new blood layering densities, unclear etiology2. Chronic appearing lung parenchymal changes, recommend outpatient follow-upEvaluation, she can follow-up with her pulmonary doctor that has she has recently seen in the office3. Status post pacemaker, tachybradycardia syndrome, history of atrial fibrillation4. Emphysema5. Hypertension6. Lidocaine allergy DiscussionThe patient is allergic to lidocaine, states that she developed diffuse rash, hives, welts however this was many years ago after a dental procedure but she isnot sure of the exact details.I spoke with nursing staff as well as pharmacist regarding alternative topical anesthetics of a different class than lidocaine however this is not available here. Due to patient's poor respiratory status and lack of monitoring and resources of the weekend would like to avoid systemic sedation as was done with pacemaker placement. She is also allergic to opiates. Recommendation 1. Consultation with interventional radiology and pharmacy and possibly anesthesia to conduct left diagnostic and therapeutic thoracentesis tomorrow. She will need closer monitoring.2. Send pleural fluid for analysis3. Follow-up imaging4. Patient advised to follow-up with her pulmonary doctor in the outpatient setting in regards to the abnormal CT chest that seen her as far as the lung parenchymal changes 09/20 Reviewed her imaging studies evidence of moderate effusion with possible left lower lobe atelectasisBoth do not explain the drop in hemoglobin [address] abdomen and pelvisPPI IVChest PT using a flutter device and Mucomyst twice dailyThoracentesis by IR orderedIncentive spirometryIV antibioticsFollow-up imaging studies of the chest 09/21 Patient has severe pain with continuing to have dropping hemoglobinI did an ultrasound showed evidence of effusionI placed chest tubeBloody fluid was notedI drained [address] under suction for the next 24 hoursIf stable in a.m. we will remove Kandace give the patient Dilaudid 0.25 mgWe will give 2 units packed RBC 09/22 sp severe pain with continuing to have dropping hemoglobinI did an ultrasound showed evidence of effusionsp[ chest tubesp blood tranusionstable HHfollow up CXR Follow up IO 09/23 sp severe pain with continuing to have dropping hemoglobinsp chest tube minimal outputsp blood tranusionstable HHfollow up CXR improving remove chest tubeFollow up IOOK for DC from pulmonary stand point at 1201 RPT #: [id number] OF REPORT PRProgress [id number]:59:00L.[id number] able for patient zxcqTQZXNZXLKXDXFP4628-71-18M79:01:49 [facility] 2022-09-23 11:31:00 [id number] IAMZe5OuWpSEbmXt+nGCFLae6+i4286-91-80B34:31:00 [facility] Progress NoteREPORT#:[id number] REPORT STATUS: SignedDATE:09/23/22 TIME:1131 PATIENT: LESLEY BREAUX UNIT #: [id number]#: [id number] [address] AGE: 87 SEX: F ATTEND: Gissel Ortega MD CardiologyADM AUTHOR: Art Tavera MD * ALL edits or amendments must be made on the electronic/computer document * SubjectiveChief complaint:c/p R sided chest pain, better, dressing in place, no nausea, no vomiting, no feverHPI:pt appears weak and frail today, c/o intermittent dizzinesstelemetry reviewed, pt has short intermittent pauses with HR as low as 31, cardiology notifiedlabs reviewed, Hgb trending down to 8.1 from 12.2 09/18/22will upgrade to IMCU for closer monitoring Objective GeneralVS/I O:Vital Signs: Temp Pulse Resp B/P B/P Pulse [...] Output, Urine 375 PATIENT WEIGHT: Weight (lb): 99Weight (oz): 3.33Weight (kg): 45.000 Medications:Active Meds + DC'd Last 24 HrsMupirocin (BACTROBAN NASAL-ADULT ICU/STEVE MRSA PATIENTS) 1 APPLIC 0900,1700 NASAL Ondansetron HCl (ZOFRAN) 4 MG Q6H PRN PRN IV Norepinephrine Bitartrate (Levophed 16 MG/250 ML NS) 250 ML ASDIR IV Sodium Chloride (0.9% Sodium Chloride) 500 ML BOLUS IV (DC) Magnesium Sulfate/Dextrose (MAGNESIUM SULFATE 1 G IN DEXTROSE 5% 100 ML) 100 ML ONCE ONE IV (DC) Lactated Ringer's (LACTATED RINGERS) 1,000 ML .Q8H IV Sodium Chloride (0.9% Sodium Chloride) 500 ML BOLUS IV (DC) Lactobacillus Acidophilus (BACID) 1 CAP BID PO Fidaxomicin (DIFICID) 200 MG Q12HR PO Furosemide (LASIX 20MG INJ) 20 MG Q12HR IV Sodium Chloride (SODIUM CHLORIDE) 10 ML ASDIR IV Zolpidem Tartrate (AMBIEN) 5 MG BEDTIME PRN PRN PO Acetylcysteine (MUCOMYST 20% 4 ML) 200 MG RTQ6H NEB Iopamidol (ISOVUE-300) 100 ML ONCE PRN IV Sodium Chloride (0.9% Sodium Chloride) 50 ML ONCE PRN IV Tramadol HCl (ULTRAM) 25 MG Q4H PRN PRN PO Albuterol/Ipratropium (DUONEB) 3 ML RTQ6H PRN PRN NEB Iopamidol (ISOVUE-370) 100 ML ONCE PRN IV Losartan Potassium (COZAAR) 12.5 MG DAILY PO (DC) Atorvastatin Calcium (LIPITOR) 10 MG BEDTIME PO Carvedilol (COREG) 3.125 MG DAILY PO (DC) Sertraline HCl (ZOLOFT) 25 MG DAILY PO Acetaminophen (TYLENOL) 650 MG Q4H PRN PRN PO Ondansetron HCl (ZOFRAN ODT) 4 MG Q8H PRN PRN PO Sodium Chloride (SODIUM CHLORIDE) SALINE FLUSH ASDIR PRN IV Physical ExamGeneral appearance: alertHead/Eyes: atraumatic, normocephalicENT: poor dentition, moist mucosal membranesCardiovascular: normal heart sounds, regular rate rhythmRespiratory: decreased breath sounds, on oxygen, symmetric expansion, no distress, PPM site c/d/i, no overlying edema, erythema or warmthAbdomen: non-tender, softExtremities: moves all, no edemaNeuro/BRIM WELT SEWING MACHINE OPERATOR: alert, normal speechPsychiatry: normal affect, normal mood Diagnosis, Assessment Plan Free Text DxA P NotesFree text DxA P notes:87 y/o female with PMHx of HTN, HLD, COPD, paroxysmal Afib, sick sinus syndrome,tachybrady syndome admitted for: #Paroxysmal Afib, sick sinus syndrome, tachybrady syndrome s/p PPM placements/p PPM placement by Cardiology Dr. Ortega 09/18/22Continue to monitor under continuous telemetryMonitor PPM insertion sitePain control with Tylenol/Tramadol PRNContinue home coregHold home Eliquis due to anemia with possible hemothorax #Complex moderate left pleural effusion / hemothorax, s/p R sided Cx tube in place with 600c of bloody fluid removed - appreciate pulm medicine, pain control #Acute normocytic anemia, possibly due to acute blood loss with possible hemothoraxbeing transfused PRBCs today #HypertensionContinue home coreg, losartanIV hydralazine PRN #Hx of COPDNot in acute exacerbationDuoneb tx PRN DVT prophylaxis with SCDs, held home Eliquis due to anemia with possible hemothorax Full code Ct tube in place , called and left msg for daughter Taylor [phone] at 0858 RPT #: [id number] OF REPORT PRProgress [id number]:31:00L.[id number] able for patient bfscTPZWVIIZCDOUPX0272-21-72K93:59:00 [facility] 2022-09-22 14:04:00 [id number] 70S8jnyzhtWmx/FF/+6D1xtbt7oNP 50t0i5/6Jh9p+vIu2CqNYI8blXW0845-04-36T89:04:00 [facility] Progress NoteREPORT#:[id number] REPORT STATUS: SignedDATE:09/22/22 TIME:1404 PATIENT: LESLEY BREAUX UNIT #: [id number]#: [id number] [address] AGE: 87 SEX: F ATTEND: Gissel Ortega MD CardiologyADM AUTHOR: Tejinder Toribio MD * ALL edits or amendments must be made on the electronic/computer document * SubjectiveChief complaint:c/p R sided chest pain, better, dressing in place, no nausea, no vomiting, no feverHPI:pt appears weak and frail today, c/o intermittent dizzinesstelemetry reviewed, pt has short intermittent pauses with HR as low as 31, cardiology notifiedlabs reviewed, Hgb trending down to 8.1 from 12.2 09/18/22will upgrade to IMCU for closer monitoring Objective GeneralVS/I O:Vital Signs: Date Time Temp Pulse Resp B/P B/P Pulse O2 O2 Flow FiO2 Mean Ox Delivery Rate 09/22 1204 99.0 09/22 0900 Nasal 2 cannula 09/22 0824 98.2 09/22 0727 100 Nasal 2 28 cannula 09/22 0630 78 57 109/52 75 100 /16 0600 73 78 118/58 83 100 /16 0530 87 67 116/56 76 100 08/16 0500 75 47 106/52 75 99 /16 0430 77 49 107/52 75 99 /16 0400 98.0 /16 0400 78 40 120/56 80 100 08/16 0330 77 46 109/51 73 99 /16 0300 79 33 112/53 76 99 08/16 0230 97.6 /16 0230 78 49 109/52 75 100 08/16 [...] 2350 97.6 08/15 2323 Nasal 2 cannula / 2300 78 55 94/48 69 100 08/15 2219 79 20 90/51 64 98 08/15 2130 82 14 95/46 66 97 08/15 2100 82 13 104/51 73 99 08/15 2030 83 12 106/50 72 99 08/15 2000 84 16 118/56 81 100 /15 1945 97.7 /15 1930 85 14 102/48 69 99 08/15 1900 84 17 112/53 76 100 08/15 1847 100 Nasal 5 60 cannula 09/21 1830 98.3 84 20 117/56 100 /15 1800 85 29 124/56 81 99 08/15 1730 98.3 84 15 136/61 99 08/15 1700 91 16 144/63 90 100 /15 1630 99.1 96 18 107/54 97 /15 1600 120 11 104/51 68 97 /15 1530 99.1 127 16 129/76 97 /15 1505 97.8 131 14 109/59 97 /15 1500 132 58 118/54 78 96 /15 1415 132 18 175/116 132 97 24 hour I O ending at 0700: 09/22 0700 09/21 1900 Intake Total 890.00 50 Output Total 500 1025 Balance 390.00 -975 Intake, IV 140.00 50 Intake, Oral 50 Intake, 700 Packed Cells Number 2 Bowel Movements Output, Chest 50 675 Tube Drainage Output, Urine 450 350 PATIENT WEIGHT: Weight (lb): 99Weight (oz): 3.33Weight (kg): 45.000 Dietitian nutrition assessmentThe data set between the solid lines has been imported from the dietitian's assessment. BMI Calculated: 19.4Nutrition related diagnosis: Nutrition diagnosis details: Nutrition problem: Nutrition etiology: Nutrition signs and symptoms: Nutrition prescription: Dietitian name: Assessment completed: Physical ExamGeneral appearance: awakeHead/Eyes: atraumatic, normocephalicENT: poor dentition, moist mucosal membranesCardiovascular: normal heart sounds, regular rate rhythmRespiratory: decreased breath sounds, on oxygen, symmetric expansion, no distress, PPM site c/d/i, no overlying edema, erythema or warmthAbdomen: non-tender, softExtremities: moves all, no edemaNeuro/BRIM WELT SEWING MACHINE OPERATOR: alert, normal speechPsychiatry: normal affect, normal mood ResultsFindings/Data:Laboratory Tests 09/22 Chemistry Sodium (134 - 147 mmol/L) 139 [...] (Auto) (20.5 - 51.1 %) 5.0 L Erath % (Auto) (1.7 - 9.3 %) 6.8 Eos % (Auto) (0.0 - 6.0 %) 0.8 Baso % (Auto) (0.0 - 2.0 %) 0.3 Neut # (Auto) (1.8 - 7.6 K/mm3) 10.0 H Lymph # (Auto) (0.6 - 3.2 K/mm3) 0.6 Erath # (Auto) (0.3 - 1.1 K/mm3) 0.8 Eos # (Auto) (0.0 - 0.4 K/mm3) 0.1 Baso # (Auto) (0.0 - 0.1 K/mm3) 0.0 Abs Immat Gran (auto) (0.00 - 0.03 x10 3/uL) 0.04 H Add Manual Diff (CRITERIA DIFF/SCN) NO Immature Gran % (0.0 - 5.0 %) 0.3 Nucleated RBC % (0.0 - 1.0 /100WBC%) 0.0 Radiology data:Recent Impressions:RADIOLOGY - XR CHEST 1 V 09/22 1010 Report Impression - Status: SIGNED Entered: 09/22/2022 1050 IMPRESSION:Stable chest.Impression By: [email or web address] - Kiersten Padilla MD Diagnosis, Assessment Plan Free Text DxA P NotesFree text DxA P notes:87 y/o female with PMHx of HTN, HLD, COPD, paroxysmal Afib, sick sinus syndrome,tachybrady syndome admitted for: #Paroxysmal Afib, sick sinus syndrome, tachybrady syndrome s/p PPM placements/p PPM placement by Cardiology Dr. Ortega 09/18/22Continue to monitor under continuous telemetryMonitor PPM insertion sitePain control with Tylenol/Tramadol PRNContinue home coregHold home Eliquis due to anemia with possible hemothorax #Complex moderate left pleural effusion / hemothorax, s/p R sided Cx tube in place with 600c of bloody fluid removed - appreciate pulm medicine, pain control #Acute normocytic anemia, possibly due to acute blood loss with possible hemothoraxbeing transfused PRBCs today #HypertensionContinue home coreg, losartanIV hydralazine PRN #Hx of COPDNot in acute exacerbationDuoneb tx PRN DVT prophylaxis with SCDs, held home Eliquis due to anemia with possible hemothorax Full code Ct tube in place , called and left msg for daughter Taylor [phone] at 1409 RPT #: [id number] OF REPORT PRProgress igqv1495-88-48K74:04:00L.[id number] able for patient hzwcRHNACPVAGZNPSC3627-40-48M66:10:40 [facility] 2022-09-22 09:47:00 [id number] 8Pqr+mRpCtn5UTsG2wVjcPhWjbIN6 14tL7zl2hUu2hz+8fHI1l12u7VN0924-05-89C76:47:00 [facility] ([facility])Pulmonology Progress NoteREPORT#:[id number] REPORT STATUS: SignedDATE:09/22/22 TIME:0947 PATIENT: LESLEY BREAUX UNIT #: [id number]#: [id number] ROOM[facility]BED: [facility]DOB: [birth year] AGE: 87 SEX: F ATTEND: Gissel Ortega MD CardiologyADM AUTHOR: Mauro Arce MD * ALL edits or amendments must be made on the electronic/computer document * SubjectiveChief complaint:less Left-sided chest pain, shortness of breathHPI:Pleasant 87-year-old lady who underwent pacemaker placement yesterday for tachybradycardia syndrome.She was having more shortness of breath and left-sided chest pain for which a CTangiogram of the chest was done, see full report.Images reviewed and discussed with patient and granddaughter.There is a small to moderate size left pleural effusion with different densitiessuggesting possible blood product. There are also chronic appearing reticular nodular, tree-in-bud type peripheral mostly lower zone infiltrates right more than left, no prior CT images to compare.The patient denies much in the way of chronic sputum fevers chills sweats or significant weight loss.The patient has emphysema has seen pulmonary doctors in the outpatient setting at [facility] but never smoked.Except described above, review of systems x14 is negative and normal. Objective GeneralVS/I O:Last Documented: Result Date Time Temp 36.8 09/23 823 Pulse Ox 100 09/22 726 FiO2 28 09/22 726 O2 Delivery Nasal cannula 09/22 726 O2 Flow Rate 2 09/22 726 B/P 109/52 09/22 06 B/P Mean 75 09/22 06 Pulse 78 09/22 0630 Resp 57 09/22 06 24 hour I O ending at 0700: 09/22 0700 09/21 1900 Intake Total 890.00 50 Output Total 500 1025 Balance 390.00 -975 Intake, IV 140.00 50 Intake, Oral 50 Intake, 700 Packed Cells Number 2 Bowel Movements Output, Chest 50 675 Tube Drainage Output, Urine 450 350 PATIENT WEIGHT: Weight (lb): 99Weight (oz): 3.33Weight (kg): 45.000 Medications:Active Meds + DC'd Last 24 HrsHydromorphone HCl (DILAUDID) 0.5 MG Q6H PRN PRN IV Metoprolol Tartrate (LOPRESSOR) 5 MG Q6H PRN PRN IV (CAN) Sodium Chloride (0.9% Sodium Chloride) 500 ML BOLUS IV (CAN) Sodium Chloride (SODIUM CHLORIDE) 10 ML ASDIR IV Sodium Chloride (0.9% Sodium Chloride) 500 ML ONCE ONE IV Hydromorphone HCl (DILAUDID) 0.25 MG ONCE ONE IV (DC) Hydromorphone HCl (DILAUDID) 0.5 MG ONCE ONE IV (DC) Zolpidem Tartrate (AMBIEN) 5 MG BEDTIME PRN PRN PO Acetylcysteine (MUCOMYST 20% 4 ML) 200 MG RTQ6H NEB Cefazolin Sodium (KEFZOL) 1 GM Q8HR IV Sterile Water (WATER FOR INJECTION) 10 MLIopamidol (ISOVUE-300) 100 ML ONCE PRN IV Sodium Chloride (0.9% Sodium Chloride) 50 ML ONCE PRN IV Tramadol HCl (ULTRAM) 25 MG Q4H PRN PRN PO Albuterol/Ipratropium (DUONEB) 3 ML RTQ6H PRN PRN NEB Iopamidol (ISOVUE-370) 100 ML ONCE PRN IV Losartan Potassium (COZAAR) 12.5 MG DAILY PO Atorvastatin Calcium (LIPITOR) 10 MG BEDTIME PO Carvedilol (COREG) 3.125 MG DAILY PO Sertraline HCl (ZOLOFT) 25 MG DAILY PO Acetaminophen (TYLENOL) 650 MG Q4H PRN PRN PO Ondansetron HCl (ZOFRAN ODT) 4 MG Q8H PRN PRN PO Sodium Chloride (SODIUM CHLORIDE) SALINE FLUSH ASDIR PRN IV Physical ExamGeneral appearance: alert, awakeHead/eyes: atraumatic, normocephalic, normal conjunctiva/scleraENT: ENT: moist mucosal membranes, normal pharynxNeck: non-tender, supple/no meningismusCardiovascular: normal S1/S2, regular rate rhythmRespiratory/chest: decreased breath sounds, on oxygen, rales, bandage, slingAbdomen: soft, non-tenderExtremities: edema, no clubbing, no cyanosisMusculoskeletal: normal inspection, no muscle spasmNeuro/BRIM WELT SEWING MACHINE OPERATOR: alert, oriented X 3, no motor deficitsSkin: dry, intactLymphatics: neck normal, no lymphadenopathy ResultsFindings/Data:Laboratory Tests 09/22/22 0352:[Embedded Image Not Available] 09/21/222002:[Embedded Image Not Available]Laboratory Tests 09/22 09/22 0824 0352 Chemistry Sodium [...] (Auto) (20.5 - 51.1 %) 5.0 L Erath % (Auto) (1.7 - 9.3 %) 6.8 Eos % (Auto) (0.0 - 6.0 %) 0.8 Baso % (Auto) (0.0 - 2.0 %) 0.3 Neut # (Auto) (1.8 - 7.6 K/mm3) 10.0 H Lymph # (Auto) (0.6 - 3.2 K/mm3) 0.6 Erath # (Auto) (0.3 - 1.1 K/mm3) 0.8 Eos # (Auto) (0.0 - 0.4 K/mm3) 0.1 Baso # (Auto) (0.0 - 0.1 K/mm3) 0.0 Abs Immat Gran (auto) (0.00 - 0.03 x10 3/uL) 0.04 H Add Manual Diff (CRITERIA DIFF/SCN) NO Immature Gran % (0.0 - 5.0 %) 0.3 Nucleated RBC % (0.0 - 1.0 /100WBC%) 0.0 Radiology data:Recent Impressions:ULTRASOUND - US CHST W/MEDIASTINUM 09/21 1000 Report Impression - Status: SIGNED Entered: 09/21/2022 1439 IMPRESSION: There is a small to moderate complex left pleural effusion. Impression By: Skyler Chapman M.D.RADIOLOGY - XR CHEST 1 V 09/21 1222 Report Impression - Status: SIGNED Entered: 09/21/2022 1313 IMPRESSION: 1. Emphysematous changes.2. Improvement of bilateral infiltrate.3. Interval placement of left pigtail catheter placement. Nopneumothorax.Impression By: Lane Kirby M.D. Diagnosis, Assessment PlanFree Text A P:Impression 1. Left pleural effusion apparently new blood layering densities, unclear etiology2. Chronic appearing lung parenchymal changes, recommend outpatient follow-upEvaluation, she can follow-up with her pulmonary doctor that has she has recently seen in the office3. Status post pacemaker, tachybradycardia syndrome, history of atrial fibrillation4. Emphysema5. Hypertension6. Lidocaine allergy DiscussionThe patient is allergic to lidocaine, states that she developed diffuse rash, hives, welts however this was many years ago after a dental procedure but she isnot sure of the exact details.I spoke with nursing staff as well as pharmacist regarding alternative topical anesthetics of a different class than lidocaine however this is not available here. Due to patient's poor respiratory status and lack of monitoring and resources of the weekend would like to avoid systemic sedation as was done with pacemaker placement. She is also allergic to opiates. Recommendation 1. Consultation with interventional radiology and pharmacy and possibly anesthesia to conduct left diagnostic and therapeutic thoracentesis tomorrow. She will need closer monitoring.2. Send pleural fluid for analysis3. Follow-up imaging4. Patient advised to follow-up with her pulmonary doctor in the outpatient setting in regards to the abnormal CT chest that seen her as far as the lung parenchymal changes 09/20 Reviewed her imaging studies evidence of moderate effusion with possible left lower lobe atelectasisBoth do not explain the drop in hemoglobin [address] abdomen and pelvisPPI IVChest PT using a flutter device and Mucomyst twice dailyThoracentesis by IR orderedIncentive spirometryIV antibioticsFollow-up imaging studies of the chest 09/21 Patient has severe pain with continuing to have dropping hemoglobinI did an ultrasound showed evidence of effusionI placed chest tubeBloody fluid was notedI drained [address] under suction for the next 24 hoursIf stable in a.m. we will remove Kandace give the patient Dilaudid 0.25 mgWe will give 2 units packed RBC 09/22 sp severe pain with continuing to have dropping hemoglobinI did an ultrasound showed evidence of effusionsp[ chest tubesp blood tranusionstable HHfollow up CXR Follow up IO at 0952 RPT #: [id number] OF REPORT PRProgress yoxd7348-85-83N00:47:00L.[id number] able for patient brxaPRCHOAISWBWMJN6617-04-64Y79:52:37 [facility] 2022-09-21 13:52:00 [id number] q56yo1KVayZjCwegGTHFqBVsIKbQn 1bZEo8ksH3mExXYv+5QdQdHoIBu7857-78-94V08:52:00 [facility] ([facility])Hospitalist Progress NoteREPORT#:[id number] REPORT STATUS: SignedDATE:09/21/22 TIME:1352 PATIENT: LESLEY BREAUX UNIT #: [id number]#: [id number] [address] [birth year] AGE: 87 SEX: F ATTEND: Gissel Ortega MD CardiologyADM AUTHOR: Tejinder Toribio MD * ALL edits or amendments must be made on the electronic/computer document * SubjectiveChief complaint:c/p R sided chest painHPI:pt appears weak and frail today, c/o intermittent dizzinesstelemetry reviewed, pt has short intermittent pauses with HR as low as 31, cardiology notifiedlabs reviewed, Hgb trending down to 8.1 from 12.2 09/18/22will upgrade to IMCU for closer monitoring Objective GeneralVS/I O:Vital Signs: Date Time Temp Pulse Resp B/P B/P Pulse O2 O2 Flow FiO2 Mean Ox Delivery Rate 09/21 1000 [...] Urine 400 4 PATIENT WEIGHT: Weight (lb): 99Weight (oz): 3.33Weight (kg): 45.000 Dietitian nutrition assessmentThe data set between the solid lines has been imported from the dietitian's assessment. BMI Calculated: 19.4Nutrition related diagnosis: Nutrition diagnosis details: Nutrition problem: Nutrition etiology: Nutrition signs and symptoms: Nutrition prescription: Dietitian name: Assessment completed: Physical ExamGeneral appearance: awakeHead/Eyes: atraumatic, normocephalicENT: poor dentition, moist mucosal membranesCardiovascular: normal heart sounds, regular rate rhythmRespiratory: decreased breath sounds, on oxygen, symmetric expansion, no distress, PPM site c/d/i, no overlying edema, erythema or warmthAbdomen: non-tender, softExtremities: moves all, no edemaNeuro/BRIM WELT SEWING MACHINE OPERATOR: alert, normal speechPsychiatry: normal affect, normal mood ResultsFindings/Data:Laboratory Tests 09/21 0320 Chemistry Sodium (134 - 147 mmol/L) 138 Potassium (3.4 - 5.0 mmol/L) 3.9 Chloride (100 - 108 mmol/L) 102 Carbon Dioxide (21 - 32 mmol/L) 33 H Anion Gap (4.0 - 15.0 GAP calc) 3.0 L BUN (7 - 18 MG/DL) 29 H Creatinine (0.6 - 1.0 MG/DL) 0.9 Glomerular Filtr Rate (>60 estGFR) >=60 max estimate Glucose (70 - 110 MG/DL) 99 Calcium (8.5 - 10.1 MG/DL) 8.7 Laboratory Tests 09/21 09/20 0320 1856 Hematology WBC (3.5 - 11.0 K/mm3) [...] (Auto) (20.5 - 51.1 %) 12.3 L Erath % (Auto) (1.7 - 9.3 %) 7.9 Eos % (Auto) (0.0 - 6.0 %) 3.3 Baso % (Auto) (0.0 - 2.0 %) 0.3 Neut # (Auto) (1.8 - 7.6 K/mm3) 6.9 Lymph # (Auto) (0.6 - 3.2 K/mm3) 1.1 Erath # (Auto) (0.3 - 1.1 K/mm3) 0.7 Eos # (Auto) (0.0 - 0.4 K/mm3) 0.3 Baso # (Auto) (0.0 - 0.1 K/mm3) 0.0 Abs Immat Gran (auto) (0.00 - 0.03 x10 3/uL) 0.04 H Add Manual Diff (CRITERIA DIFF/SCN) NO Immature Gran % (0.0 - 5.0 %) 0.4 Nucleated RBC % (0.0 - 1.0 /100WBC%) 0.0 Radiology data:Recent Impressions:CAT SCAN - CT ABD PELVIS W/O CONT 09/20 1420 Report Impression - Status: SIGNED Entered: 09/20/2022 1441 IMPRESSION: No acute abnormality in the abdomen or pelvisLeft pleural effusion with dependent high density material, andscattered tree-in-bud opacities in the visualized portions of bothlower lungs, also stable.Other findings as aboveImpression By: BrettAGRubia - Anabela Juares M.D.RADIOLOGY - XR CHEST 1 V 09/21 1222 Report Impression - Status: SIGNED Entered: 09/21/2022 1313 IMPRESSION: 1. Emphysematous changes.2. Improvement of bilateral infiltrate.3. Interval placement of left pigtail catheter placement. Nopneumothorax.Impression By: Lane Kirby M.D. Diagnosis, Assessment Plan Free Text DxA P NotesFree text DxA P notes:87 y/o female with PMHx of HTN, HLD, COPD, paroxysmal Afib, sick sinus syndrome,tachybrady syndome admitted for: #Paroxysmal Afib, sick sinus syndrome, tachybrady syndrome s/p PPM placements/p PPM placement by Cardiology Dr. Ortega 09/18/22Continue to monitor under continuous telemetryMonitor PPM insertion sitePain control with Tylenol/Tramadol PRNContinue home coregHold home Eliquis due to anemia with possible hemothorax #Complex moderate left pleural effusion / hemothorax, s/p R sided Cx tube with 600c of bloody fluid removed - appreciate pulm medicine, pain control #Acute normocytic anemia, possibly due to acute blood loss with possible hemothoraxbeing transfused PRBCs today #HypertensionContinue home coreg, losartanIV hydralazine PRN #Hx of COPDNot in acute exacerbationDuoneb tx PRN DVT prophylaxis with SCDs, hold home Eliquis due to anemia with possible hemothorax Full code at 1354 RPT #: [id number] OF REPORT PRProgress xgkm5073-66-12E11:52:00L.LKTF72321971-5693RLIrvho able for patient tjklOQIKPEGFTDSEUF4109-03-33P96:54:56 [facility] 2022-09-21 13:39:00 [id number] LrTvilQXVAWTkLMqBkexJjkJsalZ5 m5aq/Indkv3EBZweNToT39k12Ul5377-12-40F08:39:00 [facility] Operative NoteREPORT#:[id number] REPORT STATUS: SignedDATE:09/21/22 TIME:1339 PATIENT: LESLEY BREAUX UNIT #: [id number]#: [id number] [address] [birth year] AGE: 87 SEX: F ATTEND: Gissel Ortega MD CardiologyADM AUTHOR: Mauro Arce MD * ALL edits or amendments must be made on the electronic/computer document * Operative Report Operative NoteNote:Procedure note preoperative diagnosis: Complicated pleural effusion left Postoperative diagnosis: Hemothorax Procedure : Chest tube insertion under ultrasound guidance procedure description After reviewing the imaging studies we obtained consent from the patient explained risks and benefits of the procedure. After obtaining the consent we positioned the patient properly for the procedure aseptic techniques were used, we utilized 1% lidocaine for local anesthesia. Patient was positioned and we introduced the lidocaine needle to the subcutaneous tissue. A 1 cm cut was doneusing the blade then insertion of the guiding needle was done into the pleural space. After aspirating the pleural fluid we introduced a guidewire, a dilator was used for 14 Sinhala with no complications, a Chente chest tube was inserted under the guidance of the guidewire the chest tube was secured and no complications or bleeding was noted during the procedure. Findings. Bloody content was noted Diagnosis and plan 1. Left hemothorax; will place tube under suction and monitor output. at 1340 [facility] #: [id number] OF REPORT OPOperative hmorwh0737-04-32L41:39:00L.[id number] ilable for patient pqjfLWJAXMYPHFNFBC4423-68-42H63:41:16 [facility] 2022-09-21 13:38:00 [id number]+ hhUgoMywzMByF5rb2Ju0utISjVUxe K/coOVYZHAlcdDh5z9t3YcOrnfc4103-70-86U52:38:00 [facility] ([facility])Pulmonology Progress NoteREPORT#:[id number] REPORT STATUS: SignedDATE:09/21/22 TIME:1338 PATIENT: LESLEY BREAUX UNIT #: [id number]#: [id number] [address] AGE: 87 SEX: F ATTEND: Gissel Ortega MD CardiologyADM AUTHOR: Mauro Arce MD * ALL edits or amendments must be made on the electronic/computer document * SubjectiveChief complaint:Left-sided chest pain, shortness of breathHPI:Pleasant 87-year-old lady who underwent pacemaker placement yesterday for tachybradycardia syndrome.She was having more shortness of breath and left-sided chest pain for which a CTangiogram of the chest was done, see full report.Images reviewed and discussed with patient and granddaughter.There is a small to moderate size left pleural effusion with different densitiessuggesting possible blood product. There are also chronic appearing reticular nodular, tree-in-bud type peripheral mostly lower zone infiltrates right more than left, no prior CT images to compare.The patient denies much in the way of chronic sputum fevers chills sweats or significant weight loss.The patient has emphysema has seen pulmonary doctors in the outpatient setting at [facility] but never smoked.Except described above, review of systems x14 is negative and normal. Review of Systems ROSAll systems rev neg: except as marked Objective GeneralVS/I O:Last Documented: Result Date Time Pulse Ox 98 [...] Urine 400 4 PATIENT WEIGHT: Weight (lb): 99Weight (oz): 3.33Weight (kg): 45.000 Medications:Active Meds + DC'd Last 24 HrsSodium Chloride (SODIUM CHLORIDE) 10 ML ASDIR IV Sodium Chloride (0.9% Sodium Chloride) 500 ML ONCE ONE IV Hydromorphone HCl (DILAUDID) 0.25 MG ONCE ONE IV (DC) Hydromorphone HCl (DILAUDID) 0.5 MG ONCE ONE IV (DC) Zolpidem Tartrate (AMBIEN) 5 MG BEDTIME PRN PRN PO Acetylcysteine (MUCOMYST 20% 4 ML) 200 MG RTQ6H NEB Cefazolin Sodium (KEFZOL) 1 GM Q8HR IV Sterile Water (WATER FOR INJECTION) 10 MLIopamidol (ISOVUE-300) 100 ML ONCE PRN IV Sodium Chloride (0.9% Sodium Chloride) 50 ML ONCE PRN IV Tramadol HCl (ULTRAM) 25 MG Q4H PRN PRN PO Albuterol/Ipratropium (DUONEB) 3 ML RTQ6H PRN PRN NEB Iopamidol (ISOVUE-370) 100 ML ONCE PRN IV Losartan Potassium (COZAAR) 12.5 MG DAILY PO Atorvastatin Calcium (LIPITOR) 10 MG BEDTIME PO Carvedilol (COREG) 3.125 MG DAILY PO Sertraline HCl (ZOLOFT) 25 MG DAILY PO Acetaminophen (TYLENOL) 650 MG Q4H PRN PRN PO Ondansetron HCl (ZOFRAN ODT) 4 MG Q8H PRN PRN PO Sodium Chloride (SODIUM CHLORIDE) SALINE FLUSH ASDIR PRN IV Physical ExamHead/eyes: atraumatic, normocephalic, normal conjunctiva/scleraENT: ENT: moist mucosal membranes, normal pharynxNeck: non-tender, supple/no meningismusCardiovascular: normal S1/S2, regular rate rhythmRespiratory/chest: decreased breath sounds, on oxygen, rales, bandage, slingAbdomen: soft, non-tenderExtremities: edema, no clubbing, no cyanosisMusculoskeletal: normal inspection, no muscle spasmNeuro/BRIM WELT SEWING MACHINE OPERATOR: alert, oriented X 3, no motor deficitsSkin: dry, intactLymphatics: neck normal, no lymphadenopathy ResultsFindings/Data:Laboratory Tests 09/21/22319:[Embedded Image Not Available] 09/20/22 185:[Embedded Image Not Available]Laboratory Tests 09/22 319 Chemistry Sodium (134 - 147 mmol/L) 138 Potassium (3.4 - 5.0 mmol/L) 3.9 Chloride (100 - 108 mmol/L) 102 Carbon Dioxide (21 - 32 mmol/L) 33 H Anion Gap (4.0 - 15.0 GAP calc) 3.0 L BUN (7 - 18 MG/DL) 29 H Creatinine (0.6 - 1.0 MG/DL) 0.9 Glomerular Filtr Rate (>60 estGFR) >=60 max estimate Glucose (70 - 110 MG/DL) 99 Calcium [...] (Auto) (20.5 - 51.1 %) 12.3 L Erath % (Auto) (1.7 - 9.3 %) 7.9 Eos % (Auto) (0.0 - 6.0 %) 3.3 Baso % (Auto) (0.0 - 2.0 %) 0.3 Neut # (Auto) (1.8 - 7.6 K/mm3) 6.9 Lymph # (Auto) (0.6 - 3.2 K/mm3) 1.1 Erath # (Auto) (0.3 - 1.1 K/mm3) 0.7 Eos # (Auto) (0.0 - 0.4 K/mm3) 0.3 Baso # (Auto) (0.0 - 0.1 K/mm3) 0.0 Abs Immat Gran (auto) (0.00 - 0.03 x10 3/uL) 0.04 H Add Manual Diff (CRITERIA DIFF/SCN) NO Immature Gran % (0.0 - 5.0 %) 0.4 Nucleated RBC % (0.0 - 1.0 /100WBC%) 0.0 Radiology data:Recent Impressions:CAT SCAN - CT ABD PELVIS W/O CONT 09/20 1420 Report Impression - Status: SIGNED Entered: 09/20/2022 1441 IMPRESSION: No acute abnormality in the abdomen or pelvisLeft pleural effusion with dependent high density material, andscattered tree-in-bud opacities in the visualized portions of bothlower lungs, also stable.Other findings as aboveImpression By: [email or web address] - Anabela Juares M.D.RADIOLOGY - XR CHEST 1 V 09/21 1222 Report Impression - Status: SIGNED Entered: 09/21/2022 1313 IMPRESSION: 1. Emphysematous changes.2. Improvement of bilateral infiltrate.3. Interval placement of left pigtail catheter placement. Nopneumothorax.Impression By: Lane Kirby M.D. Diagnosis, Assessment PlanFree Text A P:Impression 1. Left pleural effusion apparently new blood layering densities, unclear etiology2. Chronic appearing lung parenchymal changes, recommend outpatient follow-upEvaluation, she can follow-up with her pulmonary doctor that has she has recently seen in the office3. Status post pacemaker, tachybradycardia syndrome, history of atrial fibrillation4. Emphysema5. Hypertension6. Lidocaine allergy DiscussionThe patient is allergic to lidocaine, states that she developed diffuse rash, hives, welts however this was many years ago after a dental procedure but she isnot sure of the exact details.I spoke with nursing staff as well as pharmacist regarding alternative topical anesthetics of a different class than lidocaine however this is not available here. Due to patient's poor respiratory status and lack of monitoring and resources of the weekend would like to avoid systemic sedation as was done with pacemaker placement. She is also allergic to opiates. Recommendation 1. Consultation with interventional radiology and pharmacy and possibly anesthesia to conduct left diagnostic and therapeutic thoracentesis tomorrow. She will need closer monitoring.2. Send pleural fluid for analysis3. Follow-up imaging4. Patient advised to follow-up with her pulmonary doctor in the outpatient setting in regards to the abnormal CT chest that seen her as far as the lung parenchymal changes 09/20 Reviewed her imaging studies evidence of moderate effusion with possible left lower lobe atelectasisBoth do not explain the drop in hemoglobin [address] abdomen and pelvisPPI IVChest PT using a flutter device and Mucomyst twice dailyThoracentesis by IR orderedIncentive spirometryIV antibioticsFollow-up imaging studies of the chest 09/21 Patient has severe pain with continuing to have dropping hemoglobinI did an ultrasound showed evidence of effusionI placed chest tubeBloody fluid was notedI drained [address] under suction for the next 24 hoursIf stable in a.m. we will remove Kandace give the patient Dilaudid 0.25 mgWe will give 2 units packed RBC at 1339 RPT #: [id number] OF REPORT PRProgress ugdo4367-45-96F77:38:00L.XHPF95097921-7399EJUdlff able for patient rztzADDFOVTVPJBIEZ9160-20-98J79:40:06 [facility] 2022-09-20 14:03:00 [id number] DaInvO503h8GocCQ/79zLV5guC5br aP5vXHEashEZ1nCXXkOqvG782Eb1644-48-28W59:03:00 [facility] ([facility])Pulmonology Progress NoteREPORT#:[id number] REPORT STATUS: SignedDATE:09/20/22 TIME:1403 PATIENT: LESLEY BREAUX UNIT #: [id number]#: [id number] [address] AGE: 87 SEX: F ATTEND: Gissel rOtega MD CardiologyADM AUTHOR: Mauro Arce MD * ALL edits or amendments must be made on the electronic/computer document * SubjectiveChief complaint:Left-sided chest pain, shortness of breathHPI:Pleasant 87-year-old lady who underwent pacemaker placement yesterday for tachybradycardia syndrome.She was having more shortness of breath and left-sided chest pain for which a CTangiogram of the chest was done, see full report.Images reviewed and discussed with patient and granddaughter.There is a small to moderate size left pleural effusion with different densitiessuggesting possible blood product. There are also chronic appearing reticular nodular, tree-in-bud type peripheral mostly lower zone infiltrates right more than left, no prior CT images to compare.The patient denies much in the way of chronic sputum fevers chills sweats or significant weight loss.The patient has emphysema has seen pulmonary doctors in the outpatient setting at [facility] but never smoked.Except described above, review of systems x14 is negative and normal. Objective GeneralVS/I O:Last Documented: Result Date Time Pulse Ox 96 [...] Voids 1 3 PATIENT WEIGHT: Weight (lb): 99Weight (oz): 3.33Weight (kg): 45.000 Medications:Active Meds + DC'd Last 24 HrsCefazolin Sodium (KEFZOL) 1 GM Q8HR IV Sterile Water (WATER FOR INJECTION) 10 MLIopamidol (ISOVUE-300) 0 .STK-MED ONE .ROUTE (DC) Iopamidol (ISOVUE-300) 100 ML ONCE PRN IV Sodium Chloride (0.9% Sodium Chloride) 50 ML ONCE PRN IV Tramadol HCl (ULTRAM) 25 MG Q4H PRN PRN PO Albuterol/Ipratropium (DUONEB) 3 ML RTQ6H PRN PRN NEB Iopamidol (ISOVUE-370) 100 ML ONCE PRN IV Losartan Potassium (COZAAR) 12.5 MG DAILY PO Atorvastatin Calcium (LIPITOR) 10 MG BEDTIME PO Zolpidem Tartrate (AMBIEN) 5 MG BEDTIME PRN PO (DC) Carvedilol (COREG) 3.125 MG DAILY PO Sertraline HCl (ZOLOFT) 25 MG DAILY PO Acetaminophen (TYLENOL) 650 MG Q4H PRN PRN PO Ondansetron HCl (ZOFRAN ODT) 4 MG Q8H PRN PRN PO Sodium Chloride (SODIUM CHLORIDE) SALINE FLUSH ASDIR PRN IV Physical ExamHead/eyes: atraumatic, normocephalic, normal conjunctiva/scleraENT: ENT: moist mucosal membranes, normal pharynxNeck: non-tender, supple/no meningismusCardiovascular: normal S1/S2, regular rate rhythmRespiratory/chest: decreased breath sounds, on oxygen, rales, bandage, slingAbdomen: soft, non-tenderExtremities: edema, no clubbing, no cyanosisMusculoskeletal: normal inspection, no muscle spasmNeuro/BRIM WELT SEWING MACHINE OPERATOR: alert, oriented X 3, no motor deficitsSkin: dry, intactLymphatics: neck normal, no lymphadenopathy ResultsFindings/Data:Laboratory Tests 09/20/22 1120:[Embedded Image Not Available] 09/20/222:[Embedded Image Not Available]Laboratory Tests 09/21 411 Chemistry Sodium (134 - [...] - 10.1 MG/DL) 8.6 Laboratory Tests 09/21 1119 Coagulation INR (0.8 - 1.2 INR Unit) 1.14 PT Patient/Control Mix (9.3 - 12.9 SECONDS) 12.7 Laboratory Tests 09/200 0412 Hematology WBC (3.5 - 11.0 K/mm3) [...] (Auto) (20.5 - 51.1 %) 14.0 L Erath % (Auto) (1.7 - 9.3 %) 8.6 Eos % (Auto) (0.0 - 6.0 %) 3.8 Baso % (Auto) (0.0 - 2.0 %) 0.4 Neut # (Auto) (1.8 - 7.6 K/mm3) 6.9 Lymph # (Auto) (0.6 - 3.2 K/mm3) 1.3 Erath # (Auto) (0.3 - 1.1 K/mm3) 0.8 Eos # (Auto) (0.0 - 0.4 K/mm3) 0.4 Baso # (Auto) (0.0 - 0.1 K/mm3) 0.0 Abs Immat Gran (auto) (0.00 - 0.03 x10 3/uL) 0.04 H Add Manual Diff (CRITERIA DIFF/SCN) NO Immature Gran % (0.0 - 5.0 %) 0.4 Nucleated RBC % (0.0 - 1.0 /100WBC%) 0.0 Radiology data:Recent Impressions:RADIOLOGY - XR CHEST 1 V 09/20 1050 Report Impression - Status: SIGNED Entered: 09/20/2022 1123 IMPRESSION: There are minimal patchy opacities in the lungs bilaterally. Thiscould be due to pneumonia. There is a small left pleural effusion. Compared to the prior exam, there has been little change. Impression By: Skyler Chapman M.D. Diagnosis, Assessment PlanFree Text A P:Impression 1. Left pleural effusion apparently new blood layering densities, unclear etiology2. Chronic appearing lung parenchymal changes, recommend outpatient follow-upEvaluation, she can follow-up with her pulmonary doctor that has she has recently seen in the office3. Status post pacemaker, tachybradycardia syndrome, history of atrial fibrillation4. Emphysema5. Hypertension6. Lidocaine allergy DiscussionThe patient is allergic to lidocaine, states that she developed diffuse rash, hives, welts however this was many years ago after a dental procedure but she isnot sure of the exact details.I spoke with nursing staff as well as pharmacist regarding alternative topical anesthetics of a different class than lidocaine however this is not available here. Due to patient's poor respiratory status and lack of monitoring and resources of the weekend would like to avoid systemic sedation as was done with pacemaker placement. She is also allergic to opiates. Recommendation 1. Consultation with interventional radiology and pharmacy and possibly anesthesia to conduct left diagnostic and therapeutic thoracentesis tomorrow. She will need closer monitoring.2. Send pleural fluid for analysis3. Follow-up imaging4. Patient advised to follow-up with her pulmonary doctor in the outpatient setting in regards to the abnormal CT chest that seen her as far as the lung parenchymal changes 09/20 Reviewed her imaging studies evidence of moderate effusion with possible left lower lobe atelectasisBoth do not explain the drop in hemoglobin [address] abdomen and pelvisPPI IVChest PT using a flutter device and Mucomyst twice dailyThoracentesis by IR orderedIncentive spirometryIV antibioticsFollow-up imaging studies of the chest at 1405 RPT #: [id number] OF REPORT PRProgress lrde9044-42-72Y32:03:00L.QADO06290346-7101AMDqmev able for patient xideWBDZKHVWTLSBNN4546-41-36S48:05:59 [facility] 2022-09-20 11:12:00 [id number]+ZLUjU 72/vLWKbDxBan8x+fw0sHKGR2mp0k 1dOiWGS4697AaYB8hXlnZz7rS8h0456-69-13S53:12:00 [facility])Hospitalist Progress NoteREPORT#:[id number] REPORT STATUS: SignedDATE:09/20/22 TIME:1112 PATIENT: LESLEY BREAUX UNIT #: [id number]#: [id number] [address] AGE: 87 SEX: F ATTEND: Gissel Otrega MD CardiologyADM AUTHOR: Ora Mackay * ALL edits or amendments must be made on the electronic/computer document * SubjectiveChief complaint:chest wall painHPI:pt appears weak and frail today, c/o intermittent dizzinesstelemetry reviewed, pt has short intermittent pauses with HR as low as 31, cardiology notifiedlabs reviewed, Hgb trending down to 8.1 from 12.2 09/18/22will upgrade to IMCU for closer monitoring Review of SystemsConstitutional:Reports: generalized weakness. Denies: fever. Respiratory:Reports: SOB. Cardiovascular:Denies: chest pain. Neuro:Reports: dizziness. Objective GeneralVS/I O:Vital Signs: Date Time Temp Pulse Resp B/P B/P Pulse O2 O2 Flow FiO2 Mean Ox Delivery Rate 09/20 0932 92 Room air 21 09/20 0745 98.2 90 18 137/65 88.7 96 09/20 0401 98.1 75 16 121/66 84.2 99 Nasal cannula 09/19 2306 98.8 80 18 118/56 76.3 97 Nasal cannula 09/19 2131 92 Room air 21 09/19 2000 Nasal 2 cannula 09/19 1943 [...] Voids 1 3 PATIENT WEIGHT: Weight (lb): 99Weight (oz): 3.33Weight (kg): 45.000 Medications:Active Meds + DC'd Last 24 HrsCefazolin Sodium (KEFZOL) 1 GM Q8HR IV Sterile Water (WATER FOR INJECTION) 10 MLTramadol HCl (ULTRAM) 25 MG Q4H PRN PRN PO Albuterol/Ipratropium (DUONEB) 3 ML RTQ6H PRN PRN NEB Furosemide (LASIX 20MG INJ) 20 MG ONCE ONE IV (DC) Iopamidol (ISOVUE-370) 100 ML ONCE PRN IV Losartan Potassium (COZAAR) 12.5 MG DAILY PO Atorvastatin Calcium (LIPITOR) 10 MG BEDTIME PO Zolpidem Tartrate (AMBIEN) 5 MG BEDTIME PRN PO (DC) Carvedilol (COREG) 3.125 MG DAILY PO Sertraline HCl (ZOLOFT) 25 MG DAILY PO Acetaminophen (TYLENOL) 650 MG Q4H PRN PRN PO Cefazolin Sodium (KEFZOL) 1 GM Q8H IV (DC) Sterile Water (WATER FOR INJECTION) 10 MLOndansetron HCl (ZOFRAN ODT) 4 MG Q8H PRN PRN PO Sodium Chloride (SODIUM CHLORIDE) SALINE FLUSH ASDIR PRN IV Dietitian nutrition assessmentThe data set between the solid lines has been imported from the dietitian's assessment. BMI Calculated: 19.4Nutrition related diagnosis: Nutrition diagnosis details: Nutrition problem: Nutrition etiology: Nutrition signs and symptoms: Nutrition prescription: Dietitian name: Assessment completed: Physical ExamGeneral appearance: chronically ill appearing, frail, alert, no acute distressHead/Eyes: atraumatic, normocephalicENT: poor dentition, moist mucosal membranesCardiovascular: normal heart sounds, regular rate rhythmRespiratory: decreased breath sounds, on oxygen, symmetric expansion, no distress, PPM site c/d/i, no overlying edema, erythema or warmthAbdomen: non-tender, softExtremities: moves all, no edemaNeuro/BRIM WELT SEWING MACHINE OPERATOR: alert, normal speechPsychiatry: normal affect, normal mood ResultsFindings/Data:Laboratory Tests 09/21 411 Chemistry Sodium (134 - [...] (Auto) (20.5 - 51.1 %) 14.0 L Erath % (Auto) (1.7 - 9.3 %) 8.6 Eos % (Auto) (0.0 - 6.0 %) 3.8 Baso % (Auto) (0.0 - 2.0 %) 0.4 Neut # (Auto) (1.8 - 7.6 K/mm3) 6.9 Lymph # (Auto) (0.6 - 3.2 K/mm3) 1.3 Erath # (Auto) (0.3 - 1.1 K/mm3) 0.8 Eos # (Auto) (0.0 - 0.4 K/mm3) 0.4 Baso # (Auto) (0.0 - 0.1 K/mm3) 0.0 Abs Immat Gran (auto) (0.00 - 0.03 x10 3/uL) 0.04 H Add Manual Diff (CRITERIA DIFF/SCN) NO Immature Gran % (0.0 - 5.0 %) 0.4 Nucleated RBC % (0.0 - 1.0 /100WBC%) 0.0 Diagnosis, Assessment Plan Free Text DxA P NotesFree text DxA P notes:87 y/o female with PMHx of HTN, HLD, COPD, paroxysmal Afib, sick sinus syndrome,tachybrady syndome admitted for: #Paroxysmal Afib, sick sinus syndrome, tachybrady syndrome s/p PPM placements/p PPM placement by Cardiology Dr. Ortega 09/18/22Continue to monitor under continuous telemetryTelemetry reviewed, pt is having intermittent pauses with HR as low as 31, Cardiology notifiedWill upgrade to IMCU for closer monitoringMonitor PPM insertion sitePain control with Tylenol/Tramadol PRNContinue home coregHold home Eliquis due to anemia with possible hemothorax #Complex moderate left pleural effusionCTA Chest negative for PE, noted complex moderate left pleural effusion, possible hemothoraxRespiratory status stable, supplemental O2 PRN to maintain SpO2 >92%, currently on 2L V1Snzbptkeqju following, recs for IR consult for diagnostic and therapeutic thoracentesisPt is allergic to lidocaine, may need anesthesia for procedure #Acute normocytic anemia, possibly due to acute blood loss with possible hemothoraxHgb trending down to 8.1 today from 12.2 on 09/18/22, possible hemothorax on CTA Chest with plan for thoracentesis for further evaluationHold anticoagulationMonitor H/H q8hr, transfuse PRN for Hgb <7 #HypertensionContinue home coreg, losartanIV hydralazine PRN #Hx of COPDNot in acute exacerbationDuoneb tx PRN DVT prophylaxis with SCDs, hold home Eliquis due to anemia with possible hemothorax Full code at 1122 at 1510 RPT #: [id number] OF REPORT PRProgress fffs2085-10-85I54:12:00L.JGWM41711445-5425FZOygbz able for patient lhaoZLKZPVOTVOGOCL8441-46-53O22:23:31 [facility] 2022-09-19 14:20:00 [id number] Dcdq7kbA516DIZPgjuCMCjv6MZ5E5 NQxWr9mMQULGENhavop6QGgXyeL3200-39-31T54:20:00 [facility] ([facility])Pulmonary Consultation NoteREPORT#:[id number] REPORT STATUS: SignedDATE:09/19/22 TIME:1420 PATIENT: LESLEY BREAUX UNIT #: [id number]#: [id number] [address]: [address] AGE: 87 SEX: F ATTEND: Gissel Ortega MD CardiologyADM AUTHOR: Aaron Chavis MD * ALL edits or amendments must be made on the electronic/computer document * History of Present Illness HPIChief complaint:Left-sided chest pain, shortness of breathHPI:Pleasant 87-year-old lady who underwent pacemaker placement yesterday for tachybradycardia syndrome.She was having more shortness of breath and left-sided chest pain for which a CTangiogram of the chest was done, see full report.Images reviewed and discussed with patient and granddaughter.There is a small to moderate size left pleural effusion with different densitiessuggesting possible blood product. There are also chronic appearing reticular nodular, tree-in-bud type peripheral mostly lower zone infiltrates right more than left, no prior CT images to compare.The patient denies much in the way of chronic sputum fevers chills sweats or significant weight loss.The patient has emphysema has seen pulmonary doctors in the outpatient setting at [facility] but never smoked.Except described above, review of systems x14 is negative and normal. History - Adult longitudinalFamily history:Reports: Heart disease, Hypertension. Smoking status for patients 13 years old or older: Never SmokerAllergies:Coded Allergies:fentanyl (Severe, COMA 09/16/22)Penicillins (Intermediate, HIVES 09/16/22)Sulfa (Sulfonamide Antibiotics) (Intermediate, MAKES HER PASS OUT 09/16/22)codeine (Intermediate, VOMITING 09/16/22)hydrocodone (Intermediate, VOMITING 09/16/22)meperidine (From DEMEROL) (Intermediate, THROW UP 09/16/22)morphine (Mild, HIVES 09/16/22)lidocaine (RASH-UNKNOWN 09/19/22) Objective Physical ExamVitals:Laboratory Tests: 09/19 0437 Chemistry Sodium (134 - [...] (Auto) (20.5 - 51.1 %) 18.8 L Erath % (Auto) (1.7 - 9.3 %) 7.5 Eos % (Auto) (0.0 - 6.0 %) 6.3 H Baso % (Auto) (0.0 - 2.0 %) 0.8 Neut # (Auto) (1.8 - 7.6 K/mm3) 4.0 Lymph # (Auto) (0.6 - 3.2 K/mm3) 1.1 Erath # (Auto) (0.3 - 1.1 K/mm3) 0.5 Eos # (Auto) (0.0 - 0.4 K/mm3) 0.4 Baso # (Auto) (0.0 - 0.1 K/mm3) 0.1 Abs Immat Gran (auto) (0.00 - 0.03 x10 3/uL) 0.02 Add Manual Diff (CRITERIA DIFF/SCN) NO Immature Gran % (0.0 - 5.0 %) 0.3 Nucleated RBC % (0.0 - 1.0 /100WBC%) 0.0 Recent Impressions:RADIOLOGY - XR CHEST 1 V 09/19 249 Report Impression - Status: SIGNED Entered: 09/19/202214 IMPRESSION: Interval removal of the right sided central venous line Impression By: Maurice Mancia M.D.CAT SCAN - CTA CHEST FOR PE 09/19 1030 Report Impression - Status: SIGNED Entered: 09/19/2022 1128 IMPRESSION: No pulmonary embolus is identified.Moderate left pleural effusion which appears complex with layeringhyperdensity. This may represent hemothorax however fluid samplingshould be considered.Patchy areas of tree-in-bud nodular opacities throughout both lungs ismost consistent with an acute infectious/inflammatory process. LOCATION: B2 This CT exam was performed according to our departmental doseoptimization program, which includes automated exposure control,adjustment of the mA and or kV according to patient size and/or use ofiterative reconstruction technique.Impression By: Tato Beltrán M.D. Current Medications Sig/Johnny [...] 100 ML ONCE PRN 09/19 0945 DC 09/19 IV 1045 Tramadol HCl 25 MG ONCE ONE 09/19 0915 DC 09/19 PO 09/19 0916 0947 Losartan Potassium 12.5 MG DAILY 09/19 0900 AC 09/19 PO 10/19 0859 0829 Ibuprofen 400 MG Q8H PRN PRN 09/19 0000 DC 09/19 PO 0831 Atorvastatin Calcium 10 MG BEDTIME 09/18 2100 AC 09/18 PO 10/18 Zolpidem Tartrate 5 MG BEDTIME PRN 09/18 2045 AC 09/18 PO 09/20 0400 2045 Ibuprofen 400 MG ONCE ONE 09/18 1845 DC 09/18 PO 09/18 184 1953 Carvedilol 3.125 MG DAILY 09/18 1300 AC [...] Chloride See Dose ASDIR PRN 09/18 1200 AC Insts (1) IV 10/18 1159 Dose Instructions:(1)Sodium Chloride: SALINE FLUSH Recent Impressions-Last 72 HrsRADIOLOGY - XR CHEST 1 V 09/18 1200 Report Impression - Status: SIGNED Entered: 09/18/2022 1248 IMPRESSION:Mild congestive changes bilaterally. Impression By: Tato Beltrán M.D.RADIOLOGY - XR CHEST 1 V 09/19 0250 Report Impression - Status: SIGNED Entered: 09/19/2022 0614 IMPRESSION: Interval removal of the right sided central venous line Impression By: Maurice Mancia M.D.CAT SCAN - CTA CHEST FOR PE 09/19 1030 Report Impression - Status: SIGNED Entered: 09/19/2022 1128 IMPRESSION: No pulmonary embolus is identified.Moderate left pleural effusion which appears complex with layeringhyperdensity. This may represent hemothorax however fluid samplingshould be considered.Patchy areas of tree-in-bud nodular opacities throughout both lungs ismost consistent with an acute infectious/inflammatory process. LOCATION: B2 This CT exam was performed according to our departmental doseoptimization program, which includes automated exposure control,adjustment of the mA and or kV according to patient size and/or use ofiterative reconstruction technique.Impression By: Tato Beltrán M.D. Last Documented: Result Date Time Pulse Ox 93 09/19 1254 B/P 135/64 09/19 1254 B/P Mean 0.0 09/19 1254 O2 Delivery Nasal cannula 09/19 1254 Temp 97.9 09/19 1254 Pulse 82 09/19 1254 Resp 15 09/19 1254 O2 Flow Rate 2 09/19 0746 General appearance: alert, no acute distressHead/eyes: atraumatic, normocephalic, normal conjunctiva/scleraENT: ENT: moist mucosal membranes, normal pharynxNeck: non-tender, supple/no meningismusCardiovascular: normal S1/S2, regular rate rhythmRespiratory/chest: decreased breath sounds, on oxygen, rales, bandage, slingAbdomen: soft, non-tenderExtremities: edema, no clubbing, no cyanosisMusculoskeletal: normal inspection, no muscle spasmNeuro/BRIM WELT SEWING MACHINE OPERATOR: alert, oriented X 3, no motor deficitsSkin: dry, intactLymphatics: neck normal, no lymphadenopathy Diagnosis, Assessment Plan Free Text DxA P NotesFree Text DxA P Notes:Impression 1. Left pleural effusion apparently new blood layering densities, unclear etiology2. Chronic appearing lung parenchymal changes, recommend outpatient follow-upEvaluation, she can follow-up with her pulmonary doctor that has she has recently seen in the office3. Status post pacemaker, tachybradycardia syndrome, history of atrial fibrillation4. Emphysema5. Hypertension6. Lidocaine allergy DiscussionThe patient is allergic to lidocaine, states that she developed diffuse rash, hives, welts however this was many years ago after a dental procedure but she isnot sure of the exact details.I spoke with nursing staff as well as pharmacist regarding alternative topical anesthetics of a different class than lidocaine however this is not available here. Due to patient's poor respiratory status and lack of monitoring and resources of the weekend would like to avoid systemic sedation as was done with pacemaker placement. She is also allergic to opiates. Recommendation 1. Consultation with interventional radiology and pharmacy and possibly anesthesia to conduct left diagnostic and therapeutic thoracentesis tomorrow. She will need closer monitoring.2. Send pleural fluid for analysis3. Follow-up imaging4. Patient advised to follow-up with her pulmonary doctor in the outpatient setting in regards to the abnormal CT chest that seen her as far as the lung parenchymal changes Thanks much for this consultation. I spoke with patient, granddaughter, daughter by phone and nursing staff. at 1432 [facility] #: [id number] OF REPORT BPEzieekzdngvq7246-17-53Q23:20:00L.YFDS01635418-5 160AVAvailable for patient hczpLZVCVXWDOQIGCP2187-04-57C58:32:26 [facility] 2022-09-19 12:29:00 [id number] AxWAgJJHe2jAfZMVaI04sLcXVBOyX Yp3/UecCEinzcXlV15cFwGH5sfk2687-94-49L21:29:00 [facility])Hospitalist Progress NoteREPORT#:[id number] REPORT STATUS: SignedDATE:09/19/22 TIME:1229 PATIENT: LESLEY BREAUX UNIT #: [id number]#: [id number] [address] AGE: 87 SEX: F ATTEND: Gissel Ortega MD CardiologyADM AUTHOR: Ora Mackay * ALL edits or amendments must be made on the electronic/computer document * SubjectiveChief complaint:chest wall painHPI:pt c/o left lower chest wall pain with SOB, CTA Chest was negative for PE but noted complex moderate pleural effusion, possible hemothorax respiratory status stable, no hypoxia, on intermittent 2L O2 nasal cannula for comfort Review of SystemsConstitutional:Denies: fever. Respiratory:Reports: SOB. Cardiovascular:Reports: chest pain. GI:Denies: nausea, vomiting. Objective GeneralVS/I O:Vital Signs: Date Time Temp Pulse Resp B/P B/P Pulse O2 O2 Flow FiO2 Mean Ox Delivery Rate 09/19 0749 [...] scale Measurement Method PATIENT WEIGHT: Weight (lb): 99Weight (oz): 3.33Weight (kg): 45.000 Medications:Active Meds + DC'd Last 24 HrsTramadol HCl (ULTRAM) 25 MG Q4H PRN PRN PO Furosemide (LASIX 20MG INJ) 20 MG ONCE ONE IV (DC) Iopamidol (ISOVUE-370) 100 ML ONCE PRN IV Sodium Chloride (SODIUM CHLORIDE 0.9%) 100 ML ONCE PRN IV (DC) Tramadol HCl (ULTRAM) 25 [...] (DC) Sterile Water (WATER FOR INJECTION) 10 MLOndansetron HCl (ZOFRAN ODT) 4 MG Q8H PRN PRN PO Sodium Chloride (SODIUM CHLORIDE) SALINE FLUSH ASDIR PRN IV Dietitian nutrition assessmentThe data set between the solid lines has been imported from the dietitian's assessment. BMI Calculated: 19.4Nutrition related diagnosis: Nutrition diagnosis details: Nutrition problem: Nutrition etiology: Nutrition signs and symptoms: Nutrition prescription: Dietitian name: Assessment completed: Physical ExamGeneral appearance: chronically ill appearing, frail, alert, awake, no acute distressHead/Eyes: atraumatic, normocephalicENT: poor dentition, moist mucosal membranesCardiovascular: normal heart sounds, regular rate rhythmRespiratory: decreased breath sounds, symmetric expansion, no distress, PPM sitec/d/i, no overlying edema, erythema or warmthAbdomen: non-tender, softExtremities: moves all, no edemaNeuro/BRIM WELT SEWING MACHINE OPERATOR: alert, normal speechPsychiatry: normal affect, normal mood ResultsFindings/Data:Laboratory Tests 09/19 436 Chemistry Sodium (134 - [...] (Auto) (20.5 - 51.1 %) 18.8 L Erath % (Auto) (1.7 - 9.3 %) 7.5 Eos % (Auto) (0.0 - 6.0 %) 6.3 H Baso % (Auto) (0.0 - 2.0 %) 0.8 Neut # (Auto) (1.8 - 7.6 K/mm3) 4.0 Lymph # (Auto) (0.6 - 3.2 K/mm3) 1.1 Erath # (Auto) (0.3 - 1.1 K/mm3) 0.5 Eos # (Auto) (0.0 - 0.4 K/mm3) 0.4 Baso # (Auto) (0.0 - 0.1 K/mm3) 0.1 Abs Immat Gran (auto) (0.00 - 0.03 x10 3/uL) 0.02 Add Manual Diff (CRITERIA DIFF/SCN) NO Immature Gran % (0.0 - 5.0 %) 0.3 Nucleated RBC % (0.0 - 1.0 /100WBC%) 0.0 Radiology data:Recent Impressions:RADIOLOGY - XR CHEST 1 V 09/19 0250 Report Impression - Status: SIGNED Entered: 09/19/2022 0614 IMPRESSION: Interval removal of the right sided central venous line Impression By: Maurice Mancia M.D.CAT SCAN - CTA CHEST FOR PE 09/19 1030 Report Impression - Status: SIGNED Entered: 09/19/2022 1128 IMPRESSION: No pulmonary embolus is identified.Moderate left pleural effusion which appears complex with layeringhyperdensity. This may represent hemothorax however fluid samplingshould be considered.Patchy areas of tree-in-bud nodular opacities throughout both lungs ismost consistent with an acute infectious/inflammatory process. LOCATION: B2 This CT exam was performed according to our departmental doseoptimization program, which includes automated exposure control,adjustment of the mA and or kV according to patient size and/or use ofiterative reconstruction technique.Impression By: Tato Beltrán M.D. Diagnosis, Assessment Plan Free Text DxA P NotesFree text DxA P notes:87 y/o female with PMHx of HTN, HLD, COPD, paroxysmal Afib, sick sinus syndrome,tachybrady syndome admitted for: #Paroxysmal Afib, sick sinus syndrome, tachybrady syndrome s/p PPM placements/p PPM placement by Cardiology Dr. Ortega 09/18/22Monitor under continuous telemetryMonitor PPM insertion sitePain control with Tylenol/Tramadol PRNContinue home coregHold Eliquis for possible hemothorax on CTA Chest #Complex moderate left pleural effusionCTA Chest negative for PE, noted complex moderate left pleural effusion, possible hemothoraxRespiratory status stable, supplemental O2 PRN to maintain SpO2 >92%Will give IV lasix 20mg r4Ozgkcmg Pulmonology #HypertensionContinue home coreg, losartanIV hydralazine PRN #Hx of COPDNot in acute exacerbationDuoneb tx PRN DVT prophylaxis with SCDs, hold home Eliquis for possible hemothorax Full code at 1236 at 1307 RPT #: [id number] OF REPORT PRProgress adgp6596-63-02T12:29:00L.QMAL46696558-8424ATFfbsh able for patient ddmoNIDEFVTQJNYQTT3566-58-72L41:37:02 [facility] 2022-09-19 11:30:00 [id number] kwerghiOh+XqQ72QBOTcPlRcHvdZo tasNXytLGLYv8C4W7GzW+BL6PVe6635-13-35O50:30:30417 3-0007 [facility] [address] [place] [id number] PATIENT NAME: LESLEY BREAUX ADMIT DATE: 09/19/22ACCOUNT NO: [id number] ROOM NO: [facility] AGE: 87 REPORT TYPE: eELECTROCARDIOGRAM SEX: F ADMITTING PHYSICIAN: Tejinder Toribio MD ATTENDING PHYSICIAN: Gissel Ortega MD Order:[id number] Reason : S/P PPI Test Date/Time Stamp:[place] Sep 19 2022 11:30:57Blood Pressure : / mmHGVent. Rate : 066 BPM Atrial Rate : 066 BPM P-R Int : 242 ms QRS Dur : 158 ms QT Int : 480 ms P-R-T Axes : 000 -75 105 degrees QTc Int : 503 ms AV dual-paced rhythm with prolonged AV conductionAbnormal ECGWhen compared with ECG of 18-SEP-2022 12:20,Vent. rate has decreased BY 2 BPMConfirmed by GISSEL ORTEGA ([id number]) on 09/19/2022 5:56:33 PM Referred By: Gissel Ortega Confirmed by:GISSEL ORTEGA at 1756 PATIENT NAME: LESLEY BREAUX .[id number] AVAvailable for patient nrtnAWFETQLCDSRYER8627-88-63U00:56:57 [facility] 2022-09-18 12:20:00 [id number]+ RcUvRcVtXb8kM6W/Csr1rV2d8o1ll ufqLxRqBtatiwvzAonJ923Z7E701157-45-20G24:20:68727 2-[address] [place] [address] PATIENT NAME: LESLEY BREAUX ADMIT DATE: 09/18/22ACCOUNT NO: [id number] ROOM NO: [facility] AGE: 87 REPORT TYPE: eELECTROCARDIOGRAM SEX: F ADMITTING PHYSICIAN: Tejinder Toribio MD ATTENDING PHYSICIAN: Gissel Ortega MD Order:[id number] Reason : Post insertion procedure Test Date/Time Stamp:TueSep 18 2022 12:20:50Blood Pressure : / mmHGVent. Rate : 068 BPM Atrial Rate : 068 BPM P-R Int : 340 ms QRS Dur : 144 ms QT Int : 462 ms P-R-T Axes : 079 -81 086 degrees QTc Int : 491 ms AV dual-paced rhythm with prolonged AV conduction with occasionalventricular-paced complexesAbnormal ECGWhen compared with ECG of 18-SEP-2022 08:11,Electronic ventricular pacemaker has replaced Sinus rhythmConfirmed by GISSEL ORTEGA ([id number]) on 09/18/2022 1:01:23 PM Referred By: Gissel Ortega Confirmed by:GISSEL ORTEGA at 1301 PATIENT NAME: LESLEY BREAUX .[id number] AVAvailable for patient gnsbJDZRQXXFPWHSUQ5240-58-23H07:01:40 [facility] 2022-09-18 12:17:00 [id number]/uZ CF3hD9ohWulFY/bLunAGo5Lww18VD XtX65KbNl7BqVLUQJif3jyCVHQC6324-61-02Z86:17:00 [facility])Hospitalist History PhysicalREPORT#:[id number] REPORT STATUS: SignedDATE:09/18/22 TIME:1217 PATIENT: LESLEY BREAUX UNIT #: [id number]#: [id number] [address] AGE: 87 SEX: F ATTEND: Gissel Ortega MD CardiologyADM AUTHOR: Ora Mackay * ALL edits or amendments must be made on the electronic/computer document * History of Present Illness HPIChief complaint:chest wall painHPI:87 y/o female with PMHx of HTN, HLD, COPD, paroxysmal Afib, sick sinus syndrome,tachybrady syndome was admitted to the hospital for postoperative monitoring after PPM placement by Dr. Ortega today. Pt c/o mild chest wall pain at site ofPPM, no other complaints. Denies any palpitations or SOB. No nausea or vomiting. History Family HistoryFamily history:Reports: Heart disease, Hypertension. Social HistorySmoking status for patients 13 years old or older: Never Smoker Medication/Allergy-Vaccine HxMedications:Home Medications:APIXABAN (ELIQUIS) 2.5 MG PO BID LOSARTAN (COZAAR) [...] GM) 2 PUFF INH BID PRN SOB Allergies:Coded Allergies:fentanyl (Severe, COMA 09/16/22)Penicillins (Intermediate, HIVES 09/16/22)Sulfa (Sulfonamide Antibiotics) (Intermediate, MAKES HER PASS OUT 09/16/22)codeine (Intermediate, VOMITING 09/16/22)hydrocodone (Intermediate, VOMITING 09/16/22)meperidine (From DEMEROL) (Intermediate, THROW UP 09/16/22)morphine (Mild, HIVES 09/16/22) Review of SystemsConstitutional:Denies: chills, fever. Skin:Denies: bruising, rash. Eyes:Denies: visual loss/blurred, eye pain. ENT:Denies: nasal congestion, sore throat. Respiratory:Denies: productive cough (sputum), SOB. Cardiovascular:Denies: chest pain, palpitations. GI:Denies: nausea, vomiting. :Denies: dysuria, hematuria. Musculoskeletal:Denies: extremity pain, extremity swelling. Neuro:Denies: headache, syncope. OBJECTIVEVS/I O:Vital Signs Date Temp Pulse Resp B/P B/P Mean Pulse Ox FiO2 09/18 97.0-97.9 60-76 14-18 135-226/65-96 96.2-103.0 93-100 Last Documented: Result Date Time O2 Delivery Nasal cannula 09/18 1416 O2 Flow Rate 2 09/18 1416 Pulse Ox 96 09/18 1347 B/P 135/77 09/18 1347 B/P Mean 96.2 09/18 1347 Pulse 75 09/18 1347 Resp 15 09/18 1347 Temp 97.9 09/18 1337 Patient Weight and BMI Weight (kg): 45.000 BMI: 19.4 Medications:Active Meds + DC'd Last 24 HrsLosartan Potassium (COZAAR) 12.5 MG DAILY PO Atorvastatin Calcium (LIPITOR) 10 MG BEDTIME PO Carvedilol (COREG) 3.125 MG DAILY PO Sertraline HCl (ZOLOFT) 25 MG DAILY PO Acetaminophen (TYLENOL) 650 MG Q4H PRN PRN PO Cefazolin Sodium (KEFZOL) 1 GM Q8H IV Sterile Water (WATER FOR INJECTION) 10 MLOndansetron HCl (ZOFRAN ODT) 4 MG Q8H PRN PRN PO Sodium Chloride (SODIUM CHLORIDE) SALINE FLUSH ASDIR PRN IV Flumazenil (ROMAZICON) 0 .STK-MED ONE .ROUTE (DC) Flumazenil (ROMAZICON) 0 .STK-MED ONE .ROUTE (DC) Midazolam HCl (VERSED) 0 .STK-MED ONE .ROUTE (DC) Nitroglycerin (NITRO-BID) 0 .STK-MED ONE .ROUTE (DC) Midazolam HCl (VERSED) 0 .STK-MED ONE .ROUTE (DC) Cefazolin Sodium (KEFZOL) 0 .STK-MED ONE .ROUTE (DC) Gentamicin Sulfate (GARAMYCIN) 0 .STK-MED ONE .ROUTE (DC) Lidocaine HCl (lidocaine HCL) 0 .STK-MED ONE .ROUTE (DC) Gentamicin Sulfate (GARAMYCIN) 0 .STK-MED ONE .ROUTE (DC) Lidocaine HCl (lidocaine HCL) 0 .STK-MED ONE .ROUTE (DC) Diazepam (VALIUM) 5 MG ONCE ONE PO (DC) Diphenhydramine HCl (BENADRYL) 25 MG ONCE ONE PO (DC) General appearance: chronically ill appearing, frail, alert, awake, no acute distressHead/Eyes: atraumatic, normocephalicENT: poor dentition, moist mucosal membranesCardiovascular: normal heart sounds, regular rate rhythmRespiratory: symmetric expansion, no distress, PPM site c/d/i, no overlying edema, erythema or warmthAbdomen: non-tender, softExtremities: moves all, no edemaNeuro/BRIM WELT SEWING MACHINE OPERATOR: alert, normal speechPsychiatry: normal affect, normal mood ResultsFindings/Data:Laboratory Tests: 09/18 0744 Chemistry Sodium (134 - [...] PT Patient/Control Mix (9.3 - 12.9 SECONDS) 11.6 Hematology WBC (3.5 - 11.0 K/mm3) 5.6 [...] % (Auto) (20.5 - 51.1 %) 24.0 [place] % (Auto) (1.7 - 9.3 %) 6.1 Eos % (Auto) (0.0 - 6.0 %) 7.2 H Baso % (Auto) (0.0 - 2.0 %) 1.1 Neut # (Auto) (1.8 - 7.6 K/mm3) 3.4 Lymph # (Auto) (0.6 - 3.2 K/mm3) 1.3 [place] # (Auto) (0.3 - 1.1 K/mm3) 0.3 Eos # (Auto) (0.0 - 0.4 K/mm3) 0.4 Baso # (Auto) (0.0 - 0.1 K/mm3) 0.1 Abs Immat Gran (auto) (0.00 - 0.03 x10 3/uL) 0.02 Add Manual Diff (CRITERIA DIFF/SCN) NO Immature Gran % (0.0 - 5.0 %) 0.4 Nucleated RBC % (0.0 - 1.0 /100WBC%) 0.0 Laboratory Tests 09/18/22 0744:[Embedded Image Not Available] Radiology data:Recent Impressions:RADIOLOGY - XR CHEST 1 V 09/18 1200 Report Impression - Status: SIGNED Entered: 09/18/2022 1248 IMPRESSION:Mild congestive changes bilaterally. Impression By: Tato - Lay Beltrán M.D. Diagnosis, Assessment PlanFree Text A P:87 y/o female with PMHx of HTN, HLD, COPD, paroxysmal Afib, sick sinus syndrome,tachybrady syndome admitted for: #Paroxysmal Afib, sick sinus syndrome, tachybrady syndrome s/p PPM placements/p PPM placement by Cardiology Dr. Ortega todayMonitor under continuous telemetryMonitor PPM insertion sitePain control with Tylenol/Tramadol PRNContinue home coreg, Eliquis #HypertensionContinue home coreg, losartanIV hydralazine PRN #Hx of COPDNot in acute exacerbationDuoneb tx PRN DVT prophylaxis with home Eliquis Full code Dispo- plan DC home tomorrow morning if pain controlled and tolerating po at 1516 at 1306 [facility] #: [id number] OF REPORT HPHistory and physical xuzsrhngchi3826-28-47A30:17:00L.[id number] AVAvailable for patient mgplUTGHJXECSMFBAK7870-84-21X14:16:45 [facility] 2022-09-18 11:57:00 [id number]/ OQt1Rw1BBnPIPyrQYv2dnYe4UaSFH gfQJOIc7K0q6R5O4J+SowYuHkxe2937-68-33P95:57:49434 2-0016 [facility] [id number] [place] [id number] PATIENT NAME: LESLEY BREAUX ADMIT DATE: 09/18/22ACCOUNT NO: [id number] ROOM NO: [facility] AGE: 87 REPORT TYPE: CARDIAC CATHETERIZATION REPORT SEX: F ADMITTING PHYSICIAN: Tejinder Toribio MD ATTENDING PHYSICIAN: Gissel Ortega MD PROCEDURE DATE: 09/18/2022 SOLO TRUCK DRIVER: Gissel Ortega MD. INDICATION FOR THE PROCEDURE: Symptomatic sick sinus syndrome with paroxysmal atrial fibrillation and history of nonsustained ventricular tachycardia. TITLE OF PROCEDURE: Dual chamber permanent pacemaker, MRI compatible pacemaker. ESTIMATED BLOOD LOSS: Minimal. COMPLICATIONS: None. The patient had transient hypotension from oversedation and resolved after wiping off the nitro paste and then reversing some of the sedation. CONTRAST: None. ANESTHESIA: Conscious sedation with Versed. No other medications were given due to the patient's allergies. FINAL DIAGNOSES: Successful dual chamber permanent pacemaker implantation, MRI compatible. DISPOSITION: Observation overnight. The patient did get Ancef prior to the procedure and did get only Versed for thesedation. PROCEDURE IN DETAIL: Please see enclosed report in the chart. Dictated By: Gissel Ortega MD Date Dictated: 09/18/2022 11:57:24Date Transcribed: 09/18/2022 14:28:58SFD/Jevon #: [id number] ID: [id number] by Gissel Ortega MD On 09/19/2022 10:28:01 AM PATIENT NAME: LESLEY BREAUX at 1028 PATIENT NAME: LESLEY BREAUX qegg7770-51-28V89:28:00L.[id number] ble for patient tvcdQKABIBNKZKAZNF9419-34-29Z93:28:39 [facility] 2022-09-18 08:11:00 [id number]+ H/LVyb+V/ydRFWuB2+sisgakHQdNf OYii7oV6xVWEVpNuF5vvDQJ3tcM2362-02-07S36:11:47023 2-[address] [place] [address] PATIENT NAME: LESLEY BREAUX ADMIT DATE: 09/18/22ACCOUNT NO: [id number] ROOM NO: AGE: 87 REPORT TYPE: eELECTROCARDIOGRAM SEX: F ADMITTING PHYSICIAN: ATTENDING PHYSICIAN: Gissel Ortega MD Order:[id number] Reason : ABN STRESS Test Date/Time Stamp:[facility] Sep 18 2022 08:11:41Blood Pressure : / mmHGVent. Rate : 062 BPM Atrial Rate : 062 BPM P-R Int : 368 ms QRS Dur : 068 ms QT Int : 418 ms P-R-T Axes : 084 -58 052 degrees QTc Int : 424 ms Sinus rhythm with marked sinus arrhythmia with 1st degree AV block withpremature ventricular complexes or fusion complexesLeft axis deviationAnteroseptal infarct , age undeterminedAbnormal ECGNo previous ECGs availableConfirmed by GISSEL ORTEGA ([id number]) on 09/18/2022 9:34:02 AM Referred By: Gissel Ortega Confirmed by:GISSEL ORTEGA at 0934 PATIENT NAME: LESLEY BREAUX .[id number] AVAvailable for patient chucEVWPSLMFZJZRQT0212-31-58S73:34:25 [facility] 2022-09-17 08:06:00 [id number] DpJginul/h3u/OXrApu5miuLQDShF 1cS6vtf1C7+K0RX17xWSitf4kyC0002-65-98P36:06:03611 1-0011 [facility] [id number] [place] [address] PATIENT NAME: LESLEY BREAUX ADMIT DATE: ACCOUNT NO: [id number] ROOM NO: AGE: 87 REPORT TYPE: HISTORY AND PHYSICAL SEX: F ADMITTING PHYSICIAN: ATTENDING PHYSICIAN: Gissel Ortega MD Cardiology PATIENT NAME: LESLEY BREAUX ADMIT DATE:09/18/2022DMISSION DATE: 09/18/2022 10:00:00 SOLO TRUCK DRIVER: Gissel Ortega MD. REASON FOR CONSULTATION: The title of the procedure is dual chamber permanentpacemaker implantation for symptomatic sick sinus syndrome and paroxysmal atrialfibrillation in a patient with no coronary history. HISTORY OF PRESENT ILLNESS: Lesley is an 87-year-old lady with symptomatic paroxysmal atrial fibrillation and sick sinus syndrome, who has been evaluated by Dr. Tenorio for her tachybrady syndrome and Dr. Tenorio reviewed her records including a recent event recorder that showed possible nonsustained ventricular tachycardia versus aberration runs. She had significant sinusbradycardia. She had pauses up to 3.3 seconds alternating with paroxysmalatrial fibrillation. He felt that the patient's best option for treatment wouldbe dual chamber permanent pacemaker implantation and medical therapy for herparoxysmal atrial fibrillation. So, after discussion with the patient and and the patient's family, the patient is here for dual chamber permanentpacemaker implantation. The patient has had history of angina for some time.She has had 2 negative cardiac catheterizations in 2010 and 2021. Her carotidDoppler shows less than 50% disease, monitoring was described above. She has abaseline of sinus bradycardia and first-degree AV block. Echocardiographyshowing hypertensive changes and mild mitral regurgitation, moderate aorticinsufficiency, normal ejection fraction. She has pulmonary hypertension, 50-60mmHg. Has had a negative chemical stress test for ischemia. The patient's mainissues at this time is symptomatic tachybrady syndrome and need for dual chamberpermanent pacemaker implantation. PAST MEDICAL HISTORY: As per above the patient has had also history ofhypertension, hyperlipidemia. She said she may have had an old myocardialinfarction. She said she may have had a stroke in the past. Has hypothyroidism,seizures, insomnia, osteoarthritis, asthma, glaucoma, anxiety, depression, COPD;C. diff , recently hospitalized for it and recovered and COVID in October and allergies. PAST SURGICAL HISTORY: She has had a complete hysterectomy and history ofablation for the fibrillation that failed in 2014. SOCIAL HISTORY: There is no history of smoking, alcohol or street drug use. FAMILY HISTORY: Positive for atherosclerotic cardiovascular disease. PATIENT NAME: LESLEY BREAUX ALLERGIES: DEMEROL, SULFA, CODEINE, HYDROCODONE AND FENTANYL CAUSES RASH. MEDICATIONS: Vitamin D3, Ambien, atorvastatin, furosemide, sertraline,carvedilol, losartan, Eliquis and aspirin, Eliquis is on hold and the carvedilolis 6.25 b.i.d. and losartan is 25 mg half twice daily. REVIEW OF SYSTEMS: Remarkable for the above in addition to fatigue, allergies,generalized weakness, recent hospitalization for C. diff, history of stroke [id number]. She has also history of anxiety and depression. The rest of the reviewof systems is enclosed. PHYSICAL EXAMINATION:GENERAL: Reveals a pleasant elderly lady, in no acute distress.VITAL SIGNS: Blood pressure 154/70, pulse 58 and regular, respiratory rate 16and unlabored, temperature afebrile.HEENT: Head atraumatic, normocephalic. Eyes and ENT examination within normalfor age.NECK: Supple. Elevated jugular venous pressure is noted. No bruits. Normalupstroke.LUNGS: Clear and resonant with diminished breath sounds at the bases. She usesoxygen on and off.HEART: Regular rate and rhythm with II/ systolic and diastolic murmurs at themitral and aortic area respectively and bradycardia noted. No gallops.ABDOMEN: Soft. No tenderness, no organomegaly, no masses or bruits.EXTREMITIES: 2+ distal pulses. No edema, cyanosis or clubbing.NEUROLOGIC: Alert and oriented x3. The examination appears to be nonfocal. LABORATORY AND DIAGNOSTIC DATA: Pending. Noninvasive cardiovascular workupenclosed. IMPRESSION: This is an 87-year-old lady with multiple medical problems andsignificant cardiovascular history whose main problem right now is paroxysmalatrial fibrillation, alternating with symptomatic sick sinus syndrome,tachybrady syndrome. The patient was evaluated by Electrophysiology and dualchamber permanent pacemaker implantation was advised. The patient is here forthat procedure. The patient is otherwise stable from the cardiovascularstandpoint. The patient is right handed, so proceed with dual chamber permanentpacemaker implantation from the left side. PLAN: The recommendation is to proceed with the above-mentioned procedures.The risks and benefits of the planned procedure were discussed in detail withthe patient and available family members and she is willing to proceed. Rest asper orders. Dictated By: Gissel Ortega MD Date Dictated: 09/17/2022 08:06:04Date Transcribed: 09/17/2022 09:56:45SFD/SANJob #: [id number] PATIENT NAME: LESLEY BREAUX Receipt ID: [id number] and Edited by Gissel Ortega MD On 09/17/22 5:36:56 PM at 0539 PATIENT NAME: LESLEY BREAUX LOU and physical xjcpctlywtv0072-73-88B77:56:00L.[id number] VAvailable for patient hvxoAIDNITVYZNEJUE5934-98-50V66:40:36 HCAPM
[2023-02-28 19:47] LABS: Absolute Lymphocytes (CBC) 0.4 K/uL (0.7-4.9); Hematocrit 33.7 % (36.0-45.0); Lymphocytes % 2.5 % (15.3-44.8); MCV 90.7 fL (80-100); MPV 7.7 fL (7.6-11.3); Platelets 212 thou/uL (152-406); RBC Red Blood Cell Count 3.72 M/uL (3.86-4.86)
[2023-02-28 19:50] LABS: Protime INR 1.61
--- NOTE | 2023-02-28 20:47 | RAD REPORT ---
[facility] CLINICAL HISTORY: DYSPNEA COMPARISON: Chest Single View dated 02/14/2023; Chest Single View dated 02/12/2023; Chest Pa And Lat (2 Views) dated 12/17/2022; Chest Single View dated 08/29/2022 TECHNIQUE: Portable AP view of the chest. FINDINGS: Patchy interstitial prominence in the perihilar and bibasilar regions, partially improved since the prior exam. Left chest wall pacer unchanged in position. No pneumothorax. Residual trace r ight effusion versus pleural thickening, stable. The cardiomediastinal contours are unremarkable. IMPRESSION: Improving perihilar and bibasilar opacities, may reflect improving pneumonitis or conges tion.
[2023-02-28 21:16] LABS: Albumin 2.8 g/dL (3.4-5.0); Potassium 3.6 mEq/L (3.5-5.1); Protein, Total 6.7 g/dL (6.4-8.2)
[2023-02-28 22:12] LABS: Blood Morphology Comment NOT SEEN (NOT SEEN); Platelet Estimate ADEQ; White Blood Cell Scan OK (OK)
--- NOTE | 2023-02-28 22:15 | EDPHYS ---
Physician Documentation [facility] Name: Madiha Breaux Age: 88 yrs Sex: Female : 1935 Arrival Date: 02/28/2023 Time: 18:43 Bed 4 Private MD: ED Physician Lonnie Guerra HPI: 02/28 22:30 This 88 yrs old Female presents to ER via EMS with complaints of Shortness Of Breath. kb 22:30 Patient is a 88-year-old female with a history of COPD who presents for chills and kb shortness of breath that started at 4 PM. Denies fever, cough, congestion.. Historical: - Allergies: 18:49 Codeine; bp 18:49 Demerol; bp 18:49 Fentanyl; bp 18:49 lamital; bp 18:49 Lidocaine; bp 18:49 meperidine; bp 18:49 Morphine; bp 18:49 [place]; bp 18:49 PENICILLINS; bp 18:49 PORK/PORCINE PRODUCT DERIVATIVES; bp 18:49 Sulfa (Sulfonamide Antibiotics); bp - Home Meds: 18:49 atorvastatin 10 mg Oral tablet daily [Active]; Eliquis 2.5 mg Oral tablet 1 tab 2 times bp per day [Active]; furosemide 20 mg Oral tablet 1/2 tablet [Active]; losartan 25 mg Oral tablet 1 tab daily [Active]; Rexulti 1 mg Oral tablet daily [Active]; sertraline 25 mg Oral tablet 1 tab daily [Active]; zolpidem 10 mg Oral tablet every day at bedtime [Active]; - PMHx: 18:49 Atrial fibrillation; COPD; CVA; C-diff; Myocardial infarction; Pacemaker; bp - Immunization history:: Adult Immunizations up to date. - Social history:: Smoking status: unknown. ROS: 22:30 Abdomen/GI: Negative for abdominal pain, nausea, vomiting, diarrhea, and constipation, kb 22:30 Constitutional: Positive for chills, Negative for fever, 22:30 Respiratory: Positive for shortness of breath, Exam: 19:49 Constitutional: This is a well developed, well nourished patient who is awake, alert, kb and in no acute distress. Head/Face: Normocephalic, atraumatic. ENT: Moist Mucous membranes Cardiovascular: Regular rate Abdomen/GI: Soft, non-tender. No distention Skin: Warm, dry with normal turgor. Normal color. MS/ Extremity: Pulses equal, no cyanosis. Neurovascular intact. Full, normal range of motion. Neuro: Awake and alert, GCS 15, oriented to person, place, time, and situation. Moves all extremities. Normal gait. 19:49 ECG was reviewed by the Attending Physician. 22:30 Respiratory: the patient does not display signs of respiratory distress, Respirations: kb normal, Breath sounds: decreased breath sounds, that are mild, are located in both bases, Vital Signs: 18:48 BP 160 / 86; Pulse 98; Resp 16; Temp 98; Pulse Ox 98% ; bp 20:08 BP 140 / 59; Pulse 87; Resp 23; Pulse Ox 96% ; bp 21:40 BP 110 / 65; Pulse 82; Resp 17; Pulse Ox 95% ; jw7 MDM: 18:50 Patient medically screened. kb 22:28 Differential diagnosis: CHF exacerbation, Chronic Obstructive Pulmonary Disease. Data kb reviewed: vital signs, nurses notes. Consideration of Admission/Observation Patient was admitted/placed on observation. Escalation of care including admission/observation considered. Management of patient was discussed with the following: Hospitalist: Dr Jacques accepts pt for admission. Historians other than the Patient: Daughter/Son: daughter. Counseling: I had a detailed discussion with the patient and/or guardian regarding the historical points, exam findings, and any diagnostic results supporting the discharge/admit diagnosis, lab results, radiology results, the need for further work-up and treatment in the hospital. ED course: Discussed diagnostic results with patient and daughters. Patient states she is not comfortable going home because she feels so short of breath. Daughter is in agreement with admission. Patient does not appear to be in any respiratory distress at this time, respirations even and unlabored. 02/28 18:55 Order name: Blood Culture Adult (2) kb 02/28 18:55 Order name: CBC with Diff; Complete Time: 22:13 kb 02/28 18:55 Order name: CMP; Complete Time: : kb 02/28 18:55 Order name: Lactate w/ 2H reflex if indic.; Complete Time: 21:33 kb 02/28 18:55 Order name: Protime (+inr); Complete Time: 19:51 kb 02/28 18:55 Order name: Ptt, Activated; Complete Time: 19:51 kb 02/28 18:55 Order name: Flu; Complete Time: 20:52 kb 02/28 18:55 Order name: COVID-19 SARS RT PCR; Complete Time: 20:26 kb 02/28 19:54 Order name: CBC Smear Scan; Complete Time: 22:13 EDMS 02/28 22:14 Order name: BNP kb 02/28 23:21 Order name: Urinalysis w/ reflexes EDMS 02/28 23:21 Order name: Basic Metabolic Panel EDMS 02/28 23:21 Order name: Basic Metabolic Panel EDMS 02/28 23:21 Order name: CBC with Automated Diff EDMS 02/28 23:21 Order name: CBC with Automated Diff EDMS 03/01 00:46 Order name: NT PRO-BNP; Complete Time: 01:01 EDMS 02/28 18:55 Order name: Chest Single View XRAY; Complete Time: 20:52 kb 02/28 18:55 Order name: EKG; Complete Time: 18:56 kb 02/28 18:55 Order name: Accucheck; Complete Time: 19:26 kb 02/28 18:55 Order name: Cardiac monitoring; Complete Time: 19:26 kb 02/28 18:55 Order name: EKG - Nurse/Tech; Complete Time: 19:46 kb 02/28 18:55 Order name: IV Saline Lock - Large Bore; Complete Time: 19:26 kb 02/28 18:55 Order name: Labs collected and sent; Complete Time: 19:26 kb 02/28 18:55 Order name: O2 Per Protocol; Complete Time: 19:26 kb 02/28 18:55 Order name: O2 Sat Monitoring; Complete Time: 19:26 kb 02/28 18:55 Order name: Vital Signs; Complete Time: 19:26 kb EC:49 Rate is 89 beats/min. Rhythm is regular. QRS [place]aines is Normal. QRS interval is normal at kb 78 msec. QT interval is normal at 433 msec. Administered Medications: No medications were administered Disposition Summary: 02/28/23 22:15 Hospitalization Ordered Notes: Hospitalization Status: Observation kb Provider: Eric Cali Condition: Stable kb Problem: new kb Symptoms: are unchanged kb Bed/Room Type: Standard kb Location: Telemetry/MedSurg (observation)(03/01/23 04:05) cg Room Assignment: 230(03/01/23 04:05) cg Diagnosis - Dyspnea kb - COPD/ Chronic obstructive pulmonary disease with (acute) exacerbation kb Forms: - Medication Reconciliation Form kb - SBAR form kb - Leadership Thank You Letter kb Addendum: 03/05/2023 06:59 Co-signature as Attending Physician, Lonnie Guerra MD I reviewed the patient's care r t provided by the Advanced Practice Provider and agree with the diagnosis and treatment plan. Signatures: Dispatcher [employer] EDRacquel Cedeno, DAVID-Derrick HERNANDEZ-Alexandra Kumar, RN RN cg Seth Morse, RN RN bp Lonnie Guerra MD MD rt Corrections: (The following items were deleted from the chart) 02/28 22:30 22:28 ED course: Discussed diagnostic results with patient and daughters. Patient kb states she is not comfortable going home because she feels so short of breath. Daughter is in agreement with admission.. kb 22:30 19:49 Constitutional: This is a well developed, well nourished patient who is awake, kb alert, and in no acute distress. Head/Face: Normocephalic, atraumatic. ENT: Moist Mucous membranes Cardiovascular: Regular rate Abdomen/GI: Soft, non-tender. No distention Skin: Warm, dry with normal turgor. Normal color. MS/ Extremity: Pulses equal, no cyanosis. Neurovascular intact. Full, normal range of motion. Neuro: Awake and alert, GCS 15, oriented to person, place, time, and situation. Moves all extremities. Normal gait. kb 23:32 22:15 Telemetry/MedSurg (observation) kb bp 23:32 22:15 kb bp 03/01 04:05 02/28 23:32 [facility] ER HOLD bp cg 03/01 04:05 02/28 23:32 ERHOLD- bp cg
--- NOTE | 2023-02-28 22:15 | ER ---
Nurse's Notes [facility] Name: Madiha Breaux Age: 88 yrs Sex: Female : 1935 Arrival Date: 02/28/2023 Time: 18:43 Bed 4 Private MD: Diagnosis: Dyspnea;COPD/ Chronic obstructive pulmonary disease with (acute) exacerbation Presentation: 02/28 18:48 Chief complaint: EMS states: SOB SINCE 1600, ON HOME O2. Coronavirus screen: At this bp time, the client does not indicate any symptoms associated with coronavirus-19. Ebola Screen: No symptoms or risks identified at this time. Initial Sepsis Screen: Does the patient meet any 2 criteria? No. Patient's initial sepsis screen is negative. Does the patient have a suspected source of infection? No. Patient's initial sepsis screen is negative. Risk Assessment: Do you want to hurt yourself or someone else? Patient reports no desire to harm self or others. Onset of symptoms was February 28, 2023 at 16:00. 18:48 Method Of Arrival: EMS: [facility] bp 18:48 Acuity: DAMIR 3 bp Triage Assessment: 18:49 General: Appears in no apparent distress. Behavior is calm, cooperative, appropriate bp for age. Pain: Denies pain. Respiratory: Reports shortness of breath Airway is patent Respiratory effort is even, unlabored, Breath sounds are clear bilaterally. Onset: The symptoms/episode began/occurred today, the patient reports symptoms have resolved. Historical: - Allergies: 18:49 Codeine; bp 18:49 Demerol; bp 18:49 Fentanyl; bp 18:49 lamital; bp 18:49 Lidocaine; bp 18:49 meperidine; bp 18:49 Morphine; bp 18:49 Frostproof; bp 18:49 PENICILLINS; bp 18:49 PORK/PORCINE PRODUCT DERIVATIVES; bp 18:49 Sulfa (Sulfonamide Antibiotics); bp - Home Meds: 18:49 atorvastatin 10 mg Oral tablet daily [Active]; Eliquis 2.5 mg Oral tablet 1 tab 2 times bp per day [Active]; furosemide 20 mg Oral tablet 1/2 tablet [Active]; losartan 25 mg Oral tablet 1 tab daily [Active]; Rexulti 1 mg Oral tablet daily [Active]; sertraline 25 mg Oral tablet 1 tab daily [Active]; zolpidem 10 mg Oral tablet every day at bedtime [Active]; - PMHx: 18:49 Atrial fibrillation; COPD; CVA; C-diff; Myocardial infarction; Pacemaker; bp - Immunization history:: Adult Immunizations up to date. - Social history:: Smoking status: unknown. Screenin:00 [facility] ED Fall Risk Assessment (Adult) History of falling in the last 3 months, bp including since admission No falls in past 3 months (0 pts). Abuse screen: Denies threats or abuse. Denies injuries from another. Nutritional screening: No deficits noted. Tuberculosis screening: No symptoms or risk factors identified. Assessment: 18:50 General: SEE TRIAGE NOTE. bp 20:00 Reassessment: Patient appears in no apparent distress at this time. Patient is alert, bp oriented x 3, equal unlabored respirations, skin warm/dry/pink. Cardiovascular: Rhythm is atrial fibrillation. 21:15 Reassessment: Patient appears in no apparent distress at this time. Patient and/or jw7 family updated on plan of care and expected duration. Pain level reassessed. Patient is alert, oriented x 3, equal unlabored respirations, skin warm/dry/pink. 22:15 Reassessment: Patient appears in no apparent distress at this time. Patient and/or jw7 family updated on plan of care and expected duration. Pain level reassessed. Patient is alert, oriented x 3, equal unlabored respirations, skin warm/dry/pink. Vital Signs: 18:48 BP 160 / 86; Pulse 98; Resp 16; Temp 98; Pulse Ox 98% ; bp 20:08 BP 140 / 59; Pulse 87; Resp 23; Pulse Ox 96% ; bp 21:40 BP 110 / 65; Pulse 82; Resp 17; Pulse Ox 95% ; jw7 ED Course: 18:47 Patient arrived in ED. bp 18:49 Triage completed. bp 18:49 Arm band placed on. bp 18:50 Racquel Aguilera FNP-C is PHCP. kb 18:50 Lonnie Guerra MD is Attending Physician. kb 18:59 Seth Morse, AMY is Primary Nurse. bp 19:00 Patient has correct armband on for positive identification. Bed in low position. Call bp light in reach. Side rails up X2. 19:00 No provider procedures requiring assistance completed. Inserted saline lock: 20 gauge bp in right forearm, using aseptic technique. 19:39 Chest Single View XRAY In Process Unspecified. EDMS 22:14 Eric Cali MD is Hospitalizing Provider. kb 03/01 03:02 Provided Education on: need for admit. jw7 03:02 Patient admitted, IV remains in place. jw7 Administered Medications: No medications were administered Medication: 03:02 VIS not applicable for this client. jw7 Outcome: 02/28 22:15 Decision to Hospitalize by Provider. kb 03/01 03:02 Admitted to ER Hold. Please see [facility] for further documentation. jw7 Condition: stable Instructed on the need for admit, Demonstrated understanding of instructions, 04:29 Admitted to Med/surg accompanied by tech, via stretcher, room 230, with oxygen, Report jj7 called to PITER RN 04:29 Condition: good 04:56 Patient left the ED. jw7 Signatures: Dispatcher [employer] EDMS Racquel Aguilera, RESEARCH ENGINEER [employer]-C RESEARCH ENGINEER [employer]-Seth Chand, RN RN Edilia Lake RN RN jw7 Funmi Molina RN RN jj7
[2023-02-28] MEDS ORDERED: ACETAMINOPHEN 500 MG TAB PO PRN (23:17)
[2023-02-28] MEDS ORDERED: ALBUTEROL 2.5 MG/3 ML NEB SOL NEB PRN (23:17)
[2023-02-28] MEDS ORDERED: ONDANSETRON 4 MG (ODT) TAB PO PRN (23:17)
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
[2023-03-01] MEDS ORDERED: HEPARIN 5000 UNIT/ML 1 ML VIAL SQ SCH (01:00)
[2023-03-01] MEDS: IPRATROPIUM BROM 0.5MG/2.5ML NEB SCH ×4 (01:13→20:25)
[2023-03-01 07:05] LABS: Lymphocytes % 11.8 % (15.3-44.8); MCV 90.5 fL (80-100); MPV 7.6 fL (7.6-11.3); Platelets 188 thou/uL (152-406); RBC Red Blood Cell Count 3.21 M/uL (3.86-4.86)
[2023-03-01 07:18] LABS: Potassium 3.6 mEq/L (3.5-5.1)
--- NOTE | 2023-03-01 07:41 | P.PN ---
Date of Service: 03/01/23 Subjective: Pt is doing well; patient Physical Exam: Vitals: reviewed GEN: WNL HEENT: WNL CV: Regular rate & rhythm, no edema Pulm: Clear bilaterally ABD: Soft, nontender, nondistended MSK: No joint tenderness Neuro: No focal deficits Problem List: -Acute COPD exacerbation, on home O2 -Chronic diastolic CHF -Chronic a-fib s/p ablation on anticoagulation -Obstructive sleep apnea -Hypertension -Hyperlipidemia -hx CAD -hx CVA Plan: Acute COPD exacerbation, on home O2 Chronic diastolic CHF nebs, steroids, O2 Chronic a-fib s/p ablation on anticoagulation Continue home eliquis Obstructive sleep apnea BIPAP/CPAP as needed Hypertension Hyperlipidemia hx CAD hx CVA confirm home meds, restart as appropriate
[2023-03-01] MEDS: AZITHROMYCIN 250 MG TAB PO SCH (08:51)
[2023-03-01] MEDS: APIXABAN 2.5 MG TABLET PO SCH ×2 (08:51→21:49)
[2023-03-01] MEDS: predniSONE 20 MG TAB PO SCH (08:51)
--- NOTE | 2023-03-01 17:49 | EKG ---
Test Date: 2023-02-28 Test Time: 19:45:55 [employer]: ROYAL MEASUREMENT RESULTS: Intervals: Rate: 89 DC: QRSD: 78 QT: 356 QTc: 433 [place]: P: DC: QRS: -15 T: 256 INTERPRETIVE STATEMENTS: Atrial fibrillation Septal infarct, age undetermined ST & T wave abnormality, consider anterior ischemia or digitalis effect Abnormal ECG Compared to ECG 02/14/2023 08:15:58 Myocardial infarct finding now present Ventricular-paced complex(es) or rhythm no longer present Atrial flutter no longer present Ventricular premature complex(es) no longer present Left-axis deviation no longer present Prolonged QT interval no longer present ST (T wave) deviation still present Possible ischemia still present Electronically Signed On 03-01-23 17:48:27 NETWORK CONTRACTOR by Chris Strauss
[2023-03-02 00:45] VITALS: BMI 19.3
[2023-03-02] MEDS: IPRATROPIUM BROM 0.5MG/2.5ML NEB SCH ×4 (01:10→19:49)
[2023-03-02 07:38] LABS: Absolute Lymphocytes (CBC) 0.7 K/uL (0.7-4.9); Hematocrit 29.1 % (36.0-45.0); Lymphocytes % 9.3 % (15.3-44.8); MCV 90.1 fL (80-100); MPV 7.7 fL (7.6-11.3); Platelets 206 thou/uL (152-406); RBC Red Blood Cell Count 3.23 M/uL (3.86-4.86)
--- NOTE | 2023-03-02 07:48 | RAD REPORT ---
EXAM DESCRIPTION: Janeth Single View03/02/2023 4:34 am CLINICAL HISTORY: Pneumonia. COMPARISON: February 28 2023 FINDINGS: No significant change mild to moderate patchy right and mild left pulmonary opacities. Lungs hyperaerated Heart mildly enlarged. Pacemaker leads in place. Blunting right lateral costophrenic sulcus could be secondary to a small pleural effusion or pleural thickening IMPRESSION: No significant change in mild to moderate right and mild left pulmonary opacities
[2023-03-02 07:53] LABS: Magnesium 2.2 mg/dL (1.6-2.4); Potassium 3.9 mEq/L (3.5-5.1)
[2023-03-02] MEDS: AZITHROMYCIN 250 MG TAB PO SCH (09:00)
[2023-03-02] MEDS: predniSONE 20 MG TAB PO SCH (09:23)
[2023-03-02] MEDS: APIXABAN 2.5 MG TABLET PO SCH ×2 (09:23→20:30)
[2023-03-03] MEDS: IPRATROPIUM BROM 0.5MG/2.5ML NEB SCH ×2 (01:30→09:05)
[2023-03-03] MEDS: APIXABAN 2.5 MG TABLET PO SCH (08:46)
[2023-03-03] MEDS: predniSONE 20 MG TAB PO SCH (08:46)
--- NOTE | 2023-03-03 10:36 | P.PN ---
Date of Service: 03/02/23 Subjective: Pt is Physical Exam: Vitals: reviewed GEN: WNL HEENT: WNL CV: Regular rate & rhythm, no edema Pulm: Clear bilaterally ABD: Soft, nontender, nondistended MSK: No joint tenderness Neuro: No focal deficits Problem List: -Acute COPD exacerbation, on home O2 -Chronic diastolic CHF -Chronic a-fib s/p ablation on anticoagulation -Obstructive sleep apnea -Hypertension -Hyperlipidemia -hx CAD -hx CVA Plan: Acute COPD exacerbation, on home O2 Chronic diastolic CHF nebs, steroids, O2 Chronic a-fib s/p ablation on anticoagulation Continue home eliquis Obstructive sleep apnea BIPAP/CPAP as needed Hypertension Hyperlipidemia hx CAD hx CVA confirm home meds, restart as appropriate
[2023-03-03 10:51] VITALS: O2SAT 94
[2023-03-03 12:29] VITALS: BP 114/56; TEMP 97.8
== END 2023-03-03 13:40 | disposition home health service (06) | DRG 191 ==
LOC: ER 18:43 → INTOOBSV 23:20 → OBSVTOIN 23:20 → ERHOLD 23:20 → UNDOADMOB 23:20 → 2ND 03-01 04:37 → ERHOLD 03-01 04:37 → 2ND 03-02 15:18 → OBSVTOIN 03-02 15:18 → ERHOLD 03-02 15:18
PROVIDERS: ADMIT Internal Medicine; ATTEND Hospitalist
DX: J44.1 Chronic obstructive pulmonary disease with (acute) exacerbation (principal); I48.20 Chronic atrial fibrillation, unspecified; I50.32 Chronic diastolic (congestive) heart failure; I11.0 Hypertensive heart disease with heart failure; Z99.81 Dependence on supplemental oxygen; I25.10 Atherosclerotic heart disease of native coronary artery without angina pectoris; G47.33 Obstructive sleep apnea (adult) (pediatric); E78.5 Hyperlipidemia, unspecified; Z79.01 Long term (current) use of anticoagulants; Z86.73 Personal history of transient ischemic attack (TIA), and cerebral infarction without residual deficits; Z95.0 Presence of cardiac pacemaker; Z11.52 Encounter for screening for COVID-19
CPT/HCPCS: 36415; 71045; 80048; 80053; 83605; 83735; 83880; 85025; 85610; 85730; 87040; 87635; 87804; 93005; 94640; 99285; J7512; J7644

== ENCOUNTER 2024-11-18 17:45 | Inpatient (IN) | payer OTHER ==
--- OUTSIDE RECORDS SUMMARY | 2024-11-18 17:58 | XMS REPORT | Continuity of Care Document ---
Author Name Unknown Address [address] [facility]. [address] [place] [address] Organization [facility] Address [address] [facility] [address] [place] [address] Care Team Providers Care Desk Monitor Name Role Phone Leslie Hobson Primary Care Physician [phone] LAWANDA ALCARAZ Attending Clinician Unavailable LAWANDA ALCARAZ Attending Clinician Unavailable Gissel Ortega Cardiology Attending Clinician Unavailable Lawanda Alcaraz DO Attending Clinician Doctor Unassigned, [place] Attending Clinician U reza Therapist, Adc Respiratory Attending Clinician U Una Pizarro MD Attending Clinician [phone] UNA BELTRAN Attending Clinician Unavailable GISSELL ESTRELLA Attending Clinician Gissell Perez MD Attending Clinician + [phone] ALTAF LYNNE Attending Clinician Unavailable ALTAF LYNNE Attending Clinician Unavailable Katya Baum RN Attending Clinician Unavailable Brittanie Sepulveda Attending Clinician [phone] Padma Abraham MD Attending Clinician [phone] MAO Attending Clinician Unavaila ricardo Malu, Musaddiq Admitting Clinician Unavailable GISSELL ESTRELLA Admitting Clinician Gissell Perez MD Admitting Clinician [phone] ALTAF LYNNE Admitting Clinician Unavailable Mufti MCCABE, Padma Admitting Clinician [phone] MAO Admitting Clinician Unavaila ricardo Payers Payer Name Policy Type Policy Number Effective Date Expirati on Date Source [employer] MED[employer]VANTAGE [id number] 2021 00:00:00 Problems Condition Name Condition Details Condition Category Status Onset Date Resolution Date Last Treatment Date Treating Clinician Comments Source Rectal bleeding Rectal bleeding Disease Active 10-02 00:00: 00 [facility] Allergies, Adverse Reactions, Alerts Allergy Name Allergy Type Status Severity Reaction(s) Onset Date Inactive Date Treating Clinician Comments Source Demerol Propensi ty to adverse reaction to drug Active 2023-02 0-11 00:00: 00 Karlo Avery PCN (Not Checked) Propensi ty to adverse reaction to drug Active 9- 00:00: 00 Karlo Avery lidocain e DA Active U RASH-UNKNOWN 8-13 00:00: 00 [facility] Penicill ins DA Active [place] HIVES 8- 00:00: 00 [facility] Sulfa (Sulfona mide Antibiot ics) DA Active MO MAKES HER PASS OUT 8- 00:00: 00 [facility] morphine DA Active [place] HIVES 8-10 00:00: 00 [facility] codeine DA Active MO VOMITING 8- 00:00: 00 [facility] hydrocod one DA Active MO VOMITING 8- 00:00: 00 [facility] fentanyl DA Active SV COMA 8-10 00:00: 00 [facility] meperidi ne DA Active MO THROW UP 8- 00:00: 00 [facility] Fentanyl and Related - CLASS Propensi ty to adverse reaction to drug Active 0 1-30 00:00: 00 Karlo Avery PORK DERIVED (PORCINE ) DRUG INGREDI Active Hives 0 8 00:00: 00 [facility] Pork Derived (Porcine ) Propensi ty to adverse reaction s Active Hives 0 8 00:00: 00 Eating pork gave her hives as a child [facility] HYDROCOD ONE DRUG INGREDI Active N/V 10-02 00:00: 00 [facility] FENTANYL DRUG INGREDI Active Other-Cmnt 0 8 00:00: 00 [facility] Codeine Propensi ty to adverse reaction s Active Nausea and/or Vomiting 10-02 00:00: 00 [facility] Meperidi ne Propensi ty to adverse reaction s Active Nausea and/or Vomiting 10-02 00:00: 00 [facility] Fentanyl Propensi ty to adverse reaction s Active Other - See comments 10-02 00:00: 00 "Put me in a coma" [facility] Hydrocod one Propensi ty to adverse reaction s Active Nausea and/or Vomiting 10-02 00:00: 00 [facility] Penicill ins Propensi ty to adverse reaction s Active Hives 10-02 00:00: 00 [facility] Sulfa (Sulfona mide Antibiot ics) Propensi ty to adverse reaction s Active Other - See comments 10-02 00:00: 00 Lethargy, "They can't wake me up" [facility] MEPERIDI NE DRUG INGREDI Active N/V 0 10-02 00:00: 00 [facility] PENICILL INS Drug Class Active Hives 8 00:00: 00 [facility] SULFA (SULFONA MIDE ANTIBIOT ICS) Drug Class Active Other-Cmnt 0 8 00:00: 00 [facility] CODEINE DRUG INGREDI Active N/V 10-02 00:00: 00 [facility] TRAMADOL DRUG INGREDI Active Med N/V 2017-02 00:00: 00 [facility] Tramadol Propensi ty to adverse reaction s Active Nausea and/or Vomiting 2017-02 00:00: 00 Hallucina tions [facility] NO KNOWN ALLERGIE S Drug Class Active [facility] Social History Social Habit Start Date Stop Date Quantity Comments Source History of tobacco use Cigarette Smoker [facility] Gender identity [facility] Sexual orientation [facility] Exposure to SARS-CoV-2 (event) 2022-04-04 00:00:00 2022-04-14 12:01:00 Not sure [facility] Alcohol intake 2022-01-14 00:00:00 2022-01-14 00:00:00 Ex-drinker (finding) [facility] History of Social function 2022-01-13 00:00:00 2022-01-13 00:00:00 [facility] Tobacco use and exposure 2022-01-08 00:00:00 2022-01-08 00:00:00 Smokeless tobacco non-user [facility] History SDOH Food Worry 2021-10-06 00:00:00 2021-10-06 00:00:00 1 [facility] History SDOH Food Scarcity 2021-10-06 00:00:00 2021-10-06 00:00:00 1 [facility] History SDOH Transport Med 2021-10-06 00:00:00 2021-10-06 00:00:00 2 [facility] History SDOH Transport Non-Med 2021-10-06 00:00:00 2021-10-06 00:00:00 2 [facility] Sex Assigned At 1935 00:00:00 1935 00:00:00 [facility] Smoking Status Start Date Stop Date Source Never smoked tobacco [facility] Ex-smoker 2021-10-02 00:00:00 2021-10-02 00:00:00 [facility] Medications Ordered Medication Name Filled Medication Name Start Date Stop Date Current Medication? Ordering Clinician Indication Dosage Frequency Signature (SIG) Comments Components Source atorvastati n 10 mg tablet - 00:00: 00 Yes mg Karlo Avery benzonatate 200 mg capsule 09-05 00:00: 00 Yes 1mg Karlo Avery atorvastati n 10 mg tablet 4- 00:00: 00 Yes mg Karlo Avery azithromyci n 500 mg tablet - 00:00: 00 Yes 1mg Karlo Avery Bromfed DM 2 mg-30 mg-10 mg/5 mL oral syrup 4-04 00:00: 00 Yes 10mg/5 mL Karlo Avery atorvastati n 10 mg tablet 1-16 00:00: 00 Yes mg Karlo Avery atorvastati n 10 mg tablet 2023-02 2-30 00:00: 00 Yes mg Karlo Avery Bromfed DM 2 mg-30 mg-10 mg/5 mL oral syrup -10 00:00: 00 Yes 5mg/5 mL Karlo Avery Wixela Inhub 250 mcg-50 mcg/dose powder for inhalation 9- 00:00: 00 Yes mcg/dos e Karlo Avery atorvastati n 10 mg tablet 6-14 00:00: 00 Yes mg Karlo Avery atorvastati n 10 mg tablet 3-24 00:00: 00 Yes mg Karlo Avery trazodone 50 mg tablet 2-02 00:00: 00 Yes mg Karlo Avery ELIQUIS 2.5 MG TABS 1-26 00:00: 00 Yes Karlo Avery prednisone 20 mg tablet 0 1-25 00:00: 00 Yes mg Karlo Avery mirtazapine 15 mg tablet 0 1-11 00:00: 00 Yes mg Karlo Avery ZOLPIDEM TARTRATE 10 MG TABS 2023-0 1-11 00:00: 00 Yes Karlo Avery PREDNISONE 20 MG TABS 2023-0 1-09 00:00: 00 Yes 20 Karlo Avery atorvastati n 10 mg tablet 2022-02 00:00: 00 Yes mg Karlo Avery carvedilol 3.125 mg tablet 2022-02 00:00: 00 Yes mg Karlo Avery sertraline 50 mg tablet 2022-02 00:00: 00 Yes mg Karlo Avery Eliquis 2.5 mg tablet 2022-02 00:00: 00 Yes mg Karlo Avery zolpidem 10 mg tablet 2022-02 00:00: 00 Yes mg Karlo Avery sulfamethox azole 800 mg-trimetho prim 160 mg tablet 2022-02 00:00: 00 Yes mg Karlo Avery TAKE 1 TABLET TWICE DAILY. 2022-02 00:00: 00 05-17 00:00 :00 No [id number] Karlo Avery levofloxaci n 750 mg tablet 11-03 00:00: 00 Yes mg Karlo Avery 1 tablet by mouth in the evening 11-03 00:00: 00 Yes 10 Karlo Avery TAKE 1 TABLET DAILY. 11-03 00:00: 00 05-17 00:00 :00 No 750 Karlo Avery TAKE 1 TABLET BY MOUTH EVERY DAY 11-01 00:00: 00 Yes Karlo Avery ZOLPIDEM TARTRATE 10 MG TABS 11-01 00:00: 00 Yes Karlo Avery CARVEDILOL 3.125 MG TABS 10-27 00:00: 00 Yes [id number] Karlo Avery BREO ELLIPTA 100-25 MCG/ACT AEPB 10-27 00:00: 00 Yes Karlo Avery ZOLPIDEM TARTRATE 10 MG TABS -05 00:00: 00 Yes Karlo Avery IBUPROFEN 600 MG TABS 10-08 00:00: 00 Yes Karlo Avery METRONIDAZO LE 500 MG TABS 10-01 00:00: 00 Yes Karlo Avery CEPHALEXIN 500 MG - 00:00: 00 Yes Karlo Avery FUROSEMIDE 20 MG TABS - 00:00: 00 Yes Karlo Avery ALBUTEROL SULFATE HFA 108 (90 Base) MCG/ACT AERS - 00:00: 00 Yes Karlo Avery albuterol 90 mcg/actuati on inhaler 08-31 00:00: 00 Yes [id number] 2{puff} Inhale 2 Puffs every 6 (six) hours as needed for Wheezing or Shortness of Breath. [facility] DIFICID 200 MG TABS - 00:00: 00 Yes Karlo Avery TAKE 2 CAPSULES AT 1ST DIARRHEAL BOWEL MOVEMENT, THEN TAKE 1 CAPSULE AT EACH ADDITIONAL BOWEL MOVEMENT. MAXIMUM 8 CAPSULES IN 24 HOURS. 08-16 00:00: 00 05-17 00:00 :00 No 2 Karlo Avery ELIQUIS 2.5 MG TABS 7-07 00:00: 00 Yes Karlo Avery REXULTI 1 MG TABS 0 6-22 00:00: 00 Yes Karlo Avery TAKE 1 TABLET BY MOUTH EVERY 12 HOURS 0 -21 00:00: 00 Yes Karlo Avery LOSARTAN POTASSIUM 25 MG TABS 0 6-15 00:00: 00 Yes Karlo Avery SERTRALINE HCL 25 MG TABS 0 6-07 00:00: 00 Yes Karlo Avery ATORVASTATI N CALCIUM 10 MG TABS 5-31 00:00: 00 Yes Karlo Avery TAKE 1/2 TABLET (5 MG) TO 1 TABLET (10 MG) BY MOUTH DAILY AT BEDTIME 0 -22 00:00: 00 Yes 10 Karlo Avery REXULTI 1 MG TABS 0 5-22 00:00: 00 Yes Karlo Avery REXULTI 1 MG TABS 0 4-24 00:00: 00 Yes Karlo Avery ELIQUIS 2.5 MG TABS 0 4-11 00:00: 00 Yes Karlo Avery CARVEDILOL 6.25 MG TABS 0 4-11 00:00: 00 Yes Karlo Avery SERTRALINE HCL 25 MG TABS 0 3-29 00:00: 00 Yes Karlo Avery ZOLPIDEM TARTRATE 5 MG TABS 03-30 00:00: 00 Yes Karlo Avery FLUOXETINE HYDROCHLORI DE 10 MG - 00:00: 00 Yes Karlo Avery FLUOXETINE HCL 20 MG 03-30 00:00: 00 Yes Karlo Avery ARIPIPRAZOL E 2 MG TABS 03-30 00:00: 00 Yes Karlo Avery USE 1 UNIT DOSE IN NEBULIZER EVERY 4 HOURS NEEDED. 2-14 00:00: 00 05-17 00:00 :00 No [id number] Karlo Avery INHALE 1 TO 2 PUFFS EVERY 6 HOURS NEEDED. 2- 00:00: 00 05-17 00:00 :00 No [id number] Karlo Avery CARVEDILOL 6.25 MG TABS 1-05 00:00: 00 Yes Karlo Avery water for irrigation irrigation solution 2021-02 16:37: 00 01-13 17:56 :43 No PRN, Starting on Tue01/13/22 at 1037, Until Tue01/13/22 at 1156, Routine, Intra-op [facility] simethicone (GAS RELIEF (SIMETHICON E)) 40 mg/0.6 mL drops 2021-02 16:37: 00 01-13 17:56 :43 No PRN, Starting on Tue01/13/22 at 1037, Until Tue01/13/22 at 1156, Routine, Intra-op [facility] lactated ringers IV infusion 1,000 mL 2021-02 16:15: 00 01-13 16:10 :00 No 1000mL at 42 mL/hr, 1,000 mL, IV Infusion, ONCE, 1 dose, On Tue01/13/22 at 1015, Routine, DSU Pre-op [facility] zolpidem 5 mg tablet 2021-02 13:24: 06 Yes 5mg Take 5 mg by mouth at bedtime. [facility] brexpiprazo le (REXULTI) 1 mg Tab 2021-02 13:24: 06 Yes 1mg Take 1 mg by mouth daily. [facility] hydrALAZINE 25 mg tablet 2021-02 13:24: 06 Yes 25mg Take 25 mg by mouth in the morning and 25 mg in the evening. [facility] FLUoxetine 20 mg capsule 2021-02 13:24: 06 Yes 20mg Take 20 mg by mouth in the morning. [facility] atorvastati n 10 mg tablet 2021-02 13:24: 06 Yes 10mg Take 10 mg by mouth at bedtime. [facility] albuterol 0.63 mg/3 mL nebulizer solution 2021-02 13:24: 06 Yes 1{ampul e} Inhale 1 Ampule as needed. [facility] albuterol 90 mcg/actuati on inhaler 2021-02 13:24: 06 Yes 2{puff} Inhale 2 Puffs as needed. [facility] ARIPiprazol e 2 mg tablet 2021-02 13:24: 06 Yes 2mg Take 2 mg by mouth in the morning. [facility] carvediloL 3.125 mg tablet 2021-02 13:24: 06 Yes 3.125mg Take 3.125 mg by mouth in the morning and 3.125 mg in the evening. Take with meals. [facility] furosemide 20 mg tablet 2021-02 13:24: 06 Yes 10mg Take 10 mg by mouth every other day. [facility] apixaban (ELIQUIS) 2.5 mg tablet 2021-02 13:24: 06 Yes 2.5mg Take 2.5 mg by mouth in the morning and 2.5 mg in the evening. [facility] ATORVASTATI N CALCIUM 10 MG TABS 2021-02 00:00: 00 Yes Karlo Avery HYDRALAZINE HYDROCHLORI DE 25 MG TABS 2021-02 00:00: 00 Yes Karlo Avery ARIPIPRAZOL E 2 MG TABS 2021-02 0-19 00:00: 00 Yes Karlo Avery FUROSEMIDE 20 MG TABS 2021-02 0-17 00:00: 00 Yes Karlo Avery PREDNISONE 5 MG TABS 2021-02 0 00:00: 00 Yes Karlo Avery AZITHROMYCI N 250 MG TABS 2021-02 0 00:00: 00 Yes Karlo Avery CARVEDILOL 6.25 MG TABS 10-29 00:00: 00 Yes Karlo Avery PREDNISONE 20 MG TABS 10-19 00:00: 00 Yes Karlo Avery FAMOTIDINE 20 MG TABS 10-19 00:00: 00 Yes Karlo Avery methylpredn isolone sod succ (SOLU-MEDRO L) injection 125 mg 10-16 02:47: 00 10-16 02:51 :00 No 125mg 125 mg, Intravenou s, ONCE, 1 dose, On [facility] 10/15/21 at 2200, 2 mL [facility] acetaminoph en (TYLENOL) tablet 1,000 mg 10-16 01:46: 00 10-16 02:07 :00 No 1000mg 1,000 mg, Oral, ONCE NOW, 1 dose, On [facility] 10/15/21 at 2100, Routine [facility] albuterol (VENTOLIN) inhaler 2 Puff 10-16 01:45: 00 10-16 02:18 :00 No 2{puff} 2 Puff, Inhalation , ONCE, 1 dose, On [facility] 10/15/21 at 2100, [facility] NaCl 0.9% (NS) bolus infusion 500 mL 10-16 01:45: 00 10-16 02:53 :00 No 500mL at 999 mL/hr, 500 mL, IV Infusion, ONCE, 1 dose, On [facility] 10/15/21 at 2045, [facility] nirmatrelvi r-ritonavir (PAXLOVID, EUA,) 150-100 mg tablet 10-15 00:00: 00 10-21 04:59 :00 No [id number] 2{tbl} Take 2 tablets by mouth in the morning and 2 tablets in the evening. Do all this for 5 days. [facility] bebtelovima b, No Charge, 175 mg/2 mL (87.5 mg/mL) Soln 10-15 00:00: 00 10-16 04:59 :00 No [id number] 175mg Inject 2 mL as directed once now for 1 dose. [facility] ARIPIPRAZOL E 2 MG TABS 10-14 00:00: 00 Yes Karlo Avery CARVEDILOL 3.125 MG TABS 10-09 00:00: 00 Yes Karlo Avery zolpidem (AMBIEN) 5 mg tablet 10-05 17:52: 08 Yes 5mg Take 5 mg by mouth at bedtime. [facility] brexpiprazo le (REXULTI) 1 mg Tab 10-05 17:52: 08 Yes 1mg Take 1 mg by mouth daily. [facility] hydrALAZINE 25 mg tablet 10-05 17:52: 08 Yes 25mg Take 25 mg by mouth in the morning and 25 mg in the evening. [facility] FLUoxetine 10 mg capsule 10-05 17:52: 08 Yes 10mg Take 10 mg by mouth in the morning. [facility] atorvastati n (LIPITOR) 10 mg tablet 10-05 17:52: 08 Yes 10mg Take 10 mg by mouth at bedtime. [facility] apixaban (ELIQUIS) 5 mg tablet 10-05 14:13: 20 10-05 00:00 :00 No 5mg Take 5 mg by mouth in the morning and 5 mg in the evening. [facility] apixaban (ELIQUIS) tablet 2.5 mg 10-05 01:00: 00 Yes 2.5mg 2.5 mg, Oral, BID, First dose on 10/04/21 at 2000, Until Discontinu ed, Routine
Indicatio ns: Non-Valvul ar Atrial Fibrillati on [facility] ELIQUIS 2.5 MG TABS 10-05 00:00: 00 Yes Karlo Avery budesonide- formoteroL 160-4.5 mcg/actuati on inhaler 10-05 00:00: 00 Yes [id number] 2{puff} Inhale 2 Puffs in the morning and 2 Puffs in the evening. [facility] vancomycin 125 mg capsule 10-05 00:00: 00 Yes [id number] 125mg Take 1 capsule by mouth 4 (four) times daily. [facility] apixaban 2.5 mg tablet 10-05 00:00: 00 01-04 05:59 :00 No [id number] 2.5mg Take 1 tablet by mouth in the morning and 1 tablet in the evening. Do all this for 90 days. Indication s: atrial fibrillati on [facility] zolpidem (AMBIEN) tablet 5 mg 10-04 21:45: 27 Yes 5mg 5 mg, Oral, QHSPRN, 3 doses, Starting on Tue10/04/21 at 1645, Until Discontinu ed, Routine, Insomnia [facility] brexpiprazo le (REXULTI) Tab 1 mg 10-04 14:00: 00 Yes 1mg 1 mg, Oral, DAILY, First dose on Tue10/04/21 at 0900, Until Discontinu ed, Routine
Medicatio n Name: rexulti
Form: Tablet
Length of Therapy: Indefinite
How soon needed (normally 72 hours needed to procure): 0-24 hrs
Juliana son for non-formul thiago use: PATIENT CURRENTLY TAKING NONFORMULA RY PRODUCT [facility] fidaxomicin (DIFICID) tablet 200 mg 10-04 13:00: 00 10-14 12:59 :00 No 200mg 200 mg, Oral, BID, 20 doses, First dose on Tue10/04/21 at 0800, Last dose on Tue10/13/21 at 2000, Routine
Reason for Anti-Infec tive: Documented Infection< br>Documen shazia Infection Site: Abdominal< br>Duratio n of Therapy: 10 days [facility] atorvastati n (LIPITOR) tablet 10 mg 10-04 02:00: 00 Yes 10mg 10 mg, Oral, QHS, First dose on 10/03/21 at 2100, Until Discontinu ed, Routine [facility] budesonide- formoteroL (SYMBICORT) 160-4.5 mcg/actuati on inhaler 2 Puff 10-04 01:00: 00 Yes 2{puff} 2 Puff, Inhalation , BID, First dose on 10/03/21 at 2000, Until Discontinu ed, Routine [facility] zolpidem (AMBIEN) tablet 5 mg 10-03 22:04: 06 10-04 02:54 :00 No 5mg 5 mg, Oral, QHSPRN, 1 dose, Starting on 10/03/21 at 1704, Until Discontinu ed, Routine, Insomnia [facility] ipratropium -albuteroL (DUONEB) 0.5 mg-3 mg(2.5 mg base)/3 mL nebulizer solution 3 mL 10-03 14:32: 09 Yes 3mL 3 mL, Inhalation , TIDPRN, Starting on 10/03/21 at 0932, Until Discontinu ed, Routine, Wheezing, Shortness of Breath [facility] pantoprazol e (PROTONIX) injection 40 mg 10-03 14:15: 00 Yes 40mg 40 mg, Slow IV Push, Q12H, First dose (after last modificati on) on 10/03/21 at 0915, Until Discontinu ed [facility] FLUoxetine (PROZAC) capsule 10 mg 10-03 14:00: 00 Yes 10mg 10 mg, Oral, DAILY, First dose on 10/03/21 at 0900, Until Discontinu ed, Routine [facility] pantoprazol e (PROTONIX) EC tablet 40 mg 10-03 14:00: 00 10-03 13:58 :02 No 40mg 40 mg, Oral, DAILY, First dose on 10/03/21 at 0900, Until Discontinu ed, Routine [facility] ARIPiprazol e (ABILIFY) tablet 5 mg 10-03 14:00: 00 10-03 21:35 :33 No 5mg 5 mg, Oral, DAILY, First dose on Tue10/03/21 at 0900, Until Discontinu ed, Routine [facility] metroNIDAZO LE (FLAGYL) tablet 250 mg 10-03 13:00: 00 10-04 12:35 :06 No 250mg 250 mg, Oral, Q12H, 20 doses, First dose on Tue10/03/21 at 0800, Last dose on Tue10/12/21 at 2000, Routine
Reason for Anti-Infec tive: Documented Infection< br>Documen shazia Infection Site: Abdominal< br>Duratio n of Therapy: 10 days [facility] ciprofloxac in HCl (CIPRO) tablet 500 mg 10-03 13:00: 00 10-04 12:35 :06 No 500mg 500 mg, Oral, BID, 20 doses, First dose on Tue10/03/21 at 0800, Last dose on Tue10/12/21 at 2000, HIEU
Re ason for Anti-Infec tive: Empiric Therapy for Suspected Infection< br>Empiric Therapy Site: Abdominal< br>Duratio n of therapy: 5 days [facility] zolpidem (AMBIEN) tablet 5 mg 10-03 03:00: 00 10-03 03:29 :00 No 5mg 5 mg, Oral, QHS, 1 dose, First dose (after last modificati on) on Tue10/02/21 at 2200, Routine [facility] acetaminoph en (TYLENOL) tablet 650 mg 10-03 02:57: 09 Yes 650mg 650 mg, Oral, Q6HPRN, Starting on Tue10/02/21 at 2157, Until Discontinu ed, Routine, Pain (scale 1-3) [facility] iopamidol (ISOVUE 370-500 mL) injection 60 mL 10-02 22:30: 00 10-02 22:30 :00 No [id number] 60mL 60 mL, Intravenou s, ONCE, 1 dose, On Tue10/02/21 at 1730, Routine [facility] pantoprazol e (PROTONIX) 40 mg in NaCl 0.9% (NS) 20 mL syringe 10-02 21:30: 00 10-02 21:32 :00 No 40mg 40 mg, IV Push, ONCE, 1 dose, On Tue10/02/21 at 1630, Administer over 2 Minutes, 20 mL [facility] ZOLPIDEM TARTRATE 5 MG TABS 10-01 00:00: 00 Yes Karlo Avery FLUOXETINE 20MG CAPSULES 10-01 00:00: 00 Yes Karlo Avery TAKE 1 TABLET BY MOUTH TWICE DAILY 09-28 00:00: 00 Yes Karlo Avery TAKE ONE CAPSULE BY MOUTH DAILY FOR 1 WEEK THEN 2 CAPSULES DAILY 09-18 00:00: 00 Yes Karlo Avery ZOLPIDEM TARTRATE 10 MG TABS 09-18 00:00: 00 Yes Karlo Avery TAKE 1 TABLET BY MOUTH TWICE DAILY 08-30 00:00: 00 Yes Karlo Avery METRONIDAZO LE 500 MG TABS 08-30 00:00: 00 Yes Karlo Avery ELIQUIS 5 MG TABS 08-21 00:00: 00 Yes Karlo Avery Vital Signs Vital Name Observation Time Observation Value Comments S ource Systolic blood pressure 2022-08-31 16:06:00 166 mm[Hg] [place] [facility] Diastolic blood pressure 2022-08-31 16:06:00 61 mm[Hg] [place] [facility] Heart rate 2022-08-31 16:06:00 69 /min [facility] Respiratory rate 2022-08-31 16:06:00 17 /min [facility] Body height 2022-08-31 16:06:00 152.4 cm [facility] Body weight 2022-08-31 16:06:00 46.267 kg [facility] BMI 2022-08-31 16:06:00 19.92 kg/m2 [facility] Oxygen saturation in Arterial blood by Pulse oximetry 2022-08-31 16:06:00 95 /min [facility] Systolic blood pressure 2022-01-13 18:10:00 170 mm[Hg] [facility] Diastolic blood pressure 2022-01-13 18:10:00 60 mm[Hg] [facility] Heart rate 2022-01-13 18:10:00 78 /min [facility] Respiratory rate 2022-01-13 18:10:00 18 /min [facility] Oxygen saturation in Arterial blood by Pulse oximetry 2022-01-13 18:10:00 94 /min [facility] Body temperature 2022-01-13 17:40:00 36.17 Bel [facility] Body weight 2022-01-08 18:00:00 52.164 kg [facility] BMI 2022-01-08 18:00:00 22.46 kg/m2 [facility] Systolic blood pressure 2022-01-13 17:50:00 158 mm[Hg] [facility] Diastolic blood pressure 2022-01-13 17:50:00 62 mm[Hg] [facility] Heart rate 2022-01-13 17:50:00 77 /min [facility] Respiratory rate 2022-01-13 17:50:00 13 /min [facility] Oxygen saturation in Arterial blood by Pulse oximetry 2022-01-13 17:50:00 95 /min [facility] Body temperature 2022-01-13 17:40:00 36.17 Bel [facility] Body weight 2022-01-08 18:00:00 52.164 kg [facility] BMI 2022-01-08 18:00:00 22.46 kg/m2 [facility] Systolic blood pressure 2021-10-16 02:55:00 137 mm[Hg] [facility] Diastolic blood pressure 2021-10-16 02:55:00 53 mm[Hg] [facility] Heart rate 2021-10-16 02:55:00 67 /min [facility] Respiratory rate 2021-10-16 02:55:00 14 /min [facility] Oxygen saturation in Arterial blood by Pulse oximetry 2021-10-16 02:55:00 93 /min [facility] Body temperature 2021-10-16 00:49:00 38.06 Bel [facility] Body height 2021-10-16 00:49:00 152.4 cm [facility] Body weight 2021-10-16 00:49:00 55.339 kg [facility] BMI 2021-10-16 00:49:00 23.83 kg/m2 [facility] Systolic blood pressure 2021-10-05 20:21:00 159 mm[Hg] [facility] Diastolic blood pressure 2021-10-05 20:21:00 64 mm[Hg] [facility] Heart rate 2021-10-05 20:21:00 69 /min [facility] Body temperature 2021-10-05 20:21:00 36.28 Bel [facility] Respiratory rate 2021-10-05 20:21:00 18 /min [facility] Oxygen saturation in Arterial blood by Pulse oximetry 2021-10-05 20:21:00 96 /min [facility] Body height 2021-10-03 03:00:00 152.4 cm [facility] Body weight 2021-10-03 03:00:00 54.432 kg [facility] BMI 2021-10-03 03:00:00 23.44 kg/m2 [facility] BP Systolic 2024-09-05 10:45:00 164 mm[Hg] Damien Avery BP Diastolic 2024-09-05 10:45:00 68 mm[Hg] Cr Avery Weight Measured 2024-09-05 10:45:00 Karlo Avery Height Measured 2024-09-05 10:45:00 60.00 inches Karlo Avery Body Temperature 2024-09-05 10:45:00 98.00 degrees Karlo Avery Heart Rate 2024-09-05 10:45:00 75.00 /min Lyn en F Bennie Respiratory Rate 2024-09-05 10:45:00 18.00 /min Karlo F Bennie BP Systolic 2024-08-23 17:17:00 175 mm[Hg] Step hen F Bennie BP Diastolic 2024-08-23 17:17:00 80 mm[Hg] Cr phen F Bennie Weight Measured 2024-08-23 17:17:00 96.80 pounds Karlo F Bennie Height Measured 2024-08-23 17:17:00 60.00 inches Karlo F Bennie Body Temperature 2024-08-23 17:17:00 Karlo F Bennie Heart Rate 2024-08-23 17:17:00 76.00 /min Lyn en F Bennie Respiratory Rate 2024-08-23 17:17:00 17.00 /min Karlo F Bennie BP Systolic 2024-05-11 10:47:00 133 mm[Hg] Step hen F Bennie BP Diastolic 2024-05-11 10:47:00 74 mm[Hg] Cr phen F Bennie Weight Measured 2024-05-11 10:47:00 102.40 pounds Karlo F Bennie Height Measured 2024-05-11 10:47:00 60.00 inches Karlo F Bennie Body Temperature 2024-05-11 10:47:00 97.40 degrees Karlo F Bennie Heart Rate 2024-05-11 10:47:00 82.00 /min Lyn en F Bennie Respiratory Rate 2024-05-11 10:47:00 18.00 /min Karlo F Bennie BP Systolic 2023-11-18 09:45:00 159 mm[Hg] Step hen F Bennie BP Diastolic 2023-11-18 09:45:00 61 mm[Hg] Cr phen F Bennie Weight Measured 2023-11-18 09:45:00 108.20 pounds Karlo F Bennie Height Measured 2023-11-18 09:45:00 60.00 inches Karlo F Bennie Body Temperature 2023-11-18 09:45:00 98.20 degrees Karlo F Bennie Heart Rate 2023-11-18 09:45:00 69.00 /min Lyn en F Bennie Respiratory Rate 2023-11-18 09:45:00 18.00 /min Karlo F Bennie BP Systolic 2023-10-18 09:57:00 149 mm[Hg] Step hen F Bennie BP Diastolic 2023-10-18 09:57:00 75 mm[Hg] Cr phen F Bennie Weight Measured 2023-10-18 09:57:00 106.40 pounds Karlo F Bennie Height Measured 2023-10-18 09:57:00 60.00 inches Karlo F Bennie Body Temperature 2023-10-18 09:57:00 96.80 degrees Karlo F Bennie Heart Rate 2023-10-18 09:57:00 68.00 /min Lyn en F Bennie Respiratory Rate 2023-10-18 09:57:00 18.00 /min Karlo F Bennie BP Systolic 2023-07-22 14:45:00 Step hen F Bennie BP Diastolic 2023-07-22 14:45:00 Cr phen F Bennie Weight Measured 2023-07-22 14:45:00 Karlo F Bennie Height Measured 2023-07-22 14:45:00 Karlo F Bennie Body Temperature 2023-07-22 14:45:00 Karlo F Bennie Heart Rate 2023-07-22 14:45:00 Lyn en F Bennie Respiratory Rate 2023-07-22 14:45:00 Karlo F Bennie BP Systolic 2023-03-16 09:47:00 104 mm[Hg] Step hen F Bennie BP Diastolic 2023-03-16 09:47:00 51 mm[Hg] Cr phen F Bennie Weight Measured 2023-03-16 09:47:00 Karlo F Bennie Height Measured 2023-03-16 09:47:00 Karlo F Bennie Body Temperature 2023-03-16 09:47:00 Karlo F Bennie Heart Rate 2023-03-16 09:47:00 Lyn en F Bennie Respiratory Rate 2023-03-16 09:47:00 Karlo F Bennie BP Systolic 2022-12-14 11:56:00 158 mm[Hg] Step hen F Bennie BP Diastolic 2022-12-14 11:56:00 71 mm[Hg] Cr phen F Bennie Weight Measured 2022-12-14 11:56:00 93.40 pounds Karlo F Bennie Height Measured 2022-12-14 11:56:00 60.00 inches Karlo F Bennie Body Temperature 2022-12-14 11:56:00 98.10 degrees Karlo F Bennie Heart Rate 2022-12-14 11:56:00 88.00 /min Lyn en F Bennie Respiratory Rate 2022-12-14 11:56:00 17.00 /min Karlo F Bennie BP Systolic 2022-11-03 11:29:00 154 mm[Hg] Step hen F Bennie BP Diastolic 2022-11-03 11:29:00 76 mm[Hg] Cr phen F Bennie Weight Measured 2022-11-03 11:29:00 96.00 pounds Karlo F Bennie Height Measured 2022-11-03 11:29:00 60.00 inches Karlo F Bennie Body Temperature 2022-11-03 11:29:00 97.90 degrees Karlo F Bennie Heart Rate 2022-11-03 11:29:00 82.00 /min Lyn en F Bennie Respiratory Rate 2022-11-03 11:29:00 18.00 /min Karlo F Bennie BP Systolic 2022-10-25 11:12:00 148 mm[Hg] Step hen F Bennie BP Diastolic 2022-10-25 11:12:00 69 mm[Hg] Cr phen F Bennie Weight Measured 2022-10-25 11:12:00 98.60 pounds Karlo F Bennie Height Measured 2022-10-25 11:12:00 60.00 inches Kalro F Bennie Body Temperature 2022-10-25 11:12:00 98.00 degrees Karlo F Bennie Heart Rate 2022-10-25 11:12:00 83.00 /min Lyn en F Bennie Respiratory Rate 2022-10-25 11:12:00 17.00 /min Karlo F Bennie BP Systolic 2022-10-19 11:18:00 133 mm[Hg] Step hen F Bennie BP Diastolic 2022-10-19 11:18:00 80 mm[Hg] Cr phen F Bennie Weight Measured 2022-10-19 11:18:00 100.60 pounds Karlo F Bennie Height Measured 2022-10-19 11:18:00 60.00 inches Karlo F Bennie Body Temperature 2022-10-19 11:18:00 98.10 degrees Karlo F Bennie Heart Rate 2022-10-19 11:18:00 106.00 /min Step hen F Bennie Respiratory Rate 2022-10-19 11:18:00 20.00 /min Karlo F Bennie BP Systolic 2022-09-16 15:22:00 150 mm[Hg] Step hen F Bennie BP Diastolic 2022-09-16 15:22:00 68 mm[Hg] Cr phen F Bennie Weight Measured 2022-09-16 15:22:00 99.00 pounds Karlo F Bennie Height Measured 2022-09-16 15:22:00 60.00 inches Karlo F Bennie Body Temperature 2022-09-16 15:22:00 98.20 degrees Karlo F Bennie Heart Rate 2022-09-16 15:22:00 71.00 /min Lyn en F Bennie Respiratory Rate 2022-09-16 15:22:00 19.00 /min Karlo F Bennie BP Systolic 2022-09-16 15:12:00 150 mm[Hg] Step hen F Bennie BP Diastolic 2022-09-16 15:12:00 68 mm[Hg] Cr phen F Bennie Weight Measured 2022-09-16 15:12:00 99.00 pounds Karlo F Bennie Height Measured 2022-09-16 15:12:00 60.00 inches Karlo F Bennie Body Temperature 2022-09-16 15:12:00 98.20 degrees Karlo F Bennie Heart Rate 2022-09-16 15:12:00 71.00 /min Lyn en F Bennie Respiratory Rate 2022-09-16 15:12:00 19.00 /min Karlo F Bennie BP Systolic 2022-08-16 09:44:00 182 mm[Hg] Step hen F Bennie BP Diastolic 2022-08-16 09:44:00 71 mm[Hg] Cr phen F Bennie Weight Measured 2022-08-16 09:44:00 100.00 pounds Karlo F Bennie Height Measured 2022-08-16 09:44:00 60.00 inches Karlo F Bennie Body Temperature 2022-08-16 09:44:00 97.60 degrees Karlo F Bennie Heart Rate 2022-08-16 09:44:00 68.00 /min Lyn en F Bennie Respiratory Rate 2022-08-16 09:44:00 19.00 /min Karlo F Bennie BP Systolic 2022-06-29 10:25:00 163 mm[Hg] Step hen F Bennie BP Diastolic 2022-06-29 10:25:00 67 mm[Hg] Cr Avery Weight Measured 2022-06-29 10:25:00 101.60 pounds Karlo Avery Height Measured 2022-06-29 10:25:00 60.00 inches Karlo Avery Body Temperature 2022-06-29 10:25:00 98.20 degrees Karlo Avery Heart Rate 2022-06-29 10:25:00 69.00 /min Lny en Yuli Avery Respiratory Rate 2022-06-29 10:25:00 19.00 /min Karlo Avery Procedures Procedure Date / Time Performed Performing Clinician Source [id number] Ultrasound, Retroperitoneal (eg, Renal, Aorta, Nodes), Real Time With Image Documentation; Complete 2022-12-23 00:00:00 Karlo Avery [id number] 2022-09-26 00:00:00 [facility] [id number] 2022-09-21 00:00:00 ABDYA [facility] [id number] 2022-09-18 00:00:00 [facility] [id number] 2022-09-18 00:00:00 [facility] [id number] 2022-09-18 00:00:00 [facility] NO SHOW OR MISSED APPOINTMEN T POLICY ACKNOWLEDGEMENT 2022-08-31 15:26:16 Doctor Unassigned, [place] [facility] ASSIGNMENT OF BENEFITS 2022-08-31 15:25:46 Doctor Unassigned, [place] [facility] REFERRAL- REQUEST/RESPONSE 2022-06-30 05:01:00 Doctor Unassigned, [place] [facility] ASSIGNMENT OF BENEFITS 2022-04-14 17:43:44 Doctor Unassigned, [place] [facility] COLONOSCOPY (ENDO) 2022-01-13 17:07:41 Gissel Ortega [facility] COLONOSCOPY (ENDO) 2022-01-13 17:07:41 Gissel Ortega [facility] COLONOSCOPY 2022-01-13 17:01:00 Gissell Estrella [facility] PATIENT QUESTIONNAIRE 2022-01-13 06:01:00 Doctor Unassigned, [place] [facility] EXTERNAL PROVIDER RECORDS 2021-12-28 06:01:00 Doctor Unassigned, [place] [facility] EXTERNAL PROVIDER RECORDS 2021-12-28 06:01:00 Doctor Unassigned, [place] [facility] EXTERNAL PROVIDER RECORDS 2021-12-25 06:01:00 Doctor Unassigned, [place] [facility] EXTERNAL PROVIDER RECORDS 2021-12-25 06:01:00 Doctor Unassigned, [place] [facility] DIRECTIVE TO PHYSICIAN 2021-10-26 05:01:00 Doctor Unassigned, [place] [facility] XR CHEST 1 VW 2021-10-16 01:40:24 Maged [facility] URINALYSIS 2021-10-16 01:26:00 Maged [facility] TROPONIN I 2021-10-16 01:09:00 Maged [facility] COMP. METABOLIC PANEL (39130) 2021-10-16 01:09:00 Maged [facility] CBC WITH DIFF 2021-10-16 01:09:00 Maged [facility] N-TERMINAL PRO-BNP 2021-10-16 01:09:00 Maged [facility] COVID-19 (ID NOW RAPID TESTING) 2021-10-16 01:09:00 Maged [facility] LACTIC ACID WHOLE BLOOD 2021-10-16 01:08:00 Maged [facility] CONSENT/REFUSAL FOR DIAGNOSI S AND TREATMENT 2021-10-16 00:42:00 Doctor Unassigned, [place] [facility] HOME HEALTH - OTHER 2021-10-07 05:01:00 Doctor Unassigned, [place] [facility] AUTHORIZATION FOR RELEASE OF PHI 2021-10-06 05:01:00 Doctor Unassigned, [place] [facility] MAGNESIUM 2021-10-05 09:12:00 Abdoulaye Geller [facility] BASIC METABOLIC PANEL (NA, K , CL, CO2, GLUCOSE, BUN, CREATININE, CA) 2021-10-05 09:12:00 [facility] 2021-10-05 09:12:00 Abdoulaye Geller [facility] ELECTROENCEPHALOGRAM 2021-10-05 00:00:00 Abdoulaye Geller [facility] MAGNESIUM 2021-10-04 09:50:00 Yasmani Mercedes [facility] BASIC METABOLIC PANEL (NA, K , CL, CO2, GLUCOSE, BUN, CREATININE, CA) 2021-10-04 09:50:00 Yasmani Mercedes [facility] CBC WITH DIFF 2021-10-04 09:50:00 Green, Lisseth [facility] HB ABO GROUPING 2021-10-04 02:50:00 Yasmani Mercedes [facility] CBC WITH DIFF 2021-10-04 02:49:00 Green, [facility] COMP. METABOLIC PANEL ([id number]) 2021-10-03 16:43:00 Green, Lisseth [facility] CBC WITH DIFF 2021-10-03 16:43:00 Green, [facility] CLOSTRIDIUM DIFFICILE TOXIN 2021-10-03 11:15:00 Flash [facility] FECAL PATHOGENS BY PCR 2021-10-03 11:14:00 Flash [facility] OCCULT (GUAIAC) BLOOD 2021-10-03 11:13:00 Flash [facility] PROTHROMBIN TIME / INR 2021-10-03 03:52:00 Flash [facility] ACTIVATED PARTIAL THRMPLAS ANA 2021-10-03 03:52:00 Flash [facility] BASIC METABOLIC PANEL (NA, K , CL, CO2, GLUCOSE, BUN, CREATININE, CA) 2021-10-03 03:30:00 [facility] CBC WITH DIFF 2021-10-03 03:30:[address] [facility] [address] ABDOMEN PELVIS W CONTRAST 2021-10-02 21:30:36 Brittanie Pal [facility] ABORH CONFIRMATION (LAB ONLY) 2021-10-02 21:30:00 Brittanie Pal [facility] HB ECG ROUTINE & RHYTHM STRIP 2021-10-02 20:58:31 Brittanie Pal [facility] COVID-19 (ID NOW RAPID TESTING) 2021-10-02 20:47:00 Brittanie Pal [facility] LAB ONLY COVID INTERPRETATION 2021-10-02 20:47:00 Brittanie Pal [facility] COMP. METABOLIC PANEL ([id number]) 2021-10-02 20:44:00 Brittanie Pal [facility] IRON PANEL 2021-10-02 20:44:00 Yasmani Mercedes [facility] CBC WITH DIFF 2021-10-02 20:44:00 Brittanie Pal [facility] GLYCOSYLATED HEMOGLOBIN (A1C) 2021-10-02 20:44:00 Tyesha Vidales [facility] PROTHROMBIN TIME / INR 2021-10-02 20:44:00 Brittanie Pal [facility] ACTIVATED PARTIAL THRMPLAS ANA 2021-10-02 20:44:00 Brittanie Pal [facility] HB ABO GROUPING 2021-10-02 20:40:00 Brittanie Pal [facility] NOTICE OF PRIVACY PRACTICES 2021-10-02 19:48:10 Doctor Unassigned, [place] [facility] HOSPITAL ADMISSION 2021-10-02 05:01:00 Doctor Unassigned, [place] [facility] Encounters Start Date/Time End Date/Time Encounter Type Admission Type Attending [facility] Care Facility Care Department Encounter ID Source 2024-09-05 10:43:43 2024-09-05 10:43:43 Outpatient SFA SFA [id number] Karlo Roldan Bennie 2024-09-05 00:00:00 2024-09-05 00:00:00 Outpatient Visit [facility] [id number] Karlo Roldan Bennie 2024-09-05 00:00:00 2024-09-05 00:00:00 Outpatient Visit [facility] [id number] Karlo Avery 2024-08-23 17:12:31 2024-08-23 17:12:31 Outpatient SFA SFA [id number] Karlo Avery 2024-08-23 00:00:00 2024-08-23 00:00:00 Outpatient Visit SFA [id number] Karlo Avery 2024-05-11 10:39:03 2024-05-11 10:39:03 Outpatient SFA SFA [id number] Karlo Avery 2024-05-11 00:00:00 2024-05-11 00:00:00 Outpatient Visit SFA [id number] Karlo Avery 2024-02-23 14:59:49 2024-02-23 14:59:49 Outpatient SFA SFA [id number] Karlo Avery 2024-02-23 00:00:00 2024-02-23 00:00:00 Outpatient Visit SFA [id number] Karlo Avery 2023-11-18 09:33:30 2023-11-18 09:33:30 Outpatient SFA SFA [id number] Karlo Avery 2023-11-18 00:00:00 2023-11-18 00:00:00 Outpatient Visit SFA [id number] Karlo Avery 2023-10-18 09:50:23 2023-10-18 09:50:23 Outpatient SFA SFA [id number] Karlo Avery 2023-10-18 00:00:00 2023-10-18 00:00:00 Outpatient Visit SFA [id number] Karlo Avery 2023-08-05 10:27:10 2023-08-05 10:27:10 Outpatient SFA SFA [id number] Karlo Avery 2023-07-22 14:45:22 2023-07-22 14:45:22 Outpatient SFA SFA [id number] Karlo Avery 2023-07-22 00:00:00 2023-07-22 00:00:00 Outpatient Visit SFA [id number] Karlo Avery 2023-05-01 10:09:14 2023-05-01 10:09:14 Outpatient SFA SFA [id number] Karlo Avery 2022-12-23 09:47:37 2022-12-23 09:47:37 Outpatient SFA SFA [id number] Karlo Avery 2022-12-14 11:43:25 2022-12-14 11:43:25 Outpatient SFA SFA [id number] Karlo Avery 2022-12-09 09:00:00 2022-12-09 09:00:00 Outpatient LAWANDA LEE [facility] [id number] [facility] 2022-11-03 11:10:16 2022-11-03 11:10:16 Outpatient SFA SFA [id number] Karlo Avery 2022-10-25 11:02:06 2022-10-25 11:02:06 Outpatient SFA SFA [id number] Karlo Avery 2022-10-19 10:59:45 2022-10-19 10:59:45 Outpatient SFA SFA [id number] Karlo Avery 2022-10-08 11:25:17 2022-10-08 11:25:17 Outpatient SFA SFA [id number] Karlo Avery 2022-09-19 12:29:00 2022-10-01 15:01:00 Inpatient CARRIE MetcalfrafaayshaGissel [facility].02 [id number] [facility] 2022-09-16 15:01:08 2022-09-16 15:01:08 Outpatient SFA SFA [id number] Karlo Avery 2022-08-31 10:00:00 2022-08-31 10:30:00 Office Visit Lawanda Alcaraz [facility] 1.84.114 350.1.13.10 4.2.7.2.686 [id number] [facility] 2022-08-31 10:00:00 2022-08-31 10:00:00 Outpatient R LAWANDA ALCARAZ [facility] [id number] [facility] 2022-08-31 00:00:00 2022-08-31 00:00:00 Orders Only Doctor Unassigned, [place] [facility] 1..114 350.1.13.10 4.2.7.2.686 [id number] [facility] 2022-08-17 10:07:27 2022-08-17 10:07:27 Outpatient [facility] [id number] Karlo Roldan Bennie 2022-08-16 09:37:42 2022-08-16 09:37:42 Outpatient [facility] [id number] Karlo Roldan [place] 2022-06-30 00:00:00 2022-06-30 00:00:00 Orders Only Doctor Unassigned, [place] [facility] 1.20.114 350.1.13.10 4.2.7.2.686 [id number] [facility] 2022-06-29 10:14:51 2022-06-29 10:14:51 Outpatient [facility] [id number] Karlo Roldan Bennie 2022-05-06 13:57:04 2022-05-06 13:57:04 Outpatient [facility] [id number] Karlo Roldan Bennie 2022-04-14 11:30:00 2022-04-14 12:40:42 Upkeep Mechanic Visit Therapist, Silvia Respiratory Una Beltran [facility] 1.840.114 350.1.13.10 4.2.7.2.686 [id number] [facility] 2022-04-14 11:30:00 2022-04-14 11:30:00 Outpatient R UNA BELTRAN [facility] [id number] [facility] 2022-04-14 00:00:00 2022-04-14 00:00:00 Orders Only Doctor Unassigned, [place] [facility] 1.0.114 350.1.13.10 4.2.7.2.686 [id number] [facility] 2022-03-22 16:55:48 2022-03-22 16:55:48 Outpatient SFA SFA [id number] Karlo Roldan Bennie 2022-03-08 14:40:04 2022-03-08 14:40:04 Outpatient SFA SFA [id number] Karlo Roldan Bennie 2022-03-04 11:01:10 2022-03-04 11:01:10 Outpatient SFA [facility] [id number] Karlo Roldan Bennie 2022-02-18 09:00:08 2022-02-18 09:00:08 Outpatient SFA SFA [id number] Karlo Roldan [place] 2022-02-04 10:49:39 2022-02-04 10:49:39 Outpatient SFA SFA [id number] Karlo Roldan Bennie 2022-01-13 09:58:00 2022-01-13 12:30:00 Outpatient R GISSELL MALDONADO [facility] [id number] [facility] 2022-01-13 09:58:00 2022-01-13 12:30:00 Hospital Encounter Gissell Maldonado [facility] 1.0.114 350.1.13.10 4.2.7.2.686 [id number] [facility] 2022-01-13 11:07:00 2022-01-13 11:51:00 Surgery Gissell Maldonado [facility] [place] [facility] 1.840.114 350.1.13.10 4.2.7.2.686 [id number] [facility] 2022-01-13 00:00:00 2022-01-13 00:00:00 Orders Only Doctor Unassigned, [place] [facility] 1.2.840.114 350.1.13.10 4.2.7.2.686 [id number] [facility] 2021-10-26 00:00:00 2021-10-26 00:00:00 Orders Only Doctor Unassigned, [place] [facility] 1.2.840.114 350.1.13.10 4.2.7.2.686 [id number] [facility] 2021-10-15 19:43:00 2021-10-15 21:57:00 Emergency X ALTAF LYNNE TIMOTHY [facility] [id number] [facility] 2021-10-15 19:43:00 2021-10-15 21:57:00 Emergency Altaf Lynne [facility] 1.2.840.114 350.1.13.10 4.2.7.2.686 [id number] [facility] 2021-10-07 00:00:00 2021-10-07 00:00:00 Orders Only Doctor Unassigned, [place] [facility] 1.2.840.114 350.1.13.10 4.2.7.2.686 [id number] [facility] 2021-10-06 00:00:00 2021-10-06 00:00:00 Transition of Care Katya Baum 1.2.840.114 350.1.13.10 4.2.7.2.686 [id number] [facility] 2021-10-06 00:00:00 2021-10-06 00:00:00 Orders Only Doctor Unassigned, [place] [facility] 1.2.840.114 350.1.13.10 4.2.7.2.686 [id number] [facility] 2021-10-02 15:20:00 2021-10-05 17:15:00 Hospital Encounter Brittanie Pal, [facility] 1.2840.114 350.1.13.10 4.2.7.2.686 [id number] [facility] 2021-10-02 15:20:00 2021-10-05 17:15:00 Outpatient X MUFTI CAROLINAS [facility] [id number] [facility] 2021-10-05 00:00:00 2021-10-05 00:00:00 Telephone [facility] 1.2840.114 350.1.13.10 4.2.7.2.686 [id number] [facility] Results Test Description Test Time Test Comments Results Result Co mments Source COMPREHENSIVE METABOLIC [id number] 09:11:44* Test Item Value Reference Range Interpretation Comme nts GLUCOSE (test code = 2217) 92 MG/DL 70-99 BUN (test code = 2208) 25 MG/DL 8-23 H CREATININE (test code = 2214) 1.03 MG/DL 0.60-1.30 eGFR (2020 CKD-EPI) (test code = 54394) 53 ML/MIN/1.73 >60 L The NKF-ASN Taskforc e recommends use of Cystatin C to confirm eGFR inadults at risk for CKD. [facility] offers eGFR with Cystatin C-Creatinineusing the 2020 CKD-EPI eGFR_creat-cystat equation (order code 3057) toincrease the accuracy of estimated GFR. For more information, contactyour account classification clerk or see announcement [email or web address] CALC BUN/CREAT (test code = 2235) 24 RATIO 6-28 SODIUM (test code = 223) 140 MEQ/L 133-146 POTASSIUM (test code = 2228) 4.5 MEQ/L 3.5-5.4 CHLORIDE (test code = 2215) 101 MEQ/L 95-107 CARBON DIOXIDE (test code = 2206) 25 MEQ/L 19-31 CALCIUM (test code = 2209) 10.2 MG/DL 8.5-10.5 PROTEIN, TOTAL (test code = 2229) 6.9 G/DL 6.1-8.3 ALBUMIN (test code = 2201) 4.2 G/DL 3.5-5.2 CALC GLOBULIN (test code = 2240) 2.7 G/DL 1.9-3.7 CALC A/G RATIO (test code = 2234) 1.6 RATIO 1.0-2.6 BILIRUBIN, TOTAL (test code = 2207) 1.2 MG/DL <=1.2 ALKALINE PHOSPHATASE (test code = 2204) 103 U/L 40-142 AST (test code = 2218) 29 U/L 9-40 ALT (test code = 2219) 20 U/L 5-40 UNLESS OTHERWISE INDICATED, ALL TESTING PERFORMED AT [facility] [address] [place] [address] ASSISTANT NEWS DIRECTOR: EULA ALMENDAREZ M.D. CLIA NUMBER [id number] [facility] [place]. [id number] LIPID [id number] 00:00:00* Test Item Value Reference Range Interpretation Comme nts CHOLESTEROL (test code = 2210) 156 MG/DL TRIGLYCERIDES (test code = 2232) 62 MG/DL HDL CHOLESTEROL (test code = 2220) 79 MG/DL CALC LDL CHOL (test code = 2237) 63 MG/DL RISK RATIO LDL/HDL (test cod e = 2238) 0.80 RATIO Karlo AveryCOMPREHENSIVE METABOLIC [id number] 00:00:00* Test Item Value Reference Range Interpretation Comme nts GLUCOSE (test code = 2217) 92 MG/DL BUN (test code = 2208) 25 MG/DL CREATININE (test code = 2214) 1.03 MG/DL eGFR (2020 CKD-EPI) (test co de = 13172) 53 ML/MIN/1.73 CALC BUN/CREAT (test code = 2235) 24 RATIO SODIUM (test code = 2231) 140 MEQ/L POTASSIUM (test code = 2228) 4.5 MEQ/L CHLORIDE (test code = 2215) 101 MEQ/L CARBON DIOXIDE (test code = 2206) 25 MEQ/L CALCIUM (test code = 2209) 10.2 MG/DL PROTEIN, TOTAL (test code = 2229) 6.9 G/DL ALBUMIN (test code = 2201) 4.2 G/DL CALC GLOBULIN (test code = 2240) 2.7 G/DL CALC A/G RATIO (test code = 2234) 1.6 RATIO BILIRUBIN, TOTAL (test code = 2207) 1.2 MG/DL ALKALINE PHOSPHATASE (test code = 2204) 103 U/L AST (test code = 2218) 29 U/L ALT (test code = 2219) 20 U/L Karlo AveryLIPID [id number] 00:00:00* Test Item Value Reference Range Interpretation Comme nts CHOLESTEROL (test code = 2210) 156 MG/DL TRIGLYCERIDES (test code = 2232) 62 MG/DL HDL CHOLESTEROL (test code = 2220) 79 MG/DL CALC LDL CHOL (test code = 2237) 63 MG/DL RISK RATIO LDL/HDL (test cod e = 2238) 0.80 RATIO Karlo AveryCOMPREHENSIVE METABOLIC [id number] 00:00:00* Test Item Value Reference Range Interpretation Comme nts GLUCOSE (test code = 2217) 92 MG/DL BUN (test code = 2208) 25 MG/DL CREATININE (test code = 2214) 1.03 MG/DL eGFR (2020 CKD-EPI) (test co de = 95599) 53 ML/MIN/1.73 CALC BUN/CREAT (test code = 2235) 24 RATIO SODIUM (test code = 2231) 140 MEQ/L POTASSIUM (test code = 2228) 4.5 MEQ/L CHLORIDE (test code = 2215) 101 MEQ/L CARBON DIOXIDE (test code = 2206) 25 MEQ/L CALCIUM (test code = 2209) 10.2 MG/DL PROTEIN, TOTAL (test code = 2229) 6.9 G/DL ALBUMIN (test code = 2201) 4.2 G/DL CALC GLOBULIN (test code = 2240) 2.7 G/DL CALC A/G RATIO (test code = 2234) 1.6 RATIO BILIRUBIN, TOTAL (test code = 2207) 1.2 MG/DL ALKALINE PHOSPHATASE (test code = 2204) 103 U/L AST (test code = 2218) 29 U/L ALT (test code = 2219) 20 U/L Karlo AveryLIPID [id number] 00:00:00* Test Item Value Reference Range Interpretation Comme nts CHOLESTEROL (test code = 2210) 156 MG/DL TRIGLYCERIDES (test code = 2232) 62 MG/DL HDL CHOLESTEROL (test code = 2220) 79 MG/DL CALC LDL CHOL (test code = 2237) 63 MG/DL RISK RATIO LDL/HDL (test cod e = 2238) 0.80 RATIO Karlo AveryCOMPREHENSIVE METABOLIC [id number] 00:00:00* Test Item Value Reference Range Interpretation Comme nts GLUCOSE (test code = 2217) 92 MG/DL BUN (test code = 2208) 25 MG/DL CREATININE (test code = 2214) 1.03 MG/DL eGFR (2020 CKD-EPI) (test co de = 77259) 53 ML/MIN/1.73 CALC BUN/CREAT (test code = 2235) 24 RATIO SODIUM (test code = 2231) 140 MEQ/L POTASSIUM (test code = 2228) 4.5 MEQ/L CHLORIDE (test code = 2215) 101 MEQ/L CARBON DIOXIDE (test code = 2206) 25 MEQ/L CALCIUM (test code = 2209) 10.2 MG/DL PROTEIN, TOTAL (test code = 2229) 6.9 G/DL ALBUMIN (test code = 2201) 4.2 G/DL CALC GLOBULIN (test code = 2240) 2.7 G/DL CALC A/G RATIO (test code = 2234) 1.6 RATIO BILIRUBIN, TOTAL (test code = 2207) 1.2 MG/DL ALKALINE PHOSPHATASE (test code = 2204) 103 U/L AST (test code = 2218) 29 U/L ALT (test code = 2219) 20 U/L Karlo Roldan AustinLIPID [id number] 00:00:00* Test Item Value Reference Range Interpretation Comme nts CHOLESTEROL (test code = 2210) 156 MG/DL TRIGLYCERIDES (test code = 2232) 62 MG/DL HDL CHOLESTEROL (test code = 2220) 79 MG/DL CALC LDL CHOL (test code = 2237) 63 MG/DL RISK RATIO LDL/HDL (test cod e = 2238) 0.80 RATIO Karlo AveryCOMPREHENSIVE METABOLIC [id number] 00:00:00* Test Item Value Reference Range Interpretation Comme nts GLUCOSE (test code = 2217) 92 MG/DL BUN (test code = 2208) 25 MG/DL CREATININE (test code = 2214) 1.03 MG/DL eGFR (2020 CKD-EPI) (test co de = 04335) 53 ML/MIN/1.73 CALC BUN/CREAT (test code = 2235) 24 RATIO SODIUM (test code = 2231) 140 MEQ/L POTASSIUM (test code = 2228) 4.5 MEQ/L CHLORIDE (test code = 2215) 101 MEQ/L CARBON DIOXIDE (test code = 2206) 25 MEQ/L CALCIUM (test code = 2209) 10.2 MG/DL PROTEIN, TOTAL (test code = 2229) 6.9 G/DL ALBUMIN (test code = 2201) 4.2 G/DL CALC GLOBULIN (test code = 2240) 2.7 G/DL CALC A/G RATIO (test code = 2234) 1.6 RATIO BILIRUBIN, TOTAL (test code = 2207) 1.2 MG/DL ALKALINE PHOSPHATASE (test code = 2204) 103 U/L AST (test code = 2218) 29 U/L ALT (test code = 2219) 20 U/L Karlo Roldan AustinLIPID [id number] 00:00:00* Test Item Value Reference Range Interpretation Comme nts CHOLESTEROL (test code = 2210) 156 MG/DL TRIGLYCERIDES (test code = 2232) 62 MG/DL HDL CHOLESTEROL (test code = 2220) 79 MG/DL CALC LDL CHOL (test code = 2237) 63 MG/DL RISK RATIO LDL/HDL (test cod e = 2238) 0.80 RATIO Karlo Roldan AustinCOMPREHENSIVE METABOLIC [id number] 00:00:00* Test Item Value Reference Range Interpretation Comme nts GLUCOSE (test code = 2217) 92 MG/DL BUN (test code = 2208) 25 MG/DL CREATININE (test code = 2214) 1.03 MG/DL eGFR (2020 CKD-EPI) (test co de = 20681) 53 ML/MIN/1.73 CALC BUN/CREAT (test code = 2235) 24 RATIO SODIUM (test code = 2231) 140 MEQ/L POTASSIUM (test code = 2228) 4.5 MEQ/L CHLORIDE (test code = 2215) 101 MEQ/L CARBON DIOXIDE (test code = 2206) 25 MEQ/L CALCIUM (test code = 2209) 10.2 MG/DL PROTEIN, TOTAL (test code = 2229) 6.9 G/DL ALBUMIN (test code = 2201) 4.2 G/DL CALC GLOBULIN (test code = 2240) 2.7 G/DL CALC A/G RATIO (test code = 2234) 1.6 RATIO BILIRUBIN, TOTAL (test code = 2207) 1.2 MG/DL ALKALINE PHOSPHATASE (test code = 2204) 103 U/L AST (test code = 2218) 29 U/L ALT (test code = 2219) 20 U/L Karlo AveryLIPID [id number] 00:00:00* Test Item Value Reference Range Interpretation Comme nts CHOLESTEROL (test code = 2210) 156 MG/DL TRIGLYCERIDES (test code = 2232) 62 MG/DL HDL CHOLESTEROL (test code = 2220) 79 MG/DL CALC LDL CHOL (test code = 2237) 63 MG/DL RISK RATIO LDL/HDL (test cod e = 2238) 0.80 RATIO Karlo Roldan BennieCOMPREHENSIVE METABOLIC [id number] 00:00:00* Test Item Value Reference Range Interpretation Comme nts GLUCOSE (test code = 2217) 92 MG/DL BUN (test code = 2208) 25 MG/DL CREATININE (test code = 2214) 1.03 MG/DL eGFR (2020 CKD-EPI) (test co de = 74298) 53 ML/MIN/1.73 CALC BUN/CREAT (test code = 2235) 24 RATIO SODIUM (test code = 2231) 140 MEQ/L POTASSIUM (test code = 2228) 4.5 MEQ/L CHLORIDE (test code = 2215) 101 MEQ/L CARBON DIOXIDE (test code = 2206) 25 MEQ/L CALCIUM (test code = 2209) 10.2 MG/DL PROTEIN, TOTAL (test code = 2229) 6.9 G/DL ALBUMIN (test code = 2201) 4.2 G/DL CALC GLOBULIN (test code = 2240) 2.7 G/DL CALC A/G RATIO (test code = 2234) 1.6 RATIO BILIRUBIN, TOTAL (test code = 2207) 1.2 MG/DL ALKALINE PHOSPHATASE (test code = 2204) 103 U/L AST (test code = 2218) 29 U/L ALT (test code = 2219) 20 U/L Karlo AveryLIPID [id number] 00:00:00* Test Item Value Reference Range Interpretation Comme nts CHOLESTEROL (test code = 2210) 156 MG/DL TRIGLYCERIDES (test code = 2232) 62 MG/DL HDL CHOLESTEROL (test code = 2220) 79 MG/DL CALC LDL CHOL (test code = 2237) 63 MG/DL RISK RATIO LDL/HDL (test cod e = 2238) 0.80 RATIO Karlo AveryCOMPREHENSIVE METABOLIC [id number] 00:00:00* Test Item Value Reference Range Interpretation Comme nts GLUCOSE (test code = 2217) 92 MG/DL BUN (test code = 2208) 25 MG/DL CREATININE (test code = 2214) 1.03 MG/DL eGFR (2020 CKD-EPI) (test co de = 00540) 53 ML/MIN/1.73 CALC BUN/CREAT (test code = 2235) 24 RATIO SODIUM (test code = 2231) 140 MEQ/L POTASSIUM (test code = 2228) 4.5 MEQ/L CHLORIDE (test code = 2215) 101 MEQ/L CARBON DIOXIDE (test code = 2206) 25 MEQ/L CALCIUM (test code = 2209) 10.2 MG/DL PROTEIN, TOTAL (test code = 2229) 6.9 G/DL ALBUMIN (test code = 2201) 4.2 G/DL CALC GLOBULIN (test code = 2240) 2.7 G/DL CALC A/G RATIO (test code = 2234) 1.6 RATIO BILIRUBIN, TOTAL (test code = 2207) 1.2 MG/DL ALKALINE PHOSPHATASE (test code = 2204) 103 U/L AST (test code = 2218) 29 U/L ALT (test code = 2219) 20 U/L Karlo Arriaga, [id number] 00:00:00* Test Item Value Reference Range Interpretation Comme nts CULTURE, URINE (test code = 24027) SPECIMEN NUMBER: [id number] Karlo Arriaga, [id number] 00:00:00* Test Item Value Reference Range Interpretation Comme nts CULTURE, URINE (test code = 35495) SPECIMEN NUMBER: [id number] ALEKSANDAR Madden2023-10-01 00:00:00* Test Item Value Reference Range Interpretation Comme nts CULTURE, URINE (test code = 83585) SPECIMEN NUMBER: [id number] ALEKSANDAR Madden2023-10-01 00:00:00* Test Item Value Reference Range Interpretation Comme nts CULTURE, URINE (test code = 40409) SPECIMEN NUMBER: [id number] ALEKSANDAR Madden2023-10-01 00:00:00* Test Item Value Reference Range Interpretation Comme nts CULTURE, URINE (test code = 80766) SPECIMEN NUMBER: [id number] ALEKSANDAR Madden2023-10-01 00:00:00* Test Item Value Reference Range Interpretation Comme nts CULTURE, URINE (test code = 32408) SPECIMEN NUMBER: [id number] ALEKSANDAR Madden2023-10-01 00:00:00* Test Item Value Reference Range Interpretation Comme nts CULTURE, URINE (test code = 55374) SPECIMEN NUMBER: [id number] ALEKSANDAR Madden2023-10-01 00:00:00* Test Item Value Reference Range Interpretation Comme nts CULTURE, URINE (test code = 20872) SPECIMEN NUMBER: [id number] Karlo AveryGLUCOSE BEDSIDE [id number] 12:27:00* Test Item Value Reference Range Interpretation Comme nts GLUCOSE BEDSIDE TESTING (tiki t code = GLUBED) 99 mg/dL 70-110 N BASIC METABOLIC [id number] 05:35:00* Test Item Value Reference Range Interpretation [...] code = CA) 8.3 MG/DL 8.5-10.1 L [id number] 05:35:00* Test Item Value Reference Range Interpretation Comme nts PHOSPHOROUS (test code = PHOS) 3.0 MG/DL 2.5-4.9 [id number] 05:35:00* Test Item Value Reference Range Interpretation Comme nts MAGNESIUM (test code = MAG) 2.0 MG/DL 1.8-2.4 N CBC W/AUTO [id number] 05:06:00* Test Item Value Reference Range Interpretation [...] = MDIFF) NO DIFF/SCN CRITERIA BASIC METABOLIC [id number] 05:51:00* Test Item Value Reference Range Interpretation [...] code = CA) 8.0 MG/DL 8.5-10.1 L [id number] 05:51:00* Test Item Value Reference Range Interpretation Comme nts PHOSPHOROUS (test code = PHOS) 1.7 MG/DL 2.5-4.9 L [id number] 05:51:00* Test Item Value Reference Range Interpretation Comme nts MAGNESIUM (test code = MAG) 1.3 MG/DL 1.8-2.4 L CBC W/AUTO [id number] 05:18:00* Test Item Value Reference Range Interpretation [...] = MDIFF) NO DIFF/SCN CRITERIA COMPREHENSIVE METABOLIC [id number] 05:24:00* Test Item Value Reference Range Interpretation [...] code = ALKP) 109 Unit/L 45-117 N [id number] 05:24:00* Test Item Value Reference Range Interpretation Comme nts PHOSPHOROUS (test code = PHOS) 2.5 MG/DL 2.5-4.9 N [id number] 05:24:00* Test Item Value Reference Range Interpretation Comme nts MAGNESIUM (test code = MAG) 1.8 MG/DL 1.8-2.4 N CBC W/AUTO [id number] 04:52:00* Test Item Value Reference Range Interpretation [...] c ode = MDIFF) NO DIFF/SCN CRITERIA [id number] 06:13:00* Test Item Value Reference Range Interpretation Comme nts CORTISOL (test code = CORTR) 18.2 ug/dL 6.2-19.4 Please Note: The reference interval and flagging for this test is for an AM collection. If this is a PM collection please use: Cortisol PM: 2.3-11.9Performed At: [facility] [id number] Trae Holt MD Ph:[phone] BASIC METABOLIC [id number] 02:58:00* Test Item Value Reference Range Interpretation [...] code = CA) 7.9 MG/DL 8.5-10.1 L [id number] 02:58:00* Test Item Value Reference Range Interpretation Comme nts PHOSPHOROUS (test code = PHOS) 2.9 MG/DL 2.5-4.9 N [id number] 02:58:00* Test Item Value Reference Range Interpretation Comme nts MAGNESIUM (test code = MAG) 1.7 MG/DL 1.8-2.4 L CBC W/AUTO [id number] 02:43:00* Test Item Value Reference Range Interpretation [...] = MDIFF) NO DIFF/SCN CRITERIA CBC W/AUTO [id number] 03:45:00* Test Item Value Reference Range Interpretation [...] = MDIFF) NO DIFF/SCN CRITERIA BASIC METABOLIC [id number] 02:37:00* Test Item Value Reference Range Interpretation [...] code = CA) 8.3 MG/DL 8.5-10.1 L [id number] 02:37:00* Test Item Value Reference Range Interpretation Comme nts PHOSPHOROUS (test code = PHOS) 2.4 MG/DL 2.5-4.9 L [id number] 02:37:00* Test Item Value Reference Range Interpretation Comme nts MAGNESIUM (test code = MAG) 1.9 MG/DL 1.8-2.4 - XR ABDOMEN 1 [id number] 09:57:00 [facility] 1935 Sex: F Name: LESLEY BERAUX [facility] : 1935 Age/S: 87 / F [address] [address] Unit #: [id number] Loc: [place] [address] Phys: Giorgi Chavarria MD Acct: [id number] Dis Date: Status: ADM IN PHONE #: [phone] Exam Date: 09/26/2022 09 FAX #: Reason: ABDOMINAL PAIN EXAMS: CPT: [id number] XRABDOMEN 1 V 54241 Fluoro Time: DAP (Gy m2): Air Kerma [...] PAGE 1 Signed Report Name: LESLEY BREAUX [place] : 1935 Age/S: 87 / F [address] [address] Unit #: [id number] Loc: [place] [address] Phys: Giorgi Chavarria MD Acct: [id number] Dis Date: Status: ADM IN PHONE #: [phone] Exam Date: 929 FAX #: Reason: ABDOMINAL PAIN EXAMS: CPT: [id number] XR ABDOMEN 1 V 02826 Fluoro Time: DAP (Gy m2): Air Kerma (mGy): (Continued) Technologist: Justina Keenan, RT(R) Trnscb Date/Time: 09/26/2022 (956) t.SDR.[email or web address] Orig Print D/T: S: 09/26/2022 (1000) PAGE 2 Signed ReportCBC W/AUTO [id number] 06:54:00* Test Item Value Reference Range Interpretation [...] c ode = MDIFF) NO DIFF/SCN CRITERIA [id number] 06:46:00* Test Item Value Reference Range Interpretation Comme nts PHOSPHOROUS (test code = PHOS) 2.8 MG/DL 2.5-4.9 N [id number] 06:46:00* Test Item Value Reference Range Interpretation Comme nts MAGNESIUM (test code = MAG) 2.3 MG/DL 1.8-2.4 BASIC METABOLIC [id number] 06:46:00* Test Item Value Reference Range Interpretation [...] MG/DL 8.5-10.1 L - XR CHEST 1 [id number] 06:24:00 [facility] : 1935 Sex: F Name: LESLEY BREAUX [facility] : 1935 Age/S: 87 / F [address] [address] Unit #: [id number] Loc: [place] [address] Phys: Eliu Duarte Acct: [id number] Dis Date: Status: ADM IN PHONE #: [phone] Exam Date: 09/26/2022 0552 FAX #: Reason: S/P PICC LINE PLACEMENT EXAMS: CPT: [id number] XR CHEST 1 V 25829 Fluoro Time: DAP (Gy m2): Air Kerma (mGy): EXAMINATION: - XR CHEST 1 V LOCATION: H101 INDICATION/CLINICAL HISTORY: S/P PICC LINE PLACEMENT COMPARISON: Chest x-ray September 25, 2022 at 2347 TECHNIQUE: AP view of the chest. FINDINGS: Right upper extremity PICC has been placed with tip located in the mid SVC. 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 Cardiac silhouette is normal in size. Patchy left basilar opacities are unchanged. No pneumothorax or pleural effusion. IMPRESSION: 1. Interval placement of a right upper extremity PICC with tip located in mid SVC. No pneumothorax. 2. Unchanged mild left basilar opacities, which may reflect atelectasis or pneumonia. at 0624 Reported and signed by: Blake Ford M.D. CC: Eliu Duarte; Gissel Ortega MD PAGE 1 Signed Report Name: LESLEY BREAUX [facility] : 1935 Age/S: 87 / F [address] [address] Unit #: [id number] Loc: [place] [address] Phys: Everardo Duarte Acct: [id number] Dis Date: Status: ADM IN PHONE #: [phone] Exam Date: 09/26/2022 0552 FAX #: Reason: S/P PICC LINE PLACEMENT EXAMS: CPT: [id number] XR CHEST 1 V 73052 Fluoro Time: DAP (Gy m2): Air Kerma (mGy): (Continued) Technologist: Adali Chapman,RT(R)(CT) Trnscb Date/Time: 09/26/2022 (623) [email or web address] Orig Print D/T: S: 09/26/2022 (0637) PAGE2 Signed Report- XR CHEST 1 [id number] 00:37:00 [facility] : 1935 Sex: F Name: LESLEY BREAUX [facility] : 1935 Age/S: 87 / F [address] [address] Unit #: [id number] Loc: [place] [address] Phys: Eliu Duarte Acct: [id number] Dis Date: Status: ADM IN PHONE #: [phone] Exam Date: 09/25/2022 1156 FAX #: Reason: SOB/PULM EDEMA EXAMS: CPT: [id number] XR CHEST 1 V 26819 Fluoro Time: DAP (Gy m2): Air Kerma [...] interval change in faint left basilar atelectasis or pneumonia. at 0037 Reported and signed by: Siobhan Friend M.D. CC: Eliu Ortega MD PAGE 1 Signed Report Name[facility] [place] : 1935 Age/S: 87 / F [address] [address] Unit #: [id number] Loc: [place] [address] Phys: Eliu Duarte Acct: [id number] Dis Date: Status: ADM IN PHONE #: [phone] Exam Date: 09/25/2022 1159 FAX #: Reason: SOB/PULM EDEMA EXAMS: CPT: [id number] XR CHEST 1 V 72450 Fluoro Time: DAP (Gy m2): Air Kerma (mGy): (Continued) Technologist: Munira Lovell Trnscb Date/Time: 09/26/2022 (0037) BrettMA50 Orig Print D/T: S: 09/26/2022 (0040) PAGE 2 Signed ReportBASIC METABOLIC [id number] 21:20:00* Test Item Value Reference Range Interpretation [...] code = CA) 8.3 MG/DL 8.5-10.1 L [id number] 21:20:00* Test Item Value Reference Range Interpretation Comme nts MAGNESIUM (test code = MAG) 1.7 MG/DL 1.8-2.4 L CBC W/AUTO [id number] 21:09:00* Test Item Value Reference Range Interpretation [...] = MDIFF) NO DIFF/SCN CRITERIA GLUCOSE BEDSIDE [id number] 18:26:00* Test Item Value Reference Range Interpretation Comme nts GLUCOSE BEDSIDE TESTING (tiki t code = GLUBED) 121 mg/dL 70-110 H CBC W/AUTO [id number] 13:09:00* Test Item Value Reference Range Interpretation [...] = MDIFF) NO DIFF/SCN CRITERIA COMPREHENSIVE METABOLIC [id number] 13:07:00* Test Item Value Reference Range Interpretation [...] Unit/L 45-117 H - XR CHEST 1 [id number] 09:19:00 [facility] : 1935 Sex: F Name: LESLEY BREAUX [facility] : 1935 Age/S: 87 / F [address] [address] Unit #: [id number] Loc: [place] [address] Phys: Art Tavera MD Acct: [id number] Dis Date: Status: ADM IN PHONE #: [phone] Exam Date: 09/24/2022827 FAX #: Reason: h/o chest tube EXAMS: CPT: [id number] XR CHEST 1 V 63946 Fluoro Time: DAP (Gy m2): Air Kerma (mGy): Chest Radiograph History: h/o chest tube Co mparison: September 23, 2022 Location: 5 A single frontal view of the chest [...] significant change. at 0919 Reported and signed by:Terrence Chapman M.D. CC: Gissel Ortega MD; Art Tavera MD PAGE 1 Signed Report Name: LESLEY BREAUX [facility] : 1935 Age/S: 87 / F [address] [address] Unit #: [id number] Loc: [place] [address] Phys: Art Tavera MD Acct: [id number] Dis Date: Status: ADM IN PHONE #: [phone] Exam Date: 09/24/2022827 FAX #: Reason: h/o chest tube EXAMS: CPT: [id number] XR CHEST 1 V 67330 Fluoro Time: DAP (Gy m2): Air Kerma (mGy): (Continued) Technologist: Verena Frost, RT,(R),(CT) Trnscb Date/Time: 09/24/2022 (918) t.REBECCAR.PMT Orig Print D/T: S: 09/24/2022 (921) PAGE 2 Signed ReportGLUCOSE BEDSIDE TESTING 2022-09-24 08:24:00* Test Item Value Reference Range Interpretation Comme nts GLUCOSE BEDSIDE TESTING (tiki t code = GLUBED) 112 mg/dL 70-110 H GLUCOSE BEDSIDE [id number] 21:09:00* Test Item Value Reference Range Interpretation Comme nts GLUCOSE BEDSIDE TESTING (tiki t code = GLUBED) 144 mg/dL 70-110 H - XR CHEST 1 [id number] 17:44:00 [facility] : 1935 Sex: F Name: LESLEY BREAUX [facility] : 1935 Age/S: 87 / F [address] [address] Unit #: [id number] Loc: [place] [address] Phys: Art Tavera MD Acct: [id number] Dis Date: Status: ADM IN PHONE#: [phone] Exam Date: 09/23/2022 1728 FAX #: Reason: S/p Chest Tube removal EXAMS: CPT: [id number] XR CHEST 1 V 50074 Fluoro Time: DAP (Gy m2): Air Kerma [...] PAGE 1 Signed Report Name: LESLEY BREAUX [place] : 1935 Age/S: 87 / F [address] [address] Unit #: [id number] Loc: [place] [address] Phys: Art Carreon MD Acct: [id number] Dis Date: Status: ADM IN PHONE #: [phone] Exam Date: 09/23/2022 1728 FAX #: Reason: S/p Chest Tube removal EXAMS: CPT: [id number] XR CHEST 1 V 52361 Fluoro Time: DAP (Gy m2): Air Kerma (mGy): (Continued) Technologist: Leigh Bright RT(R)(CT) Trnscb Date/Time: 09/23/2022 (014) BrettLJ12 Orig Print D/T: S: 09/23/2022 (5923) PAGE 2 Signed ReportBASIC METABOLIC [id number] 04:07:00* Test Item Value Reference Range Interpretation [...] CA) 8.6 MG/DL 8.5-10.1 N CBC W/AUTO [id number] 03:56:00* Test Item Value Reference Range Interpretation [...] = MDIFF) NO DIFF/SCN CRITERIA GLUCOSE BEDSIDE [id number] 20:11:00* Test Item Value Reference Range Interpretation Comme nts GLUCOSE BEDSIDE TESTING (tiki t code = GLUBED) 140 mg/dL 70-110 H - XR CHEST 1 [id number] 10:47:00 [facility] : 1935 Sex: F Name: LESLEY BREAUX [facility] : 1935 Age/S: 87 / F [address] [address] Unit #: [id number] Loc: [place] [address] Phys: Mauro Arce MD Acct: [id number] Dis Date: Status: ADM IN PHONE #: [phone] Exam Date: 09/22/2022 1011 FAX #: Reason: chest pain EXAMS: CPT: [id number] XR CHEST 1 V 01717 Fluoro Time: DAP (Gy m2): Air Kerma [...] bilateral opacities are stable. Emphysematous change noted. Pleura:No pleural effusion is identified. No pneumothorax is present. Bones: Degenerative changes are present in the thoracic spine. IMPRESSION: Stable chest. at 1047 Reported and signed by: Kiersten Padilla MD CC: Mauro Arce MD; Gissel Ortega MD PAGE 1 Signed Report Name: [facility]ES[facility] BREAUX [facility] [place] : 1935 Age/S: 87 / F [address] [address] Unit #: [id number] Loc: [place] [address] Phys: Mauro Arce MD Acct: [id number] Dis Date: Status: ADM IN PHONE #: [phone] Exam Date: 09/22/2022 1011 FAX #: Reason: chest pain EXAMS: CPT: [id number] XR CHEST 1 V 78975 Fluoro Time: DAP (Gy m2): Air Kerma (mGy): (Contin ued) Technologist: PARK HAN Trnscb Date/Time: 09/22/2022 (0437) BrettLJ12 Orig Print D/T: S: 09/22/2022 (6870) PAGE 2 Signed ReportGLUCOSE BEDSIDE TESTING 2022-09-22 08:35:00* Test Item Value Reference Range Interpretation Comme nts GLUCOSE BEDSIDE TESTING (tiki t code = GLUBED) 83 mg/dL 70-110 N CBC W/AUTO [id number] 06:14:00* Test Item Value Reference Range Interpretation [...] REVIEW CONSISTANT WITH AUTO DIFFERENTIAL. BASIC METABOLIC [id number] 04:36:00* Test Item Value Reference Range Interpretation [...] = CA) 8.8 MG/DL 8.5-10.1 N HGB [id number] 20:26:00* Test Item Value Reference Range Interpretation Comme nts HEMOGLOBIN (test code = HGB) 9.7 G/DL 10.4-14.9 L HEMATOCRIT (test code = HCT) 28.8 % 31.5-44.1 L - [facility] W/CNDATOBRUFJ2934-84-38 14:35:00 [facility] : 1935 Sex: F Name: LESLEY BREAUX [facility] : 1935 Age/S: 87 / F [address] [address] Unit #: [id number] Loc: [place] [address] Phys: Gissel Ortega MD Cardiology Acct: [id number] Dis Date: Status: ADM IN PHONE #: [phone] Exam Date: 09/21/2022 1100 FAX #: Reason: LEFT PLEURAL EFFUSION EXAMS:CPT: [id number] [facility]MEDIASTIN[facility] [address]33 Ultrasound of the chest History: LEFT PLEURAL EFFUSION Comparison: None at this time Location: H45 A limited ultrasound of the left chest was performed to assess for the possibility of pleural effusion. IMPRESSION: There is a small to moderate complex leftpleural effusion. at 1435 R eported and signed by: Terrence Chapman M.D. CC: Gissel Roldan Cardiology Jordan MCCABE Technologist: Shilpa Bauman [facility] Date/Time: 09/21/2022 (1435) BrettPMT PAGE 1 Signed Report Name: LESLEY BREAUX [facility] : 1935 Age/S: 87 / F [address] [address] Unit #: [id number] Loc: [place] [address] Phys: Gissel Ortega MD Cardiology Acct: [id number] Dis Date: Status: ADM IN PHONE #: [phone] Exam Date: 09/21/2022 1100 FAX #: Reason: LEFT PLEURAL EFFUSION EXAMS: [id number] [address] (Continued) Orig Print D/T: S: 09/21/2022 (1439) Probe: PAGE 2 Signed Report- XR CHEST 1 [id number] 13:10:00[facility] : 1935 Sex: F Name: [facility]AUX [facility] : 1935 Age/S: 87 / F [place] Unit #: [id number] Loc: [place] [address] Phys: Mauro Arce MD Acct: [id number] Dis Date: Status: ADM IN PHONE #: [phone] Exam Date: 09/21/20224 FAX #: Reason: S/P CHEST TUBE PLACEMENT EXAMS: CPT: [id number] XR CHEST 1 V 81470 Fluoro Time: DAP (Gy m2): Air Kerma (mGy): EXAM: Portable chest x-ray, oneview INDICATION: S/P CHEST TUBE PLACEMENT ADMITTING DIAGNOSIS: LOCATION CODE: C3 COMPARISON: 2022 at 1101 hours TECHNIQUE: Single Portable [...] PAGE 1 Signed Report Name: LESLEY BREAUX [facility] Milena : 1935 Age/S: 87 / F [place] Unit #: [id number] Loc:Stephenie [place] [address] Phys: Mauro Arce MD Acct: [id number] Dis Date: Status: ADM IN PHONE #: [phone] Exam Date: 09/21/20224 FAX #: Reason: S/P CHEST TUBE PLACEMENT EXAMS: CPT: [id number] XR CHEST 1 V 80370 Fluoro Time: DAP (Gy m2): Air Kerma (mGy): (Continued) Technologist: Wilda Burr Trnscb Date/Time: 09/21/2022 (131) Lane Orig Print D/T: S: 09/21/2022 (2218) PAGE 2 Signed ReportBASIC METABOLIC PANEL 2022-09-21 [...] CA) 8.7 MG/DL 8.5-10.1 N CBC W/AUTO [id number] 03:31:00* Test Item Value Reference Range Interpretation [...] ode = MDIFF) NO DIFF/SCN CRITERIA HGB [id number] 20:15:00* Test Item Value Reference Range Interpretation Comme nts HEMOGLOBIN (test code = HGB) 8.7 G/DL 10.4-14.9 L HEMATOCRIT (test code = HCT) 26.2 % 31.5-44.1 L - CT ABD PELVIS W/O [id number] 14:37:00 [facility] : 1935 Sex: F Name: LESLEY BREAUX [facility] : 1935 Age/S: 87 / F [id number] [facility] [place] Unit #: [id number] Loc: [place] [address] Phys: Mauro Arce MD Acct: [id number] Dis Date: Status: ADM IN PHONE #: [phone] Exam Date: 09/20/2022 1429 FAX #: Reason: anemia EXAMS: CPT: [id number] CT ABD PELVIS W/O CONT 06297 EXAMINATION: - CT ABD PELVIS W/O CONT [...] and/or kV according to patient size ?Use ofiterative reconstruction technique FINDINGS ABDOMEN: Within the limits of this noncontrast CT the liver, spleen, pancreas and adrenal glands are normal. High density material in the gallbladder lumenis present and most likely represents vicarious excreted [...] is filled with thick excreted contrast material butis otherwise unremarkable. The uterus and ovaries are not visualized presumed surgically absent. There is no free air, free fluid or lymphadenopathy. Atheromatous plaquing is present in the vessels. No PAGE 1 Signed Report (CONTINUED) Name: LESLEY BREAUX [facility] : 1935 Age/S: 87 / F [address] Unit #: [id number] Loc: [place] [address] Phys: Maruo Arce MD Acct: [id number] Dis Date: Status: ADM IN PHONE #: [phone] Exam Date: 09/20/2022 1429 FAX #: Reason: anemia EXAMS: CPT: [id number] CT ABD PELVIS W/O CONT 79341 (Continued) suspicious bowel lesions are identified. Bones [...] Mauro Arce MD; Gissel Ortega MD Technologist:Justina Keenan, RT(R) CTDI: DLP: Trnscb Date/Time: 09/20/2022 (1437) [email or web address] Orig Print D/T: S: 09/20/2022 (1441) PAGE 2 Signed ReportHGB [id number] 12:06:00* Test Item Value Reference Range Interpretation Comme nts HEMOGLOBIN (test code = HGB) 8.2 G/DL 10.4-14.9 L HEMATOCRIT (test code = HCT) 25.4 % 31.5-44.1 L PROTHROMBIN [id number] 12:06:00* Test Item Value Reference Range Interpretation [...] ON HOME MED CHART- XR CHEST 1 [id number] 11:20:00 [facility] : 1935 Sex: F Name: LESLEY BREAUX [facility] : 1935 Age/S: 87 / F [address] Unit #: [id number] Loc: [place] [address] Phys: Ora Mackay Acct: [id number] Dis Date: Status: ADM IN PHONE #: [phone] Exam Date: 09/20/2022 1055 FAX #: Reason: SOB, POSS HEMOTHORAX ON CT EXAMS: CPT: [id number] CHEST 1 V 36501 Fluoro Time: DAP (Gy m2): Air Kerma [...] opacities in the lungs bilaterally. This could bedue to pneumonia. There is a small left pleural effusion. Compared to the prior exam, there has been little change. at 1120 Reported and signed by: Terrence Chapman M.D. CC: Gissel Ortega MD; Ora OCHOA PAGE 1 Signed Report Name: LESLEY BREAUX [facility] : 1935 Age/S: 87 / F [id number] Unit #: [id number] Loc: [place] [address] Phys: ThompsonOra OCHOA Acct: [id number] Dis Date: Status: ADMIN PHONE #: [phone] Exam Date: 09/20/2022 1055 FAX #: Reason: SOB, POSS HEMOTHORAX ON CT EXAMS: CPT: [id number] XR CHEST 1 V 38954 Fluoro Time: DAP (Gy m2): Air Kerma (mGy): (Continued) Technologist: Verena Frost RT,(R),(CT) Trnscb Date/Time: 09/20/2022 (112) tTIR.PMT Orig Print D/T: S: 09/20/2022 (1123) PAGE 2 Signed ReportBASIC METABOLIC [id number] 04:49:00* Test Item Value Reference Range Interpretation [...] CA) 8.6 MG/DL 8.5-10.1 N CBC W/AUTO [id number] 04:20:00* Test Item Value Reference Range Interpretation [...] NO DIFF/SCN CRITERIA - CTA CHEST FOR [id number] 11:25:00 [facility] 1935 Sex: F Name: LESLEY BREAUX [place] : 1935 Age/S: 87 / F [address] Unit #: [id number] Loc: [place] [address] Phys: Ora Mackay PA Acct: [id number] Dis Date: Status: ADM IN PHONE #: [phone] Exam Date: 09/19/2022 1048 FAX #: Reason: CHEST PAIN, SOB, R/O PE EXAMS: CPT: [id number] [place] [address] EXAM: CTA CHEST WITH CONTRAST. INDICATION: Chest [...] artery is normal in size. The thoracic aortaand great vessels are normal. The heart size [...] identified. Moderate left pleural effusion which appears complex with layering hyperdensity. This may represent hemothorax however fluid sampling should be considered. Patchy areas of tree-in-bud nodular opacities throughout both lungs is most consistent with an acute infectious/inflammatory process. LOCATION: B2 This CT exam was performed according to our departmental dose optimization program, which includes automatedexposure control, adjustment of the mA and or kV according to patient size and/or use of iterativereconstruction technique. PAGE 1 Signed Report (CONTINUED) Name: LESLEY BREAUX [facility] :1935 Age/S: 87 / F [address] [place] [address] Unit #: [id number] Loc: [place] [address] Phys: Ora Mackay Acct: [id number] Dis Date: Status: ADM IN PHONE #: [phone] Exam Date: 09/19/2022 1040 FAX #: Reason: CHEST PAIN, SOB, R/O PE EXAMS: CPT: [id number] [place] [address] (Continued) at 1125 Reported and signed by: Lay Beltrná M.D. CC: Gissel Roldan Cardiology Jordan MCCABE; Ora OCHOA Technologist:Justina Keenan, RT(R) CTDI: DLP: Trnscb Date/Time: 09/19/2022 (1124) [id number] Orig Print D/T: S: 09/19/2022 (112) PAGE 2 Signed Report- XR CHEST 1 V 2022-09-19 06:11:00 [facility] : 1935 Sex: F Name: LESLEY BREAUX [facility] : 1935 Age/S: 87 / [address] [place] [address] Unit #: [id number] Loc: [place] [address] Phys: Gissel Ortega MD Cardiology Acct: [id number] Dis Date: Status: ADM IN PHONE #: [phone] Exam Date: 09/19/2022 0252 FAX #: Reason: Post implanted device EXAMS: CPT: [id number] XR CHEST 1 V 61091 Fluoro Time: DAP (Gy m2): Air Kerma [...] PAGE 1 Signed Report Name: LESLEY BREAUX [facility] : 1935 Age/S: 87 / F [address] Unit #: [id number] Loc: [place] [address] Phys: Gissel Ortega MD Cardiology Acct: [id number] Dis Date: Status: ADM IN PHONE #: [phone] Exam Date: 09/19/2022 0252 FAX #: Reason: Post implanted device EXAMS: CPT: [id number] XR CHEST 1 V 90351 Fluoro Time: DAP (Gy m2): Air Kerma (mGy): (Continued) Technologist: Adali Chapman, RT(R)(CT) Trnscb Date/Time: 09/19/2022 (610) t.KARI Orig Print D/T: S: 09/19/2022 (14) PAGE 2 Signed ReportBASIC METABOLIC [id number] 05:17:00* Test Item Value Reference Range Interpretation [...] CA) 8.6 MG/DL 8.5-10.1 N CBC W/AUTO [id number] 04:50:00* Test Item Value Reference Range Interpretation [...] NO DIFF/SCN CRITERIA - XR CHEST 1 [id number] 12:45:00 [facility] : 1935 Sex: F Name: LESLEY BREAUX [facility] : 1935 Age/S: 87 / F [address] Unit #: [id number] Loc: [place] [address] Phys: Gissel Ortega MD Cardiology Acct: [id number] Dis Date: Status: ADM IN PHONE #: [phone] Exam Date: 09/18/2022 1208 FAX #: Reason: Post implanted device EXAMS:CPT: [id number] XR CHEST 1 V 53781 Fluoro Time: DAP (Gy m2): Air Kerma (mGy): EXAM: CHEST ONE VIEW INDICATION: Post implanted device LOCATION: B2 COMPARISON: None available TECHNIQUE: AP view of thechest FINDINGS: The heart size is normal. There is a left cardiac pacing device with no apparent discontinuity of the leads. There are mild congestive changes bilaterally. No pneumothorax or pleural effusion is identified. The osseous structures are normal. IMPRESSION: Mild congestive changes bilaterally. at 2725 Reported and signed by: Lay Beltrán M.D. CC: Gissel Roldan Cardiology Jordan MCCABE PAGE 1 Signed Report Name: LESLEY BREAUX [facility] : 1935 Age/S: 87 / F [address] [address] Unit #: [id number] Loc: [place] [address] Phys: Gissel Ortega MD Cardiology Acct: [id number] Dis Date: Status: ADM IN PHONE#: [phone] Exam Date: 09/18/2022 1202 FAX #: Reason: Post implanted device EXAMS: CPT: [id number] XR CHEST 1 V 09415 Fluoro Time: DAP (Gy m2): Air Kerma (mGy): (Continued) Technologist: RT Paolo(R) Trnscb Date/Time: 09/18/2022 (6230) 16 Orig Print D/T: S: 09/18/2022 (5267) PAGE 2 Signed ReportPROTHROMBIN [id number] 08:52:00* Test Item Value Reference Range Interpretation [...] Infarction (to prevent recurrent infarct). COMPREHENSIVE METABOLIC [id number] 08:50:00* Test Item Value Reference Range Interpretation [...] = LDL) 58 MG/DL 0-129 N <100 AKROPGJ95 0 - 129 NEAR OPTIMAL/ABOVE [id number] - 159 [id number] - 189 HIGH>OR= 190 VERY HIGHNOTE THAT GUIDELINES ARE PROVIDED BY NATIONAL CHOLESTEROLEDUCATION PROGRAM ADULT TREATMENT PANEL III LDL/HDL (test code = LDL/HDL) 0.73 Ratio See_Comment L [Automated messa ge] The system which generated this result transmitted reference range: 1.48-3.22 Avg. The reference range was not used to interpret this result as normal/abnormal. [id number] 08:50:00* Test Item Value Reference Range Interpretation Comme nts MAGNESIUM (test code = MAG) 2.1 MG/DL 1.8-2.4 N CBC W/AUTO [id number] 08:50:00* Test Item Value Reference Range Interpretation [...] c ode = MDIFF) NO DIFF/SCN CRITERIA STOOL CULTURE, NO [id number] 00:00:00* Test Item Value Reference Range Interpretation Comme nts STOOL CULTURE, NO SENS (test code = 17850) SPECIMEN NUMBER: [id number] Karlo Roldan AustinOVA AND PARASITES WITH TRICHROME [id number] 00:00:00* Test Item Value Reference Range Interpretation Comme nts O AND P CONCENTRATE #1 (test code = 179091) NEGATIVE O AND P TRICHROME #1 (test code = 544951) NEGATIVE O AND P CONCENTRATE #2 (test code = 674620) TEST NOT PERFORMED O AND P TRICHROME #2 (test code = 613849) TEST NOT PERFORMED O AND P CONCENTRATE #3 (test code = 457339) TEST NOT PERFORMED O AND P TRICHROME #3 (test code = 067982) TEST NOT PERFORMED Karlo Yuli AustinFECAL [id number] 00:00:00* Test Item Value Reference Range Interpretation Comme nts FECAL LEUKOCYTES (test code = 56645) SPECIMEN NUMBER: [id number] Karlo Roldan AustinSTOOL CULTURE, NO [id number] 00:00:00* Test Item Value Reference Range Interpretation Comme nts STOOL CULTURE, NO SENS (test code = 65717) SPECIMEN NUMBER: [id number] Karlo F AustinOVA AND PARASITES WITH TRICHROME [id number] 00:00:00* Test Item Value Reference Range Interpretation Comme nts O AND P CONCENTRATE #1 (test code = 673325) NEGATIVE O AND P TRICHROME #1 (test code = 537741) NEGATIVE O AND P CONCENTRATE #2 (test code = 118440) TEST NOT PERFORMED O AND P TRICHROME #2 (test code = 862163) TEST NOT PERFORMED O AND P CONCENTRATE #3 (test code = 380795) TEST NOT PERFORMED O AND P TRICHROME #3 (test code = 099624) TEST NOT PERFORMED Karlo F AustinFECAL [id number] 00:00:00* Test Item Value Reference Range Interpretation Comme nts FECAL LEUKOCYTES (test code = 62783) SPECIMEN NUMBER: [id number] Karlo Roldan AustinSTOOL CULTURE, NO [id number] 00:00:00* Test Item Value Reference Range Interpretation Comme nts STOOL CULTURE, NO SENS (test code = 24011) SPECIMEN NUMBER: [id number] Karlo AveryOVA AND PARASITES WITH TRICHROME [id number] 00:00:00* Test Item Value Reference Range Interpretation Comme nts O AND P CONCENTRATE #1 (test code = 179705) NEGATIVE O AND P TRICHROME #1 (test code = 532923) NEGATIVE O AND P CONCENTRATE #2 (test code = 305971) TEST NOT PERFORMED O AND P TRICHROME #2 (test code = 755971) TEST NOT PERFORMED O AND P CONCENTRATE #3 (test code = 486775) TEST NOT PERFORMED O AND P TRICHROME #3 (test code = 417893) TEST NOT PERFORMED Karlo AveryFECAL [id number] 00:00:00* Test Item Value Reference Range Interpretation Comme nts FECAL LEUKOCYTES (test code = 53799) SPECIMEN NUMBER: [id number] Karlo AverySTOOL CULTURE, NO [id number] 00:00:00* Test Item Value Reference Range Interpretation Comme nts STOOL CULTURE, NO SENS (test code = 12726) SPECIMEN NUMBER: [id number] Karlo AveryOVA AND PARASITES WITH TRICHROME [id number] 00:00:00* Test Item Value Reference Range Interpretation Comme nts O AND P CONCENTRATE #1 (test code = 586088) NEGATIVE O AND P TRICHROME #1 (test code = 182191) NEGATIVE O AND P CONCENTRATE #2 (test code = 888583) TEST NOT PERFORMED O AND P TRICHROME #2 (test code = 383527) TEST NOT PERFORMED O AND P CONCENTRATE #3 (test code = 955450) TEST NOT PERFORMED O AND P TRICHROME #3 (test code = 408551) TEST NOT PERFORMED Karlo AveryFECAL [id number] 00:00:00* Test Item Value Reference Range Interpretation Comme nts FECAL LEUKOCYTES (test code = 16775) SPECIMEN NUMBER: [id number] Karlo AverySTOOL CULTURE, NO [id number] 00:00:00* Test Item Value Reference Range Interpretation Comme nts STOOL CULTURE, NO SENS (test code = 74628) SPECIMEN NUMBER: [id number] Karlo AveryOVA AND PARASITES WITH TRICHROME [id number] 00:00:00* Test Item Value Reference Range Interpretation Comme nts O AND P CONCENTRATE #1 (test code = 082681) NEGATIVE O AND P TRICHROME #1 (test code = 418878) NEGATIVE O AND P CONCENTRATE #2 (test code = 113298) TEST NOT PERFORMED O AND P TRICHROME #2 (test code = 057365) TEST NOT PERFORMED O AND P CONCENTRATE #3 (test code = 725224) TEST NOT PERFORMED O AND P TRICHROME #3 (test code = 539174) TEST NOT PERFORMED Karlo AveryFECAL [id number] 00:00:00* Test Item Value Reference Range Interpretation Comme nts FECAL LEUKOCYTES (test code = 20454) SPECIMEN NUMBER: [id number] Karlo AverySTOOL CULTURE, NO [id number] 00:00:00* Test Item Value Reference Range Interpretation Comme nts STOOL CULTURE, NO SENS (test code = 81899) SPECIMEN NUMBER: [id number] Karlo Farr AND PARASITES WITH TRICHROME [id number] 00:00:00* Test Item Value Reference Range Interpretation Comme nts O AND P CONCENTRATE #1 (test code = 380205) NEGATIVE O AND P TRICHROME #1 (test code = 987027) NEGATIVE O AND P CONCENTRATE #2 (test code = 961251) TEST NOT PERFORMED O AND P TRICHROME #2 (test code = 497862) TEST NOT PERFORMED O AND P CONCENTRATE #3 (test code = 854352) TEST NOT PERFORMED O AND P TRICHROME #3 (test code = 638135) TEST NOT PERFORMED Karlo AveryFECAL [id number] 00:00:00* Test Item Value Reference Range Interpretation Comme nts FECAL LEUKOCYTES (test code = 40171) SPECIMEN NUMBER: [id number] Karlo AverySTOOL CULTURE, NO [id number] 00:00:00* Test Item Value Reference Range Interpretation Comme nts STOOL CULTURE, NO SENS (test code = 87765) SPECIMEN NUMBER: [id number] Karlo AveryOVA AND PARASITES WITH TRICHROME [id number] 00:00:00* Test Item Value Reference Range Interpretation Comme nts O AND P CONCENTRATE #1 (test code = 813481) NEGATIVE O AND P TRICHROME #1 (test code = 906112) NEGATIVE O AND P CONCENTRATE #2 (test code = 665148) TEST NOT PERFORMED O AND P TRICHROME #2 (test code = 351209) TEST NOT PERFORMED O AND P CONCENTRATE #3 (test code = 287060) TEST NOT PERFORMED O AND P TRICHROME #3 (test code = 100936) TEST NOT PERFORMED Karlo AveryFECAL [id number] 00:00:00* Test Item Value Reference Range Interpretation Comme nts FECAL LEUKOCYTES (test code = 70196) SPECIMEN NUMBER: [id number] Karlo Roldan AustinSTOOL CULTURE, NO [id number] 00:00:00* Test Item Value Reference Range Interpretation Comme nts STOOL CULTURE, NO SENS (test code = 81081) SPECIMEN NUMBER: [id number] Karlo oRldan AustinOVA AND PARASITES WITH TRICHROME [id number] 00:00:00* Test Item Value Reference Range Interpretation Comme nts O AND P CONCENTRATE #1 (test code = 627565) NEGATIVE O AND P TRICHROME #1 (test code = 599570) NEGATIVE O AND P CONCENTRATE #2 (test code = 637781) TEST NOT PERFORMED O AND P TRICHROME #2 (test code = 047756) TEST NOT PERFORMED O AND P CONCENTRATE #3 (test code = 985816) TEST NOT PERFORMED O AND P TRICHROME #3 (test code = 063575) TEST NOT PERFORMED Karlo AveryFECAL [id number] 00:00:00* Test Item Value Reference Range Interpretation Comme nts FECAL LEUKOCYTES (test code = 63648) SPECIMEN NUMBER: [id number] Karlo Roldan AustinCALPROTECTIN, [id number] 00:00:00* Test Item Value Reference Range Interpretation Comme nts CALPROTECTIN, FECAL (test co de = 79903) 792 mcg/g Karlo Yuli AustinCALPROTECTIN, [id number] 00:00:00* Test Item Value Reference Range Interpretation Comme nts CALPROTECTIN, FECAL (test co de = 72628) 792 mcg/g Karlo F AustinCALPROTECTIN, [id number] 00:00:00* Test Item Value Reference Range Interpretation Comme nts CALPROTECTIN, FECAL (test co de = 33421) 792 mcg/g Karlo Yuli AustinCALPROTECTIN, [id number] 00:00:00* Test Item Value Reference Range Interpretation Comme nts CALPROTECTIN, FECAL (test co de = 53474) 792 mcg/g Karlo F AustinCALPROTECTIN, [id number] 00:00:00* Test Item Value Reference Range Interpretation Comme nts CALPROTECTIN, FECAL (test co de = 79134) 792 mcg/g Karlo F AustinCALPROTECTIN, [id number] 00:00:00* Test Item Value Reference Range Interpretation Comme nts CALPROTECTIN, FECAL (test co de = 82845) 792 mcg/g Karlo F AustinCALPROTECTIN, [id number] 00:00:00* Test Item Value Reference Range Interpretation Comme nts CALPROTECTIN, FECAL (test co de = 80634) 792 mcg/g Karlo F AustinCALPROTECTIN, [id number] 00:00:00* Test Item Value Reference Range Interpretation Comme nts CALPROTECTIN, FECAL (test co de = 42137) 792 mcg/g Karlo F AustinCOMPREHENSIVE METABOLIC [id number] 00:00:00* Test Item Value Reference Range Interpretation Comme nts GLUCOSE (test code = 2217) 84 MG/DL BUN (test code = 2208) 15 MG/DL CREATININE (test code = 2214) 0.91 MG/DL eGFR (2020 CKD-EPI) (test co de = 16822) 61 ML/MIN/1.73 CALC BUN/CREAT (test code = 2235) 16 RATIO SODIUM (test code = 2231) 141 MEQ/L POTASSIUM (test code = 2228) 4.4 MEQ/L CHLORIDE (test code = 2215) 102 MEQ/L CARBON DIOXIDE (test code = 2206) 26 MEQ/L CALCIUM (test code = 2209) 10.3 MG/DL PROTEIN, TOTAL (test code = 2229) 6.7 G/DL ALBUMIN (test code = 2201) 4.1 G/DL CALC GLOBULIN (test code = 2240) 2.6 G/DL CALC A/G RATIO (test code = 2234) 1.6 RATIO BILIRUBIN, TOTAL (test code = 2207) 0.9 MG/DL ALKALINE PHOSPHATASE (test code = 2204) 92 U/L AST (test code = 2218) 20 U/L ALT (test code = 2219) 11 U/L Karlo F AustinCBC W/AUTO [id number] 00:00:00* Test Item Value Reference Range Interpretation Comme nts WBC (test code = 1001) 4.8 K/UL RBC (test code = 1002) 4.05 M/UL HEMOGLOBIN (test code = 1003) 12.5 G/DL HEMATOCRIT (test code = 1004) 37.1 % MCV (test code = 1005) 91.6 fL MCH (test code = 1006) 30.9 PG MCHC (test code = 1007) 33.7 G/DL RDW (test code = 1038) 12.0 % NEUTROPHILS (test code = 1008) 63.7 % LYMPHOCYTES (test code = 1010) 23.7 % MONOCYTES (test code = 1011) 6.7 % EOSINOPHILS (test code = 1012) 4.2 % BASOPHILS (test code = 1013) 1.5 % IMMATURE GRANULOCYTES (test code = 1036) 0.2 % NUCLEATED RBCS (test code = 1065) 0.0 /100WBC'S PLATELET COUNT (test code = 1015) 260 K/UL ABSOLUTE NEUTROPHILS (test c ode = 1066) 3.03 K/UL ABSOLUTE LYMPHOCYTES (test c ode = 1067) 1.13 K/UL ABSOLUTE MONOCYTES (test cod e = 1068) 0.32 K/UL ABSOLUTE EOSINOPHILS (test c ode = 1040) 0.20 K/UL ABSOLUTE BASOPHILS (test cod e = 1069) 0.07 K/UL ABS IMMATURE GRANULOCYTES (t est code = 1020) 0.01 K/UL ABS NUCLEATED RBCS (test cod e = 31288) 0.00 K/UL Karlo AveryCOMPREHENSIVE METABOLIC [id number] 00:00:00* Test Item Value Reference Range Interpretation Comme nts GLUCOSE (test code = 2217) 84 MG/DL BUN (test code = 2208) 15 MG/DL CREATININE (test code = 2214) 0.91 MG/DL eGFR (2020 CKD-EPI) (test co de = 25213) 61 ML/MIN/1.73 CALC BUN/CREAT (test code = 2235) 16 RATIO SODIUM (test code = 2231) 141 MEQ/L POTASSIUM (test code = 2228) 4.4 MEQ/L CHLORIDE (test code = 2215) 102 MEQ/L CARBON DIOXIDE (test code = 2206) 26 MEQ/L CALCIUM (test code = 2209) 10.3 MG/DL PROTEIN, TOTAL (test code = 2229) 6.7 G/DL ALBUMIN (test code = 2201) 4.1 G/DL CALC GLOBULIN (test code = 2240) 2.6 G/DL CALC A/G RATIO (test code = 2234) 1.6 RATIO BILIRUBIN, TOTAL (test code = 2207) 0.9 MG/DL ALKALINE PHOSPHATASE (test code = 2204) 92 U/L AST (test code = 2218) 20 U/L ALT (test code = 2219) 11 U/L Karlo AveryCBC W/AUTO [id number] 00:00:00* Test Item Value Reference Range Interpretation Comme nts WBC (test code = 1001) 4.8 K/UL RBC (test code = 1002) 4.05 M/UL HEMOGLOBIN (test code = 1003) 12.5 G/DL HEMATOCRIT (test code = 1004) 37.1 % MCV (test code = 1005) 91.6 fL MCH (test code = 1006) 30.9 PG MCHC (test code = 1007) 33.7 G/DL RDW (test code = 1038) 12.0 % NEUTROPHILS (test code = 1008) 63.7 % LYMPHOCYTES (test code = 1010) 23.7 % MONOCYTES (test code = 1011) 6.7 % EOSINOPHILS (test code = 1012) 4.2 % BASOPHILS (test code = 1013) 1.5 % IMMATURE GRANULOCYTES (test code = 1036) 0.2 % NUCLEATED RBCS (test code = 1065) 0.0 /100WBC'S PLATELET COUNT (test code = 1015) 260 K/UL ABSOLUTE NEUTROPHILS (test c ode = 1066) 3.03 K/UL ABSOLUTE LYMPHOCYTES (test c ode = 1067) 1.13 K/UL ABSOLUTE MONOCYTES (test cod e = 1068) 0.32 K/UL ABSOLUTE EOSINOPHILS (test c ode = 1040) 0.20 K/UL ABSOLUTE BASOPHILS (test cod e = 1069) 0.07 K/UL ABS IMMATURE GRANULOCYTES (t est code = 1020) 0.01 K/UL ABS NUCLEATED RBCS (test cod e = 73070) 0.00 K/UL Karlo AveryCOMPREHENSIVE METABOLIC [id number] 00:00:00* Test Item Value Reference Range Interpretation Comme nts GLUCOSE (test code = 2217) 84 MG/DL BUN (test code = 2208) 15 MG/DL CREATININE (test code = 2214) 0.91 MG/DL eGFR (2020 CKD-EPI) (test co de = 52431) 61 ML/MIN/1.73 CALC BUN/CREAT (test code = 2235) 16 RATIO SODIUM (test code = 2231) 141 MEQ/L POTASSIUM (test code = 2228) 4.4 MEQ/L CHLORIDE (test code = 2215) 102 MEQ/L CARBON DIOXIDE (test code = 2206) 26 MEQ/L CALCIUM (test code = 2209) 10.3 MG/DL PROTEIN, TOTAL (test code = 2229) 6.7 G/DL ALBUMIN (test code = 2201) 4.1 G/DL CALC GLOBULIN (test code = 2240) 2.6 G/DL CALC A/G RATIO (test code = 2234) 1.6 RATIO BILIRUBIN, TOTAL (test code = 2207) 0.9 MG/DL ALKALINE PHOSPHATASE (test code = 2204) 92 U/L AST (test code = 2218) 20 U/L ALT (test code = 2219) 11 U/L Karlo AveryCBC W/AUTO [id number] 00:00:00* Test Item Value Reference Range Interpretation Comme nts WBC (test code = 1001) 4.8 K/UL RBC (test code = 1002) 4.05 M/UL HEMOGLOBIN (test code = 1003) 12.5 G/DL HEMATOCRIT (test code = 1004) 37.1 % MCV (test code = 1005) 91.6 fL MCH (test code = 1006) 30.9 PG MCHC (test code = 1007) 33.7 G/DL RDW (test code = 1038) 12.0 % NEUTROPHILS (test code = 1008) 63.7 % LYMPHOCYTES (test code = 1010) 23.7 % MONOCYTES (test code = 1011) 6.7 % EOSINOPHILS (test code = 1012) 4.2 % BASOPHILS (test code = 1013) 1.5 % IMMATURE GRANULOCYTES (test code = 1036) 0.2 % NUCLEATED RBCS (test code = 1065) 0.0 /100WBC'S PLATELET COUNT (test code = 1015) 260 K/UL ABSOLUTE NEUTROPHILS (test c ode = 1066) 3.03 K/UL ABSOLUTE LYMPHOCYTES (test c ode = 1067) 1.13 K/UL ABSOLUTE MONOCYTES (test cod e = 1068) 0.32 K/UL ABSOLUTE EOSINOPHILS (test c ode = 1040) 0.20 K/UL ABSOLUTE BASOPHILS (test cod e = 1069) 0.07 K/UL ABS IMMATURE GRANULOCYTES (t est code = 1020) 0.01 K/UL ABS NUCLEATED RBCS (test cod e = 05544) 0.00 K/UL Karlo Roldan BennieCOMPREHENSIVE METABOLIC [id number] 00:00:00* Test Item Value Reference Range Interpretation Comme nts GLUCOSE (test code = 2217) 84 MG/DL BUN (test code = 2208) 15 MG/DL CREATININE (test code = 2214) 0.91 MG/DL eGFR (2020 CKD-EPI) (test co de = 09187) 61 ML/MIN/1.73 CALC BUN/CREAT (test code = 2235) 16 RATIO SODIUM (test code = 2231) 141 MEQ/L POTASSIUM (test code = 2228) 4.4 MEQ/L CHLORIDE (test code = 2215) 102 MEQ/L CARBON DIOXIDE (test code = 2206) 26 MEQ/L CALCIUM (test code = 2209) 10.3 MG/DL PROTEIN, TOTAL (test code = 2229) 6.7 G/DL ALBUMIN (test code = 2201) 4.1 G/DL CALC GLOBULIN (test code = 2240) 2.6 G/DL CALC A/G RATIO (test code = 2234) 1.6 RATIO BILIRUBIN, TOTAL (test code = 2207) 0.9 MG/DL ALKALINE PHOSPHATASE (test code = 2204) 92 U/L AST (test code = 2218) 20 U/L ALT (test code = 2219) 11 U/L Karlo Roldan BennieCBC W/AUTO [id number] 00:00:00* Test Item Value Reference Range Interpretation Comme nts WBC (test code = 1001) 4.8 K/UL RBC (test code = 1002) 4.05 M/UL HEMOGLOBIN (test code = 1003) 12.5 G/DL HEMATOCRIT (test code = 1004) 37.1 % MCV (test code = 1005) 91.6 fL MCH (test code = 1006) 30.9 PG MCHC (test code = 1007) 33.7 G/DL RDW (test code = 1038) 12.0 % NEUTROPHILS (test code = 1008) 63.7 % LYMPHOCYTES (test code = 1010) 23.7 % MONOCYTES (test code = 1011) 6.7 % EOSINOPHILS (test code = 1012) 4.2 % BASOPHILS (test code = 1013) 1.5 % IMMATURE GRANULOCYTES (test code = 1036) 0.2 % NUCLEATED RBCS (test code = 1065) 0.0 /100WBC'S PLATELET COUNT (test code = 1015) 260 K/UL ABSOLUTE NEUTROPHILS (test c ode = 1066) 3.03 K/UL ABSOLUTE LYMPHOCYTES (test c ode = 1067) 1.13 K/UL ABSOLUTE MONOCYTES (test cod e = 1068) 0.32 K/UL ABSOLUTE EOSINOPHILS (test c ode = 1040) 0.20 K/UL ABSOLUTE BASOPHILS (test cod e = 1069) 0.07 K/UL ABS IMMATURE GRANULOCYTES (t est code = 1020) 0.01 K/UL ABS NUCLEATED RBCS (test cod e = 27665) 0.00 K/UL Karlo AveryCOMPREHENSIVE METABOLIC [id number] 00:00:00* Test Item Value Reference Range Interpretation Comme nts GLUCOSE (test code = 2217) 84 MG/DL BUN (test code = 2208) 15 MG/DL CREATININE (test code = 2214) 0.91 MG/DL eGFR (2020 CKD-EPI) (test co de = 56715) 61 ML/MIN/1.73 CALC BUN/CREAT (test code = 2235) 16 RATIO SODIUM (test code = 2231) 141 MEQ/L POTASSIUM (test code = 2228) 4.4 MEQ/L CHLORIDE (test code = 2215) 102 MEQ/L CARBON DIOXIDE (test code = 2206) 26 MEQ/L CALCIUM (test code = 2209) 10.3 MG/DL PROTEIN, TOTAL (test code = 2229) 6.7 G/DL ALBUMIN (test code = 2201) 4.1 G/DL CALC GLOBULIN (test code = 2240) 2.6 G/DL CALC A/G RATIO (test code = 2234) 1.6 RATIO BILIRUBIN, TOTAL (test code = 2207) 0.9 MG/DL ALKALINE PHOSPHATASE (test code = 2204) 92 U/L AST (test code = 2218) 20 U/L ALT (test code = 2219) 11 U/L Karlo AveryCBC W/AUTO [id number] 00:00:00* Test Item Value Reference Range Interpretation Comme nts WBC (test code = 1001) 4.8 K/UL RBC (test code = 1002) 4.05 M/UL HEMOGLOBIN (test code = 1003) 12.5 G/DL HEMATOCRIT (test code = 1004) 37.1 % MCV (test code = 1005) 91.6 fL MCH (test code = 1006) 30.9 PG MCHC (test code = 1007) 33.7 G/DL RDW (test code = 1038) 12.0 % NEUTROPHILS (test code = 1008) 63.7 % LYMPHOCYTES (test code = 1010) 23.7 % MONOCYTES (test code = 1011) 6.7 % EOSINOPHILS (test code = 1012) 4.2 % BASOPHILS (test code = 1013) 1.5 % IMMATURE GRANULOCYTES (test code = 1036) 0.2 % NUCLEATED RBCS (test code = 1065) 0.0 /100WBC'S PLATELET COUNT (test code = 1015) 260 K/UL ABSOLUTE NEUTROPHILS (test c ode = 1066) 3.03 K/UL ABSOLUTE LYMPHOCYTES (test c ode = 1067) 1.13 K/UL ABSOLUTE MONOCYTES (test cod e = 1068) 0.32 K/UL ABSOLUTE EOSINOPHILS (test c ode = 1040) 0.20 K/UL ABSOLUTE BASOPHILS (test cod e = 1069) 0.07 K/UL ABS IMMATURE GRANULOCYTES (t est code = 1020) 0.01 K/UL ABS NUCLEATED RBCS (test cod e = 08908) 0.00 K/UL Karlo AveryCOMPREHENSIVE METABOLIC [id number] 00:00:00* Test Item Value Reference Range Interpretation Comme nts GLUCOSE (test code = 2217) 84 MG/DL BUN (test code = 2208) 15 MG/DL CREATININE (test code = 2214) 0.91 MG/DL eGFR (2020 CKD-EPI) (test co de = 63207) 61 ML/MIN/1.73 CALC BUN/CREAT (test code = 2235) 16 RATIO SODIUM (test code = 2231) 141 MEQ/L POTASSIUM (test code = 2228) 4.4 MEQ/L CHLORIDE (test code = 2215) 102 MEQ/L CARBON DIOXIDE (test code = 2206) 26 MEQ/L CALCIUM (test code = 2209) 10.3 MG/DL PROTEIN, TOTAL (test code = 2229) 6.7 G/DL ALBUMIN (test code = 2201) 4.1 G/DL CALC GLOBULIN (test code = 2240) 2.6 G/DL CALC A/G RATIO (test code = 2234) 1.6 RATIO BILIRUBIN, TOTAL (test code = 2207) 0.9 MG/DL ALKALINE PHOSPHATASE (test code = 2204) 92 U/L AST (test code = 2218) 20 U/L ALT (test code = 2219) 11 U/L Karlo Roldan [facility] W/AUTO [id number] 00:00:00* Test Item Value Reference Range Interpretation Comme nts WBC (test code = 1001) 4.8 K/UL RBC (test code = 1002) 4.05 M/UL HEMOGLOBIN (test code = 1003) 12.5 G/DL HEMATOCRIT (test code = 1004) 37.1 % MCV (test code = 1005) 91.6 fL MCH (test code = 1006) 30.9 PG MCHC (test code = 1007) 33.7 G/DL RDW (test code = 1038) 12.0 % NEUTROPHILS (test code = 1008) 63.7 % LYMPHOCYTES (test code = 1010) 23.7 % MONOCYTES (test code = 1011) 6.7 % EOSINOPHILS (test code = 1012) 4.2 % BASOPHILS (test code = 1013) 1.5 % IMMATURE GRANULOCYTES (test code = 1036) 0.2 % NUCLEATED RBCS (test code = 1065) 0.0 /100WBC'S PLATELET COUNT (test code = 1015) 260 K/UL ABSOLUTE NEUTROPHILS (test c ode = 1066) 3.03 K/UL ABSOLUTE LYMPHOCYTES (test c ode = 1067) 1.13 K/UL ABSOLUTE MONOCYTES (test cod e = 1068) 0.32 K/UL ABSOLUTE EOSINOPHILS (test c ode = 1040) 0.20 K/UL ABSOLUTE BASOPHILS (test cod e = 1069) 0.07 K/UL ABS IMMATURE GRANULOCYTES (t est code = 1020) 0.01 K/UL ABS NUCLEATED RBCS (test cod e = 50426) 0.00 K/UL Karlo AveryCOMPREHENSIVE METABOLIC [id number] 00:00:00* Test Item Value Reference Range Interpretation Comme nts GLUCOSE (test code = 2217) 84 MG/DL BUN (test code = 2208) 15 MG/DL CREATININE (test code = 2214) 0.91 MG/DL eGFR (2020 CKD-EPI) (test co de = 49435) 61 ML/MIN/1.73 CALC BUN/CREAT (test code = 2235) 16 RATIO SODIUM (test code = 2231) 141 MEQ/L POTASSIUM (test code = 2228) 4.4 MEQ/L CHLORIDE (test code = 2215) 102 MEQ/L CARBON DIOXIDE (test code = 2206) 26 MEQ/L CALCIUM (test code = 2209) 10.3 MG/DL PROTEIN, TOTAL (test code = 2229) 6.7 G/DL ALBUMIN (test code = 2201) 4.1 G/DL CALC GLOBULIN (test code = 2240) 2.6 G/DL CALC A/G RATIO (test code = 2234) 1.6 RATIO BILIRUBIN, TOTAL (test code = 2207) 0.9 MG/DL ALKALINE PHOSPHATASE (test code = 2204) 92 U/L AST (test code = 2218) 20 U/L ALT (test code = 2219) 11 U/L Karlo AveryCBC W/AUTO [id number] 00:00:00* Test Item Value Reference Range Interpretation Comme nts WBC (test code = 1001) 4.8 K/UL RBC (test code = 1002) 4.05 M/UL HEMOGLOBIN (test code = 1003) 12.5 G/DL HEMATOCRIT (test code = 1004) 37.1 % MCV (test code = 1005) 91.6 fL MCH (test code = 1006) 30.9 PG MCHC (test code = 1007) 33.7 G/DL RDW (test code = 1038) 12.0 % NEUTROPHILS (test code = 1008) 63.7 % LYMPHOCYTES (test code = 1010) 23.7 % MONOCYTES (test code = 1011) 6.7 % EOSINOPHILS (test code = 1012) 4.2 % BASOPHILS (test code = 1013) 1.5 % IMMATURE GRANULOCYTES (test code = 1036) 0.2 % NUCLEATED RBCS (test code = 1065) 0.0 /100WBC'S PLATELET COUNT (test code = 1015) 260 K/UL ABSOLUTE NEUTROPHILS (test c ode = 1066) 3.03 K/UL ABSOLUTE LYMPHOCYTES (test c ode = 1067) 1.13 K/UL ABSOLUTE MONOCYTES (test cod e = 1068) 0.32 K/UL ABSOLUTE EOSINOPHILS (test c ode = 1040) 0.20 K/UL ABSOLUTE BASOPHILS (test cod e = 1069) 0.07 K/UL ABS IMMATURE GRANULOCYTES (t est code = 1020) 0.01 K/UL ABS NUCLEATED RBCS (test cod e = 11763) 0.00 K/UL Karlo AveryCOMPREHENSIVE METABOLIC [id number] 00:00:00* Test Item Value Reference Range Interpretation Comme nts GLUCOSE (test code = 2217) 84 MG/DL BUN (test code = 2208) 15 MG/DL CREATININE (test code = 2214) 0.91 MG/DL eGFR (2020 CKD-EPI) (test co de = 71193) 61 ML/MIN/1.73 CALC BUN/CREAT (test code = 2235) 16 RATIO SODIUM (test code = 2231) 141 MEQ/L POTASSIUM (test code = 2228) 4.4 MEQ/L CHLORIDE (test code = 2215) 102 MEQ/L CARBON DIOXIDE (test code = 2206) 26 MEQ/L CALCIUM (test code = 2209) 10.3 MG/DL PROTEIN, TOTAL (test code = 2229) 6.7 G/DL ALBUMIN (test code = 2201) 4.1 G/DL CALC GLOBULIN (test code = 2240) 2.6 G/DL CALC A/G RATIO (test code = 2234) 1.6 RATIO BILIRUBIN, TOTAL (test code = 2207) 0.9 MG/DL ALKALINE PHOSPHATASE (test code = 2204) 92 U/L AST (test code = 2218) 20 U/L ALT (test code = 2219) 11 U/L Karlo AveryCBC W/AUTO [id number] 00:00:00* Test Item Value Reference Range Interpretation Comme nts WBC (test code = 1001) 4.8 K/UL RBC (test code = 1002) 4.05 M/UL HEMOGLOBIN (test code = 1003) 12.5 G/DL HEMATOCRIT (test code = 1004) 37.1 % MCV (test code = 1005) 91.6 fL MCH (test code = 1006) 30.9 PG MCHC (test code = 1007) 33.7 G/DL RDW (test code = 1038) 12.0 % NEUTROPHILS (test code = 1008) 63.7 % LYMPHOCYTES (test code = 1010) 23.7 % MONOCYTES (test code = 1011) 6.7 % EOSINOPHILS (test code = 1012) 4.2 % BASOPHILS (test code = 1013) 1.5 % IMMATURE GRANULOCYTES (test code = 1036) 0.2 % NUCLEATED RBCS (test code = 1065) 0.0 /100WBC'S PLATELET COUNT (test code = 1015) 260 K/UL ABSOLUTE NEUTROPHILS (test c ode = 1066) 3.03 K/UL ABSOLUTE LYMPHOCYTES (test c ode = 1067) 1.13 K/UL ABSOLUTE MONOCYTES (test cod e = 1068) 0.32 K/UL ABSOLUTE EOSINOPHILS (test c ode = 1040) 0.20 K/UL ABSOLUTE BASOPHILS (test cod e = 1069) 0.07 K/UL ABS IMMATURE GRANULOCYTES (t est code = 1020) 0.01 K/UL ABS NUCLEATED RBCS (test cod e = 27319) 0.00 K/UL [facility] [id number] 00:00:00* Test Item Value Reference Range Interpretation Comme nts WBC (test code = 1001) 6.2 K/UL RBC (test code = 1002) 4.22 M/UL HEMOGLOBIN (test code = 1003) 12.7 G/DL HEMATOCRIT (test code = 1004) 38.1 % MCV (test code = 1005) 90.3 fL MCH (test code = 1006) 30.1 PG MCHC (test code = 1007) 33.3 G/DL RDW (test code = 1038) 12.4 % NEUTROPHILS (test code = 1008) 70.6 % LYMPHOCYTES (test code = 1010) 16.0 % MONOCYTES (test code = 1011) 7.9 % EOSINOPHILS (test code = 1012) 4.0 % BASOPHILS (test code = 1013) 1.3 % IMMATURE GRANULOCYTES (test code = 1036) 0.2 % NUCLEATED RBCS (test code = 1065) 0.0 /100WBC'S PLATELET COUNT (test code = 1015) 272 K/UL ABSOLUTE NEUTROPHILS (test c ode = 1066) 4.37 K/UL ABSOLUTE LYMPHOCYTES (test c ode = 1067) 0.99 K/UL ABSOLUTE MONOCYTES (test cod e = 1068) 0.49 K/UL ABSOLUTE EOSINOPHILS (test c ode = 1040) 0.25 K/UL ABSOLUTE BASOPHILS (test cod e = 1069) 0.08 K/UL ABS IMMATURE GRANULOCYTES (t est code = 1020) 0.01 K/UL ABS NUCLEATED RBCS (test cod e = 40107) 0.00 K/UL Karlo AveryTSH, THIRD [id number] 00:00:00* Test Item Value Reference Range Interpretation Comme nts TSH, THIRD GENERATION (test code = 2821) 1.990 UIU/ML Karlo Roldan BennieVITAMIN D, 25 [id number] 00:00:00* Test Item Value Reference Range Interpretation Comme nts VITAMIN D, 25 OH (test code = 4958) 20 NG/ML Karlo Roldan BennieCBC W/AUTO [id number] 00:00:00* Test Item Value Reference Range Interpretation Comme nts WBC (test code = 1001) 6.2 K/UL RBC (test code = 1002) 4.22 M/UL HEMOGLOBIN (test code = 1003) 12.7 G/DL HEMATOCRIT (test code = 1004) 38.1 % MCV (test code = 1005) 90.3 fL MCH (test code = 1006) 30.1 PG MCHC (test code = 1007) 33.3 G/DL RDW (test code = 1038) 12.4 % NEUTROPHILS (test code = 1008) 70.6 % LYMPHOCYTES (test code = 1010) 16.0 % MONOCYTES (test code = 1011) 7.9 % EOSINOPHILS (test code = 1012) 4.0 % BASOPHILS (test code = 1013) 1.3 % IMMATURE GRANULOCYTES (test code = 1036) 0.2 % NUCLEATED RBCS (test code = 1065) 0.0 /100WBC'S PLATELET COUNT (test code = 1015) 272 K/UL ABSOLUTE NEUTROPHILS (test c ode = 1066) 4.37 K/UL ABSOLUTE LYMPHOCYTES (test c ode = 1067) 0.99 K/UL ABSOLUTE MONOCYTES (test cod e = 1068) 0.49 K/UL ABSOLUTE EOSINOPHILS (test c ode = 1040) 0.25 K/UL ABSOLUTE BASOPHILS (test cod e = 1069) 0.08 K/UL ABS IMMATURE GRANULOCYTES (t est code = 1020) 0.01 K/UL ABS NUCLEATED RBCS (test cod e = 40398) 0.00 K/UL Karlo AveryTSH, THIRD [id number] 00:00:00* Test Item Value Reference Range Interpretation Comme nts TSH, THIRD GENERATION (test code = 2821) 1.990 UIU/ML Karlo Roldan BennieVITAMIN D, 25 [id number] 00:00:00* Test Item Value Reference Range Interpretation Comme nts VITAMIN D, 25 OH (test code = 4958) 20 NG/ML Karlo Roldan BennieCBC W/AUTO [id number] 00:00:00* Test Item Value Reference Range Interpretation Comme nts WBC (test code = 1001) 6.2 K/UL RBC (test code = 1002) 4.22 M/UL HEMOGLOBIN (test code = 1003) 12.7 G/DL HEMATOCRIT (test code = 1004) 38.1 % MCV (test code = 1005) 90.3 fL MCH (test code = 1006) 30.1 PG MCHC (test code = 1007) 33.3 G/DL RDW (test code = 1038) 12.4 % NEUTROPHILS (test code = 1008) 70.6 % LYMPHOCYTES (test code = 1010) 16.0 % MONOCYTES (test code = 1011) 7.9 % EOSINOPHILS (test code = 1012) 4.0 % BASOPHILS (test code = 1013) 1.3 % IMMATURE GRANULOCYTES (test code = 1036) 0.2 % NUCLEATED RBCS (test code = 1065) 0.0 /100WBC'S PLATELET COUNT (test code = 1015) 272 K/UL ABSOLUTE NEUTROPHILS (test c ode = 1066) 4.37 K/UL ABSOLUTE LYMPHOCYTES (test c ode = 1067) 0.99 K/UL ABSOLUTE MONOCYTES (test cod e = 1068) 0.49 K/UL ABSOLUTE EOSINOPHILS (test c ode = 1040) 0.25 K/UL ABSOLUTE BASOPHILS (test cod e = 1069) 0.08 K/UL ABS IMMATURE GRANULOCYTES (t est code = 1020) 0.01 K/UL ABS NUCLEATED RBCS (test cod e = 12487) 0.00 K/UL Karlo GillH, THIRD [id number] 00:00:00* Test Item Value Reference Range Interpretation Comme nts TSH, THIRD GENERATION (test code = 2821) 1.990 UIU/ML Karlo AveryVITAMIN D, 25 [id number] 00:00:00* Test Item Value Reference Range Interpretation Comme nts VITAMIN D, 25 OH (test code = 4958) 20 NG/ML Karlo AveryCBC W/AUTO [id number] 00:00:00* Test Item Value Reference Range Interpretation Comme nts WBC (test code = 1001) 6.2 K/UL RBC (test code = 1002) 4.22 M/UL HEMOGLOBIN (test code = 1003) 12.7 G/DL HEMATOCRIT (test code = 1004) 38.1 % MCV (test code = 1005) 90.3 fL MCH (test code = 1006) 30.1 PG MCHC (test code = 1007) 33.3 G/DL RDW (test code = 1038) 12.4 % NEUTROPHILS (test code = 1008) 70.6 % LYMPHOCYTES (test code = 1010) 16.0 % MONOCYTES (test code = 1011) 7.9 % EOSINOPHILS (test code = 1012) 4.0 % BASOPHILS (test code = 1013) 1.3 % IMMATURE GRANULOCYTES (test code = 1036) 0.2 % NUCLEATED RBCS (test code = 1065) 0.0 /100WBC'S PLATELET COUNT (test code = 1015) 272 K/UL ABSOLUTE NEUTROPHILS (test c ode = 1066) 4.37 K/UL ABSOLUTE LYMPHOCYTES (test c ode = 1067) 0.99 K/UL ABSOLUTE MONOCYTES (test cod e = 1068) 0.49 K/UL ABSOLUTE EOSINOPHILS (test c ode = 1040) 0.25 K/UL ABSOLUTE BASOPHILS (test cod e = 1069) 0.08 K/UL ABS IMMATURE GRANULOCYTES (t est code = 1020) 0.01 K/UL ABS NUCLEATED RBCS (test cod e = 86300) 0.00 K/UL Karlo Armando, THIRD [id number] 00:00:00* Test Item Value Reference Range Interpretation Comme nts TSH, THIRD GENERATION (test code = 2821) 1.990 UIU/ML Karlo AveryVITAMIN D, 25 [id number] 00:00:00* Test Item Value Reference Range Interpretation Comme nts VITAMIN D, 25 OH (test code = 4958) 20 NG/ML Karlo AveryCBC W/AUTO [id number] 00:00:00* Test Item Value Reference Range Interpretation Comme nts WBC (test code = 1001) 6.2 K/UL RBC (test code = 1002) 4.22 M/UL HEMOGLOBIN (test code = 1003) 12.7 G/DL HEMATOCRIT (test code = 1004) 38.1 % MCV (test code = 1005) 90.3 fL MCH (test code = 1006) 30.1 PG MCHC (test code = 1007) 33.3 G/DL RDW (test code = 1038) 12.4 % NEUTROPHILS (test code = 1008) 70.6 % LYMPHOCYTES (test code = 1010) 16.0 % MONOCYTES (test code = 1011) 7.9 % EOSINOPHILS (test code = 1012) 4.0 % BASOPHILS (test code = 1013) 1.3 % IMMATURE GRANULOCYTES (test code = 1036) 0.2 % NUCLEATED RBCS (test code = 1065) 0.0 /100WBC'S PLATELET COUNT (test code = 1015) 272 K/UL ABSOLUTE NEUTROPHILS (test c ode = 1066) 4.37 K/UL ABSOLUTE LYMPHOCYTES (test c ode = 1067) 0.99 K/UL ABSOLUTE MONOCYTES (test cod e = 1068) 0.49 K/UL ABSOLUTE EOSINOPHILS (test c ode = 1040) 0.25 K/UL ABSOLUTE BASOPHILS (test cod e = 1069) 0.08 K/UL ABS IMMATURE GRANULOCYTES (t est code = 1020) 0.01 K/UL ABS NUCLEATED RBCS (test cod e = 73658) 0.00 K/UL Karlo F AustinTSH, THIRD [id number] 00:00:00* Test Item Value Reference Range Interpretation Comme nts TSH, THIRD GENERATION (test code = 2821) 1.990 UIU/ML Karlo AveryVITAMIN D, 25 [id number] 00:00:00* Test Item Value Reference Range Interpretation Comme nts VITAMIN D, 25 OH (test code = 4958) 20 NG/ML Karlo AveryCBC W/AUTO [id number] 00:00:00* Test Item Value Reference Range Interpretation Comme nts WBC (test code = 1001) 6.2 K/UL RBC (test code = 1002) 4.22 M/UL HEMOGLOBIN (test code = 1003) 12.7 G/DL HEMATOCRIT (test code = 1004) 38.1 % MCV (test code = 1005) 90.3 fL MCH (test code = 1006) 30.1 PG MCHC (test code = 1007) 33.3 G/DL RDW (test code = 1038) 12.4 % NEUTROPHILS (test code = 1008) 70.6 % LYMPHOCYTES (test code = 1010) 16.0 % MONOCYTES (test code = 1011) 7.9 % EOSINOPHILS (test code = 1012) 4.0 % BASOPHILS (test code = 1013) 1.3 % IMMATURE GRANULOCYTES (test code = 1036) 0.2 % NUCLEATED RBCS (test code = 1065) 0.0 /100WBC'S PLATELET COUNT (test code = 1015) 272 K/UL ABSOLUTE NEUTROPHILS (test c ode = 1066) 4.37 K/UL ABSOLUTE LYMPHOCYTES (test c ode = 1067) 0.99 K/UL ABSOLUTE MONOCYTES (test cod e = 1068) 0.49 K/UL ABSOLUTE EOSINOPHILS (test c ode = 1040) 0.25 K/UL ABSOLUTE BASOPHILS (test cod e = 1069) 0.08 K/UL ABS IMMATURE GRANULOCYTES (t est code = 1020) 0.01 K/UL ABS NUCLEATED RBCS (test cod e = 53703) 0.00 K/UL Karlo Armando, THIRD [id number] 00:00:00* Test Item Value Reference Range Interpretation Comme nts TSH, THIRD GENERATION (test code = 2821) 1.990 UIU/ML Karlo AveryVITAMIN D, 25 [id number] 00:00:00* Test Item Value Reference Range Interpretation Comme nts VITAMIN D, 25 OH (test code = 4958) 20 NG/ML Karlo AveryCBC W/AUTO [id number] 00:00:00* Test Item Value Reference Range Interpretation Comme nts WBC (test code = 1001) 6.2 K/UL RBC (test code = 1002) 4.22 M/UL HEMOGLOBIN (test code = 1003) 12.7 G/DL HEMATOCRIT (test code = 1004) 38.1 % MCV (test code = 1005) 90.3 fL MCH (test code = 1006) 30.1 PG MCHC (test code = 1007) 33.3 G/DL RDW (test code = 1038) 12.4 % NEUTROPHILS (test code = 1008) 70.6 % LYMPHOCYTES (test code = 1010) 16.0 % MONOCYTES (test code = 1011) 7.9 % EOSINOPHILS (test code = 1012) 4.0 % BASOPHILS (test code = 1013) 1.3 % IMMATURE GRANULOCYTES (test code = 1036) 0.2 % NUCLEATED RBCS (test code = 1065) 0.0 /100WBC'S PLATELET COUNT (test code = 1015) 272 K/UL ABSOLUTE NEUTROPHILS (test c ode = 1066) 4.37 K/UL ABSOLUTE LYMPHOCYTES (test c ode = 1067) 0.99 K/UL ABSOLUTE MONOCYTES (test cod e = 1068) 0.49 K/UL ABSOLUTE EOSINOPHILS (test c ode = 1040) 0.25 K/UL ABSOLUTE BASOPHILS (test cod e = 1069) 0.08 K/UL ABS IMMATURE GRANULOCYTES (t est code = 1020) 0.01 K/UL ABS NUCLEATED RBCS (test cod e = 88920) 0.00 K/UL Karlo AveryTSH, THIRD [id number] 00:00:00* Test Item Value Reference Range Interpretation Comme nts TSH, THIRD GENERATION (test code = 2821) 1.990 UIU/ML Karlo AveryVITAMIN D, 25 [id number] 00:00:00* Test Item Value Reference Range Interpretation Comme nts VITAMIN D, 25 OH (test code = 4958) 20 NG/ML Karlo AveryCBC W/AUTO [id number] 00:00:00* Test Item Value Reference Range Interpretation Comme nts WBC (test code = 1001) 6.2 K/UL RBC (test code = 1002) 4.22 M/UL HEMOGLOBIN (test code = 1003) 12.7 G/DL HEMATOCRIT (test code = 1004) 38.1 % MCV (test code = 1005) 90.3 fL MCH (test code = 1006) 30.1 PG MCHC (test code = 1007) 33.3 G/DL RDW (test code = 1038) 12.4 % NEUTROPHILS (test code = 1008) 70.6 % LYMPHOCYTES (test code = 1010) 16.0 % MONOCYTES (test code = 1011) 7.9 % EOSINOPHILS (test code = 1012) 4.0 % BASOPHILS (test code = 1013) 1.3 % IMMATURE GRANULOCYTES (test code = 1036) 0.2 % NUCLEATED RBCS (test code = 1065) 0.0 /100WBC'S PLATELET COUNT (test code = 1015) 272 K/UL ABSOLUTE NEUTROPHILS (test c ode = 1066) 4.37 K/UL ABSOLUTE LYMPHOCYTES (test c ode = 1067) 0.99 K/UL ABSOLUTE MONOCYTES (test cod e = 1068) 0.49 K/UL ABSOLUTE EOSINOPHILS (test c ode = 1040) 0.25 K/UL ABSOLUTE BASOPHILS (test cod e = 1069) 0.08 K/UL ABS IMMATURE GRANULOCYTES (t est code = 1020) 0.01 K/UL ABS NUCLEATED RBCS (test cod e = 22641) 0.00 K/UL Karlo AveryTSH, THIRD [id number] 00:00:00* Test Item Value Reference Range Interpretation Comme nts TSH, THIRD GENERATION (test code = 2821) 1.990 UIU/ML Karlo AveryVITAMIN D, 25 [id number] 00:00:00* Test Item Value Reference Range Interpretation Comme nts VITAMIN D, 25 OH (test code = 4958) 20 NG/ML Karlo AveryTROPONIN [id number] 01:50:28* Test Item Value Reference Range Interpretation Comments TROPONIN I (test code = 8468848312) 0.006 ng/mL See_Comment [Automated message] The system [...] of biotin. Lab Interpretation (test code = 60058-3) [id number] 01:47:31* Test Item Value Reference Range Interpretation Comme nts NT-proBNP (test code = 2862424021) 488 pg/mL See_Comment H [Automated message] The system which generated this result transmitted reference range: <=450. The reference range was not used to interpret this result as normal/abnormal. SUZE (test code = SUZE) Biotin has been reported to cause a negative bias, interpret results relative to patient's use of biotin. Lab Interpretation (test code = 98428-1) [facility] ([id number] 01:34:28* Test Item Value Reference Range Interpretation Comme nts NA (test code = 9897580672) 135 mmol/L 135-145 K (test code = 0785880115) 3.6 mmol/L 3.5-5 CL (test code = 9171292036) 102 mmol/L 98-108 CO2 TOTAL (test code = 8807344785) 25 mmol/L 23-31 AGAP (test code = 2925571140) 2-16 BUN (test code = 8196883539) 15 mg/dL 7-23 GLUCOSE (test code = 1571599326) 92 mg/dL 70-110 CREATININE (test code = 4227365917) 0.91 mg/dL 0.5-1.04 TOTAL BILI (test code = 0411347730) 1.2 mg/dL 0.1-1.1 H CALCIUM (test code = 0533076355) 9.2 mg/dL 8.6-10.6 T PROTEIN (test code = 5216865470) 6.6 g/dL 6.3-8.2 ALBUMIN (test code = 6357393749) 4.4 g/dL 3.5-5 ALK PHOS (test code = 9186739494) 95 U/L 34-122 ALTv (test code = 1742-6) 22 U/L 5-35 AST(SGOT) (test code = 4334092380) 34 U/L 13-40 eGFR (test code = 9694696020) mL/min/1.73m2 SUZE (test code = SUZE) Association [...] imaging tests). Lab Interpretation (test code = 01286-7) Abnormal [facility] WITH [id number] 01:21:05* Test Item Value Reference Range Interpretation [...] 33.3 g/dL 31.6-35.1 RDW-SD (test code = 60983-9) 40.9 fL 39-49.9 RDW-CV (test code = 788-0) 12.2 % 12-15.5 PLT (test code = 777-3) See_Comment [Automated messa ge] The system which generated this result transmitted reference range: 166 - 358 10*3/?L. The reference range was not used to interpret this result as normal/abnormal. MPV (test code = 80185-1) 9.9 fL 9.5-12.9 NRBC/100 WBC (test code = 7422017046) See_Comment [Automated [email or web address] ssage] The system which generated this result transmitted reference range: 0.0 - 10.0 /100 WBCs. The reference range was not used to interpret this result as normal/abnormal. NRBC x10^3 (test code = 0104717190) See_Comment [Automated messa ge] The system which generated this result transmitted reference range: 10*3/?L. The reference range was not used to interpret this result as normal/abnormal. GRAN MAT (NEUT) % (test code = 770-8) 76.4 % IMM GRAN % (test code = 8745293848) 0.20 % LYMPH % (test code = 736-9) 8.3 % MONO % (test code = 5905-5) 9.5 % EOS % (test code = 713-8) 4.4 % BASO % (test code = 706-2) 1.2 % GRAN MAT x10^3(ANC) (test code = 9364815718) 4.50 10*3/uL 1.88-7.09 IMM GRAN x10^3 (test code = 0622474111) 0-0.06 LYMPH x10^3 (test code = 731-0) 0.49 10*3/uL 1.32-3.29 L MONO x10^3 (test code = 742-7) 0.56 10*3/uL 0.33-0.92 EOS x10^3 (test code = 711-2) 0.26 10*3/uL 0.03-0.39 BASO x10^3 (test code = 704-7) 0.07 10*3/uL 0.01-0.07 Lab Interpretation (test code = 47265-8) Abnormal [facility] METABOLIC PANEL (NA, K, CL, CO2, GLUCOSE, BUN, CREATININE, CA)2021-10-05 10:08:40* Test Item Value Reference Range Interpretation Comme nts NA (test code = 8444572534) 135 mmol/L 135-145 K (test code = 0701209984) 3.9 mmol/L 3.5-5 CL (test code = 3338644124) 106 mmol/L 98-108 CO2 TOTAL (test code = 6067983877) 27 mmol/L 23-31 AGAP (test code = 1603130255) 2-16 BUN (test code = 0163619034) 17 mg/dL 7-23 GLUCOSE (test code = 4621435404) 100 mg/dL 70-110 CREATININE (test code = 0836750190) 1.21 mg/dL 0.5-1.04 H CALCIUM (test code = 8229395484) 8.7 mg/dL 8.6-10.6 eGFR (test code = 9949839713) mL/min/1.73m2 SUZE (test code = SUZE) Association [...] imaging tests). Lab Interpretation (test code = 07292-9) [facility] Test Item Value Reference Range Interpretation Comme nts MAGNESIUM (test code = 6615778829) 1.8 mg/dL 1.7-2.4 Lab Interpretation (test cod e = 95615-3) Normal [facility] WITHOUT [id number] 09:30:59* Test Item Value Reference Range Interpretation [...] result as normal/abnormal. MPV (test code = 06503-5) 10.0 fL 9.5-12.9 RDW-CV (test code = 788-0) 12.1 % 12-15.5 RDW-SD (test code = 91297-2) 41.6 fL 39-49.9 NRBC x10^3 (test code = 4517461949) See_Comment [Automated messa ge] The system which generated this result transmitted reference range: 10*3/?L. The reference range was not used to interpret this result as normal/abnormal. NRBC/100 WBC (test code = 0316829006) See_Comment [Automated messa ge] The system which generated this result transmitted reference range: 0.0 - 10.0 /100 WBCs. The reference range was not used to interpret this result as normal/abnormal. IPF % (test code = 8459627910) Lab Interpretation (test code = 98678-3) Abnormal [facility] WITH [id number] 10:56:20* Test Item Value Reference Range Interpretation [...] 34.7 g/dL 31.6-35.1 RDW-SD (test code = 45067-2) 41.0 fL 39-49.9 RDW-CV (test code = 788-0) 12.1 % 12-15.5 PLT (test code = 777-3) See_Comment [Automated messa ge] The system which generated this result transmitted reference range: 166 - 358 10*3/?L. The reference range was not used to interpret this result as normal/abnormal. MPV (test code = 51713-2) 9.5 fL 9.5-12.9 NRBC/100 WBC (test code = [id number]) See_Comment [Automated [email or web address] ssage] The system which generated this result transmitted reference range: 0.0 - 10.0 /100 WBCs. The reference range was not used to interpret this result as normal/abnormal. NRBC x10^3 (test code = 0896444772) See_Comment [Automated messa ge] The system which generated this result transmitted reference range: 10*3/?L. The reference range was not used to interpret this result as normal/abnormal. GRAN MAT (NEUT) % (test code = 770-8) 50.7 % IMM GRAN % (test code = 6038374567) 0.30 % LYMPH % (test code = 736-9) 27.0 % MONO % (test code = 5905-5) 10.1 % EOS % (test code = 713-8) 10.7 % BASO % (test code = 706-2) 1.2 % GRAN MAT x10^3(ANC) (test code = 2097924046) 1.65 10*3/uL 1.88-7.09 L IMM GRAN x10^3 (test code = 2348402998) 0-0.06 LYMPH x10^3 (test code = 731-0) 0.88 10*3/uL 1.32-3.29 L MONO x10^3 (test code = 742-7) 0.33 10*3/uL 0.33-0.92 EOS x10^3 (test code = 711-2) 0.35 10*3/uL 0.03-0.39 BASO x10^3 (test code = 704-7) 0.04 10*3/uL 0.01-0.07 Lab Interpretation (test code = 17683-3) Abnormal [facility] METABOLIC PANEL (NA, K, CL, CO2, GLUCOSE, BUN, CREATININE, CA)2021-10-04 10:47:23* Test Item Value Reference Range Interpretation Comme nts NA (test code = 5830725796) 133 mmol/L 135-145 L K (test code = 5473710013) 3.8 mmol/L 3.5-5 CL (test code = 8648931149) 105 mmol/L 98-108 CO2 TOTAL (test code = 3458139898) 29 mmol/L 23-31 AGAP (test code = 5029694047) 2-16 L BUN (test code = 4934870651) 10 mg/dL 7-23 GLUCOSE (test code = 0747499930) 89 mg/dL 70-110 CREATININE (test code = 2121785329) 1.03 mg/dL 0.5-1.04 CALCIUM (test code = 7972260280) 8.6 mg/dL 8.6-10.6 eGFR (test code = 2578267070) mL/min/1.73m2 SUZE (test code = SUZE) Association [...] imaging tests). Lab Interpretation (test code = 62815-1) [facility]:27:12* Test Item Value Reference Range Interpretation Comme nts MAGNESIUM (test code = 0036907681) 1.8 mg/dL 1.7-2.4 Lab Interpretation (test cod e = 24021-9) Normal [facility] WITH [id number] 03:39:50* Test Item Value Reference Range Interpretation Comme nts WBC (test code = 6690-2) See_Comment L [Automated [employer]] The system which generated this result transmitted reference range: 4.30 - 11.10 10*3/?L. The reference range was not used to interpret this result as normal/abnormal. RBC (test code = 789-8) See_Comment L [Automated [employer]] The system which generated this result transmitted [...] 34.0 g/dL 31.6-35.1 RDW-SD (test code = 99484-6) 40.8 fL 39-49.9 RDW-CV (test code = 788-0) 11.9 % 12-15.5 L PLT (test code = 777-3) See_Comment L [Automated messa ge] The system which generated this result transmitted reference range: 166 - 358 10*3/?L. The reference range was not used to interpret this result as normal/abnormal. MPV (test code = 91502-3) 9.8 fL 9.5-12.9 NRBC/100 WBC (test code = 2434840926) See_Comment [Automated [email or web address] ssage] The system which generated this result transmitted reference range: 0.0 - 10.0 /100 WBCs. The reference range was not used to interpret this result as normal/abnormal. NRBC x10^3 (test code = 6175152563) See_Comment [Automated messa ge] The system which generated this result transmitted reference range: 10*3/?L. The reference range was not used to interpret this result as normal/abnormal. GRAN MAT (NEUT) % (test code = 770-8) 51.4 % IMM GRAN % (test code = 0766054062) 0.30 % LYMPH % (test code = 736-9) 26.5 % MONO % (test code = 5905-5) 10.8 % EOS % (test code = 713-8) 10.0 % BASO % (test code = 706-2) 1.0 % GRAN MAT x10^3(ANC) (test code = 2550471972) 1.96 10*3/uL 1.88-7.09 IMM GRAN x10^3 (test code = 9449658161) 0-0.06 LYMPH x10^3 (test code = 731-0) 1.01 10*3/uL 1.32-3.29 L MONO x10^3 (test code = 742-7) 0.41 10*3/uL 0.33-0.92 EOS x10^3 (test code = 711-2) 0.38 10*3/uL 0.03-0.39 BASO x10^3 (test code = 704-7) 0.04 10*3/uL 0.01-0.07 Lab Interpretation (test code = 87423-5) [facility] [id number] 03:38:54* Test Item Value Reference Range Interpretation Comme nts ABO & RH (test code = 20) O POSITIVE Performed at [facility] Laboratory Services - [facility] Blood [place] [address]Toll Free: [phone] No. [id number] IAT (test code = 1185) Negative Performed at [facility] Laboratory Services - [facility] Blood [address] Free: [phone] No. [id number] [facility] [id number] 15:51:56* Test Item Value Reference Range Interpretation Comme nts IRON (test code = 4772908110) 78 ug/dL 50-160 TIBC (test code = 7020951582) 296 ug/dL 250-410 % FE SAT (test code = 6649915525) 26 % 20-50 Lab Interpretation (test cod e = 14313-1) [facility] (NA, K, CL, CO2, GLUCOSE, BUN, CREATININE, CA)2021-10-03 04:19:41* Test Item Value Reference Range Interpretation Comme nts NA (test code = 2017823879) 136 mmol/L 135-145 K (test code = 2142394755) 3.5 mmol/L 3.5-5 CL (test code = 5583886672) 103 mmol/L 98-108 CO2 TOTAL (test code = 1016307988) 29 mmol/L 23-31 AGAP (test code = 7935051723) 2-16 BUN (test code = 0990972754) 14 mg/dL 7-23 GLUCOSE (test code = 8243106199) 118 mg/dL 70-110 H CREATININE (test code = 4624893126) 0.90 mg/dL 0.5-1.04 CALCIUM (test code = 4018074961) 9.4 mg/dL 8.6-10.6 eGFR (test code = 0512795964) mL/min/1.73m2 SUZE (test code = SUZE) Association [...] imaging tests). Lab Interpretation (test code = 61449-3) Abnormal [facility] WITH [id number] 03:59:15* Test Item Value Reference Range Interpretation Comme nts WBC (test code = 6690-2) See_Comment [Automated Zeuss] The system which generated this result transmitted reference range: 4.30 - 11.10 10*3/?L. The reference range was not used to interpret this result as normal/abnormal. RBC (test code = 789-8) See_Comment [Automated Zeuss] The system which generated this result transmitted [...] 33.9 g/dL 31.6-35.1 RDW-SD (test code = 83477-2) 42.7 fL 39-49.9 RDW-CV (test code = 788-0) 12.3 % 12-15.5 PLT (test code = 777-3) See_Comment [Automated [employer] ge] The system which generated this result transmitted reference range: 166 - 358 10*3/?L. The reference range was not used to interpret this result as normal/abnormal. MPV (test code = 90047-2) 9.7 fL 9.5-12.9 NRBC/100 WBC (test code = 8104644248) See_Comment [Automated [email or web address] ssage] The system which generated this result transmitted reference range: 0.0 - 10.0 /100 WBCs. The reference range was not used to interpret this result as normal/abnormal. NRBC x10^3 (test code = 6179440557) See_Comment [Automated [employer] ge] The system which generated this result transmitted reference range: 10*3/?L. The reference range was not used to interpret this result as normal/abnormal. GRAN MAT (NEUT) % (test code = 770-8) 66.4 % IMM GRAN % (test code = 3649020687) 0.10 % LYMPH % (test code = 736-9) 19.6 % MONO % (test code = 5905-5) 7.0 % EOS % (test code = 713-8) 5.7 % BASO % (test code = 706-2) 1.2 % GRAN MAT x10^3(ANC) (test code = 4884835543) 4.55 10*3/uL 1.88-7.09 IMM GRAN x10^3 (test code = 6836956563) 0-0.06 LYMPH x10^3 (test code = 731-0) 1.34 10*3/uL 1.32-3.29 MONO x10^3 (test code = 742-7) 0.48 10*3/uL 0.33-0.92 EOS x10^3 (test code = 711-2) 0.39 10*3/uL 0.03-0.39 BASO x10^3 (test code = 704-7) 0.08 10*3/uL 0.01-0.07 H Lab Interpretation (test code = 38588-2) Abnormal [facility] (A1C)2021-10-03 03:46:09* Test Item Value Reference Range Interpretation Comme nts HGB A1C (test code = 4548-4) 5.0 % 4-5.7 SUZE (test code = SUZE) Reference RangesNormal: <5.7%Prediabetes: 5.7 - 6.4%Diabetes: > 6.5% Lab Interpretation (test code = 33946-9) Normal [facility] (Lab Only)2021-10-02 21:53:37* Test Item Value Reference Range Interpretation Comme nts ABO & RH (test code = 20) O Positive Performed at [facility] Laboratory Services [facility] Blood [place] [address]Toll Free: [phone] No. [id number] [facility] ONCE [id number] 21:34:44 * Test Item Value Reference Range Interpretation Comme nts ABO & RH (test code = 20) O Positive Performed at [facility] Laboratory [facility] Blood [address]Toll Free: [phone] No. [id number] IAT (test code = 1185) Negative Performed at [facility] Laboratory [facility] Blood [address]Toll Free: [phone] No. [id number] [facility] METABOLIC PANEL ([address])2021-10-02 21:13:27* Test Item Value Reference Range Interpretation Comme nts NA (test code = 2669449048) 139 mmol/L 135-145 K (test code = 5030400811) 4.2 mmol/L 3.5-5 CL (test code = 4018727195) 102 mmol/L 98-108 CO2 TOTAL (test code = 0856699001) 29 mmol/L 23-31 AGAP (test code = 3871444417) 2-16 BUN (test code = 4199783564) 17 mg/dL 7-23 GLUCOSE (test code = 1935286751) 89 mg/dL 70-110 CREATININE (test code = 1965651704) 0.85 mg/dL 0.5-1.04 TOTAL BILI (test code = 6821303511) 1.5 mg/dL 0.1-1.1 H CALCIUM (test code = 4126985968) 9.5 mg/dL 8.6-10.6 T PROTEIN (test code = 4250688661) 6.9 g/dL 6.3-8.2 ALBUMIN (test code = 4439482119) 4.5 g/dL 3.5-5 ALK PHOS (test code = 3748477339) 83 U/L 34-122 ALTv (test code = 1742-6) 24 U/L 5-35 AST(SGOT) (test code = 4956648597) 35 U/L 13-40 eGFR (test code = 7356208937) mL/min/1.73m2 SUZE (test code = SUZE) Association [...] imaging tests). Lab Interpretation (test code = 41489-6) Abnormal [facility] THRMPLAS [id number] 21:10:23* Test Item Value Reference Range Interpretation Comme [facility] APTT Patient (test code = 3173-2) See_Comment [Automated message] The system which generated this result transmitted reference range: 23 - 38 Seconds. The reference range was not used to interpret this result as normal/abnormal. SUZE (test code = USZE) The [facility] patient population mean normal value for aPTT is 30 seconds. Lab Interpretation (test code = 13122-6) Normal [facility] / [id number] 21:08:06* Test Item Value Reference Range Interpretation Comme [facility] PROTIME PATIENT (test code = 5964-2) See_Comment H [Automated [employer]] The system which generated this result transmitted reference range: 12.0 - 14.7 Seconds. The reference range was not used to interpret this result as normal/abnormal. INR (test code = 6301-6) Normal INR <1.1; Warfarin Therapeutic range 2.0 to 3.0 or 2.5 to 3.5, depending upon the indications. Lab Interpretation (test code = 47351-1) Abnormal [facility] WITH [id number] 21:02:42* Test Item Value Reference Range Interpretation Comme [facility] WBC (test code = 6690-2) See_Comment [Automated Zeuss] The system which generated this result transmitted reference range: 4.30 - 11.10 10*3/?L. The reference range was not used to interpret this result as normal/abnormal. RBC (test code = 789-8) See_Comment [Automated [employer]] The system which generated this result transmitted [...] 33.6 g/dL 31.6-35.1 RDW-SD (test code = 66934-9) 42.0 fL 39-49.9 RDW-CV (test code = 788-0) 12.2 % 12-15.5 PLT (test code = 777-3) See_Comment [Automated messa ge] The system which generated this result transmitted reference range: 166 - 358 10*3/?L. The reference range was not used to interpret this result as normal/abnormal. MPV (test code = 23759-8) 9.6 fL 9.5-12.9 NRBC/100 WBC (test code = 3789429650) See_Comment [Automated [email or web address] ssage] The system which generated this result transmitted reference range: 0.0 - 10.0 /100 WBCs. The reference range was not used to interpret this result as normal/abnormal. NRBC x10^3 (test code = 6839904785) See_Comment [Automated [employer] ge] The system which generated this result transmitted reference range: 10*3/?L. The reference range was not used to interpret this result as normal/abnormal. GRAN MAT (NEUT) % (test code = 770-8) 66.2 % IMM GRAN % (test code = 6626925247) 0.20 % LYMPH % (test code = 736-9) 19.5 % MONO % (test code = 5905-5) 7.0 % EOS % (test code = 713-8) 5.7 % BASO % (test code = 706-2) 1.4 % GRAN MAT x10^3(ANC) (test code = 8157765356) 5.56 10*3/uL 1.88-7.09 IMM GRAN x10^3 (test code = 4891557510) 0-0.06 LYMPH x10^3 (test code = 731-0) 1.64 10*3/uL 1.32-3.29 MONO x10^3 (test code = 742-7) 0.59 10*3/uL 0.33-0.92 EOS x10^3 (test code = 711-2) 0.48 10*3/uL 0.03-0.39 H BASO x10^3 (test code = 704-7) 0.12 10*3/uL 0.01-0.07 H Lab Interpretation (test code = 36613-1) Abnormal [facility] Notes Date/Time Note Provider Source [facility] [address]2025-07-17 00:00:00 [facility] [address]2025-04-04 00:00:00 [facility] [address]2025-01-16 00:00:00 [facility] [address]2024-10-11 00:00:00 [facility] [address]2024-09-10 00:00:00 [facility] [address]2024-06-14 00:00:00 [facility] [address]2023-09-11 21:29:182182-[address]129 [place] [address] PATIENT NAME: LESELY BREAUX ADMIT DATE: 09/19/22 ACCOUNT NO: [id number] ROOM NO: [facility] AGE: 87 REPORT TYPE: 360 - QUERY RESPONSE DOCUMENT SEX: F ADMITTING PHYSICIAN: Tejinder Toribio MD ATTENDING PHYSICIAN: Gissel Ortega MD Cardiology Provider Query QUERY TEXT: Condition Nutritional Status 360MD Query related questions should be directed to:[facility] Coding Query Helpline Based on your clinical judgment, please clarify the condition(s) that represent(s) the clinical indicators listed below. The patient's Clinical Indicators include: BMI Calculated: 19.3 Nutrition related diagnosis: Severe malnutrition- Wound Care Progress Note 10/01/2022 Total Protein (6.4 - 8.2 G/DL) 4.6 L-Pulmonology Progress Note 09/29/2022 Albumin (3.4 - 5.0 G/DL) 1.9 L-Pulmonology Progress Note 09/29/2022 SODIUM CHLORIDE 0.9% 100 ML BAG-MAR SODIUM CHLORIDE 0.9% 500 ML BAG-MAR Options provided: -- Mild protein-calorie/protein-energy malnutrition, Please specify supporting clinical documentation for severity (e.g. BMI, serum albumin, total lymphocyte count, CD4+, etc.) as well as supporting conditions such as disorders that affect GI function, wasting disorders, or metabolic conditions. -- Moderate protein-calorie/protein-energy malnutrition, Please specify supporting clinical documentation for severity (e.g. BMI, serum albumin, total lymphocyte count, CD4+, etc.) as well as supporting conditions such as disorders that affect GI function, wasting disorders, or metabolic conditions. -- Severe protein-calorie/protein-energy malnutrition, Please specify supporting clinical documentation for severity (e.g. BMI, serum albumin, total lymphocyte count, CD4+, etc.) as well as supporting conditions such as disorders that affect GI function, wasting disorders, or metabolic conditions. -- Unspecified protein-calorie/protein-energy malnutrition -- Failure to thrive -- Weight Loss -- Underweight -- Other - I will add my own diagnosis -- Dismiss - Not applicable / Not valid -- Dismiss - Clinically unable to determine / Unknown -- Assign to another provider QUERY RESPONSE: The patient has mild protein-calorie/protein-energy malnutrition. Query created by: BRENT Gomez on 10/06/2022 2:32 AM at 3243 PATIENT NAME: LESLEY BREAUX 18:28:00 [id number] [address] PATIENT NAME: LESLEY BREAUX ADMIT DATE: 09/19/22 ACCOUNT NO: [id number] ROOM NO: L.S201 AGE: 87 REPORT TYPE: 360 - QUERY RESPONSE DOCUMENT SEX: F ADMITTING PHYSICIAN: Tejinder Toribio MD ATTENDING PHYSICIAN: Gissel Ortega MD Cardiology Provider Query QUERY TEXT: Clarification Infectious Status POA 360MD Query related questions should be directed to: [facility] Coding Query Helpline Based on your clinical judgment, please clarify the condition(s) that represent(s) the clinical indicators listed below and if the condition(s) are present on admission (POA). The following definitions are provided based on industry literature and in collaboration with [facility] Clinical Services Group for your reference only: --Localized Infection - An infection that affects only one organ or body part (e.g., UTI, Pneumonia) --Bacteremia - Nonspecific laboratory finding of bacteria in the blood --Sepsis - A presumed or confirmed systemic response to infectious process with >2 clinical indicators such as: Temperature >38.3C or <36.0C, tachycardia, > 20 respiratory rate, WBC >12,000 or < 4,000 or > 10% bands --Severe Sepsis - Sepsis with additional clinical indicators [...] PTT > 60 sec, lactate > 2 mmol/L --Septic Shock - Severe Sepsis with Lactic acid > 4 mmol/L or persistent hypotension The patient's Clinical Indicators include: SIRS (fever, leukocytosis) likely due to above-Infectious Dis. Progress Note 10/01/2022 ventricular tachycardia. -CARDIAC CATHETERIZATION 09/18/2022 Recurrent C. difficile colitis-Pulmonology Progress Note 09/30/2022 ceFAZolin SODIUM 1 GM VIAL-MAR NOREPINEPHRINE BIT/0.9 % NACL 16 MG/250 ML ML - MAR Options provided: -- Sepsis, Please specify POA status (i.e., Y=Yes, N=No, W=Unable to clinically determine) and causative organism if known. -- Severe Sepsis, Please specify POA status (i.e., Y=Yes, N=No, W=Unable to clinically determine) and causative organism if known. -- Severe Sepsis with septic shock, Please specify POA status (i.e., Y=Yes, N=No, W=Unable to clinically determine) and causative organism if known. -- Localized infection, Please specify the infection and POA status (i.e., Y=Yes, N=No, W=Unable to clinically determine). -- Other - I will add my own diagnosis -- Dismiss - Not applicable / Not valid -- Dismiss - Clinically unable to determine / Unknown -- Assign to another provider QUERY RESPONSE: The patient has localized infection. Query created by: Andre Wilson on 10/05/2022 1:14 PM at 1828 PATIENT NAME: LESLEY BREAUX 15:46:00 [facility] Wound Care Progress Note REPORT#:[id number] REPORT STATUS: Signed DATE:10/01/22 TIME:154 PATIENT: LESLEY BREAUX UNIT #: [id number] ROOM/BED: [place] [address] : 36 AGE: 87 SEX: F ATTEND: Gissel Ortega MD Cardiology ADM AUTHOR: Karlo Francis MD * ALL edits or amendments must be made on the electronic/computer document * Subjective Chief complaint: Wound Care [...] 24 Hrs Patient Own Medication (PATIENT'S OWN MEDICATION) REXULTI 1MG [...] imported from the dietitian's assessment. BMI Calculated: 19.3 Nutrition related diagnosis: Severe malnutrition Nutrition diagnosis details: Nutrition problem: Severe malnutrition Nutrition etiology: Acute illness, Decreased/poor appetite, Diarrhea Nutrition signs and symptoms: Moderate muscle loss, Moderate subcutaneous fat loss, 20% or more weight loss, Less than 25% intake Nutrition prescription: 1) Continue regular diet, honor food [...] C. difficile diarrhea at 1547 RPT #: [id number] END OF REPORT [id number] 12:21:00 [facility]) Hospitalist Discharge Summary REPORT#:[id number] REPORT STATUS: Signed DATE:10/01/22 TIME:1221 PATIENT: LESLEY BREAUX UNIT #: [id number] ROOM/BED: [place] [address] : 36 AGE: 87 SEX: F ATTEND: Gissel Ortega MD Cardiology ADM AUTHOR: Art Tavera MD * ALL edits or amendments must be made on the electronic/computer document * General Information Discharge date: 10/01/22 Discharge diagnosis: Paroxysmal Afib, sick sinus syndrome, tachybrady syndrome s/p PPM placement s/p PPM placement by Cardiology Dr. Ortega 09/18/22 Complex moderate left pleural effusion / hemothorax, s/p R sided Cx tube in place with 600c of bloody fluid removed Status post removal of the chest tube Acute normocytic anemia, possibly due to acute blood loss with possible hemothorax Status post transfusion Hypotension with a history of hypertension COPD C. difficile colitis Hyponatremia Acute kidney injury Hospital course: 87 y/o female with PMHx of HTN, HLD, COPD, paroxysmal Afib, sick sinus syndrome, tachybrady syndome admitted for: Paroxysmal Afib, sick sinus syndrome, tachybrady syndrome s/p PPM placement s/p PPM placement by Cardiology Dr. Ortega 09/18/22 Continue to monitor under continuous welt rander PPM insertion site Pain control with Tylenol/Tramadol [...] to acute blood loss with possible hemothorax Status post transfusion [...] Patient has been psychosis , Possibly ICU related We will give Seroquel at night Hemoglobin [...] for SOB Start taking the following new medications: FIDAXOMICIN [...] supple/no meningismus Cardiovascular: normal heart sounds, regular rate rhythm Respiratory: decreased breath sounds, on oxygen, symmetric expansion, no distress, PPM site c/d/i, no overlying edema, erythema or warmth Abdomen: non-tender, soft Genitourinary: no bladder distention Extremities: moves all, no edema Musculoskeletal: no CVA tenderness Neuro/ADOBE ARCHITECT: alert, normal speech Skin: dry Psychiatry: normal affect, normal mood Discharge Instructions PCP Discharge to: Home Health lan of Care Additional Discharge Routines: PCP Follow-Up, Supervisor 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 License Officer Follow-Up Diet: Resume Home Diet/Feeds Discharge management: [...] up timeframe: In 1-2 weeks at 1459 [facility] #: [id number] END OF REPORT [id number] 11:55:00 [facility] ([facility]) Pulmonology Progress Note REPORT#:[id number] REPORT STATUS: Signed DATE:10/01/22 TIME:1155 PATIENT: LESLEY BREAUX UNIT #: [id number] ROOM/BED: [place] [address] : 36 AGE: 87 SEX: F ATTEND: Gissel Ortega MD Cardiology ADM AUTHOR: Mauro Arce MD * ALL edits or amendments must be made on the electronic/computer document * Subjective Chief complaint: No distress stable breathing on nasal cannula hemodynamically stable HPI: Pleasant 87-year-old lady who underwent pacemaker placement yesterday for tachybradycardia syndrome. She was having more shortness of breath and left-sided chest pain for which a CT angiogram of the chest was done, see full report. Images reviewed and discussed with patient and granddaughter. There is a small to moderate size left pleural effusion with different densities suggesting possible blood product. There are also chronic appearing reticular nodular, tree-in-bud type peripheral mostly lower zone infiltrates right more than left, no prior CT images to compare. The patient denies much in the way of chronic sputum fevers chills sweats or significant weight loss. The patient has emphysema has seen pulmonary doctors in the outpatient setting at [facility] but never smoked. Except described above, review of systems x14 is negative and normal. Review of Systems ROS Skin: Denies: itching, laceration. Allergy/Immun: Denies: anaphylaxis, hives. ENT: Denies: hearing loss, mouth pain. GI: Reports: abdominal pain, diarrhea. Denies: hematemesis, hematochezia. Neuro: Denies: lightheaded, numbness. Objective General VS/I O: Last Documented: Result Date Time Pulse Ox 93 10/01 745 B/P 115/68 10/01 745 B/P Mean 83.5 10/01 745 O2 Delivery Nasal cannula 10/01 745 Temp 36.7 10/01 745 Pulse 84 08/25 0746 Resp 20 08/25 0746 FiO2 21 10/01 0640 O2 Flow Rate 4 10/01 1999 24 hour I O ending at 0700: 10/01 0700 09/30 1900 Intake Total Output Total 1500 Balance -1500 Output, Urine 1500 PATIENT WEIGHT: Weight (lb): 99 Weight (oz): 3.33 Weight (kg): 44.906 Medications: Active Meds + DC'd Last 24 Hrs Patient Own Medication (PATIENT'S OWN MEDICATION) REXULTI 1MG [...] IV Physical Exam Head/eyes: atraumatic, normocephalic, normal conjunctiva/sclera ENT: ENT: moist mucosal membranes, normal pharynx Neck: non-tender, supple/no meningismus Cardiovascular: normal S1/S2, regular rate rhythm Respiratory/chest: decreased breath sounds, on oxygen, rales, bandage, sling Abdomen: soft, non-tender Extremities: edema, no clubbing, no cyanosis Musculoskeletal: normal inspection, no muscle spasm Neuro/ADOBE ARCHITECT: alert, oriented X 3, no motor deficits Skin: dry, intact Lymphatics: neck normal, no [...] (Auto) (20.5 - 51.1 %) 15.0 L Burke % (Auto) (1.7 - 9.3 %) 5.8 Eos % (Auto) (0.0 - 6.0 %) 7.9 H Baso % (Auto) (0.0 - 2.0 %) 0.8 Neut # (Auto) (1.8 - 7.6 K/mm3) 4.4 Lymph # (Auto) (0.6 - 3.2 K/mm3) 1.0 Burke # (Auto) (0.3 - 1.1 K/mm3) 0.4 [...] post pacemaker, tachybradycardia syndrome, history of atrial fibrillation 2. Left hemothorax that was drained 3. Recurrent C. difficile colitis 4. Emphysema 5. Hypertension 6. Lidocaine allergy cont midodrine TID Replace electrolytes She was noted to have C. difficile colitis Antibiotics for C Diff Probiotics Incentive spirometry Last chest x-ray stable ok to DC on home oxygen 2 /M Wound care for sacral wound at 1158 RPT #: [id number] END OF REPORT [id number] 10:32:00 [facility]) Hospitalist Progress Note REPORT#:[id number] REPORT STATUS: Signed DATE:10/01/22 TIME:1032 PATIENT: LESLEY BREAUX UNIT #: [id number] ROOM/BED: [place] [address] : 36 AGE: 87 SEX: F ATTEND: Gissel Ortega MD Cardiology ADM AUTHOR: Art Tavera MD * ALL edits or amendments must be made on the electronic/computer document * Subjective Chief complaint: Sleeping comfortably [...] 24 Hrs Patient Own Medication (PATIENT'S OWN MEDICATION) REXULTI 1MG [...] imported from the dietitian's assessment. BMI Calculated: 19.3 Nutrition related diagnosis: Severe malnutrition Nutrition diagnosis details: Nutrition problem: Severe malnutrition Nutrition etiology: Acute illness, Decreased/poor appetite, Diarrhea Nutrition signs and symptoms: Moderate muscle loss, Moderate subcutaneous fat loss, 20% or more weight loss, Less than 25% intake Nutrition prescription: 1) Continue regular diet, honor food preferences 2) Will d/c Ensure Clear - pt reports they are too sweet 3) Continue Bannatrol 4) Encourage oral intake of food/supplements Dietitian name: Sandi Leal RD,AKOSUA Assessment completed: 09/30/22 Physical Exam General appearance: alert, awake Head/Eyes: atraumatic, normocephalic ENT: dry mucosal membrane Neck: supple/no meningismus Cardiovascular: normal heart sounds, regular rate rhythm Respiratory: decreased breath sounds, on oxygen, symmetric expansion, no distress, PPM site c/d/i, no overlying edema, erythema or warmth Abdomen: non-tender, soft Genitourinary: no bladder distention Extremities: moves all, no edema Musculoskeletal: no CVA tenderness Neuro/ADOBE ARCHITECT: alert, normal speech Skin: dry Psychiatry: normal [...] (Auto) (20.5 - 51.1 %) 15.0 L Burke % (Auto) (1.7 - 9.3 %) 5.8 Eos % (Auto) (0.0 - 6.0 %) 7.9 H Baso % (Auto) (0.0 - 2.0 %) 0.8 Neut # (Auto) (1.8 - 7.6 K/mm3) 4.4 Lymph # (Auto) (0.6 - 3.2 K/mm3) 1.0 Burke # (Auto) (0.3 - 1.1 K/mm3) 0.4 [...] notes: 87 y/o female with PMHx of HTN, HLD, COPD, paroxysmal Afib, sick sinus syndrome, tachybrady syndome admitted for: Paroxysmal Afib, sick sinus syndrome, tachybrady syndrome s/p PPM placement s/p PPM placement by Cardiology Dr. Ortega 09/18/22 Continue to monitor under continuous welt rander PPM insertion site Pain control with Tylenol/Tramadol [...] to acute blood loss with possible hemothorax Status post transfusion [...] Patient has been psychosis , Possibly ICU related We will give Seroquel at night Hemoglobin monitored And is stable Awaiting placement Discussed with case management Patient and family wants to go home with home health Will DC home today at 1443 RPT #: [id number] END OF REPORT [id number] 09:55:00 [facility] ([facility]) Infectious Dis. Progress Note REPORT#:[id number] REPORT STATUS: Signed DATE:10/01/22 TIME:954 PATIENT: LESLEY BREAUX UNIT #: [id number] ROOM/BED: [place] [address] : 36 AGE: 87 SEX: F ATTEND: Gissel Ortega MD Cardiology ADM AUTHOR: Curtis Sun MD * ALL edits or amendments must be made on the electronic/computer document * Subjective Chief complaint: Recurrent C. diff. HPI: WBC remains normal. Pt is on fidamoxicin and IV metronidazole. Review of Systems Constitutional: Denies: fever. Objective Physical Exam General appearance: awake Head/Eyes: atraumatic, clear cornea, normal conjunctiva/sclera, normal eyelids/ periorb, normocephalic Neck: full range of motion, non-tender, supple/no meningismus Cardiovascular: regular rate rhythm Respiratory: symmetric expansion, no distress Abdomen: soft, no CVA tenderness, no distention, no guarding, no mass/ organomegaly, no rebound, Less tenderness Extremities: normal temperature, no cyanosis Neuro/ADOBE ARCHITECT: alert, normal speech Skin: normal turgor, no rash Diagnosis, Assessment Plan Free Text A P: Laboratory Tests 10/01/22 0452: [Embedded Image Not Available] Imaging: CXR reviewed 09/24 CTAP reviewed 09/20 Assessment: 1. Recurrent C. difficile colitis. Per family, pt responded better to fidaxomicin compared with vancomycin during previous episodes. 2. SIRS (fever, leukocytosis) likely due to above. 3. Left pleural effusion s/p chest tube removal. 4. 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 5. Allergy to penicillin (hives) and sulfas (passed out). Plan: 1. Fidaxomicin (day ). 2. IV metronidazole (day of ) added as WBC increased while on fidaxomicin. 3. Avoid systemic abxs if possible. 4. Monitor CBC. 5. Monitor kidney function. at 1149 RPT #: [id number] END OF REPORT [id number] 16:43:00 [facility] ([facility]) Wound Care Progress Note REPORT#:[id number] REPORT STATUS: Signed DATE:09/30/22 TIME:1642 PATIENT: LESLEY BREAUX UNIT #: [id number] ROOM/BED: [place] [address] : 36 AGE: 87 SEX: F ATTEND: Gissel Ortega MD Cardiology ADM AUTHOR: Karlo Francis MD * ALL edits or amendments must be made on the electronic/computer document * Subjective Chief complaint: Wound Care [...] 24 Hrs Patient Own Medication (PATIENT'S OWN MEDICATION) REXULTI 1MG [...] imported from the dietitian's assessment. BMI Calculated: 19.3 Nutrition related diagnosis: Severe malnutrition Nutrition diagnosis details: Nutrition problem: Severe malnutrition Nutrition etiology: Acute illness, Decreased/poor appetite, Diarrhea Nutrition signs and symptoms: Moderate muscle loss, Moderate subcutaneous fat loss, 20% or more weight loss, Less than 25% intake Nutrition prescription: 1) Continue regular diet, honor food [...] C. difficile diarrhea at 1644 RPT #: [id number] END OF REPORT [id number] 12:57:00 [facility] ([facility]) Infectious Dis. Progress Note REPORT#:[id number] REPORT STATUS: Signed DATE:09/30/22 TIME:1257 PATIENT: LESLEY BREAUX UNIT #: [id number] ROOM/BED: [place] [address] : 36 AGE: 87 SEX: F ATTEND: Gissel Ortega MD Cardiology ADM AUTHOR: Curtis Sun MD * ALL edits or amendments must be made on the electronic/computer document * Subjective Chief complaint: Recurrent C. [...] 36.5 82 16 147/70 95.4 95 09/29 2010 95 Nasal 3 cannula 09/29 1609 36.5 [...] appearance: awake Head/Eyes: atraumatic, clear cornea, EOMI, normal conjunctiva/sclera, normal eyelids/periorb, normocephalic Neck: full range of motion, non-tender, supple/no meningismus Cardiovascular: regular rate rhythm Respiratory: symmetric expansion, no distress Abdomen: soft, no CVA tenderness, no distention, no guarding, no mass/ organomegaly, no rebound, Less tenderness Genitourinary: no flank pain Extremities: normal temperature, no cyanosis Neuro/ADOBE ARCHITECT: alert, normal speech Skin: normal turgor, no rash Diagnosis, Assessment Plan Free Text A P: Laboratory Tests 09/30/22 0421: [Embedded Image Not Available] 09/29/22 0425: [Embedded Image Not Available] Imaging: CXR reviewed 09/24 CTAP reviewed 09/20 Assessment: 1. Recurrent C. difficile colitis. Per family, pt responded better to fidaxomicin compared with vancomycin during previous episodes. 2. SIRS (fever, leukocytosis) likely due to above. 3. Left pleural effusion s/p chest tube removal. 4. 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 5. Allergy to penicillin (hives) and sulfas (passed out). Plan: 1. Fidaxomicin (day 7 of 10). 2. IV metronidazole (day 5 of 7) added as WBC increased while on fidaxomicin. 3. Avoid systemic abxs if possible. 4. Monitor CBC. 5. Monitor kidney function. at 1259 RPT #: [id number] END OF REPORT [id number] 10:09:00 [facility]) Pulmonology Progress Note REPORT#:[id number] REPORT STATUS: Signed DATE:09/30/22 TIME:1009 PATIENT: LESLEY BREAUX UNIT #: [id number] ROOM/BED: [place] [address] : 36 AGE: 87 SEX: F ATTEND: Gissel Ortega MD Cardiology ADM AUTHOR: Mauro Arce MD * ALL edits or amendments must be made on the electronic/computer document * Subjective Chief complaint: mild abdominal pain No distress stable breathing on nasal cannula hemodynamically stable HPI: Pleasant 87-year-old lady who underwent pacemaker placement yesterday for tachybradycardia syndrome. She was having more shortness of breath and left-sided chest pain for which a CT angiogram of the chest was done, see full report. Images reviewed and discussed with patient and granddaughter. There is a small to moderate size left pleural effusion with different densities suggesting possible blood product. There are also chronic appearing reticular nodular, tree-in-bud type peripheral mostly lower zone infiltrates right more than left, no prior CT images to compare. The patient denies much in the way of chronic sputum fevers chills sweats or significant weight loss. The patient has emphysema has seen pulmonary doctors in the outpatient setting at [facility] but never smoked. Except described above, review of systems x14 is negative and normal. Review of Systems ROS Skin: Denies: itching, laceration. Allergy/Immun: Denies: anaphylaxis, hives. ENT: Denies: hearing loss, mouth pain. GI: Reports: abdominal pain, diarrhea. Denies: hematemesis, hematochezia. Neuro: Denies: numbness, seizure. Objective General VS/I O: Last Documented: Result Date Time Pulse Ox 98 08/24 0855 FiO2 32 09/30 854 O2 Delivery Nasal cannula 09/30 854 O2 Flow Rate 3 09/30 854 B/P 138/72 10/01 827 B/P Mean 93.9 10/01 827 Temp 37.3 10/01 827 Pulse 77 10/01 827 Resp 15 10/01 827 24 hour I [...] IV Physical Exam Head/eyes: atraumatic, normocephalic, normal conjunctiva/sclera ENT: ENT: moist mucosal membranes, normal pharynx Neck: non-tender, supple/no meningismus Cardiovascular: normal S1/S2, regular rate rhythm Respiratory/chest: decreased breath sounds, on oxygen, rales, bandage, sling Abdomen: soft, non-tender Extremities: edema, no clubbing, no cyanosis Musculoskeletal: normal inspection, no muscle spasm Neuro/ADOBE ARCHITECT: alert, oriented X 3, no motor deficits Skin: dry, intact Lymphatics: neck normal, no [...] (Auto) (20.5 - 51.1 %) 13.7 L Burke % (Auto) (1.7 - 9.3 %) 7.3 Eos % (Auto) (0.0 - 6.0 %) 5.6 Baso % (Auto) (0.0 - 2.0 %) 0.4 Neut # (Auto) (1.8 - 7.6 K/mm3) 5.2 Lymph # (Auto) (0.6 - 3.2 K/mm3) 1.0 Burke # (Auto) (0.3 - 1.1 K/mm3) 0.5 [...] post pacemaker, tachybradycardia syndrome, history of atrial fibrillation 2. Left hemothorax that was drained 3. Recurrent C. difficile colitis 4. Emphysema 5. Hypertension 6. Lidocaine allergy cont midodrine TID Replace electrolytes She was noted to have C. difficile colitis Antibiotics for C Diff Probiotics Incentive spirometry Last chest x-ray stable Taper oxygen Wound care for sacral wound at 1009 RPT #: [id number] END OF REPORT [id number] 10:03:00 [facility] ([facility]) Hospitalist Progress Note REPORT#:[id number] REPORT STATUS: Signed DATE:09/30/22 TIME:1003 PATIENT: LESLEY BREAUX UNIT #: [id number] ROOM/BED: [place] [address] : 36 AGE: 87 SEX: F ATTEND: Gissel Ortega MD Cardiology ADM AUTHOR: Art Tavera MD * ALL edits or amendments must be made on the electronic/computer document * Subjective Chief complaint: Sleeping comfortably Denies any abdominal pain Continues to have some diarrhea on and off Objective General VS/I O: Vital Signs: Date Time Temp Pulse Resp B/P B/P Pulse O2 O2 Flow FiO2 Mean Ox Delivery Rate 09/30 0855 98 Nasal 3 32 cannula 10/01 827 99.1 77 15 138/72 93.9 93 Room air 09/30 0540 97.6 79 16 147/60 89 98 Nasal 2 cannula 09/30 42 97.7 82 16 147/70 95.4 95 09/29 [...] imported from the dietitian's assessment. BMI Calculated: 19.3 Nutrition related diagnosis: Severe malnutrition Nutrition diagnosis details: Nutrition problem: Severe malnutrition Nutrition etiology: Acute illness, Decreased/poor appetite, Diarrhea Nutrition signs and symptoms: Moderate muscle loss, Moderate subcutaneous fat loss, 20% or more weight loss, Less than 25% intake Nutrition prescription: 1) Continue full liquid diet, advance as tolerated 2) Changed Ensure HP to Ensure clear per pt request. 3) Banatrol for diarrhea 4) Encourage oral intake of food/supplements Dietitian name: Marcia Kylie, DIET Assessment completed: 09/27/22 Physical Exam General appearance: sleeping comfortably Head/Eyes: atraumatic, normocephalic ENT: dry mucosal membrane Neck: supple/no meningismus Cardiovascular: normal heart sounds, regular rate rhythm Respiratory: decreased breath sounds, on oxygen, symmetric expansion, no distress, PPM site c/d/i, no overlying edema, erythema or warmth Abdomen: non-tender, soft Genitourinary: no bladder distention Extremities: moves all, no edema Musculoskeletal: no CVA tenderness Neuro/ADOBE ARCHITECT: alert, normal speech Skin: dry Psychiatry: normal affect, normal mood Results Findings/Data: Laboratory Tests 09/30/22 042: [Embedded Image Not Available] 09/29/22 0426: [Embedded Image Not Available] 09/29/22 042: [Embedded Image Not Available] Laboratory Tests 09/30 [...] (Auto) (20.5 - 51.1 %) 13.7 L Burke % (Auto) (1.7 - 9.3 %) 7.3 Eos % (Auto) (0.0 - 6.0 %) 5.6 Baso % (Auto) (0.0 - 2.0 %) 0.4 Neut # (Auto) (1.8 - 7.6 K/mm3) 5.2 Lymph # (Auto) (0.6 - 3.2 K/mm3) 1.0 Burke # (Auto) (0.3 - 1.1 K/mm3) 0.5 [...] notes: 87 y/o female with PMHx of HTN, HLD, COPD, paroxysmal Afib, sick sinus syndrome, tachybrady syndome admitted for: Paroxysmal Afib, sick sinus syndrome, tachybrady syndrome s/p PPM placement s/p PPM placement by Cardiology Dr. Ortega 09/18/22 Continue to monitor under continuous welt rander PPM insertion site Pain control with Tylenol/Tramadol [...] to acute blood loss with possible hemothorax Status post transfusion [...] Patient has been psychosis , Possibly ICU related We will give Seroquel at night Hemoglobin monitored And is stable Awaiting placement Discussed with case management at 1008 RPT #: [id number] END OF REPORT [id number] 22:39:00 [facility] ([facility]) Wound Care Progress Note REPORT#:[id number] REPORT STATUS: Signed DATE:09/29/22 TIME:2238 PATIENT: LESLEY BREAUX UNIT #: [id number] ROOM/BED: [place] [address] : 36 AGE: 87 SEX: F ATTEND: Gissel Ortega MD Cardiology ADM AUTHOR: Karlo Francis MD * ALL edits or amendments must be made on the electronic/computer document * Subjective Chief complaint: Wound Care HPI: no acute events Unable to obtain: medical condition Objective General VS: Last Documented: Result Date Time Pulse Ox 95 09/29 2010 O2 Delivery Nasal cannula 09/29 2010 O2 Flow Rate 3 09/29 2010 B/P 132/66 09/29 1608 B/P Mean 87.8 08/23 1609 Temp 97.7 09/29 1609 Pulse 83 09/29 1609 Resp 16 09/29 1609 FiO2 30 09/28 1909 PATIENT WEIGHT: Weight (lb): 99 Weight (oz): 3.33 Weight (kg): 44.906 Medications: Active Meds + DC'd Last 24 Hrs Quetiapine Fumarate (SEROqueL) 12.5 MG BEDTIME PO [...] imported from the dietitian's assessment. BMI Calculated: 19.3 Nutrition related diagnosis: Severe malnutrition Nutrition diagnosis details: Nutrition problem: Severe malnutrition Nutrition etiology: Acute illness, Decreased/poor appetite, Diarrhea Nutrition signs and symptoms: Moderate muscle loss, Moderate subcutaneous fat loss, 20% or more weight loss, Less than 25% intake Nutrition prescription: 1) Continue full liquid diet, [...] shift. 4. C. difficile diarrhea at 2241 RPT #: [id number] END OF REPORT [id number] 11:47:00 [facility] Pulmonology Progress Note REPORT#:[id number] REPORT STATUS: Signed DATE:09/29/22 TIME:1147 PATIENT: LESLEY BREAUX UNIT #: [id number] ROOM/BED: [place] [address] : 36 AGE: 87 SEX: F ATTEND: Gissel Ortega MD Cardiology ADM AUTHOR: Mauro Arce MD * ALL edits or amendments must be made on the electronic/computer document * Subjective Chief complaint: mild abdominal pain rectal tube hemodynamically stable HPI: Pleasant 87-year-old lady who underwent pacemaker placement yesterday for tachybradycardia syndrome. She was having more shortness of breath and left-sided chest pain for which a CT angiogram of the chest was done, see full report. Images reviewed and discussed with patient and granddaughter. There is a small to moderate size left pleural effusion with different densities suggesting possible blood product. There are also chronic appearing reticular nodular, tree-in-bud type peripheral mostly lower zone infiltrates right more than left, no prior CT images to compare. The patient denies much in the way of chronic sputum fevers chills sweats or significant weight loss. The patient has emphysema has seen pulmonary doctors in the outpatient setting at [facility] but never smoked. Except described above, review of systems x14 is negative and normal. Review of Systems ROS Skin: Denies: itching, laceration. Allergy/Immun: Denies: anaphylaxis, hives. ENT: Denies: hearing loss, mouth pain. GI: Reports: abdominal pain, diarrhea. Denies: hematemesis, hematochezia. Neuro: Denies: numbness, seizure. Objective General VS/I O: Last Documented: Result Date Time O2 Delivery Nasal cannula 09/29 08 O2 Flow Rate 2 09/29 08 Pulse Ox 95 09/29 0755 B/P 144/57 [...] IV Physical Exam Head/eyes: atraumatic, normocephalic, normal conjunctiva/sclera ENT: ENT: moist mucosal membranes, normal pharynx Neck: non-tender, supple/no meningismus Cardiovascular: normal S1/S2, regular rate rhythm Respiratory/chest: decreased breath sounds, on oxygen, rales, bandage, sling Abdomen: soft, non-tender Extremities: edema, no clubbing, no cyanosis Musculoskeletal: normal inspection, no muscle spasm Neuro/ADOBE ARCHITECT: alert, oriented X 3, no motor deficits Skin: dry, intact Lymphatics: neck normal, no [...] (Auto) (20.5 - 51.1 %) 11.6 L Burke % (Auto) (1.7 - 9.3 %) 6.9 Eos % (Auto) (0.0 - 6.0 %) 7.3 H Baso % (Auto) (0.0 - 2.0 %) 0.6 Neut # (Auto) (1.8 - 7.6 K/mm3) 5.1 Lymph # (Auto) (0.6 - 3.2 K/mm3) 0.8 Burke # (Auto) (0.3 - 1.1 K/mm3) 0.5 [...] post pacemaker, tachybradycardia syndrome, history of atrial fibrillation 2. Left hemothorax that was drained 3. Recurrent C. difficile colitis 4. Emphysema 5. Hypertension 6. Lidocaine allergy cont midodrine TID PT OT She was noted to have C. difficile colitis Antibiotics for C Diff Probiotics Wound care for sacral wound Incentive spirometer Oxygen by nasal cannula at 1149 RPT #: [id number] END OF REPORT [id number] 10:22:00 [facility] ([facility]) Infectious Dis. Progress Note REPORT#:[id number] REPORT STATUS: Signed DATE:09/29/22 TIME:102 PATIENT: LESLEY BREAUX UNIT #: [id number] ROOM/BED: [place] [address] : 36 AGE: 87 SEX: F ATTEND: Gissel Ortega MD Cardiology ADM AUTHOR: Curtis Sun MD * ALL edits or amendments must be made on the electronic/computer document * Subjective Chief complaint: Recurrent C. diff. HPI: Leukocytosis resolved. Pt is on fidamoxicin and IV metronidazole. Diarrhea and abdominal pain resolving. Review of Systems Constitutional: Denies: fever. Objective Physical Exam Head/Eyes: atraumatic, clear cornea, EOMI, normal conjunctiva/sclera, normal eyelids/periorb, normocephalic Neck: full range of motion, non-tender, supple/no meningismus Cardiovascular: regular rate rhythm Respiratory: symmetric expansion, no distress Abdomen: normal bowel sounds, soft, no CVA tenderness, no distention, no guarding, no mass/organomegaly, no rebound, Less tenderness Extremities: normal temperature, no cyanosis Neuro/ADOBE ARCHITECT: alert, normal speech Skin: normal turgor, no rash Diagnosis, Assessment Plan Free Text A P: Laboratory Tests 09/28/22 0221: [Embedded Image Not Available] 09/28/22 0220: [Embedded Image Not Available] Imaging: CXR reviewed 09/24 CTAP reviewed 09/20 Assessment: 1. Recurrent C. difficile colitis. Per family, pt responded better to fidaxomicin compared with vancomycin during previous episodes. 2. SIRS (fever, leukocytosis) likely due to above. 3. Left pleural effusion s/p chest tube removal. 4. 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 5. Allergy to penicillin (hives) and sulfas (passed out). Plan: 1. Fidaxomicin (day 6 of 10). 2. IV metronidazole (day 4) added as WBC increased while on fidaxomicin. 3. Avoid systemic abxs if possible. 4. Monitor CBC. 5. Monitor kidney function. at 1316 RPT #: [id number] END OF REPORT [id number] 10:19:00 [facility] ([facility]) Hospitalist Progress Note REPORT#:[id number] REPORT STATUS: Signed DATE:09/29/22 TIME:1019 PATIENT: LESLEY BREAUX UNIT #: [id number] ROOM/BED: [address] : 36 AGE: 87 SEX: F ATTEND: Gissel Ortega MD Cardiology ADM AUTHOR: Art Tavera MD * ALL edits or amendments must be made on the electronic/computer document * Subjective Chief complaint: Still has [...] imported from the dietitian's assessment. BMI Calculated: 19.3 Nutrition related diagnosis: Severe malnutrition Nutrition diagnosis details: Nutrition problem: Severe malnutrition Nutrition etiology: Acute illness, Decreased/poor appetite, Diarrhea Nutrition signs and symptoms: Moderate muscle loss, Moderate subcutaneous fat loss, 20% or more weight loss, Less than 25% intake Nutrition prescription: 1) Continue full liquid diet, advance as tolerated 2) Changed Ensure HP to Ensure clear per pt request. 3) Banatrol for diarrhea 4) Encourage oral intake of food/supplements Dietitian name: Marcia Espinal, DIET Assessment completed: 09/27/22 Physical Exam General appearance: alert, awake Head/Eyes: atraumatic, normocephalic ENT: dry mucosal membrane Neck: supple/no meningismus Cardiovascular: normal heart sounds, regular rate rhythm Respiratory: decreased breath sounds, on oxygen, symmetric expansion, no distress, PPM site c/d/i, no overlying edema, erythema or warmth Abdomen: non-tender, soft Genitourinary: no bladder distention Extremities: moves all, no edema Musculoskeletal: no CVA tenderness Neuro/ADOBE ARCHITECT: alert, normal speech Skin: dry Psychiatry: normal affect, normal mood Results Findings/Data: Laboratory Tests 09/29/22 0426: [Embedded Image Not Available] 09/29/22 0425: [Embedded [...] (Auto) (20.5 - 51.1 %) 11.6 L Burke % (Auto) (1.7 - 9.3 %) 6.9 Eos % (Auto) (0.0 - 6.0 %) 7.3 H Baso % (Auto) (0.0 - 2.0 %) 0.6 Neut # (Auto) (1.8 - 7.6 K/mm3) 5.1 Lymph # (Auto) (0.6 - 3.2 K/mm3) 0.8 Burke # (Auto) (0.3 - 1.1 K/mm3) 0.5 [...] notes: 87 y/o female with PMHx of HTN, HLD, COPD, paroxysmal Afib, sick sinus syndrome, tachybrady syndome admitted for: Paroxysmal Afib, sick sinus syndrome, tachybrady syndrome s/p PPM placement s/p PPM placement by Cardiology Dr. Ortega 09/18/22 Continue to monitor under continuous welt rander PPM insertion site Pain control with Tylenol/Tramadol [...] to acute blood loss with possible hemothorax Status post transfusion [...] case management Discussed with ID and pulmonology at 1101 RPT #: [id number] END OF REPORT [id number] 19:19:00 [facility]) Wound Care Progress Note REPORT#:[id number] REPORT STATUS: Signed DATE:09/28/22 TIME:1918 PATIENT: LESLEY BREAUX UNIT #: [id number] ROOM/BED: [place] [address] : 36 AGE: 87 SEX: F ATTEND: Gissel Ortega MD Cardiology ADM AUTHOR: Karlo Francis MD * ALL edits or amendments must be made on the electronic/computer document * Subjective Chief complaint: Wound Care HPI: downgraded to medsurg Patient reports: Yes: able to communicate, feeling better, pain controlled. No: drainage from wound. Objective General VS: [...] imported from the dietitian's assessment. BMI Calculated: 19.3 Nutrition related diagnosis: Severe malnutrition Nutrition diagnosis details: Nutrition problem: Severe malnutrition Nutrition etiology: Acute illness, Decreased/poor appetite, Diarrhea Nutrition signs and symptoms: Moderate muscle loss, Moderate subcutaneous fat loss, 20% or more weight loss, Less than 25% intake Nutrition prescription: 1) Continue full liquid diet, [...] C. difficile diarrhea at 1929 RPT #: [id number] END OF REPORT [id number] 11:35:00 [facility] ([facility]) Infectious Dis. Progress Note REPORT#:[id number] REPORT STATUS: Signed DATE:09/28/22 TIME:1134 PATIENT: LESLEY BREAUX UNIT #: [id number] ROOM/BED: [place] [address] : 36 AGE: 87 SEX: F ATTEND: Gissel Ortega MD Cardiology ADM AUTHOR: Curtis Sun MD * ALL edits or amendments must be made on the electronic/computer document * Subjective Chief complaint: Recurrent C. diff. HPI: Leukocytosis resolved. Pt is on fidamoxicin and IV [...] 09/28 0800 77 14 121/58 84 95 08/22 0745 36.6 79 14 125/63 87 94 08/22 0730 [...] 2045 70 14 117/58 83 98 08/21 2029 64 14 108/54 78 98 08/21 2014 [...] 08/21 1330 69 9 103/51 73 99 09/27 1315 68 13 96/48 69 98 09/27 1300 65 13 94/49 69 99 09/27 1245 67 15 115/55 79 98 09/27 1230 65 15 108/53 76 99 09/27 1215 64 14 109/47 68 100 09/27 1200 68 17 112/51 74 100 09/27 1145 68 15 137/62 89 99 24 [...] alert, awake Head/Eyes: atraumatic, clear cornea, EOMI, normal conjunctiva/sclera, normal eyelids/periorb, normocephalic Neck: full range of motion, non-tender, supple/no meningismus Cardiovascular: regular rate rhythm Respiratory: symmetric expansion, no distress Abdomen: normal bowel sounds, soft, no CVA tenderness, no distention, no guarding, no mass/organomegaly, no rebound, Less tenderness Extremities: normal temperature, no cyanosis Neuro/ADOBE ARCHITECT: alert, normal speech Skin: normal turgor, no rash Diagnosis, Assessment Plan Free Text A P: Laboratory Tests 09/28/22 0221: [Embedded Image Not Available] 09/28/22 022: [Embedded Image Not Available] Imaging: CXR reviewed 09/24 CTAP reviewed 09/20 Assessment: 1. Recurrent C. difficile colitis. Per family, pt responded better to fidaxomicin compared with vancomycin during previous episodes. 2. SIRS (fever, leukocytosis) likely due to above. 3. Left pleural effusion s/p chest tube removal. 4. 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 5. Allergy to penicillin (hives) and sulfas (passed out). Plan: 1. Fidaxomicin (day 5 of 10). 2. IV metronidazole (day 3) as WBC increased while on fidaxomicin. 3. Avoid systemic abxs if possible. 4. Monitor CBC. 5. Monitor kidney function. 6. Case discussed with hospitalist. at 1319 RPT #: [id number] END OF REPORT [id number] 11:19:00 [facility] ([facility]) Hospitalist Progress Note REPORT#:[id number] REPORT STATUS: Signed DATE:09/28/22 TIME:1119 PATIENT: LESLEY BREAUX UNIT #: [id number] ROOM/BED: [place] [address] : 36 AGE: 87 SEX: F ATTEND: Gissel Ortega MD Cardiology ADM AUTHOR: Art Tavera MD * ALL edits or amendments must be made on the electronic/computer document * Subjective Chief complaint: Had some [...] 09/28 1030 74 17 109/53 76 99 08/22 1015 74 18 113/56 80 98 08/22 [...] 08/22 0045 74 10 101/52 72 97 09/28 0030 75 12 104/54 76 97 09/28 [...] imported from the dietitian's assessment. BMI Calculated: 19.3 Nutrition related diagnosis: Severe malnutrition Nutrition diagnosis details: Nutrition problem: Severe malnutrition Nutrition etiology: Acute illness, Decreased/poor appetite, Diarrhea Nutrition signs and symptoms: Moderate muscle loss, Moderate subcutaneous fat loss, 20% or more weight loss, Less than 25% intake Nutrition prescription: 1) Continue full liquid diet, advance as tolerated 2) Changed Ensure HP to Ensure clear per pt request. 3) Banatrol for diarrhea 4) Encourage oral intake of food/supplements Dietitian name: Marcia Espinal, DIET Assessment completed: 09/27/22 Physical Exam General appearance: alert, awake Head/Eyes: atraumatic, normocephalic ENT: dry mucosal membrane Neck: supple/no meningismus Cardiovascular: normal heart sounds, regular rate rhythm Respiratory: decreased breath sounds, on oxygen, symmetric expansion, no distress, PPM site c/d/i, no overlying edema, erythema or warmth Abdomen: non-tender, soft Genitourinary: no bladder distention Extremities: moves all, no edema Musculoskeletal: no CVA tenderness Neuro/ADOBE ARCHITECT: alert, normal speech Skin: dry Psychiatry: normal affect, normal mood Results Findings/Data: Laboratory Tests 09/28/22 022: [Embedded Image Not Available] 09/28/22 022: [Embedded Image Not Available] 09/27/22 021: [Embedded Image Not Available] Laboratory Tests 09/29 [...] (Auto) (20.5 - 51.1 %) 9.0 L Burke % (Auto) (1.7 - 9.3 %) 7.6 Eos % (Auto) (0.0 - 6.0 %) 7.2 H Baso % (Auto) (0.0 - 2.0 %) 0.6 Neut # (Auto) (1.8 - 7.6 K/mm3) 6.5 Lymph # (Auto) (0.6 - 3.2 K/mm3) 0.8 Burke # (Auto) (0.3 - 1.1 K/mm3) 0.7 [...] notes: 87 y/o female with PMHx of HTN, HLD, COPD, paroxysmal Afib, sick sinus syndrome, tachybrady syndome admitted for: Paroxysmal Afib, sick sinus syndrome, tachybrady syndrome s/p PPM placement s/p PPM placement by Cardiology Dr. Ortega 09/18/22 Continue to monitor under continuous welt rander PPM insertion site Pain control with Tylenol/Tramadol [...] to acute blood loss with possible hemothorax Status post transfusion [...] case management Discussed with ID and pulmonology at 2147 RPT #: [id number] END OF REPORT [id number] 09:12:00 [facility] ([facility]) Pulmonology Progress Note REPORT#:[id number] REPORT STATUS: Signed DATE:09/28/22 TIME:911 PATIENT: LESLEY BRAEUX UNIT #: [id number] ROOM/BED: [facility] : 36 AGE: 87 SEX: F ATTEND: Gissel Ortega MD Cardiology ADM AUTHOR: Mauro Arce MD * ALL edits or amendments must be made on the electronic/computer document * Subjective Chief complaint: LESS abdominal pain and diarrhea off pressors stioll hemodynamically stable HPI: Pleasant 87-year-old lady who underwent pacemaker placement yesterday for tachybradycardia syndrome. She was having more shortness of breath and left-sided chest pain for which a CT angiogram of the chest was done, see full report. Images reviewed and discussed with patient and granddaughter. There is a small to moderate size left pleural effusion with different densities suggesting possible blood product. There are also chronic appearing reticular nodular, tree-in-bud type peripheral mostly lower zone infiltrates right more than left, no prior CT images to compare. The patient denies much in the way of chronic sputum fevers chills sweats or significant weight loss. The patient has emphysema has seen pulmonary doctors in the outpatient setting at [facility] but never smoked. Except described above, review of systems x14 is negative and normal. Review of Systems ROS Allergy/Immun: Denies: anaphylaxis, hives. ENT: Denies: hearing loss, mouth pain. GI: Reports: abdominal pain, diarrhea. Denies: hematemesis, hematochezia. Neuro: Denies: numbness, seizure. Objective General VS/I O: Last Documented: Result Date Time O2 Delivery Nasal cannula 09/28 826 O2 Flow Rate 2 09/28 0827 Pulse Ox 94 09/28 0745 B/P 125/63 [...] Last 24 Hrs Calcium Gluconate/Sodium Chloride (Calcium Gluconate 1GM/100ML) 100 [...] imported from the dietitian's assessment. BMI Calculated: 19.3 Nutrition related diagnosis: Severe malnutrition Nutrition diagnosis details: Nutrition problem: Severe malnutrition Nutrition etiology: Acute illness, Decreased/poor appetite, Diarrhea Nutrition signs and symptoms: Moderate muscle loss, Moderate subcutaneous fat loss, 20% or more weight loss, Less than 25% intake Nutrition prescription: 1) Continue full liquid diet, advance as tolerated 2) Changed Ensure HP to Ensure clear per pt request. 3) Banatrol for diarrhea 4) Encourage oral intake of food/supplements Dietitian name: Marcia Espinal, DIET Assessment completed: 09/27/22 Physical Exam Head/eyes: atraumatic, normocephalic, normal conjunctiva/sclera ENT: ENT: moist mucosal membranes, normal pharynx Neck: non-tender, supple/no meningismus Cardiovascular: normal S1/S2, regular rate rhythm Respiratory/chest: decreased breath sounds, on oxygen, rales, bandage, sling Abdomen: soft, non-tender Extremities: edema, no clubbing, no cyanosis Musculoskeletal: normal inspection, no muscle spasm Neuro/ADOBE ARCHITECT: alert, oriented X 3, no motor deficits Skin: dry, intact Lymphatics: neck normal, no lymphadenopathy Results Findings/Data: Laboratory Tests 09/28/22 0221: [Embedded Image Not Available] 09/28/22 219: [Embedded Image Not Available] Laboratory Tests 09/29 [...] (Auto) (20.5 - 51.1 %) 9.0 L Burke % (Auto) (1.7 - 9.3 %) 7.6 Eos % (Auto) (0.0 - 6.0 %) 7.2 H Baso % (Auto) (0.0 - 2.0 %) 0.6 Neut # (Auto) (1.8 - 7.6 K/mm3) 6.5 Lymph # (Auto) (0.6 - 3.2 K/mm3) 0.8 Burke # (Auto) (0.3 - 1.1 K/mm3) 0.7 [...] post pacemaker, tachybradycardia syndrome, history of atrial fibrillation 2. Left hemothorax that was drained 3. Recurrent C. difficile colitis 4. Emphysema 5. Hypertension 6. Lidocaine allergy Discussion s/p Volume resusitation cont midodrine TID PT OT She was noted to have C. difficile colitis Antibiotics Deficit Wound care for wond DG to tele Discussed with her daughter and discussed with the nursing staff. at 1147 RPT #: [id number] END OF REPORT [id number] 15:23:00 [facility] ([facility]) Wound Care Progress Note REPORT#:[id number] REPORT STATUS: Signed DATE:09/27/22 TIME:1523 PATIENT: LESLEY BREAUX UNIT #: [id number] [address] : [address] AGE: 87 SEX: F ATTEND: Gissel Ortega MD Cardiology ADM AUTHOR: Karlo Francis MD * ALL edits or amendments must be made on the electronic/computer document * Subjective Chief complaint: Wound Care [...] imported from the dietitian's assessment. BMI Calculated: 19.4 [...] C. difficile diarrhea at 1526 RPT #: [id number] END OF REPORT [id number] 13:02:00 [facility] ([facility]) Infectious Dis. Progress Note REPORT#:[id number] REPORT STATUS: Signed DATE:09/27/22 TIME:1302 PATIENT: LESLEY BREAUX UNIT #: [id number] [address]: [address] : 36 AGE: 87 SEX: F ATTEND: Gissel Ortega MD Cardiology ADM AUTHOR: Curtis Sun MD * ALL edits or amendments must be made on the electronic/computer document * Subjective Chief complaint: Recurrent C. [...] 09/27 1045 68 16 154/66 95 100 / 1030 75 14 116/55 79 100 / 1015 74 14 123/56 80 99 08/ 1000 78 17 134/61 88 100 08/ 0958 81 19 142/63 90 100 08/ 0947 74 20 149/64 92 97 / 0945 72 19 128/60 86 100 08/ 0930 67 14 114/57 82 100 08/ 0928 70 13 131/61 88 100 08/ 0915 66 14 125/61 88 100 08/21 [...] alert, awake Head/Eyes: atraumatic, clear cornea, EOMI, normal conjunctiva/sclera, normal eyelids/periorb, normocephalic Neck: full range of motion, non-tender, supple/no meningismus Cardiovascular: regular rate rhythm Respiratory: symmetric expansion, no distress Abdomen: tenderness, normal bowel sounds, soft, no CVA tenderness, no distention , no guarding, no mass/organomegaly, no rebound Extremities: normal temperature, no cyanosis Neuro/ADOBE ARCHITECT: alert, normal speech Skin: normal turgor, no rash Diagnosis, Assessment Plan Free Text A P: Laboratory Tests 09/27/22 0211: [Embedded Image Not Available] 09/26/22 0626: [Embedded Image Not Available] Imaging: CXR reviewed 09/24 CTAP reviewed 09/20 Assessment: 1. Recurrent C. difficile colitis. Per family, pt responded better to fidaxomicin compared with vancomycin during previous episodes. 2. SIRS (fever, leukocytosis) likely due to above. 3. Left pleural effusion s/p chest tube removal. 4. 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 5. Allergy to penicillin (hives) and sulfas (passed out). Plan: 1. Fidaxomicin (day 4 of 10). 2. IV metronidazole (day 2) as WBC increased while on fidaxomicin. 3. Avoid systemic abxs if possible. 4. Monitor CBC. 5. Monitor kidney function. 6. Case discussed with hospitalist. 7. Plan discussed with daughter RICARDO. at 1438 RPT #: [id number] END OF REPORT [id number] 12:58:00 [facility] ([facility]) Hospitalist Progress Note REPORT#:[id number] REPORT STATUS: Signed DATE:09/27/22 TIME:1258 PATIENT: LESLEY BREAUX UNIT #: [id number] ROOM/BED: ICU02-1 : 36 AGE: 87 SEX: F ATTEND: Gissel Ortega MD Cardiology ADM AUTHOR: Art Tavera MD * ALL edits or amendments must be made on the electronic/computer document * Subjective Chief complaint: Still on [...] 09/27 1245 67 15 115/55 79 98 08/ 1230 65 15 108/53 76 99 / 1215 64 14 109/47 68 100 / 1200 68 17 112/51 74 100 / 1145 68 15 137/62 89 99 / 1130 63 14 131/60 86 99 / 1115 Nasal 2 cannula 09/27 1115 64 14 116/54 78 99 / 1100 97.4 / 1100 63 15 141/60 87 100 / 1045 68 16 154/66 95 100 / 1030 75 14 116/55 79 100 08/ 1015 74 14 123/56 80 99 08/21 1000 78 17 134/61 88 100 08/21 0958 81 19 142/63 90 100 08/21 0947 74 20 149/64 92 97 08/21 0945 72 19 128/60 86 100 08/21 0930 67 14 114/57 82 100 08/21 0928 70 13 131/61 88 100 08/21 [...] imported from the dietitian's assessment. BMI Calculated: 19.4 Nutrition related diagnosis: Nutrition diagnosis details: Nutrition problem: Nutrition etiology: Nutrition signs and symptoms: Nutrition prescription: Dietitian name: Assessment completed: Physical Exam General appearance: chronically ill appearing, alert, awake Head/Eyes: atraumatic, normocephalic ENT: dry mucosal membrane Neck: supple/no meningismus Cardiovascular: normal heart sounds, regular rate rhythm Respiratory: decreased breath sounds, on oxygen, symmetric expansion, no distress, PPM site c/d/i, no overlying edema, erythema or warmth Abdomen: non-tender, soft Genitourinary: no bladder distention Extremities: moves all, no edema Musculoskeletal: no CVA tenderness Neuro/ADOBE ARCHITECT: alert, normal speech Skin: dry Psychiatry: normal affect, normal mood Results Findings/Data: Laboratory Tests 09/27/22210: [Embedded Image Not Available] 09/26/22 0626: [Embedded Image Not Available] 09/25/222051: [...] (Auto) (20.5 - 51.1 %) 6.7 L Burke % (Auto) (1.7 - 9.3 %) 8.0 Eos % (Auto) (0.0 - 6.0 %) 5.2 Baso % (Auto) (0.0 - 2.0 %) 0.3 Neut # (Auto) (1.8 - 7.6 K/mm3) 11.5 H Lymph # (Auto) (0.6 - 3.2 K/mm3) 1.0 Burke # (Auto) (0.3 - 1.1 K/mm3) 1.2 [...] notes: 87 y/o female with PMHx of HTN, HLD, COPD, paroxysmal Afib, sick sinus syndrome, tachybrady syndome admitted for: Paroxysmal Afib, sick sinus syndrome, tachybrady syndrome s/p PPM placement s/p PPM placement by Cardiology Dr. Ortega 09/18/22 Continue to monitor under continuous welt rander PPM insertion site Pain control with Tylenol/Tramadol [...] to acute blood loss with possible hemothorax Status post transfusion [...] was 33 minutes at 1446 RPT #: [id number] END OF REPORT [id number] 10:28:00 [facility] ([facility]) Pulmonology Progress Note REPORT#:[id number] REPORT STATUS: Signed DATE:09/27/22 TIME:1028 PATIENT: LESLEY BREAUX UNIT #: [id number] ROOM/BED: [place] [address] : 36 AGE: 87 SEX: F ATTEND: Gissel Ortega MD Cardiology ADM AUTHOR: Mauro Arce MD * ALL edits or amendments must be made on the electronic/computer document * Subjective Chief complaint: LESS abdominal pain and diarrhea Improved Left-sided chest pain, no shortness of breath on pressors stioll hemodynamically unstable HPI: Pleasant 87-year-old lady who underwent pacemaker placement yesterday for tachybradycardia syndrome. She was having more shortness of breath and left-sided chest pain for which a CT angiogram of the chest was done, see full report. Images reviewed and discussed with patient and granddaughter. There is a small to moderate size left pleural effusion with different densities suggesting possible blood product. There are also chronic appearing reticular nodular, tree-in-bud type peripheral mostly lower zone infiltrates right more than left, no prior CT images to compare. The patient denies much in the way of chronic sputum fevers chills sweats or significant weight loss. The patient has emphysema has seen pulmonary doctors in the outpatient setting at [facility] but never smoked. Except described above, review of systems x14 is negative and normal. Review of Systems ROS Allergy/Immun: Denies: anaphylaxis, hives. ENT: Denies: hearing loss, mouth pain. GI: Reports: abdominal pain, diarrhea. Denies: hematemesis, hematochezia. Neuro: Denies: numbness, seizure. Objective General VS/I O: Last Documented: Result Date Time Pulse Ox 97 09/27 0900 B/P 84/46 09/27 0900 B/P Mean 61 09/27 09 Pulse 76 09/27 0900 Resp 13 09/27 09 FiO2 28 09/27 0741 O2 Delivery Nasal cannula 09/27 740 O2 Flow Rate 2 09/27 0741 Temp [...] IV Physical Exam Head/eyes: atraumatic, normocephalic, normal conjunctiva/sclera ENT: ENT: moist mucosal membranes, normal pharynx Neck: non-tender, supple/no meningismus Cardiovascular: normal S1/S2, regular rate rhythm Respiratory/chest: decreased breath sounds, on oxygen, rales, bandage, sling Abdomen: soft, non-tender Extremities: edema, no clubbing, no cyanosis Musculoskeletal: normal inspection, no muscle spasm Neuro/ADOBE ARCHITECT: alert, oriented X 3, no motor deficits Skin: dry, intact Lymphatics: neck normal, no lymphadenopathy Results Findings/Data: Laboratory Tests 09/27/22210: [Embedded Image [...] (Auto) (20.5 - 51.1 %) 6.7 L Burke % (Auto) (1.7 - 9.3 %) 8.0 Eos % (Auto) (0.0 - 6.0 %) 5.2 Baso % (Auto) (0.0 - 2.0 %) 0.3 Neut # (Auto) (1.8 - 7.6 K/mm3) 11.5 H Lymph # (Auto) (0.6 - 3.2 K/mm3) 1.0 Burke # (Auto) (0.3 - 1.1 K/mm3) 1.2 [...] post pacemaker, tachybradycardia syndrome, history of atrial fibrillation 2. Left hemothorax [...] diarrhea and she has a rectal tube now. Antibiotics for stated Wound care We will consult gastroenterology in addition to infectious diseases while addressing her C. difficile. Consider adding IV Flagyl. Discussed with her daughter and discussed with the nursing staff. Continue close ICU monitoring Once more stable will downgrade Critical care time 32 minutes at 1031 [facility] #: [id number] END OF REPORT [id number] 06:34:00 [facility] ([facility]) GE Consultation Note REPORT#:[id number] REPORT STATUS: Signed DATE:09/27/22 TIME:633 PATIENT: LESLEY BREAUX UNIT #: [id number] ROOM/BED: [place] [address] : 36 AGE: 87 SEX: F ATTEND: Gissel Ortega MD Cardiology ADM AUTHOR: Lonnie Turpin MD * ALL edits or amendments must be made on the electronic/computer document * History of Present Illness Requesting clinician: Giorgi Chavarria MD Reason for consult: recurrent C diff Chief complaint: i'm tired HPI: 87 y/o female with PMHx of HTN, HLD, COPD, paroxysmal Afib, sick sinus syndrome, tachybrady syndome admitted for: Paroxysmal Afib, sick sinus syndrome, tachybrady syndrome s/p PPM placement s/p PPM placement by Cardiology Dr. Ortega 09/18/22 Continue to monitor under continuous welt rander PPM insertion site Pain control with Tylenol/Tramadol [...] to acute blood loss with possible hemothorax Status post transfusion [...] 13 years old or older: Never Smoker Allergies: Coded Allergies: fentanyl (Severe, COMA 09/16/22) Penicillins (Intermediate, HIVES 09/16/22) Sulfa (Sulfonamide Antibiotics) (Intermediate, MAKES HER PASS OUT 09/16/22) codeine (Intermediate, VOMITING 09/16/22) hydrocodone (Intermediate, VOMITING 09/16/22) meperidine (From DEMEROL) (Intermediate, THROW UP 09/16/22) morphine (Mild, HIVES 09/16/22) lidocaine (RASH-UNKNOWN [...] no lymphadenopathy Cardiovascular: normal heart sounds, normal S1/S2 Respiratory: symmetric expansion, no distress Abdomen: soft, no distention Extremities: no clubbing, no cyanosis Musculoskeletal: normal inspection Neuro/ADOBE ARCHITECT: alert, oriented X 3 Skin: no ecchymosis, no rash Psychiatry: normal affect, normal judgment/insight Results Findings/Data: Laboratory Tests 09/27/22210: [Embedded Image [...] (Auto) (20.5 - 51.1 %) 6.7 L Burke % (Auto) (1.7 - 9.3 %) 8.0 Eos % (Auto) (0.0 - 6.0 %) 5.2 Baso % (Auto) (0.0 - 2.0 %) 0.3 Neut # (Auto) (1.8 - 7.6 K/mm3) 11.5 H Lymph # (Auto) (0.6 - 3.2 K/mm3) 1.0 Burke # (Auto) (0.3 - 1.1 K/mm3) 1.2 [...] Notes: 87 y/o female with PMHx of HTN, HLD, COPD, paroxysmal Afib, sick sinus syndrome, tachybrady syndome admitted for: Paroxysmal Afib, sick sinus syndrome, tachybrady syndrome s/p PPM placement s/p PPM placement by Cardiology Dr. Ortega 09/18/22 Continue to monitor under continuous welt rander PPM insertion site Pain control with Tylenol/Tramadol [...] to acute blood loss with possible hemothorax Status post transfusion [...] with assessment and treatment by ID, supportive care. No role for colonoscopy at this time at 0637 [facility] #: [id number] END OF REPORT [id number] 11:03:00 [facility] ([facility]) Infectious Dis. Progress Note REPORT#:[id number] REPORT STATUS: Signed DATE:09/26/22 TIME:110 PATIENT: LESLEY BREAUX UNIT #: [id number] [address] : [address] AGE: 87 SEX: F ATTEND: Gissel Ortega MD Cardiology ADM AUTHOR: Curtis Sun MD * ALL edits or amendments must be made on the electronic/computer document * Subjective Chief complaint: Recurrent C. diff. HPI: WBC increased and BP dropped. No fever overnight. Pt transferred to ICU. Review of Systems Unable to obtain due to: Poor historian Objective Physical Exam General appearance: chronically ill appearing Head/Eyes: atraumatic, clear cornea, EOMI, normal conjunctiva/sclera, normal eyelids/periorb, normocephalic Neck: full range of motion, non-tender, supple/no meningismus Cardiovascular: regular rate rhythm Respiratory: symmetric expansion, no distress Abdomen: tenderness, normal bowel sounds, soft, no CVA tenderness, no distention , no guarding, no mass/organomegaly, no rebound Genitourinary: no flank pain Extremities: normal temperature, no cyanosis Neuro/ADOBE ARCHITECT: alert, normal speech Skin: normal turgor, no rash Diagnosis, Assessment Plan Free Text A P: Laboratory Tests 09/26/22 0626: [Embedded Image Not Available] 09/25/222051: [Embedded Image Not Available] 09/24/22 1229: [Embedded Image Not Available] Imaging: CXR reviewed 09/24 CTAP reviewed 09/20 Assessment: 1. Recurrent C. difficile colitis. 2. SIRS (fever, leukocytosis) likely due to above. 3. Left pleural effusion s/p chest tube removal. 4. 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 5. Allergy to penicillin (hives) and sulfas (passed out). Plan: 1. Fidaxomicin (day 3 of 10). 2. Add ICV metronidazole as WBC increased. 3. Avoid systemic abxs if possible. 4. KUB. 5. Monitor CBC. 6. Monitor kidney function. 7. Case discussed with ICU. 8. Case discussed with hospitalist. 9. Plan discussed with daughter RICARDO. at 1106 RPT #: [id number] END OF REPORT [id number] 10:07:00 [facility] ([facility]) Pulmonology Progress Note REPORT#:[id number] REPORT STATUS: Signed DATE:09/26/22 TIME:1007 PATIENT: LESLEY BREAUX UNIT #: [id number] ROOM/BED: [place] [address] : 36 AGE: 87 SEX: F ATTEND: Gissel Ortega MD Cardiology ADM AUTHOR: Giorgi Chavarria MD * ALL edits or amendments must be made on the electronic/computer document * Subjective HPI: Pleasant 87-year-old lady who underwent pacemaker placement yesterday for tachybradycardia syndrome. She was having more shortness of breath and left-sided chest pain for which a CT angiogram of the chest was done, see full report. Images reviewed and discussed with patient and granddaughter. There is a small to moderate size left pleural effusion with different densities suggesting possible blood product. There are also chronic appearing reticular nodular, tree-in-bud type peripheral mostly lower zone infiltrates right more than left, no prior CT images to compare. The patient denies much in the way of chronic sputum fevers chills sweats or significant weight loss. The patient has emphysema has seen pulmonary doctors in the outpatient setting at [facility] but never smoked. Except described above, review of systems x14 is negative and normal. Review of Systems ROS Allergy/Immun: Denies: anaphylaxis, hives. ENT: Denies: hearing loss, mouth pain. GI: Reports: abdominal pain, diarrhea. Denies: hematemesis, hematochezia. Neuro: Denies: numbness, seizure. Objective General VS/I O: Last Documented: Result Date Time Pulse Ox 97 09/26 08 B/P 97/54 09/26 08 B/P Mean 73 09/26 08 Pulse 80 09/26 0815 Resp 17 09/26 0815 Temp 36.1 09/26 0700 FiO2 28 09/26 0644 O2 Delivery Nasal cannula 09/26 06 O2 Flow Rate 2 09/26 0644 24 hour I O ending at 0700: 09/26 0700 09/25 1900 Intake Total 1483.80 Output Total 375 Balance 1108.80 Intake, IV 1483.80 Output, Urine 375 PATIENT WEIGHT: Weight (lb): 99 Weight (oz): 3.33 Weight (kg): 45.000 Medications: Active Meds + DC'd Last 24 Hrs Lactated Ringer's (LACTATED RINGERS) 500 ML BOLUS [...] General appearance: confused Head/eyes: atraumatic, normocephalic, normal conjunctiva/sclera ENT: ENT: moist mucosal membranes, normal pharynx Neck: non-tender, supple/no meningismus Cardiovascular: normal S1/S2, regular rate rhythm Respiratory/chest: decreased breath sounds, on oxygen, rales, bandage, sling Abdomen: soft, non-tender Extremities: edema, no clubbing, no cyanosis Musculoskeletal: normal inspection, no muscle spasm Neuro/ADOBE ARCHITECT: alert, oriented X 3, no motor deficits Skin: dry, intact Lymphatics: neck normal, no [...] 2.3 1.7 L Laboratory Tests 09/26 09/25 0651 2052 Hematology WBC (3.5 - 11.0 K/mm3) [...] - 51.1 %) 5.3 L 5.4 L Burke % (Auto) (1.7 - 9.3 %) 8.8 8.4 Eos % (Auto) (0.0 - 6.0 %) 3.0 1.6 Baso % (Auto) (0.0 - 2.0 %) 0.3 0.5 Neut # (Auto) (1.8 - 7.6 K/mm3) 16.9 H 16.1 H Lymph # (Auto) (0.6 - 3.2 K/mm3) 1.1 1.1 Burke # (Auto) (0.3 - 1.1 K/mm3) 1.9 [...] interval change in faint left basilar atelectasis or pneumonia. Impression By: [email or web address] - Siobhan Friend M.D. RADIOLOGY - XR CHEST 1 V 09/26 0530 Report Impression - Status: SIGNED Entered: 09/26/2022 0627 IMPRESSION: 1. Interval placement of a right upper extremity PICC with tip located in mid SVC. No pneumothorax. 2. Unchanged mild left basilar opacities, which may reflect atelectasis or pneumonia. Impression By: [email or web address] Jessika Ford M.D. RADIOLOGY - XR ABDOMEN 1 V 09/26 0927 Report Impression - Status: SIGNED Entered: 09/26/2022 1000 IMPRESSION: Nonobstructive bowel gas pattern. Impression By: [email or web address] - Abhinav Fajardo M.D. 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 Emphysema 5. Hypertension 6. Lidocaine allergy Discussion The patient was moved to ICU yesterday evening because her blood pressure remained in the 80s. She received 1 L of fluid and she is on lactated Ringer at this time. She has an acceptable urine output about 200 cc since this morning. She is requiring Levophed at low-dose. I will give her 1 more small bolus. I reviewed her history from pacemaker insertion followed by drainage of left hemothorax. She was noted to have C. difficile colitis during this hospital stay and her daughter thinks it is related to the antibiotic given for prophylaxis. She had C. difficile initially about 15 years ago then about a year ago and then in August. She continues to have diarrhea and she has a rectal tube now. Her abdomen is tender only to palpation mostly in the left lower quadrant. She had been on full liquid diet. Her white blood cell count is up to 21,000. CT scan of the abdomen few days ago was negative. I just had her do a KUB that did not show dilated bowel. We will consult gastroenterology in addition to infectious diseases while addressing her C. difficile. Consider adding IV Flagyl. Consider repeat CT scan of the abdomen. Discussed with her daughter and discussed with the nursing staff. Critical care time 32 minutes at 1014 RPT #: [id number] END OF REPORT [id number] 08:41:00 [facility] ([facility]) Wound Care Consultation Note REPORT#:[id number] REPORT STATUS: Signed DATE:09/26/22 TIME:08 PATIENT: LESLEY BREAUX UNIT #: [id number] RO[address] : [address] AGE: 87 SEX: F ATTEND: Gissel Ortega MD Cardiology ADM AUTHOR: Karlo Francis MD * ALL edits or amendments must be made on the electronic/computer document * History of Present Illness Requesting [...] (Intermediate, HIVES 09/16/22) Sulfa (Sulfonamide Antibiotics) (Intermediate, MAKES HER PASS OUT 09/16/22) codeine (Intermediate, VOMITING 09/16/22) hydrocodone (Intermediate, VOMITING 09/16/22) meperidine (From DEMEROL) (Intermediate, THROW UP 09/16/22) morphine (Mild, HIVES 09/16/22) lidocaine (RASH-UNKNOWN 09/19/22) Unable to Obtain History Unable to obtain due to: medical condition Review of Systems Unable to obtain due to: medical condition Objective VS/I O: Last Documented: Result Date Time Pulse Ox 97 09/27 0715 B/P 97/54 08/20 0815 B/P Mean 73 09/26 0815 Pulse 80 09/26 0815 Resp 17 09/26 0815 Temp 97.0 09/26 0700 FiO2 28 09/26 0644 O2 Delivery Nasal cannula 09/26 06 O2 Flow Rate 2 09/26 0644 24 [...] shift. 4. C. difficile diarrhea at 1021 [facility] #: [id number] END OF REPORT [id number] 08:40:00 [facility] ([facility]) Hospitalist Progress Note REPORT#:[id number] REPORT STATUS: Signed DATE:09/26/22 TIME:08 PATIENT: LESLEY BREAUX UNIT #: [id number] ROOM/BED: [facility] : 36 AGE: 87 SEX: F ATTEND: Gissel Ortega MD Cardiology ADM AUTHOR: Art Tavera MD * ALL edits or amendments must be made on the electronic/computer document * Subjective Chief complaint: Patient was [...] 08/19 2101 87 19 102/53 74 98 09/25 2048 88 24 109/43 62 98 09/25 2044 78 18 92/51 67 95 09/25 2029 87 20 85/43 61 96 09/25 2014 76 20 88/44 63 95 09/26 1999 97.3 09/26 1999 Nasal 2 cannula 09/26 1999 86 16 88/44 63 96 09/255 82 18 96/46 66 95 09/25 1930 84 21 86/45 61 95 09/25 1914 78 22 76/38 54 95 09/25 1912 87 20 72/36 48 94 09/25 191 83 20 66/35 45 94 09/25 191 73 20 84/40 58 94 09/25 1900 [...] imported from the dietitian's assessment. BMI Calculated: 19.4 Nutrition related diagnosis: Nutrition diagnosis details: Nutrition problem: Nutrition etiology: Nutrition signs and symptoms: Nutrition prescription: Dietitian name: Assessment completed: Physical Exam General appearance: lethargic, alert, awake Head/Eyes: atraumatic, normocephalic ENT: dry mucosal membrane Neck: supple/no meningismus Cardiovascular: normal heart sounds, regular rate rhythm Respiratory: decreased breath sounds, on oxygen, symmetric expansion, no distress, PPM site c/d/i, no overlying edema, erythema or warmth Abdomen: non-tender, soft Genitourinary: no bladder distention Extremities: moves all, no edema Musculoskeletal: no CVA tenderness Neuro/ADOBE ARCHITECT: alert, normal speech Skin: dry Psychiatry: normal [...] - 51.1 %) 5.3 L 5.4 L Burke % (Auto) (1.7 - 9.3 %) 8.8 8.4 Eos % (Auto) (0.0 - 6.0 %) 3.0 1.6 Baso % (Auto) (0.0 - 2.0 %) 0.3 0.5 Neut # (Auto) (1.8 - 7.6 K/mm3) 16.9 H 16.1 H Lymph # (Auto) (0.6 - 3.2 K/mm3) 1.1 1.1 Burke # (Auto) (0.3 - 1.1 K/mm3) 1.9 [...] 1155 Report Impression - Status: SIGNED Entered: 09/26/202239 IMPRESSION: No significant interval change in faint left basilar atelectasis or pneumonia. Impression By: Denny Friend M.D. RADIOLOGY - XR CHEST 1 V 09/26 1397 Report Impression - Status: SIGNED Entered: 09/26/2022 0627 IMPRESSION: 1. Interval placement of a right upper extremity PICC with tip located in mid SVC. No pneumothorax. 2. Unchanged mild left basilar opacities, which may reflect atelectasis or pneumonia. Impression By: [email or web address] Jessika Ford M.D. Diagnosis, Assessment Plan Free Text DxA P Notes Free text DxA P notes: 87 y/o female with PMHx of HTN, HLD, COPD, paroxysmal Afib, sick sinus syndrome, tachybrady syndome admitted for: Paroxysmal Afib, sick sinus syndrome, tachybrady syndrome s/p PPM placement s/p PPM placement by Cardiology Dr. Ortega 09/18/22 Continue to monitor under continuous welt rander PPM insertion site Pain control with Tylenol/Tramadol [...] to acute blood loss with possible hemothorax Status post transfusion [...] was 38 minutes at 0848 RPT #: [id number] END OF REPORT [id number] 19:35:00 [facility] ([facility]) Clinical Note REPORT#:[id number] REPORT STATUS: Signed DATE:09/25/22 TIME:1934 PATIENT: LESLEY BREAUX UNIT #: [id number] ROOM/BED: [place] [address] : 36 AGE: 87 SEX: F ATTEND: Gissel Ortega MD Cardiology ADM AUTHOR: Eliu Duarte * ALL edits or amendments must be made on the electronic/computer document * Clinical Note Note: (NOT a rapid response case) Nursing reporting patient's [...] upgrade if not responding well. Target SBP 90- 100mmHg. Hold all bp medications. May give diuretics if BP stabilized. Discussed with nursing staff and family at bedside. at 1950 at 2128 [facility] #: [id number] END OF REPORT [id number] 11:05:00 [facility] ([facility]) Hospitalist Progress Note REPORT#:[id number] REPORT STATUS: Signed DATE:09/25/22 TIME:110 PATIENT: LESLEY BREAUX UNIT #: [id number] ROOM/BED: [place] [address] : 36 AGE: 87 SEX: F ATTEND: Gissel Ortega MD Cardiology ADM AUTHOR: Art Tavera MD * ALL edits or amendments must be made on the electronic/computer document * Subjective Chief complaint: No acute events Feeling slightly better HPI: pt appears weak and frail today, c/o intermittent dizziness telemetry reviewed, pt has short intermittent pauses with HR as low as 31, cardiology notified labs reviewed, Hgb trending down to 8.1 from 12.2 09/18/22 will upgrade to IMCU for closer [...] hour I O ending at 0700: 09/26 0709/25 1900 Intake Total 1483.80 Output Total 375 [...] imported from the dietitian's assessment. BMI Calculated: 19.4 Nutrition related diagnosis: Nutrition diagnosis details: Nutrition problem: Nutrition etiology: Nutrition signs and symptoms: Nutrition prescription: Dietitian name: Assessment completed: Physical Exam General appearance: chronically ill appearing, alert, awake Head/Eyes: atraumatic, normocephalic ENT: poor dentition, moist mucosal membranes Cardiovascular: normal heart sounds, regular rate rhythm Respiratory: decreased breath sounds, on oxygen, symmetric expansion, no distress, PPM site c/d/i, no overlying edema, erythema or warmth Abdomen: non-tender, soft Extremities: moves all, no edema Neuro/ADOBE ARCHITECT: alert, normal speech Psychiatry: normal affect, normal mood Results Findings/Data: Laboratory Tests 09/25/222051: [Embedded Image Not Available] Radiology data: Recent Impressions: RADIOLOGY - XR CHEST 1 V 09/25 1155 Report Impression - Status: SIGNED Entered: 09/26/2022 0040 IMPRESSION: No significant interval change in faint left basilar atelectasis or pneumonia. Impression By: Denny - Siobhan Friend M.D. Diagnosis, Assessment Plan Free Text DxA P Notes Free text DxA P notes: 87 y/o female with PMHx of HTN, HLD, COPD, paroxysmal Afib, sick sinus syndrome, tachybrady syndome admitted for: Paroxysmal Afib, sick sinus syndrome, tachybrady syndrome s/p PPM placement s/p PPM placement by Cardiology Dr. Ortega 09/18/22 Continue to monitor under continuous welt rander PPM insertion site Pain control with Tylenol/Tramadol [...] to acute blood loss with possible hemothorax Status post transfusion [...] care time used was 32minutes at 0850 [facility] #: [id number] END OF REPORT [id number] 14:06:00 [facility] ([facility]) Infect Disease Consult Note REPORT#:[id number] REPORT STATUS: Signed DATE:09/24/22 TIME:1406 PATIENT: LESLEY BREAUX UNIT #: [id number] ROOM/BED: [place] [address] : 36 AGE: 87 SEX: F ATTEND: Gissel Ortega MD Cardiology ADM AUTHOR: Curtis Sun MD * ALL edits or amendments must be made on the electronic/computer document * See Addendum History of Present [...] 13 years old or older: Never Smoker Allergies: Coded Allergies: fentanyl (Severe, COMA 09/16/22) Penicillins (Intermediate, HIVES 09/16/22) Sulfa (Sulfonamide Antibiotics) (Intermediate, MAKES HER PASS OUT 09/16/22) codeine (Intermediate, VOMITING 09/16/22) hydrocodone (Intermediate, VOMITING 09/16/22) meperidine (From DEMEROL) (Intermediate, THROW UP 09/16/22) morphine (Mild, HIVES 09/16/22) lidocaine (RASH-UNKNOWN 09/19/22) Review of Systems Unable to obtain due to: Poor historian. Objective General VS/I O: Vital Signs Date Temp Pulse Resp B/P B/P Mean Pulse Ox FiO2 09/23-09/24 36.8-39.3 70-87 15-49 102-155/51-67 73-97 92-99 28 Last Documented: Result Date Time Temp 37.6 08 1321 Pulse Ox 92 08/ 0803 FiO2 28 / 0803 O2 Delivery Nasal cannula 09/24 0803 O2 Flow Rate 2 09/24 0803 B/P 115/53 08/ 0645 B/P Mean 77 / 0645 Pulse 71 08/ 0645 Resp 18 08/ 0645 Vital Signs: Date Time Temp Pulse Resp B/P B/P Pulse O2 O2 Flow FiO2 Mean Ox Delivery Rate 09/24 1321 37.6 08/ 0814 36.8 08/ 0803 92 Nasal 2 28 cannula 08 0645 71 18 115/53 77 95 08/18 0630 70 15 118/55 79 96 08/ 0615 72 17 128/60 87 96 08/18 0600 72 17 116/57 82 96 08/18 0448 37.0 09/24 0230 73 19 107/53 76 95 08/18 [...] 08/17 2215 74 20 121/59 85 95 / 2200 76 21 126/61 88 96 08/17 2145 75 20 125/60 86 98 /17 2130 75 19 133/59 85 99 /17 2115 74 26 123/59 85 98 /17 2100 75 20 116/55 79 95 08/1999 37.1 081999 Nasal 2 cannula 09/23 1953 37.5 08/ 1922 95 Nasal 2 cannula 09/23 1900 38.0 08 1900 83 31 132/59 85 94 / 1856 83 08/ 1845 84 21 120/57 82 94 08/ 1830 83 18 121/57 82 95 / 1800 87 33 153/67 97 97 09/23 [...] Physical Exam General appearance: chronically ill appearing, frail, awake, no respiratory distress Head/Eyes: atraumatic, clear cornea, EOMI, normal conjunctiva/sclera, normal eyelids/periorb, normocephalic ENT: moist mucosal membranes, normal nose Neck: full range of motion, non-tender, supple/no meningismus Cardiovascular: regular rate rhythm Respiratory: symmetric expansion, no distress Abdomen: non-tender, normal bowel sounds, soft, no CVA tenderness, no distention , no guarding, no mass/organomegaly Genitourinary: no flank pain Extremities: normal temperature, no cyanosis Neuro/ADOBE ARCHITECT: alert, normal speech Skin: normal turgor, no rash Psychiatry: normal affect, normal mood Diagnosis, Assessment Plan Free Text DxA P Notes Free text DxA P notes: Laboratory Tests 09/24/22 1229: [Embedded Image Not Available] 09/23/22 0333: [Embedded Image Not Available] Imaging: CXR reviewed 09/24 CTAP reviewed 09/20 Assessment: 1. Recurrent C. difficile colitis. 2. SIRS (fever, leukocytosis) likely due to above. 3. Left pleural effusion s/p chest tube removal. 4. 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 5. Allergy to penicillin (hives) and sulfas (passed out). Plan: 1. Fidaxomicin (day 1 of 10). 2. Avoid systemic abxs if possible. 3. Monitor CBC. 4. Monitor kidney function. 5. Pulmonary following. 6. Contact isolation. 7. Case discussed with hospitalist. Thank you for this consult. at 1543 Addendum 1: 09/25/22 1146 by Curtis Sun MD Pt reports having C. diff in the past. at 1146 RPT #: [id number] END OF REPORT [id number] 12:15:00 [facility] ([facility] Pulmonology Progress Note REPORT#:[id number] REPORT STATUS: Signed DATE:09/24/22 TIME:1215 PATIENT: LESLEY BREAUX UNIT #: [id number] ROOM/BED: [place] [address] : 36 AGE: 87 SEX: F ATTEND: Gissel Ortega MD Cardiology ADM AUTHOR: Mauro Arce MD * ALL edits or amendments must be made on the electronic/computer document * Subjective Chief complaint: abdominal pain and diarrhea Improved Left-sided chest pain, no shortness of breath HPI: Pleasant 87-year-old lady who underwent pacemaker placement yesterday for tachybradycardia syndrome. She was having more shortness of breath and left-sided chest pain for which a CT angiogram of the chest was done, see full report. Images reviewed and discussed with patient and granddaughter. There is a small to moderate size left pleural effusion with different densities suggesting possible blood product. There are also chronic appearing reticular nodular, tree-in-bud type peripheral mostly lower zone infiltrates right more than left, no prior CT images to compare. The patient denies much in the way of chronic sputum fevers chills sweats or significant weight loss. The patient has emphysema has seen pulmonary doctors in the outpatient setting at [facility] but never smoked. Except described above, review of systems x14 is negative and normal. Review of Systems ROS Allergy/Immun: Denies: anaphylaxis, hives. ENT: Denies: hearing loss, mouth pain. GI: Reports: abdominal pain, diarrhea. Denies: hematemesis, hematochezia. Neuro: Denies: numbness, seizure. Objective General VS/I O: Last Documented: Result Date Time Temp 36.8 09/24 0814 Pulse Ox 92 09/24 08 FiO2 28 09/24 08 O2 Delivery Nasal cannula 09/24 802 O2 Flow Rate 2 09/24 0803 B/P [...] IV Physical Exam Head/eyes: atraumatic, normocephalic, normal conjunctiva/sclera ENT: ENT: moist mucosal membranes, normal pharynx Neck: non-tender, supple/no meningismus Cardiovascular: normal S1/S2, regular rate rhythm Respiratory/chest: decreased breath sounds, on oxygen, rales, bandage, sling Abdomen: soft, non-tender Extremities: edema, no clubbing, no cyanosis Musculoskeletal: normal inspection, no muscle spasm Neuro/ADOBE ARCHITECT: alert, oriented X 3, no motor deficits Skin: dry, intact Lymphatics: neck normal, no lymphadenopathy Results Findings/Data: Laboratory Tests 09/24 Chemistry POC Glucose (70 - 110 mg/dL) 112 H 144 H Radiology data: Recent Impressions: RADIOLOGY - XR CHEST 1 V 09/23 172 Report Impression - Status: SIGNED Entered: 09/23/2022 1747 IMPRESSION: Interval removal of the left-sided pigtail catheter. No pneumothorax. Impression By: [email or web address] Jessika Padilla MD RADIOLOGY - XR CHEST 1 V 09/25 823 Report Impression - Status: SIGNED Entered: 09/24/2022 0922 IMPRESSION: Minimal patchy opacity left lung base. This could be due to atelectasis or pneumonia. There is a tiny left pleural effusion. Compared to the prior exam, there has been no significant change. Impression By: Skyler Chapman M.D. Diagnosis, Assessment Plan Free Text A P: Impression 1. Left pleural effusion apparently new blood layering densities, unclear etiology 2. Chronic appearing lung parenchymal changes, recommend outpatient follow-up Evaluation, she can follow-up with her pulmonary doctor that has she has recently seen in the office 3. Status post pacemaker, tachybradycardia syndrome, history of atrial fibrillation 4. Emphysema 5. Hypertension 6. Lidocaine allergy Discussion The patient is allergic to lidocaine, states that [...] therapeutic thoracentesis tomorrow. She will need closer monitoring. 2. Send pleural fluid for analysis 3. Follow-up imaging 4. Patient advised to follow-up with her pulmonary doctor in the outpatient setting in regards to the abnormal CT chest that seen her as far as the lung parenchymal changes 09/20 Reviewed her imaging studies evidence of moderate effusion with possible left lower lobe atelectasis Both do not explain the drop in hemoglobin 4 g We will order CT abdomen and pelvis PPI IV Chest PT using a flutter device and Mucomyst twice daily Thoracentesis by IR ordered Incentive spirometry IV antibiotics Follow-up imaging studies of the chest 09/21 Patient has severe pain with continuing to have dropping hemoglobin I did an ultrasound showed evidence of effusion I placed chest tube Bloody fluid was noted I drained [address] under suction for the next 24 hours If stable in a.m. we will remove [...] Diarrhea On treatments sp blood tranusion stable HH follow up CXR improving Follow up IO stable pulmonary status at 1221 RPT #: [id number] END OF REPORT [id number] 10:33:00 [facility] ([facility]) Hospitalist Progress Note REPORT#:[id number] REPORT STATUS: Signed DATE:09/24/22 TIME:1033 PATIENT: LESLEY BREAUX UNIT #: [id number] ROOM/BED: [place] [address] : 36 AGE: 87 SEX: F ATTEND: Gissel Ortega MD Cardiology ADM AUTHOR: Art Tavera MD * ALL edits or amendments must be made on the electronic/computer document * Subjective Chief complaint: dressing in place, no nausea, no vomiting, no fever HPI: pt appears weak and frail today, c/o intermittent dizziness telemetry reviewed, pt has short intermittent pauses with HR as low as 31, cardiology notified labs reviewed, Hgb trending down to 8.1 from 12.2 09/18/22 will upgrade to IMCU for closer [...] imported from the dietitian's assessment. BMI Calculated: 19.4 Nutrition related diagnosis: Nutrition diagnosis details: Nutrition problem: Nutrition etiology: Nutrition signs and symptoms: Nutrition prescription: Dietitian name: Assessment completed: Physical Exam General appearance: frail, alert, awake Head/Eyes: atraumatic, normocephalic ENT: poor dentition, moist mucosal membranes Cardiovascular: normal heart sounds, regular rate rhythm Respiratory: decreased breath sounds, on oxygen, symmetric expansion, no distress, PPM site c/d/i, no overlying edema, erythema or warmth Abdomen: non-tender, soft Extremities: moves all, no edema Neuro/ADOBE ARCHITECT: alert, normal speech Psychiatry: normal affect, normal mood Results Findings/Data: Laboratory Tests 09/24/22 1229: [Embedded Image Not Available] Diagnosis, Assessment Plan Free Text DxA P Notes Free text DxA P notes: 87 y/o female with PMHx of HTN, HLD, COPD, paroxysmal Afib, sick sinus syndrome, tachybrady syndome admitted for: #Paroxysmal Afib, sick sinus syndrome, tachybrady syndrome s/p PPM placement s/p PPM placement by Cardiology Dr. Ortega 09/18/22 Continue to monitor under continuous welt rander PPM insertion site Pain control with Tylenol/Tramadol [...] called and left msg for daughter Taylor [phone] Clamping chest tube appreciate help from pulmonology discussed about the findings C. difficile still pending As the patient continues to have diarrhea History of C. difficile previously treated with vancomycin and Flagyl and fidaxomicin We will start on fidaxomicin empirically Total critical care time used was 38 minutes at 0858 RPT #: [id number] END OF REPORT [id number] 11:59:00 [facility]) Pulmonology Progress Note REPORT#:[id number] REPORT STATUS: Signed DATE:09/23/22 TIME:1159 PATIENT: LESLEY BREAUX UNIT #: [id number] ROOM/BED: [facility] : 36 AGE: 87 SEX: F ATTEND: Gissel Ortega MD Cardiology ADM AUTHOR: Mauro Arce MD * ALL edits or amendments must be made on the electronic/computer document * Subjective Chief complaint: improvinmg Left-sided chest pain, no shortness of breath HPI: Pleasant 87-year-old lady who underwent pacemaker placement yesterday for tachybradycardia syndrome. She was having more shortness of breath and left-sided chest pain for which a CT angiogram of the chest was done, see full report. Images reviewed and discussed with patient and granddaughter. There is a small to moderate size left pleural effusion with different densities suggesting possible blood product. There are also chronic appearing reticular nodular, tree-in-bud type peripheral mostly lower zone infiltrates right more than left, no prior CT images to compare. The patient denies much in the way of chronic sputum fevers chills sweats or significant weight loss. The patient has emphysema has seen pulmonary doctors in the outpatient setting at [facility] but never smoked. Except described above, review [...] IV Physical Exam Head/eyes: atraumatic, normocephalic, normal conjunctiva/sclera ENT: ENT: moist mucosal membranes, normal pharynx Neck: non-tender, supple/no meningismus Cardiovascular: normal S1/S2, regular rate rhythm Respiratory/chest: decreased breath sounds, on oxygen, rales, bandage, sling Abdomen: soft, non-tender Extremities: edema, no clubbing, no cyanosis Musculoskeletal: normal inspection, no muscle spasm Neuro/ADOBE ARCHITECT: alert, oriented X 3, no motor deficits Skin: dry, intact Lymphatics: neck normal, no lymphadenopathy Results Findings/Data: Laboratory Tests 09/23/22332: [Embedded Image Not Available] Laboratory Tests 09/23 1959 Chemistry Sodium (134 - 147 mmol/L) 135 [...] - 10.1 MG/DL) 8.6 Laboratory Tests 09/23 0333 Hematology WBC (3.5 - 11.0 K/mm3) [...] (Auto) (20.5 - 51.1 %) 7.1 L Burke % (Auto) (1.7 - 9.3 %) 6.9 Eos % (Auto) (0.0 - 6.0 %) 3.6 Baso % (Auto) (0.0 - 2.0 %) 0.2 Neut # (Auto) (1.8 - 7.6 K/mm3) 10.4 H Lymph # (Auto) (0.6 - 3.2 K/mm3) 0.9 Burke # (Auto) (0.3 - 1.1 K/mm3) 0.9 [...] effusion apparently new blood layering densities, unclear etiology 2. Chronic appearing lung parenchymal changes, recommend outpatient follow-up Evaluation, she can follow-up with her pulmonary doctor that has she has recently seen in the office 3. Status post pacemaker, tachybradycardia syndrome, history of atrial fibrillation 4. Emphysema 5. Hypertension 6. Lidocaine allergy Discussion The patient is allergic to lidocaine, states that [...] therapeutic thoracentesis tomorrow. She will need closer monitoring. 2. Send pleural fluid for analysis 3. Follow-up imaging 4. Patient advised to follow-up with her pulmonary doctor in the outpatient setting in regards to the abnormal CT chest that seen her as far as the lung parenchymal changes 09/20 Reviewed her imaging studies evidence of moderate effusion with possible left lower lobe atelectasis Both do not explain the drop in hemoglobin 4 g We will order CT abdomen and pelvis PPI IV Chest PT using a flutter device and Mucomyst twice daily Thoracentesis by IR ordered Incentive spirometry IV antibiotics Follow-up imaging studies of the chest 09/21 Patient has severe pain with continuing to have dropping hemoglobin I did an ultrasound showed evidence of effusion I placed chest tube Bloody fluid was noted I drained [address] under suction for the next 24 hours If stable in a.m. we will remove [...] OK for DC from pulmonary stand point at 1201 RPT #: [id number] END OF REPORT [id number] 11:31:00 [facility] ([facility]) Hospitalist Progress Note REPORT#:[id number] REPORT STATUS: Signed DATE:09/23/22 TIME:1131 PATIENT: LESLEY BREAUX UNIT #: [id number] ROOM/BED: [place] [address] : 36 AGE: 87 SEX: F ATTEND: Gissel Ortega MD Cardiology ADM AUTHOR: Art Tavera MD * ALL edits or amendments must be made on the electronic/computer document * Subjective Chief complaint: c/p R sided chest pain, better, dressing in place, no nausea, no vomiting, no fever HPI: pt appears weak and frail today, c/o intermittent dizziness telemetry reviewed, pt has short intermittent pauses with HR as low as 31, cardiology notified labs reviewed, Hgb trending down to 8.1 from 12.2 09/18/22 will upgrade to IMCU for closer [...] mucosal membranes Cardiovascular: normal heart sounds, regular rate rhythm Respiratory: decreased breath sounds, on oxygen, symmetric expansion, no distress, PPM site c/d/i, no overlying edema, erythema or warmth Abdomen: non-tender, soft Extremities: moves all, no edema Neuro/ADOBE ARCHITECT: alert, normal speech Psychiatry: normal affect, normal mood Diagnosis, Assessment Plan Free Text DxA P Notes Free text DxA P notes: 87 y/o female with PMHx of HTN, HLD, COPD, paroxysmal Afib, sick sinus syndrome, tachybrady syndome admitted for: #Paroxysmal Afib, sick sinus syndrome, tachybrady syndrome s/p PPM placement s/p PPM placement by Cardiology Dr. Ortega 09/18/22 Continue to monitor under continuous welt rander PPM insertion site Pain control with Tylenol/Tramadol [...] called and left msg for daughter Taylor [phone] at 0858 RPT #: [id number] END OF REPORT [id number] 14:04:00 [facility] ([facility]) [facility] Hospitalist Progress Note REPORT#:[id number] REPORT STATUS: Signed DATE:09/22/22 TIME:1404 PATIENT: LESLEY BREAUX UNIT #: [id number] ROOM/BED: [place] [id number] : 36 AGE: 87 SEX: F ATTEND: Gissel Ortega MD Cardiology ADM AUTHOR: Tejinder Toribio MD * ALL edits or amendments must be made on the electronic/computer document * Subjective Chief complaint: c/p R sided chest pain, better, dressing in place, no nausea, no vomiting, no fever HPI: pt appears weak and frail today, c/o intermittent dizziness telemetry reviewed, pt has short intermittent pauses with HR as low as 31, cardiology notified labs reviewed, Hgb trending down to 8.1 from 12.2 09/18/22 will upgrade to IMCU for closer monitoring Objective General VS/I O: Vital Signs: Date Time Temp Pulse Resp B/P B/P Pulse O2 O2 Flow FiO2 Mean Ox Delivery Rate 09/22 1204 99.0 09/22 0900 Nasal 2 cannula 09/22 0824 98.2 09/22 0727 100 Nasal 2 28 cannula 09/22 0630 78 57 109/52 75 100 08/16 [...] 42 108/52 75 100 08/15 2350 97.6 /15 2323 Nasal 2 cannula 09/21 2300 78 55 94/48 69 100 08/15 2219 79 20 90/51 64 98 08/ 2130 82 14 95/46 66 97 / 2100 82 13 104/51 73 99 / 2030 83 12 106/50 72 99 / 2000 84 16 118/56 81 100 / 1945 97.7 / 1930 85 14 102/48 69 99 09/21 1900 84 17 112/53 76 100 08/ 1847 100 Nasal 5 60 cannula 09/21 1830 98.3 84 20 117/56 100 / 1800 85 29 124/56 81 99 / 1730 98.3 84 15 136/61 99 / 1700 91 16 144/63 90 100 / 1630 99.1 96 18 107/54 97 / 1600 120 11 104/51 68 97 09/21 1530 99.1 127 16 129/76 97 09/21 1505 97.8 131 14 109/59 97 / 1500 132 58 118/54 78 96 / 1415 132 18 175/116 132 97 24 [...] imported from the dietitian's assessment. BMI Calculated: 19.4 Nutrition related diagnosis: Nutrition diagnosis details: Nutrition problem: Nutrition etiology: Nutrition signs and symptoms: Nutrition prescription: Dietitian name: Assessment completed: Physical Exam General appearance: awake Head/Eyes: atraumatic, normocephalic ENT: poor dentition, moist mucosal membranes Cardiovascular: normal heart sounds, regular rate rhythm Respiratory: decreased breath sounds, on oxygen, symmetric expansion, no distress, PPM site c/d/i, no overlying edema, erythema or warmth Abdomen: non-tender, soft Extremities: moves all, no edema Neuro/ADOBE ARCHITECT: alert, normal speech Psychiatry: normal affect, normal mood Results Findings/Data: Laboratory Tests 09/22 0352 Chemistry Sodium (134 [...] (Auto) (20.5 - 51.1 %) 5.0 L Burke % (Auto) (1.7 - 9.3 %) 6.8 Eos % (Auto) (0.0 - 6.0 %) 0.8 Baso % (Auto) (0.0 - 2.0 %) 0.3 Neut # (Auto) (1.8 - 7.6 K/mm3) 10.0 H Lymph # (Auto) (0.6 - 3.2 K/mm3) 0.6 Burke # (Auto) (0.3 - 1.1 K/mm3) 0.8 [...] notes: 87 y/o female with PMHx of HTN, HLD, COPD, paroxysmal Afib, sick sinus syndrome, tachybrady syndome admitted for: #Paroxysmal Afib, sick sinus syndrome, tachybrady syndrome s/p PPM placement s/p PPM placement by Cardiology Dr. Ortega 09/18/22 Continue to monitor under continuous welt rander PPM insertion site Pain control with Tylenol/Tramadol [...] called and left msg for daughter Taylor [phone] at 1409 [facility] #: [id number] END OF REPORT [id number] 09:47:00 [facility] ([facility]) Pulmonology Progress Note REPORT#:[id number] REPORT STATUS: Signed DATE:09/22/22 TIME:0947 PATIENT: LESLEY BREAUX UNIT #: [id number] ROOM/BED: [place] [id number] : 36 AGE: 87 SEX: F ATTEND: Gissel Ortega MD Cardiology ADM AUTHOR: Mauro Arce MD * ALL edits or amendments must be made on the electronic/computer document * Subjective Chief complaint: less Left-sided chest pain, shortness of breath HPI: Pleasant 87-year-old lady who underwent pacemaker placement yesterday for tachybradycardia syndrome. She was having more shortness of breath and left-sided chest pain for which a CT angiogram of the chest was done, see full report. Images reviewed and discussed with patient and granddaughter. There is a small to moderate size left pleural effusion with different densities suggesting possible blood product. There are also chronic appearing reticular nodular, tree-in-bud type peripheral mostly lower zone infiltrates right more than left, no prior CT images to compare. The patient denies much in the way of chronic sputum fevers chills sweats or significant weight loss. The patient has emphysema has seen pulmonary doctors in the outpatient setting at [facility] but never smoked. Except described above, review of systems x14 is negative and normal. Objective General VS/I O: Last Documented: Result Date Time Temp 36.8 09/22 08 Pulse Ox 100 09/22 726 FiO2 28 [...] appearance: alert, awake Head/eyes: atraumatic, normocephalic, normal conjunctiva/sclera ENT: ENT: moist mucosal membranes, normal pharynx Neck: non-tender, supple/no meningismus Cardiovascular: normal S1/S2, regular rate rhythm Respiratory/chest: decreased breath sounds, on oxygen, rales, bandage, sling Abdomen: soft, non-tender Extremities: edema, no clubbing, no cyanosis Musculoskeletal: normal inspection, no muscle spasm Neuro/ADOBE ARCHITECT: alert, oriented X 3, no motor deficits Skin: dry, intact Lymphatics: neck normal, no [...] (Auto) (20.5 - 51.1 %) 5.0 L Burke % (Auto) (1.7 - 9.3 %) 6.8 Eos % (Auto) (0.0 - 6.0 %) 0.8 Baso % (Auto) (0.0 - 2.0 %) 0.3 Neut # (Auto) (1.8 - 7.6 K/mm3) 10.0 H Lymph # (Auto) (0.6 - 3.2 K/mm3) 0.6 Burke # (Auto) (0.3 - 1.1 K/mm3) 0.8 [...] left pleural effusion. Impression By: Skyler Chapman M.D. RADIOLOGY - XR CHEST 1 V 09/21 1222 Report Impression - Status: SIGNED Entered: 09/21/2022 1313 IMPRESSION: 1. Emphysematous changes. 2. Improvement of bilateral infiltrate. 3. Interval placement of left pigtail catheter placement. No pneumothorax. Impression By: BrettHPD - Bandar Kirby M.D. Diagnosis, Assessment Plan Free Text A P: Impression 1. Left pleural effusion apparently new blood layering densities, unclear etiology 2. Chronic appearing lung parenchymal changes, recommend outpatient follow-up Evaluation, she can follow-up with her pulmonary doctor that has she has recently seen in the office 3. Status post pacemaker, tachybradycardia syndrome, history of atrial fibrillation 4. Emphysema 5. Hypertension 6. Lidocaine allergy Discussion The patient is allergic to lidocaine, states that [...] therapeutic thoracentesis tomorrow. She will need closer monitoring. 2. Send pleural fluid for analysis 3. Follow-up imaging 4. Patient advised to follow-up with her pulmonary doctor in the outpatient setting in regards to the abnormal CT chest that seen her as far as the lung parenchymal changes 09/20 Reviewed her imaging studies evidence of moderate effusion with possible left lower lobe atelectasis Both do not explain the drop in hemoglobin 4 g We will order CT abdomen and pelvis PPI IV Chest PT using a flutter device and Mucomyst twice daily Thoracentesis by IR ordered Incentive spirometry IV antibiotics Follow-up imaging studies of the chest 09/21 Patient has severe pain with continuing to have dropping hemoglobin I did an ultrasound showed evidence of effusion I placed chest tube Bloody fluid was noted I drained [address] under suction for the next 24 hours If stable in a.m. we will remove to I give the patient Dilaudid 0.25 mg We will give 2 units packed RBC 09/22 sp severe pain with continuing to have dropping hemoglobin I did an ultrasound showed evidence of effusion sp[ chest tube sp blood tranusion stable HH follow up CXR Follow up IO at 0952 RPT #: [id number] END OF REPORT [id number] 13:52:00 [facility] ([facility]) Hospitalist Progress Note REPORT#:[id number] REPORT STATUS: Signed DATE:09/21/22 TIME:1352 PATIENT: LESLEY BREAUX UNIT #: [id number] ROOM/BED: [place] [id number] : 36 AGE: 87 SEX: F ATTEND: Gissel Ortega MD Cardiology ADM AUTHOR: Tejinder Toribio MD * ALL edits or amendments must be made on the electronic/computer document * Subjective Chief complaint: c/p R sided chest pain HPI: pt appears weak and frail today, c/o intermittent dizziness telemetry reviewed, pt has short intermittent pauses with HR as low as 31, cardiology notified labs reviewed, Hgb trending down to 8.1 from 12.2 09/18/22 will upgrade to IMCU for closer [...] 15 137/61 88 98 09/20 2050 98.1 09/21 1999 Nasal 2 cannula 09/20 2000 79 22 [...] imported from the dietitian's assessment. BMI Calculated: 19.4 Nutrition related diagnosis: Nutrition diagnosis details: Nutrition problem: Nutrition etiology: Nutrition signs and symptoms: Nutrition prescription: Dietitian name: Assessment completed: Physical Exam General appearance: awake Head/Eyes: atraumatic, normocephalic ENT: poor dentition, moist mucosal membranes Cardiovascular: normal heart sounds, regular rate rhythm Respiratory: decreased breath sounds, on oxygen, symmetric expansion, no distress, PPM site c/d/i, no overlying edema, erythema or warmth Abdomen: non-tender, soft Extremities: moves all, no edema Neuro/ADOBE ARCHITECT: alert, normal speech Psychiatry: normal affect, normal mood Results Findings/Data: Laboratory Tests 09/21 0320 Chemistry Sodium (134 - [...] (Auto) (20.5 - 51.1 %) 12.3 L Burke % (Auto) (1.7 - 9.3 %) 7.9 Eos % (Auto) (0.0 - 6.0 %) 3.3 Baso % (Auto) (0.0 - 2.0 %) 0.3 Neut # (Auto) (1.8 - 7.6 K/mm3) 6.9 Lymph # (Auto) (0.6 - 3.2 K/mm3) 1.1 Burke # (Auto) (0.3 - 1.1 K/mm3) 0.7 [...] Other findings as above Impression By: BrettAGRubia - Anabela Juares M.D. RADIOLOGY - XR CHEST 1 V 09/21 1222 Report Impression - Status: SIGNED Entered: 09/21/2022 1313 IMPRESSION: 1. Emphysematous changes. 2. Improvement of bilateral infiltrate. 3. Interval placement of left pigtail catheter placement. No pneumothorax. Impression By: Lane Kirby M.D. Diagnosis, Assessment Plan Free Text DxA P Notes Free text DxA P notes: 87 y/o female with PMHx of HTN, HLD, COPD, paroxysmal Afib, sick sinus syndrome, tachybrady syndome admitted for: #Paroxysmal Afib, sick sinus syndrome, tachybrady syndrome s/p PPM placement s/p PPM placement by Cardiology Dr. Ortega 09/18/22 Continue to monitor under continuous welt rander PPM insertion site Pain control with Tylenol/Tramadol [...] hemothorax Full code at 1354 RPT #: [id number] END OF REPORT [id number] 13:39:00 [facility] ([facility] DT Operative Note REPORT#:[id number] REPORT STATUS: Signed DATE:09/21/22 TIME:1339 PATIENT: LESLEY BREAUX UNIT #: [id number] ROOM/BED: [place] [address] : 36 AGE: 87 SEX: F ATTEND: Gissel Ortega MD Cardiology ADM AUTHOR: Mauro Arce MD * ALL edits or amendments must be made on the electronic/computer document * Operative Report Operative Note Note: Procedure note preoperative diagnosis: Complicated pleural effusion left [...] using the blade then insertion of the guiding needle was done into the pleural space. After aspirating the pleural fluid we introduced a guidewire, a dilator was used for 14 Palestinian with no complications, a Chente chest tube was inserted under the guidance of the guidewire the chest tube was secured and no complications or bleeding was noted during the procedure. Findings. Bloody content was noted Diagnosis and plan 1. Left hemothorax; will place tube under suction and monitor output. at 1340 RPT #: [id number] END OF REPORT [id number] 13:38:00 [facility]) Pulmonology Progress Note REPORT#:[id number] REPORT STATUS: Signed DATE:09/21/22 TIME:1338 PATIENT: LESLEY BREAUX UNIT #: [id number] ROOM/BED: [place] [address] : 36 AGE: 87 SEX: F ATTEND: Gissel Ortega MD Cardiology ADM AUTHOR: Mauro Arce MD * ALL edits or amendments must be made on the electronic/computer document * Subjective Chief complaint: Left-sided chest pain, shortness of breath HPI: Pleasant 87-year-old lady who underwent pacemaker placement yesterday for tachybradycardia syndrome. She was having more shortness of breath and left-sided chest pain for which a CT angiogram of the chest was done, see full report. Images reviewed and discussed with patient and granddaughter. There is a small to moderate size left pleural effusion with different densities suggesting possible blood product. There are also chronic appearing reticular nodular, tree-in-bud type peripheral mostly lower zone infiltrates right more than left, no prior CT images to compare. The patient denies much in the way of chronic sputum fevers chills sweats or significant weight loss. The patient has emphysema has seen pulmonary doctors in the outpatient setting at [facility] but never smoked. Except described above, review [...] I O ending at 0700: 09/21 0700 08 1900 Intake Total 260.00 420 Output Total [...] IV Physical Exam Head/eyes: atraumatic, normocephalic, normal conjunctiva/sclera ENT: ENT: moist mucosal membranes, normal pharynx Neck: non-tender, supple/no meningismus Cardiovascular: normal S1/S2, regular rate rhythm Respiratory/chest: decreased breath sounds, on oxygen, rales, bandage, sling Abdomen: soft, non-tender Extremities: edema, no clubbing, no cyanosis Musculoskeletal: normal inspection, no muscle spasm Neuro/ADOBE ARCHITECT: alert, oriented X 3, no motor deficits Skin: dry, intact Lymphatics: neck normal, no [...] (Auto) (20.5 - 51.1 %) 12.3 L Burke % (Auto) (1.7 - 9.3 %) 7.9 Eos % (Auto) (0.0 - 6.0 %) 3.3 Baso % (Auto) (0.0 - 2.0 %) 0.3 Neut # (Auto) (1.8 - 7.6 K/mm3) 6.9 Lymph # (Auto) (0.6 - 3.2 K/mm3) 1.1 Burke # (Auto) (0.3 - 1.1 K/mm3) 0.7 [...] of left pigtail catheter placement. No pneumothorax. Impression By: BrettHPD - Bandar Kirby M.D. Diagnosis, Assessment Plan Free Text A P: Impression 1. Left pleural effusion apparently new blood layering densities, unclear etiology 2. Chronic appearing lung parenchymal changes, recommend outpatient follow-up Evaluation, she can follow-up with her pulmonary doctor that has she has recently seen in the office 3. Status post pacemaker, tachybradycardia syndrome, history of atrial fibrillation 4. Emphysema 5. Hypertension 6. Lidocaine allergy Discussion The patient is allergic to lidocaine, states that [...] therapeutic thoracentesis tomorrow. She will need closer monitoring. 2. Send pleural fluid for analysis 3. Follow-up imaging 4. Patient advised to follow-up with her pulmonary doctor in the outpatient setting in regards to the abnormal CT chest that seen her as far as the lung parenchymal changes 09/20 Reviewed her imaging studies evidence of moderate effusion with possible left lower lobe atelectasis Both do not explain the drop in hemoglobin 4 g We will order CT abdomen and pelvis PPI IV Chest PT using a flutter device and Mucomyst twice daily Thoracentesis by IR ordered Incentive spirometry IV antibiotics Follow-up imaging studies of the chest 09/21 Patient has severe pain with continuing to have dropping hemoglobin I did an ultrasound showed evidence of effusion I placed chest tube Bloody fluid was noted I drained [address] under suction for the next 24 hours If stable in a.m. we will remove to I give the patient Dilaudid 0.25 mg We will give 2 units packed RBC at 1339 RPT #: [id number] END OF REPORT [id number] 14:03:00 [facility] ([facility]) Pulmonology Progress Note REPORT#:[id number] REPORT STATUS: Signed DATE:09/20/22 TIME:1403 PATIENT: LESLEY BREAUX UNIT #: [id number] ROOM/BED: [place] [address] : 36 AGE: 87 SEX: F ATTEND: Gissel Ortega MD Cardiology ADM AUTHOR: Mauro Arce MD * ALL edits or amendments must be made on the electronic/computer document * Subjective Chief complaint: Left-sided chest pain, shortness of breath HPI: Pleasant 87-year-old lady who underwent pacemaker placement yesterday for tachybradycardia syndrome. She was having more shortness of breath and left-sided chest pain for which a CT angiogram of the chest was done, see full report. Images reviewed and discussed with patient and granddaughter. There is a small to moderate size left pleural effusion with different densities suggesting possible blood product. There are also chronic appearing reticular nodular, tree-in-bud type peripheral mostly lower zone infiltrates right more than left, no prior CT images to compare. The patient denies much in the way of chronic sputum fevers chills sweats or significant weight loss. The patient has emphysema has seen pulmonary doctors in the outpatient setting at [facility] but never smoked. Except described above, review of systems x14 is negative and normal. Objective General VS/I O: Last Documented: Result Date Time Pulse Ox 96 09/20 1215 B/P 164/64 09/20 1215 B/P Mean 97.4 09/20 1215 Temp 36.7 09/20 1215 Pulse 84 09/20 1215 Resp 18 09/20 1215 FiO2 21 09/20 0932 O2 Delivery Room air 09/20 0932 O2 Flow Rate 2 09/19 2000 24 hour I O ending at [...] ML Iopamidol (ISOVUE-300) 0 .STK-MED ONE .ROUTE (DC) Iopamidol [...] IV Physical Exam Head/eyes: atraumatic, normocephalic, normal conjunctiva/sclera ENT: ENT: moist mucosal membranes, normal pharynx Neck: non-tender, supple/no meningismus Cardiovascular: normal S1/S2, regular rate rhythm Respiratory/chest: decreased breath sounds, on oxygen, rales, bandage, sling Abdomen: soft, non-tender Extremities: edema, no clubbing, no cyanosis Musculoskeletal: normal inspection, no muscle spasm Neuro/ADOBE ARCHITECT: alert, oriented X 3, no motor deficits Skin: dry, intact Lymphatics: neck normal, no lymphadenopathy Results Findings/Data: Laboratory Tests 09/20/22 1120: [Embedded Image Not Available] 09/20/22 041: [Embedded Image Not Available] Laboratory Tests 09/21 [...] - 10.1 MG/DL) 8.6 Laboratory Tests 09/20 112 Coagulation INR (0.8 - 1.2 INR Unit) 1.14 PT Patient/Control Mix (9.3 - 12.9 SECONDS) 12.7 Laboratory Tests 09/20 09/20 1120 0412 Hematology [...] (Auto) (20.5 - 51.1 %) 14.0 L Burke % (Auto) (1.7 - 9.3 %) 8.6 Eos % (Auto) (0.0 - 6.0 %) 3.8 Baso % (Auto) (0.0 - 2.0 %) 0.4 Neut # (Auto) (1.8 - 7.6 K/mm3) 6.9 Lymph # (Auto) (0.6 - 3.2 K/mm3) 1.3 Burke # (Auto) (0.3 - 1.1 K/mm3) 0.8 [...] Impression By: Skyler Chapman M.D. Diagnosis, Assessment Plan Free Text A P: Impression 1. Left pleural effusion apparently new blood layering densities, unclear etiology 2. Chronic appearing lung parenchymal changes, recommend outpatient follow-up Evaluation, she can follow-up with her pulmonary doctor that has she has recently seen in the office 3. Status post pacemaker, tachybradycardia syndrome, history of atrial fibrillation 4. Emphysema 5. Hypertension 6. Lidocaine allergy Discussion The patient is allergic to lidocaine, states that [...] therapeutic thoracentesis tomorrow. She will need closer monitoring. 2. Send pleural fluid for analysis 3. Follow-up imaging 4. Patient advised to follow-up with her pulmonary doctor in the outpatient setting in regards to the abnormal CT chest that seen her as far as the lung parenchymal changes 09/20 Reviewed her imaging studies evidence of moderate effusion with possible left lower lobe atelectasis Both do not explain the drop in hemoglobin 4 g We will order CT abdomen and pelvis PPI IV Chest PT using a flutter device and Mucomyst twice daily Thoracentesis by IR ordered Incentive spirometry IV antibiotics Follow-up imaging studies of the chest at 1405 RPT #: [id number] END OF REPORT [id number] 11:12:00 [facility] ([facility]) Hospitalist Progress Note REPORT#:[id number] REPORT STATUS: Signed DATE:09/20/22 TIME:1112 PATIENT: LESLEY BREAUX UNIT #: [id number] ROOM/BED: [place] [address] : 36 AGE: 87 SEX: F ATTEND: Gissel Ortega MD Cardiology ADM AUTHOR: Ora Mackay * ALL edits or amendments must be made on the electronic/computer document * Subjective Chief complaint: chest wall pain HPI: pt appears weak and frail today, c/o intermittent dizziness telemetry reviewed, pt has short intermittent pauses with HR as low as 31, cardiology notified labs reviewed, Hgb trending down to 8.1 from 12.2 09/18/22 will upgrade to IMCU for closer [...] imported from the dietitian's assessment. BMI Calculated: 19.4 Nutrition related diagnosis: Nutrition diagnosis details: Nutrition problem: Nutrition etiology: Nutrition signs and symptoms: Nutrition prescription: Dietitian name: Assessment completed: Physical Exam General appearance: chronically ill appearing, frail, alert, no acute distress Head/Eyes: atraumatic, normocephalic ENT: poor dentition, moist mucosal membranes Cardiovascular: normal heart sounds, regular rate rhythm Respiratory: decreased breath sounds, on oxygen, symmetric expansion, no distress, PPM site c/d/i, no overlying edema, erythema or warmth Abdomen: non-tender, soft Extremities: moves all, no edema Neuro/ADOBE ARCHITECT: alert, normal speech Psychiatry: normal affect, normal [...] (Auto) (20.5 - 51.1 %) 14.0 L Burke % (Auto) (1.7 - 9.3 %) 8.6 Eos % (Auto) (0.0 - 6.0 %) 3.8 Baso % (Auto) (0.0 - 2.0 %) 0.4 Neut # (Auto) (1.8 - 7.6 K/mm3) 6.9 Lymph # (Auto) (0.6 - 3.2 K/mm3) 1.3 Burke # (Auto) (0.3 - 1.1 K/mm3) 0.8 [...] notes: 87 y/o female with PMHx of HTN, HLD, COPD, paroxysmal Afib, sick sinus syndrome, tachybrady syndome admitted for: #Paroxysmal Afib, sick sinus syndrome, tachybrady syndrome s/p PPM placement s/p PPM placement by Cardiology Dr. Ortega 09/18/22 Continue to monitor under continuous telemetry Telemetry reviewed, pt is having intermittent pauses with HR as low as 31, Cardiology notified Will upgrade to IMCU for closer monitoring Monitor PPM insertion site Pain control with Tylenol/Tramadol PRN Continue home coreg Hold home Eliquis due to anemia with possible hemothorax #Complex moderate left pleural effusion CTA Chest negative for PE, noted complex moderate left pleural effusion, possible hemothorax Respiratory status stable, supplemental O2 PRN to maintain SpO2 >92%, currently on 2L O2 Pulmonology following, recs for IR consult for diagnostic and therapeutic thoracentesis Pt is allergic to lidocaine, may need anesthesia for procedure #Acute normocytic anemia, possibly due to acute blood loss with possible hemothorax Hgb trending down to 8.1 today from 12.2 on 09/18/22, possible hemothorax on CTA Chest with plan for thoracentesis for further evaluation Hold anticoagulation Monitor H/H q8hr, transfuse PRN for Hgb <7 #Hypertension Continue home coreg, losartan IV hydralazine PRN #Hx of COPD Not in acute exacerbation Duoneb tx PRN DVT prophylaxis with SCDs, hold home Eliquis due to anemia with possible hemothorax Full code at 1122 at 1510 RPT #: [id number] END OF REPORT [id number] 14:20:00 [facility] ([facility]) Pulmonary Consultation Note REPORT#:[id number] REPORT STATUS: Signed DATE:09/19/22 TIME:1420 PATIENT: LESLEY BREAUX UNIT #: [id number] ROOM/BED: [place] [address] : 36 AGE: 87 SEX: F ATTEND: Gissel Ortega MD Cardiology ADM AUTHOR: Aaron Chavis MD * ALL edits or amendments must be made on the electronic/computer document * History of Present Illness HPI Chief complaint: Left-sided chest pain, shortness of breath HPI: Pleasant 87-year-old lady who underwent pacemaker placement yesterday for tachybradycardia syndrome. She was having more shortness of breath and left-sided chest pain for which a CT angiogram of the chest was done, see full report. Images reviewed and discussed with patient and granddaughter. There is a small to moderate size left pleural effusion with different densities suggesting possible blood product. There are also chronic appearing reticular nodular, tree-in-bud type peripheral mostly lower zone infiltrates right more than left, no prior CT images to compare. The patient denies much in the way of chronic sputum fevers chills sweats or significant weight loss. The patient has emphysema has seen pulmonary doctors in the outpatient setting at [facility] but never smoked. Except described above, review of systems x14 is negative and normal. History - Adult longitudinal Family history: Reports: Heart disease, Hypertension. Smoking status for patients 13 years old or older: Never Smoker Allergies: Coded Allergies: fentanyl (Severe, COMA 09/16/22) Penicillins (Intermediate, HIVES 09/16/22) Sulfa (Sulfonamide Antibiotics) (Intermediate, MAKES HER PASS OUT 09/16/22) codeine (Intermediate, VOMITING 09/16/22) hydrocodone (Intermediate, VOMITING 09/16/22) meperidine (From DEMEROL) (Intermediate, THROW UP 09/16/22) morphine (Mild, HIVES 09/16/22) lidocaine (RASH-UNKNOWN [...] (Auto) (20.5 - 51.1 %) 18.8 L Burke % (Auto) (1.7 - 9.3 %) 7.5 Eos % (Auto) (0.0 - 6.0 %) 6.3 H Baso % (Auto) (0.0 - 2.0 %) 0.8 Neut # (Auto) (1.8 - 7.6 K/mm3) 4.0 Lymph # (Auto) (0.6 - 3.2 K/mm3) 1.1 Burke # (Auto) (0.3 - 1.1 K/mm3) 0.5 [...] central venous line Impression By: Maurice Mancia M.D. CAT SCAN - CTA CHEST FOR PE 09/19 1030 Report Impression - Status: SIGNED Entered: 09/19/2022 1128 IMPRESSION: No pulmonary embolus is identified. Moderate left pleural effusion which appears complex with layering hyperdensity. [...] of iterative reconstruction technique. Impression By: Tato - Lay Beltrán M.D. Current Medications Sig/Johnny Start time [...] BEDTIME 09/18 2100 AC 09/18 PO 10/18 2052002 Zolpidem Tartrate 5 MG BEDTIME PRN 09/18 2045 AC 09/18 PO 09/20 0400 2045 Ibuprofen 400 MG ONCE ONE 09/18 1845 DC 09/18 PO 09/18 1846 1953 Carvedilol 3.125 MG DAILY 09/18 1300 [...] AC Insts (1) IV 10/18 1159 Dose Instructions: [...] central venous line Impression By: Maurice Mancia M.D. CAT SCAN - CTA CHEST FOR PE 09/19 1030 Report Impression - Status: SIGNED Entered: 09/19/2022 1128 IMPRESSION: No pulmonary embolus is identified. Moderate left pleural effusion which appears complex with layering hyperdensity. [...] no acute distress Head/eyes: atraumatic, normocephalic, normal conjunctiva/sclera ENT: ENT: moist mucosal membranes, normal pharynx Neck: non-tender, supple/no meningismus Cardiovascular: normal S1/S2, regular rate rhythm Respiratory/chest: decreased breath sounds, on oxygen, rales, bandage, sling Abdomen: soft, non-tender Extremities: edema, no clubbing, no cyanosis Musculoskeletal: normal inspection, no muscle spasm Neuro/ADOBE ARCHITECT: alert, oriented X 3, no motor deficits Skin: dry, intact Lymphatics: neck normal, no lymphadenopathy Diagnosis, Assessment Plan Free Text DxA P Notes Free Text DxA P Notes: Impression 1. Left pleural effusion apparently new blood layering densities, unclear etiology 2. Chronic appearing lung parenchymal changes, recommend outpatient follow-up Evaluation, she can follow-up with her pulmonary doctor that has she has recently seen in the office 3. Status post pacemaker, tachybradycardia syndrome, history of atrial fibrillation 4. Emphysema 5. Hypertension 6. Lidocaine allergy Discussion The patient is allergic to lidocaine, states that [...] therapeutic thoracentesis tomorrow. She will need closer monitoring. 2. Send pleural fluid for analysis 3. Follow-up imaging 4. Patient advised to follow-up with her pulmonary doctor in the outpatient setting in regards to the abnormal CT chest that seen her as far as the lung parenchymal changes Thanks much for this consultation. I spoke with patient, granddaughter, daughter by phone and nursing staff. at 1432 RPT #: [id number] END OF REPORT [id number] 12:29:00 [facility] ([facility]) Hospitalist Progress Note REPORT#:[id number] REPORT STATUS: Signed DATE:09/19/22 TIME:1229 PATIENT: LESLEY BREAUX UNIT #: [id number] ROOM/BED: [place] [address] : 36 AGE: 87 SEX: F ATTEND: Gissel Ortega MD Cardiology ADM AUTHOR: Ora Mackay * ALL edits or amendments must be made on the electronic/computer document * Subjective Chief complaint: chest wall [...] imported from the dietitian's assessment. BMI Calculated: 19.4 Nutrition related diagnosis: Nutrition diagnosis details: Nutrition problem: Nutrition etiology: Nutrition signs and symptoms: Nutrition prescription: Dietitian name: Assessment completed: Physical Exam General appearance: chronically ill appearing, frail, alert, awake, no acute distress Head/Eyes: atraumatic, normocephalic ENT: poor dentition, moist mucosal membranes Cardiovascular: normal heart sounds, regular rate rhythm Respiratory: decreased breath sounds, symmetric expansion, no distress, PPM site c/d/i, no overlying edema, erythema or warmth Abdomen: non-tender, soft Extremities: moves all, no edema Neuro/ADOBE ARCHITECT: alert, normal speech Psychiatry: normal affect, normal [...] (Auto) (20.5 - 51.1 %) 18.8 L Burke % (Auto) (1.7 - 9.3 %) 7.5 Eos % (Auto) (0.0 - 6.0 %) 6.3 H Baso % (Auto) (0.0 - 2.0 %) 0.8 Neut # (Auto) (1.8 - 7.6 K/mm3) 4.0 Lymph # (Auto) (0.6 - 3.2 K/mm3) 1.1 Burke # (Auto) (0.3 - 1.1 K/mm3) 0.5 [...] 0250 Report Impression - Status: SIGNED Entered: 09/19/2022613 IMPRESSION: Interval removal of the right sided central venous line Impression By: Maurice Mancia M.D. CAT SCAN - CTA CHEST FOR PE 09/19 1030 Report Impression - Status: SIGNED Entered: 09/19/2022 1128 IMPRESSION: No pulmonary embolus is identified. Moderate left pleural effusion which appears complex with layering hyperdensity. [...] of iterative reconstruction technique. Impression By: Tato - Lay Beltrán M.D. Diagnosis, Assessment Plan Free Text DxA P Notes Free text DxA P notes: 87 y/o female with PMHx of HTN, HLD, COPD, paroxysmal Afib, sick sinus syndrome, tachybrady syndome admitted for: #Paroxysmal Afib, sick sinus syndrome, tachybrady syndrome s/p PPM placement s/p PPM placement by Cardiology Dr. Ortega 09/18/22 Monitor under continuous welt rander PPM insertion site Pain control with Tylenol/Tramadol PRN Continue home coreg Hold Eliquis for possible hemothorax on CTA Chest #Complex moderate left pleural effusion CTA Chest negative for PE, noted complex moderate left pleural effusion, possible hemothorax Respiratory status stable, supplemental O2 PRN to maintain SpO2 >92% Will give IV lasix 20mg x1 Consult Pulmonology #Hypertension Continue home coreg, losartan IV hydralazine PRN #Hx of COPD Not in acute exacerbation Duoneb tx PRN DVT prophylaxis with SCDs, hold home Eliquis for possible hemothorax Full code at 1236 at 1307 RPT #: [id number] END OF REPORT [id number]:30:[id number] [facility] [address] [place] [address] PATIENT NAME: LESLEY BREAUX ADMIT DATE: 09/19/22 ACCOUNT NO: [id number] ROOM NO: [facility] AGE: 87 REPORT TYPE: eELECTROCARDIOGRAM SEX: F ADMITTING PHYSICIAN: Tejinder Toribio MD ATTENDING PHYSICIAN: Gissel Ortega MD Order: [id number] Test Reason : S/P PPI Test Date/Time Stamp: [place] Sep 19 2022 11:30:57 Blood Pressure : / mmHG Vent. Rate : 066 BPM Atrial Rate : 066 BPM P-R Int : 242 ms QRS Dur : 158 ms QT Int : 480 ms P-R-T Axes : 000 -75 105 degrees QTc Int : 503 ms AV dual-paced rhythm with prolonged AV conduction Abnormal ECG When compared with ECG of 18-SEP-2022 12:20, Vent. rate has decreased BY 2 BPM Confirmed by GISSEL ORTEGA ([id number]) on 09/19/2022 5:56:33 PM Referred By: Gissel Ortega Confirmed by:GISSEL ORTEGA at 1756 PATIENT NAME: LESLEY BREAUX 12:20:00 [id number] [place] [address] PATIENT NAME: LESLEY BREAUX ADMIT DATE: 09/18/22 ACCOUNT NO: [id number] ROOM NO: [place] AGE: 87 REPORT TYPE: eELECTROCARDIOGRAM SEX: F ADMITTING PHYSICIAN: Tejinder Toribio MD ATTENDING PHYSICIAN: Gissel Ortega MD Order: [id number] Test Reason : Post insertion procedure Test Date/Time Stamp: [facility] Sep 18 2022 12:20:50 Blood Pressure : / mmHG Vent. Rate : 068 BPM Atrial Rate : 068 BPM P-R Int : 340 ms QRS Dur : 144 ms QT Int : 462 ms P-R-T Axes : 079 -81 086 degrees QTc Int : 491 ms AV dual-paced rhythm with prolonged AV conduction with occasional ventricular-paced complexes Abnormal ECG When compared with ECG of 18-SEP-2022 08:11, Electronic ventricular pacemaker has replaced Sinus rhythm Confirmed by GISSEL ORTEGA ([id number]) on 09/18/2022 1:01:23 PM Referred By: Gissel Ortega Confirmed by:GISSEL ORTEGA at 1301 PATIENT NAME: LESLEY BREAUX 12:17:00 [facility]) Hospitalist History Physical REPORT#:[id number] REPORT STATUS: Signed DATE:09/18/22 TIME:1217 PATIENT: LESLEY BREAUX UNIT #: [id number] ROOM/BED: [place] [address] : 36 AGE: 87 SEX: F ATTEND: Gissel Ortega MD Cardiology ADM AUTHOR: Ora Mackay * ALL edits or amendments must be made on the electronic/computer document * History of Present Illness HPI Chief complaint: chest wall pain HPI: 87 y/o female with PMHx of HTN, HLD, COPD, paroxysmal Afib, sick sinus syndrome, tachybrady syndome was admitted to the hospital for postoperative monitoring after PPM placement by Dr. Ortega today. Pt c/o mild chest wall pain at site of PPM, no other complaints. Denies any palpitations or SOB. No nausea or vomiting. History Family History Family history: Reports: Heart disease, Hypertension. Social History Smoking status for patients 13 years old or older: Never Smoker Medication/Allergy-Vaccine Hx Medications: Home Medications: [...] (Intermediate, HIVES 09/16/22) Sulfa (Sulfonamide Antibiotics) (Intermediate, MAKES HER PASS OUT 09/16/22) codeine (Intermediate, VOMITING 09/16/22) hydrocodone (Intermediate, VOMITING 09/16/22) meperidine (From DEMEROL) (Intermediate, THROW UP 09/16/22) morphine (Mild, HIVES 09/16/22) Review of [...] ill appearing, frail, alert, awake, no acute distress Head/Eyes: atraumatic, normocephalic ENT: poor dentition, moist mucosal membranes Cardiovascular: normal heart sounds, regular rate rhythm Respiratory: symmetric expansion, no distress, PPM site c/d/i, no overlying edema, erythema or warmth Abdomen: non-tender, soft Extremities: moves all, no edema Neuro/ADOBE ARCHITECT: alert, normal speech Psychiatry: normal affect, normal [...] % (Auto) (20.5 - 51.1 %) 24.0 Burke % (Auto) (1.7 - 9.3 %) 6.1 Eos % (Auto) (0.0 - 6.0 %) 7.2 H Baso % (Auto) (0.0 - 2.0 %) 1.1 Neut # (Auto) (1.8 - 7.6 K/mm3) 3.4 Lymph # (Auto) (0.6 - 3.2 K/mm3) 1.3 Burke # (Auto) (0.3 - 1.1 K/mm3) 0.3 Eos # (Auto) (0.0 - 0.4 K/mm3) 0.4 Baso # (Auto) (0.0 - 0.1 K/mm3) 0.1 Abs Immat Gran (auto) (0.00 - 0.03 x10 3/uL) 0.02 Add Manual Diff (CRITERIA DIFF/SCN) NO Immature Gran % (0.0 - 5.0 %) 0.4 Nucleated RBC % (0.0 - 1.0 /100WBC%) 0.0 Laboratory Tests 09/18/22 0744: [Embedded Image Not Available] Radiology data: Recent Impressions: RADIOLOGY - XR CHEST 1 V 09/18 1200 Report Impression - Status: SIGNED Entered: 09/18/2022 1248 IMPRESSION: Mild congestive changes bilaterally. Impression By: Tato - Lay Beltrán M.D. Diagnosis, Assessment Plan Free Text A P: 87 y/o female with PMHx of HTN, HLD, COPD, paroxysmal Afib, sick sinus syndrome, tachybrady syndome admitted for: #Paroxysmal Afib, sick sinus syndrome, tachybrady syndrome s/p PPM placement s/p PPM placement by Cardiology Dr. Ortega today Monitor under continuous welt rander PPM insertion site Pain control with Tylenol/Tramadol PRN Continue home coreg, Eliquis #Hypertension Continue home coreg, losartan IV hydralazine PRN #Hx of COPD Not in acute exacerbation Duoneb tx PRN DVT prophylaxis with home Eliquis Full code Dispo- plan DC home tomorrow morning if pain controlled and tolerating po at 1516 at 1306 RPT #: [id number] END OF REPORT [id number] [facility] [address] [place] [address] PATIENT NAME: LESLEY BREAUX ADMIT DATE: 09/18/22 ACCOUNT NO: [id number] ROOM NO: L.PO10 AGE: 87 REPORT TYPE: CARDIAC CATHETERIZATION REPORT SEX: F ADMITTING PHYSICIAN: Tejinder Toribio MD ATTENDING PHYSICIAN: Gissel Roldan Ricki Ortega MD PROCEDURE DATE: 09/18/2022 PAYROLL COORDINATOR: Gissel Ortega MD. INDICATION FOR THE PROCEDURE: [...] Dictated: 09/18/2022 11:57:24 Date Transcribed: 09/18/2022 14:28:58 [facility] Receipt ID: [id number] Authenticated by Gissel Ortega MD On 09/19/2022 10:28:01 AM PATIENT NAME: LESLEY BREAUX at 1028 PATIENT NAME: LESLEY BREAUX 08:11:00 [id number] [address] PATIENT NAME: LESLEY BREAUX ADMIT DATE: 09/18/22 ACCOUNT NO: [id number] ROOM NO: AGE: 87 REPORT TYPE: eELECTROCARDIOGRAM SEX: F ADMITTING PHYSICIAN: ATTENDING PHYSICIAN: Gissel Ortega MD Order: [id number] Test Reason : ABN STRESS Test Date/Time [...] sinus arrhythmia with 1st degree AV block with premature ventricular complexes or fusion complexes Left axis deviation Anteroseptal infarct , age undetermined Abnormal ECG No previous ECGs available Confirmed by GISSEL ORTEGA ([id number]) on 09/18/2022 9:34:02 AM Referred By: Gissel Ortega Confirmed by:GISSEL ORTEGA at 0934 PATIENT NAME: LESLEY BREAUX 08:06:00 [id number] [facility] [id number] [place] [address] PATIENT NAME: LESLEY BREAUX ADMIT DATE: ACCOUNT NO: [id number] ROOM NO: AGE: 87 REPORT TYPE: HISTORY AND PHYSICAL SEX: F ADMITTING PHYSICIAN: ATTENDING PHYSICIAN: Gissel Ortega MD Cardiology PATIENT NAME: LESLEY BREAUX ADMIT DATE:09/18/2022 ADMISSION DATE: 09/18/2022 10:00:00 PAYROLL COORDINATOR: Gissel Ortega MD. REASON FOR CONSULTATION: The title of the procedure is dual chamber permanent pacemaker implantation for symptomatic sick sinus syndrome and paroxysmal atrial fibrillation in a patient with no coronary history. [...] pauses up to 3.3 seconds alternating with paroxysmal atrial fibrillation. He felt that the patient's best option for treatment would be dual chamber permanent pacemaker implantation and medical therapy for her paroxysmal atrial fibrillation. So, after discussion with the patient and Dr. Tenorio and the patient's family, the patient is here for dual chamber permanent pacemaker implantation. The patient has had history of angina for some time. She has had 2 negative cardiac catheterizations in 2010 and 2021. Her carotid Doppler shows less than 50% disease, monitoring was described above. She has a baseline of sinus bradycardia and first-degree AV block. Echocardiography showing hypertensive changes and mild mitral regurgitation, moderate aortic insufficiency, normal ejection fraction. She has pulmonary hypertension, 50-60 mmHg. Has had a negative chemical stress test for ischemia. The patient's main issues at this time is symptomatic tachybrady syndrome and need for dual chamber permanent pacemaker implantation. PAST MEDICAL HISTORY: As per above the patient has had also history of hypertension, hyperlipidemia. She said she may have had an old myocardial infarction. She said she may have had a stroke in the past. Has hypothyroidism, seizures, insomnia, osteoarthritis, asthma, glaucoma, anxiety, depression, COPD; C. diff , recently hospitalized for it and recovered and COVID in October of 2021 and allergies. PAST SURGICAL HISTORY: She has had a complete hysterectomy and history of ablation for the fibrillation that failed in 2014. SOCIAL HISTORY: There is no history of smoking, alcohol or street drug use. FAMILY HISTORY: Positive for atherosclerotic cardiovascular disease. PATIENT NAME: LESLEY BREAUX ALLERGIES: DEMEROL, SULFA, CODEINE, HYDROCODONE AND FENTANYL CAUSES RASH. MEDICATIONS: Vitamin D3, Ambien, atorvastatin, furosemide, sertraline, carvedilol, losartan, Eliquis and aspirin, Eliquis is on hold and the carvedilol is 6.25 b.i.d. and losartan is 25 mg half twice daily. REVIEW OF SYSTEMS: Remarkable for the above in addition to fatigue, allergies, generalized weakness, recent hospitalization for C. diff, history of stroke in 2003. She has also history of anxiety and depression. The rest of the review of systems is enclosed. PHYSICAL EXAMINATION: GENERAL: Reveals a pleasant elderly lady, in no acute distress. VITAL SIGNS: Blood pressure 154/70, pulse 58 and regular, respiratory rate 16 and unlabored, temperature afebrile. HEENT: Head atraumatic, normocephalic. Eyes and ENT examination within normal for age. NECK: Supple. Elevated jugular venous pressure is noted. No bruits. Normal upstroke. LUNGS: Clear and resonant with diminished breath sounds at the bases. She uses oxygen on and off. HEART: Regular rate and rhythm with II/ systolic and diastolic murmurs at the mitral and aortic area respectively and bradycardia noted. No gallops. ABDOMEN: Soft. No tenderness, no organomegaly, no masses or bruits. EXTREMITIES: 2+ distal pulses. No edema, cyanosis or clubbing. NEUROLOGIC: Alert and oriented x3. The examination appears to be nonfocal. LABORATORY AND DIAGNOSTIC DATA: Pending. Noninvasive cardiovascular workup enclosed. IMPRESSION: This is an 87-year-old lady with multiple medical problems and significant cardiovascular history whose main problem right now is paroxysmal atrial fibrillation, alternating with symptomatic sick sinus syndrome, tachybrady syndrome. The patient was evaluated by Electrophysiology and dual chamber permanent pacemaker implantation was advised. The patient is here for that procedure. The patient is otherwise stable from the cardiovascular standpoint. The patient is right handed, so proceed with dual chamber permanent pacemaker implantation from the left side. PLAN: The recommendation is to proceed with the above-mentioned procedures. The risks and benefits of the planned procedure were discussed in detail with the patient and available family members and she is willing to proceed. Rest as per orders. Dictated By: Gissel Ortega MD Date Dictated: 09/17/2022 08:06:04 Date Transcribed: 09/17/2022 09:56:45 [facility] PATIENT NAME: LESLEY BREAUX LOU Receipt ID: [id number] Authenticated and Edited by Gissel Ortega MD On 09/17/22 5:36:56 PM at 0539 PATIENT NAME: LESLEY BREAUX LOU
[2024-11-18] MEDS ORDERED: LEVALBUTEROL 1.25 MG/3 ML NEB ONE (18:18)
[2024-11-18] MEDS ORDERED: IPRATROPIUM BROM 0.5MG/2.5ML ONE (18:18)
--- NOTE | 2024-11-18 18:28 | RAD REPORT ---
EXAMINATION: ONE VIEW CHEST XR CLINICAL INDICATION: SOB TECHNIQUE: Frontal chest projection is submitted. Examination is limited by patient positioning and t echnique. COMPARISON: 03/02/2023 FINDINGS: The lungs are diffusely emphysematous but grossly clear. The heart is upper limit of normal in size. No displaced fractures identified. Dual lead pacer device present. IMPRESSION: COPD without an acute process suspected.
[2024-11-18 18:46] LABS: Absolute Lymphocytes (CBC) 0.9 K/uL (0.7-4.9); Hematocrit 36.9 % (36.0-45.0); Hemoglobin 12.4 g/dL (12.0-15.0); MCH 30.3 pg (27.0-35.0); MCHC 33.8 g/dL (32.0-36.0); MCV 89.7 fL (80-100); MPV 8.2 fL (7.6-11.3); Nucleated RBC Absolute Count 0.0 (0-0); Nucleated Red Blood Cells % 0.1 % (0-0); RBC Red Blood Cell Count 4.11 M/uL (3.86-4.86); White Blood Count 7.40 thou/uL (4.3-10.9)
[2024-11-18 18:50] LABS: PT Prothrombin Time 15.7 SECONDS (10-13.0); Protime INR 1.4
[2024-11-18 19:04] LABS: Sqamous Epithelial <5 /HPF (None Seen); Urine Culture Reflex Order REFLEXED; Urine Microscopic Reflex YN ORDER UMIC; Urine WBC Clump Many /HPF (None Seen)
[2024-11-18 19:07] LABS: ALT/SGPT 24.0 U/L (13-56); AST/SGOT 24.0 U/L (15-37); Albumin 3.2 g/dL (3.4-5.0); Albumin/Globulin Ratio 0.8 (1.1-1.8); Alkaline Phosphatase 94.0 U/L (45-117); Anion Gap 8.0 mEq/L (5.0-15.0); BUN Blood Urea Nitrogen 29.0 mg/dL (7-18); Bilirubin Indirect, Calculated 0.8 mg/dL (0.2-0.8); Globulin 3.9 g/dL (2.3-3.5); Glucose Level 104.0 mg/dL (74-106); Magnesium 2.2 mg/dL (1.6-2.4); NT PRO-BNP 800.0 pg/mL (<450); Potassium 4.0 mEq/L (3.5-5.1); Troponin High Sensitivity 16.8 pg/mL (<58.9)
[2024-11-18] MEDS ORDERED: CEFTRIAXONE 1000 MG/VIAL ONE (19:45)
[2024-11-18] MEDS ORDERED: METHYLPREDNISOLONE 40 MG INJ ONE (19:46)
--- NOTE | 2024-11-18 20:51 | ER ---
Nurse's Notes [facility] Name: Madiha Breaux Age: 89 yrs Sex: Female : 1935 Arrival Date: 11/18/2024 Time: 17:45 Bed 16 Private MD: Diagnosis: COPD/ Chronic obstructive pulmonary disease with (acute) exacerbation;UTI/ Urinary tract infection, site not specified;Unspecified atrial fibrillation Presentation: 11/18 18:10 Chief complaint: EMS states: toned out for difficulty breathing, pain when urinating kj2 and blood in urine. Coronavirus screen: Client denies travel out of the [place] in the last 14 days. Ebola Screen: No symptoms or risks identified at this time. Initial Sepsis Screen: Does the patient meet any 2 criteria? No. Patient's initial sepsis screen is negative. Does the patient have a suspected source of infection? No. Patient's initial sepsis screen is negative. Risk Assessment: Do you want to hurt yourself or someone else? Patient reports no desire to harm self or others. Onset of symptoms was November 18, 2024. 18:10 Method Of Arrival: EMS: [facility] kj2 18:10 Acuity: DAMIR 3 kj2 Triage Assessment: 18:15 Respiratory: Reports shortness of breath at rest the patient has moderate shortness of kj2 breath. 18:15 General: Appears in no apparent distress. Behavior is cooperative. Pain: Denies pain. kj2 Historical: - Allergies: 21:13 Codeine; kj2 21:13 Demerol; kj2 21:13 Fentanyl; kj2 21:13 lamital; kj2 21:13 Lidocaine; kj2 21:13 meperidine; kj2 21:13 Morphine; kj2 21:13 [place]; kj2 21:13 PENICILLINS; kj2 21:13 PORK/PORCINE PRODUCT DERIVATIVES; kj2 21:13 Sulfa (Sulfonamide Antibiotics); kj2 - PMHx: 21:13 Atrial fibrillation; C-diff; COPD; CVA; Myocardial infarction; Pacemaker; kj2 - Immunization history:: Adult Immunizations unknown. - Infectious Disease History:: Denies. CDIFF, . - Social history:: Smoking status: unknown. Screenin:15 [facility] ED Fall Risk Assessment (Adult) History of falling in the last 3 months, kj2 including since admission No falls in past 3 months (0 pts) Confusion or Disorientation No (0 pts) Intoxicated or Sedated No (0 pts) Impaired Gait No (0 pts) Mobility Assist Device Used No (0 pt) Altered Elimination No (0 pt) Score/Fall Risk Level 0 - 2 = Low Risk Maintained a safe environment, Hourly rounding (assess needs \T\ fall precautionary measures) done. Abuse screen: Denies threats or abuse. Denies injuries from another. Nutritional screening: No deficits noted. Tuberculosis screening: No symptoms or risk factors identified. Assessment: 18:12 General: see triage assessment. kj2 18:15 Cardiovascular: Rhythm is sinus rhythm. Respiratory: Airway Respiratory effort is kj2 unlabored, Breath sounds with wheezes bilaterally. 19:20 Reassessment: Patient appears in no apparent distress at this time. Patient and/or kj2 family updated on plan of care and expected duration. Pain level reassessed. Patient is alert, oriented x 3, equal unlabored respirations, skin warm/dry/pink. 20:30 Reassessment: Patient appears in no apparent distress at this time. Patient and/or kj2 family updated on plan of care and expected duration. Pain level reassessed. Patient is alert, oriented x 3, equal unlabored respirations, skin warm/dry/pink. 21:11 Reassessment: Patient appears in no apparent distress at this time. Patient and/or kj2 family updated on plan of care and expected duration. Pain level reassessed. Patient is alert, oriented x 3, equal unlabored respirations, skin warm/dry/pink. 22:15 Reassessment: Patient appears in no apparent distress at this time. Patient and/or kj2 family updated on plan of care and expected duration. Pain level reassessed. Patient is alert, oriented x 3, equal unlabored respirations, skin warm/dry/pink. 22:56 Reassessment: Patient appears in no apparent distress at this time. Patient and/or kj2 family updated on plan of care and expected duration. Pain level reassessed. Vital Signs: 18:09 BP 170 / 79; Pulse 77; Temp 98.2; Pulse Ox 98% on 3 lpm NC; Weight 44.45 kg; Height 5 kj2 ft. 1 in. ; 19:20 BP 104 / 66; Pulse 79; Resp 18; Pulse Ox 97% on 3 lpm NC; kj2 20:30 BP 156 / 61; Pulse 64; Resp 18; Pulse Ox 100% on R/A; kj2 21:12 BP 150 / 57; Pulse 74; Resp 20; Pulse Ox 100% on R/A; kj2 22:56 BP 123 / 58; Pulse 82; Resp 20; Pulse Ox 100% ; kj2 18:09 Body Mass Index 18.52 (44.45 kg, 154.94 cm) kj2 ED Course: 18:03 Patient arrived in ED. eb 18:04 Hao Topete PA-C is PHCP. cp 18:04 Gatito Stanley MD is Attending Physician. cp 18:05 Edna Layne, AMY is Primary Nurse. kj2 18:12 Triage completed. kj2 18:12 Patient has correct armband on for positive identification. Provided Education on: call kj2 light. 18:21 XRAY Chest (1 view) In Process Unspecified. EDMS 18:29 Initial lab(s) drawn, by me, sent to lab. Inserted saline lock: 22 gauge in left db forearm, using aseptic technique. Blood collected. Flushed with 10 mL NS. 19:31 Hao Joyce MD is Attending Physician. cp 20:50 Terry Askew, AMY is Hospitalizing Provider. cp 22:56 Assisted to bedside commode. kj2 23:11 No provider procedures requiring assistance completed. Patient admitted, IV remains in cp4 place. Administered Medications: 18:23 Drug: Levalbuterol Inhalation 1.25 mg Inhalation once Route: Inhalation; kj2 18:23 Drug: Ipratropium Inhalation Aerosol 0.5 mg Inhalation once Route: Inhalation; kj2 19:50 Drug: MethylPrednisoLONE IVP 80 mg IVP once Route: IVP; Site: left forearm; kj2 19:56 Not Given (Physician Discretion): rocephin1 grams IV at calculated rate once; Given cp slow IV push per pharmacy instructions 20:57 Drug: Rocephin IV 500 mg IV at calculated rate once; Given slow IV push per pharmacy kj2 instructions Route: IV; Rate: calculated rate; Site: left forearm; 20:57 Drug: Ciprofloxacin PO 250 mg PO once Route: PO; kj2 Outcome: 20:51 Decision to Hospitalize by Provider. cp 23:11 Admitted to Med/surg accompanied by tech, via stretcher, room 212, with oxygen, with cp4 chart, 23:11 Condition: stable 23:11 Instructed on the need for admit, 23:12 Patient left the ED. cp4 Signatures: Dispatcher [employer] EDMS Hao Topete PA-C PA-C cp Botello, Elizabeth eb Benton, Danielle, RN RN Elisa Lemon cp4 Edna Layne RN RN kj2
--- NOTE | 2024-11-18 20:51 | EDPHYS ---
Physician Documentation [facility] Name: Madiha Breaux Age: 89 yrs Sex: Female : 1935 Arrival Date: 11/18/2024 Time: 17:45 Bed 16 Private MD: ED Physician Hao Joyce HPI: 11/18 18:10 This 89 yrs old Female presents to ER via EMS with complaints of Breathing Difficulty. cp 18:10 The patient has shortness of breath at rest. Onset: The symptoms/episode began/occurred cp today. 18:10 Duration: The symptoms are continuous, and are steadily getting worse. cp 18:10 Associated signs and symptoms: Pertinent negatives: chest pain, non-productive cough, cp productive cough, fever, vomiting. Severity of symptoms: in the emergency department the symptoms are unchanged despite home interventions. Historical: - Allergies: 21:13 Codeine; kj2 21:13 Demerol; kj2 21:13 Fentanyl; kj2 21:13 lamital; kj2 21:13 Lidocaine; kj2 21:13 meperidine; kj2 21:13 Morphine; kj2 21:13 [place]; kj2 21:13 PENICILLINS; kj2 21:13 PORK/PORCINE PRODUCT DERIVATIVES; kj2 21:13 Sulfa (Sulfonamide Antibiotics); kj2 - PMHx: 21:13 Atrial fibrillation; C-diff; COPD; CVA; Myocardial infarction; Pacemaker; kj2 - Immunization history:: Adult Immunizations unknown. - Infectious Disease History:: Denies. CDIFF, . - Social history:: Smoking status: unknown. ROS: 18:15 Constitutional: Negative for chills, fever, cp 18:15 Eyes: Negative for injury, pain, redness, and discharge, cp 18:15 ENT: Negative for drainage from ear(s), ear pain, sore throat, difficulty swallowing, difficulty handling secretions, 18:15 Cardiovascular: Negative for chest pain, edema, palpitations, 18:15 Respiratory: Positive for shortness of breath, at rest. 18:15 Abdomen/GI: Negative for abdominal pain, vomiting, diarrhea, constipation, 18:15 : Positive for urinary symptoms, hematuria, burning with urination, 18:15 Skin: Negative for rash, 18:15 Neuro: Positive for weakness, Negative for altered mental status, 18:15 All other systems are negative, Exam: 18:15 Head/Face: Normocephalic, atraumatic. cp 18:15 Constitutional: The patient appears in no acute distress, alert, awake, non-diaphoretic, non-toxic, well developed, well nourished, frail, uncomfortable, 18:15 Eyes: Periorbital structures: appear normal, Pupils: equal, round, and reactive to light and accomodation, Extraocular movements: intact throughout, Conjunctiva: normal, no exudate, no injection, Sclera: no appreciated abnormality, Lids and lashes: appear normal, bilaterally, 18:15 ENT: External ear(s): are unremarkable, Nose: is normal, Mouth: Lips: dry, Oral mucosa: moist, Posterior pharynx: Airway: no evidence of obstruction, patent, 18:15 Neck: ROM/movement: is normal, is supple, no meningismus, no nuchal rigidity, 18:15 Chest/axilla: Inspection: normal, 18:15 Cardiovascular: Rate: normal, Rhythm: irregular, 18:15 Respiratory: the patient does not display signs of respiratory distress, Respirations: labored breathing, that is mild, Breath sounds: decreased breath sounds, that are mild, throughout, stridor, is not appreciated, wheezing: that is mild, is heard diffusely, 18:15 Abdomen/GI: Inspection: abdomen appears normal, Bowel sounds: active, all quadrants, Palpation: abdomen is soft and non-tender, in all quadrants, 18:15 Back: pain, that is mild, of the low back area, ROM is painful, with all movement, 18:15 Skin: no rash present. 18:15 Neuro: Orientation: to person, place, situation, Mentation: able to follow commands, Motor: moves all fours, no focal deficits, Sensation: no obvious gross deficits, 19:10 ECG was reviewed by the Attending Physician. cp Vital Signs: 18:09 BP 170 / 79; Pulse 77; Temp 98.2; Pulse Ox 98% on 3 lpm NC; Weight 44.45 kg; Height 5 kj2 ft. 1 in. ; 19:20 BP 104 / 66; Pulse 79; Resp 18; Pulse Ox 97% on 3 lpm NC; kj2 20:30 BP 156 / 61; Pulse 64; Resp 18; Pulse Ox 100% on R/A; kj2 21:12 BP 150 / 57; Pulse 74; Resp 20; Pulse Ox 100% on R/A; kj2 22:56 BP 123 / 58; Pulse 82; Resp 20; Pulse Ox 100% ; kj2 18:09 Body Mass Index 18.52 (44.45 kg, 154.94 cm) kj2 MDM: 18:10 Medical Screening Exam initiated cp 20:55 Data reviewed: vital signs, nurses notes, lab test result(s), EKG, radiologic studies, cp and as a result, I will admit patient. 20:55 Differential diagnosis: Bronchitis pneumonia, Sepsis sepsis, uti, respiratory failure. cp Management of patient was discussed with the following: Hospitalist: MR Askew BATTER OUT will admit after discussion. I considered the following discharge prescriptions or medication management in the emergency department Medications were administered in the Emergency Department. See MAR. Care significantly affected by the following chronic conditions: Chronic Obstructive Pulmonary Disease. Counseling: I had a detailed discussion with the patient and/or guardian regarding the historical points, exam findings, and any diagnostic results supporting the discharge/admit diagnosis, lab results, radiology results. 11/18 18:06 Order name: Basic Metabolic Panel; Complete Time: 19:31 cp 11/18 19:32 Interpretation: Normal except: CO2 33; BUN 29; GFR 71. cp 11/18 18:06 Order name: CBC with Diff; Complete Time: 19:31 cp 11/18 20:34 Interpretation: Normal except: MILADYS% 76.8; LYM% 12.6. cp 11/18 18:06 Order name: LFT's; Complete Time: 19:31 cp 11/18 20:34 Interpretation: Normal except: BILIT 1.1; BILID 0.3; ALB 3.2; GLOB 3.9; A/G 0.8. cp 11/18 18:06 Order name: Magnesium; Complete Time: 19:31 cp 11/18 18:06 Order name: NT PRO-BNP; Complete Time: 19:31 cp 11/18 18:06 Order name: PT-INR; Complete Time: 19:31 cp 11/18 20:34 Interpretation: Reviewed. cp 11/18 18:06 Order name: Troponin HS; Complete Time: 19:31 cp 11/18 18:06 Order name: UA Rfx Mario Cult if indicated; Complete Time: 19:31 cp 11/18 19:32 Interpretation: Normal except: [facility] Extremely Turbid; UBLD 3+ (OVER); UPH 7.5; UPROT cp 2+; UUROB 1+; UESTR 250; UWBC >50; URBC >50; UWBC Clump Many. 11/18 19:08 Order name: Urine Culture EDMS 11/18 18:06 Order name: XRAY Chest (1 view); Complete Time: 19:31 cp 11/18 18:06 Order name: EKG; Complete Time: 18:07 cp 11/18 18:06 Order name: Cardiac monitoring; Complete Time: 18:55 cp 11/18 18:06 Order name: EKG - Nurse/Tech; Complete Time: 18:55 cp 11/18 18:06 Order name: IV Saline Lock; Complete Time: 18:47 cp 11/18 18:06 Order name: Labs collected and sent; Complete Time: 18:47 cp 11/18 18:06 Order name: O2 Per Protocol; Complete Time: 18:47 cp 11/18 18:06 Order name: O2 Sat Monitoring; Complete Time: 18:47 cp 11/18 20:13 Order name: PO challenge; Complete Time: 20:20 cp EC:10 Rate is 79 beats/min. Rhythm is irregular. QRS interval is normal at 72 msec. QT cp interval is normal. T waves are Inverted in leads II, III, V3. Interpreted by me. Reviewed by me. Administered Medications: 18:23 Drug: Levalbuterol Inhalation 1.25 mg Inhalation once Route: Inhalation; kj2 18:23 Drug: Ipratropium Inhalation Aerosol 0.5 mg Inhalation once Route: Inhalation; kj2 19:50 Drug: MethylPrednisoLONE IVP 80 mg IVP once Route: IVP; Site: left forearm; kj2 19:56 Not Given (Physician Discretion): rocephin1 grams IV at calculated rate once; Given cp slow IV push per pharmacy instructions 20:57 Drug: Rocephin IV 500 mg IV at calculated rate once; Given slow IV push per pharmacy kj2 instructions Route: IV; Rate: calculated rate; Site: left forearm; 20:57 Drug: Ciprofloxacin PO 250 mg PO once Route: PO; kj2 Disposition Summary: 11/18/24 20:51 Hospitalization Ordered Notes: Hospitalization Status: Inpatient Admission cp Provider: Terry Askew cp Location: Telemetry/MedSurg (Inpatient) cp Condition: Stable cp Problem: new cp Symptoms: have improved cp Bed/Room Type: Standard cp Room Assignment: 212(11/18/24 22:30) vk Diagnosis - COPD/ Chronic obstructive pulmonary disease with (acute) exacerbation cp - UTI/ Urinary tract infection, site not specified cp - Unspecified atrial fibrillation cp Forms: - Medication Reconciliation Form cp - SBAR form cp - Leadership Thank You Letter cp Addendum: 11/21/2024 06:53 Co-signature as Attending Physician, Hao Joyce MD I agree with the assessment and c saldana plan of care. Signatures: Dispatcher [employer] EDHao Rios MD MD cha Page, Corey, PA-C PA-C Adelita Savage Krystal, RN RN kj2 Corrections: (The following items were deleted from the chart) 11/18 22:30 20:51 cp vk
[2024-11-18] MEDS ORDERED: CIPROFLOXACIN HCL 500 MG TAB ONE (20:52)
[2024-11-18] MEDS ORDERED: CEFTRIAXONE 500 MG/VIAL ONE (20:52)
[2024-11-18] MEDS ORDERED: IPRATROPIUM BROM 0.5MG/2.5ML NEB PRN (22:25)
[2024-11-18] MEDS ORDERED: ALBUTEROL 2.5 MG/3 ML NEB SOL NEB PRN (22:26)
[2024-11-18] MEDS ORDERED: ACETAMINOPHEN 325 MG TABLET PO PRN (22:26)
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
[2024-11-19] MEDS: ARFORMOTEROL TARTRATE 15 MCG/2 ML VIAL.NEB NEB SCH (07:00)
[2024-11-19 07:15] LABS: Absolute Lymphocytes (CBC) 0.6 K/uL (0.7-4.9); Hematocrit 35.6 % (36.0-45.0); Hemoglobin 12.4 g/dL (12.0-15.0); MCH 30.8 pg (27.0-35.0); MCHC 34.7 g/dL (32.0-36.0); MCV 88.7 fL (80-100); MPV 8.1 fL (7.6-11.3); Nucleated RBC Absolute Count 0.0 (0-0); Nucleated Red Blood Cells % 0.1 % (0-0); RBC Red Blood Cell Count 4.01 M/uL (3.86-4.86); White Blood Count 3.40 thou/uL (4.3-10.9)
[2024-11-19 07:35] LABS: ALT/SGPT 21.0 U/L (13-56); AST/SGOT 17.0 U/L (15-37); Albumin 3.1 g/dL (3.4-5.0); Albumin/Globulin Ratio 0.8 (1.1-1.8); Alkaline Phosphatase 88.0 U/L (45-117); Anion Gap 5.9 mEq/L (5.0-15.0); BUN Blood Urea Nitrogen 30.0 mg/dL (7-18); Globulin 3.7 g/dL (2.3-3.5); Glucose Level 145.0 mg/dL (74-106); Magnesium 2.1 mg/dL (1.6-2.4); Potassium 3.9 mEq/L (3.5-5.1)
[2024-11-19] MEDS: CEFTRIAXONE 1,000 MG in NA CHLORIDE 0.9% 50 ML IVPB SCH (10:09)
[2024-11-19] MEDS: DABIGATRAN 75 MG CAP PO SCH (10:09)
[2024-11-19] MEDS: SERTRALINE HCL 50 MG TAB PO SCH (10:10)
[2024-11-19] MEDS: predniSONE 10 MG TAB PO SCH (10:10)
[2024-11-19] MEDS: ENOXAPARIN 40 MG/0.4 ML SQ SCH (10:12)
[2024-11-19] MEDS ORDERED: ALBUTEROL 2.5 MG/3 ML NEB SOL NEB PRN (13:38)
[2024-11-19] MEDS: LACTOBACILLUS/ACIDOPHILUS TAB PO SCH (16:35)
[2024-11-19] MEDS: NA CHLORIDE 0.9% 1,000 ML IV SCH (16:35)
[2024-11-19] MEDS: ZOLPIDEM TARTRATE 10 MG TABLET PO SCH (20:45)
[2024-11-19] MEDS: BREXPIPRAZOLE 1 MG PO SCH (20:49)
[2024-11-20 06:25] LABS: Absolute Lymphocytes (CBC) 1.2 K/uL (0.7-4.9); Hematocrit 31.0 % (36.0-45.0); Hemoglobin 10.5 g/dL (12.0-15.0); MCH 30.5 pg (27.0-35.0); MCHC 33.9 g/dL (32.0-36.0); MCV 90.0 fL (80-100); MPV 8.8 fL (7.6-11.3); Nucleated RBC Absolute Count 0.0 (0-0); Nucleated Red Blood Cells % 0.0 % (0-0); RBC Red Blood Cell Count 3.44 M/uL (3.86-4.86); White Blood Count 8.30 thou/uL (4.3-10.9)
[2024-11-20 06:47] LABS: ALT/SGPT 17.0 U/L (13-56); AST/SGOT 11.0 U/L (15-37); Albumin 2.7 g/dL (3.4-5.0); Albumin/Globulin Ratio 0.9 (1.1-1.8); Alkaline Phosphatase 81.0 U/L (45-117); Anion Gap 8.6 mEq/L (5.0-15.0); BUN Blood Urea Nitrogen 41.0 mg/dL (7-18); Globulin 3.1 g/dL (2.3-3.5); Glucose Level 107.0 mg/dL (74-106); Magnesium 2.1 mg/dL (1.6-2.4); Potassium 3.6 mEq/L (3.5-5.1)
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
[2024-11-20] MEDS: DOXYCYCLINE 100 MG CAP PO SCH (08:45)
[2024-11-20] MEDS: POTASSIUM CL SA 10 MEQ TAB PO ONE (08:47)
[2024-11-20] MEDS: predniSONE 20 MG TAB PO SCH (08:47)
[2024-11-20 14:25] LABS: Sqamous Epithelial <5 /HPF (None Seen); Urine Crystals Unidentified Few /HPF (None Seen); Urine Culture Reflex Order REFLEXED; Urine Microscopic Reflex YN ORDER UMIC; Urine WBC Clump Rare /HPF (None Seen); Urine Yeast (Budding) Trace /HPF (None Seen)
[2024-11-21 06:30] LABS: Anion Gap 8.0 mEq/L (5.0-15.0); BUN Blood Urea Nitrogen 39.0 mg/dL (7-18); Glucose Level 142.0 mg/dL (74-106); Potassium 4.0 mEq/L (3.5-5.1)
[2024-11-21 08:38] VITALS: O2SAT 98
[2024-11-21 12:51] VITALS: BP 154/65; TEMP 97.7
== END 2024-11-21 13:45 | disposition home or self-care (01) | DRG 191 ==
LOC: ER 17:45 → ERHOLD 22:22 → 2ND 22:55
PROVIDERS: ADMIT Hospitalist; ATTEND Hospitalist
DX: J44.1 Chronic obstructive pulmonary disease with (acute) exacerbation (principal); I50.32 Chronic diastolic (congestive) heart failure; N39.0 Urinary tract infection, site not specified; I11.0 Hypertensive heart disease with heart failure; F32.A Depression, unspecified; I48.91 Unspecified atrial fibrillation; F51.04 Psychophysiologic insomnia; I25.2 Old myocardial infarction; G47.33 Obstructive sleep apnea (adult) (pediatric); I25.10 Atherosclerotic heart disease of native coronary artery without angina pectoris; Z66 Do not resuscitate; Z88.0 Allergy status to penicillin; Z88.2 Allergy status to sulfonamides; Z88.5 Allergy status to narcotic agent; Z95.0 Presence of cardiac pacemaker; Z88.8 Allergy status to other drugs, medicaments and biological substances; Z86.73 Personal history of transient ischemic attack (TIA), and cerebral infarction without residual deficits; Z99.81 Dependence on supplemental oxygen; Z79.02 Long term (current) use of antithrombotics/antiplatelets; Z79.899 Other long term (current) drug therapy; Z90.710 Acquired absence of both cervix and uterus
CPT/HCPCS: 36415; 71045; 80048; 80053; 80076; 81001; 83735; 83880; 84484; 85025; 85610; 87077; 87086; 87088; 87186; 93005; 94640; 96374; 96375; 97116; 97161; 99285; J0696; J1650; J2919; J7030; J7512; J7605; J7614; J7644